=== PATIENT | female | born 1955 | race Caucasian/White ===

== ENCOUNTER 2019-03-06 14:00 | Outpatient (RCR) | payer SELFPAY ==
--- NOTE | 2019-01-20 13:52 | HP.OTEVAL_ITS ---
Patient's Visit Information MARTINE LANDAVERDE is a 63 year old F, referred to Occupational Therapy by Tyron Sams PA-C, with a diagnosis of CMC arthoplasty. Date of Evaluation: 01/20/19 Occupational Therapist: Emma Santa, OTR/L - Subjective Subjective: Martine Alexandra arrived at OT evaluation and s/p CMC arthroplasty. She is 4 weeks post-op. 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 She noted she is off work until March. - ADLs Dressing: Bra, Overhead shirt, Button shirt, Pants, Socks, Shoes, Necklace, Earrings Fasteners: Tie shoes, Buttons, Snaps, [place], Belt Eating: Use silverware, Cut food Bathing: Handle washcloth & soap, Wash hair Toileting: Manage clothing Grooming: Squeeze toothpaste on, [place] teeth Kitchen: Chop with knife, Peel fruits & vegetables, Open jars, Open bottle caps, Ziplock bags, Lift gallon of milk, Pour from pitcher, Take dish out of oven Household: Vacuum, Sweep/mop, Laundry Yard: [place], [place], Use pruners Miscellaneous: Start car, Open medication bottle, Hold change, Open doors/Including car door, Do crafts, Sew, Bandar/knit/needlework, Drive Comments: Limited in work with toddlers. - Pain L CMC 3 Pain Intensity Range: 3, 7 - ROM Shoulder: WFL Elbow: WFL Forearm: WFL Wrist: flexion R 0-55, L 0-85 ; ext R 0-47, L 0-30 CMC: opposition R 0-19, L 0-14- unable to completed thumb opposition to PF with MP: R 0-80, L -20-0-10 IP: R 0-53, L 0-51 Radial Abduction: R 0-47, L 0-39 MP: WFL PIP: WFL DIP: WFL ROM Comments: Increased collapsing of MP joint. Unable to completed thumb opposition to PF on L side only. - Strength Train Planner: R 60, L 31 lbs Lateral Pinch: R 9, L 1 lbs Tripod Pinch: Held Tip-to-Tip Pinch: Held - Edema Proximal Phalanx: R 6.5 cm, 7.3 cm - Quick DASH-Disab of Arm,Shoulder& Hand Quick DASH Score: 70.0000 - Goals Goal:: Олег to increase L red hat linux engineer and fx pinches to 60% of R red hat linux engineer 4/5 trials 80% of the time to promote increased strength and stability of L CMC by d/c. Goal:: Олег to have no more than 1/10 painw ith repetitive movement 4/5 trials 80% of the time to promote returning to ADL?IADLs at PLOF by d/c. Goal:: Олег to completed daily scar massage to promote decrease risk of increased scar tissue 4/5 trials 80% of the time by d/c. Goal:: Олег to be (I) to complete correct positioning of CMC to and thumb mechanics to promote increased joint inetgrity 4/5 trials 80% of the time by d.c. Goal:: Олег to be (I) to return to all ADl/IADls including cutting and peel food, compleiting sewing tasks,a nd completed gardening tasks 4/5 trials 80% of the time with good thumb mechanics and joint protection techniques 4/5 trials 80% of the time by d/c. Goal:: Олег to be mod I to complete daily HEP with PRE 4/5 trials 80% of the time to promote return to PLOF by d/c. - Rehabilitation General Assessment: Олег arrived and is s/p CMC arthroplasty performed by Dr. Shah end of December. She is four weeks post op. Bath exhibit increased hyperextension of MP joint with increased pain with movements. Structures of thumb are still healing and she exhibits decreased strength, ROM, and ability to complete functional and leisure interests. Skilled OT warranted for 2x weekly for 4 weeks to promote increased ROM, Strength, and general ability to complete ADL/IADls. Will likely need to see for longer than 4 weeks but will reassess post 4 weeks of skilled therapy. Rehabilitation Potential: Good - Anticipated Interventions Anticipated Interventions: A/AAROM/PROM, Strengthening, Edema Control, Scar Care, Massage, Desensitization, Wound Care, Modalities, Orthoses, Joint Protection/Energy Conservation, Ergonomic Education, Fine Motor Coord/Bradley, ADL Training, Caregiver Training, Home Program - Visit Plan Frequency: 2x /Week Duration: 4 Weeks General Plan: OT to work on edema management as needed, pain management as needed, scar massage, PRE for strength, ROM, and thumb mechanics and po sitioning to return to ADL/IADls at PLOF. TEXT: Thank you for the opportunity to evaluate your patient. For Medicare and Medicare HMO plans, please review the plan of care and approve it. It will need to be FAXED BACK to us at [phone] for Medicare purposes. Please let me know if there are questions or concerns regarding this plan of care. Physician Signature: Date:
--- NOTE | 2019-03-06 18:03 | HP.OTREVAL ---
Tyron Sams PA-C, It has been my pleasure to treat EPI LANDAVERDE over the last 5 visits for CMC arthoplasty. Please see the progress note below for an update on the occupational therapy plan of care! Subjective: Олег arrived at appointment and noted today might be last day due to lack of insurance coverage. She noted she feels she has made 60% improvement. She noted pain consistently around 2/10. She is 9 weeks post op. Objective/Function: Completed measurements today of 03/06/19: RoM. Thumb. - opposition: R WFL, L 0-47. - radial adduction: R WFL, L 0-45. Strength: automotive design drafter R WFL, L 40. lateral R WFL, L 2. tripod R WFL, L 3. She has progressed since initial evaluation. Significantly hyperextension noted at MP of L thumb. OT attempted to make oval 8 to promote decrease collapse and reduce discomfort. She is to trial. Plan Frequency: 1x/Week Duration: 4 Weeks Visits in this POC: 8 Plan: Follow up as needed with insurance coverage. She completed 5/8 appointments and is currently 9 weeks post op. Will keep chart open for the next month. If she does not return to due to finances will d/c'd. She is to call questions/concerns and has OT card to email/call as needed. HEP has been set up over the course of treatment to promote progressing with strengthening tasks. Goals - Goals Goal:: Олег to increase L automotive design drafter and fx pinches to 60% of R automotive design drafter 4/5 trials 80% of the time to promote increased strength and stability of L CMC by d/c. Goal:: Олег to have no more than 1/10 painw ith repetitive movement 4/5 trials 80% of the time to promote returning to ADL?IADLs at OF by d/c. Goal:: Олег to completed daily scar massage to promote decrease risk of increased scar tissue 4/5 trials 80% of the time by d/c. Goal:: Олег to be (I) to complete correct positioning of CMC to and thumb mechanics to promote increased joint inetgrity 4/5 trials 80% of the time by d.c. Goal:: Олег to be (I) to return to all ADl/IADls including cutting and peel food, compleiting sewing tasks,a nd completed gardening tasks 4/5 trials 80% of the time with good thumb mechanics and joint protection techniques 4/5 trials 80% of the time by d/c. Goal:: Олег to be mod I to complete daily HEP with PRE 4/5 trials 80% of the time to promote return to PLOF by d/c. Anticipated Interventions Anticipated Interventions: A/AAROM/PROM, Strengthening, Edema Control, Scar Care, Massage, Desensitization, Wound Care, Modalities, Orthoses, Joint Protection/Energy Conservation, Ergonomic Education, Fine Motor Coord/Bradley, ADL Training, Caregiver Training, Home Program Please do not hesitate to contact me at [phone] by phone or if you have questions or concerns regarding this new plan of care! Sincerely, Emma Santa, OTR/L
--- NOTE | 2019-05-01 12:31 | HP.OTDCSUM_ITS ---
HP - OT D/C Summary It has been my pleasure to treat EPI LANDAVERDE under orders from Tyron Sams PA-C, for the diagnosis of CMC arthoplasty for a total of 5 visit(s). Please see the following information for a summary of their discharge status. - Overall Improvement % Improvement: 60 - Objective Objective/Function: Completed measurements today of 03/06/19: RoM. Thumb. - opposition: R WFL, L 0-47. - radial adduction: R WFL, L 0-45. Strength: frontload driver R WFL, L 40. lateral R WFL, L 2. tripod R WFL, L 3. She has progressed since initial evaluation. Significantly hyperextension noted at MP of L thumb. OT attempted to make oval 8 to promote decrease collapse and reduce discomfort. She is to trial. - Goals Patient Goals: Regain Mobility, Regain Strength, Decrease Pain, Return to Work, Decrease Swelling/Stiffness, Improve Fine Motor Skills, Use Hand/Wrist/Arm Normally Again, Sleep Better, Be More Independent in ADLS, Decrease Sensitivity, Resume Former Household Responsibilities (Cooking,Cleaning,Yard, etc.), Resume Hobbies Goal:: Олег to increase L frontload driver and fx pinches to 60% of R frontload driver 4/5 trials 80% of the time to promote increased strength and stability of L CMC by d/c. Goal:: Олег to have no more than 1/10 painw ith repetitive movement 4/5 trials 80% of the time to promote returning to ADL?IADLs at PLOF by d/c. Goal:: Олег to completed daily scar massage to promote decrease risk of increased scar tissue 4/5 trials 80% of the time by d/c. Goal:: Олег to be (I) to complete correct positioning of CMC to and thumb mechanics to promote increased joint inetgrity 4/5 trials 80% of the time by d.c. Goal:: Олег to be (I) to return to all ADl/IADls including cutting and peel food, compleiting sewing tasks,a nd completed gardening tasks 4/5 trials 80% of the time with good thumb mechanics and joint protection techniques 4/5 trials 80% of the time by d/c. Goal:: Олег to be mod I to complete daily HEP with PRE 4/5 trials 80% of the time to promote return to PLOF by d/c. - Plan Plan: She was to follow up as needed with insurance coverage; no follow up scheduled and chart will be d/c'd. She completed 5/8 appointments and is currently 9 weeks post op. Will keep chart open for the next month. If she does not return to due to finances will d/c'd. She is to call questions/concerns and has OT card to email/call as needed. HEP has been set up over the course of treatment to promote progressing with strengthening tasks. - D/C Information If there are questions or concerns regarding this patient's occupational therapy, please fell free to call me at [phone]. Thank you for the referr al of this patient. Sincerely, Emma Santa, OTR/L
== END 2019-03-06 19:00 | disposition home or self-care (01) ==
LOC: OT 14:00
PROVIDERS: Family Provider Internal Medicine; PCP Internal Medicine; Referring Provider Physician Assistant Surgical; Visit Provider Physician Assistant Surgical
DX: M18.12 Unilateral primary osteoarthritis of first carpometacarpal joint, left hand (principal)
CPT/HCPCS: 97110; 97166; 97530; 97760

== ENCOUNTER 2020-06-13 09:21 | Outpatient (RCR) | payer MEDICARE, SELFPAY ==
[2016-11-19 15:11] VITALS: BMI 25.9
[2020-06-13] MEDS: COVID-19 VACC, MRNA(PFIZER)/PF 30 MCG/0.3 ML SYRINGE IM (13:16)
[2020-07-04] MEDS: COVID-19 VACC, MRNA(PFIZER)/PF 30 MCG/0.3 ML SYRINGE IM (13:22)
== END 2020-09-10 23:59 ==
LOC: IMMUN 09:21
PROVIDERS: PCP Internal Medicine; Referring Provider Family Medicine; Visit Provider Family Medicine
DX: Z23 Encounter for immunization (principal)
CPT/HCPCS: 0001A; 0002A; 91300

== ENCOUNTER 2023-10-01 06:00 | Day surgery (SDC) | payer MEDICARE, OTHER, SELFPAY ==
[2023-10-01] VITALS (14 sets, daily range): BP systolic 101–127; BP diastolic 53–79; PULSE 69–83; RESP 16; TEMP 36.4–36.9; O2SAT 93–98; BMI 27.6
--- NOTE | 2023-10-01 06:30 | RAD_ITS ---
STUDY: X-RAY - LEFT FOOT CLINICAL: Female, 67 years old. LEFT FOOT OSTEOTOMY TECHNIQUE: 4 fluoroscopic spot films of the left foot. COMPARISON: None. FINDINGS: Normal visualized tarsal bones. Normal visualized tarsometatarsal articulations. There is degenerative arthrosis at the first MTP joint. There is a fracture/deformity through the fifth metatarsal neck, with medial angulation, probably related to osteotomy. There is chronic deformity of the fifth proximal phalanx. RAD/Foot 2 Views IMPRESSION: Fracture/deformity through the fifth metatarsal neck, with medial angulation, probably related to osteotomy. Chronic deformity of the fifth proximal phalanx. Soft tissue swelling around the fifth MTP joint. Electronically Signed: Kurtis Garcia MD at 9:37 EDT ,
[2023-10-01] MEDS: Lactated Ringers 1,000 ML 15 ML IV (06:42)
--- NOTE | 2023-10-01 07:30 | PCM.PRE.AN2 ---
ASA Classification* ASA Classification ASA Classification: 2 Assessment & Plan Anesthesia* Anesthesia Assessment Anesthesia Assessment: Discussed sedation and/or anesthesia options, risks, benefits, and alternatives with patient/parents/legal guardian/POA. Questions invited. The patient/parents/legal guardian/POA seems to understand and agrees to proceed with anesthesia plan. Reviewed the physical assessment, medical history, allergy history and patient home medications list prior to surgery/procedure/anesthetic and documented any changes. Performed airway and anesthesia risk assessments. 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 When Was Last Pacemaker Check QUESTION #4 FULL TEXT: You/Your Family Experience fever (hyperthermia) with Anesthesia Last Oral Intake Last Oral intake: Last Oral Intake NPO since 00:00 10/01/23 06:46 Meds taken in AM with sips of Yes 10/01/23 06:46 water? Meds patient instructed to lisinopril 10/01/23 06:46 take am of surgery tramadol gabapentin PONV PONV - aircraft structure mechanic: PONV - aircraft structure mechanic Female Yes 09/24/23 09:20 HX of Motion Sickness Yes 09/24/23 09:20 HX of N/V After Surgery Yes 09/24/23 09:20 Non-Smoker Yes 09/24/23 09:20 Duration of Surgery greater Yes 09/24/23 09:20 than 60 minutes Number of Risk Factors 5 09/24/23 09:20 PONV Score Severe Risk 09/24/23 09:20 Height & Weight Height & Weight: Anesthesia: Height & Weight Height 5 ft 7 in 10/01/23 06:46 Weight: 80 kg 10/01/23 06:46 Body Mass Index (BMI) 27.6 10/01/23 06:46 Respiratory Assessment Respiratory Assessment - aircraft structure mechanic: Respiratory Tract Infection Hx - aircraft structure mechanic Hx Respiratory Tract Infection No 09/24/23 09:20 STOP Sleep Apnea STOP Sleep Apnea - aircraft structure mechanic: STOP Sleep Apnea - aircraft structure mechanic Hx Hypertension Yes: CONTROLLED WITH MED 09/24/23 09:20 Hx Sleep Apnea Yes 09/24/23 09:20 CPAP Yes 09/24/23 09:20 BIPAP No 09/24/23 09:20 Do you snore loudly (louder than talking or can be heard Do you often feel tired/ fatigued/ sleepy during daytime? Has anyone observed you stop breathing during sleep? STOP Results Positive 09/24/23 09:20 QUESTION #5 FULL TEXT : Do you snore loudly (louder than talking or can be heard through closed doors)? 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 Specify any problems Hx of Preganancy in last 3 No 09/24/23 09:20 Months Nurse Filling Out Transfusion DSCHRIBER 09/24/23 09:20 & Questions: Date: 09/24/23 09/24/23 09:20 Time: 09/24/23 09:20 Patient unable to answer at this time (ie. confused, unrespo /Reproduction History /Reproductive History - aircraft structure mechanic: /Reproductive Hx- aircraft structure mechanic Hx Now No 09/24/23 09:20 Gestational Age (in weeks): EDC: Hx Hx Para Hx Section SAB No 09/24/23 09:20 Active Medications Active Medications: Current Medications Generic Name Dose Route Start Last Admin Trade Name Freq PRN Reason Stop Dose Admin Cefazolin Sodium 2 gm/ Sodium 110 mls @ 150 mls/hr 10/01/23 07:30 Chloride IV 10/01/23 08:13 PREOP ONE Lactated Ringer's 1,000 mls @ 15 mls/hr 10/01/23 06:15 10/01/23 06:42 IV 15 mls/hr .Q48H JANI Administration PFSH Medical History Post-menopausal Depression Anxiety Arthritis Anemia High cholesterol Back pain Injury of back Injury of head and neck Non-smoker CPAP (continuous positive airway pressure) dependence History of pain when walking Cardiology follow-up encounter History of echocardiogram History of stress test Hypertension Home Medications ?Medication ?Instructions ?Recorded ?Last Taken ?Type diclofenac sodium 100 mg 75 mg PO BID 11/19/16 09/30/23 History tablet,extended release 24 hr tizanidine 4 mg tablet 4 mg PO QHS 11/19/16 09/30/23 History venlafaxine 150 mg tablet,extended 150 mg PO BID 11/19/16 09/30/23 History release 24 hr antiarthritic combination no.2 900 900 mg PO BID 12/02/20 09/30/23 History mg tablet (glucosamine-chondroitin) cholecalciferol (vitamin D3) 50 50 mcg PO DAILY 12/02/20 09/30/23 History mcg (2,000 unit) capsule ferrous gluconate 324 mg (37.5 mg 324 mg PO SUMOWEFR 12/02/20 09/29/23 History iron) tablet fluticasone propionate 50 1 spray intranasal DAILY 12/02/20 09/30/23 History mcg/actuation nasal spray,suspension (Flonase Allergy Relief) folic acid 400 mcg tablet 0.4 mg PO DAILY 12/02/20 09/30/23 History gabapentin 400 mg capsule 400 mg PO 4X/DAY 12/02/20 10/01/23 History magnesium citrate 100 mg capsule 100 mg PO DAILY 12/02/20 09/30/23 History melatonin 10 mg capsule 10 mg PO QHS PRN PRN sleep 12/02/20 09/30/23 History tramadol 50 mg tablet 50 mg PO BID PRN PRN pain 12/02/20 10/01/23 History vitamin E mixed 400 unit capsule 400 unit PO DAILY 12/02/20 09/30/23 History lisinopril 10 mg tablet 10 mg PO DAILY 08/13/21 10/01/23 History aspirin 81 mg tablet,delayed 81 mg PO DAILY 09/24/23 09/30/23 History release (Adult Low Dose Aspirin) calcium carbonate 600 mg PO QHS 09/24/23 09/30/23 History clobetasol 0.05 % topical ointment 1 applic topical MOWEFR 09/24/23 09/29/23 History rosuvastatin 5 mg tablet 5 mg PO QHS 09/24/23 Unknown History turmeric 400 mg capsule 500 mg PO DAILY 09/24/23 09/30/23 History Allergy/AdvReac Type Severity Reaction Status Date / Time Sulfa (Sulfonamide Allergy Hives Verified 09/24/23 09:13 Antibiotics) Family History Mother Heart disease Surgical History History of esophagogastroduodenoscopy (EGD) Hx of colonoscopy Hx of left cataract extraction Hx of right cataract extraction Hx of spinal surgery Hx of thumb surgery History of bunionectomy of right great toe Hx of ovarian cystectomy Hx of cervical spine surgery Hx of hand surgery History of bunionectomy of left great toe History of bunionectomy of left great toe Social History household members: spouse Smoking Status: Never smoker Review of Systems (Anesthesia) ROS Narrative System reviewed and no additional complaints, except as documented.
[2023-10-01] MEDS: Cefazolin 2 GM in 0.9% Normal Saline (100mL Bag) 100 ML IV (07:38)
[2023-10-01] MEDS: Bupivacaine Mpf 0.5% 30 ML VIAL (07:50)
--- NOTE | 2023-10-01 08:35 | PCM.POST.ANE ---
Anesthesia: Postop Eval I Current Vital Signs Temperature: 97.6 F Pulse Rate: 82 Blood Pressure: 127/65 Respiratory Rate: 16 Pulse Ox: 93 Oxygen Delivery Method: Room Air Assessment Airway patent: Yes Spontaneous unlabored respirations: Yes Mental status: Awake and Calm nausea: No Vomiting: No Anesthesia Complication: No Fluid Hydration Crystalloid volume administer (ml): 700 Total IV fluid infused: 700 Progress Note Anesthesia document: Postop Eval 1 completed: Yes
--- NOTE | 2023-10-01 08:38 | PCM.OPRPT ---
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: (4) Pain in left foot: Report of Operation Date of Procedure: 10/01/23 Pre-Operative Diagnosis: 1) pain left foot 2) dorsiflexory contracture left fifth digit 3) breaking metatarsalgia left fifth metatarsal with additional sagittal plane plantarflexion producing painful plantar prominence Post-Operative Diagnosis: Same Surgery/Procedure Performed:: 1) soft tissue contracture release and scar remodeling via Z-plasty extensor tenotomy and dorsal medial lateral capsulotomy of the fifth metatarsal phalangeal joint 2) lesser metatarsal osteotomy, left fifth metatarsal Description of Surgical Findings:: Patient has had 2 previous tailor's bunion and hammertoe contracture correction surgeries which have failed and led to a shortened fifth ray and a plantarflexed 3 deformity of the fifth ray causing a painful prominence of the fifth metatarsal head during ambulation. I discussed multiple options with the patient during the preoperative course including performing a bone lengthening procedure using a Monorail external fixator but discussed that this would only provide approximately up to 1 cm of lengthening and would take months of care. Patient refused this option. I discussed acute bone lengthening which I did additionally would limit the amount of lengthening could be performed due to soft tissue contracture and possible vascular compromise. Patient deferred this. So, it was discussed performing a floating metatarsal osteotomy to offload the fifth painful fifth metatarsal head and bring down the cocked up fifth of toe via Z-plasty extensor tenotomy and dorsal medial and lateral capsulotomy of the fifth metatarsal phalangeal joint. Patient was agreeable to this. Surgeon: Ghulam Mcclain cash register mechanic: None (krystina) Type of Anesthesia: General Special Medications: 20cc 0.5% marcaine plain Specimen's removed: none Drains: none Estimated Blood Loss (mL): minimal Description of Procedure: Patient brought back the operating placed complete supine position on the operating room table. Patient induced under general anesthesia. Well-padded left ankle tourniquet was applied. Preoperatively 20 cc of half percent Marcaine plain were injected in a reverse Hugo block technique. Left lower extremity scrubbed prepped draped using typical aseptic fashion. Once cleared by anesthesia left lower extremity was elevated exsanguinated tourniquet was inflated to 250 mmHg Procedure #1: Z-plasty with extensor tendon tenotomy and dorsal medial lateral capsulotomy of the fifth metatarsal phalangeal joint Once cleared by anesthesia a Z-plasty was drawn along the length of the contracture spanning 2 cm. Equal length arms from the distal and proximal aspect were drawn at a less than 60 degree angle and these incisions were made with a 15 blade through epidermis into subcutaneous tissue. Blunt dissection was taken down to level of deep fascia and the flaps were undermined and mobilized without intervening any vascularity. The extensor tendon was identified including the extensor digitorum longus and brevis these were transected using a 15 blade which allowed for partial reduction of the hammertoe contracture at the fifth metatarsal phalangeal joint. Additionally using Kelikian push-up test a dorsal subtle medial and lateral fifth metatarsal phalangeal joint capsulotomy was performed using a #15 blade without incident. Additional reduction was noted at this time. To correct for the fifth metatarsal head plantar flexor deformity secondary to an Atragen iatrogenic deformity from previous tailor's bunionectomy a floating metatarsal osteotomy would be performed. Procedure #2 lesser metatarsal osteotomy, left fifth metatarsal head: A linear incision was made along the fifth metatarsal periosteum was dissected off in a transverse osteotomy was performed with a sagittal saw through and through from dorsal to plantar. The fifth metatarsal head was then mobilized in the sagittal plane and noted to offload the painful plantar area. All incisions were flushed with copious amounts of normal sterile saline and skin closure was performed exclusively using 4-0 Monocryl. Incisional site dressed with Betadine Adaptic 4 x 4's Kerlix and a Raman bandage. Patient was transported to PACU vital signs stable and vascular status intact all digits for further monitoring prior to discharge. Patient tolerated procedure and anesthesia well apparent satisfactory condition. No complications Adequate reduction fifth metatarsal toe deformity. Again this was not for lengthening purposes and patient will continue have a break and metatarsalgia.
--- NOTE | 2023-10-01 08:57 | PCM.POSTANE2 ---
Anesthesia Postop Eval I Sum Postop Eval Completion status Anesthesia document: Postop Eval 1 completed: Yes Anesthesia Postop Eval I Summary Anesthesia Postop Eval I Summary: Anesthesia Postop Eval I: Assessment Summary Airway patent Yes 10/01/23 08:37 Spontaneous unlabored Yes 10/01/23 08:37 respirations Mental status Awake,Calm 10/01/23 08:37 nausea No 10/01/23 08:37 Vomiting No 10/01/23 08:37 Anesthesia Postop Eval I: Fluid Summary Crystalloid volume administer 700 10/01/23 08:37 (ml) Colloids volume administered ( ml) Blood Product volume administered (ml) Total IV fluid infused 700 10/01/23 08:37 Anesthesia Postop Eval I: Summary Notes Anesthesia Complication No 10/01/23 08:37 Anesthesia Complication Comment: Post-operative progress note Anesthesia: Postop Eval II Evaluation Mental status: Awake Pain Level: 0 nausea: No Vomiting: No
--- NOTE | 2023-10-01 09:00 | RAD_ITS ---
STUDY: X-RAY - LEFT FOOT CLINICAL: Female, 67 years old. Left foot surgery. TECHNIQUE: 2 views of the left foot. COMPARISON: None. FINDINGS: Normal talus, calcaneus, and tarsal bones. Normal visualized subtalar, talonavicular, calcaneocuboid, tarsal and tarsometatarsal articulations. Normal metatarsi. Normal metatarsophalangeal joint of the great toe. Normal tibial and fibular sesamoid bones. Normal interphalangeal joint of the great toe. Normal phalanges of the great toe. Normal second through fourth metatarsophalangeal joints. Normal interphalangeal joints and phalanges of the second through fourth toes. There is a smooth transverse fracture/deformity through the fifth metatarsal neck, with medial angulation, which could be posttraumatic/surgical. There is also chronic deformity of the fifth proximal phalanx. There is soft tissue swelling around the fifth MTP joint. RAD/Foot 2 Views IMPRESSION: Smooth transverse fracture/deformity through the fifth metatarsal neck, with medial angulation, which could be posttraumatic/surgical. Chronic deformity of the fifth proximal phalanx. Soft tissue swelling around the fifth MTP joint. Electronically Signed: Kurtis Garcia MD at 9:28 EDT ,
== END 2023-10-01 11:44 | disposition home or self-care (01) ==
LOC: SDC 06:01 → AC 06:03
PROVIDERS: PCP Internal Medicine; Referring Provider Podiatrist; Visit Provider Podiatrist
PROC: (CPT 28234; principal; 2023-10-01 07:15)
DX: M20.42 Other hammer toe(s) (acquired), left foot (principal); M24.575 Contracture, left foot; G47.33 Obstructive sleep apnea (adult) (pediatric); D64.9 Anemia, unspecified; F32.A Depression, unspecified; F41.9 Anxiety disorder, unspecified; E78.00 Pure hypercholesterolemia, unspecified; I10 Essential (primary) hypertension; Z79.899 Other long term (current) drug therapy
CPT/HCPCS: 28234; 28270; 28308; 01470; 73620; 76000; J7120; J2405

== ENCOUNTER 2024-06-21 13:00 | Outpatient (CLI) | payer MEDICARE, OTHER, SELFPAY ==
--- NOTE | 2024-06-27 13:00 | EKG12_ITS ---
Test Reason : PREOP Blood Pressure : */* mmHG Vent. Rate : 82 BPM Atrial Rate : 82 BPM P-R Int : 176 ms QRS Dur : 100 ms QT Int : 390 ms P-R-T Axes : 60 207 4 degrees QTcB Int : 455 ms Normal sinus rhythm Possible Right ventricular hypertrophy Possible Lateral infarct , age undetermined Inferior infarct , age undetermined Abnormal ECG Confirmed by AVIS AGUILAR, KENDALL ([id number]), assistant editor TORIBIO ROBB ([id number]) on 06/28/2024 7:19:40 AM Referred By: Yon Shah Confirmed By: KENDALL ALBARRAN MD
[2024-06-27 13:33] LABS: Absolute Lymphocyte Count 2.31 X10^3/uL (0.83-4.51); Absolute Neutrophil Count 10.2 X10^3/uL (2.0-7.7); Basophil# 0.03 X10^3/uL; Basophil% 0.2 % (0-1); Eosinophil# 0.07 X10^3/uL; Eosinophils% 0.5 % (0-5); Hematocrit 36.7 % (37-47); Hemoglobin 11.2 g/dL (12.0-15.0); Lymphocyte # 2.31 X10^3/ul (0.83-4.51); Lymphocyte % 17.1 % (19-41); Mean Corp Hgb Conc 30.5 g/dL (32-36); Mean Corpuscular Volume 78.8 fL (81-99); Mean Platelet Vol. 8.6 fl (6.2-12.0); Monocyte# 0.85 X10^3/uL; Monocyte% 6.3 % (0-10); NRBC Flagged by Analyzer 0 % (0-5); Neutrophil # 10.16 X10^3/uL (2.7-7.7); Neutrophil % 75.5 % (47-70); Platelet Count 412 K/mm3 (150-450); RBC Distribution Width SD 39.7 fl (35.1-43.9); Red Blood Count 4.66 M/mm3 (4.2-5.4); White Blood Count 13.5 K/mm3 (4.4-11.0)
[2024-06-27 14:39] LABS: Albumin, Serum 4.3 g/dL (3.4-4.8); Anion Gap 12 (5-15); BUN 16 mg/dL (4-19); BUN/Creat Ratio 14.8 RATIO (10-20); Carbon Dioxide 22.8 mmol/L (21.0-32.0); Chloride 100 mmol/L (98-108); Creatinine, Serum 1.06 mg/dL (0.70-1.20); EST Glomerular Filtration Rate 57 (>60); Glucose 99 mg/dL (70-99); Potassium 4.2 mmol/L (3.3-5.1); Sodium Level 135 mmol/L (133-145)
[2024-06-27 15:22] LABS: Magnesium 2.4 mg/dL (1.5-2.2)
--- NOTE | 2024-06-28 10:48 | PAT.ANESEVAL ---
Pre-Assessment Diagnosis/Proposed Procedure Planned Operative Procedure(s): ROBOTIC ASSISTED RIGHT TOTAL KNEE ARTHROPLASTY Anesthesia History Anesthesia History - informatics pharmacist: Anesthesia History - informatics pharmacist Hx Hospitalization No 06/21/24 13:04 Any Problems With Anesthesia Yes: N,V IN PAST 06/21/24 13:04 Cholinesterase deficiency No 06/21/24 13:04 You/Your Family Experience No 06/21/24 13:04 fever (hyperthermia) with Relationship Recent Exposure to Contagious No 10/01/23 06:44 Disease Does patient have nerve Yes: NERVE STIMULATOR 06/21/24 13:04 stimulator Patient instructed to have device shut off --Does patient have Pacemaker or ICD? When Was Last Pacemaker Check QUESTION #4 FULL TEXT: You/Your Family Experience fever (hyperthermia) with Anesthesia Last Oral Intake Last Oral intake: Last Oral Intake NPO since Meds taken in AM with sips of water? Meds patient instructed to take am of surgery PONV PONV - informatics pharmacist: PONV - informatics pharmacist Female Yes 06/21/24 13:04 HX of Motion Sickness Yes 06/21/24 13:04 HX of N/V After Surgery Yes 06/21/24 13:04 Non-Smoker Yes 06/21/24 13:04 Duration of Surgery greater Yes 06/21/24 13:04 than 60 minutes Number of Risk Factors 5 06/21/24 13:04 PONV Score Severe Risk 06/21/24 13:04 Height & Weight Height & Weight: Anesthesia: Height & Weight Height 5 ft 7 in 04/20/24 10:48 Respiratory Assessment Respiratory Assessment - informatics pharmacist: Respiratory Tract Infection Hx - informatics pharmacist Hx Respiratory Tract Infection No 06/21/24 13:04 STOP Sleep Apnea STOP Sleep Apnea - informatics pharmacist: STOP Sleep Apnea - informatics pharmacist Hx Hypertension Yes: CONTROLLED WITH MED 06/21/24 13:04 Hx Sleep Apnea Yes 06/21/24 13:04 CPAP Yes 06/21/24 13:04 BIPAP No 06/21/24 13:04 Do you snore loudly (louder than talking or can be heard Do you often feel tired/ fatigued/ sleepy during daytime? Has anyone observed you stop breathing during sleep? STOP Results Positive 06/21/24 13:04 QUESTION #5 FULL TEXT : Do you snore loudly (louder than talking or can be heard through closed doors)? 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 Specify any problems Hx of Preganancy in last 3 No 06/21/24 13:04 Months Nurse Filling Out Transfusion DSCHRIBER 06/21/24 13:04 & Questions: Date: 06/21/24 06/21/24 13:04 Time: 13:05 06/21/24 13:04 Patient unable to answer at this time (ie. confused, unrespo /Reproduction History /Reproductive History - informatics pharmacist: /Reproductive Hx- informatics pharmacist Hx Now No 06/21/24 13:04 Gestational Age (in weeks): EDC: Hx Hx Para Hx Section SAB No 06/21/24 13:04 PFS Medical History (Updated 06/25/24 @ 08:53 by Justine Romano [facility]) Wears glasses Low iron History of IBS Heartburn Leg cramps Post-menopausal Depression Anxiety Arthritis High cholesterol Back pain Injury of back Injury of head and neck Non-smoker CPAP (continuous positive airway pressure) dependence Cardiology follow-up encounter History of echocardiogram History of stress test Hypertension Home Medications ?Medication ?Instructions ?Recorded ?Last Taken ?Type diclofenac sodium 100 mg 75 mg PO BID 11/19/16 09/30/23 History tablet,extended release 24 hr venlafaxine 150 mg tablet,extended 150 mg PO BID 11/19/16 09/30/23 History release 24 hr antiarthritic combination no.2 900 900 mg PO BID 12/02/20 09/30/23 History mg tablet (glucosamine-chondroitin) cholecalciferol (vitamin D3) 50 50 mcg PO DAILY 12/02/20 09/30/23 History mcg (2,000 unit) capsule ferrous gluconate 324 mg (37.5 mg 324 mg PO DAILY 12/02/20 09/29/23 History iron) tablet fluticasone propionate 50 1 spray intranasal DAILY 12/02/20 09/30/23 History mcg/actuation nasal spray,suspension (Flonase Allergy Relief) folic acid 400 mcg tablet 0.4 mg PO DAILY 12/02/20 09/30/23 History gabapentin 400 mg capsule 400 mg PO 4X/DAY 12/02/20 10/01/23 History magnesium citrate 100 mg capsule 100 mg PO DAILY 12/02/20 09/30/23 History melatonin 10 mg capsule 10 mg PO QHS PRN PRN sleep 12/02/20 09/30/23 History tramadol 50 mg tablet 50 mg PO BID PRN PRN pain 12/02/20 10/01/23 History vitamin E mixed 400 unit capsule 400 unit PO DAILY 12/02/20 09/30/23 History lisinopril 10 mg tablet 10 mg PO DAILY 08/13/21 10/01/23 History calcium carbonate 600 mg PO QHS 09/24/23 09/30/23 History clobetasol 0.05 % topical ointment 1 applic topical MOWEFR 09/24/23 09/29/23 History rosuvastatin 5 mg tablet 5 mg PO QHS 09/24/23 Unknown History turmeric 400 mg capsule 500 mg PO DAILY 09/24/23 09/30/23 History ascorbic acid (vitamin C) 1,000 mg 1,000 mg PO DAILY 06/21/24 Unknown History tablet,extended release (C Complex) aspirin 81 mg capsule 81 mg PO DAILY 06/21/24 Unknown History Allergy/AdvReac Type Severity Reaction Status Date / Time Sulfa (Sulfonamide Allergy Hives Verified 06/21/24 12:54 Antibiotics) Family History Mother Heart disease Surgical History (Updated 06/21/24 @ 13:12 by Karin Olmstead) History of toe surgery History of esophagogastroduodenoscopy (EGD) Hx of colonoscopy Hx of left cataract extraction Hx of right cataract extraction Hx of spinal surgery Hx of thumb surgery History of bunionectomy of right great toe Hx of ovarian cystectomy Hx of cervical spine surgery Hx of hand surgery History of bunionectomy of left great toe History of bunionectomy of left great toe Social History household members: spouse Smoking Status: Never smoker Audit: Pertinent Findings Pertinent Findings EKG Perinent findings: 06/27/2024. Normal sinus rhythm 82 bpm. Possible ventricular hypertrophy. Possible lateral and inferior infarct, age undetermined. Recommendation Anesthesia Recommendation Anesthesia recommendation: OPTIMIZED for anesthesia
== END 2024-06-21 19:00 | disposition home or self-care (01) ==
LOC: SDC 02-15 11:14
PROVIDERS: Anesthesiology; PCP Internal Medicine; Referring Provider Specialist; Visit Provider Specialist
DX: Z01.818 Encounter for other preprocedural examination (principal)
CPT/HCPCS: 36415; 80048; 82040; 83735; 85025; 87081; 93005

== ENCOUNTER → 2024-06-26 | Outpatient (CLI) | payer MEDICARE, OTHER, SELFPAY ==
--- NOTE | 2024-06-26 13:09 | CT_ITS ---
EXAM: [facility] protocol CT right knee CLINICAL HISTORY: Mir renee, preoperative COMPARISON: None provided. TECHNIQUE: [facility] protocol CT right knee series. FINDINGS: Limited imaging of the right hip shows no significant abnormality. Limited imaging of the right ankle shows no significant abnormality. The right knee demonstrates [id number] tricompartmental degenerative changes, with severe patellofemoral joint narrowing and at least moderate joint narrowing (nonweightbearing) in the medial and patellofemoral compartments. Multiple loose intra-articular bodies are seen posteriorly, as well as medially and laterally. No significant joint effusion is evident. CT/Extremity Lower without Contra IMPRESSION: Advanced right knee degenerative changes. Successful [facility] protocol. Reading Location: [id number]
== END | disposition home or self-care (01) ==
LOC: CT 13:06
PROVIDERS: PCP Internal Medicine; Referring Provider Specialist; Visit Provider Specialist
DX: M22.2X1 Patellofemoral disorders, right knee (principal); M23.41 Loose body in knee, right knee; M17.11 Unilateral primary osteoarthritis, right knee
CPT/HCPCS: 73700

== ENCOUNTER → 2024-07-07 | Outpatient (CLI) | payer MEDICARE, OTHER, SELFPAY ==
--- NOTE | 2024-07-07 08:53 | ECHOD_ITS ---
Reason For Study Reason For Study: ABN EKG Procedure This was a 2D Doppler, Color Flow transthoracic echocardiogram. Exam performed in department. Left Ventricle Normal LV size. Left ventricular systolic function is normal. The left ventricular ejection fraction is 60 %. Stage 1 diastolic dysfunction. No regional wall motion abnormalities noted. Right Ventricle Normal RV size. Normal systolic function. Atria Normal left atrium. Normal right atrium. Mitral Valve Normal mitral valve. Tricuspid Valve Normal tricuspid valve. Mild tricuspid valve insufficiency. Pulmonary artery systolic pressure is 24 mmHg. Aortic Valve Trisinus/trileaflet aortic valve. Pulmonic Valve Normal pulmonic valve. Great Vessels Normal aortic root. The pulmonary artery is normal size. Inferior vena cava collapse with respiration. Pericardium/Pleural No pericardial effusion. MMode/2D Measurements & Calculations LVIDd: 5.4 cm IVSd: 0.99 cm Ao root diam: 3.2 cm LVIDs: 3.8 cm LVPWd: 0.77 cm FS: 29.4 % LAV(MOD-bp): 63.5 ml LVAd ap4: 24.5 cm2 LVAd ap2: 24.6 cm2 LAV(MOD-bp) Indexed: 33.4 ml/m2 LVLd ap4: 7.5 cm LVLd ap2: 7.5 cm LAV(MOD-sp2): 55.8 ml EDV(MOD-sp4): 68.1 ml EDV(MOD-sp2): 66.6 ml LAV(MOD-sp4): 67.9 ml EDV(sp4-el): 67.3 ml EDV(sp2-el): 68.9 ml LVAs ap4: 14.5 cm2 LVAs ap2: 14.2 cm2 LVLs ap4: 6.5 cm LVLs ap2: 6.2 cm ESV(MOD-sp4): 28.2 ml ESV(MOD-sp2): 26.6 ml ESV(sp4-el): 27.4 ml ESV(sp2-el): 27.4 ml EF(MOD-sp4): 58.6 % EF(MOD-sp2): 60.1 % EF(sp4-el): 59.2 % SV(MOD-sp4): 39.9 ml SV(MOD-sp2): 40.0 ml SV(sp4-el): 39.9 ml SI(MOD-sp4): 21.0 ml/m2 SI(MOD-sp2): 21.1 ml/m2 LA A4 area: 20.6 cm2 LA dimension(2D): 4.0 cm RA A4 area: 14.6 cm2 TAPSE: 1.8 cm Time Measurements MV dec time: 0.21 sec Doppler Measurements & Calculations MV E max lacho: 59.9 cm/sec Lat Peak E' Lacho: 8.3 cm/sec Med Peak E' Lacho: 8.1 cm/sec MV A max lacho: 61.2 cm/sec E/E' lat: 7.2 E/E' med: 7.4 MV E/A: 0.98 MV V2 max: 78.3 cm/sec Ao V2 max: 112.1 cm/sec MV max P.5 mmHg MV dec slope: 279.6 cm/sec2 Ao max P.0 mmHg MV V2 mean: 45.4 cm/sec Ao V2 mean: 76.3 cm/sec MV mean P.97 mmHg Ao mean P.7 mmHg MV V2 VTI: 21.8 cm Ao V2 VTI: 24.6 cm AV (velocity ratio): 0.76 LV V1 max: 94.2 cm/sec PA V2 max: 140.8 cm/sec TR max lacho: 227.3 cm/sec LV V1 max P.5 mmHg PA V2 mean: 87.4 cm/sec TR max P.7 mmHg LV V1 mean P.9 mmHg LV V1 mean: 64.8 cm/sec LV V1 VTI: 18.8 cm ECHO/Echo Complete Interpretation Summary Normal LV size. Left ventricular systolic function is normal. The left ventricular ejection fraction is 60 %. Stage 1 diastolic dysfunction. Ordering Physician: JAEL TOVAR Referring Physician: Jael Tovar Performed By: Amelia Streeter, ARSENIO, RVT
== END | disposition home or self-care (01) ==
LOC: CVS 08:48
PROVIDERS: PCP Internal Medicine; Referring Provider Internal Medicine; Visit Provider Internal Medicine
DX: R94.31 Abnormal electrocardiogram [ECG] [EKG] (principal)
CPT/HCPCS: 93306

== ENCOUNTER → 2024-08-02 | Outpatient (CLI) | payer MEDICARE, OTHER, SELFPAY ==
--- NOTE | 2024-08-02 12:53 | STRESSREP ---
Stress Test Report Pharmacologic myocardial perfusion stress test. 68-year-old lady with a history of abnormal EKG Resting EKG demonstrates sinus bradycardia with a rate of 57 bpm. Resting blood pressure is 116/72 mmHg. 0.4 mg of regadenoson was infused per usual protocol followed by rapid intravenous saline flush injection. Continuous EKG monitoring was performed. The maximum heart rate was 84 bpm which was 55 to of max impacted heart rate the maximum workload was 1 metabolic equivalent. At rest there were no ST or T wave changes noted to suggest ischemia and at peak infusion nonspecific ST changes were noted which did not meet the criteria for ischemia. No clinical angina is noted. The final blood pressure was 112/62 mmHg. Myocardial perfusion protocol. 11 point mCi of technetium 99m sestamibi was injected at rest. 0.4 mg of regadenoson was infused per usual protocol. At peak infusion 33.1 mCi of technetium 99m sestamibi was injected stress images were obtained stress and rest images were reconstructed and compared in the short axis vertical long and horizontal long axis. Gated images were also obtained. Perfusion SPECT analysis: Review of the stress images demonstrate normal uptake of tracer noted in all areas of the myocardium. The resting images similar demonstrated normal uptake of tracer noted in all areas of the myocardium. No areas of reversibility are noted to suggest ischemia and no previous infarct is noted. Gated SPECT analysis: The gated ejection fraction is 75%. Conclusion: Normal pharmacologic myocardial perfusion stress test. Preserved ejection fraction.
== END | disposition home or self-care (01) ==
LOC: CVS 06:04
PROVIDERS: PCP Internal Medicine; Referring Provider Internal Medicine Cardiovascular Disease; Visit Provider Internal Medicine Cardiovascular Disease
DX: R94.31 Abnormal electrocardiogram [ECG] [EKG] (principal)
CPT/HCPCS: 78452; 93017; A9500; A4216; J2785

== ENCOUNTER 2024-08-23 17:04 | Inpatient (IN) | payer MEDICARE, OTHER, SELFPAY ==
[2024-08-23 17:05] VITALS: BP 124/99; PULSE 78; RESP 16; TEMP 36.9; O2SAT 98; BMI 28.8
[2024-08-23] MEDS: HYDROcodone Bitartrate/Apap 5/325 Tablet PO (18:07)
--- NOTE | 2024-08-23 18:12 | CT_ITS ---
PROCEDURE: EXTREMITY LOWER WITHOUT CONTRA 08/23/2024 REASON FOR EXAM: PAIN, SWELLING TECHNIQUE: Axial CT images of the left knee obtained without intravenous contrast. Coronal and Sagittal reconstruction series were provided. One or more dose reduction techniques were used (e.g., Automated exposure control, adjustment of the mA and/or kV according to patient size, use of iterative reconstruction technique RADIATION DOSE SUMMARY: CTDlvol: 15.4 mGy DLP: 680 mGycm COMPARISON: None FINDINGS: No displaced fracture. Ossifications adjacent to the lateral pole of the patella measuring up to 1.7 cm, with concavity of the lateral patellar facet. [id number] tricompartmental joint space narrowing and osteophyte formation. There is an os ossific body near the tibial spine measuring 0.6 cm (series 3, image 79). Subchondral cystic changes at the tibiofibular joint. There is a moderate joint effusion containing mixed density contents. Vascular calcifications in the soft tissues. CT/Extremity Lower without Contra IMPRESSION: 1. Moderate knee joint effusion with mixed density contents, which could repres ent hemarthrosis, with septic arthritis also possible. Additional considerations include synovial osteochondromatosis, pigm ented villonodular synovitis, or other synovial pathologies. Consider fluid sampling. 2. Intra-articular loose bodies adjacent to the lateral pole of the patella me asuring up to 1.7 cm, and adjacent to the tibial spine measuring 0.6 cm. There is concavity of the lateral patellar facet, whic h may be a donor site for these fragments. 3. Saal-[id number] osteoarthritis of the knee. Reading Location: [facility]
--- NOTE | 2024-08-23 18:53 | EX.ED.DYSGE1 ---
HPI History of Present Illness Chief Complaint: Lower Extremity Injury Narrative Narrative: Chief complaint and HPI: Left knee pain and swelling. 68-year-old female with past medical history of bilateral knee DJD, HTN, fibromyalgia, CFIDS presents for evaluation of left knee pain and swelling. Patient states she was at a grocery store walking when she developed severe left knee pain and swelling. She denies any trauma or fall. Denies any twisting of the knee. She was unable to walk secondary to the pain and therefore EMS was called. She denies any fever, chills, shortness of breath, chest pain, abdominal pain, nausea, vomiting, numbness/tingling, weakness. Denies pain elsewhere in the extremity. Review of systems: See HPI Medications: As listed on the chart Allergies: As listed on the chart PFSH: Per chart Vital signs: As listed on the chart. Reviewed. Physical exam: Gen: A&O x3, NAD Head: Normocephalic, atraumatic Eyes: No sclera icterus, conjunctiva clear ENT: Moist mucous membranes Neck: Trachea midline, full range of motion CV: RRR, no murmurs Resp: Lungs CTA BL, no w/r/c GI: Abd soft, non-distended, non-tender Musc: Full ROM of all extremities except for limited in the left lower extremity secondary to left knee pain, left knee pain is worse with movement-she is able to flex and extend the knee but elicits pain, no knee instability, no clicking or popping of the knee, no obvious deformity, effusion/swelling to the left knee with mild tenderness to palpation, no erythema/warmth/crepitus/rash, femur/calf nontender to palpation, compartments soft, sensation intact, good capillary refill, DP/PT pulses +2 bilaterally Neuro: Alert, oriented, grossly intact Psych: Cooperative [facility] Medical History Encounter for pre-operative cardiovascular clearance Abnormal EKG SOB (shortness of breath) Other hammer toe(s) (acquired), left foot Degenerative spondylolisthesis Left knee DJD Right knee DJD Fibromyalgia CFIDS (chronic fatigue and immune dysfunction syndrome) MRSA (methicillin resistant Staphylococcus aureus) colonization Low iron History of IBS Depression Anxiety Arthritis High cholesterol Back pain Injury of back Injury of head and neck CPAP (continuous positive airway pressure) dependence Hypertension Home Medications ?Medication ?Instructions ?Recorded ?Last Taken ?Type diclofenac sodium 100 mg 75 mg PO BID 11/19/16 09/30/23 History tablet,extended release 24 hr venlafaxine 150 mg tablet,extended 150 mg PO BID 11/19/16 09/30/23 History release 24 hr antiarthritic combination no.2 900 900 mg PO BID 12/02/20 09/30/23 History mg tablet (glucosamine-chondroitin) cholecalciferol (vitamin D3) 50 50 mcg PO DAILY 12/02/20 09/30/23 History mcg (2,000 unit) capsule ferrous gluconate 324 mg (37.5 mg 324 mg PO DAILY 12/02/20 09/29/23 History iron) tablet fluticasone propionate 50 1 spray intranasal DAILY 12/02/20 09/30/23 History mcg/actuation nasal spray,suspension (Flonase Allergy Relief) folic acid 400 mcg tablet 0.4 mg PO DAILY 12/02/20 09/30/23 History gabapentin 400 mg capsule 400 mg PO 4X/DAY 12/02/20 10/01/23 History magnesium citrate 100 mg capsule 100 mg PO DAILY 12/02/20 09/30/23 History melatonin 10 mg capsule 10 mg PO QHS PRN PRN sleep 12/02/20 09/30/23 History tramadol 50 mg tablet 50 mg PO BID PRN PRN pain 12/02/20 10/01/23 History vitamin E mixed 400 unit capsule 400 unit PO DAILY 12/02/20 09/30/23 History lisinopril 10 mg tablet 10 mg PO DAILY 08/13/21 10/01/23 History calcium carbonate 600 mg PO QHS 09/24/23 09/30/23 History clobetasol 0.05 % topical ointment 1 applic topical .weekly 09/24/23 09/29/23 History rosuvastatin 5 mg tablet 5 mg PO QHS 09/24/23 Unknown History turmeric 400 mg capsule 500 mg PO DAILY 09/24/23 09/30/23 History ascorbic acid (vitamin C) 1,000 mg 1,000 mg PO DAILY 06/21/24 Unknown History tablet,extended release (C Complex) aspirin 81 mg capsule 81 mg PO DAILY 06/21/24 Unknown History Allergy/AdvReac Type Severity Reaction Status Date / Time Sulfa (Sulfonamide Allergy Hives Verified 07/12/24 15:46 Antibiotics) Family History Mother Heart disease Surgical History S/P cervical spinal fusion History of toe surgery Hx of left cataract extraction Hx of right cataract extraction Hx of spinal surgery Hx of thumb surgery History of bunionectomy of right great toe Hx of ovarian cystectomy Hx of cervical spine surgery Hx of hand surgery History of bunionectomy of left great toe History of bunionectomy of left great toe Social History household members: spouse Smoking Status: Never smoker EXAM Physical Exam Const Vital Signs: 08/23/24 17:05 08/23/24 19:04 08/23/24 21:00 Temperature 98.4 F Temperature Source Oral Pulse Rate 78 80 80 Respiratory Rate 16 16 17 Blood Pressure 124/99 H 130/62 H 140/86 H Blood Pressure Mean 107 84 104 Pulse Ox 98 97 97 Oxygen Delivery Method Room Air Room Air 08/23/24 21:14 08/23/24 23:00 Temperature 98.6 F Temperature Source Pulse Rate 75 90 Respiratory Rate 20 H 18 Blood Pressure 129/71 H 131/80 H Blood Pressure Mean 90 97 Pulse Ox 95 98 Oxygen Delivery Method Room Air MDM MDM MDM Narrative Medical decision making narrative: 68-year-old female with past medical history of bilateral knee DJD, HTN, fibromyalgia, CFIDS presents for evaluation of left knee pain and swelling. This developed spontaneously while walking. See physical exam findings. Differential diagnosis includes but is not limited to knee effusion, knee sprain, occult fracture, meniscus injury. Physical exam and HPI not consistent with septic arthritis therefore low suspicion. Mel[place] ordered for pain. CT of the knee ordered. While waiting his CT, patient's pain was not controlled therefore Toradol ordered. CT of the knee knee shows no fracture. She has mild to moderate tricompartmental joint space narrowing and osteophyte formation. There is moderate knee joint effusion with mixed density contacts, could represent hemarthrosis with septic arthritis also possible. Consider fluid sampling. Intra-articular loose bodies adjacent to the lateral pole of the patella measuring up to 1.7 cm there is convexity of the lateral patella facet, which may be a donor site for these fragments. Mild to moderate osteoarthritis of the knee. On chart review, patient is seen Dr. Espinoza in the past. I spoke with Dr. Espinoza on the phone, he suspects likely hemarthrosis given the fragments. Treatment is supportive care. Recommended steroids and if pain controled follow-up in the office. On reevaluation, pain is not controlled. Therefore morphine, Zofran, Solu-Medrol ordered for pain. On reassessment, patient's pain is still not controlled. There has not been any worsening swelling to the knee. Her compartments have remained soft. She will likely warrant admission. I spoke with Dr. Kemp, recommended basic labs before admission. While updating the patient's of Dr. Morales's recommendation. She did states that she follows with Dr. Shah and that he is supposed to perform a right knee replacement. Therefore Dr. Shah was consulted. He reviewed the imaging. Recommended aspirating the knee and placing 5 cc of 0.5 Marcaine to improve the pain. If pain does not improve she will likely need to be admitted to the hospitalist service for pain control as this does not require an orthopedic surgeon admission/consult. I performed arthrocentesis of the left knee however it was difficult to enter the joint space given that patient has degenerative disease. I was ultimately able to only aspirate 5 to 6 cc of blood. I did inject the Marcaine. Given that hemarthrosis was performed, will send for fluid assessment although again low suspicion for septic arthritis. CBC shows leukocytosis of 12.8. Patient has baseline anemia. BMP relatively unremarkable. Synovial fluid revealed no crystals and color was bloody as is consistent with hemarthrosis. Her synovial WBCs are elevated as well as her PMN percentage but this is consistent with inflammatory response category when comparing to synovial fluid diagram. On reevaluation, patient's pain has improved some but states that it is still not controlled and that she is unable to discharge home even with crutches. Therefore Dilaudid was ordered and patient will warrant admission for intractable pain. I spoke with Dr. Kemp. Given that patient is in intractable pain with elevated synovial result he would like me to obtain blood cultures and he will start the patient on antibiotics vancomycin and Zosyn. This was ordered along with CRP and ESR. He will follow-up on the results. Patient was updated about the results and any change in plan. She affirmed understanding of plan. Arthrocentesis Indication: Left knee effusion, suspect hemarthrosis Location: Left knee Consent: Risks, benefits, and alternatives discussed with patient and consent obtained Procedure: A timeout was performed verifying correct patient, procedure, site, and positioning. The area was prepared and draped in the usual sterile fashion. Using an superior lateral approach an 18-gauge needle was inserted into the knee joint however this was difficult due to patient's degenerative changes as I encountered calcifications. I was only able to aspirate 5-6 ml of bloody fluid. After aspiration I injected 5 mL of 0.5% Marcaine. Bleeding was minimal at the insertion site. Insertion site was dressed. Raman bandage was applied to help with the swelling from the effusion. The patient tolerated the procedure well without complications. Impression: 1. Intractable left knee pain 2. Left knee spontaneous hemarthrosis 3. Status post arthrocentesis of the left knee Lab Data Labs: Laboratory Results - last 24 hr 08/23/24 08/23/24 21:45 22:39 WBC 12.8 H RBC 4.64 Hgb 11.1 L Hct 35.8 L MCV 77.2 L MCH 23.9 L MCHC 31.0 L RDW Std Deviation 38.9 RDW Coeff of Tiana 13.9 Plt Count 377 MPV 8.8 Immature Gran % (Auto) 0.200 Neut % (Auto) 86.9 H Lymph % (Auto) 10.3 L Jenkins % (Auto) 2.2 Eos % (Auto) 0.2 Baso % (Auto) 0.2 Absolute Neuts (auto) 11.1 H Absolute Lymphs (auto) 1.32 Nucleated RBC % 0 Sodium 139 Potassium 4.4 Chloride 106 Carbon Dioxide 22.4 Anion Gap 11 BUN 17 Creatinine 0.94 Estim Creat Clear Calc 63.59 Est GFR (MDRD) Non-Af 66 BUN/Creatinine Ratio 18.1 Glucose 119 H Calcium 9.4 Fluid Crystals NO CRYSTALS SEEN Fluid Crystal Source SYNOVIAL Fl Crystal Path Review Will follow Synovial Source LEFT KNEE Synovial Color Bloody Synovial Appearance Turbid Synovial WBC 2.9880 H Synovial RBC 2.329 H Synovial Tot Cell Ct 2.9920 H Synov Polynuclear WBCs 1.969 Synov Mononuclear WBCs 1.019 Synovial Neutrophils 62 H Synovial Lymphocytes 33 Synovial Monocytes 5 Synovial Polynuclear % 65.9 Synovial Mononuclear % 34.[address] Comment May follow Radiography Diagnostic Testing: Clinical Impression(s) from Imaging Studies Lower Extremity CT 08/23/24 18:12 IMPRESSION: 1. Moderate knee joint effusion with mixed density contents, which could represent hemarthrosis, with septic arthritis also possible. Additional considerations include synovial osteochondromatosis, pigmented villonodular synovitis, or other synovial pathologies. Consider fluid sampling. 2. Intra-articular loose bodies adjacent to the lateral pole of the patella measuring up to 1.7 cm, and adjacent to the tibial spine measuring 0.6 cm. There is concavity of the lateral patellar facet, which may be a donor site for these fragments. 3. [id number] osteoarthritis of the knee. Reading Location: [id number] Discharge Plan Triage Chief Complaint: Lower Extremity Injury ED Provider: Jacob Rosen Dx/Rx/DC Orders Prescriptions: No Action gabapentin 400 mg capsule 400 mg PO 4X/DAY Patient Comments: TAKE 1 CAPSULE BY MOUTH FOUR TIMES DAILY folic acid 400 mcg tablet 0.4 mg PO DAILY melatonin 10 mg capsule 10 mg PO QHS PRN PRN (Reason: sleep) magnesium citrate 100 mg capsule 100 mg PO DAILY ferrous gluconate 324 mg (37.5 mg iron) tablet 324 mg PO DAILY vitamin E mixed 400 unit capsule 400 unit PO DAILY cholecalciferol (vitamin D3) 50 mcg (2,000 unit) capsule 50 mcg PO DAILY glucosamine-chondroitin 900 mg tablet 900 mg PO BID fluticasone propionate [Flonase Allergy Relief] 50 mcg/actuation spray,suspension 1 spray intranasal DAILY Rx Instructions: administer into each nostril tramadol 50 mg tablet 50 mg PO BID PRN PRN (Reason: pain) lisinopril 10 mg tablet 10 mg PO DAILY diclofenac sodium 100 MG tablet extended release 24 hr 75 mg PO BID Patient Comments: venlafaxine 150 MG tablet extended release 24hr 150 mg PO BID C Complex 1,000 mg tablet extended release 1,000 mg PO DAILY aspirin 81 mg capsule 81 mg PO DAILY rosuvastatin 5 mg tablet 5 mg PO QHS turmeric 400 mg capsule 500 mg PO DAILY calcium carbonate 600 mg calcium (1,500 mg) tablet 600 mg PO QHS clobetasol 0.05 % ointment 1 applic topical .weekly Rx Instructions: Tuesdays Primary Care Provider: Jael Black Referrals: Jael Black MD [Primary Care Provider] - Print Language: Trinidadian
[2024-08-23 19:04] VITALS: BP 130/62; PULSE 80; RESP 16; O2SAT 97
[2024-08-23] MEDS: Ketorolac 30 MG/ML Syringe IM (19:24)
[2024-08-23] MEDS: MethylPREDNISolone 125 MG/2 ML Vial 60 MG IV (20:10)
[2024-08-23] MEDS: Ondansetron 4 MG/2 ML Vial IV (20:10)
[2024-08-23] MEDS: Morphine 4 MG/ML Syringe IV (20:10)
--- NOTE | 2024-08-23 20:59 | PCM.HP.STD ---
[facility] - General General Date of Admission: 08/23/24 Date of Service: 08/23/24 Chief Complaint: Painful Left Knee with Inability to Ambulate. HPI Narrative EPI LANDAVERDE, is a 68 F with a past medical history of essential hypertension; on lisinopril, hyperlipidemia; on rosuvastatin, overweight; with BMI of 28.8 this admission, history of CFIDS, OSMANY; on ferrous gluconate, depression with anxiety; on venlafaxine, fibromyalgia; on gabapentin QID, IBS, history of MRSA and OA; with bilateral knee DJD and previous back injuries after falling down stairs (1993 & 2019) with degenerative spondylolisthesis; s/p cervical spine fusion on diclofenac BID plus prn tramadol BID followed by Dr. Shah of orthopedics with plan for Right TKR last month that was cancelled due to a viral URI who presents to [facility] ER complaining of painful Left knee with inability to ambulate. Mrs. Landaverde reports her symptoms began approximately one hour prior to arrival when she was leaving a local shopping market when she suddenly developed severe Left knee pain with an social worker assistant from the store able to help her get to a bench and sit down safely. She called her and when he arrived she was unable to get into their personal vehicle due to severe pain so EMS was then activated. She denies recent fall or traumatic injury or similar previous episodes. There was no report of fever, chills, nausea, vomiting, diarrhea, constipation, abdominal pain, chest pain, palpitations, heart racing, SOB, cough, headache or rash. In the ER she was noted to have a CT scan of the Left knee that revealed moderate knee joint effusion with mixed density contents, which could represent hemarthrosis and/or septic arthritis with recommendation for arthrocentesis in addition to intraarticular loose bodies adjacent to the lateral pole of the patella measuring up to ~1.7 cm and adjacent to the tibial spine measuring ~0.6 cm in addition to [id number] OA of the Left knee with hospitalist service contacted originally around 21:00 hours but patient unable to be admitted at that time without labs including arthrocentesis to clarify diagnosis. She then underwent arthrocentesis with bloody tap and highly elevated synovial WBC of 2.98K with 62% neutrophils suggestive of possible Septic Arthritis complicated by Severe Pain and Inability to Ambulate with additional labs done with ER physician recontacted at ~23:30 hours and she was then admitted to the general medical floor for ongoing care for a stay that is expected to extend beyond 2 midnights. [facility] Medical History Encounter for pre-operative cardiovascular clearance Abnormal EKG SOB (shortness of breath) Other hammer toe(s) (acquired), left foot Degenerative spondylolisthesis Left knee DJD Right knee DJD Fibromyalgia CFIDS (chronic fatigue and immune dysfunction syndrome) MRSA (methicillin resistant Staphylococcus aureus) colonization Low iron History of IBS Depression Anxiety Arthritis High cholesterol Back pain Injury of back Injury of head and neck CPAP (continuous positive airway pressure) dependence Hypertension Home Medications ?Medication ?Instructions ?Recorded ?Last Taken ?Type diclofenac sodium 100 mg 75 mg PO BID NSAID 11/19/16 08/23/24 History tablet,extended release 24 hr venlafaxine 150 mg tablet,extended 150 mg PO BID Antidepressant 11/19/16 08/23/24 History release 24 hr antiarthritic combination no.2 900 900 mg PO BID Antiarthritis 12/02/20 08/23/24 History mg tablet (glucosamine-chondroitin) cholecalciferol (vitamin D3) 50 50 mcg PO DAILY Supplement 12/02/20 08/23/24 History mcg (2,000 unit) capsule ferrous gluconate 324 mg (37.5 mg 324 mg PO DAILY Iron Supplement 12/02/20 08/23/24 History iron) tablet fluticasone propionate 50 1 spray intranasal DAILY Allergies 12/02/20 08/23/24 History mcg/actuation nasal spray,suspension (Flonase Allergy Relief) folic acid 400 mcg tablet 0.4 mg PO DAILY Supplement 12/02/20 08/23/24 History gabapentin 400 mg capsule 400 mg PO 4X/DAY Neuropathy 12/02/20 08/23/24 History magnesium citrate 100 mg capsule 100 mg PO DAILY Supplement 12/02/20 08/23/24 History melatonin 10 mg capsule 10 mg PO QHS PRN PRN sleep 12/02/20 08/22/24 History tramadol 50 mg tablet 50 mg PO BID PRN PRN pain 12/02/20 08/23/24 History vitamin E mixed 400 unit capsule 400 unit PO DAILY Supplement 12/02/20 08/23/24 History lisinopril 10 mg tablet 10 mg PO DAILY Blood pressure 08/13/21 08/23/24 History calcium carbonate 600 mg PO QHS Supplement 09/24/23 08/23/24 History clobetasol 0.05 % topical ointment 1 applic topical .weekly swelling 09/24/23 08/17/24 History rosuvastatin 5 mg tablet 5 mg PO QHS Cholesterol pill 09/24/23 08/22/24 History turmeric 400 mg capsule 400 mg PO DAILY Supplement 09/24/23 08/23/24 History ascorbic acid (vitamin C) 1,000 mg 1,000 mg PO DAILY Supplement 06/21/24 08/23/24 History tablet,extended release (C Complex) aspirin 81 mg capsule 81 mg PO DAILY Antiplatelet 06/21/24 08/23/24 History Allergy/AdvReac Type Severity Reaction Status Date / Time Sulfa (Sulfonamide Allergy Hives Verified 08/24/24 00:42 Antibiotics) Family History Mother Heart disease Surgical History S/P cervical spinal fusion History of toe surgery Hx of left cataract extraction Hx of right cataract extraction Hx of spinal surgery Hx of thumb surgery History of bunionectomy of right great toe Hx of ovarian cystectomy Hx of cervical spine surgery Hx of hand surgery History of bunionectomy of left great toe History of bunionectomy of left great toe Social History household members: spouse Smoking Status: Never smoker ROS ROS Narrative Review of Systems: Constitutional: Patient denies fever or chills. Eyes: Patient denies changes in vision or discharge from eyes. ENT: Patient denies runny nose, sore throat or ear pain. Resp: Patient denies SOB or cough. CV: Patient denies chest pain, palpitations or heart racing. GI: Patient denies abdominal pain, nausea, vomiting, diarrhea or constipation. : Patient denies dysuria or hematuria. MSK: Patient admits to severe Left knee pain with inability to ambulate. Skin: Patient denies rash, abscess, wounds or jaundice. Psych: Patient denies symptoms of uncontrolled depression or anxiety. Neuro: Patient denies headache, paresthesias or focal neurologic deficits. Allergy: Patient denies lip swelling, tongue swelling or urticaria. Hematology: Patient denies easy bleeding or easy bruisability. Endocrinology: Patient denies polyuria, polydipsia, polyphagia or heat/cold intolerance. 14 point ROS otherwise negative except for positives noted above in HPI. Vital Signs Vital Signs Vital Signs: 08/23/24 17:05 08/23/24 19:04 Temperature 98.4 F Temperature Source Oral Pulse Rate 78 80 Respiratory Rate 16 16 Blood Pressure 124/99 H 130/62 H Blood Pressure Mean 107 84 Pulse Ox 98 97 Oxygen Delivery Method Room Air Room Air Weight Weight: 183 lb 13.848 oz Body Mass Index (BMI) 28.8 Results Medical Records Data Attestation: I reviewed the patient's medical records Lab / Micro Data Attestation: I reviewed the patient's lab results. 08/24/24 04:35 08/24/24 04:35 Imaging Radiology Impression Lower Extremity CT 08/23/24 18:12 IMPRESSION: 1. Moderate knee joint effusion with mixed density contents, which could represent hemarthrosis, with septic arthritis also possible. Additional considerations include synovial osteochondromatosis, pigmented villonodular synovitis, or other synovial pathologies. Consider fluid sampling. 2. Intra-articular loose bodies adjacent to the lateral pole of the patella measuring up to 1.7 cm, and adjacent to the tibial spine measuring 0.6 cm. There is concavity of the lateral patellar facet, which may be a donor site for these fragments. 3. Oqmf-pb-qfutugjd osteoarthritis of the knee. Reading Location: [facility] Assessment & Plan Assessment/Plan (1) Inflammatory arthritis: (2) Hemarthrosis: (3) Left knee pain: QUALIFIERS: Chronicity: acute Qualified Code(s): M25.562 - Pain in left knee (4) Inability to ambulate due to left knee: (5) Left knee DJD: QUALIFIERS: Osteoarthritis type: primary Qualified Code(s): M17.12 - Unilateral primary osteoarthritis, left knee (6) Right knee DJD: QUALIFIERS: Osteoarthritis type: primary Qualified Code(s): M17.11 - Unilateral primary osteoarthritis, right knee (7) Overweight (BMI 25.0-29.9): PLAN: Plan 1. CT scan of the Left knee that revealed moderate knee joint effusion with mixed density contents, which could represent Hemarthrosis and/or Septic Arthritis with recommendation for arthrocentesis in addition to intraarticular loose bodies adjacent to the lateral pole of the patella measuring up to ~1.7 cm and adjacent to the tibial spine measuring ~0.6 cm in addition to pvcn-[id number] OA of the Left knee with Leukocytosis of 12.8K present on admission in addition to highly elevated synovial WBC of 2.98K with 62% synovial neutrophils suggestive of suspected Septic Arthritis in the setting of previously known CFIDS and MRSA - Admit to general medical floor. Start empiric IV piperacillin-tazobactam and IV vancomycin and await culture & sensitivity data. ESR and C-RP are negative. Give acetaminophen prn for hbjz-lu-uowpzehn (level 1-5/10) pain or fever. Give morphine IV prn for severe (level 6-10/10) pain. It is worth noting this patient has received bupivacaine injection in joint, IV hydromorphone, oral hydrocodone-APAP, IV methylprednisolone, IM ketorolac and IV morphine with ongoing complaints of severe residual Left knee pain likely indicating a more serious problem than just arthritis with hemarthrosis - but indications at this time suggest Inflammatory Arthritis. Check MRI of the Left knee with contrast to help further clarify diagnosis. Finally, we will consult Dr. Shah of orthopedic surgery to see this patient who is well-known to him on-rounds in the AM for further recommendations with help appreciated in advance. 2. Severe Left Knee Pain with Inability to Ambulate due to #1 - We will follow pain regimen and scales outlined in #1. PT/OT and Case Management to consult and treat on-rounds in AM for further recommendations with help appreciated in advance. 3. OA; with bilateral knee DJD and previous back injuries after falling down stairs (1993 & 2019) with degenerative spondylolisthesis; s/p cervical spine fusion on diclofenac BID plus prn tramadol BID complicating #1 & #2 - Noted with the patient on chronic unopposed NSAID raising risk of potential GI toxicity potentially worsening #7. 4. Overweight; with BMI of 28.8 this admission adding to the burden of disease outlined from #1 - #3 - Weight loss will be recommended. Check TSH. 5. Essential hypertension; on lisinopril - Maintain current therapy plus give prn IV hydralazine for systolic blood pressure > 160 mmHg. 6. Hyperlipidemia; on rosuvastatin - Resume statin. 7. OSMANY; on ferrous gluconate - Stable with hemoglobin of 11.1g/dL and MCV of 77.2 fL. Check iron studies, ferritin and Hemoccult stools. 8. Depression with anxiety; on venlafaxine - Current therapy to continue as before. 9. Fibromyalgia; on gabapentin QID - Continue gabapentin as previous. 10. IBS - Stable. 11. DVT prophylaxis - SCD on RLE only with hemarthrosis outlined in #1 and possible impending orthopedic surgery. Total time: Approximately (but not less than) 75 minutes. Charges/Coding Visit Charges Inpatient E&M: 09004 Init Hosp L3
[2024-08-23 21:00] VITALS: BP 140/86; PULSE 80; RESP 17; O2SAT 97
[2024-08-23 21:14] VITALS: BP 129/71; PULSE 75; RESP 20; TEMP 37; O2SAT 95
[2024-08-23] MEDS: Bupivacaine Mpf 0.5% 30 ML VIAL 5 ML INFILT (21:15)
[2024-08-23 21:51] LABS: Pathologist Comment May follow
[2024-08-23 22:03] LABS: RBC /Synovial Fluid 2.329 10^6/uL (0); Synovial Fld Mononuclear WBC # 1.019 10^3/ul; Synovial Fld Mononuclear WBC % 34.1 %; Synovial Fld Polynuclear WBC # 1.969 10^3/uL; Synovial Fld Polynuclear WBC % 65.9 %
[2024-08-23] MEDS: HYDROmorphone 0.5 MG/0.5 ML SYRINGE IV (22:33)
[2024-08-23 22:52] LABS: Absolute Lymphocyte Count 1.32 X10^3/uL (0.83-4.51); Absolute Neutrophil Count 11.1 X10^3/uL (2.0-7.7); Basophil# 0.03 X10^3/uL; Basophil% 0.2 % (0-1); Eosinophil# 0.02 X10^3/uL; Eosinophils% 0.2 % (0-5); Hematocrit 35.8 % (37-47); Hemoglobin 11.1 g/dL (12.0-15.0); Lymphocyte # 1.32 X10^3/ul (0.83-4.51); Lymphocyte % 10.3 % (19-41); Mean Corpuscular Hgb 23.9 pg (27.0-32.0); Mean Corpuscular Volume 77.2 fL (81-99); Mean Platelet Vol. 8.8 fl (6.2-12.0); Monocyte# 0.28 X10^3/uL; Monocyte% 2.2 % (0-10); NRBC Flagged by Analyzer 0 % (0-5); Neutrophil % 86.9 % (47-70); Platelet Count 377 K/mm3 (150-450); RBC Distribution Width CV 13.9 % (11.6-14.6); RBC Distribution Width SD 38.9 fl (35.1-43.9); Red Blood Count 4.64 M/mm3 (4.2-5.4); White Blood Count 12.8 K/mm3 (4.4-11.0)
[2024-08-23 23:00] VITALS: BP 131/80; PULSE 90; RESP 18; O2SAT 98
[2024-08-23 23:23] LABS: Anion Gap 11 (5-15); BUN 17 mg/dL (4-19); BUN/Creat Ratio 18.1 RATIO (10-20); Calcium,Total 9.4 mg/dL (7.6-11.0); Carbon Dioxide 22.4 mmol/L (21.0-32.0); Chloride 106 mmol/L (98-108); Creatinine, Serum 0.94 mg/dL (0.70-1.20); EST Glomerular Filtration Rate 66 (>60); Estimated Creatinine Clearance 63.59 ml/min (50-250); Glucose 119 mg/dL (70-99); Potassium 4.4 mmol/L (3.3-5.1); Sodium Level 139 mmol/L (133-145)
[2024-08-23 23:25] LABS: Lymph 33 %; Monocyte /Synovial Fluid 5 %; Neutrophil 62 % (0-25)
[2024-08-23 23:26] LABS: AUTO B FLUID DILUENT BKGD CT WBC <0.1 RBC <0.01 (W<.1,R<.01); CRYSTALS, BODY FLUID NO CRYSTALS SEEN; Source / Synovial Fluid LEFT KNEE; Source- Body Fluid SYNOVIAL
[2024-08-23 23:27] LABS: Appearance /Synovial Fluid Turbid (CLEAR); Body Fluid QC Type(s) BF1Q,BF2Q; Color / Synovial Fluid Bloody (Pale Yellow); Pathologist Review Will follow
[2024-08-24] VITALS (7 sets, daily range): BP systolic 108–135; BP diastolic 35–65; PULSE 71–87; RESP 14–18; TEMP 36.7–36.9; O2SAT 93–97; BMI 27.4
[2024-08-24 00:15] LABS: Ferritin 197 ng/mL (22-378)
[2024-08-24 00:20] LABS: Erythrocyte Sedimentation Rate 12 mm/hr (0-30)
[2024-08-24] MEDS: Vancomycin HCl 2,000 MG in 0.9% Normal Saline (500mL Bag) 500 ML 250 MG IV (01:16)
[2024-08-24] MEDS: Piperacil/Tazobactam 3.375 GM in 0.9% Normal Saline (50mL MB+) 50 ML IV ×3 (01:16→14:18)
[2024-08-24] MEDS: 0.9% Normal Saline (1000mL) 1,000 ML 70 ML IV (01:16)
[2024-08-24] MEDS: Methocarbamol 500 MG Tablet PO ×2 (01:17→14:20)
--- NOTE | 2024-08-24 01:20 | PCM.RX.CS ---
Consult Antibiotic Management Pharmacy has been consulted to manage selected antibiotic: Vancomycin Type of Intervention Type of Consult: New start Labs Labs: Sodium 139 mmol/L (133-145) 08/23/24 22:39 Potassium 4.4 mmol/L (3.3-5.1) 08/23/24 22:39 Chloride 106 mmol/L (98-108) 08/23/24 22:39 Carbon Dioxide 22.4 mmol/L (21.0-32.0) 08/23/24 22:39 Anion Gap 11 (5-15) 08/23/24 22:39 BUN 17 mg/dL (4-19) 08/23/24 22:39 Creatinine 0.94 mg/dL (0.70-1.20) 08/23/24 22:39 Est GFR (MDRD) Non-Af 66 (>60) 08/23/24 22:39 BUN/Creatinine Ratio 18.1 RATIO (10-20) 08/23/24 22:39 Glucose 119 mg/dL (70-99) H 08/23/24 22:39 Dosing Weight Weight used for dosin.4 kg Estimated Creatinine Clearance Estimated Creatinine Clearance: 64 Goal Trough Goal Trough: 15-20 mcg/mL Pharmacy Plan for Drug Dosing Pharmacy Plan for Drug Dosing: Pharmacy Service will continue to monitor and adjust dosing as required. Follow-Up Labs Follow-Up Labs: Trough: Vancomycin Date/Time Labs Ordered Labs to be done on [date and time ordered]: 08/25/24 @1300
[2024-08-24 01:22] LABS: Iron Binding Capacity,Total 296 ug/dL (250-450)
[2024-08-24 01:23] LABS: CRP < 3.00 mg/L (0.0-3.0); Iron 44 ug/dL (50-170); Iron Binding Capacity,Unsat 252 ug/dL (228-428); Magnesium 2.4 mg/dL (1.5-2.2); PERCENT IRON SATURATION 14.9 % (13-59)
--- NOTE | 2024-08-24 01:40 | MRI_ITS ---
PROCEDURE: LOWER EXT JOINT ONLY W/WO CONT 08/24/2024 REASON FOR EXAM: LEFT KNEE PAIN AND SWELLING TECHNIQUE: MRI of the left knee before and after intravenous gadolinium-based contrast. Multiplanar and multisequence images were obtained. CONTRAST: 15 cc Clariscan intravenous. COMPARISON: None. FINDINGS: The anterior and posterior cruciate ligaments are intact. The medial meniscus is intact. The lateral meniscus is normal. Small 5 mm fracture with surrounding edema involving the medial femoral condyle subjacent to the MCL attachment. There is no complete MCL rupture although I suspect partial tear with 8 cm cyst at the attachment. LCL is unremarkable. Medial femorotibial cartilage is unremarkable. Mild lateral patellofemoral cartilage loss. 9 mm osteophyte from the lateral tibial plateau. Severe patellofemoral osteoarthritis. Large joint effusion. Cluster of ganglion cysts adjacent to the medial head gastrocnemius origin, aggregate dimension 2.7 cm. Mild generalized subcutaneous edema although particularly prominent over the patella and lateral patellofemoral ligament. MRI/Lower Ext Joint Only W/WO Cont IMPRESSION: 1. Tiny 5 mm fracture of the medial femoral condyle with adjacent edema, at th e MCL attachment site where there is a low-grade tear and small cyst. No complete MCL rupture. 2. Severe patellofemoral osteoarthritis with large joint effusion. Mild later al compartment OA. 3. No imaging features of septic arthritis although arthrocentesis would be de finitive. 4. No meniscal or cruciate ligament tear. Reading [facility]
[2024-08-24 04:54] LABS: Absolute Lymphocyte Count 0.97 X10^3/uL (0.83-4.51); Absolute Neutrophil Count 12.2 X10^3/uL (2.0-7.7); Basophil# 0.02 X10^3/uL; Basophil% 0.1 % (0-1); Hematocrit 33.6 % (37-47); Hemoglobin 10.3 g/dL (12.0-15.0); Lymphocyte # 0.97 X10^3/ul (0.83-4.51); Lymphocyte % 7.3 % (19-41); Mean Corp Hgb Conc 30.7 g/dL (32-36); Mean Corpuscular Volume 78.3 fL (81-99); Mean Platelet Vol. 8.7 fl (6.2-12.0); Monocyte# 0.09 X10^3/uL; Monocyte% 0.7 % (0-10); NRBC Flagged by Analyzer 0 % (0-5); Neutrophil # 12.21 X10^3/uL (2.7-7.7); Neutrophil % 91.5 % (47-70); Platelet Count 346 K/mm3 (150-450); RBC Distribution Width CV 13.9 % (11.6-14.6); RBC Distribution Width SD 39.8 fl (35.1-43.9); Red Blood Count 4.29 M/mm3 (4.2-5.4); White Blood Count 13.3 K/mm3 (4.4-11.0)
[2024-08-24 05:30] LABS: ALB/GLOB Ratio 1.7 RATIO (0.9-2.4); AST(SGOT) 22 U/L (<=31); Alanine Aminotransfer ALT/SGPT 24 U/L (<=34); Albumin, Serum 3.9 g/dL (3.4-4.8); Alkaline Phosphatase 80 U/L (35-104); Anion Gap 11 (5-15); BUN 16 mg/dL (4-19); BUN/Creat Ratio 16.3 RATIO (10-20); Calcium,Total 8.9 mg/dL (7.6-11.0); Carbon Dioxide 22.1 mmol/L (21.0-32.0); Chloride 107 mmol/L (98-108); Creatinine, Serum 0.96 mg/dL (0.70-1.20); EST Glomerular Filtration Rate 65 (>60); Estimated Creatinine Clearance 60.88 ml/min (50-250); Globulin 2.3 g/dL (2.2-4.2); Glucose 162 mg/dL (70-99); Phosphorus 3.4 mg/dL (2.7-4.5); Potassium 4.8 mmol/L (3.3-5.1); Protein, Total 6.2 g/dL (5.9-8.4); Sodium Level 139 mmol/L (133-145); Total Bilirubin 0.17 mg/dL (0.00-1.30)
--- NOTE | 2024-08-24 05:55 | EKG12_ITS ---
Test Reason : AM EKG Blood Pressure : */* mmHG Vent. Rate : 80 BPM Atrial Rate : 80 BPM P-R Int : 192 ms QRS Dur : 98 ms QT Int : 366 ms P-R-T Axes : 60 255 13 degrees QTcB Int : 422 ms Normal sinus rhythm with sinus arrhythmia Right superior axis deviation Right ventricular hypertrophy Cannot rule out Inferior infarct (cited on or before 27-Jun-2024) T wave abnormality, consider anterior ischemia Abnormal ECG When compared with ECG of 27-Jun-2024 13:09, Borderline criteria for Lateral infarct are no longer Present Questionable change in initial forces of Inferior leads Confirmed by MARICARMEN AGUILAR, XOCHITL ([id number]), research editor SHERIDAN BOB ([id number]) on 08/29/2024 6:57:35 AM Referred By: Confirmed By: XOCHITL HERNADEZ MD
[2024-08-24] MEDS: 0.9% Saline Lock 10 ML Syringe IV ×2 (06:05→11:08)
[2024-08-24 07:51] LABS: Bacteria 0 SEEN /hpf (None Seen); Mucous, Urine 0 SEEN /hpf (<or=2+); White Blood Cells 0 SEEN /hpf (0-5)
[2024-08-24 08:53] LABS: Color, Urine Yellow (Yellow); Glucose, Dipstick Normal (Normal); Ketone-Dipstick Negative (Negative); Leukocyte Esterase-Dipstick 25 /ul (Negative); Nitrite-Dipstick Negative (Negative); Occult Blood-Urine 25 /ul (Negative); Protein-Dipstick 15 mg/dl (Negative); Urine Bilirubin Dipstick Negative (Negative); Urine Clarity Sl. Cloudy (Clear); Urine Urobilinogen Normal (Normal)
[2024-08-24 09:09] LABS: Red Blood Cells-Urine 0-5 SEEN /hpf (0-5); Squamous Epithelial Cells - UA 0-5 SEEN /hpf (5-10)
--- NOTE | 2024-08-24 09:46 | PN.HOSP_ITS ---
Reason for Visit Reason for Visit: Diagnoses Overweight (08/23/24) Unilateral primary osteoarthritis, right knee (08/23/24) Unilateral primary osteoarthritis, left knee (08/23/24) Unspecified osteoarthritis, unspecified site (08/23/24) Hemarthrosis, unspecified joint (08/23/24) Pain in left knee (08/23/24) Difficulty in walking, not elsewhere classified (08/23/24) Subjective Subjective Patient was seen and examined today, she was admitted due to acute left knee swelling, patient denies any trauma to the area. Patient is already have an MRI this admission, orthopedic surgery is seeing her in consultation. Objective Data Objective Data Vital Signs: Vital Signs Temp Pulse Resp BP Pulse Ox O2 Del Method 98.4 F 87 14 123/65 H 93 Room Air 08/24/24 08:52 08/24/24 08:52 08/24/24 08:52 08/24/24 08:52 08/24/24 08:52 08/24/24 09:15 Oxygen Delivery Method Room Air Weight: 79.6 kg Body Mass Index (BMI) 27.4 Intake & Output: Intake and Output for Last 24 Hours 08/22/24 08/23/24 08/24/24 23:59 23:59 23:59 Intake Total 590 / 590 Output Total 350 / 350 Balance 240 / 240 Lab / Micro Data 08/24/24 04:35 08/24/24 04:35 Labs: Laboratory Results - last 24 hr 08/23/24 05:36: Urine Color Yellow, Urine Clarity Sl. Cloudy, Urine pH 6.0, Ur Specific [place] 1.010, Urine Protein 15 H, Urine Glucose (UA) Normal, Urine Ketones Negative, Urine Occult Blood 25 H, Urine Nitrite Negative, Urine Bilirubin Negative, Urine Urobilinogen Normal, Ur Leukocyte Esterase 25 H, Urine RBC 0-5 SEEN, Urine WBC 0 SEEN, Ur Squamous Epith Cells 0-5 SEEN, Urine Bacteria 0 SEEN, Urine Mucus 0 SEEN 08/23/24 21:45: Fluid Crystals NO CRYSTALS SEEN, Fluid Crystal Source SYNOVIAL, Fl Crystal Path Review Will follow, Synovial Source LEFT KNEE, Synovial Color Bloody, Synovial Appearance Turbid, Synovial WBC 2.9880 H, Synovial RBC 2.329 H, Synovial Tot Cell Ct 2.9920 H, Synov Polynuclear WBCs 1.969, Synov Mononuclear WBCs 1.019, Synovial Neutrophils 62 H, Synovial Lymphocytes 33, Synovial Monocytes 5, Synovial Polynuclear % 65.9, Synovial Mononuclear % 34.1, Synovial Path Comment May follow 08/23/24 22:39: WBC 12.8 H, RBC 4.64, Hgb 11.1 L, Hct 35.8 L, MCV 77.2 L, MCH 23.9 L, MCHC 31.0 L, RDW Std Deviation 38.9, RDW Coeff of Tiana 13.9, Plt Count 377, MPV 8.8, Immature Gran % (Auto) 0.200, Neut % (Auto) 86.9 H, Lymph % (Auto) 10.3 L, [place] % (Auto) 2.2, Eos % (Auto) 0.2, Baso % (Auto) 0.2, Absolute Neuts (auto) 11.1 H, Absolute Lymphs (auto) 1.32, Nucleated RBC % 0, ESR 12, Sodium 139, Potassium 4.4, Chloride 106, Carbon Dioxide 22.4, Anion Gap 11, BUN 17, Creatinine 0.94, Estim Creat Clear Calc 63.59, Est GFR (MDRD) Non-Af 66, BUN/Creatinine Ratio 18.1, Glucose 119 H, Calcium 9.4, Magnesium 2.4 H, Iron 44 L, TIBC 296, Iron Saturation 14.9, Unsaturated IBC 252, Ferritin 197, C-React Prot Ext Range < 3.00, TSH 2.070 08/24/24 04:35: WBC 13.3 H, RBC 4.29, Hgb 10.3 L, Hct 33.6 L, MCV 78.3 L, MCH 24.0 L, MCHC 30.7 L, RDW Std Deviation 39.8, RDW Coeff of [place]iana 13.9, Plt Count 346, MPV 8.7, Immature Gran % (Auto) 0.400, Neut % (Auto) 91.5 H, Lymph % (Auto) 7.3 L, [place] % (Auto) 0.7, Eos % (Auto) 0.0, Baso % (Auto) 0.1, Absolute Neuts (auto) 12.2 H, Absolute Lymphs (auto) 0.97, Nucleated RBC % 0, Sodium 139, Potassium 4.8, Chloride 107, Carbon Dioxide 22.1, Anion Gap 11, BUN 16, Creatinine 0.96, Estim Creat Clear Calc 60.88, Est GFR (MDRD) Non-Af 65, BUN/Creatinine Ratio 16.3, Glucose 162 H, Calcium 8.9, Phosphorus 3.4, Total Bilirubin 0.17, AST 22, ALT 24, Alkaline Phosphatase 80, Total Protein 6.2, Albumin 3.9, Globulin 2.3, Albumin/Globulin Ratio 1.7 Micro: Microbiology 08/23/24 21:45 Fluid - Synovial (joint) Gram Stain - Final 08/23/24 21:45 Fluid - Synovial (joint) Body Fluid Culture - Preliminary No growth-Final to follow Radiography Diagnostic Testing: Radiology Impression Lower Extremity CT 08/23/24 18:12 IMPRESSION: 1. Moderate knee joint effusion with mixed density contents, which could represent hemarthrosis, with septic arthritis also possible. Additional considerations include synovial osteochondromatosis, pigmented villonodular synovitis, or other synovial pathologies. Consider fluid sampling. 2. Intra-articular loose bodies adjacent to the lateral pole of the patella measuring up to 1.7 cm, and adjacent to the tibial spine measuring 0.6 cm. There is concavity of the lateral patellar facet, which may be a donor site for these fragments. 3. Pgjb-sn-cirstjql osteoarthritis of the knee. Reading Location: [id number] Physical Exam Const alert, oriented x3, no apparent distress, average body habitus and healthy appearing General Appearance: cooperative, well kempt and well developed Orientation / Consciousness: awake, oriented to person, oriented to place and oriented to time HEENT normocephalic and moist oral mucous membranes Eyes PERRL, EOMs intact bilaterally and conjunctivae normal Neck supple, no JVD, thyroid normal and no carotid bruits General: trachea midline Resp normal respiratory effort and clear to auscultation bilaterally Auscultation: Negative for rales, rhonchi or wheezes Cardio regular rate, regular rhythm, no murmurs, no rub and no gallops GI normal to inspection, nondistended, normoactive bowel sounds, soft to palpation, non-tender and non-distended Extremity Extremity Narrative: There is marked swelling of the left knee noted with decreased range of motion to flexion and extension. Knee is tender to palpation Skin no rashes or lesions noted General Skin Exam: no breakdown Neuro oriented x3, CN's II-XII intact bilaterally, no focal motor deficits and no sensory deficits noted Sensorium / Orientation: awake and alert Speech: speech normal Psych affect normal Assessment & Plan Assessment/Plan (1) Inflammatory arthritis: PLAN: Plan 1. Internal derangement of the left knee with hemarthrosis-I suspect the left knee may have a tear, the other possibility is that she has septic arthritis in the left knee. #2 hyperlipidemia-patient is on a statin #3 chronic depression-patient is on Effexor #4 neuropathy-patient is on gabapentin Total clinical time spent by myself addressing the patient's medical issues, reviewing all of her data, and collaborating with patient's care team: 35 minutes Charges/Coding Visit Charges Inpatient E&M: 76254 Subs Hosp L2
[2024-08-24] MEDS: Morphine 2 MG/ML Syringe IV (11:07)
[2024-08-24] MEDS: Vancomycin IV 1,000 MG/200 ML BAG 200 MG IV (13:04)
[2024-08-24] MEDS: Gabapentin 400 MG Capsule PO (14:18)
--- NOTE | 2024-08-24 14:45 | CASEMGMT ---
Addendum entered by Wiliam Caraballo 08/24/24 16:01: Strata: 1 Original Note: RN?CM?EQUINE BREEDER?CM?to room to meet with patient for initial transition planning/care coordination?assessment.?RN?CM?introduced self and role at [facility].? Pt voices understanding and consents to?assessment?at this time.? Pt resting in bed in no distress at this time.?, Ghulam, @ bedside. Pt is A/O at this time and answers all questions appropriately.?? Care providers, pharmacy, and demographics verified/updated at this time. PCP: Dr Black Specialists:Dr Shah-ortho, Dr Chavez-alisha mgxiang, Dr Peacock-clinic charge nurse Preferred Pharmacy: [facility] Retail @ discharge. Insurance: [facility], MMO Prescription Benefit:?Yes LNOK: , Ghulam. Daughter, Lilly. Living Arrangements: Lives w/ in one-story home w/basement (pt does not have to go down) and 2 steps to enter home w/handrail. Independent w/ADL's and IADL's @ baseline. able to assist. Transportation:?Pt states drives self and states no transportation concerns at this time.? also drives. DME: ?States has the following DME:?toilet side rails, implanted spinal nerve stimulator, CPAP. Pt also has available, but does not use: shower chair, quad cane, several walkers. Pt states no need for further DME at this time.? HHC/SNF: No hx of either. Awaiting Dr Pablo ivey to determine next steps. PT/OT evals are also pending. Pt wishes to discharge home, if able. CM?to follow for any discharge planning/needs.? Pt and voice no further concerns/needs at this time.? Advised them to ask for?CM?if any questions/concerns/needs arise.? They voice understanding. PLAN:??TBD pending course of treatment and progress w/therapy. Chantell TRIPATHIN?RN?CM
--- NOTE | 2024-08-24 15:05 | CON.PCM.OR_ITS ---
HPI Consult Data Date of Consult: 08/24/24 HPI Narrative Reason for Consultation: Left knee pain and effusion HPI Narrative: EPI LANDAVERDE, is a 68 F who presents severe left knee pain and effusion. Patient was walking in the grocery store yesterday when she started to have severe pain and swelling. She was unable to ambulate she was in the emergency department. Aspiration was performed. Patient was noted to have bloody fluid in the joint. No specific trauma was noted. CT scan and MRI have been performed. CT scan consistent with significant degenerative changes. There is a read for an avulsion however it appears to be well-corticated and chronic without acute. Patient presents today with 5 out of 10 pain worse with motion better with immobilization. She notes her range of motion is better. She feels her swelling significantly improved from yesterday. Aspiration results showed roughly 3000 0 white blood cells which is not consistent with infectious etiology. Patient was placed on vancomycin overnight and made n.p.o. There was an MRI performed today. No read is in the chart as of yet. Patient is known to me with bilateral knee osteoarthritis. She was supposed to have right total knee replacement but developed viral infection which has postpone surgery. [facility] Medical History Encounter for pre-operative cardiovascular clearance Abnormal EKG SOB (shortness of breath) Other hammer toe(s) (acquired), left foot Degenerative spondylolisthesis Left knee DJD Right knee DJD Fibromyalgia CFIDS (chronic fatigue and immune dysfunction syndrome) MRSA (methicillin resistant Staphylococcus aureus) colonization Low iron History of IBS Depression Anxiety Arthritis High cholesterol Back pain Injury of back Injury of head and neck CPAP (continuous positive airway pressure) dependence Hypertension Home Medications ?Medication ?Instructions ?Recorded ?Last Taken ?Type diclofenac sodium 100 mg 75 mg PO BID NSAID 11/19/16 08/23/24 History tablet,extended release 24 hr venlafaxine 150 mg tablet,extended 150 mg PO BID Antid epressant 11/19/16 08/23/24 History release 24 hr antiarthritic combination no.2 900 900 mg PO BID Antia rthritis 12/02/20 08/23/24 History mg tablet (glucosamine-chondroitin) cholecalciferol (vitamin D3) 50 50 mcg PO DAILY Supple ment 12/02/20 08/23/24 History mcg (2,000 unit) capsule ferrous gluconate 324 mg (37.5 mg 324 mg PO DAILY Iron Supplement 12/02/20 08/23/24 History iron) tablet fluticasone propionate 50 1 spray intranasal DAILY All ergies 12/02/20 08/23/24 History mcg/actuation nasal spray,suspension (Flonase Allergy Relief) folic acid 400 mcg tablet 0.4 mg PO DAILY Supplement 0 12/02/20 08/23/24 History gabapentin 400 mg capsule 400 mg PO 4X/DAY Neuropathy 12/02/20 08/23/24 History magnesium citrate 100 mg capsule 100 mg PO DAILY Suppl ement 12/02/20 08/23/24 History melatonin 10 mg capsule 10 mg PO QHS PRN PRN sleep 0 12/02/20 08/22/24 History tramadol 50 mg tablet 50 mg PO BID PRN PRN pain 08/23/24 History vitamin E mixed 400 unit capsule 400 unit PO DAILY Sup plement 12/02/20 08/23/24 History lisinopril 10 mg tablet 10 mg PO DAILY Blood pressur e 08/13/21 08/23/24 History calcium carbonate 600 mg PO QHS Supplement 08/23/24 History clobetasol 0.05 % topical ointment 1 applic topical .w eekly swelling 09/24/23 08/17/24 History rosuvastatin 5 mg tablet 5 mg PO QHS Cholesterol pill 09/24/23 08/22/24 History turmeric 400 mg capsule 400 mg PO DAILY Supplement 0 09/24/23 08/23/24 History ascorbic acid (vitamin C) 1,000 mg 1,000 mg PO DAILY S upplement 06/21/24 08/23/24 History tablet,extended release (C Complex) aspirin 81 mg capsule 81 mg PO DAILY Antiplatelet 06/21/24 08/23/24 History Allergy/AdvReac Type Severity Reaction Status Date / Time Sulfa (Sulfonamide Allergy Hives Verified 08/24/24 00:42 Antibiotics) Family History Mother Heart disease Surgical History S/P cervical spinal fusion History of toe surgery Hx of left cataract extraction Hx of right cataract extraction Hx of spinal surgery Hx of thumb surgery History of bunionectomy of right great toe Hx of ovarian cystectomy Hx of cervical spine surgery Hx of hand surgery History of bunionectomy of left great toe History of bunionectomy of left great toe Social History household members: spouse Smoking Status: Never smoker ROS ROS Narrative 14 point review of systems outside of as mentioned in the HPI is negative. Patient does report with a viral infection she has had waxing and waning temperatures. Vital Signs Vital Signs Vital Signs: 08/23/24 17:05 08/23/24 19:04 08/23/24 21:00 Temperature 98.4 F Temperature Source Oral Pulse Rate 78 80 80 Respiratory Rate 16 16 17 Respiratory Effort Respiratory Depth Respiratory Pattern Blood Pressure 124/99 H 130/62 H 140/86 H Blood Pressure Mean 107 84 104 Blood Pressure Source Blood Pressure Position Blood Pressure Location Pulse Ox 98 97 97 Oxygen Delivery Method Room Air Room Air 08/23/24 21:14 08/23/24 23:00 08/24/24 00:10 Temperature 98.6 F 98.5 F Temperature Source Oral Pulse Rate 75 90 71 Respiratory Rate 20 H 18 16 Respiratory Effort Respiratory Depth Respiratory Pattern Blood Pressure 129/71 H 131/80 H 135/65 H Blood Pressure Mean 90 97 88 Blood Pressure Source Monitor Blood Pressure Position Semi-Fowlers Blood Pressure Location Right Arm Pulse Ox 95 98 94 Oxygen Delivery Method Room Air Room Air 08/24/24 00:10 08/24/24 01:00 08/24/24 04:25 Temperature 98.5 F Temperature Source Oral Pulse Rate 71 Respiratory Rate 16 Respiratory Effort Normal Non-Labored Normal Non-Labored Respiratory Depth Normal Normal Respiratory Pattern Normal Normal Blood Pressure 135/35 H Blood Pressure Mean 68 Blood Pressure Source Blood Pressure Position Blood Pressure Location Pulse Ox 94 Oxygen Delivery Method Room Air Room Air Room Air 08/24/24 04:27 08/24/24 05:30 08/24/24 07:11 Temperature 98.0 F Temperature Source Oral Pulse Rate 81 Respiratory Rate 16 Respiratory Effort Respiratory Depth Respiratory Pattern Blood Pressure 108/55 L Blood Pressure Mean 72 Blood Pressure Source Monitor Blood Pressure Position Supine Blood Pressure Location Right Arm Pulse Ox 94 94 93 Oxygen Delivery Method Room Air Room Air Room Air 08/24/24 08:31 08/24/24 08:52 08/24/24 09:15 Temperature 98.4 F 98.4 F Temperature Source Oral Oral Pulse Rate 87 87 Respiratory Rate 14 14 Respiratory Effort Respiratory Depth Respiratory Pattern Blood Pressure 123/65 H 123/65 H Blood Pressure Mean 84 84 Blood Pressure Source Monitor Blood Pressure Position Semi-Fowlers Blood Pressure Location Right Arm Pulse Ox 93 93 Oxygen Delivery Method Room Air Room Air Room Air 08/24/24 14:16 Temperature 98.4 F Temperature Source Oral Pulse Rate 78 Respiratory Rate 18 Respiratory Effort Respiratory Depth Respiratory Pattern Blood Pressure 115/58 L Blood Pressure Mean 77 Blood Pressure Source Monitor Blood Pressure Position Semi-Fowlers Blood Pressure Location Right Arm Pulse Ox 97 Oxygen Delivery Method Room Air Weight Weight: 175 lb 7.807 oz Body Mass Index (BMI) 27.4 Physical Exam Const alert and oriented x3 HEENT normocephalic Eyes PERRL Neck no JVD Resp normal respiratory effort Cardio regular rate GI non-distended Extremity Extremity Narrative: Left lower extremity: Left knee does have ecchymosis. Range of motion actively and passively without significant pain to 90 degrees. Does have increased pain with flexion past 90 degrees. Large effusion. Stable to varus and valgus stress. Mild tenderness palpation over the medial joint line. Crepitus with range of motion of patellofemoral joint. Neurovascular intact distally Skin Skin Narrative: Ecchymosis over left knee Neuro CN's II-XII intact bilaterally and moves all extremities Psych affect normal Medical Records Data Attestation: I reviewed the patient's medical records Lab / Micro Data 08/24/24 04:35 08/24/24 04:35 Labs: Laboratory Results - last 24 hr 08/23/24 05:36: Urine Color Yellow, Urine Clarity Sl. Cloudy, Urine pH 6.0, Ur Specific [place] 1.010, Urine Protein 15 H, Urine Glucose (UA) Normal, Urine Ketones Negative, Urine Occult Blood 25 H, Urine Nitrite Negative, Urine Bilirubin Negative, Urine Urobilinogen Normal, Ur Leukocyte Esterase 25 H, Urine RBC 0-5 SEEN, Urine WBC 0 SEEN, Ur Squamous Epith Cells 0-5 SEEN, Urine Bacteria 0 SEEN, Urine Mucus 0 SEEN 08/23/24 21:45: Fluid Crystals NO CRYSTALS SEEN, Fluid Crystal Source SYNOVIAL, Fl Crystal Path Review Will follow, Synovial Source LEFT KNEE, Synovial Color Bloody, Synovial Appearance Turbid, Synovial WBC 2.9880 H, Synovial RBC 2.329 H, Synovial Tot Cell Ct 2.9920 H, Synov Polynuclear WBCs 1.969, Synov Mononuclear WBCs 1.019, Synovial Neutrophils 62 H, Synovial Lymphocytes 33, Synovial Monocytes 5, Synovial Polynuclear % 65.9, Synovial Mononuclear % 34.1, Synovial Path Comment August08/23/24 22:39: WBC 12.8 H, RBC 4.64, Hgb 11.1 L, Hct 35.8 L, MCV 77.2 L, MCH 23.9 L, MCHC 31.0 L, RDW Std Deviation 38.9, RDW Coeff of Tiana 13.9, Plt Count 377, MPV 8.8, Immature Gran % (Auto) 0.200, Neut % (Auto) 86.9 H, Lymph % (Auto) 10.3 L, [place] % (Auto) 2.2, Eos % (Auto) 0.2, Baso % (Auto) 0.2, Absolute Neuts (auto) 11.1 H, Absolute Lymphs (auto) 1.32, Nucleated RBC % 0, ESR 12, Sodium 139, Potassium 4.4, Chloride 106, Carbon Dioxide 22.4, Anion Gap 11, BUN 17, Creatinine 0.94, Estim Creat Clear Calc 63.59, Est GFR (MDRD) Non-Af 66, BUN/Creatinine Ratio 18.1, Glucose 119 H, Calcium 9.4, Magnesium 2.4 H, Iron 44 L, TIBC 296, Iron Saturation 14.9, Unsaturated IBC 252, Ferritin 197, C-React Prot Ext Range < 3.00, TSH 2.070 08/24/24 04:35: WBC 13.3 H, RBC 4.29, Hgb 10.3 L, Hct 33.6 L, MCV 78.3 L, MCH 24.0 L, MCHC 30.7 L, RDW Std Deviation 39.8, RDW Coeff of Tiana 13.9, Plt Count 346, MPV 8.7, Immature Gran % (Auto) 0.400, Neut % (Auto) 91.5 H, Lymph % (Auto) 7.3 L, [place] % (Auto) 0.7, Eos % (Auto) 0.0, Baso % (Auto) 0.1, Absolute Neuts (auto) 12.2 H, Absolute Lymphs (auto) 0.97, Nucleated RBC % 0, Sodium 139, Potassium 4.8, Chloride 107, Carbon Dioxide 22.1, Anion Gap 11, BUN 16, Creatinine 0.96, Estim Creat Clear Calc 60.88, Est GFR (MDRD) Non-Af 65, BUN/Creatinine Ratio 16.3, Glucose 162 H, Calcium 8.9, Phosphorus 3.4, Total Bilirubin 0.17, AST 22, ALT 24, Alkaline Phosphatase 80, Total Protein 6.2, Albumin 3.9, Globulin 2.3, Albumin/Globulin Ratio 1.7 Micro: Microbiology 08/23/24 21:45 Fluid - Synovial (joint) Gram Stain - Final 08/23/24 21:45 Fluid - Synovial (joint) Body Fluid Culture - Preliminary No growth-Final to follow Imaging Radiology Impression Lower Extremity CT 08/23/24 18:12 IMPRESSION: 1. Moderate knee joint effusion with mixed density contents, which could represent hemarthrosis, with septic arthritis also possible. Additional considerations include synovial osteochondromatosis, pigmented villonodular synovitis, or other synovial pathologies. Consider fluid sampling. 2. Intra-articular loose bodies adjacent to the lateral pole of the patella measuring up to 1.7 cm, and adjacent to the tibial spine measuring 0.6 cm. There is concavity of the lateral patellar facet, which may be a donor site for these fragments. 3. Xwup-ef-umefmwyn osteoarthritis of the knee. Reading Location: [facility] Left knee MRI was reviewed independently. No radiologist read yet. Images are consistent with significant degenerative changes. There is subchondral cyst in the trochlea of the femur. There are degenerative meniscus tears noted. Significant edema over the anterior lateral knee likely from the puncture site from the aspiration. Massive effusion Assessment & Plan Assessment/Plan (1) Unilateral primary osteoarthritis, left knee: PLAN: Patient has severe left knee osteoarthritis with acute hemarthrosis. Effusion is quite painful for the patient. She is demonstrating difficulty with ambulation. Her is at bedside and agrees with this. However, none of her lab work is consistent with infectious etiology. Likely risks of continuing the patient on antibiotics outweigh any benefit she has at this time in regards to treatment for left knee hemarthrosis. Aspiration and lab results were reviewed including normal ESR and CRP and aspiration more consistent with inflammatory arthropathy than septic arthropathy. Finally, patient did have an aspiration with described bloody fluid. She did not wish to undergo any further aspiration at this time. Explained the patient the natural history of this disease process and available treatment options. At this time I would recommend continued pain control and physical therapy. I will place orders for the patient to be weightbearing as tolerated. I will place order to have physical therapy. She should be ambulation as tolerated for activity. Please call orthopedics any further questions or concerns otherwise I will follow the final MRI read peripherally and recommend patient return to the office for continued follow-up upon discharge. (2) Hemarthrosis:
--- NOTE | 2024-08-24 15:44 | CHAPLAIN ---
Type of Pastoral Visit _x__ Initial Visit ___ Follow-up Visit ___ On-call Visit ___ General Patient Visit ___ Spiritual Assessment ___ Family Conference ___ Bereavement ___ Rapid Response ___ Code Blue ___ Other (describe below) Pastoral Care Referral From _x__ Patient ___ Family ___ Nurse ___ Physician ___ Cement Sack Breaker ___ [employer] Teacher ___ Other (describe below) Sacrament/Intervention _x__ Active listening ___ Anointing ___ Sabianist ___ Bereavement ___ Communion _x__ Lawanda exploration ___ _x__ Life review _x__ Prayer ___ Reconciliation ___ Sacrament of Sick _x__ Supportive presence ___ Wedding ___ Other (describe below) Pastoral Comments patient and spouse are in the room together and both are welcoming and talkative; pt explains the situation and her pain levels; pt is waiting on results from tests and what will be done; pt and spouse both are lawanda focused and look to God for their help; spouse had worked in a [employer] and in other technology manager roles; life review and presence along with prayer
--- NOTE | 2024-08-24 17:03 | DCINST_ITS ---
Discharge Instructions DC O2, CPAP, BIPAP needs Home O2 Discharge instructions: No Dressing / Incision Discharge Activity: - (Weightbearing as tolerated on left leg) Follow Up Care Test Results: Test results from this visit will be discussed in further detail at your follow- up appointment, if applicable. Discharge Plan Admission Admit Date/Time: 08/23/24 23:35 Primary Reason for Your Visit: Left knee pain Attending Provider: Sanjay Moe Primary Care Provider: Jael Black Consulting Providers: Yon Shah; Melchor Vilchis Instructions Patient Instructions: ED Fall Prevention Additional Instructions / Restrictions: DISCHARGE INSTRUCTIONS PLEASE READ *Please take this with you to your next doctors appointment* - Please follow-up with Dr. Shah, the orthopedic doctor, in 2 weeks. Contact information provided below, please call to schedule this follow-up appointment on discharge -You will be weightbearing as tolerated on your left leg -Pain medication was sent into your preferred pharmacy on file -Please call your primary care provider's office upon discharge to schedule a hospital follow up within 1 week. -For any concerning signs or symptoms please call 911 or proceed to the nearest emergency department Discharge Orders/Prescriptions Prescriptions: New hydrocodone-acetaminophen 5-325 mg tablet 1 tab PO Q6H PRN (Reason: pain) 5 Days Qty: 20 0RF Continued gabapentin 400 mg capsule 400 mg PO 4X/DAY Patient Comments: TAKE 1 CAPSULE BY MOUTH FOUR TIMES DAILY folic acid 400 mcg tablet 0.4 mg PO DAILY melatonin 10 mg capsule 10 mg PO QHS PRN PRN (Reason: sleep) magnesium citrate 100 mg capsule 100 mg PO DAILY ferrous gluconate 324 mg (37.5 mg iron) tablet 324 mg PO DAILY vitamin E mixed 400 unit capsule 400 unit PO DAILY cholecalciferol (vitamin D3) 50 mcg (2,000 unit) capsule 50 mcg PO DAILY glucosamine-chondroitin 900 mg tablet 900 mg PO BID fluticasone propionate [Flonase Allergy Relief] 50 mcg/actuation spray,suspe nsion 1 spray intranasal DAILY Rx Instructions: administer into each nostril lisinopril 10 mg tablet 10 mg PO DAILY diclofenac sodium 100 MG tablet extended release 24 hr 75 mg PO BID Patient Comments: venlafaxine 150 MG tablet extended release 24hr 150 mg PO BID C Complex 1,000 mg tablet extended release 1,000 mg PO DAILY aspirin 81 mg capsule 81 mg PO DAILY rosuvastatin 5 mg tablet 5 mg PO QHS turmeric 400 mg capsule 400 mg PO DAILY calcium carbonate 600 mg calcium (1,500 mg) tablet 600 mg PO QHS clobetasol 0.05 % ointment 1 applic topical .weekly Rx Instructions: Discontinued tramadol 50 mg tablet 50 mg PO BID PRN PRN (Reason: pain) Referrals / Follow Up: Jael Black MD [Primary Care Provider] - Within 1 Week Yon Shah MD [Med Staff - Active Staff] - Within 2 Weeks Disposition Disposition (needs filled in before D/C Order can be placed): Home, Self Care
--- NOTE | 2024-08-25 07:52 | DS.PCM_ITS ---
Providers Date of Admission: 08/23/24 Date of Discharge: 08/24/24 Primary Care Physician: Dr. Jael Black MD Consultations 08/24/24 00:32 Consult: Orthopedics Routine Consulting Provider: Yon Shah Reason for Consult: Left Knee Pain and possible Septic Arthritis. EMERGENT Consult: No MD Notified: Yes Date Notified: 08/23/24 Time Notified: 23:38 Method of Notification: ED Physician Initiated Reason For Visit: SUSPECTED LEFT KNEE ARTHRITIS; LEFT KNEE PAIN & Diagnosis Discharge Diagnosis (1) Unilateral primary osteoarthritis, left knee: Status: Acute Code(s): M17.12 - Unilateral primary osteoarthritis, left knee (2) Hemarthrosis: Status: Acute Code(s): M25.00 - Hemarthrosis, unspecified joint Plan 1. Osteoarthritis of the left knee with hemarthrosis #2 hyperlipidemia-patient is on a statin #3 chronic depression-patient is on Effexor #4 neuropathy-patient is on gabapentin Septic left knee joint was ruled out Total clinical time spent by myself addressing the patient's medical issues, reviewing all of her data, and collaborating with patient's care team: 35 minutes Medications at Discharge Home Medications diclofenac sodium 100 mg tablet,extended release 24 hr 75 mg PO BID NSAID 11/19/16 venlafaxine 150 mg tablet,extended release 24 hr 150 mg PO BID Antidepressant 11/19/16 antiarthritic combination no.2 900 mg tablet (glucosamine-chondroitin) 900 mg PO BID Antiarthritis 12/02/20 cholecalciferol (vitamin D3) 50 mcg (2,000 unit) capsule 50 mcg PO DAILY Supplement 12/02/20 ferrous gluconate 324 mg (37.5 mg iron) tablet 324 mg PO DAILY Iron Supplement 12/02/20 fluticasone propionate 50 mcg/actuation nasal spray,suspension (Flonase Allergy Relief) 1 spray intranasal DAILY Allergies 12/02/20 folic acid 400 mcg tablet 0.4 mg PO DAILY Supplement 12/02/20 gabapentin 400 mg capsule 400 mg PO 4X/DAY Neuropathy 12/02/20 magnesium citrate 100 mg capsule 100 mg PO DAILY Supplement 12/02/20 melatonin 10 mg capsule 10 mg PO QHS PRN PRN sleep 12/02/20 vitamin E mixed 400 unit capsule 400 unit PO DAILY Supplement 12/02/20 lisinopril 10 mg tablet 10 mg PO DAILY Blood pressure 08/13/21 calcium carbonate 600 mg PO QHS Supplement 09/24/23 clobetasol 0.05 % topical ointment 1 applic topical .weekly swelling 09/24/23 rosuvastatin 5 mg tablet 5 mg PO QHS Cholesterol pill 09/24/23 turmeric 400 mg capsule 400 mg PO DAILY Supplement 09/24/23 ascorbic acid (vitamin C) 1,000 mg tablet,extended release (C Complex) 1,000 mg PO DAILY Supplement 06/21/24 aspirin 81 mg capsule 81 mg PO DAILY Antiplatelet 06/21/24 hydrocodone-acetaminophen 5-325mg 5mg-325mg 1 tab PO Q6H PRN pain 5 days #20 tabs 08/24/24 Hospital Course Operations None Procedures None Summary of Care Provided Minutes Spent on Discharge: 31 Hospital Course: This 68-year-old white female was seen in the emergency room at [facility] with complaints of swelling and pain in her left knee. Patient denied any trauma. CT was performed, there was noted to be a moderate left knee joint effusion with mixed density contents which could represent hemarthrosis, it was read out as possibly indicating also septic arthritis. There is also noted to be intra-articular loose bodies adjacent to the lateral pole of the patella. There was also noted to be mild to moderate osteoarthritis of the knee. The left knee was aspirated in the emergency room-5 to cc of bloody fluid was removed. There was concerns of septic arthritis and so the patient was admitted to PCU and started on IV antibiotics. She was seen by PT and OT and ultimately she was seen by orthopedic surgery. MRI was performed and according to orthopedic surgery, there was no evidence of any fracture or tearing of the meniscus noted. Orthopedic surgery recommended antibiotics be stopped and the patient could be sent home with weightbearing as tolerated. On the evening of 08/24/2024, patient requested to be discharged home: On examination she appeared in good health and spirits, she does not appear to be in any distress. Vital signs as documented. Skin warm and dry and without overt rashes. Neck without JVD, thyroid appears normal, trachea is midline, neck is supple. Lungs clear, normal air movement was noted. Heart exam notable for regular rhythm, normal sounds and absence of murmurs, rubs or gallops. Abdomen unremarkable and without evidence of organomegaly, masses, or abdominal aortic enlargement, bowel sounds are present in all 4 quadrants, no abdominal tenderness was noted. Extremities nonedematous, no cyanosis was noted, no clubbing was noted. There was noted to be a left knee effusion noted on palpation. Neuro: Cranial nerves II through XII are grossly intact, no focal motor deficits were noted, sensation to light touch and pinprick is intact, motor exam 5/5 throughout. Psych: Patient is alert and oriented x3, she does not appear anxious or depressed, she does not appear agitated. Patient was discharged home in stable condition on 08/24/2024. Weight / BMI Weight Weight: 79.6 kg Body Mass Index (BMI) 27.4 ABG / Lab / Microbiology Data 08/24/24 04:35 08/24/24 04:35 Laboratory: Laboratory Results - last 24 hr 08/23/24 05:36: Urine Color Yellow, Urine Clarity Sl. Cloudy, Urine pH 6.0, Ur Specific [place] 1.010, Urine Protein 15 H, Urine Glucose (UA) Normal, Urine Ketones Negative, Urine Occult Blood 25 H, Urine Nitrite Negative, Urine Bilirubin Negative, Urine Urobilinogen Normal, Ur Leukocyte Esterase 25 H, Urine RBC 0-5 SEEN, Urine WBC 0 SEEN, Ur Squamous Epith Cells 0-5 SEEN, Urine Bacteria 0 SEEN, Urine Mucus 0 SEEN Microbiology: Microbiology 08/23/24 21:45 Fluid - Synovial (joint) Gram Stain - Final 08/23/24 21:45 Fluid - Synovial (joint) Body Fluid Culture - Preliminary No growth-Final to follow Radiography Diagnostic Testing: Radiology Impression Lower Extremity MRI 08/24/24 01:40 IMPRESSION: 1. Tiny 5 mm fracture of the medial femoral condyle with adjacent edema, at the MCL attachment site where there is a low-grade tear and small cyst. No complete MCL rupture. 2. Severe patellofemoral osteoarthritis with large joint effusion. Mild lateral compartment OA. 3. No imaging features of septic arthritis although arthrocentesis would be definitive. 4. No meniscal or cruciate ligament tear. Reading Location: [facility] D/C Instructions DC O2, CPAP, BIPAP Needs Home O2 Discharge instructions: No Meaningful Use Info Meaningful Use Meaningful Use Diagnoses (Choose all that apply): None applicable Ischemic Stroke Statin Dosing Therapy Reference: STATIN DOSE THERAPY REFERENCE: * Patients > 75 years receive moderate or high dose statin therapy. * Patients 75 years or YOUNGER should receive HIGH intensity statin dose unless contraindicated. You will be required to document reason for non-treatment if statin daily dose does not meet guidelines. HIGH DOSE STATIN THERAPY DAILY Atorvastatin > than or = to 40 mg Rosuvastatin > than or = to 20 mg Amlodipine + Atorvastatin > than or = to 2.5/40 mg Ezetimibe + Simvastatin 10/80 mg Simvastatin 80mg Discharge Plan Admission Admit Date/Time: 08/23/24 23:35 Primary Reason for Your Visit: Left knee pain Attending Provider: Sanjay Moe Primary Care Provider: Jael Black Consulting Providers: Yon Shah; Melchor Vilchis Instructions Patient Instructions: ED Fall Prevention Additional Instructions / Restrictions: DISCHARGE INSTRUCTIONS PLEASE READ *Please take this with you to your next doctors appointment* - Please follow-up with Dr. Shah, the orthopedic doctor, in 2 weeks. Contact information provided below, please call to schedule this follow-up appointment on discharge -You will be weightbearing as tolerated on your left leg -Pain medication was sent into your preferred pharmacy on file -Please call your primary care provider's office upon discharge to schedule a hospital follow up within 1 week. -For any concerning signs or symptoms please call 911 or proceed to the nearest emergency department Discharge Orders/Prescriptions Prescriptions: New hydrocodone-acetaminophen 5-325 mg tablet 1 tab PO Q6H PRN (Reason: pain) 5 Days Qty: 20 0RF Continued gabapentin 400 mg capsule 400 mg PO 4X/DAY Patient Comments: TAKE 1 CAPSULE BY MOUTH FOUR TIMES DAILY folic acid 400 mcg tablet 0.4 mg PO DAILY melatonin 10 mg capsule 10 mg PO QHS PRN PRN (Reason: sleep) magnesium citrate 100 mg capsule 100 mg PO DAILY ferrous gluconate 324 mg (37.5 mg iron) tablet 324 mg PO DAILY vitamin E mixed 400 unit capsule 400 unit PO DAILY cholecalciferol (vitamin D3) 50 mcg (2,000 unit) capsule 50 mcg PO DAILY glucosamine-chondroitin 900 mg tablet 900 mg PO BID fluticasone propionate [Flonase Allergy Relief] 50 mcg/actuation spray,suspension 1 spray intranasal DAILY Rx Instructions: administer into each nostril lisinopril 10 mg tablet 10 mg PO DAILY diclofenac sodium 100 MG tablet extended release 24 hr 75 mg PO BID Patient Comments: venlafaxine 150 MG tablet extended release 24hr 150 mg PO BID C Complex 1,000 mg tablet extended release 1,000 mg PO DAILY aspirin 81 mg capsule 81 mg PO DAILY rosuvastatin 5 mg tablet 5 mg PO QHS turmeric 400 mg capsule 400 mg PO DAILY calcium carbonate 600 mg calcium (1,500 mg) tablet 600 mg PO QHS clobetasol 0.05 % ointment 1 applic topical .weekly Rx Instructions: Discontinued tramadol 50 mg tablet 50 mg PO BID PRN PRN (Reason: pain) Referrals / Follow Up: Jael Black MD [Primary Care Provider] - Within 1 Week Yon Shah MD [Med Staff - Active Staff] - Within 2 Weeks Disposition Disposition (needs filled in before D/C Order can be placed): Home, Self Care Charges/Coding Visit Charges Inpatient E&M: 48267 Disch Hosp >30min
== END 2024-08-24 18:03 | disposition home or self-care (01) | DRG 554 ==
LOC: ED 21:16 → PCU 08-24 00:02
PROVIDERS: Admitting Provider Internal Medicine; Emergency Provider Surgery; PCP Internal Medicine; Visit Provider Internal Medicine
DX: M17.12 Unilateral primary osteoarthritis, left knee (principal); M25.062 Hemarthrosis, left knee; D50.9 Iron deficiency anemia, unspecified; I10 Essential (primary) hypertension; F32.9 Major depressive disorder, single episode, unspecified; M43.12 Spondylolisthesis, cervical region; F41.8 Other specified anxiety disorders; K58.9 Irritable bowel syndrome, unspecified; R26.2 Difficulty in walking, not elsewhere classified; M79.7 Fibromyalgia; G62.9 Polyneuropathy, unspecified; E78.5 Hyperlipidemia, unspecified; M25.462 Effusion, left knee; B95.62 Methicillin resistant Staphylococcus aureus infection as the cause of diseases classified elsewhere; Z68.28 Body mass index [BMI] 28.0-28.9, adult; Z79.1 Long term (current) use of non-steroidal anti-inflammatories (NSAID); E66.3 Overweight; Z98.1 Arthrodesis status; Z99.89 Dependence on other enabling machines and devices; Z79.82 Long term (current) use of aspirin
CPT/HCPCS: 36415; 73700; 73723; 80048; 80053; 81001; 82728; 83540; 83550; 83735; 84100; 84443; 85025; 85652; 86140; 87040; 87070; 87075; 87205; 89050; 89051; 89060; 93005; 94668; 97161; 97166; 99285; A9575; A4216; J2405

== ENCOUNTER 2024-11-11 17:36 | Emergency (ER) | payer MEDICARE, OTHER, SELFPAY ==
[2024-11-11 17:37] VITALS: BP 106/56; PULSE 89; RESP 16; TEMP 36.9; O2SAT 96; BMI 28.3
--- OUTSIDE RECORDS SUMMARY | 2024-11-11 18:06 | XMS RPT_ITS | CCD ---
Author Organization [facility]Syn[facility] Care Team Providers Care Lacrosse Coach Name Role Phone Eriberto Tovar MD Primary Care Provider ERIBERTO TOVAR Primary Care Unavailable VANIA RODAS Admitting Unavailable VANIA RODAS Referring Unavailable RICHY DOMINGUEZ Referring Unavailable TALAMPASHKAN, ERIBERTO D Primary Care Unavailable VANIA RODAS Attending Unavailable RICHY DOMINGUEZ Admitting Unavailable Eriberto Tovar MD Primary Care Provider Eriberto Tovar MD Primary Care Provider LA ERIBERTO Shweta Referring Unavailable TALAMPAS, ERIBERTO D Primary Care Unavailable Yates COCOA ROOM OPERATOR.OPERATOR HELPER, Sanjay Unavailable Jaime COCOA ROOM OPERATOR.BODY TEAM MEMBER, Richy Unavailable Jaime COCOA ROOM OPERATOR.BODY TEAM MEMBER, Richy Unavailable Jaime COCOA ROOM OPERATOR.BODY TEAM MEMBER, Richy Unavailable Jaime COCOA ROOM OPERATOR.BODY TEAM MEMBER, Richy Unavailable Yates COCOA ROOM OPERATOR.OPERATOR HELPER, Sanjay Unavailable Yates COCOA ROOM OPERATOR.OPERATOR HELPER, Sanjay Unavailable DR ERIBERTO TOVAR MD Primary Care Physician LA ERIBERTO D Referring Unavailable TALAMPAS, ERIBERTO D Primary Care Unavailable TALAMPAS, ERIBERTO D Primary Care Unavailable YATES, SANJAY Referring Unavailable TALAMPAS, ERIBERTO D Primary Care Unavailable MAYELA LUNA Referring Unavailable JONE CHOE Attending Unavailable ASADAMPASHKAN, ERIBERTO D Referring Unavailable TALAMPAS, ERIBERTO D Primary Care Unavailable TALAMPAS, ERIBERTO D Primary Care Unavailable RICHY DOMINGUEZ Referring Unavailable TALAMPAS, ERIBERTO D Referring Unavailable TALAMPAS, ERIBERTO D Attending Unavailable TALAMPAS, ERIBERTO D Primary Care Unavailable YATES, SANJAY Attending Unavailable SELF Referring Unavailable TALAMPAS, ERIBERTO D Primary Care Unavailable YATES, SANJAY Attending Unavailable TALAMPAS, ERIBERTO D Primary Care Unavailable TALAMPAS, ERIBERTO D Primary Care Unavailable YATES, SANJAY Attending Unavailable TALAMPAS, ERIBERTO D Primary Care Unavailable YATES, SANJAY Attending Unavailable TALAMPAS, ERIBERTO D Primary Care Unavailable YATES, SANJAY Attending Unavailable TALAMPAS, ERIBERTO D Primary Care Unavailable TALAMPAS, ERIBERTO D Attending Unavailable TALAMPAS, ERIBERTO D Referring Unavailable TALAMPAS, ERIBERTO D Primary Care Unavailable TALAMPAS, ERIBERTO D Referring Unavailable TALAMPAS, ERIBERTO D Primary Care Unavailable TALAMPAS, ERIBERTO D Primary Care Unavailable TALAMPAS, ERIBERTO D Attending Unavailable GABRIELA BRITT Attending Unavailable TALAMPAS, ERIBERTO D Primary Care Unavailable TALAMPAS, ERIBERTO D Primary Care Unavailable TALAMPAS, ERIBERTO D Attending Unavailable TALAMPAS, ERIBERTO D Primary Care Unavailable TALAMPAS, ERIBERTO D Primary Care Unavailable MAYELA LUNA Attending Unavailable TALAMPAS, ERIBERTO D Primary Care Unavailable YATES, SANJAY Referring Unavailable TALAMPAS, ERIBERTO D Referring Unavailable TALAMPAS, ERIBERTO D Primary Care Unavailable TALAMPAS, ERIBERTO D Primary Care Unavailable TALAMPAS, ERIBERTO D Attending Unavailable TALAMPAS, ERIBERTO D Primary Care Unavailable YATES, SANJAY Attending Unavailable SELF Referring Unavailable TALAMPAS, ERIBERTO D Primary Care Unavailable YATES, SANJAY Referring Unavailable TALAMPAS, ERIBERTO D Primary Care Unavailable YATES, SANJAY Referring Unavailable TALAMPAS, ERIBERTO D Primary Care Unavailable STANLEY BLAIR Attending Unavailable TALAMPAS, ERIBERTO D Primary Care Unavailable RICHY DOMINGUEZ Attending Unavailable Justine Romano Attending Unavailable Talampas, Eriberto D Primary Care Unavailable Nahum Peacock Attending Unavailable Talampas, Eriberto D Referring Unavailable Talampas, Eriberto D Primary Care Unavailable Justine Romano Attending Unavailable Talampas, Eriberto D Primary Care Unavailable Justine Romano Attending Unavailable Talampas, Eriberto D Primary Care Unavailable Justine Romano Attending Unavailable Talampas, Eriberto D Primary Care Unavailable Jose L Barrios Attending Unavailable Jose L Barrios Referring Unavailable Talampas, Eriberto D Primary Care Unavailable Talampas, Eriberto D Primary Care Unavailable Ayush, Nahum Attending Unavailable Ayush, [place] Referring Unavailable Talampas, Eriberto D Primary Care Unavailable Jose L Barrios Attending Unavailable PabloJose L Referring Unavailable Talampas, Eriberto D Attending Unavailable Talampas, Eriberto D Referring Unavailable Talampas, Eriberto D Primary Care Unavailable Sanjay Moe Attending Unavailable Melchor Vilchis Admitting Unavailable Jose L Barrios Consulting Unavailable Talampas, Eriberto D Primary Care Unavailable Melchor Vilchis Consulting Unavailable Jose L Barrios Referring Unavailable Ayush, [place] Attending Unavailable Talampas, Eriberto D Primary Care Unavailable Justine Romano Attending Unavailable Talampas, Eriberto D Primary Care Unavailable Ayush, Nahum Attending Unavailable Talampas, Eriberto D Primary Care Unavailable Bryant Moserapryuridiae Attending Unavailabl e Nagajomariana, Nagapradee Referring Unavailabl e Talampas, Eriberto D Primary Care Unavailable Ayush, [place] Referring Unavailable Ayush, Nahum Consulting Unavailable Ayush, Nahum Attending Unavailable Talampas, Eriberto D Primary Care Unavailable Sanjay Moe Attending Unavailable Melchor Vilchis Admitting Unavailable Jose L Barrios Consulting Unavailable Talampas, Eriberto D Primary Care Unavailable Melchor Vilchis Consulting Unavailable Sanjay Moe Consulting Unavailable Melchor Vilchis Attending Unavailable Justine Romano Attending Unavailable Talampas, Eriberto D Primary Care Unavailable Justine Romano Attending Unavailable Talampas, Eriberto D Primary Care Unavailable Justine Romano Attending Unavailable Talampas, Eriberto D Primary Care Unavailable Justine Romano Attending Unavailable Talampas, Eriberto D Primary Care Unavailable SkJustine cristobal Attending Unavailable Talampas, Eriberto D Primary Care Unavailable SkJustine cristobal Attending Unavailable Talampas, Eriberto D Primary Care Unavailable PABLO AGUILAR, DR JOSE L Bermudez Admitting Unavailab shannon BARRIOS MD, DR JOSE L Bermudez Attending Unavailab shannon TOVAR MD, DR WEI Primary Care Unavailable LA AGUILAR, DR WEI Consulting Unavailable KENNEDY AGUILAR, MYNOR Consulting Unavailable [facility] KELSEY Consulting Nicole BARRIOS MD, DR JOSE L Bermudez Attending Unavailab shannon TOVAR MD, DR WEI Primary Care Unavailable Allergies Allergy Classification Reported Allergen(s) Allergy Type Date of Onset Reaction(s) Facility Sulfonamides (antibiotic) (1 source) Sulfonamides (Antibiotic) Drug Allergy 12-05-2004 [facility] Work Phone: (20 sources) Sulfonamides (Antibiotic); Translations: [SULFA (SULFONAMIDE ANTIBIOTICS)] Drug Allergy 12-05-2004 [facility] Work Phone: (2 sources) Sulfonamide; Translations: [sulfa drugs] Drug allergy itching [facility] (1 source) Sulfonamides (Antibiotic) Drug allergy (disorder) 08-24-2024 [facility] Medications Current Medications Medication Drug Class(es) Dates Sig (Normalized) Sig (Original) acetaminophen 1000 mg oral tablet (1 source) Start: 11-09-2024 take 1 tablet by mouth once daily Tylenol Dose : 1,000 mg = 2 tab(s), Oral, TID, not to exceed 3000 mg/day, 0 Refill(s) Start Date: 11/09/24 Status: Ordered Medication Dispense Status: Completed Total Allowed Fills: 1 Fills Dispensed: 0 amoxicillin 875 mg / clavulanate 125 mg oral tablet (3 sources) Penicillin-class Antibacterial Start: 04-12-2022 End: 04-17-2022 take 1 tablet by mouth twice daily amoxicillin-clav ulanic acid (AUGMENTIN) 875-125 mg per tablet Take 1 tablet by mouth twice daily for 5 days. 10 tablet 0 04/12/2022 04/17/2022 Active Start: 06-26-2021 End: 07-01-2021 take 1 tablet by mouth twice daily amoxicillin-clavulanic acid (AUGMENTIN) 875-125 mg per tablet Indications: Acute non-recurrent sinusitis, unspecified location Take 1 tablet by mouth twice daily for 5 days. 10 tablet 0 06/26/2021 07/01/2021 Active Comment on above: Take 1 tablet by mouth twice daily for 5 days. aspirin 81 mg oral tablet (20 sources) Platelet Aggregation Inhibitor, Nonsteroidal Anti-inflammatory Drug Start: 5 End: 09-06-202 5 take 1 tablet by mouth once daily aspirin Dose : 81 mg = 1 tab(s), Oral, BIDM, Take 81 mg aspirin twice daily with food for 4 weeks postoperatively for DVT prophylaxis. After 4 weeks you can then go back to your normal 81 mg aspirin daily., 0 Refill(s) Start Date: 11/09/24 Stop Date: 12/09/24 Status: Ordered Medication Dispense Status: Completed Total Allowed Fills: 1 Fills Dispensed: 0 Start: 10-11-2024 aspirin 81 mg oral delayed release tablet Dose : 81 mg = 1 tab(s), Oral, Daily, 0 Refill(s) Start Date: 10/11/24 Status: Ordered Repeat number: 1 take 1 capsule by mo [facility] once daily aspirin 81 mg cap Take 81 mg by mouth once daily. Active calcium carbonate 600 mg chewable tablet (2 sources) Start: 10-11-2024 calcium carbon ate 600 mg oral tablet, chewable Dose : 600 mg = 1 tab(s), Chewed, qHS, 0 Refill(s) Start Date: 10/11/24 Status: Ordered Medication Dispense Status: Completed Total Allowed Fills: 1 Fills Dispensed: 0 calcium carbonate 1500 mg / cholecalciferol 200 unt oral tablet (20 sources) Vitamin D Start: 06-16-2006 CALCIUM 600 + D(3) 600 MG-200 UNIT TAB Take one(1) tablet twice daily. 0 06/16/2006 Active Start: 06-16-2006 calcium carbon ate-vitamin D3 600 mg-5 mcg (200 unit) per tablet Take by mouth . 0 06/16/2006 Active Comment on above: Take one(1) tablet t wice daily. cephalexin 500 mg oral capsule (3 sources) Cephalosporin Antibacterial Start: 12-11-19 End: 12-21-19 23 take 1 capsule by mouth twice daily cephALEXin (KEFLEX) 500 mg capsule Indications: Urgency of urination Take 1 capsule by mouth twice daily for 10 days. 20 capsule 0 12/10/2022 12/20/2022 Active Comment on above: Take 1 capsule by [facility] twice daily for 10 days. cholecalciferol 0.025 mg chewable tablet (20 sources) Vitamin D Start: 12-19-19 10 cholecalciferol( TAMIN D-3 1,000 UNIT CHEWABLE TAB) Take 2 tablets daily. 0 12/18/2009 Active Start: 12-18-2009 cholecalcifero l, vitamin D3, 25 mcg (1,000 unit) Chew Chew and Swallow 2 (two) tablets (2,000 Units total) daily . 0 12/18/2009 Active Comment on above: Take 2 tablets daily . Chondroitin Sulfates / Glucosamine (20 sources) Start: 10-11-2024 take 1 capsule by mouth twice daily Chondroitin-Gluco samine 400 mg-500 mg oral tablet 1 cap, Oral, BID, 0 Refill(s) Start Date: 10/11/24 Status: Ordered Repeat number: 1 Start: 12-18-2009 glucosam sul n a/chondr galvan a na(GLUCOSAMINE-CHONDROITIN 3X 750 MG-600 MG TAB) Take 1 tablet twice daily. 0 12/18/2009 Active Comment on above: Take 1 tablet twice daily. ciprofloxacin 500 mg oral tablet (1 source) Quinolone Antimicrobial Start: 08-04-19 End: 08-11-19 take 1 tablet by mouth twice daily ciprofloxacin HCl (CIPRO) 500 mg tablet Indications: Urinary frequency Take 1 tablet by mouth twice daily for 7 days. 14 tablet 0 08/03/2022 08/10/2022 Active Comment on above: Take 1 tablet by [facility] twice daily for 7 days. Clobetasol (20 sources) Corticosteroid Start: 10-12-19 clobetasol 0.05% topical cream See Instructions, mon, wed, wednesday, 0 Refill(s), Cream Start Date: 10/11/24 Status: Ordered Medication Dispense Status: Completed Total Allowed Fills: 1 Fills Dispensed: 0 Start: 10-11-2024 clobetasol 0.0 5% topical cream See Instructions, mon, wed, wednesday, 0 Refill(s), Cream Start Date: 10/11/24 Status: Ordered Repeat number: 1 Start: 06-22-2024 End: 06-22-2025 clobetasol (TEMOVATE) 0.05 % ointment Indications: Lichen sclerosus et atrophicus Apply 1 application to affected area two times a week. 60 g 3 06/22/2024 06/22/2025 Active Start: 12-22-2022 End: 06-22-2024 clobetasol (TEMOVATE) 0.05 % ointment Indications: Lichen sclerosus et atrophicus Apply 1 application to affected area two times a day. 60 g 3 02/28/2024 06/22/2024 Discontinued Start: 05-09-2018 End: 10-30-2021 clobetasol (TEMOVATE) 0.05 % ointment Indications: Lichen sclerosus et atrophicus Apply 1 application to affected area twice daily. TO AFFECTED AREA as directed. 60 g 3 10/30/2021 Active Comment on above: Apply 1 application to affected area twice daily. TO AFFECTED AREA as directed. CPAP (20 sources) Start: 05-22-2021 CPAP Initiate CPAP @ 9 cm of water with humidification. Mask (per patient preference) optional chin strap (if indicated) , filters, tubing, humidifier and lifetime supplies. 1 Each 05/22/2021 Active Start: 05-22-2021 CPAP Initiate CPAP @ 9 cm of water with humidification. Mask (per patient preference) optional chin strap (if indicated) , filters, tubing, humidifier and lifetime supplies. 1 Each 0 05/22/2021 Active Start: 02-10-2018 End: 09-03-2023 CPAP Indications: SHANNON on CPA P CPAP @ 9 cm of water with humidification. Mask (per patient preference) optional chin strap (if indicated) , filters, tubing, humidifier and lifetime supplies. Dx. SHANNON G47.33 1 Device 0 02/10/2018 09/03/2023 Discontinued Start: 02-10-2018 CPAP Indicatio ns: SHANNON on CPAP CPAP @ 9 cm of water with humidification. Mask (per patient preference) optional chin strap (if indicated) , filters, tubing, humidifier and lifetime supplies. Dx. SHANNON G47.33 1 Device 0 02/10/2018 Active Start: 08-23-2013 CPAP CHIN STRA P, USED WITH CPAP DEVICE 1 Each 0 08/23/2013 Active Comment on above: CHIN STRAP, USED WIT H CPAP DEVICE CPAP @ 9 cm of water with humidification. Mask (per patient preference) optional chin strap (if indicated) , filters, tubing, humidifier and lifetime supplies. Dx. SHANNON G47.33 Initiate CPAP @ 9 cm of water with humidification. Mask (per patient preference) optional chin strap (if indicated) , filters, tubing, humidifier and lifetime supplies. diclofenac sodium 75 mg delayed release oral tablet (20 sources) Nonsteroidal Anti-inflammatory Drug Start: 10-11-2024 diclofenac sodium 75 mg oral delayed release tablet Dose : 75 mg = 1 tab(s), Oral, BID, # 60 tab(s), 0 Refill(s) Start Date: 10/11/24 Status: Ordered Medication Dispense Status: Completed Quantity: 60.0 Unit: tab(s) Total Allowed Fills: 1 Fills Dispensed: 0 Start: 08-14-2021 End: 07-18-2024 take 1 tablet by mouth twice daily for pain diclofenac, EC, (VOLTAREN) 75 mg EC tablet Take 1 tablet by mouth two times a day. For pain/inflammation. Take with food. 180 tablet 3 07/18/2024 Active Start: 07-11-2020 End: 08-12-2021 take 1 tablet by mouth twice daily for pain diclofenac, EC, (VOLTAREN) 75 mg EC tablet Take 1 tablet by mouth twice daily. For pain/inflammation. Take with food. 180 tablet 3 07/11/2020 08/12/2021 Discontinued Start: 07-19-2019 End: 07-13-2023 apply 32 g topically every twenty-four hours diclofenac sodium (VOLTAREN) 1 % topical gel Indications: Pain in joint, multiple sites Apply 2-4 g to affected area four times daily as needed. As directed. Max 32 grams per 24 hour period. 100 g 3 07/19/2019 07/13/2023 Discontinued Comment on above: Apply 2-4 g to affec wang area four times daily as needed. As directed. Max 32 grams per 24 hour period. Take 1 tablet by christ twice daily. For pain/inflammation. Take with food. Take 1 tablet by christ two times a day. For pain/inflammation. Take with food. docusate sodium 50 mg / sennosides, retirement 8.6 mg oral tablet (1 source) Start: 5 End: take 1 tablet by mouth twice daily Senokot S 50 mg-8.6 mg oral tablet Dose = 2 tab(s), Oral, BID, Take until first bowel movement, then as needed, X 3 day(s), # 12 tab(s), 0 Refill(s), Pharmacy: [id number], 170.2, cm, 11/07/24 12:33:00 EDT, Height, kg, 11/07/24 12:33:00 EDT, Dosing Weight Start Date: 11/09/24 Stop Date: 11/12/24 Status: Ordered Medication Dispense Status: Completed Quantity: 12.0 Unit: tab(s) Total Allowed Fills: 1 Fills Dispensed: 0 ferrous gluconate 324 mg oral tablet (2 sources) Start: 5 ferrous gluconate 324 mg (38 mg elemental iron) oral tablet Dose : 324 mg = 1 tab(s), Oral, Daily, # 100 tab(s), 0 Refill(s) Start Date: 10/11/24 Status: Ordered Medication Dispense Status: Completed Quantity: 100.0 Unit: tab(s) Total Allowed Fills: 1 Fills Dispensed: 0 fluticasone propionate 0.05 mg/actuat metered dose nasal spray (20 sources) Corticosteroid Start: 5 take 50 ug nasal route once daily in the morning Flonase 50 mcg/inh nasal spray 50 mcg Dose = 1 spray(s), Nostril, each, qAM, 0 Refill(s) Start Date: 10/11/24 Status: Ordered Medication Dispense Status: Completed Total Allowed Fills: 1 Fills Dispensed: 0 Start: 03-18-2016 End: 09-18-2024 take 2 spray(s) nasal route once daily fluticasone (FLONASE) 50 mcg/actuation nasal spray Use 2 Sprays in each nostril once daily. 03/18/2016 09/18/2024 Discontinued Start: 03-18-2016 fluticasone pr opionate (FLONASE) 50 mcg/actuation nasal spray 2 (two) sprays by NOT APPLICABLE route daily . 0 03/18/2016 Active Comment on above: Use 2 Sprays in each nostril once daily. folic acid 0.4 mg oral tablet (2 sources) Start: 10-11-2024 folic acid 0.4 mg oral tablet Dose : 0.4 mg = 1 tab(s), Oral, qDay, # 100 tab(s), 0 Refill(s) Start Date: 10/11/24 Status: Ordered Medication Dispense Status: Completed Quantity: 100.0 Unit: tab(s) Total Allowed Fills: 1 Fills Dispensed: 0 gabapentin 400 mg oral capsule (20 sources) Anti-epileptic Agent Start: 02-12-2022 End: 01-14-2025 gabapentin 400 mg oral capsule Dose : 400 mg = 1 cap(s), Oral, QID, # 120 cap(s), 0 Refill(s) Start Date: 10/11/24 Status: Ordered Medication Dispense Status: Completed Quantity: 120.0 Unit: cap(s) Total Allowed Fills: 1 Fills Dispensed: 0 Start: 03-13-2021 End: 09-09-2021 take 1 capsule by mouth four times daily gabapentin (NEURONTIN) 400 mg capsule Indications: Fibromyalgia Take 1 capsule by mouth four times daily for 180 days. 360 capsule 3 03/13/2021 Active Comment on above: Take 1 capsule by mo ut four times daily for 180 days. Take 1 capsule by mo ut four times daily for 90 days. Take 1 capsule by mo ut four times daily for 180 days. as directed ipratropium bromide 0.021 mg/actuat metered dose nasal spray (7 sources) Anticholinergic Start: 5 End: Ipratropium [place] (ATROVENT) 21 mcg (0.03 %) nasal spray Indications: Acute upper respiratory infection, unspecified Use 2 sprays in the nose every 12 hours. as needed for nasal congestion 30 mL 2 07/20/2024 Active L.acid/L.casei/B.bif /B.jose/FOS (PROBIOTIC BLEND ORAL) (20 sources) take 175 mg by mouth once daily L.acid/L.casei/B.bi f/B.jose/FOS (PROBIOTIC BLEND ORAL) Take 175 mg by mouth once daily. Active lisinopril 10 mg oral tablet (20 sources) Angiotensin Converting Enzyme Inhibitor Start: 5 lisinopril 10 mg oral tablet Dose : 10 mg = 1 tab(s), Oral, Daily, 0 Refill(s) Start Date: 10/11/24 Status: Ordered Medication Dispense Status: Completed Total Allowed Fills: 1 Fills Dispensed: 0 Start: 12-18-2022 End: 07-10-2024 take 1 tablet by mouth once daily lisinopril (PRINIVIL) 10 mg tablet Indications: Primary hypertension Take 1 tablet by mouth once daily. 90 tablet 3 07/10/2024 Active Start: 02-03-2021 End: 02-11-2022 take 1 tablet by mouth once daily lisinopril (PRINIVIL) 10 mg tablet Indications: Elevated blood pressure reading without diagnosis of hypertension Take 1 tablet by mouth once daily. 90 tablet 3 02/12/2022 Active Comment on above: Take 1 tablet by christ once daily. magnesium citrate 100 mg oral tablet (2 sources) Start: 10-11-2024 magnesium citrate 100 mg oral capsule Dose : 100 mg = 1 cap(s), Oral, qDay, # 120 cap(s), 0 Refill(s) Start Date: 10/11/24 Status: Ordered Medication Dispense Status: Completed Quantity: 120.0 Unit: cap(s) Total Allowed Fills: 1 Fills Dispensed: 0 magnesium oxide 500 mg oral tablet (20 sources) Start: 12-18-2009 MAGNESIUM OXIDE 500 MG TAB Take 250 mg by mouth once daily. 0 12/18/2009 Active Start: 12-18-2009 MAGNESIUM OXID E 500 MG TAB Take 1 tablet twice daily. 0 12/18/2009 Active Comment on above: Take 1 tablet twice daily. melatonin 10 mg oral capsule (20 sources) Start: 10-11-2024 melatonin 10 mg oral capsule Dose : 10 mg = 1 cap(s), Oral, qHS, PRN for insomnia, # 90 cap(s), 0 Refill(s) Start Date: 10/11/24 Status: Ordered Medication Dispense Status: Completed Quantity: 90.0 Unit: cap(s) Total Allowed Fills: 1 Fills Dispensed: 0 Start: 12-18-2009 take 10 mg by mouth once daily MELATONIN 3 MG TAB Take 10 mg by mouth. nightly 0 12/18/2009 Active Comment on above: Take 10 mg by mouth. nightly methylsulfonylmethane 1000 mg oral tablet (20 sources) Start: 2009 methylsulfonylmethan e(MSM 1,000 MG TAB) 1 tablet twice daily. 0 12/18/2009 Active Comment on above: 1 tablet twice daily . multivitamin (THERAGRAN) per tablet (1 source) Start: 2006 take 1 tablet by mouth once multivitamin (THERAGRAN) per tablet Take 1 (one) tablet by mouth . 0 06/16/2006 Active MULTIVITAMIN TAB (20 sources) Start: 2006 MULTIVITAMIN TAB Take one(1) tablet daily. 0 06/16/2006 Active Comment on above: Take one(1) tablet d aily. nirmatrelvir tablet 150 mg and ritonavir tablet 100 mg in a dose pack (PAXLOVID) (1 source) Start: 2021 End: 2021 nirmatrelvir tablet 150 mg and ritonavir tablet 100 mg in a dose pack (PAXLOVID) Administer TWO pink nirmatrelvir 150 mg tablets and ONE white ritonavir 100 mg tablet for a total of three tablets twice daily. 30 tablet 0 08/27/2021 09/01/2021 Active Comment on above: Administer TWO pink nirmatrelvir 150 mg tablets and ONE white ritonavir 100 mg tablet for a total of three tablets twice daily. nitrofurantoin, macrocrystals 25 mg / nitrofurantoin, monohydrate 75 mg oral capsule (1 source) Nitrofuran Antibacterial Start: 2022 End: 2022 take 1 capsule by mouth twice daily nitrofurantoin monohydrate and macrocrystal (MACROBID) 100 mg capsule Indications: Urinary frequency Take 1 capsule by mouth twice daily for 5 days. 10 capsule 0 07/23/2022 07/28/2022 Active Comment on above: Take 1 capsule by [facility] twice daily for 5 days. oxyCODONE hydrochloride 5 mg oral tablet (4 sources) Opioid Agonist Start: 2024 End: 2024 take 1-2 tablets by mouth every four hours as needed for pain oxyCODONE 5 mg oral tablet ( IMMEDIATE release ) See Instructions, PRN as needed for pain, 1-2 tab(s) Oral q4h, # 48 tab(s), 0 Refill(s), 11/16/24 12:33:00 PM EDT, Pharmacy: [id number], Status post total right knee replacement, 170.2, cm, 11/07/24 12:33:00 EDT, Height, 79, kg, 11/07/24 12:33:00 EDT, Dosing Weight Start Date: 11/09/24 Stop Date: 11/16/24 Status: Ordered Medication Dispense Status: Completed Quantity: 48.0 Unit: tab(s) Total Allowed Fills: 1 Fills Dispensed: 0 Indications: Presence of right artificial knee joint; Start: 01-20-2024 End: 02-03-2024 take 1 tablet by mouth every six hours as needed for pain oxyCODONE IR (ROXICODONE) 5 mg immediate release tablet Indications: Chronic bilateral low back pain without sciatica , Fibromyalgia , Chronic pain of both knees Take 1 tablet by mouth every 6 hours as needed for pain for up to 14 days. 56 tablet 01/20/2024 02/03/2024 Active Start: 11-24-2023 End: 12-01-2023 take 1 tablet by mouth every eight hours as needed for pain oxyCODONE IR (ROXICODONE) 5 mg immediate release tablet Indications: Chronic bilateral low back pain without sciatica , Fibromyalgia , Chronic pain of both knees Take 1 tablet by mouth every 8 hours as needed for pain for up to 7 days. 21 tablet 11/24/2023 12/01/2023 Active polyethylene glycol 3350 002132 mg / potassium chloride 2970 mg / sodium bicarbonate 6740 mg / sodium chloride 5860 mg / sodium sulfate 78509 mg powder for oral solution (1 source) Osmotic Laxative Start: 12-15-2023 End: 12-15-2023 peg 3350-Electrolytes (GOLYTELY) 236-22.74-6.74 -5.86 gram suspension Indications: Screen for colon cancer Take 4,000 mL by mouth one time only for 1 dose. Refer to printed prep instructions from your provider. 4000 mL 12/15/2023 12/15/2023 Active rosuvastatin calcium 5 mg oral tablet (20 sources) HMG-CoA Reductase Inhibitor Start: 10-11-2024 rosuvastatin 5 mg or al tablet Dose : 5 mg = 1 tab(s), Oral, Daily, 0 Refill(s) Start Date: 10/11/24 Status: Ordered Medication Dispense Status: Completed Total Allowed Fills: 1 Fills Dispensed: 0 Start: 08-11-2023 End: 07-10-2024 take 1 tablet by mouth once daily at bedtime rosuvastatin (CRESTOR) 5 mg tablet Take 1 tablet by mouth daily at bedtime. 90 tablet 3 07/10/2024 Active tiZANidine 4 mg oral capsule (20 sources) Central alpha-2 Adrenergic Agonist Start: 10-11-2024 tiZANidine 4 mg oral capsule Dose : 4 mg = 1 cap(s), Oral, qHS, PRN for muscle spasm, # 30 cap(s), 0 Refill(s) Start Date: 10/11/24 Status: Ordered Medication Dispense Status: Completed Quantity: 30.0 Unit: cap(s) Total Allowed Fills: 1 Fills Dispensed: 0 Start: 07-28-2021 End: 06-19-2024 take 1 tablet by mouth once daily at bedtime as needed tiZANidine (ZANAFLEX) 4 mg tablet Indications: Fibromyalgia TAKE 1 TABLET BY MOUTH AT BEDTIME, MAY TAKE DOSE DURING THE DAY NEEDED 180 tablet 3 01/07/2024 06/19/2024 Discontinued Start: 02-05-2020 End: 07-26-2021 take 1 tablet by mouth once daily at bedtime as needed tiZANidine (ZANAFLEX) 4 mg tablet Indications: Fibromyalgia TAKE 1 TABLET BY MOUTH AT BEDTIME, MAY TAKE DOSE DURING THE DAY NEEDED 180 tablet 3 02/05/2020 07/26/2021 Discontinued Comment on above: TAKE 1 TABLET BY [facility] TH AT BEDTIME, MAY TAKE DOSE DURING THE DAY NEEDED traMADol hydrochloride 50 mg oral tablet (20 sources) Opioid Agonist Start: 10-11-2024 traMADol 50 mg oral tablet Dose : 50 mg = 1 tab(s), Oral, q12h, PRN for pain, 0 Refill(s) Start Date: 10/11/24 Status: Ordered Repeat number: 1 Start: 05-20-2023 take 1 tablet by christ th twice daily as needed for pain traMADol (ULTRAM) 50 mg tablet TAKE 1 TABLET BY MOUTH up to TWICE DAILY NEEDED FOR PAIN 0 05/20/2023 Active Start: 01-01-2021 End: 05-08-2022 traMADol (ULTRAM) 50 mg tabl et twice daily. 0 01/01/2021 05/08/2022 Discontinued Start: 01-01-2021 take 1 tablet by christ th once daily as needed for pain traMADol (ULTRAM) 50 mg tablet TAKE 1 TABLET BY MOUTH DAILY NEEDED FOR PAIN 0 01/01/2021 Active Comment on above: TAKE 1 TABLET BY [facility]RIST TH DAILY NEEDED FOR PAIN twice daily. traZODone hydrochloride 50 mg oral tablet (20 sources) Serotonin Reuptake Inhibitor Start: 11-07-2024 traZODone 50 mg oral tablet Dose : 50 mg = 1 tab(s), qHS, 0 Refill(s) Start Date: 11/07/24 Status: Ordered Medication Dispense Status: Completed Total Allowed Fills: 1 Fills Dispensed: 0 Start: 07-09-2023 End: 07-18-2024 take 0.5-1 tablets by mouth once daily at bedtime traZODone (DESYREL) 50 mg tablet Take 0.5-1 tablets by mouth daily at bedtime. 90 tablet 3 07/18/2024 Active Comment on above: Take 0.5-1 tablets b y mouth daily at bedtime. turmeric extract 500 mg oral capsule (20 sources) Start: 10-11-2024 turmeric 500 mg oral capsule Dose : 500 mg = 1 cap(s), Oral, Daily, 0 Refill(s) Start Date: 10/11/24 Status: Ordered Repeat number: 1 take 5 mg by mouth once daily TU RMERIC ORAL Take 500 mg by mouth once daily. Turmeric 500mg and black pepper 5mg Active ubiquinol (20 sources) take 1 tablet by mouth once daily COQ10, UBIQUINOL, ORAL Take 1 tablet by mouth once daily. Active 24 hr venlafaxine 150 mg extended release oral capsule (20 sources) Serotonin and Norepinephrine Reuptake Inhibitor Start: venlafaxine 150 mg oral capsule, extended release Dose : 150 mg = 1 cap(s), Oral, BIDM, 0 Refill(s) Start Date: 10/11/24 Status: Ordered Medication Dispense Status: Completed Total Allowed Fills: 1 Fills Dispensed: 0 Start: 05-03-2023 End: 07-18-2024 take 1 capsule by mouth twice daily venlafaxine ER (EFFEXOR XR) 150 mg 24 hr capsule Take 1 capsule by mouth two times a day. 180 capsule 3 07/18/2024 Active Start: 02-03-2021 End: 05-08-2022 take 1 capsule by mouth twice daily venlafaxine ER (EFFEXOR XR) 150 mg 24 hr capsule Take 1 capsule by mouth twice daily. 180 capsule 3 05/08/2022 Active Comment on above: Take 1 capsule by mo uth twice daily. Take 1 capsule by [facility] two times a day. Vitamin D3 50 mcg (2000 intl units) oral capsule (2 sources) Start: 10-11-2024 Vitamin D3 50 mcg (2000 intl units) oral capsule Dose : 50 mcg = 1 cap(s), Oral, qDay, # 60 cap(s), 0 Refill(s) Start Date: 10/11/24 Status: Ordered Medication Dispense Status: Completed Quantity: 60.0 Unit: cap(s) Total Allowed Fills: 1 Fills Dispensed: 0 Start: 10-11-2024 Vitamin D3 50 mcg (2000 intl units) oral capsule Dose : 50 mcg = 1 cap(s), Oral, qDay, # 60 cap(s), 0 Refill(s) Start Date: 10/11/24 Status: Ordered Quantity: 60.0 Unit: cap(s) Repeat number: 1 vitamin e 180 mg oral capsule (20 sources) Start: 10-11-2024 vitamin E 400 intl units oral capsule Dose : 400 International_Unit = 1 cap(s), Oral, Daily, 0 Refill(s) Start Date: 10/11/24 Status: Ordered Medication Dispense Status: Completed Total Allowed Fills: 1 Fills Dispensed: 0 Start: 06-01-2008 VITAMIN E 400 UNIT CAP Take one(1) tablet daily. 0 06/01/2008 Active Start: 06-01-2008 VITAMIN E 400 UNIT CAP Take one(1) tablet daily. 0 06/01/2008 Active Comment on above: Take one(1) tablet d aily. zinc gluconate 100 mg oral tablet (20 sources) take 2 tablets by mouth once daily Zinc Gluconate 100 mg tab Take 2 tablets by mouth once daily. Active Completed/Discontinued Medications Medication Drug Class(es) Dates Sig (Normalized) Sig (Original) acetaminophen 325 mg / HYDROcodone bitartrate 5 mg oral tablet (2 sources) Opioid Agonist Start: 08-24-2024 End: 09-18-2024 HYDROcodone-acetam inophen (NORCO) 5-325 mg per tablet 08/24/2024 09/18/2024 Discontinued [id number] 200 actuat albuterol 0.09 mg/actuat metered dose inhaler (4 sources) beta2-Adrenergic Agonist Start: 08-27-2021 End: 10-30-2021 take 2 puff(s) by inhalation every four hours as needed for wheezing albuterol HFA (VENTOLIN HFA) 90 mcg/actuation inhaler Inhale 2 Puffs as instructed every 4 hours as needed for wheezing/shortness of breath. 1 Inhaler 1 08/27/2021 10/30/2021 Discontinued Comment on above: Inhale 2 Puffs as in structed every 4 hours as needed for wheezing/shortness of breath. amoxicillin 500 mg oral capsule (3 sources) Penicillin-class Antibacterial Start: 06-12-2024 End: 06-22-2024 take 1 capsule by mouth three times daily amoxicillin (AMOXIL) 500 mg capsule Take 1 capsule by mouth three times a day for 10 days. 06/12/2024 06/22/2024 Discontinued Start: 06-12-2024 End: 06-19-2024 take 1 capsule by mouth twice daily amoxicillin (AMOXIL) 500 mg capsule Take 500 mg by mouth two times a day. 06/12/2024 06/19/2024 Discontinued calcium chloride 0.0014 meq/ml / potassium chloride 0.004 meq/ml / sodium chloride 0.103 meq/ml / sodium lactate 0.028 meq/ml injectable solution (1 source) Start: 01-27-2024 End: 01-27-2024 take 30 mL intravenously every hour 30 mL/hr, INTRAVENOUS, CONTINUOUS, Starting on Kanwal 01/27/24 at 1130, Until Kanwal 01/27/24 at 1226, Preprocedure diphenhydrAMINE (1 source) Histamine-1 Receptor Antagonist Start: 01-27-2024 End: 01-27-2024 12.5-50 mg, INTRAVENOUS, DIRECTED, Starting on Kanwal 1024 at 1200, Until Kanwal 1024 at 1559, DOSING DIRECTED BY PHYSICIAN FOR PROCEDURAL SEDATION ONLY, Intraprocedure 1 ml fentaNYL 0.05 mg/ml injection (1 source) Opioid Agonist Start: 01-27-2024 End: 01-27-2024 25-100 mcg, INTRAVENOUS, DIRECTED, Starting on Kanwal 1024 at 1200, Until Kanwal 1024 at 1559, DOSING DIRECTED BY PHYSICIAN FOR PROCEDURAL SEDATION ONLY, Intraprocedure ferrous sulfate 325 mg oral tablet (20 sources) Start: 09-03-2023 End: 02-28-2024 ferrous sulfate (IRON) 325 mg (65 mg iron) tablet 4 days weekly 09/03/2023 02/28/2024 Discontinued (Discontinued by Patient) Start: 07-29-2011 End: 09-03-2023 take 1 tablet by mouth twice daily Ferrous Sulfate (IRON) 325 mg (65 mg iron) ORAL tablet Take 1 tablet by mouth twice daily. 0 07/29/2011 09/03/2023 Discontinued take 365 mg by mouth once daily FERROUS SULFATE ORAL Take 365 mg by mouth once daily. Active Comment on above: Take 1 tablet by [facility] twice daily. lidocaine hydrochloride 20 mg/ml mucous membrane topical solution (10 sources) Antiarrhythmic, Amide Local Anesthetic Start: 04-21-2022 End: 05-08-2022 LIDOCAINE VISCOUS 2 % solution Indications: Sore throat Take 15 mL by mouth every 3 hours as needed for pain. 120 mL 1 04/21/2022 05/08/2022 Discontinued Start: 02-03-2021 End: 10-30-2021 apply 1 dose transdermal route once daily as needed, then apply 1 dose transdermal route every twelve hours as needed lidocaine (LIDODERM) 5 % Apply 1 patch as directed once daily as needed, remove patch after 12 hours 90 Patch 3 02/03/2021 10/30/2021 Discontinued Comment on above: Apply 1 patch as dir ected once daily as needed, remove patch after 12 hours Take 15 mL by mouth every 3 hours as needed for pain. 1 ml meperidine hydrochloride 50 mg/ml injection (1 source) Opioid Agonist Start: End: 12.5-100 mg, INTRAVENOUS, DIRECTED, Starting on Kanwal 01/27/24 at 1230, Until Kanwal 01/27/24 at 1629, DOSING DIRECTED BY PHYSICIAN FOR PROCEDURAL SEDATION ONLY, Intraprocedure 5 ml midazolam 1 mg/ml injection (1 source) Benzodiazepine Start: End: 1-5 mg, INTRAVENOUS, DIRECTED, Starting on Kanwal 01/27/24 at 1200, Until Kanwal 01/27/24 at 1559, DOSING DIRECTED BY PHYSICIAN FOR PROCEDURAL SEDATION ONLY, Intraprocedure 2 ml ondansetron 2 mg/ml injection (1 source) Serotonin-3 Receptor Antagonist Start: 024 End: 024 4 mg, INTRAVENOUS, DIRECTED, Starting on Kanwal 01/27/24 at 1230, Until Kanwal 01/27/24 at 1629, Dosing as directed for intraprocedural use only, Intraprocedure phenazopyridine hydrochloride 200 mg oral tablet (8 sources) Start: 020 End: 022 take 1 tablet by mouth every eight hours as needed phenazopyridine (PYRIDIUM) 200 mg tablet Take 1 tablet by mouth three times daily as needed. 20 tablet 0 11/27/2019 10/30/2021 Discontinued Comment on above: Take 1 tablet by [facility] three times daily as needed. predniSONE 10 mg oral tablet (10 sources) Start: 025 End: predniSONE (DELTASONE) 10 mg tablet Indications: Flu-like symptoms , Acute upper respiratory infection, unspecified Take 4 tabs daily for 3 days, then 2 tabs daily for 3 days, then 1 tab daily for 3 days with food. 21 tablet 07/10/2024 08/31/2024 Discontinued Start: 09-03-2021 End: 10-30-2021 predniSONE (DELTASONE) 10 mg tablet Take 4 tabs daily for 3 days, then 2 tabs daily for 3 days, then 1 tab daily for 3 days with food. 21 tablet 0 09/03/2021 10/30/2021 Discontinued Comment on above: Take 4 tabs daily fo r 3 days, then 2 tabs daily for 3 days, then 1 tab daily for 3 days with food. terconazole 4 mg/ml vaginal cream (20 sources) Azole Antifungal Start: 02-10-2018 End: 07-13-2023 terconazole (TERAZOL 7) 0.4 % vaginal cream Indications: Yeast vaginitis USE 1 APPLICATOR VAGINALLY DAILY AT BEDTIME FOR 7 DAYS. REPEAT DIRECTED FOR RECURRENCE 135 g 1 04/24/2022 07/13/2023 Discontinued Comment on above: USE 1 APPLICATOR VAG INALLY DAILY AT BEDTIME FOR 7 DAYS. REPEAT DIRECTED FOR RECURRENCE Vitamin B Complex (20 sources) Start: 12-18-2009 End: 09-18-2024 vitamin b complex(B COMPLEX TAB) Take by mouth. 0 12/18/2009 09/18/2024 Discontinued Start: 12-18-2009 vitamin b comp lynn(B COMPLEX TAB) Take by mouth. 0 12/18/2009 Active Start: 12-18-2009 vitamin b comp lynn(B COMPLEX TAB) Take one(1) tablet daily. 0 12/18/2009 Active Comment on above: Take one(1) tablet d aily. Problems Active Problems Problem Classification Problem Date Documented Da te Episodic/Chronic Anxiety disorders (20 sources) Generalized anxiety disorder; Translations: [Generalized anxiety disorder] Onset: 02-21-2018 02-21-2018 Chronic Deficiency and other anemia (20 sources) Anemia; Translations: [Anemia, unspecified] Onset: 06-01-2008 06-04-2008 Episodic Deficiency and other anemia (2 sources) Microcytic anemia; Translations: [Iron deficiency anemia, unspecified] 01-20-2024 Episodic Deficiency and other anemia (2 sources) Iron deficiency anemia; Translations: [Iron deficiency anemia, unspecified] 07-04-2024 Episodic Deficiency and other anemia (2 sources) Anemia, unspecified; Translations: [Anemia, unspecified type] Onset: 06-04-2008 Episodic Diseases of white blood cells (3 sources) Leukocytosis; Translations: [Elevated white blood cell count, unspecified] Onset: 07-03-2024 07-02-2024 Chronic Disorders of lipid metabolism (20 sources) Mixed hyperlipidemia; Translations: [Mixed hyperlipidemia] Onset: 06-01-2008 Resolved: 12-22-2012 Chronic Disorders of teeth and jaw (1 source) Infection of tooth; Translations: [Periapical abscess without sinus] 06-19-2024 Episodic Essential hypertension (7 sources) Essential hypertension; Translations: [Essential (primary) hypertension] Onset: 10-17-2024 01-07-2024 Chronic Genitourinary symptoms and ill-defined conditions (3 sources) Increased frequency of urination; Translations: [Frequency of micturition] Episodic Immunizations and screening for infectious disease (2 sources) Suspected disease caused by 2019-nCoV; Translations: [Suspected COVID-19 virus infection] Onset: 09-18-2024 Episodic Joint disorders and dislocations; trauma-related (1 source) Patellofemoral disorders, right knee; Translations: [Patellofemoral disorders, right knee] Onset: 07-03-2024 Chronic Malaise and fatigue (20 sources) Fatigue; Translations: [Chronic fatigue, unspecified] Onset: 06-01-2008 07-16-2015 Chronic Menopausal disorders (20 sources) Menopausal symptom; Translations: [Menopausal and female climacteric states] Onset: 01-12-2012 Resolved: 02-25-2016 02-25-2016 Chronic Mood disorders (20 sources) Recurrent major depression in partial remission; Translations: [Major depressive disorder, recurrent, in partial remission] Onset: 06-01-2008 Resolved: 07-13-2023 11-02-2017 Chronic Mycoses (1 source) Candidiasis of vagina; Translations: [Yeast vaginitis] Episodic Nonmalignant breast conditions (1 source) Mammographic breast tissue appearance; Translations: [Dense breast tissue on mammogram] 06-25-2022 Episodic Nutritional deficiencies (4 sources) Vitamin D deficiency; Translations: [Vitamin D deficiency, unspecified] Onset: 02-28-2024 02-28-2024 Chronic Osteoarthritis (11 sources) Primary gonarthrosis, bilateral; Translations: [Bilateral primary osteoarthritis of knee] Onset: 11-24-2023 06-17-2023 Chronic Other circulatory disease (1 source) Elevated blood-pressure reading without diagnosis of hypertension; Translations: [Elevated blood-pressure reading, without diagnosis of hypertension] Episodic Other connective tissue disease (1 source) Presence of right artificial knee joint; Translations: [Presence of right artificial knee joint] Onset: 11-07-2024 Chronic Other connective tissue disease (1 source) Artificial knee joint present; Translations: [Presence of right artificial knee joint] Onset: 11-09-2024 Chronic Other ear and sense organ disorders (1 source) Impacted cerumen in right ear; Translations: [Impacted cerumen, right ear] Episodic Other female genital disorders (20 sources) Dyspareunia; Translations: [Dyspareunia] Onset: 05-23-2012 05-23-2012 Chronic Other gastrointestinal disorders (1 source) Constipation; Translations: [Constipation, unspecified] 06-19-2024 Episodic Other gastrointestinal disorders (1 source) Abdominal wind pain; Translations: [Gas pain] 06-19-2024 Episodic Other inflammatory condition of skin (2 sources) Chafing of skin; Translations: [Erythema intertrigo] 02-28-2024 Episodic Other lower respiratory disease (2 sources) Cough; Translations: [Cough] Episodic Other nervous system disorders (4 sources) Other chronic pain; Translations: [Chronic pain of right knee] Onset: 11-24-2023 Chronic Other nervous system disorders (1 source) Difficulty in walking, not elsewhere classified; Translations: [Difficulty in walking, not elsewhere classified] Onset: 08-25-2024 Chronic Other non-traumatic joint disorders (7 sources) Pain in unspecified knee; Translations: [Pain in joint, lower leg] 11-12-2022 Episodic Other non-traumatic joint disorders (5 sources) Pain in right knee; Translations: [Pain in joint, lower leg] Onset: 06-14-2023 06-14-2023 Episodic Other non-traumatic joint disorders (6 sources) Pain in left knee; Translations: [Pain in left knee] Onset: 06-14-2023 Episodic Other non-traumatic joint disorders (1 source) Hemarthrosis of left knee; Translations: [Hemarthrosis, left knee] 08-31-2024 Episodic Other non-traumatic joint disorders (1 source) Effusion of joint of left knee; Translations: [Effusion, left knee] 08-31-2024 Episodic Other non-traumatic joint disorders (1 source) Hemarthrosis, left knee; Translations: [Hemarthrosis of left knee] Onset: 08-31-2024 Episodic Other non-traumatic joint disorders (1 source) Effusion, left knee; Translations: [Effusion of left knee] Onset: 08-31-2024 Episodic Other non-traumatic joint disorders (1 source) Hemarthrosis, unspecified joint; Translations: [Hemarthrosis, unspecified joint] Onset: 08-25-2024 Episodic Other nutritional; endocrine; and metabolic disorders (1 source) Hypermagnesemia; Translations: [Hypermagnesemia] 03-14-2024 Chronic Other nutritional; endocrine; and metabolic disorders (1 source) Hypermagnesemia; Translations: [Hypermagnesemia] Onset: 03-14-2024 Chronic Other nutritional; endocrine; and metabolic disorders (1 source) Unintentional weight loss; Translations: [Abnormal weight loss] 02-28-2024 Episodic Other nutritional; endocrine; and metabolic disorders (1 source) Overweight; Translations: [Overweight] Onset: 08-25-2024 Episodic Other screening for suspected conditions (not mental disorders or infectious disease) (20 sources) Patient encounter status; Translations: [Encounter for screening for malignant neoplasm of cervix] Onset: 07-29-2023 Episodic Other skin disorders (4 sources) Lichen sclerosus et atrophicus; Translations: [Circumscribed scleroderma] Onset: 06-22-2024 Chronic Residual codes; unclassified (20 sources) Obstructive sleep apnea syndrome; Translations: [Obstructive sleep apnea (adult) (pediatric)] 08-10-2015 Chronic Residual codes; unclassified (1 source) Obstructive sleep apnea (adult) (pediatric); Translations: [Obstructive sleep apnea] Onset: 11-24-2023 Chronic Residual codes; unclassified (2 sources) Postmenopausal state; Translations: [Asymptomatic menopausal state] Episodic Residual codes; unclassified (2 sources) Pain, unspecified; Translations: [Pain, unspecified] Onset: 06-14-2023 Episodic Residual codes; unclassified (2 sources) Family history of coronary arteriosclerosis; Translations: [Family history of ischemic heart disease and other diseases of the circulatory system] 07-09-2023 Episodic Residual codes; unclassified (1 source) Family history of ischemic heart disease and other diseases of the circulatory system; Translations: [Family history of coronary artery disease in mother] Onset: 07-29-2023 Episodic Residual codes; unclassified (2 sources) Intolerant of heat; Translations: [Other general symptoms and signs] 02-28-2024 Episodic Residual codes; unclassified (2 sources) Preoperative state 07-04-2024 Episodic Residual codes; unclassified (4 sources) Viral syndrome; Translations: [Other general symptoms and signs] 07-10-2024 Episodic Residual codes; unclassified (1 source) FH: Rheumatoid arthritis; Translations: [Family history of arthritis] 07-20-2024 Episodic Spondylosis; intervertebral disc disorders; other back problems (20 sources) Degeneration of intervertebral disc; Translations: [Degeneration of intervertebral disc, site unspecified] Onset: 06-04-2008 06-04-2008 Chronic Spondylosis; intervertebral disc disorders; other back problems (3 sources) Chronic low back pain; Translations: [Chronic bilateral low back pain without sciatica] 11-24-2023 Episodic Sprains and strains (1 source) Shoulder strain; Translations: [Strain of unspecified muscle, fascia and tendon at shoulder and upper arm level, left arm, initial encounter] 09-07-2023 Episodic Unclassified (1 source) Recheck Onset: 07-25-2024 Unclassified (1 source) Chronic bilateral low back pain without sciatica; Translations: [Chronic bilateral low back pain without sciatica] Onset: 11-24-2023 Viral infection (4 sources) Disease caused by 2019-nCoV; Translations: [COVID-19] Episodic Past or Other Problems Problem Classification Problem Date Documented Da te Episodic/Chronic Acquired foot deformities (20 sources) Bunion; Translations: [Bunion of unspecified foot] Onset: 0 12-10-2009 Episodic Allergic reactions (20 sources) Contact dermatitis; Translations: [Unspecified contact dermatitis, unspecified cause] Onset: 9 Resolved: 5 01-17-2015 Episodic Deficiency and other anemia (1 source) Iron deficiency anemia, unspecified; Translations: [Microcytic anemia] Onset: 4 Episodic Esophageal disorders (20 sources) Gastroesophageal reflux disease; Translations: [Gastro-esophageal reflux disease without esophagitis] Onset: 4 Resolved: 8 04-30-2017 Chronic Fever of unknown origin (4 sources) Fever; Translations: [Fever, unspecified] Onset: 5 07-18-2024 Episodic Gastritis and duodenitis (20 sources) Acute hemorrhagic gastritis; Translations: [Acute gastritis with bleeding] Onset: 9 Resolved: 8 04-30-2017 Episodic Malaise and fatigue (2 sources) Fatigue; Translations: [Other fatigue] Onset: 5 07-18-2024 Episodic Other aftercare (1 source) Encounter for therapeutic drug level monitoring; Translations: [Encounter for therapeutic drug monitoring] Onset: 4 Episodic Other aftercare (1 source) Other pipeline operator (current) drug therapy; Translations: [Encounter for long-term current use of medication] Onset: 4 Episodic Other and unspecified benign neoplasm (20 sources) Melanocytic nevus of trunk; Translations: [Melanocytic nevi of trunk] Onset: 9 Resolved: 6 02-25-2016 Episodic Other circulatory disease (20 sources) Spider nevus; Translations: [Nevus, non-neoplastic] Onset: 9 Resolved: 5 01-17-2015 Episodic Other connective tissue disease (20 sources) Fibromyalgia; Translations: [Fibromyalgia] Onset: 9 07-16-2015 Episodic Other connective tissue disease (1 source) Fibromyalgia; Translations: [Fibromyalgia] Onset: 6 Episodic Other gastrointestinal disorders (20 sources) Altered bowel function; Translations: [Change in bowel habit] Onset: 4 Resolved: 6 02-25-2016 Episodic Other inflammatory condition of skin (1 source) Erythema intertrigo; Translations: [Chafing] Onset: 5 Episodic Other non-traumatic joint disorders (20 sources) Multiple joint pain; Translations: [Pain in unspecified joint] Onset: 9 Resolved: 5 01-17-2015 Episodic Other nutritional; endocrine; and metabolic disorders (1 source) Abnormal weight loss; Translations: [Weight loss, unintentional] Onset: 4 Episodic Other skin disorders (20 sources) Asteatosis cutis; Translations: [Xerosis cutis] Onset: 9 Resolved: 5 01-17-2015 Episodic Other skin disorders (20 sources) Lentiginosis; Translations: [Other melanin hyperpigmentation] Onset: 9 Resolved: 5 01-17-2015 Episodic Other upper respiratory infections (13 sources) Acute sinusitis; Translations: [Acute sinusitis, unspecified] Onset: 5 Episodic Residual codes; unclassified (20 sources) Sleep apnea; Translations: [Sleep apnea, unspecified] Onset: 9 Resolved: 6 02-25-2016 Chronic Residual codes; unclassified (20 sources) Periodic limb movement disorder; Translations: [Periodic limb movement disorder] Onset: 9 Resolved: 6 02-25-2016 Chronic Residual codes; unclassified (20 sources) Periodic leg movements of sleep ; Translations: [Periodic limb movement disorder] Onset: 9 Resolved: 6 02-25-2016 Chronic Residual codes; unclassified (20 sources) Insomnia; Translations: [Insomnia, unspecified] Onset: 9 06-04-2008 Episodic Residual codes; unclassified (1 source) Family history of arthritis; Translations: [Family history of rheumatoid arthritis] Onset: 5 Episodic Residual codes; unclassified (2 sources) Other general symptoms and signs; Translations: [Flu-like symptoms] Onset: 4 Episodic Residual codes; unclassified (1 source) Asymptomatic menopausal state; Translations: [Postmenopausal] Onset: 4 Episodic Results Test Name Value Interpretation Reference Range Facility .Auto Diffon 11-09-2024 Basophil, Absolute 0.0 10 3/mcL Normal 0.0-0.3 [facility] Comment on above: Performed By: #### A ZORAIDA ABSGEL #### [address] [id number] Basophils/100 WBC (Bld) 0.1 % Normal 0.0-2.[address] [facility] Comment on above: Performed By: #### A ZORAIDA ABSGEL #### [address] [address] Eosinophil, Absolute 0.0 10 3/mcL Normal 0.0-0.[address] [facility] Comment on above: Performed By: #### Lara CONWAY ABSGEL #### [address] [address] Eosinophils/100 WBC (Bld) 0.2 % Normal 0.0-6.[address] [facility] Comment on above: Performed By: #### A ZORAIDA ABSGEL #### [address] [address] Lymphocyte, Absolute 1.3 10 3/mcL Normal 0.9-4.[address]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 tablet by mouth once daily. - FERROUS SULFATE ORAL Take 365 mg by mouth once daily. - L.acid/L.casei/B.bif/B.jose/F OS (PROBIOTIC BLEND ORAL) Take 175 mg by mouth once daily. - aspirin 81 mg cap Take 81 mg by mouth once daily. - traMADol (ULTRAM) 50 mg tablet Take 50 mg by mouth two times a day as needed. - CPAP Initiate CPAP @ 9 cm of water with humidification. Mask (per patient preference) optional chin strap (if indicated) , filters, tubing, humidifier and lifetime supplies. - CPAP CHIN STRAP, USED WITH CPAP DEVICE - glucosam sul na/chondr galvan a na(GLUCOSAMINE-CHONDROITIN 3X 750 MG-600 MG TAB) Take 1 tablet twice daily. - MAGNESIUM OXIDE 500 MG TAB Take 250 mg by mouth once daily. - MELATONIN 3 MG TAB Take 10 mg by mouth. nightly - cholecalciferol(VITAMIN D-3 1,000 UNIT CHEWABLE TAB) Take 2 tablets daily. - methylsulfonylmethane(MSM 1,000 MG TAB) 1 tablet twice daily. - VITAMIN E 400 UNIT CAP Take one(1) tablet daily. - CALCIUM 600 + D(3) 600 MG-200 UNIT TAB Take one(1) tablet twice daily. - MULTIVITAMIN TAB Take one(1) tablet daily. Problem List As Of Date 10/23/2024 Noted Resolved Fibromyalgia [M79.7] 06/01/2008 Pain in joint, multiple sites [M25.50] 06/01/2008 01/17/2015 INSOMNIA NOS [G47.00] 06/01/2008 Chronic fatigue [R53.82] 06/01/2008 Other and unspecified hyperlipidemia [E78.5] 06/01/2008 12/22/2012 Recurrent major depressive disorder, in partial*06/01/2008 07/13/2023 ANEMIA NOS [D64.9] 06/01/2008 DISC DEGENERATION NOS [PLZ9448] 06/04/2008 Unspecified sleep apnea [G47.30] 07/31/2008 02/25/2016 Periodic limb movement disorder [G47.61] 09/12/2008 02/25/2016 Acute gastritis with hemorrhage [K29.01] 10/17/2008 04/30/2017 Contact dermatitis and other eczema, due to uns*02/14/2009 01/17/2015 Xerosis cutis [L85.3] 02/14/2009 01/17/2015 Sun-damaged skin [L57.8] 02/14/2009 01/17/2015 Lentigo [L81.4] 02/14/2009 01/17/2015 Melanocytic nevus of trunk [D22.5] 02/14/2009 02/25/2016 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] 02/14/2009 01/17/2015 Bunion [M21.619] 12/10/2009 Symptomatic menopausal or female climacteric st*01/12/2012 02/25/2016 Dyspareunia [ZPB8978] 05/23/2012 Change in bowel habits [R19.4] 11/23/2013 02/25/2016 GERD (gastroesophageal reflux disease) [K21.9] 11/23/2013 04/30/2017 Obstructive sleep apnea [G47.33] Generalized anxiety disorder [F41.1] 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.*07/13/2023 Screen for colon cancer [Z12.11] 01/27/2024 Encounter Status:Closed by MARLEEN ENRIQUEZ on 11/02/24 Normal [facility] CBC W Auto Differential pane l (Bld)on 10-17-2024 Basophils (Bld) [#/Vol] 0.04 10*3/uL Normal <0.11 [facility] Comment on above: Order Comment: Speci men Type: BLOOD SPECIMENOrdering Facility: [facility] Address: [address] [place] [address] Performed By: #### 5 7021-8 ####[facility] LABCLIA [id number] [place] [address] [place] Basophils/100 WBC (Bld) 0.5 % Normal [facility] Comment on above: Order Comment: Speci men Type: BLOOD SPECIMENOrdering Facility: [facility] Address: [address] [place] [address] Performed By: #### 5 7021-8 ####[facility] LABCLIA [id number] [place] [address] [place] Differential cell count method Nom (Bld) Auto Normal [facility] Comment on above: Order Comment: Speci men Type: BLOOD SPECIMENOrdering Facility: [facility] Address: [address] [place] [address] Performed By: #### 5 7021-8 ####[facility] LABCLIA [id number] [place] [address] [place] Eosinophils (Bld) [#/Vol] 0.07 10*3/uL Normal <0.46 [facility] Comment on above: Order Comment: Speci men Type: BLOOD SPECIMENOrdering Facility: [facility] Address: [address] [place] [address] Performed By: #### 5 7021-8 ####[facility] LABCLIA [id number] [address], [facility] [place] Eosinophils/100 WBC (Bld) 0.8 % Normal [facility] Comment on above: Order Comment: Speci men Type: BLOOD SPECIMENOrdering Facility: [facility] Address: [address] [place] [address] Performed By: #### 5 7021-8 ####[facility] LABCLIA [id number] [address], [place] [address] [place] Erythrocyte distribution width (RBC) [Ratio] 13.9 % Normal 11.5-15.0 [facility] Comment on above: Order Comment: Speci men Type: BLOOD SPECIMENOrdering Facility: [facility] Address: [address] [place] [address] Performed By: #### 5 7021-8 ####[facility] LABCLIA [id number] [address], [place] [address] [place] Hematocrit (Bld) [Volume fraction] 36.5 % Normal 36.0-46.0 [facility] Comment on above: Order Comment: Speci men Type: BLOOD SPECIMENOrdering Facility: [facility] Address: [address] [place] [address] Performed By: #### 5 7021-8 ####[facility] LABCLIA [id number] [facility] [address], [place] [address] [place] Hemoglobin (Bld) [Mass/Vol] 11.2 g/dL Low 11.5-15.5 [facility] Comment on above: Order Comment: Speci men Type: BLOOD SPECIMENOrdering Facility: [facility] Address: [address] [place] [address] Performed By: #### 5 7021-8 ####[facility] LABCLIA [id number] [facility] [address], [facility] [place] Immature granulocytes (Bld) [#/Vol] 10*3/uL Normal <0.10 [facility] Comment on above: Order Comment: Speci men Type: BLOOD SPECIMENOrdering Facility: [facility] Address: [address] [place] [address] Performed By: #### 5 7021-8 ####[facility] LABCLIA [id number] [place] [address] [place] Immature granulocytes/100 WBC (Bld) 0.2 % Normal [facility] Comment on above: Order Comment: Speci men Type: BLOOD SPECIMENOrdering Facility: [facility] Address: [address] [place] [address] Performed By: #### 5 7021-8 ####[facility] LABCLIA [id number] [place] [address] [place] Lymphocytes (Bld) [#/Vol] 2.40 10*3/uL Normal 1.00-4.00 [facility] Comment on above: Order Comment: Speci men Type: BLOOD SPECIMENOrdering Facility: [facility] Address: [address] [place] [address] Performed By: #### 5 7021-8 ####[facility] LABCLIA [id number] [place] [address] [place] Lymphocytes/100 WBC (Bld) 28.5 % Normal [facility] Comment on above: Order Comment: Speci men Type: BLOOD SPECIMENOrdering Facility: [facility] Address: [address] [place] [address] Performed By: #### 5 7021-8 ####[facility] LABCLIA [id number] [place] [id number] [place] MCH (RBC) [Entitic mass] 24.0 pg Low 26.0-34.0 [facility] Comment on above: Order Comment: Speci men Type: BLOOD SPECIMENOrdering Facility: [facility] Address: [address] [place] [address] Performed By: #### 5 7021-8 ####[facility] LABCLIA [id number] [place] [address] [place] MCHC (RBC) [Mass/Vol] 30.7 g/dL Normal 30.5-36.0 [facility] Comment on above: Order Comment: Speci men Type: BLOOD SPECIMENOrdering Facility: [facility] Address: [address] [place] [address] Performed By: #### 5 7021-8 ####[facility] LABIA [id number] [place] [address] [place] MCV (RBC) [Entitic vol] 78.2 fL Low 80.0-100.0 [facility] Comment on above: Order Comment: Speci men Type: BLOOD SPECIMENOrdering Facility: [facility] Address: [address] [place] [address] Performed By: #### 5 7021-8 ####[facility] LABIA [id number] [place] [address] [place] Monocytes (Bld) [#/Vol] 0.70 10*3/uL Normal <0.87 [facility] Comment on above: Order Comment: Speci men Type: BLOOD SPECIMENOrdering Facility: [facility] Address: [address] [place] [address] Performed By: #### 5 7021-8 ####[facility] LABIA [id number] [place] [address] [place] Monocytes/100 WBC (Bld) 8.3 % Normal [facility] Comment on above: Order Comment: Speci men Type: BLOOD SPECIMENOrdering Facility: [facility] Address: [address] [place] [address] Performed By: #### 5 7021-8 ####[facility] LABIA [id number] [place] [address] [place] Neutrophils (Bld) [#/Vol] 5.20 10*3/uL Normal 1.45-7.50 [facility] Comment on above: Order Comment: Speci men Type: BLOOD SPECIMENOrdering Facility: [facility] Address: [address] [place] [address] Performed By: #### 5 7021-8 ####[facility] LABIA [id number] [place] [address] [place] Neutrophils/100 WBC (Bld) 61.7 % Normal [facility] Comment on above: Order Comment: Speci men Type: BLOOD SPECIMENOrdering Facility: [facility] Address: [address] [place] [address] Performed By: #### 5 7021-8 ####[facility] LABIA [id number] [place] [address] [place] Nucleated RBC (Bld) [#/Vol] 10*3/uL Normal <0.01 [facility] Comment on above: Order Comment: Speci men Type: BLOOD SPECIMENOrdering Facility: [facility] Address: [address] [place] [address] Performed By: #### 5 7021-8 ####[facility] LABIA [id number] [place] [address] [place] Nucleated RBC/100 WBC (Bld) [Ratio] 0.0 /100 WBC Normal [facility] Comment on above: Order Comment: Speci men Type: BLOOD SPECIMENOrdering Facility: [facility] Address: [address] [place] [address] Performed By: #### 5 7021-8 ####[facility] LABIA [id number] [place] [address] [place] Platelet mean volume (Bld) [Entitic vol] 9.5 fL Normal 9.0-12.7 [facility] Comment on above: Order Comment: Speci men Type: BLOOD SPECIMENOrdering Facility: [facility] Address: [address] [place] [address] Performed By: #### 5 7021-8 ####[facility] LABIA [id number] [place] [id number] [place] Platelets (Bld) [#/Vol] 377 10*3/uL Normal 150-400 [facility] Comment on above: Order Comment: Speci men Type: BLOOD SPECIMENOrdering Facility: [facility] Address: [address] [place] [address] Performed By: #### 5 7021-8 ####[facility] LABIA [id number] [place] [address] [place] RBC (Bld) [#/Vol] 4.67 10*6/uL Normal 3.90-5.20 [facility] Comment on above: Order Comment: Speci men Type: BLOOD SPECIMENOrdering Facility: [facility] Address: [address] [place] [address] Performed By: #### 5 7021-8 ####[facility] [id number] [place] [id number] [place] WBC (Bld) [#/Vol] 8.43 10*3/uL Normal 3.70-11.00 [facility] Comment on above: Order Comment: Speci men Type: BLOOD SPECIMENOrdering Facility: [facility] Address: [address] [place] [address] Performed By: #### 5 7021-8 ####[facility] [id number] [place] [id number] [place] CNOVon 10-17-2024 CNOV Office Visit (INTMWS ) MARTINE LANDAVERDE ([id number]) 1955 F Date Time Provider Department 10/17/24 2:20 PM SANJAY YATES During your visit today, we recorded the following information about you: Pulse Respiration Blood pressure Weight 77/minute 16/minute 102/58 78.7 kg Sanjay Yates APRN.CNS 10/23/2024 9:00 AM Addendum Subjective Patient ID: Tristian is a 68 year old female who presents for Pre-Op Exam. HPI Presents today for a routine follow up visit. Presents for preoperative visit in internal medicine prior to total knee replacement surgery. Previous testing ordered by surgeon including labs and routine EKG. EKG was abnormal so she was referred to cardiology for further evaluation. She has since undergone repeat EKG which showed abnormal findings and underwent a subsequent stress test. The stress test was negative for ischemia. She was noted to be low risk for surgery. Today reports feeling well. Pre-Operative Evaluation: - Scheduled for right knee replacement surgery in 3 weeks. - Recent cardiology evaluation, including EKG and stress test, cleared her for surgery. - No history of CAD, CVA, or lung disease. - No recent infections since July. - No history of cancer or kidney problems. - Denies chest pain, dyspnea, or oxygen use. - Able to climb two flights of stairs, though not easily. - Independent in ADLs. - No recent steroid use. - No known diabetes. - Non-smoker. - Will bring CPAP machine for overnight hospital stay post-surgery. Chronic Right Knee Pain: - Limits walking to approximately 0.8 miles due to pain. - Requests 4% lidocaine patches for pain management. Hypertension: - Managed with Lisinopril 10 mg daily. - Recent BP readin/58 mmHg. Sleep Apnea: - Uses CPAP machine nightly. Chest pain: no Shortness of breath: no Walking on flat surface: no chest pain or shortness of breath on exertion 2 flight of stairs: can complete, no chest pain or shortness of breath on exertion Heart disease: no Stroke: no SHANNON: Treating consistently She notes the person she had planned to assist with her postoperatively is no longer available and currently does not have any help available at home for the postop period. ACS NSQIP Surgical Risk Calculator 1. Age Group: 65 - 74 years 2. Sex: female 3. Functional Status: Independent 4. Emergency Case: No 5. ASA Class: Mild systemic disease 6. Steroid use for chronic condition: No 7. Ascites within 30 days prior to surgery: No 8. Systemic Sepsis within 48 hours prior to surgery: None 9. Ventilator Dependent: No 10. Disseminated Cancer: No 11. Diabetes: None 12. Hypertension requiring medication: Yes 13. Congestive Heart Failure in 30 days prior to surgery: No 14. Dyspnea: No 15. Current Smoker within 1 Year: No 16. History of COPD: No 17. Dialysis: No 18. Acute Renal Failure: No 19. BMI Class Calculation: Overweight HTN: Without report of headache, chest pain, palpitations, dyspnea, peripheral edema, orthopnea, fatigue, and PND. Last 14 Encounter BP Readings: Date: BP: 10/17/2024 102/58 09/18/2024 114/67 08/31/2024 113/71 07/25/2024 112/67 07/20/2024 104/65 07/10/2024 121/72 07/04/2024 112/64 07/01/2024 122/80 06/22/2024 126/78 06/19/2024 111/65 03/14/2024 118/68 02/28/2024 108/60 02/28/2024 102/62 01/27/2024 117/61 ROS Constitutional: negative Cardiovascular: (-) chest pain Respiratory: (-) shortness of breath Musculoskeletal: (+) right knee pain, (+) back pain Objective BP 102/58 Pulse 77 Resp 16 Wt 78.7 kg (173 lb 8 oz) LMP 10/02/2007 SpO2 95% BMI 27.17 kg/m? Physical Exam Vitals and nursing note reviewed. Constitutional: Appearance: Normal appearance. HENT: Head: Normocephalic and atraumatic. Eyes: Conjunctiva/sclera: Conjunctivae normal. Neck: Thyroid: No thyroid mass or thyromegaly. Vascular: Normal carotid pulses. No carotid bruit or JVD. Cardiovascular: Rate and Rhythm: Normal rate and regular rhythm. Pulses: Carotid pulses are 2+ on the right side and 2+ on the left side. Radial pulses are 2+ on the right side and 2+ on the left side. Heart sounds: Normal heart sounds. Pulmonary: Effort: Pulmonary effort is normal. Abdominal: General: Bowel sounds are normal. Palpations: Abdomen is soft. Musculoskeletal: Right knee: Bony tenderness present. Decreased range of motion. Right lower leg: No edema. Left lower leg: No edema. Skin: General: Skin is warm and dry. Neurological: General: No focal deficit present. Mental Status: She is alert and oriented to person, place, and time. Latest Ref Rng 10/17/2024 WBC 3.70 - 11.00 k/uL 8.43 RBC 3.90 - 5.20 m/uL 4.67 Hemoglobin 11.5 - 15.5 g/dL 11.2 (L) Hematocrit 36.0 - 46.0 % 36.5 MCV 80.0 - 100.0 fL 78.2 (L) MCH 26.0 - 34.0 pg 24.0 (L) MCHC 30.5 - 36.0 g/dL 30. (more content not included)... Normal [facility] Comprehensive metabolic 2000 panelon 10-17-2024 Albumin [Mass/Vol] 4.3 g/dL Normal 3.9-4.9 [facility] Comment on above: Order Comment: Speci men Type: BLOOD SPECIMENOrdering Facility: [facility] Address: [address] [place] [address] Performed By: #### 2 4323-8 ####[facility] LABCLIA [id number] [place] [address] [place] ALP [Catalytic activity/Vol] 84 U/L Normal 34-123 [facility] Comment on above: Order Comment: Speci men Type: BLOOD SPECIMENOrdering Facility: [facility] Address: [address] [place] [address] Performed By: #### 2 4323-8 ####[facility] LABCLIA [id number] [place] [address] [place] ALT [Catalytic activity/Vol] 21 U/L Normal 7-38 [facility] Comment on above: Order Comment: Speci men Type: BLOOD SPECIMENOrdering Facility: [facility] Address: [address] [place] [address] Performed By: #### 2 4323-8 ####[facility] LABCLIA [id number] [address] [place] [address] [place] Anion gap [Moles/Vol] 11 mmol/L Normal 8-15 [facility] Comment on above: Order Comment: Speci men Type: BLOOD SPECIMENOrdering Facility: [facility] Address: [address] [place] [address] Performed By: #### 2 4323-8 ####[facility] LABCLIA [id number] [address], [facility] [place] AST [Catalytic activity/Vol] 22 U/L Normal 13-35 [facility] Comment on above: Order Comment: Speci men Type: BLOOD SPECIMENOrdering Facility: [facility] Address: [address] [place] [address] Performed By: #### 2 4323-8 ####[facility] LABCLIA [id number] [place] [address] [place] Bilirubin [Mass/Vol] 0.2 mg/dL Normal 0.2-1.3 [facility] Comment on above: Order Comment: Speci men Type: BLOOD SPECIMENOrdering Facility: [facility] Address: [address] [place] [address] Performed By: #### 2 4323-8 ####[facility] LABCLIA [id number] [place] [id number] [place] Calcium [Mass/Vol] 9.8 mg/dL Normal 8.5-10.2 [facility] Comment on above: Order Comment: Speci men Type: BLOOD SPECIMENOrdering Facility: [facility] Address: [address] [place], [place] [address] Performed By: #### 2 4323-8 ####[facility] LABCLIA [id number] [address], [facility] [place] Chloride [Moles/Vol] 101 mmol/L Normal 98-107 [facility] Comment on above: Order Comment: Speci men Type: BLOOD SPECIMENOrdering Facility: [facility] Address: [address] [place] [address] Performed By: #### 2 4323-8 ####[facility] LABIA [id number] [place] [id number] [place] CO2 [Moles/Vol] 26 mmol/L Normal 22-30 [facility] Comment on above: Order Comment: Speci men Type: BLOOD SPECIMENOrdering Facility: [facility] Address: [address] [place] [address] Performed By: #### 2 4323-8 ####[facility] LABIA [id number] [place] [address] [place] Creatinine [Mass/Vol] 0.99 mg/dL High 0.58-0.96 [facility] Comment on above: Order Comment: Speci men Type: BLOOD SPECIMENOrdering Facility: [facility] Address: [address] [place] [address] Performed By: #### 2 4323-8 ####[facility] LABIA [id number] [place] [address] [place] eGFRcr SerPlBld CKD-EPI 2020 62 mL/min/1.73m??? Normal >=60 [facility] Comment on above: Order Comment: Speci men Type: BLOOD SPECIMENOrdering Facility: [facility] Address: [address] [place] [address] Result Comment: Lani mated Glomerular Filtration Rate (eGFR) is calculated using the 2020 CKD-EPI creatinine equation. This equation utilizes serum creatinine, sex, and age as parameters. The creatinine assay has traceable calibration to isotope dilution-mass spectrometry. Refer to KDIGO guidelines for clinical interpretation. In patients with unstable renal function, e.g. those with acute kidney injury, the eGFR may not accurately reflect actual GFR. Performed By: #### 2 4323-8 ####[facility] LABIA [id number] [place] [id number] [place] Glucose [Mass/Vol] 86 mg/dL Normal 74-99 [facility] Comment on above: Order Comment: Speci men Type: BLOOD SPECIMENOrdering Facility: [facility] Address: [address] [place] [address] Result Comment: The [place] [employer] (ADA) provides guidance for cutoff values for fasting glucose and random glucose. The ADA defines fasting as no caloric intake for at least 8 hours. Fasting plasma glucose results between 100 to 125 mg/dL indicate increased risk for diabetes (prediabetes). Fasting plasma glucose results greater than or equal to 126 mg/dL meet the criteria for diagnosis of diabetes. In the absence of unequivocal hyperglycemia, results should be confirmed by repeat testing. In a patient with classic symptoms of hyperglycemia or hyperglycemic crisis, random plasma glucose results greater than or equal to 200 mg/dL meet the criteria for diagnosis of diabetes. Reference: Standards of Medical Care in Diabetes 2016, [place] [employer]. Diabetes Care. 2016.39(Suppl 1). Performed By: #### 2 4323-8 ####[facility] LABCLIA [id number] [place] [address] [place] Potassium [Moles/Vol] 4.2 mmol/L Normal 3.7-5.1 [facility] Comment on above: Order Comment: Speci men Type: BLOOD SPECIMENOrdering Facility: [facility] Address: [address] [place] [address] Performed By: #### 2 4323-8 ####[facility] LABCLIA [id number] [place] [id number] [place] Protein [Mass/Vol] 6.8 g/dL Normal 6.3-8.0 [facility] Comment on above: Order Comment: Speci men Type: BLOOD SPECIMENOrdering Facility: [facility] Address: [address] [place], [place] [address] Performed By: #### 2 4323-8 ####[facility] LABCLIA [id number] [facility] [address] [address] [place] Sodium [Moles/Vol] 138 mmol/L Normal 136-144 [facility] Comment on above: Order Comment: Speci men Type: BLOOD SPECIMENOrdering Facility: [facility] Address: [address] [place] [address] Performed By: #### 2 4323-8 ####[facility] LABCLIA [id number] [place] [id number] [place] Urea nitrogen [Mass/Vol] 27 mg/dL High 7-21 [facility] Comment on above: Order Comment: Speci men Type: BLOOD SPECIMENOrdering Facility: [facility] Address: [address] [place] [address] Performed By: #### 2 4323-8 ####[facility] [id number] [place] [address] [place] MR/BMS.BPon 10-13-2024 MR/BMS.BP [address], [address] [place] [address] OFFICE VISIT Date of Service: 10/12/24 MR#: [id number] Acct: [id number] Name: MARTINE LANDAVERDE Rep #: [id number] : 1955 [facility] rub[facility] Age/Sex: 68/F Location: [facility] [place].BP Status: Signed Intake Vital Signs 05/23/24 07:04 09/22/24 17:38 10/13/24 13:02 Height 5 ft 7 in 5 ft 7 in 5 ft 7 in BP Intake Visit Reasons: Follow up Allergies Sulfa (Sulfonamide Antibiotics) Allergy (Verified 08/24/24 00:42) Hives Have you fallen in the past year?: Yes [facility] Medical History Encounter for pre-operative cardiovascular clearance Abnormal EKG SOB (shortness of breath) Other hammer toe(s) (acquired), left foot Degenerative spondylolisthesis Left knee DJD Right knee DJD Fibromyalgia CFIDS (chronic fatigue and immune dysfunction syndrome) MRSA (methicillin resistant Staphylococcus aureus) colonization Low iron History of IBS Depression Anxiety Arthritis High cholesterol Back pain Injury of back Injury of head and neck CPAP (continuous positive airway pressure) dependence Hypertension Surgical History S/P cervical spinal fusion History of toe surgery Hx of left cataract extraction Hx of right cataract extraction Hx of spinal surgery Hx of thumb surgery History of bunionectomy of right great toe Hx of ovarian cystectomy Hx of cervical spine surgery Hx of hand surgery History of bunionectomy of left great toe History of bunionectomy of left great toe Family History Mother Heart disease Social History household members: spouse Smoking Status: Never smoker HPI History of Present Illness HPI: Martine Landaverde (Beth) is a 68 year-old female returning for therapy. She is scheduled for a knee replacement on 11/07/2024. Martine was tearful at times and presented as sad. She identified that has been antagonistic towards her resulting in negative thoughts about herself and ambivalence about the relationship. Martine reported some times of challenging his negative statements towards her, which she reported being unusual for her. She discussed need for positive support following the surgery. Encouraged verbalization of emotions while providing support. Normalized emotions. Worked on self-care and coping reinforcing recent efforts at both. Problem solved options for support following her surgery. Worked on thought patterns using CBT interventions. No SI. Future-oriented. Exam Mental Status Exam - Psych Appearance casually dressed and well kempt Attitude cooperative, calm, engaged, pleasant and friendly Activity/Motor Behavior appropriate eye contact and fidgeting (Appeared due to pain and difficulty sitting comfortably.) Speech regular rate, regular volume and regular prosody Mood sad Affect full range Thought Process linear, logical, coherent and goal directed Thought Content no delusions and no hallucinations Suicidal Ideation none Homicidal Ideation none Attention intact Concentration intact Sensorium/Orientation awake, alert and oriented x3 Memory/Cognition intact Insight good Judgement good Assessment Plan Assessment Plan (1) Anxiety: Plan: therapy using CBT, DBT, and ACT interventions to address thought patterns contributing to anxious symptoms and to teach coping skills. Psychiatric services to monitor anxious symptoms and medication effectiveness. (2) Depression: Plan: therapy using CBT, DBT, and ACT interventions to address thought patterns contributing to depressive symptoms and teach coping skills. Continued psychiatric services to monitor depressive symptoms and medication effectiveness. Pt. to call 911, call suicide prevention hotline, or go to ER if experiencing suicidal ideation with plan and intent and/or feel unable to ensure own safety. Plan TREATMENT PLAN Goal 1 - Will eliminate or reduce level of anxiety and other negative emotions related to traumatic experiences in relationship AEB by pt.'s report of symptom reduction. Objective 1 - Participate in cognitive therapy to help identify, challenge, and replace biased, negative, and self-defeating thoughts resulting from relationship experiences and interactions. Intervention 1 - Using cognitive therapy techniques, explore self-talk and beliefs about self, others and world; teach thinking distortions; and explore alternative thinking. Objective 2 - Verbalize insight into how relationship may be influencing current experiences with anxiety and other negative emotions. Intervention 1 - Help pt. increase insight into the role relatio (more content not included)... Normal [facility] MRSAPCRon 10-12-2024 MRSA (PCR) Not detected Normal Not Detected [facility] Comment on above: Result Comment: [place] [id number] Performed By: #### A SHA CONWAY #### [address] [address] MRSA PCR Int See Below Normal [facility] Comment on above: Result Comment: Clinical Interpretation: MRSA DNA not detected by Real-Time Polymerase Chain Reaction (PCR). A negative result may be due to intermittent colonization. Colonization may vary depending on patient treatment, patient status, or exposure to high-risk environments. As with all PCR based in vitro diagnostic tests, extremely low levels of target below the limit of detection of the assay may be detected, but results may not be reproducible. Performed By: #### A SHA CONWAY #### [address] [address] .Auto Diffon 10-11-2024 Basophil, Absolute 0.0 10 3/mcL Normal 0.0-0.3 [facility] Comment on above: Performed By: #### A SHA CONWAY #### [place] [address] [place], [place] [address] Basophils/100 WBC (Bld) 0.2 % Normal 0.0-2.[address] [facility] Comment on above: Performed By: #### A ZORAIDA ABSGEL #### [address] [address] Eosinophil, Absolute 0.0 10 3/mcL Normal 0.0-0.[address] [facility] Comment on above: Performed By: #### A ZORAIDA ABSGEL #### [address] [address] Eosinophils/100 WBC (Bld) 0.2 % Normal 0.0-6.[address] [facility] Comment on above: Performed By: #### A ZORAIDA ABSGEL #### [address] [address] Lymphocyte, Absolute 1.7 10 3/mcL Normal 0.9-4.[address] [facility] Comment on above: Performed By: #### A ZORAIDA ABSGEL #### [address] [address] Lymphocytes/100 WBC (Bld) 21.3 % Normal 20.0-40.[address] [facility] Comment on above: Performed By: #### A ZORAIDA ABSGEL #### [address] [address] Monocyte, Absolute 0.6 10 3/mcL Normal 0.1-1.4 [facility] Comment on above: Performed By: #### A ZORAIDA ABSGEL #### [address] [address] Monocytes/100 WBC (Bld) 7.5 % Normal 2.0-13.[address] [facility] Comment on above: Performed By: #### A ZORAIDA ABSGEL #### [address] [address] Neutrophils/100 WBC (Bld) 70.8 % Normal 50.0-75.[address] [facility] Comment on above: Performed By: #### A ZORAIDA ABSGEL #### [address] [address] .GFRon 07-09-2025 Estimated Glomerular Filtration Rate 61 ml/min/1.73sqm Normal [facility] Comment on above: Result Comment: Stages of Chronic Kidney Disease (CKD) Stage Description eGFR(ml/min/1.73 sq.m.) CKD 1 Normal kidney function or >=90 normal kindney function with possible kidney damage (ex. Proteinuria) CKD 2 Kidney damage with mild loss 60-89 of kidney function CKD 3a Mild to moderate loss of kidney 45-59 function CKD 3b Moderate to severe loss of 30-44 of kindey function CKD 4 Severe loss of kidney function 15-29 CKD 5 Kidney failure <15 Note: (go live 2024) the eGFR calculation was updated to the 2020 CKD-EPI creatinine equation without a race factor to calculate the eGFR results. Performed By: #### A SHA CONWAY #### [address] [address] .NEUABSon 10-11-2024 Neutrophil, Absolute 5.6 10 3/mcL Normal 2.3-8.[address] [facility] Comment on above: Performed By: #### A SHA CONWAY #### [address] [address] ABO/Rh (Gel)on 10-11-2024 ABO/Rh Interp Positive Invalid Interpretation Code [facility] Comment on above: Performed By: #### A SHA CONWAY #### [address] [address] ABS (Gel)on 10-11-2024 ABSC Interp (Gel) Negative Normal [facility] Comment on above: Performed By: #### A SHA CONWAY #### [address] [address] ALBon 10-11-2024 Albumin Level 3.8 G/dL Normal 3.4-4.[address] [facility] Comment on above: Performed By: #### SHA VILLA #### [address] [address] BMPon 10-11-2024 BUN/Creatinine Ratio 23 ratio Normal 7-[address] [facility] Comment on above: Performed By: #### A TIFFANY CONWAYGEL #### [address] [address] Calcium [Mass/Vol] 9.2 mg/dL Normal 8.4-10.2 [facility] Comment on above: Performed By: #### A TIFFANY CONWAYGEL #### [address] [address] Chloride [Moles/Vol] 101 mmol/L Normal 98-[address] [facility] Comment on above: Performed By: #### A SHA CONWAY #### [address] [address] CO2 [Moles/Vol] 29 mmol/L Normal 23-[address] [facility] Comment on above: Performed By: #### A SHA CONWAY #### [address] [address] Creatinine [Mass/Vol] 1.01 mg/dL High 0.51-0.[address] [facility] Comment on above: Performed By: #### A SHA CONWAY #### [address] [address] Electrolyte Balance 8.0 mEq/L Normal 4.0-15.0 [facility] Comment on above: Performed By: #### A SHA CONWAY #### [address] [address] Glucose [Mass/Vol] 94 mg/dL Normal 80-115 [facility] Comment on above: Performed By: #### SHA VILLA #### [address] [address] Potassium [Moles/Vol] 4.4 mmol/L Normal 3.5-5.[address] [facility] Comment on above: Performed By: #### A SHA CONWAY #### [address] [address] Sodium [Moles/Vol] 138 mmol/L Normal 136-145 [facility] Comment on above: Performed By: #### SHA VILLA #### [address] [address] Urea nitrogen [Mass/Vol] 23 mg/dL High 7-[address] [facility] Comment on above: Performed By: #### A SHA CONWAY #### [address] [address] CBCon 10-11-2024 Erythrocyte distribution width (RBC) [Ratio] 13.5 % Normal 11.5-15.[address] [facility] Comment on above: Order Comment: Pre-A dmission Testing Performed By: #### A SHA CONWAY #### [address] [address] Hematocrit (Bld) [Volume fraction] 37.5 % Normal 34.0-46.[address] [facility] Comment on above: Order Comment: Pre-A dmission Testing Performed By: #### A SHA CONWAY #### [place] [address] Hgb 11.8 G/dL Low 12.0-16.[address] [facility] Comment on above: Order Comment: Pre-A dmission Testing Performed By: #### A SHA CONWAY #### [address] [address] MCH (RBC) [Entitic mass] 23.8 pg Low 27.0-33.[address] [facility] Comment on above: Order Comment: Pre-A dmission Testing Performed By: #### A SHA CONWAY #### [address] [address] MCHC 31.5 G/dL Low 32.0-36.[address] [facility] Comment on above: Order Comment: Pre-A dmission Testing Performed By: #### A SHA CONWAY #### [place] [id number] MCV (RBC) [Entitic vol] 75.6 fL Low 80.0-99.[address] [facility] Comment on above: Order Comment: Pre-A dmission Testing Performed By: #### A SHA CONWAY #### [place] [place], [place] [address] Platelet 392 10 3/mcL Normal 150-[address] [facility] Comment on above: Order Comment: Pre-A dmission Testing Performed By: #### Lara TIFFANY CONWAYGEL #### [place] [place], [place] [address] Platelet mean volume (Bld) [Entitic vol] 7.3 fL Normal 6.6-10.[address] [facility] Comment on above: Order Comment: Pre-A dmission Testing Performed By: #### A SHA CONWAY #### [place] [address] [place], [place] [address] RBC 4.96 10 6/mcL Normal 4.10-5.[address] [facility] Comment on above: Order Comment: Pre-A dmission Testing Performed By: #### Lara TIFFANY CONWAYGEL #### [address] [address] WBC 7.9 10 3/mcL Normal 4.5-10.[address] [facility] Comment on above: Order Comment: Pre-A dmission Testing Performed By: #### Lara TIFFANY CONWAYGEL #### [address] [address] LABORATORYOrdered By: Anjel Kang on 10-11-2024 ABO and Rh group Nom (Bld) Blood group O Rh(D) positive Invalid Interpretation Code AO BB Auto SS Blood group antibody screen Ql Negative ABSC (10/11/24 2:10 PM) Normal AO BB Auto SS LABORATORYOrdered By: SYSTEM SYSTEM on 10-11-2024 Albumin BCP dye [Mass/Vol] 3.8 G/dL Normal 3.4 - 4.8 G/dL AO ADM SS Basophils (Bld) [#/Vol] 0.0 103/mcL Normal 0.0 - 0.3 10^3/mcL AO Workflow SS Basophils/100 WBC (Bld) 0.2 % Normal 0.0 - 2.5 % AO Workflow SS Calcium [Mass/Vol] 9.2 mg/dL Normal 8.4 - 10. 2 mg/dL AO ADM SS Chloride [Moles/Vol] 101 mmol/L Normal 98 - 107 mmol/L AO ADM SS CO2 [Moles/Vol] 29 mmol/L Normal 23 - 31 mmol/L AO ADM SS Creatinine [Mass/Vol] 1.01 mg/dL High 0.51 - 0.95 mg/dL AO ADM SS Electrolyte Balance 8.0 mEq/L Normal 4.0 - 15 .0 mEq/L AO ADM SS Eosinophil, Absolute 0.0 103/mcL Normal 0.0 - 0.7 10^3/mcL AO Workflow SS Eosinophils/100 WBC (Bld) 0.2 % Normal 0.0 - 6.0 % AO Workflow SS Erythrocyte distribution width (RBC) [Ratio] 13.5 % Normal 11.5 - 15.5 % AO Workflow SS Estimated Glomerular Filtration Rate 61 ml/min/1.73sqm Invalid Interpretation Code AO Chemistry S Comment on above: Interpretive Data: Stages of Chronic Kidney Disease (CKD) Stage Description eGFR(ml/min/1.73 sq.m.) CKD 1 Normal kidney function or >=90 normal kindney function with possible kidney damage (ex. Proteinuria) CKD 2 Kidney damage with mild loss 60-89 of kidney function CKD 3a Mild to moderate loss of kidney 45-59 function CKD 3b Moderate to severe loss of 30-44 of kindey function CKD 4 Severe loss of kidney function 15-29 CKD 5 Kidney failure <15 Note: (go live 2024) the eGFR calculation was updated to the 2020 CKD-EPI creatinine equation without a race factor to calculate the eGFR results. Glucose [Mass/Vol] 94 mg/dL Normal 80 - 115 mg/dL AO ADM SS Hematocrit (Bld) [Volume fraction] 37.5 % Normal 34.0 - 46.0 % AO Workflow SS Hemoglobin (Bld) [Mass/Vol] 11.8 G/dL Low 12.0 - 16.0 G/dL AO Workflow SS Lymphocytes (Bld) [#/Vol] 1.7 103/mcL Normal 0.9 - 4.3 10^3/mcL AO Workflow SS Lymphocytes/100 WBC (Bld) 21.3 % Normal 20.0 - 40.0 % AO Workflow SS MCH (RBC) [Entitic mass] 23.8 pg Low 27.0 - 33.0 pg AO Workflow SS MCHC 31.5 G/dL Low 32.0 - 36.0 G/dL AO Workflow SS MCV (RBC) [Entitic vol] 75.6 fL Low 80.0 - 99.0 fL AO Workflow SS Monocytes (Bld) [#/Vol] 0.6 103/mcL Normal 0.1 - 1.4 10^3/mcL AO Workflow SS Monocytes/100 WBC (Bld) 7.5 % Normal 2.0 - 13.0 % AO Workflow SS Neutrophils (Bld) [#/Vol] 5.6 103/mcL Normal 2.3 - 8.1 10^3/mcL AO Workflow SS Neutrophils/100 WBC (Bld) 70.8 % Normal 50.0 - 75.0 % AO Workflow SS Platelet mean volume (Bld) [Entitic vol] 7.3 fL Normal 6.6 - 10.5 fL AO Workflow SS Platelets (Bld) [#/Vol] 392 103/mcL Normal 150 - 450 10^3/mcL AO Workflow SS Potassium [Moles/Vol] 4.4 mmol/L Normal 3.5 - 5.1 mmol/L AO ADM SS RBC (Bld) [#/Vol] 4.96 106/mcL Normal 4.10 - 5.3 0 10^6/mcL AO Workflow SS Sodium [Moles/Vol] 138 mmol/L Normal 136 - 145 mmol/L AO ADM SS Urea nitrogen [Mass/Vol] 23 mg/dL High 7 - 18 mg/dL AO ADM SS Urea nitrogen/Creatinine [Mass ratio] 23 ratio Normal 7 - 27 ratio AO ADM SS WBC (Bld) [#/Vol] 7.9 103/mcL Normal 4.5 - 10.8 10^3/mcL AO Workflow SS MR/BMS.BPon 09-22-2024 MR/BMS.BP [address], [address] [place] [address] OFFICE VISIT Date of Service: 09/22/24 MR#: [id number] Acct: [id number] Name: MARTINE LANDAVERDE Rep #: [id number] : 1955 [facility] rub[facility] Age/Sex: 68/F Location: [facility] [place].BP Status: Signed Intake Vital Signs 05/23/24 07:04 09/09/24 08:37 09/22/24 17:38 Height 5 ft 7 in 5 ft 7 in 5 ft 7 in BP Intake Visit Reasons: Follow up Allergies Sulfa (Sulfonamide Antibiotics) Allergy (Verified 08/24/24 00:42) Hives Have you fallen in the past year?: Yes (Reported falling in her mulch recently.) [facility] Medical History Encounter for pre-operative cardiovascular clearance Abnormal EKG SOB (shortness of breath) Other hammer toe(s) (acquired), left foot Degenerative spondylolisthesis Left knee DJD Right knee DJD Fibromyalgia CFIDS (chronic fatigue and immune dysfunction syndrome) MRSA (methicillin resistant Staphylococcus aureus) colonization Low iron History of IBS Depression Anxiety Arthritis High cholesterol Back pain Injury of back Injury of head and neck CPAP (continuous positive airway pressure) dependence Hypertension Surgical History S/P cervical spinal fusion History of toe surgery Hx of left cataract extraction Hx of right cataract extraction Hx of spinal surgery Hx of thumb surgery History of bunionectomy of right great toe Hx of ovarian cystectomy Hx of cervical spine surgery Hx of hand surgery History of bunionectomy of left great toe History of bunionectomy of left great toe Family History Mother Heart disease Social History household members: spouse Smoking Status: Never smoker HPI History of Present Illness HPI: Martine Landaverde (Beth) is a 68 year-old female returning for therapy. She identified that she continues to run a low-grade fever. Her knee is healing, and she hopes to have knee surgery soon. Tristian reported that her has been more antagonistic towards her noting antagonistic behaviors increase when she is more vulnerable. Encouraged verbalization of emotions while providing support. Normalized emotions. Tristian identified regretting not asking for help or confronting certain statements. Worked on DBT skill coping ahead. Tristian discussed agreeing to do things she does not want to do in hopes of pacifying . Explored impact of this on her. Worked on self-care and coping. Tristian has worked on positive things for herself including watercolor painting and puzzles, which was reinforced. She reported that her spinal cord stimulator is not working properly, which she addressed with her physician. Tristian identified that she and siblings plan to sell parents' home stating this is a relief as nothing has occurred for several years. No SI. Future-oriented. Exam Mental Status Exam - Psych Appearance casually dressed and well kempt Attitude cooperative, calm, engaged, pleasant and friendly Activity/Motor Behavior appropriate eye contact and fidgeting (Appeared due to pain and difficulty sitting comfortably.) Speech regular rate, regular volume and regular prosody Mood sad Affect full range Thought Process linear, logical, coherent and goal directed Thought Content no delusions and no hallucinations Suicidal Ideation none Homicidal Ideation none Attention intact Concentration intact Sensorium/Orientation awake, alert and oriented x3 Memory/Cognition intact Insight good Judgement good Assessment Plan Assessment Plan (1) Anxiety: Plan: therapy using CBT, DBT, and ACT interventions to address thought patterns contributing to anxious symptoms and to teach coping skills. Psychiatric services to monitor anxious symptoms and medication effectiveness. (2) Depression: Plan: therapy using CBT, DBT, and ACT interventions to address thought patterns contributing to depressive symptoms and teach coping skills. Continued psychiatric services to monitor depressive symptoms and medication effectiveness. Pt. to call 911, call suicide prevention hotline, or go to ER if experiencing suicidal ideation with plan and intent and/or feel unable to ensure own safety. Plan TREATMENT PLAN Goal 1 - Will eliminate or reduce level of anxiety and other negative emotions related to traumatic experiences in relationship AEB by pt.'s report of symptom reduction. Objective 1 - Participate in cognitive therapy to help identify, challenge, and replace biased, negative, and self-defeating thoughts resulting from relationship experiences and interactions. Intervention 1 - Using cognitive therapy techniques, (more content not included)... Normal [facility] CNOVon 09-18-2024 CNOV Office Visit (INTMWS ) MARTINE LANDAVERDE ([id number]) 1955 F Date Time Provider Department 09/18/24 1:20 PM SANJAY YATES During your visit today, we recorded the following information about you: Pulse Respiration Blood pressure Weight 82/minute 16/minute 114/67 78.4 kg Sanjay Yates APRN.OPERATOR HELPER 09/18/2024 2:06 PM Signed Subjective Patient ID: Tristian is a 68 year old female who presents for F/U 6 Month. HPI Presents today for a routine follow up visit. Notes increased temperature with home readings intermittently since last here. Low-Grade Fever: - Persistent low-grade fever since July 06, following a viral illness. - Daily temperatures recorded at home, ranging from 97.7?F to 99.9?F. - Fever occurs daily, even before taking medications or drinking water. - Denies any known cause for the fever. - Desires clearance for knee replacement surgery. Knee Pain: - Ongoing knee pain x4 weeks, described as ouchy. - Pain improved but still present; applying lotion after showers. - Awaiting knee replacement surgery; concerned about fever delaying the procedure. - Next appointment with Dr. Barrios scheduled for October 04. Anxiety and Depression: - Anxiety exacerbated by verbal conflicts with . - Family history of anxiety in mother, aunt, and grandmother. - Manages anxiety through prayer and maintaining a positive outlook. - Denies being a worrier. Sleep Apnea: - Diagnosed in 2008. - Uses CPAP nightly, reports improved sleep quality. HTN: Without report of headache, chest pain, palpitations, dyspnea, peripheral edema, orthopnea, fatigue, and PND. Last 3 Encounter BP Readings: Date: BP: 08/31/2024 113/71 07/25/2024 112/67 07/20/2024 104/65 Hyperlipidemia. Ms. Landaverde reports doing well on current therapy. Her most recent lipid panels are: Cholesterol, Total (mg/dL) Date Value 12/27/2023 152 06/11/2023 224 01/23/2020 227 12/16/2017 216 HDL Cholesterol (mg/dL) Date Value 12/27/2023 43 06/11/2023 43 01/23/2020 51 12/16/2017 43 LDL Cholesterol, Calculated (mg/dL) Date Value 12/27/2023 81 06/11/2023 143 01/23/2020 148 12/16/2017 139 Triglyceride (mg/dL) Date Value 12/27/2023 141 06/11/2023 191 01/23/2020 139 12/16/2017 168 ROS Constitutional: (+) subjective fever Musculoskeletal: (+) knee pain, (+) knee tenderness Psychiatric: (+) anxiety, (-) worry Objective BP 114/67 Pulse 82 Resp 16 Wt 78.4 kg (172 lb 13.5 oz) LMP 10/02/2007 BMI 27.07 kg/m? Physical Exam Vitals and nursing note reviewed. Constitutional: Appearance: Normal appearance. HENT: Head: Normocephalic and atraumatic. Eyes: Conjunctiva/sclera: Conjunctivae normal. Cardiovascular: Rate and Rhythm: Normal rate. Pulmonary: Effort: Pulmonary effort is normal. Musculoskeletal: Left knee: Bony tenderness present. Decreased range of motion. Tenderness present. Right lower leg: No edema. Left lower leg: Swelling present. No edema. Comments: ecchymosis left knee Skin: General: Skin is warm and dry. Neurological: General: No focal deficit present. Mental Status: She is alert and oriented to person, place, and time. .1. Obstructive sleep apnea (G47.33) - Well-controlled with CPAP use since 2008. 2. Mixed hyperlipidemia (E78.2) Recommend a plant based diet such as Mediterranean diet with plenty of vegetables, fruits,whole grains, fish, chicken, turkey or plant proteins and routine exercise such as walking - Continue current treatment - Counseled on healthy diet and regular exercise 3. Encounter or imunization Z23 RSV vaccine at pharmacy 4. Generalized anxiety disorder (F41.1) 5. Moderate recurrent major depression (HCC) (F33.1) - Anxiety and depression are ongoing, exacerbated by familial stressors. - Is managing symptoms through prayer and mindfulness. 6. Anemia, unspecified type (D64.9) Stable on current treatment, continue unchanged 7. Vitamin D deficiency (E55.9) Stable on current treatment, continue unchanged Sanjay Yates APRN.OPERATOR HELPER Medical Decision Making: Problems: Moderate: 2+ stable chronic illnesses Risk: Moderate: Drug management Medical Decision Making Level: 4 - Moderate Allergies As of Date: 09/18/2024 Noted Allergy Reaction SULFA (SULFONAMIDE ANTIBIOTICS) 12/05/2004 4 - Hives Date Reviewed: 09/18/2024 Reviewed by: Radha Han LPN - Fully Assessed Reason for Visit: F/U 6 Month [444] Primary Visit Diagnosis:Obstructive sleep apnea [G47.33] Other Visit Diagnoses:Mixed hyperlipidemia [E78.2] Encounter for immunization [Z23] Generalized anxiety disorder [F41.1] 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.1] Anemia, unspecified type [D64.9] Vitamin D deficiency [E55.9] Order(s):ADVANCE CARE PLAN DISCUSSION [[id number]] Order #: [id number]: 1 RSV PRINTED PHARMACY INSTRUCTIONS [[id number]] Order #: (more content not included)... Normal [facility] MR/BMS.BPon 09-09-2024 MR/BMS.BP [address], [place] [address] OFFICE VISIT Date of Service: 09/08/24 MR#: [id number] Acct: [id number] Name: MARTINE LANDAVERDE Rep #: [id number] : 1955 [facility] Age/Sex: 68/F Location: [facility] [place].BP Status: Signed Intake Vital Signs 05/23/24 07:04 08/24/24 00:32 09/09/24 08:37 Height 5 ft 7 in 5 ft 7 in 5 ft 7 in BP Intake Visit Reasons: Follow up Allergies Sulfa (Sulfonamide Antibiotics) Allergy (Verified 08/24/24 00:42) Hives Have you fallen in the past year?: No PFSH Medical History Encounter for pre-operative cardiovascular clearance Abnormal EKG SOB (shortness of breath) Other hammer toe(s) (acquired), left foot Degenerative spondylolisthesis Left knee DJD Right knee DJD Fibromyalgia CFIDS (chronic fatigue and immune dysfunction syndrome) MRSA (methicillin resistant Staphylococcus aureus) colonization Low iron History of IBS Depression Anxiety Arthritis High cholesterol Back pain Injury of back Injury of head and neck CPAP (continuous positive airway pressure) dependence Hypertension Surgical History S/P cervical spinal fusion History of toe surgery Hx of left cataract extraction Hx of right cataract extraction Hx of spinal surgery Hx of thumb surgery History of bunionectomy of right great toe Hx of ovarian cystectomy Hx of cervical spine surgery Hx of hand surgery History of bunionectomy of left great toe History of bunionectomy of left great toe Family History Mother Heart disease Social History household members: spouse Smoking Status: Never smoker HPI History of Present Illness HPI: Martine Landaverde (Beth) is a 68 year-old female returning for therapy. She identified recovering from recent hospitalization for unilateral primary osteoarthritis of left knee and hemarthrosis. Martine reported need for knee surgery but needing to improve health in several areas before this can occur. She identified that has been more antagonistic towards her stating this is the pattern when she is vulnerable. Martine presented with increased sadness and discouragement when compared to other sessions. She expressed ambivalence about her marriage. Encouraged verbalization of emotions while providing support. Normalized her emotions. Reinforced her utilization of supports. Explored coping. Discussed the need to implement soothing and pleasant coping and/or self-care including after has been antagonistic towards her. Explored ways she can do so. No SI. Future-oriented. Exam Mental Status Exam - Psych Appearance casually dressed and well kempt Attitude cooperative, calm, engaged, pleasant and friendly Activity/Motor Behavior fidgeting (Appeared due to pain and difficulty sitting comfortably.) Speech regular rate, regular volume and regular prosody Mood sad Affect full range Thought Process linear, logical, coherent and goal directed Thought Content no delusions and no hallucinations Suicidal Ideation none Homicidal Ideation none Attention intact Concentration intact Sensorium/Orientation awake, alert and oriented x3 Memory/Cognition intact Insight good Judgement good Assessment Plan Assessment Plan (1) Anxiety: Plan: therapy using CBT, DBT, and ACT interventions to address thought patterns contributing to anxious symptoms and to teach coping skills. Psychiatric services to monitor anxious symptoms and medication effectiveness. (2) Depression: Plan: therapy using CBT, DBT, and ACT interventions to address thought patterns contributing to depressive symptoms and teach coping skills. Continued psychiatric services to monitor depressive symptoms and medication effectiveness. Pt. to call 911, call suicide prevention hotline, or go to ER if experiencing suicidal ideation with plan and intent and/or feel unable to ensure own safety. Plan TREATMENT PLAN Goal 1 - Will eliminate or reduce level of anxiety and other negative emotions related to traumatic experiences in relationship AEB by pt.'s report of symptom reduction. Objective 1 - Participate in cognitive therapy to help identify, challenge, and replace biased, negative, and self-defeating thoughts resulting from relationship experiences and interactions. Intervention 1 - Using cognitive therapy techniques, explore self-talk and beliefs about self, others and world; teach thinking distortions; and explore alternative thinking. Objective 2 - Verbalize insight into how relationship may be influencing current experiences with anxiety and other negative e (more content not included)... Normal [facility] Crystals, Body Fluidon 09-01 PATH REV Reviewed Normal [facility] Comment on above: Order Comment: Comme nts: Lt Knee Result Comment: PATH OLOGIST DIFFERNTIAL COUNT; 76% SEGMENTED NEUTROPHILS 14% LYMPHOCYTES 10% MONOCYTES/MACROPHAGES BLOOD FLUID. NEGATIVE FOR URATE CRYSTALS. Heather Rodriguez MD 09/01/2024 AMENDED REPORT 09/01/24 0907 PATH REV previously reported as: Will follow Performed By: #### L 200.4175, L200.0400, M100.4001, M100.2000, M100.2900 ####[facility] [address] [place], [address] CNOVon 08-31-2024 CNOV Office Visit (INTMWS ) MARTINE LANDAVERDE ([id number]) 1955 F Date Time Provider Department 08/31/24 3:00 PM SANJAY YATES INTMWS During your visit today, we recorded the following information about you: Temperature Pulse Respiration Blood pressure 99 degrees 91/minute 16/minute 113/71 Weight 79.2 kg Sanjay Yates APRN.CNS 08/31/2024 4:33 PM Signed Subjective Patient ID: Tristian is a 68 year old female who presents for Hospital F/U. HPI Presents today for hospital follow-up visit. She was seen at [facility] August 23 through August 24, 2024. She presented with left knee pain left knee osteoarthritis. Notes indicate osteoarthritis of the left knee with hemiarthrosis. She presented with swelling and pain in the left knee, no trauma. CT of the knee was performed, there was noted to be a moderate left knee joint effusion with mixed density contents consistent with hemarthrosis versus septic arthritis. There were noted to be intra-articular loose bodies adjacent to the lateral pole of the patella. Mild to moderate osteoarthritis of the knee was noted. The left knee was aspirated in the emergency room, 5 cc of bloody fluid was removed. Due to concern for septic arthritis she was admitted to the PCU and started on IV antibiotics. She was seen by PT OT and orthopedic surgery. MRI was performed and according to the orthopedic surgeon there was no evidence of any fracture or tearing of the meniscus. Orthopedic surgery recommended antibiotics be stopped and she could be sent home with weightbearing as tolerated. Right Knee Pain and Swelling: - Severe pain and swelling in the right knee, described as awful. - Noted a big lump on the knee. - Recent aspiration by a physician yielded 5 cc of blood; no infection suspected. - MRI revealed significant arthritis under the patella with fragments breaking off. - Scheduled to see an orthopedic PA tomorrow. - Taking Tylenol for pain; has oxycodone but uses it sparingly. - Using ice for swelling; has an SANTOS bandage but not consistently using compression. - Has a cane, walkers, and a rollator at home but not currently using them. Viral Infection: - Persistent low-grade fever since a viral infection on July 06. - Multiple tests performed, all negative. - Medical Laboratory Specialist consulted due to abnormal EKGs; noted a tilt in the heart. Weight Management: - Previously walked a mile a day to maintain weight. - Inquired about medication for weight loss, specifically to lose 22 lbs. - Engaging in chair yoga and upper body exercises. ROS Constitutional: (+) fever Musculoskeletal: (+) knee pain, (+) knee swelling Objective BP 113/71 Pulse 91 Temp 37.2 ?C (99 ?F) Resp 16 Wt 79.2 kg (174 lb 9.7 oz) LMP 10/02/2007 BMI 27.35 kg/m? Physical Exam Vitals and nursing note reviewed. Constitutional: Appearance: Normal appearance. HENT: Head: Normocephalic and atraumatic. Eyes: Conjunctiva/sclera: Conjunctivae normal. Cardiovascular: Rate and Rhythm: Normal rate. Pulmonary: Effort: Pulmonary effort is normal. Musculoskeletal: Left knee: Bony tenderness present. Decreased range of motion. Tenderness present. Right lower leg: No edema. Left lower leg: Swelling present. No edema. Comments: ecchymosis and effusion left knee Skin: General: Skin is warm and dry. Neurological: General: No focal deficit present. Mental Status: She is alert and oriented to person, place, and time. .1. Hemarthrosis of left knee (M25.062) 2. Chronic pain of left knee (M25.562) 3. Effusion of left knee (M25.462) - Recent MRI revealed significant arthritis under the patella with fragments causing hemarthrosis. - Hemarthrosis and effusion noted; 5 cc of blood aspirated previously. - No signs of infection; multiple blood tests performed during recent hospitalization. - Pain managed with Tylenol and oxycodone as needed. - Advised use of compression with SANTOS wrap or sleeve if comfortable, along with elevation and icing to reduce swelling and pain. - Follow-up appointment with orthopedic PA scheduled for tomorrow. Sanjay Yates APRN.CNS Medical Decision Making: Problems: Moderate: 1+ chronic illnesses with change Data: Unique source(s) for external note(s) reviewed: 1 Unique test result(s) reviewed: 1 Medical Decision Making Level: 3 - Sanjay Quick APRN.CNS 08/31/2024 3:42 PM Signed - Ice your knee regularly, and wrap it with an SANTOS bandage or a compression sleeve if it feels comfortable; remove it if it causes more pain. - Keep your knee elevated when you?re sitting to help reduce swelling and discomfort. - Continue taking Tylenol and the prescribed oxycodone as needed for pain relief. - Use your cane, walker, or rollator at home to ease weight on your knee and improve stability while walking. - Continue chair yoga, upper-nadine (more content not included)... Normal [facility] Body Fluid Culton 05-27-2025 BFC UNK UNK Lt Knee No growth in 5 days. Normal [facility] Comment on above: Performed By: #### L 200.4175, L200.0400, M100.4001, M100.2000, M100.2900 ####[facility] [address] [place], [address] Culture, Anaerobic Any Sourc darlene 08-29-2024 CUAN UNK UNK Lt Knee No growth in 5 days. Normal [facility] Comment on above: Performed By: #### L 200.4175, L200.0400, M100.4001, M100.2000, M100.2900 ####[facility] [address] [place], [address] Culture, Blood (WB)on 2024 CUB Blood cultures x2, f rom two different sites No growth in 5 days. Normal [facility] Comment on above: Performed By: #### L 500.2500, L100.0100 #### [facility] [address] [place], [address] 12 Lead EKGon 08-24-2024 12 Lead EKG [facility] [address] [place] [address] 12 Lead EKG 08/24/24 0540 MR#: [id number] Acct: [id number] Name: MARTINE LANDAVERDE Rep #: [id number] : 1955 68 From: Tara Moser MD Attending Dr: Dr. Sanjay Moe, DO Status: D IS IN Ordering Dr: Mark Sanchez MD Date: 08/24/24 Location: [facility] Sex: F C Admitted: 08/23/24 Test Reason : AM EKG Blood Pressure : */* mmHG Vent. Rate : 80 BPM Atrial Rate : 80 BPM P-R Int : 192 ms QRS Dur : 98 ms QT Int : 366 ms P-R-T Axes : 60 255 13 degrees QTcB Int : 422 ms Normal sinus rhythm with sinus arrhythmia Right superior axis deviation Right ventricular hypertrophy Cannot rule out Inferior infarct (cited on or before 27-Jun-2024) T wave abnormality, consider anterior ischemia Abnormal ECG When compared with ECG of 27-Jun-2024 13:09, Borderline criteria for Lateral infarct are no longer Present Questionable change in initial forces of Inferior leads Confirmed by MARICARMEN AGUILAR, XOCHITL ([id number]), editor house organ SHERIDAN BOB ([id number]) on 08/29/2024 6:57:35 AM Referred By: Confirmed By: XOCHITL MOSER MD 08/29/24 0657 Date Tara Moser MD CC: Dr. Mark Sanchez MD; Dr. Eriberto Tovar MD; Dr. Sanjay Moe, DO Signed Normal [facility] CBC W/Diff, Automatedon 08-04 Absolute Lymph 0.97 X10 3/uL Normal 0.83-4.51 [facility] Comment on above: Performed By: #### L 100.0100, L500.4050, L501.2300 ####[facility] [address] [place], [address] Absolute Neut 12.2 X10 3/uL High 2.0-7.7 [facility] Comment on above: Performed By: #### L 100.0100, L500.4050, L501.2300 ####[facility] [address] [place], [address] Basophils/100 WBC (Bld) 0.1 % Normal 0-1 [facility] Comment on above: Performed By: #### L 100.0100, L500.4050, L501.2300 ####[facility] [address] [place], [address] Eosinophils/100 WBC (Bld) 0.0 % Normal 0-5 [facility] Comment on above: Performed By: #### L 100.0100, L500.4050, L501.2300 ####[facility] [address] [place], [address] Erythrocyte distribution width (RBC) [Ratio] 13.9 % Normal 11.6-14.6 [facility] Comment on above: Performed By: #### L 100.0100, L500.4050, L501.2300 ####[facility] [address] [place], [address] Hematocrit (Bld) [Volume fraction] 33.6 % Low 37-47 [facility] Comment on above: Performed By: #### L 100.0100, L500.4050, L501.2300 ####[facility] [address] [place], [address] Hemoglobin (Bld) [Mass/Vol] 10.3 g/dL Low 12.0-15.0 [facility] Comment on above: Performed By: #### L 100.0100, L500.4050, L501.2300 ####[facility] [address] [place], [address] IG% 0.400 Normal 0.0-0.9 [facility] Comment on above: Result Comment: IG% - Immature Granulocytes (promyelocytes, myelocytes and metamyelocytes) > 1% indicates that a LEFT SHIFT is Present. Performed By: #### L 100.0100, L500.4050, L501.2300 ####[facility] [address] [place], [address] Lymphocytes/100 WBC (Bld) 7.3 % Low 19-41 [facility] Comment on above: Performed By: #### L 100.0100, L500.4050, L501.2300 ####[facility] [address] [place], [address] MCH (RBC) [Entitic mass] 24.0 pg Low 27.0-32.0 [facility] Comment on above: Performed By: #### L 100.0100, L500.4050, L501.2300 ####[facility] [address] [place], [address] MCHC (RBC) [Mass/Vol] 30.7 g/dL Low 32-36 [facility] Comment on above: Performed By: #### L 100.0100, L500.4050, L501.2300 ####[facility] [address] [place], [address] MCV (RBC) [Entitic vol] 78.3 fL Low 81-99 [facility] Comment on above: Performed By: #### L 100.0100, L500.4050, L501.2300 ####[facility] [address] [place], [address] Monocytes/100 WBC (Bld) 0.7 % Normal 0-10 [facility] Comment on above: Performed By: #### L 100.0100, L500.4050, L501.2300 ####[facility] [address] [place], [address] Neutrophils/100 WBC (Bld) 91.5 % High 47-70 [facility] Comment on above: Performed By: #### L 100.0100, L500.4050, L501.2300 ####[facility] [address] [place], [address] Nucleated RBC (Bld) [#/Vol] 0 10*3/uL Normal 0-5 [facility] Comment on above: Performed By: #### L 100.0100, L500.4050, L501.2300 ####[facility] [address] [place], [address] Platelet mean volume (Bld) [Entitic vol] 8.7 fL Normal 6.2-12.0 [facility] Comment on above: Performed By: #### L 100.0100, L500.4050, L501.2300 ####[facility] [address] [place], [address] Platelets (Bld) [#/Vol] 346 10*3/uL Normal 150-450 [facility] Comment on above: Performed By: #### L 100.0100, L500.4050, L501.2300 ####[facility] [address] [place], [address] RBC (Bld) [#/Vol] 4.29 10*6/uL Normal 4.2-5.4 [facility] Comment on above: Performed By: #### L 100.0100, L500.4050, L501.2300 ####[facility] [address] [place], [address] RDW SD 39.8 fl Normal 35.1-43.9 [facility] Comment on above: Performed By: #### L 100.0100, L500.4050, L501.2300 ####[facility] [address] [place], [address] WBC (Bld) [#/Vol] 13.3 10*3/uL High 4.4-11.0 [facility] Comment on above: Performed By: #### L 100.0100, L500.4050, L501.2300 ####[facility] [address] [place], [address] CRPon 08-24-2024 C-REACTIVE PROT < 3.00 Normal 0.0-3.0 [facility] Comment on above: Performed By: #### L 500.2500, L100.0100 #### [facility] [address] [place], [address] Comprehensive Metabolic Prof ilon 08-24-2024 Albumin [Mass/Vol] 3.9 g/dL Normal 3.4-4.8 [facility] Comment on above: Performed By: #### L 100.0100, L500.4050, L501.2300 ####[facility] [address] [place], [address] Albumin/Globulin [Mass ratio] 1.7 {ratio} Normal 0.9-2.4 [facility] Comment on above: Performed By: #### L 100.0100, L500.4050, L501.2300 ####[facility] [address] [place], [address] ALK PHOS 80 U/L Normal 35-104 [facility] Comment on above: Performed By: #### L 100.0100, L500.4050, L501.2300 ####[facility] [address] [place], [address] ALT [Catalytic activity/Vol] 24 U/L Normal <=34 [facility] Comment on above: Performed By: #### L 100.0100, L500.4050, L501.2300 ####[facility] [address] [place], [address] AST [Catalytic activity/Vol] 22 U/L Normal <=31 [facility] Comment on above: Performed By: #### L 100.0100, L500.4050, L501.2300 ####[facility] [address] [place], [address] Bilirubin [Mass/Vol] 0.17 mg/dL Normal 0.00-1.30 [facility] Comment on above: Performed By: #### L 100.0100, L500.4050, L501.2300 ####[facility] [address] [place], [address] BUN/CRE 16.3 RATIO Normal 10-20 [facility] Comment on above: Performed By: #### L 100.0100, L500.4050, L501.2300 ####[facility] [address] [place], [address] Calcium [Mass/Vol] 8.9 mg/dL Normal 7.6-11.0 [facility] Comment on above: Performed By: #### L 100.0100, L500.4050, L501.2300 ####[facility] [address] [place], [address] Chloride [Moles/Vol] 107 mmol/L Normal 98-108 [facility] Comment on above: Performed By: #### L 100.0100, L500.4050, L501.2300 ####[facility] [address] [place], [address] CO2 [Moles/Vol] 22.1 mmol/L Normal 21.0-32.0 [facility] Comment on above: Performed By: #### L 100.0100, L500.4050, L501.2300 ####[facility] [address] [place], [address] Creatinine [Mass/Vol] 0.96 mg/dL Normal 0.70-1.20 [facility] Comment on above: Performed By: #### L 100.0100, L500.4050, L501.2300 ####[facility] [address] [place], [address] ECRCL 60.88 ml/min Normal 50-250 [facility] Comment on above: Performed By: #### L 100.0100, L500.4050, L501.2300 ####[facility] [address] [place], [address] GAP 11 Normal 5-15 [facility] Comment on above: Performed By: #### L 100.0100, L500.4050, L501.2300 ####[facility] [address] [place], [address] GFR/1.73 sq M.predicted among non-blacks MDRD (S/P/Bld) [Vol rate/Area] 65 mL/min/{1.73_m2} Normal >60 [facility] Comment on above: Result Comment: mL/m in/1.73m2 CKD-EPI Creatinine Equation (2020) Performed By: #### L 100.0100, L500.4050, L501.2300 ####[facility] [address] [place], [address] Globulin (S) [Mass/Vol] 2.3 g/dL Normal 2.2-4.2 [facility] Comment on above: Performed By: #### L 100.0100, L500.4050, L501.2300 ####[facility] [address] [place], [address] Glucose [Mass/Vol] 162 mg/dL High 70-99 [facility] [facility] Comment on above: Performed By: #### L 100.0100, L500.4050, L501.2300 ####[facility] [address] [place], [address] Potassium [Moles/Vol] 4.8 mmol/L Normal 3.3-5.1 [facility] Comment on above: Performed By: #### L 100.0100, L500.4050, L501.2300 ####[facility] [address] [place], [address] Sodium [Moles/Vol] 139 mmol/L Normal 133-145 [facility] Comment on above: Performed By: #### L 100.0100, L500.4050, L501.2300 ####[facility] [address] [place], [address] T PROT 6.2 g/dL Normal 5.9-8.4 [facility] Comment on above: Performed By: #### L 100.0100, L500.4050, L501.2300 ####[facility] [address] [place], [address] Urea nitrogen [Mass/Vol] 16 mg/dL Normal 4-19 [facility] Comment on above: Performed By: #### L 100.0100, L500.4050, L501.2300 ####[facility] [address] [place], [address] Consultation - Orthopedicson 08-24-2024 Consultation - Orthopedics [facility] Medical Records Department [address] [place] [address] Consultation - Orthopedics 08/24/24 1505 MR#: [id number] Acct: [id number] Name: MARTINE LANDAVERDE Rep #: [id number] : 1955 68 From: Jose L Barrios MD PCP: Dr. Eriberto Tovar MD Status:ADM IN Location: [place] [address] HPI Consult Data Date of Consult: 08/24/24 HPI Narrative Reason for Consultation: Left knee pain and effusion HPI Narrative: MARTINE LANDAVERDE, is a 68 F who presents severe left knee pain and effusion. Patient was walking in the grocery store yesterday when she started to have severe pain and swelling. She was unable to ambulate she was in the emergency department. Aspiration was performed. Patient was noted to have bloody fluid in the joint. No specific trauma was noted. CT scan and MRI have been performed. CT scan consistent with significant degenerative changes. There is a read for an avulsion however it appears to be well-corticated and chronic without acute. Patient presents today with 5 out of 10 pain worse with motion better with immobilization. She notes her range of motion is better. She feels her swelling significantly improved from yesterday. Aspiration results showed roughly 3000 0 white blood cells which is not consistent with infectious etiology. Patient was placed on vancomycin overnight and made n.p.o. There was an MRI performed today. No read is in the chart as of yet. Patient is known to me with bilateral knee osteoarthritis. She was supposed to have right total knee replacement but developed viral infection which has postpone surgery. [facility] Medical History Encounter for pre-operative cardiovascular clearance Abnormal EKG SOB (shortness of breath) Other hammer toe(s) (acquired), left foot Degenerative spondylolisthesis Left knee DJD Right knee DJD Fibromyalgia CFIDS (chronic fatigue and immune dysfunction syndrome) MRSA (methicillin resistant Staphylococcus aureus) colonization Low iron History of IBS Depression Anxiety Arthritis High cholesterol Back pain Injury of back Injury of head and neck CPAP (continuous positive airway pressure) dependence Hypertension Home Medications ???Medication ???Instructions ???Recorded ???Last Taken ???Type diclofenac sodium 100 mg 75 mg PO BID NSAID 11/19/16 History tablet,extended release 24 hr venlafaxine 150 mg tablet,extended 150 mg PO BID Antidepressant 08/23/24 History release 24 hr antiarthritic combination no.2 900 900 mg PO BID Antiarthritis 11/0508/23/24 History mg tablet (glucosamine-chondroitin) cholecalciferol (vitamin D3) 50 50 mcg PO DAILY Supplement 08/23/24 History mcg (2,000 unit) capsule ferrous gluconate 324 mg (37.5 mg 324 mg PO DAILY Iron Supplement 0 12/02/20 08/23/24 History iron) tablet fluticasone propionate 50 1 spray intranasal DAILY Allergies 12/02/20 08/23/24 History mcg/actuation nasal spray,suspension (Flonase Allergy Relief) folic acid 400 mcg tablet 0.4 mg PO DAILY Supplement 08/23/24 History gabapentin 400 mg capsule 400 mg PO 4X/DAY Neuropathy 08/23/24 History magnesium citrate 100 mg capsule 100 mg PO DAILY Supplement 08/23/24 History melatonin 10 mg capsule 10 mg PO QHS PRN PRN sleep 08/22/24 History tramadol 50 mg tablet 50 mg PO BID PRN PRN pain 12/02/20 08/23/24 History vitamin E mixed 400 unit capsule 400 unit PO DAILY Supplement 12/0208/23/24 History lisinopril 10 mg tablet 10 mg PO DAILY Blood pressure 08/0308/23/24 History calcium carbonate 600 mg PO QHS Supplement 09/24/23 08/23/24 History clobetasol 0.05 % topical ointment 1 applic topical .weekly swellin g 09/24/23 08/17/24 History rosuvastatin 5 mg tablet 5 mg PO QHS Cholesterol pill 09/2308/22/24 History turmeric 400 mg capsule 400 mg PO DAILY Supplement 4 08/23/24 History ascorbic acid (vitamin C) 1,000 mg 1,000 mg PO DAILY Supplement 08/23/24 History tablet,extended release (C Complex) aspirin 81 mg capsule 81 mg PO DAILY Antiplatelet 08/23/24 History Allergy/AdvReac Type Severity Reaction Status Date / Time Sulfa (Sulfonamide Allergy Hives Verified 08/24/24 00:42 Antibiotics) Family History Mother Heart disease Surgical History S/P cervical spinal fusion History of toe surgery Hx of left cataract extraction Hx of right cataract extraction Hx of spinal surgery Hx of thumb surgery History of bunionectomy of right great toe Hx of ovarian cystectomy Hx of cervical spine surgery Hx of hand surgery History of bunionectomy of left grea (more content not included)... Normal [facility] Discharge Instructionon 08-04 Discharge Instruction [facility] Medical Records Department [address] [place] [address] Instructions for Home/Discharge Instructions 08/24/24 1703 MR#: [id number] Acct: [id number] Name: MARTINE LANDAVERDE Rep #: [id number] : 1955 68 From: Tonja Palomo MD PCP: Dr. Eriberto Tovar MD Status:ADM IN Discharge Instructions DC O2, CPAP, BIPAP needs Home O2 Discharge instructions: No Dressing / Incision Discharge Activity: - (Weightbearing as tolerated on left leg) Follow Up Care Test Results: Test results from this visit will be discussed in further detail at your follow-up appointment, if applicable. Discharge Plan Admission Admit Date/Time: 08/23/24 23:35 Primary Reason for Your Visit: Left knee pain Attending Provider: Sanjay Moe Primary Care Provider: Eriberto Tovar Consulting Providers: Jose L Barrios; Melchor Vilchis Instructions Patient Instructions: ED Fall Prevention Additional Instructions / Restrictions: DISCHARGE INSTRUCTIONS PLEASE READ *Please take this with you to your next doctors appointment* - Please follow-up with Dr. Barrios, the orthopedic doctor, in 2 weeks. Contact information provided below, please call to schedule this follow-up appointment on discharge -You will be weightbearing as tolerated on your left leg -Pain medication was sent into your preferred pharmacy on file -Please call your primary care provider's office upon discharge to schedule a hospital follow up within 1 week. -For any concerning signs or symptoms please call 911 or proceed to the nearest emergency department Discharge Orders/Prescriptions Prescriptions: New hydrocodone-acetaminophen 5-325 mg tablet 1 tab PO Q6H PRN (Reason: pain) 5 Days Qty: 20 0RF Continued gabapentin 400 mg capsule 400 mg PO 4X/DAY Patient Comments: TAKE 1 CAPSULE BY MOUTH FOUR TIMES DAILY folic acid 400 mcg tablet 0.4 mg PO DAILY melatonin 10 mg capsule 10 mg PO QHS PRN PRN (Reason: sleep) magnesium citrate 100 mg capsule 100 mg PO DAILY ferrous gluconate 324 mg (37.5 mg iron) tablet 324 mg PO DAILY vitamin E mixed 400 unit capsule 400 unit PO DAILY cholecalciferol (vitamin D3) 50 mcg (2,000 unit) capsule 50 mcg PO DAILY glucosamine-chondroitin 900 mg tablet 900 mg PO BID fluticasone propionate [Flonase Allergy Relief] 50 mcg/actuation spray,suspension 1 spray intranasal DAILY Rx Instructions: administer into each nostril lisinopril 10 mg tablet 10 mg PO DAILY diclofenac sodium 100 MG tablet extended release 24 hr 75 mg PO BID Patient Comments: venlafaxine 150 MG tablet extended release 24hr 150 mg PO BID C Complex 1,000 mg tablet extended release 1,000 mg PO DAILY aspirin 81 mg capsule 81 mg PO DAILY rosuvastatin 5 mg tablet 5 mg PO QHS turmeric 400 mg capsule 400 mg PO DAILY calcium carbonate 600 mg calcium (1,500 mg) tablet 600 mg PO QHS clobetasol 0.05 % ointment 1 applic topical .weekly Rx Instructions: Thursday Discontinued tramadol 50 mg tablet 50 mg PO BID PRN PRN (Reason: pain) Referrals / Follow Up: Eriberto Tovar MD [Primary Care Provider] - Within 1 Week Jose L Barrios MD [Med Staff - Active Staff] - Within 2 Weeks Disposition Disposition (needs filled in before D/C Order can be placed): Home, Self Care 08/24/24 1709 Tonja Palomo MD CC: Dr. Melcohr Vilchis DO; Dr. Eriberto Tovar MD; Dr. Jose L Barrios MD Signed Normal [facility] Erythrocyte Sed Rateon 08-24 SED RATE 12 mm/hr Normal 0-30 [facility] Comment on above: Performed By: #### L 101.9900 ####[facility] [address] [place], [address] Ferritinon 08-24-2024 Ferritin [Mass/Vol] 197 ng/mL Normal 22-378 [facility] Comment on above: Performed By: #### L 500.2500, L100.0100 #### [facility] [address] [place], [address] Gram Stainon 08-24-2024 GS UNK UNK Lt Knee Gram Stain Rare White Blood Cells 2+ Red Blood Cells No organisms seen Normal [facility] Comment on above: Performed By: #### L 200.4175, L200.0400, M100.4001, M100.2000, M100.2900 ####[facility] [address] [place], [address] Iron+Iron Binding Capacityon 08-24-2024 Iron [Mass/Vol] 44 ug/dL Low 50-170 [facility] Comment on above: Performed By: #### L 500.2500, L100.0100 #### [facility] [address] [place], [address] UIBC 252 ug/dL Normal 228-428 [facility] Comment on above: Performed By: #### L 500.2500, L100.0100 #### [facility] [address] [place], [address] Lower Ext Joint Only W/WO Co nton 08-24-2024 Lower Ext Joint Only W/WO Cont [facility] Imaging Services [address] [place] [address] Lower Ext Joint Only W/WO Cont MR#: [id number] Acct: [id number] Name: MARTINE LANDAVERDE Rep #: [id number] : 1955 F 68 From: Kerwin Ruby DO PCP: Dr. Eriberto Tovar MD Status: ADM IN Study: Lower Ext Joint Only W/WO Cont Date of Exam: 0 08/24/24 Exam# [id number] Ordering Dr: Melchor Vilchis DO PROCEDURE: LOWER EXT JOINT ONLY W/WO CONT 08/24/2024 REASON FOR EXAM: LEFT KNEE PAIN AND SWELLING TECHNIQUE: MRI of the left knee before and after intravenous gadolinium-based contrast. Multiplanar and multisequence images were obtained. CONTRAST: 15 cc Clariscan intravenous. COMPARISON: None. FINDINGS: The anterior and posterior cruciate ligaments are intact. The medial meniscus is intact. The lateral meniscus is normal. Small 5 mm fracture with surrounding edema involving the medial femoral condyle subjacent to the MCL attachment. There is no complete MCL rupture although I suspect partial tear with 8 cm cyst at the attachment. LCL is unremarkable. Medial femorotibial cartilage is unremarkable. Mild lateral patellofemoral cartilage loss. 9 mm osteophyte from the lateral tibial plateau. Severe patellofemoral osteoarthritis. Large joint effusion. Cluster of ganglion cysts adjacent to the medial head gastrocnemius origin, aggregate dimension 2.7 cm. Mild generalized subcutaneous edema although particularly prominent over the patella and lateral patellofemoral ligament. MRI/Lower Ext Joint Only W/WO Cont IMPRESSION: 1. Tiny 5 mm fracture of the medial femoral condyle with adjacent edema, at the MCL attachment site where there is a low-grade tear and small cyst. No complete MCL rupture. 2. Severe patellofemoral osteoarthritis with large joint effusion. Mild lateral compartment OA. 3. No imaging features of septic arthritis although arthrocentesis would be definitive. 4. No meniscal or cruciate ligament tear. Reading [facility] CC: Dr. Melchor Vilchis DO; Dr. Eriberto Tovar MD [employer]: Signed Normal [facility] Magnesiumon 08-24-2024 Magnesium [Mass/Vol] 2.4 mg/dL High 1.5-2.2 [facility] Comment on above: Performed By: #### L 500.2500, L100.0100 #### [facility] [address] [place], [address] Phosphoruson 08-24-2024 Phosphate [Mass/Vol] 3.4 mg/dL Normal 2.7-4.5 [facility] Comment on above: Performed By: #### L 100.0100, L500.4050, L501.2300 ####[facility] [address] [place], [address] Thyroid Stim Hormone (TSH)on 08-24-2024 TSH 2.070 uIU/mL Normal 0.300-4.200 [facility] Comment on above: Performed By: #### L 501.6710, L501.5200, L501.9520, L503.6030 ####[facility] [address] [place], [address] Urinalysis, Completeon 08-24 EPI,SQUAMOUS 0-5 SEEN Normal 5-10 [facility] Comment on above: Order Comment: CLEAN CATCH Performed By: #### L 400.0001 #### [facility] [address] [place], [address] RBC 0-5 SEEN Normal 0-5 [facility] Comment on above: Order Comment: CLEAN CATCH Performed By: #### L 400.0001 #### [facility] [address] [place], [address] BACTERIA 0 SEEN Normal None Seen [facility] Comment on above: Order Comment: CLEAN CATCH Performed By: #### L 400.0001 #### [facility] [address] [place], [address] Mucus Ql (Urine sed) 0 SEEN Normal [facility] Comment on above: Order Comment: CLEAN CATCH Performed By: #### L 400.0001 #### [facility] [address] [place], [address] WBC 0 SEEN Normal 0-5 [facility] Comment on above: Order Comment: CLEAN CATCH Performed By: #### L 400.0001 #### [facility] [address] [place], [address] Basic Metabolic Profile (BMP )on 08-23-2024 BUN/CRE 18.1 RATIO Normal 10-20 [facility] Comment on above: Performed By: #### L 500.2500, L100.0100 #### [facility] [address] [place], [address] Calcium [Mass/Vol] 9.4 mg/dL Normal 7.6-11.0 [facility] Comment on above: Performed By: #### L 500.2500, L100.0100 #### [facility] [address] [place], [address] Chloride [Moles/Vol] 106 mmol/L Normal 98-108 [facility] Comment on above: Performed By: #### L 500.2500, L100.0100 #### [facility] [address] [place], [address] CO2 [Moles/Vol] 22.4 mmol/L Normal 21.0-32.0 [facility] Comment on above: Performed By: #### L 500.2500, L100.0100 #### [facility] [address] [place], [address] Creatinine [Mass/Vol] 0.94 mg/dL Normal 0.70-1.20 [facility] Comment on above: Performed By: #### L 500.2500, L100.0100 #### [facility] [address] [place], [address] ECRCL 63.59 ml/min Normal 50-250 [facility] Comment on above: Performed By: #### L 500.2500, L100.0100 #### [facility] [address] [place], [address] GAP 11 Normal 5-15 [facility] Comment on above: Performed By: #### L 500.2500, L100.0100 #### [facility] [address] [place], [address] GFR/1.73 sq M.predicted among non-blacks MDRD (S/P/Bld) [Vol rate/Area] 66 mL/min/{1.73_m2} Normal >60 [facility] Comment on above: Result Comment: mL/m in/1.73m2 CKD-EPI Creatinine Equation (2020) Performed By: #### L 500.2500, L100.0100 #### [facility] [address] [place], [address] Glucose [Mass/Vol] 119 mg/dL High 70-99 [facility] Comment on above: Performed By: #### L 500.2500, L100.0100 #### [facility] [address] [place], [address] Potassium [Moles/Vol] 4.4 mmol/L Normal 3.3-5.1 [facility] Comment on above: Performed By: #### L 500.2500, L100.0100 #### [facility] [address] [place], [address] Sodium [Moles/Vol] 139 mmol/L Normal 133-145 [facility] Comment on above: Performed By: #### L 500.2500, L100.0100 #### [facility] [address] [place], [address] Urea nitrogen [Mass/Vol] 17 mg/dL Normal 4-19 [facility] Comment on above: Performed By: #### L 500.2500, L100.0100 #### [facility] [address] [place], [address] CBC W/Diff, Automatedon 05-2 -2024 Absolute Lymph 1.32 X10 3/uL Normal 0.83-4.51 [facility] Comment on above: Performed By: #### L 500.2500, L100.0100 #### [facility] [address] [place], [address] Absolute Neut 11.1 X10 3/uL High 2.0-7.7 [facility] Comment on above: Performed By: #### L 500.2500, L100.0100 #### [facility] [address] [place], [address] Basophils/100 WBC (Bld) 0.2 % Normal 0-1 [facility] Comment on above: Performed By: #### L 500.2500, L100.0100 #### [facility] [address] [place], [address] Eosinophils/100 WBC (Bld) 0.2 % Normal 0-5 [facility] Comment on above: Performed By: #### L 500.2500, L100.0100 #### [facility] [address] [place], [address] Erythrocyte distribution width (RBC) [Ratio] 13.9 % Normal 11.6-14.6 [facility] Comment on above: Performed By: #### L 500.2500, L100.0100 #### [facility] [address] [place], [address] Hematocrit (Bld) [Volume fraction] 35.8 % Low 37-47 [facility] Comment on above: Performed By: #### L 500.2500, L100.0100 #### [facility] [address] [place], [address] Hemoglobin (Bld) [Mass/Vol] 11.1 g/dL Low 12.0-15.0 [facility] Comment on above: Performed By: #### L 500.2500, L100.0100 #### [facility] [address] [place], [address] IG% 0.200 Normal 0.0-0.9 [facility] Comment on above: Result Comment: IG% - Immature Granulocytes (promyelocytes, myelocytes and metamyelocytes) > 1% indicates that a LEFT SHIFT is Present. Performed By: #### L 500.2500, L100.0100 #### [facility] [address] [place], [address] Lymphocytes/100 WBC (Bld) 10.3 % Low 19-41 [facility] Comment on above: Performed By: #### L 500.2500, L100.0100 #### [facility] [address] [place], [address] MCH (RBC) [Entitic mass] 23.9 pg Low 27.0-32.0 [facility] Comment on above: Performed By: #### L 500.2500, L100.0100 #### [facility] [address] [place], [address] MCHC (RBC) [Mass/Vol] 31.0 g/dL Low 32-36 [facility] Comment on above: Performed By: #### L 500.2500, L100.0100 #### [facility] [address] [place], [address] MCV (RBC) [Entitic vol] 77.2 fL Low 81-99 [facility] Comment on above: Performed By: #### L 500.2500, L100.0100 #### [facility] [address] [place], [address] Monocytes/100 WBC (Bld) 2.2 % Normal 0-10 [facility] Comment on above: Performed By: #### L 500.2500, L100.0100 #### [facility] [address] [place], [address] Neutrophils/100 WBC (Bld) 86.9 % High 47-70 [facility] Comment on above: Performed By: #### L 500.2500, L100.0100 #### [facility] [address] [place], [address] Nucleated RBC (Bld) [#/Vol] 0 10*3/uL Normal 0-5 [facility] Comment on above: Performed By: #### L 500.2500, L100.0100 #### [facility] [address] [place], [address] Platelet mean volume (Bld) [Entitic vol] 8.8 fL Normal 6.2-12.0 [facility] Comment on above: Performed By: #### L 500.2500, L100.0100 #### [facility] [address] [place], [address] Platelets (Bld) [#/Vol] 377 10*3/uL Normal 150-450 [facility] Comment on above: Performed By: #### L 500.2500, L100.0100 #### [facility] [address] [place], [address] RBC (Bld) [#/Vol] 4.64 10*6/uL Normal 4.2-5.4 [facility] Comment on above: Performed By: #### L 500.2500, L100.0100 #### [facility] [address] [place], [address] RDW SD 38.9 fl Normal 35.1-43.9 [facility] Comment on above: Performed By: #### L 500.2500, L100.0100 #### [facility] [address] [place], [address] WBC (Bld) [#/Vol] 12.8 10*3/uL High 4.4-11.0 [facility] Comment on above: Performed By: #### L 500.2500, L100.0100 #### [facility] [address] [place], [address] Emergency Department Summary on 08-23-2024 Emergency Department Summary [facility] Medical Records Department [address] [place] [address] Emergency Department Summary 08/23/24 MR#: [id number] Acct: [id number] Name: MARTINE LANDAVERDE Rep #: [id number] : 1955 68 From: Jacob Rosen DO PCP: Dr. Eriberto Tovar MD Status:ADM IN Location: [place] [address] HPI History of Present Illness Chief Complaint: Lower Extremity Injury Narrative Narrative: Chief complaint and HPI: Left knee pain and swelling. 68-year-old female with past medical history of bilateral knee DJD, HTN, fibromyalgia, CFIDS presents for evaluation of left knee pain and swe lling. Patient states she was at a grocery store walking when she developed severe left knee pain and swelling. She denies any trauma or fall. Denies any twisting of the knee. She was unable to walk secondary to the pain and therefore EMS was called. She denies any fever, chills, shortness of breath, chest pain, abdominal pain, nausea, vomiting, numbness/tingling, weakness. Denies pain elsewhere in the extremity. Review of systems: See HPI Medications: As listed on the chart Allergies: As listed on the chart PFSH: Per chart Vital signs: As listed on the chart. Reviewed. Physical exam: Gen: A O x3, NAD Head: Normocephalic, atraumatic Eyes: No sclera icterus, conjunctiva clear ENT: Moist mucous membranes Neck: Trachea midline, full range of motion CV: RRR, no murmurs Resp: Lungs CTA BL, no w/r/c GI: Abd soft, non-distended, non-tender Musc: Full ROM of all extremities except for limited in the left lower extremity secondary to left knee pain, left knee pain is worse with movement-she is able to flex and extend the knee but elicits pain, no knee instability, no clicking or popping of the knee, no obvious deformity, effusion/swelling to the left knee with mild tenderness to palpation, no erythema/warmth/crepitus/carol ann h, femur/calf nontender to palpation, compartments soft, sensation intact, good capillary refill, DP/PT pulses +2 bilaterally Neuro: Alert, oriented, grossly intact Psych: [facility] Medical History Encounter for pre-operative cardiovascular clearance Abnormal EKG SOB (shortness of breath) Other hammer toe(s) (acquired), left foot Degenerative spondylolisthesis Left knee DJD Right knee DJD Fibromyalgia CFIDS (chronic fatigue and immune dysfunction syndrome) MRSA (methicillin resistant Staphylococcus aureus) colonization Low iron History of IBS Depression Anxiety Arthritis High cholesterol Back pain Injury of back Injury of head and neck CPAP (continuous positive airway pressure) dependence Hypertension Home Medications ???Medication ???Instructions ???Recorded ???Last Taken ???Type diclofenac sodium 100 mg 75 mg PO BID 11/19/16 09/30/23 His tory tablet,extended release 24 hr venlafaxine 150 mg tablet,extended 150 mg PO BID 11/19/16 09/30/23 History release 24 hr antiarthritic combination no.2 900 900 mg PO BID 12/02/20 09/30/23 History mg tablet (glucosamine-chondroitin) cholecalciferol (vitamin D3) 50 50 mcg PO DAILY 12/02/20 09/30/23 History mcg (2,000 unit) capsule ferrous gluconate 324 mg (37.5 mg 324 mg PO DAILY 12/02/20 09/29/23 History iron) tablet fluticasone propionate 50 1 spray intranasal DAILY 12/02/20 09/30/23 History mcg/actuation nasal spray,suspension (Flonase Allergy Relief) folic acid 400 mcg tablet 0.4 mg PO DAILY 12/02/20 09/30/23 History gabapentin 400 mg capsule 400 mg PO 4X/DAY 12/02/20 10/01/23 History magnesium citrate 100 mg capsule 100 mg PO DAILY 12/02/20 09/30/23 History melatonin 10 mg capsule 10 mg PO QHS PRN PRN sleep 1 09/30/23 History tramadol 50 mg tablet 50 mg PO BID PRN PRN pain 12/02/20 10/01/23 History vitamin E mixed 400 unit capsule 400 unit PO DAILY 12/02/20 4 History lisinopril 10 mg tablet 10 mg PO DAILY 08/13/21 10/01/23 H istory calcium carbonate 600 mg PO QHS 09/24/23 09/30/23 Hi story clobetasol 0.05 % topical ointment 1 applic topical .weekly 4 09/29/23 History rosuvastatin 5 mg tablet 5 mg PO QHS 09/24/23 Unknown Histo ry turmeric 400 mg capsule 500 mg PO DAILY 09/24/23 09/30/23 History ascorbic acid (vitamin C) 1,000 mg 1,000 mg PO DAILY 06/21/24 Unkno wn History tablet,extended release (C Complex) aspirin 81 mg capsule 81 mg PO DAILY 06/21/24 Unknown Hi story Allergy/AdvReac Type Severity Reaction Status Date / Time Sulfa (Sulfonamide Allergy Hives Verified 07/12/24 15:46 Antibiotics) Family History Mother Heart disease Surgical History S/P cervical spinal fusion History of toe surgery H (more content not included)... Normal [facility] Extremity Lower without Cont raon 08-23-2024 Extremity Lower without Contra [facility] Services [address] [place] [address] Extremity Lower without Contra MR#: [id number] Acct: [id number] Name: MARTINE LANDAVERDE Rep #: [id number] : 1955 F 68 From: Golden Collins MD PCP: Dr. Eriberto Tovar MD Status: REG ER Study: Extremity Lower without Contra Date of Exam: 0 08/23/24 Exam# [id number] Ordering Dr: Jacob Rosen DO PROCEDURE: EXTREMITY LOWER WITHOUT CONTRA 08/23/2024 REASON FOR EXAM: PAIN, SWELLING TECHNIQUE: Axial CT images of the left knee obtained without intravenous contrast. Coronal and Sagittal reconstruction series were provided. One or more dose reduction techniques were used (e.g., Automated exposure control, adjustment of the mA and/or kV according to patient size, use of iterative reconstruction technique RADIATION DOSE SUMMARY: CTDlvol: 15.4 mGy DLP: 680 mGycm COMPARISON: None FINDINGS: No displaced fracture. Ossifications adjacent to the lateral pole of the patella measuring up to 1.7 cm, with concavity of the lateral patellar facet. Dtxy-oi-toshyyqu tricompartmental joint space narrowing and osteophyte formation. There is an os ossific body near the tibial spine measuring 0.6 cm (series 3, image 79). Subchondral cystic changes at the tibiofibular joint. There is a moderate joint effusion containing mixed density contents. Vascular calcifications in the soft tissues. CT/Extremity Lower without Contra IMPRESSION: 1. Moderate knee joint effusion with mixed density contents, which could represent hemarthrosis, with septic arthritis also possible. Additional considerations include synovial osteochondromatosis, pigmented villonodular synovitis, or other synovial pathologies. Consider fluid sampling. 2. Intra-articular loose bodies adjacent to the lateral pole of the patella measuring up to 1.7 cm, and adjacent to the tibial spine measuring 0.6 cm. There is concavity of the lateral patellar facet, which may be a donor site for these fragments. 3. Cfwr-el-epqwfflg osteoarthritis of the knee. Reading Location: [facility] CC: Dr. Jacob Rosen DO; Dr. Eriberto Tovar MD [employer]: Signed Normal [facility] H AND P Exam - Hospitaliston 08-23-2024 H&P Exam - Hospitalist [facility] Medical Records Department [address] [place] [id number] H P Exam - Hospitalist 08/23/242058 MR#: [id number] Acct: [id number] Name: MARTINE LANDAVERDE Rep #: [id number] : 1955 68 From: Melchor Vilchis DO PCP: Dr. Eriberto Tovar MD Status:ADM IN Location: [facility] [id number] HPI - General General Date of Admission: 08/23/24 Date of Service: 08/23/24 Chief Complaint: Painful Left Knee with Inability to Ambulate. HPI Narrative MARTINE LANDAVERDE, is a 68 F with a past medical history of essential hypertension; on lisinopril, hyperlipidemia; on rosuvastatin, overweight; with BMI of 28.8 this admission, history of CFIDS, OSMANY; on ferrous gluconate, depression with anxiety; on venlafaxine, fibromyalgia; on gabapentin QID, IBS, history of MRSA and OA; with bilateral knee DJD and previous back injuries after falling down stairs (1993 2019) with degenerative spondylolisthesis; s/p cervical spine fusion on diclofenac BID plus prn tramadol BID followed by Dr. Barrios of orthopedics with plan for Right TKR last month that was cancelled due to a viral URI who presents to [facility] ER complaining of painful Left knee with inability to ambulate. Mrs. Landaverde reports her symptoms began approximately one hour prior to arrival when she was leaving a local shopping market when she suddenly developed severe Left knee pain with an field administrative assistant from the store able to help her get to a bench and sit down safely. She called her and when he arrived she was unable to get into their personal vehicle due to severe pain so EMS was then activated. She denies recent fall or traumatic injury or similar previous episodes. There was no report of fever, chills, nausea, vomiting, diarrhea, constipation, abdominal pain, chest pain, palpitations, heart racing, SOB, cough, headache or rash. In the ER she was noted to have a CT scan of the Left knee that revealed moderate knee joint effusion with mixed density contents, which could represent hemarthrosis and/or septic arthritis with recommendation for arthrocentesis in addition to intraarticular loose bodies adjacent to the lateral pole of the patella measuring up to 1.7 cm and adjacent to the tibial spine measuring 0.6 cm in addition to ndmi-qi-lnqfinpj OA of the Left knee with hospitalist service contacted originally around 21:00 hours but patient unable to be admitted at that time without labs including arthrocentesis to clarify diagnosis. She then underwent arthrocentesis with bloody tap and highly elevated synovial WBC of 2.98K with 62% neutrophils suggestive of possible Septic Arthritis complicated by Severe Pain and Inability to Ambulate with additional labs done with ER physician recontacted at 23:30 hours and she was then admitted to the general medical floor for ongoing care for a stay that is expected to extend beyond 2 midnights. [facility] Medical History Encounter for pre-operative cardiovascular clearance Abnormal EKG SOB (shortness of breath) Other hammer toe(s) (acquired), left foot Degenerative spondylolisthesis Left knee DJD Right knee DJD Fibromyalgia CFIDS (chronic fatigue and immune dysfunction syndrome) MRSA (methicillin resistant Staphylococcus aureus) colonization Low iron History of IBS Depression Anxiety Arthritis High cholesterol Back pain Injury of back Injury of head and neck CPAP (continuous positive airway pressure) dependence Hypertension Home Medications ???Medication ???Instructions ???Recorded ???Last Taken ???Type diclofenac sodium 100 mg 75 mg PO BID NSAID 11/19/16 History tablet,extended release 24 hr venlafaxine 150 mg tablet,extended 150 mg PO BID Antidepressant 08/23/24 History release 24 hr antiarthritic combination no.2 900 900 mg PO BID Antiarthritis 11/0508/23/24 History mg tablet (glucosamine-chondroitin) cholecalciferol (vitamin D3) 50 50 mcg PO DAILY Supplement 08/23/24 History mcg (2,000 unit) capsule ferrous gluconate 324 mg (37.5 mg 324 mg PO DAILY Iron Supplement 0 12/02/20 08/23/24 History iron) tablet fluticasone propionate 50 1 spray intranasal DAILY Allergies 12/02/20 08/23/24 History mcg/actuation nasal spray,suspension (Flonase Allergy Relief) folic acid 400 mcg tablet 0.4 mg PO DAILY Supplement 1 08/23/24 History gabapentin 400 mg capsule 400 mg PO 4X/DAY Neuropathy 08/23/24 History magnesium citrate 100 mg capsule 100 mg PO DAILY Supplement 08/23/24 History melatonin 10 mg capsule 10 mg PO QHS PRN PRN sleep 1 08/22/24 History tramadol 50 mg tablet 50 mg PO BID PRN PRN pain 12/02/20 08/23/24 History vitamin E mixed 400 unit capsule 400 unit PO DAILY Supplement 12/0208/23/24 History lisinop (more content not included)... Normal [facility] Synovial Fluid RBC, WBC AND Diffon 08-23-2024 SYNOVIAL CLAUDE. Turbid Normal CLEAR [facility] Comment on above: Order Comment: Comme nts: Lt Knee Performed By: #### L 200.4175, L200.0400, M100.4001, M100.2000, M100.2900 ####[facility] [address] [place], [address] SYNOVIAL COLOR Bloody Normal Pale Yellow [facility] Comment on above: Order Comment: Comme nts: Lt Knee Performed By: #### L 200.4175, L200.0400, M100.4001, M100.2000, M100.2900 ####[facility] [address] [place], [place], [id number] SYNOVIAL SOURCE LEFT KNEE Normal [facility] Comment on above: Order Comment: Comme nts: Lt Knee Performed By: #### L 200.4175, L200.0400, M100.4001, M100.2000, M100.2900 ####[facility] [address] [place], [address] MR/BMS.BPon 08-11-2024 MR/BMS.BP [address], [address] [place] [address] OFFICE VISIT Date of Service: 08/11/24 MR#: [id number] Acct: [id number] Name: MARTINE LANDAVERDE Rep #: [id number] : 1955 Provider: [facility] Justine rubio Age/Sex: 68/F Location: [facility].BP Status: Signed Intake Vital Signs 05/23/24 07:04 07/12/24 15:41 08/11/24 12:53 Height 5 ft 7 in 5 ft 7 in 5 ft 7 in BP Intake Visit Reasons: Follow up Allergies Sulfa (Sulfonamide Antibiotics) Allergy (Verified 07/12/24 15:46) Hives Have you fallen in the past year?: No PFSH Medical History Encounter for pre-operative cardiovascular clearance Abnormal EKG SOB (shortness of breath) Other hammer toe(s) (acquired), left foot Degenerative spondylolisthesis Left knee DJD Right knee DJD Fibromyalgia CFIDS (chronic fatigue and immune dysfunction syndrome) MRSA (methicillin resistant Staphylococcus aureus) colonization Low iron History of IBS Depression Anxiety Arthritis High cholesterol Back pain Injury of back Injury of head and neck CPAP (continuous positive airway pressure) dependence Hypertension Surgical History S/P cervical spinal fusion History of toe surgery Hx of left cataract extraction Hx of right cataract extraction Hx of spinal surgery Hx of thumb surgery History of bunionectomy of right great toe Hx of ovarian cystectomy Hx of cervical spine surgery Hx of hand surgery History of bunionectomy of left great toe History of bunionectomy of left great toe Family History Mother Heart disease Social History household members: spouse Smoking Status: Never smoker HPI History of Present Illness HPI: Martine Landaverde (Beth) is a 68 year-old female returning for therapy. She reported having been sick with a virus since early 07/2024 preventing her from having her orthopaedic surgery. Tristian reported was antagonistic towards her on the evening she found out she could not have surgery, which was hurtful to her. Encouraged verbalization of emotions while providing support. Reinforced Tristian's response to and coping. Worked on coping and communication. Discussed opposite action providing psychoeducation. She is looking forward to celebrating grandson's birthday and is working on household tasks while awaiting surgery approval. No reports of SI. Future-oriented. Exam Mental Status Exam - Psych Appearance casually dressed and well kempt Attitude cooperative, calm, engaged, pleasant and friendly Activity/Motor Behavior fidgeting (Appeared due to pain and difficulty sitting comfortably.) Speech regular rate, regular volume and regular prosody Mood OK Affect full range Thought Process linear, logical, coherent and goal directed Thought Content no delusions and no hallucinations Suicidal Ideation none Homicidal Ideation none Attention intact Concentration intact Sensorium/Orientation awake, alert and oriented x3 Memory/Cognition intact Insight good Judgement good Assessment Plan Assessment Plan (1) Anxiety: Plan: therapy using CBT, DBT, and ACT interventions to address thought patterns contributing to anxious symptoms and to teach coping skills. Psychiatric services to monitor anxious symptoms and medication effectiveness. (2) Depression: Plan: therapy using CBT, DBT, and ACT interventions to address thought patterns contributing to depressive symptoms and teach coping skills. Continued psychiatric services to monitor depressive symptoms and medication effectiveness. Pt. to call 911, call suicide prevention hotline, or go to ER if experiencing suicidal ideation with plan and intent and/or feel unable to ensure own safety. Plan TREATMENT PLAN Goal 1 - Will eliminate or reduce level of anxiety and other negative emotions related to traumatic experiences in relationship AEB by pt.'s report of symptom reduction. Objective 1 - Participate in cognitive therapy to help identify, challenge, and replace biased, negative, and self-defeating thoughts resulting from relationship experiences and interactions. Intervention 1 - Using cognitive therapy techniques, explore self-talk and beliefs about self, others and world; teach thinking distortions; and explore alternative thinking. Objective 2 - Verbalize insight into how relationship may be influencing current experiences with anxiety and other negative emotions. Intervention 1 - Help pt. increase insight into the role relational pattern may be influencing current vulnerabilities to anxiety and other negative emotions; identify core conflictual themes; and develop effe (more content not included)... Normal [facility] Stress Reporton 08-02-2024 Stress Report [facility] [address] [place] [address] MR#: [id number] Acct: [id number] Name: MARTINE LANDAVERDE Rep #: [id number] : 1955 68 From: Nahum Peacock MD Primary Care: Dr. Eriberto Tovar MD Status: REG CLI Referring Dr: Nahum Peacock MD Sex: F C Stress Test Report Pharmacologic myocardial perfusion stress test. 68-year-old lady with a history of abnormal EKG Resting EKG demonstrates sinus bradycardia with a rate of 57 bpm. Resting blood pressure is 116/72 mmHg. 0.4 mg of regadenoson was infused per usual protocol followed by rapid intravenous saline flush injection. Continuous EKG monitoring was performed. The maximum heart rate was 84 bpm which was 55 to of max impacted heart rate the maximum workload was 1 metabolic equivalent. At rest there were no ST or T wave changes noted to suggest ischemia and at peak infusion nonspecific ST changes were noted which did not meet the criteria for ischemia. No clinical angina is noted. The final blood pressure was 112/62 mmHg. Myocardial perfusion protocol. 11 point mCi of technetium 99m sestamibi was injected at rest. 0.4 mg of regadenoson was infused per usual protocol. At peak infusion 33.1 mCi of technetium 99m sestamibi was injected stress images were obtained stress and rest images were reconstructed and compared in the short axis vertical long and horizontal long axis. Gated images were also obtained. Perfusion SPECT analysis: Review of the stress images demonstrate normal uptake of tracer noted in all areas of the myocardium. The resting images similar demonstrated normal uptake of tracer noted in all areas of the myocardium. No areas of reversibility are noted to suggest ischemia and no previous infarct is noted. Gated SPECT analysis: The gated ejection fraction is 75%. Conclusion: Normal pharmacologic myocardial perfusion stress test. Preserved ejection fraction. 08/02/24 1254 Date Nahum Peacock MD CC: Dr. Nahum Peacock MD; Dr. Eriberto Tovar MD Date Dictated: 08/02/241252 Date Transcribed: 08/02/241252 [employer] Driver: [place] Signed [place] [facility] DESMONDOVon 07-25-2024 OV Office Visit (INTMWS ) MARTINE LANDAVERDE ([id number]) 1955 F Date Time Provider Department 07/25/24 6:40 PM ERIBERTO TOVAR INTMWS During your visit today, we recorded the following information about you: Temperature Pulse Respiration Blood pressure 99.9 degrees 90/minute 16/minute 112/67 Weight Height 77.8 kg 1.702 m Eriberto Tovar MD 08/08/2024 1:35 AM Signed This note was created using [employer]. Subjective Martine Landaverde is a 68 year old female. Patient presents with: Recheck Tristian is a 68-year-old female with a history of chronic fatigue syndrome and fibromyalgia, presenting for follow-up after experiencing flu-like symptoms on July 20. Tristian reports persistent cephalalgia and low-grade fevers since July 06, following an initial presentation of flu-like symptoms on July 20. She notes that her fevers, previously reaching 101.4?F, have decreased to below 100?F, but she continues to feel wiped out and struggles to function normally. Her baseline temperature is 97.4?F, making any fever surprising to her. She denies cough, sinus pain or pressure, and ear pain or pressure, but mentions that her head hurts, particularly in the ear, though not like sinus pain. She also reports feeling too hot all the time, a significant change from her usual state. Tristian has been taking iron and vitamin C daily to address low iron stores, which she notes have been a chronic issue. She denies any other symptoms and is awaiting a stress test on the to clear her for a knee replacement surgery that was postponed due to her illness. She has been using Atrovent nasal spray as prescribed but is unsure if she should continue using Flonase. She also reports dry mouth, particularly at night, despite using a CPAP machine with a full mask and humidifier. PAST MEDICAL HISTORY Diagnosis Date Chronic fatigue syndrome Depression Dyspareunia 05/23/2012 Generalized anxiety disorder Hx of colonoscopy 01/27/2024 PER LIP NEEDS MAC AND ADULT SCOPE Mitral valve disorders(424.0) Myalgia and myositis, unspecified Obstructive sleep apnea Not treating because of cost Other kyphoscoliosis and scoliosis SPURS/VERTEBRAE Other specified iron deficiency anemias Unspecified sleep apnea Current Outpatient Medications Medication Sig Ipratropium [place] (ATROVENT) 21 mcg (0.03 %) nasal spray Use 2 sprays in the nose every 12 hours. as needed for nasal congestion venlafaxine ER (EFFEXOR XR) 150 mg 24 hr capsule Take 1 capsule by mouth two times a day. traZODone (DESYREL) 50 mg tablet Take 0.5-1 tablets by mouth daily at bedtime. gabapentin (NEURONTIN) 400 mg capsule Take 1 capsule by mouth four times daily for 180 days. as directed diclofenac, EC, (VOLTAREN) 75 mg EC tablet Take 1 tablet by mouth two times a day. For pain/inflammation. Take with food. rosuvastatin (CRESTOR) 5 mg tablet Take 1 tablet by mouth daily at bedtime. lisinopril (PRINIVIL) 10 mg tablet Take 1 tablet by mouth once daily. clobetasol (TEMOVATE) 0.05 % ointment Apply 1 application to affected area two times a week. TURMERIC ORAL Take 500 mg by mouth once daily. Turmeric 500mg and black pepper 5mg Zinc Gluconate 100 mg tab Take 2 tablets by mouth once daily. COQ10, UBIQUINOL, ORAL Take 1 tablet by mouth once daily. FERROUS SULFATE ORAL Take 365 mg by mouth once daily. L.acid/L.casei/B.bif/B.jose/F OS (PROBIOTIC BLEND ORAL) Take 175 mg by mouth once daily. aspirin 81 mg cap Take 81 mg by mouth once daily. traMADol (ULTRAM) 50 mg tablet Take 50 mg by mouth two times a day as needed. CPAP Initiate CPAP @ 9 cm of water with humidification. Mask (per patient preference) optional chin strap (if indicated) , filters, tubing, humidifier and lifetime supplies. CPAP CHIN STRAP, USED WITH CPAP DEVICE glucosam sul na/chondr galvan a na(GLUCOSAMINE-CHONDROITIN 3X 750 MG-600 MG TAB) Take 1 tablet twice daily. MAGNESIUM OXIDE 500 MG TAB Take 250 mg by mouth once daily. MELATONIN 3 MG TAB Take 10 mg by mouth. nightly cholecalciferol(VITAMIN D-3 1,000 UNIT CHEWABLE TAB) Take 2 tablets daily. methylsulfonylmethane(MSM 1,000 MG TAB) 1 tablet twice daily. vitamin b complex(B COMPLEX TAB) Take by mouth. VITAMIN E 400 UNIT CAP Take one(1) tablet daily. CALCIUM 600 + D(3) 600 MG-200 UNIT TAB Take one(1) tablet twice daily. MULTIVITAMIN TAB Take one(1) tablet daily. predniSONE (DELTASONE) 10 mg tablet Take 4 tabs daily for 3 days, then 2 tabs daily for 3 days, then 1 tab daily for 3 days with food. (Patient not taking: Reported on 07/20/2024) fluticasone (FLONASE) 50 mcg/actuation nasal spray Use 2 Sprays in each nostril once daily. (Patient not taking: Reported on 07/25/2024) No current facility-administered medications for this visit. Review of Systems Objective BP 112/67 Pulse 90 Temp 37.7 ?C (99.9 ?F) (Oral) Resp 16 Ht 170.2 (more content not included)... Normal [facility] C-REACTIVE PROTEINon 025 CRP [Mass/Vol] mg/dL [facility] - 0.9 mg/dL [facility] No Panel Informationon 07-21 Interpretation and review of laboratory results Normal [facility] RHEUMATOID FACTORon 07-22-19 25 [facility]oid factor [facility]n [facility] EDDIE BY IFA SCREENon 07-21-19 25 Nuclear Ab Ql (S) Negative Normal Negative [facility] Comment on above: Order Comment: Speci men Type: BLOOD SPECIMENOrdering Facility: [facility] Address: [address] [place] [address] Result Comment: Anti -nuclear antibody test is used as an aid in diagnosis of systemic autoimmune diseases. Where positive and clinically warranted, follow-up using disease-specific testing is recommended. Low positive titers are not uncommon with advanced age, certain chronic infections, and malignancies among others. Test methodology: Indirect fluorescence immunoassay (IFA) using HEp-2 cells. Performed By: #### A NAIFS ####[facility] LABCLIA [id number] [place] [address] [place] Bacteria Spec Resp Culton Bacteria identified Respiratory culture Nom (Unsp spec) ORGANISM ID: 1 Rare Escherichia coli Insignificant colony count. No further workup. ORGANISM ID: 3 Many normal respiratory kp GRAM STAIN: Few Mixed oral kp No Polymorphonuclear Leukocytes Abnormal [facility] Comment on above: Performed By: #### 3 2355-0, 77628-6 ####[facility] LABCLIA [id number] [place] [id number] [place] Bacteria Ur Culton 5 Bacteria identified Cx Nom (U) ORGANISM ID: 1 <10,000 CFU/ml Normal urogenital kp Normal [facility] Comment on above: Performed By: #### 6 30-4 ####[facility] LABCLIA [id number] [address] OF [facility] CNOVon 07-20-2024 CNOV Office Visit (INTMWS ) MARTINE LANDAVERDE ([id number]) 1955 F Date Time Provider Department 07/20/24 2:20 PM SANJAY YATES INTMWS During your visit today, we recorded the following information about you: Temperature Pulse Respiration Blood pressure 99.7 degrees 83/minute 16/minute 104/65 Weight 76 kg Sanjay Yates APRN.[facility] 07/21/2024 9:33 AM Signed Subjective Patient ID: Tristian is a 68 year old female who presents for Follow Up. HPI Presents today for recheck. Initially seen for flulike symptoms. Notes persistent headache fatigue and fever since last seen. She notes feeling somewhat improved but not back to baseline.She reports intermittent fevers / feeling over heated or 6 months or more. Fever: - Persistent fever with temperatures ranging from 99?F to 101?F. - Fevers have been lower in the past two days compared to previous days. - Denies cough. - Recent chest X-ray showed no abnormalities. - Recent lab work, including CBC and CMP, showed no significant abnormalities. - Recent urinalysis showed ketones present. - Recent Susana-Jay panel showed past infection but no current infection. - Denies exposure to birds or other pets in the home. Headache: - Describes headache as like a cap all around the head. - More severe and different from usual headaches; unable to ignore the pain. - Taking Tylenol and using an ice cap for relief. - History of multiple types of headaches following a fall down basement steps in 1993. - Currently taking diclofenac BID. Nasal Congestion: - Chronic nasal congestion, worse when lying down. - Using Flonase at night with minimal relief. - Denies rhinorrhea. - Wakes up with dry mouth despite using a CPAP mask. Family History: - Family history of rheumatoid arthritis in two cousins on mother's side. - Mother had osteoarthritis and heart disease. - Grandfather and great-grandfather had arthritis. Constitutional: (+) fever, (+) fatigue, (+) hot flashes Head: (+) headache Ears/Nose/Mouth/Throat: (+) congestion, (+) xerostomia Respiratory: (-) cough Gastrointestinal: (-) decreased appetite Genitourinary: (-) dysuria, (-) urinary frequency, (-) urinary urgency Musculoskeletal: (+) myalgia Objective BP 104/65 Pulse 83 Temp 37.6 ?C (99.7 ?F) Resp 16 Wt 76 kg (167 lb 8.8 oz) LMP 10/02/2007 BMI 26.64 kg/m? Physical Exam Vitals and nursing note reviewed. Constitutional: Appearance: Normal appearance. HENT: Head: Normocephalic and atraumatic. Nose: Mucosal edema present. No rhinorrhea. Mouth/Throat: Lips: Burna. Mouth: Mucous membranes are moist. Pharynx: Oropharynx is clear. Neck: Thyroid: No thyromegaly. Cardiovascular: Rate and Rhythm: Normal rate and regular rhythm. Heart sounds: Normal heart sounds. Pulmonary: Effort: Pulmonary effort is normal. Breath sounds: Normal breath sounds. Lymphadenopathy: Cervical: Right cervical: No superficial cervical adenopathy. Left cervical: No superficial cervical adenopathy. Neurological: Mental Status: She is alert. 1. Flu-like symptoms (R68.89) 2. Acute upper respiratory infection, unspecified (J06.9) 3. Fever, unspecified fever cause (R50.9) - Symptoms include headache, fever, and nasal congestion; no cough or sputum production. - Fever has decreased but persists, with temperatures ranging from 99.7?F to 101.4?F. - Headache is more severe than usual and not alleviated by Tylenol or ice cap. - Nasal congestion is chronic and worsens when supine; currently using Flonase at night. - Physical exam reveals swollen nasal passages. - Recent lab work includes a normal chest X-ray, CBC, and metabolic panel. - Susana-Jay virus panel indicates past infection but no current infection. - Urinalysis showed ketones, likely due to decreased oral intake. - Ordered repeat urinalysis. Would julio to complete labs and sputum culture now rther than wait to see if continues to improve the next few days. - Prescribed nasal spray, 1 puff in each nostril twice daily, sent to [facility]. - Discussed the possibility of rheumatology or infectious disease referral if fever persists. - Follow-up appointment scheduled with Dr. Tovar next week. 4. Family history of rheumatoid arthritis (Z82.61) - Family history includes two cousins with rheumatoid arthritis. - Discussed the potential for rheumatology referral if symptoms persist. Other orders Ipratropium [place] (ATROVENT) 21 mcg (0.03 %) nasal spray; Use 2 sprays in the nose every 12 hours. as needed for nasal congestion Medical Decision Making: Problems: Low: Acute, uncomplicated illness or injury Data: Unique test(s) ordered: 3+ Risk: Moderate: Drug management Medical Decision Making Level: 4 - Moderate Sanjay Yates APRN.[employer] 07/20/2024 3:04 PM Signed Your urine sample will be collected today in the clinic for (more content not included)... Normal [facility] CRP [Mass/Vol] mg/L Normal <0.9 [facility] Comment on above: Order Comment: Speci men Type: BLOOD SPECIMENOrdering Facility: [facility] Address: [address] [place] [address] Performed By: #### 1 988-5, 41405-3 ####[facility] LABCLIA [id number] [place] [address] [place] ESR Westergren method (Bld) [Velocity]on 07-20-2024 ESR (Bld) [Velocity] 5 mm/h [facility] Interpretation and review of laboratory results Normal [facility] ESR (Bld) [Velocity] 5 mm/h Normal 0-20 [facility] Comment on above: Order Comment: Speci men Type: BLOOD SPECIMENOrdering Facility: [facility] Address: [address] [place] [address] Performed By: #### 4 537-7 ####[facility] LABIA [id number] [place] [address] [place] Microorganism Spec Culton Microorganism identified Cx Nom (Unsp spec) CULTURE, FUNGAL: No Fungus isolated after 28 days FUNGAL SMEAR: No fungus seen Normal [facility] Comment on above: Performed By: #### 3 2355-0, 98355-2 ####[facility] LABIA [id number] [place] [address] [place] Rheumatoid fact SerPl-aCncon 07-20-2024 Rheumatoid factor Qn [IU]/mL Normal <16 [facility] Comment on above: Order Comment: Speci men Type: BLOOD SPECIMENOrdering Facility: [facility] Address: [address] [place] [address] Performed By: #### 1 988-5, 10328-3 ####[facility] LABIA [id number] [place] [address] [place] UA DIP, URINE (POC)on 2024 BILIRUBIN UA (POCT) Negative Negative [facility] CLARITY UA (POCT) Clear [facility] COLOR UA (POCT) Yellow [facility] GLUCOSE UA (POCT) Negative Negative mg/dL [facility] Hemoglobin Ql (U) Trace-intact Abnormal Negative [facility] Interpretation and review of laboratory results Abnormal [facility] KETONE UA (POCT) Negative Negative mg/dL [facility] LEUKOCYTES UA (POCT) Negative Negative [facility] NITRITE UA (POCT) Negative Negative [facility] PH UA (POCT) 7 4.5 - 8.0 [facility] Protein Ql (U) Negative Negative mg/dL [facility] SPECIFIC GRAVITY UA (POCT) <=1.005 Abnormal 1.005 - 1.030 [facility] UROBILINOGEN UA (POCT) 0.2 Normal E.U./dL [facility] Location:[address], [place], [place], [address] [place] [address] POINT OF CARE [facility] CBC W Auto Differential pane l (Bld)on 07-19-2024 Basophils (Bld) [#/Vol] 10*3/uL Normal <0.11 [facility] Comment on above: Order Comment: Speci men Type: BLOOD SPECIMENOrdering Facility: [facility] Address: [address] [place] [address] Performed By: #### 5 7021-8 ####[facility] [id number] [place] [address] [place] Basophils/100 WBC (Bld) 0.2 % Normal [facility] Comment on above: Order Comment: Speci men Type: BLOOD SPECIMENOrdering Facility: [facility] Address: [address] [place] [address] Performed By: #### 5 7021-8 ####[facility] [id number] [place] [address] [place] Differential cell count method Nom (Bld) Auto Normal [facility] Comment on above: Order Comment: Speci men Type: BLOOD SPECIMENOrdering Facility: [facility] Address: [address] [place] [address] Performed By: #### 5 7021-8 ####[facility] [id number] [place] [address] [place] Eosinophils (Bld) [#/Vol] 0.06 10*3/uL Normal <0.46 [facility] Comment on above: Order Comment: Speci men Type: BLOOD SPECIMENOrdering Facility: [facility] Address: [address] [place] [address] Performed By: #### 5 7021-8 ####[facility] [id number] [place] [address] [place] Eosinophils/100 WBC (Bld) 0.7 % Normal [facility] Comment on above: Order Comment: Speci men Type: BLOOD SPECIMENOrdering Facility: [facility] Address: [address] [place] [address] Performed By: #### 5 7021-8 ####[facility] NICOSergeyNCGABBY [id number] [place] [address] [place] Erythrocyte distribution width (RBC) [Ratio] 14.3 % Normal 11.5-15.0 [facility] Comment on above: Order Comment: Speci men Type: BLOOD SPECIMENOrdering Facility: [facility] Address: [address] [place] [address] Performed By: #### 5 7021-8 ####[facility] NICODENVERJETA [id number] [place] [address] [place] Hematocrit (Bld) [Volume fraction] 38.9 % Normal 36.0-46.0 [facility] Comment on above: Order Comment: Speci men Type: BLOOD SPECIMENOrdering Facility: [facility] Address: [address] [place] [address] Performed By: #### 5 7021-8 ####[facility] NICODENVERMARTHALIA [id number] [place] [address] [place] Hemoglobin (Bld) [Mass/Vol] 11.8 g/dL Normal 11.5-15.5 [facility] Comment on above: Order Comment: Speci men Type: BLOOD SPECIMENOrdering Facility: [facility] Address: [address] [place] [address] Performed By: #### 5 7021-8 ####[facility] MILLTOWNCLIA [id number] [place] [address] [place] Immature granulocytes (Bld) [#/Vol] 0.04 10*3/uL Normal <0.10 [facility] Comment on above: Order Comment: Speci men Type: BLOOD SPECIMENOrdering Facility: [facility] Address: [address] [place] [address] Performed By: #### 5 7021-8 ####[facility]USLIA [id number] [place] [address] [place] Immature granulocytes/100 WBC (Bld) 0.5 % Normal [facility] Comment on above: Order Comment: Speci men Type: BLOOD SPECIMENOrdering Facility: [facility] Address: [address] [place] [address] Performed By: #### 5 7021-8 ####[facility]USLIA [id number] [place] [address] [place] Lymphocytes (Bld) [#/Vol] 2.56 10*3/uL Normal 1.00-4.00 [facility] Comment on above: Order Comment: Speci men Type: BLOOD SPECIMENOrdering Facility: [facility] Address: [address] [place] [address] Performed By: #### 5 7021-8 ####[facility]IALWNCLIA [id number] [place] [address] [place] Lymphocytes/100 WBC (Bld) 29.9 % Normal [facility] Comment on above: Order Comment: Speci men Type: BLOOD SPECIMENOrdering Facility: [facility] Address: [address] [place] [address] Performed By: #### 5 7021-8 ####[facility] CAMPUSLIA [id number] [place] [address] [place] MCH (RBC) [Entitic mass] 23.4 pg Low 26.0-34.0 [facility] Comment on above: Order Comment: Speci men Type: BLOOD SPECIMENOrdering Facility: [facility] Address: [address] [place] [address] Performed By: #### 5 7021-8 ####[facility] H[facility]PITALNCOGD[facility] [id number] [place] [address] [place] MCHC (RBC) [Mass/Vol] 30.3 g/dL Low 30.5-36.0 [facility] Comment on above: Order Comment: Speci men Type: BLOOD SPECIMENOrdering Facility: [facility] Address: [address] [place] [address] Performed By: #### 5 7021-8 ####[facility] HOSPITALNCOGD[facility] [id number] [place] [address] [place] MCV (RBC) [Entitic vol] 77.0 fL Low 80.0-100.0 [facility] Comment on above: Order Comment: Speci men Type: BLOOD SPECIMENOrdering Facility: [facility] Address: [address] [place] [address] Performed By: #### 5 7021-8 ####[facility] [id number] [place] [address] [place] Monocytes (Bld) [#/Vol] 0.64 10*3/uL Normal <0.87 [facility] Comment on above: Order Comment: Speci men Type: BLOOD SPECIMENOrdering Facility: [facility] Address: [address] [place] [address] Performed By: #### 5 7021-8 ####[facility] [id number] [place] [address] [place] Monocytes/100 WBC (Bld) 7.5 % Normal [facility] Comment on above: Order Comment: Speci men Type: BLOOD SPECIMENOrdering Facility: [facility] Address: [address] [place] [address] Performed By: #### 5 7021-8 ####[facility] [id number] [place] [address] [place] Neutrophils (Bld) [#/Vol] 5.24 10*3/uL Normal 1.45-7.50 [facility] Comment on above: Order Comment: Speci men Type: BLOOD SPECIMENOrdering Facility: [facility] Address: [address] [place] [address] Performed By: #### 5 7021-8 ####[facility] [id number] [place] [address] [place] Neutrophils/100 WBC (Bld) 61.2 % Normal [facility] Comment on above: Order Comment: Speci men Type: BLOOD SPECIMENOrdering Facility: [facility] Address: [address] [place] [address] Performed By: #### 5 7021-8 ####[facility] [id number] [place] [address] [place] Nucleated RBC (Bld) [#/Vol] 10*3/uL Normal <0.01 [facility] Comment on above: Order Comment: Speci men Type: BLOOD SPECIMENOrdering Facility: [facility] Address: [address] [place] [address] Performed By: #### 5 7021-8 ####[facility]AMPUSLIA [id number] [place] [address] [place] Nucleated RBC/100 WBC (Bld) [Ratio] 0.0 /100 WBC Normal [facility] Comment on above: Order Comment: Speci men Type: BLOOD SPECIMENOrdering Facility: [facility] Address: [address] [place] [address] Performed By: #### 5 7021-8 ####[facility] MILLTOWNCLIA [id number] [place] [address] [place] Platelet mean volume (Bld) [Entitic vol] 8.4 fL Low 9.0-12.7 [facility] Comment on above: Order Comment: Speci men Type: BLOOD SPECIMENOrdering Facility: [facility] Address: [address] [place] [address] Performed By: #### 5 7021-8 ####[facility] NICOCANDACEA [id number] [place] [address] [place] Platelets (Bld) [#/Vol] 378 10*3/uL Normal 150-400 [facility] Comment on above: Order Comment: Speci men Type: BLOOD SPECIMENOrdering Facility: [facility] Address: [address] [place] [address] Performed By: #### 5 7021-8 ####[facility] HOSPITALJETA [id number] [place] [address] [place] RBC (Bld) [#/Vol] 5.05 10*6/uL Normal 3.90-5.20 [facility] Comment on above: Order Comment: Speci men Type: BLOOD SPECIMENOrdering Facility: [facility] Address: [address] [place] [address] Performed By: #### 5 7021-8 ####[facility] NICODENVERMARTHALIA [id number] [place] [address] [place] WBC (Bld) [#/Vol] 8.56 10*3/uL Normal 3.70-11.00 [facility] Comment on above: Order Comment: Speci men Type: BLOOD SPECIMENOrdering Facility: [facility] Address: [address] [place] [address] Performed By: #### 5 7021-8 ####[facility] NICODENVERMARTHALIA [id number] [place] [address] [place] Comprehensive metabolic 2000 panelon 07-19-2024 Albumin [Mass/Vol] 4.3 g/dL Normal 3.9-4.9 [facility] Comment on above: Order Comment: Speci men Type: BLOOD SPECIMENOrdering Facility: [facility] Address: [address] [place] [address] Performed By: #### 2 4323-8 ####[facility]IALWNCLIA [id number] [place] [address] [place] ALP [Catalytic activity/Vol] 79 U/L Normal 34-123 [facility] Comment on above: Order Comment: Speci men Type: BLOOD SPECIMENOrdering Facility: [facility] Address: [address] [place] [address] Performed By: #### 2 4323-8 ####[facility] HOSPITALNCLIA [id number] [address] [place] ALT [Catalytic activity/Vol] 34 U/L Normal 7-38 [facility] Comment on above: Order Comment: Speci men Type: BLOOD SPECIMENOrdering Facility: [facility] Address: [address] [place] [address] Performed By: #### 2 4323-8 ####[facility] HOSPITALNCLIA [id number] [place] [address] [place] Anion gap [Moles/Vol] 7 mmol/L Low 8-15 [facility] Comment on above: Order Comment: Speci men Type: BLOOD SPECIMENOrdering Facility: [facility] Address: [address] [place] [address] Performed By: #### 2 4323-8 ####[facility] MILLTOWNCLIA [id number] [place] [address] [place] AST [Catalytic activity/Vol] 15 U/L Normal 13-35 [facility] Comment on above: Order Comment: Speci men Type: BLOOD SPECIMENOrdering Facility: [facility] Address: [address] [place] [address] Performed By: #### 2 4323-8 ####[facility] NICOSergeyNCLINDAA [id number] [place] [address] [place] Bilirubin [Mass/Vol] 0.4 mg/dL Normal 0.2-1.3 [facility] Comment on above: Order Comment: Speci men Type: BLOOD SPECIMENOrdering Facility: [facility] Address: [address] [place] [address] Performed By: #### 2 4323-8 ####[facility] HOSPITALNCLINDAA [id number] [place] [address] [place] Calcium [Mass/Vol] 9.5 mg/dL Normal 8.5-10.2 [facility] Comment on above: Order Comment: Speci men Type: BLOOD SPECIMENOrdering Facility: [facility] Address: [address] [place] [address] Performed By: #### 2 4323-8 ####[facility] CAMPUSLINDAA [id number] [place] [address] [place] Chloride [Moles/Vol] 104 mmol/L Normal 98-107 [facility] Comment on above: Order Comment: Speci men Type: BLOOD SPECIMENOrdering Facility: [facility] Address: [address] [place] [address] Performed By: #### 2 4323-8 ####[facility] HOSPITALNCLIA [id number] [place] [address] [place] CO2 [Moles/Vol] 29 mmol/L Normal 22-30 [facility] Comment on above: Order Comment: Speci men Type: BLOOD SPECIMENOrdering Facility: [facility] Address: [address] [place] [address] Performed By: #### 2 4323-8 ####[facility] HOSPITALNCLIA [id number] [place] [address] [place] Creatinine [Mass/Vol] 0.93 mg/dL Normal 0.58-0.96 [facility] Comment on above: Order Comment: Yonny franks Type: BLOOD SPECIMENOrdering Facility: [facility] Address: [address] [place] [address] Performed By: #### 2 4323-8 ####[facility] [id number] [place] [address] [place] Creatinine and Glomerular filtration rate.predicted panel (S/P/Bld) 67 mL/min/1.73m??? Normal >=60 [facility] Comment on above: Order Comment: Yonny franks Type: BLOOD SPECIMENOrdering Facility: [facility] Address: [address] [place] [address] Result Comment: Lani mated Glomerular Filtration Rate (eGFR) is calculated using the 2020 CKD-EPI creatinine equation. This equation utilizes serum creatinine, sex, and age as parameters. The creatinine assay has traceable calibration to isotope dilution-mass spectrometry. Refer to KDIGO guidelines for clinical interpretation. In patients with unstable renal function, e.g. those with acute kidney injury, the eGFR may not accurately reflect actual GFR. Performed By: #### 2 4323-8 ####[facility] [id number] [place] [address] [place] Glucose [Mass/Vol] 98 mg/dL Normal 74-99 [facility] Comment on above: Order Comment: Yonny franks Type: BLOOD SPECIMENOrdering Facility: [facility] Address: [address] [place] [address] Result Comment: The [place] [employer] (ADA) provides guidance for cutoff values for fasting glucose and random glucose. The ADA defines fasting as no caloric intake for at least 8 hours. Fasting plasma glucose results between 100 to 125 mg/dL indicate increased risk for diabetes (prediabetes). Fasting plasma glucose results greater than or equal to 126 mg/dL meet the criteria for diagnosis of diabetes. In the absence of unequivocal hyperglycemia, results should be confirmed by repeat testing. In a patient with classic symptoms of hyperglycemia or hyperglycemic crisis, random plasma glucose results greater than or equal to 200 mg/dL meet the criteria for diagnosis of diabetes. Reference: Standards of Medical Care in Diabetes 2016, [place] [employer]. Diabetes Care. 2016.39(Suppl 1). Performed By: #### 2 4323-8 ####[facility] [id number] [place] [address] [place] Potassium [Moles/Vol] 3.7 mmol/L Normal 3.7-5.1 [facility] Comment on above: Order Comment: Speci men Type: BLOOD SPECIMENOrdering Facility: [facility] Address: [address] [place] [address] Performed By: #### 2 4323-8 ####[facility] [id number] [place] [address] [place] Protein [Mass/Vol] 6.6 g/dL Normal 6.3-8.0 [facility] Comment on above: Order Comment: Speci men Type: BLOOD SPECIMENOrdering Facility: [facility] Address: [address] [place] [address] Performed By: #### 2 4323-8 ####[facility] [id number] [place] [address] [place] Sodium [Moles/Vol] 140 mmol/L Normal 136-144 [facility] Comment on above: Order Comment: Speci men Type: BLOOD SPECIMENOrdering Facility: [facility] Address: [address] [place] [address] Performed By: #### 2 4323-8 ####[facility] [id number] [place] [address] [place] Urea nitrogen [Mass/Vol] 18 mg/dL Normal 7-21 [facility] Comment on above: Order Comment: Speci men Type: BLOOD SPECIMENOrdering Facility: [facility] Address: [address] [place] [address] Performed By: #### 2 4323-8 ####[facility] [id number] [place] [address] [place] SUSANA JAY PANELon 07-19- 025 EBV NA AB, QUAL Positive Abnormal Negative [facility] Comment on above: Order Comment: Speci men Type: BLOOD SPECIMENOrdering Facility: [facility] Address: [address] [place] [address] Performed By: #### E BVPNL ####[facility] LABCLIA [id number] [place] [address] [place] EBV VCA IGG, QUAL Positive Abnormal Negative [facility] Comment on above: Order Comment: Speci men Type: BLOOD SPECIMENOrdering Facility: [facility] Address: [address] [place] [address] Performed By: #### E BVPNL ####[facility] LABCLIA [id number] [place] [address] [place] EBV VCA IGM, QUAL Negative Normal Negative [facility] Comment on above: Order Comment: Speci men Type: BLOOD SPECIMENOrdering Facility: [facility] Address: [address] [place] [address] Performed By: #### E BVPNL ####[facility] LABCLIA [id number] [place] [address] [place] INTERPRETATION (EBVPNL) Past Infection. EBV panel interpretation is a general guide that is meant to capture most, but not all, of the possible clinical scenarios. Non-specific reactivities are not uncommon especially with equivocal results. Should the overall interpretation not be consistent with the clinical picture, please contact the biomedical equipment tech of the test for assistance. Normal [facility] Comment on above: Order Comment: Speci men Type: BLOOD SPECIMENOrdering Facility: [facility] Address: [address] [place] [address] Performed By: #### E BVPNL ####[facility] LABCLIA [id number] [place] [address] [place] Urinalysis complete panel (U )on 07-19-2024 Bacteria LM.HPF (Urine sed) [#/Area] Negative Normal Negative [facility] Comment on above: Order Comment: Speci men Type: URINE SPECIMENOrdering Facility: [facility] Address: [address] [place] [address] Performed By: #### 2 4356-8 ####[facility] LABCLIA [id number] [place] [address] [place] Bilirubin Ql (U) Negative Normal Negative [facility] Comment on above: Order Comment: Speci men Type: URINE SPECIMENOrdering Facility: [facility] Address: [address] [place] [address] Performed By: #### 2 4356-8 ####[facility] LABCLIA [id number] [place] [address] [place] Clarity (Unsp spec) Clear Normal Clear [facility] Comment on above: Order Comment: Speci men Type: URINE SPECIMENOrdering Facility: [facility] Address: [address] [place] [address] Performed By: #### 2 4356-8 ####[facility] LABCLIA [id number] [address] STATES OF [facility] Color (U) Yellow Normal Yellow [facility] Comment on above: Order Comment: Speci men Type: URINE SPECIMENOrdering Facility: [facility] Address: [address] [place] [address] Performed By: #### 2 4356-8 ####[facility] LABCLIA [id number] [place] [address] [place] Epithelial cells LM.HPF (Urine sed) [#/Area] None Seen Normal [facility] Comment on above: Order Comment: Speci men Type: URINE SPECIMENOrdering Facility: [facility] Address: [address] [place] [address] Performed By: #### 2 4356-8 ####[facility] LABCLIA [id number] [address] [place] [address] [place] Glucose Test strip (U) [Mass/Vol] Negative Normal Negative [facility] Comment on above: Order Comment: Speci men Type: URINE SPECIMENOrdering Facility: [facility] Address: [address] [place] [address] Performed By: #### 2 4356-8 ####[facility] LABCLIA [id number] [address], [facility] [place] Hemoglobin Ql (U) Negative Normal Negative [facility] Comment on above: Order Comment: Speci men Type: URINE SPECIMENOrdering Facility: [facility] Address: [address] [place] [address] Performed By: #### 2 4356-8 ####[facility] LABCLIA [id number] [address], [facility] [place] Hyaline casts (Urine sed) [#/Area] 0 /[LPF] Normal 0 /LPF [facility] Comment on above: Order Comment: Speci men Type: URINE SPECIMENOrdering Facility: [facility] Address: [address] [place] [address] Performed By: #### 2 4356-8 ####[facility] LABCLIA [id number] [address] [place] [address] [place] Ketones Ql (U) Trace Abnormal Negative [facility] Comment on above: Order Comment: Speci men Type: URINE SPECIMENOrdering Facility: [facility] Address: [address] [place], [place] [address] Performed By: #### 2 4356-8 ####[facility] LABCLIA [id number] [place] [id number] [place] Leukocyte esterase Test strip Ql (U) Trace Abnormal Negative [facility] Comment on above: Order Comment: Speci men Type: URINE SPECIMENOrdering Facility: [facility] Address: [address] [place] [address] Performed By: #### 2 4356-8 ####[facility] LABCLIA [id number] [place] [address] [place] Nitrite Ql (U) Negative Normal Negative [facility] Comment on above: Order Comment: Speci men Type: URINE SPECIMENOrdering Facility: [facility] Address: [address] [place] [address] Performed By: #### 2 4356-8 ####[facility] LABCLIA [id number] [place] [address] [place] pH (U) 6.0 [pH] Normal <8.5 [facility] Comment on above: Order Comment: Speci men Type: URINE SPECIMENOrdering Facility: [facility] Address: [address] [place] [address] Performed By: #### 2 4356-8 ####[facility] LABCLIA [id number] [place] [address] [place] Protein (U) [Mass/Vol] Trace Abnormal Negative [facility] Comment on above: Order Comment: Speci men Type: URINE SPECIMENOrdering Facility: [facility] Address: [address] [place] [address] Performed By: #### 2 4356-8 ####[facility] LABCLIA [id number] [place] [address] [place] RBC LM.HPF (Urine sed) [#/Area] 3-5 /HPF Abnormal 0-2 /HPF [facility] Comment on above: Order Comment: Speci men Type: URINE SPECIMENOrdering Facility: [facility] Address: [address] [place] [address] Performed By: #### 2 4356-8 ####[facility] [id number] [place] [address] [place] Specific gravity (U) [Rel density] 1.025 Normal 1.005-1.030 [facility] Comment on above: Order Comment: Speci men Type: URINE SPECIMENOrdering Facility: [facility] Address: [address] [place] [address] Performed By: #### 2 4356-8 ####[facility] [id number] [place] [address] [place] Urobilinogen Ql (U) 0.2 EU/dL Normal 0.2-1.0 EU/dL [facility] Comment on above: Order Comment: Speci men Type: URINE SPECIMENOrdering Facility: [facility] Address: [address] [place] [address] Performed By: #### 2 4356-8 ####[facility] [id number] [place] [address] [place] WBC LM.HPF (Urine sed) [#/Area] 0-5 /HPF Normal 0-5 /HPF [facility] Comment on above: Order Comment: Speci men Type: URINE SPECIMENOrdering Facility: [facility] Address: [address] [place] [address] Performed By: #### 2 4356-8 ####[facility] [id number] [place] [address] [place] XR CHEST 2V FRONTAL/LATon XR CHEST 2V FRONTAL/LAT * * *Final Report* * * DATE OF EXAM: Jul 19 2024 11:39AM [id number] - XR CHEST 2V FRONTAL/LAT / PROCEDURE REASON: multiple diagnoses * * * * Physician Interpretation * * * * EXAMINATION: CHEST RADIOGRAPH (2 VIEW FRONTAL and LATERAL) CLINICAL HISTORY: Flu-like symptoms Acute upper respiratory infection, unspecified MQ: XC2_6 EXAM DATE/TIME: 07/19/2024 11:39 AM COMPARISON: No relevant prior studies available. RESULT: Lines, tubes, and devices: Stimulator device overlies the midline the tip overlying T7. Lungs and pleura: No consolidation. No lung mass. No pleural effusion. No pneumothorax. Cardiomediastinal silhouette: Normal cardiomediastinal silhouette. Bones and soft tissues: Stable degenerative changes of the mid thoracic spine. IMPRESSION: No acute radiographic abnormality. [employer] Driver: ELLA Transcribe Date/Time: Jul 19 2024 11:40A Dictated by : ELIZABETH MELLO MD This examination was interpreted and the report reviewed and electronically signed by: ELIZABETH MELLO MD on Jul 19 2024 11:41AM EST [id number] Normal [facility] XR Chest PA and Lateralon Radiology Study observation (narrative) [facility] IMPRESSION: No acute radiographic abnormality. [employer] Driver: [facility] Transcribe Date/Time: Jul 19 2024 11:40A Dictated by : ELIZABETH MELLO MD This examination was interpreted and the report reviewed and electronically signed by: ELIZABETH MELLO MD on Jul 19 2024 11:41AM EST DIVISION OF RADIOLOGY * * *Final Report* * * DATE OF EXAM: Jul 19 2024 11:39AM [id number] - XR CHEST 2V FRONTAL/LAT / PROCEDURE REASON: multiple diagnoses * * * * Physician Interpretation * * * * EXAMINATION: CHEST RADIOGRAPH (2 VIEW FRONTAL & LATERAL) CLINICAL HISTORY: Flu-like symptoms Acute upper respiratory infection, unspecified MQ: XC2_6 EXAM DATE/TIME: 07/19/2024 11:39 AM COMPARISON: No relevant prior studies available. RESULT: Lines, tubes, and devices: Stimulator device overlies the midline the tip overlying T7. Lungs and pleura: No consolidation. No lung mass. No pleural effusion. No pneumothorax. Cardiomediastinal silhouette: Normal cardiomediastinal silhouette. Bones and soft tissues: Stable degenerative changes of the mid thoracic spine. DIVISION OF RADIOLOGY [facility] * * *Final Report* * * DATE OF EXAM: Jul 19 2024 11:39AM [id number] - XR CHEST 2V FRONTAL/LAT / PROCEDURE REASON: multiple diagnoses * * * * Physician Interpretation * * * * EXAMINATION: CHEST RADIOGRAPH (2 VIEW FRONTAL & LATERAL) CLINICAL HISTORY: Flu-like symptoms Acute upper respiratory infection, unspecified MQ: XC2_6 EXAM DATE/TIME: 07/19/2024 11:39 AM COMPARISON: No relevant prior studies available. RESULT: Lines, tubes, and devices: Stimulator device overlies the midline the tip overlying T7. Lungs and pleura: No consolidation. No lung mass. No pleural effusion. No pneumothorax. Cardiomediastinal silhouette: Normal cardiomediastinal silhouette. Bones and soft tissues: Stable degenerative changes of the mid thoracic spine. IMPRESSION IMPRESSION: No acute radiographic abnormality. 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 Transcribe Date/Time: Jul 19 2024 11:40A Dictated by : ELIZABETH MELLO MD This examination was interpreted and the report reviewed and electronically signed by: ELIZABETH MELLO MD on Jul 19 2024 11:41AM EST [facility] XR Chest PA and LateralOrder ed By: [facility] Provider on 07-19-2024 [facility] 12 Lead EKG performed by [facility] on 07-12-2024 12 Lead EKG performed by [facility] [address] [place] [address] 12 Lead EKG performed by [facility] 07/12/24 1543 MR#: [id number] Acct: [id number] Name: MARTINE LANDAVERDE Rep #: [id number] : 1955 68 From: Nahum Peacock MD Attending Dr: Dr. Nahum Peacock MD Status: DEP A MB Ordering Dr: Nahum Peacock MD Date: 07/12/24 [place] [facility] [place] F C Admitted: [facility]/12 Lead EKG performed by [facility] ECG Report Interpretation Si nus Rhythm -Prominent R(V1) and left axis -nonspecific -Seen with pulmonary disease -possible anterior fascicular block. - Nonspecific T-abnormality. ABNORMAL Electronically signed on 07/18/2024 at 14:53 by Nahum Peacock [employer] Version [id number] 07/18/24 1454 Date Nahum Peacock MD CC: Dr. Eriberto Tovar MD Date Dictated: 07/12/24 1543 Date Transcribed: 07/12/241542 [employer] Driver: [place] Signed Normal [facility] Cardiology Visit Reporton Cardiology Visit Report [facility] [address] [place] [address] OFFICE VISIT Date of Service: 07/12/24 MR#: [id number] Acct: [id number] Name: MARTINE LANDAVERDE Rep #: [id number] : 1955 Provider: Dr. Nahum Peacock MD Age/Sex: 68/F Location: [facility] Status: Signed HPI HPI History of Present Illness Details: 68-year-old lady with a previous history of hypertension who presents for preoperative cardiac evaluation. She is scheduled to undergo robotic assisted right total knee arthroplasty. An EKG was done as part of her preoperative evaluation and it was noted to be abnormal. It demonstrated a leftward axis. A repeat EKG demonstrated evidence of possible right ventricular hypertrophy. She therefore went on to have an echocardiogram which demonstrated preserved ejection fraction normal right ventricular size and function structurally normal valves. She has no smoking history and denies any chest pain or paroxysmal nocturnal dyspnea pedal edema no neck arm or jaw discomfort suggest angina. Her EKG done here in our office today does demonstrate normal sinus rhythm with prominent R waves in lead V1. Her physical exam is otherwise unremarkable. Intake Vital Signs 07/04/24 16:10 07/12/24 15:41 Height 5 ft 7 in 5 ft 7 in Weight: 168 lb BMI 26.3 BP 117/77 Blood Pressure Location Lt brachial Position Sitting Respiration 16 Pulse 84 Pulse Source Monitor Intake Visit Reasons: SOB/ABN EKG (MAGDA) Mesh Man Required: No Accompanied by: Significant Other Is patient in pain?: No Allergies Sulfa (Sulfonamide Antibiotics) Allergy (Verified 07/12/24 15:46) Hives Medications ???Medication ???Instructions ???Recorded ???Confirmed ???Type diclofenac sodium 100 mg 75 mg PO BID 11/19/16 07/12/24 His tory tablet,extended release 24 hr venlafaxine 150 mg tablet,extended 150 mg PO BID 11/19/16 07/12/24 History release 24 hr antiarthritic combination no.2 900 900 mg PO BID 12/02/20 07/12/24 History mg tablet (glucosamine-chondroitin) cholecalciferol (vitamin D3) 50 50 mcg PO DAILY 12/02/20 07/12/24 History mcg (2,000 unit) capsule ferrous gluconate 324 mg (37.5 mg 324 mg PO DAILY 12/02/20 07/12/24 History iron) tablet fluticasone propionate 50 1 spray intranasal DAILY 12/02/20 07/12/24 History mcg/actuation nasal spray,suspension (Flonase Allergy Relief) folic acid 400 mcg tablet 0.4 mg PO DAILY 12/02/20 07/12/24 History gabapentin 400 mg capsule 400 mg PO 4X/DAY 12/02/20 07/12/24 History magnesium citrate 100 mg capsule 100 mg PO DAILY 12/02/20 07/12/24 History melatonin 10 mg capsule 10 mg PO QHS PRN PRN sleep 1 07/12/24 History tramadol 50 mg tablet 50 mg PO BID PRN PRN pain 12/02/20 07/12/24 History vitamin E mixed 400 unit capsule 400 unit PO DAILY 12/02/20 5 History lisinopril 10 mg tablet 10 mg PO DAILY 08/13/21 07/12/24 H istory calcium carbonate 600 mg PO QHS 09/24/23 07/12/24 Hi story clobetasol 0.05 % topical ointment 1 applic topical MOWEFR 09/24/23 07/12/24 History rosuvastatin 5 mg tablet 5 mg PO QHS 09/24/23 07/12/24 Hist ory turmeric 400 mg capsule 500 mg PO DAILY 09/24/23 07/12/24 History ascorbic acid (vitamin C) 1,000 mg 1,000 mg PO DAILY 06/21/2407/12 History tablet,extended release (C Complex) aspirin 81 mg capsule 81 mg PO DAILY 06/21/24 07/12/24 H istory Have you fallen in the past year?: No PFSH Medical History Encounter for pre-operative cardiovascular clearance Abnormal EKG SOB (shortness of breath) Other hammer toe(s) (acquired), left foot Degenerative spondylolisthesis Left knee DJD Right knee DJD Fibromyalgia CFIDS (chronic fatigue and immune dysfunction syndrome) MRSA (methicillin resistant Staphylococcus aureus) colonization Low iron History of IBS Depression Anxiety Arthritis High cholesterol Back pain Injury of back Injury of head and neck CPAP (continuous positive airway pressure) dependence Hypertension Surgical History S/P cervical spinal fusion History of toe surgery Hx of left cataract extraction Hx of right cataract extraction Hx of spinal surgery Hx of thumb surgery History of bunionectomy of right great toe Hx of ovarian cystectomy Hx of cervical spine surgery Hx of hand surgery History of bunionectomy of left great toe History of bunionectomy of left great toe Family History Mother Heart disease Social History household members: spouse Smoking Status: Never smoker ROS Const Const: Positive for fat (more content not included)... [facility] ) MARTINE LANDAVERDE ([id number]) 1955 F Date Time Provider Department 07/10/24 12:00 PM SANJAY YATES INTMWS During your visit today, we recorded the following information about you: Temperature Pulse Blood pressure Weight 97.5 degrees 82/minute 121/72 76.9 kg Sanjay Yates APRN.[facility] 07/10/2024 1:04 PM Signed SUBJECTIVE Martine Landaverde is a 68 year old female who presents with 4 days of symptoms that are stable. Symptoms include: Fever (>=100.4F): Yes 100.3 F or Chills: Yes Cough: No Shortness of breath: No or Difficulty breathing: No Fatigue: Yes Muscle aches: Yes Headache: Yes New loss of smell or taste: No Sore throat: No Nasal congestion: No or Rhinorrhea: No Nausea: No or Vomiting: No Diarrhea: No OTC meds/remedies that patient has tried: acetaminophen. High risk category assessment Age > 60 years old Exposures: Sick contacts? No Family or close contacts with confirmed/probable COVID-19 in last 14 days? No She reports that she has never smoked. She has never used smokeless tobacco. OBJECTIVE PHYSICAL EXAM: BP 121/72 Pulse 82 Temp 36.4 ?C (97.5 ?F) (Temporal) Wt 76.9 kg (169 lb 8.5 oz) LMP 10/02/2007 SpO2 98% BMI 26.95 kg/m? General appearance: tired/ill appearing, alert, cooperative, pleasant, in no acute distress Head: Normocephalic Eyes: conjunctiva/corneas normal Ears: R TM - clear with good landmarks, nl light reflex, L TM - clear with good landmarks, nl light reflex Nose: clear rhinorrhea Oropharynx: moist without lesions, mild erythema to GPA Neck: supple and small, benign anterior cervical nodes bilaterally Heart: regular rate and rhythm, without murmur Lungs: clear to auscultation, without rales or wheeze, good air exchange ASSESSMENT/PLAN (R68.89) Flu-like symptoms (primary encounter diagnosis) (J06.9) Acute upper respiratory infection, unspecified (I10) Primary hypertension ASSESSMENT/PLAN: 1. Flu-like symptoms - ICD9: 780.99, ICD10: R68.89 (primary diagnosis) - COVID AND INFLUENZA A/B AND RSV PCR, ROUTINE - PREDNISONE 10 MG TABLET 2. Acute upper respiratory infection, unspecified - ICD9: 465.9, ICD10: J06.9 - Symptomatic treatment with prn analgesia - Supportive care with fluids and rest - Follow up in 3-5 days if symptoms persist or sooner if worsening of symptoms - COVID AND INFLUENZA A/B AND RSV PCR, ROUTINE - PREDNISONE 10 MG TABLET 3. Primary hypertension - ICD9: 401.9, ICD10: I10 - Controlled - Continue current medications - Encouraged sodium restriction, DASH or Mediterranean diet - Recommend regular aerobic exercise - LISINOPRIL 10 MG TABLET Sanjay Yates APRN.OPERATOR HELPER - Discussed symptom monitoring and supportive care - Red flag symptoms requiring follow up discussed Nirmatrelvir/Ritonavir (Paxlovid) Considerations Paxlovid is FDA-approved for treatment of mild to moderate COVID-19 in adults who are at high risk for progression to severe COVID-19. Consider use of Paxlovid in the following examples of high risk patients (list is not all inclusive): Age over 65 years Cardiovascular and cerebrovascular disease Chronic disease state (kidney, liver, lung) Diabetes (type 1 or type 2) Immunocompromised state (cancer, solid organ or blood stem cell transplant, HIV) Obesity Paxlovid warnings include serious drug interactions (co-administration with drugs highly dependent on CYP3A for clearance), hypersensitivity reactions, hepatotoxicity, and risk of HIV-1 resistance development. Sanjay Yates APRN.OPERATOR HELPER July 10, 2024 12:42 PM Medical Decision Making: Problems: Low: Acute, uncomplicated illness or injury Data: Unique test(s) ordered: 1 Risk: Moderate: Drug management Medical Decision Making Level: 3 - Low Sanjay Yates APRN.OPERATOR HELPER 07/10/2024 12:40 PM Signed Allergies As of Date: 07/10/2024 Noted Allergy Reaction SULFA (SULFONAMIDE ANTIBIOTICS) 12/05/2004 4 - Hives Date Reviewed: 07/10/2024 Reviewed by: Rossy Mendoza LPN - Fully Assessed Reason for Visit: URI [115] Cmt: headache and body aches and fever off and on started 4 days ago Primary Visit Diagnosis:Flu-like symptoms [R68.89] Other Visit Diagnoses:Acute upper respiratory infection, unspecified [J06.9] Primary hypertension [I10] Comment:Well controlled. Continue lisinopril Order(s):rosuvastatin (CRESTOR) 5 mg tabletTake 1 tablet by mouth daily at bedtime.Disp: 90 tabletRfl: 3 lisinopril (PRINIVIL) 10 mg tabletTake 1 tablet by mouth once daily.Disp: 90 tabletRfl: 3 COVID AND INFLUENZA A/B AND RSV PCR, ROUTINE [SQCVFLRS] Order #: [id number]. #:[id number] predniSONE (DELTASONE) 10 mg tabletTake 4 tabs daily for 3 days, then 2 tabs daily for 3 days, then 1 tab daily for 3 days with food.Disp: 21 tabletRfl: 0 Prescriptions as of 07/10/2024 - rosuvastatin (CRESTOR) 5 mg tablet Take 1 tablet by (more content not included)... Normal [facility] Echo Completeon 07-07-2024 Echo Complete [facility] [address] [place] [address] Echo Complete 07/07/24 0914 MR#: [id number] Acct: [id number] Name: MARTINE LANDAVERDE Rep #: [id number] : 1955 68 From: Nahum Peacock MD Attending Dr: Dr. Eriberto Tovar MD Status: R [facility] Ordering Dr: ERIBERTO TOVAR Date: 07/07/24 Location: [facility] Sex: F C Admitted: Reason For Study Reason For Study: ABN EKG Procedure This was a 2D Doppler, Color Flow transthoracic echocardiogram. Exam performed in department. Left Ventricle Normal LV size. Left ventricular systolic function is normal. The left ventricular ejection fraction is 60 %. Stage 1 diastolic dysfunction. No regional wall motion abnormalities noted. Right Ventricle Normal RV size. Normal systolic function. Atria Normal left atrium. Normal right atrium. Mitral Valve Normal mitral valve. Tricuspid Valve Normal tricuspid valve. Mild tricuspid valve insufficiency. Pulmonary artery systolic pressure is 24 mmHg. Aortic Valve Trisinus/trileaflet aortic valve. Pulmonic Valve Normal pulmonic valve. Great Vessels Normal aortic root. The pulmonary artery is normal size. Inferior vena cava collapse with respiration. Pericardium/Pleural No pericardial effusion. MMode/2D Measurements Calculations LVIDd: 5.4 cm IVSd: 0.99 cm Ao root diam: 3.2 cm LVIDs: 3.8 cm LVPWd: 0.77 cm FS: 29.4 % LAV(MOD-bp): 63.5 ml LVAd ap4: 24.5 cm2 LVAd ap2: 24.6 cm2 LAV(MOD-bp) Indexed: 33.4 ml/m2 LVLd ap4: 7.5 cm LVLd ap2: 7.5 cm LAV(MOD-sp2): 55.8 ml EDV(MOD-sp4): 68.1 ml EDV(MOD-sp2): 66.6 ml LAV(MOD-sp4): 67.9 ml EDV(sp4-el): 67.3 ml EDV(sp2-el): 68.9 ml LVAs ap4: 14.5 cm2 LVAs ap2: 14.2 cm2 LVLs ap4: 6.5 cm LVLs ap2: 6.2 cm ESV(MOD-sp4): 28.2 ml ESV(MOD-sp2): 26.6 ml ESV(sp4-el): 27.4 ml ESV(sp2-el): 27.4 ml EF(MOD-sp4): 58.6 % EF(MOD-sp2): 60.1 % EF(sp4-el): 59.2 % SV(MOD-sp4): 39.9 ml SV(MOD-sp2): 40.0 ml SV(sp4-el): 39.9 ml SI(MOD-sp4): 21.0 ml/m2 SI(MOD-sp2): 21.1 ml/m2 LA A4 area: 20.6 cm2 LA dimension(2D): 4.0 cm RA A4 area: 14.6 cm2 TAPSE: 1.8 cm Time Measurements MV dec time: 0.21 sec Doppler Measurements Calculations MV E max jasmyn: 59.9 cm/sec Lat Peak E' Jasmyn: 8.3 cm/sec Med Peak E' Jasmyn: 8.1 cm/sec MV A max jasmyn: 61.2 cm/sec E/E' lat: 7.2 E/E' med: 7.4 MV E/A: 0.98 MV V2 max: 78.3 cm/sec Ao V2 max: 112.1 cm/sec MV max P.5 mmHg MV dec slope: 279.6 cm/sec2 Ao max P.0 mmHg MV V2 mean: 45.4 cm/sec Ao V2 mean: 76.3 cm/sec MV mean P.97 mmHg Ao mean P.7 mmHg MV V2 VTI: 21.8 cm Ao V2 VTI: 24.6 cm AV (velocity ratio): 0.76 LV V1 max: 94.2 cm/sec PA V2 max: 140.8 cm/sec TR max jasmyn: 227.3 cm/sec LV V1 max P.5 mmHg PA V2 mean: 87.4 cm/sec TR max P.7 mmHg LV V1 mean P.9 mmHg LV V1 mean: 64.8 cm/sec LV V1 VTI: 18.8 cm ECHO/Echo Complete Interpretation Summary Normal LV size. Left ventricular systolic function is normal. The left ventricular ejection fraction is 60 %. Stage 1 diastolic dysfunction. Ordering Physician: ERIBERTO TOVAR Referring Physician: Eriberto Tovar Performed By: Amelia Streeter, RDCS, RVT 07/07/24 1210 Date Nahum Peacock MD CC: Dr. Eriberto Tovar MD; ERIBERTO TOVAR Date Dictated: 07/07/24913 Date Transcribed: 07/07/24 121 [employer]: Signed [facility] 07-05-2024 [facility] Telephone (INTMWS) MARTINE LANDAVERDE ([id number]) 1955 F Date Time Provider Department 07/05/24 ERIBERTO TOVAR During your visit today, we recorded the following information about you: Ronny Mills RN 07/05/2024 9:40 AM Signed Faxed cardiology referral and EKG results to [facility], per patient request. [facility]: phone # [phone], Allergies As of Date: 07/05/2024 Noted Allergy Reaction SULFA (SULFONAMIDE ANTIBIOTICS) 12/05/2004 4 - Hives Date Reviewed: 07/04/2024 Reviewed by: Sanjay Yates APRN.OPERATOR HELPER - Fully Assessed Reason for Visit: Faxed to [facility] [Other] Prescriptions as of 07/05/2024 - clobetasol (TEMOVATE) 0.05 % ointment Apply 1 application to affected area two times a week. - venlafaxine ER (EFFEXOR XR) 150 mg 24 hr capsule Take 1 capsule by mouth two times a day. - gabapentin (NEURONTIN) 400 mg capsule Take 1 capsule by mouth four times daily for 180 days. as directed - TURMERIC ORAL Take 500 mg by mouth once daily. Turmeric 500mg and black pepper 5mg - Zinc Gluconate 100 mg tab Take 2 tablets by mouth once daily. - COQ10, UBIQUINOL, ORAL Take 1 tablet by mouth once daily. - FERROUS SULFATE ORAL Take 365 mg by mouth once daily. - L.acid/L.casei/B.bif/B.jose/F OS (PROBIOTIC BLEND ORAL) Take 175 mg by mouth once daily. - aspirin 81 mg cap Take by mouth. - lisinopril (PRINIVIL) 10 mg tablet Take 1 tablet by mouth once daily. - traMADol (ULTRAM) 50 mg tablet Take 50 mg by mouth two times a day as needed. - traZODone (DESYREL) 50 mg tablet Take 0.5-1 tablets by mouth daily at bedtime. - rosuvastatin (CRESTOR) 5 mg tablet Take 1 tablet by mouth daily at bedtime. - diclofenac, EC, (VOLTAREN) 75 mg EC tablet Take 1 tablet by mouth two times a day. For pain/inflammation. Take with food. - CPAP Initiate CPAP @ 9 cm of water with humidification. Mask (per patient preference) optional chin strap (if indicated) , filters, tubing, humidifier and lifetime supplies. - fluticasone (FLONASE) 50 mcg/actuation nasal spray Use 2 Sprays in each nostril once daily. - CPAP CHIN STRAP, USED WITH CPAP DEVICE - glucosam sul na/chondr galvan a na(GLUCOSAMINE-CHONDROITIN 3X 750 MG-600 MG TAB) Take 1 tablet twice daily. - MAGNESIUM OXIDE 500 MG TAB Take 250 mg by mouth once daily. - MELATONIN 3 MG TAB Take 10 mg by mouth. nightly - cholecalciferol(VITAMIN D-3 1,000 UNIT CHEWABLE TAB) Take 2 tablets daily. - methylsulfonylmethane(MSM 1,000 MG TAB) 1 tablet twice daily. - vitamin b complex(B COMPLEX TAB) Take by mouth. - VITAMIN E 400 UNIT CAP Take one(1) tablet daily. - CALCIUM 600 + D(3) 600 MG-200 UNIT TAB Take one(1) tablet twice daily. - MULTIVITAMIN TAB Take one(1) tablet daily. Problem List As Of Date 07/05/2024 Noted Resolved Fibromyalgia [M79.7] 06/01/2008 Pain in joint, multiple sites [M25.50] 06/01/2008 01/17/2015 INSOMNIA NOS [G47.00] 06/01/2008 Chronic fatigue [R53.82] 06/01/2008 Other and unspecified hyperlipidemia [E78.5] 06/01/2008 12/22/2012 Recurrent major depressive disorder, in partial*06/01/2008 07/13/2023 ANEMIA NOS [D64.9] 06/01/2008 DISC DEGENERATION NOS [[id number]] 06/04/2008 Unspecified sleep apnea [G47.30] 07/31/2008 02/25/2016 Periodic limb movement disorder [G47.61] 09/12/2008 02/25/2016 Acute gastritis with hemorrhage [K29.01] 10/17/2008 04/30/2017 Contact dermatitis and other eczema, due to uns*02/14/2009 01/17/2015 Xerosis cutis [L85.3] 02/14/2009 01/17/2015 Sun-damaged skin [L57.8] 02/14/2009 01/17/2015 Lentigo [L81.4] 02/14/2009 01/17/2015 Melanocytic nevus of trunk [D22.5] 02/14/2009 02/25/2016 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] 02/14/2009 01/17/2015 Bunion [M21.619] 12/10/2009 Symptomatic menopausal or female climacteric st*01/12/2012 02/25/2016 Dyspareunia [TGR8077] 05/23/2012 Change in bowel habits [R19.4] 11/23/2013 02/25/2016 GERD (gastroesophageal reflux disease) [K21.9] 11/23/2013 04/30/2017 Obstructive sleep apnea [G47.33] Generalized anxiety disorder [F41.1] 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.*07/13/2023 Screen for colon cancer [Z12.11] 01/27/2024 Encounter Status:Closed by Ronny MILLS on 07/05/24 [facility] CNPN Telephone (INTMWS) MARTINE LANDAVERDE ([id number]) 1955 F Date Time Provider Department 07/05/24 ERIBERTO TOVAR INTMWS During your visit today, we recorded the following information about you: Karen Hendrix, RN 07/05/2024 1:44 PM Colleen Goyal from [facility] calls and states [facility] does have a provider that is willing to see patient prior to surgery date on 07/17/2024. Medical Laboratory Specialist is asking if patient can get ECHO done prior to appointment. [facility] cannot order this testing because patient is not an established with them yet. [facility] will not order testing even though they had called [facility] requesting that patient be seen and cleared prior to cardiac cardiology. Jyotsna is asking if PCP can order the testing and fax the order to [facility] scheduling and notify Jyotsna when order is faxed. Jyotsna spoke with patient who had told her that she requested referral to be faxed over to [facility] to see which office can see her first. Please review and advise, KILEY James Liza D, MD 07/05/2024 2:30 PM Signed Filed order Rossy Mendoza LPN 07/05/2024 2:46 PM Signed Jyotsna made aware that order has been faxed for the ECHO Allergies As of Date: 07/05/2024 Noted Allergy Reaction SULFA (SULFONAMIDE ANTIBIOTICS) 12/05/2004 4 - Hives Date Reviewed: 07/04/2024 Reviewed by: Sanjay Yates APRN.OPERATOR HELPER - Fully Assessed Reason for Visit: Orders [681] Primary Visit Diagnosis:Abnormal ECG [R94.31] Order(s):ECHO [[id number]] Order #: [id number]: 1 FUTURE Prescriptions as of 07/05/2024 - clobetasol (TEMOVATE) 0.05 % ointment Apply 1 application to affected area two times a week. - venlafaxine ER (EFFEXOR XR) 150 mg 24 hr capsule Take 1 capsule by mouth two times a day. - gabapentin (NEURONTIN) 400 mg capsule Take 1 capsule by mouth four times daily for 180 days. as directed - TURMERIC ORAL Take 500 mg by mouth once daily. Turmeric 500mg and black pepper 5mg - Zinc Gluconate 100 mg tab Take 2 tablets by mouth once daily. - COQ10, UBIQUINOL, ORAL Take 1 tablet by mouth once daily. - FERROUS SULFATE ORAL Take 365 mg by mouth once daily. - L.acid/L.casei/B.bif/B.jose/F OS (PROBIOTIC BLEND ORAL) Take 175 mg by mouth once daily. - aspirin 81 mg cap Take by mouth. - lisinopril (PRINIVIL) 10 mg tablet Take 1 tablet by mouth once daily. - traMADol (ULTRAM) 50 mg tablet Take 50 mg by mouth two times a day as needed. - traZODone (DESYREL) 50 mg tablet Take 0.5-1 tablets by mouth daily at bedtime. - rosuvastatin (CRESTOR) 5 mg tablet Take 1 tablet by mouth daily at bedtime. - diclofenac, EC, (VOLTAREN) 75 mg EC tablet Take 1 tablet by mouth two times a day. For pain/inflammation. Take with food. - CPAP Initiate CPAP @ 9 cm of water with humidification. Mask (per patient preference) optional chin strap (if indicated) , filters, tubing, humidifier and lifetime supplies. - fluticasone (FLONASE) 50 mcg/actuation nasal spray Use 2 Sprays in each nostril once daily. - CPAP CHIN STRAP, USED WITH CPAP DEVICE - glucosam sul na/chondr galvan a na(GLUCOSAMINE-CHONDROITIN 3X 750 MG-600 MG TAB) Take 1 tablet twice daily. - MAGNESIUM OXIDE 500 MG TAB Take 250 mg by mouth once daily. - MELATONIN 3 MG TAB Take 10 mg by mouth. nightly - cholecalciferol(VITAMIN D-3 1,000 UNIT CHEWABLE TAB) Take 2 tablets daily. - methylsulfonylmethane(MSM 1,000 MG TAB) 1 tablet twice daily. - vitamin b complex(B COMPLEX TAB) Take by mouth. - VITAMIN E 400 UNIT CAP Take one(1) tablet daily. - CALCIUM 600 + D(3) 600 MG-200 UNIT TAB Take one(1) tablet twice daily. - MULTIVITAMIN TAB Take one(1) tablet daily. Problem List As Of Date 07/05/2024 Noted Resolved Fibromyalgia [M79.7] 06/01/2008 Pain in joint, multiple sites [M25.50] 06/01/2008 01/17/2015 INSOMNIA NOS [G47.00] 06/01/2008 Chronic fatigue [R53.82] 06/01/2008 Other and unspecified hyperlipidemia [E78.5] 06/01/2008 12/22/2012 Recurrent major depressive disorder, in partial*06/01/2008 07/13/2023 ANEMIA NOS [D64.9] 06/01/2008 DISC DEGENERATION NOS [[id number]] 06/04/2008 Unspecified sleep apnea [G47.30] 07/31/2008 02/25/2016 Periodic limb movement disorder [G47.61] 09/12/2008 02/25/2016 Acute gastritis with hemorrhage [K29.01] 10/17/2008 04/30/2017 Contact dermatitis and other eczema, due to uns*02/14/2009 01/17/2015 Xerosis cutis [L85.3] 02/14/2009 01/17/2015 Sun-damaged skin [L57.8] 02/14/2009 01/17/2015 Lentigo [L81.4] 02/14/2009 01/17/2015 Melanocytic nevus of trunk [D22.5] 02/14/2009 02/25/2016 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 Normal [facility] CNOVon 07-04-2024 CNOV Office Visit (INTMWS ) MARTINE LANDAVERDE ([id number]) 1955 F Date Time Provider Department 07/04/24 2:20 PM SANJAY YATES INTMWS During your visit today, we recorded the following information about you: Pulse Respiration Blood pressure Weight 85/minute 16/minute 112/64 78.6 kg Sanjay Yates APRN.OPERATOR HELPER 07/04/2024 3:59 PM Signed Subjective Patient ID: Tristian is a 68 year old female who presents for Follow Up. JENNY Landaverde presents for recheck having seen Eriberto Tovar MD 06/19/2024 for preoperative clearance. She was cleared by Eriberto Tovar MD for surgery on that date, then subsequently developed a sore throat and headache July 01, 2024. Strep test was negative. She completed lab testing and EKG ordered by surgeon Dr. Barrios. EKG noted to be abnormal. Mild anemia noted. WBCs elevated. Presents today for a recheck. She has a preoperative visit scheduled with Dr. Barrios partner Evangelista Jones PAC 07/10/2024. Abnormal EKG: - Recent EKG showed possible cardiac enlargement and prior GA. - Denies current chest pain, dyspnea, palpitations, dizziness, or edema. - Able to walk on flat surfaces without dyspnea or chest pain unlimited; unable to assess stair climbing due to knee pain. - Remote history of irregular heartbeats; previously suspected MVP. - No history of CAD, GA or CVA. Has history of SHANNON and mild anemia. - Family history of CAD and CVA in mother, maternal grandfather, and brother. - No history of pulmonary, renal, or hepatic disease. - Last stress test was over 30 years ago, with normal results. Exertion is limit by knee pain. Prior EKG at Medicare wellness visit 02/03/2021 NSR, left axis deviation. Stress echo treadmill 2011 completed for ftigue and dizziness negative for ischemia at 99%MPHR, 10.5 METS Without report of headache, chest pain, palpitations, dyspnea, peripheral edema, orthopnea, fatigue, and PND. Last 3 Encounter BP Readings: Date: BP: 07/04/2024 112/64 07/01/2024 122/80 06/22/2024 126/78 Iron Deficiency Anemia: - Chronic iron deficiency anemia; taking iron supplements with vitamin C daily. - Recent labs show hemoglobin at 11.1 g/dL. - Family history of iron deficiency anemia in father. Sore Throat: - Recent sore throat after seeing Dr. Tovar; evaluated at [facility], strep test negative. - Symptoms have resolved; no current fever or sore throat. Right TKA: - Scheduled for right TKA in 07/17/[address] Barrios. - Pre-operative labs and EKG completed. ACS NSQIP Surgical Risk Calculator 1. Age Group: 65 - 74 years 2. Sex: female 3. Functional Status: Independent 4. Emergency Case: No 5. ASA Class: Mild systemic disease 6. Steroid use for chronic condition: No 7. Ascites within 30 days prior to surgery: No 8. Systemic Sepsis within 48 hours prior to surgery: None 9. Ventilator Dependent: No 10. Disseminated Cancer: No 11. Diabetes: None 12. Hypertension requiring medication: No 13. Congestive Heart Failure in 30 days prior to surgery: No 14. Dyspnea: No 15. Current Smoker within 1 Year: No 16. History of COPD: No 17. Dialysis: No 18. Acute Renal Failure: No 19. BMI Class Calculation: Normal ROS Constitutional: (+) fatigue, (-) fever Ears/Nose/Mouth/Throat: (-) sore throat Cardiovascular: (-) chest pain, (-) palpitations, (-) leg swelling Respiratory: (-) shortness of breath Musculoskeletal: (+) right knee pain Neurological: (-) dizziness, (-) lightheadedness Labs: (Yesterday) Lab results: White Blood Cell Count: Normal Hemoglobin: 11.1 g/dL Iron: Low (Wednesday) Rapid Strep Test: Negative (Wednesday) Lab results: White Blood Cell Count: Normal Hemoglobin: 11.1 g/dL Iron: Low Tests: (Wednesday) EKG: Abnormal findings suggest possible cardiac enlargement or prior myocardial infarction Stress Test (many years ago): Normal Objective BP 112/64 Pulse 85 Resp 16 Wt 78.6 kg (173 lb 4.5 oz) LMP 10/02/2007 SpO2 96% BMI 27.55 kg/m? Physical Exam Vitals and nursing note reviewed. Constitutional: Appearance: Normal appearance. HENT: Head: Normocephalic and atraumatic. Eyes: Conjunctiva/sclera: Conjunctivae normal. Neck: Thyroid: No thyroid mass or thyromegaly. Vascular: Normal carotid pulses. No carotid bruit or JVD. Cardiovascular: Rate and Rhythm: Normal rate and regular rhythm. Pulses: Carotid pulses are 2+ on the right side and 2+ on the left side. Radial pulses are 2+ on the right side and 2+ on the left side. Heart sounds: Normal heart sounds. Pulmonary: Effort: Pulmonary effort is normal. Breath sounds: Normal breath sounds. Abdominal: General: Bowel sounds are normal. Palpations: Abdomen is soft. Musculoskeletal: Left knee: Bony tenderness present. Decreased range of motion. Skin: General: Skin is warm and dry. Neurological: General: No focal deficit present. (more content not included)... Normal [facility] 07-04-2024 CNPN Telephone (INTMWS) MARTINE LANDAVERDE ([id number]) 1955 F Date Time Provider Department 07/04/24 ERIBERTO TOVAR INTWS During your visit today, we recorded the following information about you: Tristian Garcia LPN 07/04/2024 10:51 AM Signed [facility] latest CBC to be faxed to [phone]. Printed and faxed as requested. Allergies As of Date: 07/04/2024 Noted Allergy Reaction SULFA (SULFONAMIDE ANTIBIOTICS) 12/05/2004 4 - Hives Date Reviewed: 07/01/2024 Reviewed by: Kelly Rodriguez LPN - Fully Assessed Reason for Visit: [facility] requesting records [Other] Prescriptions as of 07/04/2024 - clobetasol (TEMOVATE) 0.05 % ointment Apply 1 application to affected area two times a week. - venlafaxine ER (EFFEXOR XR) 150 mg 24 hr capsule Take 1 capsule by mouth two times a day. - gabapentin (NEURONTIN) 400 mg capsule Take 1 capsule by mouth four times daily for 180 days. as directed - TURMERIC ORAL Take 500 mg by mouth once daily. Turmeric 500mg and black pepper 5mg - Zinc Gluconate 100 mg tab Take 2 tablets by mouth once daily. - COQ10, UBIQUINOL, ORAL Take 1 tablet by mouth once daily. - FERROUS SULFATE ORAL Take 365 mg by mouth once daily. - L.acid/L.casei/B.bif/B.jose/F OS (PROBIOTIC BLEND ORAL) Take 175 mg by mouth once daily. - aspirin 81 mg cap Take by mouth. - lisinopril (PRINIVIL) 10 mg tablet Take 1 tablet by mouth once daily. - traMADol (ULTRAM) 50 mg tablet Take 50 mg by mouth two times a day as needed. - traZODone (DESYREL) 50 mg tablet Take 0.5-1 tablets by mouth daily at bedtime. - rosuvastatin (CRESTOR) 5 mg tablet Take 1 tablet by mouth daily at bedtime. - diclofenac, EC, (VOLTAREN) 75 mg EC tablet Take 1 tablet by mouth two times a day. For pain/inflammation. Take with food. - CPAP Initiate CPAP @ 9 cm of water with humidification. Mask (per patient preference) optional chin strap (if indicated) , filters, tubing, humidifier and lifetime supplies. - fluticasone (FLONASE) 50 mcg/actuation nasal spray Use 2 Sprays in each nostril once daily. - CPAP CHIN STRAP, USED WITH CPAP DEVICE - glucosam sul na/chondr galvan a na(GLUCOSAMINE-CHONDROITIN 3X 750 MG-600 MG TAB) Take 1 tablet twice daily. - MAGNESIUM OXIDE 500 MG TAB Take 250 mg by mouth once daily. - MELATONIN 3 MG TAB Take 10 mg by mouth. nightly - cholecalciferol(VITAMIN D-3 1,000 UNIT CHEWABLE TAB) Take 2 tablets daily. - methylsulfonylmethane(MSM 1,000 MG TAB) 1 tablet twice daily. - vitamin b complex(B COMPLEX TAB) Take by mouth. - VITAMIN E 400 UNIT CAP Take one(1) tablet daily. - CALCIUM 600 + D(3) 600 MG-200 UNIT TAB Take one(1) tablet twice daily. - MULTIVITAMIN TAB Take one(1) tablet daily. Problem List As Of Date 07/04/2024 Noted Resolved Fibromyalgia [M79.7] 06/01/2008 Pain in joint, multiple sites [M25.50] 06/01/2008 01/17/2015 INSOMNIA NOS [G47.00] 06/01/2008 Chronic fatigue [R53.82] 06/01/2008 Other and unspecified hyperlipidemia [E78.5] 06/01/2008 12/22/2012 Recurrent major depressive disorder, in partial*06/01/2008 07/13/2023 ANEMIA NOS [D64.9] 06/01/2008 DISC DEGENERATION NOS [[id number]] 06/04/2008 Unspecified sleep apnea [G47.30] 07/31/2008 02/25/2016 Periodic limb movement disorder [G47.61] 09/12/2008 02/25/2016 Acute gastritis with hemorrhage [K29.01] 10/17/2008 04/30/2017 Contact dermatitis and other eczema, due to uns*02/14/2009 01/17/2015 Xerosis cutis [L85.3] 02/14/2009 01/17/2015 Sun-damaged skin [L57.8] 02/14/2009 01/17/2015 Lentigo [L81.4] 02/14/2009 01/17/2015 Melanocytic nevus of trunk [D22.5] 02/14/2009 02/25/2016 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] 02/14/2009 01/17/2015 Bunion [M21.619] 12/10/2009 Symptomatic menopausal or female climacteric st*01/12/2012 02/25/2016 Dyspareunia [WTG1184] 05/23/2012 Change in bowel habits [R19.4] 11/23/2013 02/25/2016 GERD (gastroesophageal reflux disease) [K21.9] 11/23/2013 04/30/2017 Obstructive sleep apnea [G47.33] Generalized anxiety disorder [F41.1] 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.*07/13/2023 Screen for colon cancer [Z12.11] 01/27/2024 Encounter Status:Closed by TRISTIAN GARCIA on 07/04/24 Normal [facility] ECG COMPLETEon 07-04-2024 ECG COMPLETE Ventricular Rate : 7 5 BPM Atrial Rate : 75 BPM P-R Interval : 178 ms QRS Duration : 104 ms Q-T Interval : 408 ms QTC Calculation(Bazett) : 455 ms Calculated P [place] : 56 degrees Calculated R [place] : -66 degrees Calculated T [place] : 34 degrees NORMAL SINUS RHYTHM LEFT AXIS DEVIATION ABNORMAL ECG Confirmed by MD JURADO QARAB ([id number]) on 07/05/2024 4:10:20 PM NAME : MARTINE LANDAVERDE PID : [id number] : 1955 Gender : Female Race : ORD : [id number] Procedure Date : Jul 04 2024 15:04:39 Edit Date : Jul 05 2024 16:10:24 Diagnosis: NORMAL SINUS RHYTHM LEFT AXIS DEVIATION ABNORMAL ECG Confirmed by MD JURADO QARAB ([id number]) on 07/05/2024 4:10:20 PM Test Reason : R94.31 Abnormal EKG Location : 185 : WO Overread By : MD JURADO QARAB Edited By : MD JURADO QARAB Referred By : , Acquired by : Beltran Vanessa [facility] MR/BMS.BPon 07-04-2024 MR/BMS.BP [address], [address] [place] [address] OFFICE VISIT Date of Service: 07/04/24 MR#: [id number] Acct: [id number] Name: MARTINE LANDAVERDE Rep #: [id number] : 1955 [facility] Age/Sex: 68/F Location: [facility] [place].BP Status: Signed Intake Vital Signs 04/20/24 10:48 06/25/24 08:55 07/04/24 16:10 Height 5 ft 7 in 5 ft 7 in 5 ft 7 in BP Intake Visit Reasons: Follow up Allergies Sulfa (Sulfonamide Antibiotics) Allergy (Verified 06/21/24 12:54) Hives Have you fallen in the past year?: No PFSH Medical History (Updated 06/29/24 @ 07:39 by Asiya Mitchell) MRSA (methicillin resistant Staphylococcus aureus) colonization Wears glasses Low iron History of IBS Heartburn Leg cramps Post-menopausal Depression Anxiety Arthritis High cholesterol Back pain Injury of back Injury of head and neck Non-smoker CPAP (continuous positive airway pressure) dependence Cardiology follow-up encounter History of echocardiogram History of stress test Hypertension Surgical History (Updated 06/21/24 @ 13:12 by Karin Olmstead) History of toe surgery History of esophagogastroduodenoscopy (EGD) Hx of colonoscopy Hx of left cataract extraction Hx of right cataract extraction Hx of spinal surgery Hx of thumb surgery History of bunionectomy of right great toe Hx of ovarian cystectomy Hx of cervical spine surgery Hx of hand surgery History of bunionectomy of left great toe History of bunionectomy of left great toe Family History Mother Heart disease Social History household members: spouse Smoking Status: Never smoker HPI History of Present Illness HPI: Martine ([facility]) is a 68 year-old female returning for therapy. She arrived late to the appointment as another medical appointment took longer than expected. Martine is preparing for knee surgery on 07/17/2024. There are cardiac concerns from her pre-surgery evaluation, and she must see a home health registered nurse. Martine is spending much time getting the household ready for her surgery. She reports that her 's antagonistic behavior has recently increased, and she is concerned that he will not handle her surgery well. Focused on working around antagonistic behavior and implementing self-care. Also worked on identifying ways Martine can utilize additional supports. She has arranged for a caregiver to spend nights with her. No SI. Future-oriented. Exam Mental Status Exam - Psych Appearance casually dressed and well kempt Attitude cooperative, calm, engaged, pleasant and friendly Activity/Motor Behavior appropriate eye contact and fidgeting Speech regular rate, regular volume and excessive Mood OK and anxious Affect anxious Thought Process linear, logical, coherent and goal directed Thought Content no delusions, no hallucinations and ruminations (Related to 's behaviors.) Suicidal Ideation none Homicidal Ideation none Attention intact Concentration intact Sensorium/Orientation alert and oriented x3 Memory/Cognition intact Insight good Judgement good Assessment Plan Assessment Plan (1) Anxiety: Plan: therapy using CBT, DBT, and ACT interventions to address thought patterns contributing to anxious symptoms and to teach coping skills. Psychiatric services to monitor anxious symptoms and medication effectiveness. (2) Depression: Plan: therapy using CBT, DBT, and ACT interventions to address thought patterns contributing to depressive symptoms and teach coping skills. Continued psychiatric services to monitor depressive symptoms and medication effectiveness. Pt. to call 911, call suicide prevention hotline, or go to ER if experiencing suicidal ideation with plan and intent and/or feel unable to ensure own safety. Plan TREATMENT PLAN Goal 1 - Will eliminate or reduce level of anxiety and other negative emotions related to traumatic experiences in relationship AEB by pt.'s report of symptom reduction. Objective 1 - Participate in cognitive therapy to help identify, challenge, and replace biased, negative, and self-defeating thoughts resulting from relationship experiences and interactions. Intervention 1 - Using cognitive therapy techniques, explore self-talk and beliefs about self, others and world; teach thinking distortions; and explore alternative thinking. Objective 2 - Verbalize insight into how relationship may be influencing current experiences with anxiety and other negative emotions. Intervention 1 - Help pt. increase insight into the role relational pattern may be influencing current vulnerabilities to anxiety and other negative emotions; identify core conflictual themes; and develop effective coping and s (more content not included)... Normal [facility] CBC W Auto Differential pane l (Bld)on 07-03-2024 Basophils (Bld) [#/Vol] 0.03 10*3/uL [facility] [place] Basophils/100 WBC (Bld) 0.4 % [facility] Differential cell count method Nom (Bld) Auto [facility] Eosinophils (Bld) [#/Vol] 0.06 10*3/uL [facility] [place] Eosinophils/100 WBC (Bld) 0.8 % [facility] Erythrocyte distribution width (RBC) [Ratio] 14 % 11.5 - 15.0 % [facility] Hematocrit (Bld) [Volume fraction] 36.9 % 36.0 - 46.0 % [facility] Hemoglobin (Bld) [Mass/Vol] 11.1 g/dL Low 11.5 - 15.5 g/dL [facility] Immature granulocytes (Bld) [#/Vol] 0.03 10*3/uL [facility] [place] Immature granulocytes/100 WBC (Bld) 0.4 % [facility] Interpretation and review of laboratory results Abnormal [facility] Lymphocytes (Bld) [#/Vol] 2.14 10*3/uL [facility] Lymphocytes/100 WBC (Bld) 27.1 % [facility] MCH (RBC) [Entitic mass] 23.5 pg Low 26.0 - 34.0 pg [facility] MCHC (RBC) [Mass/Vol] 30.1 g/dL Low 30.5 - 36.0 g/dL [facility] MCV (RBC) [Entitic vol] 78 fL Low 80.0 - 100.0 fL [facility] Monocytes (Bld) [#/Vol] 0.7 10*3/uL [facility] [place] Monocytes/100 WBC (Bld) 8.9 % [facility] Neutrophils (Bld) [#/Vol] 4.94 10*3/uL [facility] Neutrophils/100 WBC (Bld) 62.4 % [facility] Nucleated RBC (Bld) [#/Vol] NINF [facility] Nucleated RBC/100 WBC (Bld) [Ratio] 0 % /100 WBC [facility] Platelet mean volume (Bld) [Entitic vol] 8.5 fL Low 9.0 - 12.7 fL [facility] Platelets (Bld) [#/Vol] 388 10*3/uL [facility] RBC (Bld) [#/Vol] 4.73 10*6/uL 3.90 - 5.2 0 m/uL [facility] WBC (Bld) [#/Vol] 7.9 10*3/uL [facility] Basophils (Bld) [#/Vol] 0.03 10*3/uL Normal <0.11 [facility] Comment on above: Order Comment: Speci men Type: BLOOD SPECIMENOrdering Facility: [facility] Address: [address] [place] [address] Performed By: #### 5 7021-8 ####[facility] [id number] [place] [address] [place] Basophils/100 WBC (Bld) 0.4 % Normal [facility] Comment on above: Order Comment: Speci men Type: BLOOD SPECIMENOrdering Facility: [facility] Address: [address] [place] [address] Performed By: #### 5 7021-8 ####[facility] [id number] [place] [address] [place] Differential cell count method Nom (Bld) Auto Normal [facility] Comment on above: Order Comment: Speci men Type: BLOOD SPECIMENOrdering Facility: [facility] Address: [address] [place] [address] Performed By: #### 5 7021-8 ####[facility] [id number] [place] [address] [place] Eosinophils (Bld) [#/Vol] 0.06 10*3/uL Normal <0.46 [facility] Comment on above: Order Comment: Speci men Type: BLOOD SPECIMENOrdering Facility: [facility] Address: [address] [place] [address] Performed By: #### 5 7021-8 ####[facility] MARTHA AVERY [id number] [place] [address] [place] Eosinophils/100 WBC (Bld) 0.8 % Normal [facility] Comment on above: Order Comment: Speci men Type: BLOOD SPECIMENOrdering Facility: [facility] Address: [address] [place] [address] Performed By: #### 5 7021-8 ####[facility] NICOSergeyMARTHAGABBY [id number] [place] [address] [place] Erythrocyte distribution width (RBC) [Ratio] 14.0 % Normal 11.5-15.0 [facility] Comment on above: Order Comment: Speci men Type: BLOOD SPECIMENOrdering Facility: [facility] Address: [address] [place] [address] Performed By: #### 5 7021-8 ####[facility] NICODENVERMARTHALINDAA [id number] [place] [address] [place] Hematocrit (Bld) [Volume fraction] 36.9 % Normal 36.0-46.0 [facility] Comment on above: Order Comment: Speci men Type: BLOOD SPECIMENOrdering Facility: [facility] Address: [address] [place] [address] Performed By: #### 5 7021-8 ####[facility] NICODENVERMARTHALIA [id number] [place] [address] [place] Hemoglobin (Bld) [Mass/Vol] 11.1 g/dL Low 11.5-15.5 [facility] Comment on above: Order Comment: Speci men Type: BLOOD SPECIMENOrdering Facility: [facility] Address: [address] [place] [address] Performed By: #### 5 7021-8 ####[facility] MILLWNCLIA [id number] [place] [address] [place] Immature granulocytes (Bld) [#/Vol] 0.03 10*3/uL Normal <0.10 [facility] Comment on above: Order Comment: Speci men Type: BLOOD SPECIMENOrdering Facility: [facility] Address: [address] [place] [address] Performed By: #### 5 7021-8 ####[facility] [id number] [place] [address] [place] Immature granulocytes/100 WBC (Bld) 0.4 % Normal [facility] Comment on above: Order Comment: Speci men Type: BLOOD SPECIMENOrdering Facility: [facility] Address: [address] [place] [address] Performed By: #### 5 7021-8 ####[facility] [id number] [place] [address] [place] Lymphocytes (Bld) [#/Vol] 2.14 10*3/uL Normal 1.00-4.00 [facility] Comment on above: Order Comment: Speci men Type: BLOOD SPECIMENOrdering Facility: [facility] Address: [address] [place] [address] Performed By: #### 5 7021-8 ####[facility]IALWNCLIA [id number] [place] [address] [place] Lymphocytes/100 WBC (Bld) 27.1 % Normal [facility] Comment on above: Order Comment: Speci men Type: BLOOD SPECIMENOrdering Facility: [facility] Address: [address] [place] [address] Performed By: #### 5 7021-8 ####[facility] HOSPITALNCLIA [id number] [place] [address] [place] MCH (RBC) [Entitic mass] 23.5 pg Low 26.0-34.0 [facility] Comment on above: Order Comment: Speci men Type: BLOOD SPECIMENOrdering Facility: [facility] Address: [address] [place] [address] Performed By: #### 5 7021-8 ####[facility] HOSPITALNCOGD[facility] [id number] [place] [address] [place] MCHC (RBC) [Mass/Vol] 30.1 g/dL Low 30.5-36.0 [facility] Comment on above: Order Comment: Speci men Type: BLOOD SPECIMENOrdering Facility: [facility] Address: [address] [place] [address] Performed By: #### 5 7021-8 ####[facility] HOSPITALNCOGD[facility] [id number] [place] [address] [place] MCV (RBC) [Entitic vol] 78.0 fL Low 80.0-100.0 [facility] Comment on above: Order Comment: Speci men Type: BLOOD SPECIMENOrdering Facility: [facility] Address: [address] [place] [address] Performed By: #### 5 7021-8 ####[facility] HOSPITALNCLI [id number] [place] [address] [place] Monocytes (Bld) [#/Vol] 0.70 10*3/uL Normal <0.87 [facility] Comment on above: Order Comment: Speci men Type: BLOOD SPECIMENOrdering Facility: [facility] Address: [address] [place] [address] Performed By: #### 5 7021-8 ####[facility] HOSPITALNCLI [id number] [place] [address] [place] Monocytes/100 WBC (Bld) 8.9 % Normal [facility] Comment on above: Order Comment: Speci men Type: BLOOD SPECIMENOrdering Facility: [facility] Address: [address] [place] [address] Performed By: #### 5 7021-8 ####[facility] NICOTROYLIA [id number] [place] [address] [place] Neutrophils (Bld) [#/Vol] 4.94 10*3/uL Normal 1.45-7.50 [facility] Comment on above: Order Comment: Speci men Type: BLOOD SPECIMENOrdering Facility: [facility] Address: [address] [place] [address] Performed By: #### 5 7021-8 ####[facility]USL[facility] [id number] [place] [address] [place] Neutrophils/100 WBC (Bld) 62.4 % Normal [facility] Comment on above: Order Comment: Speci men Type: BLOOD SPECIMENOrdering Facility: [facility] Address: [address] [place] [address] Performed By: #### 5 7021-8 ####[facility]USL[facility] [id number] [place] [address] [place] Nucleated RBC (Bld) [#/Vol] 10*3/uL Normal <0.01 [facility] Comment on above: Order Comment: Speci men Type: BLOOD SPECIMENOrdering Facility: [facility] Address: [address] [place] [address] Performed By: #### 5 7021-8 ####[facility]USL[facility] [id number] [place] [address] [place] Nucleated RBC/100 WBC (Bld) [Ratio] 0.0 /100 WBC Normal [facility] Comment on above: Order Comment: Speci men Type: BLOOD SPECIMENOrdering Facility: [facility] Address: [address] [place] [address] Performed By: #### 5 7021-8 ####[facility]IALWNCLIA [id number] [place] [address] [place] Platelet mean volume (Bld) [Entitic vol] 8.5 fL Low 9.0-12.7 [facility] Comment on above: Order Comment: Speci men Type: BLOOD SPECIMENOrdering Facility: [facility] Address: [address] [place] [address] Performed By: #### 5 7021-8 ####[facility]USL[facility] [id number] [place] [address] [place] Platelets (Bld) [#/Vol] 388 10*3/uL Normal 150-400 [facility] Comment on above: Order Comment: Speci men Type: BLOOD SPECIMENOrdering Facility: [facility] Address: [address] [place] [address] Performed By: #### 5 7021-8 ####[facility] [id number] [place] [address] [place] RBC (Bld) [#/Vol] 4.73 10*6/uL Normal 3.90-5.20 [facility] Comment on above: Order Comment: Speci men Type: BLOOD SPECIMENOrdering Facility: [facility] Address: [address] [place] [address] Performed By: #### 5 7021-8 ####[facility] [id number] [place] [address] [place] WBC (Bld) [#/Vol] 7.90 10*3/uL Normal 3.70-11.00 [facility] Comment on above: Order Comment: Speci men Type: BLOOD SPECIMENOrdering Facility: [facility] Address: [address] [place] [address] Performed By: #### 5 7021-8 ####[facility]USL[facility] [id number] [place] [id number] [place] [facility] CNOVon 07-01-2024 CNOV Office Visit (UCWSTR ) MARTINE LANDAVERDE ([id number]) 1955 F Date Time Provider Department 07/01/24 1:45 PM ISIDORO WILSON [facility] During your visit today, we recorded the following information about you: Temperature Pulse Respiration Blood pressure 98.2 degrees 82/minute 16/minute 122/80 Weight 78.1 kg Isidoro Wilson APRN.BODY TEAM MEMBER 07/01/2024 1:56 PM Signed Subjective HPI Nontoxic-appearing female presents urgent care chief complaint sore throat headache. Duration of symptoms 2 days. Associated symptoms listed above. Most prominent symptom symptom today is sore throat. Presents today for strep testing. Does have upcoming surgery. Wants to rule out strep throat. OTC medications none recently. No difficulty swallowing his secretions decreased range of motion of neck or trismus. No high fevers. Past medical history prescription medications allergies reviewed. .Patient presents with: Sore Throat: ST and REICH x 2 days PAST MEDICAL HISTORY Diagnosis Date Chronic fatigue syndrome Depression Dyspareunia 05/23/2012 Generalized anxiety disorder Hx of colonoscopy 01/27/2024 PER LIP NEEDS MAC AND ADULT SCOPE Mitral valve disorders(424.0) Myalgia and myositis, unspecified Obstructive sleep apnea Not treating because of cost Other kyphoscoliosis and scoliosis SPURS/VERTEBRAE Other specified iron deficiency anemias Unspecified sleep apnea PAST SURGICAL HISTORY Procedure Laterality Date ARTHRD ANT NTRBD MIN DSC EA ADDL INTERSPACE COLONOSCOPY FLX DX W/COLLJ SPEC WHEN PFRMD 10/17/2008 COLONOSCOPY SCREENING 12/05/2013 10 yr interval CORRECT BUNION,SIMPLE LEFT FOOT X 2 CRYO CAUTERY CERVIX DILATION AND CURETTAGE DXAND/THER NONOBSTETRIC Dilation AND curettage EGD TRANSORAL BIOPSY SINGLE/MULTIPLE 10/17/2008 gastritis PAST SURGICAL HISTORY OF 03/03/2001 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 ALLERGIES Sulfa (Sulfonamide Antibiotics) MEDICATIONS clobetasol (TEMOVATE) 0.05 % ointment Apply 1 application to affected area two times a week. venlafaxine ER (EFFEXOR XR) 150 mg 24 hr capsule Take 1 capsule by mouth two times a day. gabapentin (NEURONTIN) 400 mg capsule Take 1 capsule by mouth four times daily for 180 days. as directed TURMERIC ORAL Take 500 mg by mouth once daily. Turmeric 500mg and black pepper 5mg Zinc Gluconate 100 mg tab Take 2 tablets by mouth once daily. COQ10, UBIQUINOL, ORAL Take 1 tablet by mouth once daily. FERROUS SULFATE ORAL Take 365 mg by mouth once daily. L.acid/L.casei/B.bif/B.jose/F OS (PROBIOTIC BLEND ORAL) Take 175 mg by mouth once daily. aspirin 81 mg cap Take by mouth. lisinopril (PRINIVIL) 10 mg tablet Take 1 tablet by mouth once daily. traMADol (ULTRAM) 50 mg tablet Take 50 mg by mouth two times a day as needed. traZODone (DESYREL) 50 mg tablet Take 0.5-1 tablets by mouth daily at bedtime. rosuvastatin (CRESTOR) 5 mg tablet Take 1 tablet by mouth daily at bedtime. diclofenac, EC, (VOLTAREN) 75 mg EC tablet Take 1 tablet by mouth two times a day. For pain/inflammation. Take with food. CPAP Initiate CPAP @ 9 cm of water with humidification. Mask (per patient preference) optional chin strap (if indicated) , filters, tubing, humidifier and lifetime supplies. fluticasone (FLONASE) 50 mcg/actuation nasal spray Use 2 Sprays in each nostril once daily. CPAP CHIN STRAP, USED WITH CPAP DEVICE glucosam sul na/chondr galvan a na(GLUCOSAMINE-CHONDROITIN 3X 750 MG-600 MG TAB) Take 1 tablet twice daily. MAGNESIUM OXIDE 500 MG TAB Take 250 mg by mouth once daily. MELATONIN 3 MG TAB Take 10 mg by mouth. nightly cholecalciferol(VITAMIN D-3 1,000 UNIT CHEWABLE TAB) Take 2 tablets daily. methylsulfonylmethane(MSM 1,000 MG TAB) 1 tablet twice daily. vitamin b complex(B COMPLEX TAB) Take by mouth. VITAMIN E 400 UNIT CAP Take one(1) tablet daily. CALCIUM 600 + D(3) 600 MG-200 UNIT TAB Take one(1) tablet twice daily. MULTIVITAMIN TAB Take one(1) tablet daily. FAMILY HISTORY Problem Relation Age of Onset Alzheimer's Disease Mother Coronary Artery Disease Mother 35 35 at first [place] Ischemic Heart Disease Mother Stroke Mother Coronary Artery Disease Brother 57 2 MIs Breast Cancer Maternal Grandmother Coronary Artery Disease Maternal Grandfather Ischemic Heart Disease Maternal Grandfather Stroke Maternal Grandfather Breast Cancer Paternal Grandmother Social History Tobacco Use Smoking status: Never Smokeless tobacco: Never Vaping Use Vaping status: Never Used Substance Use Topics Alcohol use: No Drug use: No BP 122/80 Pulse 82 Temp 36.8 ?C (98.2 ?F) (Tympanic) Resp 16 Wt 78.1 kg (172 lb 2.9 oz) LMP 10/02/2007 SpO2 96% BMI 27.37 kg/m? Review of Systems Constitutional: Negative for chills, fever and malaise/fatigue. HENT: Positive for sore throat. Negative for congestion, ear discharge, ear pain and sinus pain. Eyes: Ne (more content not included)... Normal [facility] STREP A MOLECULAR (POC)on Procedural Control Valid [facility] Strep A (POCT) Negative Negative [facility]Non [facility] LANDAVERDE ([id number]) 1955 F Date Time Provider Department 06/28/24 ERIBERTO TOVAR INTRonnyWS During your visit today, we recorded the following information about you: Rhea Rees, KILEY 06/28/2024 9:56 AM Signed [place] calling from [facility]. Patient had Surgical Clearance appt with Dr. Tovar on 06/19/24. They are in need of an updated clearance form including PCP review of pt's recent lab and EKG results, faxed back to them. Zoey states she faxed information over to PCP office yesterday, 06/27/24. Please fax completed information back to them at FAX #: [phone] KILEY Irwin Helen E, LPN 06/28/2024 10:23 AM Signed [facility] faxing Preop Clearance form for Dr. Tovar to complete. [facility]ov[facility] to review, fax back. Marleen Fuentes LPN, LPN 06/28/2024 12:14 PM Signed Rec'd labs via fax from [facility](although already rec'd them and in scanned documents) No new clearance form or EGK. Marleen Enriquez LPN 06/29/2024 10:58 AM Signed EKG REC'D AND TO PCP TO REVIEW Marleen Enriquez LPN 06/30/2024 9:[address] Tovar reviewed labs and EKG. She notes to call pt to see if any change in health,acute illnesses,chest pain,shortness of breath, or dyspnea on exertion. since pre op appt with her 06/19/24. Labs were completed 06/27/24. She thought any she felt like she was getting ill with URI but only noted as sore throat on 06/29/24 started. Ronny Mills RN 06/30/2024 4:32 PM Addendum Zoey- Martha Carter- reports she faxed the clearance form again today. Reports she needs the clearance form and ov notes by next week or pre op clearance appt will have to be re-scheduled. [facility] to ask how she is feeling pt reports she started having REICH and bad sore throat yesterday, on left side of throat. Reports she started using warm salt water gargles and Usnea gtts under her tongue yesterday and feeling better today. Still using the salt water gargles and Usnea gtts. States she still has REICH and sore throat but not bad today. States she knows her WBC's were high and states she is willing to see home health registered nurse if pcp thinks she should. Please advise patient. Eriberto Tovar MD 07/02/2024 5:41 PM Signed Below noted Would have patient follow up this week (have openings this week) to re-evaluate given acute illness last week and elevated WBC and abnormal ECG so can repeat labs and ECG to decide if needs to pursue cardiology consultation. Verify when preop eval is scheduled and will get message to them prior to that. Will fax update to Dr. Barrios after determine when patient will see me this week Lab already ordered so could get lab anytime at her convenience before the appointment. . Rhea Rees RN 07/03/2024 9:41 AM Signed In response to Dr. Tovar' note below: 1) Pre-Op Follow Up scheduled for patient, for this week with Sanjay Yates CNP 2) Pt's Pre-Op at [facility] is scheduled for 07/10/24 Sanjay Yates APRN.OPERATOR HELPER 07/03/2024 3:34 PM Signed Has OV tomorrow. EKG scanned, ordered by Dr. Barrios, abnormal EKG 06/27/2024. Allergies As of Date: 06/28/2024 Noted Allergy Reaction SULFA (SULFONAMIDE ANTIBIOTICS) 12/05/2004 4 - Hives Date Reviewed: 06/27/2024 Reviewed by: Gabriela Britt APRN.CHERIE - Fully Assessed Reason for Visit: Pre-Surgical Clearance Form [Other] Primary Visit Diagnosis:Leukocytosis, unspecified type [D72.829] Order(s):COMPLETE BLOOD COUNT AND DIFFERENTIAL [SQCBCDIF] Order #: [id number] FUTURE Prescriptions as of 07/03/2024 - clobetasol (TEMOVATE) 0.05 % ointment Apply 1 application to affected area two times a week. - venlafaxine ER (EFFEXOR XR) 150 mg 24 hr capsule Take 1 capsule by mouth two times a day. - gabapentin (NEURONTIN) 400 mg capsule Take 1 capsule by mouth four times daily for 180 days. as directed - TURMERIC ORAL Take 500 mg by mouth once daily. Turmeric 500mg and black pepper 5mg - Zinc Gluconate 100 mg tab Take 2 tablets by mouth once daily. - COQ10, UBIQUINOL, ORAL Take 1 tablet by mouth once daily. - FERROUS SULFATE ORAL Take 365 mg by mouth once daily. - L.acid/L.casei/B.bif/B.jose/F OS (PROBIOTIC BLEND ORAL) Take 175 mg by mouth once daily. - aspirin 81 mg cap Take by mouth. - lisinopril (PRINIVIL) 10 mg tablet Take 1 tablet by mouth once daily. - traMADol (ULTRAM) 50 mg tablet Take 50 mg by mouth two times a day as needed. - traZODone (DESYREL) 50 mg tablet Take 0.5-1 tablets by mouth daily at bedtime. - rosuvastatin (CRESTOR) 5 mg tablet Take 1 tablet by mouth daily at bedtime. - diclofenac, EC, (VOLTAREN) 75 mg EC tablet Take 1 tablet by mouth two times a day. For pain/inflammation. Take with food. - CPAP Initiate CPAP @ 9 cm of water with humidification. Mask (per patient pre (more content not included)... Normal [facility] MR/PAT.Alexandre 06-28-2024 MR/PAT.[facility] Medical Records Department [address] [place] [address] PAT - Anesthesia 06/28/24 1048 MR#: [id number] Acct: [id number] Name: MARTINE LANDAVERDE Rep #: [id number] : 1955 68 From: Mark Sanchez MD PCP: Dr. Eriberto Tovar MD Status:PRE [facility] Y Race: C [place] [facility] Pre-Assessment Diagnosis/Proposed Procedure Planned Operative Procedure(s): ROBOTIC ASSISTED RIGHT TOTAL KNEE ARTHROPLASTY Anesthesia History Anesthesia History - user interface engineer: Anesthesia History - user interface engineer Hx Hospitalization No 06/21/24 13:04 Any Problems With Anesthesia Yes: N,V IN PAST 06/21/24 13:04 Cholinesterase deficiency No 06/21/24 13:04 You/Your Family Experience No 06/21/24 13:04 fever (hyperthermia) with Relationship Recent Exposure to Contagious No 10/01/23 06:44 Disease Does patient have nerve Yes: NERVE STIMULATOR 06/21/24 13:04 stimulator Patient instructed to have device shut off --Does patient have Pacemaker or ICD? When Was Last Pacemaker Check QUESTION #4 FULL TEXT: You/Your Family Experience fever (hyperthermia) with Anesthesia Last Oral Intake Last Oral intake: Last Oral Intake NPO since Meds taken in AM with sips of water? Meds patient instructed to take am of surgery PONV PONV - user interface engineer: PONV - user interface engineer Female Yes 06/21/24 13:04 HX of Motion Sickness Yes 06/21/24 13:04 HX of N/V After Surgery Yes 06/21/24 13:04 Non-Smoker Yes 06/21/24 13:04 Duration of Surgery greater Yes 06/21/24 13:04 than 60 minutes Number of Risk Factors 5 06/21/24 13:04 PONV Score Severe Risk 06/21/24 13:04 Height Weight Height Weight: Anesthesia: Height Weight Height 5 ft 7 in 04/20/24 10:48 Respiratory Assessment Respiratory Assessment - user interface engineer: Respiratory Tract Infection Hx - user interface engineer Hx Respiratory Tract Infection No 06/21/24 13:04 STOP Sleep Apnea STOP Sleep Apnea - user interface engineer: STOP Sleep Apnea - user interface engineer Hx Hypertension Yes: CONTROLLED WITH MED 06/21/24 13:04 Hx Sleep Apnea Yes 06/21/24 13:04 CPAP Yes 06/21/24 13:04 BIPAP No 06/21/24 13:04 Do you snore loudly (louder than talking or can be heard Do you often feel tired/ fatigued/ sleepy during daytime? Has anyone observed you stop breathing during sleep? STOP Results Positive 06/21/24 13:04 QUESTION #5 FULL TEXT : Do you snore loudly (louder than talking or can be heard through closed doors)? Tobacco Use History Tobacco Use History - user interface engineer: Tobacco Use History - user interface engineer Tobacco Use Smoking Status Never smoker 06/21/24 13:04 Hx Tobacco Use No 06/21/24 13:04 Years Smoking Packs Smoked per Day Smoking Cessation Date was within the last 15 years Hx Smoking Cessation Date Hx Smoking Cessation Counseling Hematologic Medial History Hematologic Hx - user interface engineer: Hematologic Medical Hx - barrel polisher inside Hx of Blood Transfusion No 06/21/24 13:04 Hx of Transfusion in last 3 No 06/21/24 13:04 Months Date of Last Transfusion (if within last 3 months) Ever experience any problems No 06/21/24 13:04 with transfusion(s)? Specify any problems Hx of Preganancy in last 3 No 06/21/24 13:04 Months Nurse Filling Out Transfusion DSCHRIBER 06/21/24 13:04 Questions: Date: 06/21/24 06/21/24 13:04 Time: 13:05 06/21/24 13:04 Patient unable to answer at this time (ie. 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 Hx Now No 06/21/24 13:04 Gestational Age (in weeks): EDC: Hx Hx Para Hx Section SAB No 06/21/24 13:04 [facility] Medical History (Updated 06/25/24 @ 08:53 by Justine Romano, [facility]) Wears glasses Low iron History of IBS Heartburn Leg cramps Post-menopausal Depression Anxiety Arthritis High cholesterol Back pain Injury of back Injury of head and neck Non-smoker CPAP (continuous positive airway pressure) dependence Cardiology follow-up encounter History of echocardiogram History of stress test Hypertension Home Medications ???Medication ???Instructions ???Recorded ???Last Taken ???Type diclofenac sodium 100 mg 75 mg PO BID 11/19/16 09/30/23 His tory tablet,extended release 24 hr venlafaxine 150 mg tablet,extended 150 mg PO BID 11/19/16 09/30/23 History release 24 hr antiarthritic combination no.2 900 900 mg PO BID 12/02/20 09/30/23 History mg tablet (glucosamine-chondroitin) cholecalciferol (vitamin D3) 50 50 mcg PO DAILY 12/02/20 09/30/23 History mc (more content not included)... Normal [facility] MRSA/SAID NASAL SCREENon MRSA+SAID SCRN Reason for Exam: PRE OP MRSA MRSA Positive A S. AUREUS S. aureus Negative Normal [facility] Comment on above: Performed By: #### L 501.1800, L500.2500, L100.0100, M100.651 #### [facility] Laboratory [address] [place], [place], [id number] 12 Lead EKGon 06-27-2024 12 Lead EKG [facility] Cardiovascular Services [address] [place] [address] 12 Lead EKG 06/27/24 1309 MR#: [id number] Acct: [id number] Name: MARTINE LANDAVERDE Rep #: [id number] : 1955 68 From: Nahum Peacock MD Attending Dr: Dr. Jose L Barrios MD Status: PRE [facility] Ordering Dr: Jose L Barrios MD Date: 06/27/24 Location: [facility] Sex: F C Admitted: Test Reason : PREOP Blood Pressure : */* mmHG Vent. Rate : 82 BPM Atrial Rate : 82 BPM P-R Int : 176 ms QRS Dur : 100 ms QT Int : 390 ms P-R-T Axes : 60 207 4 degrees QTcB Int : 455 ms Normal sinus rhythm Possible Right ventricular hypertrophy Possible Lateral infarct , age undetermined Inferior infarct , age undetermined Abnormal ECG Confirmed by AYUSH AGUILAR, NAHUM ([id number]), editor house organ TORIBIO ROBB ([id number]) on 06/28/2024 7:19:40 AM Referred By: Jose L Barrios Confirmed By: NAHUM PEACOCK MD 06/28/24 07 Date Nahum Peacock MD CC: Dr. Eriberto Tovar MD; Dr. Jose L Barrios MD Signed Normal [facility] Albumin, Serumon 06-27-2024 Albumin [Mass/Vol] 4.3 g/dL Normal 3.4-4.8 [facility] Comment on above: Performed By: #### L 501.1800, L500.2500, L100.0100, M100.651 #### [facility] [address] [place], [address] Basic Metabolic Profile (BMP )on 06-27-2024 BUN/CRE 14.8 RATIO Normal 10-20 [facility] Comment on above: Performed By: #### L 501.1800, L500.2500, L100.0100, M100.651 #### [facility] [address] [place], [address] Calcium [Mass/Vol] 7.0 mg/dL Low 7.6-11.0 [facility] Comment on above: Performed By: #### L 501.1800, L500.2500, L100.0100, M100.651 #### [facility] [address] [place], [address] Chloride [Moles/Vol] 100 mmol/L Normal 98-108 [facility] Comment on above: Performed By: #### L 501.1800, L500.2500, L100.0100, M100.651 #### [facility] [address] [place], [address] CO2 [Moles/Vol] 22.8 mmol/L Normal 21.0-32.0 [facility] Comment on above: Performed By: #### L 501.1800, L500.2500, L100.0100, M100.651 #### [facility] [address] [place], [address] Creatinine [Mass/Vol] 1.06 mg/dL Normal 0.70-1.20 [facility] Comment on above: Performed By: #### L 501.1800, L500.2500, L100.0100, M100.651 #### [facility] [address] [place], [address] GAP 12 Normal 5-15 [facility] Comment on above: Performed By: #### L 501.1800, L500.2500, L100.0100, M100.651 #### [facility] [address] [place], [address] GFR/1.73 sq M.predicted among non-blacks MDRD (S/P/Bld) [Vol rate/Area] 57 mL/min/{1.73_m2} Low >60 [facility] Comment on above: Result Comment: mL/m in/1.73m2 CKD-EPI Creatinine Equation (2020) Performed By: #### L 501.1800, L500.2500, L100.0100, M100.651 #### [facility] [address] [place], [address] Glucose [Mass/Vol] 99 mg/dL Normal 70-99 [facility] Comment on above: Performed By: #### L 501.1800, L500.2500, L100.0100, M100.651 #### [facility] [address] [place], [address] Potassium [Moles/Vol] 4.2 mmol/L Normal 3.3-5.1 [facility] Comment on above: Performed By: #### L 501.1800, L500.2500, L100.0100, M100.651 #### [facility] [address] [place], [address] Sodium [Moles/Vol] 135 mmol/L Normal 133-145 [facility] Comment on above: Performed By: #### L 501.1800, L500.2500, L100.0100, M100.651 #### [facility] [address] [place], [address] Urea nitrogen [Mass/Vol] 16 mg/dL Normal 4-19 [facility] Comment on above: Performed By: #### L 501.1800, L500.2500, L100.0100, M100.651 #### [facility] [address] [place], [address] CBC W/Diff, Automatedon 06-04 Absolute Lymph 2.31 X10 3/uL Normal 0.83-4.51 [facility] Comment on above: Performed By: #### L 501.1800, L500.2500, L100.0100, M100.651 #### [facility] [address] [place], [address] Absolute Neut 10.2 X10 3/uL High 2.0-7.7 [facility] Comment on above: Performed By: #### L 501.1800, L500.2500, L100.0100, M100.651 #### [facility] [address] [place], [address] Basophils/100 WBC (Bld) 0.2 % Normal 0-1 [facility] Comment on above: Performed By: #### L 501.1800, L500.2500, L100.0100, M100.651 #### [facility] [address] [place], [address] Eosinophils/100 WBC (Bld) 0.5 % Normal 0-5 [facility] Comment on above: Performed By: #### L 501.1800, L500.2500, L100.0100, M100.651 #### [facility] [address] [place], [address] Erythrocyte distribution width (RBC) [Ratio] 14.0 % Normal 11.6-14.6 [facility] Comment on above: Performed By: #### L 501.1800, L500.2500, L100.0100, M100.651 #### [facility] [address] [place], [address] Hematocrit (Bld) [Volume fraction] 36.7 % Low 37-47 [facility] Comment on above: Performed By: #### L 501.1800, L500.2500, L100.0100, M100.651 #### [facility] [address] [place], [address] Hemoglobin (Bld) [Mass/Vol] 11.2 g/dL Low 12.0-15.0 [facility] Comment on above: Performed By: #### L 501.1800, L500.2500, L100.0100, M100.651 #### [facility] [address] [place], [address] IG% 0.400 Normal 0.0-0.9 [facility] Comment on above: Result Comment: IG% - Immature Granulocytes (promyelocytes, myelocytes and metamyelocytes) > 1% indicates that a LEFT SHIFT is Present. Performed By: #### L 501.1800, L500.2500, L100.0100, M100.651 #### [facility] [address] [place], [address] Lymphocytes/100 WBC (Bld) 17.1 % Low 19-41 [facility] Comment on above: Performed By: #### L 501.1800, L500.2500, L100.0100, M100.651 #### [facility] [address] [place], [address] MCH (RBC) [Entitic mass] 24.0 pg Low 27.0-32.0 [facility] Comment on above: Performed By: #### L 501.1800, L500.2500, L100.0100, M100.651 #### [facility] [address] [place], [address] MCHC (RBC) [Mass/Vol] 30.5 g/dL Low 32-36 [facility] Comment on above: Performed By: #### L 501.1800, L500.2500, L100.0100, M100.651 #### [facility] [address] [place], [address] MCV (RBC) [Entitic vol] 78.8 fL Low 81-99 [facility] Comment on above: Performed By: #### L 501.1800, L500.2500, L100.0100, M100.651 #### [facility] [address] [place], [address] Monocytes/100 WBC (Bld) 6.3 % Normal 0-10 [facility] Comment on above: Performed By: #### L 501.1800, L500.2500, L100.0100, M100.651 #### [facility] [address] [place], [address] Neutrophils/100 WBC (Bld) 75.5 % High 47-70 [facility] Comment on above: Performed By: #### L 501.1800, L500.2500, L100.0100, M100.651 #### [facility] [address] [place], [address] Nucleated RBC (Bld) [#/Vol] 0 10*3/uL Normal 0-5 [facility] Comment on above: Performed By: #### L 501.1800, L500.2500, L100.0100, M100.651 #### [facility] [address] [place], [address] Platelet mean volume (Bld) [Entitic vol] 8.6 fL Normal 6.2-12.0 [facility] Comment on above: Performed By: #### L 501.1800, L500.2500, L100.0100, M100.651 #### [facility] [address] [place], [address] Platelets (Bld) [#/Vol] 412 10*3/uL Normal 150-450 [facility] Comment on above: Performed By: #### L 501.1800, L500.2500, L100.0100, M100.651 #### [facility] [address] [place], [address] RBC (Bld) [#/Vol] 4.66 10*6/uL Normal 4.2-5.4 [facility] Comment on above: Performed By: #### L 501.1800, L500.2500, L100.0100, M100.651 #### [facility] [address] [place], [address] RDW SD 39.7 fl Normal 35.1-43.9 [facility] Comment on above: Performed By: #### L 501.1800, L500.2500, L100.0100, M100.651 #### [facility] [address] [place], [address] WBC (Bld) [#/Vol] 13.5 10*3/uL High 4.4-11.0 [facility] Comment on above: Performed By: #### L 501.1800, L500.2500, L100.0100, M100.651 #### [facility] [address] [place], [address] Magnesiumon 06-27-2024 Magnesium [Mass/Vol] 2.4 mg/dL High 1.5-2.2 [facility] Comment on above: Performed By: #### L 501.5200 #### [facility] [address] [place], [address] Extremity Lower without Cont raon 06-26-2024 Extremity Lower without Contra [facility] Imaging Services [address] [place] [address] Extremity Lower without Contra MR#: [id number] Acct: [id number] Name: MARTINE LANDAVERDE Rep #: [id number] : 1955 F 68 From: [place] PCP: Dr. Eriberto Tovar MD Status: REG CLI Study: Extremity Lower without Contra Date of Exam: 0 06/26/24 Exam# [id number] Ordering Dr: Jose L Barrios MD EXAM: [facility] protocol CT right knee CLINICAL HISTORY: Kelsey renee, preoperative COMPARISON: None provided. TECHNIQUE: [facility] protocol CT right knee series. FINDINGS: Limited imaging of the right hip shows no significant abnormality. Limited imaging of the right ankle shows no significant abnormality. The right knee demonstrates [id number] tricompartmental degenerative changes, with severe patellofemoral joint narrowing and at least moderate joint narrowing (nonweightbearing) in the medial and patellofemoral compartments. Multiple loose intra-articular bodies are seen posteriorly, as well as medially and laterally. No significant joint effusion is evident. CT/Extremity Lower without Contra IMPRESSION: Advanced right knee degenerative changes. Successful Thiago protocol. Reading Location: [address] CC: Dr. Eriberto Tovar MD; Dr. 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 Normal [facility] MR/BMS.BPon 06-25-2024 MR/BMS.BP [facility] [address] [place] [address], [address] [place] [address] OFFICE VISIT Date of Service: 06/20/24 MR#: [id number] Acct: [id number] Name: MARTINE LANDAVERDE Rep #: [id number] : 1955 Provider: [facility] Justine rubio Age/Sex: 68/F Location: [facility].BP Status: Signed Intake Vital Signs 04/20/24 10:48 05/23/24 07:04 06/25/24 08:55 Height 5 ft 7 in 5 ft 7 in 5 ft 7 in BP Intake Visit Reasons: follow up Allergies Sulfa (Sulfonamide Antibiotics) Allergy (Verified 06/21/24 12:54) Hives Have you fallen in the past year?: No PFSH Medical History (Updated 06/25/24 @ 08:53 by Justine Romano [facility]) Wears glasses Low iron History of IBS Heartburn Leg cramps Post-menopausal Depression Anxiety Arthritis High cholesterol Back pain Injury of back Injury of head and neck Non-smoker CPAP (continuous positive airway pressure) dependence Cardiology follow-up encounter History of echocardiogram History of stress test Hypertension Surgical History (Updated 06/21/24 @ 13:12 by Karin Olmstead) History of toe surgery History of esophagogastroduodenoscopy (EGD) Hx of colonoscopy Hx of left cataract extraction Hx of right cataract extraction Hx of spinal surgery Hx of thumb surgery History of bunionectomy of right great toe Hx of ovarian cystectomy Hx of cervical spine surgery Hx of hand surgery History of bunionectomy of left great toe History of bunionectomy of left great toe Family History Mother Heart disease Social History household members: spouse Smoking Status: Never smoker HPI History of Present Illness HPI: Martine Landaverde (Beth) is a 68 year-old female returning for therapy. She reported frustration with sister's behaviors that are affecting her and her brother's ability to resolve late parents' estate and anxiety regarding upcoming orthopaedic surgery as 's assistance following her surgeries has been limited. Encouraged verbalization of emotions while providing support. Problem solved actions needed to be ready for surgery and to ensure her care after surgery. Reinforced Martine's efforts as she has prepared food and is hiring someone to help following the surgery. 's mood and behaviors have been relatively stable. However, she worries that he will become agitated by her reduced ability to meet his needs following her surgery. Martine continues to find ways to work around his antagonistic behavior. She discussed ambivalence related to the marriage and having remained in it. Martine discussed early years of marriage and impact of it on her. Encouraged verbalization of emotions while providing support. Worked on coping and self-care. Martine identified her yue as having been helpful in coping. No reports of SI. Future-oriented. Exam Mental Status Exam - Psych Appearance casually dressed and well kempt Attitude cooperative, calm, engaged, pleasant and friendly Activity/Motor Behavior appropriate eye contact and fidgeting (May be due to pain and inability to sit comfortably.) Speech regular volume, rapid and excessive Mood anxious Affect anxious Thought Process linear, logical, coherent and goal directed Thought Content no delusions, no hallucinations and ruminations (Related to 's behavior, late parents' estate, and upcoming surgery.) Suicidal Ideation none Homicidal Ideation none Attention intact Concentration intact Sensorium/Orientation alert and oriented x3 Memory/Cognition intact Insight good Judgement good Assessment Plan Assessment Plan (1) Anxiety: Plan: therapy using CBT, DBT, and ACT interventions to address thought patterns contributing to anxious symptoms and to teach coping skills. Psychiatric services to monitor anxious symptoms and medication effectiveness. (2) Depression: Plan: therapy using CBT, DBT, and ACT interventions to address thought patterns contributing to depressive symptoms and teach coping skills. Continued psychiatric services to monitor depressive symptoms and medication effectiveness. Pt. to call 911, call suicide prevention hotline, or go to ER if experiencing suicidal ideation with plan and intent and/or feel unable to ensure own safety. Plan TREATMENT PLAN (04/07/2024) Goal 1 - Will eliminate or reduce level of anxiety and other negative emotions related to traumatic experiences in relationship AEB by pt.'s report of symptom reduction. Objective 1 - Participate in cognitive therapy to help identify, challenge, and replace biased, negative, and self-defeating thoughts resulting from relationship experiences and interactions. Intervention 1 - Using cognitive therapy techniques, explore self-talk and beliefs about self, o (more content not included)... Normal [facility] CNOVon 06-22-2024 CNOV Office Visit (OBANGIEWRonny ) MARTINE LANDAVERDE ([id number]) 1955 F Date Time Provider Department 06/22/24 2:00 PM GABRIELA BRITT During your visit today, we recorded the following information about you: Blood pressure Weight 126/78 78 kg Gabriela Britt APRN.BODY TEAM MEMBER 06/27/2024 8:56 PM Signed Martine Juares is a 68 year old female who presents for problem visit follow up for LS HPI: Lichen sclerosis - using clobetasol MWF routinely for maintenance. In February was evaluated for soreness and skin tearing around anus. She began using clobetasol but with no improvement of symptoms. Evaluated at her scheduled dermatology appointment and now using Vaseline and sometimes triple antibiotic ointment with improvement of pain and skin breakdown. OB History Gravida3 Para2 Term0 Preterm0 AB0 Living2 SAB0 IAB0 Ectopic0 Multiple0 Live Births0 Media Developer History LMP: 10/02/2007, Postmenopausal Age at Menarche: Age at First : Age at Menopause: Media Developer History Comments: Sexual Activity: Yes; Male; Postmenopausal Contraception: Vasectomy PAST MEDICAL HISTORY Diagnosis Date Chronic fatigue syndrome Depression Dyspareunia 05/23/2012 Generalized anxiety disorder Hx of colonoscopy 01/27/2024 PER LIP NEEDS MAC AND ADULT SCOPE Mitral valve disorders(424.0) Myalgia and myositis, unspecified Obstructive sleep apnea Not treating because of cost Other kyphoscoliosis and scoliosis SPURS/VERTEBRAE Other specified iron deficiency anemias Unspecified sleep apnea PAST SURGICAL HISTORY Procedure Laterality Date ARTHRD ANT NTRBD MIN DSC EA ADDL INTERSPACE COLONOSCOPY FLX DX W/COLLJ SPEC WHEN PFRMD 10/17/2008 COLONOSCOPY SCREENING 12/05/2013 10 yr interval CORRECT BUNION,SIMPLE LEFT FOOT X 2 CRYO CAUTERY CERVIX DILATION AND CURETTAGE DXAND/THER NONOBSTETRIC Dilation AND curettage EGD TRANSORAL BIOPSY SINGLE/MULTIPLE 10/17/2008 gastritis PAST SURGICAL HISTORY OF 03/03/2001 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 FAMILY HISTORY Problem Relation Age of Onset Alzheimer's Disease Mother Coronary Artery Disease Mother 35 35 at first [place] Ischemic Heart Disease Mother Stroke Mother Coronary Artery Disease Brother 57 2 MIs Breast Cancer Maternal Grandmother Coronary Artery Disease Maternal Grandfather Ischemic Heart Disease Maternal Grandfather Stroke Maternal Grandfather Breast Cancer Paternal Grandmother Social History Tobacco Use Smoking status: Never Smokeless tobacco: Never Vaping Use Vaping status: Never Used Substance Use Topics Alcohol use: No Drug use: No Current Outpatient Medications Medication Sig amoxicillin (AMOXIL) 500 mg capsule Take 1 capsule by mouth three times a day for 10 days. venlafaxine ER (EFFEXOR XR) 150 mg 24 hr capsule Take 1 capsule by mouth two times a day. gabapentin (NEURONTIN) 400 mg capsule Take 1 capsule by mouth four times daily for 180 days. as directed TURMERIC ORAL Take 500 mg by mouth once daily. Turmeric 500mg and black pepper 5mg Zinc Gluconate 100 mg tab Take 2 tablets by mouth once daily. COQ10, UBIQUINOL, ORAL Take 1 tablet by mouth once daily. FERROUS SULFATE ORAL Take 365 mg by mouth once daily. L.acid/L.casei/B.bif/B.jose/F OS (PROBIOTIC BLEND ORAL) Take 175 mg by mouth once daily. clobetasol (TEMOVATE) 0.05 % ointment Apply 1 application to affected area two times a day. (Patient taking differently: Apply 1 application to affected area three times a week.) aspirin 81 mg cap Take by mouth. lisinopril (PRINIVIL) 10 mg tablet Take 1 tablet by mouth once daily. traMADol (ULTRAM) 50 mg tablet Take 50 mg by mouth two times a day as needed. traZODone (DESYREL) 50 mg tablet Take 0.5-1 tablets by mouth daily at bedtime. rosuvastatin (CRESTOR) 5 mg tablet Take 1 tablet by mouth daily at bedtime. diclofenac, EC, (VOLTAREN) 75 mg EC tablet Take 1 tablet by mouth two times a day. For pain/inflammation. Take with food. CPAP Initiate CPAP @ 9 cm of water with humidification. Mask (per patient preference) optional chin strap (if indicated) , filters, tubing, humidifier and lifetime supplies. fluticasone (FLONASE) 50 mcg/actuation nasal spray Use 2 Sprays in each nostril once daily. CPAP CHIN STRAP, USED WITH CPAP DEVICE glucosam sul na/chondr galvan a na(GLUCOSAMINE-CHONDROITIN 3X 750 MG-600 MG TAB) Take 1 tablet twice daily. MAGNESIUM OXIDE 500 MG TAB Take 250 mg by mouth once daily. MELATONIN 3 MG TAB Take 10 mg by mouth. nightly cholecalciferol(VITAMIN D-3 1,000 UNIT CHEWABLE TAB) Take 2 tablets daily. methylsulfonylmethane(MSM 1,000 MG TAB) 1 tablet twice daily. vitamin b complex(B COMPLEX TAB) Take by mouth. (Patient not taking: Reported on 06/19/2024) VITAMIN E 400 UNIT CAP Take one(1) tablet daily. CALCIUM 600 + D(3) 600 MG-200 UNIT TAB Take one(1) tablet twice daily. MULTIVITAMIN TAB Take one(1) tablet daily. No current fac (more content not included)... Normal [facility] CNOVon 06-19-2024 CNOV Office Visit (INTMWS ) MARTINE LANDAVERDE ([id number]) 1955 F Date Time Provider Department 06/19/24 2:00 PM ERIBERTO TOVAR INTRonnyWS During your visit today, we recorded the following information about you: Pulse Blood pressure Weight Height 74/minute 111/65 78.1 kg 1.689 m Eriberto Tovar MD 06/19/2024 3:21 PM Signed This note was created using [employer]. Subjective Martine Landaverde is a 68 year old female. HISTORY Martine Landaverde is a 68 year old lady here for pre-op evaluation as requested by Dr. Barrios. Martine Landaverde has surgery scheduled on 07/17/24 for Right TKA at [facility]. Tristian is a 68-year-old female presenting for a preoperative evaluation for a right TKA scheduled with Dr. Barrios on 07/17/2024 at [facility]. Tristian reports a history of postoperative emesis following anesthesia, but notes that with subsequent surgeries, she has not experienced this issue. She denies current chest pain, dyspnea, fevers, chills, or sinus pain/pressure. She recently had an infected tooth, which was treated last Wednesday. She denies symptoms of a bladder infection. She is currently taking amoxicillin TID for the dental infection, which she started last Wednesday and will complete on Wednesday. Her medication regimen includes calcium, baby aspirin, vitamin D, clobetasol (applied 3 times weekly), CoQ10, CPAP, diclofenac BID, iron, Flonase, gabapentin 400 mg (usually TID, occasionally QID for increased pain), glucosamine chondroitin, probiotic blend, Prinivil 10 mg daily, magnesium oxide 500 mg daily, melatonin at night, MSM, multivitamin, rosuvastatin 5 mg at bedtime, tramadol, trazodone, Effexor, and B-complex. She has temporarily discontinued the B-complex and multivitamin due to concerns about biotin affecting thyroid test results. She reports chronic constipation, managed with tramadol once daily, 3 spoons of stool softener, 6 prunes, 2 apricots, and Metamucil daily. She denies diarrhea. She also reports chronic flatulence, managed with 4 Gas-X pills before judaism, but denies eructation. She drinks one carbonated beverage daily and denies using a straw. She denies any issues with her vision. PAST MEDICAL HISTORY Diagnosis Date Chronic fatigue syndrome Depression Dyspareunia 05/23/2012 Generalized anxiety disorder Hx of colonoscopy 01/27/2024 PER LIP NEEDS MAC AND ADULT SCOPE Mitral valve disorders(424.0) Myalgia and myositis, unspecified Obstructive sleep apnea Not treating because of cost Other kyphoscoliosis and scoliosis SPURS/VERTEBRAE Other specified iron deficiency anemias Unspecified sleep apnea PAST SURGICAL HISTORY Procedure Laterality Date ARTHRD ANT NTRBD MIN DSC EA ADDL INTERSPACE COLONOSCOPY FLX DX W/COLLJ SPEC WHEN PFRMD 10/17/2008 COLONOSCOPY SCREENING 12/05/2013 10 yr interval CORRECT BUNION,SIMPLE LEFT FOOT X 2 CRYO CAUTERY CERVIX DILATION AND CURETTAGE DXAND/THER NONOBSTETRIC Dilation AND curettage EGD TRANSORAL BIOPSY SINGLE/MULTIPLE 10/17/2008 gastritis PAST SURGICAL HISTORY OF 03/03/2001 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 ALLERGIES Allergen Reactions Sulfa (Sulfonamide * Hives Current Outpatient Medications Medication Sig venlafaxine ER (EFFEXOR XR) 150 mg 24 hr capsule Take 1 capsule by mouth two times a day. gabapentin (NEURONTIN) 400 mg capsule Take 1 capsule by mouth four times daily for 180 days. as directed TURMERIC ORAL Take 500 mg by mouth once daily. Turmeric 500mg and black pepper 5mg Zinc Gluconate 100 mg tab Take 2 tablets by mouth once daily. COQ10, UBIQUINOL, ORAL Take 1 tablet by mouth once daily. FERROUS SULFATE ORAL Take 365 mg by mouth once daily. L.acid/L.casei/B.bif/B.jose/F OS (PROBIOTIC BLEND ORAL) Take 175 mg by mouth once daily. clobetasol (TEMOVATE) 0.05 % ointment Apply 1 application to affected area two times a day. (Patient taking differently: Apply 1 application to affected area three times a week.) aspirin 81 mg cap Take by mouth. lisinopril (PRINIVIL) 10 mg tablet Take 1 tablet by mouth once daily. traMADol (ULTRAM) 50 mg tablet Take 50 mg by mouth two times a day as needed. traZODone (DESYREL) 50 mg tablet Take 0.5-1 tablets by mouth daily at bedtime. rosuvastatin (CRESTOR) 5 mg tablet Take 1 tablet by mouth daily at bedtime. diclofenac, EC, (VOLTAREN) 75 mg EC tablet Take 1 tablet by mouth two times a day. For pain/inflammation. Take with food. CPAP Initiate CPAP @ 9 cm of water with humidification. Mask (per patient preference) optional chin strap (if indicated) , filters, tubing, humidifier and lifetime supplies. fluticasone (FLONASE) 50 mcg/actuation nasal spray Use 2 Sprays in each nostril once daily. CPAP CHIN STRAP, USED WITH CPAP DEVICE glucosam sul na/chondr galvan a na(GLUCOSAMINE-CHONDROITIN 3X 750 MG-600 MG TAB) Take 1 tablet twice daily. MAGNESIUM OXIDE 500 MG TAB Take 2 (more content not included)... Normal [facility] MR/BMS.BPon 05-23-2024 MR/BMS.BP [address], [address] [place] [address] OFFICE VISIT Date of Service: 05/22/24 MR#: [id number] Acct: [id number] Name: MARTINE LANDAVERDE Rep #: [id number] : 1955 Provider: [facility] Justine rubio Age/Sex: 68/F Location: [facility] [place].BP Status: Signed Intake Vital Signs 10/01/23 06:46 05/05/24 17:33 05/23/24 07:04 Height 5 ft 7 in 5 ft 7 in 5 ft 7 in BP Intake Visit Reasons: follow up Allergies Sulfa (Sulfonamide Antibiotics) Allergy (Verified 09/24/23 09:13) Hives Have you fallen in the past year?: No PFSH Medical History (Updated 05/05/24 @ 17:30 by Justine Romano [facility]) Post-menopausal Depression Anxiety Arthritis Anemia High cholesterol Back pain Injury of back Injury of head and neck Non-smoker CPAP (continuous positive airway pressure) dependence History of pain when walking Cardiology follow-up encounter History of echocardiogram History of stress test Hypertension Surgical History History of esophagogastroduodenoscopy (EGD) Hx of colonoscopy Hx of left cataract extraction Hx of right cataract extraction Hx of spinal surgery Hx of thumb surgery History of bunionectomy of right great toe Hx of ovarian cystectomy Hx of cervical spine surgery Hx of hand surgery History of bunionectomy of left great toe History of bunionectomy of left great toe Family History Mother Heart disease Social History household members: spouse Smoking Status: Never smoker HPI History of Present Illness HPI: Martine Landaverde is a 68 year-old female returning for therapy. She discussed ambivalence related to her marriage and how she has been impacted by her 's behaviors throughout their marriage. Martine discussed reasons she has remained in the marriage despite his treatment. She reported that recent interactions between them have been positive. Encouraged verbalization of emotions while providing support. Normalized emotions. Discussed strategy of working around someone's antagonistic behaviors if choosing to remain in a relationship reinforcing her efforts to do so. Provided additional psychoeducation. Discussed upcoming knee surgery and historically limited assistance from when she has had surgeries. Explored how she has managed previously identifying what has and has not been effective. Problem solved options for managing. No reports of SI. Future-oriented. Exam Mental Status Exam - Psych Appearance casually dressed and well kempt Attitude cooperative, calm, engaged, pleasant and friendly Activity/Motor Behavior appropriate eye contact (appeared due to pain issues) and fidgeting Speech regular rate, regular volume and regular prosody Mood euythmic Affect full range Thought Process linear, logical and coherent Thought Content no delusions and no hallucinations Suicidal Ideation none Homicidal Ideation none Attention intact Concentration intact Sensorium/Orientation awake, alert and oriented x3 Memory/Cognition intact Insight good Judgement good Assessment Plan Assessment Plan (1) Anxiety: Plan: therapy using CBT, DBT, and ACT interventions to address thought patterns contributing to anxious symptoms and to teach coping skills. Psychiatric services to monitor anxious symptoms and medication effectiveness. (2) Depression: Plan: therapy using CBT, DBT, and ACT interventions to address thought patterns contributing to depressive symptoms and teach coping skills. Continued psychiatric services to monitor depressive symptoms and medication effectiveness. Pt. to call 911, call suicide prevention hotline, or go to ER if experiencing suicidal ideation with plan and intent and/or feel unable to ensure own safety. Plan TREATMENT PLAN (04/07/2024) Goal 1 - Will eliminate or reduce level of anxiety and other negative emotions related to traumatic experiences in relationship AEB by pt.'s report of symptom reduction. Objective 1 - Participate in cognitive therapy to help identify, challenge, and replace biased, negative, and self-defeating thoughts resulting from relationship experiences and interactions. Intervention 1 - Using cognitive therapy techniques, explore self-talk and beliefs about self, others and world; teach thinking distortions; and explore alternative thinking . Objective 2 - Verbalize insight into how relationship may be influencing current experiences with anxiety and other negative emotions. Intervention 1 - Help pt. increase insight into the role relational pattern may be influencing current vulnerabilities to anxiety and other negative emotions; identify core conflictual themes; and d (more content not included)... Normal [facility] VALENTE SCREENING W TOMOon 05-05 VALENTE SCREENING W MUNA * * *Final Report* * * DATE OF EXAM: May 05 2024 11:32AM VANESSAW 0582 - VALNETE SCREENING W MUNA / PROCEDURE REASON: * * * * Physician Interpretation * * * * RESULT: [address] [address] [place] [address] #[id number] - VALENTE SCREENING W MUNA HISTORY: 68 year-old patient seen for screening and is asymptomatic in both breasts. Patient states no personal history of breast cancer. Patient states no personal history of other cancers. COMPARISON STUDIES: The present examination has been compared to prior imaging studies dated 02/09/2018 (mammogram), 04/15/2020 (mammogram), 04/02/2021 (mammogram) and 06/25/2022 (mammogram). MAMMOGRAM TECHNIQUE: The study was acquired using full field digital technology and interpreted from soft copy. Digital Breast Tomosynthesis (DBT) images were obtained and used to assist in the interpretation of this examination. MAMMOGRAM FINDINGS: The breasts are heterogeneously dense, which may obscure small masses. No suspicious masses, calcifications or other abnormalities are seen in either breast. There are no significant interval changes. IMPRESSION: There is no mammographic evidence of malignancy in either breast. Routine screening mammogram is recommended. Annual mammogram will be due in 1 year. BI-RADS Category 1: Negative RISK: Based on the Tyrer-Cuzick (TC) risk assessment model, this patient has a 4.8% lifetime risk of developing breast cancer, meaning they are at average risk for developing breast cancer. However, this is only an estimate based on available history provided on the patient's questionnaire. We encourage all patients to talk with their providers about these results, further recommendations for managing breast health, and appropriate supplemental screening options if the patient has dense breast tissue. Interpreting Radiologist: Kala Garcia M.D. Electronically signed on: 05/06/2024 [employer] Driver: DEJAH Transcribe Date/Time: May 05 2024 11:22A Dictated by: KALA GARCIA MD This examination was interpreted and the report reviewed and electronically signed by: KALA GARCIA MD on May 06 2024 7:09AM EST [id number] Normal [facility] MR/BMS.BPon 05-05-2024 MR/BMS.BP [address], [address] [place] [address] OFFICE VISIT Date of Service: 05/05/24 MR#: [id number] Acct: [id number] Name: MARTINE LANDAVERDE Rep #: [id number] : 1955 Provider: [facility] Justine rubio Age/Sex: 68/F Location: [facility] [place].BP Status: Signed Intake Vital Signs 10/01/23 06:46 04/20/24 10:48 05/05/24 17:33 Height 5 ft 7 in 5 ft 7 in 5 ft 7 in BP Intake Visit Reasons: follow up Allergies Sulfa (Sulfonamide Antibiotics) Allergy (Verified 09/24/23 09:13) Hives Have you fallen in the past year?: No PFSH Medical History (Updated 05/05/24 @ 17:30 by Justine Romano [facility]) Post-menopausal Depression Anxiety Arthritis Anemia High cholesterol Back pain Injury of back Injury of head and neck Non-smoker CPAP (continuous positive airway pressure) dependence History of pain when walking Cardiology follow-up encounter History of echocardiogram History of stress test Hypertension Surgical History History of esophagogastroduodenoscopy (EGD) Hx of colonoscopy Hx of left cataract extraction Hx of right cataract extraction Hx of spinal surgery Hx of thumb surgery History of bunionectomy of right great toe Hx of ovarian cystectomy Hx of cervical spine surgery Hx of hand surgery History of bunionectomy of left great toe History of bunionectomy of left great toe Family History Mother Heart disease Social History household members: spouse Smoking Status: Never smoker HPI History of Present Illness HPI: Martine Landaverde is a 68 year-old female returning for therapy. She reported recent increased positive interactions with but anxiety as these do not last. Martine discussed anxiety and trying hard to not set him off. She discussed long-term impact of his behaviors on her, impact of his behaviors on her daughters, and ambivalence about remaining in the marriage. Encouraged verbalization of emotions while providing support. Worked on utilization of support and coping. Martine is planning on having a knee replacement in 07/2024. No reports of SI. Future-oriented. Exam Mental Status Exam - Psych Appearance casually dressed and well kempt Attitude cooperative, engaged and pleasant Activity/Motor Behavior appropriate eye contact (Due to body pain.) and fidgeting Speech regular volume, regular prosody and rapid Mood anxious Affect anxious Thought Process linear, logical, coherent and goal directed Thought Content no delusions, no hallucinations and ruminations (Related to 's behaviors.) Suicidal Ideation none Homicidal Ideation none Attention intact Concentration intact Sensorium/Orientation alert and oriented x3 Memory/Cognition intact Insight good Judgement good Assessment Plan Assessment Plan (1) Anxiety: Plan: therapy using CBT, DBT, and ACT interventions to address thought patterns contributing to anxious symptoms and to teach coping skills. . (2) Depression: Plan: therapy using CBT, DBT, and ACT interventions to address thought patterns contributing to depressive symptoms and teach coping skills. Pt. to call 911, call suicide prevention hotline, or go to ER if experiencing suicidal ideation with plan and intent and/or feel unable to ensure own safety. Plan TREATMENT PLAN (04/07/2024) Goal 1 - Will eliminate or reduce level of anxiety and other negative emotions related to traumatic experiences in relationship AEB by pt.'s report of symptom reduction. Objective 1 - Participate in cognitive therapy to help identify, challenge, and replace biased, negative, and self-defeating thoughts resulting from relationship experiences and interactions. Intervention 1 - Using cognitive therapy techniques, explore self-talk and beliefs about self, others and world; teach thinking distortions; and explore alternative thinking . Objective 2 - Verbalize insight into how relationship may be influencing current experiences with anxiety and other negative emotions. Intervention 1 - Help pt. increase insight into the role relational pattern may be influencing current vulnerabilities to anxiety and other negative emotions; identify core conflictual themes; and develop effective coping and self-care. Visit Details Duration of visit (minutes): 60 Duration of counseling (minutes): 60 Total time (minutes): 60 Type of visit: psychotherapy and [id number]-kcia Clinical Quality Measures Falls Risk Screening/Assistive Devices Have you fallen in the past year?: No [place] [address] PSYTX W PT 60 MINUTES Patient Type Established Diagnoses Anxiety F41.9 Depression F32.A (more content not included)... Normal [facility] Magnesium SerPl-mCncon 05-02 Magnesium [Mass/Vol] 2.4 mg/dL High 1.7-2.3 [facility] Comment on above: Order Comment: Speci men Type: BLOOD SPECIMENOrdering Facility: [facility] Address: [address] [place] [address] Performed By: #### 1 9123-9 ####[facility] [id number] [place] [address] [place] T3Free SerPl-mCncon 05-02-19 25 Free T3 [Mass/Vol] 3.3 pg/mL Normal 2.3-4.1 [facility] Comment on above: Order Comment: Speci men Type: BLOOD SPECIMENOrdering Facility: [facility] Address: [address] [place] [address] Performed By: #### 2 132-9, 3016-3, 3051-0, 3024-7 ####[facility] LABCLIA [id number] [facility] [id number] [address] [place] T4 Free SerPl-mCncon 025 Free T4 [Mass/Vol] 1.2 ng/dL Normal 0.9-1.7 [facility] Comment on above: Order Comment: Speci men Type: BLOOD SPECIMENOrdering Facility: [facility] Address: [address] [place] [address] Performed By: #### 2 132-9, 3016-3, 3051-0, 3024-7 ####[facility] LABCLIA [id number] [place] [address] [place] TSH SerPl-aCncon 05-02-2024 TSH Qn 1.150 m[IU]/L Normal 0.270-4.200 [facility] Comment on above: Order Comment: Speci men Type: BLOOD SPECIMENOrdering Facility: [facility] Address: [address] [place] [address] Performed By: #### 2 132-9, 3016-3, 3051-0, 3027 ####[facility] LABCLIA [id number] [place] [address] [place] Vit B12 SerPl-mCncon 025 Cobalamin (Vitamin B12) [Mass/Vol] 738 pg/mL Normal 232-1245 [facility] Comment on above: Order Comment: Speci men Type: BLOOD SPECIMENOrdering Facility: [facility] Address: [address] [place] [address] Performed By: #### 2 132-9, 3016-3, 305-0, 3027 ####[facility] LABIA [id number] [place] [id number] [place] MR/BMS.Terry 04-20-2024 MR/BMS. [address], [address] [place] [address] OFFICE VISIT Date of Service: 04/14/24 MR#: [id number] Acct: [id number] Name: MARTINE LANDAVERDE Rep #: [id number] : 1955 Provider: [facility] Justine rubio Age/Sex: 68/F Location: [facility] [place].BP Status: Signed Intake Vital Signs 10/01/23 06:46 03/28/24 11:49 04/20/24 10:48 Height 5 ft 7 in 5 ft 7 in 5 ft 7 in BP Intake Visit Reasons: follow up Allergies Sulfa (Sulfonamide Antibiotics) Allergy (Verified 09/24/23 09:13) Hives Have you fallen in the past year?: No PFSH Medical History Post-menopausal Depression Anxiety Arthritis Anemia High cholesterol Back pain Injury of back Injury of head and neck Non-smoker CPAP (continuous positive airway pressure) dependence History of pain when walking Cardiology follow-up encounter History of echocardiogram History of stress test Hypertension Surgical History History of esophagogastroduodenoscopy (EGD) Hx of colonoscopy Hx of left cataract extraction Hx of right cataract extraction Hx of spinal surgery Hx of thumb surgery History of bunionectomy of right great toe Hx of ovarian cystectomy Hx of cervical spine surgery Hx of hand surgery History of bunionectomy of left great toe History of bunionectomy of left great toe Family History Mother Heart disease Social History household members: spouse Smoking Status: Never smoker HPI History of Present Illness HPI: Pt. is a 68 year-old female returning for therapy. She reported that has been addressing his childhood trauma and has been loving and supportive of her. This has resulted in increased positive emotions for him and in general. Pt. identified some struggles with reduced strength and difficulty completing household tasks. Encouraged verbalization of emotions while providing support. Normalized emotions. Pt. discussed childhood experiences that made her vulnerable to relationship with her , which has historically been a very difficult relationship. She identified similarities between her sister and and ongoing stressors in her and her brother's interactions with their sister. Worked on coping and self-care. Also explored 's patterns as he can revert to emotionally abusive behaviors after being kind. No SI. Future-oriented. Exam Mental Status Exam - Psych Appearance casually dressed and adequately groomed Attitude cooperative, engaged and pleasant Activity/Motor Behavior MSE activity/motor behavior finding no adventitious movements and appropriate eye contact Speech regular rate, regular volume and regular prosody Mood euythmic Affect full range Thought Process linear, logical, coherent and goal directed Thought Content no delusions and no hallucinations Suicidal Ideation none Homicidal Ideation none Attention intact Concentration intact Sensorium/Orientation alert and oriented x3 Memory/Cognition intact Insight good Judgement good Assessment Plan Assessment Plan (1) Anxiety disorder, unspecified: Plan: therapy using CBT, DBT, and ACT interventions to address thought patterns contributing to anxious symptoms and to teach coping skills. Psychiatric services to monitor anxious symptoms and medication effectiveness. (2) Major depressive disorder: Plan: therapy using CBT, DBT, and ACT interventions to address thought patterns contributing to depressive symptoms and teach coping skills. Continued psychiatric services to monitor depressive symptoms and medication effectiveness. Pt. to call 911, call suicide prevention hotline, or go to ER if experiencing suicidal ideation with plan and intent and/or feel unable to ensure own safety. Plan TREATMENT PLAN (04/14/2024) Goal 1 - Will increase confidence in ability to manage difficult emotions AEB pt. self-report of progress in this area. Objective 1 -Reduce frequency of maladaptive thoughts and feelings interfering with quality of life and contributing to painful emotions. Intervention 1- Teach at least 3 skills in each of the following areas: emotional regulation; distress tolerance; interpersonal effectiveness; and mindfulness. Goal 2 - Will eliminate or reduce the negative impact of marital relationship has on emotional functioning AEB pt. self-report of progress in this area. Objective 1 - Participate in cognitive therapy to reduce impact of marital relationship and marital stressors. Intervention 1 - Teach pt. relationship between thoughts, feelings, and behaviors associated with traumatic event and assist pt. in recognizing and jamie (more content not included)... Normal [facility] MR/BMSon 03-28-2024 MR/BMS. [address], [address] [place] [id number] OFFICE VISIT Date of Service: 03/23/24 MR#: [id number] Acct: [id number] Name: MARTINE LANDAVERDE Rep #: [id number] : 1955 Provider: [facility] Justineleland rubio Age/Sex: 68/F Location: [facility] [place].BP Status: Signed Intake Vital Signs 10/01/23 06:46 03/28/24 11:49 Height 5 ft 7 in 5 ft 7 in BP Intake Visit Reasons: Continuing Care Allergies Sulfa (Sulfonamide Antibiotics) Allergy (Verified 09/24/23 09:13) Hives Have you fallen in the past year?: No PFSH Medical History Post-menopausal Depression Anxiety Arthritis Anemia High cholesterol Back pain Injury of back Injury of head and neck Non-smoker CPAP (continuous positive airway pressure) dependence History of pain when walking Cardiology follow-up encounter History of echocardiogram History of stress test Hypertension Surgical History History of esophagogastroduodenoscopy (EGD) Hx of colonoscopy Hx of left cataract extraction Hx of right cataract extraction Hx of spinal surgery Hx of thumb surgery History of bunionectomy of right great toe Hx of ovarian cystectomy Hx of cervical spine surgery Hx of hand surgery History of bunionectomy of left great toe History of bunionectomy of left great toe Family History Mother Heart disease Social History household members: spouse Smoking Status: Never smoker HPI History of Present Illness HPI: Pt. is a 68 year-old female who participated in a diagnostic assessment to begin BH therapy. She was referred to [facility] for counseling by her previous therapist Hannah Abdul who retired. She reports depressive and anxious symptoms for which she is prescribed Venlafaxine. Pt. reports having been since 16 with her having a long history of antagonistic behaviors. Several times, she has contemplated leaving the marriage, which continues to cause a high level of emotional pain for her. Other previous counseling has been with Sh[facility] Richmond where she was diagnosed with Dissociative Disorder, which her most recent counselor ruled out. Pt. has struggled to verbalize her thoughts and feelings. She states she had made progress stating I got a voice. She identifies feeling unimportant, unloved, and invisible in the marriage. She states her experienced significant childhood trauma, which has impacted his ability to be supportive and nurturing. In 2013, she informed her that she previously had several affairs. He presents well outside the home. Others are often unaware or surprised of his behaviors in the home. Pt. reports feeling exhausted and is uncertain if this is due to being anemic. She struggles to make myself do things. Pt. has often coped with difficulty by sleeping. Previous similar episode: Yes Developmental History Developmental History: Pt. is the oldest of 3 children born to her parents with a younger brother and sister. 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 Her father was a feliz who also worked 12 hours daily in a factory. Her mother was frequently ill and of a heart attack at age 35. Her paternal grandparents often put her mother down. Pt.'s yue is important to her she currently is actively involved in a [employer] judaism. Prior to this, she attended a Religion judaism. Much of her social time involves judaism activities. Pt. and her when she was 16 and he was 18. The marriage has been very difficult for her. They have 2 daughters who are currently 51 and 47 years old and a grandson who is 11. Pt. took care of her grandson for the first five years of his life. 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 Her is a former cop examiner. Pt. and recently moved to a condo requiring less upkeep. She states that she does the majority of the household tasks. Pt. reports having fibromyalgia, a back implant, bone spurs, scoliosis, back pain, and problems with her knee, feet, and toes. She denies any legal problems or substance use. Psychiatric History Previous psychiatric treatment history: No Previous psychiatric diagnoses: depression, anxiety, dissociative disorder Previous psychiatric treatment programs: none Suicidal Ideation Current: No Past: Yes History of suicide attempt: No Suicide Risk Assessment Suicide risk factors: depression, trauma history and physical illness/pain Suicide protective factors: connected to treatment, future looking, responsibility for family, family support, social support and spirituality Self Injurious Behavior Current: none Past: none Violent Behavior (more content not included)... [facility] CNOVon 03-14-2024 CNOV Office Visit (INTMWS ) MARTINE LANDAVERDE ([id number]) 1955 F Date Time Provider Department 03/14/24 3:20 PM ERIBERTO TOVAR INTMWS During your visit today, we recorded the following information about you: Temperature Pulse Respiration Blood pressure 98 degrees 81/minute 16/minute 118/68 Weight 75.7 kg Eriberto Tovar MD 03/14/2024 4:44 PM Signed This note was created using [employer]. Subjective Martine Landaverde is a 68 year old female. Patient presents with: F/U 6 months SUBJECTIVE: Martine Landaverde is a 68 year old year old lady here today for 6 month follow up appointment for review of medical conditions. Martine Landaverde is a 68-year-old female with a history of hypercholesterolemia, presenting for a 6-month follow-up. Martine reports recent lab results showing elevated magnesium and vitamin B levels. She has since discontinued her B-complex supplement and reduced her magnesium intake to 250 mg at bedtime. She is also taking calcium supplements. Martine reports a recent anal fissure, which she attributes to insufficient magnesium intake and is now taking a stool softener. She reports experiencing heat intolerance and excessive sweating, particularly on her forehead, over the past few months. 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 She is unable to wear socks or heavy clothing due to the heat. She denies sweating on her feet or hands. Martine also reports unintentional weight loss and persistent fatigue, despite getting good sleep with the help of trazodone. She denies taking any thyroid supplements. Martine reports a recent colonoscopy that was incomplete due to inadequate bowel preparation, despite following the instructions. She is scheduled for a repeat colonoscopy next year and is concerned about having to discontinue diclofenac for 5 days, which she finds painful. Martine also reports a right knee replacement surgery scheduled for July 17 at [facility]. She has declined further COVID-19 vaccinations but has received her flu shot. Martine is due for a mammogram and plans to schedule it soon. She is also seeing a new counselor on March 23. PAST MEDICAL HISTORY Diagnosis Date Chronic fatigue syndrome Depression Dyspareunia 05/23/2012 Generalized anxiety disorder Hx of colonoscopy 01/27/2024 PER LIP NEEDS MAC AND ADULT SCOPE Mitral valve disorders(424.0) Myalgia and myositis, unspecified Obstructive sleep apnea Not treating because of cost Other kyphoscoliosis and scoliosis SPURS/VERTEBRAE Other specified iron deficiency anemias Unspecified sleep apnea Current Outpatient Medications Medication Sig TURMERIC ORAL Take 500 mg by mouth once daily. Turmeric 500mg and black pepper 5mg Zinc Gluconate 100 mg tab Take 2 tablets by mouth once daily. COQ10, UBIQUINOL, ORAL Take 1 tablet by mouth once daily. FERROUS SULFATE ORAL Take 365 mg by mouth once daily. L.acid/L.casei/B.bif/B.jose/F OS (PROBIOTIC BLEND ORAL) Take 175 mg by mouth once daily. clobetasol (TEMOVATE) 0.05 % ointment Apply 1 application to affected area two times a day. aspirin 81 mg cap Take by mouth. lisinopril (PRINIVIL) 10 mg tablet Take 1 tablet by mouth once daily. tiZANidine (ZANAFLEX) 4 mg tablet TAKE 1 TABLET BY MOUTH AT BEDTIME, MAY TAKE DOSE DURING THE DAY NEEDED traMADol (ULTRAM) 50 mg tablet Take 50 mg by mouth two times a day as needed. traZODone (DESYREL) 50 mg tablet Take 0.5-1 tablets by mouth daily at bedtime. rosuvastatin (CRESTOR) 5 mg tablet Take 1 tablet by mouth daily at bedtime. diclofenac, EC, (VOLTAREN) 75 mg EC tablet Take 1 tablet by mouth two times a day. For pain/inflammation. Take with food. gabapentin (NEURONTIN) 400 mg capsule Take 1 capsule by mouth four times daily for 180 days. as directed venlafaxine ER (EFFEXOR XR) 150 mg 24 hr capsule Take 1 capsule by mouth two times a day. CPAP Initiate CPAP @ 9 cm of water with humidification. Mask (per patient preference) optional chin strap (if indicated) , filters, tubing, humidifier and lifetime supplies. fluticasone (FLONASE) 50 mcg/actuation nasal spray Use 2 Sprays in each nostril once daily. (Patient taking differently: Use 2 Sprays in each nostril as needed.) CPAP CHIN STRAP, USED WITH CPAP DEVICE glucosam sul na/chondr galvan a na(GLUCOSAMINE-CHONDROITIN 3X 750 MG-600 MG TAB) Take 1 tablet twice daily. MAGNESIUM OXIDE 500 MG TAB Take 250 mg by mouth once daily. MELATONIN 3 MG TAB Take 10 mg by mouth. nightly cholecalciferol(VITAMIN D-3 1,000 UNIT CHEWABLE TAB) Take 2 tablets daily. methylsulfonylmethane(MSM 1,000 MG TAB) 1 tablet twice daily. VITAMIN E 400 UNIT CAP Take one(1) tablet daily. CALCIUM 600 + D(3) 600 MG-200 UNIT TAB Take one(1) tablet twice daily. MULTIVITAMIN TAB Take one(1) tablet daily. vitamin b complex(B COMPLE (more content not included)... Normal [facility] 03-10-2024 [facility] Telephone (INTMWS) MARTINE LANDAVERDE ([id number]) 1955 F Date Time Provider Department 03/10/24 ERIBERTO TOVAR INTWS During your visit today, we recorded the following information about you: Manda Welch, KILEY 03/10/2024 12:03 PM Signed Patient calls to report that since magnesium was elevated at 2.5 on 02/28/2024. Thought it was contributing to heat intolerance and instructed to reduce dosage she is now having trouble with constipation that is causing her Lichen sclerosus to act up with some soreness and tearing around the rectum when she bears down . Patient is asking since reducing magnesium, Could she increase metamucil to two scoops or twice daily? Patient is treated with clobetasol and SHARI through [facility] [facility] for the Lichen sclerosus. Reviewed care advice. Patient has glycerin suppositories at home as well. Recommended she try one of those if she continues to have trouble that is causing pressure and skin issues. Patient also drinking increased water and walking as much as she can but area is rather painful. Patient requests call back at [phone] KILEY Payan Terri, APRN.OPERATOR HELPER 03/10/2024 12:24 PM Signed What did she reduce magnesium to? Med list shows Mag oxide 500 mg BID. If just taking one per day she can increase to 1.5 per day. For constipation recommend sufficient fluids, increased fiber intake, can add Miralax once or twice daily as needed for constipation. Use clobetasol cream BID. Route back if needed Radha Han LPN 03/10/2024 3:56 PM Signed Patient notified of providers message and verbalized understanding Allergies As of Date: 03/10/2024 Noted Allergy Reaction SULFA (SULFONAMIDE ANTIBIOTICS) 12/05/2004 4 - Hives Date Reviewed: 02/28/2024 Reviewed by: Richy Dominguez APRN.BODY TEAM MEMBER - Fully Assessed Reason for Visit: Patient Question [3212] Prescriptions as of 03/10/2024 - clobetasol (TEMOVATE) 0.05 % ointment Apply 1 application to affected area two times a day. - aspirin 81 mg cap Take by mouth. - lisinopril (PRINIVIL) 10 mg tablet Take 1 tablet by mouth once daily. - tiZANidine (ZANAFLEX) 4 mg tablet TAKE 1 TABLET BY MOUTH AT BEDTIME, MAY TAKE DOSE DURING THE DAY NEEDED - traMADol (ULTRAM) 50 mg tablet Take 50 mg by mouth two times a day as needed. - traZODone (DESYREL) 50 mg tablet Take 0.5-1 tablets by mouth daily at bedtime. - rosuvastatin (CRESTOR) 5 mg tablet Take 1 tablet by mouth daily at bedtime. - diclofenac, EC, (VOLTAREN) 75 mg EC tablet Take 1 tablet by mouth two times a day. For pain/inflammation. Take with food. - gabapentin (NEURONTIN) 400 mg capsule Take 1 capsule by mouth four times daily for 180 days. as directed - venlafaxine ER (EFFEXOR XR) 150 mg 24 hr capsule Take 1 capsule by mouth two times a day. - CPAP Initiate CPAP @ 9 cm of water with humidification. Mask (per patient preference) optional chin strap (if indicated) , filters, tubing, humidifier and lifetime supplies. - fluticasone (FLONASE) 50 mcg/actuation nasal spray Use 2 Sprays in each nostril once daily. - CPAP CHIN STRAP, USED WITH CPAP DEVICE - glucosam sul na/chondr galvan a na(GLUCOSAMINE-CHONDROITIN 3X 750 MG-600 MG TAB) Take 1 tablet twice daily. - MAGNESIUM OXIDE 500 MG TAB Take 1 tablet twice daily. - MELATONIN 3 MG TAB Take 10 mg by mouth. nightly - cholecalciferol(VITAMIN D-3 1,000 UNIT CHEWABLE TAB) Take 2 tablets daily. - methylsulfonylmethane(MSM 1,000 MG TAB) 1 tablet twice daily. - vitamin b complex(B COMPLEX TAB) Take one(1) tablet daily. - VITAMIN E 400 UNIT CAP Take one(1) tablet daily. - CALCIUM 600 + D(3) 600 MG-200 UNIT TAB Take one(1) tablet twice daily. - MULTIVITAMIN TAB Take one(1) tablet daily. Problem List As Of Date 03/10/2024 Noted Resolved Fibromyalgia [M79.7] 06/01/2008 Pain in joint, multiple sites [M25.50] 06/01/2008 01/17/2015 INSOMNIA NOS [G47.00] 06/01/2008 Chronic fatigue [R53.82] 06/01/2008 Other and unspecified hyperlipidemia [E78.5] 06/01/2008 12/22/2012 Recurrent major depressive disorder, in partial*06/01/2008 07/13/2023 ANEMIA NOS [D64.9] 06/01/2008 DISC DEGENERATION NOS [[id number]] 06/04/2008 Unspecified sleep apnea [G47.30] 07/31/2008 02/25/2016 Periodic limb movement disorder [G47.61] 09/12/2008 02/25/2016 Acute gastritis with hemorrhage [K29.01] 10/17/2008 04/30/2017 Contact dermatitis and other eczema, due to uns*02/14/2009 01/17/2015 Xerosis cutis [L85.3] 02/14/2009 01/17/2015 Sun-damaged skin [L57.8] 02/14/2009 01/17/2015 Lentigo [L81.4] 02/14/2009 01/17/2015 Melanocytic nevus of trunk [D22.5] 02/14/2009 02/25/2016 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 Normal [facility] 03-01-2024 CNPN Telephone (INTMWS) MARTINE LANDAVERDE ([id number]) 1955 F Date Time Provider Department 03/01/24 ERIBERTO TOVAR INTWS During your visit today, we recorded the following information about you: Rossy Mendoza LPN 03/01/2024 4:09 PM Signed Doe Obando (unsure of spelling) called form [facility] Chemistry lab with a correction on the Free T3. It was resulted as 6.1 but the corrected result is 5.4. Merly Izquierdo APRN.CHERIE 03/08/2024 2:20 PM Signed Noted Merly Izquierdo APRN.CNP Allergies As of Date: 03/01/2024 Noted Allergy Reaction SULFA (SULFONAMIDE ANTIBIOTICS) 12/05/2004 4 - Hives Date Reviewed: 02/28/2024 Reviewed by: Richy Dominguez APRN.CNP - Fully Assessed Reason for Visit: Results [95] Prescriptions as of 03/08/2024 - clobetasol (TEMOVATE) 0.05 % ointment Apply 1 application to affected area two times a day. - aspirin 81 mg cap Take by mouth. - lisinopril (PRINIVIL) 10 mg tablet Take 1 tablet by mouth once daily. - tiZANidine (ZANAFLEX) 4 mg tablet TAKE 1 TABLET BY MOUTH AT BEDTIME, MAY TAKE DOSE DURING THE DAY NEEDED - traMADol (ULTRAM) 50 mg tablet Take 50 mg by mouth two times a day as needed. - traZODone (DESYREL) 50 mg tablet Take 0.5-1 tablets by mouth daily at bedtime. - rosuvastatin (CRESTOR) 5 mg tablet Take 1 tablet by mouth daily at bedtime. - diclofenac, EC, (VOLTAREN) 75 mg EC tablet Take 1 tablet by mouth two times a day. For pain/inflammation. Take with food. - gabapentin (NEURONTIN) 400 mg capsule Take 1 capsule by mouth four times daily for 180 days. as directed - venlafaxine ER (EFFEXOR XR) 150 mg 24 hr capsule Take 1 capsule by mouth two times a day. - CPAP Initiate CPAP @ 9 cm of water with humidification. Mask (per patient preference) optional chin strap (if indicated) , filters, tubing, humidifier and lifetime supplies. - fluticasone (FLONASE) 50 mcg/actuation nasal spray Use 2 Sprays in each nostril once daily. - CPAP CHIN STRAP, USED WITH CPAP DEVICE - glucosam sul na/chondr galvan a na(GLUCOSAMINE-CHONDROITIN 3X 750 MG-600 MG TAB) Take 1 tablet twice daily. - MAGNESIUM OXIDE 500 MG TAB Take 1 tablet twice daily. - MELATONIN 3 MG TAB Take 10 mg by mouth. nightly - cholecalciferol(VITAMIN D-3 1,000 UNIT CHEWABLE TAB) Take 2 tablets daily. - methylsulfonylmethane(MSM 1,000 MG TAB) 1 tablet twice daily. - vitamin b complex(B COMPLEX TAB) Take one(1) tablet daily. - VITAMIN E 400 UNIT CAP Take one(1) tablet daily. - CALCIUM 600 + D(3) 600 MG-200 UNIT TAB Take one(1) tablet twice daily. - MULTIVITAMIN TAB Take one(1) tablet daily. Problem List As Of Date 03/01/2024 Noted Resolved Fibromyalgia [M79.7] 06/01/2008 Pain in joint, multiple sites [M25.50] 06/01/2008 01/17/2015 INSOMNIA NOS [G47.00] 06/01/2008 Chronic fatigue [R53.82] 06/01/2008 Other and unspecified hyperlipidemia [E78.5] 06/01/2008 12/22/2012 Recurrent major depressive disorder, in partial*06/01/2008 07/13/2023 ANEMIA NOS [D64.9] 06/01/2008 DISC DEGENERATION NOS [[id number]] 06/04/2008 Unspecified sleep apnea [G47.30] 07/31/2008 02/25/2016 Periodic limb movement disorder [G47.61] 09/12/2008 02/25/2016 Acute gastritis with hemorrhage [K29.01] 10/17/2008 04/30/2017 Contact dermatitis and other eczema, due to uns*02/14/2009 01/17/2015 Xerosis cutis [L85.3] 02/14/2009 01/17/2015 Sun-damaged skin [L57.8] 02/14/2009 01/17/2015 Lentigo [L81.4] 02/14/2009 01/17/2015 Melanocytic nevus of trunk [D22.5] 02/14/2009 02/25/2016 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] 02/14/2009 01/17/2015 Bunion [M21.619] 12/10/2009 Symptomatic menopausal or female climacteric st*01/12/2012 02/25/2016 Dyspareunia [[id number]] 05/23/2012 Change in bowel habits [R19.4] 11/23/2013 02/25/2016 GERD (gastroesophageal reflux disease) [K21.9] 11/23/2013 04/30/2017 Obstructive sleep apnea [G47.33] Generalized anxiety disorder [F41.1] 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.*07/13/2023 Screen for colon cancer [Z12.11] 01/27/2024 Encounter Status:Closed by MERLY IZQUIERDO on 03/08/24 Normal [facility] 25-hydroxyvitamin D3 [Mass/Vol] 50.4 ng/mL Normal 31.0-80.0 [facility] Comment on above: Order Comment: Speci men Type: BLOOD SPECIMENOrdering Facility: [facility] Address: [address] [place] [address] Performed By: #### 1 [id number] ####[facility] LABADRIANE [id number] [place] [id number] [facility] CNOVon 02-28-2024 CNOV Office Visit (INTMWS ) LANDAVERDEMARTINE RAE ([id number]) 1955 F Date Time Provider Department 02/28/24 3:40 PM RICHY DOMINGUEZ INTMWS During your visit today, we recorded the following information about you: Pulse Blood pressure Weight 94/minute 108/60 74.8 kg Richy Dominguze APRN.BODY TEAM MEMBER 02/28/2024 4:02 PM Signed SUBJECTIVE Martine Landaverde is a 68 year old female here today for acute concern. Chief Complaint Patient presents with: Weight Loss: and states feeling hot all the time HPI Martine Landaverde is a 68 year old female. She is an established patient of Eriberto Tovar MD. Here today for concerns of being hot all the time, feels overheated. Not really a hot flash, lasts for a long period of time. Has lost some weight but not trying, about 10 pounds. No polyuria, polyphagia or polydipsia. Sleep is good. No medication changes recently. No vaginal bleeding or spotting issues. Her medications were reviewed today and her list is now up to date. Medications Current Outpatient Medications Medication Sig clobetasol (TEMOVATE) 0.05 % ointment Apply 1 application to affected area two times a day. aspirin 81 mg cap Take by mouth. lisinopril (PRINIVIL) 10 mg tablet Take 1 tablet by mouth once daily. tiZANidine (ZANAFLEX) 4 mg tablet TAKE 1 TABLET BY MOUTH AT BEDTIME, MAY TAKE DOSE DURING THE DAY NEEDED traMADol (ULTRAM) 50 mg tablet Take 50 mg by mouth two times a day as needed. traZODone (DESYREL) 50 mg tablet Take 0.5-1 tablets by mouth daily at bedtime. rosuvastatin (CRESTOR) 5 mg tablet Take 1 tablet by mouth daily at bedtime. diclofenac, EC, (VOLTAREN) 75 mg EC tablet Take 1 tablet by mouth two times a day. For pain/inflammation. Take with food. gabapentin (NEURONTIN) 400 mg capsule Take 1 capsule by mouth four times daily for 180 days. as directed venlafaxine ER (EFFEXOR XR) 150 mg 24 hr capsule Take 1 capsule by mouth two times a day. fluticasone (FLONASE) 50 mcg/actuation nasal spray Use 2 Sprays in each nostril once daily. glucosam sul na/chondr galvan a na(GLUCOSAMINE-CHONDROITIN 3X 750 MG-600 MG TAB) Take 1 tablet twice daily. MAGNESIUM OXIDE 500 MG TAB Take 1 tablet twice daily. MELATONIN 3 MG TAB Take 10 mg by mouth. nightly cholecalciferol(VITAMIN D-3 1,000 UNIT CHEWABLE TAB) Take 2 tablets daily. methylsulfonylmethane(MSM 1,000 MG TAB) 1 tablet twice daily. vitamin b complex(B COMPLEX TAB) Take one(1) tablet daily. VITAMIN E 400 UNIT CAP Take one(1) tablet daily. CALCIUM 600 + D(3) 600 MG-200 UNIT TAB Take one(1) tablet twice daily. MULTIVITAMIN TAB Take one(1) tablet daily. CPAP Initiate CPAP @ 9 cm of water with humidification. Mask (per patient preference) optional chin strap (if indicated) , filters, tubing, humidifier and lifetime supplies. CPAP CHIN STRAP, USED WITH CPAP DEVICE No current facility-administered medications for this visit. ALLERGIES Allergen Reactions Sulfa (Sulfonamide * Hives ACTIVE PROBLEM LIST Screen for Colon Cancer - 01/27/2024 Moderate Recurrent Major Depression (Hcc) - 07/13/2023 Generalized Anxiety Disorder Obstructive Sleep Apnea Comment: DISHA Moss (F) [phone] (P) [phone] [facility] for compliance report Dyspareunia - 05/23/2012 Bunion - 12/10/2009 Degeneration of Intervertebral Disc, Site Unspecified - 06/04/2008 Fibromyalgia - 06/01/2008 Insomnia, Unspecified - 06/01/2008 Chronic Fatigue - 06/01/2008 Anemia, Unspecified - 06/01/2008 Social History Tobacco Use Smoking status: Never Smokeless tobacco: Never Vaping Use Vaping status: Never Used Substance Use Topics Alcohol use: No Drug use: No Review of Systems Respiratory: Negative. Cardiovascular: Negative. Gastrointestinal: Negative. Endocrine: Positive for heat intolerance. Negative for cold intolerance, polydipsia, polyphagia and polyuria. OBJECTIVE BP 108/60 Pulse 94 Wt 164 lb 14.5 oz (74.8kg) SpO2 98% LMP 10/02/2007 Physical Exam Vitals and nursing note reviewed. Constitutional: General: She is awake. She is not in acute distress. Appearance: Normal appearance. She is well-developed and well-groomed. She is not ill-appearing, toxic-appearing or diaphoretic. HENT: Head: Normocephalic. Right Ear: External ear normal. Left Ear: External ear normal. Nose: Nose normal. Eyes: General: Vision grossly intact. Conjunctiva/sclera: Conjunctivae normal. Pupils: Pupils are equal, round, and reactive to light. Neck: Vascular: No JVD. Trachea: Trachea normal. Cardiovascular: Rate and Rhythm: Normal rate and regular rhythm. Pulses: Normal pulses. Heart sounds: Normal heart sounds. No murmur heard. Pulmonary: Effort: Pulmonary effort is normal. No accessory muscle usage, prolonged expiration or respiratory distress. Breath sounds: Normal breath sounds. Musculoskeletal: Cervical back: Neck supple. Skin: General: (more content not included)... Normal [facility] CNOV Office Visit (OBGYWM ) MARTINE LANDAVERDE ([id number]) 1955 F Date Time Provider Department 02/28/24 1:45 PM STANLEY BLAIR OBMONICA During your visit today, we recorded the following information about you: Blood pressure Weight 102/62 75.2 kg Stanley Blair APRN.CNM 02/28/2024 2:59 PM Signed Superintendent Drivers offered: Patient declines. Martine Landaverde is a 68 year old female who presents for follow up visit. Diagnosed with LS and continues to treat with clobetasol twice weekly. Recently she noticing soreness and skin tearing around anus. Cannot see in that area an was concerned that LS has gone there. Denies any itching or discharge. Sometimes noticing burning sensation. Treating herself with triple antibiotic ointment. Denies any urinary or stool incontinence. Denies any rash or bumps. Currently sexually active with and no history of HSV. REVIEW OF SYSTEMS Abdomen: No bloating, early satiety, indigestion, or increased flatulence. No abdominal pain, nausea, vomiting, diarrhea, or constipation. Bladder: No dysuria, gross hematuria, urinary frequency, urinary urgency, or incontinence. Breast: No breast lumps, nipple d/c, overlying skin changes, redness or skin retraction. Expanded ROS: N/A Allergies and current medication updated:Yes SENSITIVE EXAM: The sensitive examination was discussed with the Patient or Patient's Authorized Bilingual Secretary. As applicable, any other physician, advance practice provider, medical student, or other health professional student that will be observing or involved in the sensitive examination for educational or training purposes was discussed with the Patient or Authorized Bilingual Secretary. The Patient or Authorized Bilingual Secretary has agreed to proceed with the sensitive examination. (Sensitive examination includes inspection and/or palpation of the breasts, pelvis, prostate and anorectal regions). EXAM: BP 102/62 Wt 165 lb 12.8 oz (75.2kg) LMP 10/02/2007 GENERAL: pleasant, female in no apparent distress HEENT: Normocephalic PELVIC: no vulvar lesions, no cervical lesions, normal appearing perineal body and perianal region Skin to perineum and rectal area appear normal, no erythema. No open areas or sloughing of skin NEURO: alert and oriented x3,exam grossly non-focal EXTREMITIES: normal ASSESSMENT AND PLAN: Assessment AND Plan Lichen sclerosus et atrophicus Orders: clobetasol (TEMOVATE) 0.05 % ointment; Apply 1 application to affected area two times a day. Chafing Continue to use barrier to skin for protection Can place clobetasol to area if needed Keep area clean and dry Notify office of any irregular vaginal discharge or increased pruritus RTO - as needed / yearly exams Stanley Blair APRN.CNM Allergies As of Date: 02/28/2024 Noted Allergy Reaction SULFA (SULFONAMIDE ANTIBIOTICS) 12/05/2004 4 - Hives Date Reviewed: 02/28/2024 Reviewed by: Sheridan Taylor MA - Fully Assessed Reason for Visit: Follow Up [171] Cmt: Problems with LS Primary Visit Diagnosis:Chafing [L30.4] Other Visit Diagnosis:Lichen sclerosus et atrophicus [L90.0] Order(s):clobetasol (TEMOVATE) 0.05 % ointmentApply 1 application to affected area two times a day.Disp: 60 gRfl: 3 Prescriptions as of 02/28/2024 - clobetasol (TEMOVATE) 0.05 % ointment Apply 1 application to affected area two times a day. - aspirin 81 mg cap Take by mouth. - lisinopril (PRINIVIL) 10 mg tablet Take 1 tablet by mouth once daily. - tiZANidine (ZANAFLEX) 4 mg tablet TAKE 1 TABLET BY MOUTH AT BEDTIME, MAY TAKE DOSE DURING THE DAY NEEDED - traMADol (ULTRAM) 50 mg tablet Take 50 mg by mouth two times a day as needed. - traZODone (DESYREL) 50 mg tablet Take 0.5-1 tablets by mouth daily at bedtime. - rosuvastatin (CRESTOR) 5 mg tablet Take 1 tablet by mouth daily at bedtime. - diclofenac, EC, (VOLTAREN) 75 mg EC tablet Take 1 tablet by mouth two times a day. For pain/inflammation. Take with food. - gabapentin (NEURONTIN) 400 mg capsule Take 1 capsule by mouth four times daily for 180 days. as directed - venlafaxine ER (EFFEXOR XR) 150 mg 24 hr capsule Take 1 capsule by mouth two times a day. - CPAP Initiate CPAP @ 9 cm of water with humidification. Mask (per patient preference) optional chin strap (if indicated) , filters, tubing, humidifier and lifetime supplies. - fluticasone (FLONASE) 50 mcg/actuation nasal spray Use 2 Sprays in each nostril once daily. - CPAP CHIN STRAP, USED WITH CPAP DEVICE - glucosam sul na/chondr galvan a na(GLUCOSAMINE-CHONDROITIN 3X 750 MG-600 MG TAB) Take 1 tablet twice daily. - MAGNESIUM OXIDE 500 MG TAB Take 1 tablet twice daily. - MELATONIN 3 MG TAB Take 10 mg by mouth. nightly - cholecalciferol(VITAMIN D-3 1,000 UNIT CHEWABLE TAB) Take 2 tablets daily. - methylsulfonylmethane(MSM 1,000 MG TAB) 1 tablet twice dominique (more content not included)... Normal [facility] Comprehensive metabolic 2000 panelon 02-28-2024 Albumin [Mass/Vol] 4.5 g/dL Normal 3.9-4.9 [facility] Comment on above: Order Comment: Speci men Type: BLOOD SPECIMENOrdering Facility: [facility] Address: [address] [place] [address] Performed By: #### 3 051-0, 84684-8, 69607-1, 3024-7 ####[facility] [id number] [place] [address] [place] ALP [Catalytic activity/Vol] 88 U/L Normal 34-123 [facility] Comment on above: Order Comment: Speci men Type: BLOOD SPECIMENOrdering Facility: [facility] Address: [address] [place] [address] Performed By: #### 3 051-0, 87520-9, 00262-0, 3024-7 ####[facility] [id number] [place] [address] [place] ALT [Catalytic activity/Vol] 25 U/L Normal 7-38 [facility] Comment on above: Order Comment: Speci men Type: BLOOD SPECIMENOrdering Facility: [facility] Address: [address] [place] [address] Performed By: #### 3 051-0, 50501-5, 95030-6, 3024-7 ####[facility] LABIA [id number] [place] [address] [place] Anion gap [Moles/Vol] 11 mmol/L Normal 8-15 [facility] Comment on above: Order Comment: Speci men Type: BLOOD SPECIMENOrdering Facility: [facility] Address: [address] [place] [address] [place] [address] Performed By: #### 3 051-0, 55643-5, 72914-0, 3024-7 ####[facility] LABCLIA [id number] [place] [address] [place] AST [Catalytic activity/Vol] 19 U/L Normal 13-35 [facility] Comment on above: Order Comment: Speci men Type: BLOOD SPECIMENOrdering Facility: [facility] Address: [address] [place] [address] Performed By: #### 3 051-0, 99431-5, 24047-4, 3024-7 ####[facility] LABCLIA [id number] [place] [address] [place] Bilirubin [Mass/Vol] mg/dL Low 0.2-1.3 [facility] Comment on above: Order Comment: Speci men Type: BLOOD SPECIMENOrdering Facility: [facility] Address: [address] [place] [address] [place] [address] Performed By: #### 3 051-0, 99642-8, 64572-7, 3024-7 ####[facility] LABCLIA [id number] [place] [address] [place] Calcium [Mass/Vol] 9.6 mg/dL Normal 8.5-10.2 [facility] Comment on above: Order Comment: Speci men Type: BLOOD SPECIMENOrdering Facility: [facility] Address: [address] [place] [address] [place] [address] Performed By: #### 3 051-0, 47394-2, 69453-3, 3024-7 ####[facility] LABCLIA [id number] [place] [address] [place] Chloride [Moles/Vol] 102 mmol/L Normal 98-107 [facility] Comment on above: Order Comment: Speci men Type: BLOOD SPECIMENOrdering Facility: [facility] Address: [address] [place] [address] Performed By: #### 3 051-0, 27130-2, 02050-8, 3024-7 ####[facility] LABCLIA [id number] [place] [address] [place] CO2 [Moles/Vol] 25 mmol/L Normal 22-30 [facility] Comment on above: Order Comment: Speci men Type: BLOOD SPECIMENOrdering Facility: [facility] Address: [address] [place] [address] Performed By: #### 3 051-0, 39492-6, 27002-2, 3024-7 ####[facility] LABIA [id number] [place] [address] [place] Creatinine [Mass/Vol] 0.98 mg/dL High 0.58-0.96 [facility] Comment on above: Order Comment: Speci men Type: BLOOD SPECIMENOrdering Facility: [facility] Address: [address] [place] [address] Performed By: #### 3 051-0, 17148-7, 23516-4, 3024-7 ####[facility] LABIA [id number] [place] [address] [place] Creatinine and Glomerular filtration rate.predicted panel (S/P/Bld) 63 mL/min/1.73m??? Normal >=60 [facility] Comment on above: Order Comment: Speci men Type: BLOOD SPECIMENOrdering Facility: [facility] Address: [address] [place] [address] Result Comment: Lani mated Glomerular Filtration Rate (eGFR) is calculated using the 2020 CKD-EPI creatinine equation. This equation utilizes serum creatinine, sex, and age as parameters. The creatinine assay has traceable calibration to isotope dilution-mass spectrometry. Refer to KDIGO guidelines for clinical interpretation. In patients with unstable renal function, e.g. those with acute kidney injury, the eGFR may not accurately reflect actual GFR. Performed By: #### 3 051-0, 81448-8, 03961-5, 7 ####[facility] LABCLIA [id number] [address] [address] [place] Glucose [Mass/Vol] 102 mg/dL High 74-99 [facility] Comment on above: Order Comment: Yonny franks Type: BLOOD SPECIMENOrdering Facility: [facility] Address: [address] [place] [address] Result Comment: The [place] Diabetes Association (ADA) provides guidance for cutoff values for fasting glucose and random glucose. The ADA defines fasting as no caloric intake for at least 8 hours. Fasting plasma glucose results between 100 to 125 mg/dL indicate increased risk for diabetes (prediabetes). Fasting plasma glucose results greater than or equal to 126 mg/dL meet the criteria for diagnosis of diabetes. In the absence of unequivocal hyperglycemia, results should be confirmed by repeat testing. In a patient with classic symptoms of hyperglycemia or hyperglycemic crisis, random plasma glucose results greater than or equal to 200 mg/dL meet the criteria for diagnosis of diabetes. Reference: Standards of Medical Care in Diabetes 2016, [place] [employer] Association. Diabetes Care. 2016.39(Suppl 1). Performed By: #### 3 051-0, 25422-8, 80124-9, 7 ####[facility] LABCLIA [id number] [address] [address] [place] Potassium [Moles/Vol] 4.6 mmol/L Normal 3.7-5.1 [facility] Comment on above: Order Comment: Yonny franks Type: BLOOD SPECIMENOrdering Facility: [facility] Address: [address] [place] [address] Performed By: #### 3 051-0, 85692-4, 52231-9, 7 ####[facility] LABCLIA [id number] [address] [address] [place] Protein [Mass/Vol] 7.0 g/dL Normal 6.3-8.0 [facility] Comment on above: Order Comment: Speci men Type: BLOOD SPECIMENOrdering Facility: [facility] Address: [address] [place] [address] Performed By: #### 3 051-0, 63343-8, 29305-3, 3024-7 ####[facility] LABCLIA [id number] [place] [address] [place] Sodium [Moles/Vol] 138 mmol/L Normal 136-144 [facility] Comment on above: Order Comment: Speci men Type: BLOOD SPECIMENOrdering Facility: [facility] Address: [address] [place] [address] Performed By: #### 3 051-0, 32022-6, 35625-6, 3024-7 ####[facility] LABCLIA [id number] [place] [address] [place] Urea nitrogen [Mass/Vol] 13 mg/dL Normal 7-21 [facility] Comment on above: Order Comment: Speci men Type: BLOOD SPECIMENOrdering Facility: [facility] Address: [address] [place] [address] Performed By: #### 3 051-0, 46978-2, 72367-8, 3024-7 ####[facility] LABCLIA [id number] [place] [address] [place] Ferritin SerPl-mCncon 2023 Ferritin [Mass/Vol] 223.0 ng/mL High 14.7-205.1 [place] Comment on above: Order Comment: Speci men Type: BLOOD SPECIMENOrdering Facility: [facility] Address: [address] [place] [address] Performed By: #### 3 016-3, 2276-4, 98131-7, 2132-9 ####[facility] LABCLIA [id number] [id number] [address] [place] HbA1c (Bld)on 02-28-2024 Average glucose Estimated from glycated hemoglobin (Bld) [Mass/Vol] 111 mg/dL Normal [facility] Comment on above: Order Comment: Yonny men Type: BLOOD SPECIMENOrdering Facility: [facility] Address: [address] [place] [address] Result Comment: eAG: (Estimated average glucose) is a calculated value from HgbA1c and is food products sales representative of the average blood glucose level in the last 2-3 month period. Performed By: #### 5 5454-3 ####[facility] LABCLIA [id number] [place] [address] [place] HbA1c (Bld) [Mass fraction] 5.5 % Normal 4.3-5.6 [facility] Comment on above: Order Comment: Yonny franks Type: BLOOD SPECIMENOrdering Facility: [facility] Address: [address] [place] [address] Result Comment: [place] Diabetes Association guidelines indicate that patients with HgbA1c in the range 5.7-6.4% are at increased risk for development of diabetes, and intervention by lifestyle modification may be beneficial. HgbA1c greater or equal to 6.5% is considered diagnostic of diabetes. Performed By: #### 5 5454-3 ####[facility] LABCLIA [id number] [place] [address] [place] Iron and Iron binding capaci ty panelon 02-28-2024 Iron [Mass/Vol] 105 ug/dL Normal 41-186 [facility] Comment on above: Order Comment: Yonny men Type: BLOOD SPECIMENOrdering Facility: [facility] Address: [address] [place] [address] Performed By: #### 3 051-0, 83236-8, 03018-6, 3024-7 ####[facility] LABCLIA [id number] [place] [address] [place] Iron binding capacity [Mass/Vol] 304 ug/dL Normal 232-386 [facility] Comment on above: Order Comment: Speci men Type: BLOOD SPECIMENOrdering Facility: [facility] Address: [address] [place] [address] Performed By: #### 3 051-0, 56628-7, 87374-3, 3024-7 ####[facility] LABCLIA [id number] [place] [address] [place] Iron/TIBC [Molar ratio] 34.5 % Normal 15.0-57.0 [facility] Comment on above: Order Comment: Speci men Type: BLOOD SPECIMENOrdering Facility: [facility] Address: [address] [place] [address] Performed By: #### 3 051-0, 48530-8, 37453-7, 3024-7 ####[facility] LABIA [id number] [place] [address] [place] Magnesium SerPl-mCncon 02-27 Magnesium [Mass/Vol] 2.5 mg/dL High 1.7-2.3 [facility] Comment on above: Order Comment: Speci men Type: BLOOD SPECIMENOrdering Facility: [facility] Address: [address] [place] [address] Performed By: #### 3 016-3, 2276-4, 71785-7, 2132-9 ####[facility] LABIA [id number] [place] [address] [place] T3Free SerPl-mCncon 02-28-20 24 Free T3 [Mass/Vol] 5.4 pg/mL High 2.3-4.1 [facility] Comment on above: Order Comment: Speci men Type: BLOOD SPECIMENOrdering Facility: [facility] Address: [address] [place] [address] Result Comment: Kaelyn ected result: Previously reported as 6.1 pg/mL on 02/29/2024 at 12:00 PM EST. Performed By: #### 3 051-0, 32801-3, 38709-9, 3024-7 ####[facility] LABCLIA [id number] [place] [id number] [place] T4 Free SerPl-mCncon 024 Free T4 [Mass/Vol] 1.8 ng/dL High 0.9-1.7 [facility] Comment on above: Order Comment: Speci men Type: BLOOD SPECIMENOrdering Facility: [facility] Address: [address] [place] [address] Performed By: #### 3 051-0, 75059-6, 84641-9, 3024-7 ####[facility] LABIA [id number] [place] [address] [place] TSH SerPl-aCncon 02-28-2024 TSH Qn 1.560 m[IU]/L Normal 0.270-4.200 [facility] Comment on above: Order Comment: Speci men Type: BLOOD SPECIMENOrdering Facility: [facility] Address: [address] [place] [address] Performed By: #### 3 016-3, 6-4, , 2131-12 ####[facility] LABIA [id number] [place] [address] [place] Vit B12 SerPl-mCncon 024 Cobalamin (Vitamin B12) [Mass/Vol] 1671 pg/mL High 232-1245 [facility] Comment on above: Order Comment: Speci men Type: BLOOD SPECIMENOrdering Facility: [facility] Address: [address] [place] [address] Performed By: #### 3 016-3, 6-4, , 2131-12 ####[facility] LABIA [id number] [place] [address] [place] CBC panel Auto (Bld)on 02-23 Erythrocyte distribution width (RBC) [Ratio] 13.8 % Normal 11.5-15.0 [facility] Comment on above: Order Comment: Speci men Type: BLOOD SPECIMENOrdering Facility: [facility] Address: [address] [place] [address] Performed By: #### 5 8410-2 ####[facility] NICOSergeyNCLIA [id number] [place] [address] [place] Hematocrit (Bld) [Volume fraction] 38.7 % Normal 36.0-46.0 [facility] Comment on above: Order Comment: Speci men Type: BLOOD SPECIMENOrdering Facility: [facility] Address: [address] [place] [address] Performed By: #### 5 8410-2 ####[facility]ITAL[facility]CL[facility] [id number] [place] [address] [place] Hemoglobin (Bld) [Mass/Vol] 12.1 g/dL Normal 11.5-15.5 [facility] Comment on above: Order Comment: Speci men Type: BLOOD SPECIMENOrdering Facility: [facility] Address: [address] [place] [address] Performed By: #### 5 8410-2 ####[facility]ITAL[facility]CL[facility] [id number] [place] [address] [place] MCH (RBC) [Entitic mass] 23.7 pg Low 26.0-34.0 [facility] Comment on above: Order Comment: Speci men Type: BLOOD SPECIMENOrdering Facility: [facility] Address: [address] [place] [address] Performed By: #### 5 8410-2 ####[facility]ITALNCL[facility] [id number] [place] [address] [place] MCHC (RBC) [Mass/Vol] 31.3 g/dL Normal 30.5-36.0 [facility] Comment on above: Order Comment: Speci men Type: BLOOD SPECIMENOrdering Facility: [facility] Address: [address] [place] [address] Performed By: #### 5 8410-2 ####[facility] CARINNCLIA [id number] [place] [address] [place] MCV (RBC) [Entitic vol] 75.9 fL Low 80.0-100.0 [facility] Comment on above: Order Comment: Speci men Type: BLOOD SPECIMENOrdering Facility: [facility] Address: [address] [place] [address] Performed By: #### 5 8410-2 ####[facility]ITAL[facility]CL[facility] [id number] [place] [address] [place] Nucleated RBC (Bld) [#/Vol] 10*3/uL Normal <0.01 [facility] Comment on above: Order Comment: Speci men Type: BLOOD SPECIMENOrdering Facility: [facility] Address: [address] [place] [address] Performed By: #### 5 8410-2 ####[facility]ITAL[facility] [id number] [place] [address] [place] Platelet mean volume (Bld) [Entitic vol] 8.4 fL Low 9.0-12.7 [facility] Comment on above: Order Comment: Speci men Type: BLOOD SPECIMENOrdering Facility: [facility] Address: [address] [place] [address] Performed By: #### 5 8410-2 ####[facility]IALWNCL[facility] [id number] [place] [address] [place] Platelets (Bld) [#/Vol] 381 10*3/uL Normal 150-400 [facility] Comment on above: Order Comment: Speci men Type: BLOOD SPECIMENOrdering Facility: [facility] Address: [address] [place] [address] Performed By: #### 5 8410-2 ####[facility]ITAL[facility] [id number] [place] [address] [place] RBC (Bld) [#/Vol] 5.10 10*6/uL Normal 3.90-5.20 [facility] Comment on above: Order Comment: Speci men Type: BLOOD SPECIMENOrdering Facility: [facility] Address: [address] [place] [address] Performed By: #### 5 8410-2 ####[facility] [id number] [place] [address] [place] WBC (Bld) [#/Vol] 10.85 10*3/uL Normal 3.70-11.00 [place] Comment on above: Order Comment: Speci men Type: BLOOD SPECIMENOrdering Facility: [facility] Address: [address] [place] [address] Performed By: #### 5 8410-2 ####[facility] [id number] [place] [address] [place] [id number] 01-27-2024 [id number] HNO ID: [id number] Author: SAKINA LOPES RN Service: ? Author Type: Registered Nurse Type: [id number] Filed: 01/27/2024 12:57 Note Text: The patient received a copy of Colonoscopy discharge instructions that contain information for how to contact the physician who performed the procedure and when to seek medical care. Normal [facility] Colonoscopyon 01-27-2024 Colonoscopy [facility] Gastrointestinal Endoscopy Patient Name: Martine Landaverde Procedure Date: 01/27/2024 11:42 AM Date of : 1955 Admit Type: Outpatient Age: 68 Gender: Female Note Status: Finalized Procedure: Colonoscopy Indications: Screening for colorectal malignant neoplasm Providers: Jone Choe MD Patient Profile: This is a 68 year old female. Refer to note in patient chart for documentation of history and physical. Last Colonoscopy: December 2013. Referring Physician: Mayela Luna (Referring ) Medicines: Fentanyl 100 micrograms IV, Midazolam 5 mg IV, Meperidine 50 mg IV, Diphenhydramine 50 mg IV, Ondansetron 4 mg IV Complications: No immediate complications. Estimated blood loss: None. Requesting Provider: Procedure: Pre-Anesthesia Assessment: - Prior to the procedure, a History and Physical was performed, and patient medications and allergies were reviewed. The patient's tolerance of previous anesthesia was also reviewed. The risks and benefits of the procedure and the sedation options and risks were discussed with the patient. All questions were answered, and informed consent was obtained. Prior Anticoagulants: The patient has taken no anticoagulant or antiplatelet agents. ASA Grade Assessment: II - A patient with mild systemic disease. After reviewing the risks and benefits, the patient was deemed in satisfactory condition to undergo the procedure. After I obtained informed consent, the scope was passed under direct vision. Throughout the procedure, the patient's blood pressure, pulse, and oxygen saturations were monitored continuously. The Colonoscope was introduced through the anus and advanced to the cecum, identified by appendiceal orifice and ileocecal valve. The colonoscopy was performed without difficulty. The patient tolerated the procedure poorly due to the patient's discomfort during the procedure. The quality of the bowel preparation was unsatisfactory. The ileocecal valve was photographed. Moderate Sedation: Moderate (conscious) sedation was personally administered by the endoscopist. The following parameters were monitored: oxygen saturation, heart rate, blood pressure, respiratory rate, EKG, adequacy of pulmonary ventilation, and response to care. Total physician intraservice time was 20 minutes. The administration of moderate sedation was initiated at 11:57 AM. Findings: The perianal and digital rectal examinations were normal. Copious quantities of semi-liquid semi-solid stool was found in the entire colon, precluding visualization. Lavage of the area was performed using a large amount of normal saline, resulting in incomplete clearance with continued poor visualization. The exam was otherwise without abnormality. Impression: - Preparation of the colon was unsatisfactory. - Stool in the entire examined colon. - The examination was otherwise normal. - No specimens collected. Recommendation: - Patient has a contact number available for emergencies. The signs and symptoms of potential delayed complications were discussed with the patient. Return to normal activities tomorrow. Written discharge instructions were provided to the patient. - Resume previous diet. - Continue present medications. - Repeat colonoscopy in 1 year because the bowel preparation was poor. Patient should never be done under conscious sedation again. She needs propofol. Her bowel prep was entirely unsatisfactory. Although I do not think I missed anything big I certainly could have missed anything that was medium size or smaller. I do not think she drank her bowel prep fast enough or she did not do a 2-day bowel prep either way it was thick pea soup it just could not be irrigated and aspirated out with any success without clogging up the scope. Recommending a repeat colonoscopy in 1 year. - Return to referring physician at appointment to be scheduled. Procedure Code(s): --- Professional --- 48450, Colonoscopy, flexible; diagnostic, including collection of specimen(s) by brushing or washing, when performed (separate procedure) G0500, Moderate sedation services provided by the same physician or other qualified health aged or disabled care worker performing a gastrointestinal endoscopic service that sedation supports, requiring the presence of an independent trained observer to assist in the monitoring of the patient's level of consciousness and physiological status; initial 15 minutes of intra-service time; patient age 5 years or older (additional time may be reported with 00368, as appropriate) Diagnosis Code(s): --- Professional --- Z12.11, Encounter for screening for malignant neoplasm of colon CPT copyright 2020 [employer]. All rights reserved. The codes documented in this report are preliminary and upon certified medical coder review may be revised to meet current compliance requirements. (more content not included)... Normal [facility] Colonoscopy Study observatio non 01-27-2024 [facility] Gastrointestinal Endoscopy Patient Name: Martine Landaverde Procedure Date: 01/27/2024 11:42 AM Date of : 1955 Admit Type: Outpatient Age: 68 Gender: Female Note Status: Finalized Procedure: Colonoscopy Indications: Screening for colorectal malignant neoplasm Providers: Jone Choe MD Patient Profile: This is a 68 year old female. Refer to note in patient chart for documentation of history and physical. Last Colonoscopy: December 2013. Referring Physician: Mayela Luna (Referring ) Medicines: Fentanyl 100 micrograms IV, Midazolam 5 mg IV, Meperidine 50 mg IV, Diphenhydramine 50 mg IV, Ondansetron 4 mg IV Complications: No immediate complications. Estimated blood loss: None. Requesting Provider: Procedure: Pre-Anesthesia Assessment: - Prior to the procedure, a History and Physical was performed, and patient medications and allergies were reviewed. The patient's tolerance of previous anesthesia was also reviewed. The risks and benefits of the procedure and the sedation options and risks were discussed with the patient. All questions were answered, and informed consent was obtained. Prior Anticoagulants: The patient has taken no anticoagulant or antiplatelet agents. ASA Grade Assessment: II - A patient with mild systemic disease. After reviewing the risks and benefits, the patient was deemed in satisfactory condition to undergo the procedure. After I obtained informed consent, the scope was passed under direct vision. Throughout the procedure, the patient's blood pressure, pulse, and oxygen saturations were monitored continuously. The Colonoscope was introduced through the anus and advanced to the cecum, identified by appendiceal orifice and ileocecal valve. The colonoscopy was performed without difficulty. The patient tolerated the procedure poorly due to the patient's discomfort during the procedure. The quality of the bowel preparation was unsatisfactory. The ileocecal valve was photographed. Moderate Sedation: Moderate (conscious) sedation was personally administered by the endoscopist. The following parameters were monitored: oxygen saturation, heart rate, blood pressure, respiratory rate, EKG, adequacy of pulmonary ventilation, and response to care. Total physician intraservice time was 20 minutes. The administration of moderate sedation was initiated at 11:57 AM. Findings: The perianal and digital rectal examinations were normal. Copious quantities of semi-liquid semi-solid stool was found in the entire colon, precluding visualization. Lavage of the area was performed using a large amount of normal saline, resulting in incomplete clearance with continued poor visualization. The exam was otherwise without abnormality. Impression: - Preparation of the colon was unsatisfactory. - Stool in the entire examined colon. - The examination was otherwise normal. - No specimens collected. Recommendation: - Patient has a contact number available for emergencies. The signs and symptoms of potential delayed complications were discussed with the patient. Return to normal activities tomorrow. Written discharge instructions were provided to the patient. - Resume previous diet. - Continue present medications. - Repeat colonoscopy in 1 year because the bowel preparation was poor. Patient should never be done under conscious sedation again. She needs propofol. Her bowel prep was entirely unsatisfactory. Although I do not think I missed anything big I certainly could have missed anything that was medium size or smaller. I do not think she drank her bowel prep fast enough or she did not do a 2-day bowel prep either way it was t (more content not included)... PROVATION [facility] Radiology Study observation (narrative) [facility] HISTORY PHYSICALon HISTORY PHYSICAL HNO ID: [id number] Author: JONE CHOE MD Service: General Surgery Author Type: Physician Type: H&P Filed: 01/27/2024 11:50 Note Text: HISTORY AND PHYSICAL Martine Landaverde : 1955 REFERRING PHYSICIAN: No referring provider defined for this encounter. CHIEF COMPLAINT: Patient presents with: Consult HPI: Martine is a 68 year old female referred for endoscopy. Martine notes due for screening colonoscopy. Martine denies abdominal pain.. Martine denies diarrhea. Martine denies constipation. Martine denies a change in bowel habits. Martine denies melena. Martine denies bright red blood per rectum. Martine denies hemorrhoids. Martine denies heartburn. Martine denies dysphagia. Martine denies a history of ulcers/ peptic ulcer disease. Denies family history of colon issues. Martine has undergone prior endoscopy. Last colonoscopy 12/[address] Shields at [facility]. Sedation received: Midazolam 7 mg IV, Fentanyl 100 micrograms IV Impression: - The entire examined colon is normal. Biopsied. - The distal rectum and anal verge are normal on retroflexion view. CURRENT MEDICATIONS Current Outpatient Medications Medication Sig traMADol (ULTRAM) 50 mg tablet Take 50 mg by mouth two times a day as needed. ferrous sulfate (IRON) 325 mg (65 mg iron) tablet 4 days weekly traZODone (DESYREL) 50 mg tablet Take 0.5-1 tablets by mouth daily at bedtime. rosuvastatin (CRESTOR) 5 mg tablet Take 1 tablet by mouth daily at bedtime. diclofenac, EC, (VOLTAREN) 75 mg EC tablet Take 1 tablet by mouth two times a day. For pain/inflammation. Take with food. gabapentin (NEURONTIN) 400 mg capsule Take 1 capsule by mouth four times daily for 180 days. as directed venlafaxine ER (EFFEXOR XR) 150 mg 24 hr capsule Take 1 capsule by mouth two times a day. clobetasol (TEMOVATE) 0.05 % ointment Apply 1 application to affected area twice daily. TO AFFECTED AREA as directed. lisinopril (PRINIVIL) 10 mg tablet Take 1 tablet by mouth once daily. tiZANidine (ZANAFLEX) 4 mg tablet TAKE 1 TABLET BY MOUTH AT BEDTIME, MAY TAKE DOSE DURING THE DAY NEEDED CPAP Initiate CPAP @ 9 cm of water with humidification. Mask (per patient preference) optional chin strap (if indicated) , filters, tubing, humidifier and lifetime supplies. fluticasone (FLONASE) 50 mcg/actuation nasal spray Use 2 Sprays in each nostril once daily. CPAP CHIN STRAP, USED WITH CPAP DEVICE glucosam sul na/chondr galvan a na(GLUCOSAMINE-CHONDROITIN 3X 750 MG-600 MG TAB) Take 1 tablet twice daily. MAGNESIUM OXIDE 500 MG TAB Take 1 tablet twice daily. MELATONIN 3 MG TAB Take 10 mg by mouth. nightly cholecalciferol(VITAMIN D-3 1,000 UNIT CHEWABLE TAB) Take 2 tablets daily. methylsulfonylmethane(MSM 1,000 MG TAB) 1 tablet twice daily. vitamin b complex(B COMPLEX TAB) Take one(1) tablet daily. VITAMIN E 400 UNIT CAP Take one(1) tablet daily. CALCIUM 600 + D(3) 600 MG-200 UNIT TAB Take one(1) tablet twice daily. MULTIVITAMIN TAB Take one(1) tablet daily. No current facility-administered medications for this visit. ALLERGIES: Sulfa (Sulfonamide Antibiotics) PAST MEDICAL HISTORY PAST MEDICAL HISTORY No date: Chronic fatigue syndrome No date: Depression 05/23/2012: Dyspareunia No date: Generalized anxiety disorder No date: Mitral valve disorders(424.0) No date: Myalgia and myositis, unspecified No date: Obstructive sleep apnea Comment: Not treating because of cost No date: Other kyphoscoliosis and scoliosis Comment: SPURS/VERTEBRAE No date: Other specified iron deficiency anemias No date: Unspecified sleep apnea PAST SURGICAL HISTORY PAST SURGICAL HISTORY No date: ARTHRD ANT NTRBD MIN DSC EA ADDL INTERSPACE 10/17/2008: COLONOSCOPY FLX DX W/COLLJ SPEC WHEN PFRMD 12/05/2013: COLONOSCOPY SCREENING Comment: 10 yr interval No date: CORRECT BUNION,SIMPLE Comment: LEFT FOOT X 2 No date: CRYO CAUTERY CERVIX No date: DILATION AND CURETTAGE DXAND/THER NONOBSTETRIC Comment: Dilation AND curettage 10/17/2008: EGD TRANSORAL BIOPSY SINGLE/MULTIPLE Comment: gastritis 03/03/2001: PAST SURGICAL HISTORY OF Comment: 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 FAMILY HISTORY FAMILY HISTORY Problem Relation Age of Onset Alzheimer's Disease Mother Coronary Artery Disease Mother 35 35 at first [place] Ischemic Heart Disease Mother Stroke Mother Coronary Artery Disease Brother 57 2 MIs Breast Cancer Maternal Grandmother Coronary Artery Disease Maternal Grandfather Ischemic Heart Disease Maternal Grandfather Stroke Maternal Grandfather Breast Cancer Paternal Grandmother SOCIAL HISTORY Social History Tobacco Use Smoking status: Never Smokeless tobacco: Never Vaping Use Vaping status: Never Used Substance Use Topics Alcohol use: No Drug use: No REVIEW OF SYMPTOMS: negative except as noted above PHYSICAL EXAMINATION: General: The patient is 68 year old, female well nourished, well hydrated in no acute distress. T (more content not included)... Normal [facility] NURSING PROGon 01-27-2024 NURSING PROG HNO ID: [id number] Author: SAKINA LOPES RN Service: ? Author Type: Registered Nurse Type: Nursing Progress Note Filed: 01/27/2024 12:53 Note Text: Patient arrived laying on left side. Patient does not appear to be in any pain at this time. Abdomen appears to be nondistended and soft to palpation. Patient encouraged to belch and pass gas as needed. Normal [facility] CNOVon 01-20-2024 CNOV Office Visit (INTMWS ) MARTINE LANDAVERDE ([id number]) 1955 F Date Time Provider Department 01/20/24 2:40 PM ERIBERTO TOVAR INTMWS During your visit today, we recorded the following information about you: Pulse Respiration Blood pressure Weight 76/minute 16/minute 129/73 76.7 kg Eriberto Tovar MD 01/20/2024 4:33 PM Signed This note was created using NoteWriter. Subjective Martnie Landaverde is a 68 year old female. Patient presents with: Follow Up SUBJECTIVE: Martine Landaverde is a 68 year old year old lady here today for follow up appointment for review of medical conditions. The patient is a 68-year-old female with a history of arthritis and microcytic anemia, presenting for a medication refill. The patient is scheduled for a colonoscopy next week, followed by surgery on the . She has been advised to discontinue diclofenac starting tomorrow, the , and remain off it until the due to potential blood-thinning effects and concerns about postoperative bruising. She requests a refill of oxycodone, which she previously used for arthritis pain management. While she notes that oxycodone did not significantly alleviate her arthritis pain, it was adequate for managing pain during a similar period when she was off diclofenac. She also reports persistent microcytic anemia despite taking iron supplements four times a week. Recent labs from December show a hemoglobin level of 11.1 g/dL and microcytosis. She has increased her iron intake to daily and inquires about the need for rechecking her levels. She denies taking vitamin C or acidic foods with her iron supplements. 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) Myalgia and myositis, unspecified Obstructive sleep apnea Not treating because of cost Other kyphoscoliosis and scoliosis SPURS/VERTEBRAE Other specified iron deficiency anemias Unspecified sleep apnea Current Outpatient Medications Medication Sig aspirin 81 mg cap Take by mouth. lisinopril (PRINIVIL) 10 mg tablet Take 1 tablet by mouth once daily. tiZANidine (ZANAFLEX) 4 mg tablet TAKE 1 TABLET BY MOUTH AT BEDTIME, MAY TAKE DOSE DURING THE DAY NEEDED traMADol (ULTRAM) 50 mg tablet Take 50 mg by mouth two times a day as needed. ferrous sulfate (IRON) 325 mg (65 mg iron) tablet 4 days weekly (Patient taking differently: Take 325 mg by mouth once daily. 4 days weekly) traZODone (DESYREL) 50 mg tablet Take 0.5-1 tablets by mouth daily at bedtime. rosuvastatin (CRESTOR) 5 mg tablet Take 1 tablet by mouth daily at bedtime. diclofenac, EC, (VOLTAREN) 75 mg EC tablet Take 1 tablet by mouth two times a day. For pain/inflammation. Take with food. venlafaxine ER (EFFEXOR XR) 150 mg 24 hr capsule Take 1 capsule by mouth two times a day. clobetasol (TEMOVATE) 0.05 % ointment Apply 1 application to affected area twice daily. TO AFFECTED AREA as directed. CPAP Initiate CPAP @ 9 cm of water with humidification. Mask (per patient preference) optional chin strap (if indicated) , filters, tubing, humidifier and lifetime supplies. fluticasone (FLONASE) 50 mcg/actuation nasal spray Use 2 Sprays in each nostril once daily. CPAP CHIN STRAP, USED WITH CPAP DEVICE glucosam sul na/chondr galvan a na(GLUCOSAMINE-CHONDROITIN 3X 750 MG-600 MG TAB) Take 1 tablet twice daily. MAGNESIUM OXIDE 500 MG TAB Take 1 tablet twice daily. MELATONIN 3 MG TAB Take 10 mg by mouth. nightly cholecalciferol(VITAMIN D-3 1,000 UNIT CHEWABLE TAB) Take 2 tablets daily. methylsulfonylmethane(MSM 1,000 MG TAB) 1 tablet twice daily. vitamin b complex(B COMPLEX TAB) Take one(1) tablet daily. VITAMIN E 400 UNIT CAP Take one(1) tablet daily. CALCIUM 600 + D(3) 600 MG-200 UNIT TAB Take one(1) tablet twice daily. MULTIVITAMIN TAB Take one(1) tablet daily. gabapentin (NEURONTIN) 400 mg capsule Take 1 capsule by mouth four times daily for 180 days. as directed No current facility-administered medications for this visit. Review of Systems Objective BP 129/73 Pulse 76 Resp 16 Wt 76.7 kg (169 lb 1.5 oz) LMP 10/02/2007 BMI 26.88 kg/m? Last 5 Encounter Wt Readings: Date: Wt: 01/20/2024 76.7 kg (169 lb 1.5 oz) 12/15/2023 78.6 kg (173 lb 3.2 oz) 11/24/2023 79 kg (174 lb 2.6 oz) 09/03/2023 78.9 kg (174 lb) 12/18/2022 83 kg (183 lb) No waist measurement recorded Estimated body mass index is 26.88 kg/m? as calculated from the following: Height as of 12/15/23: 168.9 cm (5' 6.5). Weight as of this encounter: 76.7 kg (169 lb 1.5 oz). Last 5 Encounter BP Readings: Date: BP: 01/20/2024 129/73 12/15/2023 120/82 11/24/2023 114/62 09/03/2023 120/70 12/18/2022 122/68 Physical Exam Constitutional: Appearance: Normal appearance. Eyes: Conjunctiva/sclera: Conjunctivae normal. (more content not included)... Normal [facility] 01-13-2024 CNPN Telephone (INTMWS) MARTINE LANDAVERDE ([id number]) 1955 F Date Time Provider Department 01/13/24 ERIBERTO TOVAR INTMWS During your visit today, we recorded the following information about you: Yvonne Garrido 01/13/2024 1:00 PM Signed Tristian is calling Eriberto Tovar MD today with concern regarding medication question Patient was to have surgery on 11-29, but was diagnosed with COVID a few days before so surgery had to be cancelled. Patient was taken off her regular arthritis medication prior to surgery and prescribed oxyCODONE IR (ROXICODONE) 5 mg immediate release tablet. Patient is no scheduled for surgery 01/31 for surgery and needs to be off her regular arthritis medication for 10 days prior. Patient is asking if she can be prescribed oxyCODONE IR (ROXICODONE) 5 mg immediate release tablet Patient is asking if she needs to be seen again. Patient has been identified by name and birthdate. Duration of symptoms: N/A Person calling: self Call patient at: on cell [phone] (home) [phone] (cell) Was an appointment scheduled: No Closing statement: Results or non-symptom based questions: Thank you for calling [facility], your call will be returned within the next business day. Ronny Caldwell, RN 01/19/2024 11:52 AM Signed Pt checking on reply to below message. Reports she has to stop diclofenac this Sat, for blepharoplasty eye surgery, scheduled 02-01-24. Will also be having colonscopy done next week, and has to be off diclofenac for that procedure as well. Last appt w/pcp was 11-24-23. Asking if she needs to be seen to get oxycodone in place of dicofenac? Please advise and phone patient with reply. Regina Khalil LPN 01/19/2024 1:11 PM Signed Printed TE to bring to attention of PCP to address. FRANCIE Forte Liza D, MD 01/19/2024 7:10 PM Signed Needs seen before can prescribed controlled medications like opiates like oxycodone Lis Layton RN 01/19/2024 7:28 PM Signed Spoke with patient. Given message from provider's office. Patient verbalizes understanding. Scheduled appointment. Lis Layton RN Allergies As of Date: 01/13/2024 Noted Allergy Reaction SULFA (SULFONAMIDE ANTIBIOTICS) 12/05/2004 4 - Hives Date Reviewed: 12/15/2023 Reviewed by: Mayela Luna APRN.BODY TEAM MEMBER - Fully Assessed Reason for Visit: medication question [Other] Prescriptions as of 01/19/2024 - lisinopril (PRINIVIL) 10 mg tablet Take 1 tablet by mouth once daily. - tiZANidine (ZANAFLEX) 4 mg tablet TAKE 1 TABLET BY MOUTH AT BEDTIME, MAY TAKE DOSE DURING THE DAY NEEDED - traMADol (ULTRAM) 50 mg tablet Take 50 mg by mouth two times a day as needed. - ferrous sulfate (IRON) 325 mg (65 mg iron) tablet 4 days weekly - traZODone (DESYREL) 50 mg tablet Take 0.5-1 tablets by mouth daily at bedtime. - rosuvastatin (CRESTOR) 5 mg tablet Take 1 tablet by mouth daily at bedtime. - diclofenac, EC, (VOLTAREN) 75 mg EC tablet Take 1 tablet by mouth two times a day. For pain/inflammation. Take with food. - gabapentin (NEURONTIN) 400 mg capsule Take 1 capsule by mouth four times daily for 180 days. as directed - venlafaxine ER (EFFEXOR XR) 150 mg 24 hr capsule Take 1 capsule by mouth two times a day. - clobetasol (TEMOVATE) 0.05 % ointment Apply 1 application to affected area twice daily. TO AFFECTED AREA as directed. - CPAP Initiate CPAP @ 9 cm of water with humidification. Mask (per patient preference) optional chin strap (if indicated) , filters, tubing, humidifier and lifetime supplies. - fluticasone (FLONASE) 50 mcg/actuation nasal spray Use 2 Sprays in each nostril once daily. - CPAP CHIN STRAP, USED WITH CPAP DEVICE - glucosam sul na/chondr galvan a na(GLUCOSAMINE-CHONDROITIN 3X 750 MG-600 MG TAB) Take 1 tablet twice daily. - MAGNESIUM OXIDE 500 MG TAB Take 1 tablet twice daily. - MELATONIN 3 MG TAB Take 10 mg by mouth. nightly - cholecalciferol(VITAMIN D-3 1,000 UNIT CHEWABLE TAB) Take 2 tablets daily. - methylsulfonylmethane(MSM 1,000 MG TAB) 1 tablet twice daily. - vitamin b complex(B COMPLEX TAB) Take one(1) tablet daily. - VITAMIN E 400 UNIT CAP Take one(1) tablet daily. - CALCIUM 600 + D(3) 600 MG-200 UNIT TAB Take one(1) tablet twice daily. - MULTIVITAMIN TAB Take one(1) tablet daily. Problem List As Of Date 01/13/2024 Noted Resolved Fibromyalgia [M79.7] 06/01/2008 Pain in joint, multiple sites [M25.50] 06/01/2008 01/17/2015 INSOMNIA NOS [G47.00] 06/01/2008 Chronic fatigue [R53.82] 06/01/2008 Other and unspecified hyperlipidemia [E78.5] 06/01/2008 12/22/2012 Recurrent major depressive disorder, in partial*06/01/2008 07/13/2023 ANEMIA NOS [D64.9] 06/01/2008 DISC DEGENERATION NOS [TXO1342] 06/04/2008 Unspecified sleep apnea [G47.30] 07/31/2008 02/25/2016 Periodic limb movement disorder [G47.61] 09/12 (more content not included)... Normal [facility] CBC panel Auto (Bld)on 12-26 Erythrocyte distribution width (RBC) [Ratio] 13.9 % Normal 11.5-15.0 [facility] Comment on above: Order Comment: Speci men Type: BLOOD SPECIMENOrdering Facility: [facility] Address: [address] [place] [address] Performed By: #### 5 8410-2 ####[facility] [id number] [place] [address] [place] Hematocrit (Bld) [Volume fraction] 35.9 % Low 36.0-46.0 [facility] Comment on above: Order Comment: Speci men Type: BLOOD SPECIMENOrdering Facility: [facility] Address: [address] [place] [address] Performed By: #### 5 8410-2 ####[facility] [id number] [place] [address] [place] Hemoglobin (Bld) [Mass/Vol] 11.1 g/dL Low 11.5-15.5 [facility] Comment on above: Order Comment: Speci men Type: BLOOD SPECIMENOrdering Facility: [facility] Address: [address] [place] [address] Performed By: #### 5 8410-2 ####[facility]ITAL[facility] [id number] [place] [address] [place] MCH (RBC) [Entitic mass] 23.7 pg Low 26.0-34.0 [facility] Comment on above: Order Comment: Speci men Type: BLOOD SPECIMENOrdering Facility: [facility] Address: [address] [place] [address] Performed By: #### 5 8410-2 ####[facility]ITAL[facility] [id number] [place] [address] [place] MCHC (RBC) [Mass/Vol] 30.9 g/dL Normal 30.5-36.0 [facility] Comment on above: Order Comment: Speci men Type: BLOOD SPECIMENOrdering Facility: [facility] Address: [address] [place] [address] Performed By: #### 5 8410-2 ####[facility] [id number] [place] [address] [place] MCV (RBC) [Entitic vol] 76.5 fL Low 80.0-100.0 [facility] Comment on above: Order Comment: Speci men Type: BLOOD SPECIMENOrdering Facility: [facility] Address: [address] [place] [address] Performed By: #### 5 8410-2 ####[facility] [id number] [place] [address] [place] Nucleated RBC (Bld) [#/Vol] 10*3/uL Normal <0.01 [facility] Comment on above: Order Comment: Speci men Type: BLOOD SPECIMENOrdering Facility: [facility] Address: [address] [place] [address] Performed By: #### 5 8410-2 ####[facility]ITALNCL[facility] [id number] [place] [address] [place] Platelet mean volume (Bld) [Entitic vol] 8.4 fL Low 9.0-12.7 [facility] Comment on above: Order Comment: Speci men Type: BLOOD SPECIMENOrdering Facility: [facility] Address: [address] [place] [address] Performed By: #### 5 8410-2 ####[facility]ITALNCL[facility] [id number] [place] [address] [place] Platelets (Bld) [#/Vol] 318 10*3/uL Normal 150-400 [facility] Comment on above: Order Comment: Speci men Type: BLOOD SPECIMENOrdering Facility: [facility] Address: [address] [place] [address] Performed By: #### 5 8410-2 ####[facility] NICOWNCLIA [id number] [place] [address] [place] RBC (Bld) [#/Vol] 4.69 10*6/uL Normal 3.90-5.20 [facility] Comment on above: Order Comment: Speci men Type: BLOOD SPECIMENOrdering Facility: [facility] Address: [address] [place] [address] Performed By: #### 5 8410-2 ####[facility]ITALNCL[facility] [id number] [place] [address] [place] WBC (Bld) [#/Vol] 7.41 10*3/uL Normal 3.70-11.00 [facility] Comment on above: Order Comment: Speci men Type: BLOOD SPECIMENOrdering Facility: [facility] Address: [address] [place] [address] Performed By: #### 5 8410-2 ####[facility]ITALNCLIA [id number] [place] [address] [place] Comprehensive metabolic 2000 panelon 12-27-2023 Albumin [Mass/Vol] 4.3 g/dL Normal 3.9-4.9 [facility] Comment on above: Order Comment: Speci men Type: BLOOD SPECIMENOrdering Facility: [facility] Address: [address] [place] [address] Performed By: #### 2 4323-8 ####[facility]ITALNCLIA [id number] [place] [address] [place] ALP [Catalytic activity/Vol] 85 U/L Normal 34-123 [facility] Comment on above: Order Comment: Speci men Type: BLOOD SPECIMENOrdering Facility: [facility] Address: [address] [place] [address] Performed By: #### 2 4323-8 ####[facility]OWNCLIA [id number] [place] [address] [place] ALT [Catalytic activity/Vol] 17 U/L Normal 7-38 [facility] Comment on above: Order Comment: Speci men Type: BLOOD SPECIMENOrdering Facility: [facility] Address: [address] [place] [address] Performed By: #### 2 4323-8 ####[facility] MILLTOWNCLIA [id number] [place] [address] [place] Anion gap [Moles/Vol] 10 mmol/L Normal 8-15 [facility] Comment on above: Order Comment: Speci men Type: BLOOD SPECIMENOrdering Facility: [facility] Address: [address] [place] [address] Performed By: #### 2 4323-8 ####[facility]WNCLIA [id number] [place] [address] [place] AST [Catalytic activity/Vol] 16 U/L Normal 13-35 [facility] Comment on above: Order Comment: Speci men Type: BLOOD SPECIMENOrdering Facility: [facility] Address: [address] [place] [address] Performed By: #### 2 4323-8 ####[facility] MILL[facility]OWNCLIA [id number] [place] [address] [place] Bilirubin [Mass/Vol] 0.3 mg/dL Normal 0.2-1.3 [facility] Comment on above: Order Comment: Speci men Type: BLOOD SPECIMENOrdering Facility: [facility] Address: [address] [place] [address] Performed By: #### 2 4323-8 ####[facility]WNCLIA [id number] [place] [address] [place] Calcium [Mass/Vol] 9.5 mg/dL Normal 8.5-10.2 [facility] Comment on above: Order Comment: Speci men Type: BLOOD SPECIMENOrdering Facility: [facility] Address: [address] [place] [address] Performed By: #### 2 4323-8 ####[facility]ITALNCLIA [id number] [place] [address] [place] Chloride [Moles/Vol] 104 mmol/L Normal 98-107 [facility] Comment on above: Order Comment: Speci men Type: BLOOD SPECIMENOrdering Facility: [facility] Address: [address] [place] [address] Performed By: #### 2 4323-8 ####[facility]USLIA [id number] [place] [address] [place] CO2 [Moles/Vol] 24 mmol/L Normal 22-30 [facility] Comment on above: Order Comment: Speci men Type: BLOOD SPECIMENOrdering Facility: [facility] Address: [address] [place] [address] Performed By: #### 2 4323-8 ####[facility]ITALNCLIA [id number] [place] [address] [place] Creatinine [Mass/Vol] 0.87 mg/dL Normal 0.58-0.96 [facility] Comment on above: Order Comment: Speci men Type: BLOOD SPECIMENOrdering Facility: [facility] Address: [address] [place] [address] Performed By: #### 2 4323-8 ####[facility]ITALNCLIA [id number] [place] [address] [place] Creatinine and Glomerular filtration rate.predicted panel (S/P/Bld) 73 mL/min/1.73m??? Normal >=60 [facility] Comment on above: Order Comment: Speci men Type: BLOOD SPECIMENOrdering Facility: [facility] Address: [address] [place] [address] Result Comment: Lani mated Glomerular Filtration Rate (eGFR) is calculated using the 2020 CKD-EPI creatinine equation. This equation utilizes serum creatinine, sex, and age as parameters. The creatinine assay has traceable calibration to isotope dilution-mass spectrometry. Refer to KDIGO guidelines for clinical interpretation. In patients with unstable renal function, e.g. those with acute kidney injury, the eGFR may not accurately reflect actual GFR. Performed By: #### 2 4323-8 ####[facility] [id number] [place] [address] [place] Glucose [Mass/Vol] 94 mg/dL Normal 74-99 [facility] Comment on above: Order Comment: Yonny franks Type: BLOOD SPECIMENOrdering Facility: [facility] Address: [address] [place] [address] Result Comment: The [place] Diabetes Association (ADA) provides guidance for cutoff values for fasting glucose and random glucose. The ADA defines fasting as no caloric intake for at least 8 hours. Fasting plasma glucose results between 100 to 125 mg/dL indicate increased risk for diabetes (prediabetes). Fasting plasma glucose results greater than or equal to 126 mg/dL meet the criteria for diagnosis of diabetes. In the absence of unequivocal hyperglycemia, results should be confirmed by repeat testing. In a patient with classic symptoms of hyperglycemia or hyperglycemic crisis, random plasma glucose results greater than or equal to 200 mg/dL meet the criteria for diagnosis of diabetes. Reference: Standards of Medical Care in Diabetes 2016, [place] [employer] Association. Diabetes Care. 2016.39(Suppl 1). Performed By: #### 2 4323-8 ####[facility]USLIA [id number] [place] [address] [place] Potassium [Moles/Vol] 3.9 mmol/L Normal 3.7-5.1 [facility] Comment on above: Order Comment: Yonny franks Type: BLOOD SPECIMENOrdering Facility: [facility] Address: [address] [place] [address] Performed By: #### 2 4323-8 ####[facility] [id number] [place] [address] [place] Protein [Mass/Vol] 6.7 g/dL Normal 6.3-8.0 [facility] Comment on above: Order Comment: Speci men Type: BLOOD SPECIMENOrdering Facility: [facility] Address: [address] [place] [address] Performed By: #### 2 4323-8 ####[facility] [id number] [place] [address] [place] Sodium [Moles/Vol] 138 mmol/L Normal 136-144 [facility] Comment on above: Order Comment: Speci men Type: BLOOD SPECIMENOrdering Facility: [facility] Address: [address] [place] [address] Performed By: #### 2 4323-8 ####[facility] [id number] [address] [place] Urea nitrogen [Mass/Vol] 15 mg/dL Normal 7-21 [facility] Comment on above: Order Comment: Speci men Type: BLOOD SPECIMENOrdering Facility: [facility] Address: [address] [place] [address] Performed By: #### 2 4323-8 ####[facility] [id number] [place] [address] [place] Lipid 1996 panelon 4 Cholesterol [Mass/Vol] 152 mg/dL Normal <200 [facility] Comment on above: Order Comment: Speci men Type: BLOOD SPECIMENOrdering Facility: [facility] Address: [address] [place] [address] Result Comment: <200 mg/dL, Desirable 200-239 mg/dL, Borderline high >239 mg/dL, High Performed By: #### 2 4331-1 ####[facility] LABCLIA [id number] [address] [id number] [id number] [place] [address] [place] Cholesterol in HDL [Mass/Vol] 43 mg/dL Normal >39 [facility] Comment on above: Order Comment: Yonny men Type: BLOOD SPECIMENOrdering Facility: [facility] Address: [address] [place] [address] Result Comment: 40-5 9 mg/dL, Acceptable >59 mg/dL, High: Negative risk factor for coronary heart disease <40 mg/dL, Low: Positive risk factor for coronary heart disease Performed By: #### 2 4331-1 ####[facility] LABCLIA [id number] [address] [id number] [place] [address] [place] Cholesterol in LDL [Mass/Vol] 81 mg/dL Normal <100 [facility] Comment on above: Order Comment: Christi men Type: BLOOD SPECIMENOrdering Facility: [facility] Address: [address] [place] [address] Result Comment: <100 mg/dL, Optimal 100-129 mg/dL, Near optimal/above optimal 130-159 mg/dL, Borderline high 160-189 mg/dL, High >189 mg/dL, Very high Secondary prevention optimal LDL Cholesterol levels are recommended to be < 70 mg/dL Performed By: #### 2 4331-1 ####[facility] LABCLIA [id number] [address] [id number] [place] [address] [place] Cholesterol in LDL/Cholesterol in HDL [Mass ratio] 1.88 {ratio} Normal <2.54 [facility] Comment on above: Order Comment: Christi men Type: BLOOD SPECIMENOrdering Facility: [facility] Address: [address] [place] [address] Result Comment: Gus brito: 1. National Cholesterol Education Program ATP III Guideline At-A-Glance Quick Desk Reference: National Heart, Lung, and Blood [place]. National Institutes of Health. 2001: NIH Publication No. 01-3305. 2. An International Atherosclerosis Society position paper: global recommendations for the management of dyslipidemia: executive summary, Atherosclerosis. 2014: 232(2):410-413. Performed By: #### 2 4331-1 ####[facility] LABCLIA [id number] [address] [id number] [place] [address] [place] Cholesterol in VLDL [Mass/Vol] 28 mg/dL Normal <30 [facility] Comment on above: Order Comment: Speci men Type: BLOOD SPECIMENOrdering Facility: [facility] Address: [address] [place] [address] Performed By: #### 2 4331-1 ####[facility] LABCLIA [id number] [address] [id number] [place] [address] [place] Cholesterol non HDL [Mass/Vol] 109 mg/dL Normal <130 [facility] Comment on above: Order Comment: Christi men Type: BLOOD SPECIMENOrdering Facility: [facility] Address: [address] [place] [address] Result Comment: <130 mg/dL, Optimal 130-159 mg/dL, Near optimal/above optimal 160-189 mg/dL, Borderline high 190-219 mg/dL, High >219 mg/dL, Very high Secondary prevention optimal non HDL Cholesterol levels are recommended to be <100 mg/dL Performed By: #### 2 4331-1 ####[facility] LABCLIA [id number] [id number] [place] [address] [place] Cholesterol.total/C holesterol in HDL [Mass ratio] 3.53 {ratio} Normal <5.10 [facility] Comment on above: Order Comment: Speci men Type: BLOOD SPECIMENOrdering Facility: [facility] Address: [address] [place] [address] Performed By: #### 2 4331-1 ####[facility] LABCLIA [id number] [address] [id number] [place] [address] [place] FASTING TIME 13 hrs Normal [facility] Comment on above: Order Comment: Speci men Type: BLOOD SPECIMENOrdering Facility: [facility] Address: [address] [place] [address] Performed By: #### 2 4331-1 ####[facility] LABCLIA [id number] [address] [id number] [place] [address] [place] Triglyceride [Mass/Vol] 141 mg/dL Normal <150 [facility] Comment on above: Order Comment: Speci men Type: BLOOD SPECIMENOrdering Facility: [facility] Address: [address] [place] [address] Result Comment: <150 mg/dL, Normal 150-199 mg/dL, Borderline high 200-499 mg/dL, High >499 mg/dL, Very high Performed By: #### 2 4331-1 ####[facility] LABCLIA [id number] [address] [id number] [place] [address] [place] CNOVon 12-15-2023 CNOV Office Visit (GENSWS ) MARTINE LANDAVERDE ([id number]) 1955 F Date Time Provider Department 12/15/23 3:00 PM MAYELA LUNA During your visit today, we recorded the following information about you: Temperature Pulse Blood pressure Weight 98 degrees 100/minute 120/82 78.6 kg Height 1.689 m Mayela Luna APRN.BODY TEAM MEMBER 12/15/2023 4:05 PM Signed HISTORY AND PHYSICAL Martine Landaverde : 1955 REFERRING PHYSICIAN: No referring provider defined for this encounter. CHIEF COMPLAINT: Patient presents with: Consult HPI: Martine is a 68 year old female referred for endoscopy. Martine notes due for screening colonoscopy. Martine denies abdominal pain.. Martine denies diarrhea. Martine denies constipation. Martine denies a change in bowel habits. Martine denies melena. Martine denies bright red blood per rectum. Martine denies hemorrhoids. Martine denies heartburn. Martine denies dysphagia. Martine denies a history of ulcers/ peptic ulcer disease. Denies family history of colon issues. Martine has undergone prior endoscopy. Last colonoscopy 12/[address] Shields at [facility]. Sedation received: Midazolam 7 mg IV, Fentanyl 100 micrograms IV Impression: - The entire examined colon is normal. Biopsied. - The distal rectum and anal verge are normal on retroflexion view. Current Outpatient Medications Medication Sig traMADol (ULTRAM) 50 mg tablet Take 50 mg by mouth two times a day as needed. ferrous sulfate (IRON) 325 mg (65 mg iron) tablet 4 days weekly traZODone (DESYREL) 50 mg tablet Take 0.5-1 tablets by mouth daily at bedtime. rosuvastatin (CRESTOR) 5 mg tablet Take 1 tablet by mouth daily at bedtime. diclofenac, EC, (VOLTAREN) 75 mg EC tablet Take 1 tablet by mouth two times a day. For pain/inflammation. Take with food. gabapentin (NEURONTIN) 400 mg capsule Take 1 capsule by mouth four times daily for 180 days. as directed venlafaxine ER (EFFEXOR XR) 150 mg 24 hr capsule Take 1 capsule by mouth two times a day. clobetasol (TEMOVATE) 0.05 % ointment Apply 1 application to affected area twice daily. TO AFFECTED AREA as directed. lisinopril (PRINIVIL) 10 mg tablet Take 1 tablet by mouth once daily. tiZANidine (ZANAFLEX) 4 mg tablet TAKE 1 TABLET BY MOUTH AT BEDTIME, MAY TAKE DOSE DURING THE DAY NEEDED CPAP Initiate CPAP @ 9 cm of water with humidification. Mask (per patient preference) optional chin strap (if indicated) , filters, tubing, humidifier and lifetime supplies. fluticasone (FLONASE) 50 mcg/actuation nasal spray Use 2 Sprays in each nostril once daily. CPAP CHIN STRAP, USED WITH CPAP DEVICE glucosam sul na/chondr galvan a na(GLUCOSAMINE-CHONDROITIN 3X 750 MG-600 MG TAB) Take 1 tablet twice daily. MAGNESIUM OXIDE 500 MG TAB Take 1 tablet twice daily. MELATONIN 3 MG TAB Take 10 mg by mouth. nightly cholecalciferol(VITAMIN D-3 1,000 UNIT CHEWABLE TAB) Take 2 tablets daily. methylsulfonylmethane(MSM 1,000 MG TAB) 1 tablet twice daily. vitamin b complex(B COMPLEX TAB) Take one(1) tablet daily. VITAMIN E 400 UNIT CAP Take one(1) tablet daily. CALCIUM 600 + D(3) 600 MG-200 UNIT TAB Take one(1) tablet twice daily. MULTIVITAMIN TAB Take one(1) tablet daily. No current facility-administered medications for this visit. ALLERGIES: Sulfa (Sulfonamide Antibiotics) PAST MEDICAL HISTORY No date: Chronic fatigue syndrome No date: Depression 05/23/2012: Dyspareunia No date: Generalized anxiety disorder No date: Mitral valve disorders(424.0) No date: Myalgia and myositis, unspecified No date: Obstructive sleep apnea Comment: Not treating because of cost No date: Other kyphoscoliosis and scoliosis Comment: SPURS/VERTEBRAE No date: Other specified iron deficiency anemias No date: Unspecified sleep apnea PAST SURGICAL HISTORY No date: ARTHRD ANT NTRBD MIN DSC EA ADDL INTERSPACE 10/17/2008: COLONOSCOPY FLX DX W/COLLJ SPEC WHEN PFRMD 12/05/2013: COLONOSCOPY SCREENING Comment: 10 yr interval No date: CORRECT BUNION,SIMPLE Comment: LEFT FOOT X 2 No date: CRYO CAUTERY CERVIX No date: DILATION AND CURETTAGE DXAND/THER NONOBSTETRIC Comment: Dilation AND curettage 10/17/2008: EGD TRANSORAL BIOPSY SINGLE/MULTIPLE Comment: gastritis 03/03/2001: PAST SURGICAL HISTORY OF Comment: 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 Normal [facility] CNOVon 11-24-2023 CNOV Office Visit (INTMWS ) LANDAVERDEMARTINE RAE ([id number]) 1955 F Date Time Provider Department 11/24/23 4:20 PM ERIBERTO TOVAR INTMWS During your visit today, we recorded the following information about you: Temperature Pulse Respiration Blood pressure 98.3 degrees 86/minute 18/minute 114/62 Weight 79 kg Eriberto Tovar MD 11/24/2023 5:55 PM Signed This note was created using [employer]. Subjective Martine Landaverde is a 67 year old female. Patient presents with: Same Day Appointment: Discuss pain medication while off diclofenac for surgery SUBJECTIVE: Martine Landaverde is a 67 year old year old lady here today for same day appointment for review of medical conditions. Patient is a 67-year-old female with a history of fibromyalgia and arthritis presenting with worsening pain after discontinuing diclofenac in preparation for an upcoming eye surgery. Patient reports that she was instructed to stop taking diclofenac 10 days prior to the surgery to avoid blood thinning effects. She discontinued the medication on Wednesday, and the surgery is scheduled for next Wednesday. Since discontinuing diclofenac, she has experienced increased pain in her lower back, hands, knees, hips, and shoulders. She describes the pain as severe, stating, everything really hurts right now, and notes that even with her spinal cord stimulator implant, the pain is not well-controlled. She denies any swelling of the joints or sciatica. Patient has been taking tramadol once daily, which provides some relief, but she is concerned that it may not be sufficient to manage her pain until the surgery. She has tried Tylenol, but finds it ineffective, describing it as like candy. She is unable to take ibuprofen, Aleve, or aspirin due to their blood-thinning effects. 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 Patient is under the care of Dr. Garcia for pain management and has a prescription for tramadol to be taken once or twice daily. She has previously taken oxycodone without issues and is considering using it to manage her pain until the surgery. She plans to consult with her eye surgeon about when she can resume diclofenac after the surgery. PAST MEDICAL HISTORY No date: Chronic fatigue syndrome No date: Depression 05/23/2012: Dyspareunia No date: Generalized anxiety disorder No date: Mitral valve disorders(424.0) No date: Myalgia and myositis, unspecified No date: Obstructive sleep apnea Comment: Not treating because of cost No date: Other kyphoscoliosis and scoliosis Comment: SPURS/VERTEBRAE No date: Other specified iron deficiency anemias No date: Unspecified sleep apnea Current Outpatient Medications Medication Sig traMADol (ULTRAM) 50 mg tablet Take 50 mg by mouth two times a day as needed. ferrous sulfate (IRON) 325 mg (65 mg iron) tablet 4 days weekly traZODone (DESYREL) 50 mg tablet Take 0.5-1 tablets by mouth daily at bedtime. rosuvastatin (CRESTOR) 5 mg tablet Take 1 tablet by mouth daily at bedtime. gabapentin (NEURONTIN) 400 mg capsule Take 1 capsule by mouth four times daily for 180 days. as directed venlafaxine ER (EFFEXOR XR) 150 mg 24 hr capsule Take 1 capsule by mouth two times a day. clobetasol (TEMOVATE) 0.05 % ointment Apply 1 application to affected area twice daily. TO AFFECTED AREA as directed. lisinopril (PRINIVIL) 10 mg tablet Take 1 tablet by mouth once daily. tiZANidine (ZANAFLEX) 4 mg tablet TAKE 1 TABLET BY MOUTH AT BEDTIME, MAY TAKE DOSE DURING THE DAY NEEDED CPAP Initiate CPAP @ 9 cm of water with humidification. Mask (per patient preference) optional chin strap (if indicated) , filters, tubing, humidifier and lifetime supplies. fluticasone (FLONASE) 50 mcg/actuation nasal spray Use 2 Sprays in each nostril once daily. CPAP CHIN STRAP, USED WITH CPAP DEVICE glucosam sul na/chondr galvan a na(GLUCOSAMINE-CHONDROITIN 3X 750 MG-600 MG TAB) Take 1 tablet twice daily. MAGNESIUM OXIDE 500 MG TAB Take 1 tablet twice daily. MELATONIN 3 MG TAB Take 10 mg by mouth. nightly cholecalciferol(VITAMIN D-3 1,000 UNIT CHEWABLE TAB) Take 2 tablets daily. methylsulfonylmethane(MSM 1,000 MG TAB) 1 tablet twice daily. vitamin b complex(B COMPLEX TAB) Take one(1) tablet daily. VITAMIN E 400 UNIT CAP Take one(1) tablet daily. CALCIUM 600 + D(3) 600 MG-200 UNIT TAB Take one(1) tablet twice daily. MULTIVITAMIN TAB Take one(1) tablet daily. diclofenac, EC, (VOLTAREN) 75 mg EC tablet Take 1 tablet by mouth two times a day. For pain/inflammation. Take with food. (Patient not taking: Reported on 11/24/2023) No current facility-administered medications for this visit. Review of Systems Objective BP 114/62 Pulse 86 Temp 36.8 ?C (98.3 ?F) Resp 18 Wt 79 kg (174 lb 2.6 oz) LMP 10/02/2007 SpO2 97% BMI 27.50 kg/m? Physical Exam M (more content not included)... Normal [facility] [place] 11-22-2023 [facility] Telephone (INTMWS) MARTINE LANDAVERDE ([id number]) 1955 F Date Time Provider Department 11/22/23 ERIBERTO TOVAR INTMWS During your visit today, we recorded the following information about you: Sheridan Wren RN 11/22/2023 1:41 PM Signed Pt is scheduled to have eyelid surgery, (blepharoplasty), at [facility] [place], WednesdayNovember 29. Pt is to discontinue any blood thinning medication ten days prior to the day of surgery. Pt stopped the Diclofenac on Wednesday11/21/23. She wanted to know if there was anything you could prescribe that would compensate for not taking the Voltaren. 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 She said she may have to postpone the Blepharoplasty until sometime in the future if she cannot get her pain under control. She states the Diclofenac takes her pain down to a 2/10, right now she is at a 7/10 throughout her body constant ache. Pt states she uses [facility] in [place]. Please call and advise. Pt. Eriberto Tovar MD 11/22/2023 7:24 PM Signed Since all NSAIDs are off the list, if Tylenol does not help, then that is left with controlled medications like tramadol and hydrocodone. These are controlled meds so would need an appointment in order for me to prescribe any of those meds. See if wants an appointment to see whether controlled med is appropriate. Noted tramadol last given in 2020 from someone outside of [facility]. Hydrocodone given 2009. Percocet 2010 from within [facility] system. Sheridan Wren RN 11/23/2023 8:26 AM Signed Pt called and is notified of providers message and instructions. Pt voices understanding and scheduled with Dr Tovar tomorrow. Sheridan Wren RN Allergies As of Date: 11/22/2023 Noted Allergy Reaction SULFA (SULFONAMIDE ANTIBIOTICS) 12/05/2004 4 - Hives Date Reviewed: 09/03/2023 Reviewed by: Regina Khalil LPN - Fully Assessed Reason for Visit: Patient Update [1234] Medication Question [7408] Prescriptions as of 11/23/2023 - traMADol (ULTRAM) 50 mg tablet Take 50 mg by mouth two times a day as needed. - ferrous sulfate (IRON) 325 mg (65 mg iron) tablet 4 days weekly - traZODone (DESYREL) 50 mg tablet Take 0.5-1 tablets by mouth daily at bedtime. - rosuvastatin (CRESTOR) 5 mg tablet Take 1 tablet by mouth daily at bedtime. - diclofenac, EC, (VOLTAREN) 75 mg EC tablet Take 1 tablet by mouth two times a day. For pain/inflammation. Take with food. - gabapentin (NEURONTIN) 400 mg capsule Take 1 capsule by mouth four times daily for 180 days. as directed - venlafaxine ER (EFFEXOR XR) 150 mg 24 hr capsule Take 1 capsule by mouth two times a day. - clobetasol (TEMOVATE) 0.05 % ointment Apply 1 application to affected area twice daily. TO AFFECTED AREA as directed. - lisinopril (PRINIVIL) 10 mg tablet Take 1 tablet by mouth once daily. - tiZANidine (ZANAFLEX) 4 mg tablet TAKE 1 TABLET BY MOUTH AT BEDTIME, MAY TAKE DOSE DURING THE DAY NEEDED - CPAP Initiate CPAP @ 9 cm of water with humidification. Mask (per patient preference) optional chin strap (if indicated) , filters, tubing, humidifier and lifetime supplies. - fluticasone (FLONASE) 50 mcg/actuation nasal spray Use 2 Sprays in each nostril once daily. - CPAP CHIN STRAP, USED WITH CPAP DEVICE - glucosam sul na/chondr galvan a na(GLUCOSAMINE-CHONDROITIN 3X 750 MG-600 MG TAB) Take 1 tablet twice daily. - MAGNESIUM OXIDE 500 MG TAB Take 1 tablet twice daily. - MELATONIN 3 MG TAB Take 10 mg by mouth. nightly - cholecalciferol(VITAMIN D-3 1,000 UNIT CHEWABLE TAB) Take 2 tablets daily. - methylsulfonylmethane(MSM 1,000 MG TAB) 1 tablet twice daily. - vitamin b complex(B COMPLEX TAB) Take one(1) tablet daily. - VITAMIN E 400 UNIT CAP Take one(1) tablet daily. - CALCIUM 600 + D(3) 600 MG-200 UNIT TAB Take one(1) tablet twice daily. - MULTIVITAMIN TAB Take one(1) tablet daily. Problem List As Of Date 11/22/2023 Noted Resolved Fibromyalgia [M79.7] 06/01/2008 Pain in joint, multiple sites [M25.50] 06/01/2008 01/17/2015 INSOMNIA NOS [G47.00] 06/01/2008 Chronic fatigue [R53.82] 06/01/2008 Other and unspecified hyperlipidemia [E78.5] 06/01/2008 12/22/2012 Recurrent major depressive disorder, in partial*06/01/2008 07/13/2023 ANEMIA NOS [D64.9] 06/01/2008 DISC DEGENERATION NOS [OXR2091] 06/04/2008 Unspecified sleep apnea [G47.30] 07/31/2008 02/25/2016 Periodic limb movement disorder [G47.61] 09/12/2008 02/25/2016 Acute gastritis with hemorrhage [K29.01] 10/17/2008 04/30/2017 Contact dermatitis and other eczema, due to uns*02/14/2009 01/17/2015 Xerosis cutis [L85.3] 02/14/2009 01/17/2015 Sun-damaged skin [L57.8] 02/14/2009 01/17/2015 Lentigo [L81.4] 02/14/2009 01/17/2015 Melanocytic nevus of trunk [D22.5] 02/14/2009 02/25/2016 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 Normal [facility] CT CALCIUM SCORING SELF Yeison n 07-29-2023 CT CALCIUM SCORING SELF PAY * * *Final Report* * * DATE OF EXAM: Jul 29 2023 3:49PM [facility] 2105 - CT CALCIUM SCORING SELF PAY / PROCEDURE REASON: multiple diagnoses * * * * Physician Interpretation * * * * Examination: CT Coronary Calcium Score Direct Image Comparison: None HISTORY: 67 years old Female with concern for coronary artery disease. There is request to assess coronary calcification TECHNIQUE: SCANNER: Multi-detector scanner PROTOCOL: Sequential imaging with prospective triggering and 3-mm slice reconstruction was performed without contrast administration. Scan Range: mihir to the base of the heart Scan acquisition was uncomplicated Tube Voltage: [address] Dose-Length Product (DLP): 62.[address] Dose Reduction Employed: Automated exposure control(AEC) and iterative recon CONTRAST: None Macro Version: [id number]:CCTWO_5 For optimization of anatomic evaluation, off-line postprocessing was performed on a dedicated workstation by the interpreting physician. STUDY LIMITATIONS: None. RESULT: LINES, TUBES and DEVICES: None limited CHEST: visualized Chest wall anatomy: unremarkable. visualized LUNGS: unremarkable. visualized MEDIASTINUM: unremarkable. PERICARDIUM: unremarkable CENTRAL PULMONARY ARTERY: normal dimensions. Assessment is limited due to lack of contrast enhancement. CARDIAC CHAMBERS: assessment is limited in the non-contrast study. -overall normal dimensions Trivial posterior mitral annular calcification noted. AORTIC VALVE: assessment is limited in the current study. No leaflet calcification. visualized AORTA: Aortic Size: Normal size visualized thoracic aorta. Wall Changes: scattered mild calcified wall changes. AORTIC DIMENSIONS: AORTIC ROOT: 3.1 cm measured [id number]-fx-[id number] mid ASCENDING THORACIC AORTA: 3 cm mid DESCENDING THORACIC AORTA: 2.3 cm CORONARY ANATOMY: normal origin of the coronary arteries. Calcium Score (Agatston Units): LM: 0 AU LAD: 287 AU, including the plaque that straddles between distal left main and proximal LAD LCx: 98 AU RCA: 236 AU Other: 0 AU Total: 621 AU Percentile Rank (age and gender matched relative to reference population): 96th percentile* [* [email or web address]] limited upper ABDOMEN: unremarkable BONES and SOFT TISSUES: degenerative changes of the thoracic spine. Cylinder Sander Operator (topogram) images: No additional findings. IMPRESSION: - Total Coronary Calcium Score (CAC) = 621 [employer] Truck Driver: ELLA Transcribe Date/Time: Jul 29 2023 3:58P Dictated by : FERCHO FREED MD This examination was interpreted and the report reviewed and electronically signed by: FERCHO FREED MD on Jul 29 2023 4:03PM EST [id number] [facility] CT Heart and Coronary arteri es for calcium scoring WO contraston 07-29-2023 IMPRESSION: - Total Coronary Calcium Score (CAC) = 621 [employer] Truck Driver: ELLA Transcribe Date/Time: Jul 29 2023 3:58P Dictated by : FERCHO FREED MD This examination was interpreted and the report reviewed and electronically signed by: FERCHO FREED MD on Jul 29 2023 4:03PM [facility] RADIOLOGY * * *Final Report* * * DATE OF EXAM: Jul 29 2023 3:49PM [facility] 2104 - CT CALCIUM SCORING SELF PAY / PROCEDURE REASON: multiple diagnoses * * * * Physician Interpretation * * * * Examination: CT Coronary Calcium Score Direct Image Comparison: None HISTORY: 67 years old Female with concern for coronary artery disease. There is request to assess coronary calcification TECHNIQUE: SCANNER: Multi-detector scanner PROTOCOL: Sequential imaging with prospective triggering and 3-mm slice reconstruction was performed without contrast administration. Scan Range: mihir to the base of the heart Scan acquisition was uncomplicated Tube Voltage: [address] Dose-Length Product (DLP): 62.[address] Dose Reduction Employed: Automated exposure control(AEC) and iterative recon CONTRAST: None Macro Version: [id number]:CCTWO_5 For optimization of anatomic evaluation, off-line postprocessing was performed on a dedicated workstation by the interpreting physician. STUDY LIMITATIONS: None. RESULT: LINES, TUBES and DEVICES: None limited CHEST: visualized Chest wall anatomy: unremarkable. visualized LUNGS: unremarkable. visualized MEDIASTINUM: unremarkable. PERICARDIUM: unremarkable CENTRAL PULMONARY ARTERY: normal dimensions. Assessment is limited due to lack of contrast enhancement. CARDIAC CHAMBERS: assessment is limited in the non-contrast study. -overall normal dimensions Trivial posterior mitral annular calcification noted. AORTIC VALVE: assessment is limited in the current study. No leaflet calcification. visualized AORTA: Aortic Size: Normal size visualized thoracic aorta. Wall Changes: scattered mild calcified wall changes. AORTIC DIMENSIONS: AORTIC ROOT: 3.1 cm measured thsfq-ph-ykfrz mid ASCENDING THORACIC AORTA: 3 cm mid DESCENDING THORACIC AORTA: 2.3 cm CORONARY ANATOMY: normal origin of the coronary arteries. Calcium Score (Agatston Units): LM: 0 AU LAD: 287 AU, including the plaque that straddles between distal left main and proximal LAD LCx: 98 AU RCA: 236 AU Other: 0 AU Total: 621 AU Percentile Rank (age and gender matched relative to reference population): 96th percentile* [* [email or web address]] limited upper ABDOMEN: unremarkable BONES and SOFT TISSUES: degenerative changes of the thoracic spine. Cylinder Sander Operator (topogram) images: No additional findings. [facility] RADIOLOGY Provider, Precious Ramirez - 07/29/2023 * * *Final Report* * * DATE OF EXAM: Jul 29 2023 3:49PM [facility] 2105 - CT CALCIUM SCORING SELF PAY / PROCEDURE REASON: multiple diagnoses * * * * Physician Interpretation * * * * Examination: CT Coronary Calcium Score Direct Image Comparison: None HISTORY: 67 years old Female with concern for coronary artery disease. There is request to assess coronary calcification TECHNIQUE: SCANNER: Multi-detector scanner PROTOCOL: Sequential imaging with prospective triggering and 3-mm slice reconstruction was performed without contrast administration. Scan Range: mihir to the base of the heart Scan acquisition was uncomplicated Tube Voltage: [address] Dose-Length Product (DLP): 62.[address] Dose Reduction Employed: Automated exposure control(AEC) and iterative recon CONTRAST: None Macro Version: [id number]:CCTWO_5 For optimization of anatomic evaluation, off-line postprocessing was performed on a dedicated workstation by the interpreting physician. STUDY LIMITATIONS: None. RESULT: LINES, TUBES and DEVICES: None limited CHEST: visualized Chest wall anatomy: unremarkable. visualized LUNGS: unremarkable. visualized MEDIASTINUM: unremarkable. PERICARDIUM: unremarkable CENTRAL PULMONARY ARTERY: normal dimensions. Assessment is limited due to lack of contrast enhancement. CARDIAC CHAMBERS: assessment is limited in the non-contrast study. -overall normal dimensions Trivial posterior mitral annular calcification noted. AORTIC VALVE: assessment is limited in the current study. No leaflet calcification. visualized AORTA: Aortic Size: Normal size visualized thoracic aorta. Wall Changes: scattered mild calcified wall changes. AORTIC DIMENSIONS: AORTIC ROOT: 3.1 cm measured ugbam-xf-grrjf mid ASCENDING THORACIC AORTA: 3 cm mid DESCENDING THORACIC AORTA: 2.3 cm CORONARY ANATOMY: normal origin of the coronary arteries. Calcium Score (Agatston Units): LM: 0 AU LAD: 287 AU, including the plaque that straddles between distal left main and proximal LAD LCx: 98 AU RCA: 236 AU Other: 0 AU Total: 621 AU Percentile Rank (age and gender matched relative to reference population): 96th percentile* [* [email or web address]] limited upper ABDOMEN: unremarkable BONES and SOFT TISSUES: degenerative changes of the thoracic spine. Cylinder Sander Operator (topogram) images: No additional findings. IMPRESSION IMPRESSION: - Total Coronary Calcium Score (CAC) = 621 [employer] Driver: ELLA Transcribe Date/Time: Jul 29 2023 3:58P Dictated by : FERCHO FREED MD This examination was interpreted and the report reviewed and electronically signed by: FERCHO FREED MD on Jul 29 2023 4:03PM EST [facility] Radiology Study observation (narrative) [facility] CT Heart and Coronary arteri es for calcium scoring WO contrastOrdered By: Ccf Provider on 07-29-2023 [facility] XR KNEES BILATERAL 4+ VIEWS (SPECIFY VIEWS IN COMMENTS)on 06-14-2023 XR KNEES BILATERAL 4+ VIEWS (SPECIFY VIEWS IN COMMENTS) EXAMINATION: XR KNEES BILATERAL 4+ VIEWS (SPECIFY VIEWS IN COMMENTS) HISTORY: ORDERING SYSTEM PROVIDED HISTORY: Pain, TECHNOLOGIST PROVIDED HISTORY: Illness/Other Reason for exam: chronic bilateral knee pain, no injury Cancer History: . Surgery, RadiationHistory: . Encounter Type: Initial Additional signs and symptoms: none ORDERING SYSTEM PROVIDED DIAGNOSIS CODES: R52 Pain COMPARISON: None. FINDINGS: AP standing, tunnel and sunrise views of both knees. Lateral view of each knee. Right knee: No acute osseous abnormality. Mild medial and lateral knee compartment joint space narrowing with mild osteophytic spurring. Severe patellofemoral compartment joint space narrowing with lateral patellar subluxation, xjqs-nd-gczk appearance, subchondral sclerosis and large marginal osteophytes. Multiple scattered intraarticular bodies throughout the knee joint. At least small joint effusion. Left knee: No acute osseous abnormality. Mild medial knee compartment joint space narrowing with mild osteophytic spurring. Mild lateral knee compartment joint space narrowing with moderate osteophytic spurring. Severe patellofemoral compartment joint space narrowing with lateral subluxation, yefs-li-rves appearance, subchondral sclerosis and large marginal osteophytes. Small suprapatellar joint effusion. IMPRESSION: No acute osseous abnormality. Bilateral tricompartmental osteoarthritis. Both patellofemoral compartments demonstrate lateral patellar subluxation with severe osteoarthritic changes. /[facility] Workstation ID: [id number] Dictated by: BOBBY GAY on WedJun 15, 2023 9:52:52 AM EDT Transcribed by: KELSIE DEJESUS on WedJun 15, 2023 10:03:43 AM EDT Finalized by: BOBBY GAY on WedJun 15, 2023 5:22:59 PM EDT Normal [facility] Ambulatory Comment on above: Order Comment: Injur y/Trauma or Illness?:Illness/Other How long have you had these symptoms (acute/chronic)?:Chronic Reason for exam?:chronic bilateral knee pain, no injury History of cancer?:. Surgeries, chemotherapy, or radiation?:. Type of Exam?:Initial Additional signs and symptoms?:none UA DIP, URINE (POC)on 2022 BILIRUBIN UA (POCT) Negative Negative [facility] CLARITY UA (POCT) Clear [facility] COLOR UA (POCT) Yellow [facility] GLUCOSE UA (POCT) Negative Negative mg/dL [facility] Hemoglobin Ql (U) Trace-intact Abnormal Negative [facility] KETONE UA (POCT) Negative Negative mg/dL [facility] LEUKOCYTES UA (POCT) Small Abnormal Negative [facility] NITRITE UA (POCT) Negative Negative [facility] PH UA (POCT) 7.0 4.5 - 8.0 [facility] Protein Ql (U) Negative Negative mg/dL [facility] SPECIFIC GRAVITY UA (POCT) 1.010 1.005 - 1.030 [facility] UROBILINOGEN UA (POCT) 0.2 E.U./dL Normal E.U./dL [facility] UA DIP, URINE (POC)on 2022 BILIRUBIN UA (POCT) Negative Negative [facility] CLARITY UA (POCT) Clear [facility] COLOR UA (POCT) Yellow [facility] GLUCOSE UA (POCT) Negative Negative mg/dL [facility] HEMOGLOBIN/BLOOD UA (POCT) Small Abnormal Negative [facility] KETONE UA (POCT) Negative Negative mg/dL [facility] LEUKOCYTES UA (POCT) Small Abnormal Negative [facility] NITRITE UA (POCT) Negative Negative [facility] PH UA (POCT) 7.0 4.5 - 8.0 [facility] Protein Ql (U) Negative Negative mg/dL [facility] SPECIFIC GRAVITY UA (POCT) 1.010 1.005 - 1.030 [facility] UROBILINOGEN UA (POCT) 0.2 E.U./dL Normal E.U./dL [facility] UA DIP, URINE (POC)on 2022 BILIRUBIN UA (POCT) Negative Negative [facility] CLARITY UA (POCT) Clear [facility] COLOR UA (POCT) Yellow [facility] GLUCOSE UA (POCT) Negative Negative mg/dL [facility] HEMOGLOBIN/BLOOD UA (POCT) Trace-lysed Abnormal Negative [facility] KETONE UA (POCT) Negative Negative mg/dL [facility] LEUKOCYTES UA (POCT) Trace Abnormal Negative [facility] NITRITE UA (POCT) Negative Negative [facility] PH UA (POCT) 8.5 Abnormal 4.5 - 8.0 [facility] Protein Ql (U) Negative Negative mg/dL [facility] SPECIFIC GRAVITY UA (POCT) 1.015 1.005 - 1.030 [facility] UROBILINOGEN UA (POCT) 0.2 E.U./dL Normal E.U./dL [facility] VALENTE SCREENING W Marlene 06-25 [facility] STREP A MOLECULAR (POC)on Procedural Control Valid [facility] Strep A (POCT) Negative Negative [facility] STREP A MOLECULAR (POC)on Procedural Control Valid [facility] Strep A (POCT) Negative Negative [facility] X[facility] CHEST [facility] FRONTAL[facility] and Lateralon IMPRESSION: No acute radiographic abnormality. 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 Lungs and pleura: No consolidation. No lung mass. No pleural effusion. No pneumothorax. Cardiomediastinal silhouette: Normal cardiomediastinal silhouette. Bones and soft tissues: Orthopedic hardware overlies the lower cervical region Degenerative change and osteophytosis within the mid thoracic spine [id number]_ USE_DIVISIO N OF RADIOLOGY Provider, Precious Ramirez - 09/03/2021 * * *Final Report* * * DATE OF EXAM: Sep 03 2021 3:36PM [facility] [id number] - XR CHEST 2V FRONTAL/LAT / PROCEDURE REASON: COVID * * * * Physician Interpretation * * * * EXAMINATION: CHEST RADIOGRAPH (2 VIEW FRONTAL & LATERAL) CLINICAL HISTORY: COVID MQ: XC2_6 EXAM DATE/TIME: 09/03/2021 3:36 PM COMPARISON: 04/04/2016 RESULT: Lines, tubes, and devices: None. Lungs and pleura: No consolidation. No lung mass. No pleural effusion. No pneumothorax. Cardiomediastinal silhouette: Normal cardiomediastinal silhouette. Bones and soft tissues: Orthopedic hardware overlies the lower cervical region Degenerative change and osteophytosis within the mid thoracic spine IMPRESSION IMPRESSION: No acute radiographic abnormality. 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 Transcribe Date/Time: Sep 03 2021 3:39P Dictated by : JAYLON ROBLES MD This examination was interpreted and the report reviewed and electronically signed by: JAYLON ROBLES MD on Sep 03 2021 3:40PM EST [facility] Radiology Study observation (narrative) [facility] XR Chest PA and LateralOrder ed By: Cc Provider on 09-03-2021 [facility] Vital Signs Date Time Vital Sign Value Performing Clinician Major baires 10-17-2024 14:09-0400 Body mass index (BMI) [Ratio] 27.17 kg/m2 Sanjay Yates COCOA ROOM OPERATOR.OPERATOR HELPER Work Phone: [facility] 10-17-2024 14:09-0400 Body weight 78.7 kg Sanjay Yates COCOA ROOM OPERATOR.OPERATOR HELPER Work Phone: [facility] 10-17-2024 14:09-0400 Diastolic blood pressure 58 mm[Hg] Sanjay Yates COCOA ROOM OPERATOR.OPERATOR HELPER Work Phone: [facility] 10-17-2024 14:09-0400 Heart rate 77 /min Sanjay Yates COCOA ROOM OPERATOR.OPERATOR HELPER Work Phone: [facility] 10-17-2024 14:09-0400 Respiratory rate 16 /min Sanjay Yates COCOA ROOM OPERATOR.OPERATOR HELPER Work Phone: [facility] 10-17-2024 14:09-0400 SaO2% (BldA) [Mass fraction] 95 % Sanjay Yates COCOA ROOM OPERATOR.OPERATOR HELPER Work Phone: [facility] 10-17-2024 14:09-0400 Systolic blood pressure 102 mm[Hg] Sanjay Yates COCOA ROOM OPERATOR.OPERATOR HELPER Work Phone: [facility] 09-18-2024 13:23-0400 Body mass index (BMI) [Ratio] 27.07 kg/m2 Sajnay Yates COCOA ROOM OPERATOR.OPERATOR HELPER Work Phone: [facility] 09-18-2024 13:23-0400 Body weight 78.4 kg Sanjay Yates COCOA ROOM OPERATOR.OPERATOR HELPER Work Phone: [facility] 09-18-2024 13:23-0400 Diastolic blood pressure 67 mm[Hg] Sanjay Yates COCOA ROOM OPERATOR.OPERATOR HELPER Work Phone: [facility] 09-18-2024 13:23-0400 Heart rate 82 /min Sanjay Yates COCOA ROOM OPERATOR.OPERATOR HELPER Work Phone: [facility] 09-18-2024 13:23-0400 Respiratory rate 16 /min Sanjay Yates COCOA ROOM OPERATOR.OPERATOR HELPER Work Phone: [facility] 09-18-2024 13:23-0400 Systolic blood pressure 114 mm[Hg] Sanjay Yates COCOA ROOM OPERATOR.OPERATOR HELPER Work Phone: [facility] 08-31-2024 15:17-0400 Body mass index (BMI) [Ratio] 27.35 kg/m2 Sanjay Yates COCOA ROOM OPERATOR.OPERATOR HELPER Work Phone: [facility] 08-31-2024 15:17-0400 Body temperature 99 [degF] Sanjay Yates COCOA ROOM OPERATOR.OPERATOR HELPER Work Phone: [facility] 08-31-2024 15:17-0400 Body weight 79.2 kg Sanjay Yates COCOA ROOM OPERATOR.OPERATOR HELPER Work Phone: [facility] 08-31-2024 15:17-0400 Diastolic blood pressure 71 mm[Hg] Sanjay Yates COCOA ROOM OPERATOR.OPERATOR HELPER Work Phone: [facility] 08-31-2024 15:17-0400 Heart rate 91 /min Sanjay Yates COCOA ROOM OPERATOR.OPERATOR HELPER Work Phone: [facility] 08-31-2024 15:17-0400 Respiratory rate 16 /min Sanjay Yates COCOA ROOM OPERATOR.OPERATOR HELPER Work Phone: [facility] 08-31-2024 15:17-0400 Systolic blood pressure 113 mm[Hg] Sanjay Yates COCOA ROOM OPERATOR.OPERATOR HELPER Work Phone: [facility] 07-25-2024 18:45-0400 Body height 170.2 cm Eriberto Tovar MD Work Phone: [facility] 07-25-2024 18:45-0400 Body mass index (BMI) [Ratio] 26.86 kg/m2 Eriberto Tovar MD Work Phone: [facility] 07-25-2024 18:45-0400 Body temperature 99.9 [degF] Eriberto Tovar MD Work Phone: [facility] 07-25-2024 18:45-0400 Body weight 77.8 kg Eriberto Tovar MD Work Phone: [facility] 07-25-2024 18:45-0400 Diastolic blood pressure 67 mm[Hg] Eriberto Tovar MD Work Phone: [facility] 07-25-2024 18:45-0400 Heart rate 90 /min Eriberto Tovar MD Work Phone: [facility] 07-25-2024 18:45-0400 Respiratory rate 16 /min Eriberto Tovar MD Work Phone: [facility] 07-25-2024 18:45-0400 SaO2% (BldA) [Mass fraction] 96 % Eriberto Tovar MD Work Phone: [facility] 07-25-2024 18:45-0400 Systolic blood pressure 112 mm[Hg] Eriberto Tovar MD Work Phone: [facility] 07-20-2024 14:22-0400 Body mass index (BMI) [Ratio] 26.64 kg/m2 Sanjay Yates COCOA ROOM OPERATOR.OPERATOR HELPER Work Phone: [facility] 07-20-2024 14:22-0400 Body temperature 99.7 [degF] Sanjay Yates COCOA ROOM OPERATOR.OPERATOR HELPER Work Phone: [facility] 07-20-2024 14:22-0400 Body weight 76 kg Sanjay Yates COCOA ROOM OPERATOR.OPERATOR HELPER Work Phone: [facility] 07-20-2024 14:22-0400 Diastolic blood pressure 65 mm[Hg] Sanjay Yates COCOA ROOM OPERATOR.OPERATOR HELPER Work Phone: [facility] 07-20-2024 14:22-0400 Heart rate 83 /min Sanjay Yates COCOA ROOM OPERATOR.OPERATOR HELPER Work Phone: [facility] 07-20-2024 14:22-0400 Respiratory rate 16 /min Sanjay Yates COCOA ROOM OPERATOR.OPERATOR HELPER Work Phone: [facility] 07-20-2024 14:22-0400 Systolic blood pressure 104 mm[Hg] Sanjay Yates COCOA ROOM OPERATOR.OPERATOR HELPER Work Phone: [facility] 07-10-2024 11:59-0400 Body mass index (BMI) [Ratio] 26.95 kg/m2 Sanjay Yates COCOA ROOM OPERATOR.OPERATOR HELPER Work Phone: [facility] 07-10-2024 11:59-0400 Body temperature 97.5 [degF] Sanjay Yates COCOA ROOM OPERATOR.OPERATOR HELPER Work Phone: [facility] 07-10-2024 11:59-0400 Body weight 76.9 kg Sanjay Yates COCOA ROOM OPERATOR.OPERATOR HELPER Work Phone: [facility] 07-10-2024 11:59-0400 Diastolic blood pressure 72 mm[Hg] Sanjay Yates COCOA ROOM OPERATOR.OPERATOR HELPER Work Phone: [facility] 07-10-2024 11:59-0400 Heart rate 82 /min Sanjay Yates COCOA ROOM OPERATOR.OPERATOR HELPER Work Phone: [facility] 07-10-2024 11:59-0400 SaO2% (BldA) [Mass fraction] 98 % Sanjay Yates COCOA ROOM OPERATOR.OPERATOR HELPER Work Phone: [facility] 07-10-2024 11:59-0400 Systolic blood pressure 121 mm[Hg] Sanjay Yates COCOA ROOM OPERATOR.OPERATOR HELPER Work Phone: [facility] 07-04-2024 14:23-0400 Body mass index (BMI) [Ratio] 27.55 kg/m2 Sanjay Yates COCOA ROOM OPERATOR.OPERATOR HELPER Work Phone: [facility] 07-04-2024 14:23-0400 Body weight 78.6 kg Sanjay Yates COCOA ROOM OPERATOR.OPERATOR HELPER Work Phone: [facility] 07-04-2024 14:23-0400 Diastolic blood pressure 64 mm[Hg] Sanjay Yates COCOA ROOM OPERATOR.OPERATOR HELPER Work Phone: [facility] 07-04-2024 14:23-0400 Heart rate 85 /min Sanjay Yates COCOA ROOM OPERATOR.OPERATOR HELPER Work Phone: [facility] 07-04-2024 14:23-0400 Respiratory rate 16 /min Sanjay Yates COCOA ROOM OPERATOR.OPERATOR HELPER Work Phone: [facility] 07-04-2024 14:23-0400 SaO2% (BldA) [Mass fraction] 96 % Sanjay Yates COCOA ROOM OPERATOR.OPERATOR HELPER Work Phone: [facility] 07-04-2024 14:23-0400 Systolic blood pressure 112 mm[Hg] Sanjay Yates COCOA ROOM OPERATOR.OPERATOR HELPER Work Phone: [facility] 07-01-2024 13:31-0400 Body mass index (BMI) [Ratio] 27.37 kg/m2 Isidoro Wilson COCOA ROOM OPERATOR.BODY TEAM MEMBER Work Phone: [facility] 07-01-2024 13:31-0400 Body temperature 98.2 [degF] Isidoro Wilson COCOA ROOM OPERATOR.BODY TEAM MEMBER Work Phone: [facility] 07-01-2024 13:31-0400 Body weight 78.1 kg Isidoro Wilson COCOA ROOM OPERATOR.BODY TEAM MEMBER Work Phone: [facility] 07-01-2024 13:31-0400 Diastolic blood pressure 80 mm[Hg] Isidoro Wilson COCOA ROOM OPERATOR.BODY TEAM MEMBER Work Phone: [facility] 07-01-2024 13:31-0400 Heart rate 82 /min Isidoro Wilson COCOA ROOM OPERATOR.BODY TEAM MEMBER Work Phone: [facility] 07-01-2024 13:31-0400 Respiratory rate 16 /min Isidoro Wilson COCOA ROOM OPERATOR.BODY TEAM MEMBER Work Phone: [facility] 07-01-2024 13:31-0400 SaO2% (BldA) [Mass fraction] 96 % Isidoro Wilson COCOA ROOM OPERATOR.BODY TEAM MEMBER Work Phone: [facility] 07-01-2024 13:31-0400 Systolic blood pressure 122 mm[Hg] Isidoro Wilson COCOA ROOM OPERATOR.BODY TEAM MEMBER Work Phone: [facility] 06-22-2024 14:08-0400 Body mass index (BMI) [Ratio] 27.35 kg/m2 Gabriela Britt COCOA ROOM OPERATOR.BODY TEAM MEMBER Work Phone: [facility] 06-22-2024 14:08-0400 Body weight 78.02 kg Gabriela Britt APRN.BODY TEAM MEMBER Work Phone: [facility] 06-22-2024 14:08-0400 Diastolic blood pressure 78 mm[Hg] Gabriela Britt APRN.BODY TEAM MEMBER Work Phone: [facility] 06-22-2024 14:08-0400 Systolic blood pressure 126 mm[Hg] Gabriela Britt APRN.BODY TEAM MEMBER Work Phone: [facility] 06-19-2024 14:30-0400 Body height 168.9 cm Eriberto Tovar MD Work Phone: [facility] 06-19-2024 14:30-0400 Body mass index (BMI) [Ratio] 27.37 kg/m2 Eriberto Tovar MD Work Phone: [facility] 06-19-2024 14:30-0400 Body weight 78.1 kg Eriberto Tovar MD Work Phone: [facility] 06-19-2024 14:30-0400 Diastolic blood pressure 65 mm[Hg] Eriberto Tovar MD Work Phone: [facility] 06-19-2024 14:30-0400 Heart rate 74 /min Eriberto Tovar MD Work Phone: [facility] 06-19-2024 14:30-0400 Systolic blood pressure 111 mm[Hg] Eriberto Tovar MD Work Phone: [facility] 03-14-2024 15:39-0500 Body mass index (BMI) [Ratio] 26.53 kg/m2 Eriberto Tovar MD Work Phone: [facility] 03-14-2024 15:39-0500 Body temperature 98.01 [degF] Eriberto Tovar MD Work Phone: [facility] 03-14-2024 15:39-0500 Body weight 75.7 kg Eriberto Tovar MD Work Phone: [facility] 03-14-2024 15:39-0500 Diastolic blood pressure 68 mm[Hg] Eriberto Tovar MD Work Phone: [facility] 03-14-2024 15:39-0500 Heart rate 81 /min Eriberto Tovar MD Work Phone: [facility] 03-14-2024 15:39-0500 Respiratory rate 16 /min Eriberto Tovar MD Work Phone: [facility] 03-14-2024 15:39-0500 SaO2% (BldA) [Mass fraction] 97 % Eriberto Tovar MD Work Phone: [facility] 03-14-2024 15:39-0500 Systolic blood pressure 118 mm[Hg] Eriberto Tovar MD Work Phone: [facility] 02-28-2024 15:45-0500 Body mass index (BMI) [Ratio] 26.22 kg/m2 Richy Jaime COCOA ROOM OPERATOR.BODY TEAM MEMBER Work Phone: [facility] 02-28-2024 15:45-0500 Body weight 74.8 kg Richy Jaime COCOA ROOM OPERATOR.BODY TEAM MEMBER Work Phone: [facility] 02-28-2024 15:45-0500 Diastolic blood pressure 60 mm[Hg] Richy Jaime COCOA ROOM OPERATOR.BODY TEAM MEMBER Work Phone: [facility] 02-28-2024 15:45-0500 Heart rate 94 /min Richy Jaime COCOA ROOM OPERATOR.BODY TEAM MEMBER Work Phone: [facility] 02-28-2024 15:45-0500 SaO2% (BldA) [Mass fraction] 98 % Richy Jaime COCOA ROOM OPERATOR.BODY TEAM MEMBER Work Phone: [facility] 02-28-2024 15:45-0500 Systolic blood pressure 108 mm[Hg] Richy Jaime COCOA ROOM OPERATOR.BODY TEAM MEMBER Work Phone: [facility] 02-28-2024 13:49-0500 Body mass index (BMI) [Ratio] 26.36 kg/m2 Stanley Blair COCOA ROOM OPERATOR.CNM Work Phone: [facility] 02-28-2024 13:49-0500 Body weight 75.21 kg Stanley Blair COCOA ROOM OPERATOR.CNM Work Phone: [facility] 02-28-2024 13:49-0500 Diastolic blood pressure 62 mm[Hg] Stanley Blair COCOA ROOM OPERATOR.CNM Work Phone: [facility] 02-28-2024 13:49-0500 Systolic blood pressure 102 mm[Hg] Stanley Blair COCOA ROOM OPERATOR.CNM Work Phone: [facility] 01-27-2024 12:54-0400 Diastolic blood pressure 61 mm[Hg] Jone Choe MD Work Phone: [facility] 01-27-2024 12:54-0400 Heart rate 70 /min Jone Choe MD Work Phone: [facility] 01-27-2024 12:54-0400 Respiratory rate 16 /min Jone Choe MD Work Phone: [facility] 01-27-2024 12:54-0400 SaO2% (BldA) [Mass fraction] 96 % Jone Choe MD Work Phone: [facility] 01-27-2024 12:54-0400 Systolic blood pressure 117 mm[Hg] Jone Choe MD Work Phone: [facility] 01-27-2024 11:47-0400 Body mass index (BMI) [Ratio] 27.55 kg/m2 Jone Choe MD Work Phone: [facility] 01-27-2024 11:47-0400 Body temperature 97.5 [degF] Jone Choe MD Work Phone: [facility] 01-27-2024 11:47-0400 Body weight 78.6 kg Jone Choe MD Work Phone: [facility] 01-20-2024 15:14-0400 Body mass index (BMI) [Ratio] 26.88 kg/m2 Eriberto Tovar MD Work Phone: [facility] 01-20-2024 15:14-0400 Body weight 76.7 kg Eriberto Tovar MD Work Phone: [facility] 01-20-2024 15:14-0400 Diastolic blood pressure 73 mm[Hg] Eriberto Tovar MD Work Phone: [facility] 01-20-2024 15:14-0400 Heart rate 76 /min Eriberto Tovar MD Work Phone: [facility] 01-20-2024 15:14-0400 Respiratory rate 16 /min Eriberto Tovar MD Work Phone: [facility] 01-20-2024 15:14-0400 Systolic blood pressure 129 mm[Hg] Eriberto Tovar MD Work Phone: [facility] 12-15-2023 14:57-0400 Body height 168.9 cm Mayela Juan Manuel COCOA ROOM OPERATOR.BODY TEAM MEMBER Work Phone: [facility] 12-15-2023 14:57-0400 Body mass index (BMI) [Ratio] 27.54 kg/m2 Mayela Juan Manuel COCOA ROOM OPERATOR.BODY TEAM MEMBER Work Phone: [facility] 12-15-2023 14:57-0400 Body temperature 98.01 [degF] Mayela Juan Manuel COCOA ROOM OPERATOR.BODY TEAM MEMBER Work Phone: [facility] 12-15-2023 14:57-0400 Body weight 78.56 kg Mayela Juan Manuel COCOA ROOM OPERATOR.BODY TEAM MEMBER Work Phone: [facility] 12-15-2023 14:57-0400 Diastolic blood pressure 82 mm[Hg] Mayela Juan Manuel COCOA ROOM OPERATOR.BODY TEAM MEMBER Work Phone: [facility] 12-15-2023 14:57-0400 Heart rate 100 /min Mayela Juan Manuel COCOA ROOM OPERATOR.BODY TEAM MEMBER Work Phone: [facility] 12-15-2023 14:57-0400 SaO2% (BldA) [Mass fraction] 97 % Mayela Juan Manuel COCOA ROOM OPERATOR.BODY TEAM MEMBER Work Phone: [facility] 12-15-2023 14:57-0400 Systolic blood pressure 120 mm[Hg] Mayela Juan Manuel COCOA ROOM OPERATOR.BODY TEAM MEMBER Work Phone: [facility] 11-24-2023 17:35-0400 Body mass index (BMI) [Ratio] 27.5 kg/m2 Eriberto Tovar MD Work Phone: [facility] 11-24-2023 17:35-0400 Body temperature 98.29 [degF] Eriberto Tovar MD Work Phone: [facility] 11-24-2023 17:35-0400 Body weight 79 kg Eriberto Tovar MD Work Phone: [facility] 11-24-2023 17:35-0400 Diastolic blood pressure 62 mm[Hg] Eriberto Tovar MD Work Phone: [facility] 11-24-2023 17:35-0400 Heart rate 86 /min Eriebrto Tovar MD Work Phone: [facility] 11-24-2023 17:35-0400 Respiratory rate 18 /min Eriberto Tovar MD Work Phone: [facility] 11-24-2023 17:35-0400 SaO2% (BldA) [Mass fraction] 97 % Eriberto Tovar MD Work Phone: [facility] 11-24-2023 17:35-0400 Systolic blood pressure 114 mm[Hg] Eriberto Tovar MD Work Phone: [facility] 09-03-2023 15:43-0400 Diastolic blood pressure 70 mm[Hg] Eriberto Tovar MD Work Phone: [facility] 09-03-2023 15:43-0400 Systolic blood pressure 120 mm[Hg] Eriberto Tovar MD Work Phone: [facility] 09-03-2023 15:04-0400 Body height 169.5 cm Eriberto Tovar MD Work Phone: [facility] 09-03-2023 15:04-0400 Body mass index (BMI) [Ratio] 27.47 kg/m2 Eriberto Tovar MD Work Phone: [facility] 09-03-2023 15:04-0400 Body temperature 98.1 [degF] Eriberto Tovar MD Work Phone: [facility] 09-03-2023 15:04-0400 Body weight 78.93 kg Eriberto Tovar MD Work Phone: [facility] 09-03-2023 15:04-0400 Heart rate 88 /min Eriberto Tovar MD Work Phone: [facility] 09-03-2023 15:04-0400 Respiratory rate 18 /min Eriberto Tovar MD Work Phone: [facility] 09-03-2023 15:04-0400 SaO2% (BldA) [Mass fraction] 97 % Eriberto Tovar MD Work Phone: [facility] 06-14-2023 15:08-0400 Body height 170.2 cm Vania Rodas CNP Work Phone: [facility] 06-14-2023 15:08-0400 Body mass index (BMI) [Ratio] 26.94 kg/m2 Vania Rodas CNP Work Phone: [facility] 06-14-2023 15:08-0400 Body weight 78.02 kg Vania Rodas CNP Work Phone: [facility] 12-10-2022 15:12-0400 Body temperature 98.2 [degF] Sonido Frankie COCOA ROOM OPERATOR.BODY TEAM MEMBER Work Phone: [facility] 12-10-2022 15:12-0400 Body weight 83.1 kg Sonido Frankie COCOA ROOM OPERATOR.BODY TEAM MEMBER Work Phone: [facility] 12-10-2022 15:12-0400 Diastolic blood pressure 79 mm[Hg] Sonido Frankie COCOA ROOM OPERATOR.BODY TEAM MEMBER Work Phone: [facility] 12-10-2022 15:12-0400 Heart rate 84 /min Sonido Frankie COCOA ROOM OPERATOR.BODY TEAM MEMBER Work Phone: [facility] 12-10-2022 15:12-0400 Respiratory rate 18 /min Sonido Frankie COCOA ROOM OPERATOR.BODY TEAM MEMBER Work Phone: [facility] 12-10-2022 15:12-0400 SaO2% (BldA) [Mass fraction] 97 % Sonido David COCOA ROOM OPERATOR.BODY TEAM MEMBER Work Phone: [facility] 12-10-2022 15:12-0400 Systolic blood pressure 137 mm[Hg] Sonido David COCOA ROOM OPERATOR.BODY TEAM MEMBER Work Phone: [facility] 08-03-2022 13:37-0400 Body temperature 98.49 [degF] Martha Praisler-Wood COCOA ROOM OPERATOR.BODY TEAM MEMBER Work Phone: [facility] 08-03-2022 13:37-0400 Body weight 83.92 kg Martha Praisler-Wood COCOA ROOM OPERATOR.BODY TEAM MEMBER Work Phone: [facility] 08-03-2022 13:37-0400 Diastolic blood pressure 70 mm[Hg] Martha Praisler-Wood COCOA ROOM OPERATOR.BODY TEAM MEMBER Work Phone: [facility] 08-03-2022 13:37-0400 Heart rate 80 /min Martha Praisler-Wood COCOA ROOM OPERATOR.BODY TEAM MEMBER Work Phone: [facility] 08-03-2022 13:37-0400 Respiratory rate 17 /min Martha Praisler-Wood COCOA ROOM OPERATOR.BODY TEAM MEMBER Work Phone: [facility] 08-03-2022 13:37-0400 SaO2% (BldA) [Mass fraction] 97 % Martha Praisler-Wood COCOA ROOM OPERATOR.BODY TEAM MEMBER Work Phone: [facility] 08-03-2022 13:37-0400 Systolic blood pressure 122 mm[Hg] Martha Praisler-Wood COCOA ROOM OPERATOR.BODY TEAM MEMBER Work Phone: [facility] 07-23-2022 15:32-0400 Body temperature 98.01 [degF] Kailey Perez COCOA ROOM OPERATOR.BODY TEAM MEMBER Work Phone: [facility] 07-23-2022 15:32-0400 Body weight 81.28 kg Kailey Perez COCOA ROOM OPERATOR.BODY TEAM MEMBER Work Phone: [facility] 07-23-2022 15:32-0400 Diastolic blood pressure 82 mm[Hg] Kailey Perez COCOA ROOM OPERATOR.BODY TEAM MEMBER Work Phone: [facility] 07-23-2022 15:32-0400 Heart rate 81 /min Kailey Perez APRN.BODY TEAM MEMBER Work Phone: [facility] 07-23-2022 15:32-0400 Respiratory rate 16 /min Kailey Perez APRN.BODY TEAM MEMBER Work Phone: [facility] 07-23-2022 15:32-0400 SaO2% (BldA) [Mass fraction] 99 % Kailey Perez APRN.BODY TEAM MEMBER Work Phone: [facility] 07-23-2022 15:32-0400 Systolic blood pressure 138 mm[Hg] Kailey Perez COCOA ROOM OPERATOR.BODY TEAM MEMBER Work Phone: [facility] 05-08-2022 19:10-0500 Body temperature 99.19 [degF] Eriberto Tovar MD Work Phone: [facility] 05-08-2022 19:10-0500 Body weight 80.74 kg Eriberto Tovar MD Work Phone: [facility] 05-08-2022 19:10-0500 Diastolic blood pressure 85 mm[Hg] Eriberto Tovar MD Work Phone: [facility] 05-08-2022 19:10-0500 Heart rate 93 /min Eriberto Tovar MD Work Phone: [facility] 05-08-2022 19:10-0500 Respiratory rate 18 /min Eriberto Tovar MD Work Phone: [facility] 05-08-2022 19:10-0500 Systolic blood pressure 149 mm[Hg] Eriberto Tovar MD Work Phone: [facility] 04-21-2022 17:03-0500 Body temperature 97.81 [degF] Asiya Boyle PA-C Work Phone: [facility] 04-21-2022 17:03-0500 Body weight 80.47 kg Asiya Denbow PA-C Work Phone: [facility] 04-21-2022 17:03-0500 Diastolic blood pressure 84 mm[Hg] Asiya Denbow PA-C Work Phone: [facility] 04-21-2022 17:03-0500 Heart rate 81 /min Asiya Denbow PA-C Work Phone: [facility] 04-21-2022 17:03-0500 Respiratory rate 16 /min Asiya Denbow PA-C Work Phone: [facility] 04-21-2022 17:03-0500 SaO2% (BldA) [Mass fraction] 98 % Asiya Denbow PA-C Work Phone: [facility] 04-21-2022 17:03-0500 Systolic blood pressure 144 mm[Hg] Asiya Denbow PA-C Work Phone: [facility] 04-12-2022 15:22-0500 Body temperature 98.29 [degF] Julieth Bergman [facility] 04-12-2022 15:22-0500 Body weight 78.93 kg Julieth Bergman [facility] 04-12-2022 15:22-0500 Diastolic blood pressure 80 mm[Hg] Julieth Bergman [facility] 04-12-2022 15:22-0500 Heart rate 76 /min Moeislywilberto Franklingg [facility] 04-12-2022 15:22-0500 Respiratory rate 16 /min Denislywilberto Franklingg [facility] 04-12-2022 15:22-0500 SaO2% (BldA) [Mass fraction] 97 % Julieth Bergman [facility] 04-12-2022 15:22-0500 Systolic blood pressure 134 mm[Hg] Julieth Bergman [facility] 01-25-2022 13:56-0400 Body temperature 98.2 [degF] Raina Tse APRN.CNP Work Phone: [facility] 01-25-2022 13:56-0400 Body weight 79.74 kg Raina Dedrick COCOA ROOM OPERATOR.BODY TEAM MEMBER Work Phone: [facility] 01-25-2022 13:56-0400 Diastolic blood pressure 80 mm[Hg] Raina Dedrick COCOA ROOM OPERATOR.BODY TEAM MEMBER Work Phone: [facility] 01-25-2022 13:56-0400 Heart rate 82 /min Raina Dedrick COCOA ROOM OPERATOR.BODY TEAM MEMBER Work Phone: [facility] 01-25-2022 13:56-0400 Respiratory rate 18 /min Raina Dedrick COCOA ROOM OPERATOR.BODY TEAM MEMBER Work Phone: [facility] 01-25-2022 13:56-0400 SaO2% (BldA) [Mass fraction] 97 % Raina Dedrick COCOA ROOM OPERATOR.BODY TEAM MEMBER Work Phone: [facility] 01-25-2022 13:56-0400 Systolic blood pressure 136 mm[Hg] Raina Dedrick COCOA ROOM OPERATOR.BODY TEAM MEMBER Work Phone: [facility] 01-01-2022 16:48-0400 Body temperature 97.59 [degF] Martha Praisler-Wood COCOA ROOM OPERATOR.BODY TEAM MEMBER Work Phone: [facility] 01-01-2022 16:48-0400 Body weight 78.74 kg Martha Praisler-Wood COCOA ROOM OPERATOR.BODY TEAM MEMBER Work Phone: [facility] 01-01-2022 16:48-0400 Diastolic blood pressure 82 mm[Hg] Martha Praisler-Wood COCOA ROOM OPERATOR.BODY TEAM MEMBER Work Phone: [facility] 01-01-2022 16:48-0400 Heart rate 78 /min Martha Praisler-Wood COCOA ROOM OPERATOR.BODY TEAM MEMBER Work Phone: [facility] 01-01-2022 16:48-0400 Respiratory rate 18 /min Martha Praisler-Wood COCOA ROOM OPERATOR.BODY TEAM MEMBER Work Phone: [facility] 01-01-2022 16:48-0400 SaO2% (BldA) [Mass fraction] 96 % Martha Praisler-Wood COCOA ROOM OPERATOR.BODY TEAM MEMBER Work Phone: [facility] 01-01-2022 16:48-0400 Systolic blood pressure 128 mm[Hg] Martha Meier APRN.BODY TEAM MEMBER Work Phone: [facility] 11-05-2021 12:32-0400 Body temperature 98.1 [degF] Abraham Garcia MD Work Phone: [facility] 11-05-2021 12:32-0400 Body weight 77.38 kg Abraham Garcia MD Work Phone: [facility] 11-05-2021 12:32-0400 Diastolic blood pressure 88 mm[Hg] Abraham Garcia MD Work Phone: [facility] 11-05-2021 12:32-0400 Heart rate 80 /min Abraham Garcia MD Work Phone: [facility] 11-05-2021 12:32-0400 Respiratory rate 21 /min Abraham Garcia MD Work Phone: [facility] 11-05-2021 12:32-0400 SaO2% (BldA) [Mass fraction] 96 % Abraham Garcia MD Work Phone: [facility] 11-05-2021 12:32-0400 Systolic blood pressure 154 mm[Hg] Abraham Garcia MD Work Phone: [facility] 10-30-2021 13:52-0400 Body height 170.2 cm Gabriela Britt APRN.BODY TEAM MEMBER Work Phone: [facility] 10-30-2021 13:52-0400 Body weight 76.66 kg Gabriela Britt APRN.BODY TEAM MEMBER Work Phone: [facility] 10-30-2021 13:52-0400 Diastolic blood pressure 76 mm[Hg] Gabriela Britt APRN.BODY TEAM MEMBER Work Phone: [facility] 10-30-2021 13:52-0400 Systolic blood pressure 128 mm[Hg] Gabriela Britt APRN.BODY TEAM MEMBER Work Phone: [facility] 09-03-2021 15:18-0400 Body temperature 98.29 [degF] Hayde Jay COCOA ROOM OPERATOR.BODY TEAM MEMBER Work Phone: [facility] 09-03-2021 15:18-0400 Body weight 79.38 kg Hayde Jay COCOA ROOM OPERATOR.BODY TEAM MEMBER Work Phone: [facility] 09-03-2021 15:18-0400 Diastolic blood pressure 82 mm[Hg] Hayde Jay COCOA ROOM OPERATOR.BODY TEAM MEMBER Work Phone: [facility] 09-03-2021 15:18-0400 Heart rate 90 /min Hayde Jay COCOA ROOM OPERATOR.BODY TEAM MEMBER Work Phone: [facility] 09-03-2021 15:18-0400 Respiratory rate 18 /min Hayde Jay COCOA ROOM OPERATOR.BODY TEAM MEMBER Work Phone: [facility] 09-03-2021 15:18-0400 SaO2% (BldA) [Mass fraction] 95 % Hayde Jay COCOA ROOM OPERATOR.BODY TEAM MEMBER Work Phone: [facility] 09-03-2021 15:18-0400 Systolic blood pressure 134 mm[Hg] Hayde Jay COCOA ROOM OPERATOR.BODY TEAM MEMBER Work Phone: [facility] 06-26-2021 16:04-0400 Body temperature 98.4 [degF] Martha Praisler-Wood COCOA ROOM OPERATOR.BODY TEAM MEMBER Work Phone: [facility] 06-26-2021 16:04-0400 Body weight 80.47 kg Martha Praisler-Wood COCOA ROOM OPERATOR.BODY TEAM MEMBER Work Phone: [facility] 06-26-2021 16:04-0400 Diastolic blood pressure 86 mm[Hg] Martha Praisler-Wood COCOA ROOM OPERATOR.BODY TEAM MEMBER Work Phone: [facility] 06-26-2021 16:04-0400 Heart rate 80 /min Martha Praisler-Wood COCOA ROOM OPERATOR.BODY TEAM MEMBER Work Phone: [facility] 06-26-2021 16:04-0400 Respiratory rate 18 /min Martha Praisler-Wood COCOA ROOM OPERATOR.BODY TEAM MEMBER Work Phone: [facility] 06-26-2021 16:04-0400 SaO2% (BldA) [Mass fraction] 97 % Martha Meier COCOA ROOM OPERATOR.BODY TEAM MEMBER Work Phone: [facility] 06-26-2021 16:04-0400 Systolic blood pressure 156 mm[Hg] Martha Meier COCOA ROOM OPERATOR.BODY TEAM MEMBER Work Phone: [facility] Encounters Encounter Date Encounter Type Care Provider Facility Start: 11-07-[address] JOSE L NAYLOR MD Facility:[facility] Start: 11-07-2024 End: 11-09-[address] JOSE L BARRIOS MD [facility] Start: 11-02-2024 End: 11-02-2024 ambulatory Justine Vineet Facility:[facility] Start: 10-23-2024 End: 11-02-2024 Telephone encounter Sanjay Yates APRN.OPERATOR HELPER Work Phone: [facility] Comment on above: Forms Start: 10-20-2024 End: 10-24-2024 ambulatory Sanjay Yates APRN.OPERATOR HELPER Work Phone: [facility] [place] Comment on above: Question of results Start: 10-17-2024 End: 10-17-2024 [facility] Start: 10-17-2024 Encounter for other [facility]procedural [facility] Start: 10-17-2024 End: 10-17-2024 Office outpatient visit 25 minutes Sanjay Yates APRN.OPERATOR HELPER Work Phone: [facility] Comment on above: Preop exam for inter nal medicine (Primary Dx); Chronic pain of right knee; Obstructive sleep apnea; Primary hypertension; Primary osteoarthritis of right knee Start: 10-17-2024 End: 10-17-2024 Patient encounter status Sanjay Yates APRN.OPERATOR HELPER Work Phone: [facility] Work Phone: Start: 10-17-2024 End: 10-17-2024 ambulatory ERIBERTO TOVAR Facility:[facility] Start: 10-12-2024 End: 10-12-[address] [facility] Facility:[facility] Start: 10-11-2024 End: 10-11-[address] JOSE L BARRIOS MD [facility] Start: 10-11-2024 End: 10-11-[address] JOSE L BARRIOS MD Facility:[facility] Start: 09-22-2024 End: 09-22-2024 ambulatory Justine delano Facility:[facility] Start: 09-18-2024 End: 09-18-2024 Office outpatient visit 25 minutes Sanjay Yates COCOA ROOM OPERATOR.OPERATOR HELPER Work Phone: [facility] [place] Comment on above: Obstructive sleep ap fina (Primary Dx); Mixed hyperlipidemia; Encounter for immunization; Generalized anxiety disorder; Moderate recurrent major depression (HCC); Anemia, unspecified type; Vitamin D deficiency Start: 09-18-2024 End: 09-18-2024 ambulatory [facility] Facility:[facility] Start: 09-08-2024 End: 09-08-2024 [facility] Start: 09-05-2024 Encounter for other preprocedural examination Jose L Barrios [facility] Start: 08-31-2024 End: 08-31-2024 Office outpatient visit 15 minutes Sanjay Yates COCOA ROOM OPERATOR.OPERATOR HELPER Work Phone: [facility] [place] Comment on above: Hemarthrosis of left knee (Primary Dx); Chronic pain of left knee; Effusion of left knee Start: 08-31-2024 End: 08-31-2024 ambulatory SANJAY DODSON Facility:[facility] Start: 08-24-2024 End: 08-24-2024 ambulatory Tara Moser Facility:[facility] Start: 08-23-2024 ambulatory Sanjay Moe Facilit y:[facility] Start: 08-23-2024 End: 08-24-2024 Evaluation and management of inpatient Sanjay Moe Facility:[facility] Start: 08-11-2024 End: 08-11-2024 ambulatory Justine Romano [facility] Start: 08-02-2024 ambulatory Nahumjl Parraori [facility] Start: 08-02-2024 End: 08-02-2024 [facility] Start: 07-25-2024 End: 07-25-2024 Office outpatient visit 10 minutes Eriberto Tovar MD Work Phone: Internal Medicine [place] Comment on above: Postviral fatigue sy ndrome (Primary Dx); Iron deficiency anemia, unspecified iron deficiency anemia type; Viral cephalgia; Fibromyalgia Start: 07-25-2024 End: 07-25-2024 ambulatory [facility] Facility:[facility] Start: 07-21-2024 End: 09-20-2024 Follow-up encounter Sanjay Yates APRN.OPERATOR HELPER Work Phone: Internal Medicine [place] Start: 07-20-2024 End: 07-20-2024 ambulatory [facility] Facility:[facility] Start: 07-20-2024 End: 07-20-2024 Office outpatient visit 25 minutes Sanjay Yates APRN.OPERATOR HELPER Work Phone: Internal Medicine [place] Comment on above: Flu-like symptoms (P rimary Dx); Acute upper respiratory infection, unspecified; Fever, unspecified fever cause; Family history of rheumatoid arthritis Start: 07-20-2024 End: 07-20-2024 ambulatory [facility] Facility:[facility] Start: 07-19-2024 End: 07-20-2024 ambulatory Sanjay Yates APRN.OPERATOR HELPER Work Phone: Internal Medicine [place] Comment on above: Retest-urinalysis Start: 07-19-2024 End: 07-19-2024 Subsequent hospital visit by physician Bridget [facility] [place] [facility] Work Phone: Radiology Comment on above: Flu-like symptoms [R 68.89] Start: 07-17-2024 End: 07-18-2024 ambulatory Sanjay Yates APRN.OPERATOR HELPER Work Phone: Internal Medicine [place] Comment on above: Need to know next st eps Start: 07-12-2024 Encounter for preprocedural cardiovascular examination [facility] Start: 07-12-2024 End: 07-12-2024 ambulatory [facility] Facility:[facility] Start: 07-11-2024 End: 07-11-2024 Follow-up encounter Sanjay Yates APRN.OPERATOR HELPER Work Phone: Internal Medicine [place] Start: 07-10-2024 End: 07-10-2024 ambulatory ERIBERTO TOVAR Facility:[facility] Start: 07-10-2024 End: 07-10-2024 Office outpatient visit 15 minutes Sanjay Yates APRN.OPERATOR HELPER Work Phone: Internal Medicine [place] Comment on above: Flu-like symptoms (P rimary Dx); Acute upper respiratory infection, unspecified; Primary hypertension Start: 07-07-2024 ambulatory [facility] Start: 07-07-2024 End: 07-07-2024 [facility] Start: 07-06-2024 End: 09-05-2024 Follow-up encounter Sanjay Yates APRN.OPERATOR HELPER Work Phone: Internal Medicine [place] Start: 07-05-2024 End: 07-05-2024 Telephone encounter Eriberto Tovar MD Work Phone: Internal Medicine [place] Comment on above: [facility]ed [facility] Start: 07-04-2024 End: 07-04-2024 [facility] Start: 07-04-2024 End: 07-04-2024 ambulatory ERIBERTO Shweta [facility] Facility:[facility] Start: 07-04-2024 End: 07-04-2024 Office outpatient visit 25 minutes Sanjay Yates APRN.OPERATOR HELPER Work Phone: Internal Medicine [place] Comment on above: Preoperative clearan ce (Primary Dx); Primary osteoarthritis of right knee; Leukocytosis, unspecified type; Abnormal EKG; Iron deficiency anemia, unspecified iron deficiency anemia type Start: 07-04-2024 End: 07-04-2024 Preoperative state Sanjay Yates COCOA ROOM OPERATOR.OPERATOR HELPER Work Phone: [facility] Start: 07-04-2024 End: 07-04-2024 Telephone encounter Eriberto Tovar MD Work Phone: Internal Medicine [place] Comment on above: [facility] Start: 07-03-2024 End: 07-03-2024 [facility] Start: 07-01-2024 End: 07-01-2024 ambulatory [facility] Facility:[facility] Start: 07-01-2024 End: 07-01-2024 Office outpatient visit 15 minutes Isidoro Wilson COCOA ROOM OPERATOR.BODY TEAM MEMBER Work Phone: [facility] Comment on above: Sore throat (Primary Dx); Viral illness Start: 06-28-2024 End: 07-03-2024 Telephone encounter Eriberto Tovar MD Work Phone: Internal Medicine [place] Comment on above: Pre-Surgical Clearan ce Form Start: 06-27-2024 End: 06-27-2024 ambulatory Jose L Pablo Facility:[facility] Start: 06-26-2024 End: 06[facility] Start: 06-22-2024 End: 06-22-2024 ambulatory GABRIELA BRITT Facility:[facility] Start: 06-22-2024 End: 06-22-2024 Patient encounter procedure Gabriela Britt COCOA ROOM OPERATOR.BODY TEAM MEMBER Work Phone: OB/Gynecology Comment on above: Lichen sclerosus et atrophicus (Primary Dx); Chafing; Postmenopausal atrophic vaginitis Start: 06-21-2024 ambulatory [facility] L [facility] Facility: [facility] Start: 06-20-2024 End: 06-20-2024 ambulatory Justine Romano Facility:[facility] Start: 06-19-2024 End: 06-19-2024 ambulatory ERIBERTO Shweta [facility] Facility:[facility] Start: 06-19-2024 End: 06-19-2024 Patient encounter procedure Eriberto Tovar MD Work Phone: Internal Medicine [place] Comment on above: Preoperative evaluat ion to rule out surgical contraindication (Primary Dx); Constipation, unspecified constipation type; Gas pain; Dental infection Start: 06-19-2024 End: 06-19-2024 Patient encounter status Eriberto Tovar MD Work Phone: [facility] Work Phone: Start: 06-05-2024 End: 06-06-2024 Refill Eriberto Tovar MD Work Phone: Internal Medicine [place] Comment on above: Refill Request Start: 05-27-2024 End: 06-14-2024 ambulatory Eriberto Tovar MD Work Phone: Internal Medicine [place] Comment on above: Test results Start: 05-22-2024 End: 05-22-2024 [facility] Start: 05-09-2024 End: 05-10-2024 Refill Eriberto Tovar MD Work Phone: Internal Medicine [place] Comment on above: Refill Request Start: 05-05-2024 End: 05-05-2024 ambulatory Justine Romano Facility:[facility] Start: 05-05-2024 End: 05-05-2024 ambulatory ERIBERTO TOVAR Facility:[facility] Start: 05-05-2024 End: 05-05-2024 Subsequent hospital visit by physician Screen Mammo [facility] Mammogram Start: 05-02-2024 End: 05-02-2024 ambulatory ERIBERTO TOVAR Facility:[facility] Start: 04-14-2024 End: 04-14-[address] [facility] Start: 04-06-2024 End: 04-07-2024 Refill Eriberto Tovar MD Work Phone: Internal Medicine [place] Comment on above: Refill Request Start: 03-23-2024 End: 03-23-2024 [facility] Start: 03-14-2024 End: 03-14-2024 Office outpatient visit 25 minutes Eriberto Tovar MD Work Phone: Internal Medicine [place] Comment on above: Heat intolerance (Pr imary Dx); Chronic fatigue; Elevated serum free T4 level; Hypermagnesemia; Postmenopausal; High serum triiodothyronine (T3); High serum vitamin B12; Vitamin D deficiency; Primary hypertension; Mixed hyperlipidemia Start: 03-14-2024 End: 03-14-2024 ambulatory ERIBERTO GAINESASHKAN Facility:[facility] Start: 03-10-2024 End: 03-10-2024 Telephone encounter Eriberto Tovar MD Work Phone: Internal Medicine [place] Comment on above: Patient Question Start: 03-01-2024 End: 03-08-2024 Telephone encounter Eriberto Tovar MD Work Phone: Internal Medicine [place] Comment on above: Results Start: 02-29-2024 End: 03-01-2024 ambulatory Richy Dominguez APRN.CNP Work Phone: Internal Medicine [place] Comment on above: Results Start: 02-29-2024 End: 03-01-2024 E-mail encounter from caregiver Richy Dominguez APRN.CNP Work Phone: Internal Medicine [place] Start: 02-28-2024 End: 02-28-2024 ambulatory ERIBERTO TOVAR Facility:[facility] Start: 02-28-2024 End: 02-28-2024 Patient encounter procedure Richy Dominguez APRN.CNP Work Phone: Internal Medicine [place] Comment on above: Heat intolerance (Pr imary Dx); Weight loss, unintentional; Encounter for therapeutic drug monitoring; Chronic fatigue; Microcytic anemia; Vitamin D deficiency; Encounter for screening for diabetes mellitus Start: 02-28-2024 End: 02-28-2024 ambulatory ERIBERTO TOVAR Facility:[facility] Start: 02-28-2024 End: 02-28-2024 Patient encounter procedure Stanley Blair APRN.CNM Work Phone: OB/Gynecology Comment on above: Chafing (Primary Dx) ; Lichen sclerosus et atrophicus Start: 02-24-2024 End: 02-24-2024 ambulatory ERIBERTO TOVAR Facility:[facility] Start: 02-23-2024 End: 02-23-2024 ambulatory Eriberto Tovar MD Work Phone: Internal Medicine [place] Comment on above: Unable to cool off Start: 01-27-2024 End: 01-27-2024 [facility] Start: 01-27-2024 End: 01-27-2024 Subsequent hospital visit by physician Jone Choe MD Work Phone: Ambulatory Surgery Comment on above: Screen for colon can cer [Z12.11] Start: 01-20-2024 End: 01-20-2024 [facility] Start: 01-20-2024 End: 01-20-2024 Office outpatient visit 15 minutes Eriberto Tovar MD Work Phone: Internal Medicine [place] Comment on above: Chronic bilateral lo w back pain without sciatica (Primary Dx); Microcytic anemia; Fibromyalgia; Chronic pain of both knees; Mixed hyperlipidemia Start: 01-13-2024 End: 01-19-2024 Telephone encounter Eriberto Tovar MD Work Phone: Internal Medicine [place] Comment on above: medication question Start: 01-07-2024 End: 01-07-2024 Refill Richy Dominguez APRN.BODY TEAM MEMBER Work Phone: Internal Medicine [place] Comment on above: Refill Request Start: 12-27-2023 End: 12-27-2023 [facility] Start: 12-15-2023 End: 12-15-2023 Patient encounter procedure Mayela Luna APRN.BODY TEAM MEMBER Work Phone: General Surgery Comment on above: Screen for colon can cer (Primary Dx) Start: 12-15-2023 End: 12-18-2023 ambulatory Eriberto Tovar MD Work Phone: Internal Medicine [place] Comment on above: Colonoscopy Start: 11-24-2023 End: 11-24-2023 Office outpatient visit 15 minutes Eriberto Tovar MD Work Phone: [facility] Medicine [place] Comment on above: Generalized osteoart hritis (Primary Dx); Chronic bilateral low back pain without sciatica; Fibromyalgia; Chronic pain of both knees Start: 11-24-2023 End: 11-24-2023 ambulatory ERIBERTO TOVAR Facility:[facility] Start: 11-22-2023 End: 11-23-2023 Telephone encounter Eriberto Tovar MD Work Phone: Internal Medicine [place] Comment on above: Patient Update; Medi cation Question Start: 11-20-2023 End: 11-22-2023 Admission to same day surgery center Eriberto Tovar MD Work Phone: Internal Medicine [place] Comment on above: Pre-surgery med vidya tion Start: 11-20-2023 End: 11-22-2023 ambulatory Eriberto Tovar MD Work Phone: [facility] [place] Start: 10-12-2023 Telephone encounter Maile chase APRN.CNP Work Phone: Neurology Comment on above: PAP Therapy Follow U p Start: 09-03-2023 End: 09-03-2023 Patient encounter procedure Eriberto Tovar MD Work Phone: Internal Medicine [place] Comment on above: Preop examination (P rimary Dx); Shoulder strain, left, initial encounter; Encounter for immunization Start: 09-03-2023 End: 09-03-2023 Preprocedural examination done Eriberto Tovar MD Work Phone: [facility] Work Phone: Start: 09-01-2023 ambulatory Eriberto suggs MD Work Phone: Internal Medicine [place] Comment on above: 3 articles of paperw ork which need signatures Refill Request Start: 08-11-2023 Telephone encounter Eriberto gamez MD Work Phone: Internal Medicine [place] Comment on above: Results Start: 07-29-2023 ambulatory ERIBERTO TOVAR Facilit y:[id number] Start: 07-29-2023 End: 07-29-2023 [facility] [address] [facility] Comment on above: Elevated LDL cholest irais level [E78.00] Start: 07-28-2023 ambulatory Eriberto suggs MD Work Phone: Internal Medicine [place] Start: 07-09-2023 End: 07-09-2023 Office outpatient visit 25 minutes Eriberto Tovar MD Work Phone: Internal Medicine [place] Comment on above: Elevated LDL cholest irais level (Primary Dx); Fibromyalgia; Family history of coronary artery disease in mother; Insomnia, unspecified type; SHANNON on CPAP; Mild episode of recurrent major depressive disorder (HCC); Encounter for screening for cardiovascular disorders Start: 06-14-2023 End: 06-18-2023 ambulatory ERIBERTO TOVAR [facility] Start: 06-14-2023 End: 06-14-2023 Office outpatient new 30 minutes Richy Dominguez BODY TEAM MEMBER Work Phone: [facility] Comment on above: Primary osteoarthrit is of both knees (Primary Dx); Pain in both knees, unspecified chronicity Start: 06-03-2023 ambulatory Pcp (Historical) [facility] Start: 06-03-2023 Telephone encounter Eriberto gamez MD Work Phone: Internal Medicine [place] Comment on above: faxed referral to caitlyn hernandez Start: 05-31-2023 Telephone encounter Eriberto gamez MD Work Phone: Internal Medicine [place] Comment on above: Consult Start: 12-11-2022 Telephone encounter Abraham Cuadra MD Work Phone: [facility] Comment on above: Results (Urine Cx mi xed.) Start: 12-10-2022 End: 12-10-2022 Patient encounter procedure Sonido David APRN.BODY TEAM MEMBER Work Phone: [facility] Comment on above: Urgency of urination (Primary Dx) Start: 12-10-2022 Telephone encounter Eriberto gamez MD Work Phone: Internal Medicine [place] Comment on above: Patient Question Start: 11-11-2022 Telephone encounter Eriberto gamez MD Work Phone: Internal Medicine [place] Comment on above: Handicap placard Start: 11-04-2022 Refill Eriberto suggs MD Work Phone: Internal Medicine [place] Comment on above: Refill Request Start: 08-03-2022 End: 08-03-2022 Patient encounter procedure [place] Meier APRN.BODY TEAM MEMBER Work Phone: [facility] Comment on above: Urinary frequency (P rimary Dx) Start: 07-23-2022 End: 07-23-2022 Patient encounter procedure Kailey Perez APRN.BODY TEAM MEMBER Work Phone: [facility] Comment on above: Urinary frequency (P rimary Dx) Start: 06-25-2022 Documentation procedure Mammog mo Coordinator [facility] Start: 06-25-2022 Letter encounter Mammography Coordinator [facility] Department Start: 06-25-2022 End: 06-25-2022 Subsequent hospital visit by physician Screen Mammo [facility] Mammogram Comment on above: Encounter for screen ing mammogram for breast cancer [Z12.31] Start: 05-08-2022 End: 05-08-2022 Office outpatient visit 25 minutes Eriberto Tovar MD Work Phone: Internal Medicine [place] Comment on above: Fibromyalgia (Primar y Dx); SHANNON on CPAP; Recurrent major depressive disorder, in partial remission (HCC); Mixed hyperlipidemia; Chronic fatigue; Generalized anxiety disorder; Asymptomatic postmenopausal status; Encounter for long-term current use of medication Start: 04-24-2022 Refill Eriberto suggs MD Work Phone: Family [facility] Comment on above: Refill Request (Plea se send today, patient is in need of this ) Start: 04-21-2022 End: 04-21-2022 Patient encounter procedure Asiya Boyle PA-C Work Phone: [facility] Comment on above: Sore throat (Primary Dx) Start: 04-13-2022 Telephone encounter Kailey Perez APRN.BODY TEAM MEMBER Work Phone: [facility] Comment on above: Results Start: 04-12-2022 End: 04-12-2022 Patient encounter procedure Julieth SWARTZ [facility] Comment on above: Acute cough (Primary Dx); Acute frontal sinusitis, recurrence not specified Start: 02-11-2022 Refill Eriberto suggs MD Work Phone: Internal Medicine [place] Comment on above: Refill Request Start: 01-25-2022 End: 01-25-2022 Patient encounter procedure Raina Dedrick COCOA ROOM OPERATOR.BODY TEAM MEMBER Work Phone: [facility] Comment on above: URI, acute (Primary Dx) Start: 01-01-2022 End: 01-01-2022 Patient encounter procedure Martha Meier COCOA ROOM OPERATOR.BODY TEAM MEMBER Work Phone: [facility] Comment on above: Sore throat (Primary Dx); Suspected COVID-19 virus infection; Impacted cerumen of right ear Start: 11-05-2021 Telephone encounter Eriberto gamez MD Work Phone: Internal Medicine [place] Comment on above: Patient Update Start: 11-05-2021 End: 11-05-2021 Patient encounter procedure Abraham Garcia MD Work Phone: [facility] Comment on above: Sore throat (Primary Dx) Start: 10-30-2021 End: 10-30-2021 Patient encounter procedure Gabriela Britt APRN.BODY TEAM MEMBER Work Phone: OB/Gynecology Comment on above: Encounter for gyneco logic examination for high-risk patient covered by Medicare (Primary Dx); Lichen sclerosus et atrophicus; Pap smear for cervical cancer screening; Encounter for screening mammogram for breast cancer; Dense breast tissue on mammogram Start: 09-03-2021 End: 09-03-2021 Subsequent hospital visit by physician Bridget [facility] [place] Work Phone: Radiology Comment on above: COVID [U07.1] Start: 09-03-2021 End: 09-03-2021 Patient encounter procedure Hayde Jay COCOA ROOM OPERATOR.BODY TEAM MEMBER Work Phone: [facility] Comment on above: COVID (Primary Dx); Cough Start: 06-01-2022 Telephone encounter Eriberto gamez MD Work Phone: Internal Medicine [place] Comment on above: Patient Update Start: 08-27-2021 Telephone encounter Eriberto gamez MD Work Phone: Internal Medicine [place] Comment on above: COVID concerns Start: 08-12-2021 Refill Eriberto suggs MD Work Phone: Internal Medicine [place] Comment on above: Refill Request Start: 07-26-2021 Refill Eriberto suggs MD Work Phone: Internal Medicine [place] Comment on above: Refill Request Start: 06-26-2021 End: 06-26-2021 Patient encounter procedure Martha Meier COCOA ROOM OPERATOR.BODY TEAM MEMBER Work Phone: [facility] Comment on above: Acute non-recurrent sinusitis, unspecified location (Primary Dx); Acute upper respiratory infection, unspecified Start: 12-11-2020 Telephone encounter Eriberto gamez MD Work Phone: Family Medicine [place] Comment on above: Covid19 Concern Procedures Date Procedure Procedure Detail Performing Clinician Start: 11-07-[address] JOSE L BARRIOS MD Comment on above: right Start: 07-20-2024 Smr prim src gram/gi emsa stain bct fungi/cell Sanjay Yates COCOA ROOM OPERATOR.OPERATOR HELPER Work Phone: Start: 07-20-2024 Urnls dip stick/tabl et rgnt auto w/o microscopy Sanjay Yates COCOA ROOM OPERATOR.OPERATOR HELPER Work Phone: Start: 07-19-2024 Radiologic exam ches t 2 views Sanjay Yates COCOA ROOM OPERATOR.OPERATOR HELPER Work Phone: Start: 07-04-2024 Ecg routine ecg w/le ast 12 lds i&r only Sanjay Yates COCOA ROOM OPERATOR.OPERATOR HELPER Work Phone: Start: 07-01-2024 STREP A MOLECULAR (POC) Abraham Garcia MD Work Phone: Start: 01-27-2024 Colonoscopy flx dx w /collj spec when pfrmd Mayela Luna COCOA ROOM OPERATOR.BODY TEAM MEMBER Work Phone: Start: 01-27-2024 Colonoscopy Jone diaz MD Work Phone: Start: 12-27-2023 Lipid 1996 panel - S kasia or Plasma Xr [place] Work Phone: Start: 07-29-2023 Unlisted computed tomography procedure Eriberto Tovar MD Work Phone: Start: 06-11-2023 Lipid 1996 panel - S kasia or Plasma Eriberto Tovar MD Work Phone: Start: 12-15-2022 Lipid 1996 panel - S kasia or Plasma Screen Wstr Start: 12-10-2022 Urnls dip stick/tabl et rgnt auto w/o microscopy Martha Meier COCOA ROOM OPERATOR.[facility] Work Phone: Start: 08-03-2022 Urnls dip stick/tabl et rgnt auto w/o microscopy Martha Meier COCOA ROOM OPERATOR.BODY TEAM MEMBER Work Phone: Start: 07-23-2022 Urnls dip stick/tabl et rgnt auto w/o microscopy [facility] Meier APRN.[facility] Work Phone: Start: 06-25-2022 VALENTE SCREENING W MUNA [place] Britt COCOA ROOM OPERATOR.[facility] Work Phone: Start: 06-25-2022 Mammography Mammograph y Coordinator Start: 04-21-2022 STREP A MOLECULAR (POC) Raina Tse COCOA ROOM OPERATOR.BODY TEAM MEMBER Work Phone: Start: 01-01-2022 STREP A MOLECULAR (POC) Martha Meier COCOA ROOM OPERATOR.BODY TEAM MEMBER Work Phone: Start: 09-03-2021 Radiologic exam ches t 2 views Hayde Jay COCOA ROOM OPERATOR.BODY TEAM MEMBER Work Phone: Start: 04-02-2021 Mammography Martha Kennedy APRN.BODY TEAM MEMBER Work Phone: Start: 12-05-2013 Colonoscopy Martha Kennedy APRN.BODY TEAM MEMBER Work Phone: Arthrd crp/mtacrpl j t thmb w/wo int fixj w/agrft DR JOSE L BARRIOS MD Comment on above: left Cervical arthrodesis DR JOSE G BARRIOS MD Comment on above: C5-[address] JOSE L BARRIOS MD Comment on above: bilateral Excision of cyst of ovary DR JOSE L BARRIOS MD Extraction of cataract DR SVEN AGUILAR Comment on above: bilateral Implantation of perm anent spinal cord stimulator DR JOSE L BARRIOS MD Structure of interphalangeal joint of ring finger DR JOSE L BARRIOS MD Comment on above: right Plan of Treatment Date Care Activity Detail Author Start: 01-26-2034 Screening for malignant neoplasm of colon [facility] Start: 11-25-2030 RSV Vaccine (1 - 1-dose 75+ series) RSV Vaccine (1 - 1-dose 75+ series) [facility] Start: 12-26-2028 Lipid panel Lipid Screening [facility] Start: 06-10-2028 Lipid panel Lipid Screening [facility] Start: 12-16-2027 Lipid 1996 panel - Serum or Plasma Lipid Screening [facility] Start: 12-16-2027 Lipid panel Lipid Screening [facility] Start: 10-18-2027 Diabetes Screening Diabetes Screening [facility] Start: 07-20-2027 Diabetes Screening Diabetes Screening [facility] Start: 02-27-2027 Diabetes Screening Diabetes Screening [facility] Start: 12-26-2026 Diabetes Screening Diabetes Screening [facility] Start: 10-16-2026 Tetanus vaccination Tetanus: Every 10yrs [facility] Start: 10-16-2026 Urine microalbumin profile [facility] Start: 12-15-2025 Diabetes Screening Diabetes Screening [facility] Start: 10-17-2025 Annual PCP Team Chronic Disease Visit Annual PCP Team Chronic Disease Visit [facility] Start: 08-31-2025 BP Controlled (<130/80) BP Controlled (<130/80) [facility] Start: 07-25-2025 Annual PCP Team Chronic Disease Visit Annual PCP Team Chronic Disease Visit [facility] Start: 07-25-2025 BP Controlled (<130/80) BP Controlled (<130/80) Eng Cl in Start: 07-20-2025 BP Controlled (<130/80) BP Controlled (<130/80) Eng [facility] in Start: 07-10-2025 BP Controlled (<130/80) BP Controlled (<130/80) Eng Cl in Start: 07-04-2025 BP Controlled (<130/80) BP Controlled (<130/80) Eng Cl in Start: 06-22-2025 BP Controlled (<130/80) BP Controlled (<130/80) Eng Cl [facility] Start: 06-19-2025 Annual PCP Team Chronic Disease Visit Annual PCP Team Chronic Disease Visit [facility] Start: 06-19-2025 BP Controlled (<130/80) BP Controlled (<130/80) [facility] Start: 05-05-2025 Screening for malignant neoplasm of breast Mammogram Screening [facility] Start: 03-20-2025 End: 03-20-2025 Patient encounter procedure 03/20/2025 2:00 PM EST Office Visit Internal Medicine Martha [address] [place] [address] Eriberto Tovar MD [address] [facility] [place] [facility] [place] [address] 6 month follow up Internal Medicine [place] Comment on above: 6 month follow up Start: 03-14-2025 Annual PCP Team Chronic Disease Visit Annual PCP Team Chronic Disease Visit [facility] Start: 03-14-2025 BP Controlled (<130/80) BP Controlled (<130/80) [facility] Start: 01-26-2025 Screening for malignant neoplasm of colon [facility] Start: 01-22-2025 LIPID SCREEN LIPID SCREEN [facility] Start: 01-09-2025 End: 01-09-2025 Patient encounter procedure 01/09/2025 3:40 PM EDT Office Visit Internal Medicine Martha [address] [place] [address] Eriberto Tovar MD [address] [facility] [place] [address] 6 Month follow up Internal Medicine [place] Comment on above: 6 Month follow up Start: 12-04-2024 Influenza vaccination Influenza Vaccine (#1) [facility] Start: 10-17-2024 End: 01-16-2025 CBC W Auto Differential panel - Blood [facility] Comment on above: Expected: 10/17/2024, Expires: Start: 10-17-2024 End: 01-16-2025 Comprehensive metabolic 2000 panel - Serum or Plasma [facility] Work Phone: Comment on above: Expected: 10/17/2024, Expires: Start: 09-13-2024 End: 09-13-2024 Patient encounter procedure 09/13/2024 3:20 PM EDT Office Visit Internal Medicine Martha [address] [place] [address] Eriberto Tovar MD [address] [place] [address] 6 month follow up Internal Medicine [place] Comment on above: 6 month follow up Start: 07-25-2024 End: 07-25-2024 Patient encounter procedure 07/25/2024 6:40 PM EDT Office Visit Internal Medicine Martha [address] [place] [address] Eriberto Tovar MD [address] [place] [address] follow up Internal Medicine [place] Comment on above: follow up Start: 07-20-2024 End: 07-20-2024 Patient encounter procedure 07/20/2024 2:20 PM EDT Office Visit Internal Medicine [place] [address] [place] [address] Sanjay Yates APRN.OPERATOR HELPER [address] [place], [place] [id number] Ongoing fever, fatigue, review labs Internal Medicine [place] Comment on above: Ongoing fever, fatigue, review labs Start: 07-20-2024 End: 10-19-2024 EDDIE BY IFA SCREEN [facility] Work Phone: Comment on above: Expected: 07/20/2024, Expires: Start: 07-19-2024 End: 07-19-2024 Patient encounter procedure 07/19/2024 11:50 AM EDT Appointment Radiology [address] [place] [address] Radiology Start: 07-19-2024 End: 07-19-2024 ambulatory 07/19/2024 11:30 AM EDT Results Only [place] [facility] [address] [place] [address] Martha [facility] Start: 07-18-2024 End: 10-17-2024 CBC W Auto Differential panel - Blood COMPLETE BLOOD COUNT AND DIFFERENTIAL Lab Routine Flu-like symptoms Acute upper respiratory infection, unspecified Fever, unspecified fever cause Expected: 07/18/2024, Expires: 10/17/2024 [facility] Comment on above: Expected: 07/18/2024, Expires: Start: 07-18-2024 End: 10-17-2024 Comprehensive metabolic 2000 panel - Serum or Plasma COMPREHENSIVE METABOLIC PANEL Lab Routine Flu-like symptoms Acute upper respiratory infection, unspecified Fever, unspecified fever cause Expected: 07/18/2024, Expires: 10/17/2024 [facility] Comment on above: Expected: 07/18/2024, Expires: Start: 07-18-2024 End: 10-17-2024 SUSANA JAY PANEL SUSANA JAY PANEL Lab Routine Flu-like symptoms Acute upper respiratory infection, unspecified Fever, unspecified fever cause Other fatigue Expected: 07/18/2024, Expires: 10/17/2024 [facility] Comment on above: Expected: 07/18/2024, Expires: Start: 07-18-2024 End: 10-17-2024 Urinalysis complete panel - Urine URINALYSIS (WITH MICROSCOPIC) WITH CULTURE IF INDICATED Lab Routine Flu-like symptoms Acute upper respiratory infection, unspecified Fever, unspecified fever cause Expected: 07/18/2024, Expires: 10/17/2024 [facility] Comment on above: Expected: 07/18/2024, Expires: Start: 07-04-2024 End: 07-04-2024 Patient encounter procedure 07/04/2024 2:20 PM EDT Office Visit Internal Medicine [place] [address] [place] [address] Sanjay Yates, COCOA ROOM OPERATOR.OPERATOR HELPER [address] [facility] [place] [place] [address] Follow up to previous Pre-Op Clearance on 06/19/24: review of additional lab results, possible 2nd EKG, see 06/28/24 Phone Note. Internal Medicine [place] Comment on above: Follow up to previous Pre-Op Clearance o n 06/19/24: review of additional lab results, possible 2nd EKG, see 06/28/24 Phone Note. Start: 06-22-2024 End: 06-22-2024 Patient encounter procedure 06/22/2024 2:00 PM EDT Office Visit OB/Gynecology [address] [place] [address] Gabriela Britt, COCOA ROOM OPERATOR.BODY TEAM MEMBER [address] [place] [address] Lichen Sclerosus F/U OB/Gynecology Comment on above: Lichen Sclerosus F/U Start: 06-19-2024 End: 06-19-2024 Patient encounter procedure 06/19/2024 2:00 PM EDT Office Visit Internal Medicine [place] [address] [place] [address] Eriberto Tovar MD [address] [facility] [place] [place] [address] Pre-op right TKA with Dr Barrios 07/16/24 Internal Medicine [place] Comment on above: Pre-op right TKA with Dr Barrios 07/16/24 Start: 04-12-2024 End: 04-12-2024 Patient encounter procedure 04/12/2024 3:00 PM EST Office Visit Internal Medicine [place] [address] [place] [address] Eriberto Tovar MD [address] [place] [address] 6 Month follow up Internal Medicine [place] Comment on above: 6 Month follow up Start: 04-05-2024 Advance Directive Discussion Advance Directive Discussion [facility] Start: 04-05-2024 End: 07-05-2024 Cobalamin (Vitamin B12) [Mass/volume] in Serum or Plasma VITAMIN B12 Lab Routine Heat intolerance Chronic fatigue High serum vitamin B12 Expected: 04/05/2024 (Approximate), Expires: 07/05/2024 [facility] Comment on above: Expected: 04/05/2024 (Approximate), Expi res: 07/05/2024 Start: 04-05-2024 End: 07-05-2024 Magnesium [Mass/volume] in Serum or Plasma MAGNESIUM Lab Routine Heat intolerance Chronic fatigue Hypermagnesemia Expected: 04/05/2024 (Approximate), Expires: 07/05/2024 [facility] Comment on above: Expected: 04/05/2024 (Approximate), Expi res: 07/05/2024 Start: 04-05-2024 End: 07-05-2024 Thyrotropin [Units/volume] in Serum or Plasma THYROID STIMULATING HORMONE Lab Routine Heat intolerance Chronic fatigue Elevated serum free T4 level High serum triiodothyronine (T3) Expected: 04/05/2024 (Approximate), Expires: 07/05/2024 [facility] Work Phone: Comment on above: Expected: 04/05/2024 (Approximate), Expi res: 07/05/2024 Start: 04-05-2024 End: 07-05-2024 Thyroxine (T4) free [Mass/volume] in Serum or Plasma T4 FREE/FREE THYROXINE Lab Routine Heat intolerance Chronic fatigue Elevated serum free T4 level High serum triiodothyronine (T3) Expected: 04/05/2024 (Approximate), Expires: 07/05/2024 [facility] Comment on above: Expected: 04/05/2024 (Approximate), Expi res: 07/05/2024 Start: 04-05-2024 End: 07-05-2024 Triiodothyronine (T3) Free [Mass/volume] in Serum or Plasma T3, FREE Lab Routine Heat intolerance Chronic fatigue Elevated serum free T4 level High serum triiodothyronine (T3) Expected: 04/05/2024 (Approximate), Expires: 07/05/2024 [facility] Comment on above: Expected: 04/05/2024 (Approximate), Expi res: 07/05/2024 Start: 03-14-2024 End: 03-14-2024 Patient encounter procedure 03/14/2024 3:20 PM EST Office Visit Internal Medicine [place] [address] [place], [place] [id number] Eriberto Tovar MD [address] [place], [place] [address] 6 month follow up Internal Medicine [place] Comment on above: 6 month follow up Start: 02-28-2024 End: 05-29-2024 25-hydroxyvitamin D3 [Mass/volume] in Serum or Plasma [facility] Comment on above: Expected: 02/28/2024, Expires: Start: 02-28-2024 End: 05-29-2024 Cobalamin (Vitamin B12) [Mass/volume] in Serum or Plasma [facility] Comment on above: Expected: 02/28/2024, Expires: Start: 02-28-2024 End: 05-29-2024 Comprehensive metabolic 2000 panel - Serum or Plasma [facility] Comment on above: Expected: 02/28/2024, Expires: Start: 02-28-2024 End: 05-29-2024 Ferritin [Mass/volume] in Serum or Plasma [facility] Comment on above: Expected: 02/28/2024, Expires: Start: 02-28-2024 End: 05-29-2024 Hemoglobin A1c in Blood [facility] Comment on above: Expected: 02/28/2024, Expires: Start: 02-28-2024 End: 05-29-2024 Iron and Iron binding capacity panel - Serum or Plasma [facility] Work Phone: Comment on above: Expected: 02/28/2024, Expires: Start: 02-28-2024 End: 05-29-2024 Magnesium [Mass/volume] in Serum or Plasma [facility] Comment on above: Expected: 02/28/2024, Expires: Start: 02-28-2024 End: 05-29-2024 Thyrotropin [Units/volume] in Serum or Plasma [facility] Comment on above: Expected: 02/28/2024, Expires: Start: 02-28-2024 End: 05-29-2024 Thyroxine (T4) free [Mass/volume] in Serum or Plasma [facility] Comment on above: Expected: 02/28/2024, Expires: Start: 02-28-2024 End: 05-29-2024 Triiodothyronine (T3) Free [Mass/volume] in Serum or Plasma [facility] Comment on above: Expected: 02/28/2024, Expires: Start: 02-28-2024 End: 02-28-2024 Patient encounter procedure 02/28/2024 1:45 PM EST Office Visit OB/Gynecology [address] [place] [address] Stanley Blair APRN.[facility] [address] [place] [address] Lichen sclerosus f/u OB/Gynecology Comment on above: Lichen sclerosus f/u Start: 02-24-2024 End: 02-24-2024 ambulatory 02/24/2024 11:15 AM EST Results Only Martha [place] [facility] [address] [place] [address] Martha [place] [facility] Start: 01-27-2024 End: 01-27-2024 Patient encounter procedure 01/27/2024 2:15 PM EDT Appointment Ambulatory Surgery [address] [place] [address] Jone Choe MD [address] [place] [address] colon Ambulatory Surgery Comment on above: colon Start: 01-27-2024 End: 01-27-2024 Patient encounter procedure 01/27/2024 8:45 AM EDT Appointment Ambulatory Surgery [address] [place] [address] Jone Choe MD [address] [place] [address] colon Ambulatory Surgery Comment on above: colon Start: 01-20-2024 End: 01-20-2024 Patient encounter procedure 01/20/2024 2:40 PM EDT Office Visit Internal Medicine Martha [address] [facility] [place], [place] [address] Eriberto Tovar MD [address] [facility] [address] follow up Internal Medicine [place] Comment on above: follow up Start: 01-20-2024 End: 04-20-2024 CBC panel - Blood by Automated count COMPLETE BLOOD COUNT Lab Routine Microcytic anemia Expected: 01/20/2024 (Approximate), Expires: 04/20/2024 [facility] Work Phone: Comment on above: Expected: 01/20/2024 (Approximate), Expi res: 04/20/2024 Start: 12-23-2023 End: 12-23-2023 Patient encounter procedure 12/23/2023 11:00 AM EDT Appointment Ambulatory Surgery [address] [place] [address] Jone Choe MD [address] [place] [address] Ambulatory Surgery Start: 12-19-2023 Covid-19 Vaccine () Covid-19 Vaccine () [facility] Comment on above: Postponed from 12/04/2022 (Declined at t his time) Start: 12-06-2023 Colonoscopy COLONOSCOPY [facility] Start: 12-06-2023 COLORECTAL CANCER SCREENING COLORECTAL CANCER SCREENING [facility] Start: 12-06-2023 Screening for malignant neoplasm of colon [facility] Start: 12-05-2023 Covid-19 Vaccine () Covid-19 Vaccine () [facility] Start: 12-05-2023 Covid-19 Vaccine () Covid-19 Vaccine () [facility] Start: 12-05-2023 Influenza vaccination Influenza Vaccine (#1) [facility] Start: 11-24-2023 End: 11-24-2023 Patient encounter procedure 11/24/2023 4:20 PM EDT Office Visit Internal Medicine [place] [address] [place], [place] [id number] Eriberto Tovar MD [address] [place], [place] [address] Pain Medications while off of Diclofenac for surgery Internal Medicine [place] Comment on above: Pain Medications while off of Diclofenac for surgery Start: 10-15-2023 End: 10-15-2023 Patient encounter procedure 10/15/2023 3:00 PM EDT Office Visit Neurology [address] [place], [place] [address] Maile Laguerre APRN.BODY TEAM MEMBER [address] [place] [address] SHANNON on CPAP [G47.33] Neurology Comment on above: SHANNON on CPAP [G47.33] Start: 10-11-2023 End: 01-10-2024 Comprehensive metabolic 2000 panel - Serum or Plasma COMPREHENSIVE METABOLIC PANEL Lab Routine Encounter for long-term current use of medication Elevated LDL cholesterol level Expected: 10/11/2023 (Approximate), Expires: 01/10/2024 [facility] Work Phone: Comment on above: Expected: 10/11/2023 (Approximate), Expi res: 01/10/2024 Start: 10-11-2023 End: 01-10-2024 Lipid 1996 panel - Serum or Plasma LIPID PANEL BASIC Lab Routine Encounter for long-term current use of medication Elevated LDL cholesterol level Expected: 10/11/2023 (Approximate), Expires: 01/10/2024 [facility] Comment on above: Expected: 10/11/2023 (Approximate), Expi res: 01/10/2024 Start: 09-03-2023 End: 09-03-2023 Patient encounter procedure 09/03/2023 2:20 PM EDT Office Visit Internal Medicine [place] [address] [place], [place] [id number] Eriberto Tovar MD [address] [place], [place] [id number] pre op Dr. Mcclain Internal Medicine [place] Comment on above: pre op Dr. Mcclain Start: 06-26-2023 Mammography [facility] Start: 06-26-2023 Screening for malignant neoplasm of breast Mammogram Screening [facility] Start: 05-08-2023 SHINGRIX VACCINE (2 of 3) SHINGRIX VACCINE (2 of 3) [facility] Comment on above: Postponed from 04/28/2016 (Declined at t his time) Start: 04-05-2023 Advance Directive Discussion Advance Directive Discussion [facility] Start: 01-22-2023 DIABETES SCREEN DIABETES SCREEN [facility] Start: 12-10-2022 End: 02-09-2023 CBC W Auto Differential panel - Blood CBC + DIFF Lab Routine Recurrent major depressive disorder, in partial remission (HCC) Generalized anxiety disorder Obstructive sleep apnea Chronic fatigue Expected: 12/10/2022, Expires: 02/09/2023 [facility] Work Phone: Comment on above: Expected: 12/10/2022, Expires: Start: 12-10-2022 End: 02-09-2023 Comprehensive metabolic 2000 panel - Serum or Plasma COMP METABOLIC PANEL Lab Routine Recurrent major depressive disorder, in partial remission (HCC) Generalized anxiety disorder Obstructive sleep apnea Chronic fatigue Expected: 12/10/2022, Expires: 02/09/2023 [facility] Work Phone: Comment on above: Expected: 12/10/2022, Expires: 3 Start: 12-10-2022 End: 02-09-2023 Lipid 1996 panel - Serum or Plasma LIPID PANEL BASIC Lab Routine Recurrent major depressive disorder, in partial remission (HCC) Generalized anxiety disorder Obstructive sleep apnea Chronic fatigue Encounter for lipid screening for cardiovascular disease Expected: 12/10/2022, Expires: 02/09/2023 [facility] Work Phone: Comment on above: Expected: 12/10/2022, Expires: 3 Start: 12-10-2022 End: 02-09-2023 Thyrotropin [Units/volume] in Serum or Plasma TSH BLD Lab Routine Recurrent major depressive disorder, in partial remission (HCC) Generalized anxiety disorder Obstructive sleep apnea Chronic fatigue Expected: 12/10/2022, Expires: 02/09/2023 [facility] Work Phone: Comment on above: Expected: 12/10/2022, Expires: 3 Start: 12-04-2022 COVID-19 Vaccine ( season) COVID-19 Vaccine ( season) [facility] Start: 12-04-2022 Influenza vaccination INFLUENZA (#1) [facility] Start: 09-16-2022 COVID-19 VACCINE (6 - Pfizer series) COVID-19 VACCINE (6 - Pfizer series) [facility] Start: 06-05-2022 End: 08-05-2022 CBC panel - Blood by Automated count CBC Lab Routine Chronic fatigue Encounter for long-term current use of medication Expected: 06/05/2022 (Approximate), Expires: 08/05/2022 [facility] Work Phone: Comment on above: Expected: 06/05/2022 (Approximate), Expi res: 08/05/2022 Start: 06-05-2022 End: 08-05-2022 Comprehensive metabolic 2000 panel - Serum or Plasma COMP METABOLIC PANEL Lab Routine Chronic fatigue Encounter for long-term current use of medication Expected: 06/05/2022 (Approximate), Expires: 08/05/2022 [facility] Work Phone: Comment on above: Expected: 06/05/2022 (Approximate), Expi res: 08/05/2022 Start: 06-05-2022 End: 08-05-2022 Lipid 1996 panel - Serum or Plasma LIPID PANEL BASIC Lab Routine Encounter for long-term current use of medication Mixed hyperlipidemia Expected: 06/05/2022 (Approximate), Expires: 08/05/2022 [facility] Work Phone: Comment on above: Expected: 06/05/2022 (Approximate), Expi res: 08/05/2022 Start: 04-12-2022 End: 04-26-2022 Influenza virus A and B RNA and SARS-CoV-2 (COVID-19) N gene panel - Respiratory specimen by AG with probe detection [facility] Comment on above: Expected: 04/12/2022, Expires: 3 Start: 04-05-2022 ADVANCE DIRECTIVE DISCUSSION ADVANCE DIRECTIVE DISCUSSION [facility] Start: 04-02-2022 Mammography MAMMOGRAM [facility] Start: 04-02-2022 Screening for malignant neoplasm of breast Mammogram [facility] Start: 02-03-2022 PNEUMOCOCCAL: 65+ (2 - PCV) PNEUMOCOCCAL: 65+ (2 - PCV) [facility] Start: 02-03-2022 SHINGRIX VACCINE (2 of 3) SHINGRIX VACCINE (2 of 3) [facility] Comment on above: Postponed from 04/28/2016 (Declined at t his time) Start: 01-09-2022 COVID-19 VACCINE (5 - Booster for Pfizer series) COVID-19 VACCINE (5 - Booster for Pfizer series) [facility] Start: 12-04-2021 Influenza vaccination INFLUENZA (#1) [facility] Start: 11-05-2021 End: 11-19-2021 SARS-CoV-2 (COVID-19) RNA [Presence] in Respiratory specimen by AG with probe detection 2019 CORONAVIRUS Microbiology Routine Sore throat Expected: 11/05/2021, Expires: 11/19/2021 [facility] Work Phone: Comment on above: Expected: 11/05/2021, Expires: 2 Start: 06-26-2021 End: 07-10-2021 Influenza virus A and B RNA and SARS-CoV-2 (COVID-19) N gene panel - Respiratory specimen by AG with probe detection COVID WITH FLUA+B, ROUTINE Microbiology Routine Acute non-recurrent sinusitis, unspecified location Acute upper respiratory infection, unspecified Expected: 06/26/2021, Expires: 07/10/2021 [facility] Work Phone: Comment on above: Expected: 06/26/2021, Expires: 2 Start: 06-13-2021 COVID-19 VACCINE (4 - Booster for Pfizer series) COVID-19 VACCINE (4 - Booster for Pfizer series) [facility] Start: 04-10-2021 COVID-19 VACCINE (4 - Booster for Pfizer series) COVID-19 VACCINE (4 - Booster for Pfizer series) [facility] Start: 04-05-2021 ADVANCE DIRECTIVE DISCUSSION ADVANCE DIRECTIVE DISCUSSION [facility] Start: 11-25-2020 BONE DENSITY BONE DENSITY [facility] Start: 11-25-2020 Bone Density Screening Bone Density Screening [facility] Start: 11-25-2020 Fall risk assessment Falls Risk Assessment [facility] Start: 11-03-2020 Medicare Annual Wellness Visit Medicare Annual Wellness Visit [facility] Start: 04-28-2016 SHINGRIX VACCINE (2 of 3) SHINGRIX VACCINE (2 of 3) [facility] Start: 2015 RSV Vaccine (1 - 1-dose 60+ series) RSV Vaccine (1 - 1-dose 60+ series) [facility] Start: 2015 RSV Vaccine (1 - Risk 60-74 years 1-dose series) RSV Vaccine (1 - Risk 60-74 years 1-dose series) [facility] Start: 11-25-2005 Screening for malignant neoplasm of colon Flexible sigmoidoscopy [facility] Start: 11-25-2000 COLOGUARD (FIT-DNA) COLOGUARD (FIT-DNA) [facility] Start: 11-25-[address] COLONOGRAPHY [facility] Start: 11-25-2000 FECAL OCCULT BLOOD FECAL OCCULT BLOOD [facility] Start: 11-25-2000 Screening for malignant neoplasm of colon [facility] Start: 11-25-2000 SIGMOIDOSCOPY SIGMOIDOSCOPY [facility] Start: 11-25-1973 BP Controlled (<130/80) BP Controlled (<130/80) [facility] in Start: 11-25-1973 Hepatitis C screening Hepatitis C Screening [facility] Start: 1967 Depression screening using PHQ-9 (Patient Health Questionnaire 9) score Depression Screening (PHQ-2/9) [facility] Start: 11-25-1958 History and physical examination, annual for health maintenance Wellness Visit [facility] Start: 1955 Screening for malignant neoplasm of colon [facility] Bacteria identified in Unspecified specimen by Respiratory culture BACTERIAL CULTURE AND GRAM STAIN, RESPIRATORY, SPUTUM AND TRACHEAL ASPIRATE Microbiology Routine Flu-like symptoms Acute upper respiratory infection, unspecified Fever, unspecified fever cause 07/20/2024 3:37 PM EDT [facility] Bacteria identified in Urine by Culture URINE CULTURE Microbiology Routine Urinary frequency 07/23/2022 4:03 PM [facility] Work Phone: Bacteria identified in Urine by Culture URINE CULTURE Microbiology Routine Urinary frequency 08/03/2022 1:58 PM T [facility] Work Phone: Bacteria identified in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 knowledge and judgment of healthcare practitioners. The absence of a warning for a given drug or drug combination in no way should be construed to indicate that the drug or drug combination is safe, effective or appropriate for any given patient. [facility] does not assume any responsibility for any aspect of healthcare administered with the aid of information [facility] provides. The information contained herein is not intended to cover all possible uses, directions, precautions, warnings, drug interactions, allergic reactions, or adverse effects. If you have questions about the drugs you are taking, check with your doctor, nurse or pharmacist. Copyright 7170-[address] [facility] Dripp[employer]. Version: 5.01. Revision Date: 11/09/2022. oxycodone (ox i KOE done) Oxaydo, OxyCONTIN, Roxicodone, RoxyBond, Xtampza ER What is the most important information I should know about oxycodone? MISUSE OF OPIOID MEDICINE CAN CAUSE ADDICTION, OVERDOSE, OR . Fatal side effects may occur if you also drink alcohol or use other drugs that cause drowsiness or slow breathing. Using opioid medicine during may cause life-threatening withdrawal symptoms in the . What is oxycodone? Oxycodone is an opioid pain medication used to treat moderate to severe pain. Oxycodone is usually given after other treatments did not work or were not tolerated. Extended-release oxycodone is for ifyzmd-gej-rrrjk treatment of severe and chronic pain that requires longer treatment. This medicine is not for use on an as-needed basis. Oxycodone may also be used for purposes not listed in this medication guide. What should I discuss with my healthcare provider before taking oxycodone? You should not use oxycodone if you are allergic to it, or if you have severe asthma, breathing problems or a stomach or bowel obstruction (including paralytic ileus). Tell your doctor if you have ever had: other breathing problems, sleep apnea (breathing that stops during sleep); a head injury, brain tumor, high pressure inside the skull, or seizures, drug or alcohol addiction, or mental illness; if you have used an MAO inhibitor in the past 14 days, such as isocarboxazid, linezolid, methylene blue injection, phenelzine, or tranylcypromine; urination problems, problems with your gallbladder, pancreas, thyroid, or adrenal gland; or liver or kidney disease. Most forms of oxycodone are not approved for use in people under 18 years old. The extended-release tablets should not be given to a child younger than 11 years old. Tell your doctor if you also use stimulant medicine, opioid medicine, herbal products, or medicine for depression, mental illness, Parkinson's disease, migraine headaches, serious infections, or prevention of nausea and vomiting. An interaction with oxycodone could cause a serious condition called serotonin syndrome. May harm an unborn baby. Tell your doctor if you are or plan to become . If you use oxycodone during , your baby could be born with life-threatening withdrawal symptoms, and may need medical treatment for several weeks. Do not breastfeed. Oxycodone in breast milk can cause life-threatening side effects in a nursing baby. Long-term oxycodone may affect fertility in men or women. could be harder to achieve while either parent is using this medicine. How should I take oxycodone? Follow the directions on your prescription label and read all medication guides or instruction sheets. Never use oxycodone in larger amounts, or for longer than prescribed. Tell your doctor if you feel an increased urge to use more of this medicine. Never share opioid medicine with another person, especially someone with a history of drug addiction. MISUSE CAN CAUSE ADDICTION, OVERDOSE, OR . Keep the medicine where others cannot get to it. Selling or giving away this medicine is against the law. Never crush a pill or use the liquid to inhale the mixture or inject it into your vein. This could result in . Your dose needs may change if you switch to a different brand, strength, or form of this medicine. Avoid medication errors by using exactly as directed on the label, or as prescribed by your doctor. Stop taking all other awfhhd-faf-lxjzd opioid pain medicines when you start taking extended-release oxycodone. Swallow the extended-release forms whole to avoid exposure to a potentially fatal overdose. Do not crush, chew, break, open, or dissolve. Take the extended-release capsules with food. Read and carefully follow the instructions for use on how to prepare and take this medicine if you cannot swallow extended release capsules whole or you use a feeding tube. Ask your doctor or pharmacist if you don't understand these instructions. Measure liquid medicine with the supplied measuring device (not a kitchen spoon). You may be given other medications to help prevent or treat certain side effects. You may have withdrawal symptoms if you stop using oxycodone suddenly. Ask your doctor before stopping the medicine. Store at room temperature away from moisture and heat. Keep your medicine in a place where no one can use it improperly. Do not keep leftover medicine. Just one dose can cause in someone using it accidentally or improperly. Ask your pharmacist about a drug take-back program, or flush the unused medicine down the toilet. What happens if I miss a dose? Since oxycodone is used for pain, you are not likely to miss a dose. Skip any missed dose if it is almost time for your next dose. Do not use two doses at one time. What happens if I overdose? Seek emergency medical attention or call the Poison Help line at . An overdose can be fatal, especially in a child or person using opioid medicine without a prescription. Your doctor may recommend you get naloxone (a medicine to reverse an opioid overdose) and keep it with you at all times. A person caring for you can give the naloxone if you stop breathing or don't wake up. Your caregiver must still get emergency medical help and may need to perform CPR (cardiopulmonary resuscitation) on you while waiting for help to arrive. Anyone can buy naloxone from a pharmacy or local health department. Make sure any person caring for you knows where you keep naloxone and how to use it. What should I avoid while taking oxycodone? Do not drink alcohol or any products that contain alcohol. Dangerous side effects or could occur. Avoid driving or hazardous activity until you know how this medicine will affect you. Dizziness or drowsiness can causing falls, accidents, or severe injuries. Also avoid getting up too fast from a sitting or lying position, or you may feel dizzy. What are the possible side effects of oxycodone? Get emergency medical help if you have signs of an allergic reaction: hives, difficult breathing, swelling of your face, lips, tongue, or throat. Opioid medicine can slow or stop your breathing, and may occur, especially if you drink alcohol or use other drugs that cause drowsiness or slow breathing. A person caring for you should give naloxone and/or seek emergency medical attention if you have slow breathing with long pauses, blue colored lips, or if you are hard to wake up. Call your doctor at once if you have: slow heart rate, weak pulse, fainting, slow breathing (breathing may stop); chest pain, fast or pounding heartbeats; a seizure, extreme drowsiness; or decreased adrenal gland hormones--nausea, vomiting, stomach pain, loss of appetite, feeling tired or light-headed, muscle or joint pain, skin discoloration, craving salty foods. Serious breathing problems may be more likely in older adults and in those who are debilitated or have wasting syndrome or chronic breathing disorders. Seek medical attention right away if you have symptoms of serotonin syndrome, such as: agitation, hallucinations, fever, sweating, shivering, fast heart rate, muscle stiffness, twitching, loss of coordination, nausea, vomiting, or diarrhea. Common side effects may include: sleep problems (insomnia), itching; drowsiness, headache, dizziness, tiredness; or constipation, stomach pain, nausea, vomiting. This is not a complete list of side effects and others may occur. Call your doctor for medical advice about side effects. You may report side effects to FDA at 8-067-EDI-7777. What other drugs will affect oxycodone? You may have a fatal oxycodone overdose if you start or stop using certain medicines. Tell your doctor about all your medications. Tell your doctor about all your medications especially if you use medicine to treat HIV, antibiotic, antifungal medication, or seizure medication. Many other drugs can be dangerous when used with opioid medicine. Tell your doctor if you also use: medicine for allergies, asthma, blood pressure, motion sickness, irritable bowel, or overactive bladder; other opioid medicines, a benzodiazepine sedative like Valium, Klonopin, or Xanax; sleep medicine, muscle relaxers, or other drugs that make you drowsy; or drugs that affect serotonin, such as antidepressants, stimulants, or medicine for migraines or Parkinson's disease. This list is not complete and many other drugs may affect oxycodone. This includes prescription and kpaj-mtf-ncxkevz medicines, vitamins, and herbal products. Not all possible drug interactions are listed here. Where can I get more information? Your doctor or pharmacist can provide more information about oxycodone. Remember, keep this and all other medicines out of the reach of children, never share your medicines with others, and use this medication only for the indication prescribed. Every effort has been made to ensure that the information provided by [employer] ('[employer]') is accurate, up-to-date, and complete, but no guarantee is made to that effect. Drug information contained herein may be time sensitive. [employer] information has been compiled for use by healthcare practitioners and consumers in the [place] and therefore [employer] does not warrant that uses outside of the [place] are appropriate, unless specifically indicated otherwise. [employer]s drug information does not endorse drugs, diagnose patients or recommend therapy. [employer] drug information is an informational resource designed to assist licensed healthcare practitioners in caring for their patients and/or to serve consumers viewing this service as a supplement to, and not a substitute for, the expertise, skill, knowledge and judgment of healthcare practitioners. The absence of a warning for a given drug or drug combination in no way should be construed to indicate that the drug or drug combination is safe, effective or appropriate for any given patient. [employer] does not assume any responsibility for any aspect of healthcare administered with the aid of information [employer] provides. The information contained herein is not intended to cover all possible uses, directions, precautions, warnings, drug interactions, allergic reactions, or adverse effects. If you have questions about the drugs you are taking, check with your doctor, nurse or pharmacist. Copyright 0771-5720 [employer]. Version: 17.01. Revision Date: 04/27/2023. Education Materials [facility] Post-operative Instructions PLEASE FOLLOW [facility] POST-OP INSTRUCTIONS GIVEN WATCH FOR SIGNS OF INFECTION: call the office ([phone]) if experencing any of the following: (Usually appears 36-48 hours after surgery) Increased temperature (101 degrees Fahrenheit or higher) Redness or swelling Increased uncontrolled pain Foul odor or drainage Calf discomfort Significant swelling Or if having any chest pain, shortness of breath, or difficulty breathing or swallowing call the office or go the nearest Emergency Room. If you have any questions, please call your doctor at the number listed on your follow up instructions. Form: 338A ([id number]) R: 08/09 Additional Information VACCINATE! IT SAVES LIVES! Members of the community who have not yet received the COVID-19 vaccine and would like to receive it can visit one of [facility] vaccine clinics. There are many vaccine clinic locations within the [facility]. For locations and available times, please visit [email or web address].[place].gov/. It is important to note that some COVID mobile vaccine clinics are held outdoors and may be canceled in rainy or stormy conditions. To learn more about pediatric vaccinations (ages 5-11), we invite you to visit the [employer] [facility] webpage. [email or web address] To learn more about the COVID-19 vaccine, we invite you to visit the CDC website for a list of frequently asked questions.https://www.cdc.gov/cor onavirus/2019-ncov/vaccines/faq.h tml [employer] Patient Portal Access Instructions: Stay connected with your healthcare team and access your personal medical information anytime with the [employer] Patient Portal. Please follow the directions below to create your [employer] account: 1.Access the email account you provided upon registration to the hospital/physician office.2.Look for an invitation email from [facility].3.Open the email and access the invitation link: Accept Invitation to [employer].4.Fill in the required perez to create your account. To access your account, visit [employer])/[employer]. Click the blue button labeled Access Patient Portal and then log in with the username and password that you created in the steps above. You will be able to view your test results, lab results, a summary of your visits, upcoming appointments and more. There is also a convenient messaging option where you can send secure messages to your provider. In addition, you will have the ability to download any documents or summaries to your computer and/or send the information securely to a physician. Remember that your healthcare information is confidential, so carefully consider who you will allow to register on the [employer] Patient Portal for access to your information. You can also access the [employer] Patient Portal on the [employer] jeanne. Simply click on Patient Portal and then log into your account. If you would like to receive a full copy of your medical records, please contact the [facility] Medical Records Department by calling [phone], Wednesday through Wednesday between 8 a.m. and 4:30 p.m. HOW TO SAFELY DISPOSE OF PRESCRIPTION MEDICATIONS Please use one of the following methods to safely dispose of your unused medications. 1.Use a drug disposal kit: the drug disposal pouch allows you to safely discard your old and unused drugs. Ask your nurse to give you one when you are discharged.2.Visit a local take-back location: Many local pharmacies and police departments have programs that collect old and unwanted prescription drugs. Call your local pharmacy or go to http://TapZilla.YASSSU/8S7Or7b to find one close to you.3.Make use of household items: Use cat litter or old coffee grounds to dispose medications if other options are not available. Mix your drugs with these household products, seal them in an airtight container and throw it into the garbage. Call [facility]: [phone] to be sure your drugs can be disposed of in this way. Some medicines may require a different approach.4.Never flush your medications down the toilet. IF YOU HAVE BEEN PRESCRIBED AN OPIOID FOR PAIN If you have been prescribed an opioid (such as hydrocodone, oxycodone or morphine), it is critical to understand the possible side effects and risks of opioid pain medications. Even when taken as directed, opioids can have several side effects including: Tolerance, meaning you might need to take more of a medication for the same pain relief. Nausea, vomiting and/or constipation. Sleepiness, dizziness, dry mouth, confusion, depression or itching. Physical dependence, meaning you have withdrawal symptoms when a medication is stopped, can develop within a few days. KNOW YOUR RESPONSIBILITIES It is important to know exactly how much and how often to take the opioid pain medications you are prescribed. Never take opioids in higher amounts or more often than prescribed. Do not combine opioids with alcohol or other drugs that cause drowsiness, such as benzodiazepines, also known as benzos, including diazepam and alprazolam, muscle relaxants or sleep aids. Never sell or share prescription opioids. This is illegal. Store opioids in a secure place and out of reach of others (including children, family, friends and visitors). The last page of this document has been signed and retained as a CHART COPY. Signatures Patient Education Materials Brianna Carter Post-op Instruction 11/2016 ([id number]) Medication Leaflets docusate and senna, oxycodone My discharge plan and instructions have been reviewed and explained to me and I,MARTINE LANDAVERDE understand my current condition and have read and understand these discharge instructions. I have received a written copy of the plan/instructions. If I have questions, I am aware that I should contact my doctor. Patient/Bilingual Secretary Signature: Date/Time: Relationship to Patient: ____ Witness Name/Signature: Date/Time: [facility] 11-09-2024 Discharge summary Date of Service November 09, 2024 Hospital Course Patient is a 68-year-old female who has had ongoing bilateral knee pain. After failing conservative measures, the patient opted to proceed with a robotic assisted right total knee arthroplasty. The patient underwent the above stated procedure on November 07, 2024. Patient did receive perioperative antibiotics. Intraoperatively was uneventful. For details, please see dictated operative note. The patient was placed in thigh-high teds, bilateral SCDs, remained stable in recovery. Patient was admitted to the second floor at [facility]. The patient's pain was managed with the use of IV and p.o. pain medications. Patient participated in physical therapy. Plan will be for patient to do 2 weeks of home health physical therapy followed by transition into outpatient therapy. Her has had 2 previous strokes and she is concerned about transportation and getting out initially upon discharge. Patient did require an additional night stay as she was having some hypotension postoperatively. Blood pressure has improved. Medicine signed off on patient and okay for discharge. She has chronic anemia in which she will remain on her iron and folic acid. Patient was discharged on postoperative day # 2 to home. Patient was given prescriptions for: Senna and oxycodone. Pain management will be with extra strength Tylenol, her diclofenac twice daily, and oxycodone for breakthrough pain. She is followed by pain management for chronic pain. She uses tramadol at home. She will discontinue the use of tramadol for the first 6 weeks postoperatively while orthopedics manages the pain. Patient voiced understanding and agreement of not using the tramadol in addition to the oxycodone. She has yet to have a bowel movement and will continue with our bowel regimen. If she has not had a bowel movement by tomorrow she will contact our office for further recommendations. Patient will require follow-up with her PCP in 2-3 weeks with repeat labs. Lab order was placed on chart. Would appreciate any continue monitoring of her chronic anemia and treatment by the primary care provider. Patient will follow-up with [facility] per postop instructions. While at home patient was encouraged to continue the incentive spirometer every 30-60 minutes for the next 1 week. She has the ability to monitor her O2 saturation at home. Continue with the CPAP at nighttime. Allergies sulfa drug itching Procedures Robotic assisted right total knee arthroplasty Consults Consult to Anesthesia - Ordered -- 11/07/24 6:27:00 EDT, Other Consult to Physician - Ordered -- 11/07/24 12:23:00 EDT, KELSEY PANTOJA APRN-CHERIE, Routine, ok to see tomorrow, Constant order, Medical physician. Objective Vitals and Measurements T: 37.1 C (Oral) TMIN: 37.1 C (Oral) TMAX: 38 C (Oral) HR: 85 RR: 20 BP: 126/57 SpO2: 92% Weight Dosing Weight: 79 kg (11/07/24) Dosing Weight: 79 kg (11/07/24) Vital signs stable, afebrile. Blood pressures improved. O2 saturation ranging from 91% to 94%. She is continuing to work on incentive spirometer SCD's and WANG Hose in place bilaterally Patient is able to plantarflex and dorsiflex actively Sensation is intact to saphenous, sural, superficial and deep peroneal, and tibial distribution Main Mepilex dressing clean dry and intact. Mild drainage over the distal pin site dressing Negative signs and symptoms of DVT, negative Homans bilaterally Code Status Code Status - Ordered -- 11/07/24 9:54:00 EDT, Full Code, Constant Order Admission Date November 07, 2024 Discharge Date November 09, 2024 Medications New Prescription acetaminophen (Tylenol)1,000 Milligram by mouth three (3) times a day. not to exceed 3000 mg/day. docusate-senna (Senokot S 50 mg-8.6 mg oral tablet)2 tab(s) by mouth two (2) times a day for 3 Days. Take until first bowel movement, then as needed. Refills: 0. oxyCODONE (oxyCODONE 5 mg oral tablet ( IMMEDIATE release ))1-2 tab(s) Oral q4h; as needed as needed for pain. Refills: 0. Changed [id number] Milligram by mouth twice daily with meals for 30 Days. Take 81 mg aspirin twice daily with food for 4 weeks postoperatively for DVT prophylaxis. After 4 weeks you can then go back to your normal 81 mg aspirin daily.. Unchanged calcium carbonate (calcium carbonate 600 mg oral tablet, chewable)1 tab(s) Chewed daily at bedtime. cholecalciferol (Vitamin D3 50 mcg (2000 intl units) oral capsule)1 cap by mouth once a day. clobetasol topical (clobetasol 0.05% topical cream)wed, wed, wednesday. diclofenac (diclofenac sodium 75 mg oral delayed release tablet)1 tab(s) by mouth two (2) times a day. ferrous gluconate (ferrous gluconate 324 mg (38 mg elemental iron) oral tablet)1 tab(s) by mouth every day. fluticasone nasal (Flonase 50 mcg/inh nasal spray)1 spray(s) each nostril once a day (in the morning). folic acid (folic acid 0.4 mg oral tablet)1 tab(s) by mouth once a day. gabapentin (gabapentin 400 mg oral capsule)1 cap by mouth four (4) times a day. lisinopril (lisinopril 10 mg oral tablet)1 tab(s) by mouth every day. magnesium citrate (magnesium citrate 100 mg oral capsule)1 cap by mouth once a day. melatonin (melatonin 10 mg oral capsule)1 cap by mouth daily at bedtime as needed for insomnia. rosuvastatin (rosuvastatin 5 mg oral tablet)1 tab(s) by mouth every day. tiZANidine (tiZANidine 4 mg oral capsule)1 cap by mouth daily at bedtime as needed for muscle spasm. traZODone (traZODone 50 mg oral tablet)1 tab(s) daily at bedtime. venlafaxine (venlafaxine 150 mg oral capsule, extended release)1 cap by mouth twice daily with meals. vitamin E (vitamin E 400 intl units oral capsule)1 cap by mouth every day. Discontinued chondroitin-glucosamine (Chondroitin-Glucosamine 400 mg-500 mg oral tablet)1 cap by mouth two (2) times a day. herbal/nutritional product (turmeric 500 mg oral capsule)1 cap by mouth every day. traMADol (traMADol 50 mg oral tablet)1 tab(s) by mouth every 12 hours as needed for pain. Follow Up Follow Up with EVANGELISTA JONES PA-C, Orthopedic When:11/20/2024 01:15 PM EDT Where:[facility] [address] [place] [address]- Additional Information: Follow-up as scheduled Follow Up with ERIBERTO TOVAR MD When:11/21/2024 10:00 AM EDT Where:[address] [place] [address]- Additional Information: Follow-up as scheduled Will be with nurse practitioner Ba Yates Follow Up Appointments Consult Home Health - OT (Home Health OT Consult) - Ordered -- 11/08/24 10:05:00 EDT, Home Therapy Order: OT Eval & Treat, Home Therapy Instruction: Full weight bearing, Reason: ADL assistance Consult Home Health - PT (Home Health PT Consult) - Ordered -- 11/08/24 10:05:00 EDT, Home Therapy Order: PT Eval & Treat, Reason: Post total knee, Home Therapy Instruction: Full weight bearing Consult Home Health - RN (Home Health RN Consult) - Ordered -- 11/08/24 10:05:00 EDT, Reason: Disease management Follow Up Labs/Studies Discharge Labs Discharge Outpatient Labwork - Ordered -- CBC, Anemia, follow-up within: 2-3 weeks, Results Notify to: ERIBERTO TOVAR MD, 11/08/24 8:21:00 EDT Discharge Studies No Follow-up Studies Discharge Diet No qualifying data available. Discharge Activity No qualifying data available. Condition on Discharge Stable Readmission Risk/Palliative Score LACE Score: 3 (11/07/24 13:03:00) Palliative Total Score: 0 (11/07/24 12:33:00) Discharge Disposition Stable Digitally Signed by EVANGELISTA JONES PA-C on 11/09/2024 12:41 PM [facility] 11-09-2024 Note Date of Service November 09, 2024 Subjective The patient was sitting in bed upon examination. Patient denies any chest pain, shortness of breath, dizziness, lightheadedness, nausea or vomiting, or calf pain. No adverse overnight events. Pain has been controlled on medications. Patient states the pain is much worse today. However when she takes the medications it is helpful. She is on Tylenol, nonsteroidal anti-inflammatory, and oxycodone. She did require an additional night stay as she was having some hypotension. She has chronic anemia in which her hemoglobin has been stable. Currently 8.7. Patient is resuming her iron and folic acid at home. She will require home health physical therapy. Care management team is on board. Objective Vitals and Measurements T: 37.1 C (Oral) TMIN: 37.1 C (Oral) TMAX: 38 C (Oral) HR: 85 RR: 20 BP: 126/57 SpO2: 92% Intake and Output 7AM Yesterday to 7AM Today Intake and Output (Last 24 hours) Intake Oral Intake 400.00 Supplement Intake 0.00 Output Urine Count 2.00 Total Summary Total Intake 400.00 Total Output 0.00 Fluid Balance 400.00 Physical Exam Vital signs stable, afebrile. Patient has had some fluctuations in her O2 saturation. She has obstructive sleep apnea. She does require CPAP. Encouraging incentive spirometer every 30-60 minutes. SCD's and WANG Hose in place bilaterally Patient is able to plantarflex and dorsiflex actively Sensation is intact to saphenous, sural, superficial and deep peroneal, and tibial distribution Mepilex dressing clean dry and intact. Distal pin site dressing mild drainage Negative signs and symptoms of DVT, negative Homans bilaterally Weight Dosing Weight: 79 kg (11/07/24) Dosing Weight: 79 kg (11/07/24) Medications Medications (26) Active Scheduled: (14) acetaminophen 500 mg Tablet 1,000 mg 2 tab(s), Oral, q8hr aspirin 81 mg EC 81 mg 1 tab(s), Oral, BIDM atorvastatin 10 mg tablet 10 mg 1 tab(s), Oral, qHS docusate sodium 100 mg Capsule 100 mg 1 cap(s), Oral, BID docusate-senna (Senokot S) 50 mg-8.6 mg Tablet 2 tab(s), Oral, BID famotidine 20 mg tablet 20 mg 1 tab(s), Oral, qDay ferrous sulfate 325 mg Tablet 325 mg 1 tab(s), Oral, qDay folic acid 0.4 mg tablet 0.4 mg 1 tab(s), Oral, qDay gabapentin 400 mg capsule 400 mg 1 cap(s), Oral, QID magnesium hydroxide 8% Suspension 30 mL UD 30 mL, Oral, Daily meloxicam 7.5 mg tablet 7.5 mg 1 tab(s), Oral, BIDM multivitamin (Myadec) with minerals Therapeutic Multiple Vitamins with Minerals Tablet 1 tab(s), Oral, qDayM traZODONE 50 mg Tablet 50 mg 1 tab(s), Oral, qHS venlafaxine 75 mg ER capsule 150 mg 2 cap(s), Oral, BIDM Continuous: (1) Lactated Ringers 1,000 mL 1,000 mL, Intravenous, 100 mL/hr PRN: (11) acetaminophen 325 mg Tablet 650 mg 2 tab(s), Oral, q4h diphenhydramine 25 mg tablet 25 mg 1 tab(s), Oral, q6h diphenhyDRAMINE 50 mg/mL (1 mL) INJ 25 mg 0.5 mL, IV Push, q6h melatonin 3 mg tablet 9 mg 3 tab(s), Oral, qHS morphine 2 mg/mL 1 mL syringe 2 mg 1 mL, IV Push, q1h ondansetron 2 mg/ 1 mL 2 mL INJ 4 mg 2 mL, IV Push, q8h oxycodone 5 mg tablet (immediate release) 5 mg 1 tab(s), Oral, q4h oxycodone 5 mg tablet (immediate release) 10 mg 2 tab(s), Oral, q4h prochlorperazine 10 mg/2 mL vial 5 mg 1 mL, IV Push, q6h sodium biphosphate-sodium phosphate 19 gm-7 gm Enema 133 mL, Rectal, qDay tiZANidine 2 mg tablet 4 mg 2 tab(s), Oral, qHS Lab Results 11/09 05:28 WBC: 12.5 H Hgb: 8.7 L Hct: 27.3 L Platelet: 286 Neutrophil %: 75.3 H Glucose Level: 116 H Sodium Level: 137 Potassium Level: 4.1 BUN: 16 Creatinine Lvl (s): 0.94 08/06 05:18 WBC: 14.2 H Hgb: 8.5 L Hct: 26.9 L Platelet: 284 Neutrophil %: 75.9 H Glucose Level: 91 Sodium Level: 137 Potassium Level: 4.8 BUN: 21 H Creatinine Lvl (s): 0.90 EKG No qualifying data available. Assessment/Plan Anemia Anxiety HTN (hypertension) OA (osteoarthritis) 1. Status post robotic assisted right total knee arthroplasty postop day #2 2. Continue pain medications: Tylenol and oxycodone. Patient does use diclofenac at home. She is also currently managed with pain management Dr. Chavez. She has been advised that we will manage the narcotics for the first 6 weeks. She is not to use the tramadol upon discharge. After 6 weeks we will refer her back to the pain management for continued management. She voiced understanding and agreement. 3. DVT prophylaxis: Take 81 mg aspirin twice daily with food for 4 weeks postoperatively for DVT prophylaxis. Patient denies past history of DVT or pulmonary embolism. Patient will continue with WANG hose for 2 weeks postoperatively 4. Physical therapy: Weightbearing as tolerated with walker 5. H & H: 8.7/27.3, asymptomatic. Patient has chronic anemia in which she takes ferrous sulfate and folic acid. Preoperatively her hemoglobin was 11.8. I would also recommend patient follow-up with the primary care provider in approximately 2 weeks with repeat lab and further management. Lab order will be placed on chart. 6. Reactive Leukocytosis: Trending down currently 12.5, afebrile. Patient did receive decadron intra-operatively. No clinical signs of infection. 7. Encouraged incentive spirometry 8. Continue postoperative medical management per medicine: Case was discussed with medicine. Medicine states patient is ready for discharge home. She can resume her blood pressure medications at home. She has the ability to monitor her blood pressure. If she has any complications with her blood pressure she is to contact her PCP. She voiced understanding. 9. Postoperative constipation: Discussed with the patient to continue stool softener until first bowel movement. After first bowel movement patient can then take as needed. They were also instructed that if they are not able to have a bowel movement within 3 days they are to contact our office for change of medication. Patient voiced understanding. 10. Disposition: Plan will be for discharge home today. Care management team is on board for making sure patient has home health physical therapy for the first 2 weeks. She will also require follow-up with her primary care provider in 2-3 weeks for repeat labs and continued monitoring and treatment of the chronic anemia. Patient would like her medications E scribed to drug [facility] in [facility]. We had a lengthy discussion again about the chronic pain medications. She has not to use the tramadol at home. We will manage her pain with the oxycodone for the first 6 weeks. After 6 weeks she will then go back to her pain management provider. She did voiced understanding and agreement. Patient will follow-up per our postoperative instructions. Upon discharge she will contact our office with any worsening symptoms. I have reviewed the [place] Automated Rx Reporting System (OARRS) report for this patient for refill pattern and other prescriber involvement as part of the appropriate surveillance for the provision of acute and chronic controlled medications. The report was requested and reviewed on the date of this entry, and was considered in the prescribing process This dictation was created using voice recognition software. Phonetic and/or grammatical errors may exist. Digitally Signed by EVANGELISTA JONES PA-C on 11/09/2024 12:31 PM [facility] 11-09-2024 Pastoral care Progress note Pastoral Care Note Entered On: 11/09/2024 9:56 EDT Performed On: 11/09/2024 9:53 EDT by Evangelista Redman Pastoral Care Spiritual Care Visit Initiated by : Consult/Referral Type of Pastoral Visit : Initial visit Spiritual Care Reason for Visit : General Pastoral Care Referral From : Patient Spiritual Assessment : Positive Image of God, Spiritually Strong, Good [employer] Group Support Spiritual Care Emotional Assessment : Frustrated, Feeling Helpless, Tearful Spiritual Care Intervention : Compassion/Empathy, Supportive presence, Prayer with Patient/Family Spiritual Outcomes : Expresses Gratitude Spiritual Plan of Care : Visit as Requested Pastoral Care Comments : patient grimaces in pain and explains her inability to go home yet due to issues after surgery; pt says that RN was just in the room and is aware of her discomfort; pt acknowledges her yue resources and says Just say a prayer for me; prayer and presence with compassionate words given Pastoral Care Visit Length : 10 minute(s) Evangelista Redman - 11/09/2024 9:53 EDT Digitally Signed by Evangelista Redman on 11/09/2024 09:53 AM [facility] 11-09-2024 Note Date of Service 11/09/2024 Chief Complaint right knee pain Subjective Patient seen and evaluated this morning while resting in bed. Patient states that she is having back pain right now but otherwise is doing well. Nursing with concerns about erythema surrounding patient's right knee dressing site. Primary team will be in around noon and can assess the site then. Patient reports increased pain in her right knee. Patient advised that her hemoglobin trended up to 8.7 from 8.5 yesterday. We did check iron studies and this shows that her iron level is low. Attempted to give a one-time dose of Venofer IV today but patient's IV went bad and she does not want it restarted. Patient states she already takes ferrous gluconate at home. We will restart that this morning. Patient moaning loudly in bed, states her back pain is really bad right now. 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 When asked if she takes anything for the back pain at home, she states she does take Tramadol but she is off that right now. Patient advised that she is on a stronger pain pill for her knee so that should help her back pain. Blood pressures are much better today. Patient can resume her home medications on discharge. Patient denies any fever, chills, cough, shortness of breath, chest pain, abdominal pain, nausea or dysuria. Labs and vitals reviewed and stable. Physical exam unremarkable. From hospitalist perspective, patient is medically optimized for discharge home today. Will defer to primary team to make final decision on discharge. All questions answered. Objective Vitals and Measurements T: 37.1 C (Oral) TMIN: 36.4 C (Oral) TMAX: 38 C (Oral) HR: 85 RR: 20 BP: 126/57 SpO2: 92% Intake and Output 7AM Yesterday to 7AM Today Intake and Output (Last 24 hours) Intake Oral Intake 400.00 Supplement Intake 240.00 Output Urine Count 2.00 Total Summary Total Intake 640.00 Total Output 0.00 Fluid Balance 640.00 Physical Exam General: No acute distress. Patient is alert, chronically ill-appearing. Skin: No rash. Skin is warm, dry and intact. HEENT: Head is normocephalic, atraumatic. Pupils are equal, round and reactive. Neck: Supple. No lymphadenopathy, thyromegaly. Lungs: Bilaterally clear but diminished without crepitation or wheeze. Unlabored. Heart: Heart is regular rhythm, S1, S2. No murmurs, gallops or rubs. Abdomen: Abdomen is soft, nontender. Bowels sounds present in all quadrants. Extremities: No clubbing, cyanosis, or edema. Peripheral pulses palpable. No calf tenderness. Right knee surgical dressing dry and intact with some erythema noted on medial side. Neurological: Patient is awake and alert to person, place and time. Following simple commands, moving all extremities. Weight Dosing Weight: 79 kg (11/07/24) Dosing Weight: 79 kg (11/07/24) Medications Medications (26) Active Scheduled: (14) acetaminophen 500 mg Tablet 1,000 mg 2 tab(s), Oral, q8hr aspirin 81 mg EC 81 mg 1 tab(s), Oral, BIDM atorvastatin 10 mg tablet 10 mg 1 tab(s), Oral, qHS docusate sodium 100 mg Capsule 100 mg 1 cap(s), Oral, BID docusate-senna (Senokot S) 50 mg-8.6 mg Tablet 2 tab(s), Oral, BID famotidine 20 mg tablet 20 mg 1 tab(s), Oral, qDay folic acid 0.4 mg tablet 0.4 mg 1 tab(s), Oral, qDay gabapentin 400 mg capsule 400 mg 1 cap(s), Oral, QID iron sucrose 200 mg 10 mL, IV Piggyback, Once magnesium hydroxide 8% Suspension 30 mL UD 30 mL, Oral, Daily meloxicam 7.5 mg tablet 7.5 mg 1 tab(s), Oral, BIDM multivitamin (Myadec) with minerals Therapeutic Multiple Vitamins with Minerals Tablet 1 tab(s), Oral, qDayM traZODONE 50 mg Tablet 50 mg 1 tab(s), Oral, qHS venlafaxine 75 mg ER capsule 150 mg 2 cap(s), Oral, BIDM Continuous: (1) Lactated Ringers 1,000 mL 1,000 mL, Intravenous, 100 mL/hr PRN: (11) acetaminophen 325 mg Tablet 650 mg 2 tab(s), Oral, q4h diphenhydramine 25 mg tablet 25 mg 1 tab(s), Oral, q6h diphenhyDRAMINE 50 mg/mL (1 mL) INJ 25 mg 0.5 mL, IV Push, q6h melatonin 3 mg tablet 9 mg 3 tab(s), Oral, qHS morphine 2 mg/mL 1 mL syringe 2 mg 1 mL, IV Push, q1h ondansetron 2 mg/ 1 mL 2 mL INJ 4 mg 2 mL, IV Push, q8h oxycodone 5 mg tablet (immediate release) 5 mg 1 tab(s), Oral, q4h oxycodone 5 mg tablet (immediate release) 10 mg 2 tab(s), Oral, q4h prochlorperazine 10 mg/2 mL vial 5 mg 1 mL, IV Push, q6h sodium biphosphate-sodium phosphate 19 gm-7 gm Enema 133 mL, Rectal, qDay tiZANidine 2 mg tablet 4 mg 2 tab(s), Oral, qHS Lab Results 11/09 05:28 WBC: 12.5 H Hgb: 8.7 L Hct: 27.3 L Platelet: 286 Neutrophil %: 75.3 H Glucose Level: 116 H Sodium Level: 137 Potassium Level: 4.1 BUN: 16 Creatinine Lvl (s): 0.94 11/08 05:18 WBC: 14.2 H Hgb: 8.5 L Hct: 26.9 L Platelet: 284 Neutrophil %: 75.9 H Glucose Level: 91 Sodium Level: 137 Potassium Level: 4.8 BUN: 21 H Creatinine Lvl (s): 0.90 Imaging Results and Diagnostics XR Knee 1 or 2 Views Right Result Date: November 07, 2024 Verified By: CROW CARD MD CLINICAL STATEMENT: IMPRESSION: Arthroplasty with immediate postoperative changes. EKG No qualifying data available. Assessment/Plan 1. OA (osteoarthritis) Chronic, s/p right total knee arthroplasty. POD #2. Consult placed to PT and OT to evaluate and treat - following. Continue PO pain medication and antiemetic. 2. Anemia Chronic. Baseline hemoglobin 10.3-11.8. On preop labs, hemoglobin was 11.5 but down to 8.5 yesterday - trended up to 8.7 today. Iron level low. Will restart home ferrous gluconate. Per primary team, order placed for patient to have repeat labs and follow-up with her PCP. 3. Anxiety Chronic. Continue current home medications. 4. HTN (hypertension) Chronic. Blood pressure stable today. Patient may restart her home antihypertensives on d/c. SBP goal of 140 or less. Patient seen and evaluated this morning while resting in bed. Physical exam was unremarkable. Lab results and vital signs trends reviewed and were stable. From hospitalist perspective, patient is medically optimized for discharge home today. Hospitalist service will sign-off at this time. Please feel free to re-consult service if there are any changes in condition. Thank you for including hospitalist service in the care of your patient! DVT prophylaxis with aspirin 81 mg PO BID. Code status: Full Code. Labs, diagnostic test and progress notes reviewed as noted in HPI. Plan of care discussed with patient. All questions answered. Patient verbalizes understanding and is agreeable with plan of care. This case was discussed with collaborating physician, Dr. Mynor Castro. Anticipated Date of Discharge likely today Time Spent 36 minutes spent reviewing past diagnostic tests, reviewing lab results, vital sign trends, medical history, reviewing medications and ordering home medications, examining patient, discussed plan of care with care team, collaborating with physician, and documenting in chart. Digitally Signed by ALY SPARKS on 11/09/2024 11:42 AM [facility] 11-08-2024 Note Date of Service 11/08/2024 Chief Complaint right knee pain Subjective Patient seen and evaluated this morning while resting in bed. She states that she feels fine this morning and denies any pain or other issues. Her blood pressures have been on the low side, upper 90's to low 100's. She was seen by a colleague yesterday who held her home blood pressure medications. Patient denies being symptomatic with this and states that her normal systolic is 112. Patient advised that the pain medications could be making it lower but, as long as she is asymptomatic, it is fine. Her hemoglobin has also dropped quite a bit from 11.5 on 10/17 to 8.5 this morning. Her baseline hemoglobin has ranged from 10.3 to 11.8 on her most recent labs. Spoke with primary team this morning and they are planning to keep patient another night to monitor. Will order iron studies, ferritin and repeat CBC in the am. Patient denies any fever, chills, cough, shortness of breath, chest pain, abdominal pain, nausea or dysuria. Will continue to follow. All questions answered. Objective Vitals and Measurements T: 37.2 C (Oral) TMIN: 36.4 C (Temporal Artery) TMAX: 37.2 C (Oral) HR: 82 RR: 16 BP: 102/50 SpO2: 96% HT: 170.2 cm WT: 79 kg BMI: 27.27 Intake and Output 7AM Yesterday to 7AM Today Intake and Output (Last 24 hours) Intake Administration Information 596.06 Supplement Intake 480.00 Output Intra-Op EBL 150.00 Urine Count 5.00 Total Summary Total Intake 1076.06 Total Output 150.00 Fluid Balance 926.06 Physical Exam General: No acute distress. Patient is alert, chronically ill-appearing. Skin: No rash. Skin is warm, dry and intact. HEENT: Head is normocephalic, atraumatic. Pupils are equal, round and reactive. Neck: Supple. No lymphadenopathy, thyromegaly. Lungs: Bilaterally clear but diminished without crepitation or wheeze. Unlabored. Heart: Heart is regular rhythm, S1, S2. No murmurs, gallops or rubs. Abdomen: Abdomen is soft, nontender. Bowels sounds present in all quadrants. Extremities: No clubbing, cyanosis, or edema. Peripheral pulses palpable. No calf tenderness. Right knee surgical dressing dry and intact. Neurological: Patient is awake and alert to person, place and time. Following simple commands, moving all extremities. Weight Dosing Weight: 79 kg (11/07/24) Dosing Weight: 79 kg (11/07/24) Medications Medications (26) Active Scheduled: (13) acetaminophen 500 mg Tablet 1,000 mg 2 tab(s), Oral, q8hr aspirin 81 mg EC 81 mg 1 tab(s), Oral, BIDM atorvastatin 10 mg tablet 10 mg 1 tab(s), Oral, qHS docusate sodium 100 mg Capsule 100 mg 1 cap(s), Oral, BID docusate-senna (Senokot S) 50 mg-8.6 mg Tablet 2 tab(s), Oral, BID famotidine 20 mg tablet 20 mg 1 tab(s), Oral, qDay folic acid 0.4 mg tablet 0.4 mg 1 tab(s), Oral, qDay gabapentin 400 mg capsule 400 mg 1 cap(s), Oral, QID magnesium hydroxide 8% Suspension 30 mL UD 30 mL, Oral, Daily meloxicam 7.5 mg tablet 7.5 mg 1 tab(s), Oral, BIDM multivitamin (Myadec) with minerals Therapeutic Multiple Vitamins with Minerals Tablet 1 tab(s), Oral, qDayM traZODONE 50 mg Tablet 50 mg 1 tab(s), Oral, qHS venlafaxine 75 mg ER capsule 150 mg 2 cap(s), Oral, BIDM Continuous: (1) Lactated Ringers 1,000 mL 1,000 mL, Intravenous, 100 mL/hr PRN: (12) acetaminophen 325 mg Tablet 650 mg 2 tab(s), Oral, q4h diphenhydramine 25 mg tablet 25 mg 1 tab(s), Oral, q6h diphenhyDRAMINE 50 mg/mL (1 mL) INJ 25 mg 0.5 mL, IV Push, q6h ketorolac 30 mg/mL (1 mL) vial 15 mg 0.5 mL, IV Push, q6h melatonin 3 mg tablet 9 mg 3 tab(s), Oral, qHS morphine 2 mg/mL 1 mL syringe 2 mg 1 mL, IV Push, q1h ondansetron 2 mg/ 1 mL 2 mL INJ 4 mg 2 mL, IV Push, q8h oxycodone 5 mg tablet (immediate release) 5 mg 1 tab(s), Oral, q4h oxycodone 5 mg tablet (immediate release) 10 mg 2 tab(s), Oral, q4h prochlorperazine 10 mg/2 mL vial 5 mg 1 mL, IV Push, q6h sodium biphosphate-sodium phosphate 19 gm-7 gm Enema 133 mL, Rectal, qDay tiZANidine 2 mg tablet 4 mg 2 tab(s), Oral, qHS Lab Results 11/08 05:18 WBC: 14.2 H Hgb: 8.5 L Hct: 26.9 L Platelet: 284 Neutrophil %: 75.9 H Glucose Level: 91 Sodium Level: 137 Potassium Level: 4.8 BUN: 21 H Creatinine Lvl (s): 0.90 Imaging Results and Diagnostics XR Knee 1 or 2 Views Right Result Date: November 07, 2024 Verified By: CROW CARD MD CLINICAL STATEMENT: IMPRESSION: Arthroplasty with immediate postoperative changes. EKG No qualifying data available. Assessment/Plan 1. OA (osteoarthritis) Chronic, s/p right total knee arthroplasty. POD #1. Consult placed to PT and OT to evaluate and treat. Continue PO pain medication and antiemetic. 2. Anemia Chronic. Baseline hemoglobin 10.3-11.8. On preop labs, hemoglobin was 11.5 but down to 8.5 this am. Check iron studies, ferritin and CBC in am. 3. Anxiety Chronic. Continue current home medications. 4. HTN (hypertension) Chronic. Hold antihypertensives today. SBP goal of 140 or less. DVT prophylaxis with aspirin 81 mg PO BID. Code status: Full Code. Labs, diagnostic test and progress notes reviewed as noted in HPI. Plan of care discussed with patient. All questions answered. Patient verbalizes understanding and is agreeable with plan of care. This case was discussed with collaborating physician, Dr. Mynor Castro. Anticipated Date of Discharge next 24 hours Time Spent 37 minutes spent reviewing past diagnostic tests, reviewing lab results, vital sign trends, medical history, reviewing medications and ordering home medications, examining patient, discussed plan of care with care team, collaborating with physician, and documenting in chart. Digitally Signed by ALY SPARKS on 11/08/2024 01:43 PM [facility] 11-08-2024 Note Date of Service November 08, 2024 Subjective The patient was sitting in bed upon examination. Patient denies any chest pain, shortness of breath, dizziness, lightheadedness, nausea or vomiting, or calf pain. No adverse overnight events. Pain has been controlled on medications. Nursing did require to change the distal pin site dressing. I do feel patient's block is still effective at this point as her pain has been very tolerable. Preoperatively she is followed by pain management. She does see Dr. Chavez in which she uses chronic tramadol. She also reports that she has chronic anemia which she has seen a specialist before. She has maintained on ferrous sulfate and folic acid. Objective Vitals and Measurements T: 37.2 C (Oral) TMIN: 36.4 C (Temporal Artery) TMAX: 37.2 C (Oral) HR: 82 RR: 16 BP: 102/50 SpO2: 91% HT: 170.2 cm WT: 79 kg BMI: 27.27 Intake and Output 7AM Yesterday to 7AM Today Intake and Output (Last 24 hours) Intake Administration Information 1696.54 Supplement Intake 240.00 Output Intra-Op EBL 150.00 Urine Count 5.00 Total Summary Total Intake 1936.54 Total Output 150.00 Fluid Balance 1786.54 Physical Exam Patient currently with lower blood pressure readings. She had hypotension intraoperatively. Blood pressure medications are currently on hold, afebrile. She does require CPAP at nighttime for sleep apnea. SCD's and WANG Hose in place bilaterally Patient is able to plantarflex and dorsiflex actively Sensation is intact to saphenous, sural, superficial and deep peroneal, and tibial distribution Main Mepilex dressing clean dry and intact. Trace drainage over the distal pin site. Negative signs and symptoms of DVT, negative Homans bilaterally Weight Dosing Weight: 79 kg (11/07/24) Dosing Weight: 79 kg (11/07/24) Medications Medications (27) Active Scheduled: (14) acetaminophen 500 mg Tablet 1,000 mg 2 tab(s), Oral, q8hr aspirin 81 mg EC 81 mg 1 tab(s), Oral, BIDM atorvastatin 10 mg tablet 10 mg 1 tab(s), Oral, qHS bisacodyl 5 mg EC tablet 10 mg 2 tab(s), Oral, Once docusate sodium 100 mg Capsule 100 mg 1 cap(s), Oral, BID docusate-senna (Senokot S) 50 mg-8.6 mg Tablet 2 tab(s), Oral, BID famotidine 20 mg tablet 20 mg 1 tab(s), Oral, qDay folic acid 0.4 mg tablet 0.4 mg 1 tab(s), Oral, qDay gabapentin 400 mg capsule 400 mg 1 cap(s), Oral, QID magnesium hydroxide 8% Suspension 30 mL UD 30 mL, Oral, Daily meloxicam 7.5 mg tablet 7.5 mg 1 tab(s), Oral, BIDM multivitamin (Myadec) with minerals Therapeutic Multiple Vitamins with Minerals Tablet 1 tab(s), Oral, qDayM traZODONE 50 mg Tablet 50 mg 1 tab(s), Oral, qHS venlafaxine 75 mg ER capsule 150 mg 2 cap(s), Oral, BIDM Continuous: (1) Lactated Ringers 1,000 mL 1,000 mL, Intravenous, 100 mL/hr PRN: (12) acetaminophen 325 mg Tablet 650 mg 2 tab(s), Oral, q4h diphenhydramine 25 mg tablet 25 mg 1 tab(s), Oral, q6h diphenhyDRAMINE 50 mg/mL (1 mL) INJ 25 mg 0.5 mL, IV Push, q6h ketorolac 30 mg/mL (1 mL) vial 15 mg 0.5 mL, IV Push, q6h melatonin 3 mg tablet 9 mg 3 tab(s), Oral, qHS morphine 2 mg/mL 1 mL syringe 2 mg 1 mL, IV Push, q1h ondansetron 2 mg/ 1 mL 2 mL INJ 4 mg 2 mL, IV Push, q8h oxycodone 5 mg tablet (immediate release) 5 mg 1 tab(s), Oral, q4h oxycodone 5 mg tablet (immediate release) 10 mg 2 tab(s), Oral, q4h prochlorperazine 10 mg/2 mL vial 5 mg 1 mL, IV Push, q6h sodium biphosphate-sodium phosphate 19 gm-7 gm Enema 133 mL, Rectal, qDay tiZANidine 2 mg tablet 4 mg 2 tab(s), Oral, qHS Lab Results 11/08 05:18 WBC: 14.2 H Hgb: 8.5 L Hct: 26.9 L Platelet: 284 Neutrophil %: 75.9 H Glucose Level: 91 Sodium Level: 137 Potassium Level: 4.8 BUN: 21 H Creatinine Lvl (s): 0.90 EKG No qualifying data available. Assessment/Plan Anxiety HTN (hypertension) Neuropathy Osteoarthritis 1. Status post robotic assisted right total knee arthroplasty postop day #1 2. Continue pain medications: Tylenol and oxycodone. Patient does use diclofenac at home. She is also currently managed with pain management Dr. Chavez. She has been advised that we will manage the narcotics for the first 6 weeks. She is not to use the tramadol upon discharge. After 6 weeks we will refer her back to the pain management for continued management. She voiced understanding and agreement. 3. DVT prophylaxis: Take 81 mg aspirin twice daily with food for 4 weeks postoperatively for DVT prophylaxis. Patient denies past history of DVT or pulmonary embolism. Patient will continue with WANG hose for 2 weeks postoperatively 4. Physical therapy: Weightbearing as tolerated with walker 5. H & H: 8.5/26.9, asymptomatic. Patient has chronic anemia in which she takes ferrous sulfate and folic acid. Preoperatively her hemoglobin was 11.8. We will plan to recheck hemoglobin tomorrow. I would also recommend patient follow-up with the primary care provider in approximately 2 weeks with repeat lab and further management. Lab order will be placed on chart. 6. Reactive Leukocytosis: currently 14.2, afebrile. Patient did receive decadron intra-operatively. No clinical signs of infection. 7. Encouraged incentive spirometry 8. Continue postoperative medical management per medicine 9. Postoperative constipation: Discussed with the patient to continue stool softener until first bowel movement. After first bowel movement patient can then take as needed. They were also instructed that if they are not able to have a bowel movement within 3 days they are to contact our office for change of medication. Patient voiced understanding. 10. Disposition: Due to the anemia and hypotension we are going to see how patient does today. Blood pressure medications are on hold. Appreciate recommendations from medicine. Patient will continue with therapy while in the hospital. Her has gone through 2 strokes and she would like to get home health physical therapy for the first 2 weeks. After 2 weeks she would then like to proceed with outpatient therapy. I will have the care management team assist with scheduling home health therapy. As long as patient is medically stable plan will be for probable discharge tomorrow. We will repeat labs tomorrow. I have reviewed the [place] Automated Rx Reporting System (OARRS) report for this patient for refill pattern and other prescriber involvement as part of the appropriate surveillance for the provision of acute and chronic controlled medications. The report was requested and reviewed on the date of this entry, and was considered in the prescribing process This dictation was created using voice recognition software. Phonetic and/or grammatical errors may exist. Digitally Signed by EVANGELISTA JONES PA-C on 11/08/2024 08:21 AM [facility] 11-07-2024 Note Exam Date Time Procedure Performing Provider Status 11/07/24 10:12 AM XR Knee 1 or 2 Views Right KIMBERLY CARD MD; Auth (Verified) [id number] ORIGINAL HISTORY: Arthroplasty COMPARISON: No FINDINGS: There is an arthroplasty in near anatomic alignment. There is no radiographic evidence of loosening or failure of hardware. There is gas in the joint space and in the superficial tissues. There is skin eugene. IMPRESSION: Arthroplasty with immediate postoperative changes. Interpreted by: Crow Card MD Preliminary Report By: Crow Card MD Electronically signed By Crow Card MD Dictated Date: 11/07/2024 10:21:57 AM Prelim Date: 11/07/2024 10:22:36 AM Sign Date: 11/07/2024 10:22:36 AM Ordering Provider: JOSE L BARRIOS [facility]08-05-2025 Note* Exam Date Time Procedure Performing Provider Status 11/07/24 8:33 AM US Anesthesia Block Modifi ed [id number] ORIGINAL Images acquired, not reported on this accession number. [facility]08-05-2025 Anesthesiology Consult note Patient: MARTINE LANDAVERDE Age: 68 years Sex: Female : 1955 Associated Diagnoses: None Author: KARISSA EVANS COCOA ROOM OPERATOR-SCIENTIFIC TECHNICAL WRITER Preoperative Information Time of last food or liquid consumption: 11/06/2024 22:00:00 Anesthesia history Patient's history: negative. Family's history: negative. Review of Systems Ear/Nose/Mouth/Throat: Negative except as documented in history of present illness. Respiratory: Negative except as documented in history of present illness. Cardiovascular: Negative except as documented in history of present illness. Gastrointestinal: Negative except as documented in history of present illness. Genitourinary: Negative except as documented in history of present illness. Endocrine: Negative except as documented in history of present illness. Musculoskeletal: Negative except as documented in history of present illness. Integumentary: Negative except as documented in history of present illness. Neurologic: Negative except as documented in history of present illness. Health Status Allergies: Allergic Reactions (Selected) Severity Not Documented Sulfa drug- Itching., Allergies (1) ActiveSeverityReaction sulfa drugitching Current medications: (Selected) Inpatient Medications Ordered Decadron: 10 mg, 1 mL, IV Push, AsDirected LR 1,000 mL: 125 mL/hr, Intravenous, Stop: 11/07/24 23:59:00 EDT Naropin 25 mg + Toradol 15 mg + morphine 2.5 mg + EPINEPHrine 0.3 m mg, 5 mL, mL/hr, Other, PREOP pharm Naropin 25 mg + Toradol 15 mg + morphine 2.5 mg + EPINEPHrine 0.3 m mg, 5 mL, mL/hr, Other, PREOP pharm ceFAZolin: 2 gram(s), 200 mL/hr, IV Piggyback, PREOP pharm tranexamic acid 1 g / 100 mL 0.7% NaCl PMX: 1 gram(s), 100 mL, 300 mL/hr, IV Piggyback, AsDirected tranexamic acid 1 g / 100 mL 0.7% NaCl PMX: 1 gram(s), 100 mL, 300 mL/hr, IV Piggyback, AsDirected Documented Medications Documented Chondroitin-Glucosamine 400 mg-500 mg oral tablet: 1 cap, Oral, BID, 0 Refill(s) Flonase 50 mcg/inh nasal spray: 50 mcg, 1 spray(s), Nostril, each, qAM, 0 Refill(s) Vitamin D3 50 mcg (2000 intl units) oral capsule: 50 mcg, 1 cap(s), Oral, qDay, 60 cap(s), 0 Refill(s) aspirin 81 mg oral delayed release tablet: 81 mg, 1 tab(s), Oral, Daily, 0 Refill(s) calcium carbonate 600 mg oral tablet, chewable: 600 mg, 1 tab(s), Chewed, qHS, 0 Refill(s) clobetasol 0.05% topical cream: See Instructions, wed, wed, wednesday, 0 Refill(s) diclofenac sodium 75 mg oral delayed release tablet: 75 mg, 1 tab(s), Oral, BID, 60 tab(s), 0 Refill(s) ferrous gluconate 324 mg (38 mg elemental iron) oral tablet: 324 mg, 1 tab(s), Oral, Daily, 100 tab(s), 0 Refill(s) folic acid 0.4 mg oral tablet: 0.4 mg, 1 tab(s), Oral, qDay, 100 tab(s), 0 Refill(s) gabapentin 400 mg oral capsule: 400 mg, 1 cap(s), Oral, QID, 120 cap(s), 0 Refill(s) lisinopril 10 mg oral tablet: 10 mg, 1 tab(s), Oral, Daily, 0 Refill(s) magnesium citrate 100 mg oral capsule: 100 mg, 1 cap(s), Oral, qDay, 120 cap(s), 0 Refill(s) melatonin 10 mg oral capsule: 10 mg, 1 cap(s), Oral, qHS, PRN: for insomnia, 90 cap(s), 0 Refill(s) rosuvastatin 5 mg oral tablet: 5 mg, 1 tab(s), Oral, Daily, 0 Refill(s) tiZANidine 4 mg oral capsule: 4 mg, 1 cap(s), Oral, qHS, PRN: for muscle spasm, 30 cap(s), 0 Refill(s) traMADol 50 mg oral tablet: 50 mg, 1 tab(s), Oral, q12h, PRN: for pain, 0 Refill(s) turmeric 500 mg oral capsule: 500 mg, 1 cap(s), Oral, Daily, 0 Refill(s) venlafaxine 150 mg oral capsule, extended release: 150 mg, 1 cap(s), Oral, BIDM, 0 Refill(s) vitamin E 400 intl units oral capsule: 400 International_Unit, 1 cap(s), Oral, Daily, 0 Refill(s), Medications (7) Active Scheduled: (6) ceFAZolin 2 gram(s), IV Piggyback, PREOP pharm dexamethasone 10 mg/mL (1mL) SDV 10 mg 1 mL, IV Push, AsDirected ropivacaine 25 mg + ketorolac 15 mg + morphine 2.5 mg + epinephrine 0.3 mg 25 mg 5 mL, Other, PREOPpharm ropivacaine 25 mg + ketorolac 15 mg + morphine 2.5 mg + epinephrine 0.3 mg 25 mg 5 mL, Other, PREOPpharm tranexamic acid PMX 1 gram(s) 100 mL, IV Piggyback, AsDirected tranexamic acid PMX 1 gram(s) 100 mL, IV Piggyback, AsDirected Continuous: (1) Lactated Ringers 1,000 mL 1,000 mL, Intravenous, 125 mL/hr PRN: (0) Problem list: No problem items selected or recorded., Active Problems (9) Anemia Back pain Chronic fatigue Fibromyalgia GERD (gastroesophageal reflux disease) HTN (hypertension) Neck pain OA (osteoarthritis) Sleep apnea Histories Past Medical History: No active or resolved past medical history items have been selected or recorded. Family History: No family history items have been selected or recorded. Procedure history: Bunionectomy ([id number]). Comments: 10/11/2024 14:14 Felisha Larsen RN bilateral Arthrodesis, carpometacarpal joint, thumb, with or without internal fixation; with autograft (includes obtaining graft) ([id number]). Comments: 10/11/2024 14:15 Felisha Larsen RN left Cervical spinal fusion ([id number]). Comments: 10/11/2024 14:14 Felisha Larsen RN C5-6 Excision of cataract ([id number]). Comments: 10/11/2024 14:14 Felisha Larsen RN bilateral Implantation of spinal cord stimulator generator and electrode ([id number]). Ovarian cystectomy ([id number]). Interphalangeal joint of ring finger ([id number]). Comments: 10/11/2024 14:16 Felisha Larsen RN right Social History: Social & Psychosocial Habits Alcohol 11/07/2024 Use: Never Substance Abuse 11/07/2024 Use: Never Tobacco 11/07/2024 Tobacco Use: Never (less than 100 in l Home/Environment 11/07/2024 Living situation: Home/Independent Domestic Concerns None Primary Dermatology Nurse Practitioner: Self Lives In Single level home Current Home Treatments CPAP Special Services and Community Resources None Spouse Name Jone Marital Status of Patient if Patient Independent Adult: Nutrition/Health 11/07/2024 Type of diet: Regular Appetite Good Eating Difficulties None Skin Breakdown/Decubitus Ulcers No Physical Examination Vital Signs 11/07/2024 6:32 EDT Temperature Temporal Artery 36.7 DegC Peripheral Pulse Rate 80 bpm Respiratory Rate 16 br/min Systolic Blood Pressure Non-Invasive 118 mmHg Diastolic Blood Pressure Non-Invasive 63 mmHg Vital Signs (last 24 hrs) Last Charted Temp Vnajlayl17.7 DegC (NOV 07 06:32) MHM878 mmHg (NOV 07 06:32) DBP63 mmHg (NOV 07 06:32) BMI27.27 (NOV 07 06:44) Measurements from flowsheet : Measurements 11/07/2024 6:44 EDT Height 170.2 cm Admission Weight 79 kg [place] Body Weight 61.62 kg Body Mass Index 27.27 kg/m2 11/07/2024 6:32 EDT Height 170.2 cm Height in inches 67 inch(es) Admission Weight 79 kg Weight Lbs 173.8 lb [place] Body Weight 61.62 kg Admission Body Mass Index 27.27 m2 Pain assessment: Pain Assessment 11/07/2024 7:06 EDT Primary Pain Intensity 7 11/07/2024 6:32 EDT Primary Pain Location Generalized Primary Pain Intensity 7 Pain Scale Type 0-10 Pain scale . General: Alert and oriented. Airway: Normal neck range of motion. Mallampati classification: II (soft palate, fauces, uvula visible). Head: Normocephalic. Dentition Evaluation: Intact, Own teeth. Neck: Full range of motion. Respiratory: Lungs are clear to auscultation. Cardiovascular: Normal rate. Heart Sounds: Normal. Gastrointestinal: Soft. Musculoskeletal Normal range of motion. Integumentary: Intact, Warm, Dry. Neurologic: Alert, Oriented. Review / Management Results review: No qualifying data available , Lab results 11/07/2024 7:10 EDT SN - Preop - CTm Pt in SDS Room 11/07/2024 6:28 SN - Preop - CTm Pt Ready for OR/Proced 11/07/2024 7:10 11/07/2024 7:10 EDT IV Present Present History & Physical Update On Chart Yes 11/07/2024 7:09 EDT SN - CAt - Case Attendee SN - CAt - Case Attendee SN - CAt - Case Attendee SN - CAt - Case Attendee SN - CAt - Case Attendee SN - CAt - Case Attendee SN - CAt - Case Attendee SN - CAt - Case Attendee SN - CAt - Case Attendee SN - CAt - Case Attendee SN - CAt - Case Attendee SN - CAt - Case Attendee SN - CAt - Case Attendee SN - CAt - Case Attendee SN - CAt - Role Performed Primary Surgeon SN - CAt - Role Performed Letter Sorting Machine Operator 1 SN - CAt - Role Performed Letter Sorting Machine Operator 2 SN - CAt - Role Performed SCIENTIFIC TECHNICAL WRITER SN - CAt - Role Performed Lacquer Sprayer 1 SN - CAt - Role Performed Scrub 1 SN - CAt - Role Performed Physician Program Facilitator 11/07/2024 7:08 EDT citric acid-sodium citrate Not Done: Not Appropriate at this Time (Not Done) 11/07/2024 7:06 EDT Primary Pain Intensity 7 celecoxib 400 mg mg oxyCODONE 10 mg mg Lactated Ringers Injection 1,000 mL mL 11/07/2024 7:05 EDT famotidine 20 mg mg 11/07/2024 6:57 EDT Preop Nasal Swab Povidone-Iodine 11/07/2024 6:53 EDT Continuous IV Infusions LR Hand Left 11/07/2024 20 gauge Peripheral IV Activity: Insert new site Peripheral IV Dressing Condition: Clean, Dry, Intact Peripheral IV Dressing Activity: Applied, Transparent dressing Peripheral IV Line Status/Patency: Continuous infusion Peripheral IV Line Care: Secured with tape Peripheral IV Site Condition: No complications Peripheral IV Equipment: Extension set, PRN Adaptor Peripheral IV Number of Attempts: 1 11/07/2024 6:44 EDT Designated Person #1 We May Share PHI Jone [phone] Designated Person #1 Relationship Spouse Designated Person #2 We May Share AMANDA Desai [phone] Designated Person #2 Relationship Daughter Privacy Restrictions Requested None Height 170.2 cm Admission Weight 79 kg [place] Body Weight 61.62 kg Body Mass Index 27.27 kg/m2 Status No, per patient Sensory Deficits None Diagnosed With Sleep Apnea Yes Advanced Directives Yes Advance Directive Type [facility] Power of Drum Printer for [place], [place] Declaration (Living Will) Advance Directive Location Patient instructed to bring in copy Infectious Disease Symptoms Patient states no symptoms Infectious Disease Recent Exposure No Alcohol and Drug Use No Employee of Institutional Living No Health Care Employee No History of Exposure to TB No History of Positive Chest X-Ray for TB No History of Positive TB Skin Test No Homeless No Known Immunosuppression No Recent Immigrant No Resident of Institutional Living No Bloody Sputum No Fatigue No Fever No Loss of Appetite No Night Sweats No Persistent Cough > 3 Weeks No Weight Loss No Pre-Op Patient Education NPO after midnight, No makeup, No jewelry, Responsible Democrat, Aware of surgery location, Pre-op education done, 2 bottles CHG wash with instructions given, No ordered medications, Total Joint Replacement/Colorectal Book Given SN - Preprocedure Comments Spoke with patient, Verbalizes/Nonverbally indicates understanding Anesthesia Evaluation Date/Time 10/11/2024 14:05 Anesthesia Evaluation Performed By JOSEPH GALVAN APRN-SCIENTIFIC TECHNICAL WRITER Anesthesia Evaluation Result Approved Individuals Taught Patient, Spouse Learning Readiness Willing to learn Barriers to Learning None evident Teaching Method Explanation Preferred Spoken Language Senegalese Preferred Written Language Senegalese Pre Procedure/Surgery Education Appropriate expectations Procedure/Surgical Teaching Evaluation Verbalizes/Nonverbally indicates understanding Patient's Current Physicians Patient's Current Physicians History of Malignant Hyperthermia No Discharge To, Anticipated Home independently Prev Test Positive/Diagnosis w/COVID-19 No Current Quarantine/Isolated any Illness No Any Contact with Sick Animals/Birds No Traveled Anywhere in Last 30 Days No Lost Weight Unintentionally Recently No Eat Poorly Due to Decreased Appetite No Total MST Score 0 No Personal Devices, Patient Valuables Glasses Anesthesia/Transfusions Prior anesthesia Admission Note-Nursing Patient History PreTest 11/07/2024 6:36 EDT Urinary Elimination Voiding, no difficulties Allergies Yes Consent Form Signed Yes Patient Dressed In Hospital gown Pre-op Preparation Glasses removed CHG Preoperative Wash/Wipe Night before procedure, Day of procedure CHG Skin Prep Completed for Eligible Surgery History & Physical On Chart Yes Belongings At Bedside Cell phone, CPAP, Shirt, Shoes, Shorts, Socks, Other: METAL ROOM DENTAL TECHNICIAN FOR SPINAL CORDSTIMULATOR NPO Status Maintained, More than 8 hours Allergy Band on and Verified Yes Patient ID Band on and Verified Yes Implants Verified Yes Pacemaker/AICD Verified Yes Site Verified by Patient/Family Yes Blood Consent Signed Yes Last Fluid Intake 11/06/2024 23:55 Last Food Intake 11/06/2024 23:55 Last Void 11/07/2024 6:25 Patient Cleared for Surgery By SANJAY YATES APRN-OPERATOR HELPER Cardiac Clearance For Surgery By NAHUM PEACOCK MD 11/07/2024 6:32 EDT Height 170.2 cm Height in inches 67 inch(es) Admission Weight 79 kg Weight Lbs 173.8 lb [place] Body Weight 61.62 kg Admission Body Mass Index 27.27 m2 Temperature Temporal Artery 36.7 DegC Peripheral Pulse Rate 80 bpm Respiratory Rate 16 br/min Systolic Blood Pressure Non-Invasive 118 mmHg Diastolic Blood Pressure Non-Invasive 63 mmHg Primary Pain Location Generalized Primary Pain Intensity 7 Pain Scale Type 0-10 Pain scale Heart Rhythm Regular Dorsalis Pedis Pulse, Left 2+ Normal Dorsalis Pedis Pulse, Right 2+ Normal Radial Pulse, Left 2+ Normal Radial Pulse, Right 2+ Normal Respirations Unlabored All Lobes Breath Sounds Clear Oxygen Therapy Room air Oxygen Saturation 90 % LOW Abdomen Description Non-distended, Soft Bowel Sounds All Quadrants Present Urinary Elimination Voiding, no difficulties Skin Description Burna, Dry Skin Temperature Warm Skin Integrity Intact Skin Symptoms Bruising Neurological Symptoms Patient denies Extremity Movement Equal Characteristics of Speech Clear Level of Consciousness Alert Strength All Extremities Strong Tone All Extremities Normal Sensation All Extremities Intact Affect/Behavior Appropriate, Calm, Cooperative Orientation Oriented x 4 Activity Status ADL Awake Standard Safety ID band on, Allergy Band on, Call device within reach, Bed in low position, Wheels locked, Upper/Half-Length side-rails up . Assessment and Plan [place] [employer] Anesthesiologists (ASA) physical status classification: Class II. Anesthetic Preoperative Plan Premedication: intravenous. Anesthetic technique: General. Induction: intravenously. Maintenance airway: Laryngeal mask airway. Regional: Adductor Canal Block. Postoperative pain management: Per surgeon. Risks discussed: nausea, vomiting, headache, sore throat, dental injury, hypotension, allergic reaction, serious complications. Informed consent: signed by patient. Digitally Signed by KARISSA EVANS on 11/07/2024 07:20 AM Digitally Signed by KARISSA EVANS on 11/07/2024 08:37 AM [facility]07-21-2025 Telephone encounter Note* Telephone Encounter - Fabi Garner LPN - 10/23/2024 3:53 PM EDT Zoey with [facility] calls to check on pre-op form for knee surgery. Pt had pre- op appt 10/17/24. Zoey is re-faxing the form. Zoey would like form and lab results faxed to: [phone]. Fabi Garner LPN [facility]07-21-2025 Miscellaneous Notes* Telephone Encounter - Fabi Garner LPN - 10/23/2024 3:53 PM EDT Zoey with [facility] calls to check on pre-op form for knee surgery. Pt had pre- op appt 10/17/24. Zoey is re-faxing the form. Zoey would like form and lab results faxed to: [phone]. Fabi Garner LPN [facility] Instructions* Patient Instructions* Sanjay Yates APRN.BALWINDER - 10/17/2024 2:39 PM EDT Low risk of complications. Let your surgeon know about lack of assistance at home p she notes the [facility] assistance she was planning for postoperatively has fallen through and currently does not have anyone to help. ost op Complete lab work today or tomorrow here or at [place], I will send to the surgeon's office. documented in [facility]25 NoteHNO ID: [id number] Author: SANJAY YATES APRN.CNS Service: ? Author Type: Nurse Specialist Type: Progress Notes Filed: 10/23/2024 09:00 Note Text: Subjective Patient ID: Tristian is a 68 year old female who presents for Pre-Op Exam. HPI Presents today for a routine follow up visit. Presents for preoperative visit in internal medicine prior to total knee replacement surgery. Previous testing ordered by surgeon including labs and routine EKG. EKG was abnormal so she was referred to cardiology for further evaluation. She has since undergone repeat EKG which showed abnormal findings and underwent a subsequent stress test. The stress test was negative for ischemia. She was noted to be low risk for surgery. Today reports feeling well. Pre-Operative Evaluation: - Scheduled for right knee replacement surgery in 3 weeks. - Recent cardiology evaluation, including EKG and stress test, cleared her for surgery. - No history of CAD, CVA, or lung disease. - No recent infections since July. - No history of cancer or kidney problems. - Denies chest pain, dyspnea, or oxygen use. - Able to climb two flights of stairs, though not easily. - Independent in ADLs. - No recent steroid use. - No known diabetes. - Non-smoker. - Will bring CPAP machine for overnight hospital stay post-surgery. Chronic Right Knee Pain: - Limits walking to approximately 0.8 miles due to pain. - Requests 4% lidocaine patches for pain management. Hypertension: - Managed with Lisinopril 10 mg daily. - Recent BP readin/58 mmHg. Sleep Apnea: - Uses CPAP machine nightly. Chest pain: no Shortness of breath: no Walking on flat surface: no chest pain or shortness of breath on exertion 2 flight of stairs: can complete, no chest pain or shortness of breath on exertion Heart disease: no Stroke: no SHANNON: Treating consistently She notes the person she had planned to assist with her postoperatively is no longer available and currently does not have any help available at home for the postop period. ACS NSQIP Surgical Risk Calculator 1. Age Group: 65 - 74 years 2. Sex: female 3. Functional Status: Independent 4. Emergency Case: No 5. ASA Class: Mild systemic disease 6. Steroid use for chronic condition: No 7. Ascites within 30 days prior to surgery: No 8. Systemic Sepsis within 48 hours prior to surgery: None 9. Ventilator Dependent: No 10. Disseminated Cancer: No 11. Diabetes: None 12. Hypertension requiring medication: Yes 13. Congestive Heart Failure in 30 days prior to surgery: No 14. Dyspnea: No 15. Current Smoker within 1 Year: No 16. History of COPD: No 17. Dialysis: No 18. Acute Renal Failure: No 19. BMI Class Calculation: Overweight HTN: Without report of headache, chest pain, palpitations, dyspnea, peripheral edema, orthopnea, fatigue, and PND. Last 14 Encounter BP Readings: Date: BP: 10/17/2024 102/58 09/18/2024 114/67 08/31/2024 113/71 07/25/2024 112/67 07/20/2024 104/65 07/10/2024 121/72 07/04/2024 112/64 07/01/2024 122/80 06/22/2024 126/78 06/19/2024 111/65 03/14/2024 118/68 02/28/2024 108/60 02/28/2024 102/62 01/27/2024 117/61 ROS Constitutional: negative Cardiovascular: (-) chest pain Respiratory: (-) shortness of breath Musculoskeletal: (+) right knee pain, (+) back pain Objective BP 102/58 Pulse 77 Resp 16 Wt 78.7 kg (173 lb 8 oz) LMP 10/02/2007 SpO2 95% BMI 27.17 kg/m? Physical Exam Vitals and nursing note reviewed. Constitutional: Appearance: Normal appearance. HENT: Head: Normocephalic and atraumatic. Eyes: Conjunctiva/sclera: Conjunctivae normal. Neck: Thyroid: No thyroid mass or thyromegaly. Vascular: Normal carotid pulses. No carotid bruit or JVD. Cardiovascular: Rate and Rhythm: Normal rate and regular rhythm. Pulses: Carotid pulses are 2+ on the right side and 2+ on the left side. Radial pulses are 2+ on the right side and 2+ on the left side. Heart sounds: Normal heart sounds. Pulmonary: Effort: Pulmonary effort is normal. Abdominal: General: Bowel sounds are normal. Palpations: Abdomen is soft. Musculoskeletal: Right knee: Bony tenderness present. Decreased range of motion. Right lower leg: No edema. Left lower leg: No edema. Skin: General: Skin is warm and dry. Neurological: General: No focal deficit present. Mental Status: She is alert and oriented to person, place, and time. Latest Ref Rng 10/17/2024 WBC 3.70 - 11.00 k/uL 8.43 RBC 3.90 - 5.20 m/uL 4.67 Hemoglobin 11.5 - 15.5 g/dL 11.2 (L) Hematocrit 36.0 - 46.0 % 36.5 MCV 80.0 - 100.0 fL 78.2 (L) MCH 26.0 - 34.0 pg 24.0 (L) MCHC 30.5 - 36.0 g/dL 30.7 RDW-CV 11.5 - 15.0 % 13.9 Platelet Count 150 - 400 k/uL 377 MPV 9.0 - 12.7 fL 9.5 Neut% % 61.7 Abs Neut (ANC) 1.45 - 7.50 k/uL 5.20 Lymph% % 28.5 Abs Lymph 1.00 - 4.00 k/uL 2.40 Nolan% % 8.3 Abs Nolan <0.87 k/uL 0.70 Eosin% % 0.8 Abs Eosin <0 (more content not included)...[facility]07-15-2025 History of Present illness Narrative* YatesSanjay, CARLOS.OPERATOR HELPER - 10/17/2024 2:00 PM EDT Subjective Patient ID: Tristian is a 68 year old female who presents for Pre-Op Exam. HPI Presents today for a routine follow up visit. Presents for preoperative visit in internal medicine prior to total knee replacement surgery. Previous testing ordered by surgeon including labs and routine EKG. EKG was abnormal so she was referred to cardiology for further evaluation. She has since undergone repeat EKG which showed abnormalfindings and underwent a subsequent stress test. The stress test was negative for ischemia. She wasnoted to be low risk for surgery. Today reports feeling well. Pre-Operative Evaluation: - Scheduled for right knee replacement surgery in 3 weeks. - Recent cardiology evaluation, including EKG and stress test, cleared her for surgery. - No history of CAD, CVA, or lung disease. - No recent infections since July. - No history of cancer or kidney problems. - Denies chest pain, dyspnea, or oxygen use. - Able to climb two flights of stairs, though not easily. - Independent in ADLs. - No recent steroid use. - No known diabetes. - Non-smoker. - Will bring CPAP machine for overnight hospital stay post-surgery. Chronic Right Knee Pain: - Limits walking to approximately 0.8 miles due to pain. - Requests 4% lidocaine patches for pain management. Hypertension: - Managed with Lisinopril 10 mg daily. - Recent BP readin/58 mmHg. Sleep Apnea: - Uses CPAP machine nightly. Chest pain: no Shortness of breath: no Walking on flat surface: no chest pain or shortness of breath on exertion 2 flight of stairs: can complete, no chest pain or shortness of breath on exertion Heart disease: no Stroke: no SHANNON: Treating consistently She notes the person she had planned to assist with her postoperatively is no longer available and currently does not have any help available at home for the postop period. ACS NSQIP Surgical Risk Calculator 1. Age Group: 65 - 74 years 2. Sex: female 3. Functional Status: Independent 4. Emergency Case: No 5. ASA Class: Mild systemic disease 6. Steroid use for chronic condition: No 7. Ascites within 30 days prior to surgery: No 8. Systemic Sepsis within 48 hours prior to surgery: None 9. Ventilator Dependent: No 10. Disseminated Cancer: No 11. Diabetes: None 12. Hypertension requiring medication: Yes 13. Congestive Heart Failure in 30 days prior to surgery: No 14. Dyspnea: No 15. Current Smoker within 1 Year: No 16. History of COPD: No 17. Dialysis: No 18. Acute Renal Failure: No 19. BMI Class Calculation: Overweight HTN: Without report of headache, chest pain, palpitations, dyspnea, peripheral edema, orthopnea, fatigue, and PND. Last 14 Encounter BP Readings: Date: BP: 10/17/2024 102/58 09/18/2024 114/67 08/31/2024 113/71 07/25/2024 112/67 07/20/2024 104/65 07/10/2024 121/72 07/04/2024 112/64 07/01/2024 122/80 06/22/2024 126/78 06/19/2024 111/65 03/14/2024 118/68 02/28/2024 108/60 02/28/2024 102/62 01/27/2024 117/61 ROS Constitutional: negative Cardiovascular: (-) chest pain Respiratory: (-) shortness of breath Musculoskeletal: (+) right knee pain, (+) back pain Objective BP 102/58 Pulse 77 Resp 16 Wt 78.7 kg (173 lb 8 oz) LMP 10/02/2007 SpO2 95% BMI 27.17 kg/m Physical Exam Vitals and nursing note reviewed. Constitutional: Appearance: Normal appearance. HENT: Head: Normocephalic and atraumatic. Eyes: Conjunctiva/sclera: Conjunctivae normal. Neck: Thyroid: No thyroid mass or thyromegaly. Vascular: Normal carotid pulses. No carotid bruit or JVD. Cardiovascular: Rate and Rhythm: Normal rate and regular rhythm. Pulses: Carotid pulses are 2+ on the right side and 2+ on the left side. Radial pulses are 2+ on the right side and 2+ on the left side. Heart sounds: Normal heart sounds. Pulmonary: Effort: Pulmonary effort is normal. Abdominal: General: Bowel sounds are normal. Palpations: Abdomen is soft. Musculoskeletal: Right knee: Bony tenderness present. Decreased range of motion. Right lower leg: No edema. Left lower leg: No edema. Skin: General: Skin is warm and dry. Neurological: General: No focal deficit present. Mental Status: She is alert and oriented to person, place, and time. 1. Preop exam for internal medicine (Z01.818) - Patient evaluated for preoperative clearance; cardiology has cleared patient for surgery following EKG and stress test. - Physical examination reveals no abnormalities in heart or lung sounds. - Ordered preoperative lab work to be completed at [facility] tomorrow. - Discussed postoperative care and the importance of arranging for assistance at home; advised to inform the surgeon about the need for overnight stay or rehab if help is unavailable. She is low risk of complications with surgery, no need for any additional testing other than lab work from an internal medicine perspective. 2. Chronic pain of right knee (M25.561) 3. Primary osteoarthritis of right knee (M17.11) - Experiences chronic pain in the right knee, limiting ambulation to approximately 0.8 miles. - Requested lidocaine 4% patches for pain management; informed patient that prescription patches are not covered by insurance and recommended [id number] alternatives. 4. Obstructive sleep apnea (G47.33) - Is compliant with CPAP therapy nightly. - Advised to bring CPAP machine to the hospital for use during the postoperative period. 5. Primary hypertension (I10) - Blood pressure well-controlled on lisinopril 10 mg daily; recent reading 102/58 mmHg. - Continue current antihypertensive regimen. Medical Decision Making: Problems: Moderate: 2+ stable chronic illnesses Data: Unique test result(s) reviewed: 2 Unique test(s) ordered: 2 Risk: Moderate: Drug management and Decision on elective major surgery w/o risk factors Medical Decision Making Level: 4 - Moderate [facility] Evaluation + Plan note Future Appointments Diagnostic Tests Pending * MRSA (PCR) 10/11/24 [facility] 06-16-2025 History of Present illness Narrative* Yates SanjayCARLOS lea.OPERATOR HELPER - 09/18/2024 1:20 PM EDT Subjective Patient ID: Tristian is a 68 year old female who presents for F/U 6 Month. HPI Presents today for a routine follow up visit. Notes increased temperature with home readings intermittently since last here. Low-Grade Fever: - Persistent low-grade fever since July 06, following a viral illness. - Daily temperatures recorded at home, ranging from 97.7 F to 99.9 F. - Fever occurs daily, even before taking medications or drinking water. - Denies any known cause for the fever. - Desires clearance for knee replacement surgery. Knee Pain: - Ongoing knee pain x4 weeks, described as ouchy. - Pain improved but still present; applying lotion after showers. - Awaiting knee replacement surgery; concerned about fever delaying the procedure. - Next appointment with Dr. Barrios scheduled for October 04. Anxiety and Depression: - Anxiety exacerbated by verbal conflicts with . - Family history of anxiety in mother, aunt, and grandmother. - Manages anxiety through prayer and maintaining a positive outlook. - Denies being a worrier. Sleep Apnea: - Diagnosed in 2008. - Uses CPAP nightly, reports improved sleep quality. HTN: Without report of headache, chest pain, palpitations, dyspnea, peripheral edema, orthopnea, fatigue, and PND. Last 3 Encounter BP Readings: Date: BP: 08/31/2024 113/71 07/25/2024 112/67 07/20/2024 104/65 Hyperlipidemia. Ms. Landaverde reports doing well on current therapy. Her most recent lipid panels are: Cholesterol, Total (mg/dL) Date Value 12/27/2023 152 06/11/2023 224 01/23/2020 227 12/16/2017 216 HDL Cholesterol (mg/dL) Date Value 12/27/2023 43 06/11/2023 43 01/23/2020 51 12/16/2017 43 LDL Cholesterol, Calculated (mg/dL) Date Value 12/27/2023 81 06/11/2023 143 01/23/2020 148 12/16/2017 139 Triglyceride (mg/dL) Date Value 12/27/2023 141 06/11/2023 191 01/23/2020 139 12/16/2017 168 ROS Constitutional: (+) subjective fever Musculoskeletal: (+) knee pain, (+) knee tenderness Psychiatric: (+) anxiety, (-) worry Objective BP 114/67 Pulse 82 Resp 16 Wt 78.4 kg (172 lb 13.5 oz) LMP 10/02/2007 BMI 27.07 kg/m Physical Exam Vitals and nursing note reviewed. Constitutional: Appearance: Normal appearance. HENT: Head: Normocephalic and atraumatic. Eyes: Conjunctiva/sclera: Conjunctivae normal. Cardiovascular: Rate and Rhythm: Normal rate. Pulmonary: Effort: Pulmonary effort is normal. Musculoskeletal: Left knee: Bony tenderness present. Decreased range of motion. Tenderness present. Right lower leg: No edema. Left lower leg: Swelling present. No edema. Comments: ecchymosis left knee Skin: General: Skin is warm and dry. Neurological: General: No focal deficit present. Mental Status: She is alert and oriented to person, place, and time. .1. Obstructive sleep apnea (G47.33) - Well-controlled with CPAP use since 2008. 2. Mixed hyperlipidemia (E78.2) Recommend a plant based diet such as Mediterranean diet with plenty of vegetables, fruits,whole grains, fish, chicken, turkey or plant proteins and routine exercise such as walking - Continue current treatment - Counseled on healthy diet and regular exercise 3. Encounter or imunization Z23 RSV vaccine at pharmacy 4. Generalized anxiety disorder (F41.1) 5. Moderate recurrent major depression (HCC) (F33.1) - Anxiety and depression are ongoing, exacerbated by familial stressors. - Is managing symptoms through prayer and mindfulness. 6. Anemia, unspecified type (D64.9) Stable on current treatment, continue unchanged 7. Vitamin D deficiency (E55.9) Stable on current treatment, continue unchanged Sanjay Yates APRN.OPERATOR HELPER Medical Decision Making: Problems: Moderate: 2+ stable chronic illnesses Risk: Moderate: Drug management Medical Decision Making Level: 4 - Moderate documented in this encounterSal[facility] NoteHNO ID: [id number] Author: SANJAY YATES APRN.OPERATOR HELPER Service: ? Author Type: Nurse Specialist Type: Progress Notes Filed: 09/18/2024 14:06 Note Text: Subjective Patient ID: Tristian is a 68 year old female who presents for F/U 6 Month. HPI Presents today for a routine follow up visit. Notes increased temperature with home readings intermittently since last here. Low-Grade Fever: - Persistent low-grade fever since July 06, following a viral illness. - Daily temperatures recorded at home, ranging from 97.7?F to 99.9?F. - Fever occurs daily, even before taking medications or drinking water. - Denies any known cause for the fever. - Desires clearance for knee replacement surgery. Knee Pain: - Ongoing knee pain x4 weeks, described as ouchy. - Pain improved but still present; applying lotion after showers. - Awaiting knee replacement surgery; concerned about fever delaying the procedure. - Next appointment with Dr. Barrios scheduled for October 04. Anxiety and Depression: - Anxiety exacerbated by verbal conflicts with . - Family history of anxiety in mother, aunt, and grandmother. - Manages anxiety through prayer and maintaining a positive outlook. - Denies being a worrier. Sleep Apnea: - Diagnosed in 2008. - Uses CPAP nightly, reports improved sleep quality. HTN: Without report of headache, chest pain, palpitations, dyspnea, peripheral edema, orthopnea, fatigue, and PND. Last 3 Encounter BP Readings: Date: BP: 08/31/2024 113/71 07/25/2024 112/67 07/20/2024 104/65 Hyperlipidemia. Ms. Landaverde reports doing well on current therapy. Her most recent lipid panels are: Cholesterol, Total (mg/dL) Date Value 12/27/2023 152 06/11/2023 224 01/23/2020 227 12/16/2017 216 HDL Cholesterol (mg/dL) Date Value 12/27/2023 43 06/11/2023 43 01/23/2020 51 12/16/2017 43 LDL Cholesterol, Calculated (mg/dL) Date Value 12/27/2023 81 06/11/2023 143 01/23/2020 148 12/16/2017 139 Triglyceride (mg/dL) Date Value 12/27/2023 141 06/11/2023 191 01/23/2020 139 12/16/2017 168 ROS Constitutional: (+) subjective fever Musculoskeletal: (+) knee pain, (+) knee tenderness Psychiatric: (+) anxiety, (-) worry Objective BP 114/67 Pulse 82 Resp 16 Wt 78.4 kg (172 lb 13.5 oz) LMP 10/02/2007 BMI 27.07 kg/m? Physical Exam Vitals and nursing note reviewed. Constitutional: Appearance: Normal appearance. HENT: Head: Normocephalic and atraumatic. Eyes: Conjunctiva/sclera: Conjunctivae normal. Cardiovascular: Rate and Rhythm: Normal rate. Pulmonary: Effort: Pulmonary effort is normal. Musculoskeletal: Left knee: Bony tenderness present. Decreased range of motion. Tenderness present. Right lower leg: No edema. Left lower leg: Swelling present. No edema. Comments: ecchymosis left knee Skin: General: Skin is warm and dry. Neurological: General: No focal deficit present. Mental Status: She is alert and oriented to person, place, and time. .1. Obstructive sleep apnea (G47.33) - Well-controlled with CPAP use since 2008. 2. Mixed hyperlipidemia (E78.2) Recommend a plant based diet such as Mediterranean diet with plenty of vegetables, fruits,whole grains, fish, chicken, turkey or plant proteins and routine exercise such as walking - Continue current treatment - Counseled on healthy diet and regular exercise 3. Encounter or imunization Z23 RSV vaccine at pharmacy 4. Generalized anxiety disorder (F41.1) 5. Moderate recurrent major depression (HCC) (F33.1) - Anxiety and depression are ongoing, exacerbated by familial stressors. - Is managing symptoms through prayer and mindfulness. 6. Anemia, unspecified type (D64.9) Stable on current treatment, continue unchanged 7. Vitamin D deficiency (E55.9) Stable on current treatment, continue unchanged Sanjay Yates APRN.OPERATOR HELPER Medical Decision Making: Problems: Moderate: 2+ stable chronic illnesses Risk: Moderate: Drug management Medical Decision Making Level: 4 - [facility]erateWestern [facility] Instructions* Patient Instructions* Sanjay Yates APRN.OPERATOR HELPER - 08/31/2024 3:42 PM EDT - Ice your knee regularly, and wrap it with an SANTOS bandage or a compression sleeve if it feels comfortable; remove it if it causes more pain. - Keep your knee elevated when you re sitting to help reduce swelling and discomfort. - Continue taking Tylenol and the prescribed oxycodone as needed for pain relief. - Use your cane, walker, or rollator at home to ease weight on your knee and improve stability while walking. - Continue chair yoga, upper-body exercises, and gentle leg-strengthening movements while lying down to maintain muscle strength without overloading the knee. - Attend your orthopedic appointment with Dr. Thompson tomorrow as planned. - Focus on healthy eating and the exercises above, as you do not qualify for weight-loss medicationat this time. documented in this encounterSal[facility]05-29-2025 NoteHNO ID: [id number] Author: SANJAY YATES APRN.CNS Service: ? Author Type: Nurse Specialist Type: Progress Notes Filed: 08/31/2024 16:33 Note Text: Subjective Patient ID: Tristian is a 68 year old female who presents for Hospital F/U. HPI Presents today for hospital follow-up visit. She was seen at [facility] August 23 through August 24, 2024. She presented with left knee pain left knee osteoarthritis. Notes indicate osteoarthritis of the left knee with hemiarthrosis. She presented with swelling and pain in the left knee, no trauma. CT of the knee was performed, there was noted to be a moderate left knee joint effusion with mixed density contents consistent with hemarthrosis versus septic arthritis. There were noted to be intra-articular loose bodies adjacent to the lateral pole of the patella. Mild to moderate osteoarthritis of the knee was noted. The left knee was aspirated in the emergency room, 5 cc of bloody fluid was removed. Due to concern for septic arthritis she was admitted to the PCU and started on IV antibiotics. She was seen by PT OT and orthopedic surgery. MRI was performed and according to the orthopedic surgeon there was no evidence of any fracture or tearing of the meniscus. Orthopedic surgery recommended antibiotics be stopped and she could be sent home with weightbearing as tolerated. Right Knee Pain and Swelling: - Severe pain and swelling in the right knee, described as awful. - Noted a big lump on the knee. - Recent aspiration by a physician yielded 5 cc of blood; no infection suspected. - MRI revealed significant arthritis under the patella with fragments breaking off. - Scheduled to see an orthopedic PA tomorrow. - Taking Tylenol for pain; has oxycodone but uses it sparingly. - Using ice for swelling; has an SANTOS bandage but not consistently using compression. - Has a cane, walkers, and a rollator at home but not currently using them. Viral Infection: - Persistent low-grade fever since a viral infection on July 06. - Multiple tests performed, all negative. - Medical Laboratory Specialist consulted due to abnormal EKGs; noted a tilt in the heart. Weight Management: - Previously walked a mile a day to maintain weight. - Inquired about medication for weight loss, specifically to lose 22 lbs. - Engaging in chair yoga and upper body exercises. ROS Constitutional: (+) fever Musculoskeletal: (+) knee pain, (+) knee swelling Objective BP 113/71 Pulse 91 Temp 37.2 ?C (99 ?F) Resp 16 Wt 79.2 kg (174 lb 9.7 oz) LMP 10/02/2007 BMI 27.35 kg/m? Physical Exam Vitals and nursing note reviewed. Constitutional: Appearance: Normal appearance. HENT: Head: Normocephalic and atraumatic. Eyes: Conjunctiva/sclera: Conjunctivae normal. Cardiovascular: Rate and Rhythm: Normal rate. Pulmonary: Effort: Pulmonary effort is normal. Musculoskeletal: Left knee: Bony tenderness present. Decreased range of motion. Tenderness present. Right lower leg: No edema. Left lower leg: Swelling present. No edema. Comments: ecchymosis and effusion left knee Skin: General: Skin is warm and dry. Neurological: General: No focal deficit present. Mental Status: She is alert and oriented to person, place, and time. .1. Hemarthrosis of left knee (M25.062) 2. Chronic pain of left knee (M25.562) 3. Effusion of left knee (M25.462) - Recent MRI revealed significant arthritis under the patella with fragments causing hemarthrosis. - Hemarthrosis and effusion noted; 5 cc of blood aspirated previously. - No signs of infection; multiple blood tests performed during recent hospitalization. - Pain managed with Tylenol and oxycodone as needed. - Advised use of compression with SANTOS wrap or sleeve if comfortable, along with elevation and icing to reduce swelling and pain. - Follow-up appointment with orthopedic PA scheduled for tomorrow. Sanjay Yates APRN.CNS Medical Decision Making: Problems: Moderate: 1+ chronic illnesses with change Data: Unique source(s) for external note(s) reviewed: 1 Unique test result(s) reviewed: 1 Medical Decision Making Level: 3 - LowWestern [facility]05-29-[facility]25 History of Present illness Narrative* Sanjay Yates APRN.OPERATOR HELPER - 08/31/2024 3:32 PM EDT Subjective Patient ID: Tristian is a 68 year old female who presents for Hospital F/U. HPI Presents today for hospital follow-up visit. She was seen at [facility] August 23 through August 24, 2024. She presented with left knee pain left knee osteoarthritis. Notes indicate osteoarthritis of the left knee with hemiarthrosis. She presented with swelling and pain in the left knee, no trauma. CT of the knee was performed, there was noted to be a moderate left knee joint effusion with mixed density contents consistent with hemarthrosis versus septic arthritis. There were noted molly intra-articular loose bodies adjacent to the lateral pole of the patella. Mild to moderate osteoarthritis of the knee was noted. The left knee was aspirated in the emergency room, 5 cc of bloody fluid was removed. Due to concern for septic arthritis she was admitted to the PCU and started on IV antibiotics. She was seen by PT OT and orthopedic surgery. MRI was performed and according to the orthopedic surgeon there was no evidence of any fracture or tearing of the meniscus. Orthopedic surgery recommended antibiotics be stopped and she could be sent home with weightbearing as tolerated. Right Knee Pain and Swelling: - Severe pain and swelling in the right knee, described as awful. - Noted a big lump on the knee. - Recent aspiration by a physician yielded 5 cc of blood; no infection suspected. - MRI revealed significant arthritis under the patella with fragments breaking off. - Scheduled to see an orthopedic PA tomorrow. - Taking Tylenol for pain; has oxycodone but uses it sparingly. - Using ice for swelling; has an SANTOS bandage but not consistently using compression. - Has a cane, walkers, and a rollator at home but not currently using them. Viral Infection: - Persistent low-grade fever since a viral infection on July 06. - Multiple tests performed, all negative. - Medical Laboratory Specialist consulted due to abnormal EKGs; noted a tilt in the heart. Weight Management: - Previously walked a mile a day to maintain weight. - Inquired about medication for weight loss, specifically to lose 22 lbs. - Engaging in chair yoga and upper body exercises. ROS Constitutional: (+) fever Musculoskeletal: (+) knee pain, (+) knee swelling Objective BP 113/71 Pulse 91 Temp 37.2 C (99 F) Resp 16 Wt 79.2 kg (174 lb 9.7 oz) LMP 10/02/2007 BMI 27.35 kg/m Physical Exam Vitals and nursing note reviewed. Constitutional: Appearance: Normal appearance. HENT: Head: Normocephalic and atraumatic. Eyes: Conjunctiva/sclera: Conjunctivae normal. Cardiovascular: Rate and Rhythm: Normal rate. Pulmonary: Effort: Pulmonary effort is normal. Musculoskeletal: Left knee: Bony tenderness present. Decreased range of motion. Tenderness present. Right lower leg: No edema. Left lower leg: Swelling present. No edema. Comments: ecchymosis and effusion left knee Skin: General: Skin is warm and dry. Neurological: General: No focal deficit present. Mental Status: She is alert and oriented to person, place, and time. .1. Hemarthrosis of left knee (M25.062) 2. Chronic pain of left knee (M25.562) 3. Effusion of left knee (M25.462) - Recent MRI revealed significant arthritis under the patella with fragments causing hemarthrosis. - Hemarthrosis and effusion noted; 5 cc of blood aspirated previously. - No signs of infection; multiple blood tests performed during recent hospitalization. - Pain managed with Tylenol and oxycodone as needed. - Advised use of compression with SANTOS wrap or sleeve if comfortable, along with elevation and icingto reduce swelling and pain. - Follow-up appointment with orthopedic PA scheduled for tomorrow. Sanjay Yates APRN.OPERATOR HELPER Medical Decision Making: Problems: Moderate: 1+ chronic illnesses with change Data: Unique source(s) for external note(s) reviewed: 1 Unique test result(s) reviewed: 1 Medical Decision Making Level: 3 - Low documented in this encounter[facility]05[facility]25 [facility] Medical Records Department [address] [place] [address] [place] [address] Discharge Summary 08/25/24 0752 MR#: [id number] Acct: [id number] Name: MARTINE LANDAVERDE Rep #: [id number] : 1955 68 From: Sanjay Moe DO PCP: Dr. Eriberto Tovar MD Status:DIS IN [id number] Prov[facility] Date of Admission: 08/23/24 Date of Discharge: 08/24/24 Primary Care Physician: Dr. Eriberto Tovar MD Consultations 08/24/24 00:32 Consult: Orthopedics Routine Consulting Provider: Jose L Barrios Reason for Consult: Left Knee Pain and possible Septic Arthritis. EMERGENT Consult: No MD Notified: Yes Date Notified: 08/23/24 Time Notified: 23:38 Method of Notification: ED Physician Initiated Reason For Visit: SUSPECTED LEFT KNEE ARTHRITIS; LEFT KNEE PAIN Diagnosis Discharge Diagnosis (1) Unilateral primary osteoarthritis, left knee: Status: Acute Code(s): M17.12 - Unilateral primary osteoarthritis, left knee (2) Hemarthrosis: Status: Acute Code(s): M25.00 - Hemarthrosis, unspecified joint Plan 1. Osteoarthritis of the left knee with hemarthrosis #2 hyperlipidemia-patient is on a statin #3 chronic depression-patient is on Effexor #4 neuropathy-patient is on gabapentin Septic left knee joint was ruled out Total clinical time spent by myself addressing the patient's medical issues, reviewing all of her data, and collaborating with patient's care team: 35 minutes Medications at Discharge Home Medications diclofenac sodium 100 mg tablet,extended release 24 hr 75 mg PO BID NSAID 11/19/16 venlafaxine 150 mg tablet,extended release 24 hr 150 mg PO BID Antidepressant 11/19/16 antiarthritic combination no.2 900 mg tablet (glucosamine-chondroitin) 900 mg PO BID Antiarthritis 12/02/20 cholecalciferol (vitamin D3) 50 mcg (2,000 unit) capsule 50 mcg PO DAILY Supplement 12/02/20 ferrous gluconate 324 mg (37.5 mg iron) tablet 324 mg PO DAILY Iron Supplement 12/02/20 fluticasone propionate 50 mcg/actuation nasal spray,suspension (Flonase Allergy Relief) 1 spray intranasal DAILY Allergies 12/02/20 folic acid 400 mcg tablet 0.4 mg PO DAILY Supplement 12/02/20 gabapentin 400 mg capsule 400 mg PO 4X/DAY Neuropathy 12/02/20 magnesium citrate 100 mg capsule 100 mg PO DAILY Supplement 12/02/20 melatonin 10 mg capsule 10 mg PO QHS PRN PRN sleep 12/02/20 vitamin E mixed 400 unit capsule 400 unit PO DAILY Supplement 12/02/20 lisinopril 10 mg tablet 10 mg PO DAILY Blood pressure 08/13/21 calcium carbonate 600 mg PO QHS Supplement 09/24/23 clobetasol 0.05 % topical ointment 1 applic topical .weekly swelling 09/24/23 rosuvastatin 5 mg tablet 5 mg PO QHS Cholesterol pill 09/24/23 turmeric 400 mg capsule 400 mg PO DAILY Supplement 09/24/23 ascorbic acid (vitamin C) 1,000 mg tablet,extended release (C Complex) 1,000 mg PO DAILY Supplement 06/21/24 aspirin 81 mg capsule 81 mg PO DAILY Antiplatelet 06/21/24 hydrocodone-acetaminophen 5-325mg 5mg-325mg 1 tab PO Q6H PRN pain 5 days #20 tabs 08/24/24 Hospital Course Operations None Procedures None Summary of Care Provided Minutes Spent on Discharge: 31 Hospital Course: This 68-year-old white female was seen in the emergency room at [facility] with complaints of swelling and pain in her left knee. Patient denied any trauma. CT was performed, there was noted to be a moderate left knee joint effusion with mixed density contents which could represent hemarthrosis, it was read out as possibly indicating also septic arthritis. There is also noted to be intra-articular loose bodies adjacent to the lateral pole of the patella. There was also noted to be mild to moderate osteoarthritis of the knee. The left knee was aspirated in the emergency room-5 to cc of bloody fluid was removed. There was concerns of septic arthritis and so the patient was admitted to PCU and started on IV antibiotics. She was seen by PT and OT and ultimately she was seen by orthopedic surgery. MRI was performed and according to orthopedic surgery, there was no evidence of any fracture or tearing of the meniscus noted. Orthopedic surgery recommended antibiotics be stopped and the patient could be sent home with weightbearing as tolerated. On the evening of 08/24/2024, patient requested to be discharged home: On examination she appeared in good health and spirits, she does not appear to be in any distress. Vital signs as documented. Skin warm and dry and without overt rashes. Neck without JVD, thyroid appears normal, trachea is midline, neck is supple. Lungs clear, normal air movement was noted. Heart exam notable for regular rhythm, normal sounds and absence of murmurs, rubs or gallops. Abdomen unremarkable and without evidence of organomegaly, masses, or abdominal aortic enlargement, bowel sounds are present in all 4 quadrants, no abdominal tenderness was noted. E (more content not included)...[facility]05-09-2025 Progress note* Result Encounter Note - Sanjay Yates APRN.CNS - 08/11/2024 10:02 AM EDT no fungus at 21 dys [facility]05-09-2025 Miscellaneous Notes* Result Encounter Note - Sanjay Yates APRN.CNS - 08/11/2024 10:02 AM EDT no fungus at 21 dys * Result Encounter Note - Sanjay Yates APRN.CNS - 07/28/2024 7:36 AM EDT negative * Result Encounter Note - aSnjay Yates APRN.CNS - 07/25/2024 4:20 PM EDT Insignificant colony count. OV July 25, 2024 * Result Encounter Note - Sanjay Yates APRN.CNS - 07/21/2024 3:37 PM EDT EDDIE, ESR, CRP rheumatoid factor within normal limits. No concerning findings on urine culture. Negative fungal sputum culture * Result Encounter Note - Sanjay Yates APRN.CNS - 07/21/2024 9:35 AM EDT normal ESR * Result Encounter Note - Sanjay Yates APRN.CNS - 07/21/2024 9:34 AM EDT mixed kp, no PMN documented in this encounterSalem [facility]04-25-2025 Progress note* Result Encounter Note - Sanjay Yates APRN.CNS - 07/28/2024 7:36 AM EDT negative [facility]04-22-2025 Instructions* Patient Instructions* Eriberto Tovar MD - 07/25/2024 7:47 PM EDT Use the Atrovent nasal spray as instructed--start with 2 sprays in each nostril twice a day; if needed, you may increase the use up to 3-4 times daily to help with nasal congestion. Continue using your Flonase nasal spray; you may use both sprays concurrently (Flonase helps with inflammation while Atrovent works as a decongestant). Keep taking your daily iron supplement with vitamin C to help improve your iron stores, and try to incorporate more iron-rich foods into your diet. Take Tylenol as needed to reduce your headache and low-grade fever. Pace your activities--on days when you feel more energetic, cut back on your usual routine to avoidoverexertion and prolonged fatigue. Stay well hydrated, maintain your calorie intake, and use saline nasal spray if your nasal passagesfeel too dry. Attend your scheduled stress test with Dr. Peacock on the as planned. Monitor your symptoms; if you experience new or worsening shortness of breath with activity or signs of a sinus infection (such as increased facial pain or dental discomfort), please contact our office. documented in this encounterSalem [facility] Center04-22-2025 NoteHNO ID: [id number] Author: ERIBERTO TOVAR MD Service: ? Author Type: Physician Type: Progress Notes Filed: 08/08/2024 01:35 Note Text: This note was created using [employer]riter. Subjective Martine Landaverde is a 68 year old female. Patient presents with: Recheck Tristian is a 68-year-old female with a history of chronic fatigue syndrome and fibromyalgia, presenting for follow-up after experiencing flu-like symptoms on July 20. Tristian reports persistent cephalalgia and low-grade fevers since July 06, following an initial presentation of flu-like symptoms on July 20. She notes that her fevers, previously reaching 101.4?F, have decreased to below 100?F, but she continues to feel wiped out and struggles to function normally. Her baseline temperature is 97.4?F, making any fever surprising to her. She denies cough, sinus pain or pressure, and ear pain or pressure, but mentions that her head hurts, particularly in the ear, though not like sinus pain. She also reports feeling too hot all the time, a significant change from her usual state. Tristian has been taking iron and vitamin C daily to address low iron stores, which she notes have been a chronic issue. She denies any other symptoms and is awaiting a stress test on the to clear her for a knee replacement surgery that was postponed due to her illness. She has been using Atrovent nasal spray as prescribed but is unsure if she should continue using Flonase. She also reports dry mouth, particularly at night, despite using a CPAP machine with a full mask and humidifier. PAST MEDICAL HISTORY Diagnosis Date Chronic fatigue syndrome Depression Dyspareunia 05/23/2012 Generalized anxiety disorder Hx of colonoscopy 01/27/2024 PER LIP NEEDS MAC AND ADULT SCOPE Mitral valve disorders(424.0) Myalgia and myositis, unspecified Obstructive sleep apnea Not treating because of cost Other kyphoscoliosis and scoliosis SPURS/VERTEBRAE Other specified iron deficiency anemias Unspecified sleep apnea Current Outpatient Medications Medication Sig Ipratropium [place] (ATROVENT) 21 mcg (0.03 %) nasal spray Use 2 sprays in the nose every 12 hours. as needed for nasal congestion venlafaxine ER (EFFEXOR XR) 150 mg 24 hr capsule Take 1 capsule by mouth two times a day. traZODone (DESYREL) 50 mg tablet Take 0.5-1 tablets by mouth daily at bedtime. gabapentin (NEURONTIN) 400 mg capsule Take 1 capsule by mouth four times daily for 180 days. as directed diclofenac, EC, (VOLTAREN) 75 mg EC tablet Take 1 tablet by mouth two times a day. For pain/inflammation. Take with food. rosuvastatin (CRESTOR) 5 mg tablet Take 1 tablet by mouth daily at bedtime. lisinopril (PRINIVIL) 10 mg tablet Take 1 tablet by mouth once daily. clobetasol (TEMOVATE) 0.05 % ointment Apply 1 application to affected area two times a week. TURMERIC ORAL Take 500 mg by mouth once daily. Turmeric 500mg and black pepper 5mg Zinc Gluconate 100 mg tab Take 2 tablets by mouth once daily. COQ10, UBIQUINOL, ORAL Take 1 tablet by mouth once daily. FERROUS SULFATE ORAL Take 365 mg by mouth once daily. L.acid/L.casei/B.bif/B.jose/FOS (PROBIOTIC BLEND ORAL) Take 175 mg by mouth once daily. aspirin 81 mg cap Take 81 mg by mouth once daily. traMADol (ULTRAM) 50 mg tablet Take 50 mg by mouth two times a day as needed. CPAP Initiate CPAP @ 9 cm of water with humidification. Mask (per patient preference) optional chin strap (if indicated) , filters, tubing, humidifier and lifetime supplies. CPAP CHIN STRAP, USED WITH CPAP DEVICE glucosam sul na/chondr galvan a na(GLUCOSAMINE-CHONDROITIN 3X 750 MG-600 MG TAB) Take 1 tablet twice daily. MAGNESIUM OXIDE 500 MG TAB Take 250 mg by mouth once daily. MELATONIN 3 MG TAB Take 10 mg by mouth. nightly cholecalciferol(VITAMIN D-3 1,000 UNIT CHEWABLE TAB) Take 2 tablets daily. methylsulfonylmethane(MSM 1,000 MG TAB) 1 tablet twice daily. vitamin b complex(B COMPLEX TAB) Take by mouth. VITAMIN E 400 UNIT CAP Take one(1) tablet daily. CALCIUM 600 + D(3) 600 MG-200 UNIT TAB Take one(1) tablet twice daily. MULTIVITAMIN TAB Take one(1) tablet daily. predniSONE (DELTASONE) 10 mg tablet Take 4 tabs daily for 3 days, then 2 tabs daily for 3 days, then 1 tab daily for 3 days with food. (Patient not taking: Reported on 07/20/2024) fluticasone (FLONASE) 50 mcg/actuation nasal spray Use 2 Sprays in each nostril once daily. (Patient not taking: Reported on 07/25/2024) No current facility-administered medications for this visit. Review of Systems Objective BP 112/67 Pulse 90 Temp 37.7 ?C (99.9 ?F) (Oral) Resp 16 Ht 170.2 cm (5' 7) Wt 77.8 kg (171 lb 8.3 oz) LMP 10/02/2007 SpO2 96% BMI 26.86 kg/m? Physical Exam Constitutional: Appearance: Normal appearance. HENT: Head: Normocephalic. Eyes: Conjunctiva/sclera: Conjunctivae normal. Cardiovascular: Rate and Rhythm: Normal rate and regular rhythm. Heart evin (more content not included)...[facility]04-22-2025 History of Present illness Narrative* Eriberto Tovar MD - 07/25/2024 7:25 PM EDT This note was created using NoteWriter. Subjective Martine Landaverde is a 68 year old female. Patient presents with: Recheck Tristian is a 68-year-old female with a history of chronic fatigue syndrome and fibromyalgia, presenting for follow-up after experiencing flu-like symptoms on July 20. Tristian reports persistent cephalalgia and low-grade fevers since July 06, following an initial presentation of flu-like symptoms on July 20. She notes that her fevers, previously reaching 101.4 F,have decreased to below 100 F, but she continues to feel wiped out and struggles to function normally. Her baseline temperature is 97.4 F, making any fever surprising to her. She denies cough, sinus pain or pressure, and ear pain or pressure, but mentions that her head hurts, particularly in the ear, though not like sinus pain. She also reports feeling too hot all the time, a significant change from her usual state. Tristian has been taking iron and vitamin C daily to address low iron stores, which she notes have kendrick chronic issue. She denies any other symptoms and is awaiting a stress test on the to clear her for a knee replacement surgery that was postponed due to her illness. She has been using Atroventnasal spray as prescribed but is unsure if she should continue using Flonase. She also reports dry mouth, particularly at night, despite using a CPAP machine with a full mask and humidifier. PAST MEDICAL HISTORY Diagnosis Date Chronic fatigue syndrome Depression Dyspareunia 05/23/2012 Generalized anxiety disorder Hx of colonoscopy 01/27/2024 PER LIP NEEDS MAC AND ADULT SCOPE Mitral valve disorders(424.0) Myalgia and myositis, unspecified Obstructive sleep apnea Not treating because of cost Other kyphoscoliosis and scoliosis SPURS/VERTEBRAE Other specified iron deficiency anemias Unspecified sleep apnea Current Outpatient Medications Medication Sig Ipratropium [place] (ATROVENT) 21 mcg (0.03 %) nasal spray Use 2 sprays in the nose every 12 hours.as needed for nasal congestion venlafaxine ER (EFFEXOR XR) 150 mg 24 hr capsule Take 1 capsule by mouth two times a day. traZODone (DESYREL) 50 mg tablet Take 0.5-1 tablets by mouth daily at bedtime. gabapentin (NEURONTIN) 400 mg capsule Take 1 capsule by mouth four times daily for 180 days. as directed diclofenac, EC, (VOLTAREN) 75 mg EC tablet Take 1 tablet by mouth two times a day. For pain/inflammation. Take with food. rosuvastatin (CRESTOR) 5 mg tablet Take 1 tablet by mouth daily at bedtime. lisinopril (PRINIVIL) 10 mg tablet Take 1 tablet by mouth once daily. clobetasol (TEMOVATE) 0.05 % ointment Apply 1 application to affected area two times a week. TURMERIC ORAL Take 500 mg by mouth once daily. Turmeric 500mg and black pepper 5mg Zinc Gluconate 100 mg tab Take 2 tablets by mouth once daily. COQ10, UBIQUINOL, ORAL Take 1 tablet by mouth once daily. FERROUS SULFATE ORAL Take 365 mg by mouth once daily. L.acid/L.casei/B.bif/B.jose/FOS (PROBIOTIC BLEND ORAL) Take 175 mg by mouth once daily. aspirin 81 mg cap Take 81 mg by mouth once daily. traMADol (ULTRAM) 50 mg tablet Take 50 mg by mouth two times a day as needed. CPAP Initiate CPAP @ 9 cm of water with humidification. Mask (per patient preference) optional chinstrap (if indicated) , filters, tubing, humidifier and lifetime supplies. CPAP CHIN STRAP, USED WITH CPAP DEVICE glucosam sul na/chondr galvan a na(GLUCOSAMINE-CHONDROITIN 3X 750 MG-600 MG TAB) Take 1 tablet twice daily. MAGNESIUM OXIDE 500 MG TAB Take 250 mg by mouth once daily. MELATONIN 3 MG TAB Take 10 mg by mouth. nightly cholecalciferol(VITAMIN D-3 1,000 UNIT CHEWABLE TAB) Take 2 tablets daily. methylsulfonylmethane(MSM 1,000 MG TAB) 1 tablet twice daily. vitamin b complex(B COMPLEX TAB) Take by mouth. VITAMIN E 400 UNIT CAP Take one(1) tablet daily. CALCIUM 600 + D(3) 600 MG-200 UNIT TAB Take one(1) tablet twice daily. MULTIVITAMIN TAB Take one(1) tablet daily. predniSONE (DELTASONE) 10 mg tablet Take 4 tabs daily for 3 days, then 2 tabs daily for 3 days, then 1 tab daily for 3 days with food. (Patient not taking: Reported on 07/20/2024) fluticasone (FLONASE) 50 mcg/actuation nasal spray Use 2 Sprays in each nostril once daily. (Patient not taking: Reported on 07/25/2024) No current facility-administered medications for this visit. Review of Systems Objective BP 112/67 Pulse 90 Temp 37.7 C (99.9 F) (Oral) Resp 16 Ht 170.2 cm (5' 7) Wt 77.8 kg (171 lb 8.3 oz) LMP 10/02/2007 SpO2 96% BMI 26.86 kg/m Physical Exam Constitutional: Appearance: Normal appearance. HENT: Head: Normocephalic. Eyes: Conjunctiva/sclera: Conjunctivae normal. Cardiovascular: Rate and Rhythm: Normal rate and regular rhythm. Heart sounds: Normal heart sounds. Pulmonary: Effort: Pulmonary effort is normal. Breath sounds: Normal breath sounds. Musculoskeletal: Right lower leg: No edema. Left lower leg: No edema. Skin: General: Skin is warm and dry. Neurological: General: No focal deficit present. Mental Status: She is alert and oriented to person, place, and time. Psychiatric: Mood and Affect: Mood normal. Behavior: Behavior normal. Thought Content: Thought content normal. Judgment: Judgment normal. 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 - Recent labs: Negative for COVID-19, influenza A/B, and RSV. Urinalysis showed low specific gravity and trace hematuria, but no leukocytes or nitrites. Rheumatoid factor, EDDIE, CRP, and ESR were negative. Fungal culture was insignificant. Metabolic panel was normal. CBC showed normal WBC count. - Advised supportive care: adequate rest, hydration, and nutrition. - Educated on the potential duration of viral symptoms, which can last 2-3 months. - Monitor for any new symptoms such as shortness of breath or chest pain. # Iron deficiency anemia, unspecified iron deficiency anemia type (D50.9) - Hemoglobin at 11.8 g/dL; iron stores still low. - Patient is taking oral iron supplements and vitamin C daily. - Discussed the possibility of an iron infusion if ferritin levels remain low. - Encouraged dietary intake of iron-rich foods. # Fibromyalgia (M79.7) - Chronic condition; no acute changes reported. - Continue current management. Eriberto Tovar MD Recording using [email or web address] software for draft documentation of the visit was discussed with the patient/authorized food products sales representative; all questions welcomed and answered. Patient/authorized food products sales representative agreed to proceed documented in this encounterSal[facility]04-22-2025 Progress note* Result Encounter Note - Sanjay Yates APRN.CNS - 07/25/2024 4:20 PM EDT Insignificant colony count. OV July 25, 2024 [facility]04-18-20[facility] Progress note* Result Encounter Note - Sanjay Yates APRN.CNS - 07/21/2024 3:37 PM EDT EDDIE, ESR, CRP rheumatoid factor within normal limits. No concerning findings on urine culture. Negative fungal sputum culture [facility]04-18-20[facility] Progress note* Result Encounter Note - Sanjay Yates APRN.CNS - 07/21/2024 9:35 AM EDT normal ESR [facility]04-18-20[facility] Progress note* Result Encounter Note - Sanjay Yates APRN.CNS - 07/21/2024 9:34 AM EDT mixed kp, no PMN [facility]04-17-2025 Instructions* Patient Instructions* Sanjay Yates APRN.CNS - 07/20/2024 3:04 PM EDT Your urine sample will be collected today in the clinic for a repeat urinalysis. If you can produce mucus with a cough today, a sputum sample will be collected to check for infection. Begin using the new nasal spray - use 1 puff in each nostril twice a day to help relieve nasal congestion. Please return next week for a follow-up visit with Dr. Tovar as scheduled. documented in this encounterSalem [facility] Center04-17-2025 NoteHNO ID: [id number] Author: SANJAY YATES APRN.BALWINDER Service: ? Author Type: Nurse Specialist Type: Progress Notes Filed: 07/21/2024 09:33 Note Text: Subjective Patient ID: Tristian is a 68 year old female who presents for Follow Up. HPI Presents today for recheck. Initially seen for flulike symptoms. Notes persistent headache fatigue and fever since last seen. She notes feeling somewhat improved but not back to baseline.She reports intermittent fevers / feeling over heated or 6 months or more. Fever: - Persistent fever with temperatures ranging from 99?F to 101?F. - Fevers have been lower in the past two days compared to previous days. - Denies cough. - Recent chest X-ray showed no abnormalities. - Recent lab work, including CBC and CMP, showed no significant abnormalities. - Recent urinalysis showed ketones present. - Recent Susana-Jay panel showed past infection but no current infection. - Denies exposure to birds or other pets in the home. Headache: - Describes headache as like a cap all around the head. - More severe and different from usual headaches; unable to ignore the pain. - Taking Tylenol and using an ice cap for relief. - History of multiple types of headaches following a fall down basement steps in 1993. - Currently taking diclofenac BID. Nasal Congestion: - Chronic nasal congestion, worse when lying down. - Using Flonase at night with minimal relief. - Denies rhinorrhea. - Wakes up with dry mouth despite using a CPAP mask. Family History: - Family history of rheumatoid arthritis in two cousins on mother's side. - Mother had osteoarthritis and heart disease. - Grandfather and great-grandfather had arthritis. Constitutional: (+) fever, (+) fatigue, (+) hot flashes Head: (+) headache Ears/Nose/Mouth/Throat: (+) congestion, (+) xerostomia Respiratory: (-) cough Gastrointestinal: (-) decreased appetite Genitourinary: (-) dysuria, (-) urinary frequency, (-) urinary urgency Musculoskeletal: (+) myalgia Objective BP 104/65 Pulse 83 Temp 37.6 ?C (99.7 ?F) Resp 16 Wt 76 kg (167 lb 8.8 oz) LMP 10/02/2007 BMI 26.64 kg/m? Physical Exam Vitals and nursing note reviewed. Constitutional: Appearance: Normal appearance. HENT: Head: Normocephalic and atraumatic. Nose: Mucosal edema present. No rhinorrhea. Mouth/Throat: Lips: Burna. Mouth: Mucous membranes are moist. Pharynx: Oropharynx is clear. Neck: Thyroid: No thyromegaly. Cardiovascular: Rate and Rhythm: Normal rate and regular rhythm. Heart sounds: Normal heart sounds. Pulmonary: Effort: Pulmonary effort is normal. Breath sounds: Normal breath sounds. Lymphadenopathy: Cervical: Right cervical: No superficial cervical adenopathy. Left cervical: No superficial cervical adenopathy. Neurological: Mental Status: She is alert. 1. Flu-like symptoms (R68.89) 2. Acute upper respiratory infection, unspecified (J06.9) 3. Fever, unspecified fever cause (R50.9) - Symptoms include headache, fever, and nasal congestion; no cough or sputum production. - Fever has decreased but persists, with temperatures ranging from 99.7?F to 101.4?F. - Headache is more severe than usual and not alleviated by Tylenol or ice cap. - Nasal congestion is chronic and worsens when supine; currently using Flonase at night. - Physical exam reveals swollen nasal passages. - Recent lab work includes a normal chest X-ray, CBC, and metabolic panel. - Susana-Jay virus panel indicates past infection but no current infection. - Urinalysis showed ketones, likely due to decreased oral intake. - Ordered repeat urinalysis. Would julio to complete labs and sputum culture now rther than wait to see if continues to improve the next few days. - Prescribed nasal spray, 1 puff in each nostril twice daily, sent to [facility]. - Discussed the possibility of rheumatology or infectious disease referral if fever persists. - Follow-up appointment scheduled with Dr. Tovar next week. 4. Family history of rheumatoid arthritis (Z82.61) - Family history includes two cousins with rheumatoid arthritis. - Discussed the potential for rheumatology referral if symptoms persist. Other orders Ipratropium [place] (ATROVENT) 21 mcg (0.03 %) nasal spray; Use 2 sprays in the nose every 12 hours. as needed for nasal congestion Medical Decision Making: Problems: Low: Acute, uncomplicated illness or injury Data: Unique test(s) ordered: 3+ Risk: Moderate: Drug management Medical Decision Making Level: 4 - [facility] History of Present illness Narrative* Sanjay Yates, CARLOS.OPERATOR HELPER - 07/20/2024 3:03 PM EDT Subjective Patient ID: Tristian is a 68 year old female who presents for Follow Up. HPI Presents today for recheck. Initially seen for flulike symptoms. Notes persistent headache fatigue and fever since last seen. She notes feeling somewhat improved but not back to baseline.She reports intermittent fevers / feeling over heated or 6 months or more. Fever: - Persistent fever with temperatures ranging from 99 F to 101 F. - Fevers have been lower in the past two days compared to previous days. - Denies cough. - Recent chest X-ray showed no abnormalities. - Recent lab work, including CBC and CMP, showed no significant abnormalities. - Recent urinalysis showed ketones present. - Recent Susana-Jay panel showed past infection but no current infection. - Denies exposure to birds or other pets in the home. Headache: - Describes headache as like a cap all around the head. - More severe and different from usual headaches; unable to ignore the pain. - Taking Tylenol and using an ice cap for relief. - History of multiple types of headaches following a fall down basement steps in 1993. - Currently taking diclofenac BID. Nasal Congestion: - Chronic nasal congestion, worse when lying down. - Using Flonase at night with minimal relief. - Denies rhinorrhea. - Wakes up with dry mouth despite using a CPAP mask. Family History: - Family history of rheumatoid arthritis in two cousins on mother's side. - Mother had osteoarthritis and heart disease. - Grandfather and great-grandfather had arthritis. Constitutional: (+) fever, (+) fatigue, (+) hot flashes Head: (+) headache Ears/Nose/Mouth/Throat: (+) congestion, (+) xerostomia Respiratory: (-) cough Gastrointestinal: (-) decreased appetite Genitourinary: (-) dysuria, (-) urinary frequency, (-) urinary urgency Musculoskeletal: (+) myalgia Objective BP 104/65 Pulse 83 Temp 37.6 C (99.7 F) Resp 16 Wt 76 kg (167 lb 8.8 oz) LMP 10/02/2007 BMI 26.64 kg/m Physical Exam Vitals and nursing note reviewed. Constitutional: Appearance: Normal appearance. HENT: Head: Normocephalic and atraumatic. Nose: Mucosal edema present. No rhinorrhea. Mouth/Throat: Lips: Burna. Mouth: Mucous membranes are moist. Pharynx: Oropharynx is clear. Neck: Thyroid: No thyromegaly. Cardiovascular: Rate and Rhythm: Normal rate and regular rhythm. Heart sounds: Normal heart sounds. Pulmonary: Effort: Pulmonary effort is normal. Breath sounds: Normal breath sounds. Lymphadenopathy: Cervical: Right cervical: No superficial cervical adenopathy. Left cervical: No superficial cervical adenopathy. Neurological: Mental Status: She is alert. 1. Flu-like symptoms (R68.89) 2. Acute upper respiratory infection, unspecified (J06.9) 3. Fever, unspecified fever cause (R50.9) - Symptoms include headache, fever, and nasal congestion; no cough or sputum production. - Fever has decreased but persists, with temperatures ranging from 99.7 F to 101.4 F. - Headache is more severe than usual and not alleviated by Tylenol or ice cap. - Nasal congestion is chronic and worsens when supine; currently using Flonase at night. - Physical exam reveals swollen nasal passages. - Recent lab work includes a normal chest X-ray, CBC, and metabolic panel. - Susana-Jay virus panel indicates past infection but no current infection. - Urinalysis showed ketones, likely due to decreased oral intake. - Ordered repeat urinalysis. Would julio to complete labs and sputum culture now rther than wait to see if continues to improve the next few days. - Prescribed nasal spray, 1 puff in each nostril twice daily, sent to [facility]. - Discussed the possibility of rheumatology or infectious disease referral if fever persists. - Follow-up appointment scheduled with Dr. Tovar next week. 4. Family history of rheumatoid arthritis (Z82.61) - Family history includes two cousins with rheumatoid arthritis. - Discussed the potential for rheumatology referral if symptoms persist. Other orders Ipratropium [place] (ATROVENT) 21 mcg (0.03 %) nasal spray; Use 2 sprays in the nose every 12 hours. as needed for nasal congestion Medical Decision Making: Problems: Low: Acute, uncomplicated illness or injury Data: Unique test(s) ordered: 3+ Risk: Moderate: Drug management Medical Decision Making Level: 4 - Moderate documented [facility] History of Present illness Narrative* Ashley Pack RT(R) - 07/19/2024 11:50 AM EDT Radiology Service Progress Note PATIENT NAME: Martine Landaverde DATE OF SERVICE: July 19, 2024 TIME: 2:27 PM PATIENT IDENTITY VERIFICATION COMPLETED USING TWO (2) IDENTIFIERS: Name and Date of confirmedby patient verbally. FALL SCREENING: Has the patient had 2 falls in the last year or 1 fall with injury or currently using an Ambulatory Assistive Device (Walker, Cane, Wheelchair, Crutches, etc.)? No PATIENT GENDER DATA: Assigned female at . status: : No status:NO. PATIENT RELEVANT IMPLANT DATA REVIEWED: Not Applicable PATIENT PRESENTS WITH AN IMPLANTABLE OR ATTACHED EXECUTIVE SEARCH CONSULTANT: No RADIOLOGY DEPARTMENT: General X-ray: Exam(s) Completed: Chest X-Ray PERIPHERAL IV DATA: Not applicable SIGNED BY: RT Charleen(Dionne) July 19, 2024 2:27 PM documented in this encounterSalem [facility]04-16-2025 NoteHNO ID: [id number] Author: ASHLEY PACK RT(Dionne) Service: ? Author Type: Technologist Type: Progress Notes Filed: 07/19/2024 14:28 Note Text: Radiology Service Progress Note PATIENT NAME: Martine Landaverde DATE OF SERVICE: July 19, 2024 TIME: 2:27 PM PATIENT IDENTITY VERIFICATION COMPLETED USING TWO (2) IDENTIFIERS: Name and Date of confirmed by patient verbally. FALL SCREENING: Has the patient had 2 falls in the last year or 1 fall with injury or currently using an Ambulatory Assistive Device (Walker, Cane, Wheelchair, Crutches, etc.)? No PATIENT GENDER DATA: Assigned female at . status: : No status: NO. PATIENT RELEVANT IMPLANT DATA REVIEWED: Not Applicable PATIENT PRESENTS WITH AN IMPLANTABLE OR ATTACHED EXECUTIVE SEARCH CONSULTANT: No RADIOLOGY DEPARTMENT: General X-ray: Exam(s) Completed: Chest X-Ray PERIPHERAL IV DATA: Not applicable SIGNED BY: RT Charleen(R) July 19, 2024 2:27 [facility]04-15-2025 Telephone encounter Note* Telephone Encounter - Sanjay Yates APRN.CNS - 07/18/2024 1:16 PM EDT Reports ongoing fever and fatigue, ordered lab work including EBV panel, CBC CMP chest x-ray,urinalysis. Endorse recheck in office. If unrevealing for cause consider rheumatology o infectious disease for FUO. [facility]04-15-2025 Miscellaneous Notes* Telephone Encounter - Sanjay Yates APRN.CNS - 07/18/2024 1:16 PM EDT Reports ongoing fever and fatigue, ordered lab work including EBV panel, CBC CMP chest x-ray,urinalysis. Endorse recheck in office. If unrevealing for cause consider rheumatology o infectious disease for FUO. * Telephone Encounter - Rossy Mendoza LPN - 07/18/2024 8:21 AM EDT Prescription Refill Information The patient has been identified by name and date of : Yes Caregiver verified no other encounters exist for this prescription request: Yes Caregiver confirmed with patient/requestor that no other refills are due, in the near future, with this provider at this time: Yes The last office visit in the department: 07/10/24 Does the patient have a future office visit with this provider/department: Yes 09/13/24 Requested Prescriptions Pending Prescriptions Disp Refills venlafaxine ER (EFFEXOR XR) 150 mg 24 hr capsule 180 capsule 3 Sig: Take 1 capsule by mouth two times a day. traZODone (DESYREL) 50 mg tablet 90 tablet 3 Sig: Take 0.5-1 tablets by mouth daily at bedtime. gabapentin (NEURONTIN) 400 mg capsule 360 capsule 3 Sig: Take 1 capsule by mouth four times daily for 180 days. as directed diclofenac, EC, (VOLTAREN) 75 mg EC tablet 180 tablet 3 Sig: Take 1 tablet by mouth two times a day. For pain/inflammation. Take with food. Rossy Mendoza LPN July 18, 2024 8:23 AM documented in this encounterSalem [facility]04-15-2025 Telephone encounter Note * Telephone Encounter - Rossy Mendoza LPN - 07/18/2024 8:21 AM EDT Prescription Refill Information The patient has been identified by name and date of : Yes Caregiver verified no other encounters exist for this prescription request: Yes Caregiver confirmed with patient/requestor that no other refills are due, in the near future, with this provider at this time: Yes The last office visit in the department: 07/10/24 Does the patient have a future office visit with this provider/department: Yes 09/13/24 Requested Prescriptions Pending Prescriptions Disp Refills venlafaxine ER (EFFEXOR XR) 150 mg 24 hr capsule 180 capsule 3 Sig: Take 1 capsule by mouth two times a day. traZODone (DESYREL) 50 mg tablet 90 tablet 3 Sig: Take 0.5-1 tablets by mouth daily at bedtime. gabapentin (NEURONTIN) 400 mg capsule 360 capsule 3 Sig: Take 1 capsule by mouth four times daily for 180 days. as directed diclofenac, EC, (VOLTAREN) 75 mg EC tablet 180 tablet 3 Sig: Take 1 tablet by mouth two times a day. For pain/inflammation. Take with food. Rossy Mendoza LPN July 18, 2024 8:23 AM [facility]04-08-[facility] Progress note* Result Encounter Note - Sanjay Yates APRN.CNS - 07/11/2024 7:04 AM EDT Negative [facility]04-08-2025 Miscellaneous Notes* Result Encounter Note - Sanjay Yates APRN.CNS - 07/11/2024 7:04 AM EDT Negative documented in this encounterSalem [facility] Center04-07-2025 [id number] (AGENT OF COVID-19) RNA: Not detected INFLUENZA A RNA: Not detected INFLUENZA B RNA: Not detected RESPIRATORY SYNCYTIAL VIRUS (RSV) RNA: Not detectedWestern Reserve HospitalComment on above:Performed By: #### [id number] ####[facility] LABCLIA [id number] [address]04-07-2025 Instructions* Patient Instructions* Sanjay Yates APRN.CNS - 07/10/2024 12:40 PM EDT documented in this encounterSalem [facility] Medical Center04-07-2025 History of Present illness Narrative* Sanjay Yates APRN.CNS - 07/10/2024 12:28 PM EDT SUBJECTIVE Martine B Landaverde is a 68 year old female who presents with 4 days of symptoms that are stable. Symptoms include: Fever (>=100.4F): Yes 100.3 F or Chills: Yes Cough: No Shortness of breath: No or Difficulty breathing: No Fatigue: Yes Muscle aches: Yes Headache: Yes New loss of smell or taste: No Sore throat: No Nasal congestion: No or Rhinorrhea: No Nausea: No or Vomiting: No Diarrhea: No OTC meds/remedies that patient has tried: acetaminophen. High risk category assessment Age > 60 years old Exposures: Sick contacts? No Family or close contacts with confirmed/probable COVID-19 in last 14 days? No She reports that she has never smoked. She has never used smokeless tobacco. OBJECTIVE PHYSICAL EXAM: BP 121/72 Pulse 82 Temp 36.4 C (97.5 F) (Temporal) Wt 76.9 kg (169 lb 8.5 oz) LMP 10/02/2007 SpO2 98% BMI 26.95 kg/m General appearance: tired/ill appearing, alert, cooperative, pleasant, in no acute distress Head: Normocephalic Eyes: conjunctiva/corneas normal Ears: R TM - clear with good landmarks, nl light reflex, L TM - clear with good landmarks, nl lightreflex Nose: clear rhinorrhea Oropharynx: moist without lesions, mild erythema to GPA Neck: supple and small, benign anterior cervical nodes bilaterally Heart: regular rate and rhythm, without murmur Lungs: clear to auscultation, without rales or wheeze, good air exchange ASSESSMENT/PLAN (R68.89) Flu-like symptoms (primary encounter diagnosis) (J06.9) Acute upper respiratory infection, unspecified (I10) Primary hypertension ASSESSMENT/PLAN: 1. Flu-like symptoms - ICD9: 780.99, ICD10: R68.89 (primary diagnosis) - COVID & INFLUENZA A/B & RSV PCR, ROUTINE - PREDNISONE 10 MG TABLET 2. Acute upper respiratory infection, unspecified - ICD9: 465.9, ICD10: J06.9 - Symptomatic treatment with prn analgesia - Supportive care with fluids and rest - Follow up in 3-5 days if symptoms persist or sooner if worsening of symptoms - COVID & INFLUENZA A/B & RSV PCR, ROUTINE - PREDNISONE 10 MG TABLET 3. Primary hypertension - ICD9: 401.9, ICD10: I10 - Controlled - Continue current medications - Encouraged sodium restriction, DASH or Mediterranean diet - Recommend regular aerobic exercise - LISINOPRIL 10 MG TABLET Sanjay Yates APRN.OPERATOR HELPER - Discussed symptom monitoring and supportive care - Red flag symptoms requiring follow up discussed Nirmatrelvir/Ritonavir (Paxlovid) Considerations Paxlovid is FDA-approved for treatment of mild to moderate COVID-19 in adults who are at high risk for progression to severe COVID-19. Consider use of Paxlovid in the following examples of high risk patients (list is not all inclusive): Age over 65 years Cardiovascular and cerebrovascular disease Chronic disease state (kidney, liver, lung) Diabetes (type 1 or type 2) Immunocompromised state (cancer, solid organ or blood stem cell transplant, HIV) Obesity Paxlovid warnings include serious drug interactions (co-administration with drugs highly dependent on CYP3A for clearance), hypersensitivity reactions, hepatotoxicity, and risk of HIV-1 resistance development. Sanjay Yates APRN.CNS July 10, 2024 12:42 PM Medical Decision Making: Problems: Low: Acute, uncomplicated illness or injury Data: Unique test(s) ordered: 1 Risk: Moderate: Drug management Medical Decision Making Level: 3 - Low documented in this encounterSalem [facility]04-07-2025 NoteHNO ID: [id number] Author: SANJAY YATES APRN.CNS Service: ? Author Type: Nurse Specialist Type: Progress Notes Filed: 07/10/2024 13:04 Note Text: SUBJECTIVE Martine Landaverde is a 68 year old female who presents with 4 days of symptoms that are stable. Symptoms include: Fever (>=100.4F): Yes 100.3 F or Chills: Yes Cough: No Shortness of breath: No or Difficulty breathing: No Fatigue: Yes Muscle aches: Yes Headache: Yes New loss of smell or taste: No Sore throat: No Nasal congestion: No or Rhinorrhea: No Nausea: No or Vomiting: No Diarrhea: No OTC meds/remedies that patient has tried: acetaminophen. High risk category assessment Age > 60 years old Exposures: Sick contacts? No Family or close contacts with confirmed/probable COVID-19 in last 14 days? No She reports that she has never smoked. She has never used smokeless tobacco. OBJECTIVE PHYSICAL EXAM: BP 121/72 Pulse 82 Temp 36.4 ?C (97.5 ?F) (Temporal) Wt 76.9 kg (169 lb 8.5 oz) LMP 10/02/2007 SpO2 98% BMI 26.95 kg/m? General appearance: tired/ill appearing, alert, cooperative, pleasant, in no acute distress Head: Normocephalic Eyes: conjunctiva/corneas normal Ears: R TM - clear with good landmarks, nl light reflex, L TM - clear with good landmarks, nl light reflex Nose: clear rhinorrhea Oropharynx: moist without lesions, mild erythema to GPA Neck: supple and small, benign anterior cervical nodes bilaterally Heart: regular rate and rhythm, without murmur Lungs: clear to auscultation, without rales or wheeze, good air exchange ASSESSMENT/PLAN (R68.89) Flu-like symptoms (primary encounter diagnosis) (J06.9) Acute upper respiratory infection, unspecified (I10) Primary hypertension ASSESSMENT/PLAN: 1. Flu-like symptoms - ICD9: 780.99, ICD10: R68.89 (primary diagnosis) - COVID AND INFLUENZA A/B AND RSV PCR, ROUTINE - PREDNISONE 10 MG TABLET 2. Acute upper respiratory infection, unspecified - ICD9: 465.9, ICD10: J06.9 - Symptomatic treatment with prn analgesia - Supportive care with fluids and rest - Follow up in 3-5 days if symptoms persist or sooner if worsening of symptoms - COVID AND INFLUENZA A/B AND RSV PCR, ROUTINE - PREDNISONE 10 MG TABLET 3. Primary hypertension - ICD9: 401.9, ICD10: I10 - Controlled - Continue current medications - Encouraged sodium restriction, DASH or Mediterranean diet - Recommend regular aerobic exercise - LISINOPRIL 10 MG TABLET Sanjay Yates APRN.OPERATOR HELPER - Discussed symptom monitoring and supportive care - Red flag symptoms requiring follow up discussed Nirmatrelvir/Ritonavir (Paxlovid) Considerations Paxlovid is FDA-approved for treatment of mild to moderate COVID-19 in adults who are at high risk for progression to severe COVID-19. Consider use of Paxlovid in the following examples of high risk patients (list is not all inclusive): Age over 65 years Cardiovascular and cerebrovascular disease Chronic disease state (kidney, liver, lung) Diabetes (type 1 or type 2) Immunocompromised state (cancer, solid organ or blood stem cell transplant, HIV) Obesity Paxlovid warnings include serious drug interactions (co-administration with drugs highly dependent on CYP3A for clearance), hypersensitivity reactions, hepatotoxicity, and risk of HIV-1 resistance development. Sanjay Yates APRN.CNS July 10, 2024 12:42 PM Medical Decision Making: Problems: Low: Acute, uncomplicated illness or injury Data: Unique test(s) ordered: 1 Risk: Moderate: Drug management Medical Decision Making Level: 3 - LowWestern [facility] Hospital04-03-2025 Progress note* Result Encounter Note - Sanjay Yates APRN.CNS - 07/06/2024 7:18 AM EDT Note cardiology visit scheduled, requesting TTE [facility] Work Phone: 1(261) 863-315604-03-2025 Miscellaneous Notes* Result Encounter Note - Sanjay Yates APRN.CNS - 07/06/2024 7:18 AM EDT Note cardiology visit scheduled, requesting TTE documented in this encounterSalem [facility] Center04-02-2025 Telephone encounter Note * Telephone Encounter - Rossy Mendoza LPN - 07/05/2024 2:45 PM EDT Jyotsna made aware that order has been faxed for the ECHO [facility]04-02-2025 Miscellaneous Notes* Telephone Encounter - Rossy Mendoza LPN - 07/05/2024 2:45 PM EDT Jyotsna made aware that order has been faxed for the ECHO * Telephone Encounter - Eriberto Tovar MD - 07/05/2024 2:30 PM EDT Filed order * Telephone Encounter - Karen Hendrix RN - 07/05/2024 1:33 PM EDT Jyotsna from [facility] calls and states [facility] does have a provider that is willingto see patient prior to surgery date on 07/17/2024. Medical Laboratory Specialist is asking if patient can get ECHO done prior to appointment. [facility] cannot order this testing because patient is not an es tablished with them yet. [facility] will not order testing even though they had called [facility] requesting that patient be seen and cleared prior to cardiac cardiology. Jyotsna is asking if PCP can order the testing and fax the order to [facility] scheduling and notify Jyotsna when orderis faxed. Jyotsna spoke with patient who had told her that she requested referral to be faxed over to [facility] to see which office can see her first. Please review and advise, Karen Hendrix RN documented in this encounterSalem Regional Medical Center04-02-2025 Telephone encounter Note * Telephone Encounter - Eriberto Tovar MD - 07/05/2024 2:30 PM EDT Filed order [facility]04-02-20[facility] Telephone encounter Note* Telephone Encounter - Karen Hendrix RN - 07/05/2024 1:33 PM EDT Jyotsna from [facility] calls and states [facility] does have a provider that is willingto see patient prior to surgery date on 07/17/2024. Medical Laboratory Specialist is asking if patient can get ECHO done prior to appointment. [facility] cannot order this testing because patient is not an es tablished with them yet. [facility] will not order testing [facility] that patient be seen and cleared prior to cardiac cardiology. Jyotsna is asking if PCP can order the testing and fax the order to [facility] scheduling and notify Jyotsna when orderis faxed. Jyotsna spoke with patient who had told her that she requested referral to be faxed over to [facility] to see which office can see her first. Please review and advise, Karen Hendrix RN [facility]04-02-2025 Telephone encounter Note* Telephone Encounter - Ronny Mills RN - 07/05/2024 9:38 AM EDT Faxed cardiology referral and EKG results to [facility], per patient request. [facility]: phone # [phone], [facility]04-02-2025 Miscellaneous Notes* Telephone Encounter - Ronny Mills RN - 07/05/2024 9:38 AM EDT Faxed cardiology referral and EKG results to [facility], per patient request. [facility]: phone # [phone], documented in this encounterSalem [facility] Center04-01-2025 Instructions* Patient Instructions* Sanjay Yates APRN.CNS - 07/04/2024 3:12 PM EDT Schedule an appointment with cardiology documented in this encounterSalem [facility] Center04-01-2025 NoteHNO ID: [id number] Author: YATES, SANJAY, COCOA ROOM OPERATOR.OPERATOR HELPER Service: ? Author Type: Nurse Specialist Type: Progress Notes Filed: 07/04/2024 15:59 Note Text: Subjective Patient ID: Tristian is a 68 year old female who presents for Follow Up. [facility] Martine Landaverde presents for recheck having seen Eriberto Tovar MD 06/19/2024 for preoperative clearance. She was cleared by Eriberto Tovar MD for surgery on that date, then subsequently developed a sore throat and headache July 01, 2024. Strep test was negative. She completed lab testing and EKG ordered by surgeon Dr. Barrios. EKG noted to be abnormal. Mild anemia noted. WBCs elevated. Presents today for a recheck. She has a preoperative visit scheduled with Dr. Barrios partner Evangelista Jones [facility] 07/10/2024. Abnormal EKG: - Recent EKG showed possible cardiac enlargement and prior GA. - Denies current chest pain, dyspnea, palpitations, dizziness, or edema. - Able to walk on flat surfaces without dyspnea or chest pain unlimited; unable to assess stair climbing due to knee pain. - Remote history of irregular heartbeats; previously suspected MVP. - No history of CAD, GA or CVA. Has history of SHANNON and mild anemia. - Family history of CAD and CVA in mother, maternal grandfather, and brother. - No history of pulmonary, renal, or hepatic disease. - Last stress test was over 30 years ago, with normal results. Exertion is limit by knee pain. Prior EKG at Medicare wellness visit 02/03/2021 NSR, left axis deviation. Stress echo treadmill 2011 completed for ftigue and dizziness negative for ischemia at 99%MPHR, 10.5 METS Without report of headache, chest pain, palpitations, dyspnea, peripheral edema, orthopnea, fatigue, and PND. Last 3 Encounter BP Readings: Date: BP: 07/04/2024 112/64 07/01/2024 122/80 06/22/2024 126/78 Iron Deficiency Anemia: - Chronic iron deficiency anemia; taking iron supplements with vitamin C daily. - Recent labs show hemoglobin at 11.1 g/dL. - Family history of iron deficiency anemia in father. Sore Throat: - Recent sore throat after seeing Dr. Tovar; evaluated at [facility], strep test negative. - Symptoms have resolved; no current fever or sore throat. Right TKA: - Scheduled for right TKA in 07/17/[address] Barrios. - Pre-operative labs and EKG completed. ACS NSQIP Surgical Risk Calculator 1. Age Group: 65 - 74 years 2. Sex: female 3. Functional Status: Independent 4. Emergency Case: No 5. ASA Class: Mild systemic disease 6. Steroid use for chronic condition: No 7. Ascites within 30 days prior to surgery: No 8. Systemic Sepsis within 48 hours prior to surgery: None 9. Ventilator Dependent: No 10. Disseminated Cancer: No 11. Diabetes: None 12. Hypertension requiring medication: No 13. Congestive Heart Failure in 30 days prior to surgery: No 14. Dyspnea: No 15. Current Smoker within 1 Year: No 16. History of COPD: No 17. Dialysis: No 18. Acute Renal Failure: No 19. BMI Class Calculation: Normal ROS Constitutional: (+) fatigue, (-) fever Ears/Nose/Mouth/Throat: (-) sore throat Cardiovascular: (-) chest pain, (-) palpitations, (-) leg swelling Respiratory: (-) shortness of breath Musculoskeletal: (+) right knee pain Neurological: (-) dizziness, (-) lightheadedness Labs: (Yesterday) Lab results: White Blood Cell Count: Normal Hemoglobin: 11.1 g/dL Iron: Low (Wednesday) Rapid Strep Test: Negative (Wednesday) Lab results: White Blood Cell Count: Normal Hemoglobin: 11.1 g/dL Iron: Low Tests: (Wednesday) EKG: Abnormal findings suggest possible cardiac enlargement or prior myocardial infarction Stress Test (many years ago): Normal Objective BP 112/64 Pulse 85 Resp 16 Wt 78.6 kg (173 lb 4.5 oz) LMP 10/02/2007 SpO2 96% BMI 27.55 kg/m? Physical Exam Vitals and nursing note reviewed. Constitutional: Appearance: Normal appearance. HENT: Head: Normocephalic and atraumatic. Eyes: Conjunctiva/sclera: Conjunctivae normal. Neck: Thyroid: No thyroid mass or thyromegaly. Vascular: Normal carotid pulses. No carotid bruit or JVD. Cardiovascular: Rate and Rhythm: Normal rate and regular rhythm. Pulses: Carotid pulses are 2+ on the right side and 2+ on the left side. Radial pulses are 2+ on the right side and 2+ on the left side. Heart sounds: Normal heart sounds. Pulmonary: Effort: Pulmonary effort is normal. Breath sounds: Normal breath sounds. Abdominal: General: Bowel sounds are normal. Palpations: Abdomen is soft. Musculoskeletal: Left knee: Bony tenderness present. Decreased range of motion. Skin: General: Skin is warm and dry. Neurological: General: No focal deficit present. Mental Status: She is alert and oriented to person, place, and time. 1. Preoperative clearance (Z01.818) - Scheduled for right total knee arthroplasty on the by Dr. Barrios. - Recent sore throat resolved; no fever or current symptoms. - Labs rev (more content not included)...[facility]04-01-2025 History of Present illness Narrative* Sanjay Yates APRN.OPERATOR HELPER - 07/04/2024 2:21 PM EDT Subjective Patient ID: Tristian is a 68 year old female who presents for Follow Up. [facility] Martine Landaverde presents for recheck having seen Eriberto Tovar MD 06/19/2024 for preoperative clearance. She was cleared by Eriberto Tovar MD for surgery on that date, then subsequently developed a sore throat and headache July 01, 2024. Strep test was negative. She completed lab testing and EKG ordered by surgeon Dr. Barrios. EKG noted to be abnormal. Mild anemia noted. WBCs elevated. Presents today for a recheck. She has a preoperative visit scheduled with Dr. Barrios partner Evangelista Jones [facility] 07/10/2024. Abnormal EKG: - Recent EKG showed possible cardiac enlargement and prior GA. - Denies current chest pain, dyspnea, palpitations, dizziness, or edema. - Able to walk on flat surfaces without dyspnea or chest pain unlimited; unable to assess stair climbing due to knee pain. - Remote history of irregular heartbeats; previously suspected MVP. - No history of CAD, GA or CVA. Has history of SHANNON and mild anemia. - Family history of CAD and CVA in mother, maternal grandfather, and brother. - No history of pulmonary, renal, or hepatic disease. - Last stress test was over 30 years ago, with normal results. Exertion is limit by knee pain. Prior EKG at Medicare wellness visit 02/03/2021 NSR, left axis deviation. Stress echo treadmill 2011 completed for ftigue and dizziness negative for ischemia at 99%MPHR, 10.5 METS Without report of headache, chest pain, palpitations, dyspnea, peripheral edema, orthopnea, fatigue, and PND. Last 3 Encounter BP Readings: Date: BP: 07/04/2024 112/64 07/01/2024 122/80 06/22/2024 126/78 Iron Deficiency Anemia: - Chronic iron deficiency anemia; taking iron supplements with vitamin C daily. - Recent labs show hemoglobin at 11.1 g/dL. - Family history of iron deficiency anemia in father. Sore Throat: - Recent sore throat after seeing Dr. Tovar; evaluated at [facility], strep test negative. - Symptoms have resolved; no current fever or sore throat. Right TKA: - Scheduled for right TKA in 07/17/[address] Barrios. - Pre-operative labs and EKG completed. ACS NSQIP Surgical Risk Calculator 1. Age Group: 65 - 74 years 2. Sex: female 3. Functional Status: Independent 4. Emergency Case: No 5. ASA Class: Mild systemic disease 6. Steroid use for chronic condition: No 7. Ascites within 30 days prior to surgery: No 8. Systemic Sepsis within 48 hours prior to surgery: None 9. Ventilator Dependent: No 10. Disseminated Cancer: No 11. Diabetes: None 12. Hypertension requiring medication: No 13. Congestive Heart Failure in 30 days prior to surgery: No 14. Dyspnea: No 15. Current Smoker within 1 Year: No 16. History of COPD: No 17. Dialysis: No 18. Acute Renal Failure: No 19. BMI Class Calculation: Normal ROS Constitutional: (+) fatigue, (-) fever Ears/Nose/Mouth/Throat: (-) sore throat Cardiovascular: (-) chest pain, (-) palpitations, (-) leg swelling Respiratory: (-) shortness of breath Musculoskeletal: (+) right knee pain Neurological: (-) dizziness, (-) lightheadedness Labs: (Yesterday) Lab results: White Blood Cell Count: Normal Hemoglobin: 11.1 g/dL Iron: Low (Wednesday) Rapid Strep Test: Negative (Wednesday) Lab results: White Blood Cell Count: Normal Hemoglobin: 11.1 g/dL Iron: Low Tests: (Wednesday) EKG: Abnormal findings suggest possible cardiac enlargement or prior myocardial infarction Stress Test (many years ago): Normal Objective BP 112/64 Pulse 85 Resp 16 Wt 78.6 kg (173 lb 4.5 oz) LMP 10/02/2007 SpO2 96% BMI 27.55kg/m Physical Exam Vitals and nursing note reviewed. Constitutional: Appearance: Normal appearance. HENT: Head: Normocephalic and atraumatic. Eyes: Conjunctiva/sclera: Conjunctivae normal. Neck: Thyroid: No thyroid mass or thyromegaly. Vascular: Normal carotid pulses. No carotid bruit or JVD. Cardiovascular: Rate and Rhythm: Normal rate and regular rhythm. Pulses: Carotid pulses are 2+ on the right side and 2+ on the left side. Radial pulses are 2+ on the right side and 2+ on the left side. Heart sounds: Normal heart sounds. Pulmonary: Effort: Pulmonary effort is normal. Breath sounds: Normal breath sounds. Abdominal: General: Bowel sounds are normal. Palpations: Abdomen is soft. Musculoskeletal: Left knee: Bony tenderness present. Decreased range of motion. Skin: General: Skin is warm and dry. Neurological: General: No focal deficit present. Mental Status: She is alert and oriented to person, place, and time. 1. Preoperative clearance (Z01.818) - Scheduled for right total knee arthroplasty on the by Dr. Barrios. - Recent sore throat resolved; no fever or current symptoms. - Labs reviewed: WBC count within normal range, hemoglobin stable at 11.1 g/dL. - EKG performed at the hospital showed normal rhythm but indicated possible cardiac enlargement andprior myocardial infarction. - No history of cardiovascular, pulmonary, renal, or hepatic disease. - Repeated EKG in the office today. NSR with left axis deviation relatively unchanged from previous. No current symptoms of shortness of breath or chest pain. - Referral to [facility] for cardiology evaluation and potential stress test prior to surgery. - Will complete and send preoperative paperwork to the surgeon and cardiology. Recommend a cardiology visit prior to surgery for further evaluation and recommendations. 2. Primary osteoarthritis of right knee (M17.11) - Scheduled for right total knee arthroplasty on the . - No current limitations in ambulation due to chest pain or dyspnea. 3. Leukocytosis, unspecified type (D72.829) - Recent lab work shows WBC count within normal range. 4. Abnormal EKG (R94.31) - EKG showed normal rhythm but indicated possible cardiac enlargement and prior myocardial infarction. - No current symptoms of chest pain, dyspnea, palpitations, dizziness, or edema. - Referral to [facility] for further evaluation and potential stress test. 5. Iron deficiency anemia, unspecified iron deficiency anemia type (D50.9) - Chronic condition; patient taking iron supplements with vitamin C daily. - Hemoglobin stable at 11.1 g/dL. - Continue current supplementation. Medical Decision Making: Problems: Moderate: 2+ stable chronic illnesses Data: Unique test result(s) reviewed: 2 Risk: Moderate: Moderate risk from testing/treatment Medical Decision Making Level: 4 - Moderate [facility] Telephone encounter Note * Telephone Encounter - Tristian Garcia LPN - 07/04/2024 10:50 AM EDT Mirna from [email or web address] calling requesting copy of patient latest CBC to be faxed to [phone].Printed and faxed as requested. [facility]04-01-2025 Miscellaneous Notes* Telephone Encounter - Tristian Garcia LPN - 07/04/2024 10:50 AM EDT Mirna from [email or web address] calling requesting copy of patient latest CBC to be faxed to [phone].Printed and faxed as requested. documented in this encounter[facility]03-31-[facility]25 Telephone encounter Note * Telephone Encounter - Sanjay Yates APRN.CNS - 07/03/2024 3:33 PM EDT Has OV tomorrow. EKG scanned, ordered by Dr. Barrios, abnormal EKG 06/27/2024. [facility] Work Phone: [phone] Miscellaneous Notes* Telephone Encounter - Sanjay Yates APRN.CNS - 07/03/2024 3:33 PM EDT Has OV tomorrow. EKG scanned, ordered by Dr. Barrios, abnormal EKG 06/27/2024. * Telephone Encounter - Rhea Rees RN - 07/03/2024 9:35 AM EDT In response to Dr. Tovar' note below: 1) Pre-Op Follow Up scheduled for patient, for this week with Sanjay Yates CNP 2) Pt's Pre-Op at [facility] is scheduled for 07/10/24 * Telephone Encounter - Eriberto Tovar MD - 07/02/2024 5:27 PM EDT Below noted Would have patient follow up this week (have openings this week) to re-evaluate given acute illnesslast week and elevated WBC and abnormal ECG so can repeat labs and ECG to decide if needs to pursuecardiology consultation. Verify when preop eval is scheduled and will get message to them prior to that. Will fax update to Dr. Barrios after determine when patient will see me this week Lab already ordered so could get lab anytime at her convenience before the appointment. . * Telephone Encounter - Ronny Mills RN - 06/30/2024 4:26 PM EDT [employer]- reports she faxed the clearance form again today. Reports she needs the clearance form and ov notes by next week or pre op clearance appt will have to be re-scheduled. Martha Carter Phoned pt to ask how she is feeling pt reports she started having REICH and bad sore throat yesterday,on left side of throat. Reports she started using warm salt water gargles and Usnea gtts under her tongue yesterday and feeling better today. Still using the salt water gargles and Usnea gtts. Statesshe still has REICH and sore throat but not bad today. States she knows her WBC's were high and states she is willing to see home health registered nurse if pcp thinks she should. Please advise patient. * Telephone Encounter - Marleen Enriquez LPN - 06/30/2024 9:[address] Tovar reviewed labs and EKG. She notes to call pt to see if any change in health,acute illnesses,chest pain,shortness of breath, or dyspnea on exertion. since pre op appt with her 06/19/24. Labs were completed 06/27/24. She thought any she felt like she was getting ill with URI but only noted as sore throat on 06/29/24 started. * Telephone Encounter - Marleen Enriquez LPN - 06/29/2024 10:57 AM EDT EKG REC'D AND TO PCP TO REVIEW * Telephone Encounter - Marleen Enriquez LPN - 06/28/2024 12:13 PM EDT Rec'd labs via fax from Martha carter(although already rec'd them and in scanned documents) No new clearance form or EGK. * Telephone Encounter - Shilpa Pathak LPN - 06/28/2024 10:22 AM EDT [facility] faxing Preop Clearance form for Dr. Tovar to complete. EKG was done at [facility], [facility] will fax to Dr. Tovar to review, fax back. Shilpa Pathak LPN * Telephone Encounter - Rhea Rees RN - 06/28/2024 9:53 AM EDT Zoey calling from [facility]. Patient had Surgical Clearance appt with Dr. Tovar on 06/19/24. They are in need of an updated clearance form including PCP review of pt's recent lab and EKG results, faxed back to them. Zoey states she faxed information over to PCP office yesterday, 06/27/24. Please fax completed information back to them at FAX #: [phone] Rhea Rees RN documented in this encounterSal[facility]03-31-2025 Telephone encounter Note * Telephone Encounter - Rhea Rees RN - 07/03/2024 9:35 AM EDT In response to Dr. Tovar' note below: 1) Pre-Op Follow Up scheduled for patient, for this week with Sanjay Yates CNP 2) Pt's Pre-Op at [facility] is scheduled for 07/10/24 [facility]03-30-[facility] Telephone encounter Note* Telephone Encounter - Eriberto Tovar MD - 07/02/2024 5:27 PM EDT Below noted Would have patient follow up this week (have openings this week) to re-evaluate given acute illnesslast week and elevated WBC and abnormal ECG so can repeat labs and ECG to decide if needs to pursuecardiology consultation. Verify when preop eval is scheduled and will get message to them prior to that. Will fax update to Dr. Barrios after determine when patient will see me this week Lab already ordered so could get lab anytime at her convenience before the appointment. . [facility]03-29-2025 NoteHNO ID: [id number] Author: ISIDORO WILSON APRN.BODY TEAM MEMBER Service: ? Author Type: Nurse Practitioner Type: Progress Notes Filed: 07/01/2024 13:56 Note Text: Subjective HPI Nontoxic-appearing female presents urgent care chief complaint sore throat headache. Duration of symptoms 2 days. Associated symptoms listed above. Most prominent symptom symptom today is sore throat. Presents today for strep testing. Does have upcoming surgery. Wants to rule out strep throat. OTC medications none recently. No difficulty swallowing his secretions decreased range of motion of neck or trismus. No high fevers. Past medical history prescription medications allergies reviewed. .Patient presents with: Sore Throat: ST and REICH x 2 days PAST MEDICAL HISTORY Diagnosis Date Chronic fatigue syndrome Depression Dyspareunia 05/23/2012 Generalized anxiety disorder Hx of colonoscopy 01/27/2024 PER LIP NEEDS MAC AND ADULT SCOPE Mitral valve disorders(424.0) Myalgia and myositis, unspecified Obstructive sleep apnea Not treating because of cost Other kyphoscoliosis and scoliosis SPURS/VERTEBRAE Other specified iron deficiency anemias Unspecified sleep apnea PAST SURGICAL HISTORY Procedure Laterality Date ARTHRD ANT NTRBD MIN DSC EA ADDL INTERSPACE COLONOSCOPY FLX DX W/COLLJ SPEC WHEN PFRMD 10/17/2008 COLONOSCOPY SCREENING 12/05/2013 10 yr interval CORRECT BUNION,SIMPLE LEFT FOOT X 2 CRYO CAUTERY CERVIX DILATION AND CURETTAGE DXAND/THER NONOBSTETRIC Dilation AND curettage EGD TRANSORAL BIOPSY SINGLE/MULTIPLE 10/17/2008 gastritis PAST SURGICAL HISTORY OF 03/03/2001 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 ALLERGIES Sulfa (Sulfonamide Antibiotics) MEDICATIONS clobetasol (TEMOVATE) 0.05 % ointment Apply 1 application to affected area two times a week. venlafaxine ER (EFFEXOR XR) 150 mg 24 hr capsule Take 1 capsule by mouth two times a day. gabapentin (NEURONTIN) 400 mg capsule Take 1 capsule by mouth four times daily for 180 days. as directed TURMERIC ORAL Take 500 mg by mouth once daily. Turmeric 500mg and black pepper 5mg Zinc Gluconate 100 mg tab Take 2 tablets by mouth once daily. COQ10, UBIQUINOL, ORAL Take 1 tablet by mouth once daily. FERROUS SULFATE ORAL Take 365 mg by mouth once daily. L.acid/L.casei/B.bif/B.jose/FOS (PROBIOTIC BLEND ORAL) Take 175 mg by mouth once daily. aspirin 81 mg cap Take by mouth. lisinopril (PRINIVIL) 10 mg tablet Take 1 tablet by mouth once daily. traMADol (ULTRAM) 50 mg tablet Take 50 mg by mouth two times a day as needed. traZODone (DESYREL) 50 mg tablet Take 0.5-1 tablets by mouth daily at bedtime. rosuvastatin (CRESTOR) 5 mg tablet Take 1 tablet by mouth daily at bedtime. diclofenac, EC, (VOLTAREN) 75 mg EC tablet Take 1 tablet by mouth two times a day. For pain/inflammation. Take with food. CPAP Initiate CPAP @ 9 cm of water with humidification. Mask (per patient preference) optional chin strap (if indicated) , filters, tubing, humidifier and lifetime supplies. fluticasone (FLONASE) 50 mcg/actuation nasal spray Use 2 Sprays in each nostril once daily. CPAP CHIN STRAP, USED WITH CPAP DEVICE glucosam sul na/chondr galvan a na(GLUCOSAMINE-CHONDROITIN 3X 750 MG-600 MG TAB) Take 1 tablet twice daily. MAGNESIUM OXIDE 500 MG TAB Take 250 mg by mouth once daily. MELATONIN 3 MG TAB Take 10 mg by mouth. nightly cholecalciferol(VITAMIN D-3 1,000 UNIT CHEWABLE TAB) Take 2 tablets daily. methylsulfonylmethane(MSM 1,000 MG TAB) 1 tablet twice daily. vitamin b complex(B COMPLEX TAB) Take by mouth. VITAMIN E 400 UNIT CAP Take one(1) tablet daily. CALCIUM 600 + D(3) 600 MG-200 UNIT TAB Take one(1) tablet twice daily. MULTIVITAMIN TAB Take one(1) tablet daily. FAMILY HISTORY Problem Relation Age of Onset Alzheimer's Disease Mother Coronary Artery Disease Mother 35 35 at first [place] Ischemic Heart Disease Mother Stroke Mother Coronary Artery Disease Brother 57 2 MIs Breast Cancer Maternal Grandmother Coronary Artery Disease Maternal Grandfather Ischemic Heart Disease Maternal Grandfather Stroke Maternal Grandfather Breast Cancer Paternal Grandmother Social History Tobacco Use Smoking status: Never Smokeless tobacco: Never Vaping Use Vaping status: Never Used Substance Use Topics Alcohol use: No Drug use: No BP 122/80 Pulse 82 Temp 36.8 ?C (98.2 ?F) (Tympanic) Resp 16 Wt 78.1 kg (172 lb 2.9 oz) LMP 10/02/2007 SpO2 96% BMI 27.37 kg/m? Review of Systems Constitutional: Negative for chills, fever and malaise/fatigue. HENT: Positive for sore throat. Negative for congestion, ear discharge, ear pain and sinus pain. Eyes: Negative for blurred vision, pain, discharge and redness. Respiratory: Negative for cough, hemoptysis, sputum production, shortness of breath, wheezing and stridor. Cardiovascular: Negative for chest pain. Gastrointestinal: Negative for abdominal pain, diarrhea, nausea and vomiting. Mus (more content not included)...[facility]03-29-2025 History of Present illness Narrative* Isidoro Wilson, [facility] - 07/01/2024 1:54 PM EDT Subjective HPI Nontoxic-appearing female presents urgent care chief complaint sore throat headache. Duration of symptoms 2 days. Associated symptoms listed above. Most prominent symptom symptom today is sore throat. Presents today for strep testing. Does have upcoming surgery. Wants to rule out strep throat. OTC m edications none recently. No difficulty swallowing his secretions decreased range of motion of neckor trismus. No high fevers. Past medical history prescription medications allergies reviewed. .Patient presents with: Sore Throat: ST and REICH x 2 days PAST MEDICAL HISTORY Diagnosis Date Chronic fatigue syndrome Depression Dyspareunia 05/23/2012 Generalized anxiety disorder Hx of colonoscopy 01/27/2024 PER LIP NEEDS MAC AND ADULT SCOPE Mitral valve disorders(424.0) Myalgia and myositis, unspecified Obstructive sleep apnea Not treating because of cost Other kyphoscoliosis and scoliosis SPURS/VERTEBRAE Other specified iron deficiency anemias Unspecified sleep apnea PAST SURGICAL HISTORY Procedure Laterality Date ARTHRD ANT NTRBD MIN DSC EA ADDL INTERSPACE COLONOSCOPY FLX DX W/COLLJ SPEC WHEN PFRMD 10/17/2008 COLONOSCOPY SCREENING 12/05/2013 10 yr interval CORRECT BUNION,SIMPLE LEFT FOOT X 2 CRYO CAUTERY CERVIX DILATION & CURETTAGE DX&/THER NONOBSTETRIC Dilation & curettage EGD TRANSORAL BIOPSY SINGLE/MULTIPLE 10/17/2008 gastritis PAST SURGICAL HISTORY OF 03/03/2001 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 ALLERGIES Sulfa (Sulfonamide Antibiotics) MEDICATIONS clobetasol (TEMOVATE) 0.05 % ointment Apply 1 application to affected area two times a week. venlafaxine ER (EFFEXOR XR) 150 mg 24 hr capsule Take 1 capsule by mouth two times a day. gabapentin (NEURONTIN) 400 mg capsule Take 1 capsule by mouth four times daily for 180 days. as directed TURMERIC ORAL Take 500 mg by mouth once daily. Turmeric 500mg and black pepper 5mg Zinc Gluconate 100 mg tab Take 2 tablets by mouth once daily. COQ10, UBIQUINOL, ORAL Take 1 tablet by mouth once daily. FERROUS SULFATE ORAL Take 365 mg by mouth once daily. L.acid/L.casei/B.bif/B.jose/FOS (PROBIOTIC BLEND ORAL) Take 175 mg by mouth once daily. aspirin 81 mg cap Take by mouth. lisinopril (PRINIVIL) 10 mg tablet Take 1 tablet by mouth once daily. traMADol (ULTRAM) 50 mg tablet Take 50 mg by mouth two times a day as needed. traZODone (DESYREL) 50 mg tablet Take 0.5-1 tablets by mouth daily at bedtime. rosuvastatin (CRESTOR) 5 mg tablet Take 1 tablet by mouth daily at bedtime. diclofenac, EC, (VOLTAREN) 75 mg EC tablet Take 1 tablet by mouth two times a day. For pain/inflammation. Take with food. CPAP Initiate CPAP @ 9 cm of water with humidification. Mask (per patient preference) optional chinstrap (if indicated) , filters, tubing, humidifier and lifetime supplies. fluticasone (FLONASE) 50 mcg/actuation nasal spray Use 2 Sprays in each nostril once daily. CPAP CHIN STRAP, USED WITH CPAP DEVICE glucosam sul na/chondr galvan a na(GLUCOSAMINE-CHONDROITIN 3X 750 MG-600 MG TAB) Take 1 tablet twice daily. MAGNESIUM OXIDE 500 MG TAB Take 250 mg by mouth once daily. MELATONIN 3 MG TAB Take 10 mg by mouth. nightly cholecalciferol(VITAMIN D-3 1,000 UNIT CHEWABLE TAB) Take 2 tablets daily. methylsulfonylmethane(MSM 1,000 MG TAB) 1 tablet twice daily. vitamin b complex(B COMPLEX TAB) Take by mouth. VITAMIN E 400 UNIT CAP Take one(1) tablet daily. CALCIUM 600 + D(3) 600 MG-200 UNIT TAB Take one(1) tablet twice daily. MULTIVITAMIN TAB Take one(1) tablet daily. FAMILY HISTORY Problem Relation Age of Onset Alzheimer's Disease Mother Coronary Artery Disease Mother 35 35 at first [place] Ischemic Heart Disease Mother Stroke Mother Coronary Artery Disease Brother 57 2 MIs Breast Cancer Maternal Grandmother Coronary Artery Disease Maternal Grandfather Ischemic Heart Disease Maternal Grandfather Stroke Maternal Grandfather Breast Cancer Paternal Grandmother Social History Tobacco Use Smoking status: Never Smokeless tobacco: Never Vaping Use Vaping status: Never Used Substance Use Topics Alcohol use: No Drug use: No BP 122/80 Pulse 82 Temp 36.8 C (98.2 F) (Tympanic) Resp 16 Wt 78.1 kg (172 lb 2.9 oz) LMP10/02/2007 SpO2 96% BMI 27.37 kg/m Review of Systems Constitutional: Negative for chills, fever and malaise/fatigue. HENT: Positive for sore throat. Negative for congestion, ear discharge, ear pain and sinus pain. Eyes: Negative for blurred vision, pain, discharge and redness. Respiratory: Negative for cough, hemoptysis, sputum production, shortness of breath, wheezing and stridor. Cardiovascular: Negative for chest pain. Gastrointestinal: Negative for abdominal pain, diarrhea, nausea and vomiting. Musculoskeletal: Negative for myalgias. Skin: Negative for itching and rash. Neurological: Positive for headaches. Negative for dizziness. Objective Physical Exam Constitutional: General: She is not in acute distress. Appearance: She is not diaphoretic. HENT: Head: Normocephalic. Jaw: No trismus, tenderness, swelling or pain on movement. Mouth/Throat: Mouth: Mucous membranes are moist. Pharynx: Oropharynx is clear. Uvula midline. Posterior oropharyngeal erythema present. No pharyngeal swelling, oropharyngeal exudate or uvula swelling. Eyes: Conjunctiva/sclera: Conjunctivae normal. Pupils: Pupils are equal, round, and reactive to light. Cardiovascular: Rate and Rhythm: Normal rate and regular rhythm. Heart sounds: Normal heart sounds. Pulmonary: Effort: Pulmonary effort is normal. No tachypnea, accessory muscle usage or respiratory distress. Breath sounds: Normal breath sounds. No stridor. No wheezing, rhonchi or rales. Abdominal: General: There is no distension. Palpations: Abdomen is soft. Tenderness: There is no abdominal tenderness. There is no guarding or rebound. Musculoskeletal: Cervical back: Normal range of motion and neck supple. No edema, erythema, rigidity or tenderness. No pain with movement. Normal range of motion. Lymphadenopathy: Cervical: No cervical adenopathy. Skin: General: Skin is warm and dry. Neurological: Mental Status: She is alert and oriented to person, place, and time. ASSESSMENT/PLAN: 1. Sore throat - ICD9: 462, ICD10: J02.9 (primary diagnosis) - STREP A MOLECULAR (POC) 2. Viral illness - ICD9: 079.99, ICD10: B34.9 - Discussed viral etiology and rationale for treatment. - Symptomatic treatment with prn analgesia - Supportive care with fluids and rest Strep test negative. No evidence of bacterial faction. Diagnosed with viral pharyngitis. Patient was educated on supportive therapies. Patient will follow up with primary care provider as needed. Patient was instructed to immediately proceed to emergency room for any new, worsening, or symptoms lasting longer than anticipated. The patient's clinical presentation is otherwise unremarkable at this time. Based on exam and clinical finding, the patient is stable for discharge. Plan of care was discussed with patient. Patient verbalizes understanding and agrees to plan of care. This note was generated using Apiary software. It may contain errors in wording, punctuation, or spelling. Isidoro Wilson APRN.BODY TEAM MEMBER documented in this [facility] Telephone encounter Note * Telephone Encounter - Ronny Mills RN - 06/30/2024 4:26 PM EDT Ximena Carter- reports she faxed the clearance form again today. Reports she needs the clearance form and ov notes by next week or pre op clearance appt will have to be re-scheduled. Martha Carter Phoned pt to ask how she is feeling pt reports she started having REICH and bad sore throat yesterday,on left side of throat. Reports she started using warm salt water gargles and Usnea gtts under her tongue yesterday and feeling better today. Still using the salt water gargles and Usnea gtts. Statestrino still has REICH and sore throat but not bad today. States she knows her WBC's were high and states she is willing to see home health registered nurse if pcp thinks she should. Please advise patient. [facility]03-28-[facility] Telephone encounter Note* Telephone Encounter - Marleen Enriquez LPN - 06/30/2024 9:[address] Tovar reviewed labs and EKG. She notes to call pt to see if any change in health,acute illnesses,chest pain,shortness of breath, or dyspnea on exertion. since pre op appt with her 06/19/24. Labs were completed 06/27/24. She thought any she felt like she was getting ill with URI but only noted as sore throat on 06/29/24 started. [facility]03-27-20[facility] Telephone encounter Note* Telephone Encounter - Marleen Enriquez LPN - 06/29/2024 10:57 AM EDT EKG REC'D AND TO PCP TO REVIEW [facility]03-26-[facility] Telephone encounter Note* Telephone Encounter - Marleen Enriquez LPN - 06/28/2024 12:13 PM EDT Rec'd labs via fax from [facility](although already rec'd them and in scanned documents) No new clearance form or EGK. [facility]03-26-[facility] Telephone encounter Note* Telephone Encounter - Shilpa Pathak LPN - 06/28/2024 10:22 AM EDT [facility] faxing Preop Clearance form for Dr. Tovar to complete. EKG was done at [facility], [facility] will fax to Dr. Tovar to review, fax back. Shilpa Pathak LPN [facility]03-26-2025 Telephone encounter Note* Telephone Encounter - Rhea Rees RN - 06/28/2024 9:53 AM EDT Zoey calling from [facility]. Patient had Surgical Clearance appt with Dr. Tovar on 06/19/24. They are in need of an updated clearance form including PCP review of pt's recent lab and EKG results, faxed back to them. Zoey states she faxed information over to PCP office yesterday, 06/27/24. Please fax completed information back to them at FAX #: [phone] Rhea Rees RN [facility]03-20-20[facility] Instructions* Patient Instructions* Gabriela Britt APRN.CHERIE - 06/22/2024 2:28 PM EDT Aquaphor documented in this encounterSalem [facility]03-20-2025 NoteHNO ID: [id number] Author: GABRIELA BRITT APRN.BODY TEAM MEMBER Service: ? Author Type: Nurse Practitioner Type: Progress Notes Filed: 06/27/2024 20:56 Note Text: Martine Landaverde is a 68 year old female who presents for problem visit follow up for LS HPI: Lichen sclerosis - using clobetasol MWF routinely for maintenance. In February was evaluated for soreness and skin tearing around anus. She began using clobetasol but with no improvement of symptoms. Evaluated at her scheduled dermatology appointment and now using Vaseline and sometimes triple antibiotic ointment with improvement of pain and skin breakdown. OB History Gravida3 Para2 Term0 Preterm0 AB0 Living2 SAB0 IAB0 Ectopic0 Multiple0 Live Births0 Media Developer History LMP: 10/02/2007, Postmenopausal Age at Menarche: Age at First : Age at Menopause: Media Developer History Comments: Sexual Activity: Yes; Male; Postmenopausal Contraception: Vasectomy PAST MEDICAL HISTORY Diagnosis Date Chronic fatigue syndrome Depression Dyspareunia 05/23/2012 Generalized anxiety disorder Hx of colonoscopy 01/27/2024 PER LIP NEEDS MAC AND ADULT SCOPE Mitral valve disorders(424.0) Myalgia and myositis, unspecified Obstructive sleep apnea Not treating because of cost Other kyphoscoliosis and scoliosis SPURS/VERTEBRAE Other specified iron deficiency anemias Unspecified sleep apnea PAST SURGICAL HISTORY Procedure Laterality Date ARTHRD ANT NTRBD MIN DSC EA ADDL INTERSPACE COLONOSCOPY FLX DX W/COLLJ SPEC WHEN PFRMD 10/17/2008 COLONOSCOPY SCREENING 12/05/2013 10 yr interval CORRECT BUNION,SIMPLE LEFT FOOT X 2 CRYO CAUTERY CERVIX DILATION AND CURETTAGE DXAND/THER NONOBSTETRIC Dilation AND curettage EGD TRANSORAL BIOPSY SINGLE/MULTIPLE 10/17/2008 gastritis PAST SURGICAL HISTORY OF 03/03/2001 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 FAMILY HISTORY Problem Relation Age of Onset Alzheimer's Disease Mother Coronary Artery Disease Mother 35 35 at first [place] Ischemic Heart Disease Mother Stroke Mother Coronary Artery Disease Brother 57 2 MIs Breast Cancer Maternal Grandmother Coronary Artery Disease Maternal Grandfather Ischemic Heart Disease Maternal Grandfather Stroke Maternal Grandfather Breast Cancer Paternal Grandmother Social History Tobacco Use Smoking status: Never Smokeless tobacco: Never Vaping Use Vaping status: Never Used Substance Use Topics Alcohol use: No Drug use: No Current Outpatient Medications Medication Sig amoxicillin (AMOXIL) 500 mg capsule Take 1 capsule by mouth three times a day for 10 days. venlafaxine ER (EFFEXOR XR) 150 mg 24 hr capsule Take 1 capsule by mouth two times a day. gabapentin (NEURONTIN) 400 mg capsule Take 1 capsule by mouth four times daily for 180 days. as directed TURMERIC ORAL Take 500 mg by mouth once daily. Turmeric 500mg and black pepper 5mg Zinc Gluconate 100 mg tab Take 2 tablets by mouth once daily. COQ10, UBIQUINOL, ORAL Take 1 tablet by mouth once daily. FERROUS SULFATE ORAL Take 365 mg by mouth once daily. L.acid/L.casei/B.bif/B.jose/FOS (PROBIOTIC BLEND ORAL) Take 175 mg by mouth once daily. clobetasol (TEMOVATE) 0.05 % ointment Apply 1 application to affected area two times a day. (Patient taking differently: Apply 1 application to affected area three times a week.) aspirin 81 mg cap Take by mouth. lisinopril (PRINIVIL) 10 mg tablet Take 1 tablet by mouth once daily. traMADol (ULTRAM) 50 mg tablet Take 50 mg by mouth two times a day as needed. traZODone (DESYREL) 50 mg tablet Take 0.5-1 tablets by mouth daily at bedtime. rosuvastatin (CRESTOR) 5 mg tablet Take 1 tablet by mouth daily at bedtime. diclofenac, EC, (VOLTAREN) 75 mg EC tablet Take 1 tablet by mouth two times a day. For pain/inflammation. Take with food. CPAP Initiate CPAP @ 9 cm of water with humidification. Mask (per patient preference) optional chin strap (if indicated) , filters, tubing, humidifier and lifetime supplies. fluticasone (FLONASE) 50 mcg/actuation nasal spray Use 2 Sprays in each nostril once daily. CPAP CHIN STRAP, USED WITH CPAP DEVICE glucosam sul na/chondr galvan a na(GLUCOSAMINE-CHONDROITIN 3X 750 MG-600 MG TAB) Take 1 tablet twice daily. MAGNESIUM OXIDE 500 MG TAB Take 250 mg by mouth once daily. MELATONIN 3 MG TAB Take 10 mg by mouth. nightly cholecalciferol(VITAMIN D-3 1,000 UNIT CHEWABLE TAB) Take 2 tablets daily. methylsulfonylmethane(MSM 1,000 MG TAB) 1 tablet twice daily. vitamin b complex(B COMPLEX TAB) Take by mouth. (Patient not taking: Reported on 06/19/2024) VITAMIN E 400 UNIT CAP Take one(1) tablet daily. CALCIUM 600 + D(3) 600 MG-200 UNIT TAB Take one(1) tablet twice daily. MULTIVITAMIN TAB Take one(1) tablet daily. No current facility-administered medications for this visit. Allergies As of Date: 06/22/2024 Allergen Noted Reaction SULFA (SULFONAMIDE ANTIBIOTICS) 12/05/2004 Hives Fully Assessed 06/19/2024 REVIEW OF SYSTEMS Allergies (more content not included)...[facility]03-20-2025 History of Present illness Narrative* Gabriela Britt, CARLOS.BODY TEAM MEMBER - 06/22/2024 2:06 PM EDT Martine Landaverde is a 68 year old female who presents for problem visit follow up for LS HPI: Lichen sclerosis - using clobetasol MWF routinely for maintenance. In February was evaluated for soreness and skin tearing around anus. She began using clobetasol butwith no improvement of symptoms. Evaluated at her scheduled dermatology appointment and now using Vaseline and sometimes triple antibiotic ointment with improvement of pain and skin breakdown. OB History Gravida3 Para2 Term0 Preterm0 AB0 Living2 SAB0 IAB0 Ectopic0 Multiple0 Live Births0 Media Developer History LMP: 10/02/2007, Postmenopausal Age at Menarche: Age at First : Age at Menopause: Media Developer History Comments: Sexual Activity: Yes; Male; Postmenopausal Contraception: Vasectomy PAST MEDICAL HISTORY Diagnosis Date Chronic fatigue syndrome Depression Dyspareunia 05/23/2012 Generalized anxiety disorder Hx of colonoscopy 01/27/2024 PER LIP NEEDS MAC AND ADULT SCOPE Mitral valve disorders(424.0) Myalgia and myositis, unspecified Obstructive sleep apnea Not treating because of cost Other kyphoscoliosis and scoliosis SPURS/VERTEBRAE Other specified iron deficiency anemias Unspecified sleep apnea PAST SURGICAL HISTORY Procedure Laterality Date ARTHRD ANT NTRBD MIN DSC EA ADDL INTERSPACE COLONOSCOPY FLX DX W/COLLJ SPEC WHEN PFRMD 10/17/2008 COLONOSCOPY SCREENING 12/05/2013 10 yr interval CORRECT BUNION,SIMPLE LEFT FOOT X 2 CRYO CAUTERY CERVIX DILATION & CURETTAGE DX&/THER NONOBSTETRIC Dilation & curettage EGD TRANSORAL BIOPSY SINGLE/MULTIPLE 10/17/2008 gastritis PAST SURGICAL HISTORY OF 03/03/2001 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 FAMILY HISTORY Problem Relation Age of Onset Alzheimer's Disease Mother Coronary Artery Disease Mother 35 35 at first [place] Ischemic Heart Disease Mother Stroke Mother Coronary Artery Disease Brother 57 2 MIs Breast Cancer Maternal Grandmother Coronary Artery Disease Maternal Grandfather Ischemic Heart Disease Maternal Grandfather Stroke Maternal Grandfather Breast Cancer Paternal Grandmother Social History Tobacco Use Smoking status: Never Smokeless tobacco: Never Vaping Use Vaping status: Never Used Substance Use Topics Alcohol use: No Drug use: No Current Outpatient Medications Medication Sig amoxicillin (AMOXIL) 500 mg capsule Take 1 capsule by mouth three times a day for 10 days. venlafaxine ER (EFFEXOR XR) 150 mg 24 hr capsule Take 1 capsule by mouth two times a day. gabapentin (NEURONTIN) 400 mg capsule Take 1 capsule by mouth four times daily for 180 days. as directed TURMERIC ORAL Take 500 mg by mouth once daily. Turmeric 500mg and black pepper 5mg Zinc Gluconate 100 mg tab Take 2 tablets by mouth once daily. COQ10, UBIQUINOL, ORAL Take 1 tablet by mouth once daily. FERROUS SULFATE ORAL Take 365 mg by mouth once daily. L.acid/L.casei/B.bif/B.jose/FOS (PROBIOTIC BLEND ORAL) Take 175 mg by mouth once daily. clobetasol (TEMOVATE) 0.05 % ointment Apply 1 application to affected area two times a day. (Patient taking differently: Apply 1 application to affected area three times a week.) aspirin 81 mg cap Take by mouth. lisinopril (PRINIVIL) 10 mg tablet Take 1 tablet by mouth once daily. traMADol (ULTRAM) 50 mg tablet Take 50 mg by mouth two times a day as needed. traZODone (DESYREL) 50 mg tablet Take 0.5-1 tablets by mouth daily at bedtime. rosuvastatin (CRESTOR) 5 mg tablet Take 1 tablet by mouth daily at bedtime. diclofenac, EC, (VOLTAREN) 75 mg EC tablet Take 1 tablet by mouth two times a day. For pain/inflammation. Take with food. CPAP Initiate CPAP @ 9 cm of water with humidification. Mask (per patient preference) optional chinstrap (if indicated) , filters, tubing, humidifier and lifetime supplies. fluticasone (FLONASE) 50 mcg/actuation nasal spray Use 2 Sprays in each nostril once daily. CPAP CHIN STRAP, USED WITH CPAP DEVICE glucosam sul na/chondr galvan a na(GLUCOSAMINE-CHONDROITIN 3X 750 MG-600 MG TAB) Take 1 tablet twice daily. MAGNESIUM OXIDE 500 MG TAB Take 250 mg by mouth once daily. MELATONIN 3 MG TAB Take 10 mg by mouth. nightly cholecalciferol(VITAMIN D-3 1,000 UNIT CHEWABLE TAB) Take 2 tablets daily. methylsulfonylmethane(MSM 1,000 MG TAB) 1 tablet twice daily. vitamin b complex(B COMPLEX TAB) Take by mouth. (Patient not taking: Reported on 06/19/2024) VITAMIN E 400 UNIT CAP Take one(1) tablet daily. CALCIUM 600 + D(3) 600 MG-200 UNIT TAB Take one(1) tablet twice daily. MULTIVITAMIN TAB Take one(1) tablet daily. No current facility-administered medications for this visit. Allergies As of Date: 06/22/2024 Allergen Noted Reaction SULFA (SULFONAMIDE ANTIBIOTICS) 12/05/2004 Hives Fully Assessed 06/19/2024 REVIEW OF SYSTEMS Allergies and current medication updated:Yes SENSITIVE EXAM: The sensitive examination was discussed with the Patient or Patient's Authorized Bilingual Secretary. As applicable, any other physician, advance practice provider, medical student, or other health professional student that will be observing or involved in the sensitive examination for educational or training purposes was discussed with the Patient or Authorized Bilingual Secretary. The Patient or Authorized Bilingual Secretary has agreed to proceed with the sensitive examination. (Sensitive examination includes inspection and/or palpation of the breasts, pelvis, prostate and anorectal regions). EXAM: BP 126/78 Wt 172 lb (78.0kg) LMP 10/02/2007 GENERAL: pleasant, female in no apparent distress CHEST: Normal inspiratory effort ABDOMEN: soft, non-tender, and no masses PELVIC: external genitalia normal, normal Bartholin's glands, urethra, Alleene's glands, no cervical lesions, physiologic discharge present, normal appearing perineal body and perianal region. Hypopigmented skin tag at introitus. Symmetrical cuba of chafing to gluteal cleft/folds. BIMANUAL: uterus normal size, shape and consistency, no adnexal masses, and non-tender NEURO: alert and oriented x3,exam grossly non-focal ASSESSMENT/PLAN: 1. Chafing - ICD9: 709.8, ICD10: L30.4 (primary diagnosis) - Aquaphor to protect skin - GoldBond Friction Defense for prevention 2. Lichen sclerosus et atrophicus - ICD9: 701.0, ICD10: L90.0 - CLOBETASOL 0.05 % TOPICAL OINTMENT 3. Postmenopausal atrophic vaginitis - ICD9: 627.3, ICD10: N95.2 - continue vaginal hyaluronic acid suppositories Follow-up as needed. Gabriela Britt APRN.CHERIE Medical Decision Making: Problems: Moderate: 1+ chronic illnesses with change and 2+ stable chronic illnesses Risk: Moderate: Drug management Medical Decision Making Level: 4 - Moderate documented in this encounterSal[facility]03-[facility]25 Instructions* Patient Instructions* Eriberto Tovar MD - 06/19/2024 3:21 PM EDT - Continue taking Amoxicillin 3 times daily until the course is completed on Wednesday, the . - Continue taking your current medications as prescribed, including calcium, baby aspirin, vitamin D, clobetasol (3 times weekly), CoQ10, CPAP, iron, Flonase, Gabapentin (400 mg 3-4 times daily as needed), glucosamine chondroitin, probiotic blend, Prindivil (10 mg once daily), magnesium oxide (500 mg once daily), melatonin at night, MSM, rosuvastatin (5 mg daily at bedtime), tramadol, and trazodone. - Hold B-complex vitamins until further notice due to previous high levels in blood work. - Hold diclofenac (Voltaren) before surgery as instructed by your surgeon. - Discuss pain management with Dr. Garcia during your follow-up appointment before surgery to ensure adequate pain control after holding diclofenac. - Add Miralax to your daily regimen to help with constipation. Start with one capful mixed with water or any beverage once daily, and adjust as needed. - Take Gas-X with meals to help manage gas. Consider taking it with both breakfast and dinner. - Monitor your diet for foods that may increase gas, such as onions, broccoli, and carbonated beverages. Consider reducing intake or using Beano to help digest these foods. - Avoid using straws when drinking beverages to reduce swallowing air. - Your knee replacement surgery with Dr. Barrios is scheduled for July 17 at [facility]. Follow all pre-operative instructions provided by your surgical team. - Ensure that your dental infection is fully resolved before surgery. - Follow up with Dr. Garcia for pain management after surgery as directed by your surgical team. documented in this encounterSalem [facility]03-17-2025 NoteHNO ID: [id number] Author: ERIBERTO TOVAR MD Service: ? Author Type: Physician Type: Progress Notes Filed: 06/19/2024 15:21 Note Text: This note was created using InPhase Technologiesriter. Subjective Martine Landaverde is a 68 year old female. HISTORY Martine Landaverde is a 68 year old lady here for pre-op evaluation as requested by Dr. Barrios. Martine Landaverde has surgery scheduled on 07/17/24 for Right TKA at [facility]. Tristian is a 68-year-old female presenting for a preoperative evaluation for a right TKA scheduled with Dr. Barrios on 07/17/2024 at [facility]. Tristian reports a history of postoperative emesis following anesthesia, but notes that with subsequent surgeries, she has not experienced this issue. She denies current chest pain, dyspnea, fevers, chills, or sinus pain/pressure. She recently had an infected tooth, which was treated last Wednesday. She denies symptoms of a bladder infection. She is currently taking amoxicillin TID for the dental infection, which she started last Wednesday and will complete on Wednesday. Her medication regimen includes calcium, baby aspirin, vitamin D, clobetasol (applied 3 times weekly), CoQ10, CPAP, diclofenac BID, iron, Flonase, gabapentin 400 mg (usually TID, occasionally QID for increased pain), glucosamine chondroitin, probiotic blend, Prinivil 10 mg daily, magnesium oxide 500 mg daily, melatonin at night, MSM, multivitamin, rosuvastatin 5 mg at bedtime, tramadol, trazodone, Effexor, and B-complex. She has temporarily discontinued the B-complex and multivitamin due to concerns about biotin affecting thyroid test results. She reports chronic constipation, managed with tramadol once daily, 3 spoons of stool softener, 6 prunes, 2 apricots, and Metamucil daily. She denies diarrhea. She also reports chronic flatulence, managed with 4 Gas-X pills before judaism, but denies eructation. She drinks one carbonated beverage daily and denies using a straw. She denies any issues with her vision. PAST MEDICAL HISTORY Diagnosis Date Chronic fatigue syndrome Depression Dyspareunia 05/23/2012 Generalized anxiety disorder Hx of colonoscopy 01/27/2024 PER LIP NEEDS MAC AND ADULT SCOPE Mitral valve disorders(424.0) Myalgia and myositis, unspecified Obstructive sleep apnea Not treating because of cost Other kyphoscoliosis and scoliosis SPURS/VERTEBRAE Other specified iron deficiency anemias Unspecified sleep apnea PAST SURGICAL HISTORY Procedure Laterality Date ARTHRD ANT NTRBD MIN DSC EA ADDL INTERSPACE COLONOSCOPY FLX DX W/COLLJ SPEC WHEN PFRMD 10/17/2008 COLONOSCOPY SCREENING 12/05/2013 10 yr interval CORRECT BUNION,SIMPLE LEFT FOOT X 2 CRYO CAUTERY CERVIX DILATION AND CURETTAGE DXAND/THER NONOBSTETRIC Dilation AND curettage EGD TRANSORAL BIOPSY SINGLE/MULTIPLE 10/17/2008 gastritis PAST SURGICAL HISTORY OF 03/03/2001 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 ALLERGIES Allergen Reactions Sulfa (Sulfonamide * Hives Current Outpatient Medications Medication Sig venlafaxine ER (EFFEXOR XR) 150 mg 24 hr capsule Take 1 capsule by mouth two times a day. gabapentin (NEURONTIN) 400 mg capsule Take 1 capsule by mouth four times daily for 180 days. as directed TURMERIC ORAL Take 500 mg by mouth once daily. Turmeric 500mg and black pepper 5mg Zinc Gluconate 100 mg tab Take 2 tablets by mouth once daily. COQ10, UBIQUINOL, ORAL Take 1 tablet by mouth once daily. FERROUS SULFATE ORAL Take 365 mg by mouth once daily. L.acid/L.casei/B.bif/B.jose/FOS (PROBIOTIC BLEND ORAL) Take 175 mg by mouth once daily. clobetasol (TEMOVATE) 0.05 % ointment Apply 1 application to affected area two times a day. (Patient taking differently: Apply 1 application to affected area three times a week.) aspirin 81 mg cap Take by mouth. lisinopril (PRINIVIL) 10 mg tablet Take 1 tablet by mouth once daily. traMADol (ULTRAM) 50 mg tablet Take 50 mg by mouth two times a day as needed. traZODone (DESYREL) 50 mg tablet Take 0.5-1 tablets by mouth daily at bedtime. rosuvastatin (CRESTOR) 5 mg tablet Take 1 tablet by mouth daily at bedtime. diclofenac, EC, (VOLTAREN) 75 mg EC tablet Take 1 tablet by mouth two times a day. For pain/inflammation. Take with food. CPAP Initiate CPAP @ 9 cm of water with humidification. Mask (per patient preference) optional chin strap (if indicated) , filters, tubing, humidifier and lifetime supplies. fluticasone (FLONASE) 50 mcg/actuation nasal spray Use 2 Sprays in each nostril once daily. CPAP CHIN STRAP, USED WITH CPAP DEVICE glucosam sul na/chondr galvan a na(GLUCOSAMINE-CHONDROITIN 3X 750 MG-600 MG TAB) Take 1 tablet twice daily. MAGNESIUM OXIDE 500 MG TAB Take 250 mg by mouth once daily. MELATONIN 3 MG TAB Take 10 mg by mouth. nightly cholecalciferol(VITAMIN D-3 1,000 UNIT CHEWABLE TAB) Take 2 tablets daily. methylsulfonylmethane(MSM 1,000 MG TAB) 1 tablet twice daily. VITAMIN E 400 UNIT CAP Take one(1) tablet daily (more content not included)... [facility]03-17-2025 History of Present illness Narrative* Eriberto Tovar MD - 06/19/2024 2:53 PM EDT This note was created using NoteWriter. Subjective Martine Landaverde is a 68 year old female. HISTORY Martine Landaverde is a 68 year old lady here for pre-op evaluation as requested by Dr. Barrios. Martine Barfield has surgery scheduled on 07/17/24 for Right TKA at [facility]. Tristian is a 68-year-old female presenting for a preoperative evaluation for a right TKA scheduled with Dr. Barrios on 07/17/2024 at [facility]. Tristian reports a history of postoperative emesis following anesthesia, but notes that with subsequentsurgeries, she has not experienced this issue. She denies current chest pain, dyspnea, fevers, chills, or sinus pain/pressure. She recently had an infected tooth, which was treated last Wednesday. She denies symptoms of a bladder infection. She is currently taking amoxicillin TID for the dental infection, which she started last Wednesday andwill complete on Wednesday. Her medication regimen includes calcium, baby aspirin, vitamin D, clobetasol (applied 3 times weekly), CoQ10, CPAP, diclofenac BID, iron, Flonase, gabapentin 400 mg (usually TID, occasionally QID for increased pain), glucosamine chondroitin, probiotic blend, Prinivil 10 mg daily, magnesium oxide 500 mg daily, melatonin at night, MSM, multivitamin, rosuvastatin 5 mg at bedtime, tramadol, trazodone, Effexor, and B- complex. She has temporarily discontinued the B-complexand multivitamin due to concerns about biotin affecting thyroid test results. She reports chronic constipation, managed with tramadol once daily, 3 spoons of stool softener, 6 prunes, 2 apricots, and Metamucil daily. She denies diarrhea. She also reports chronic flatulence, managed with 4 Gas-X pills before judaism, but denies eructation. She drinks one carbonated beverage daily and denies using a straw. She denies any issues with her vision. PAST MEDICAL HISTORY Diagnosis Date Chronic fatigue syndrome Depression Dyspareunia 05/23/2012 Generalized anxiety disorder Hx of colonoscopy 01/27/2024 PER LIP NEEDS MAC AND ADULT SCOPE Mitral valve disorders(424.0) Myalgia and myositis, unspecified Obstructive sleep apnea Not treating because of cost Other kyphoscoliosis and scoliosis SPURS/VERTEBRAE Other specified iron deficiency anemias Unspecified sleep apnea PAST SURGICAL HISTORY Procedure Laterality Date ARTHRD ANT NTRBD MIN DSC EA ADDL INTERSPACE COLONOSCOPY FLX DX W/COLLJ SPEC WHEN PFRMD 10/17/2008 COLONOSCOPY SCREENING 12/05/2013 10 yr interval CORRECT BUNION,SIMPLE LEFT FOOT X 2 CRYO CAUTERY CERVIX DILATION & CURETTAGE DX&/THER NONOBSTETRIC Dilation & curettage EGD TRANSORAL BIOPSY SINGLE/MULTIPLE 10/17/2008 gastritis PAST SURGICAL HISTORY OF 03/03/2001 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 ALLERGIES Allergen Reactions Sulfa (Sulfonamide * Hives Current Outpatient Medications Medication Sig venlafaxine ER (EFFEXOR XR) 150 mg 24 hr capsule Take 1 capsule by mouth two times a day. gabapentin (NEURONTIN) 400 mg capsule Take 1 capsule by mouth four times daily for 180 days. as directed TURMERIC ORAL Take 500 mg by mouth once daily. Turmeric 500mg and black pepper 5mg Zinc Gluconate 100 mg tab Take 2 tablets by mouth once daily. COQ10, UBIQUINOL, ORAL Take 1 tablet by mouth once daily. FERROUS SULFATE ORAL Take 365 mg by mouth once daily. L.acid/L.casei/B.bif/B.jose/FOS (PROBIOTIC BLEND ORAL) Take 175 mg by mouth once daily. clobetasol (TEMOVATE) 0.05 % ointment Apply 1 application to affected area two times a day. (Patient taking differently: Apply 1 application to affected area three times a week.) aspirin 81 mg cap Take by mouth. lisinopril (PRINIVIL) 10 mg tablet Take 1 tablet by mouth once daily. traMADol (ULTRAM) 50 mg tablet Take 50 mg by mouth two times a day as needed. traZODone (DESYREL) 50 mg tablet Take 0.5-1 tablets by mouth daily at bedtime. rosuvastatin (CRESTOR) 5 mg tablet Take 1 tablet by mouth daily at bedtime. diclofenac, EC, (VOLTAREN) 75 mg EC tablet Take 1 tablet by mouth two times a day. For pain/inflammation. Take with food. CPAP Initiate CPAP @ 9 cm of water with humidification. Mask (per patient preference) optional chinstrap (if indicated) , filters, tubing, humidifier and lifetime supplies. fluticasone (FLONASE) 50 mcg/actuation nasal spray Use 2 Sprays in each nostril once daily. CPAP CHIN STRAP, USED WITH CPAP DEVICE glucosam sul na/chondr galvan a na(GLUCOSAMINE-CHONDROITIN 3X 750 MG-600 MG TAB) Take 1 tablet twice daily. MAGNESIUM OXIDE 500 MG TAB Take 250 mg by mouth once daily. MELATONIN 3 MG TAB Take 10 mg by mouth. nightly cholecalciferol(VITAMIN D-3 1,000 UNIT CHEWABLE TAB) Take 2 tablets daily. methylsulfonylmethane(MSM 1,000 MG TAB) 1 tablet twice daily. VITAMIN E 400 UNIT CAP Take one(1) tablet daily. CALCIUM 600 + D(3) 600 MG-200 UNIT TAB Take one(1) tablet twice daily. MULTIVITAMIN TAB Take one(1) tablet daily. amoxicillin (AMOXIL) 500 mg capsule Take 1 capsule by mouth three times a day for 10 days. vitamin b complex(B COMPLEX TAB) Take by mouth. (Patient not taking: Reported on 06/19/2024) No current facility-administered medications for this visit. FAMILY HISTORY Problem Relation Age of Onset Alzheimer's Disease Mother Coronary Artery Disease Mother 35 35 at first [place] Ischemic Heart Disease Mother Stroke Mother Coronary Artery Disease Brother 57 2 MIs Breast Cancer Maternal Grandmother Coronary Artery Disease Maternal Grandfather Ischemic Heart Disease Maternal Grandfather Stroke Maternal Grandfather Breast Cancer Paternal Grandmother Social History Tobacco Use Smoking status: Never Smokeless tobacco: Never Vaping Use Vaping status: Never Used Substance Use Topics Alcohol use: No Drug use: No Review of Systems Objective BP 111/65 Pulse 74 Ht 168.9 cm (5' 6.5) Wt 78.1 kg (172 lb 2.9 oz) LMP 10/02/2007 BMI 27.37 kg/m Last 5 Encounter Wt Readings: Date: Wt: 06/19/2024 78.1 kg (172 lb 2.9 oz) 03/14/2024 75.7 kg (166 lb 14.2 oz) 02/28/2024 74.8 kg (164 lb 14.5 oz) 02/28/2024 75.2 kg (165 lb 12.8 oz) 01/27/2024 78.6 kg (173 lb 4.5 oz) No waist measurement recorded Estimated body mass index is 27.37 kg/m as calculated from the following: Height as of this encounter: 168.9 cm (5' 6.5). Weight as of this encounter: 78.1 kg (172 lb 2.9 oz). Last 5 Encounter BP Readings: Date: BP: 06/19/2024 111/65 03/14/2024 118/68 02/28/2024 108/60 02/28/2024 102/62 01/27/2024 117/61 Physical Exam Vitals reviewed. Constitutional: Appearance: Normal appearance. She is well-developed. HENT: Head: Normocephalic and atraumatic. Right Ear: Tympanic membrane, ear canal and external ear normal. Left Ear: Tympanic membrane, ear canal and external ear normal. Nose: Nose normal. Mouth/Throat: Mouth: Mucous membranes are moist. Eyes: Conjunctiva/sclera: Conjunctivae normal. Pupils: Pupils are equal, round, and reactive to light. Neck: Thyroid: No thyromegaly. Vascular: No carotid bruit. Cardiovascular: Rate and Rhythm: Normal rate and regular rhythm. Pulses: Normal pulses. Heart sounds: Normal heart sounds. No murmur heard. No friction rub. No gallop. Pulmonary: Effort: Pulmonary effort is normal. Breath sounds: Normal breath sounds. Abdominal: General: Bowel sounds are normal. There is no distension. Palpations: Abdomen is soft. There is no mass. Tenderness: There is no abdominal tenderness. Musculoskeletal: General: No deformity. Normal range of motion. Right lower leg: No edema. Left lower leg: No edema. Lymphadenopathy: Cervical: No cervical adenopathy. Skin: General: Skin is warm and dry. Coloration: Skin is not jaundiced or pale. Findings: No rash. Neurological: General: No focal deficit present. Mental Status: She is alert and oriented to person, place, and time. Cranial Nerves: No cranial nerve deficit. Sensory: No sensory deficit. Motor: No abnormal muscle tone. Coordination: Coordination normal. Deep Tendon Reflexes: Reflexes normal. Psychiatric: Attention and Perception: Attention normal. Mood and Affect: Mood and affect normal. Speech: Speech normal. Behavior: Behavior normal. Thought Content: Thought content normal. Cognition and Memory: Memory normal. Judgment: Judgment normal. Assessment and Plan # Preoperative evaluation to rule out surgical contraindication (Z01.818) - Preoperative evaluation for right total knee arthroplasty scheduled with Dr. Barrios on [facility]24[facility]. - No medical contraindications identified during examination. - Reviewed and updated medication list; will send to Dr. Barrios. - Discussed holding NSAIDs, specifically diclofenac, prior to surgery. - Pain management to be coordinated with Dr. Garcia preoperatively and Dr. Barrios postoperatively. - Recent labs from April show TSH at 1.15, magnesium slightly elevated, vitamin B12 within normalrange, T3 and T4 levels normal. - Will coordinate with Dr. Barrios regarding any additional preoperative labs if needed. - Cleared for surgery; will send surgical evaluation documentation to Dr. Barrios. # Constipation, unspecified constipation type (K59.00) - Chronic issue, currently managed with tramadol, stool softeners, prunes, apricots, and Metamucil. - Recommended adding Miralax to regimen for additional stool hydration. - Emphasized importance of maintaining bowel regularity, especially with upcoming surgery and potential opioid use. # Gas pain (R14.1) - Chronic issue, likely related to dietary habits and constipation. - Advised taking Gas-X with meals to prevent gas buildup. - Discussed dietary modifications to reduce gas production, including avoiding certain foods and using Beano. - Educated on avoiding straws and carbonated beverages to minimize air swallowing. # Dental infection (K04.7) - Recent dental infection treated with amoxicillin 3 times daily; course to be completed on 01/22. - Infection resolved; no anticipated issues for upcoming surgery. Eriberto Tovar MD [facility] Telephone encounter Note * Telephone Encounter - Abdulkadir Duque LPN - 06/06/2024 11:40 AM EST Prescription Refill Information The patient has been identified by name and date of : Yes Caregiver verified no other encounters exist for this prescription request: Yes Caregiver confirmed with patient/requestor that no other refills are due, in the near future, with this provider at this time: Yes The last office visit in the department: 03/14/24 Does the patient have a future office visit with this provider/department: Yes, 06/19/24 Requested Prescriptions Pending Prescriptions Disp Refills venlafaxine ER (EFFEXOR XR) 150 mg 24 hr capsule 180 capsule 3 Sig: Take 1 capsule by mouth two times a day. *Last rx written 05/10/24 #180 with 3 refills. Pt not due for refills. message to pt advising of the same. Abdulkadir Duque LPN June 06, 2024 11:40 AM [facility]03-04-[facility]25 Miscellaneous Notes* Telephone Encounter - Abdulkadir Duque LPN - 06/06/2024 11:40 AM EST Prescription Refill Information The patient has been identified by name and date of : Yes Caregiver verified no other encounters exist for this prescription request: Yes Caregiver confirmed with patient/requestor that no other refills are due, in the near future, with this provider at this time: Yes The last office visit in the department: 03/14/24 Does the patient have a future office visit with this provider/department: Yes, 06/19/24 Requested Prescriptions Pending Prescriptions Disp Refills venlafaxine ER (EFFEXOR XR) 150 mg 24 hr capsule 180 capsule 3 Sig: Take 1 capsule by mouth two times a day. *Last rx written 05/10/24 #180 with 3 refills. Pt not due for refills. MC message to pt advising of the same. Abdulkadir Duque LPN June 06, 2024 11:40 AM [facility] Telephone encounter Note * Telephone Encounter - Eriberto Tovar MD - 05/10/2024 12:29 PM EST The following approved medication requests have been transmitted electronically. Requested Prescriptions Pending Prescriptions Disp Refills venlafaxine ER (EFFEXOR XR) 150 mg 24 hr capsule 180 capsule 3 Sig: Take 1 capsule by mouth two times a day. Eriberto Tovar MD [facility]02-05-2025 Miscellaneous Notes* Telephone Encounter - Eriberto Tovar MD - 05/10/2024 12:29 PM EST The following approved medication requests have been transmitted electronically. Requested Prescriptions Pending Prescriptions Disp Refills venlafaxine ER (EFFEXOR XR) 150 mg 24 hr capsule 180 capsule 3 Sig: Take 1 capsule by mouth two times a day. Eriberto Tovar MD * Telephone Encounter - Shilpa Pathak LPN - 05/09/2024 1:52 PM EST Per pharmacy, exceeds maximum dose, please review. Shilpa Pathak LPN documented [facility] Telephone encounter Note * Telephone Encounter - Shilpa Pathak LPN - 05/09/2024 1:53 PM EST Patient notified that she does have 1 refill remaining for Crestor (Rosuvastatin), Patient will contact pharmacy. Shilpa Pathak LPN [facility]02-04-[facility] Miscellaneous Notes* Telephone Encounter - Shilpa Pathak LPN - 05/09/2024 1:53 PM EST Patient notified that she does have 1 refill remaining for Crestor (Rosuvastatin), Patient will contact pharmacy. Shilpa Pathak LPN documented in [facility]Sal[facility] Telephone encounter Note * Telephone Encounter - Shilpa Pathak LPN - 05/09/2024 1:52 PM EST Per pharmacy, exceeds maximum dose, please review. Shilpa Pathak LPN [facility]01-31[facility] History of Present illness Narrative* Betsy Molina, RT(R) - 05/05/2024 11:30 AM EST Radiology Service Progress Note PATIENT NAME: Martine Landaverde DATE OF SERVICE: May 05, 2024 TIME: 11:36 AM PATIENT IDENTITY VERIFICATION COMPLETED USING TWO (2) IDENTIFIERS: Name and Date of confirmedby patient verbally. FALL SCREENING: Has the patient had 2 falls in the last year or 1 fall with injury or currently using an Ambulatory Assistive Device (Walker, Cane, Wheelchair, Crutches, etc.)? No PATIENT GENDER DATA: Assigned female at . status: : No status:NO. PATIENT RELEVANT IMPLANT DATA REVIEWED: Not Applicable PATIENT PRESENTS WITH AN IMPLANTABLE OR ATTACHED EXECUTIVE SEARCH CONSULTANT: No RADIOLOGY DEPARTMENT: Mammography PERIPHERAL IV DATA: Not applicable SIGNED BY: RT Rolando(R) May 05, 2024 11:36 AM * Ayaka Dunlap Mammo Tech - 05/05/2024 11:30 AM EST Radiology Service Progress Note PATIENT NAME: Martine Landaverde DATE OF SERVICE: May 05, 2024 TIME: 11:36 AM PATIENT IDENTITY VERIFICATION COMPLETED USING TWO (2) IDENTIFIERS: Name and Date of confirmedby patient verbally. FALL SCREENING: Has the patient had 2 falls in the last year or 1 fall with injury or currently using an Ambulatory Assistive Device (Walker, Cane, Wheelchair, Crutches, etc.)? No PATIENT GENDER DATA: Assigned female at . status: : No status:NO. PATIENT RELEVANT IMPLANT DATA REVIEWED: Not Applicable PATIENT PRESENTS WITH AN IMPLANTABLE OR ATTACHED EXECUTIVE SEARCH CONSULTANT: No RADIOLOGY DEPARTMENT: Mammography PERIPHERAL IV DATA: Not applicable SIGNED BY: Arnaud Hamilton May 05, 2024 11:36 AM documented in this encounterSal[facility]01-31-2025 NoteHNO ID: [id number] Author: AYAKA DUNLAP Mammo Tech Service: ? Author Type: Net Development Manager Type: Progress Notes Filed: 05/05/2024 11:36 Note Text: Radiology Service Progress Note PATIENT NAME: Martine Landaverde DATE OF SERVICE: May 05, 2024 TIME: 11:36 AM PATIENT IDENTITY VERIFICATION COMPLETED USING TWO (2) IDENTIFIERS: Name and Date of confirmed by patient verbally. FALL SCREENING: Has the patient had 2 falls in the last year or 1 fall with injury or currently using an Ambulatory Assistive Device (Walker, Cane, Wheelchair, Crutches, etc.)? No PATIENT GENDER DATA: Assigned female at . status: : No status: NO. PATIENT RELEVANT IMPLANT DATA REVIEWED: Not Applicable PATIENT PRESENTS WITH AN IMPLANTABLE OR ATTACHED EXECUTIVE SEARCH CONSULTANT: No RADIOLOGY DEPARTMENT: Mammography PERIPHERAL IV DATA: Not applicable SIGNED BY: Ayaka Dunlap [employer] May 05, 2024 11:36 [facility]01-31-2025 NoteHNO ID: [id number] Author: BETSY MOLINA RT(R) Service: ? Author Type: Technologist Type: Progress Notes Filed: 05/05/2024 11:36 Note Text: Radiology Service Progress Note PATIENT NAME: Martine Landaverde DATE OF SERVICE: May 05, 2024 TIME: 11:36 AM PATIENT IDENTITY VERIFICATION COMPLETED USING TWO (2) IDENTIFIERS: Name and Date of confirmed by patient verbally. FALL SCREENING: Has the patient had 2 falls in the last year or 1 fall with injury or currently using an Ambulatory Assistive Device (Walker, Cane, Wheelchair, Crutches, etc.)? No PATIENT GENDER DATA: Assigned female at . status: : No status: NO. PATIENT RELEVANT IMPLANT DATA REVIEWED: Not Applicable PATIENT PRESENTS WITH AN IMPLANTABLE OR ATTACHED EXECUTIVE SEARCH CONSULTANT: No RADIOLOGY DEPARTMENT: Mammography PERIPHERAL IV DATA: Not applicable SIGNED BY: RT Rolando(R) May 05, 2024 11:36 [facility]01-03-2025 Telephone encounter Note* Telephone Encounter - Eriberto Tovar MD - 04/07/2024 1:40 AM EST The following approved medication requests have been transmitted electronically. Requested Prescriptions Signed Prescriptions Disp Refills gabapentin (NEURONTIN) 400 mg capsule 360 capsule 1 Sig: Take 1 capsule by mouth four times daily for 180 days. as directed Authorizing Provider: ERIBERTO TOVAR MD [facility]01-03-[facility]25 Miscellaneous Notes* Telephone Encounter - Eriberto Tovar MD - 04/07/2024 1:40 AM EST The following approved medication requests have been transmitted electronically. Requested Prescriptions Signed Prescriptions Disp Refills gabapentin (NEURONTIN) 400 mg capsule 360 capsule 1 Sig: Take 1 capsule by mouth four times daily for 180 days. as directed Authorizing Provider: ERIBERTO TOVAR MD * Telephone Encounter - Yasmeen Silverman LPN - 04/06/2024 11:41 AM EST Prescription Refill Information The patient has been identified by name and date of : Yes Caregiver verified no other encounters exist for this prescription request: Yes Caregiver confirmed with patient/requestor that no other refills are due, in the near future, with this provider at this time: Yes The last office visit in the department: 03/14/24 Does the patient have a future office visit with this provider/department: Yes Requested Prescriptions Pending Prescriptions Disp Refills gabapentin (NEURONTIN) 400 mg capsule 360 capsule 1 Sig: Take 1 capsule by mouth four times daily for 180 days. as directed Yasmeen Silverman LPN April 06, 2024 11:41 AM documented in this encounterSal[facility]01-[facility]-2025 Telephone encounter Note * Telephone Encounter - Yasmeen Silverman LPN - 04/06/2024 11:41 AM EST Prescription Refill Information The patient has been identified by name and date of : Yes Caregiver verified no other encounters exist for this prescription request: Yes Caregiver confirmed with patient/requestor that no other refills are due, in the near future, with this provider at this time: Yes The last office visit in the department: 03/14/24 Does the patient have a future office visit with this provider/department: Yes Requested Prescriptions Pending Prescriptions Disp Refills gabapentin (NEURONTIN) 400 mg capsule 360 capsule 1 Sig: Take 1 capsule by mouth four times daily for 180 days. as directed Yasmeen Silverman LPN April 06, 2024 11:41 AM [facility]12-10-[facility] Instructions* Patient Instructions* Eriberto Tovar MD - 03/14/2024 4:40 PM EST - Reduce magnesium intake to one pill at bedtime. - Discontinue B-complex vitamins. - Avoid taking any supplements containing biotin for two weeks before your lab tests. - Schedule and complete lab tests for TSH, T4, T3, B12, and magnesium levels in April or May. - Schedule and complete your annual mammogram. - Schedule a pre-operative evaluation 30 days before your knee replacement surgery on July 17. - Next follow-up appointment is in September. documented in this encounterSal[facility]12-10-2024 NoteHNO ID: [id number] Author: ERIBERTO TOVAR MD Service: ? Author Type: Physician Type: Progress Notes Filed: 03/14/2024 16:44 Note Text: This note was created using [employer]. Subjective Martine Landaverde is a 68 year old female. Patient presents with: F/U 6 months SUBJECTIVE: Martine Landaverde is a 68 year old year old lady here today for 6 month follow up appointment for review of medical conditions. Martine Landaverde is a 68-year-old female with a history of hypercholesterolemia, presenting for a 6-month follow-up. Martine reports recent lab results showing elevated magnesium and vitamin B levels. She has since discontinued her B-complex supplement and reduced her magnesium intake to 250 mg at bedtime. She is also taking calcium supplements. Martine reports a recent anal fissure, which she attributes to insufficient magnesium intake and is now taking a stool softener. She reports experiencing heat intolerance and excessive sweating, particularly on her forehead, over the past few months. 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 She is unable to wear socks or heavy clothing due to the heat. She denies sweating on her feet or hands. Martine also reports unintentional weight loss and persistent fatigue, despite getting good sleep with the help of trazodone. She denies taking any thyroid supplements. Martine reports a recent colonoscopy that was incomplete due to inadequate bowel preparation, despite following the instructions. She is scheduled for a repeat colonoscopy next year and is concerned about having to discontinue diclofenac for 5 days, which she finds painful. Martine also reports a right knee replacement surgery scheduled for July 17 at [facility]. She has declined further COVID-19 vaccinations but has received her flu shot. Martine is due for a mammogram and plans to schedule it soon. She is also seeing a new counselor on March 23. PAST MEDICAL HISTORY Diagnosis Date Chronic fatigue syndrome Depression Dyspareunia 05/23/2012 Generalized anxiety disorder Hx of colonoscopy 01/27/2024 PER LIP NEEDS MAC AND ADULT SCOPE Mitral valve disorders(424.0) Myalgia and myositis, unspecified Obstructive sleep apnea Not treating because of cost Other kyphoscoliosis and scoliosis SPURS/VERTEBRAE Other specified iron deficiency anemias Unspecified sleep apnea Current Outpatient Medications Medication Sig TURMERIC ORAL Take 500 mg by mouth once daily. Turmeric 500mg and black pepper 5mg Zinc Gluconate 100 mg tab Take 2 tablets by mouth once daily. COQ10, UBIQUINOL, ORAL Take 1 tablet by mouth once daily. FERROUS SULFATE ORAL Take 365 mg by mouth once daily. L.acid/L.casei/B.bif/B.jose/FOS (PROBIOTIC BLEND ORAL) Take 175 mg by mouth once daily. clobetasol (TEMOVATE) 0.05 % ointment Apply 1 application to affected area two times a day. aspirin 81 mg cap Take by mouth. lisinopril (PRINIVIL) 10 mg tablet Take 1 tablet by mouth once daily. tiZANidine (ZANAFLEX) 4 mg tablet TAKE 1 TABLET BY MOUTH AT BEDTIME, MAY TAKE DOSE DURING THE DAY NEEDED traMADol (ULTRAM) 50 mg tablet Take 50 mg by mouth two times a day as needed. traZODone (DESYREL) 50 mg tablet Take 0.5-1 tablets by mouth daily at bedtime. rosuvastatin (CRESTOR) 5 mg tablet Take 1 tablet by mouth daily at bedtime. diclofenac, EC, (VOLTAREN) 75 mg EC tablet Take 1 tablet by mouth two times a day. For pain/inflammation. Take with food. gabapentin (NEURONTIN) 400 mg capsule Take 1 capsule by mouth four times daily for 180 days. as directed venlafaxine ER (EFFEXOR XR) 150 mg 24 hr capsule Take 1 capsule by mouth two times a day. CPAP Initiate CPAP @ 9 cm of water with humidification. Mask (per patient preference) optional chin strap (if indicated) , filters, tubing, humidifier and lifetime supplies. fluticasone (FLONASE) 50 mcg/actuation nasal spray Use 2 Sprays in each nostril once daily. (Patient taking differently: Use 2 Sprays in each nostril as needed.) CPAP CHIN STRAP, USED WITH CPAP DEVICE glucosam sul na/chondr galvan a na(GLUCOSAMINE-CHONDROITIN 3X 750 MG-600 MG TAB) Take 1 tablet twice daily. MAGNESIUM OXIDE 500 MG TAB Take 250 mg by mouth once daily. MELATONIN 3 MG TAB Take 10 mg by mouth. nightly cholecalciferol(VITAMIN D-3 1,000 UNIT CHEWABLE TAB) Take 2 tablets daily. methylsulfonylmethane(MSM 1,000 MG TAB) 1 tablet twice daily. VITAMIN E 400 UNIT CAP Take one(1) tablet daily. CALCIUM 600 + D(3) 600 MG-200 UNIT TAB Take one(1) tablet twice daily. MULTIVITAMIN TAB Take one(1) tablet daily. vitamin b complex(B COMPLEX TAB) Take one(1) tablet daily. (Patient not taking: Reported on 03/14/2024) No current facility-administered medications for this visit. Review of Systems Objective BP 118/68 Pulse 81 Temp 36.7 ?C (98 ?F) Resp 16 Wt 75.7 kg (166 lb 14.2 oz) LMP 10/02/2007 SpO2 97% BMI 26.53 (more content not included)... [facility]12-10-2024 History of Present illness Narrative* Eriberto Tovar MD - 03/14/2024 4:10 PM EST This note was created using NoteWriter. Subjective Martine Landaverde is a 68 year old female. Patient presents with: F/U 6 months SUBJECTIVE: Martine Landaverde is a 68 year old year old lady here today for 6 month follow up appointment for review of medical conditions. Martine Landaverde is a 68-year-old female with a history of hypercholesterolemia, presenting for a 6-month follow-up. Martine reports recent lab results showing elevated magnesium and vitamin B levels. She has since discontinued her B-complex supplement and reduced her magnesium intake to 250 mg at bedtime. She is also taking calcium supplements. Martine reports a recent anal fissure, which she attributes to insufficient magnesium intake and is now taking a stool softener. She reports experiencing heat intolerance and excessive sweating, particularly on her forehead, over the past few months. 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 She is unable to wear socks or heavy clothing due to the heat. She denies sweating on her feet or hands. Martine also reports unintentional weight loss and persistent fatigue, despite getting good sleep with the help of trazodone. She denies taking any thyroid supplements. Martine reports a recent colonoscopy that was incomplete due to inadequate bowel preparation, despitefollowing the instructions. She is scheduled for a repeat colonoscopy next year and is concerned about having to discontinue diclofenac for 5 days, which she finds painful. Martine also reports a rightknee replacement surgery scheduled for July 17 at [facility]. She has declined further COVID-19 vaccinations but has received her flu shot. Martine is due for a mammogram and plans to schedule it soon. She is also seeing a new counselor on March 23. PAST MEDICAL HISTORY Diagnosis Date Chronic fatigue syndrome Depression Dyspareunia 05/23/2012 Generalized anxiety disorder Hx of colonoscopy 01/27/2024 PER LIP NEEDS MAC AND ADULT SCOPE Mitral valve disorders(424.0) Myalgia and myositis, unspecified Obstructive sleep apnea Not treating because of cost Other kyphoscoliosis and scoliosis SPURS/VERTEBRAE Other specified iron deficiency anemias Unspecified sleep apnea Current Outpatient Medications Medication Sig TURMERIC ORAL Take 500 mg by mouth once daily. Turmeric 500mg and black pepper 5mg Zinc Gluconate 100 mg tab Take 2 tablets by mouth once daily. COQ10, UBIQUINOL, ORAL Take 1 tablet by mouth once daily. FERROUS SULFATE ORAL Take 365 mg by mouth once daily. L.acid/L.casei/B.bif/B.jose/FOS (PROBIOTIC BLEND ORAL) Take 175 mg by mouth once daily. clobetasol (TEMOVATE) 0.05 % ointment Apply 1 application to affected area two times a day. aspirin 81 mg cap Take by mouth. lisinopril (PRINIVIL) 10 mg tablet Take 1 tablet by mouth once daily. tiZANidine (ZANAFLEX) 4 mg tablet TAKE 1 TABLET BY MOUTH AT BEDTIME, MAY TAKE DOSE DURING THE DAY NEEDED traMADol (ULTRAM) 50 mg tablet Take 50 mg by mouth two times a day as needed. traZODone (DESYREL) 50 mg tablet Take 0.5-1 tablets by mouth daily at bedtime. rosuvastatin (CRESTOR) 5 mg tablet Take 1 tablet by mouth daily at bedtime. diclofenac, EC, (VOLTAREN) 75 mg EC tablet Take 1 tablet by mouth two times a day. For pain/inflammation. Take with food. gabapentin (NEURONTIN) 400 mg capsule Take 1 capsule by mouth four times daily for 180 days. as directed venlafaxine ER (EFFEXOR XR) 150 mg 24 hr capsule Take 1 capsule by mouth two times a day. CPAP Initiate CPAP @ 9 cm of water with humidification. Mask (per patient preference) optional chinstrap (if indicated) , filters, tubing, humidifier and lifetime supplies. fluticasone (FLONASE) 50 mcg/actuation nasal spray Use 2 Sprays in each nostril once daily. (Patient taking differently: Use 2 Sprays in each nostril as needed.) CPAP CHIN STRAP, USED WITH CPAP DEVICE glucosam sul na/chondr galvan a na(GLUCOSAMINE-CHONDROITIN 3X 750 MG-600 MG TAB) Take 1 tablet twice daily. MAGNESIUM OXIDE 500 MG TAB Take 250 mg by mouth once daily. MELATONIN 3 MG TAB Take 10 mg by mouth. nightly cholecalciferol(VITAMIN D-3 1,000 UNIT CHEWABLE TAB) Take 2 tablets daily. methylsulfonylmethane(MSM 1,000 MG TAB) 1 tablet twice daily. VITAMIN E 400 UNIT CAP Take one(1) tablet daily. CALCIUM 600 + D(3) 600 MG-200 UNIT TAB Take one(1) tablet twice daily. MULTIVITAMIN TAB Take one(1) tablet daily. vitamin b complex(B COMPLEX TAB) Take one(1) tablet daily. (Patient not taking: Reported on 03/14/2024) No current facility-administered medications for this visit. Review of Systems Objective BP 118/68 Pulse 81 Temp 36.7 C (98 F) Resp 16 Wt 75.7 kg (166 lb 14.2 oz) LMP 10/02/2007 SpO2 97% BMI 26.53 kg/m Last 5 Encounter Wt Readings: Date: Wt: 03/14/2024 75.7 kg (166 lb 14.2 oz) 02/28/2024 74.8 kg (164 lb 14.5 oz) 02/28/2024 75.2 kg (165 lb 12.8 oz) 01/27/2024 78.6 kg (173 lb 4.5 oz) 01/20/2024 76.7 kg (169 lb 1.5 oz) No waist measurement recorded Estimated body mass index is 26.53 kg/m as calculated from the following: Height as of 12/15/23: 168.9 cm (5' 6.5). Weight as of this encounter: 75.7 kg (166 lb 14.2 oz). Last 5 Encounter BP Readings: Date: BP: 03/14/2024 118/68 02/28/2024 108/60 02/28/2024 102/62 01/27/2024 117/61 01/20/2024 129/73 Physical Exam Constitutional: Appearance: Normal appearance. HENT: Head: Normocephalic. Eyes: Conjunctiva/sclera: Conjunctivae normal. Cardiovascular: Rate and Rhythm: Normal rate and regular rhythm. Heart sounds: Normal heart sounds. Pulmonary: Effort: Pulmonary effort is normal. Breath sounds: Normal breath sounds. Skin: General: Skin is warm and dry. Neurological: General: No focal deficit present. Mental Status: She is alert and oriented to person, place, and time. Psychiatric: Mood and Affect: Mood normal. Behavior: Behavior normal. Thought Content: Thought content normal. Judgment: Judgment normal. Latest Ref Rng 12/15/2022 06/11/2023 12/27/2023 02/24/2024 02/28/2024 WBC 3.70 - 11.00 k/uL 6.87 7.41 10.85 RBC 3.90 - 5.20 m/uL 5.03 4.69 5.10 Hemoglobin 11.5 - 15.5 g/dL 11.7 11.1 (L) 12.1 Hematocrit 36.0 - 46.0 % 39.5 35.9 (L) 38.7 MCV 80.0 - 100.0 fL 78.5 (L) 76.5 (L) 75.9 (L) MCH 26.0 - 34.0 pg 23.3 (L) 23.7 (L) 23.7 (L) MCHC 30.5 - 36.0 g/dL 29.6 (L) 30.9 31.3 RDW-CV 11.5 - 15.0 % 14.2 13.9 13.8 Platelet Count 150 - 400 k/uL 430 (H) 318 381 MPV 9.0 - 12.7 fL 9.1 8.4 (L) 8.4 (L) Neut% % 54.1 Abs Neut (ANC) 1.45 - 7.50 k/uL 3.72 Lymph% % 34.4 Abs Lymph 1.00 - 4.00 k/uL 2.36 Nolan% % 9.5 Abs Nolan <0.87 k/uL 0.65 Eosin% % 1.5 Abs Eosin <0.46 k/uL 0.10 Baso% % 0.4 Abs Baso <0.11 k/uL 0.03 Immature Gran % % 0.1 IMMATURE GRANS (ABS) <0.10 k/uL <0.03 NRBC /100 WBC 0.0 Absolute nRBC <0.01 k/uL <0.01 <0.01 <0.01 DTYPE Auto Protein, Total 6.3 - 8.0 g/dL 6.7 6.7 7.0 Albumin 3.9 - 4.9 g/dL 4.4 4.3 4.5 Calcium 8.5 - 10.2 mg/dL 9.7 9.5 9.6 Bilirubin, Total 0.2 - 1.3 mg/dL 0.2 0.3 <0.2 (L) Alkaline Phosphatase 34 - 123 U/L 84 85 88 AST 13 - 35 U/L 18 16 19 ALT 7 - 38 U/L 20 17 25 Glucose 74 - 99 mg/dL 80 94 102 (H) BUN 7 - 21 mg/dL 16 15 13 Creatinine 0.58 - 0.96 mg/dL 0.91 0.87 0.98 (H) Sodium 136 - 144 mmol/L 143 138 138 Potassium 3.7 - 5.1 mmol/L 4.3 3.9 4.6 Chloride 98 - 107 mmol/L 105 104 102 CO2 22 - 30 mmol/L 25 24 25 Anion Gap 8 - 15 mmol/L 13 10 11 eGFR >=60 mL/min/1.73m 69 73 63 Cholesterol, Total <200 mg/dL 250 (H) 224 (H) 152 Triglyceride <150 mg/dL 178 (H) 191 (H) 141 HDL Cholesterol >39 mg/dL 43 43 43 Non HDL Cholesterol <130 mg/dL 207 (H) 181 (H) 109 Fasting Time hrs 12 12 13 VLDL Cholesterol <30 mg/dL 36 (H) 38 (H) 28 TC:HDL Ratio <5.10 5.81 (H) 5.21 (H) 3.53 LDL Cholesterol <100 mg/dL 171 (H) 143 (H) 81 LDL:HDL Ratio <2.54 3.98 (H) 3.33 (H) 1.88 Iron 41 - 186 ug/dL 105 TIBC 232 - 386 ug/dL 304 Transferrin Saturation 15.0 - 57.0 % 34.5 Hemoglobin A1C 4.3 - 5.6 % 5.5 Estimated Average Glucose mg/dL 111 TSH 0.270 - 4.200 mIU/L 1.740 1.560 Vitamin D 25 Hydroxy 31.0 - 80.0 ng/mL 50.4 Magnesium 1.7 - 2.3 mg/dL 2.5 (H) Vitamin B12 232 - 1,245 pg/mL 1,671 (H) Ferritin 14.7 - 205.1 ng/mL 223.0 (H) Free T3 2.3 - 4.1 pg/mL 5.4 (H) (C) Free T4 0.9 - 1.7 ng/dL 1.8 (H) Legend: (L) Low (H) High (C) Corrected Assessment and Plan # Heat intolerance (R68.89) # Elevated serum free T4 level (R79.89) # High serum triiodothyronine (T3) (R79.89) - Experiencing significant heat intolerance, wearing light clothing and avoiding socks due to feeling excessively hot. - Recent labs show slightly elevated T4 and T3 levels with a normal TSH of 1.56. - Discussed potential for hyperthyroidism; TSH should be suppressed if T4 and T3 are high. - Ordered repeat TSH, free T4, and free T3 levels to be checked in 4 weeks. - Advised to discontinue any supplements containing biotin 2 weeks prior to lab tests as it can interfere with thyroid function tests. - Will reassess lab results to determine if referral to endocrinology is necessary. # Chronic fatigue (R53.82) - Persistent fatigue despite adequate sleep with trazodone. - Will monitor thyroid function tests as potential contributor to fatigue. # Hypermagnesemia (E83.41) - Recent labs showed elevated magnesium levels. - Reduced magnesium supplementation to 250 mg at bedtime. - Ordered repeat magnesium level to be checked in 4 weeks. # Postmenopausal (Z78.0) - Discussed that postmenopausal status can contribute to changes in thermoregulation. - Advised on lifestyle modifications to manage heat intolerance, such as wearing layers and using fans. # High serum vitamin B12 (R79.89) - Recent labs showed elevated B12 levels. - Discontinued B-complex supplement. - Ordered repeat B12 level to be checked in 4 weeks. # Vitamin D deficiency (E55.9) - Recent labs show adequate vitamin D levels. - Continue current vitamin D supplementation. # Primary hypertension (I10) - Blood pressure well-controlled on current medication regimen. - Continue current antihypertensive therapy. # Mixed hyperlipidemia (E78.2) - Managed with Crestor; patient reports occasional difficulty swallowing due to small pill size. - Advised to ensure medication is taken as prescribed. I spent a total of 33 minutes on the date of the service which included [id number] patient care, completing clinical documentation, obtaining and/or reviewing separately obtained history, performing a medically appropriate examination, counseling and educating the patient/family/caregiver, ordering medications, tests, or procedures, independently interpreting results (not separately reported), and communicating results to the patient/family/caregiver. Eriberto Tovar MD [facility] Telephone encounter Note * Telephone Encounter - Radha Han LPN - 03/10/2024 3:55 PM EST Patient notified of providers message and verbalized understanding [facility]12-[facility] Miscellaneous Notes* Telephone Encounter - Radha Han LPN - 03/10/2024 3:55 PM EST Patient notified of providers message and verbalized understanding * Telephone Encounter - Sanjay Yates APRN.BALWINDER - 03/10/2024 12:20 PM EST What did she reduce magnesium to? Med list shows Mag oxide 500 mg BID. If just taking one per day she can increase to 1.5 per day. For constipation recommend sufficient fluids, increased fiber intake, can add Miralax once or twicedaily as needed for constipation. Use clobetasol cream BID. Route back if needed * Telephone Encounter - Manda Welch RN - 03/10/2024 11:44 AM EST Patient calls to report that since magnesium was elevated at 2.5 on 02/28/2024. Thought it was contributing to heat intolerance and instructed to reduce dosage she is now having trouble with constipation that is causing her Lichen sclerosus to act up with some soreness and tearing around the rectumwhen she bears down . Patient is asking since reducing magnesium, Could she increase metamucil to two scoops or twice daily? Patient is treated with clobetasol and SHARI through [employer] MANAGER for the Lichen sclerosus. Reviewed care advice. Patient has glycerin suppositories at home as well. Recommended she try one of those if she continues to have trouble that is causing pressure and skin issues. Patient also drinking increased water and walking as much as she can but area is rather painful. Patient requests call back at [phone] Manda Welch RN documented [facility] Telephone encounter Note * Telephone Encounter - Sanjay Yates APRN.CNS - 03/10/2024 12:20 PM EST What did she reduce magnesium to? Med list shows Mag oxide 500 mg BID. If just taking one per day she can increase to 1.5 per day. For constipation recommend sufficient fluids, increased fiber intake, can add Miralax once or twicedaily as needed for constipation. Use clobetasol cream BID. Route back if needed [facility]12-06-2024 Telephone encounter Note* Telephone Encounter - Manda Welch RN - 03/10/2024 11:44 AM EST Patient calls to report that since magnesium was elevated at 2.5 on 02/28/2024. Thought it was contributing to heat intolerance and instructed to reduce dosage she is now having trouble with constipation that is causing her Lichen sclerosus to act up with some soreness and tearing around the rectumwhen she bears down . Patient is asking since reducing magnesium, Could she increase metamucil to two scoops or twice daily? Patient is treated with clobetasol and SHARI through [employer] MANAGER for the Lichen sclerosus. Reviewed care advice. Patient has glycerin suppositories at home as well. Recommended she try one of those if she continues to have trouble that is causing pressure and skin issues. Patient also drinking increased water and walking as much as she can but area is rather painful. Patient requests call back at [phone] Manda Welch RN [facility]12-04-2024 Telephone encounter Note* Telephone Encounter - Merly Izquierdo APRN.CNP - 03/08/2024 2:20 PM EST Noted Merly Izquierdo APRN.CNP [facility] Work Phone: [phone]) 101-534212-04-2024 Miscellaneous Notes* Telephone Encounter - Merly Izquierdo APRN.CNP - 03/08/2024 2:20 PM EST Noted Merly M Christofer, [employer] ROOM OPERATOR.BODY TEAM MEMBER * Telephone Encounter - Rossy Mendoza LPN - 03/01/2024 4:03 PM EST Doe Obando (unsure of spelling) called form [facility] with a correction on the Free T3. It was resulted as 6.1 but the corrected result is 5.4. documented in [facility]11[facility] Telephone encounter Note * Telephone Encounter - Rossy Mendoza LPN - 03/01/2024 4:03 PM EST Doe Obando (unsure of spelling) called form [facility] with a correction on the Free T3. It was resulted as 6.1 but the corrected result is 5.4. [facility]11-25-2024 NoteHNO ID: [id number] Author: RICHY DOMINGUEZ APRN.CHERIE Service: ? Author Type: Nurse Practitioner Type: Progress Notes Filed: 02/28/2024 16:02 Note Text: SUBJECTIVE Martine Landaverde is a 68 year old female here today for acute concern. Chief Complaint Patient presents with: Weight Loss: and states feeling hot all the time HPI Martine Landaverde is a 68 year old female. She is an established patient of Eriberto Tovar MD. Here today for concerns of being hot all the time, feels overheated. Not really a hot flash, lasts for a long period of time. Has lost some weight but not trying, about 10 pounds. No polyuria, polyphagia or polydipsia. Sleep is good. No medication changes recently. No vaginal bleeding or spotting issues. Her medications were reviewed today and her list is now up to date. Medications Current Outpatient Medications Medication Sig clobetasol (TEMOVATE) 0.05 % ointment Apply 1 application to affected area two times a day. aspirin 81 mg cap Take by mouth. lisinopril (PRINIVIL) 10 mg tablet Take 1 tablet by mouth once daily. tiZANidine (ZANAFLEX) 4 mg tablet TAKE 1 TABLET BY MOUTH AT BEDTIME, MAY TAKE DOSE DURING THE DAY NEEDED traMADol (ULTRAM) 50 mg tablet Take 50 mg by mouth two times a day as needed. traZODone (DESYREL) 50 mg tablet Take 0.5-1 tablets by mouth daily at bedtime. rosuvastatin (CRESTOR) 5 mg tablet Take 1 tablet by mouth daily at bedtime. diclofenac, EC, (VOLTAREN) 75 mg EC tablet Take 1 tablet by mouth two times a day. For pain/inflammation. Take with food. gabapentin (NEURONTIN) 400 mg capsule Take 1 capsule by mouth four times daily for 180 days. as directed venlafaxine ER (EFFEXOR XR) 150 mg 24 hr capsule Take 1 capsule by mouth two times a day. fluticasone (FLONASE) 50 mcg/actuation nasal spray Use 2 Sprays in each nostril once daily. glucosam sul na/chondr galvan a na(GLUCOSAMINE-CHONDROITIN 3X 750 MG-600 MG TAB) Take 1 tablet twice daily. MAGNESIUM OXIDE 500 MG TAB Take 1 tablet twice daily. MELATONIN 3 MG TAB Take 10 mg by mouth. nightly cholecalciferol(VITAMIN D-3 1,000 UNIT CHEWABLE TAB) Take 2 tablets daily. methylsulfonylmethane(MSM 1,000 MG TAB) 1 tablet twice daily. vitamin b complex(B COMPLEX TAB) Take one(1) tablet daily. VITAMIN E 400 UNIT CAP Take one(1) tablet daily. CALCIUM 600 + D(3) 600 MG-200 UNIT TAB Take one(1) tablet twice daily. MULTIVITAMIN TAB Take one(1) tablet daily. CPAP Initiate CPAP @ 9 cm of water with humidification. Mask (per patient preference) optional chin strap (if indicated) , filters, tubing, humidifier and lifetime supplies. CPAP CHIN STRAP, USED WITH CPAP DEVICE No current facility-administered medications for this visit. ALLERGIES Allergen Reactions Sulfa (Sulfonamide * Hives ACTIVE PROBLEM LIST Screen for Colon Cancer - 01/27/2024 Moderate Recurrent Major Depression (Hcc) - 07/13/2023 Generalized Anxiety Disorder Obstructive Sleep Apnea Comment: DISHA Moss (F) [phone] (p) [phone] [facility] for compliance report Dyspareunia - 05/23/2012 Bunion - 12/10/2009 Degeneration of Intervertebral Disc, Site Unspecified - 06/04/2008 Fibromyalgia - 06/01/2008 Insomnia, Unspecified - 06/01/2008 Chronic Fatigue - 06/01/2008 Anemia, Unspecified - 06/01/2008 Social History Tobacco Use Smoking status: Never Smokeless tobacco: Never Vaping Use Vaping status: Never Used Substance Use Topics Alcohol use: No Drug use: No Review of Systems Respiratory: Negative. Cardiovascular: Negative. Gastrointestinal: Negative. Endocrine: Positive for heat intolerance. Negative for cold intolerance, polydipsia, polyphagia and polyuria. OBJECTIVE BP 108/60 Pulse 94 Wt 164 lb 14.5 oz (74.8kg) SpO2 98% LMP 10/02/2007 Physical Exam Vitals and nursing note reviewed. Constitutional: General: She is awake. She is not in acute distress. Appearance: Normal appearance. She is well-developed and well-groomed. She is not ill-appearing, toxic-appearing or diaphoretic. HENT: Head: Normocephalic. Right Ear: External ear normal. Left Ear: External ear normal. Nose: Nose normal. Eyes: General: Vision grossly intact. Conjunctiva/sclera: Conjunctivae normal. Pupils: Pupils are equal, round, and reactive to light. Neck: Vascular: No JVD. Trachea: Trachea normal. Cardiovascular: Rate and Rhythm: Normal rate and regular rhythm. Pulses: Normal pulses. Heart sounds: Normal heart sounds. No murmur heard. Pulmonary: Effort: Pulmonary effort is normal. No accessory muscle usage, prolonged expiration or respiratory distress. Breath sounds: Normal breath sounds. Musculoskeletal: Cervical back: Neck supple. Skin: General: Skin is warm and dry. Capillary Refill: Capillary refill takes less than 2 seconds. Neurological: General: No focal deficit present. Mental Status: She is alert and oriented to person, place, and time. Mental status is at baselin (more content not included)...[facility] 02-28-2024 History of Present illness Narrative* Richy Dominguez APRN.CHERIE - 02/28/2024 3:46 PM EST SUBJECTIVE Martine Landaverde is a 68 year old female here today for acute concern. Chief Complaint Patient presents with: Weight Loss: and states feeling hot all the time HPI Martine Landaverde is a 68 year old female. She is an established patient of Eriberto Tovar MD. Here today for concerns of being hot all the time, feels overheated. Not really a hot flash, lasts for a long period of time. Has lost some weight but not trying, about 10 pounds. No polyuria, polyphagia or polydipsia. Sleep is good. No medication changes recently. No vaginal bleeding or spotting issues. Her medications were reviewed today and her list is now up to date. Medications Current Outpatient Medications Medication Sig clobetasol (TEMOVATE) 0.05 % ointment Apply 1 application to affected area two times a day. aspirin 81 mg cap Take by mouth. lisinopril (PRINIVIL) 10 mg tablet Take 1 tablet by mouth once daily. tiZANidine (ZANAFLEX) 4 mg tablet TAKE 1 TABLET BY MOUTH AT BEDTIME, MAY TAKE DOSE DURING THE DAY NEEDED traMADol (ULTRAM) 50 mg tablet Take 50 mg by mouth two times a day as needed. traZODone (DESYREL) 50 mg tablet Take 0.5-1 tablets by mouth daily at bedtime. rosuvastatin (CRESTOR) 5 mg tablet Take 1 tablet by mouth daily at bedtime. diclofenac, EC, (VOLTAREN) 75 mg EC tablet Take 1 tablet by mouth two times a day. For pain/inflammation. Take with food. gabapentin (NEURONTIN) 400 mg capsule Take 1 capsule by mouth four times daily for 180 days. as directed venlafaxine ER (EFFEXOR XR) 150 mg 24 hr capsule Take 1 capsule by mouth two times a day. fluticasone (FLONASE) 50 mcg/actuation nasal spray Use 2 Sprays in each nostril once daily. glucosam sul na/chondr galvan a na(GLUCOSAMINE-CHONDROITIN 3X 750 MG-600 MG TAB) Take 1 tablet twice daily. MAGNESIUM OXIDE 500 MG TAB Take 1 tablet twice daily. MELATONIN 3 MG TAB Take 10 mg by mouth. nightly cholecalciferol(VITAMIN D-3 1,000 UNIT CHEWABLE TAB) Take 2 tablets daily. methylsulfonylmethane(MSM 1,000 MG TAB) 1 tablet twice daily. vitamin b complex(B COMPLEX TAB) Take one(1) tablet daily. VITAMIN E 400 UNIT CAP Take one(1) tablet daily. CALCIUM 600 + D(3) 600 MG-200 UNIT TAB Take one(1) tablet twice daily. MULTIVITAMIN TAB Take one(1) tablet daily. CPAP Initiate CPAP @ 9 cm of water with humidification. Mask (per patient preference) optional chinstrap (if indicated) , filters, tubing, humidifier and lifetime supplies. CPAP CHIN STRAP, USED WITH CPAP DEVICE No current facility-administered medications for this visit. ALLERGIES Allergen Reactions Sulfa (Sulfonamide * Hives ACTIVE PROBLEM LIST Screen for Colon Cancer - 01/27/2024 Moderate Recurrent Major Depression (Hcc) - 07/13/2023 Generalized Anxiety Disorder Obstructive Sleep Apnea Comment: DISHA Marinellijason (F) [phone] (P) [phone] [facility] for compliance report Dyspareunia - 05/23/2012 Bunion - 12/10/2009 Degeneration of Intervertebral Disc, Site Unspecified - 06/04/2008 Fibromyalgia - 06/01/2008 Insomnia, Unspecified - 06/01/2008 Chronic Fatigue - 06/01/2008 Anemia, Unspecified - 06/01/2008 Social History Tobacco Use Smoking status: Never Smokeless tobacco: Never Vaping Use Vaping status: Never Used Substance Use Topics Alcohol use: No Drug use: No Review of Systems Respiratory: Negative. Cardiovascular: Negative. Gastrointestinal: Negative. Endocrine: Positive for heat intolerance. Negative for cold intolerance, polydipsia, polyphagia andpolyuria. OBJECTIVE BP 108/60 Pulse 94 Wt 164 lb 14.5 oz (74.8kg) SpO2 98% LMP 10/02/2007 Physical Exam Vitals and nursing note reviewed. Constitutional: General: She is awake. She is not in acute distress. Appearance: Normal appearance. She is well-developed and well-groomed. She is not ill-appearing, toxic-appearing or diaphoretic. HENT: Head: Normocephalic. Right Ear: External ear normal. Left Ear: External ear normal. Nose: Nose normal. Eyes: General: Vision grossly intact. Conjunctiva/sclera: Conjunctivae normal. Pupils: Pupils are equal, round, and reactive to light. Neck: Vascular: No JVD. Trachea: Trachea normal. Cardiovascular: Rate and Rhythm: Normal rate and regular rhythm. Pulses: Normal pulses. Heart sounds: Normal heart sounds. No murmur heard. Pulmonary: Effort: Pulmonary effort is normal. No accessory muscle usage, prolonged expiration or respiratory distress. Breath sounds: Normal breath sounds. Musculoskeletal: Cervical back: Neck supple. Skin: General: Skin is warm and dry. Capillary Refill: Capillary refill takes less than 2 seconds. Neurological: General: No focal deficit present. Mental Status: She is alert and oriented to person, place, and time. Mental status is at baseline. Psychiatric: Attention and Perception: Attention and perception normal. Mood and Affect: Mood and affect normal. Speech: Speech normal. Behavior: Behavior normal. Behavior is cooperative. Thought Content: Thought content normal. Cognition and Memory: Cognition and memory normal. Judgment: Judgment normal. ASSESSMENT/PLAN: 1. Heat intolerance - ICD9: 780.99, ICD10: R68.89 (primary diagnosis) Check labs for metabolic issues. Decide next steps based on results. - COMPLETE BLOOD COUNT AND DIFFERENTIAL - IRON AND TIBC - COMPREHENSIVE METABOLIC PANEL - THYROID STIMULATING HORMONE - MAGNESIUM - HEMOGLOBIN A1C - VITAMIN B12 - FERRITIN - T3, FREE - T4 FREE/FREE THYROXINE 2. Weight loss, unintentional - ICD9: 783.21, ICD10: R63.4 - THYROID STIMULATING HORMONE - HEMOGLOBIN A1C - T3, FREE - T4 FREE/FREE THYROXINE 3. Encounter for therapeutic drug monitoring - ICD9: V58.83, ICD10: Z51.81 - COMPLETE BLOOD COUNT AND DIFFERENTIAL - COMPREHENSIVE METABOLIC PANEL - MAGNESIUM 4. Chronic fatigue - ICD9: 780.79, ICD10: R53.82 5. Microcytic anemia - ICD9: 280.9, ICD10: D50.9 - COMPLETE BLOOD COUNT AND DIFFERENTIAL - IRON AND TIBC - VITAMIN B12 - FERRITIN 6. Vitamin D deficiency - ICD9: 268.9, ICD10: E55.9 - VITAMIN D 25 HYDROXY 7. Encounter for screening for diabetes mellitus - ICD9: V77.1, ICD10: Z13.1 - HEMOGLOBIN A1C Portions of this note have been entered by ancillary staff. I have reviewed and when necessary edited, so that they are an adequate record of my encounter with this patient Please note that parts of this document were created using voice recognition software and therefore may contain grammatical errors. Patient verbalizes understanding of instructions from today's visit and in agreement with treatmentplan. Questions answered. Agrees to call the office if questions, concerns of issues with acute symptoms not improving or if they worsen. See diagnoses and orders for additional plan(s). Allergies and medications were reviewed, list was updated, and refills given if needed. Past medical, surgical, social, and family history reviewed and updated as appropriate. Encouraged proper diet & exercise as well as compliance with taking medications. Age- appropriate health preventative measures were discussed. Return if symptoms worsen or fail to improve, for Keep next scheduled appointment.. GET Rangel [facility] NoteHNO ID: [id number] Author: STANLEY BLAIR APRN.CNM Service: ? Author Type: Field Map Editor Type: Progress Notes Filed: 02/28/2024 14:59 Note Text: Superintendent Drivers offered: Patient declines. Martine Landaverde is a 68 year old female who presents for follow up visit. Diagnosed with LS and continues to treat with clobetasol twice weekly. Recently she noticing soreness and skin tearing around anus. Cannot see in that area an was concerned that LS has gone there. Denies any itching or discharge. Sometimes noticing burning sensation. Treating herself with triple antibiotic ointment. Denies any urinary or stool incontinence. Denies any rash or bumps. Currently sexually active with and no history of HSV. REVIEW OF SYSTEMS Abdomen: No bloating, early satiety, indigestion, or increased flatulence. No abdominal pain, nausea, vomiting, diarrhea, or constipation. Bladder: No dysuria, gross hematuria, urinary frequency, urinary urgency, or incontinence. Breast: No breast lumps, nipple d/c, overlying skin changes, redness or skin retraction. Expanded ROS: N/A Allergies and current medication updated:Yes SENSITIVE EXAM: The sensitive examination was discussed with the Patient or Patient's Authorized Bilingual Secretary. As applicable, any other physician, advance practice provider, medical student, or other health professional student that will be observing or involved in the sensitive examination for educational or training purposes was discussed with the Patient or Authorized Bilingual Secretary. The Patient or Authorized Bilingual Secretary has agreed to proceed with the sensitive examination. (Sensitive examination includes inspection and/or palpation of the breasts, pelvis, prostate and anorectal regions). EXAM: BP 102/62 Wt 165 lb 12.8 oz (75.2kg) LMP 10/02/2007 GENERAL: pleasant, female in no apparent distress HEENT: Normocephalic PELVIC: no vulvar lesions, no cervical lesions, normal appearing perineal body and perianal region Skin to perineum and rectal area appear normal, no erythema. No open areas or sloughing of skin NEURO: alert and oriented x3,exam grossly non-focal EXTREMITIES: normal ASSESSMENT AND PLAN: Assessment AND Plan Lichen sclerosus et atrophicus Orders: clobetasol (TEMOVATE) 0.05 % ointment; Apply 1 application to affected area two times a day. Chafing Continue to use barrier to skin for protection Can place clobetasol to area if needed Keep area clean and dry Notify office of any irregular vaginal discharge or increased pruritus RTO - as needed / yearly exams Stanley Blair APRN.[facility]11-25-2024 History of Present illness Narrative* Stanley Blair APRN.[facility] - 02/28/2024 1:43 PM EST Superintendent Drivers offered: Patient declines. Martine Landaverde is a 68 year old female who presents for follow up visit. Diagnosed with LS and continues to treat with clobetasol twice weekly. Recently she noticing soreness and skin tearing aroundanus. Cannot see in that area an was concerned that LS has gone there. Denies any itching or discharge. Sometimes noticing burning sensation. Treating herself with triple antibiotic ointment. Deniesany urinary or stool incontinence. Denies any rash or bumps. Currently sexually active with husbandand no history of HSV. REVIEW OF SYSTEMS Abdomen: No bloating, early satiety, indigestion, or increased flatulence. No abdominal pain, nausea, vomiting, diarrhea, or constipation. Bladder: No dysuria, gross hematuria, urinary frequency, urinary urgency, or incontinence. Breast: No breast lumps, nipple d/c, overlying skin changes, redness or skin retraction. Expanded ROS: N/A Allergies and current medication updated:Yes SENSITIVE EXAM: The sensitive examination was discussed with the Patient or Patient's Authorized Bilingual Secretary. As applicable, any other physician, advance practice provider, medical student, or other health professional student that will be observing or involved in the sensitive examination for educational or training purposes was discussed with the Patient or Authorized Bilingual Secretary. The Patient or Authorized Bilingual Secretary has agreed to proceed with the sensitive examination. (Sensitive examination includes inspection and/or palpation of the breasts, pelvis, prostate and anorectal regions). EXAM: BP 102/62 Wt 165 lb 12.8 oz (75.2kg) LMP 10/02/2007 GENERAL: pleasant, female in no apparent distress HEENT: Normocephalic PELVIC: no vulvar lesions, no cervical lesions, normal appearing perineal body and perianal region Skin to perineum and rectal area appear normal, no erythema. No open areas or sloughing of skin NEURO: alert and oriented x3,exam grossly non-focal EXTREMITIES: normal ASSESSMENT AND PLAN: Assessment & Plan Lichen sclerosus et atrophicus Orders: clobetasol (TEMOVATE) 0.05 % ointment; Apply 1 application to affected area two times a day. Chafing Continue to use barrier to skin for protection Can place clobetasol to area if needed Keep area clean and dry Notify office of any irregular vaginal discharge or increased pruritus RTO - as needed / yearly exams Stanley Blair APRN.CNM documented [facility]10-24-[facility] Note* Discharge Instr - Nursing - Sakina Lopes RN - 01/27/2024 12:57 PM EDT The patient received a copy of Colonoscopy discharge instructions that contain information for how to contact the physician who performed the procedure and when to seek medical care. [facility]10-[facility] Miscellaneous Notes* Discharge Instr - Nursing - Sakina Lopes RN - 01/27/2024 12:57 PM EDT The patient received a copy of Colonoscopy discharge instructions that contain information for how to contact the physician who performed the procedure and when to seek medical care. documented in this encounterSal[facility]10-24-2024 Nurse Note* Sakina Lopes RN - 01/27/2024 12:52 PM EDT Patient arrived laying on left side. Patient does not appear to be in any pain at this time. Abdomen appears to be nondistended and soft to palpation. Patient encouraged to belch and pass gas as needed. [facility] Nurse Note* Sakina Lopes RN - 01/27/2024 12:52 PM EDT Patient arrived laying on left side. Patient does not appear to be in any pain at this time. Abdomen appears to be nondistended and soft to palpation. Patient encouraged to belch and pass gas as needed. documented in this encounterSal[facility]10-[facility]-2024 History and physical note * Jone Choe MD - 01/27/2024 12:15 PM EDT HISTORY AND PHYSICAL Martine Landaverde : 1955 REFERRING PHYSICIAN: No referring provider defined for this encounter. CHIEF COMPLAINT: Patient presents with: Consult HPI: Martine is a 68 year old female referred for endoscopy. Martine notes due for screening colonoscopy. Martine denies abdominal pain.. Martine denies diarrhea. Martine denies constipation. Martine denies a change in bowel habits. Martine denies melena. Martine denies bright red blood per rectum. Martine denies hemorrhoids. Martine denies heartburn. Martine denies dysphagia. Martine denies a history of ulcers/ peptic ulcer disease. Denies family history of colon issues. Martine has undergone prior endoscopy. Last colonoscopy 12/[address] Shields at [facility]. Sedation received: Midazolam 7 mg IV, Fentanyl 100 micrograms IV Impression: - The entire examined colon is normal. Biopsied. - The distal rectum and anal verge are normal on retroflexion view. CURRENT MEDICATIONS Current Outpatient Medications Medication Sig traMADol (ULTRAM) 50 mg tablet Take 50 mg by mouth two times a day as needed. ferrous sulfate (IRON) 325 mg (65 mg iron) tablet 4 days weekly traZODone (DESYREL) 50 mg tablet Take 0.5-1 tablets by mouth daily at bedtime. rosuvastatin (CRESTOR) 5 mg tablet Take 1 tablet by mouth daily at bedtime. diclofenac, EC, (VOLTAREN) 75 mg EC tablet Take 1 tablet by mouth two times a day. For pain/inflammation. Take with food. gabapentin (NEURONTIN) 400 mg capsule Take 1 capsule by mouth four times daily for 180 days. as directed venlafaxine ER (EFFEXOR XR) 150 mg 24 hr capsule Take 1 capsule by mouth two times a day. clobetasol (TEMOVATE) 0.05 % ointment Apply 1 application to affected area twice daily. TO AFFECTEDAREA as directed. lisinopril (PRINIVIL) 10 mg tablet Take 1 tablet by mouth once daily. tiZANidine (ZANAFLEX) 4 mg tablet TAKE 1 TABLET BY MOUTH AT BEDTIME, MAY TAKE DOSE DURING THE DAY NEEDED CPAP Initiate CPAP @ 9 cm of water with humidification. Mask (per patient preference) optional chinstrap (if indicated) , filters, tubing, humidifier and lifetime supplies. fluticasone (FLONASE) 50 mcg/actuation nasal spray Use 2 Sprays in each nostril once daily. CPAP CHIN STRAP, USED WITH CPAP DEVICE glucosam sul na/chondr galvan a na(GLUCOSAMINE-CHONDROITIN 3X 750 MG-600 MG TAB) Take 1 tablet twice daily. MAGNESIUM OXIDE 500 MG TAB Take 1 tablet twice daily. MELATONIN 3 MG TAB Take 10 mg by mouth. nightly cholecalciferol(VITAMIN D-3 1,000 UNIT CHEWABLE TAB) Take 2 tablets daily. methylsulfonylmethane(MSM 1,000 MG TAB) 1 tablet twice daily. vitamin b complex(B COMPLEX TAB) Take one(1) tablet daily. VITAMIN E 400 UNIT CAP Take one(1) tablet daily. CALCIUM 600 + D(3) 600 MG-200 UNIT TAB Take one(1) tablet twice daily. MULTIVITAMIN TAB Take one(1) tablet daily. No current facility-administered medications for this visit. ALLERGIES: Sulfa (Sulfonamide Antibiotics) PAST MEDICAL HISTORY PAST MEDICAL HISTORY No date: Chronic fatigue syndrome No date: Depression 05/23/2012: Dyspareunia No date: Generalized anxiety disorder No date: Mitral valve disorders(424.0) No date: Myalgia and myositis, unspecified No date: Obstructive sleep apnea Comment: Not treating because of cost No date: Other kyphoscoliosis and scoliosis Comment: SPURS/VERTEBRAE No date: Other specified iron deficiency anemias No date: Unspecified sleep apnea PAST SURGICAL HISTORY PAST SURGICAL HISTORY No date: ARTHRD ANT NTRBD MIN DSC EA ADDL INTERSPACE 10/17/2008: COLONOSCOPY FLX DX W/COLLJ SPEC WHEN PFRMD 12/05/2013: COLONOSCOPY SCREENING Comment: 10 yr interval No date: CORRECT BUNION,SIMPLE Comment: LEFT FOOT X 2 No date: CRYO CAUTERY CERVIX No date: DILATION & CURETTAGE DX&/THER NONOBSTETRIC Comment: Dilation & curettage 10/17/2008: EGD TRANSORAL BIOPSY SINGLE/MULTIPLE Comment: gastritis 03/03/2001: PAST SURGICAL HISTORY OF Comment: 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 FAMILY HISTORY FAMILY HISTORY Problem Relation Age of Onset Alzheimer's Disease Mother Coronary Artery Disease Mother 35 35 at first [place] Ischemic Heart Disease Mother Stroke Mother Coronary Artery Disease Brother 57 2 MIs Breast Cancer Maternal Grandmother Coronary Artery Disease Maternal Grandfather Ischemic Heart Disease Maternal Grandfather Stroke Maternal Grandfather Breast Cancer Paternal Grandmother SOCIAL HISTORY Social History Tobacco Use Smoking status: Never Smokeless tobacco: Never Vaping Use Vaping status: Never Used Substance Use Topics Alcohol use: No Drug use: No REVIEW OF SYMPTOMS: negative except as noted above PHYSICAL EXAMINATION: General: The patient is 68 year old, female well nourished, well hydrated in no acute distress. Thepatient is oriented to time, place, and person. VITALS: Blood pressure 120/82, pulse 100, temperature 36.7 C (98 F), height 168.9 cm (5' 6.5), weight 78.6 kg (173 lb 3.2 oz), last menstrual period 10/02/2007, SpO2 97%. Body mass index is 27.54 kg/m . HEENT: Normal cephalic, ataumatic, pupils are equally round, sclera are anicteric, mucous membranesare moist, oropharynx is clear. Neck has no masses, asymmetry or lymphadenopathy. Respiratory: Clear to auscultation and percussion. Normal respiratory excursion and pattern. Cardiac: Examination is regular rate and rhythm. Normal S1/S2 Abdominal exam: Soft, nontender, with no palpable masses. No hepatosplenomegaly. No palpable hernias. Extremities: no clubbing, cyanosis or edema. No adenopathy. LABORATORY VALUES: As Noted RADIOLOGIC STUDIES: As Noted Assessment IMPRESSION: screen for colon cancer PLAN: I have reviewed my findings with the surgeon. Will plan for lower endoscopy. We discussed therisks and benefits of the planned endoscopy. I have informed the patient that complications can occur including failure to complete the endoscopy and perforation. Martine had the opportunity to ask questions concerning the planned endoscopy. My staff has also explained the procedure to the patient inunderstandable terms and has given the patient printed material concerning the procedure. Martine freely consents to surgery. I plan to use Golytely bowel preparation I have explained to the patient the difference between IV conscious sedation and MAC anesthesia - and I have offered either, according to the patient's wishes. I have explained that with IV conscioussedation there is no anesthesia provider available and therefore there is a limitation of the amount of IV medications that can be given and that the patient may wake up in the middle of the procedure and/or experience pain/discomfort during the procedure. Further discussion was done and the patient was given the opportunity to ask questions and all questions were answered. Martine chooses IV conscious sedation Martine was counseled that if there are changes in his/her medical condition, to let the office know if surgery should proceed. If there are changes in patient's medical condition from time of this encounter to the day of the procedure that preclude anesthesia, patient may have procedure cancelled for patient's safety. Diagnoses: (Z12.11) Screen for colon cancer (primary encounter diagnosis) Portions of this documentation were copied and pasted from previous office visit notes in order to provide a cohesive continuity of the history. The note has been reviewed and edited and updated as necessary. Mayela Luna APRN.CNP UPDATED HISTORY AND PHYSICAL EXAMINATION SERVICE DATE: 01/27/2024 SERVICE TIME: 11:50 AM SENSITIVE EXAMINATION CONSENT: The sensitive examination was discussed with the Patient or Patient's Authorized Bilingual Secretary. Asapplicable, any other physician, advance practice provider, medical student, or other health professional student that will be observing or involved in the sensitive examination for educational or training purposes was discussed with the Patient or Authorized Bilingual Secretary. The Patient or Authorized Bilingual Secretary has agreed to proceed with the sensitive examination. (Sensitive examination includes inspection and/or palpation of the breasts, pelvis, prostate and anorectal regions) PHYSICAL EXAM MUST BE COMPLETED ON ADMISSION The History and Physical (completed in the past 30 days) has been reviewed and the patient has beenexamined. The contents accurately reflect the patient's condition with the following additions or revisions since the H&P was completed. Examination indicates no changes. This H&P can be found in the attached. SIGNATURE: Jone Choe III, MD PATIENT NAME: Martine Landaverde DATE: January 27, 2024 TIME: 11:50 AM [facility] History and physical note* Jone Choe MD - 01/27/2024 12:15 PM EDT HISTORY AND PHYSICAL Martine Landaverde : 1955 REFERRING PHYSICIAN: No referring provider defined for this encounter. CHIEF COMPLAINT: Patient presents with: Consult HPI: Martine is a 68 year old female referred for endoscopy. Martine notes due for screening colonoscopy. Martine denies abdominal pain.. Martine denies diarrhea. Martine denies constipation. Martine denies a change in bowel habits. Martine denies melena. Martine denies bright red blood per rectum. Martine denies hemorrhoids. Martine denies heartburn. Martine denies dysphagia. Martine denies a history of ulcers/ peptic ulcer disease. Denies family history of colon issues. Martine has undergone prior endoscopy. Last colonoscopy 12/[address] Shields at [facility]. Sedation received: Midazolam 7 mg IV, Fentanyl 100 micrograms IV Impression: - The entire examined colon is normal. Biopsied. - The distal rectum and anal verge are normal on retroflexion view. CURRENT MEDICATIONS Current Outpatient Medications Medication Sig traMADol (ULTRAM) 50 mg tablet Take 50 mg by mouth two times a day as needed. ferrous sulfate (IRON) 325 mg (65 mg iron) tablet 4 days weekly traZODone (DESYREL) 50 mg tablet Take 0.5-1 tablets by mouth daily at bedtime. rosuvastatin (CRESTOR) 5 mg tablet Take 1 tablet by mouth daily at bedtime. diclofenac, EC, (VOLTAREN) 75 mg EC tablet Take 1 tablet by mouth two times a day. For pain/inflammation. Take with food. gabapentin (NEURONTIN) 400 mg capsule Take 1 capsule by mouth four times daily for 180 days. as directed venlafaxine ER (EFFEXOR XR) 150 mg 24 hr capsule Take 1 capsule by mouth two times a day. clobetasol (TEMOVATE) 0.05 % ointment Apply 1 application to affected area twice daily. TO AFFECTEDAREA as directed. lisinopril (PRINIVIL) 10 mg tablet Take 1 tablet by mouth once daily. tiZANidine (ZANAFLEX) 4 mg tablet TAKE 1 TABLET BY MOUTH AT BEDTIME, MAY TAKE DOSE DURING THE DAY NEEDED CPAP Initiate CPAP @ 9 cm of water with humidification. Mask (per patient preference) optional chinstrap (if indicated) , filters, tubing, humidifier and lifetime supplies. fluticasone (FLONASE) 50 mcg/actuation nasal spray Use 2 Sprays in each nostril once daily. CPAP CHIN STRAP, USED WITH CPAP DEVICE glucosam sul na/chondr galvan a na(GLUCOSAMINE-CHONDROITIN 3X 750 MG-600 MG TAB) Take 1 tablet twice daily. MAGNESIUM OXIDE 500 MG TAB Take 1 tablet twice daily. MELATONIN 3 MG TAB Take 10 mg by mouth. nightly cholecalciferol(VITAMIN D-3 1,000 UNIT CHEWABLE TAB) Take 2 tablets daily. methylsulfonylmethane(MSM 1,000 MG TAB) 1 tablet twice daily. vitamin b complex(B COMPLEX TAB) Take one(1) tablet daily. VITAMIN E 400 UNIT CAP Take one(1) tablet daily. CALCIUM 600 + D(3) 600 MG-200 UNIT TAB Take one(1) tablet twice daily. MULTIVITAMIN TAB Take one(1) tablet daily. No current facility-administered medications for this visit. ALLERGIES: Sulfa (Sulfonamide Antibiotics) PAST MEDICAL HISTORY PAST MEDICAL HISTORY No date: Chronic fatigue syndrome No date: Depression 05/23/2012: Dyspareunia No date: Generalized anxiety disorder No date: Mitral valve disorders(424.0) No date: Myalgia and myositis, unspecified No date: Obstructive sleep apnea Comment: Not treating because of cost No date: Other kyphoscoliosis and scoliosis Comment: SPURS/VERTEBRAE No date: Other specified iron deficiency anemias No date: Unspecified sleep apnea PAST SURGICAL HISTORY PAST SURGICAL HISTORY No date: ARTHRD ANT NTRBD MIN DSC EA ADDL INTERSPACE 10/17/2008: COLONOSCOPY FLX DX W/COLLJ SPEC WHEN PFRMD 12/05/2013: COLONOSCOPY SCREENING Comment: 10 yr interval No date: CORRECT BUNION,SIMPLE Comment: LEFT FOOT X 2 No date: CRYO CAUTERY CERVIX No date: DILATION & CURETTAGE DX&/THER NONOBSTETRIC Comment: Dilation & curettage 10/17/2008: EGD TRANSORAL BIOPSY SINGLE/MULTIPLE Comment: gastritis 03/03/2001: PAST SURGICAL HISTORY OF Comment: 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 FAMILY HISTORY FAMILY HISTORY Problem Relation Age of Onset Alzheimer's Disease Mother Coronary Artery Disease Mother 35 35 at first [place] Ischemic Heart Disease Mother Stroke Mother Coronary Artery Disease Brother 57 2 MIs Breast Cancer Maternal Grandmother Coronary Artery Disease Maternal Grandfather Ischemic Heart Disease Maternal Grandfather Stroke Maternal Grandfather Breast Cancer Paternal Grandmother SOCIAL HISTORY Social History Tobacco Use Smoking status: Never Smokeless tobacco: Never Vaping Use Vaping status: Never Used Substance Use Topics Alcohol use: No Drug use: No REVIEW OF SYMPTOMS: negative except as noted above PHYSICAL EXAMINATION: General: The patient is 68 year old, female well nourished, well hydrated in no acute distress. Thepatient is oriented to time, place, and person. VITALS: Blood pressure 120/82, pulse 100, temperature 36.7 C (98 F), height 168.9 cm (5' 6.5), weight 78.6 kg (173 lb 3.2 oz), last menstrual period 10/02/2007, SpO2 97%. Body mass index is 27.54 kg/m . HEENT: Normal cephalic, ataumatic, pupils are equally round, sclera are anicteric, mucous membranesare moist, oropharynx is clear. Neck has no masses, asymmetry or lymphadenopathy. Respiratory: Clear to auscultation and percussion. Normal respiratory excursion and pattern. Cardiac: Examination is regular rate and rhythm. Normal S1/S2 Abdominal exam: Soft, nontender, with no palpable masses. No hepatosplenomegaly. No palpable hernias. Extremities: no clubbing, cyanosis or edema. No adenopathy. LABORATORY VALUES: As Noted RADIOLOGIC STUDIES: As Noted Assessment IMPRESSION: screen for colon cancer PLAN: I have reviewed my findings with the surgeon. Will plan for lower endoscopy. We discussed therisks and benefits of the planned endoscopy. I have informed the patient that complications can occur including failure to complete the endoscopy and perforation. Martine had the opportunity to ask questions concerning the planned endoscopy. My staff has also explained the procedure to the patient inunderstandable terms and has given the patient printed material concerning the procedure. Martine freely consents to surgery. I plan to use Golytely bowel preparation I have explained to the patient the difference between IV conscious sedation and MAC anesthesia - and I have offered either, according to the patient's wishes. I have explained that with IV conscioussedation there is no anesthesia provider available and therefore there is a limitation of the amount of IV medications that can be given and that the patient may wake up in the middle of the procedure and/or experience pain/discomfort during the procedure. Further discussion was done and the patient was given the opportunity to ask questions and all questions were answered. Martine chooses IV conscious sedation Martine was counseled that if there are changes in his/her medical condition, to let the office know if surgery should proceed. If there are changes in patient's medical condition from time of this encounter to the day of the procedure that preclude anesthesia, patient may have procedure cancelled for patient's safety. Diagnoses: (Z12.11) Screen for colon cancer (primary encounter diagnosis) Portions of this documentation were copied and pasted from previous office visit notes in order to provide a cohesive continuity of the history. The note has been reviewed and edited and updated as necessary. Mayela Luna APRN.CNP UPDATED HISTORY AND PHYSICAL EXAMINATION SERVICE DATE: 01/27/2024 SERVICE TIME: 11:50 AM SENSITIVE EXAMINATION CONSENT: The sensitive examination was discussed with the Patient or Patient's Authorized Bilingual Secretary. Asapplicable, any other physician, advance practice provider, medical student, or other health professional student that will be observing or involved in the sensitive examination for educational or training purposes was discussed with the Patient or Authorized Bilingual Secretary. The Patient or Authorized Bilingual Secretary has agreed to proceed with the sensitive examination. (Sensitive examination includes inspection and/or palpation of the breasts, pelvis, prostate and anorectal regions) PHYSICAL EXAM MUST BE COMPLETED ON ADMISSION The History and Physical (completed in the past 30 days) has been reviewed and the patient has beenexamined. The contents accurately reflect the patient's condition with the following additions or revisions since the H&P was completed. Examination indicates no changes. This H&P can be found in the attached. SIGNATURE: Jone Choe III, MD PATIENT NAME: Martine Landaverde DATE: January 27, 2024 TIME: 11:50 AM [facility] Instructions* Patient Instructions* Eriberto Tovar MD - 01/20/2024 4:33 PM EDT - Take Diclofenac on the , then discontinue use from the through the . - Take Oxycodone as prescribed, up to every six hours as needed for pain management. - Increase iron supplement intake to daily, and take it with a source of vitamin C (such as orange juice or a vitamin C tablet) to enhance absorption. - Follow up with a CBC (Complete Blood Count) test in one month to monitor anemia. documented in this [facility]10[facility]24 NoteHNO ID: [id number] Author: ERIBERTO TOVAR MD Service: ? Author Type: Physician Type: Progress Notes Filed: 01/20/2024 16:33 Note Text: This note was created using [employer]. Subjective Martine Landaverde is a 68 year old female. Patient presents with: Follow Up SUBJECTIVE: Martine Landaverde is a 68 year old year old lady here today for follow up appointment for review of medical conditions. The patient is a 68-year-old female with a history of arthritis and microcytic anemia, presenting for a medication refill. The patient is scheduled for a colonoscopy next week, followed by surgery on the . She has been advised to discontinue diclofenac starting tomorrow, the , and remain off it until the due to potential blood-thinning effects and concerns about postoperative bruising. She requests a refill of oxycodone, which she previously used for arthritis pain management. While she notes that oxycodone did not significantly alleviate her arthritis pain, it was adequate for managing pain during a similar period when she was off diclofenac. She also reports persistent microcytic anemia despite taking iron supplements four times a week. Recent labs from December show a hemoglobin level of 11.1 g/dL and microcytosis. She has increased her iron intake to daily and inquires about the need for rechecking her levels. She denies taking vitamin C or acidic foods with her iron supplements. 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) Myalgia and myositis, unspecified Obstructive sleep apnea Not treating because of cost Other kyphoscoliosis and scoliosis SPURS/VERTEBRAE Other specified iron deficiency anemias Unspecified sleep apnea Current Outpatient Medications Medication Sig aspirin 81 mg cap Take by mouth. lisinopril (PRINIVIL) 10 mg tablet Take 1 tablet by mouth once daily. tiZANidine (ZANAFLEX) 4 mg tablet TAKE 1 TABLET BY MOUTH AT BEDTIME, MAY TAKE DOSE DURING THE DAY NEEDED traMADol (ULTRAM) 50 mg tablet Take 50 mg by mouth two times a day as needed. ferrous sulfate (IRON) 325 mg (65 mg iron) tablet 4 days weekly (Patient taking differently: Take 325 mg by mouth once daily. 4 days weekly) traZODone (DESYREL) 50 mg tablet Take 0.5-1 tablets by mouth daily at bedtime. rosuvastatin (CRESTOR) 5 mg tablet Take 1 tablet by mouth daily at bedtime. diclofenac, EC, (VOLTAREN) 75 mg EC tablet Take 1 tablet by mouth two times a day. For pain/inflammation. Take with food. venlafaxine ER (EFFEXOR XR) 150 mg 24 hr capsule Take 1 capsule by mouth two times a day. clobetasol (TEMOVATE) 0.05 % ointment Apply 1 application to affected area twice daily. TO AFFECTED AREA as directed. CPAP Initiate CPAP @ 9 cm of water with humidification. Mask (per patient preference) optional chin strap (if indicated) , filters, tubing, humidifier and lifetime supplies. fluticasone (FLONASE) 50 mcg/actuation nasal spray Use 2 Sprays in each nostril once daily. CPAP CHIN STRAP, USED WITH CPAP DEVICE glucosam sul na/chondr galvan a na(GLUCOSAMINE-CHONDROITIN 3X 750 MG-600 MG TAB) Take 1 tablet twice daily. MAGNESIUM OXIDE 500 MG TAB Take 1 tablet twice daily. MELATONIN 3 MG TAB Take 10 mg by mouth. nightly cholecalciferol(VITAMIN D-3 1,000 UNIT CHEWABLE TAB) Take 2 tablets daily. methylsulfonylmethane(MSM 1,000 MG TAB) 1 tablet twice daily. vitamin b complex(B COMPLEX TAB) Take one(1) tablet daily. VITAMIN E 400 UNIT CAP Take one(1) tablet daily. CALCIUM 600 + D(3) 600 MG-200 UNIT TAB Take one(1) tablet twice daily. MULTIVITAMIN TAB Take one(1) tablet daily. gabapentin (NEURONTIN) 400 mg capsule Take 1 capsule by mouth four times daily for 180 days. as directed No current facility-administered medications for this visit. Review of Systems Objective BP 129/73 Pulse 76 Resp 16 Wt 76.7 kg (169 lb 1.5 oz) LMP 10/02/2007 BMI 26.88 kg/m? Last 5 Encounter Wt Readings: Date: Wt: 01/20/2024 76.7 kg (169 lb 1.5 oz) 12/15/2023 78.6 kg (173 lb 3.2 oz) 11/24/2023 79 kg (174 lb 2.6 oz) 09/03/2023 78.9 kg (174 lb) 12/18/2022 83 kg (183 lb) No waist measurement recorded Estimated body mass index is 26.88 kg/m? as calculated from the following: Height as of 12/15/23: 168.9 cm (5' 6.5). Weight as of this encounter: 76.7 kg (169 lb 1.5 oz). Last 5 Encounter BP Readings: Date: BP: 01/20/2024 129/73 12/15/2023 120/82 11/24/2023 114/62 09/03/2023 120/70 12/18/2022 122/68 Physical Exam Constitutional: Appearance: Normal appearance. Eyes: Conjunctiva/sclera: Conjunctivae normal. Pulmonary: Effort: Pulmonary effort is normal. Neurological: General: No focal deficit present. Mental Status: She is alert and oriented to person, place, and time. Psychiatric: Mood and Affect: Mood normal. Behavior: Behavior normal. Thought Content: Though (more content not included)...[facility] 01-20-2024 History of Present illness Narrative* Eriberto Tovar MD - 01/20/2024 4:14 PM EDT This note was created using [email or web address]. Subjective Martine Landaverde is a 68 year old female. Patient presents with: Follow Up SUBJECTIVE: Martine Landaverde is a 68 year old year old lady here today for follow up appointment for review of medical conditions. The patient is a 68-year-old female with a history of arthritis and microcytic anemia, presenting for a medication refill. The patient is scheduled for a colonoscopy next week, followed by surgery onthe . She has been advised to discontinue diclofenac starting tomorrow, the , and remain off it until the due to potential blood-thinning effects and concerns about postoperative bruising. She requests a refill of oxycodone, which she previously used for arthritis pain management. While she notes that oxycodone did not significantly alleviate her arthritis pain, it was adequate for managing pain during a similar period when she was off diclofenac. She also reports persistent microcytic anemia despite taking iron supplements four times a week. Recent labs from December show a hemoglobin level of 11.1 g/dL and microcytosis. She has increased her iron intake to daily and inquires about the need for rechecking her levels. She denies taking vitamin C or acidic foods with her iron supplements. 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) Myalgia and myositis, unspecified Obstructive sleep apnea Not treating because of cost Other kyphoscoliosis and scoliosis SPURS/VERTEBRAE Other specified iron deficiency anemias Unspecified sleep apnea Current Outpatient Medications Medication Sig aspirin 81 mg cap Take by mouth. lisinopril (PRINIVIL) 10 mg tablet Take 1 tablet by mouth once daily. tiZANidine (ZANAFLEX) 4 mg tablet TAKE 1 TABLET BY MOUTH AT BEDTIME, MAY TAKE DOSE DURING THE DAY NEEDED traMADol (ULTRAM) 50 mg tablet Take 50 mg by mouth two times a day as needed. ferrous sulfate (IRON) 325 mg (65 mg iron) tablet 4 days weekly (Patient taking differently: Take 325 mg by mouth once daily. 4 days weekly) traZODone (DESYREL) 50 mg tablet Take 0.5-1 tablets by mouth daily at bedtime. rosuvastatin (CRESTOR) 5 mg tablet Take 1 tablet by mouth daily at bedtime. diclofenac, EC, (VOLTAREN) 75 mg EC tablet Take 1 tablet by mouth two times a day. For pain/inflammation. Take with food. venlafaxine ER (EFFEXOR XR) 150 mg 24 hr capsule Take 1 capsule by mouth two times a day. clobetasol (TEMOVATE) 0.05 % ointment Apply 1 application to affected area twice daily. TO AFFECTEDAREA as directed. CPAP Initiate CPAP @ 9 cm of water with humidification. Mask (per patient preference) optional chinstrap (if indicated) , filters, tubing, humidifier and lifetime supplies. fluticasone (FLONASE) 50 mcg/actuation nasal spray Use 2 Sprays in each nostril once daily. CPAP CHIN STRAP, USED WITH CPAP DEVICE glucosam sul na/chondr galvan a na(GLUCOSAMINE-CHONDROITIN 3X 750 MG-600 MG TAB) Take 1 tablet twice daily. MAGNESIUM OXIDE 500 MG TAB Take 1 tablet twice daily. MELATONIN 3 MG TAB Take 10 mg by mouth. nightly cholecalciferol(VITAMIN D-3 1,000 UNIT CHEWABLE TAB) Take 2 tablets daily. methylsulfonylmethane(MSM 1,000 MG TAB) 1 tablet twice daily. vitamin b complex(B COMPLEX TAB) Take one(1) tablet daily. VITAMIN E 400 UNIT CAP Take one(1) tablet daily. CALCIUM 600 + D(3) 600 MG-200 UNIT TAB Take one(1) tablet twice daily. MULTIVITAMIN TAB Take one(1) tablet daily. gabapentin (NEURONTIN) 400 mg capsule Take 1 capsule by mouth four times daily for 180 days. as directed No current facility-administered medications for this visit. Review of Systems Objective BP 129/73 Pulse 76 Resp 16 Wt 76.7 kg (169 lb 1.5 oz) LMP 10/02/2007 BMI 26.88 kg/m Last 5 Encounter Wt Readings: Date: Wt: 01/20/2024 76.7 kg (169 lb 1.5 oz) 12/15/2023 78.6 kg (173 lb 3.2 oz) 11/24/2023 79 kg (174 lb 2.6 oz) 09/03/2023 78.9 kg (174 lb) 12/18/2022 83 kg (183 lb) No waist measurement recorded Estimated body mass index is 26.88 kg/m as calculated from the following: Height as of 12/15/23: 168.9 cm (5' 6.5). Weight as of this encounter: 76.7 kg (169 lb 1.5 oz). Last 5 Encounter BP Readings: Date: BP: 01/20/2024 129/73 12/15/2023 120/82 11/24/2023 114/62 09/03/2023 120/70 12/18/2022 122/68 Physical Exam Constitutional: Appearance: Normal appearance. Eyes: Conjunctiva/sclera: Conjunctivae normal. Pulmonary: Effort: Pulmonary effort is normal. Neurological: General: No focal deficit present. Mental Status: She is alert and oriented to person, place, and time. Psychiatric: Mood and Affect: Mood normal. Behavior: Behavior normal. Thought Content: Thought content normal. Judgment: Judgment normal. Latest Ref Rng 12/15/2022 06/11/2023 12/27/2023 WBC 3.70 - 11.00 k/uL 6.87 7.41 RBC 3.90 - 5.20 m/uL 5.03 4.69 Hemoglobin 11.5 - 15.5 g/dL 11.7 11.1 (L) Hematocrit 36.0 - 46.0 % 39.5 35.9 (L) MCV 80.0 - 100.0 fL 78.5 (L) 76.5 (L) MCH 26.0 - 34.0 pg 23.3 (L) 23.7 (L) MCHC 30.5 - 36.0 g/dL 29.6 (L) 30.9 RDW-CV 11.5 - 15.0 % 14.2 13.9 Platelet Count 150 - 400 k/uL 430 (H) 318 MPV 9.0 - 12.7 fL 9.1 8.4 (L) Neut% % 54.1 Abs Neut (ANC) 1.45 - 7.50 k/uL 3.72 Lymph% % 34.4 Abs Lymph 1.00 - 4.00 k/uL 2.36 Nolan% % 9.5 Abs Nolan <0.87 k/uL 0.65 Eosin% % 1.5 Abs Eosin <0.46 k/uL 0.10 Baso% % 0.4 Abs Baso <0.11 k/uL 0.03 Immature Gran % % 0.1 IMMATURE GRANS (ABS) <0.10 k/uL <0.03 NRBC /100 WBC 0.0 Absolute nRBC <0.01 k/uL <0.01 <0.01 DTYPE Auto Protein, Total 6.3 - 8.0 g/dL 6.7 6.7 Albumin 3.9 - 4.9 g/dL 4.4 4.3 Calcium 8.5 - 10.2 mg/dL 9.7 9.5 Bilirubin, Total 0.2 - 1.3 mg/dL 0.2 0.3 Alkaline Phosphatase 34 - 123 U/L 84 85 AST 13 - 35 U/L 18 16 ALT 7 - 38 U/L 20 17 Glucose 74 - 99 mg/dL 80 94 BUN 7 - 21 mg/dL 16 15 Creatinine 0.58 - 0.96 mg/dL 0.91 0.87 Sodium 136 - 144 mmol/L 143 138 Potassium 3.7 - 5.1 mmol/L 4.3 3.9 Chloride 98 - 107 mmol/L 105 104 CO2 22 - 30 mmol/L 25 24 Anion Gap 8 - 15 mmol/L 13 10 eGFR >=60 mL/min/1.73m 69 73 Cholesterol, Total <200 mg/dL 250 (H) 224 (H) 152 Triglyceride <150 mg/dL 178 (H) 191 (H) 141 HDL Cholesterol >39 mg/dL 43 43 43 Non HDL Cholesterol <130 mg/dL 207 (H) 181 (H) 109 Fasting Time hrs 12 12 13 VLDL Cholesterol <30 mg/dL 36 (H) 38 (H) 28 TC:HDL Ratio <5.10 5.81 (H) 5.21 (H) 3.53 LDL Cholesterol <100 mg/dL 171 (H) 143 (H) 81 LDL:HDL Ratio <2.54 3.98 (H) 3.33 (H) 1.88 TSH 0.270 - 4.200 mIU/L 1.740 Legend: (L) Low (H) High Assessment and Plan # Chronic bilateral low back pain without sciatica (M54.50) # Chronic pain of both knees (M25.561) - Scheduled for surgery on the ; will be off diclofenac from the to the due to its anticoagulant properties. - Previous oxycodone prescription provided minimal relief; reordered oxycodone 5 mg, increased frequency to q6h prn for severe arthritis pain during the two- week period off diclofenac. - Prescription sent to [facility] (T/A). # Microcytic anemia (D50.9) - Recent labs show hemoglobin at 11.1 g/dL with microcytic indices. - Increased iron supplementation to daily dosing. - Educated on enhancing iron absorption by taking with vitamin C or acidic foods; advised to avoid dairy products during iron intake. - Ordered repeat CBC in one month to monitor response to increased iron supplementation. # Fibromyalgia (M79.7) - No acute issues discussed during this visit. # Mixed hyperlipidemia (E78.2) - Recent lipid panel shows significant improvement: LDL reduced to 81 mg/dL, triglycerides reduced to 141 mg/dL. - Continue current lipid-lowering therapy. Eriberto Tovar MD documented in [facility]10-[facility] Telephone encounter Note * Telephone Encounter - Lis Layton RN - 01/19/2024 7:27 PM EDT Spoke with patient. Given message from provider's office. Patient verbalizes understanding. Scheduled appointment. Lis Layton RN [facility] Miscellaneous Notes* Telephone Encounter - Lis Layton RN - 01/19/2024 7:27 PM EDT Spoke with patient. Given message from provider's office. Patient verbalizes understanding. Scheduled appointment. Lis Layton RN * Telephone Encounter - Eriberto Tovar MD - 01/19/2024 7:09 PM EDT Needs seen before can prescribed controlled medications like opiates like oxycodone * Telephone Encounter - Regina Khalil LPN - 01/19/2024 1:10 PM EDT Printed TE to bring to attention of PCP to address. Regina Khalil LPN * Telephone Encounter - Ronny Mills RN - 01/19/2024 11:45 AM EDT Pt checking on reply to below message. Reports she has to stop diclofenac this Sat, for blepharoplasty eye surgery, scheduled 02-01-24. Will also be having colonscopy done next week, and has to be off diclofenac for that procedure as well. Last appt w/pcp was 11-24-23. Asking if she needs to be seen to get oxycodone in place of dicofenac? Please advise and phone patient with reply. * Telephone Encounter - Yvonne Garrido - 01/13/2024 12:55 PM EDT Tristian is calling Eriberto Tovar MD today with concern regarding medication question Patient was to have surgery on 11-29, but was diagnosed with COVID a few days before so surgery had to be cancelled. Patient was taken off her regular arthritis medication prior to surgery and prescribed oxyCODONE IR (ROXICODONE) 5 mg immediate release tablet. Patient is no scheduled for surgery 01/31 for surgery and needs to be off her regular arthritis medication for 10 days prior. Patient is asking if she can be prescribed oxyCODONE IR (ROXICODONE) 5 mgimmediate release tablet Patient is asking if she needs to be seen again. Patient has been identified by name and birthdate. Duration of symptoms: N/A Person calling: self Call patient at: on cell [phone] (home) [phone] (cell) Was an appointment scheduled: No Closing statement: Results or non-symptom based questions: Thank you for calling [facility], your call will be returned within the next business day. Yvonne Garrido documented in this encounterSal[facility]10-16-2024 Telephone encounter Note * Telephone Encounter - Eriberto Tovar MD - 01/19/2024 7:09 PM EDT Needs seen before can prescribed controlled medications like opiates like oxycodone [facility] Telephone encounter Note* Telephone Encounter - Regina Khalil LPN - 01/19/2024 1:10 PM EDT Printed TE to bring to attention of PCP to address. Regina Khalil LPN [facility] Telephone encounter Note* Telephone Encounter - Ronny Mills RN - 01/19/2024 11:45 AM EDT Pt checking on reply to below message. Reports she has to stop diclofenac this Sat, for blepharoplasty eye surgery, scheduled 02-01-24. Will also be having colonscopy done next week, and has to be off diclofenac for that procedure as well. Last appt w/pcp was 11-24-23. Asking if she needs to be seen to get oxycodone in place of dicofenac? Please advise and phone patient with reply. [facility] Tele[facility] encounter Note* Telephone Encounter - Yvonne Garrido - 01/13/2024 12:55 PM EDT Tristian is calling Eriberto Tovar MD today with concern regarding medication question Patient was to have surgery on 11-29, but was diagnosed with COVID a few days before so surgery had to be cancelled. Patient was taken off her regular arthritis medication prior to surgery and prescribed oxyCODONE IR (ROXICODONE) 5 mg immediate release tablet. Patient is no scheduled for surgery 01/31 for surgery and needs to be off her regular arthritis medication for 10 days prior. Patient is asking if she can be prescribed oxyCODONE IR (ROXICODONE) 5 mgimmediate release tablet Patient is asking if she needs to be seen again. Patient has been identified by name and birthdate. Duration of symptoms: N/A Person calling: self Call patient at: on cell [phone] (home) [phone] (cell) Was an appointment scheduled: No Closing statement: Results or non-symptom based questions: Thank you for calling [facility], your call will be returned within the next business day. Yvonne Garrido [facility]-04[facility] Telephone encounter Note* Telephone Encounter - Rossy Mendoza LPN - 01/07/2024 12:18 PM EDT Prescription Refill Information The patient has been identified by name and date of : Yes Caregiver verified no other encounters exist for this prescription request: Yes Caregiver confirmed with patient/requestor that no other refills are due, in the near future, with this provider at this time: Yes The last office visit in the department: 11/24/23 Does the patient have a future office visit with this provider/department: Yes 03/14/24 Requested Prescriptions Pending Prescriptions Disp Refills tiZANidine (ZANAFLEX) 4 mg tablet 180 tablet 3 Sig: TAKE 1 TABLET BY MOUTH AT BEDTIME, MAY TAKE DOSE DURING THE DAY NEEDED Rossy Mendoza LPN January 07, 2024 12:18 PM [facility] Miscellaneous Notes* Telephone Encounter - Rossy Mendoza LPN - 01/07/2024 12:18 PM EDT Prescription Refill Information The patient has been identified by name and date of : Yes Caregiver verified no other encounters exist for this prescription request: Yes Caregiver confirmed with patient/requestor that no other refills are due, in the near future, with this provider at this time: Yes The last office visit in the department: 11/24/23 Does the patient have a future office visit with this provider/department: Yes 03/14/24 Requested Prescriptions Pending Prescriptions Disp Refills tiZANidine (ZANAFLEX) 4 mg tablet 180 tablet 3 Sig: TAKE 1 TABLET BY MOUTH AT BEDTIME, MAY TAKE DOSE DURING THE DAY NEEDED Rossy Mendoza LPN January 07, 2024 12:18 PM documented in this encounterSal[facility]10-[facility]24 Telephone encounter Note * Telephone Encounter - Rossy Mendoza LPN - 01/07/2024 12:16 PM EDT Prescription Refill Information The patient has been identified by name and date of : Yes Caregiver verified no other encounters exist for this prescription request: Yes Caregiver confirmed with patient/requestor that no other refills are due, in the near future, with this provider at this time: Yes The last office visit in the department: 11/24/23 Does the patient have a future office visit with this provider/department: Yes 03/14/24 Requested Prescriptions Pending Prescriptions Disp Refills lisinopril (PRINIVIL) 10 mg tablet 90 tablet 3 Sig: Take 1 tablet by mouth once daily. Rossy Mendoza LPN January 07, 2024 12:17 PM [facility] Miscellaneous Notes* Telephone Encounter - Rossy Mendoza LPN - 01/07/2024 12:16 PM EDT Prescription Refill Information The patient has been identified by name and date of : Yes Caregiver verified no other encounters exist for this prescription request: Yes Caregiver confirmed with patient/requestor that no other refills are due, in the near future, with this provider at this time: Yes The last office visit in the department: 11/24/23 Does the patient have a future office visit with this provider/department: Yes 03/14/24 Requested Prescriptions Pending Prescriptions Disp Refills lisinopril (PRINIVIL) 10 mg tablet 90 tablet 3 Sig: Take 1 tablet by mouth once daily. Rossy Mendoza LPN January 07, 2024 12:17 PM documented in this encounterSal[facility]09-14-2024 Telephone encounter Note * Telephone Encounter - Eriberto Tovar MD - 12/18/2023 3:43 PM EDT Patient canceled request [facility] Miscellaneous Notes* Telephone Encounter - Eriberto Tovar MD - 12/18/2023 3:43 PM EDT Patient canceled request documented in this encounterSalem [facility]09-11-2024 Nurse Note* Evelin Bah MA - 12/15/2023 3:07 PM EDT REVIEW OF SYSTEMS: General: The patient NOTES fatigue, denies weight loss, denies weight gain, NOTES feeling hot, and NOTES feelings of cold. Eyes: The patient denies glaucoma, NOTES eye injury/surgery, does not wear glasses or contacts. Ear/Nose/Throat: The patient NOTES allergies, denies hayfever, NOTES ear infections, and denies bloody noses. Cardiovascular: The patient denies chest pain, denies heart disease, NOTES high blood pressure,denies cardiac stent, denies prior heart attack, denies irregular heart beat, denies high cholesterol, denies poor circulation, denies heart failure, other cardiac issues, denies claudication, denies coldfeet, denies peripheral arterial stent. Respiratory: The patient denies tuberculosis, NOTES pneumonia, denies frequent cough, denies pulmonary embolism, denies shortness of breath, and denies coughing up blood. Gastrointestinal: The patient denies difficulty swallowing, denies acid reflux, denies ulcers, denies vomiting, denies jaundice/hepatitis, denies gallbladder problems, denies black or tarry stools, denies hemorrhoids, denies bleeding from rectum, denies diverticulitis, denies constipation, denies diarrhea, denies loss of stool control, and denies hernias. Kidney/Bladder: The patient denies kidney stones, NOTES urine infections, and denies bloody urine. Skin: The patient denies a history of skin cancer, denies bleeding/changing moles, and denies a history of skin rash. Neurologic: The patient denies a history of epilepsy/convulsions, NOTES headaches, denies head/spinal injuries, and denies stroke/TIA. Psychiatric: The patient NOTES psychiatric medications, NOTES depression, and denies voices, deniessubstance abuse. Endocrine: The patient denies thyroid disorders, denies diabetes, and denies hormonal problems. Hematologic: The patient denies a history of bruising, denies bleeding, and NOTES anemia, denies blood clots. Infections: The patient NOTES a history of measles and mumps, denies rheumatic fever, and denies sexually transmitted diseases. Musculoskeletal: The patient NOTES back pain/injury, NOTES back problems, NOTES sciatica, NOTES knee/foot trouble, NOTES arthritis, or denies gout. When was patient's last Mammogram screening? 04/2023 Last Colonoscopy: 12/05/2013 Evelin Bah MA [facility]09-11-2024 Nurse Note* Evelin Bah MA - 12/15/2023 3:07 PM EDT REVIEW OF SYSTEMS: General: The patient NOTES fatigue, denies weight loss, denies weight gain, NOTES feeling hot, and NOTES feelings of cold. Eyes: The patient denies glaucoma, NOTES eye injury/surgery, does not wear glasses or contacts. Ear/Nose/Throat: The patient NOTES allergies, denies hayfever, NOTES ear infections, and denies bloody noses. Cardiovascular: The patient denies chest pain, denies heart disease, NOTES high blood pressure,denies cardiac stent, denies prior heart attack, denies irregular heart beat, denies high cholesterol, denies poor circulation, denies heart failure, other cardiac issues, denies claudication, denies coldfeet, denies peripheral arterial stent. Respiratory: The patient denies tuberculosis, NOTES pneumonia, denies frequent cough, denies pulmonary embolism, denies shortness of breath, and denies coughing up blood. Gastrointestinal: The patient denies difficulty swallowing, denies acid reflux, denies ulcers, denies vomiting, denies jaundice/hepatitis, denies gallbladder problems, denies black or tarry stools, denies hemorrhoids, denies bleeding from rectum, denies diverticulitis, denies constipation, denies diarrhea, denies loss of stool control, and denies hernias. Kidney/Bladder: The patient denies kidney stones, NOTES urine infections, and denies bloody urine. Skin: The patient denies a history of skin cancer, denies bleeding/changing moles, and denies a history of skin rash. Neurologic: The patient denies a history of epilepsy/convulsions, NOTES headaches, denies head/spinal injuries, and denies stroke/TIA. Psychiatric: The patient NOTES psychiatric medications, NOTES depression, and denies voices, deniessubstance abuse. Endocrine: The patient denies thyroid disorders, denies diabetes, and denies hormonal problems. Hematologic: The patient denies a history of bruising, denies bleeding, and NOTES anemia, denies blood clots. Infections: The patient NOTES a history of measles and mumps, denies rheumatic fever, and denies sexually transmitted diseases. Musculoskeletal: The patient NOTES back pain/injury, NOTES back problems, NOTES sciatica, NOTES knee/foot trouble, NOTES arthritis, or denies gout. When was patient's last Mammogram screening? 04/2023 Last Colonoscopy: 12/05/2013 Evelin Bah MA [facility] History of Present illness Narrative* Mayela Luna APRN.BODY TEAM MEMBER - 12/15/2023 3:00 PM EDT HISTORY AND PHYSICAL Martine Landaverde : 1955 REFERRING PHYSICIAN: No referring provider defined for this encounter. CHIEF COMPLAINT: Patient presents with: Consult HPI: Martine is a 68 year old female referred for endoscopy. Martine notes due for screening colonoscopy. Martine denies abdominal pain.. Martine denies diarrhea. Martine denies constipation. Martine denies a change in bowel habits. Martnie denies melena. Martine denies bright red blood per rectum. Martine denies hemorrhoids. Martine denies heartburn. Martine denies dysphagia. Martine denies a history of ulcers/ peptic ulcer disease. Denies family history of colon issues. Martine has undergone prior endoscopy. Last colonoscopy 12/[address] Shields at [facility]. Sedation received: Midazolam 7 mg IV, Fentanyl 100 micrograms IV Impression: - The entire examined colon is normal. Biopsied. - The distal rectum and anal verge are normal on retroflexion view. Current Outpatient Medications Medication Sig traMADol (ULTRAM) 50 mg tablet Take 50 mg by mouth two times a day as needed. ferrous sulfate (IRON) 325 mg (65 mg iron) tablet 4 days weekly traZODone (DESYREL) 50 mg tablet Take 0.5-1 tablets by mouth daily at bedtime. rosuvastatin (CRESTOR) 5 mg tablet Take 1 tablet by mouth daily at bedtime. diclofenac, EC, (VOLTAREN) 75 mg EC tablet Take 1 tablet by mouth two times a day. For pain/inflammation. Take with food. gabapentin (NEURONTIN) 400 mg capsule Take 1 capsule by mouth four times daily for 180 days. as directed venlafaxine ER (EFFEXOR XR) 150 mg 24 hr capsule Take 1 capsule by mouth two times a day. clobetasol (TEMOVATE) 0.05 % ointment Apply 1 application to affected area twice daily. TO AFFECTEDAREA as directed. lisinopril (PRINIVIL) 10 mg tablet Take 1 tablet by mouth once daily. tiZANidine (ZANAFLEX) 4 mg tablet TAKE 1 TABLET BY MOUTH AT BEDTIME, MAY TAKE DOSE DURING THE DAY NEEDED CPAP Initiate CPAP @ 9 cm of water with humidification. Mask (per patient preference) optional chinstrap (if indicated) , filters, tubing, humidifier and lifetime supplies. fluticasone (FLONASE) 50 mcg/actuation nasal spray Use 2 Sprays in each nostril once daily. CPAP CHIN STRAP, USED WITH CPAP DEVICE glucosam sul na/chondr galvan a na(GLUCOSAMINE-CHONDROITIN 3X 750 MG-600 MG TAB) Take 1 tablet twice daily. MAGNESIUM OXIDE 500 MG TAB Take 1 tablet twice daily. MELATONIN 3 MG TAB Take 10 mg by mouth. nightly cholecalciferol(VITAMIN D-3 1,000 UNIT CHEWABLE TAB) Take 2 tablets daily. methylsulfonylmethane(MSM 1,000 MG TAB) 1 tablet twice daily. vitamin b complex(B COMPLEX TAB) Take one(1) tablet daily. VITAMIN E 400 UNIT CAP Take one(1) tablet daily. CALCIUM 600 + D(3) 600 MG-200 UNIT TAB Take one(1) tablet twice daily. MULTIVITAMIN TAB Take one(1) tablet daily. No current facility-administered medications for this visit. ALLERGIES: Sulfa (Sulfonamide Antibiotics) PAST MEDICAL HISTORY No date: Chronic fatigue syndrome No date: Depression 05/23/2012: Dyspareunia No date: Generalized anxiety disorder No date: Mitral valve disorders(424.0) No date: Myalgia and myositis, unspecified No date: Obstructive sleep apnea Comment: Not treating because of cost No date: Other kyphoscoliosis and scoliosis Comment: SPURS/VERTEBRAE No date: Other specified iron deficiency anemias No date: Unspecified sleep apnea PAST SURGICAL HISTORY No date: ARTHRD ANT NTRBD MIN DSC EA ADDL INTERSPACE 10/17/2008: COLONOSCOPY FLX DX W/COLLJ SPEC WHEN PFRMD 12/05/2013: COLONOSCOPY SCREENING Comment: 10 yr interval No date: CORRECT BUNION,SIMPLE Comment: LEFT FOOT X 2 No date: CRYO CAUTERY CERVIX No date: DILATION & CURETTAGE DX&/THER NONOBSTETRIC Comment: Dilation & curettage 10/17/2008: EGD TRANSORAL BIOPSY SINGLE/MULTIPLE Comment: gastritis 03/03/2001: PAST SURGICAL HISTORY OF Comment: 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 FAMILY HISTORY Problem Relation Age of Onset Alzheimer's Disease Mother Coronary Artery Disease Mother 35 35 at first [place] Ischemic Heart Disease Mother Stroke Mother Coronary Artery Disease Brother 57 2 MIs Breast Cancer Maternal Grandmother Coronary Artery Disease Maternal Grandfather Ischemic Heart Disease Maternal Grandfather Stroke Maternal Grandfather Breast Cancer Paternal Grandmother Social History Tobacco Use Smoking status: Never Smokeless tobacco: Never Vaping Use Vaping status: Never Used Substance Use Topics Alcohol use: No Drug use: No REVIEW OF SYMPTOMS: negative except as noted above PHYSICAL EXAMINATION: General: The patient is 68 year old, female well nourished, well hydrated in no acute distress. Thepatient is oriented to time, place, and person. VITALS: Blood pressure 120/82, pulse 100, temperature 36.7 C (98 F), height 168.9 cm (5' 6.5), weight 78.6 kg (173 lb 3.2 oz), last menstrual period 10/02/2007, SpO2 97%. Body mass index is 27.54 kg/m . HEENT: Normal cephalic, ataumatic, pupils are equally round, sclera are anicteric, mucous membranesare moist, oropharynx is clear. Neck has no masses, asymmetry or lymphadenopathy. Respiratory: Clear to auscultation and percussion. Normal respiratory excursion and pattern. Cardiac: Examination is regular rate and rhythm. Normal S1/S2 Abdominal exam: Soft, nontender, with no palpable masses. No hepatosplenomegaly. No palpable hernias. Extremities: no clubbing, cyanosis or edema. No adenopathy. LABORATORY VALUES: As Noted RADIOLOGIC STUDIES: As Noted Assessment IMPRESSION: screen for colon cancer PLAN: I have reviewed my findings with the surgeon. Will plan for lower endoscopy. We discussed therisks and benefits of the planned endoscopy. I have informed the patient that complications can occur including failure to complete the endoscopy and perforation. Martine had the opportunity to ask questions concerning the planned endoscopy. My staff has also explained the procedure to the patient inunderstandable terms and has given the patient printed material concerning the procedure. Martine freely consents to surgery. I plan to use Golytely bowel preparation I have explained to the patient the difference between IV conscious sedation and MAC anesthesia - and I have offered either, according to the patient's wishes. I have explained that with IV conscioussedation there is no anesthesia provider available and therefore there is a limitation of the amount of IV medications that can be given and that the patient may wake up in the middle of the procedure and/or experience pain/discomfort during the procedure. Further discussion was done and the patient was given the opportunity to ask questions and all questions were answered. Martine chooses IV conscious sedation Martine was counseled that if there are changes in his/her medical condition, to let the office know if surgery should proceed. If there are changes in patient's medical condition from time of this encounter to the day of the procedure that preclude anesthesia, patient may have procedure cancelled for patient's safety. Diagnoses: (Z12.11) Screen for colon cancer (primary encounter diagnosis) Portions of this documentation were copied and pasted from previous office visit notes in order to provide a cohesive continuity of the history. The note has been reviewed and edited and updated as necessary. Mayela Luna APRN.CNP documented in this [facility]Sal[facility] NoteHNO ID: [id number] Author: MAYELA LUNA APRN.CNP Service: ? Author Type: Nurse Practitioner Type: Progress Notes Filed: 12/15/2023 16:05 Note Text: HISTORY AND PHYSICAL Martine Landaverde : 1955 REFERRING PHYSICIAN: No referring provider defined for this encounter. CHIEF COMPLAINT: Patient presents with: Consult HPI: Martine is a 68 year old female referred for endoscopy. Martine notes due for screening colonoscopy. Martine denies abdominal pain.. Martine denies diarrhea. Martine denies constipation. Martine denies a change in bowel habits. Martine denies melena. Martine denies bright red blood per rectum. Martine denies hemorrhoids. Martine denies heartburn. Martine denies dysphagia. Martine denies a history of ulcers/ peptic ulcer disease. Denies family history of colon issues. Martine has undergone prior endoscopy. Last colonoscopy 12/[address] Shields at [facility]. Sedation received: Midazolam 7 mg IV, Fentanyl 100 micrograms IV Impression: - The entire examined colon is normal. Biopsied. - The distal rectum and anal verge are normal on retroflexion view. Current Outpatient Medications Medication Sig traMADol (ULTRAM) 50 mg tablet Take 50 mg by mouth two times a day as needed. ferrous sulfate (IRON) 325 mg (65 mg iron) tablet 4 days weekly traZODone (DESYREL) 50 mg tablet Take 0.5-1 tablets by mouth daily at bedtime. rosuvastatin (CRESTOR) 5 mg tablet Take 1 tablet by mouth daily at bedtime. diclofenac, EC, (VOLTAREN) 75 mg EC tablet Take 1 tablet by mouth two times a day. For pain/inflammation. Take with food. gabapentin (NEURONTIN) 400 mg capsule Take 1 capsule by mouth four times daily for 180 days. as directed venlafaxine ER (EFFEXOR XR) 150 mg 24 hr capsule Take 1 capsule by mouth two times a day. clobetasol (TEMOVATE) 0.05 % ointment Apply 1 application to affected area twice daily. TO AFFECTED AREA as directed. lisinopril (PRINIVIL) 10 mg tablet Take 1 tablet by mouth once daily. tiZANidine (ZANAFLEX) 4 mg tablet TAKE 1 TABLET BY MOUTH AT BEDTIME, MAY TAKE DOSE DURING THE DAY NEEDED CPAP Initiate CPAP @ 9 cm of water with humidification. Mask (per patient preference) optional chin strap (if indicated) , filters, tubing, humidifier and lifetime supplies. fluticasone (FLONASE) 50 mcg/actuation nasal spray Use 2 Sprays in each nostril once daily. CPAP CHIN STRAP, USED WITH CPAP DEVICE glucosam sul na/chondr galvan a na(GLUCOSAMINE-CHONDROITIN 3X 750 MG-600 MG TAB) Take 1 tablet twice daily. MAGNESIUM OXIDE 500 MG TAB Take 1 tablet twice daily. MELATONIN 3 MG TAB Take 10 mg by mouth. nightly cholecalciferol(VITAMIN D-3 1,000 UNIT CHEWABLE TAB) Take 2 tablets daily. methylsulfonylmethane(MSM 1,000 MG TAB) 1 tablet twice daily. vitamin b complex(B COMPLEX TAB) Take one(1) tablet daily. VITAMIN E 400 UNIT CAP Take one(1) tablet daily. CALCIUM 600 + D(3) 600 MG-200 UNIT TAB Take one(1) tablet twice daily. MULTIVITAMIN TAB Take one(1) tablet daily. No current facility-administered medications for this visit. ALLERGIES: Sulfa (Sulfonamide Antibiotics) PAST MEDICAL HISTORY No date: Chronic fatigue syndrome No date: Depression 05/23/2012: Dyspareunia No date: Generalized anxiety disorder No date: Mitral valve disorders(424.0) No date: Myalgia and myositis, unspecified No date: Obstructive sleep apnea Comment: Not treating because of cost No date: Other kyphoscoliosis and scoliosis Comment: SPURS/VERTEBRAE No date: Other specified iron deficiency anemias No date: Unspecified sleep apnea PAST SURGICAL HISTORY No date: ARTHRD ANT NTRBD MIN DSC EA ADDL INTERSPACE 10/17/2008: COLONOSCOPY FLX DX W/COLLJ SPEC WHEN PFRMD 12/05/2013: COLONOSCOPY SCREENING Comment: 10 yr interval No date: CORRECT BUNION,SIMPLE Comment: LEFT FOOT X 2 No date: CRYO CAUTERY CERVIX No date: DILATION AND CURETTAGE DXAND/THER NONOBSTETRIC Comment: Dilation AND curettage 10/17/2008: EGD TRANSORAL BIOPSY SINGLE/MULTIPLE Comment: gastritis 03/03/2001: PAST SURGICAL HISTORY OF Comment: 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 FAMILY HISTORY Problem Relation Age of Onset Alzheimer's Disease Mother Coronary Artery Disease Mother 35 35 at first [place] Ischemic Heart Disease Mother Stroke Mother Coronary Artery Disease Brother 57 2 MIs Breast Cancer Maternal Grandmother Coronary Artery Disease Maternal Grandfather Ischemic Heart Disease Maternal Grandfather Stroke Maternal Grandfather Breast Cancer Paternal Grandmother Social History Tobacco Use Smoking status: Never Smokeless tobacco: Never Vaping Use Vaping status: Never Used Substance Use Topics Alcohol use: No Drug use: No REVIEW OF SYMPTOMS: negative except as noted above PHYSICAL EXAMINATION: General: The patient is 68 year old, female well nourished, well hydrated in no acute distress. The patient is oriented to time, place, and person. VITALS: Blood pressure 120/82, pulse (more content not included)...[facility]08-21-2024 Instructions* Patient Instructions* Eriberto Tovar MD - 11/24/2023 5:53 PM EDT -Hold all blood thinners, including ibuprofen, Aleve, aspirin, and baby aspirin, for 10 days beforeyour eye surgery. - Consult with your surgical team to determine when you can resume taking blood thinners and other medications post-surgery. - Oxycodone 5 mg immediate-release tablets prescribed, to be taken up to three times a day as needed for pain control. This is in addition to your current Tramadol prescription, which you can take upto twice a day. - Inform Dr. Garcia about the new Oxycodone prescription. - Monitor for any signs of constipation and manage accordingly, especially given the increased use of pain medications. - Contact your surgical team with any questions or concerns about medication management before and after your eye surgery. documented in this [facility]Sal[facility] NoteHNO ID: [id number] Author: ERIBERTO TOVAR MD Service: ? Author Type: Physician Type: Progress Notes Filed: 11/24/2023 17:55 Note Text: This note was created using [employer]. Subjective Martine Landaverde is a 67 year old female. Patient presents with: Same Day Appointment: Discuss pain medication while off diclofenac for surgery SUBJECTIVE: Martine Landaverde is a 67 year old year old lady here today for same day appointment for review of medical conditions. Patient is a 67-year-old female with a history of fibromyalgia and arthritis presenting with worsening pain after discontinuing diclofenac in preparation for an upcoming eye surgery. Patient reports that she was instructed to stop taking diclofenac 10 days prior to the surgery to avoid blood thinning effects. She discontinued the medication on Wednesday, and the surgery is scheduled for next Wednesday. Since discontinuing diclofenac, she has experienced increased pain in her lower back, hands, knees, hips, and shoulders. She describes the pain as severe, stating, everything really hurts right now, and notes that even with her spinal cord stimulator implant, the pain is not well-controlled. She denies any swelling of the joints or sciatica. Patient has been taking tramadol once daily, which provides some relief, but she is concerned that it may not be sufficient to manage her pain until the surgery. She has tried Tylenol, but finds it ineffective, describing it as like candy. She is unable to take ibuprofen, Aleve, or aspirin due to their blood-thinning effects. 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 Patient is under the care of Dr. Garcia for pain management and has a prescription for tramadol to be taken once or twice daily. She has previously taken oxycodone without issues and is considering using it to manage her pain until the surgery. She plans to consult with her eye surgeon about when she can resume diclofenac after the surgery. PAST MEDICAL HISTORY No date: Chronic fatigue syndrome No date: Depression 05/23/2012: Dyspareunia No date: Generalized anxiety disorder No date: Mitral valve disorders(424.0) No date: Myalgia and myositis, unspecified No date: Obstructive sleep apnea Comment: Not treating because of cost No date: Other kyphoscoliosis and scoliosis Comment: SPURS/VERTEBRAE No date: Other specified iron deficiency anemias No date: Unspecified sleep apnea Current Outpatient Medications Medication Sig traMADol (ULTRAM) 50 mg tablet Take 50 mg by mouth two times a day as needed. ferrous sulfate (IRON) 325 mg (65 mg iron) tablet 4 days weekly traZODone (DESYREL) 50 mg tablet Take 0.5-1 tablets by mouth daily at bedtime. rosuvastatin (CRESTOR) 5 mg tablet Take 1 tablet by mouth daily at bedtime. gabapentin (NEURONTIN) 400 mg capsule Take 1 capsule by mouth four times daily for 180 days. as directed venlafaxine ER (EFFEXOR XR) 150 mg 24 hr capsule Take 1 capsule by mouth two times a day. clobetasol (TEMOVATE) 0.05 % ointment Apply 1 application to affected area twice daily. TO AFFECTED AREA as directed. lisinopril (PRINIVIL) 10 mg tablet Take 1 tablet by mouth once daily. tiZANidine (ZANAFLEX) 4 mg tablet TAKE 1 TABLET BY MOUTH AT BEDTIME, MAY TAKE DOSE DURING THE DAY NEEDED CPAP Initiate CPAP @ 9 cm of water with humidification. Mask (per patient preference) optional chin strap (if indicated) , filters, tubing, humidifier and lifetime supplies. fluticasone (FLONASE) 50 mcg/actuation nasal spray Use 2 Sprays in each nostril once daily. CPAP CHIN STRAP, USED WITH CPAP DEVICE glucosam sul na/chondr galvan a na(GLUCOSAMINE-CHONDROITIN 3X 750 MG-600 MG TAB) Take 1 tablet twice daily. MAGNESIUM OXIDE 500 MG TAB Take 1 tablet twice daily. MELATONIN 3 MG TAB Take 10 mg by mouth. nightly cholecalciferol(VITAMIN D-3 1,000 UNIT CHEWABLE TAB) Take 2 tablets daily. methylsulfonylmethane(MSM 1,000 MG TAB) 1 tablet twice daily. vitamin b complex(B COMPLEX TAB) Take one(1) tablet daily. VITAMIN E 400 UNIT CAP Take one(1) tablet daily. CALCIUM 600 + D(3) 600 MG-200 UNIT TAB Take one(1) tablet twice daily. MULTIVITAMIN TAB Take one(1) tablet daily. diclofenac, EC, (VOLTAREN) 75 mg EC tablet Take 1 tablet by mouth two times a day. For pain/inflammation. Take with food. (Patient not taking: Reported on 11/24/2023) No current facility-administered medications for this visit. Review of Systems Objective BP 114/62 Pulse 86 Temp 36.8 ?C (98.3 ?F) Resp 18 Wt 79 kg (174 lb 2.6 oz) LMP 10/02/2007 SpO2 97% BMI 27.50 kg/m? Physical Exam Musculoskeletal: Comments: No active synovitis but has generalized DJD of hands and knees, etc. Assessment and Plan Generalized osteoarthritis: - Patient experiencing exacerbation of pain due to discontinuation of diclofenac. - Pain noted in shoulders, hands, knees, hips, and lower back. (more content not included)...[facility]08-21-2024 History of Present illness Narrative* Eriberto Tovar MD - 11/24/2023 5:41 PM EDT This note was created using [employer]. Subjective Martine Landaverde is a 67 year old female. Patient presents with: Same Day Appointment: Discuss pain medication while off diclofenac for surgery SUBJECTIVE: Martine Landaverde is a 67 year old year old lady here today for same day appointment for review of medical conditions. Patient is a 67-year-old female with a history of fibromyalgia and arthritis presenting with worsening pain after discontinuing diclofenac in preparation for an upcoming eye surgery. Patient reports that she was instructed to stop taking diclofenac 10 days prior to the surgery to avoid blood thinning effects. She discontinued the medication on Wednesday, and the surgery is scheduled for next Wednesday. Since discontinuing diclofenac, she has experienced increased pain in her lower back, hands, knees, hips, and shoulders. She describes the pain as severe, stating, everything really hurts right now, and notes that even with her spinal cord stimulator implant, the pain is not well-controlled. Shedenies any swelling of the joints or sciatica. Patient has been taking tramadol once daily, which provides some relief, but she is concerned that it may not be sufficient to manage her pain until the surgery. She has tried Tylenol, but finds it ineffective, describing it as like candy. She is unable to take ibuprofen, Aleve, or aspirin due totheir blood- thinning effects. 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 Patient is under the care of Dr. Garcia for pain management and has a prescription for tramadol molly taken once or twice daily. She has previously taken oxycodone without issues and is considering using it to manage her pain until the surgery. She plans to consult with her eye surgeon about when she can resume diclofenac after the surgery. PAST MEDICAL HISTORY No date: Chronic fatigue syndrome No date: Depression 05/23/2012: Dyspareunia No date: Generalized anxiety disorder No date: Mitral valve disorders(424.0) No date: Myalgia and myositis, unspecified No date: Obstructive sleep apnea Comment: Not treating because of cost No date: Other kyphoscoliosis and scoliosis Comment: SPURS/VERTEBRAE No date: Other specified iron deficiency anemias No date: Unspecified sleep apnea Current Outpatient Medications Medication Sig traMADol (ULTRAM) 50 mg tablet Take 50 mg by mouth two times a day as needed. ferrous sulfate (IRON) 325 mg (65 mg iron) tablet 4 days weekly traZODone (DESYREL) 50 mg tablet Take 0.5-1 tablets by mouth daily at bedtime. rosuvastatin (CRESTOR) 5 mg tablet Take 1 tablet by mouth daily at bedtime. gabapentin (NEURONTIN) 400 mg capsule Take 1 capsule by mouth four times daily for 180 days. as directed venlafaxine ER (EFFEXOR XR) 150 mg 24 hr capsule Take 1 capsule by mouth two times a day. clobetasol (TEMOVATE) 0.05 % ointment Apply 1 application to affected area twice daily. TO AFFECTEDAREA as directed. lisinopril (PRINIVIL) 10 mg tablet Take 1 tablet by mouth once daily. tiZANidine (ZANAFLEX) 4 mg tablet TAKE 1 TABLET BY MOUTH AT BEDTIME, MAY TAKE DOSE DURING THE DAY NEEDED CPAP Initiate CPAP @ 9 cm of water with humidification. Mask (per patient preference) optional chinstrap (if indicated) , filters, tubing, humidifier and lifetime supplies. fluticasone (FLONASE) 50 mcg/actuation nasal spray Use 2 Sprays in each nostril once daily. CPAP CHIN STRAP, USED WITH CPAP DEVICE glucosam sul na/chondr galvan a na(GLUCOSAMINE-CHONDROITIN 3X 750 MG-600 MG TAB) Take 1 tablet twice daily. MAGNESIUM OXIDE 500 MG TAB Take 1 tablet twice daily. MELATONIN 3 MG TAB Take 10 mg by mouth. nightly cholecalciferol(VITAMIN D-3 1,000 UNIT CHEWABLE TAB) Take 2 tablets daily. methylsulfonylmethane(MSM 1,000 MG TAB) 1 tablet twice daily. vitamin b complex(B COMPLEX TAB) Take one(1) tablet daily. VITAMIN E 400 UNIT CAP Take one(1) tablet daily. CALCIUM 600 + D(3) 600 MG-200 UNIT TAB Take one(1) tablet twice daily. MULTIVITAMIN TAB Take one(1) tablet daily. diclofenac, EC, (VOLTAREN) 75 mg EC tablet Take 1 tablet by mouth two times a day. For pain/inflammation. Take with food. (Patient not taking: Reported on 11/24/2023) No current facility-administered medications for this visit. Review of Systems Objective BP 114/62 Pulse 86 Temp 36.8 C (98.3 F) Resp 18 Wt 79 kg (174 lb 2.6 oz) LMP 10/02/2007 SpO2 97% BMI 27.50 kg/m Physical Exam Musculoskeletal: Comments: No active synovitis but has generalized DJD of hands and knees, etc. Assessment and Plan Generalized osteoarthritis: - Patient experiencing exacerbation of pain due to discontinuation of diclofenac. - Pain noted in shoulders, hands, knees, hips, and lower back. - No active synovitis observed, but generalized degenerative disease changes present. - Educated patient on the importance of avoiding NSAIDs prior to surgery. - Prescribed oxycodone 5 mg immediate-release tablets, 1 tablet TID for 7 days to manage pain untilsurgery. - Patient advised to monitor pain levels and adjust medication intake accordingly. - Patient understands and agrees with the treatment plan. Chronic bilateral low back pain without sciatica: - Pain management includes tramadol, which patient takes once daily, with allowance for twice dailyif needed. - Pain persists despite spinal implant, with noted bone spurs and scoliosis. - No radicular symptoms or sciatica reported. - Continued use of tramadol 50 mg, 1-2 times daily as needed for pain. - Patient to inform Dr. Chavez of any additional pain medications prescribed. - Patient educated on the importance of notifying pain management provider about any new prescriptions. Fibromyalgia: - Generalized pain exacerbated by discontinuation of diclofenac. - Pain management includes tramadol and newly prescribed oxycodone. - Patient advised to monitor pain levels and adjust medication intake accordingly. - Patient understands and agrees with the treatment plan. Chronic pain of both knees: - Pain exacerbated by discontinuation of diclofenac. - No signs of acute synovitis or gout. - Continued use of tramadol 50 mg, 1-2 times daily as needed for pain. - Prescribed oxycodone 5 mg immediate-release tablets, 1 tablet TID for 7 days to manage pain untilsurgery. - Patient advised to monitor pain levels and adjust medication intake accordingly. - Patient understands and agrees with the treatment plan. Eriberto Tovar MD documented [facility] Telephone encounter Note * Telephone Encounter - Sheridan Wren RN - 11/23/2023 8:25 AM EDT Pt called and is notified of providers message and instructions. Pt voices understanding and scheduled with Dr Tovar tomorrow. Sheridan Wren RN [facility]08-20-2024 Miscellaneous Notes* Telephone Encounter - Sheridan Wren RN - 11/23/2023 8:25 AM EDT Pt called and is notified of providers message and instructions. Pt voices understanding and scheduled with Dr Tovar tomorrow. Sheridan Wren RN * Telephone Encounter - Eriberto Tovar MD - 11/22/2023 7:19 PM EDT Since all NSAIDs are off the list, if Tylenol does not help, then that is left with controlled medications like tramadol and hydrocodone. These are controlled meds so would need an appointment in order for me to prescribe any of those meds. See if wants an appointment to see whether controlled med is appropriate. Noted tramadol last given in 2020 from someone outside of [facility]. Hydrocodone given 2009. Percocet 2010 from within [facility] system. * Telephone Encounter - Sheridan Wren RN - 11/22/2023 1:31 PM EDT Pt is scheduled to have eyelid surgery, (blepharoplasty), at [facility], [place], WednesdayNovember 29.Pt is to discontinue any blood thinning medication ten days prior to the day of surgery. Pt stoppedthe Diclofenac on Wednesday11/21/23. She wanted to know if there was anything you could prescribe thatwould compensate for not taking the Voltaren. 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 She said she may have to postpone the Blepharoplasty until sometime in the future if she cannot get her pain under control. She states the Diclofenac takes her pain down to a 2/10, right now she is at a 7/10 throughout her body constant ache. Pt states she uses [facility] in [place]. Please call and advise. Pt. documented in this encounterSal[facility]08-[facility]-2024 Telephone encounter Note * Telephone Encounter - Eriberto Tovar MD - 11/22/2023 7:19 PM EDT Since all NSAIDs are off the list, if Tylenol does not help, then that is left with controlled medications like tramadol and hydrocodone. These are controlled meds so would need an appointment in order for me to prescribe any of those meds. See if wants an appointment to see whether controlled med is appropriate. Noted tramadol last given in 2020 from someone outside of [facility]. Hydrocodone given 2009. Percocet 2010 from within [facility] system. [facility]08-[facility] Telephone encounter Note* Telephone Encounter - Sheridan Wren RN - 11/22/2023 1:41 PM EDT Turned into an TE on 11/22/23. [facility]08-[facility] Miscellaneous Notes* Telephone Encounter - Sheridan Wren RN - 11/22/2023 1:41 PM EDT Turned into an TE on 11/22/23. documented in this encounterSalem [facility]08-19-2024 Telephone encounter Note * Telephone Encounter - Sheridan Wren RN - 11/22/2023 1:31 PM EDT Pt is scheduled to have eyelid surgery, (blepharoplasty), at [facility], [place], WednesdayNovember 29.Pt is to discontinue any blood thinning medication ten days prior to the day of surgery. Pt stoppedthe Diclofenac on Wednesday11/21/23. She wanted to know if there was anything you could prescribe thatwould compensate for not taking the Voltaren. 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 She said she may have to postpone the Blepharoplasty until sometime in the future if she cannot get her pain under control. She states the Diclofenac takes her pain down to a 2/10, right now she is at a 7/10 throughout her body constant ache. Pt states she uses [facility] in [place]. Please call and advise. Pt. [facility]07-[facility] Telephone encounter Note* Telephone Encounter - Luca Woodruff MA - 10/12/2023 9:57 AM EDT Images from the original note were not included. [facility]07-09-20[facility] Miscellaneous Notes* Telephone Encounter - Luca Woodruff MA - 10/12/2023 9:57 AM EDT Images from the original note were not included. documented in this encounterSalem [facility]05-31-2024 History of Present illness Narrative* Eriberto Tovar MD - 09/03/2023 3:12 PM EDT This note was created using NoteWriter. Subjective Martine Landaverde is a 67 year old female. HISTORY Martine Landaverde is a 67 year old lady here for pre-op evaluation as requested by Dr. Mcclain. Martine Landaverde has surgery scheduled on October 01, 2023 for left foot floating metatarsal osteotomy with hammer toe correction fifth digit under MAC anesthesia at [facility]. No problems with MAC anesthesia before. No signs of infections No CP or SOB. Able to go up and down stairs without problems with exertion. Stable on CPAP for SHANNON. Form needed signed for Isa. 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) Myalgia and myositis, unspecified Obstructive sleep apnea Not treating because of cost Other kyphoscoliosis and scoliosis SPURS/VERTEBRAE Other specified iron deficiency anemias Unspecified sleep apnea PAST SURGICAL HISTORY Procedure Laterality Date ARTHRD ANT NTRBD MIN DSC EA ADDL INTERSPACE COLONOSCOPY FLX DX W/COLLJ SPEC WHEN PFRMD 10/17/2008 COLONOSCOPY SCREENING 12/05/2013 10 yr interval CORRECT BUNION,SIMPLE LEFT FOOT X 2 CRYO CAUTERY CERVIX DILATION & CURETTAGE DX&/THER NONOBSTETRIC Dilation & curettage EGD TRANSORAL BIOPSY SINGLE/MULTIPLE 10/17/2008 gastritis PAST SURGICAL HISTORY OF 03/03/2001 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 ALLERGIES Allergen Reactions Sulfa (Sulfonamide * Hives Current Outpatient Medications Medication Sig traMADol (ULTRAM) 50 mg tablet Take 50 mg by mouth two times a day as needed. rosuvastatin (CRESTOR) 5 mg tablet Take 1 tablet by mouth daily at bedtime. diclofenac, EC, (VOLTAREN) 75 mg EC tablet Take 1 tablet by mouth two times a day. For pain/inflammation. Take with food. gabapentin (NEURONTIN) 400 mg capsule Take 1 capsule by mouth four times daily for 180 days. as directed venlafaxine ER (EFFEXOR XR) 150 mg 24 hr capsule Take 1 capsule by mouth two times a day. clobetasol (TEMOVATE) 0.05 % ointment Apply 1 application to affected area twice daily. TO AFFECTEDAREA as directed. lisinopril (PRINIVIL) 10 mg tablet Take 1 tablet by mouth once daily. tiZANidine (ZANAFLEX) 4 mg tablet TAKE 1 TABLET BY MOUTH AT BEDTIME, MAY TAKE DOSE DURING THE DAY NEEDED CPAP Initiate CPAP @ 9 cm of water with humidification. Mask (per patient preference) optional chinstrap (if indicated) , filters, tubing, humidifier and lifetime supplies. fluticasone (FLONASE) 50 mcg/actuation nasal spray Use 2 Sprays in each nostril once daily. CPAP CHIN STRAP, USED WITH CPAP DEVICE glucosam sul na/chondr galvan a na(GLUCOSAMINE-CHONDROITIN 3X 750 MG-600 MG TAB) Take 1 tablet twice daily. MAGNESIUM OXIDE 500 MG TAB Take 1 tablet twice daily. MELATONIN 3 MG TAB Take 10 mg by mouth. nightly cholecalciferol(VITAMIN D-3 1,000 UNIT CHEWABLE TAB) Take 2 tablets daily. methylsulfonylmethane(MSM 1,000 MG TAB) 1 tablet twice daily. vitamin b complex(B COMPLEX TAB) Take one(1) tablet daily. VITAMIN E 400 UNIT CAP Take one(1) tablet daily. CALCIUM 600 + D(3) 600 MG-200 UNIT TAB Take one(1) tablet twice daily. MULTIVITAMIN TAB Take one(1) tablet daily. ferrous sulfate (IRON) 325 mg (65 mg iron) tablet 4 days weekly traZODone (DESYREL) 50 mg tablet Take 0.5-1 tablets by mouth daily at bedtime. No current facility-administered medications for this visit. FAMILY HISTORY Problem Relation Age of Onset Alzheimer's Disease Mother Coronary Artery Disease Mother 35 35 at first [place] Ischemic Heart Disease Mother Stroke Mother Coronary Artery Disease Brother 57 2 MIs Breast Cancer Maternal Grandmother Coronary Artery Disease Maternal Grandfather Ischemic Heart Disease Maternal Grandfather Stroke Maternal Grandfather Breast Cancer Paternal Grandmother Social History Tobacco Use Smoking status: Never Smokeless tobacco: Never Vaping Use Vaping Use: Never used Substance Use Topics Alcohol use: No Drug use: No Review of Systems Objective BP 142/62 Pulse 88 Temp 36.7 C (98.1 F) Resp 18 Ht 169.5 cm (5' 6.73) Wt 78.9 kg (174 lb) LMP 10/02/2007 SpO2 97% BMI 27.47 kg/m Last 5 Encounter Wt Readings: Date: Wt: 09/03/2023 78.9 kg (174 lb) 12/18/2022 83 kg (183 lb) 12/10/2022 83.1 kg (183 lb 3.2 oz) 08/26/2022 82.6 kg (182 lb) 08/03/2022 83.9 kg (185 lb) No waist measurement recorded Estimated body mass index is 27.47 kg/m as calculated from the following: Height as of this encounter: 169.5 cm (5' 6.73). Weight as of this encounter: 78.9 kg (174 lb). Last 5 Encounter BP Readings: Date: BP: 09/03/2023 142/62 12/18/2022 122/68 12/10/2022 137/79 08/26/2022 118/70 08/03/2022 122/70 09/03/23 1504 09/03/23 1543 BP: 142/62 120/70 Pulse: 88 Resp: 18 Temp: 36.7 C (98.1 F) SpO2: 97% Weight: 78.9 kg (174 lb) Height: 169.5 cm (5' 6.73) Physical Exam Vitals reviewed. Constitutional: Appearance: She is well-developed. HENT: Head: Normocephalic and atraumatic. Right Ear: Ear canal and external ear normal. There is impacted cerumen. Left Ear: Tympanic membrane, ear canal and external ear normal. Nose: Nose normal. Eyes: Conjunctiva/sclera: Conjunctivae normal. Neck: Thyroid: No thyromegaly. Cardiovascular: Rate and Rhythm: Normal rate and regular rhythm. Pulses: Normal pulses. Heart sounds: Normal heart sounds. No murmur heard. No friction rub. No gallop. Pulmonary: Effort: Pulmonary effort is normal. Breath sounds: Normal breath sounds. Abdominal: General: Bowel sounds are normal. There is no distension. Palpations: Abdomen is soft. There is no mass. Tenderness: There is no abdominal tenderness. Musculoskeletal: General: Tenderness present. No deformity. Left shoulder: Tenderness present. Decreased range of motion. Right lower leg: No edema. Left lower leg: No edema. Comments: Tender over rotator cuff as well as anterior left chest and upper left arm muscles (bicep) Lymphadenopathy: Cervical: No cervical adenopathy. Skin: General: Skin is warm and dry. Coloration: Skin is not jaundiced or pale. Findings: No rash. Neurological: General: No focal deficit present. Mental Status: She is alert and oriented to person, place, and time. Cranial Nerves: No cranial nerve deficit. Sensory: No sensory deficit. Motor: No abnormal muscle tone. Coordination: Coordination normal. Deep Tendon Reflexes: Reflexes normal. Psychiatric: Attention and Perception: Attention and perception normal. Mood and Affect: Mood and affect normal. Speech: Speech normal. Behavior: Behavior normal. Thought Content: Thought content normal. Judgment: Judgment normal. Assessment and Plan Encounter Diagnosis ICD-10-CM 1. Preop examination Z01.818 2. Shoulder strain, left, initial encounter S46.912A Get t hrough foot surgery then decide about PT or ortho evlauation. Okay massotherapy. Also hot andcold treatment.Voltaren gel helps 3. Encounter for immunization Z23 RSV PRINTED PHARMACY INSTRUCTIONS Patient without medical contraindications to planned surgical procedure. She is at low risk for cardiac complications and is having a procedure that is low risk for cardiaccomplications. She is medically optimized for planned surgical procedure. She may proceed with planned surgical procedure. Results of this preop evaluation will be communicated with Dr. Jone Mcclain via fax of their signed Surgical Clearance Request and copy of this preop evaluation. Eriberto Tovar MD documented in this encounterSal[facility]05-30-2024 Telephone encounter Note * Telephone Encounter - Eriberto Tovar MD - 09/02/2023 1:30 AM EDT The following approved medication requests have been transmitted electronically. Requested Prescriptions Pending Prescriptions Disp Refills traZODone (DESYREL) 50 mg tablet 30 tablet 0 Sig: Take 0.5-1 tablets by mouth daily at bedtime. Eriberto Tovar MD [facility]05-30-2024 Miscellaneous Notes* Telephone Encounter - Eriberto Tovar MD - 09/02/2023 1:30 AM EDT The following approved medication requests have been transmitted electronically. Requested Prescriptions Pending Prescriptions Disp Refills traZODone (DESYREL) 50 mg tablet 30 tablet 0 Sig: Take 0.5-1 tablets by mouth daily at bedtime. Eriberto Tovar MD * Telephone Encounter - Deepika Pierre OCCA - 09/01/2023 3:30 PM EDT Patient has been identified by name and date of : Yes Patient phones for refill(s): Requested Prescriptions Pending Prescriptions Disp Refills traZODone (DESYREL) 50 mg tablet 30 tablet 0 Sig: Take 0.5-1 tablets by mouth daily at bedtime. Date of last office visit in primary care: 07/09/2023 Date of next office visit in primary care: 09/03/2023 Please advise. Thank you. IQRA [place]. documented in this encounterSal[facility]05-29-2024 Telephone encounter Note * Telephone Encounter - Deepika Pierre OCCA - 09/01/2023 3:30 PM EDT Patient has been identified by name and date of : Yes Patient phones for refill(s): Requested Prescriptions Pending Prescriptions Disp Refills traZODone (DESYREL) 50 mg tablet 30 tablet 0 Sig: Take 0.5-1 tablets by mouth daily at bedtime. Date of last office visit in primary care: 07/09/2023 Date of next office visit in primary care: 09/03/2023 Please advise. Thank you. IQRA [place]. [facility]05-08-[facility] Telephone encounter Note* Telephone Encounter - Rossy Mendoza LPN - 08/11/2023 12:49 PM EDT PATIENT NOTIFIED OF SAME. [facility]05-08-2024 Miscellaneous Notes* Telephone Encounter - Rossy Mendoza LPN - 08/11/2023 12:49 PM EDT PATIENT NOTIFIED OF SAME. * Telephone Encounter - Eriberto Tovar MD - 08/11/2023 12:25 PM EDT May start with low dose Crestor and see if adequate to lower LDL. Check in 2 months or so. Will also check CMP. The following approved medication requests have been transmitted electronically. Requested Prescriptions Signed Prescriptions Disp Refills rosuvastatin (CRESTOR) 5 mg tablet 90 tablet 3 Sig: Take 1 tablet by mouth daily at bedtime. Authorizing Provider: ERIBERTO TOVAR MD * Telephone Encounter - Evelin Sage LPN - 08/11/2023 8:23 AM EDT Spoke with pt and information listed below given. Pt verbalizes understanding. Pt willing to start on a statin and she will get the baby aspirin [id number]. Pharmacy for the statin is [facility]. Evelin Sage LPN * Telephone Encounter - Evelin Sage LPN - 08/11/2023 8:23 AM EDT ----- Message from Erbierto Tovar MD sent at 08/11/2023 12:38 AM EDT ----- Coronary artery calcifications seen and CAC (calcium risk score) is high at 621. Percentile rank high at 96th. Given these findings, recommendation is to start a statin and consider taking low dose aspirin. See if patient willing to start statin and/or 80 mg Aspirin documented in this encounterSalem [facility] Center05-08-2024 Telephone encounter Note * Telephone Encounter - Eriberto Tovar MD - 08/11/2023 12:25 PM EDT May start with low dose Crestor and see if adequate to lower LDL. Check in 2 months or so. Will also check CMP. The following approved medication requests have been transmitted electronically. Requested Prescriptions Signed Prescriptions Disp Refills rosuvastatin (CRESTOR) 5 mg tablet 90 tablet 3 Sig: Take 1 tablet by mouth daily at bedtime. Authorizing Provider: ERIBERTO TOVAR MD [facility]05-08-20[facility] Telephone encounter Note* Telephone Encounter - Evelin Sage LPN - 08/11/2023 8:23 AM EDT Spoke with pt and information listed below given. Pt verbalizes understanding. Pt willing to start on a statin and she will get the baby aspirin [id number]. Pharmacy for the statin is [facility]. Evelin Sage LPN [facility]05-08-20[facility] Telephone encounter Note* Telephone Encounter - Evelin Sage LPN - 08/11/2023 8:23 AM EDT ----- Message from Eriberto Tovar MD sent at 08/11/2023 12:38 AM EDT ----- Coronary artery calcifications seen and CAC (calcium risk score) is high at 621. Percentile rank high at 96th. Given these findings, recommendation is to start a statin and consider taking low dose aspirin. See if patient willing to start statin and/or 80 mg Aspirin [facility]04-25-2024 NoteHNO ID: [id number] Author: LUCY CHAU Tech Service: ? Author Type: Net Development Manager Type: Progress Notes Filed: 07/29/2023 15:49 Note Text: Radiology Service Progress Note PATIENT NAME: Martine Landaverde DATE OF SERVICE: July 29, 2023 TIME: 3:48 PM PATIENT IDENTITY VERIFICATION COMPLETED USING TWO (2) IDENTIFIERS: Name and Date of confirmed by patient verbally. FALL SCREENING: Has the patient had 2 falls in the last year or 1 fall with injury or currently using an Ambulatory Assistive Device (Walker, Cane, Wheelchair, Crutches, etc.)? No PATIENT GENDER DATA: Female. status: : No status: NO. PATIENT RELEVANT IMPLANT DATA REVIEWED: Not Applicable PATIENT PRESENTS WITH AN IMPLANTABLE OR ATTACHED EXECUTIVE SEARCH CONSULTANT: No RADIOLOGY DEPARTMENT: CT; Exam(s) Completed: Cardiac PERIPHERAL IV DATA: Not applicable SIGNED BY: Alexy blanco July 29, 2023 3:48 PMLegacy [facility]04[facility] History of Present illness Narrative* Lucy Chau Tech - 07/29/2023 3:30 PM EDT Radiology Service Progress Note PATIENT NAME: Martine Landaverde DATE OF SERVICE: July 29, 2023 TIME: 3:48 PM PATIENT IDENTITY VERIFICATION COMPLETED USING TWO (2) IDENTIFIERS: Name and Date of confirmedby patient verbally. FALL SCREENING: Has the patient had 2 falls in the last year or 1 fall with injury or currently using an Ambulatory Assistive Device (Walker, Cane, Wheelchair, Crutches, etc.)? No PATIENT GENDER DATA: Female. status: : No status: NO. PATIENT RELEVANT IMPLANT DATA REVIEWED: Not Applicable PATIENT PRESENTS WITH AN IMPLANTABLE OR ATTACHED EXECUTIVE SEARCH CONSULTANT: No RADIOLOGY DEPARTMENT: CT; Exam(s) Completed: Cardiac PERIPHERAL IV DATA: Not applicable SIGNED BY: Alexy blanco July 29, 2023 3:48 PM documented in this encounterSalem [facility] Center04-05-2024 History of Present illness Narrative* Eriberto Tovar MD - 07/09/2023 2:39 PM EDT This note was created using InPhase Technologiesriter. Subjective Martine Landaverde is a 67 year old female. Patient presents with: F/U 6 months SUBJECTIVE: Martine Landaverde is a 67 year old year old lady here today for 6 month follow up appointment for review of medical conditions. Reviewed that mother was 35 yo when had heart attack. Had CABG twice. Sleep issiues CPAP--mouth dry Subjective (Nabla) The patient came in for a six-month follow-up. She reported having blood work done recently, but not all tests were done as she thought they would be. She mentioned that she was trying to be proactive and get all the tests done before seeing me. She reported that her LDL cholesterol levels have improved, going from 171 down to 143. She also mentioned that her HDL cholesterol levels have remained stable in the 40s. She reported that her triglycerides have slightly increased from 178 to 191, but are still under 200. She mentioned that she has been watching her carbohydrate intake to help manageher triglyceride levels. She reported that her mother had premature heart disease at the age of 35 and was morbidly obese. She also mentioned that her mother's father had heart disease and was a smoker, which exposed her mother to a lot of second-hand smoke. She reported that she is considering getting a calcium scoring test done to assess her risk of heart disease. She mentioned that she is having trouble sleeping, often staying awake until the early hours of themorning despite being tired and ready to sleep. She reported that she has tried various methods to help her sleep, including listening to music, doing exercises, and taking melatonin, but none have been effective. 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 She reported that she is considering taking a sleeping pill to help her sleep, but is hesitant about the idea. She reported having trouble with her CPAP machine, waking up with a dry mouth and tongue. She mentioned using a nasal spray to help with this, but it has not been effective. She reported that she has been using a CPAP machine since 2008 and is considering the need for a BiPAP machine. 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) Myalgia and myositis, unspecified Obstructive sleep apnea Not treating because of cost Other kyphoscoliosis and scoliosis SPURS/VERTEBRAE Other specified iron deficiency anemias Unspecified sleep apnea Current Outpatient Medications Medication Sig venlafaxine ER (EFFEXOR XR) 150 mg 24 hr capsule Take 1 capsule by mouth two times a day. clobetasol (TEMOVATE) 0.05 % ointment Apply 1 application to affected area twice daily. TO AFFECTEDAREA as directed. lisinopril (PRINIVIL) 10 mg tablet Take 1 tablet by mouth once daily. gabapentin (NEURONTIN) 400 mg capsule Take 1 capsule by mouth four times daily for 180 days. tiZANidine (ZANAFLEX) 4 mg tablet TAKE 1 TABLET BY MOUTH AT BEDTIME, MAY TAKE DOSE DURING THE DAY NEEDED diclofenac, EC, (VOLTAREN) 75 mg EC tablet Take 1 tablet by mouth twice daily. For pain/inflammation. Take with food. terconazole (TERAZOL 7) 0.4 % vaginal cream USE 1 APPLICATOR VAGINALLY DAILY AT BEDTIME FOR 7 DAYS.REPEAT DIRECTED FOR RECURRENCE CPAP Initiate CPAP @ 9 cm of water with humidification. Mask (per patient preference) optional chinstrap (if indicated) , filters, tubing, humidifier and lifetime supplies. diclofenac sodium (VOLTAREN) 1 % topical gel Apply 2-4 g to affected area four times daily as needed. As directed. Max 32 grams per 24 hour period. CPAP CPAP @ 9 cm of water with humidification. Mask (per patient preference) optional chin strap (if indicated) , filters, tubing, humidifier and lifetime supplies. Dx. SHANNON G47.33 fluticasone (FLONASE) 50 mcg/actuation nasal spray Use 2 Sprays in each nostril once daily. CPAP CHIN STRAP, USED WITH CPAP DEVICE Ferrous Sulfate (IRON) 325 mg (65 mg iron) ORAL tablet Take 1 tablet by mouth twice daily. glucosam sul na/chondr galvan a na(GLUCOSAMINE-CHONDROITIN 3X 750 MG-600 MG TAB) Take 1 tablet twice daily. MAGNESIUM OXIDE 500 MG TAB Take 1 tablet twice daily. MELATONIN 3 MG TAB Take 10 mg by mouth. nightly cholecalciferol(VITAMIN D-3 1,000 UNIT CHEWABLE TAB) Take 2 tablets daily. methylsulfonylmethane(MSM 1,000 MG TAB) 1 tablet twice daily. vitamin b complex(B COMPLEX TAB) Take one(1) tablet daily. VITAMIN E 400 UNIT CAP Take one(1) tablet daily. CALCIUM 600 + D(3) 600 MG-200 UNIT TAB Take one(1) tablet twice daily. MULTIVITAMIN TAB Take one(1) tablet daily. No current facility-administered medications for this visit. Review of Systems Objective BP (P) 118/66 (BP Site: Left Arm, BP Position: Sitting, BP Cuff Size: Regular Adult) Pulse (P) 78 Wt (P) 81.2 kg (179 lb) LMP 10/02/2007 BMI (P) 28.04 kg/m Physical Exam Constitutional: Appearance: Normal appearance. HENT: Head: Normocephalic. Eyes: Conjunctiva/sclera: Conjunctivae normal. Cardiovascular: Rate and Rhythm: Normal rate and regular rhythm. Heart sounds: Normal heart sounds. Pulmonary: Effort: Pulmonary effort is normal. Breath sounds: Normal breath sounds. Musculoskeletal: Right lower leg: No edema. Left lower leg: No edema. Skin: General: Skin is warm and dry. Neurological: General: No focal deficit present. Mental Status: She is alert and oriented to person, place, and time. Psychiatric: Mood and Affect: Mood normal. Behavior: Behavior normal. Thought Content: Thought content normal. Judgment: Judgment normal. Latest Ref Rng 12/15/2022 06/11/2023 WBC 3.70 - 11.00 k/uL 6.87 RBC 3.90 - 5.20 m/uL 5.03 Hemoglobin 11.5 - 15.5 g/dL 11.7 Hematocrit 36.0 - 46.0 % 39.5 MCV 80.0 - 100.0 fL 78.5 (L) MCH 26.0 - 34.0 pg 23.3 (L) MCHC 30.5 - 36.0 g/dL 29.6 (L) RDW-CV 11.5 - 15.0 % 14.2 Platelet Count 150 - 400 k/uL 430 (H) MPV 9.0 - 12.7 fL 9.1 Neut% % 54.1 Abs Neut (ANC) 1.45 - 7.50 k/uL 3.72 Lymph% % 34.4 Abs Lymph 1.00 - 4.00 k/uL 2.36 Nolan% % 9.5 Abs Nolan <0.87 k/uL 0.65 Eosin% % 1.5 Abs Eosin <0.46 k/uL 0.10 Baso% % 0.4 Abs Baso <0.11 k/uL 0.03 Immature Gran % % 0.1 IMMATURE GRANS (ABS) <0.10 k/uL <0.03 NRBC /100 WBC 0.0 Absolute nRBC <0.01 k/uL <0.01 DTYPE Auto Protein, Total 6.3 - 8.0 g/dL 6.7 Albumin 3.9 - 4.9 g/dL 4.4 Calcium 8.5 - 10.2 mg/dL 9.7 Bilirubin, Total 0.2 - 1.3 mg/dL 0.2 Alkaline Phosphatase 34 - 123 U/L 84 AST 13 - 35 U/L 18 ALT 7 - 38 U/L 20 Glucose 74 - 99 mg/dL 80 BUN 7 - 21 mg/dL 16 Creatinine 0.58 - 0.96 mg/dL 0.91 Sodium 136 - 144 mmol/L 143 Potassium 3.7 - 5.1 mmol/L 4.3 Chloride 97 - 105 mmol/L 105 CO2 22 - 30 mmol/L 25 Anion Gap 9 - 18 mmol/L 13 eGFR >=60 mL/min/1.73m 69 Cholesterol, Total <200 mg/dL 250 (H) 224 (H) Triglyceride <150 mg/dL 178 (H) 191 (H) HDL Cholesterol >39 mg/dL 43 43 Non HDL Cholesterol <130 mg/dL 207 (H) 181 (H) Fasting Time hrs 12 12 VLDL Cholesterol <30 mg/dL 36 (H) 38 (H) TC:HDL Ratio <5.10 5.81 (H) 5.21 (H) LDL Cholesterol <100 mg/dL 171 (H) 143 (H) LDL:HDL Ratio <2.54 3.98 (H) 3.33 (H) TSH 0.270 - 4.200 mIU/L 1.740 Legend: (L) Low (H) High The 10-year ASCVD risk score (Kwaku CRAMER, et al., 2019) is: 6.7% Values used to calculate the score: Age: 67 years Sex: Female Is Non- : No Diabetic: No Tobacco smoker: No Systolic Blood Pressure: 118 mmHg Is BP treated: No HDL Cholesterol: 43 mg/dL Total Cholesterol: 224 mg/dL Assessment and Plan Encounter Diagnosis ICD-10-CM 1. Elevated LDL cholesterol level E78.00 CT CALCIUM SCORING SELF PAY Improved. Discussed ASCVD risk and role for CT Calcium score (cardiac) to determine whether should be more aggressive with CAD prevention. 2. Fibromyalgia M79.7 gabapentin (NEURONTIN) 400 mg capsule 3. Family history of coronary artery disease in mother Z82.49 CT CALCIUM SCORING SELF PAY 4. Insomnia, unspecified type G47.00 5. SHANNON on CPAP G47.33 CONSULT TO SLEEP MEDICINE - ADULT Problem with dry mouth; use nasal mask. ?needs settings or mask changed 6. 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 Encounter for screening for cardiovascular disorders Z13.6 CT CALCIUM SCORING SELF PAY Assessment - Improved LDL cholesterol levels but noted mother had MARYLOU at young age and patient's ASCVD risk score is between 5 and 10%. - Stable HDL cholesterol levels - Slight increase in triglyceride levels - Insomnia - Stress - CPAP machine issues Plan - Continue watching carbohydrate intake to manage triglyceride levels - Plan on getting a calcium scoring test done to assess risk of heart disease and whether should bemore aggressive with prevention with statin, etc. - Try taking Trazodone to help with sleep - If Trazodone is not effective, consider trying Belsomra - Continue current medications - Follow-up in six months for another check-up and to have blood work done - Consult with sleep medicine specialist to address CPAP machine issues - Consider using nasal gel and coconut oil to manage dry mouth and tongue - Consider need for BiPAP machine Note drafted by [employer]. Note reviewed, edited, and signed by the visit provider. * Eriberto Tovar MD - 07/09/2023 2:39 PM EDT PHQ-9 Score: 8 (Mild Depression) DALLIN-7 Score: 1 (Minimal Anxiety) Continuing current treatment plan documented in [facility] History of Present illness Narrative* Vania Rodas CNP - 06/17/2023 4:43 PM EDT Martine Landaverde 1955 CC: 67 y.o. is a she with Chief Complaint Patient presents with Left Knee - Pain Right Knee - Pain . HPI: Knee Pain: Patient presents to the office today with complaints of bilateral knee pain. She isaccompanied today by her . She has had pain in both knees for quite some time now. She can continue to do certain activities throughout the day but she is finding that she is having increased pain and some limitations. It is very difficult for her to go up and down stairs. She can hear her knees cracking and popping. She denies any instability of either knee. She reports that both are equally painful. Some days 1 is worse than the other. She had discussed knee replacement surgery with a another provider but she is interested in doing both knees at the same time which is why she is herefor further evaluation. She does take OTC pain medications but unfortunately she continues to have pain. She takes prescription strength anti-inflammatories which also do not provide her with adequate pain relief. She has not had any recent physical therapy. PMH: Allergies Allergen Reactions Sulfa (Sulfonamide Antibiotics) Hives Current Outpatient Medications: calcium carbonate-vitamin D3 600 mg-5 mcg (200 unit) per tablet, Take by mouth ., Disp: , Rfl: cholecalciferol, vitamin D3, 25 mcg (1,000 unit) Chew, Chew and Swallow 2 (two) tablets (2,000 Units total) daily ., Disp: , Rfl: clobetasoL (TEMOVATE) 0.05 % ointment, Apply 1 Application topically 2 (two) times a day ., Disp: ,Rfl: diclofenac sodium (VOLTAREN) 75 MG EC tablet, TAKE 1 TABLET BY MOUTH TWICE DAILY FOR PAIN. TAKE WITH FOOD, Disp: , Rfl: fluticasone propionate (FLONASE) 50 mcg/actuation nasal spray, 2 (two) sprays by NOT APPLICABLE route daily ., Disp: , Rfl: gabapentin (NEURONTIN) 400 MG capsule, Take 1 (one) capsule (400 mg total) by mouth 4 (four) times a day ., Disp: , Rfl: glucosamine galvan 2KCl-chondroit 750-600 mg Tab, Take 1 tablet by mouth 2 (two) times a day ., Disp: ,Rfl: lisinopriL (PRINIVIL,ZESTRIL) 10 MG tablet, Take 1 (one) tablet (10 mg total) by mouth daily ., Disp: , Rfl: magnesium oxide 500 mg magnesium Tab, Take 1 (one) tablet (500 mg total) by mouth 2 (two) times a day ., Disp: , Rfl: melatonin 3 mg Tab, Take 10 mg by mouth at bedtime ., Disp: , Rfl: methylsulfonylmethane 1,000 mg Tab, Take 1 (one) tablet (1,000 mg total) by mouth 2 (two) times a day ., Disp: , Rfl: multivitamin (THERAGRAN) per tablet, Take 1 (one) tablet by mouth ., Disp: , Rfl: tiZANidine (ZANAFLEX) 4 MG tablet, TAKE 1 TABLET BY MOUTH AT BEDTIME, MAY TAKE DOSE DURING THE DAY NEEDED, Disp: , Rfl: traMADol (ULTRAM) 50 mg tablet, TAKE 1 TABLET BY MOUTH up to TWICE DAILY NEEDED FOR PAIN, Disp: , Rfl: venlafaxine (EFFEXOR-XR) 150 MG 24 hr capsule, Take 1 (one) capsule (150 mg total) by mouth 2 (two)times a day ., Disp: , Rfl: Past Medical History: Diagnosis Date Anxiety Arthritis CFIDS (chronic fatigue and immune dysfunction syndrome) (HCC) Depression Fibromyalgia Past Surgical History: Procedure Laterality Date BACK SURGERY CYST REMOVAL Right ring finger SPINAL CORD STIMULATOR IMPLANT DAVID BUNIONECTOMY Social History Socioeconomic History Marital status: Tobacco Use Smoking status: Never Smokeless tobacco: Never Substance and Sexual Activity Alcohol use: Never Drug use: Never The patient's past medical history, surgical history, social history, family history, medications and allergies were reviewed with the patient today and are available in the chart for further review. ROS: Review of Systems Constitutional: Negative for activity change and fatigue. HENT: Negative for congestion, hearing loss and trouble swallowing. Eyes: Negative for visual disturbance. Respiratory: Negative for chest tightness and shortness of breath. Cardiovascular: Negative for chest pain and palpitations. Gastrointestinal: Negative for abdominal pain, diarrhea, nausea and vomiting. Endocrine: Negative for polydipsia, polyphagia and polyuria. Genitourinary: Negative for decreased urine volume, difficulty urinating and hematuria. Musculoskeletal: Positive for arthralgias, joint swelling and myalgias. Skin: Negative for color change, rash and wound. Allergic/Immunologic: Negative for immunocompromised state. Neurological: Negative for dizziness, weakness, light-headedness and numbness. Hematological: Does not bruise/bleed easily. Psychiatric/Behavioral: Negative for confusion and sleep disturbance. The patient is not nervous/anxious. PE: Physical Exam Constitutional: Appearance: She is well-developed. HENT: Head: Normocephalic. Eyes: Pupils: Pupils are equal, round, and reactive to light. Cardiovascular: Rate and Rhythm: Normal rate and regular rhythm. Pulmonary: Effort: Pulmonary effort is normal. Breath sounds: Normal breath sounds. Abdominal: General: Bowel sounds are normal. Palpations: Abdomen is soft. Musculoskeletal: General: Normal range of motion. Cervical back: Normal range of motion and neck supple. Right knee: Effusion present. Left knee: Effusion present. Skin: General: Skin is warm and dry. Neurological: Mental Status: She is alert and oriented to person, place, and time. ORTHO: Right Knee Exam Tenderness The patient is experiencing tenderness in the lateral joint line, medial joint line and patella. Range of Motion The patient has normal right knee ROM. Right knee extension: with severe crepitus. Right knee flexion: with severe crepitus. Tests Varus: negative Valgus: negative Drawer: Anterior - negative Posterior - negative Other Erythema: absent Scars: absent Sensation: normal Pulse: present Swelling: mild Effusion: effusion present Left Knee Exam Tenderness The patient is experiencing tenderness in the lateral joint line, medial joint line and patella. Range of Motion The patient has normal left knee ROM. Left knee extension: with severe crepitus. Left knee flexion: with severe crepitus. Tests Varus: negative Valgus: negative Drawer: Anterior - negative Posterior - negative Other Erythema: absent Scars: absent Sensation: normal Pulse: present Swelling: mild Effusion: effusion present Imaging: B/L Knee: No acute fracture or dislocation. Bilateral tricompartmental osteoarthritis. Both patellofemoral compartments demonstrate lateral patellar subluxation with severe osteoarthritic changes. Assessment/Plan: After examination and reviewing the patient x-ray images we discussed treatment options for both knees. The patient at this time does not want any cortisone injections I explained toher that I did not feel as though they would be of any benefit benefit to her. Her verbalized some concern in regards to doing both at the same time. He does not believe as though his would be able to withstand the pain that involved without surgery. She would like to do both but questions herself and at this point time is going to discuss this further with her . If she wishesto move forward with replacement surgery, she is to contact the office. I will start her in a course of outpatient physical therapy. Otherwise, I am more than happy to see this rosalinda lady back if needed. Diagnosis: Problem List Items Addressed This Visit None Visit Diagnoses Pain in both knees, unspecified chronicity Follow Up: No follow-ups on file. Vania Rodas CNP documented in this [id number] Miscellaneous Notes* Telephone Encounter - Evelin Sage LPN - 06/03/2023 4:01 PM EST Pt called in to report that the referral to ortho Dr. Arora FAX: [phone] did not go thru andneeded to be re-faxed. Record shows fax went thru. Let a message at Ulysses Lopez's office [phone] to call if they did not receive this. Pt notified we re-faxed and showed it went thru. Evelin Sage LPN documented in this encounterSal[facility]02-29-2024 Miscellaneous Notes* Telephone Encounter - Lis Layton RN - 06/03/2023 3:10 PM EST Patient calling to say [facility] tell her they did not receive faxed consult. Verified fax # [phone]. Faxed again. Lis Layton RN * Telephone Encounter - Ronny Mills RN - 06/03/2023 10:06 AM EST Faxed Consult to Orthopaedics, to fax number [phone]. Pt aware. * Telephone Encounter - Richy Dominguez APRN.CHERIE - 06/02/2023 4:41 PM EST Consult signed, please fax and let her know, thanks * Telephone Encounter - Manda Welch RN - 05/31/2023 8:47 AM EST Patient calls to request a referral to orthopaedics for bilateral knee pain. Reports she is going to need bilateral knee replacements and has been previously discussed with provider. Referral pended. Needs diagnosis. Requesting referral be faxed to [facility] at [phone]. Please call patient once referral placed. Manda Welch RN documented in this encounterSalem [facility]02-29-2024 History of Present illness Narrative* Jenny Mansfield - 06/03/2023 1:22 PM EST POPULATION HEALTH NAVIGATION OUTREACH Action/FYI 1st call, pt scheduling outside of [facility] Patient Identified by Name and : YES, via phone Outreach Outcome/Action Spoke to patient / parent / legal guardian: Would like to manage scheduling their own appointments Did you use a PCP flex slot to schedule this appointment? No Reason for Outreach Care Gap or Scheduling/Wellness visits Payer: Payor: MEDICARE / Plan: MEDICARE A AND B / Product Type: Medicare / Care Gap Reviewed:: Specialty Scheduling Reminder: Reminder note to check Health Maintenance for items below Health Maintenance items due: RSV Vaccine(1 - 1-dose 60+ series) Never done Advance Directive Discussion due on 04/05/2023 Mammogram Screening due on 06/26/2023 Navigation Signature: Jenny Mansfield June 03, 2023 1:22 PM documented in this encounterSal[facility]09-08-2023 Miscellaneous Notes* Telephone Encounter - Katie Ayon MA - 12/11/2022 3:12 PM EDT Patient notified of results, verbalized understanding of instructions given. Katie Ayon MA * Telephone Encounter - Abraham Garcia MD - 12/11/2022 2:57 PM EDT Urine culture did not show a clear infection. Finish antibiotic if helping and follow up with PCP, urology, or COMP FIELD CASE MANAGER to have urine rechecked for blood. documented in this encounterSalem [facility]09-07-2023 Miscellaneous Notes* Telephone Encounter - Sanjay Yates APRN.CNS - 12/10/2022 4:55 PM EDT OK labs and, schedule appt please * Telephone Encounter - Ronny Mills RN - 12/10/2022 4:17 PM EDT Patient reports she was seen in today and was told to ask pcp to order routine labs for her. Last had labs done in 2019. Pended. Last ov: 05-08-22 Next ov: none documented in this encounterSal[facility]09-07-2023 Instructions* Patient Instructions* Sonido David APRN.CNP - 12/10/2022 3:36 PM EDT Patient Education for Female Urinary Tract Infections Possible complications: Pyelonehritis Renal abscess Expected course/prognosis: * symptoms resolve within 2-3 days after starting treatment in almost all patients * one-fourth of women with simple UTI experience a second UTI within 6 months, and half at some time during lifetime. * patients with multiple recurrent UTI and no underlying urinary tract abnormality may receive long-term prophylactic antibioitic treatment. Trimethoprim-sulfamethoxazole and nitrofurantoin common used. * women with frequent or intercourse-related UTI should empty bladder immediately before and following intercourse and consider postcoital antibiotic treament Instructions: * Maintain good hydration * Avoid sexual intercourse when symptoms present *Take antibiotic as directed * Return if symptoms not resolved or markedly improved within 48 hours * Return if fever, chills, or flank pain develop * If taking prophylactic antiobiotics, take at bedtime * Take showers instead of tub baths * Avoid feminine hygiene sprays and scented douches * Wipe urethra from front to back documented in this encounterSalem [facility]09-07-2023 History of Present illness Narrative* Sonido David APRN.CNP - 12/10/2022 3:21 PM EDT Subjective HPI HPI Martine Landaverde is a 67 year old female who presents today for CC of urinary urgency, frequency,burning. This started today. Has tried nothing for relief. Symptoms are worsened by nothing. Risk factors hx of recurrent uti. .Patient presents with: UTI: Burning and urgency x today 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) Myalgia and myositis, unspecified Obstructive sleep apnea Not treating because of cost Other kyphoscoliosis and scoliosis SPURS/VERTEBRAE Other specified iron deficiency anemias Unspecified sleep apnea PAST SURGICAL HISTORY Procedure Laterality Date ARTHRD ANT NTRBD MIN DSC EA ADDL INTERSPACE COLONOSCOPY FLX DX W/COLLJ SPEC WHEN PFRMD 10/17/2008 COLONOSCOPY SCREENING 12/05/2013 10 yr interval CORRECT BUNION,SIMPLE LEFT FOOT X 2 CRYO CAUTERY CERVIX DILATION & CURETTAGE DX&/THER NONOBSTETRIC Dilation & curettage EGD TRANSORAL BIOPSY SINGLE/MULTIPLE 10/17/2008 gastritis PAST SURGICAL HISTORY OF 03/03/2001 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 ALLERGIES Sulfa (Sulfonamide Antibiotics) MEDICATIONS gabapentin (NEURONTIN) 400 mg capsule Take 1 capsule by mouth four times daily for 180 days. tiZANidine (ZANAFLEX) 4 mg tablet TAKE 1 TABLET BY MOUTH AT BEDTIME, MAY TAKE DOSE DURING THE DAY NEEDED venlafaxine ER (EFFEXOR XR) 150 mg 24 hr capsule Take 1 capsule by mouth twice daily. diclofenac, EC, (VOLTAREN) 75 mg EC tablet Take 1 tablet by mouth twice daily. For pain/inflammation. Take with food. terconazole (TERAZOL 7) 0.4 % vaginal cream USE 1 APPLICATOR VAGINALLY DAILY AT BEDTIME FOR 7 DAYS.REPEAT DIRECTED FOR RECURRENCE lisinopril (PRINIVIL) 10 mg tablet Take 1 tablet by mouth once daily. clobetasol (TEMOVATE) 0.05 % ointment Apply 1 application to affected area twice daily. TO AFFECTEDAREA as directed. CPAP Initiate CPAP @ 9 cm of water with humidification. Mask (per patient preference) optional chinstrap (if indicated) , filters, tubing, humidifier and lifetime supplies. diclofenac sodium (VOLTAREN) 1 % topical gel Apply 2-4 g to affected area four times daily as needed. As directed. Max 32 grams per 24 hour period. CPAP CPAP @ 9 cm of water with humidification. Mask (per patient preference) optional chin strap (if indicated) , filters, tubing, humidifier and lifetime supplies. Dx. SHANNON G47.33 fluticasone (FLONASE) 50 mcg/actuation nasal spray Use 2 Sprays in each nostril once daily. CPAP CHIN STRAP, USED WITH CPAP DEVICE Ferrous Sulfate (IRON) 325 mg (65 mg iron) ORAL tablet Take 1 tablet by mouth twice daily. glucosam sul na/chondr galvan a na(GLUCOSAMINE-CHONDROITIN 3X 750 MG-600 MG TAB) Take 1 tablet twice daily. MAGNESIUM OXIDE 500 MG TAB Take 1 tablet twice daily. MELATONIN 3 MG TAB Take 10 mg by mouth. nightly cholecalciferol(VITAMIN D-3 1,000 UNIT CHEWABLE TAB) Take 2 tablets daily. methylsulfonylmethane(MSM 1,000 MG TAB) 1 tablet twice daily. vitamin b complex(B COMPLEX TAB) Take one(1) tablet daily. VITAMIN E 400 UNIT CAP Take one(1) tablet daily. CALCIUM 600 + D(3) 600 MG-200 UNIT TAB Take one(1) tablet twice daily. MULTIVITAMIN TAB Take one(1) tablet daily. FAMILY HISTORY Problem Relation Age of Onset Alzheimer's Disease Mother Coronary Artery Disease Mother 35 35 at first [place] Ischemic Heart Disease Mother Stroke Mother Coronary Artery Disease Brother 57 2 MIs Breast Cancer Maternal Grandmother Coronary Artery Disease Maternal Grandfather Ischemic Heart Disease Maternal Grandfather Stroke Maternal Grandfather Breast Cancer Paternal Grandmother Social History Tobacco Use Smoking status: Never Smokeless tobacco: Never Vaping Use Vaping Use: Never used Substance Use Topics Alcohol use: No Drug use: No Review of Systems Constitutional: Negative for chills, fever and weight loss. Respiratory: Negative for cough, shortness of breath and wheezing. Cardiovascular: Negative for chest pain and palpitations. Gastrointestinal: Negative for abdominal pain, blood in stool, constipation, diarrhea, heartburn, melena, nausea and vomiting. Genitourinary: Positive for dysuria, frequency and urgency. Negative for flank pain and hematuria. Musculoskeletal: Negative for myalgias. Objective Blood pressure 137/79, pulse 84, temperature 36.8 C (98.2 F), resp. rate 18, weight 83.1 kg (183 lb3.2 oz), last menstrual period 10/02/2007, SpO2 97 %. Physical Exam Constitutional: General: She is not in acute distress. Appearance: Normal appearance. She is not toxic-appearing. Cardiovascular: Rate and Rhythm: Normal rate and regular rhythm. Heart sounds: Normal heart sounds. Pulmonary: Effort: Pulmonary effort is normal. Breath sounds: Normal breath sounds. Abdominal: General: Bowel sounds are normal. Palpations: Abdomen is soft. Tenderness: There is no abdominal tenderness. Skin: General: Skin is warm and dry. ASSESSMENT/PLAN: 1. Urgency of urination - ICD9: 788.63, ICD10: R39.15 Ua pos for blood, leuk Tx with cephalexin, take as directed F/u for continued s/s Education provided No recent labs, advised to check with pcp and get updated labs. - UA DIP, URINE (POC) - URINE CULTURE - CEPHALEXIN 500 MG CAPSULE No problem-specific Assessment & Plan notes found for this encounter. [facility] Miscellaneous Notes* Telephone Encounter - Radha Aguilar LPN - 11/13/2022 3:15 PM EDT Prescription has been mailed. * Telephone Encounter - Radha Aguilar LPN - 11/12/2022 1:14 PM EDT Prescription is at Dr. Tovar's nurse pod for signature. * Telephone Encounter - Sanjay Yates APRN.CNS - 11/12/2022 12:48 PM EDT OK * Telephone Encounter - Lis Layton RN - 11/11/2022 3:02 PM EDT Patient calling to say she was seen by Martha Carter on 11/09/22 for knee problem. She states she is having Physical Therapy and she was given a walker to use today. She is requesting a script for a handicap placard. Please mail to address on file. Lis Layton, RN documented in this encounter[facility]08-02-2023 Miscellaneous Notes* Telephone Encounter - Evelin Sage LPN - 11/04/2022 2:29 PM EDT Patient has been identified by name and date of : Yes, Provider Dr. Tovar Date 11/04/22 Time 2:29 pm Patient phones for refill(s): Requested Prescriptions Pending Prescriptions Disp Refills tiZANidine (ZANAFLEX) 4 mg tablet 180 tablet 3 Sig: TAKE 1 TABLET BY MOUTH AT BEDTIME, MAY TAKE DOSE DURING THE DAY NEEDED Date of last office visit in primary care: 05/08/22 Last 2 Encounter Wt Readings: Date: Wt: 08/26/2022 82.6 kg (182 lb) 08/03/2022 83.9 kg (185 lb) Previous labs/tests for medication: Not applicable . Thank you. Evelin Sage LPN documented in this encounter[facility]08-02-2023 Miscellaneous Notes* Telephone Encounter - Evelin Sage LPN - 11/04/2022 2:26 PM EDT Patient has been identified by name and date of : Yes, Provider Dr. Tovar Date 11/04/22 Time 2:27 pm Patient phones for refill(s): Requested Prescriptions Pending Prescriptions Disp Refills gabapentin (NEURONTIN) 400 mg capsule 360 capsule 1 Sig: Take 1 capsule by mouth four times daily for 180 days. Date of last office visit in primary care: 05/08/22 Last 2 Encounter Wt Readings: Date: Wt: 08/26/2022 82.6 kg (182 lb) 08/03/2022 83.9 kg (185 lb) Previous labs/tests for medication: Not applicable Thank you. Evelin ROSALES documented in this encounterSal[facility]05-01-2023 History of Present illness Narrative* Martha Meier APRN.BODY TEAM MEMBER - 08/03/2022 1:53 PM EDT Subjective UTI Associated symptoms include nausea and frequency. Pertinent negatives include no chills, no vomiting, no hematuria and no flank pain. Martine Landaverde is a 66 year old female who presents with UTI symptoms of frequency and dysuria for past 2 days. She was treated for a UTI on 07/23; started on Macrobid and later changed to cephalexin based on sensitivity testing; and after finishing antibiotics symptoms returned. She denies fever, chills, back pain, abdominal pain. She has had a small amount of nausea. She has not taken any medications at home for the UTI symptoms. Review of Systems Constitutional: Negative for chills and fever. Respiratory: Negative. Cardiovascular: Negative. Gastrointestinal: Positive for nausea. Negative for abdominal pain and vomiting. Genitourinary: Positive for dysuria and frequency. Negative for flank pain and hematuria. Musculoskeletal: Negative for back pain. BP 122/70 Pulse 80 Temp 36.9 C (98.5 F) Resp 17 Wt 83.9 kg (185 lb) LMP 10/02/2007 [id number]% BMI 28.98 kg/m 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) Myalgia and myositis, unspecified Obstructive sleep apnea Not treating because of cost Other kyphoscoliosis and scoliosis SPURS/VERTEBRAE Other specified iron deficiency anemias Unspecified sleep apnea PAST SURGICAL HISTORY Procedure Laterality Date ARTHRD ANT NTRBD MIN DSC EA ADDL INTERSPACE COLONOSCOPY FLX DX W/COLLJ SPEC WHEN PFRMD 10/17/2008 COLONOSCOPY SCREENING 12/05/2013 10 yr interval CORRECT BUNION,SIMPLE LEFT FOOT X 2 CRYO CAUTERY CERVIX DILATION & CURETTAGE DX&/THER NONOBSTETRIC Dilation & curettage EGD TRANSORAL BIOPSY SINGLE/MULTIPLE 10/17/2008 gastritis PAST SURGICAL HISTORY OF 03/03/2001 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 ALLERGIES Sulfa (Sulfonamide Antibiotics) MEDICATIONS gabapentin (NEURONTIN) 400 mg capsule Take 1 capsule by mouth four times daily for 180 days. venlafaxine ER (EFFEXOR XR) 150 mg 24 hr capsule Take 1 capsule by mouth twice daily. diclofenac, EC, (VOLTAREN) 75 mg EC tablet Take 1 tablet by mouth twice daily. For pain/inflammation. Take with food. lisinopril (PRINIVIL) 10 mg tablet Take 1 tablet by mouth once daily. clobetasol (TEMOVATE) 0.05 % ointment Apply 1 application to affected area twice daily. TO AFFECTEDAREA as directed. tiZANidine (ZANAFLEX) 4 mg tablet TAKE 1 TABLET BY MOUTH AT BEDTIME, MAY TAKE DOSE DURING THE DAY NEEDED CPAP Initiate CPAP @ 9 cm of water with humidification. Mask (per patient preference) optional chinstrap (if indicated) , filters, tubing, humidifier and lifetime supplies. diclofenac sodium (VOLTAREN) 1 % topical gel Apply 2-4 g to affected area four times daily as needed. As directed. Max 32 grams per 24 hour period. CPAP CPAP @ 9 cm of water with humidification. Mask (per patient preference) optional chin strap (if indicated) , filters, tubing, humidifier and lifetime supplies. Dx. SHANNON G47.33 fluticasone (FLONASE) 50 mcg/actuation nasal spray Use 2 Sprays in each nostril once daily. CPAP CHIN STRAP, USED WITH CPAP DEVICE glucosam sul na/chondr galvan a na(GLUCOSAMINE-CHONDROITIN 3X 750 MG-600 MG TAB) Take 1 tablet twice daily. MAGNESIUM OXIDE 500 MG TAB Take 1 tablet twice daily. MELATONIN 3 MG TAB Take 10 mg by mouth. nightly cholecalciferol(VITAMIN D-3 1,000 UNIT CHEWABLE TAB) Take 2 tablets daily. methylsulfonylmethane(MSM 1,000 MG TAB) 1 tablet twice daily. vitamin b complex(B COMPLEX TAB) Take one(1) tablet daily. VITAMIN E 400 UNIT CAP Take one(1) tablet daily. CALCIUM 600 + D(3) 600 MG-200 UNIT TAB Take one(1) tablet twice daily. MULTIVITAMIN TAB Take one(1) tablet daily. ciprofloxacin HCl (CIPRO) 500 mg tablet Take 1 tablet by mouth twice daily for 7 days. terconazole (TERAZOL 7) 0.4 % vaginal cream USE 1 APPLICATOR VAGINALLY DAILY AT BEDTIME FOR 7 DAYS.REPEAT DIRECTED FOR RECURRENCE Ferrous Sulfate (IRON) 325 mg (65 mg iron) ORAL tablet Take 1 tablet by mouth twice daily. FAMILY HISTORY Problem Relation Age of Onset Alzheimer's Disease Mother Coronary Artery Disease Mother 35 35 at first [place] Ischemic Heart Disease Mother Stroke Mother Coronary Artery Disease Brother 57 2 MIs Breast Cancer Maternal Grandmother Coronary Artery Disease Maternal Grandfather Ischemic Heart Disease Maternal Grandfather Stroke Maternal Grandfather Breast Cancer Paternal Grandmother Social History Tobacco Use Smoking status: Never Smokeless tobacco: Never Vaping Use Vaping Use: Never used Substance Use Topics Alcohol use: No Drug use: No Objective Physical Exam Vitals and nursing note reviewed. Constitutional: General: She is not in acute distress. Appearance: Normal appearance. She is not ill-appearing. Cardiovascular: Rate and Rhythm: Normal rate and regular rhythm. Heart sounds: Normal heart sounds. Pulmonary: Effort: Pulmonary effort is normal. No respiratory distress. Breath sounds: Normal breath sounds. No wheezing or rales. Abdominal: General: There is no distension. Palpations: Abdomen is soft. There is no mass. Tenderness: There is abdominal tenderness in the suprapubic area. There is no right CVA tenderness,left CVA tenderness or guarding. Skin: General: Skin is warm and dry. Neurological: Mental Status: She is alert. Component Latest Ref Rng & Units 01/23/2020 Protein, Total 6.3 - 8.0 g/dL 6.9 Albumin 3.9 - 4.9 g/dL 4.4 Calcium 8.5 - 10.2 mg/dL 9.3 Bilirubin, Total 0.2 - 1.3 mg/dL 0.4 Alkaline Phosphatase 34 - 123 U/L 79 AST 13 - 35 U/L 20 Glucose 74 - 99 mg/dL 93 BUN 7 - 21 mg/dL 17 Creatinine 0.58 - 0.96 mg/dL 0.92 Sodium 136 - 144 mmol/L 142 Potassium 3.7 - 5.1 mmol/L 3.6 (L) Chloride 97 - 105 mmol/L 104 CO2 22 - 30 mmol/L 29 Anion Gap 9 - 18 mmol/L 9 ALT 7 - 38 U/L 24 eGFR- >60 eGFR-All Other Races . >60 ASSESSMENT/PLAN: 1. Urinary frequency - ICD9: 788.41, ICD10: R35.0 acute - UA positive for lexi esterase and hematuria - Send urine for culture - Begin treatment with Ciprofloxacin 500 mg BID for 7 days - Patient education for prevention given - UA DIP, URINE (POC) - URINE CULTURE - Follow-up with your PCP in 3-5 days if symptoms have not improved or sooner if symptoms worsen - Discussed red flags and need for immediate medical evaluation if any occur. - Discussed supportive care treatment with fluids, rest and analgesia. - Discussed expected course of illness Martha Meier APRN.CNP documented in this encounter[facility]05-01-2023 Instructions* Patient Instructions* Martha Meier APRN.CNP - 08/03/2022 1:50 PM EDT ASSESSMENT/PLAN: 1. Urinary frequency - ICD9: 788.41, ICD10: R35.0 acute - UA positive for lexi esterase and hematuria - Send urine for culture - Begin treatment with Ciprofloxacin 500 mg BID for 7 days - Patient education for prevention given - UA DIP, URINE (POC) - URINE CULTURE - Follow-up with your PCP in 3-5 days if symptoms have not improved or sooner if symptoms worsen - Discussed red flags and need for immediate medical evaluation if any occur. - Discussed supportive care treatment with fluids, rest and analgesia. - Discussed expected course of illness Martha Meier APRN.CNP [facility] PATIENT INFO BLADDER INFECTION OVERVIEW Bladder infections are one of the most common infections, causing symptoms of burning with urination and needing to urinate frequently. A bladder infection is a type of urinary tract infection (UTI).Bladder infections are more common is women than men. Most women have an uncomplicated bladder infection that is easily treated with a short course of antibiotics. In men, bladder infections may alsoaffect the prostate gland, and a longer course of treatment may be needed. BLADDER INFECTION CAUSES The urinary tract includes the kidneys (which filter urine), ureters (the tube that carries urine from the kidneys to the bladder), the bladder (which stores urine), and urethra (the tube that carries urine out of the bladder). Bacteria do not normally live in these areas. However, bacteria normally live close to the urethra in women and men who are not circumcised. Bladder infections occur when bacteria travel up the urethra into the bladder. Factors that increase the risk of developing a bladder infection include: Vaginal sex Use of spermicides History of past bladder infections Diabetes In men, not being circumcised or having anal sex increase the risk of bladder infections. BLADDER INFECTION SYMPTOMS The typical symptoms of a bladder infection include: Pain or burning when urinating Frequent need to urinate Urgent need to urinate Blood in the urine Fever, back pain, nausea, or vomiting are not common symptoms of a bladder infection, but can occurin people with a kidney infection (pyelonephritis). If you have these symptoms, you should call your doctor or nurse immediately. Is it a bladder infection or something else? -- Burning with urination can also occur in people with vaginitis (eg, yeast infection) or urethritis (inflammation of the urethra). For this reason, it is important to call your healthcare provider before assuming you have a bladder infection. BLADDER INFECTION DIAGNOSIS Simple bladder infections are usually diagnosed based upon your symptoms alone. However, most patients, especially those who have bladder infection symptoms for the first time, should see a healthcare provider for urine testing. Urine culture -- A urine culture is a test that uses a sample of urine to try and grow bacteria in a laboratory. It usually requires about 48 hours to get results. However, a urine culture is not always required to diagnose a bladder infection. Urine culture is often recommended if: You have never had a bladder infection before You have symptoms that are not typical for bladder infection You have had resistant bladder infections before You have frequent bladder infections You do not begin to feel better within 24 to 48 hours after starting antibiotics You are BLADDER INFECTION TREATMENT Bladder infection -- In young, healthy adolescents and adults with a bladder infection, the usual treatment includes a three to seven day course of antibiotics. The typical drugs chosen are: trimethoprim-sulfamethoxazole (Bactrim ), nitrofurantoin (Macrobid ), ciprofloxacin (Cipro ) or levofloxacin (Levaquin ). In men, the infection may involve your prostate gland and treatment is usually given for at least 7days. Your symptoms should begin to resolve within one day after starting treatment. It is important to take the full course of antibiotics to completely eliminate the infection. If your symptoms persist for more than two or three days after starting treatment, call your healthcare provider. If needed, you can take a prescription medication that numbs the bladder and urethra (phenazopyridine [Pyridium ]) to reduce the burning pain of some UTIs. A similar medication is available without aprescription (eg, Uristat). Both medications change the color of the urine (usually blue or orange)and can interfere with laboratory testing. You should not take these medications for more than 48 hours due to the risk of side effects. These medications do not treat the infection and must be takenalong with an antibiotic. Some providers recommend drinking more fluids while treating bladder infections to help flush bacteria from the bladder. Others believe that drinking more fluids may dilute the antibiotic in the bladder and make the medication less effective. No studies have been performed to address this issue. There are also no good studies on the effectiveness of cranberry juice for treating a bladder infection; we do not recommend using cranberry juice to treat bladder infections. Follow-up care -- Follow-up testing is not needed in healthy, young men or women with a bladder infection if symptoms resolve. women are usually asked to have a repeat urine culture one to two weeks after treatment has ended to make sure the bacteria are no longer in the urine. RECURRENT BLADDER INFECTIONS Bladder infections versus other causes -- Some adults, especially women, develop bladder infectionsfrequently. In this case, it is important to confirm that your symptoms (eg, pain or burning, frequency, and urgency) are caused by a bladder infection. Symptoms are usually similar from one infection to another. The best way to confirm an infection is to have a urine culture. If your urine culture is negative for infection, other causes of pain, burning, and frequency should be investigated. There is no reason to take antibiotics if your urine culture is negative. Need for further testing -- If you continue to develop bladder infections, you may require further testing. If you continue to notice blood in your urine after your bladder infection has cleared, you should have further testing. Preventing recurrent UTIs -- Women with recurrent urinary tract infections may be advised to take steps to prevent bladder infections, including one or more of the following: Changes in control -- Women who develop frequent bladder infections and use spermicides, particularly those who also use a diaphragm, may be encouraged to use an alternate method of control. Cranberry products -- Taking cranberry juice or cranberry tablets has been promoted as one way to help prevent frequent bladder infections. However, this has not been proven. Drinking more fluid and urinating after intercourse -- Although studies have not proven that drinking more fluids or urinating soon after intercourse can prevent infection, some healthcare providers recommend these measures since they are not harmful. Drinking more fluid may help to wash out bacteria that enter the bladder. Postmenopausal women -- Postmenopausal women who develop recurrent bladder infections may benefit from using vaginal estrogen. Vaginal estrogen is available in a flexible ring that is worn in the vagina for three months (eg, Estring ), a small tablet (Vagifem ), or a cream (eg, Premarin or Estrace ). Vaginal estrogen is discussed in more detail in a separate topic review. Antibiotics -- A preventive antibiotic treatment may be recommended if you repeatedly develop bladder infections and have not responded to other preventive measures. Antibiotics are highly effective in preventing recurrent bladder infections and can be taken in several different ways. Preventive antibiotic -- You can take a low dose of an antibiotic once per day or three times per week for six months to several years. Antibiotics following intercourse -- In women who develop urinary tract infections after sex, taking a single low dose antibiotic after intercourse can help to prevent bladder infections. Self-treatment -- A plan to begin antibiotics at the first sign of a bladder infection may be recommended in some situations. Before starting this regimen, it is important that you have had testing (urine cultures) to confirm that your symptoms are caused by a bladder infection; some people have symptoms of a bladder infection but do not actually have an infection. documented in this encounterSal[facility]04-20-2023 History of Present illness Narrative* Kailey Perez APRN.CHERIE - 07/23/2022 3:56 PM EDT CC: Patient presents with: Urinary Frequency: Frequency, burning and urgency x 6 days HPI Martine Landaverde is a 66 year old female who presents with complaint of possible UTI. These symptoms have been present for 6 days. Associated symptoms: burning, urgency, and frequency Denies: pressure, fever, chills, sweats, abdominal pain, and flank pain Treatments: nothing The ROS was otherwise negative. PMH, Medications, labs, allergies, and recent past visits with PCP were reviewed and updated as able. 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) Myalgia and myositis, unspecified Obstructive sleep apnea Not treating because of cost Other kyphoscoliosis and scoliosis SPURS/VERTEBRAE Other specified iron deficiency anemias Unspecified sleep apnea PAST SURGICAL HISTORY Procedure Laterality Date ARTHRD ANT NTRBD MIN DSC EA ADDL INTERSPACE COLONOSCOPY FLX DX W/COLLJ SPEC WHEN PFRMD 10/17/2008 COLONOSCOPY SCREENING 12/05/2013 10 yr interval CORRECT BUNION,SIMPLE LEFT FOOT X 2 CRYO CAUTERY CERVIX DILATION & CURETTAGE DX&/THER NONOBSTETRIC Dilation & curettage EGD TRANSORAL BIOPSY SINGLE/MULTIPLE 10/17/2008 gastritis PAST SURGICAL HISTORY OF 03/03/2001 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 ALLERGIES Sulfa (Sulfonamide Antibiotics) MEDICATIONS gabapentin (NEURONTIN) 400 mg capsule Take 1 capsule by mouth four times daily for 180 days. venlafaxine ER (EFFEXOR XR) 150 mg 24 hr capsule Take 1 capsule by mouth twice daily. diclofenac, EC, (VOLTAREN) 75 mg EC tablet Take 1 tablet by mouth twice daily. For pain/inflammation. Take with food. lisinopril (PRINIVIL) 10 mg tablet Take 1 tablet by mouth once daily. clobetasol (TEMOVATE) 0.05 % ointment Apply 1 application to affected area twice daily. TO AFFECTEDAREA as directed. tiZANidine (ZANAFLEX) 4 mg tablet TAKE 1 TABLET BY MOUTH AT BEDTIME, MAY TAKE DOSE DURING THE DAY NEEDED CPAP Initiate CPAP @ 9 cm of water with humidification. Mask (per patient preference) optional chinstrap (if indicated) , filters, tubing, humidifier and lifetime supplies. diclofenac sodium (VOLTAREN) 1 % topical gel Apply 2-4 g to affected area four times daily as needed. As directed. Max 32 grams per 24 hour period. CPAP CPAP @ 9 cm of water with humidification. Mask (per patient preference) optional chin strap (if indicated) , filters, tubing, humidifier and lifetime supplies. Dx. SHANNON G47.33 fluticasone (FLONASE) 50 mcg/actuation nasal spray Use 2 Sprays in each nostril once daily. CPAP CHIN STRAP, USED WITH CPAP DEVICE glucosam sul na/chondr galvan a na(GLUCOSAMINE-CHONDROITIN 3X 750 MG-600 MG TAB) Take 1 tablet twice daily. MAGNESIUM OXIDE 500 MG TAB Take 1 tablet twice daily. MELATONIN 3 MG TAB Take 10 mg by mouth. nightly cholecalciferol(VITAMIN D-3 1,000 UNIT CHEWABLE TAB) Take 2 tablets daily. methylsulfonylmethane(MSM 1,000 MG TAB) 1 tablet twice daily. vitamin b complex(B COMPLEX TAB) Take one(1) tablet daily. VITAMIN E 400 UNIT CAP Take one(1) tablet daily. CALCIUM 600 + D(3) 600 MG-200 UNIT TAB Take one(1) tablet twice daily. MULTIVITAMIN TAB Take one(1) tablet daily. nitrofurantoin monohydrate and macrocrystal (MACROBID) 100 mg capsule Take 1 capsule by mouth twicedaily for 5 days. terconazole (TERAZOL 7) 0.4 % vaginal cream USE 1 APPLICATOR VAGINALLY DAILY AT BEDTIME FOR 7 DAYS.REPEAT DIRECTED FOR RECURRENCE Ferrous Sulfate (IRON) 325 mg (65 mg iron) ORAL tablet Take 1 tablet by mouth twice daily. FAMILY HISTORY Problem Relation Age of Onset Alzheimer's Disease Mother Coronary Artery Disease Mother 35 35 at first [place] Ischemic Heart Disease Mother Stroke Mother Coronary Artery Disease Brother 57 2 MIs Breast Cancer Maternal Grandmother Coronary Artery Disease Maternal Grandfather Ischemic Heart Disease Maternal Grandfather Stroke Maternal Grandfather Breast Cancer Paternal Grandmother Social History Tobacco Use Smoking status: Never Smokeless tobacco: Never Vaping Use Vaping Use: Never used Substance Use Topics Alcohol use: No Drug use: No ASSESSMENT/PLAN: 1. Urinary frequency - ICD9: 788.41, ICD10: R35.0 - UA DIP, URINE (POC) - URINE CULTURE - NITROFURANTOIN MONOHYDRATE & MACROCRYSTAL 100 MG ORAL CAP Prescription instructions reviewed with patient as applicable. Potential red flag symptoms discussed with the patient. Reviewed appropriate action plan to take if red flag symptoms occur. Patient agreeable to treatment plan. Kailey Perez APRN.BODY TEAM MEMBER documented in this encounterSal[facility]03-23-2023 Miscellaneous Notes* Letter - Mammography Coordinator - 06/25/2022 2:28 PM EDT June 26, 2022 PID: [id number] Martine Landaverde [address] [place] [address] Dear , We are pleased to inform you that the results of your recent breast imaging exam on 06/25/2022 are normal. Your mammogram demonstrates that you have dense breast tissue, which could hide abnormalities. Dense breast tissue, in and of itself, is a relatively common condition. Therefore, this information is not provided to cause undue concern; rather, it is to raise your awareness and promote discussion with your health care provider regarding the presence of dense breast tissue in addition to other riskfactors. Early detection of cancer is very important. We also understand recommendations regarding breast cancer screening are controversial. Please discuss with your primary care provider which strategy is best for you and whether a mammogram is right for you. Your imaging studies and [facility] [facility] as part of your permanent medical record and are available for your continuing care. Thank you for allowing us to help in meeting your health care needs. Sincerely, Dr. Nagy Interpreting Radiologist [facility] (Normal over 40) documented in this encounterSalem [facility] Center02-03-2023 Instructions* Patient Instructions* Eriberto Tovar MD - 05/08/2022 6:57 PM EST BONE MINERAL DENSITY PATIENT INSTRUCTIONS Bone mineral density testing measures the amount of calcium in certain parts of your bones. This information determines how strong your bones are. The test is used to detect osteoporosis, a disease in which the bone's mineral content and density are low, increasing a person's risk of fractures. Thelumbar spine (lower back) and the hip are the skeletal sites usually examined. For the test, remember that: 1. You cannot take this test if you are . 2. Eat a normal diet on the day of the test. 3. Take your medications as you normally would. 4. DO NOT take calcium supplements (such as Tums) for 24 hours before the test. 5. On the day of the test, leave valuables (jewelry or credit cards) at home. 6. The test should be performed prior to oral, rectal or IV contrast studies, or at least 7 days after any of these studies. For the test, you may be asked to wear a hospital gown. You will lie on your back, on a padded table, in a comfortable position. Generally, you can resume your usual activities immediately. documented in this encounterSalem [facility] Center02-03-2023 History of Present illness Narrative* Eriberto Tovar MD - 05/08/2022 6:49 PM EST This note was created using [employer]. Subjective Martine Landaverde is a 66 year old female. No chief complaint on file. SUBJECTIVE: Martine Landaverde is a 66 year old year old lady here today for 6 month follow up appointment for review of medical conditions. Stable on meds. No acute concerns to address. CPAP and using routinely and benefits from use. Will get labs later. Noted had back surgery (spinal stimulator). Limited with bending. 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) Myalgia and myositis, unspecified Obstructive sleep apnea Not treating because of cost Other kyphoscoliosis and scoliosis SPURS/VERTEBRAE Other specified iron deficiency anemias Unspecified sleep apnea Current Outpatient Medications Medication Sig terconazole (TERAZOL 7) 0.4 % vaginal cream USE 1 APPLICATOR VAGINALLY DAILY AT BEDTIME FOR 7 DAYS.REPEAT DIRECTED FOR RECURRENCE LIDOCAINE VISCOUS 2 % solution Take 15 mL by mouth every 3 hours as needed for pain. gabapentin (NEURONTIN) 400 mg capsule Take 1 capsule by mouth four times daily for 90 days. venlafaxine ER (EFFEXOR XR) 150 mg 24 hr capsule Take 1 capsule by mouth twice daily. lisinopril (PRINIVIL) 10 mg tablet Take 1 tablet by mouth once daily. clobetasol (TEMOVATE) 0.05 % ointment Apply 1 application to affected area twice daily. TO AFFECTEDAREA as directed. diclofenac, EC, (VOLTAREN) 75 mg EC tablet Take 1 tablet by mouth twice daily. For pain/inflammation. Take with food. tiZANidine (ZANAFLEX) 4 mg tablet TAKE 1 TABLET BY MOUTH AT BEDTIME, MAY TAKE DOSE DURING THE DAY NEEDED CPAP Initiate CPAP @ 9 cm of water with humidification. Mask (per patient preference) optional chinstrap (if indicated) , filters, tubing, humidifier and lifetime supplies. traMADol (ULTRAM) 50 mg tablet twice daily. diclofenac sodium (VOLTAREN) 1 % topical gel Apply 2-4 g to affected area four times daily as needed. As directed. Max 32 grams per 24 hour period. CPAP CPAP @ 9 cm of water with humidification. Mask (per patient preference) optional chin strap (if indicated) , filters, tubing, humidifier and lifetime supplies. Dx. SHANNON G47.33 fluticasone (FLONASE) 50 mcg/actuation nasal spray Use 2 Sprays in each nostril once daily. CPAP CHIN STRAP, USED WITH CPAP DEVICE Ferrous Sulfate (IRON) 325 mg (65 mg iron) ORAL tablet Take 1 tablet by mouth twice daily. glucosam sul na/chondr galvan a na(GLUCOSAMINE-CHONDROITIN 3X 750 MG-600 MG TAB) Take 1 tablet twice daily. MAGNESIUM OXIDE 500 MG TAB Take 1 tablet twice daily. MELATONIN 3 MG TAB Take 10 mg by mouth. nightly cholecalciferol(VITAMIN D-3 1,000 UNIT CHEWABLE TAB) Take 2 tablets daily. methylsulfonylmethane(MSM 1,000 MG TAB) 1 tablet twice daily. vitamin b complex(B COMPLEX TAB) Take one(1) tablet daily. VITAMIN E 400 UNIT CAP Take one(1) tablet daily. CALCIUM 600 + D(3) 600 MG-200 UNIT TAB Take one(1) tablet twice daily. MULTIVITAMIN TAB Take one(1) tablet daily. No current facility-administered medications for this visit. Review of Systems Objective BP 149/85 Pulse 93 Temp 37.3 C (99.2 F) Resp 18 Wt 80.7 kg (178 lb) LMP 10/02/2007 BMI 27.88 kg/m Physical Exam Constitutional: Appearance: Normal appearance. HENT: Head: Normocephalic. Eyes: Conjunctiva/sclera: Conjunctivae normal. Cardiovascular: Rate and Rhythm: Normal rate and regular rhythm. Heart sounds: Normal heart sounds. Pulmonary: Effort: Pulmonary effort is normal. Breath sounds: Normal breath sounds. Skin: General: Skin is warm and dry. Neurological: General: No focal deficit present. Mental Status: She is alert and oriented to person, place, and time. Psychiatric: Mood and Affect: Mood normal. Behavior: Behavior normal. Thought Content: Thought content normal. Judgment: Judgment normal. Assessment and Plan Encounter Diagnosis ICD-10-CM 1. Fibromyalgia M79.7 gabapentin (NEURONTIN) 400 mg capsule 2. SHANNON on CPAP G47.33 Z99.89 3. Recurrent major depressive disorder, in partial remission (HCC) F33.41 Stable on meds. 4. Mixed hyperlipidemia E78.2 LIPID PANEL BASIC Follw up labs ordered 5. Chronic fatigue R53.82 COMP METABOLIC PANEL CBC 6. Generalized anxiety disorder F41.1 7. Asymptomatic postmenopausal status Z78.0 DXA-AXIAL SKELETON 8. Encounter for long-term current use of medication Z79.899 COMP METABOLIC PANEL CBC LIPID PANEL BASIC Above issues addressed with patient. Patient involved in shared decision making for management of medical issues. History and medications reviewed. Epic updated as needed Refills and/or prescriptions taken care of and meds adjusted as indicated after reviewed history, exam and labs. Health Maintenance reviewed. Updated record and/or ordered tests as recorded. Encouraged on efforts at healthy diet and regular exercise and adequate sleep. Stable on current meds. No acute concerns to address today. Elevated BP and HR attributed to provider running behind and patient late for daughter's birthday dinner at her house. Continue present meds.Continue present management. Eriberto Tovar MD documented in this encounterSalem [facility] Center01-20-2023 Miscellaneous Notes* Telephone Encounter - Kiersten Swenson [facility] [place] - 04/24/2022 3:36 PM EST Patient has been identified by name and date of : Yes Requested Prescriptions Pending Prescriptions Disp Refills terconazole (TERAZOL 7) 0.4 % vaginal cream 135 g 1 Sig: USE 1 APPLICATOR VAGINALLY DAILY AT BEDTIME FOR 7 DAYS. REPEAT DIRECTED FOR RECURRENCE RX INSTRUCTIONS: Please send this RX today if possible Patient aware RX will be sent to pharmacy. No need to notify patient. [place]iersten Swenson [facility] [place] documented in this encounterSalem [facility] Center01-17-2023 Instructions* Patient Instructions* Asiya Boyle PA-C - 04/21/2022 5:40 PM EST [facility] PATIENT INFO PHARYNGITIS OVERVIEW A sore throat (pharyngitis) is a common problem, and usually is caused by a viral or bacterial infection. Sore throat usually resolves on its own without complications in adults, although it is important to know when to seek medical attention. Viruses can cause a sore throat and other upper respiratory infections, such as the common cold. Sore throat caused by a virus is not treated with antibiotics, but instead may be treated with rest, pain medication, and other therapies aimed at relieving symptoms. Strep throat is a particular kind of pharyngitis that is caused by a bacterium known as group A streptococcus (GAS). Strep throat is treated with a course of antibiotics. SORE THROAT SYMPTOMS Viral pharyngitis -- Most people with a sore throat have a virus. The most common viruses are thosethat cause upper respiratory infections, such as the common cold. Symptoms of a viral infection can include: A runny or congested nose Irritation or redness of the eyes Cough, hoarseness, or soreness in the roof of the mouth Some viruses cause a fever and can make you feel quite ill. Strep throat -- Approximately 10 percent of adults with a sore throat have strep throat. Signs and symptoms of strep throat include the following: Pain in the throat Fever (temperature greater than 100.4 F or 38 C) Enlarged lymph glands in the neck White patches of pus on the side or back of the throat No cough, runny nose, or irritation/redness of the eyes Other infections -- Many other less common but more serious infections can cause a sore throat, including mononucleosis (mono), influenza (the flu), N. gonococcus (gonorrhea), human immunodeficiency virus (HIV), and others. When to seek urgent help -- See your doctor or nurse immediately if you have a sore throat along with any of the following: Difficulty breathing Skin rash Drooling because you cannot swallow Swelling of the neck or tongue Stiff neck or difficulty opening the mouth SORE THROAT DIAGNOSIS Most people with a sore throat get better without treatment. There is no specific treatment for a sore throat caused by usual cold viruses. Is it strep or not? -- A combination of symptoms (fever, enlarged glands in the neck, white patcheson your tonsils, and no cough) can help in determining if you have strep. If you have two or more symptoms, a rapid test or throat culture may be done. People with fewer than two symptoms usually do not need testing or treatment for strep throat. Rapid test -- The rapid test determines if there are streptococcus bacteria on a throat swab. The test can be done in a clinician's office and the results are available within a few minutes. The testis accurate in most cases, although a small percentage of tests are falsely negative (the bacteria are present but the test is negative). Throat culture -- A throat culture involves swabbing the throat, sending the swab to a laboratory, and waiting 24 to 48 hours for the results. Throat cultures are slightly more accurate than the rapid test. TREATMENT OF SORE THROAT Sore throat treatment -- Antibiotics do not help throat pain caused by a virus and are not recommended. Sore throat caused by viral infections usually lasts four to five days. During this time, treatments to reduce pain may be helpful. Several therapies can help to relieve throat pain. Pain medication -- You can treat your throat pain with a mild pain reliever such as acetaminophen (Tylenol ) or a non-steroidal anti-inflammatory agent such as ibuprofen or naproxen (Motrin or Aleve ). Oral rinses -- Salt-water gargles are an old stand-by for throat pain. It is not clear that salt water works to relieve pain, but it is unlikely to be harmful. Most recipes suggest 1/4 to 1/2 teaspoon of salt per one cup (8 ounces) of warm water. Sprays -- Sprays containing topical anesthetics (eg, benzocaine, phenol) are available to treat sore throat. However, such sprays are no more effective than sucking on hard candy. Lozenges -- A variety of lozenges (cough drops) are available to treat throat pain or relieve dryness. However, it is not clear that lozenges work any better than other forms of hard candy, which aregenerally less expensive. Other treatments -- Other treatments that may help with throat pain include sipping warm beverages (eg, honey or lemon tea, chicken soup), cold beverages, or eating cold or frozen desserts (eg, ice cream, popsicles). Alternative therapies -- Health food stores, vitamin outlets, and Internet Web sites offer alternative treatments for relief of sore throat pain. We do not recommend these type of treatments due to the risks of contamination with pesticides/herbicides, inaccurate labeling and dosing information, and a lack of studies showing that these treatments are safe and effective. Strep throat -- Although strep throat typically resolves on its own within two to five days, treatment with antibiotics is recommended for adults whose rapid test or throat culture is positive for strep throat. Penicillin, or an antibiotic related to penicillin, is the treatment of choice for strep throat. Itis usually given in pill or liquid form two to four times per day for 10 days. A one time injectionof penicillin is also available. People who are allergic to penicillin are given an alternate antibiotic. It is important to finish the entire course of treatment to completely eliminate the infection. If symptoms do not begin to improve or worsen by three days of antibiotic treatment, you should seeyour doctor or nurse again. Return to work/school -- If you have been diagnosed with strep throat, stay home from work or school until you have completed 24 hours of antibiotics. Within 24 hours of beginning antibiotic treatment, you will feel better and will be less contagious [1]. If you have a sore throat (not diagnosed as strep), you may participate in your usual activities assoon as you feel well. SORE THROAT PREVENTION Hand washing is an essential and highly effective way to prevent the spread of infection. Wet your hands with water and plain soap, and rub them together for 15 to 30 seconds. Pay special attention to the fingernails, between the fingers, and the wrists. Rinse your hands thoroughly, and dry them with a clean towel. Alcohol-based hand rubs are a good alternative for disinfecting hands if a sink is not available. Hand rubs should be spread over the entire surface of hands, fingers, and wrists until dry, and may be used several times. These rubs can be used repeatedly without skin irritation or loss of effectiveness. Hand rubs are available as a liquid or wipe in small, portable sizes that are easy to carry in a pocket or handbag. When a sink is available, visibly soiled hands should be washed with soap and water. Wash your hands after coughing, blowing the nose, or sneezing. While it is not always possible to avoid being near a person who is sick, avoiding touching your eyes, nose, or mouth to prevent the spread of infection. In addition, tissues should be used to cover the mouth when sneezing or coughing. These used tissues should be disposed of promptly. Sneezing/coughing into your sleeve (at the inner elbow) is anotherway to contain sprays of saliva and secretions and will not contaminate your hand documented in this encounterSalem Regional Medical Center01-17-2023 History of Present illness Narrative* Asiya Boyle PA-C - 04/21/2022 5:15 PM EST Subjective HPI HPI Martine Landaverde is a 66 year old female who presents today for CC of sore throat, fever, and headache x 1 day. Fever clarified as low grade elevation- Tmax at home was 99.9. Was txed w/ Augmentin on 04/12 for suspected sinusitis. Improved for about 2-3 days, then started in with symptoms Pt has tried Volatren, which she states she is on for arthritis. Has also taken Tylenol. BP 144/84 Pulse 81 Temp 36.6 C (97.8 F) (Tympanic) Resp 16 Wt 80.5 kg (177 lb 6.4 oz) LMP10/02/2007 SpO2 98% BMI 27.78 kg/m ALLERGIES Allergen Reactions Sulfa (Sulfonamide * Hives ACTIVE PROBLEM LIST Fibromyalgia Insomnia, Unspecified Chronic Fatigue Recurrent Major Depressive Disorder, in Partial Remission (Hcc) Anemia, Unspecified Degeneration of Intervertebral Disc, Site Unspecified Bunion Dyspareunia Obstructive Sleep Apnea Generalized Anxiety Disorder Family History Problem Relation Age of Onset Alzheimer's Disease Mother Coronary Artery Disease Mother 35 35 at first [place] Ischemic Heart Disease Mother Stroke Mother Coronary Artery Disease Brother 57 2 MIs Breast Cancer Maternal Grandmother Coronary Artery Disease Maternal Grandfather Ischemic Heart Disease Maternal Grandfather Stroke Maternal Grandfather Breast Cancer Paternal Grandmother Social History Tobacco Use Smoking status: Never Smokeless tobacco: Never Vaping Use Vaping Use: Never used Substance Use Topics Alcohol use: No Drug use: No Review of Systems Constitutional: Negative for chills, fever and malaise/fatigue. HENT: Positive for sore throat. Negative for congestion, ear pain and sinus pain. Respiratory: Negative for cough, sputum production, shortness of breath and wheezing. Cardiovascular: Negative for chest pain. Neurological: Positive for headaches. Objective BP 144/84 Pulse 81 Temp 36.6 C (97.8 F) (Tympanic) Resp 16 Wt 80.5 kg (177 lb 6.4 oz) LMP10/02/2007 SpO2 98% BMI 27.78 kg/m Physical Exam Constitutional: General: She is not in acute distress. Appearance: She is not toxic-appearing. HENT: Head: Normocephalic. Right Ear: Tympanic membrane, ear canal and external ear normal. No drainage. No middle ear effusion. Tympanic membrane is not perforated, erythematous, retracted or bulging. Left Ear: Ear canal normal. No drainage. No middle ear effusion. Tympanic membrane is not perforated, erythematous, retracted or bulging. Nose: No rhinorrhea. Right Sinus: No maxillary sinus tenderness or frontal sinus tenderness. Left Sinus: No maxillary sinus tenderness or frontal sinus tenderness. Mouth/Throat: Pharynx: Uvula midline. Posterior oropharyngeal erythema present. No pharyngeal swelling or oropharyngeal exudate. Tonsils: No tonsillar abscesses. Comments: Scant amount of white exudate noted posterior oropharyngeal wall Eyes: General: Lids are normal. Conjunctiva/sclera: Conjunctivae normal. Cardiovascular: Rate and Rhythm: Normal rate and regular rhythm. Heart sounds: S1 normal and S2 normal. No friction rub. Pulmonary: Effort: Pulmonary effort is normal. Breath sounds: Normal breath sounds. No wheezing, rhonchi or rales. Lymphadenopathy: Head: Right side of head: No submental, submandibular, tonsillar, preauricular, posterior auricular or occipital adenopathy. Left side of head: No submental, submandibular, tonsillar, preauricular, posterior auricular or occipital adenopathy. Cervical: Right cervical: No superficial or posterior cervical adenopathy. Left cervical: No superficial or posterior cervical adenopathy. Neurological: Mental Status: She is alert and oriented to person, place, and time. Psychiatric: Behavior: Behavior is cooperative. ASSESSMENT/PLAN: 1. Sore throat - ICD9: 462, ICD10: J02.9 - suspect viral - Alere Strep Test negative, no culture pending - Advise salt water gargles; Rx for viscous lidocaine gargles to assist with discomfort in the interim as well. Can CCM w/ voltaren and Tylenol. - Call back if drooling, increased temperature, symptoms of dehydration and/or still sick in one week - STREP A MOLECULAR (POC) - LIDOCAINE HCL 2 % MUCOSAL SOLUTION Pt advised to see PCP if symptoms persist or progress. Reviewed red flags with patient and when to seek care sooner. The patient indicates understanding of these issues and agrees with the plan. Asiya Boyle PA-C documented in this encounterSalem [facility] Medical Center01-09-2023 Miscellaneous Notes* Telephone Encounter - Rhea Rees RN - 04/13/2022 4:07 PM EST Patient returned call and given provider's message below and patient verbalized understanding. Jaye Rees RN * Telephone Encounter - Ashley Caro - 04/13/2022 9:16 AM EST Left message for patient to return call. Ashley Caro * Telephone Encounter - Kailey Perez APRN.CHERIE - 04/13/2022 7:16 AM EST Negative for flu and COVID please notify documented in this encounterSalem Regional Medical Center01-08-2023 History of Present illness Narrative* SHERIDAN Soto - 04/12/2022 3:31 PM EST This note was created using [employer]. Subjective Martine Landaverde is a 66 year old female. HPI 66-year-old female presents for headache, sinus congestion, sore throat. Patient states headache and congestion started about 10 days ago. Sore throat started 4 days ago. She is still eating and drinking. No fevers. She does report mild cough as well. No vomiting or diarrhea. No sick contacts that she is aware of Review of Systems Constitutional: Negative for chills and fever. HENT: Positive for congestion, sinus pressure and sore throat. Negative for ear pain. Respiratory: Positive for cough. Negative for shortness of breath. Cardiovascular: Negative for chest pain. Gastrointestinal: Negative for diarrhea and vomiting. Objective BP 134/80 Pulse 76 Temp 36.8 C (98.3 F) Resp 16 Wt 78.9 kg (174 lb) LMP 10/02/2007 [id number]% BMI 27.25 kg/m Physical Exam Vitals and nursing note reviewed. Constitutional: General: She is not in acute distress. Appearance: Normal appearance. She is not toxic-appearing. HENT: Right Ear: Tympanic membrane and ear canal normal. Left Ear: Tympanic membrane and ear canal normal. Nose: Congestion present. Right Sinus: Frontal sinus tenderness present. Left Sinus: Frontal sinus tenderness present. Mouth/Throat: Mouth: Mucous membranes are moist. Pharynx: Posterior oropharyngeal erythema present. No oropharyngeal exudate. Tonsils: No tonsillar exudate. 0 on the right. 0 on the left. Eyes: Conjunctiva/sclera: Conjunctivae normal. Cardiovascular: Rate and Rhythm: Normal rate and regular rhythm. Pulmonary: Effort: Pulmonary effort is normal. Breath sounds: Normal breath sounds. Neurological: Mental Status: She is alert. Assessment and Plan ASSESSMENT/PLAN: 1. Acute cough - ICD9: 786.2, ICD10: R05.1 (primary diagnosis) - COVID WITH FLUA+B, ROUTINE -Out of window for Tamiflu 2. Acute frontal sinusitis, recurrence not specified - ICD9: 461.1, ICD10: J01.10 - Will begin treatment with as per antibiotic as written, see orders -Symptoms have been for 10 days. Will start Augmentin. SHERIDAN Soto documented in this encounterSalem Regional Medical Center11-10-2022 Miscellaneous Notes* Telephone Encounter - Marily Quiñones Ma - 02/12/2022 1:10 PM EST Notified via [employer]. Marily Quiñones Ma * Telephone Encounter - Eriberto Tovar MD - 02/12/2022 11:56 AM EST Need to reschedule follow up--she cancelled May appointment The following approved medication requests have been transmitted electronically. Requested Prescriptions Signed Prescriptions Disp Refills gabapentin (NEURONTIN) 400 mg capsule 360 capsule 0 Sig: Take 1 capsule by mouth four times daily for 90 days. Authorizing Provider: ERIBERTO TOVAR MD * Telephone Encounter - Rossy Mendoza LPN - 02/12/2022 8:14 AM EST Last office visit: 02/03/21 Next appointment scheduled: No future appointments scheduled at this time. Last labs: 01/23/20 Patient phones requesting refills as follows: Requested Prescriptions Pending Prescriptions Disp Refills gabapentin (NEURONTIN) 400 mg capsule 360 capsule 3 Sig: Take 1 capsule by mouth four times daily for 180 days. Please review and advise. Rossy Mendoza LPN documented in this encounterSalem Regional Medical Center11-10-2022 Miscellaneous Notes* Telephone Encounter - Eriberto Tovar MD - 02/12/2022 12:03 PM EST The following approved medication requests have been transmitted electronically. Requested Prescriptions Prescriptions Disp Refills lisinopril (PRINIVIL) 10 mg tablet 90 tablet 3 Sig: Take 1 tablet by mouth once daily. Eriberto Tovar MD * Telephone Encounter - Rossy Mendoza LPN - 02/12/2022 8:18 AM EST Last office visit: 02/03/21 Next appointment scheduled: No future appointments scheduled at this time. Last labs: 01/23/20 Patient phones requesting refills as follows: Requested Prescriptions Pending Prescriptions Disp Refills lisinopril (PRINIVIL) 10 mg tablet 90 tablet 3 Sig: Take 1 tablet by mouth once daily. Please review and advise. Rossy Mendoza LPN documented in this encounterSalem [facility] Medical Center11-10-2022 Miscellaneous Notes* Telephone Encounter - Eriberto Tovar MD - 02/12/2022 12:01 PM EST The following approved medication requests have been transmitted electronically. Requested Prescriptions Signed Prescriptions Disp Refills venlafaxine ER (EFFEXOR XR) 150 mg 24 hr capsule 180 capsule 0 Sig: Take 1 capsule by mouth twice daily. Authorizing Provider: ERIBERTO TOVAR MD * Telephone Encounter - Rossy Mendoza LPN - 02/12/2022 8:17 AM EST Last office visit: 02/03/21 Next appointment scheduled: No future appointments scheduled at this time. Last labs: 01/23/20 Patient phones requesting refills as follows: Requested Prescriptions Pending Prescriptions Disp Refills venlafaxine ER (EFFEXOR XR) 150 mg 24 hr capsule 180 capsule 3 Sig: Take 1 capsule by mouth twice daily. Please review and advise. Rossy Mendoza LPN documented in this [facility]10-23-2022 Instructions* Patient Instructions* Raina Tse APRN.CHERIE - 01/25/2022 2:12 PM EDT Rest, increase water intake Motrin or Tylenol as needed for fever or pain. Salt water gargles, chloraseptic spray or lozenges as needed for sore throat. Warm beverages, honey. Nasal saline spray as needed Cool mist humidifier at night Tylenol (generic acetaminophen) 500 mg-2 tabs every 8 hrs. as needed for fever and aches Ibuprofen 600 mg (3-200mg tablets) every 6 hours -Mucinex (generic is fine) Guaifenesin 1200 mg twice daily to help with cough and to thin out mucus Continue flonase Afrin for 3 days only Zyrtec 10 mg By mouth daily at bedtime [facility] History of Present illness Narrative* Raina Tse APRN.CHERIE - 01/25/2022 2:08 PM EDT Subjective The history is provided by the patient. No speech language therapist was used. HPI Martine Landaverde is a 66 year old female who presents today for CC of nasal congestion, sinus pressure, ear pressure, that started on Wednesday. She is also having post nasal drainage and headache. She has used tylenol with little relief. She also used flonase at bedtime daily. H/o HTN, covid on 01.01.2022. States symtpoms completely resolved from covid. BP 136/80 Pulse 82 Temp 36.8 C (98.2 F) Resp 18 Wt 79.7 kg (175 lb 12.8 oz) LMP 10/02/2007 SpO2 97% BMI 27.53 kg/m Social History Tobacco Use Smoking status: Never Smokeless tobacco: Never Vaping Use Vaping Use: Never used Substance Use Topics Alcohol use: No Drug use: No 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) Myalgia and myositis, unspecified Obstructive sleep apnea Not treating because of cost Other kyphoscoliosis and scoliosis SPURS/VERTEBRAE Other specified iron deficiency anemias Unspecified sleep apnea I have confirmed and edited as necessary, the [facility] Review of Systems Constitutional: Negative for chills and fever. HENT: Positive for congestion, ear pain (pressure bilatera) and sinus pain. Negative for sore throat. Respiratory: Negative for cough, sputum production, shortness of breath and wheezing. Cardiovascular: Negative for chest pain. Musculoskeletal: Negative for myalgias. Neurological: Positive for headaches (sinus). Objective Physical Exam Vitals and nursing note reviewed. HENT: Head: Normocephalic and atraumatic. Right Ear: Ear canal and external ear normal. A middle ear effusion is present. Tympanic membrane is bulging. Left Ear: Ear canal and external ear normal. A middle ear effusion is present. Tympanic membrane isbulging. Nose: Mucosal edema, congestion and rhinorrhea present. Right Sinus: No maxillary sinus tenderness or frontal sinus tenderness. Left Sinus: No maxillary sinus tenderness or frontal sinus tenderness. Mouth/Throat: Pharynx: Uvula midline. No oropharyngeal exudate or posterior oropharyngeal erythema. Cardiovascular: Rate and Rhythm: Normal rate and regular rhythm. Heart sounds: Normal heart sounds. Pulmonary: Effort: Pulmonary effort is normal. Breath sounds: Normal breath sounds. Lymphadenopathy: Head: Right side of head: No submental, submandibular or tonsillar adenopathy. Left side of head: No submental, submandibular or tonsillar adenopathy. Cervical: No cervical adenopathy. Skin: General: Skin is warm and dry. Neurological: Mental Status: She is alert. Psychiatric: Mood and Affect: Affect normal. ASSESSMENT/PLAN: 1. URI, acute - ICD9: 465.9, ICD10: J06.9 Appears to be new viral infection - Discussed viral etiology and rationale for treatment. - Symptomatic treatment with prn analgesia - Supportive care with fluids and rest Diagnosis and treatment plan were discussed and questions were answered to the patient's satisfaction. Pt acknowledged understanding of concepts and follow up plan. Specific signs and symptoms that would indicate the need for higher level of care were discussed indetail warranting prompt ER evaluation. Raina Tse APRN.CHERIE documented in this [facility]29-[facility]22 Instructions* Patient Instructions* Felicita Durán - 01/01/2022 5:21 PM EDT ASSESSMENT/PLAN: 1. Sore throat - ICD9: 462, ICD10: J02.9 (primary diagnosis) - Rapid Strep negative in the office today - STREP A MOLECULAR (POC) 2. Suspected COVID-19 virus infection - ICD9: V01.79, ICD10: Z20.822 - COVID WITH FLUA+B, ROUTINE - Supportive care at home as provided in education instructions 3. Impacted cerumen of right ear - ICD9: 380.4, ICD10: H61.21 - Right ear lavaged in office - Unable to fully visualize R tympanic membrane after lavage Felicita Durán APRN Student How to Manage Common Symptoms Associated with COVID for Adults Fever- Fever is a temperature over 100.4 F and can occur when the body is fighting an infection. Tohelp treat a fever: Drink plenty of fluids and stay well hydrated. Eat small amounts of easy to digest food. Rest. Your body needs rest to recover, but getting up and moving around the house frequently is a good idea. You should try to continue doing your normal daily activities (bathing, toileting, grooming, cooking), though you will probably feel tired, and need to rest often. Avoid any heavy activity or exercise, as this will increase your body temperature. Dress in light clothing and stay covered in a light sheet. Keep the room temperature cool. Take a slightly warm (not cold or cool) bath, or apply damp washcloths to the forehead and wrists. Cough- Cough is a common symptom associated with COVID and can be bothersome. To help treat a cough: Stay well hydrated. Try warm water or tea with lemon and/or honey to help soothe the cough. Use a humidifier to add moisture to the air. Try a product with menthol, like a cough drop or a rub for your chest such as Vicks, which can helpreduce cough. Try cough drops. Avoid smoking and other strong odors or perfumes. Try breathing exercises to keep your lungs open and clear. Take a big deep breath through your noseand hold for 5 seconds before slowly releasing. Repeat frequently, while you are awake. Congestion- Runny nose or nasal congestion can occur with COVID. Treatment can help relieve symptoms: Try OTC nasal saline spray, or nasal saline rinse to relieve mucus congestion. Nasal strips can help keep nasal passages open, to increase airflow. Elevating your head with an extra pillow in bed can help reduce congestion. Using a humidifier can increase moisture in the air, and make breathing easier. Sore Throat- Another common symptom with COVID, can be managed at home by: Stay well hydrated. Gargle with salt water - mix teaspoon salt with 1 cup of warm water and gargle. This helps to loosen mucus in the back of the throat and may reduce discomfort. Try ice chips, popsicles or lozenges to soothe the throat. Nausea/Vomiting/Diarrhea- These are common symptoms, and staying hydrated is most important. If you are nauseous or vomiting, start with small sips of water every 10-15 minutes and increase astolerated. You can try sucking an ice cube too. If tolerating, you can try pedialyte or Gatorade, or flat sprite or [id number]. Start slowly and increase as you are able to. Instead of meals, try smaller, more frequent snacks. Try eating bland foods like crackers, toast, rice, and applesauce. Avoid spicy, greasy or fried foods and dairy containing foods. Even if you aren't feeling hungry due to lack of smell or taste, it is important to try to take in some food when you are able. After drinking and eating, rest in an upright position for up to two hours as needed to help decrease nauseous feelings. Try closing your eyes, avoid moving and watching TV. Avoid strong odors that can make you feel more nauseated. When to seek emergency medical attention Look for emergency warning signs for COVID-19. If having any of these symptoms, seek emergency medical care immediately: Trouble breathing Persistent pain or pressure in the chest New confusion Inability to wake or stay awake Bluish lips or face *This list is not all possible symptoms. Please call your medical provider for any other symptoms that are severe or concerning to you. Beginning Home Isolation Isolation is used to separate people infected with SARS-CoV-2, the virus that causes COVID-19, frompeople who are not infected. People who are in isolation should stay home until it s safe for them to be around others. In the home, anyone sick or infected should separate themselves from others by staying in a specific sick room or area and using a separate bathroom (if available). Isolation or Quarantine: What's the difference? Quarantine keeps someone who might have been exposed to the virus away from others. Isolation keeps someone who is infected with the virus away from others, even in their home. Who needs to isolate People who have COVID-19 People who have symptoms of COVID-19 and are able to recover at home People who have no symptoms (are asymptomatic) but have tested positive for infection with SARS-CoV-2 Steps to take Stay home except to get medical care Monitor your symptoms. Stay in a separate room from other household members, if possible Use a separate bathroom, if possible Avoid contact with other members of the household and pets Don t share personal household items, like cups, towels, and utensils Wear a mask when around other people, if you are able to When to seek emergency medical attention Look for emergency warning signs* for COVID-19. If someone is showing any of these signs, seek emergency medical care immediately: Trouble breathing Persistent pain or pressure in the chest New confusion Inability to wake or stay awake Bluish lips or face *This list is not all possible symptoms. Please call your medical provider for any other symptoms that are severe or concerning to you. Call 911 or call ahead to your local emergency facility: Notify the loading unit operator seating that you are seeking care for someone who has or may have COVID-19. Ending Home Isolation - When you can be around others after you had or likely had COVID-19 When you can be around others after you had or likely had COVID-19 If You Test Positive for COVID-19 (Isolation) Everyone, regardless of vaccination status: Stay home for 5 days. Note: Day 0 is your first day of symptoms or the date of collection of a positive viral test if no symptoms. Day 1 is the first full day after symptoms developed or test specimen was collected. If you have no symptoms or your symptoms are resolving after 5 days, you can leave your house. Continue to wear a mask around others for 5 additional days. If you have a fever, continue to stay home until your fever resolves, even if it is longer than 5 days. If You Were Exposed to Someone with COVID-19 (Quarantine) If you: 1. Have been boosted OR 2. Completed the primary series of Pfizer or Moderna vaccine within the last 6 months OR 3. Completed the primary series of J&J vaccine within the last 2 months THEN: 1. Wear a mask around others for 10 days. 2. Test on day 5, if possible. If you develop symptoms get a test and stay home. If You Were Exposed to Someone with COVID-19 (Quarantine) If you: 1. Completed the primary series of Pfizer or Moderna vaccine over 6 months ago and are not boosted OR 2. Completed the primary series of J&J over 2 months ago and are not boosted OR 3. Are unvaccinated THEN: 1. Stay home for 5 days. After that continue to wear a mask around others for 5 additional days. 2. If you can't quarantine you must wear a mask for 10 days. 3. Test on day 5 if possible. If you develop symptoms get a test and stay home. I had COVID-19 or I tested positive for COVID-19 and I have a weakened immune system If you have a weakened immune system (immunocompromised) due to a health condition or medication, you might need to stay home and isolate longer than 10 days. Talk to your healthcare provider for more information. Your doctor may work with an infectious disease expert at your local health department to determinewhen you can be around others. documented in this [facility]09-29-2022 History of Present illness Narrative* Martha Meier, COCOA ROOM OPERATOR.BODY TEAM MEMBER - 01/01/2022 5:06 PM EDT Subjective Cough Associated symptoms include chills, ear pain (right), headaches and sore throat. Pertinent negatives include no shortness of breath, no wheezing and no eye redness. Martine Landaverde is a 66 year old female who presents with cough, congestion, sore throat, headache, chills and right ear pain x 2 days.Denies any abdominal symptoms. Pt states that Tmax at home was 99.4 F. Only salt water gargling tried at home. Pt denies contact with other sick persons. Review of Systems Constitutional: Positive for chills and malaise/fatigue. HENT: Positive for congestion, ear pain (right) and sore throat. Negative for sinus pain. Eyes: Negative for discharge and redness. Respiratory: Positive for cough. Negative for sputum production, shortness of breath and wheezing. Gastrointestinal: Negative for abdominal pain, constipation, diarrhea, nausea and vomiting. Skin: Negative for rash. Neurological: Positive for headaches. BP 128/82 Pulse 78 Temp 36.4 C (97.6 F) (Tympanic) Resp 18 Wt 78.7 kg (173 lb 9.6 oz) LMP10/02/2007 SpO2 96% BMI 27.19 kg/m 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) Myalgia and myositis, unspecified Obstructive sleep apnea Not treating because of cost Other kyphoscoliosis and scoliosis SPURS/VERTEBRAE Other specified iron deficiency anemias Unspecified sleep apnea PAST SURGICAL HISTORY Procedure Laterality Date ARTHRD ANT NTRBD MIN DSC EA ADDL INTERSPACE COLONOSCOPY FLX DX W/COLLJ SPEC WHEN PFRMD 10/17/2008 COLONOSCOPY SCREENING 12/05/2013 10 yr interval CORRECT BUNION,SIMPLE LEFT FOOT X 2 CRYO CAUTERY CERVIX DILATION & CURETTAGE DX&/THER NONOBSTETRIC Dilation & curettage EGD TRANSORAL BIOPSY SINGLE/MULTIPLE 10/17/2008 gastritis PAST SURGICAL HISTORY OF 03/03/2001 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 ALLERGIES Sulfa (Sulfonamide Antibiotics) MEDICATIONS clobetasol (TEMOVATE) 0.05 % ointment Apply 1 application to affected area twice daily. TO AFFECTEDAREA as directed. diclofenac, EC, (VOLTAREN) 75 mg EC tablet Take 1 tablet by mouth twice daily. For pain/inflammation. Take with food. tiZANidine (ZANAFLEX) 4 mg tablet TAKE 1 TABLET BY MOUTH AT BEDTIME, MAY TAKE DOSE DURING THE DAY NEEDED CPAP Initiate CPAP @ 9 cm of water with humidification. Mask (per patient preference) optional chinstrap (if indicated) , filters, tubing, humidifier and lifetime supplies. traMADol (ULTRAM) 50 mg tablet twice daily. venlafaxine ER (EFFEXOR XR) 150 mg 24 hr capsule Take 1 capsule by mouth twice daily. lisinopril (PRINIVIL) 10 mg tablet Take 1 tablet by mouth once daily. diclofenac sodium (VOLTAREN) 1 % topical gel Apply 2-4 g to affected area four times daily as needed. As directed. Max 32 grams per 24 hour period. terconazole (TERAZOL 7) 0.4 % vaginal cream USE 1 APPLICATOR VAGINALLY DAILY AT BEDTIME FOR 7 DAYS.REPEAT DIRECTED FOR RECURRENCE CPAP CPAP @ 9 cm of water with humidification. Mask (per patient preference) optional chin strap (if indicated) , filters, tubing, humidifier and lifetime supplies. Dx. SHANNON G47.33 fluticasone (FLONASE) 50 mcg/actuation nasal spray Use 2 Sprays in each nostril once daily. CPAP CHIN STRAP, USED WITH CPAP DEVICE Ferrous Sulfate (IRON) 325 mg (65 mg iron) ORAL tablet Take 1 tablet by mouth twice daily. glucosam sul na/chondr galvan a na(GLUCOSAMINE-CHONDROITIN 3X 750 MG-600 MG TAB) Take 1 tablet twice daily. MAGNESIUM OXIDE 500 MG TAB Take 1 tablet twice daily. MELATONIN 3 MG TAB Take 10 mg by mouth. nightly cholecalciferol(VITAMIN D-3 1,000 UNIT CHEWABLE TAB) Take 2 tablets daily. methylsulfonylmethane(MSM 1,000 MG TAB) 1 tablet twice daily. vitamin b complex(B COMPLEX TAB) Take one(1) tablet daily. VITAMIN E 400 UNIT CAP Take one(1) tablet daily. CALCIUM 600 + D(3) 600 MG-200 UNIT TAB Take one(1) tablet twice daily. MULTIVITAMIN TAB Take one(1) tablet daily. gabapentin (NEURONTIN) 400 mg capsule Take 1 capsule by mouth four times daily for 180 days. FAMILY HISTORY Problem Relation Age of Onset Alzheimer's Disease Mother Coronary Artery Disease Mother 35 35 at first [place] Ischemic Heart Disease Mother Stroke Mother Coronary Artery Disease Brother 57 2 MIs Breast Cancer Maternal Grandmother Coronary Artery Disease Maternal Grandfather Ischemic Heart Disease Maternal Grandfather Stroke Maternal Grandfather Breast Cancer Paternal Grandmother Social History Tobacco Use Smoking status: Never Smokeless tobacco: Never Vaping Use Vaping Use: Never used Substance Use Topics Alcohol use: No Drug use: No Objective Physical Exam Vitals and nursing note reviewed. Constitutional: Appearance: Normal appearance. HENT: Head: Normocephalic. Right Ear: There is impacted cerumen. Left Ear: Tympanic membrane and ear canal normal. Nose: Congestion present. No rhinorrhea. Mouth/Throat: Pharynx: Posterior oropharyngeal erythema (slight) present. Tonsils: 0 on the right. 0 on the left. Eyes: Conjunctiva/sclera: Conjunctivae normal. Pupils: Pupils are equal, round, and reactive to light. Cardiovascular: Rate and Rhythm: Normal rate and regular rhythm. Pulmonary: Effort: Pulmonary effort is normal. Breath sounds: Normal breath sounds. Abdominal: Palpations: Abdomen is soft. Lymphadenopathy: Cervical: No cervical adenopathy. Skin: General: Skin is warm and dry. Neurological: Mental Status: She is alert. ASSESSMENT/PLAN: 1. Sore throat - ICD9: 462, ICD10: J02.9 (primary diagnosis) - Rapid Strep negative in the office today - STREP A MOLECULAR (POC) 2. Suspected COVID-19 virus infection - ICD9: V01.79, ICD10: Z20.822 - COVID WITH FLUA+B, ROUTINE - Supportive care at home as provided in education instructions 3. Impacted cerumen of right ear - ICD9: 380.4, ICD10: H61.21 - Right ear lavaged in office - Unable to fully visualize R tympanic membrane after lavage due to remaining cerumen. Patient advised to use ear wax softening drops at home for the next week, then have ear re-checked. Felicita Durán APRN Student TEACHING PROVIDER (Physician/PA/COCOA ROOM OPERATOR) NOTE OF PERSONAL INVOLVEMENT IN CARE: I have personally seen and examined the patient and performed the medical decision-making components. I have reviewed the Advanced Practice Registered Nurse (COCOA ROOM OPERATOR) Student's documentation and verified the findings in the note as written. Any additions or changes are noted in bold/italics. Signature: Martha Meier Date: 01/01/2022 Time: 6:30 PM documented in this encounterSal[facility]08-03-2022 Miscellaneous Notes* Telephone Encounter - Merly Powell APRN.CNP - 11/05/2021 2:22 PM EDT Noted Merly Powell APRN.CNP * Telephone Encounter - Manda Welch RN - 11/05/2021 11:58 AM EDT Patient calls to let provider know that she has been feeling ill since WednesdayNovember 01. Symptoms include: a fever (current temperature is 99.0), sore throat, and headache. No chest pain, SOB, cough, congestion, fatigue, nausea, vomiting, or diarrhea. Patient treating headache with OTC tylenol with some relief. Sore throat has subsided. Patient received Covid vaccinations and one booster shot. Last Pfizer booster on 02/13/2021. Offered to schedule a VV or UC. Patient going to take a Home Covid Test and possibly proceed to UC.Patient to phone back with further questions/concerns. Care advice and red flag symptoms reviewed with patient. Manda Welch RN documented in this [facility]Sal[facility]08-[facility]-2022 History of Present illness Narrative* Abraham Garcia MD - 11/05/2021 12:42 PM EDT Patient presents with: Sore Throat: cough, fever, REICH x 5 days HPI: Feeling sick for 5 days. Positive symptoms: tiny lingering Cough from COVID, improving Sore throat, Fever (99), Headache, Negative symptoms: Nasal Congestion, Rhinorrhea, Vomiting, Diarrhea, OTC: none. Had COVID illness in August. MEDICATIONS: Current Outpatient Medications Medication Sig clobetasol (TEMOVATE) 0.05 % ointment Apply 1 application to affected area twice daily. TO AFFECTEDAREA as directed. diclofenac, EC, (VOLTAREN) 75 mg EC tablet Take 1 tablet by mouth twice daily. For pain/inflammation. Take with food. tiZANidine (ZANAFLEX) 4 mg tablet TAKE 1 TABLET BY MOUTH AT BEDTIME, MAY TAKE DOSE DURING THE DAY NEEDED CPAP Initiate CPAP @ 9 cm of water with humidification. Mask (per patient preference) optional chinstrap (if indicated) , filters, tubing, humidifier and lifetime supplies. gabapentin (NEURONTIN) 400 mg capsule Take 1 capsule by mouth four times daily for 180 days. traMADol (ULTRAM) 50 mg tablet twice daily. venlafaxine ER (EFFEXOR XR) 150 mg 24 hr capsule Take 1 capsule by mouth twice daily. lisinopril (PRINIVIL) 10 mg tablet Take 1 tablet by mouth once daily. diclofenac sodium (VOLTAREN) 1 % topical gel Apply 2-4 g to affected area four times daily as needed. As directed. Max 32 grams per 24 hour period. terconazole (TERAZOL 7) 0.4 % vaginal cream USE 1 APPLICATOR VAGINALLY DAILY AT BEDTIME FOR 7 DAYS.REPEAT DIRECTED FOR RECURRENCE CPAP CPAP @ 9 cm of water with humidification. Mask (per patient preference) optional chin strap (if indicated) , filters, tubing, humidifier and lifetime supplies. Dx. SHANNON G47.33 fluticasone (FLONASE) 50 mcg/actuation nasal spray Use 2 Sprays in each nostril once daily. CPAP CHIN STRAP, USED WITH CPAP DEVICE Ferrous Sulfate (IRON) 325 mg (65 mg iron) ORAL tablet Take 1 tablet by mouth twice daily. glucosam sul na/chondr galvan a na(GLUCOSAMINE-CHONDROITIN 3X 750 MG-600 MG TAB) Take 1 tablet twice daily. MAGNESIUM OXIDE 500 MG TAB Take 1 tablet twice daily. MELATONIN 3 MG TAB Take 10 mg by mouth. nightly cholecalciferol(VITAMIN D-3 1,000 UNIT CHEWABLE TAB) Take 2 tablets daily. methylsulfonylmethane(MSM 1,000 MG TAB) 1 tablet twice daily. vitamin b complex(B COMPLEX TAB) Take one(1) tablet daily. VITAMIN E 400 UNIT CAP Take one(1) tablet daily. CALCIUM 600 + D(3) 600 MG-200 UNIT TAB Take one(1) tablet twice daily. MULTIVITAMIN TAB Take one(1) tablet daily. No current facility-administered medications for this visit. ALLERGIES: ALLERGIES Allergen Reactions Sulfa (Sulfonamide * Hives VITALS: BP 154/88 Pulse 80 Temp 36.7 C (98.1 F) Resp 21 Wt 77.4 kg (170 lb 9.6 oz) LMP 10/02/2007 SpO2 96% BMI 26.72 kg/m PHYSICAL EXAM: GEN: mildly ill appearing HEENT: PERRL, EOMI, conjunctiva clear Ears: canals clear. TMs without erythema, bulge, or effusion Sinuses: non-tender frontal sinus, non-tender maxillary sinuses Throat: moist mucous membranes, mild erythema, no exudate Neck: supple, no thyromegaly, no lymphadenopathy HEART: regular rate and rhythm, no murmurs LUNGS: clear to auscultation, no wheezes or crackles, no increased WOB ASSESSMENT/PLAN: 1. Sore throat - ICD9: 462, ICD10: J02.9 - suspect viral URI, differential includes COVID-19. - Discussed supportive care treatment with home isolation, rest, lozenges, gargles, and OTC analgesia. - Red flags to seek further treatment include chest pain, shortness of breath, and lethargy; in theER if severe. - 2019 CORONAVIRUS Abraham Garcia MD documented in this encounterSal[facility]07-28-2022 Instructions* Patient Instructions* Gabriela Britt APRN.BODY TEAM MEMBER - 10/30/2021 2:16 PM EDT How To Perform Pelvic Floor (Kegel) Exercises These exercises help to strengthen the pelvic floor muscles and can help improve bladder control for women. 1. You should have been instructed in the office how to contract these muscles. At home, you can insert two fingers in the vagina and feel the contraction of these muscles as you squeeze. We call these muscles the pelvic floor because they help support the pelvic organs, especially during coughing and sneezing. Squeezing the pelvic floor while standing feels like you are lifting the area around the vagina, and will interrupt the stream of urine while voiding. Once you are certain which muscles to use, do not exercise while urinating. Make sure you are not bearing down, squeezing your buttocks, or straining abdominally: these are not the muscles to be exercised. You may wish to place hands on your buttock muscles to keep these muscles relaxed while performing the exercises. 2. Squeeze these muscles as hard as you can for a slow count of five, eventually working up to a slow count of ten. Rest for 15 seconds, and then start another contraction. At first. these muscles may feel sore, just as other muscles may feel sore after exercise. 3. You should perform 50 squeezes every day: make sure every squeeze count by bailey as hard as you can! Many women try to do these exercises in sets of five or ten at a time. Remind yourself todo these exercises by starting them every time you are waiting at a red light, watching a television commercial, or on hold on the telephone. If you are having trouble concentrating, you may want to set aside a special time to perform sets of pelvic floor exercises. 4. In addition to the long, hard contractions you are doing try doing some quick flicks of these muscles throughout the day. 5. You should be seen in the office after starting these exercises to make sure you are performing the contraction correctly: you may have never known how to contract these muscles before starting pelvic floor exercises, and many patients mistakenly exercise the wrong muscles. If you still feel frustrated about which muscles to use ask us for help. There are physical therapy specialists who work with pelvic floor muscles. 6. Work hard! As with any exercise program, improvement often is related to how faithfully you adhere to your exercise program. Pelvic floor exercises do not have the side effects and expense associated with other treatments for urinary incontinence, and have been known to help with severe stress incontinence. It may take several months to see the full effect of your exercise program: if you are easily discouraged, see your doctor or doctor at regular visits to assess what progress you are making. Techniques to avoid urinary accidents: Empty your bladder regularly and prior to physical activity. Avoid activity that causes leakage, if possible. Avoid or moderate the intake of alcohol and caffeine products. Try to restrict fluids prior to planned activities. Wear appropriate protection. Prevent chronic coughing which can cause a loss of urinary control. Ways to prevent chronic coughing include treating asthma, restricting smoking, and removing allergy-causing agents from your environment. [facility] History of Present illness Narrative* Gabriela Britt APRN.CNP - 10/30/2021 1:49 PM EDT Superintendent Drivers offered: Patient declines. Tristian is a 65 year old who presents for an annual gynecologic exam without complaints. LS - has been out of clobetasol. Using twice a day keeps it well-controlled. Postmenopausal: Yes since age 50ish HRT use: Yes, 3 times weekly How long: many years. Last Pap: 2016 normal HPV: 2017 negative History of abnormal pap: Yes in 20s Last mammogram: 2020 normal History of abnormal mammogram: Yes biopsies on right breast - negative Sexually active: Yes Time with current partner: long-term Pain with intercourse: Yes - has had pain with insertion for years with no found cause. Pain less with use of extra lubricant. Postcoital bleeding: No Hot flashes: Yes, occasional Night sweats: No Vaginal dryness: Yes, [place] Documentation from previous visit of 03/16/2018 was copied and pasted, documentation has been reviewed and edited as necessary for today's visit. OB History T0 L2 SAB0 IAB0 Ectopic0 Multiple0 Live Births0 Media Developer History LMP: 10/02/2007, Postmenopausal Age at Menarche: Age at First : Age at Menopause: Media Developer History Comments: Sexual Activity: Yes; Male; Postmenopausal Contraception: Vasectomy 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) Myalgia and myositis, unspecified Obstructive sleep apnea Not treating because of cost Other kyphoscoliosis and scoliosis SPURS/VERTEBRAE Other specified iron deficiency anemias Unspecified sleep apnea PAST SURGICAL HISTORY Procedure Laterality Date ARTHRD ANT NTRBD MIN DSC EA ADDL INTERSPACE COLONOSCOPY FLX DX W/COLLJ SPEC WHEN PFRMD CORRECT BUNION,SIMPLE LEFT FOOT X 2 CRYO CAUTERY CERVIX DILATION & CURETTAGE DX&/THER NONOBSTETRIC Dilation & curettage EGD TRANSORAL BIOPSY SINGLE/MULTIPLE gastritis PAST SURGICAL HISTORY OF 03/03/2001 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 FAMILY HISTORY Problem Relation Age of Onset Alzheimer's Disease Mother Coronary Artery Disease Mother 35 35 at first [place] Ischemic Heart Disease Mother Stroke Mother Coronary Artery Disease Brother 57 2 MIs Breast Cancer Maternal Grandmother Coronary Artery Disease Maternal Grandfather Ischemic Heart Disease Maternal Grandfather Stroke Maternal Grandfather Breast Cancer Paternal Grandmother SOCIAL HISTORY Social History Tobacco Use Smoking status: Never Smoker Smokeless tobacco: Never Used Vaping Use Vaping Use: Never used Substance Use Topics Alcohol use: No Drug use: No REVIEW OF SYSTEMS Abdomen: No abdominal pain, nausea, vomiting, diarrhea, or constipation. No bloating, early satiety, indigestion, or increased flatulence. Bladder: No dysuria, gross hematuria, urinary frequency, urinary urgency, or incontinence Breast: No breast lumps, nipple d/c, overlying skin changes, redness or skin retraction Allergies and current medication updated:Yes EXAM: BP 128/76 Ht 5' 7 (1.70m) Wt 169 lb (76.7kg) LMP 10/02/2007 BMI 26.46 kg/(m^2). GENERAL: pleasant, female in no apparent distress HEENT: Normocephalic, atraumatic, mucus membranes moist and no lesions NECK: Supple, full range of motion, no adenopathy and thyroid normal DERMATOLOGY: Normal, without lesions, non-icteric and non-hirsute BREAST: soft, non-tender, symmetric, no dominant mass, normal nipple-areolar complex, no lymphadenopathy and no nipple discharge CHEST: Normal inspiratory effort ABDOMEN: soft, non-tender and no masses PELVIC: external genitalia normal, normal Bartholin's glands, urethra, Alleene's glands, no vulvar lesions, no cervical lesions, physiologic discharge present, normal appearing perineal body and perianal region, atrophiy BIMANUAL: uterus normal size, shape and consistency, no adnexal masses and non-tender RECTOVAGINAL: deferred. NEURO: alert and oriented x3,exam grossly non-focal EXTREMITIES: normal ASSESSMENT/PLAN: 1) Health maintenance: Pap done with HPV. Mammogram ordered Mammogram up to date Nutrition, exercise and routine health maintenance exams reviewed. Calcium/Vitamin D supplementation information provided. Colon cancer screening: up to date with screening BMD: will schedule, still has current order LS - Clobetasol sent to [facility], to use [facility] for affordable goodrich Revaree vaginal moisturizer recommended - given information. 2) Follow up one year or sooner as needed Gabriela Britt APRN.CNP documented [facility] this [facility]22 Instructions* Patient Instructions* Hayde Jay APRN.CNP - 09/03/2021 3:49 PM EDT RESPIRATORY INFECTION GENERAL INFORMATION: An upper respiratory tract infection, or cold, is a viral infection of the airway passages. It can be caused by any one of almost 200 different viruses. Common symptoms include a runny or stuffy nose, sneezing, watery eyes, sore throat, cough, and slight fever. Colds are contagious, especially during the first 3 or 4 days and cannot be cured by antibiotics. They are spread by coughs, sneezes, anddirect contact, especially [id number]. A respiratory tract infection usually clears up in a few days, but some people may be sick for a week or two. INSTRUCTIONS: 1. Be careful not to blow your nose too hard because this may cause a nosebleed. 2. Use a cool-mist humidifier (vaporizer) to increase air moisture. This will make it easier for you to breathe. Do not use hot steam. 3. Rest as much as possible and get plenty of sleep. 4. Wash your hands often, especially after you blow your nose. Cover your mouth and nose with a tissue when you sneeze or cough. 5. Drink plenty of clear fluids (8 glasses a day) such as water, fruit juice, tea, clear soups, andcarbonated beverages. CONTACT YOUR DOCTOR IF : 1. Your fever lasts more than 3 days. 2. You have a sore throat that gets worse or you see white or yellow spots in your throat. 3. Your cough gets worse or lasts more than 10 days. 4. You develop a rash anywhere on your skin. 5. You have an earache or a headache. 6. You have thick greenish or yellowish discharge from your nose. RETURN IMMEDIATELY IF: 1. You cough up thick yellow, green, segal, or bloody sputum. 2. You have difficulty breathing, pain in your chest, or your skin or nails look segal or blue. 3. You have shaking chills or a temperature over 102 F (39 C).COUGH: Your doctor wants you to have this information about coughing. The body has a cough reflex which helps expel mucous secretions and irritants from the lung and airway passages. Cough spasms are periods of continuous coughing lasting several minutes. Most coughs is caused by virus infections which may last for up to 2-3 weeks. Coughing helps to protect the lung from pneumonia. A persistent cough lasting longer than 4-6 weeks requires medical evaluation by your primary care doctor. Treatment of cough includes measures to loosen the cough and thin the mucous. Warm liquids, cough drops, and nonprescription cough medicine may help reduce dry hacking cough. Use a humidifier if necessary as dry air can make coughs worse. Ultrasonic humidifiers are especially useful as they kill molds and many bacteria. Some cough medicines have antihistamines, decongestants, or alcohol in them; there is no proof that any of these help control cough. Prescription cough medicine or those with dextromethorphan (DM) should be reserved for dry coughs that prevent sleep or cause spasms or chest pain. Avoid any exposure to cigarette smoke as this will worsen the cough or make it last much longer. Call your doctor right away if you or your child have increased breathing difficulty, a high fever, a cough that lasts longer than 3 weeks, or other serious complaints. documented in this [facility]06[facility] History of Present illness Narrative* Hayde Jay APRN.CNP - 09/03/2021 3:22 PM EDT This note was created using [employer]. Subjective Martine Landaverde is a 65 year old female. 65 year old female with PMH fibromyalgia, anemia, SHANNON presents with complaints and concerns for pneumonia. Symptoms started on 08/24/21 Endorses that she was diagnosed with COVID 08/24/21 with home COVID She took antiviral under the direction of Dr. Tovar. Yesterday evening she states her symptoms seemed to worsen. Fever of 99, which she states she normally is only 97 +nausea +headache +cough (denies that the cough has worsened) Denies CP. Denies SOB or dyspnea. States she is here for a chest xray to rule out pneumonia. The history is provided by the patient. No speech language therapist was used. Cough This is a new problem. The current episode started more than 1 week ago. The problem has been gradually worsening. The cough is non-productive. Maximum temperature: 99. The fever has been present for1 to 2 days. Associated symptoms include chills, ear congestion, headaches and rhinorrhea. Pertinent negatives include no chest pain, no sweats, no weight loss, no ear pain, no sore throat, no myalgias, no shortness of breath, no wheezing and no eye redness. She has tried nothing for the symptoms. The treatment provided no relief. She is not a smoker. Her past medical history does not include bronchitis, pneumonia, bronchiectasis, COPD, emphysema or asthma. 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) Myalgia and myositis, unspecified Obstructive sleep apnea Not treating because of cost Other kyphoscoliosis and scoliosis SPURS/VERTEBRAE Other specified iron deficiency anemias Unspecified sleep apnea PAST SURGICAL HISTORY Procedure Laterality Date ARTHRD ANT NTRBD MIN DSC EA ADDL INTERSPACE COLONOSCOPY FLX DX W/COLLJ SPEC WHEN PFRMD CORRECT BUNION,SIMPLE LEFT FOOT X 2 CRYO CAUTERY CERVIX DILATION & CURETTAGE DX&/THER NONOBSTETRIC Dilation & curettage EGD TRANSORAL BIOPSY SINGLE/MULTIPLE gastritis PAST SURGICAL HISTORY OF 03/03/2001 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 ALLERGIES Sulfa (Sulfonamide Antibiotics) MEDICATIONS albuterol HFA (VENTOLIN HFA) 90 mcg/actuation inhaler Inhale 2 Puffs as instructed every 4 hours asneeded for wheezing/shortness of breath. diclofenac, EC, (VOLTAREN) 75 mg EC tablet Take 1 tablet by mouth twice daily. For pain/inflammation. Take with food. tiZANidine (ZANAFLEX) 4 mg tablet TAKE 1 TABLET BY MOUTH AT BEDTIME, MAY TAKE DOSE DURING THE DAY NEEDED CPAP Initiate CPAP @ 9 cm of water with humidification. Mask (per patient preference) optional chinstrap (if indicated) , filters, tubing, humidifier and lifetime supplies. gabapentin (NEURONTIN) 400 mg capsule Take 1 capsule by mouth four times daily for 180 days. traMADol (ULTRAM) 50 mg tablet TAKE 1 TABLET BY MOUTH DAILY NEEDED FOR PAIN venlafaxine ER (EFFEXOR XR) 150 mg 24 hr capsule Take 1 capsule by mouth twice daily. lisinopril (PRINIVIL) 10 mg tablet Take 1 tablet by mouth once daily. diclofenac sodium (VOLTAREN) 1 % topical gel Apply 2-4 g to affected area four times daily as needed. As directed. Max 32 grams per 24 hour period. clobetasol (TEMOVATE) 0.05 % ointment Apply 1 application to affected area twice daily. TO AFFECTEDAREA as directed. terconazole (TERAZOL 7) 0.4 % vaginal cream USE 1 APPLICATOR VAGINALLY DAILY AT BEDTIME FOR 7 DAYS.REPEAT DIRECTED FOR RECURRENCE CPAP CPAP @ 9 cm of water with humidification. Mask (per patient preference) optional chin strap (if indicated) , filters, tubing, humidifier and lifetime supplies. Dx. SHANNON G47.33 fluticasone (FLONASE) 50 mcg/actuation nasal spray Use 2 Sprays in each nostril once daily. CPAP CHIN STRAP, USED WITH CPAP DEVICE Ferrous Sulfate (IRON) 325 mg (65 mg iron) ORAL tablet Take 1 tablet by mouth twice daily. glucosam sul na/chondr galvan a na(GLUCOSAMINE-CHONDROITIN 3X 750 MG-600 MG TAB) Take 1 tablet twice daily. MAGNESIUM OXIDE 500 MG TAB Take 1 tablet twice daily. MELATONIN 3 MG TAB Take 10 mg by mouth. nightly cholecalciferol(VITAMIN D-3 1,000 UNIT CHEWABLE TAB) Take 2 tablets daily. methylsulfonylmethane(MSM 1,000 MG TAB) 1 tablet twice daily. vitamin b complex(B COMPLEX TAB) Take one(1) tablet daily. VITAMIN E 400 UNIT CAP Take one(1) tablet daily. CALCIUM 600 + D(3) 600 MG-200 UNIT TAB Take one(1) tablet twice daily. MULTIVITAMIN TAB Take one(1) tablet daily. predniSONE (DELTASONE) 10 mg tablet Take 4 tabs daily for 3 days, then 2 tabs daily for 3 days, then 1 tab daily for 3 days with food. lidocaine (LIDODERM) 5 % Apply 1 patch as directed once daily as needed, remove patch after 12 hours phenazopyridine (PYRIDIUM) 200 mg tablet Take 1 tablet by mouth three times daily as needed. FAMILY HISTORY Problem Relation Age of Onset Alzheimer's Disease Mother Coronary Artery Disease Mother 35 35 at first [place] Ischemic Heart Disease Mother Stroke Mother Coronary Artery Disease Brother 57 2 MIs Breast Cancer Maternal Grandmother Coronary Artery Disease Maternal Grandfather Ischemic Heart Disease Maternal Grandfather Stroke Maternal Grandfather Breast Cancer Paternal Grandmother Social History Tobacco Use Smoking status: Never Smoker Smokeless tobacco: Never Used Substance Use Topics Alcohol use: No Drug use: No Review of Systems Constitutional: Positive for chills, fatigue and fever. Negative for diaphoresis and weight loss. HENT: Positive for congestion and rhinorrhea. Negative for ear pain, sinus pressure, sinus pain andsore throat. Eyes: Negative for pain, discharge, redness and itching. Respiratory: Positive for cough. Negative for apnea, choking, chest tightness, shortness of breath and wheezing. Cardiovascular: Negative for chest pain, palpitations and leg swelling. Gastrointestinal: Negative for abdominal pain, diarrhea, nausea and vomiting. Musculoskeletal: Negative for arthralgias, back pain and myalgias. Skin: Negative for color change, pallor, rash and wound. Allergic/Immunologic: Negative for environmental allergies, food allergies and immunocompromised state. Neurological: Positive for headaches. Negative for dizziness, facial asymmetry, light-headedness and numbness. Hematological: Negative for adenopathy. Does not bruise/bleed easily. Psychiatric/Behavioral: Negative for agitation and behavioral problems. Objective BP 134/82 Pulse 90 Temp 36.8 C (98.3 F) (Tympanic) Resp 18 Wt 79.4 kg (175 lb) LMP 10/02/2007 SpO2 95% BMI (P) 28.25 kg/m Physical Exam Vitals and nursing note reviewed. Constitutional: General: She is not in acute distress. Appearance: Normal appearance. She is normal weight. She is not ill-appearing, toxic-appearing or diaphoretic. HENT: Head: Normocephalic and atraumatic. Right Ear: Ear canal and external ear normal. Left Ear: Ear canal and external ear normal. Nose: Nose normal. No congestion or rhinorrhea. Mouth/Throat: Mouth: Mucous membranes are moist. Pharynx: No oropharyngeal exudate or posterior oropharyngeal erythema. Eyes: General: Right eye: No discharge. Left eye: No discharge. Extraocular Movements: Extraocular movements intact. Conjunctiva/sclera: Conjunctivae normal. Pupils: Pupils are equal, round, and reactive to light. Cardiovascular: Rate and Rhythm: Normal rate and regular rhythm. Pulses: Normal pulses. Heart sounds: Normal heart sounds. No murmur heard. No friction rub. Pulmonary: Effort: Pulmonary effort is normal. No respiratory distress. Breath sounds: Normal breath sounds. No stridor. No wheezing, rhonchi or rales. Chest: Chest wall: No tenderness. Abdominal: General: Abdomen is flat. There is no distension. Palpations: Abdomen is soft. There is no mass. Tenderness: There is no abdominal tenderness. There is no right CVA tenderness, left CVA tenderness, guarding or rebound. Hernia: No hernia is present. Musculoskeletal: General: No swelling, tenderness, deformity or signs of injury. Normal range of motion. Cervical back: Normal range of motion and neck supple. No rigidity. Right lower leg: No edema. Left lower leg: No edema. Lymphadenopathy: Cervical: No cervical adenopathy. Skin: General: Skin is warm and dry. Coloration: Skin is not jaundiced or pale. Findings: No bruising, erythema, lesion or rash. Neurological: General: No focal deficit present. Mental Status: She is alert and oriented to person, place, and time. Cranial Nerves: No cranial nerve deficit. Sensory: No sensory deficit. Motor: No weakness. Coordination: Coordination normal. Gait: Gait normal. Psychiatric: Mood and Affect: Mood normal. Behavior: Behavior normal. Thought Content: Thought content normal. Judgment: Judgment normal. Assessment and Plan ASSESSMENT/PLAN: 1. COVID - ICD9: 079.89, ICD10: U07.1 (primary diagnosis) Diagnosed 08/24/21 Received antivirals Presents today with concerns for secondary pneumonia. - XR CHEST 2V FRONTAL/LAT-negative 2. Cough - ICD9: 786.2, ICD10: R05.9 Has been an ongoing thing States that it seems to have worsened over the past 1 to 2 days Lungs CTA Fair air exchange CXR negative ? Post tussive No red flags Will provide with Prednisone taper Follow up with Dr. Tovar. Hayde Jay APRN.CHERIE documented in this [facility]22 Miscellaneous Notes* Telephone Encounter - Sheridan Wren RN - 09/03/2021 2:47 PM EDT Pt called and is notified of providers message and instructions. Pt voices understanding, she [facility]. Sheridan Wren RN * Telephone Encounter - Eribetro Tovar MD - 09/03/2021 1:22 PM EDT Agree with need for evaluation given worsening of symptoms. Needs to have pneumonia ruled out. Further evaluation and treatment as indicated. * Telephone Encounter - Karen Hendrix RN - 09/03/2021 1:13 PM EDT Patient calls and states that she tested positive for Covid Last week. Patient was prescribed Paxlovid and has finished medication. Patient reports that she is feeling worse than she did before. Patient states that her fever had gone away for a little bit but now it is back. Patient continues to cough. Patient denies being short of breath but afraid that she has pneumonia. Patient calling to see what she should do next since she is not getting any better? Advised patient that she should come into urgent care to be evaluated since she is feeling worse. Patient voiced understanding. Please review and advise, Karen Hendrix RN documented in this [facility]05[facility]22 Instructions* Patient Instructions* Eriberto Tovar MD - 08/27/2021 7:27 PM EDT FACT SHEET FOR PATIENTS, PARENTS, AND CAREGIVERS EMERGENCY USE AUTHORIZATION (EUA) OF PAXLOVID FOR CORONAVIRUS DISEASE 2019 (COVID-19) You are being given this Fact Sheet because your healthcare provider believes it is necessary to provide you with PAXLOVID for the treatment of xdja-ww-wcpmwtdj coronavirus disease (COVID-19) caused by the SARS-CoV-2 virus. This Fact Sheet contains information to help you understand the risks and benefits of taking the PAXLOVID you have received or may receive. The [place].S. Food and Drug Administration (FDA) has issued an Emergency Use Authorization (EUA) to make PAXLOVID available during the COVID-19 pandemic (for more details about an EUA please see What is an Emergency Use Authorization? at the end of this document). PAXLOVID is not an FDA-approved medicine in the [place]. Read this Fact Sheet for information about PAXLOVID. Talk to your healthcare provider about your options or if you have any questions. It is your choice to take PAXLOVID. What is COVID-19? COVID-19 is caused by a virus called a coronavirus. You can get COVID-19 through close contact with another person who has the virus. COVID-19 illnesses have ranged from very wvlz-mz-zvmpuy, including illness resulting in . While information so far suggests that most COVID-19 illness is mild, serious illness can happen and may cause some of your other medical conditions to become worse. Older people and people of all ages with severe, long lasting (chronic) medical conditions like heart disease, lung disease, and diabetes, for example seem to be at higher risk of being hospitalized for COVID-19. What is PAXLOVID? PAXLOVID is an investigational medicine used to treat emds-de-aokyrrwj COVID-19 in adults and children [12 years of age and older weighing at least 88 pounds (40 kg)] with positive results of direct SARS-CoV-2 viral testing, and who are at high risk for progression to severe COVID-19, including hospitalization or . PAXLOVID is investigational because it is still being studied. There is limited information about the safety and effectiveness of using PAXLOVID to treat people with sbiw-if-viqgolif COVID-19. The FDA has authorized the emergency use of PAXLOVID for the treatment of mild- tomoderate COVID-19 in adults and children [12 years of age and older weighing at least 88 pounds (40 kg)] with a positive test for the virus that causes COVID-19, and who are at high risk for progression to severe COVID-19, including hospitalization or , under an EUA. What should I tell my healthcare provider before I take PAXLOVID? Tell your healthcare provider if you: Have any allergies Have liver or kidney disease Are or plan to become Are a child Have any serious illnesses Tell your healthcare provider about all the medicines you take, including prescription and jeqb-gkh-eoleplv medicines, vitamins, and herbal supplements. Some medicines may interact with PAXLOVID and may cause serious side effects. Keep a list of your medicines to show your healthcare provider and pharmacist when you get a new medicine. You can ask your healthcare provider or pharmacist for a list of medicines that interact with PAXLOVID. Do not start taking a new medicine without telling your healthcare provider. Your healthcare provider can tell you if it is safe to take PAXLOVID with other medicines. Tell your healthcare provider if you are taking combined hormonal contraceptive. PAXLOVID may affect how your control pills work. Females who are able to become should use another effective alternative form of contraception or an additional barrier method of contraception. Talk to your healthcare provider if you have any questions about contraceptive methods that might be right for you. How do I take PAXLOVID? PAXLOVID consists of 2 medicines: nirmatrelvir and ritonavir Take 2 pink tablets of nirmatrelvir with 1 white tablet of ritonavir by mouth 2 times each day (in the morning and in the evening) for 5 days. For each dose, take all 3 tablets at the same time. If you have kidney disease, talk to your healthcare provider. You may need a different dose. Swallow the tablets whole. Do not chew, break, or crush the tablets. Take PAXLOVID with or without food. Do not stop taking PAXLOVID without talking to your healthcare provider, even if you feel better. If you miss a dose of PAXLOVID within 8 hours of the time it is usually taken, take it as soon as you remember. If you miss a dose by more than 8 hours, skip the missed dose and take the next dose atyour regular time. Do not take 2 doses of PAXLOVID at the same time. If you take too much PAXLOVID, call your healthcare provider or go to the nearest hospital emergency room right away. If you are taking a ritonavir- or cobicistat-containing medicine to treat hepatitis C or Human Immunodeficiency Virus (HIV), you should continue to take your medicine as prescribed by your healthcareprovider. Talk to your healthcare provider if you do not feel better or if you feel worse after 5 days. Who should generally not take PAXLOVID? Do not take PAXLOVID if: You are allergic to nirmatrelvir, ritonavir, or any of the ingredients in PAXLOVID. You are taking any of the following medicines: Alfuzosin Pethidine, piroxicam, propoxyphene Ranolazine Amiodarone, dronedarone, flecainide, propafenone, quinidine Colchicine Lurasidone, pimozide, clozapine Dihydroergotamine, ergotamine, methylergonovine Lovastatin, simvastatin Sildenafil (Revatio ) for pulmonary arterial hypertension (PAH) Triazolam, oral midazolam Apalutamide Carbamazepine, phenobarbital, phenytoin Rifampin [place] s Wort (hypericum perforatum) Taking PAXLOVID with these medicines may cause serious or life-threatening side effects or affect how PAXLOVID works. These are not the only medicines that may cause serious side effects if taken with PAXLOVID. PAXLOVID may increase or decrease the levels of multiple other medicines. It is very important to tell your healthcare provider about all of the medicines you are taking because additional laboratory tests or changes in the dose of your other medicines may be necessary while you are taking PAXLOVID. Your healthcare provider may also tell you about specific symptoms to watch out for that may indicate that you need to stop or decrease the dose of some of your other medicines. What are the important possible side effects of PAXLOVID? Possible side effects of PAXLOVID are: Liver Problems. Tell your healthcare provider right away if you have any of these signs and symptoms of liver problems: loss of appetite, yellowing of your skin and the whites of eyes (jaundice), dark-colored urine, pale colored stools and itchy skin, stomach area (abdominal) pain. Resistance to HIV Medicines. If you have untreated HIV infection, PAXLOVID may lead to some HIV medicines not working as well in the future. Other possible side effects include: altered sense of taste diarrhea high blood pressure muscle aches These are not all the possible side effects of PAXLOVID. Not many people have taken PAXLOVID. Serious and unexpected side effects may happen. PAXLOVID is still being studied, so it is possible that all of the risks are not known at this time. What other treatment choices are there? Like PAXLOVID, FDA may allow for the emergency use of other medicines to treat people with COVID-19. Go to https://www.fda.gov/mgsxgvmfk-ytrtgsjoazry-vehbixpmaoe/ocx-khqpr-mrwuoaj ali-ymt-ehpwia-framework/ewcdyzkzx-nps-detjxkgdqirmx for information on the emergency use of other medicines that are authorized by FDA to treat people with COVID-19. Your healthcare provider may talk with you about clinical trials for which you may be eligible. It is your choice to be treated or not to be treated with PAXLOVID. Should you decide not to receive it or for your child not to receive it, it will not change your standard medical care. What if I am or ? There is technology education teacher treating women or mothers with PAXLOVID. For a mother and unborn baby, the benefit of taking PAXLOVID may be greater than the risk from the treatment. If you are , discuss your options and specific situation with your healthcare provider. It is recommended that you use effective barrier contraception or do not have sexual activity while taking PAXLOVID. If you are , discuss your options and specific situation with your healthcare provider. How do I report side effects with PAXLOVID? Contact your healthcare provider if you have any side effects that bother you or do not go away. Report side effects to [place] at www.[employer].gov/[employer] or call 0-191-KDB542-HPW-6426 or you can report side effects to [facility] at the contact information provided below. Website Fax number Telephone number [employer] How should I store PAXLOVID? Store PAXLOVID tablets at room temperature, between 68F to 77F (20C to 25C). How can I learn more about COVID-19? Ask your healthcare provider. Visit https://www.cdc.gov/COVID19. Contact your local or state public health department. What is an Emergency Use Authorization (EUA)? The [place] FDA has made PAXLOVID available under an emergency access mechanism called an Emergency Use Authorization (EUA). The EUA is supported by a Splicing Technician of Health and Human Service (HHS) declaration that circumstances exist to justify the emergency use of drugs and biological products during the COVID-19 pandemic. PAXLOVID for the treatment of sdnu-kn-fwconugt COVID-19 in adults and children [12 years of age and older weighing at least 88 pounds (40 kg)] with positive results of direct SARS-CoV-2 viral testing, and who are at high risk for progression to severe COVID-19, including hospitalization or , has not undergone the same type of review as an FDA-approved product. In issuing an EUA under the COVID-19 public health emergency, the FDA has determined, among other things, that based on the total amount of scientific evidence available including data from adequate and well-controlled clinical trials, if available, it is reasonable to believe that the product may be effective for diagnosing, treating, or preventing COVID-19, or a serious or life-threatening disease or condition caused by COVID-19; that the known and potential benefits of the product, when used to diagnose, treat, or prevent such disease or condition, outweigh the known and potential risks of such product; and that there are no adequate, approved, and available alternatives. All of these criteria must be met to allow for the product to be used in the treatment of patients during the COVID-19 pandemic. The EUA for PAXLOVID is in effect for the duration of the COVID-19 declaration justifying emergency use of this product, unless terminated or revoked (after which the products may no longer be used under the EUA). Additional Information For general questions, visit the website or call the telephone number provided below. Website Telephone number [facility] (2-273-[phone]) You can also go to [facility] or call for more information. [id number] Revised: 03/26/2021 [facility] Miscellaneous Notes* Telephone Encounter - Eriberto Tovar MD - 08/27/2021 7:24 PM EDT Nirmatrelvir/Ritonavir (Paxlovid) Eligibility and Patient Discussion [facility] Formulary Restriction Criteria: Adult outpatients 18 years and older with ALL of the following: [x] Patient has positive SARS-COV-2 viral test (PCR or antigen test) during current illness [x] Patient has symptoms for 5 days or less [x] Not requiring hospitalization at any time for management of COVID-19 [x] Not requiring supplemental oxygen or a change in baseline supplemental oxygen[x] Not utilized for pre-exposure or post-exposure prophylaxis for prevention of COVID-19 [x] Patient does not have severe renal impairment (eGFR < 30 mL/min) or severe hepatic impairment (Child-Bassett Class C) [x] Meeting patient criteria as below: [x] Older age (age >/= 65 years) OR [] 18 years and older with at least one of the following: [] Obesity or being overweight (BMI > 30) [] [] Chronic kidney diseases with eGFR > 30 mL/min and not requiring dialysis [] Diabetes [] Cardiovascular disease including hypertension [] COPD/other chronic respiratory disease [] Sickle cell disease [] Neurodevelopmental disorder (e.g. cerebral palsy) or other conditions that confer medical complexity (e.g. genetic or metabolic syndromes and severe congenital abnormalities) [] Medical related technological dependence (e.g. tracheostomy, gastrostomy, or positive pressure ventilation (not related to COVID-19)) OR [] 18 years and older with immunosuppressive disease or immunosuppressive therapy defined as: [] Immune-mediated inflammatory disease (rheumatoid arthritis, psoriatic arthritis, ankylosing spondylitis, psoriasis, systemic lupus erythematous, idiopathic inflammatory myositis, systemic sclerosis, primary systemic vasculitis, Sjogren s syndrome, inflammatory bowel disease) AND receiving at least one of the following: [] Prednisone (equivalent of > 10 mg daily at time of infusion) [] Rituximab [] 5-ASA derivatives (e.g., sulfasalazine, mesalamine) [] Solid Organ Transplant recipients [] Post-transplant AND on immunosuppression [] Cancer center patients AND at least one of the following: [] On treatment with anti-B cell monoclonal antibodies (e.g., Rituximab, Obinutuzumab, Ofatumumab) [] On treatment with high-intensity chemotherapy regimen [] Myeloablative hematopoietic stem cell transplant recipients within 6 months of transplant or on systemic therapy for qtiwp-xxksnp-lylw disease [] CAR T-cell/other cellular therapy recipients within 6 months of infusion [] Hypogammaglobulinemia due to cancer/hematologic disease or its treatment [] Primary immunodeficiency disorder (including common variable immuno immunodeficiency disorder and selective antibody deficiency disorder) Criteria above are met: Yes Date of Positive Test:08/25/21 Date of Symptom Onset: 08/24/21 Patient received COVID vaccine: Yes -Date(s) of vaccine: 06/13/20,07/04/20,02/13/21 Drug-Drug interactions reviewed: Yes. Drug interactions were identified and the following actions were taken will hold Flonase. I have discussed the use of the investigational therapeutic, nirmatrelvir/ritonavir, for the treatment of mild to moderate COVID-19 and its use under Emergency Use Authorization with the patient. The patient was informed that nirmatrelvir/ritonavir is not an FDA approved drug and that it is authorized for use under this Emergency Use Authorization. The patient was also informed of the significant known benefits and potential risks of nirmatrelvir/ritonavir, and the extent to which such potential risks and benefits are unknown. The patient was informed that there is mandatory reporting of all medication errors and serious adverse events potentially related to nirmatrelvir/ritonavir treatment within 7 calendar days from the onset of the event and that events up to 28 days after completion of therapy need to be reported. The discussion included alternatives to receiving nirmatrelvir/rit onavir, including clinical trials, and potential the risks and benefits of those alternatives. The patient was provided electronically with the Fact Sheet for Patients, Parents and Caregivers. The patient was also instructed that in addition to the treatment with nirmatrelvir/ritonavir, he/she should continue to self-isolate and use infection control measures (e.g., wear mask, isolate, social distance, avoid sharing personal items, clean and disinfect high touch surfaces, and frequent h andwashing) according to CDC guidelines. The patient stated understanding and gave verbal consent to proceeding with nirmatrelvir/ritonavir treatment. Eriberto Tovar MD August 27, 2021 7:30 PM Note that I called patient to review above questions. Discussed Paxlovid. Reviewed red flag symptoms that would indicate need to go to ER. She will borrow pulse ox from daughter and go to ER if pulse ox drops below 88% or if develops severe SOB. Requested albuterol for wheezing. Has used before. The following approved medication requests have been transmitted electronically. Signed Prescriptions Disp Refills nirmatrelvir tablet 150 mg and ritonavir tablet 100 mg in a dose pack (PAXLOVID) 30 tablet 0 Sig: Administer TWO pink nirmatrelvir 150 mg tablets and ONE white ritonavir 100 mg tablet for a total of three tablets twice daily. Authorizing Provider: ERIBERTO TOVAR albuterol HFA (VENTOLIN HFA) 90 mcg/actuation inhaler 1 Inhaler 1 Sig: Inhale 2 Puffs as instructed every 4 hours as needed for wheezing/shortness of breath. Authorizing Provider: ERIBERTO TOVAR MD * Telephone Encounter - Evelin Sage LPN - 08/27/2021 1:38 PM EDT Pt calls and states the following: COVID 19 positive. 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 ONSET: Symptoms started around Wednesday night at midnight 08-24-21 WORST SYMPTOM: Fever and aching worse COUGH: yes, at times gets violent, off and on. This was her first symptom that started Wednesday night FEVER: yes and temp now 100.4 RESPIRATORY STATUS: states feels like she is having a little wheezing [id number]: pt states she feels she is getting worse HIGH RISK DISEASE: chronic fatigue and fibromyalgia and asthma in the past VACCINE: yes OTHER SYMPTOMS: headache, chills then gets hot, muscle pain and nausea : n/a Medications: has not taken anything, hoping symptoms would get better. Question: What can pt do at this time. She would be willing to take medications. Pharmacy updated. Please advise. [facility] Miscellaneous Notes* Telephone Encounter - Radha Aguilar LPN - 08/14/2021 9:34 AM EDT Pharmacy is [facility]. Pharmacy has been updated * Telephone Encounter - Eriberto Tovar MD - 08/13/2021 5:28 PM EDT Which pharmacy? Offer to schedule yearly in February * Telephone Encounter - Shilpa Pathak LPN - 08/13/2021 9:02 AM EDT Patient has been identified by name and date of : Yes Patient phones for refill(s): Pending Prescriptions Disp Refills DICLOFENAC SODIUM 75 MG TABLET,DELAYED RELEASE 180 tablet 3 Sig: Take 1 tablet by mouth twice daily. For pain/inflammation. Take with food. CHUY: No Date of last office visit in primary care: 02/03/2021 No future appt scheduled. Last 2 Encounter Wt Readings: Date: Wt: 06/26/2021 80.5 kg (177 lb 6.4 oz) 02/14/2021 79.4 kg (175 lb) Previous labs/tests for medication: Not applicable Please advise. Thank you. Shilpa Pathak LPN documented [facility] Miscellaneous Notes* Telephone Encounter - Shilpa Pathak LPN - 07/28/2021 12:20 PM EDT Patient has been identified by name and date of : Yes Patient phones for refill(s): Pending Prescriptions Disp Refills TIZANIDINE 4 MG TABLET 180 tablet 3 Sig: TAKE 1 TABLET BY MOUTH AT BEDTIME, MAY TAKE DOSE DURING THE DAY NEEDED CHUY: No Date of last office visit in primary care: 02/03/2021 6 month follow-up: 08/12/2021 Last 2 Encounter Wt Readings: Date: Wt: 06/26/2021 80.5 kg (177 lb 6.4 oz) 02/14/2021 79.4 kg (175 lb) Previous labs/tests for medication: Not applicable Please advise. Thank you. Shilpa Pathak LPN documented [facility] Instructions* Patient Instructions* Alejandro Ferrara - 06/26/2021 4:19 PM EDT [facility] PATIENT INFO ACUTE SINUSITIS OVERVIEW Rhinosinusitis, or more commonly sinusitis, is the medical term for inflammation (swelling) of the lining of the sinuses and nose. The sinuses are the hollow areas within the facial bones that are connected to the nasal openings. The sinuses are lined with mucous membranes, similar to the inside ofthe nose. There are two main types of sinusitis: acute and chronic. Acute sinusitis is inflammation that lasts for less than four weeks while chronic sinusitis lasts for more than 12 weeks. Acute sinusitis is common, affecting approximately one million people per year in the [place]. ACUTE SINUSITIS CAUSES The most common cause of acute sinusitis is a viral infection associated with the common cold. Bacterial sinusitis occurs much less commonly, in only 0.5 to 2 percent of cases, usually as a complication of viral sinusitis. Because antibiotics are effective only against bacterial, and not viral, infections, most people donot need antibiotics for acute sinusitis. ACUTE SINUSITIS SYMPTOMS Symptoms of acute sinusitis include: Nasal congestion or blockage Thick, yellow to green discharge from the nose Pain in the teeth Pain or pressure in the face that is worse when bending forwards Other acute sinusitis symptoms can include fever (temperature greater than 100.4 F or 38 C), fatigue, cough, difficulty or inability to smell, ear pressure or fullness, headache, and bad breath. In most cases, these symptoms develop over the course of one day and begin to improve within seven to 10 days. DO I NEED TO BE EXAMINED? It is difficult to know if you have a viral or bacterial sinus infection initially. However, most people with a viral infection improve without treatment within seven to 10 days after symptoms begin.Bacterial sinusitis also sometimes improves without treatment, although it can also worsen and require treatment. If one or more of the following bothersome symptoms last more than seven days, an examination by a healthcare provider is recommended: Thick, yellow to green discharge from the nose Face or tooth pain, especially if it is only on one side Tenderness over the maxillary sinuses (located on the left and right side of the nose, inside the cheekbones) Symptoms that initially improve and then worsen When to seek immediate help If you have one or more of the following symptoms, you should seek medical attention immediately (even if symptoms have been present for less than seven days): High fever (>102.5 F or 39.2 C) Sudden, severe pain in the face or head Double vision or difficulty seeing Confusion or difficulty thinking clearly Swelling or redness around one or both eyes Stiff neck, shortness of breath ACUTE SINUSITIS TREATMENT Initial treatment of a sinus infection aims to relieve symptoms since almost everyone will improve within the first seven to 10 days. Experts recommend avoiding antibiotics during this time unless there is clear evidence of a severe bacterial infection. Initial treatment Pain relief Non-prescription pain medications, such as acetaminophen (eg, Tylenol ) or ibuprofen (eg, Motrin , Advil ) are recommended for pain. Nasal irrigation and saline sprays Rinsing the nose with a salt-water (saline) solution is called nasal irrigation or nasal lavage. Saline is also available in a standard nasal spray, although this is not as effective as using larger amounts of water in an irrigation. Nasal irrigation is particularly useful for treating drainage down the back of the throat, sneezing, nasal dryness, and congestion. The treatment helps by rinsing out allergens and irritants from thenose. Saline rinses also clean the nasal lining and can be used before applying sprays containing medications, to get a better effect from the medication. Nasal lavage with warmed saline can be performed as needed, once per day, or twice daily for increased symptoms. Nasal lavage carries few risks when performed correctly. Saline nasal sprays and irrigation kits can be purchased nqlz-sqb-abstaen. Saline mixes can also be purchased or patients can make their own solution. A variety of devices, including bulb syringes, Neti pots, and bottle sprayers, may be used to perform nasal lavage; instructions for nasal lavage are provided in the table. At least 200 mL (about 3/4cup) of fluid is recommended for each nostril. Nasal decongestants Nasal decongestant sprays, including oxymetazoline (Afrin ) and phenylephrine (Jon-synephrine ) can be used to temporarily treat congestion. However, these sprays should not be used for more than two to three days due to the risk of rebound congestion (when the nose is congestedconstantly unless the medication is used repeatedly). Other treatments Other treatments for congestion, such as oral antihistamines (such as diphenhydramine/Benadryl ) or zinc supplements are not proven to improve symptoms of sinusitis and can have unwanted side effects. Medications to thin secretions (such as guaifenesin) may help to clear mucus. Secondline treatment If symptoms have not improved in seven to ten days, you should arrange for medical evaluation. You may need further treatment. Nasal glucocorticoids Nasal glucocorticoids (steroids delivered by a nasal spray) can help to reduce swelling inside the nose, usually within two to three days. These drugs have few side effects and dramatically relieve symptoms in most people. There are a number of nasal glucocorticoids available by prescription. These drugs are all effective, but differ in how frequently they must be used and how much they cost. You may need to use a nasal decongestant for a few days before starting a nasal glucocorticoid to reduce nasal swelling; this will allow the nasal glucocorticoid to reach more areas of the nasal passages Do I need an antibiotic? If bothersome symptoms of sinusitis persist for 10 or more days, it is possible that you have bacterial sinusitis. The need for antibiotics depends upon the severity of your symptoms. Mild symptoms There are two possible treatment options if you have mild sinusitis symptoms: treat with antibiotics or continue to watch and wait for one week. Watching and waiting is a reasonable option because up to 75 percent of people with bacterial sinusitis improve within one month without antibiotics. During the watch and wait period, treatments to improve symptoms are recommended. If symptoms worsen or do not improve after watching and waiting, treatment with an antibiotic is usually recommended. Treatments to relieve symptoms are recommended while using antibiotics. Moderate or severe symptoms Most healthcare providers will prescribe an antibiotic for moderate to severe symptoms (temperature >38.3 C or 101 F and/or severe pain that interferes with usual activities). Treatments to relieve symptoms are also recommended during antibiotic treatment. One of the least expensive and most effective antibiotics for sinusitis is amoxicillin. An alternate antibiotic will be prescribed if you are allergic to penicillin. Regardless of which antibiotic isprescribed, it is important to follow the dosing instructions carefully and to finish the entire course of treatment. Taking the medication less often than prescribed or stopping the medication earlycan lead to complications, such as a recurrent infection. What if I do not improve with treatment? If you do not improve or worsen after a course of antibiotics, you should be re-examined. In some cases, symptoms of sinusitis improve but then recur. This is usually because the infection was not completely eliminated by the antibiotic. An alternate antibiotic, extended antibiotic treatment, and/or further testing may be recommended, depending upon your individual situation. [facility] History of Present illness Narrative* Martha Meier APRN.BODY TEAM MEMBER - 06/26/2021 4:16 PM EDT This note was created using [employer]. Subjective Martine Landaverde is a 65 year old female who presents with congestion, headache, sinus pain, and pressure x 1 week. She endorses having a sore throat that has since resolved, but the sinus pressure hascontinued to worsen over time. She has tried over the counter remedies with no relief. Review of Systems Constitutional: Negative for chills and fever. HENT: Positive for congestion, sinus pressure and sinus pain. Negative for ear discharge, ear pain,hearing loss, rhinorrhea and sore throat. Respiratory: Positive for cough. Negative for shortness of breath. Gastrointestinal: Negative for constipation, diarrhea, nausea and vomiting. Genitourinary: Negative. Musculoskeletal: Negative for arthralgias and myalgias. Skin: Negative for color change. Neurological: Positive for headaches. Negative for syncope. Psychiatric/Behavioral: Negative for confusion. Objective BP 156/86 Pulse 80 Temp 36.9 C (98.4 F) (Tympanic) Resp 18 Wt 80.5 kg (177 lb 6.4 oz) LMP10/02/2007 SpO2 97% BMI (P) 28.63 kg/m 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) Myalgia and myositis, unspecified Obstructive sleep apnea Not treating because of cost Other kyphoscoliosis and scoliosis SPURS/VERTEBRAE Other specified iron deficiency anemias Unspecified sleep apnea PAST SURGICAL HISTORY Procedure Laterality Date ARTHRD ANT NTRBD MIN DSC EA ADDL INTERSPACE COLONOSCOPY FLX DX W/COLLJ SPEC WHEN PFRMD CORRECT BUNION,SIMPLE LEFT FOOT X 2 CRYO CAUTERY CERVIX DILATION & CURETTAGE DX&/THER NONOBSTETRIC Dilation & curettage EGD TRANSORAL BIOPSY SINGLE/MULTIPLE gastritis PAST SURGICAL HISTORY OF 03/03/2001 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 ALLERGIES Sulfa (Sulfonamide Antibiotics) MEDICATIONS CPAP Initiate CPAP @ 9 cm of water with humidification. Mask (per patient preference) optional chinstrap (if indicated) , filters, tubing, humidifier and lifetime supplies. gabapentin (NEURONTIN) 400 mg capsule Take 1 capsule by mouth four times daily for 180 days. traMADol (ULTRAM) 50 mg tablet TAKE 1 TABLET BY MOUTH DAILY NEEDED FOR PAIN venlafaxine ER (EFFEXOR XR) 150 mg 24 hr capsule Take 1 capsule by mouth twice daily. lisinopril (PRINIVIL) 10 mg tablet Take 1 tablet by mouth once daily. diclofenac, EC, (VOLTAREN) 75 mg EC tablet Take 1 tablet by mouth twice daily. For pain/inflammation. Take with food. tiZANidine (ZANAFLEX) 4 mg tablet TAKE 1 TABLET BY MOUTH AT BEDTIME, MAY TAKE DOSE DURING THE DAY NEEDED diclofenac sodium (VOLTAREN) 1 % topical gel Apply 2-4 g to affected area four times daily as needed. As directed. Max 32 grams per 24 hour period. clobetasol (TEMOVATE) 0.05 % ointment Apply 1 application to affected area twice daily. TO AFFECTEDAREA as directed. terconazole (TERAZOL 7) 0.4 % vaginal cream USE 1 APPLICATOR VAGINALLY DAILY AT BEDTIME FOR 7 DAYS.REPEAT DIRECTED FOR RECURRENCE CPAP CPAP @ 9 cm of water with humidification. Mask (per patient preference) optional chin strap (if indicated) , filters, tubing, humidifier and lifetime supplies. Dx. SHANNON G47.33 fluticasone (FLONASE) 50 mcg/actuation nasal spray Use 2 Sprays in each nostril once daily. CPAP CHIN STRAP, USED WITH CPAP DEVICE glucosam sul na/chondr galvan a na(GLUCOSAMINE-CHONDROITIN 3X 750 MG-600 MG TAB) Take 1 tablet twice daily. MAGNESIUM OXIDE 500 MG TAB Take 1 tablet twice daily. methylsulfonylmethane(MSM 1,000 MG TAB) 1 tablet twice daily. vitamin b complex(B COMPLEX TAB) Take one(1) tablet daily. VITAMIN E 400 UNIT CAP Take one(1) tablet daily. MULTIVITAMIN TAB Take one(1) tablet daily. amoxicillin-clavulanic acid (AUGMENTIN) 875-125 mg per tablet Take 1 tablet by mouth twice daily for 5 days. lidocaine (LIDODERM) 5 % Apply 1 patch as directed once daily as needed, remove patch after 12 hours phenazopyridine (PYRIDIUM) 200 mg tablet Take 1 tablet by mouth three times daily as needed. Ferrous Sulfate (IRON) 325 mg (65 mg iron) ORAL tablet Take 1 tablet by mouth twice daily. MELATONIN 3 MG TAB Take 10 mg by mouth. nightly cholecalciferol(VITAMIN D-3 1,000 UNIT CHEWABLE TAB) Take 2 tablets daily. CALCIUM 600 + D(3) 600 MG-200 UNIT TAB Take one(1) tablet twice daily. FAMILY HISTORY Problem Relation Age of Onset Alzheimer's Disease Mother Coronary Artery Disease Mother 35 35 at first [place] Ischemic Heart Disease Mother Stroke Mother Coronary Artery Disease Brother 57 2 MIs Breast Cancer Maternal Grandmother Coronary Artery Disease Maternal Grandfather Ischemic Heart Disease Maternal Grandfather Stroke Maternal Grandfather Breast Cancer Paternal Grandmother Social History Tobacco Use Smoking status: Never Smoker Smokeless tobacco: Never Used Substance Use Topics Alcohol use: No Drug use: No Physical Exam Vitals reviewed. Constitutional: General: She is not in acute distress. Appearance: Normal appearance. HENT: Head: Normocephalic and atraumatic. Right Ear: External ear normal. Left Ear: External ear normal. Nose: Congestion present. Mouth/Throat: Mouth: Mucous membranes are moist. Pharynx: Posterior oropharyngeal erythema present. No oropharyngeal exudate. Eyes: Extraocular Movements: Extraocular movements intact. Conjunctiva/sclera: Conjunctivae normal. Pupils: Pupils are equal, round, and reactive to light. Cardiovascular: Rate and Rhythm: Normal rate and regular rhythm. Heart sounds: Normal heart sounds. Pulmonary: Effort: Pulmonary effort is normal. No respiratory distress. Breath sounds: Normal breath sounds. No wheezing. Musculoskeletal: General: Normal range of motion. Cervical back: Normal range of motion and neck supple. Lymphadenopathy: Cervical: Cervical adenopathy present. Skin: General: Skin is warm and dry. Capillary Refill: Capillary refill takes less than 2 seconds. Coloration: Skin is not jaundiced. Neurological: General: No focal deficit present. Mental Status: She is alert and oriented to person, place, and time. Mental status is at baseline. Psychiatric: Mood and Affect: Mood normal. Behavior: Behavior normal. Assessment and Plan ASSESSMENT/PLAN: 1. Acute non-recurrent sinusitis, unspecified location - ICD9: 461.9, ICD10: J01.90 (primary diagnosis) - Will begin treatment with Augmentin 875 mg PO BID for 5 days - Supportive care with plenty of fluids, rest, and analgesia prn. - Follow up in 3-5 days if symptoms persist or worsen. - AMOXICILLIN 875 MG-POTASSIUM CLAVULANATE 125 MG TABLET - COVID WITH FLUA+B, ROUTINE 2. Acute upper respiratory infection, unspecified - ICD9: 465.9, ICD10: J06.9 - Supportive care with fluids and rest - COVID WITH FLUA+B, ROUTINE Alejandro Ferrara RN - Follow-up with your PCP in 3-5 days if symptoms have not improved or sooner if symptoms worsen - Discussed red flags and need for immediate medical evaluation if any occur. - Discussed supportive care treatment with fluids, rest and analgesia. - Discussed expected course of illness TEACHING PROVIDER (Physician/PA/COCOA ROOM OPERATOR) NOTE OF PERSONAL INVOLVEMENT IN CARE: I have personally seen and examined the patient and performed the medical decision-making components. I have reviewed the Advanced Practice Registered Nurse (COCOA ROOM OPERATOR) Student's documentation and verified the findings in the note as written. Any additions or changes are noted in bold/italics. Signature: Martha Meier Date: 06/26/2021 Time: 4:23 PM [facility] this [facility] Miscellaneous Notes* Telephone Encounter - Kaleigh Schulte LPN - 12/11/2020 2:55 PM EDT Pt states she has a fever Tmax 99.4, bodyaches, chills & headache. Denies cough, SOB, sore throat or loss of taste or smell. Pt is wondering if she should be tested for covid. Pt is going to see how she feels in the next day or so. Pt does not return to work until Wednesday12/13/20. Kaleigh Schulte LPN documented in this [facility]08[facility]2014 History of Past illness Narrative* Problem Noted Date Resolved Date Change in bowel habits 11/23/2013 6 GERD (gastroesophageal reflux disease) 4 04/30/2017 Symptomatic menopausal or female climacteric sta noelle 01/12/2012 02/25/2016 Contact dermatitis and other eczema, due to unspecified cause 02/14/2009 01/17/2015 Xerosis cutis 02/14/2009 01/17/2015 Sun-damaged skin 02/14/2009 01/17/2015 Lentigo 02/14/2009 01/17/2015 Melanocytic nevus of trunk 02/14/200902/24 VIDAL ANGIOMA///Capillary Angioma 02/14/2009 01/17/2015 Acute gastritis with hemorrhage 10/17/2008 04/30/2017 Periodic limb movement disorder 09/12/2008 02/25/2016 Unspecified sleep apnea 07/31/2008 02/25/20 16 Overview: CPAP Pain in joint, multiple sites 06/01/2008 Other and unspecified hyperlipidemia 06/01/2008 12/22/2012 documented as of this encounter (statuses as of 06/26/2021) [facility] of [facility] illness Narrative* Problem Noted Date Resolved Date Change in bowel habits 11/23/2013 6 GERD (gastroesophageal reflux disease) 4 04/30/2017 Symptomatic menopausal or female climacteric sta noelle 01/12/2012 02/25/2016 Contact dermatitis and other eczema, due to unspecified cause 02/14/2009 01/17/2015 Xerosis cutis 02/14/2009 01/17/2015 Sun-damaged skin 02/14/2009 01/17/2015 Lentigo 02/14/2009 01/17/2015 Melanocytic nevus of trunk 02/14/200902/24 VIDAL ANGIOMA///Capillary Angioma 02/14/2009 01/17/2015 Acute gastritis with hemorrhage 10/17/2008 04/30/2017 Periodic limb movement disorder 09/12/2008 02/25/2016 Unspecified sleep apnea 07/31/2008 02/25/20 16 Overview: CPAP Pain in joint, multiple sites 06/01/2008 Other and unspecified hyperlipidemia 06/01/2008 12/22/2012 documented as of this encounter (statuses as of 07/28/2021) [facility] of [facility] illness Narrative* Problem Noted Date Resolved Date Change in bowel habits 11/23/2013 6 GERD (gastroesophageal reflux disease) 4 04/30/2017 Symptomatic menopausal or female climacteric sta noelle 01/12/2012 02/25/2016 Contact dermatitis and other eczema, due to unspecified cause 02/14/2009 01/17/2015 Xerosis cutis 02/14/2009 01/17/2015 Sun-damaged skin 02/14/2009 01/17/2015 Lentigo 02/14/2009 01/17/2015 Melanocytic nevus of trunk 02/14/200902/24 VIDAL ANGIOMA///Capillary Angioma 02/14/2009 01/17/2015 Acute gastritis with hemorrhage 10/17/2008 04/30/2017 Periodic limb movement disorder 09/12/2008 02/25/2016 Unspecified sleep apnea 07/31/2008 02/25/20 16 Overview: CPAP Pain in joint, multiple sites 06/01/2008 Other and unspecified hyperlipidemia 06/01/2008 12/22/2012 documented as of this encounter (statuses as of 07/30/2021) [facility] of [facility] illness Narrative* Problem Noted Date Resolved Date Change in bowel habits 11/23/2013 6 GERD (gastroesophageal reflux disease) 4 04/30/2017 Symptomatic menopausal or female climacteric sta noelle 01/12/2012 02/25/2016 Contact dermatitis and other eczema, due to unspecified cause 02/14/2009 01/17/2015 Xerosis cutis 02/14/2009 01/17/2015 Sun-damaged skin 02/14/2009 01/17/2015 Lentigo 02/14/2009 01/17/2015 Melanocytic nevus of trunk 02/14/200902/24 VIDAL ANGIOMA///Capillary Angioma 02/14/2009 01/17/2015 Acute gastritis with hemorrhage 10/17/2008 04/30/2017 Periodic limb movement disorder 09/12/2008 02/25/2016 Unspecified sleep apnea 07/31/2008 02/25/20 16 Overview: CPAP Pain in joint, multiple sites 06/01/2008 Other and unspecified hyperlipidemia 06/01/2008 12/22/2012 documented as of this encounter (statuses as of 08/14/2021) [facility] Narrative* Problem Noted Date Resolved Date Change in bowel habits 11/23/2013 6 GERD (gastroesophageal reflux disease) 4 04/30/2017 Symptomatic menopausal or female climacteric sta noelle 01/12/2012 02/25/2016 Contact dermatitis and other eczema, due to unspecified cause 02/14/2009 01/17/2015 Xerosis cutis 02/14/2009 01/17/2015 Sun-damaged skin 02/14/2009 01/17/2015 Lentigo 02/14/2009 01/17/2015 Melanocytic nevus of trunk 02/14/200902/24 VIDAL ANGIOMA///Capillary Angioma 02/14/2009 01/17/2015 Acute gastritis with hemorrhage 10/17/2008 04/30/2017 Periodic limb movement disorder 09/12/2008 02/25/2016 Unspecified sleep apnea 07/31/2008 02/25/20 16 Overview: CPAP Pain in joint, multiple sites 06/01/2008 Other and unspecified hyperlipidemia 06/01/2008 12/22/2012 documented as of this encounter (statuses as of 08/27/2021) [facility] Narrative* Problem Noted Date Resolved Date Change in bowel habits 11/23/2013 6 GERD (gastroesophageal reflux disease) 4 04/30/2017 Symptomatic menopausal or female climacteric sta noelle 01/12/2012 02/25/2016 Contact dermatitis and other eczema, due to unspecified cause 02/14/2009 01/17/2015 Xerosis cutis 02/14/2009 01/17/2015 Sun-damaged skin 02/14/2009 01/17/2015 Lentigo 02/14/2009 01/17/2015 Melanocytic nevus of trunk 02/14/200902/24 VIDAL ANGIOMA///Capillary Angioma 02/14/2009 01/17/2015 Acute gastritis with hemorrhage 10/17/2008 04/30/2017 Periodic limb movement disorder 09/12/2008 02/25/2016 Unspecified sleep apnea 07/31/2008 02/25/20 16 Overview: CPAP Pain in joint, multiple sites 06/01/2008 Other and unspecified hyperlipidemia 06/01/2008 12/22/2012 documented as of this encounter (statuses as of 09/03/2021) [facility] Narrative* Problem Noted Date Resolved Date Change in bowel habits 11/23/2013 6 GERD (gastroesophageal reflux disease) 4 04/30/2017 Symptomatic menopausal or female climacteric sta noelle 01/12/2012 02/25/2016 Contact dermatitis and other eczema, due to unspecified cause 02/14/2009 01/17/2015 Xerosis cutis 02/14/2009 01/17/2015 Sun-damaged skin 02/14/2009 01/17/2015 Lentigo 02/14/2009 01/17/2015 Melanocytic nevus of trunk 02/14/200902/24 VIDAL ANGIOMA///Capillary Angioma 02/14/2009 01/17/2015 Acute gastritis with hemorrhage 10/17/2008 04/30/2017 Periodic limb movement disorder 09/12/2008 02/25/2016 Unspecified sleep apnea 07/31/2008 02/25/20 16 Overview: CPAP Pain in joint, multiple sites 06/01/2008 Other and unspecified hyperlipidemia 06/01/2008 12/22/2012 documented as of this encounter (statuses as of 09/03/2021) [facility] Narrative* Problem Noted Date Resolved Date Change in bowel habits 11/23/2013 6 GERD (gastroesophageal reflux disease) 4 04/30/2017 Symptomatic menopausal or female climacteric sta noelle 01/12/2012 02/25/2016 Contact dermatitis and other eczema, due to unspecified cause 02/14/2009 01/17/2015 Xerosis cutis 02/14/2009 01/17/2015 Sun-damaged skin 02/14/2009 01/17/2015 Lentigo 02/14/2009 01/17/2015 Melanocytic nevus of trunk 02/14/200902/24 VIDAL ANGIOMA///Capillary Angioma 02/14/2009 01/17/2015 Acute gastritis with hemorrhage 10/17/2008 04/30/2017 Periodic limb movement disorder 09/12/2008 02/25/2016 Unspecified sleep apnea 07/31/2008 02/25/20 16 Overview: CPAP Pain in joint, multiple sites 06/01/2008 Other and unspecified hyperlipidemia 06/01/2008 12/22/2012 documented as of this encounter (statuses as of 10/30/2021) [facility] Narrative* Problem Noted Date Resolved Date Change in bowel habits 11/23/2013 6 GERD (gastroesophageal reflux disease) 4 04/30/2017 Symptomatic menopausal or female climacteric sta noelle 01/12/2012 02/25/2016 Contact dermatitis and other eczema, due to unspecified cause 02/14/2009 01/17/2015 Xerosis cutis 02/14/2009 01/17/2015 Sun-damaged skin 02/14/2009 01/17/2015 Lentigo 02/14/2009 01/17/2015 Melanocytic nevus of trunk 02/14/200902/24 VIDAL ANGIOMA///Capillary Angioma 02/14/2009 01/17/2015 Acute gastritis with hemorrhage 10/17/2008 04/30/2017 Periodic limb movement disorder 09/12/2008 02/25/2016 Unspecified sleep apnea 07/31/2008 02/25/20 16 Overview: CPAP Pain in joint, multiple sites 06/01/2008 Other and unspecified hyperlipidemia 06/01/2008 12/22/2012 documented as of this encounter (statuses as of 11/05/2021) [facility] Narrative* Problem Noted Date Resolved Date Change in bowel habits 11/23/2013 6 GERD (gastroesophageal reflux disease) 4 04/30/2017 Symptomatic menopausal or female climacteric sta noelle 01/12/2012 02/25/2016 Contact dermatitis and other eczema, due to unspecified cause 02/14/2009 01/17/2015 Xerosis cutis 02/14/2009 01/17/2015 Sun-damaged skin 02/14/2009 01/17/2015 Lentigo 02/14/2009 01/17/2015 Melanocytic nevus of trunk 02/14/200902/24 VIDAL ANGIOMA///Capillary Angioma 02/14/2009 01/17/2015 Acute gastritis with hemorrhage 10/17/2008 04/30/2017 Periodic limb movement disorder 09/12/2008 02/25/2016 Unspecified sleep apnea 07/31/2008 02/25/20 16 Overview: CPAP Pain in joint, multiple sites 06/01/2008 Other and unspecified hyperlipidemia 06/01/2008 12/22/2012 documented as of this encounter (statuses as of 11/05/2021) [facility] Narrative* Problem Noted Date Resolved Date Change in bowel habits 11/23/2013 6 GERD (gastroesophageal reflux disease) 4 04/30/2017 Symptomatic menopausal or female climacteric sta noelle 01/12/2012 02/25/2016 Contact dermatitis and other eczema, due to unspecified cause 02/14/2009 01/17/2015 Xerosis cutis 02/14/2009 01/17/2015 Sun-damaged skin 02/14/2009 01/17/2015 Lentigo 02/14/2009 01/17/2015 Melanocytic nevus of trunk 02/14/200902/24 VIDAL ANGIOMA///Capillary Angioma 02/14/2009 01/17/2015 Acute gastritis with hemorrhage 10/17/2008 04/30/2017 Periodic limb movement disorder 09/12/2008 02/25/2016 Unspecified sleep apnea 07/31/2008 02/25/20 16 Overview: CPAP Pain in joint, multiple sites 06/01/2008 Other and unspecified hyperlipidemia 06/01/2008 12/22/2012 documented as of this encounter (statuses as of 01/01/2022) [facility] Narrative* Problem Noted Date Resolved Date Change in bowel habits 11/23/2013 6 GERD (gastroesophageal reflux disease) 4 04/30/2017 Symptomatic menopausal or female climacteric sta noelle 01/12/2012 02/25/2016 Contact dermatitis and other eczema, due to unspecified cause 02/14/2009 01/17/2015 Xerosis cutis 02/14/2009 01/17/2015 Sun-damaged skin 02/14/2009 01/17/2015 Lentigo 02/14/2009 01/17/2015 Melanocytic nevus of trunk 02/14/200902/24 VIDAL ANGIOMA///Capillary Angioma 02/14/2009 01/17/2015 Acute gastritis with hemorrhage 10/17/2008 04/30/2017 Periodic limb movement disorder 09/12/2008 02/25/2016 Unspecified sleep apnea 07/31/2008 02/25/20 16 Overview: CPAP Pain in joint, multiple sites 06/01/2008 Other and unspecified hyperlipidemia 06/01/2008 12/22/2012 documented as of this encounter (statuses as of 01/25/2022) [facility] Narrative* Problem Noted Date Resolved Date Change in bowel habits 11/23/2013 6 GERD (gastroesophageal reflux disease) 4 04/30/2017 Symptomatic menopausal or female climacteric sta noelle 01/12/2012 02/25/2016 Contact dermatitis and other eczema, due to unspecified cause 02/14/2009 01/17/2015 Xerosis cutis 02/14/2009 01/17/2015 Sun-damaged skin 02/14/2009 01/17/2015 Lentigo 02/14/2009 01/17/2015 Melanocytic nevus of trunk 02/14/200902/24 VIDAL ANGIOMA///Capillary Angioma 02/14/2009 01/17/2015 Acute gastritis with hemorrhage 10/17/2008 04/30/2017 Periodic limb movement disorder 09/12/2008 02/25/2016 Unspecified sleep apnea 07/31/2008 02/25/20 16 Overview: CPAP Pain in joint, multiple sites 06/01/2008 Other and unspecified hyperlipidemia 06/01/2008 12/22/2012 documented as of this encounter (statuses as of 02/12/2022) [facility] Narrative* Problem Noted Date Resolved Date Change in bowel habits 11/23/2013 6 GERD (gastroesophageal reflux disease) 4 04/30/2017 Symptomatic menopausal or female climacteric sta noelle 01/12/2012 02/25/2016 Contact dermatitis and other eczema, due to unspecified cause 02/14/2009 01/17/2015 Xerosis cutis 02/14/2009 01/17/2015 Sun-damaged skin 02/14/2009 01/17/2015 Lentigo 02/14/2009 01/17/2015 Melanocytic nevus of trunk 02/14/200902/24 VIDAL ANGIOMA///Capillary Angioma 02/14/2009 01/17/2015 Acute gastritis with hemorrhage 10/17/2008 04/30/2017 Periodic limb movement disorder 09/12/2008 02/25/2016 Unspecified sleep apnea 07/31/2008 02/25/20 16 Overview: CPAP Pain in joint, multiple sites 06/01/2008 Other and unspecified hyperlipidemia 06/01/2008 12/22/2012 documented as of this encounter (statuses as of 02/12/2022) [facility] Narrative* Problem Noted Date Resolved Date Change in bowel habits 11/23/2013 6 GERD (gastroesophageal reflux disease) 4 04/30/2017 Symptomatic menopausal or female climacteric sta noelle 01/12/2012 02/25/2016 Contact dermatitis and other eczema, due to unspecified cause 02/14/2009 01/17/2015 Xerosis cutis 02/14/2009 01/17/2015 Sun-damaged skin 02/14/2009 01/17/2015 Lentigo 02/14/2009 01/17/2015 Melanocytic nevus of trunk 02/14/200902/24 VIDAL ANGIOMA///Capillary Angioma 02/14/2009 01/17/2015 Acute gastritis with hemorrhage 10/17/2008 04/30/2017 Periodic limb movement disorder 09/12/2008 02/25/2016 Unspecified sleep apnea 07/31/2008 02/25/20 16 Overview: CPAP Pain in joint, multiple sites 06/01/2008 Other and unspecified hyperlipidemia 06/01/2008 12/22/2012 documented as of this encounter (statuses as of 04/12/2022) [facility] Narrative* Problem Noted Date Resolved Date Change in bowel habits 11/23/2013 6 GERD (gastroesophageal reflux disease) 4 04/30/2017 Symptomatic menopausal or female climacteric sta noelle 01/12/2012 02/25/2016 Contact dermatitis and other eczema, due to unspecified cause 02/14/2009 01/17/2015 Xerosis cutis 02/14/2009 01/17/2015 Sun-damaged skin 02/14/2009 01/17/2015 Lentigo 02/14/2009 01/17/2015 Melanocytic nevus of trunk 02/14/200902/24 VIDAL ANGIOMA///Capillary Angioma 02/14/2009 01/17/2015 Acute gastritis with hemorrhage 10/17/2008 04/30/2017 Periodic limb movement disorder 09/12/2008 02/25/2016 Unspecified sleep apnea 07/31/2008 02/25/20 16 Overview: CPAP Pain in joint, multiple sites 06/01/2008 Other and unspecified hyperlipidemia 06/01/2008 12/22/2012 documented as of this encounter (statuses as of 04/14/2022) [facility] Narrative* Problem Noted Date Resolved Date Change in bowel habits 11/23/2013 6 GERD (gastroesophageal reflux disease) 4 04/30/2017 Symptomatic menopausal or female climacteric sta noelle 01/12/2012 02/25/2016 Contact dermatitis and other eczema, due to unspecified cause 02/14/2009 01/17/2015 Xerosis cutis 02/14/2009 01/17/2015 Sun-damaged skin 02/14/2009 01/17/2015 Lentigo 02/14/2009 01/17/2015 Melanocytic nevus of trunk 02/14/200902/24 VIDAL ANGIOMA///Capillary Angioma 02/14/2009 01/17/2015 Acute gastritis with hemorrhage 10/17/2008 04/30/2017 Periodic limb movement disorder 09/12/2008 02/25/2016 Unspecified sleep apnea 07/31/2008 02/25/20 16 Overview: CPAP Pain in joint, multiple sites 06/01/2008 Other and unspecified hyperlipidemia 06/01/2008 12/22/2012 documented as of this encounter (statuses as of 04/22/2022) [facility] Narrative* Problem Noted Date Resolved Date Change in bowel habits 11/23/2013 6 GERD (gastroesophageal reflux disease) 4 04/30/2017 Symptomatic menopausal or female climacteric sta noelle 01/12/2012 02/25/2016 Contact dermatitis and other eczema, due to unspecified cause 02/14/2009 01/17/2015 Xerosis cutis 02/14/2009 01/17/2015 Sun-damaged skin 02/14/2009 01/17/2015 Lentigo 02/14/2009 01/17/2015 Melanocytic nevus of trunk 02/14/200902/24 VIDAL ANGIOMA///Capillary Angioma 02/14/2009 01/17/2015 Acute gastritis with hemorrhage 10/17/2008 04/30/2017 Periodic limb movement disorder 09/12/2008 02/25/2016 Unspecified sleep apnea 07/31/2008 02/25/20 16 Overview: CPAP Pain in joint, multiple sites 06/01/2008 Other and unspecified hyperlipidemia 06/01/2008 12/22/2012 documented as of this encounter (statuses as of 04/24/2022) [facility] History of Past illness Narrative* Problem Noted Date Resolved Date Change in bowel habits 11/23/2013 6 GERD (gastroesophageal reflux disease) 4 04/30/2017 Symptomatic menopausal or female climacteric sta noelle 01/12/2012 02/25/2016 Contact dermatitis and other eczema, due to unspecified cause 02/14/2009 01/17/2015 Xerosis cutis 02/14/2009 01/17/2015 Sun-damaged skin 02/14/2009 01/17/2015 Lentigo 02/14/2009 01/17/2015 Melanocytic nevus of trunk 02/14/200902/24 VIDAL ANGIOMA///Capillary Angioma 02/14/2009 01/17/2015 Acute gastritis with hemorrhage 10/17/2008 04/30/2017 Periodic limb movement disorder 09/12/2008 02/25/2016 Unspecified sleep apnea 07/31/2008 02/25/20 16 Overview: CPAP Pain in joint, multiple sites 06/01/2008 Other and unspecified hyperlipidemia 06/01/2008 12/22/2012 documented as of this encounter (statuses as of 05/09/2022) [facility] History of Past illness Narrative* Problem Noted Date Resolved Date Change in bowel habits 11/23/2013 6 GERD (gastroesophageal reflux disease) 4 04/30/2017 Symptomatic menopausal or female climacteric sta noelle 01/12/2012 02/25/2016 Contact dermatitis and other eczema, due to unspecified cause 02/14/2009 01/17/2015 Xerosis cutis 02/14/2009 01/17/2015 Sun-damaged skin 02/14/2009 01/17/2015 Lentigo 02/14/2009 01/17/2015 Melanocytic nevus of trunk 02/14/200902/24 VIDAL ANGIOMA///Capillary Angioma 02/14/2009 01/17/2015 Acute gastritis with hemorrhage 10/17/2008 04/30/2017 Periodic limb movement disorder 09/12/2008 02/25/2016 Unspecified sleep apnea 07/31/2008 02/25/20 16 Overview: CPAP Pain in joint, multiple sites 06/01/2008 Other and unspecified hyperlipidemia 06/01/2008 12/22/2012 documented as of this encounter (statuses as of 06/27/2022) [facility] History of Past illness Narrative* Problem Noted Date Resolved Date Change in bowel habits 11/23/2013 6 GERD (gastroesophageal reflux disease) 4 04/30/2017 Symptomatic menopausal or female climacteric sta noelle 01/12/2012 02/25/2016 Contact dermatitis and other eczema, due to unspecified cause 02/14/2009 01/17/2015 Xerosis cutis 02/14/2009 01/17/2015 Sun-damaged skin 02/14/2009 01/17/2015 Lentigo 02/14/2009 01/17/2015 Melanocytic nevus of trunk 02/14/200902/24 VIDAL ANGIOMA///Capillary Angioma 02/14/2009 01/17/2015 Acute gastritis with hemorrhage 10/17/2008 04/30/2017 Periodic limb movement disorder 09/12/2008 02/25/2016 Unspecified sleep apnea 07/31/2008 02/25/20 16 Overview: CPAP Pain in joint, multiple sites 06/01/2008 Other and unspecified hyperlipidemia 06/01/2008 12/22/2012 documented as of this encounter (statuses as of 07/24/2022) [facility] History of Past illness Narrative* Problem Noted Date Resolved Date Change in bowel habits 11/23/2013 6 GERD (gastroesophageal reflux disease) 4 04/30/2017 Symptomatic menopausal or female climacteric sta noelle 01/12/2012 02/25/2016 Contact dermatitis and other eczema, due to unspecified cause 02/14/2009 01/17/2015 Xerosis cutis 02/14/2009 01/17/2015 Sun-damaged skin 02/14/2009 01/17/2015 Lentigo 02/14/2009 01/17/2015 Melanocytic nevus of trunk 02/14/200902/24 VIDAL ANGIOMA///Capillary Angioma 02/14/2009 01/17/2015 Acute gastritis with hemorrhage 10/17/2008 04/30/2017 Periodic limb movement disorder 09/12/2008 02/25/2016 Unspecified sleep apnea 07/31/2008 02/25/20 16 Overview: CPAP Pain in joint, multiple sites 06/01/2008 Other and unspecified hyperlipidemia 06/01/2008 12/22/2012 documented as of this encounter (statuses as of 08/04/2022) [facility] History of Past illness Narrative* Problem Noted Date Diagnosed Date Resolved Date Change in bowel habits 11/23/201302/24 GERD (gastroesophageal reflux disease) 11/23/2013 04/30/2017 Symptomatic menopausal or fe male climacteric states 01/12/2012 02/25/2016 Contact dermatitis and other eczema, due to unspecified cause 02/14/2009 01/17/2015 Xerosis cutis 02/14/2009 01/17/2015 Sun-damaged skin 02/14/2009 01/17/2015 Lentigo 02/14/2009 01/17/2015 Melanocytic nevus of trunk 02/14/200904/26/2015 VIADL ANGIOMA///Capillary Angioma 02/14/2009 01/17/2015 Acute gastritis with hemorrhage 10/17/2008 04/30/2017 Periodic limb movement disorder 09/12/2008 02/25/2016 Unspecified sleep apnea 07/31/200802/04 Overview: CPAP Pain in joint, multiple sites 06/01/2008 01/17/2015 Other and unspecified hyperlipidemia 06/01/2008 12/22/2012 documented as of this encounter (statuses as of 11/05/2022) [facility] History of Past illness Narrative* Problem Noted Date Diagnosed Date Resolved Date Change in bowel habits 11/23/201302/24 GERD (gastroesophageal reflux disease) 11/23/2013 04/30/2017 Symptomatic menopausal or fe male climacteric states 01/12/2012 02/25/2016 Contact dermatitis and other eczema, due to unspecified cause 02/14/2009 01/17/2015 Xerosis cutis 02/14/2009 01/17/2015 Sun-damaged skin 02/14/2009 01/17/2015 Lentigo 02/14/2009 01/17/2015 Melanocytic nevus of trunk 02/14/200904/26/2015 VIDAL ANGIOMA///Capillary Angioma 02/14/2009 01/17/2015 Acute gastritis with hemorrhage 10/17/2008 04/30/2017 Periodic limb movement disorder 09/12/2008 02/25/2016 Unspecified sleep apnea 07/31/200802/04 Overview: CPAP Pain in joint, multiple sites 06/01/2008 01/17/2015 Other and unspecified hyperlipidemia 06/01/2008 12/22/2012 documented as of this encounter (statuses as of 11/05/2022) [facility] History of Past illness Narrative* Problem Noted Date Diagnosed Date Resolved Date Change in bowel habits 11/23/201302/24 GERD (gastroesophageal reflux disease) 11/23/2013 04/30/2017 Symptomatic menopausal or fe male climacteric states 01/12/2012 02/25/2016 Contact dermatitis and other eczema, due to unspecified cause 02/14/2009 01/17/2015 Xerosis cutis 02/14/2009 01/17/2015 Sun-damaged skin 02/14/2009 01/17/2015 Lentigo 02/14/2009 01/17/2015 Melanocytic nevus of trunk 02/14/2009 1 04/26/2015 VIDAL ANGIOMA///Capillary Angioma 02/14/2009 01/17/2015 Acute gastritis with hemorrhage 10/17/2008 04/30/2017 Periodic limb movement disorder 09/12/2008 02/25/2016 Unspecified sleep apnea 07/31/200802/04 Overview: CPAP Pain in joint, multiple sites 06/01/2008 01/17/2015 Other and unspecified hyperlipidemia 06/01/2008 12/22/2012 documented as of this encounter (statuses as of 11/14/2022) [facility] History of Past illness Narrative* Problem Noted Date Diagnosed Date Resolved Date Change in bowel habits 11/23/201302/24 GERD (gastroesophageal reflux disease) 11/23/2013 04/30/2017 Symptomatic menopausal or fe male climacteric states 01/12/2012 02/25/2016 Contact dermatitis and other eczema, due to unspecified cause 02/14/2009 01/17/2015 Xerosis cutis 02/14/2009 01/17/2015 Sun-damaged skin 02/14/2009 01/17/2015 Lentigo 02/14/2009 01/17/2015 Melanocytic nevus of trunk 02/14/200904/26/2015 VIDAL ANGIOMA///Capillary Angioma 02/14/2009 01/17/2015 Acute gastritis with hemorrhage 10/17/2008 04/30/2017 Periodic limb movement disorder 09/12/2008 02/25/2016 Unspecified sleep apnea 07/31/200802/04 Overview: CPAP Pain in joint, multiple sites 06/01/2008 01/17/2015 Other and unspecified hyperlipidemia 06/01/2008 12/22/2012 documented as of this encounter (statuses as of 12/11/2022) [facility] History of Past illness Narrative* Problem Noted Date Diagnosed Date Resolved Date Change in bowel habits 11/23/201302/24 GERD (gastroesophageal reflux disease) 11/23/2013 04/30/2017 Symptomatic menopausal or fe male climacteric states 01/12/2012 02/25/2016 Contact dermatitis and other eczema, due to unspecified cause 02/14/2009 01/17/2015 Xerosis cutis 02/14/2009 01/17/2015 Sun-damaged skin 02/14/2009 01/17/2015 Lentigo 02/14/2009 01/17/2015 Melanocytic nevus of trunk 02/14/200904/26/2015 VIDAL ANGIOMA///Capillary Angioma 02/14/2009 01/17/2015 Acute gastritis with hemorrhage 10/17/2008 04/30/2017 Periodic limb movement disorder 09/12/2008 02/25/2016 Unspecified sleep apnea 07/31/200802/04 Overview: CPAP Pain in joint, multiple sites 06/01/2008 01/17/2015 Other and unspecified hyperlipidemia 06/01/2008 12/22/2012 documented as of this encounter (statuses as of 12/11/2022) [facility] History of Past illness Narrative* Problem Noted Date Diagnosed Date Resolved Date Change in bowel habits 11/23/201302/24 GERD (gastroesophageal reflux disease) 11/23/2013 04/30/2017 Symptomatic menopausal or fe male climacteric states 01/12/2012 02/25/2016 Contact dermatitis and other eczema, due to unspecified cause 02/14/2009 01/17/2015 Xerosis cutis 02/14/2009 01/17/2015 Sun-damaged skin 02/14/2009 01/17/2015 Lentigo 02/14/2009 01/17/2015 Melanocytic nevus of trunk 02/14/200904/26/2015 VIDAL ANGIOMA///Capillary Angioma 02/14/2009 01/17/2015 Acute gastritis with hemorrhage 10/17/2008 04/30/2017 Periodic limb movement disorder 09/12/2008 02/25/2016 Unspecified sleep apnea 07/31/200802/04 Overview: CPAP Pain in joint, multiple sites 06/01/2008 01/17/2015 Other and unspecified hyperlipidemia 06/01/2008 12/22/2012 documented as of this encounter (statuses as of 12/11/2022) [facility] History of Past illness Narrative* Problem Noted Date Diagnosed Date Resolved Date Change in bowel habits 11/23/201302/24 GERD (gastroesophageal reflux disease) 11/23/2013 04/30/2017 Symptomatic menopausal or fe male climacteric states 01/12/2012 02/25/2016 Contact dermatitis and other eczema, due to unspecified cause 02/14/2009 01/17/2015 Xerosis cutis 02/14/2009 01/17/2015 Sun-damaged skin 02/14/2009 01/17/2015 Lentigo 02/14/2009 01/17/2015 Melanocytic nevus of trunk 02/14/2009 1 04/26/2015 VIDAL ANGIOMA///Capillary Angioma 02/14/2009 01/17/2015 Acute gastritis with hemorrhage 10/17/2008 04/30/2017 Periodic limb movement disorder 09/12/2008 02/25/2016 Unspecified sleep apnea 07/31/200802/04 Overview: CPAP Pain in joint, multiple sites 06/01/2008 01/17/2015 Other and unspecified hyperlipidemia 06/01/2008 12/22/2012 documented as of this encounter (statuses as of 02/07/2023) [facility] History of Past illness Narrative* Problem Noted Date Diagnosed Date Resolved Date Change in bowel habits 11/23/201302/24 GERD (gastroesophageal reflux disease) 11/23/2013 04/30/2017 Symptomatic menopausal or fe male climacteric states 01/12/2012 02/25/2016 Contact dermatitis and other eczema, due to unspecified cause 02/14/2009 01/17/2015 Xerosis cutis 02/14/2009 01/17/2015 Sun-damaged skin 02/14/2009 01/17/2015 Lentigo 02/14/2009 01/17/2015 Melanocytic nevus of trunk 02/14/2009 1 04/26/2015 VIDAL ANGIOMA///Capillary Angioma 02/14/2009 01/17/2015 Acute gastritis with hemorrhage 10/17/2008 04/30/2017 Periodic limb movement disorder 09/12/2008 02/25/2016 Unspecified sleep apnea 07/31/200802/04 Overview: CPAP Pain in joint, multiple sites 06/01/2008 01/17/2015 Other and unspecified hyperlipidemia 06/01/2008 12/22/2012 documented as of this encounter (statuses as of 06/03/2023) [facility] History of Past illness Narrative* Problem Noted Date Diagnosed Date Resolved Date Change in bowel habits 11/23/201302/24 GERD (gastroesophageal reflux disease) 11/23/2013 04/30/2017 Symptomatic menopausal or fe male climacteric states 01/12/2012 02/25/2016 Contact dermatitis and other eczema, due to unspecified cause 02/14/2009 01/17/2015 Xerosis cutis 02/14/2009 01/17/2015 Sun-damaged skin 02/14/2009 01/17/2015 Lentigo 02/14/2009 01/17/2015 Melanocytic nevus of trunk 02/14/2009 1 04/26/2015 VIDAL ANGIOMA///Capillary Angioma 02/14/2009 01/17/2015 Acute gastritis with hemorrhage 10/17/2008 04/30/2017 Periodic limb movement disorder 09/12/2008 02/25/2016 Unspecified sleep apnea 07/31/200802/04 Overview: CPAP Pain in joint, multiple sites 06/01/2008 01/17/2015 Other and unspecified hyperlipidemia 06/01/2008 12/22/2012 documented as of this encounter (statuses as of 06/03/2023) [facility] History of Past illness Narrative* Problem Noted Date Diagnosed Date Resolved Date Change in bowel habits 11/23/201302/24 GERD (gastroesophageal reflux disease) 11/23/2013 04/30/2017 Symptomatic menopausal or fe male climacteric states 01/12/2012 02/25/2016 Contact dermatitis and other eczema, due to unspecified cause 02/14/2009 01/17/2015 Xerosis cutis 02/14/2009 01/17/2015 Sun-damaged skin 02/14/2009 01/17/2015 Lentigo 02/14/2009 01/17/2015 Melanocytic nevus of trunk 02/14/2009 1 04/26/2015 VIDAL ANGIOMA///Capillary Angioma 02/14/2009 01/17/2015 Acute gastritis with hemorrhage 10/17/2008 04/30/2017 Periodic limb movement disorder 09/12/2008 02/25/2016 Unspecified sleep apnea 07/31/200802/04 Overview: CPAP Pain in joint, multiple sites 06/01/2008 01/17/2015 Other and unspecified hyperlipidemia 06/01/2008 12/22/2012 documented as of this encounter (statuses as of 06/04/2023) [facility] History of Past illness Narrative* Problem Noted Date Diagnosed Date Resolved Date Change in bowel habits 11/23/201302/24 GERD (gastroesophageal reflux disease) 11/23/2013 04/30/2017 Symptomatic menopausal or fe male climacteric states 01/12/2012 02/25/2016 Contact dermatitis and other eczema, due to unspecified cause 02/14/2009 01/17/2015 Xerosis cutis 02/14/2009 01/17/2015 Sun-damaged skin 02/14/2009 01/17/2015 Lentigo 02/14/2009 01/17/2015 Melanocytic nevus of trunk 02/14/2009 1 04/26/2015 VIDAL ANGIOMA///Capillary Angioma 02/14/2009 01/17/2015 Acute gastritis with hemorrhage 10/17/2008 04/30/2017 Periodic limb movement disorder 09/12/2008 02/25/2016 Unspecified sleep apnea 07/31/200802/04 Overview: CPAP Pain in joint, multiple sites 06/01/2008 01/17/2015 Other and unspecified hyperlipidemia 06/01/2008 12/22/2012 Recurrent major depressive d isorder, in partial remission 06/01/2008 07/13/2023 documented as of this encounter (statuses as of 07/14/2023) [facility] Acute non-recurrent sinusitis, unspecified location- Primary Acute upper respiratory infection, unspecified [facility] Diagnosis Fibromyalgia Mylagia and myositis, unspecified [facility]* Diagnosis COVID- Primary Cough [facility] Diagnosis Encounter for gynecologic examination for high-risk patient covered by Medicare- Primary Routine gynecological examination Lichen sclerosus et atrophicus Circumscribed scleroderma Pap smear for cervical cancer screening Screening for malignant neoplasm of the cervix Encounter for screening mammogram for breast cancer Dense breast tissue on mammogram [facility]* Diagnosis Sore throat- Primary Acute pharyngitis [facility]* Diagnosis Sore throat- Primary Acute pharyngitis Suspected COVID-19 virus infection Impacted cerumen of right ear Impacted cerumen [facility] Diagnosis URI, acute- Primary Acute upper respiratory infections of unspecified site [facility]* Diagnosis Fibromyalgia Mylagia and myositis, unspecified [facility]* Diagnosis Elevated blood pressure reading without diagnosis of hypertension [facility]* Diagnosis Acute cough- Primary Acute frontal sinusitis, recurrence not specified [facility]* Diagnosis Yeast vaginitis Candidiasis of vulva and vagina [facility]* Diagnosis Fibromyalgia- Primary Mylagia and myositis, unspecified SHANNON on CPAP Obstructive sleep apnea (adult) (pediatric) Recurrent major depressive disorder, in partial remission (HCC) Mixed hyperlipidemia Chronic fatigue Other malaise and fatigue Generalized anxiety disorder Asymptomatic postmenopausal status Encounter for long-term current use of medication [facility] Diagnosis Urinary frequency- Primary [facility]* Diagnosis Urinary frequency- Primary [facility]* Diagnosis Fibromyalgia Mylagia and myositis, unspecified [facility]* Diagnosis Fibromyalgia Mylagia and myositis, unspecified [facility]* Diagnosis Knee pain, unspecified chronicity, unspecified laterality- Primary [facility]* Diagnosis Urgency of urination- Primary [facility] [place] [facility] Diagnosis Recurrent major depressive disorder, in partial remission (HCC)- Primary Generalized anxiety disorder Obstructive sleep apnea Obstructive sleep apnea (adult) (pediatric) Chronic fatigue Other malaise and fatigue Encounter for lipid screening for cardiovascular disease Screening for lipoid disorders documented in this encounter [facility] note* Diagnosis Encounter for screening mammogram for breast cancer Dense breast tissue on mammogram [facility] [place] [facility]* Diagnosis Chronic pain of both knees- Primary documented in this encounter [facility] note* Diagnosis Primary osteoarthritis of both knees- Primary Pain in both knees, unspecified chronicity documented in this encounter [facility] note* Diagnosis Elevated LDL cholesterol level- Primary Pure hypercholesterolemia Fibromyalgia Mylagia and myositis, unspecified Family history of coronary artery disease in mother Insomnia, unspecified type SHANNON on CPAP Obstructive sleep apnea (adult) (pediatric) Mild episode of recurrent major depressive disorder (HCC) Encounter for screening for cardiovascular disorders Screening for other and unspecified cardiovascular conditions documented in this encounter [facility] note* Diagnosis Elevated LDL cholesterol level Pure hypercholesterolemia Encounter for screening for cardiovascular disorders Screening for other and unspecified cardiovascular conditions Family history of coronary artery disease in mother [facility] [place] [facility]* Diagnosis Encounter for long-term current use of medication- Primary Elevated LDL cholesterol level Pure hypercholesterolemia [facility] [place] [facility]* Diagnosis Preop examination- Primary Preoperative examination, unspecified Shoulder strain, left, initial encounter Encounter for immunization Need for other specified prophylactic vaccination against single bacterial disease [facility] [place] [facility]* Diagnosis Generalized osteoarthritis- Primary Generalized osteoarthrosis, unspecified site Chronic bilateral low back pain without sciatica Fibromyalgia Mylagia and myositis, unspecified Chronic pain of both knees [facility] [place] [facility]* Diagnosis Screen for colon cancer- Primary Special screening for malignant neoplasms, colon documented in this encounter [facility] note* Diagnosis Chronic bilateral low back pain without sciatica Fibromyalgia Mylagia and myositis, unspecified Chronic pain of both knees [facility] [place] [facility]* Diagnosis COVID [facility] [place] [facility] Diagnosis Fibromyalgia Mylagia and myositis, unspecified documented in this encounter [facility] note* Diagnosis Primary hypertension Unspecified essential hypertension [facility] [place] [facility]* Diagnosis Chronic bilateral low back pain without sciatica- Primary Microcytic anemia Iron deficiency anemia, unspecified Fibromyalgia Mylagia and myositis, unspecified Chronic pain of both knees Mixed hyperlipidemia [facility] [place] [facility]* Diagnosis Encounter for screening for malignant neoplasm of colon- Primary Special screening for malignant neoplasms, colon Screen for colon cancer Special screening for malignant neoplasms, colon documented in this encounter [facility] note* Diagnosis Chafing- Primary Other specified disorder of skin Lichen sclerosus et atrophicus Circumscribed scleroderma documented in this encounter [facility] note* Diagnosis Heat intolerance- Primary Unspecified effects of heat and light Weight loss, unintentional Loss of weight Encounter for therapeutic drug monitoring Chronic fatigue Other malaise and fatigue Microcytic anemia Iron deficiency anemia, unspecified Vitamin D deficiency Unspecified vitamin D deficiency Encounter for screening for diabetes mellitus Screening for diabetes mellitus [facility] [place] [facility]* Diagnosis Heat intolerance- Primary Unspecified effects of heat and light Chronic fatigue Other malaise and fatigue Elevated serum free T4 level Nonspecific abnormal results of thyroid function study Hypermagnesemia Disorders of magnesium metabolism Postmenopausal Asymptomatic postmenopausal status (age-related) (natural) High serum triiodothyronine (T3) High serum vitamin B12 Vitamin D deficiency Unspecified vitamin D deficiency Primary hypertension Unspecified essential hypertension Mixed hyperlipidemia [facility] [place] [facility]* Diagnosis Fibromyalgia Mylagia and myositis, unspecified [facility] [place] [facility]* Diagnosis Preoperative evaluation to rule out surgical contraindication- Primary Other specified pre-operative examination Constipation, unspecified constipation type Gas pain Flatulence, eructation, and gas pain Dental infection Acute apical periodontitis of pulpal origin [facility] [place] [facility]* Diagnosis 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 Chafing Other specified disorder of skin Postmenopausal atrophic vaginitis [facility] [place] [facility]* Diagnosis Sore throat- Primary Acute pharyngitis Viral illness Unspecified viral infection, in conditions classified elsewhere and of unspecified site [facility] [place] [facility]* Diagnosis Leukocytosis, unspecified type- Primary documented in this encounter [facility] note* Diagnosis Preoperative clearance- Primary Preoperative examination, unspecified Primary osteoarthritis of right knee Primary localized osteoarthrosis, lower leg Leukocytosis, unspecified type Abnormal EKG Nonspecific abnormal electrocardiogram (ECG) (EKG) Iron deficiency anemia, unspecified iron deficiency anemia type [facility] [place] [facility] Diagnosis Abnormal ECG- Primary Nonspecific abnormal electrocardiogram (ECG) (EKG) [facility] [place] [facility] Diagnosis Flu-like symptoms- Primary Other general symptoms Acute upper respiratory infection, unspecified Primary hypertension Unspecified essential hypertension [facility] [place] [facility] Diagnosis Flu-like symptoms- Primary Other general symptoms Fibromyalgia Mylagia and myositis, unspecified Acute upper respiratory infection, unspecified Fever, unspecified fever cause Other fatigue [facility] [place] [facility] Diagnosis Flu-like symptoms Other general symptoms Acute upper respiratory infection, unspecified Fever, unspecified fever cause [facility] [place] [facility] Diagnosis Flu-like symptoms- Primary Other general symptoms Acute upper respiratory infection, unspecified Fever, unspecified fever cause Family history of rheumatoid arthritis Family history of arthritis [facility] [place] [facility] Diagnosis Postviral fatigue syndrome- Primary Chronic fatigue syndrome Iron deficiency anemia, unspecified iron deficiency anemia type Viral cephalgia Unspecified viral infection, in conditions classified elsewhere and of unspecified site Fibromyalgia Mylagia and myositis, unspecified [facility] [place] [facility]* Diagnosis Hemarthrosis of left knee- Primary Hemarthrosis, lower leg Chronic pain of left knee Pain in joint, lower leg Effusion of left knee Effusion of lower leg joint [facility] [place] [facility]* Diagnosis Obstructive sleep apnea- Primary Obstructive sleep apnea (adult) (pediatric) Mixed hyperlipidemia Encounter for immunization Need for other specified prophylactic vaccination against single bacterial disease Generalized anxiety disorder Moderate recurrent major depression (HCC) Major depressive disorder, recurrent episode, moderate Anemia, unspecified type Vitamin D deficiency Unspecified vitamin D deficiency [facility] [place] [facility] Diagnosis Preop exam for internal medicine- Primary Other specified pre-operative examination Chronic pain of right knee Obstructive sleep apnea Obstructive sleep apnea (adult) (pediatric) Primary hypertension Unspecified essential hypertension Primary osteoarthritis of right knee Primary localized osteoarthrosis, lower leg documented in this encounter [facility] course Narrative No data available for this section [facility] Hospital Discharge instructions No data available for this section [facility] Progress note No data available for this section [facility] Reason for referral (narrative)* Diagnostic Procedure Only (Routine) - Pending Review Specialty Diagnoses / Procedures Referred By Ricky t Referred To Contact [facility] Diagnoses Encounter for screening mammogram for breast cancer Dense breast tissue on mammogram Procedures VALENTE SCREENING W MUNA SCREENING DIGITAL BREAST TOMOSYNTHESIS BI SCREENING MAMMOGRAPHY BI 2-VIEW BREAST INC Gabriela Luna APRN.CNP [address] [place] [address] [facility] [address] [place] [address] Referral ID Status Reason Start Date Expiration Date Visits Requested Visits Authorized [id number] Pending Review Auto-Generat ed Referral 10/30/2021 11/29/2022 1 1 [facility] for referral (narrative)* Diagnostic Procedure Only (Routine) - Closed Specialty Diagnoses / Procedures Referred By Ricky wilson Referred To Contact [facility] Diagnoses Encounter for screening mammogram for breast cancer Dense breast tissue on mammogram Procedures VALENTE SCREENING W MUNA SCREENING DIGITAL BREAST TOMOSYNTHESIS BI SCREENING MAMMOGRAPHY BI 2-VIEW BREAST INC Gabriela Luna APRN.CNP [address] [place] [address] [facility] [address] [place] [address] Referral ID Status Reason Start Date Expiration Date V isits Requested Visits Authorized [id number] Closed Auto-Generate d Referral 10/30/2021 11/29/2022 1 1 [facility] for referral (narrative)* Diagnostic Procedure Only (Routine) - Pending Review Specialty Diagnoses / Procedures Referred By Ricky t Referred To Contact [facility] Procedures VALENTE SCREENING W MUNA SCREENING DIGITAL BREAST TOMOSYNTHESIS BI SCREENING MAMMOGRAPHY BI 2-VIEW BREAST INC CAD Eriberto Tovar MD [address] [place] [address] [facility] [address] [place] [address] Referral ID Status Reason Start Date Expiration Date Visits Requested Visits Authorized [id number] Pending Review Auto-Generat ed Referral 07/28/2023 08/26/2024 1 1 [facility] for referral (narrative)* Outpatient Procedure (Routine) - Authorized Specialty Diagnoses / Procedures Referred By Ricky wilson Referred To Contact [facility] Diagnoses Screen for colon cancer Procedures COLONOSCOPY SCREENING COLONOSCOPY FLX DX W/COLLJ SPEC WHEN Mayela Reaves APRN.BODY TEAM MEMBER [address] [place] [address] [facility] [place] [address] [place] [address] Referral ID Status Reason Start Date Expiration Date Visits Requested Visits Authorized [id number] Authorized Auto-Generat ed Referral 12/15/2023 12/14/2024 1 1 [facility] for referral (narrative)* Outpatient Procedure (Routine) - Closed Specialty Diagnoses / Procedures Referred By Ricky wilson Referred To Contact [facility] Diagnoses Screen for colon cancer Procedures COLONOSCOPY SCREENING COLONOSCOPY FLX DX W/COLLJ SPEC WHEN Mayela Reaves APRN.CNP [address] [facility] [place] [address] [address] Referral ID Status Reason Start Date Expiration Date V isits Requested Visits Authorized [id number] Closed Auto-Generate d Referral 12/15/2023 12/14/2024 1 1 [facility] for visit Narrative* Diagnostic Procedure Only (Routine) - Closed Specialty Diagnoses / Procedures Referred By Ricky wilson Referred To Contact [facility] Diagnoses Encounter for screening mammogram for breast cancer Dense breast tissue on mammogram Procedures VALENTE SCREENING W MUNA SCREENING DIGITAL BREAST TOMOSYNTHESIS BI SCREENING MAMMOGRAPHY BI 2-VIEW BREAST INC CAD Gabriela Britt, COCOA ROOM OPERATOR.BODY TEAM MEMBER [address] [place] [address] [facility] [address] [place] [address] Referral ID Status Reason Start Date Expiration Date V isits Requested Visits Authorized [id number] Closed Auto-Generate d Referral 10/30/2021 11/29/2022 1 1 [facility] for visit Narrative* Outpatient Procedure (Routine) - Closed Specialty Diagnoses / Procedures Referred By Ricky wilson Referred To Contact [facility] Diagnoses Screen for colon cancer Procedures COLONOSCOPY SCREENING COLONOSCOPY FLX DX W/COLLJ SPEC WHEN Mayela Reaves, COCOA ROOM OPERATOR.BODY TEAM MEMBER [address] [place] [address] [facility] [place] [address] [place] [address] Referral ID Status Reason Start Date Expiration Date V isits Requested Visits Authorized [id number] Closed Auto-Generate d Referral 12/15/2023 12/14/2024 1 1 [facility] for visit Narrative* Diagnostic Procedure Only (Routine) - Closed Specialty Diagnoses / Procedures Referred By Ricky wilson Referred To Contact [facility] Procedures VALENTE SCREENING W MUNA SCREENING DIGITAL BREAST TOMOSYNTHESIS BI SCREENING MAMMOGRAPHY BI 2-VIEW BREAST INC Eriberto Pittman MD [address] [place] [address] [facility] [address] [place] [address] Referral ID Status Reason Start Date Expiration Date V isits Requested Visits Authorized [id number] Closed Auto-Generate d Referral 07/28/2023 08/26/2024 1 1 [facility] Concerns Infection Onset Date Last Indicated Resolved Time COVID-19 Rule-Out 06/26/2021 06/26/2021 Infection Onset Date Last Indicated Resolved Time COVID-19 Rule-Out 06/26/2021 06/26/2021 06/27/2021 3:42 AM EDT Infection Onset Date Last Indicated Resolved Time COVID-19 Rule-Out 11/05/2021 11/05/2021 Infection Onset Date Last Indicated Resolved Time COVID-19 Rule-Out 04/12/2022 04/12/2022 Infection Onset Date Last Indicated Resolved Time COVID-19 Rule-Out 04/12/2022 04/12/2022 04/13/2022 2:39 AM EST Reason for Referral Specialty Diagnoses / Procedures Referred By Contac t Referred To Contact Orthopedics Diagnoses Chronic pain of both knees Procedures CONSULT TO ORTHOPAEDICS OFFICE/OUTPATIENT [facility] 60 MINUTES Richy Dominguez APRN.BODY TEAM MEMBER [address] [place] [address] Referral ID Status Reason Start Date Expiration Date Visits Requested Visits Authorized [id number] Authorized PCP Requested Referral 06/02/2023 05/30/2024 1 1 Specialty Diagnoses / Procedures Referred By Contac t Referred To Contact Diagnoses [place]ANNON on CPAP Procedures CONSULT TO SLEEP MEDICINE - ADULT OFFICE/OUTPATIENT [facility] 60 MINUTES Eriberto Tovar MD [address] [place] [address] Maile Laguerre APRN.BODY TEAM MEMBER [address] [place] [address] Referral ID Status Reason Start Date Expiration Date Visits Requested Visits Authorized [id number] Authorized PCP Requested Referral 07/09/2023 07/08/2024 1 1 Specialty Diagnoses / Procedures Referred By Contac t Referred To Contact CT IMAGING Diagnoses Elevated LDL cholesterol level Encounter for screening for cardiovascular disorders Family history of coronary artery disease in mother Procedures CT CALCIUM SCORING SELF PAY UNLISTED COMPUTED TOMOGRAPHY PROCEDURE Eriberto Tovar MD [address] [place] [address] [address] [place] [address] Referral ID Status Reason Start Date Expiration Date Visits Requested Visits Authorized [id number] Authorized Auto-Generat ed Referral 07/09/2023 08/07/2024 1 1 Referral ID Status Reason Start Date Expiration Date V isits Requested Visits Authorized [id number] Closed Auto-Generate d Referral 07/09/2023 08/07/2024 1 1 Summary Purpose Family History No Family History Records FoundNo Family History Records Found No data available for this section No Family History Records FoundNo Family History Records FoundNo Family History Records Found No data available for this section Advance Directives No Advanced Directives Records FoundNo Advanced Directives Records FoundNo Advanced Directives Records FoundNo Advanced Directives Records FoundNo Advanced Directives Records Found Additional Source Comments Source Comments (unrecognize d section and content) In the event this informatio n is protected by the Federal Confidentiality of Alcohol and Drug Abuse Patient Records regulations: The Federal rules restrict any use of the information to criminally investigate or prosecute any alcohol or drug abuse patient.[facility] event this information is protected by the Federal Confidentiality of Alcohol and Drug Abuse Patient Records regulations: The Federal rules restrict any use of the information to criminally investigate or prosecute any alcohol or drug abuse patient.[facility] the event this information is protected by the Federal Confidentiality of Alcohol and Drug Abuse Patient Records regulations: The Federal rules restrict any use of the information to criminally investigate or prosecute any alcohol or drug abuse patient.[facility] the event this information is protected by the Federal Confidentiality of Alcohol and Drug Abuse Patient Records regulations: The Federal rules restrict any use of the information to criminally investigate or prosecute any alcohol or drug abuse patient.[facility] the event this information is protected by the Federal Confidentiality of Alcohol and Drug Abuse Patient Records regulations: The Federal rules restrict any use of the information to criminally investigate or prosecute any alcohol or drug abuse patient.[facility] the event this information is protected by the Federal Confidentiality of Alcohol and Drug Abuse Patient Records regulations: The Federal rules restrict any use of the information to criminally investigate or prosecute any alcohol or drug abuse patient.[facility] the event this information is protected by the Federal Confidentiality of Alcohol and Drug Abuse Patient Records regulations: The Federal rules restrict any use of the information to criminally investigate or prosecute any alcohol or drug abuse patient.[facility] the event this information is protected by the Federal Confidentiality of Alcohol and Drug Abuse Patient Records regulations: The Federal rules restrict any use of the information to criminally investigate or prosecute any alcohol or drug abuse patient.[facility] the event this information is protected by the Federal Confidentiality of Alcohol and Drug Abuse Patient Records regulations: The Federal rules restrict any use of the information to criminally investigate or prosecute any alcohol or drug abuse patient.[facility] the event this information is protected by the Federal Confidentiality of Alcohol and Drug Abuse Patient Records regulations: The Federal rules restrict any use of the information to criminally investigate or prosecute any alcohol or drug abuse patient.[facility] the event this information is protected by the Federal Confidentiality of Alcohol and Drug Abuse Patient Records regulations: The Federal rules restrict any use of the information to criminally investigate or prosecute any alcohol or drug abuse patient.[facility] the event this information is protected by the Federal Confidentiality of Alcohol and Drug Abuse Patient Records regulations: The Federal rules restrict any use of the information to criminally investigate or prosecute any alcohol or drug abuse patient.[facility] the event this information is protected by the Federal Confidentiality of Alcohol and Drug Abuse Patient Records regulations: The Federal rules restrict any use of the information to criminally investigate or prosecute any alcohol or drug abuse patient.[facility] the event this information is protected by the Federal Confidentiality of Alcohol and Drug Abuse Patient Records regulations: The Federal rules restrict any use of the information to criminally investigate or prosecute any alcohol or drug abuse patient.[facility] the event this information is protected by the Federal Confidentiality of Alcohol and Drug Abuse Patient Records regulations: The Federal rules restrict any use of the information to criminally investigate or prosecute any alcohol or drug abuse patient.[facility] the event this information is protected by the Federal Confidentiality of Alcohol and Drug Abuse Patient Records regulations: The Federal rules restrict any use of the information to criminally investigate or prosecute any alcohol or drug abuse patient.[facility] the event this information is protected by the Federal Confidentiality of Alcohol and Drug Abuse Patient Records regulations: The Federal rules restrict any use of the information to criminally investigate or prosecute any alcohol or drug abuse patient.[facility] the event this information is protected by the Federal Confidentiality of Alcohol and Drug Abuse Patient Records regulations: The Federal rules restrict any use of the information to criminally investigate or prosecute any alcohol or drug abuse patient.[facility] the event this information is protected by the Federal Confidentiality of Alcohol and Drug Abuse Patient Records regulations: The Federal rules restrict any use of the information to criminally investigate or prosecute any alcohol or drug abuse patient.[facility] the event this information is protected by the Federal Confidentiality of Alcohol and Drug Abuse Patient Records regulations: The Federal rules restrict any use of the information to criminally investigate or prosecute any alcohol or drug abuse patient.[facility] the event this information is protected by the Federal Confidentiality of Alcohol and Drug Abuse Patient Records regulations: The Federal rules restrict any use of the information to criminally investigate or prosecute any alcohol or drug abuse patient.[facility] the event this information is protected by the Federal Confidentiality of Alcohol and Drug Abuse Patient Records regulations: The Federal rules restrict any use of the information to criminally investigate or prosecute any alcohol or drug abuse patient.[facility] the event this information is protected by the Federal Confidentiality of Alcohol and Drug Abuse Patient Records regulations: The Federal rules restrict any use of the information to criminally investigate or prosecute any alcohol or drug abuse patient.[facility] the event this information is protected by the Federal Confidentiality of Alcohol and Drug Abuse Patient Records regulations: The Federal rules restrict any use of the information to criminally investigate or prosecute any alcohol or drug abuse patient.[facility] the event this information is protected by the Federal Confidentiality of Alcohol and Drug Abuse Patient Records regulations: The Federal rules restrict any use of the information to criminally investigate or prosecute any alcohol or drug abuse patient.[facility] the event this information is protected by the Federal Confidentiality of Alcohol and Drug Abuse Patient Records regulations: The Federal rules restrict any use of the information to criminally investigate or prosecute any alcohol or drug abuse patient.[facility] the event this information is protected by the Federal Confidentiality of Alcohol and Drug Abuse Patient Records regulations: The Federal rules restrict any use of the information to criminally investigate or prosecute any alcohol or drug abuse patient.[facility] the event this information is protected by the Federal Confidentiality of Alcohol and Drug Abuse Patient Records regulations: The Federal rules restrict any use of the information to criminally investigate or prosecute any alcohol or drug abuse patient.[facility] the event this information is protected by the Federal Confidentiality of Alcohol and Drug Abuse Patient Records regulations: The Federal rules restrict any use of the information to criminally investigate or prosecute any alcohol or drug abuse patient.[facility] the event this information is protected by the Federal Confidentiality of Alcohol and Drug Abuse Patient Records regulations: The Federal rules restrict any use of the information to criminally investigate or prosecute any alcohol or drug abuse patient.[facility] the event this information is protected by the Federal Confidentiality of Alcohol and Drug Abuse Patient Records regulations: The Federal rules restrict any use of the information to criminally investigate or prosecute any alcohol or drug abuse patient.[facility] the event this information is protected by the Federal Confidentiality of Alcohol and Drug Abuse Patient Records regulations: The Federal rules restrict any use of the information to criminally investigate or prosecute any alcohol or drug abuse patient.[facility] the event this information is protected by the Federal Confidentiality of Alcohol and Drug Abuse Patient Records regulations: The Federal rules restrict any use of the information to criminally investigate or prosecute any alcohol or drug abuse patient.[facility] the event this information is protected by the Federal Confidentiality of Alcohol and Drug Abuse Patient Records regulations: The Federal rules restrict any use of the information to criminally investigate or prosecute any alcohol or drug abuse patient.[facility]In the event this information is protected by the Federal Confidentiality of Alcohol and Drug Abuse Patient Records regulations: The Federal rules restrict any use of the information to criminally investigate or prosecute any alcohol or drug abuse patient.[facility] the event this information is protected by the Federal Confidentiality of Alcohol and Drug Abuse Patient Records regulations: The Federal rules restrict any use of the information to criminally investigate or prosecute any alcohol or drug abuse patient.[facility]In the event this information is protected by the Federal Confidentiality of Alcohol and Drug Abuse Patient Records regulations: The Federal rules restrict any use of the information to criminally investigate or prosecute any alcohol or drug abuse patient.[facility]In the event this information is protected by the Federal Confidentiality of Alcohol and Drug Abuse Patient Records regulations: The Federal rules restrict any use of the information to criminally investigate or prosecute any alcohol or drug abuse patient.[facility]In the event this information is protected by the Federal Confidentiality of Alcohol and Drug Abuse Patient Records regulations: The Federal rules restrict any use of the information to criminally investigate or prosecute any alcohol or drug abuse patient.[facility]In the event this information is protected by the Federal Confidentiality of Alcohol and Drug Abuse Patient Records regulations: The Federal rules restrict any use of the information to criminally investigate or prosecute any alcohol or drug abuse patient.[facility]In the event this information is protected by the Federal Confidentiality of Alcohol and Drug Abuse Patient Records regulations: The Federal rules restrict any use of the information to criminally investigate or prosecute any alcohol or drug abuse patient.[facility]In the event this information is protected by the Federal Confidentiality of Alcohol and Drug Abuse Patient Records regulations: The Federal rules restrict any use of the information to criminally investigate or prosecute any alcohol or drug abuse patient.[facility]In the event this information is protected by the Federal Confidentiality of Alcohol and Drug Abuse Patient Records regulations: The Federal rules restrict any use of the information to criminally investigate or prosecute any alcohol or drug abuse patient.[facility]In the event this information is protected by the Federal Confidentiality of Alcohol and Drug Abuse Patient Records regulations: The Federal rules restrict any use of the information to criminally investigate or prosecute any alcohol or drug abuse patient.[facility]In the event this information is protected by the Federal Confidentiality of Alcohol and Drug Abuse Patient Records regulations: The Federal rules restrict any use of the information to criminally investigate or prosecute any alcohol or drug abuse patient.[facility]In the event this information is protected by the Federal Confidentiality of Alcohol and Drug Abuse Patient Records regulations: The Federal rules restrict any use of the information to criminally investigate or prosecute any alcohol or drug abuse patient.[facility] CenterIn the event this information is protected by the Federal Confidentiality of Alcohol and Drug Abuse Patient Records regulations: The Federal rules restrict any use of the information to criminally investigate or prosecute any alcohol or drug abuse patient.[facility] CenterIn the event this information is protected by the Federal Confidentiality of Alcohol and Drug Abuse Patient Records regulations: The Federal rules restrict any use of the information to criminally investigate or prosecute any alcohol or drug abuse patient.[facility] CenterIn the event this information is protected by the Federal Confidentiality of Alcohol and Drug Abuse Patient Records regulations: The Federal rules restrict any use of the information to criminally investigate or prosecute any alcohol or drug abuse patient.[facility] CenterIn the event this information is protected by the Federal Confidentiality of Alcohol and Drug Abuse Patient Records regulations: The Federal rules restrict any use of the information to criminally investigate or prosecute any alcohol or drug abuse patient.[facility] CenterIn the event this information is protected by the Federal Confidentiality of Alcohol and Drug Abuse Patient Records regulations: The Federal rules restrict any use of the information to criminally investigate or prosecute any alcohol or drug abuse patient.[facility] CenterIn the event this information is protected by the Federal Confidentiality of Alcohol and Drug Abuse Patient Records regulations: The Federal rules restrict any use of the information to criminally investigate or prosecute any alcohol or drug abuse patient.[facility] CenterIn the event this information is protected by the Federal Confidentiality of Alcohol and Drug Abuse Patient Records regulations: The Federal rules restrict any use of the information to criminally investigate or prosecute any alcohol or drug abuse patient.[facility] CenterIn the event this information is protected by the Federal Confidentiality of Alcohol and Drug Abuse Patient Records regulations: The Federal rules restrict any use of the information to criminally investigate or prosecute any alcohol or drug abuse patient.[facility] CenterIn the event this information is protected by the Federal Confidentiality of Alcohol and Drug Abuse Patient Records regulations: The Federal rules restrict any use of the information to criminally investigate or prosecute any alcohol or drug abuse patient.[facility] CenterIn the event this information is protected by the Federal Confidentiality of Alcohol and Drug Abuse Patient Records regulations: The Federal rules restrict any use of the information to criminally investigate or prosecute any alcohol or drug abuse patient.[facility] CenterIn the event this information is protected by the Federal Confidentiality of Alcohol and Drug Abuse Patient Records regulations: The Federal rules restrict any use of the information to criminally investigate or prosecute any alcohol or drug abuse patient.[facility] CenterIn the event this information is protected by the Federal Confidentiality of Alcohol and Drug Abuse Patient Records regulations: The Federal rules restrict any use of the information to criminally investigate or prosecute any alcohol or drug abuse patient.[facility] CenterIn the event this information is protected by the Federal Confidentiality of Alcohol and Drug Abuse Patient Records regulations: The Federal rules restrict any use of the information to criminally investigate or prosecute any alcohol or drug abuse patient.[facility] CenterIn the event this information is protected by the Federal Confidentiality of Alcohol and Drug Abuse Patient Records regulations: The Federal rules restrict any use of the information to criminally investigate or prosecute any alcohol or drug abuse patient.[facility] CenterIn the event this information is protected by the Federal Confidentiality of Alcohol and Drug Abuse Patient Records regulations: The Federal rules restrict any use of the information to criminally investigate or prosecute any alcohol or drug abuse patient.[facility] CenterIn the event this information is protected by the Federal Confidentiality of Alcohol and Drug Abuse Patient Records regulations: The Federal rules restrict any use of the information to criminally investigate or prosecute any alcohol or drug abuse patient.[facility] CenterIn the event this information is protected by the Federal Confidentiality of Alcohol and Drug Abuse Patient Records regulations: The Federal rules restrict any use of the information to criminally investigate or prosecute any alcohol or drug abuse patient.[facility] CenterIn the event this information is protected by the Federal Confidentiality of Alcohol and Drug Abuse Patient Records regulations: The Federal rules restrict any use of the information to criminally investigate or prosecute any alcohol or drug abuse patient.[facility] CenterIn the event this information is protected by the Federal Confidentiality of Alcohol and Drug Abuse Patient Records regulations: The Federal rules restrict any use of the information to criminally investigate or prosecute any alcohol or drug abuse patient.[facility] CenterIn the event this information is protected by the Federal Confidentiality of Alcohol and Drug Abuse Patient Records regulations: The Federal rules restrict any use of the information to criminally investigate or prosecute any alcohol or drug abuse patient.[facility] CenterIn the event this information is protected by the Federal Confidentiality of Alcohol and Drug Abuse Patient Records regulations: The Federal rules restrict any use of the information to criminally investigate or prosecute any alcohol or drug abuse patient.[facility] CenterIn the event this information is protected by the Federal Confidentiality of Alcohol and Drug Abuse Patient Records regulations: The Federal rules restrict any use of the information to criminally investigate or prosecute any alcohol or drug abuse patient.[facility] CenterIn the event this information is protected by the Federal Confidentiality of Alcohol and Drug Abuse Patient Records regulations: The Federal rules restrict any use of the information to criminally investigate or prosecute any alcohol or drug abuse patient.[facility] CenterIn the event this information is protected by the Federal Confidentiality of Alcohol and Drug Abuse Patient Records regulations: The Federal rules restrict any use of the information to criminally investigate or prosecute any alcohol or drug abuse patient.[facility] CenterIn the event this information is protected by the Federal Confidentiality of Alcohol and Drug Abuse Patient Records regulations: The Federal rules restrict any use of the information to criminally investigate or prosecute any alcohol or drug abuse patient.[facility] CenterIn the event this information is protected by the Federal Confidentiality of Alcohol and Drug Abuse Patient Records regulations: The Federal rules restrict any use of the information to criminally investigate or prosecute any alcohol or drug abuse patient.[facility] CenterIn the event this information is protected by the Federal Confidentiality of Alcohol and Drug Abuse Patient Records regulations: The Federal rules restrict any use of the information to criminally investigate or prosecute any alcohol or drug abuse patient.[facility] CenterIn the event this information is protected by the Federal Confidentiality of Alcohol and Drug Abuse Patient Records regulations: The Federal rules restrict any use of the information to criminally investigate or prosecute any alcohol or drug abuse patient.[facility] CenterIn the event this information is protected by the Federal Confidentiality of Alcohol and Drug Abuse Patient Records regulations: The Federal rules restrict any use of the information to criminally investigate or prosecute any alcohol or drug abuse patient.[facility] CenterIn the event this information is protected by the Federal Confidentiality of Alcohol and Drug Abuse Patient Records regulations: The Federal rules restrict any use of the information to criminally investigate or prosecute any alcohol or drug abuse patient.[facility] CenterIn the event this information is protected by the Federal Confidentiality of Alcohol and Drug Abuse Patient Records regulations: The Federal rules restrict any use of the information to criminally investigate or prosecute any alcohol or drug abuse patient.[facility] CenterIn the event this information is protected by the Federal Confidentiality of Alcohol and Drug Abuse Patient Records regulations: The Federal rules restrict any use of the information to criminally investigate or prosecute any alcohol or drug abuse patient.[facility] CenterIn the event this information is protected by the Federal Confidentiality of Alcohol and Drug Abuse Patient Records regulations: The Federal rules restrict any use of the information to criminally investigate or prosecute any alcohol or drug abuse patient.[facility] CenterIn the event this information is protected by the Federal Confidentiality of Alcohol and Drug Abuse Patient Records regulations: The Federal rules restrict any use of the information to criminally investigate or prosecute any alcohol or drug abuse patient.[facility] CenterIn the event this information is protected by the Federal Confidentiality of Alcohol and Drug Abuse Patient Records regulations: The Federal rules restrict any use of the information to criminally investigate or prosecute any alcohol or drug abuse patient.[facility] CenterIn the event this information is protected by the Federal Confidentiality of Alcohol and Drug Abuse Patient Records regulations: The Federal rules restrict any use of the information to criminally investigate or prosecute any alcohol or drug abuse patient.[facility] CenterIn the event this information is protected by the Federal Confidentiality of Alcohol and Drug Abuse Patient Records regulations: The Federal rules restrict any use of the information to criminally investigate or prosecute any alcohol or drug abuse patient.[facility] CenterIn the event this information is protected by the Federal Confidentiality of Alcohol and Drug Abuse Patient Records regulations: The Federal rules restrict any use of the information to criminally investigate or prosecute any alcohol or drug abuse patient.[facility] CenterIn the event this information is protected by the Federal Confidentiality of Alcohol and Drug Abuse Patient Records regulations: The Federal rules restrict any use of the information to criminally investigate or prosecute any alcohol or drug abuse patient.[facility] CenterIn the event this information is protected by the Federal Confidentiality of Alcohol and Drug Abuse Patient Records regulations: The Federal rules restrict any use of the information to criminally investigate or prosecute any alcohol or drug abuse patient.[facility] CenterIn the event this information is protected by the Federal Confidentiality of Alcohol and Drug Abuse Patient Records regulations: The Federal rules restrict any use of the information to criminally investigate or prosecute any alcohol or drug abuse patient.[facility] Reason for Visit (unrecogniz ed section and content) Reason Comments Pain, Sinus sinus pain and press ure x 1 week Reason Onset Date Comments Refill Request 07/26/2021 Reason Comments Covid19 Concern Reason Onset Date Comments Refill Request 08/12/2021 Reason Comments COVID concerns Reason Comments Patient Update Reason Comments Cough cough, SOB, stomacha brittney and fever -post COVID 08/24 Reason Comments Yearly Exam Reason Comments Sore Throat cough, fever, REICH x 5 days Reason Comments Cough Cough, chest congest ion, ST, ear pain, fever and chills x 2 days Reason Comments Headache Pain rated 8, throat pain x6 days + Covid 01/01/22. Reason Onset Date Comments Refill Request 02/11/2022 Reason Comments Sinus Problem With headache x 10 d ays, sore throat x 4 days Reason Comments Results Reason Comments Sore Throat ST, fever and REICH x 1 day Reason Comments Refill Request Please send today, p atient is in need of this Reason Comments Urinary Frequency Frequency, burning a nd urgency x 6 days Reason Comments UTI Frequency, burning, and pain x 2 days Reason Onset Date Comments Refill Request 11/04/2022 Reason Comments Handicap placard Reason Comments UTI Burning and urgency x today Reason Comments Patient Question Reason Comments Results Urine Cx mixed. Reason Comments Consult Reason Comments faxed referral to outside Reason Comments Pain Specialty Diagnoses / Procedures Referred By Contac t Referred To Contact Sports Medicine Diagnoses Pain in both knees, unspecified chronicity Richy Dominguez, BODY TEAM MEMBER [address] [place] [address] Vania Rodas, BODY TEAM MEMBER [address] [place] [address] Referral ID Status Reason Start Date Expiration Date Visits Re quested Visits Authorized [id number] Closed 06/04/2023 06/03/2024 1 1 Reason Comments F/U 6 months Specialty Diagnoses / Procedures Referred By Contac t Referred To Contact CT IMAGING Diagnoses Elevated LDL cholesterol level Encounter for screening for cardiovascular disorders Family history of coronary artery disease in mother Procedures CT CALCIUM SCORING SELF PAY UNLISTED COMPUTED TOMOGRAPHY PROCEDURE Eriberto Tovar MD [address] [place] [address] [place] [address] Referral ID Status Reason Start Date Expiration Date V isits Requested Visits Authorized [id number] Closed Auto-Generate d Referral 07/09/2023 08/07/2024 1 1 Reason Onset Date Comments Refill Request 09/01/2023 Reason Comments Pre-Op Exam Reason Comments PAP Therapy Follow Up Reason Comments Patient Update Medication Question Reason Comments Same Day Appointment Discuss pain medica tion while off diclofenac for surgery Reason Onset Date Comments Refill Request 01/07/2024 Reason Comments medication question Reason Comments Follow Up Reason Comments Follow Up Problems with LS Reason Comments Weight Loss and states feeling h ot all the time Reason Comments F/U 6 months Reason Onset Date Comments Refill Request 04/06/2024 Reason Onset Date Comments Refill Request 05/09/2024 Reason Onset Date Comments Refill Request 06/05/2024 Reason Comments Medical Clearance Reason Comments Sore Throat ST and REICH x 2 days Reason Comments Pre-Surgical Clearance Form Reason Comments [facility] requesting records Reason Comments Follow Up Reason Comments Faxed to [facility] Reason Comments Orders Reason Comments URI headache and body ac hes and fever off and on started 4 days ago Reason Comments Recheck Reason Comments Hospital F/U Reason Comments F/U 6 Month Reason Comments Forms Care Teams (unrecognized sec tion and content) Care Team Personnel Name: ERIBERTO TOVAR MD Member Role: Primary Care Physician Address: [address] [place] [id number] [place] [employer]: Care Team Related Persons Name: JONE LANDAVERDE Lacrosse Coach Relationship Specialty Start Date End Date Eriberto Tovar MD [address] [place], [place] [address] PCP - General Internal Medicine 08/21/10 Lacrosse Coach Relationship Specialty Start Date End Date Eriberto Tovar MD [address] [place] [address] PCP - General Internal Medicine 08/21/10 Lacrosse Coach Relationship Specialty Start Date End Date Eriberto Tovar MD [address] [place], [place] [address] PCP - General Internal Medicine 08/21/10 Lacrosse Coach Relationship Specialty Start Date End Date Eriberto Tovar MD [address] [place], [place] [address] PCP - General Internal Medicine 08/21/10 Lacrosse Coach Relationship Specialty Start Date End Date Eriberto Tovar MD [facility] [place] [address] PCP - General Internal Medicine 08/21/10 Lacrosse Coach Relationship Specialty Start Date End Date Eriberto Tovar MD [facility] [place] [address] PCP - General Internal Medicine 08/21/10 Lacrosse Coach Relationship Specialty Start Date End Date Eriberto Tovar MD [address] [place] [address], [place] [address] PCP - General Internal Medicine 08/21/10 Lacrosse Coach Relationship Specialty Start Date End Date Eriberto Tovar MD [address] [place] [address], [place] [address] PCP - General Internal Medicine 08/21/10 Lacrosse Coach Relationship Specialty Start Date End Date Eriberto Tovar MD [address] [place] [address], [place] [address] PCP - General Internal Medicine 08/21/10 Lacrosse Coach Relationship Specialty Start Date End Date Eriberto Tovar MD [address] [place] [address], [place] [address] PCP - General Internal Medicine 08/21/10 Lacrosse Coach Relationship Specialty Start Date End Date Eriberto Tovar MD [address] [place] [address], [place] [address] PCP - General Internal Medicine 08/21/10 Lacrosse Coach Relationship Specialty Start Date End Date Eriberto Tovar MD [address] [place] [address], [place] [address] PCP - General Internal Medicine 08/21/10 Lacrosse Coach Relationship Specialty Start Date End Date Eriberto Tovar MD [address] [place] [address], [place] [address] PCP - General Internal Medicine 08/21/10 Lacrosse Coach Relationship Specialty Start Date End Date Eriberto Tovar MD [address] [facility] [place] [address] PCP - General Internal Medicine 08/21/10 Lacrosse Coach Relationship Specialty Start Date End Date Eriberto Tovar MD [address] [facility] [place] [address] PCP - General Internal Medicine 08/21/10 Lacrosse Coach Relationship Specialty Start Date End Date Eriberto Tovar MD [address] [facility] [place] [address] PCP - General Internal Medicine 08/21/10 Lacrosse Coach Relationship Specialty Start Date End Date Eriberto Tovar MD [address] [facility] [place] [address] PCP - General Internal Medicine 08/21/10 Lacrosse Coach Relationship Specialty Start Date End Date Eriberto Tovar MD [address] [facility] [place] [address] PCP - General Internal Medicine 08/21/10 Lacrosse Coach Relationship Specialty Start Date End Date Eriberto Tovar MD [address] [facility] [place] [address] PCP - General Internal Medicine 08/21/10 Lacrosse Coach Relationship Specialty Start Date End Date Eriberto Tovar MD [address] [facility] [place] [address] PCP - General Internal Medicine 08/21/10 Lacrosse Coach Relationship Specialty Start Date End Date Eriberto Tovar MD [address] [facility] [place] [address] PCP - General Internal Medicine 08/21/10 Lacrosse Coach Relationship Specialty Start Date End Date Eriberto Tovar MD [address] [place] [address] PCP - General Internal Medicine 06/14/23 Lacrosse Coach Relationship Specialty Start Date End Date Eriberto Tovar MD [address] [place] [address] PCP - General Internal Medicine 08/21/10 Lacrosse Coach Relationship Specialty Start Date End Date Eriberto Tovar MD [address] [place] [address] PCP - General Internal Medicine 08/21/10 Lacrosse Coach Relationship Specialty Start Date End Date Eriberto Tovar MD [address] [place] [address] PCP - General Internal Medicine 08/21/10 Lacrosse Coach Relationship Specialty Start Date End Date Eriberto Tovar MD [address] [place] [address] PCP - General Internal Medicine 08/21/10 Lacrosse Coach Relationship Specialty Start Date End Date Eriberto Tovar MD [address] [place] [address] PCP - General Internal Medicine 08/21/10 Lacrosse Coach Relationship Specialty Start Date End Date Eriberto Tovar MD [address] [place] [address] PCP - General Internal Medicine 08/21/10 Lacrosse Coach Relationship Specialty Start Date End Date Eriberto Tovar MD [address] [place] [address] PCP - General Internal Medicine 08/21/10 Lacrosse Coach Relationship Specialty Start Date End Date Eriberto Tovar MD [address] [place] [address] PCP - General Internal Medicine 08/21/10 Lacrosse Coach Relationship Specialty Start Date End Date Eriberto Tovar MD [address] [place] [address] PCP - General Internal Medicine 08/21/10 Lacrosse Coach Relationship Specialty Start Date End Date Eriberto Tovar MD [address] [place] [address] PCP - General Internal Medicine 08/21/10 Lacrosse Coach Relationship Specialty Start Date End Date Eriberto Tovar MD [address] [place] [address] PCP - General Internal Medicine 08/21/10 Lacrosse Coach Relationship Specialty Start Date End Date Eriberto Tovar MD [address] [place] [address] PCP - General Internal Medicine 08/21/10 Lacrosse Coach Relationship Specialty Start Date End Date Eriberto Tovar MD [address] [place] [address] PCP - General Internal Medicine 08/21/10 Lacrosse Coach Relationship Specialty Start Date End Date Eriberto Tovar MD [address] [place] [address] PCP - General Internal Medicine 08/21/10 Lacrosse Coach Relationship Specialty Start Date End Date Eriberto Tovar MD [address] [place] [address] PCP - General Internal Medicine 08/21/10 Sanjay Yates, COCOA ROOM OPERATOR.OPERATOR HELPER [address] [place] [address] [employer] [facility] Internal Medicine 03/13/24 Richy Dominguez, COCOA ROOM OPERATOR.BODY TEAM MEMBER [address] [place] [address] [employer] Internal Medicine 03/13/24 Lacrosse Coach Relationship Specialty Start Date End Date Eriberto Tovar MD [address] [place] [address] PCP - General Internal Medicine 08/21/10 Sanjay Yates, COCOA ROOM OPERATOR.OPERATOR HELPER [address] [place] [address] [employer] Internal Medicine 03/13/24 Richy Dominguez COCOA ROOM OPERATOR.BODY TEAM MEMBER [address] [place] [address] [employer] Internal Medicine 03/13/24 Lacrosse Coach Relationship Specialty Start Date End Date Eriberto Tovar MD [address] [place] [address] PCP - General Internal Medicine 08/21/10 Sanjay Yates, COCOA ROOM OPERATOR.OPERATOR HELPER [address] [place] [address] [employer] Internal Medicine 03/13/24 Richy Dominguez APRN.BODY TEAM MEMBER [address] [place] [address] [facility] Internal Medicine 03/13/24 Lacrosse Coach Relationship Specialty Start Date End Date Eriberto Tovar MD [address] [place] [address] PCP - General Internal Medicine 08/21/10 Sanjay Yates, COCOA ROOM OPERATOR.OPERATOR HELPER [address] [place] [address] [facility] Internal Medicine 03/13/24 Richy Dominguez COCOA ROOM OPERATOR.BODY TEAM MEMBER [facility] [place] [address] [facility] Internal Medicine 03/13/24 Lacrosse Coach Relationship Specialty Start Date End Date Eriberto Tovar MD [address] [place] [address] PCP - General Internal Medicine 08/21/10 Sanjay Yates, COCOA ROOM OPERATOR.OPERATOR HELPER [address] [place] [address] [facility] Internal Medicine 03/13/24 Richy Dominguez COCOA ROOM OPERATOR.BODY TEAM MEMBER [address] [place] [address] [facility] Internal Medicine 03/13/24 Lacrosse Coach Relationship Specialty Start Date End Date Eriberto Tovar MD [address] [place] [address] PCP - General Internal Medicine 08/21/10 Sanjay Yates, COCOA ROOM OPERATOR.OPERATOR HELPER [address] [facility] [place] [address] [employer] Internal Medicine 03/13/24 Richy Dominguez COCOA ROOM OPERATOR.BODY TEAM MEMBER [address] [place] [address] [employer] Internal Medicine 03/13/24 Lacrosse Coach Relationship Specialty Start Date End Date Eriberto Tovar MD [address] [facility] [place] [address] PCP - General Internal Medicine 08/21/10 Sanjay Yates, COCOA ROOM OPERATOR.OPERATOR HELPER [address] [facility] [place] [address] [employer] Internal Medicine 03/13/24 Richy Dominguez COCOA ROOM OPERATOR.BODY TEAM MEMBER [address] [facility] [place] [address] [employer] Internal Medicine 03/13/24 Lacrosse Coach Relationship Specialty Start Date End Date Eriberto Tovar MD [address] [place] [address] PCP - General Internal Medicine 08/21/10 Sanjay Yates, COCOA ROOM OPERATOR.OPERATOR HELPER [address] [facility] [facility] [place] [place] [address] [facility] Ste[facility]ess Internal Medicine 03/13/24 Richy Dominguez COCOA ROOM OPERATOR.BODY TEAM MEMBER [address] [facility] [place] [address] [facility] Internal Medicine 03/13/24 Lacrosse Coach Relationship Specialty Start Date End Date Eriberto Tovar MD [address] [place] [address] PCP - General Internal Medicine 08/21/10 Sanjay Yates, CARLOS.OPERATOR HELPER [address] [place] [address] [facility] Internal Medicine 03/13/24 Richy Dominguez APRN.BODY TEAM MEMBER [address] [place] [address] [facility] Internal Medicine 03/13/24 06/23/24 Lacrosse Coach Relationship Specialty Start Date End Date Eriberto Tovar MD [address] [place] [address] PCP - General Internal Medicine 08/21/10 Sanjay Yates, COCOA ROOM OPERATOR.OPERATOR HELPER [address] [place] [address] [facility] Internal Medicine 03/13/24 Richy Dominguez APRN.BODY TEAM MEMBER [address] [place] [address] [facility] Internal Medicine 06/27/24 Lacrosse Coach Relationship Specialty Start Date End Date Eriberto Tovar MD [address] [place] [address] PCP - General Internal Medicine 08/21/10 Sanjay Yates APRN.OPERATOR HELPER [address] [place] [address] [facility] Internal Medicine 03/13/24 Richy Dominguez APRN.BODY TEAM MEMBER [address] [facility] [place] [address] [facility] Internal Medicine 06/27/24 Lacrosse Coach Relationship Specialty Start Date End Date Eriberto Tovar MD [address] [place] [address] PCP - General Internal Medicine 08/21/10 Sanjay Yates, COCOA ROOM OPERATOR.OPERATOR HELPER [address] [facility] [place] [address] Banquet Stewardess Internal Medicine 03/13/24 Richy Dominguez COCOA ROOM OPERATOR.BODY TEAM MEMBER [address] [facility] [place] [address] [facility] Internal Medicine 06/27/24 Lacrosse Coach Relationship Specialty Start Date End Date Eriberto Tovar MD [address] [place] [address] PCP - General Internal Medicine 08/21/10 Sanjay Yates, COCOA ROOM OPERATOR.OPERATOR HELPER [address] [place] [address] [employer] Ste[facility]ess Internal Medicine 03/13/24 Richy Dominguez, COCOA ROOM OPERATOR.BODY TEAM MEMBER [address] [facility] [place] [address] [facility] Internal Medicine 06/27/24 Lacrosse Coach Relationship Specialty Start Date End Date Eriberto Tovar MD [address] [facility] [place] [address] PCP - General Internal Medicine 08/21/10 Sanjay Yates, COCOA ROOM OPERATOR.OPERATOR HELPER [address] [place] [address] [employer] [facility] Internal Medicine 03/13/24 Richy Dominguez, COCOA ROOM OPERATOR.BODY TEAM MEMBER [address] [facility] [place] [address] [facility] Internal Medicine 06/27/24 Lacrosse Coach Relationship Specialty Start Date End Date Eriberto Tovar MD [address] [facility] [place] [address] PCP - General Internal Medicine 08/21/10 Sanjay Yates, COCOA ROOM OPERATOR.OPERATOR HELPER [address] [place] [address] [facility] Internal Medicine 03/13/24 Richy Dominguez COCOA ROOM OPERATOR.BODY TEAM MEMBER [address] [place] [address] [facility] Internal Medicine 06/27/24 Lacrosse Coach Relationship Specialty Start Date End Date Eriberto Tovar MD [address] [place] [address] PCP - General Internal Medicine 08/21/10 Sanjay Yates, COCOA ROOM OPERATOR.OPERATOR HELPER [address] [place] [address] [facility] Internal Medicine 03/13/24 Richy Dominguez COCOA ROOM OPERATOR.BODY TEAM MEMBER [address] [place] [address] [facility] Internal Medicine 06/27/24 Lacrosse Coach Relationship Specialty Start Date End Date Eriberto Tovar MD [address] [place] [address] PCP - General Internal Medicine 08/21/10 Sanjay Yates, COCOA ROOM OPERATOR.OPERATOR HELPER [address] [facility] [place] [address] [facility] Internal Medicine 03/13/24 Richy Dominguez COCOA ROOM OPERATOR.BODY TEAM MEMBER [address] [facility] [place] [address] [facility] Internal Medicine 06/27/24 Lacrosse Coach Relationship Specialty Start Date End Date Eriberto Tovar MD [address] [facility] [place] [address] PCP - General Internal Medicine 08/21/10 Sanjay Yates, COCOA ROOM OPERATOR.OPERATOR HELPER [address] [facility] [place] [address] [facility] Internal Medicine 03/13/24 Richy Dominguez COCOA ROOM OPERATOR.BODY TEAM MEMBER [address] [facility] [place] [address] [facility] Internal Medicine 06/27/24 Lacrosse Coach Relationship Specialty Start Date End Date Eriberto Tovar MD [address] [facility] [place] [address] PCP - General Internal Medicine 08/21/10 Sanjay Yates, COCOA ROOM OPERATOR.OPERATOR HELPER [address] [facility] [place] [address] [facility] Internal Medicine 03/13/24 Richy Dominguez APRN.BODY TEAM MEMBER [address] [facility] [place] [address] [facility] Internal Medicine 06/27/24 Lacrosse Coach Relationship Specialty Start Date End Date Eriberto Tovar MD [address] [place] [address] PCP - General Internal Medicine 08/21/10 Sanjay Yates APRN.OPERATOR HELPER [address] [place] [address] [facility] Internal Medicine 03/13/24 Richy Dominguez APRN.BODY TEAM MEMBER [address] [facility] [place] [address] [facility] Internal Medicine 06/27/24 Lacrosse Coach Relationship Specialty Start Date End Date Eriberto Tovar MD [address] [place] [address] PCP - General Internal Medicine 08/21/10 Richy Dominguez APRN.BODY TEAM MEMBER [address] [facility] [place] [address] [facility] Internal Medicine 06/27/24 Sanjay Yates APRN.OPERATOR HELPER [address] [place] [address] [facility] Internal Medicine 08/23/24 Lacrosse Coach Relationship Specialty Start Date End Date Eriberto Tovar MD [address] [place] [address] PCP - General Internal Medicine 08/21/10 Sanjay Yates APRN.OPERATOR HELPER [address] [facility] [place] [address] [facility] Internal Medicine 03/13/24 08/22/24 Richy Dominguez APRN.BODY TEAM MEMBER [address] [facility] [place] [address] [facility] Internal Medicine 06/27/24 Sanjay Yates, COCOA ROOM OPERATOR.OPERATOR HELPER [address] [place] [address] [facility] Internal Medicine 08/23/24 Lacrosse Coach Relationship Specialty Start Date End Date Eriberto Tovar MD [address] [place] [address] PCP - General Internal Medicine 08/21/10 Richy Dominguez COCOA ROOM OPERATOR.BODY TEAM MEMBER [address] [place] [address] [facility] Internal Medicine 06/27/24 Sanjay Yates, COCOA ROOM OPERATOR.OPERATOR HELPER [address] [place] [address] [facility] Internal Medicine 08/23/24 Lacrosse Coach Relationship Specialty Start Date End Date Eriberto Tovar MD [address] [place] [address] PCP - General Internal Medicine 08/21/10 Sanjay Yates, COCOA ROOM OPERATOR.OPERATOR HELPER [address] [place] [address] [facility] Internal Medicine 03/13/24 08/22/24 Richy Dominguez COCOA ROOM OPERATOR.BODY TEAM MEMBER [address] [place] [address] [facility] Internal Medicine 06/27/24 Sanjay Yates, COCOA ROOM OPERATOR.OPERATOR HELPER [address] [place] [address] [facility] Internal Medicine 08/23/24 Lacrosse Coach Relationship Specialty Start Date End Date Eriberto Tovar MD [address] [place], [place] [address] PCP - General Internal Medicine 08/21/10 Richy Dominguez COCOA ROOM OPERATOR.BODY TEAM MEMBER [address] [place] [address] [facility] Internal Medicine 06/27/24 Sanjay Yates, COCOA ROOM OPERATOR.OPERATOR HELPER [address] [place] [address] [facility] Internal Medicine 08/23/24 Lacrosse Coach Relationship Specialty Start Date End Date Eriberto Tovar MD [address] [place] [address] PCP - General Internal Medicine 08/21/10 Richy Dominguez COCOA ROOM OPERATOR.BODY TEAM MEMBER [address] [place] [address] [facility] Internal Medicine 06/27/24 Sanjay Yates, COCOA ROOM OPERATOR.OPERATOR HELPER [address] [place] [address] [facility] Internal Medicine 08/23/24 INFORMATION SOURCE (unrecogn ized section and content) DATE CREATED AUTHOR 06/19/2023 [facility] DATE CREATED AUTHOR AUTHOR'S ORGANIZ ATION 07/31/2023 [facility] DATE CREATED AUTHOR AUTHOR'S ORGANIZ ATION 11/04/2024 [facility] DATE CREATED AUTHOR AUTHOR'S ORGANIZ ATION 11/05/2024 [facility] DATE CREATED AUTHOR AUTHOR'S ORGANIZ ATION 11/09/[address] [facility] FOR RECORDS PERTAINING TO PATIENTS WHO ARE OR HAVE BEEN ENROLLED IN A CHEMICAL DEPENDENCY/SUBSTANCEABUSE PROGRAM, SOME INFORMATION MAY BE OMITTED. This clinical summary was aggregated from multiple sources. Caution should be exercised in using it in the provision of clinical care. This summary normalizes information from multiple sources, and as a consequence, information in this document may materially change the coding, format and clinical context of patient data. In addition, data may be omitted in some cases. CLINICAL DECISIONS SHOULD BE BASED ON THE PRIMARY CLINICAL RECORDS. [facility] provides no warranty or guarantee of the accuracy or completeness of information in this document.
--- NOTE | 2024-11-11 18:32 | EDS_ITS ---
HPI History of Present Illness Chief Complaint: Lower Extremity Injury Narrative Narrative: Patient is a 68-year-old female presenting emergency department for concern of cellulitis of her right leg. Patient recently had a right total knee replacement by Dr. Shah on Wednesday, 4 days ago. States that she has been recovering well. Denies any fever or chills. States that her daughter noticed some redness behind her right thigh today and recommended that she come to the ED. patient states that is warm to the touch. She denies any history of DVT or PE. States that the knee itself is not more painful than it has been. [facility] Medical History Encounter for pre-operative cardiovascular clearance Abnormal EKG SOB (shortness of breath) Other hammer toe(s) (acquired), left foot Degenerative spondylolisthesis Left knee DJD Right knee DJD Fibromyalgia CFIDS (chronic fatigue and immune dysfunction syndrome) MRSA (methicillin resistant Staphylococcus aureus) colonization Low iron History of IBS Depression Anxiety Arthritis High cholesterol Back pain Injury of back Injury of head and neck CPAP (continuous positive airway pressure) dependence Hypertension Home Medications ?Medication ?Instructions ?Recorded ?Last Taken ?Type diclofenac sodium 100 mg 75 mg PO BID NSAID 11/19/16 08/23/24 History tablet,extended release 24 hr venlafaxine 150 mg tablet,extended 150 mg PO BID Antid epressant 11/19/16 08/23/24 History release 24 hr antiarthritic combination no.2 900 900 mg PO BID Antia rthritis 12/02/20 08/23/24 History mg tablet (glucosamine-chondroitin) cholecalciferol (vitamin D3) 50 50 mcg PO DAILY Supple ment 12/02/20 08/23/24 History mcg (2,000 unit) capsule ferrous gluconate 324 mg (37.5 mg 324 mg PO DAILY Iron Supplement 12/02/20 08/23/24 History iron) tablet fluticasone propionate 50 1 spray intranasal DAILY All ergies 12/02/20 08/23/24 History mcg/actuation nasal spray,suspension (Flonase Allergy Relief) folic acid 400 mcg tablet 0.4 mg PO DAILY Supplement 0 12/02/20 08/23/24 History gabapentin 400 mg capsule 400 mg PO 4X/DAY Neuropathy 12/02/20 08/23/24 History magnesium citrate 100 mg capsule 100 mg PO DAILY Suppl ement 12/02/20 08/23/24 History melatonin 10 mg capsule 10 mg PO QHS PRN PRN sleep 0 12/02/20 08/22/24 History vitamin E mixed 400 unit capsule 400 unit PO DAILY Sup plement 12/02/20 08/23/24 History lisinopril 10 mg tablet 10 mg PO DAILY Blood pressur e 08/13/21 08/23/24 History calcium carbonate 600 mg PO QHS Supplement 08/23/24 History clobetasol 0.05 % topical ointment 1 applic topical .w eekly swelling 09/24/23 08/17/24 History rosuvastatin 5 mg tablet 5 mg PO QHS Cholesterol pill 09/24/23 08/22/24 History turmeric 400 mg capsule 400 mg PO DAILY Supplement 0 09/24/23 08/23/24 History ascorbic acid (vitamin C) 1,000 mg 1,000 mg PO DAILY S upplement 06/21/24 08/23/24 History tablet,extended release (C Complex) aspirin 81 mg capsule 81 mg PO DAILY Antiplatelet 06/21/24 08/23/24 History hydrocodone-acetaminophen 5-325mg 1 tab PO Q6H PRN debo n 5 days #20 08/24/24 Unknown Rx 5mg-325mg tabs Allergy/AdvReac Type Severity Reaction Status Date / Time Sulfa (Sulfonamide Allergy Hives Verified 11/11/24 17:41 Antibiotics) Family History Mother Heart disease Surgical History S/P cervical spinal fusion History of toe surgery Hx of left cataract extraction Hx of right cataract extraction Hx of spinal surgery Hx of thumb surgery History of bunionectomy of right great toe Hx of ovarian cystectomy Hx of cervical spine surgery Hx of hand surgery History of bunionectomy of left great toe History of bunionectomy of left great toe Social History household members: spouse Smoking Status: Never smoker ROS ROS ED ROS Narrative see HPI EXAM Physical Exam Narrative Exam Narrative: Vital signs: Reviewed General: Alert and oriented. No acute distress HEENT: Head is normocephalic and atraumatic, sinuses nontender, pupils equal round and reactive. Nares are patent. Oropharynx and throat exams normal. Neck: Supple without lymphadenopathy nontender Cardiovascular: Regular rate and rhythm, no murmurs. No rubs or gallops. Normal S1 and S2 Respiratory: Clear to auscultation bilaterally. No wheezes, rales, rhonchi Abdominal: Soft and tender. Normal bowel sounds. No guarding or rebound. Nonsurgical abdomen Extremities: Anterior incision site is healing appropriately. There is no purulent drainage from the area. No significant erythema or warmth surrounding the site. Patient is able to flex and extend the knee without significant pain, there is pain that is to be expected postop. There is ecchymosis tracking up from the medial knee and thigh. This is mildly warm to the touch. There is no fluctuance. Skin: No rash or redness. Neurological: Cranial nerves II through XII are grossly intact. Normal strength and sensation. Normal cerebellar function The rest of the physical exam is unremarkable Const Vital Signs: 11/11/24 17:37 11/11/24 20:00 11/11/24 20:00 Temperature 98.4 F 98.4 F Temperature Source Oral Pulse Rate 89 80 89 Respiratory Rate 16 16 Blood Pressure 106/56 L 119/55 L 106/56 L Blood Pressure Mean 72 76 72 Pulse Ox 96 100 96 Oxygen Delivery Method Room Air MDM MDM MDM Narrative Medical decision making narrative: Patient is a 60-year-old female presenting to the emergency department for concern of possible cellulitis. She was seen and examined. Vitals are stable. Patient resting bed comfortably no acute distress. She has no calf swelling or pain to be concerned about a DVT. Given this is a postop patient I did speak to on-call orthopedics, Dr. Irene who routed me to speak with the surgeon of her surgery Dr. Shah. He recommended CBC, BMP, ESR and CRP. He is came back with significant elevation of the CRP at 298 and ESR of 80. Leukocytosis of 12.3. He did ask that I complete an arthrocentesis to rule out septic joint. This was performed under sterile technique. Knee was placed in slight flexion. Chlorohexidine used. Lidocaine 1% without epi was used to make a skin wheal and then inserted deeper to numb the tract. A 18-gauge 1-2 inch needle was then used to enter at a medial approach which drained about 20 cc of blood fluid. Bandaid was placed on the insertion site. Specimen was sent for analysis. I spoke with Dr. Shah again who will follow-up with her on Wednesday. He stated th at the skin changes were normal ecchymosis changes and this is likely a hemarthrosis postsurgical. Patient and family at bedside were updated on the lab findings and the plan. They do feel comfortable. She was given very strict return precautions if she develops any fever, chills, worsening pain, worsening redness of the leg. Lab Data Labs: Laboratory Results - last 24 hr 11/11/24 11/11/24 18:50 20:32 WBC 12.3 H RBC 3.48 L Hgb 8.4 L Hct 26.2 L MCV 75.3 L MCH 24.1 L MCHC 32.1 RDW Std Deviation 35.4 RDW Coeff of Tiana 13.0 Plt Count 390 MPV 8.7 Immature Gran % (Auto) 0.400 Neut % (Auto) 76.3 H Lymph % (Auto) 13.6 L [place] % (Auto) 8.8 Eos % (Auto) 0.7 Baso % (Auto) 0.2 Absolute Neuts (auto) 9.4 H Absolute Lymphs (auto) 1.68 Nucleated RBC % 0 ESR 80 H Sodium 135 Potassium 3.4 Chloride 98 Carbon Dioxide 23.9 Anion Gap 13 BUN 23 H Creatinine 1.08 Estim Creat Clear Calc 54.94 Est GFR (MDRD) Non-Af 56 L BUN/Creatinine Ratio 20.9 H Glucose 109 H Calcium 9.4 C-React Prot Ext Range 298.00 H Fluid Crystals NO CRYSTALS SEEN Fluid Crystal Source SYNOVIAL Fl Crystal Path Review Will follow Synovial Source KNEE Synovial Color Red Synovial Appearance Turbid Synovial Viscosity Sl. Viscous Synovial WBC 12.7100 H Synovial RBC 0.[address] Synovial Tot Cell Ct 12.7840 H Synov Polynuclear WBCs 12.176 Synov Mononuclear WBCs 0.534 Synovial Neutrophils 98 H Synovial Monocytes 2 Synovial Polynuclear % 95.8 Synovial Mononuclear % 4.[address] Comment May follow Discharge Plan Triage Chief Complaint: Lower Extremity Injury ED Provider: Carolee Proctor Dx/Rx/DC Orders Clinical Impression: Hemarthrosis following procedure Instructions: ED Knee Effusion Prescriptions: No Action gabapentin 400 mg capsule 400 mg PO 4X/DAY Patient Comments: TAKE 1 CAPSULE BY MOUTH FOUR TIMES DAILY folic acid 400 mcg tablet 0.4 mg PO DAILY melatonin 10 mg capsule 10 mg PO QHS PRN PRN (Reason: sleep) magnesium citrate 100 mg capsule 100 mg PO DAILY ferrous gluconate 324 mg (37.5 mg iron) tablet 324 mg PO DAILY vitamin E mixed 400 unit capsule 400 unit PO DAILY cholecalciferol (vitamin D3) 50 mcg (2,000 unit) capsule 50 mcg PO DAILY glucosamine-chondroitin 900 mg tablet 900 mg PO BID fluticasone propionate [Flonase Allergy Relief] 50 mcg/actuation spray,suspension 1 spray intranasal DAILY Rx Instructions: administer into each nostril lisinopril 10 mg tablet 10 mg PO DAILY diclofenac sodium 100 MG tablet extended release 24 hr 75 mg PO BID Patient Comments: venlafaxine 150 MG tablet extended release 24hr 150 mg PO BID C Complex 1,000 mg tablet extended release 1,000 mg PO DAILY aspirin 81 mg capsule 81 mg PO DAILY hydrocodone-acetaminophen 5-325 mg tablet 1 tab PO Q6H PRN (Reason: pain) 5 Days Qty: 20 0RF rosuvastatin 5 mg tablet 5 mg PO QHS turmeric 400 mg capsule 400 mg PO DAILY calcium carbonate 600 mg calcium (1,500 mg) tablet 600 mg PO QHS clobetasol 0.05 % ointment 1 applic topical .weekly Rx Instructions: Primary Care Provider: Jael Black Referrals: Jael Black MD [Primary Care Provider] - Yon Shah MD [Med Staff - Active Staff] - 2 Days Activity Restrictions/Additional Instructions: Your evaluation in the Emergency Department did not reveal any acute reason for admission. However, I want to emphasize that you may be early in the course of a disease process or illness even if it is not present. For this reason you should follow-up within 24 hours for reevaluation with either your primary care physician or if necessary back here in the Emergency Department. You should return to the Emergency Department immediately if your symptoms worsen or new symptoms develop. Follow-up with Dr. Shah on Wednesday. It takes about 2 days for the joint studies to come back. Return to the ED with any new or worsening symptoms. Print Language: Monegasque Disposition Disposition: Home, Self Care Discharge Date/Time: 11/11/24 20:51
[2024-11-11 18:54] LABS: Hematocrit 26.2 % (37-47); Hemoglobin 8.4 g/dL (12.0-15.0); Immature Granulocytes Count 0.050 X10^3/uL (0.0-0.0); Mean Corp Hgb Conc 32.1 g/dL (32-36); Mean Corpuscular Volume 75.3 fL (81-99); Mean Platelet Vol. 8.7 fl (6.2-12.0); NRBC Flagged by Analyzer 0 % (0-5); Platelet Count 390 K/mm3 (150-450); RBC Distribution Width CV 13.0 % (11.6-14.6); RBC Distribution Width SD 35.4 fl (35.1-43.9); Red Blood Count 3.48 M/mm3 (4.2-5.4); White Blood Count 12.3 K/mm3 (4.4-11.0)
[2024-11-11 19:26] LABS: Anion Gap 13 (5-15); BUN 23 mg/dL (4-19); BUN/Creat Ratio 20.9 RATIO (10-20); CRP 298.00 mg/L (0.0-3.0); Calcium,Total 9.4 mg/dL (7.6-11.0); Carbon Dioxide 23.9 mmol/L (21.0-32.0); Chloride 98 mmol/L (98-108); Estimated Creatinine Clearance 54.94 ml/min (50-250); Glucose 109 mg/dL (70-99); Potassium 3.4 mmol/L (3.3-5.1)
[2024-11-11 20:00] VITALS: BP 106/56; BP 119/55; PULSE 80; PULSE 89; RESP 16; TEMP 36.9; O2SAT 100; O2SAT 96
[2024-11-11] MEDS: Lidocaine 1% (20 ml mdv) 20 ML Vial INFILT (20:33)
[2024-11-11 22:28] LABS: AUTO B FLUID DILUENT BKGD CT WBC <0.1 RBC <0.01 (W<.1,R<.01); Source- Body Fluid SYNOVIAL
[2024-11-11 22:29] LABS: Color / Synovial Fluid Red (Pale Yellow); Source / Synovial Fluid KNEE; Viscosity / Synovial Fluid Sl. Viscous (HIGH)
[2024-11-11 22:31] LABS: Appearance /Synovial Fluid Turbid (CLEAR); RBC /Synovial Fluid 0.830 10^6/uL (0)
[2024-11-11 22:32] LABS: WBC / Synovial Fluid 12.7100 10^3/uL (0.000-0.002)
[2024-11-11 22:33] LABS: Synovial Fld Mononuclear WBC % 4.2 %; Synovial Fld Polynuclear WBC # 12.176 10^3/uL; Synovial Fld Polynuclear WBC % 95.8 %
[2024-11-11 22:34] LABS: Synovial Fld Mononuclear WBC # 0.534 10^3/ul; Total Cell Count Synovial Fld 12.7840 10^3/uL (0.000-0.000)
[2024-11-11 22:35] LABS: Body Fluid QC Type(s) BF1Q,BF2Q
[2024-11-11 22:58] LABS: CRYSTALS, BODY FLUID NO CRYSTALS SEEN
[2024-11-11 23:29] LABS: Monocyte /Synovial Fluid 2 %
== END 2024-11-11 20:51 | disposition home or self-care (01) ==
PROVIDERS: Emergency Provider Student in an Organized Health Care Education/Training Program; PCP Internal Medicine; Visit Provider Student in an Organized Health Care Education/Training Program
DX: M25.061 Hemarthrosis, right knee (principal); E78.00 Pure hypercholesterolemia, unspecified; I10 Essential (primary) hypertension; Z96.651 Presence of right artificial knee joint; Z98.890 Other specified postprocedural states; D72.829 Elevated white blood cell count, unspecified
CPT/HCPCS: 80048; 85025; 85652; 86140; 87070; 87075; 87205; 89050; 89051; 89060; 99285; A4216

== ENCOUNTER 2025-03-03 18:04 | Emergency (ER) | payer MEDICARE, OTHER, SELFPAY ==
[2025-03-03 18:05] VITALS: BP 126/67; PULSE 111; RESP 24; TEMP 37.2; O2SAT 97
[2025-03-03 18:08] VITALS: BP 126/67; PULSE 71; RESP 18; TEMP 37.2; O2SAT 97; BMI 27.5
--- NOTE | 2025-03-03 18:22 | ED.VIS.LOWEX ---
HPI History of Present Illness Chief Complaint: Lower Extremity Injury Informant: patient and EMS Onset/Context/Timing Onset: Hours (1-1.5) Narrative Narrative: Patient is a 69-year-old female with a history of left knee issues presenting with acute left knee pain and swelling. - Onset of symptoms began around 1-1.5 hrs ago. - Reports non-sudden onset of intense pain and swelling in the left knee while ambulating on the main level of her house; denies any falls or trauma. - Similar episode occurred in August in same left knee, prior to right knee replacement, attributed to bone fragments by her orthopedic surgeon, Dr. Shah. States she is due to have a knee replacement on this left knee at some point this coming year. - Applied ice and elevated the knee immediately, which did not alleviate the pain but did not worsen it either. Pain intensified with movement, prompting ED visit. - Able to bend the knee slightly but reports significant pain with movement and difficulty keeping it straight or lifting the foot off the bed. - Denies significant pain with palpation. - Currently taking Voltaren and a daily baby aspirin for; denies use of anticoagulants. [facility] Medical History Encounter for pre-operative cardiovascular clearance Abnormal EKG SOB (shortness of breath) Other hammer toe(s) (acquired), left foot Degenerative spondylolisthesis Left knee DJD Right knee DJD Fibromyalgia CFIDS (chronic fatigue and immune dysfunction syndrome) MRSA (methicillin resistant Staphylococcus aureus) colonization Low iron History of IBS Depression Anxiety Arthritis High cholesterol Back pain Injury of back Injury of head and neck CPAP (continuous positive airway pressure) dependence Hypertension Home Medications ?Medication ?Instructions ?Recorded ?Last Taken ?Type diclofenac sodium 100 mg 75 mg PO BID NSAID 11/19/16 08/23/24 History tablet,extended release 24 hr venlafaxine 150 mg tablet,extended 150 mg PO BID Antidepressant 11/19/16 08/23/24 History release 24 hr antiarthritic combination no.2 900 900 mg PO BID Antiarthritis 12/02/20 08/23/24 History mg tablet (glucosamine-chondroitin) cholecalciferol (vitamin D3) 50 50 mcg PO DAILY Supplement 12/02/20 08/23/24 History mcg (2,000 unit) capsule ferrous gluconate 324 mg (37.5 mg 324 mg PO DAILY Iron Supplement 12/02/20 08/23/24 History iron) tablet fluticasone propionate 50 1 spray intranasal DAILY Allergies 12/02/20 08/23/24 History mcg/actuation nasal spray,suspension (Flonase Allergy Relief) folic acid 400 mcg tablet 0.4 mg PO DAILY Supplement 12/02/20 08/23/24 History gabapentin 400 mg capsule 400 mg PO 4X/DAY Neuropathy 12/02/20 08/23/24 History magnesium citrate 100 mg capsule 100 mg PO DAILY Supplement 12/02/20 08/23/24 History melatonin 10 mg capsule 10 mg PO QHS PRN PRN sleep 12/02/20 08/22/24 History vitamin E mixed 400 unit capsule 400 unit PO DAILY Supplement 12/02/20 08/23/24 History lisinopril 10 mg tablet 10 mg PO DAILY Blood pressure 08/13/21 08/23/24 History calcium carbonate 600 mg PO QHS Supplement 09/24/23 08/23/24 History clobetasol 0.05 % topical ointment 1 applic topical .weekly swelling 09/24/23 08/17/24 History rosuvastatin 5 mg tablet 5 mg PO QHS Cholesterol pill 09/24/23 08/22/24 History turmeric 400 mg capsule 400 mg PO DAILY Supplement 09/24/23 08/23/24 History ascorbic acid (vitamin C) 1,000 mg 1,000 mg PO DAILY Supplement 06/21/24 08/23/24 History tablet,extended release (C Complex) aspirin 81 mg capsule 81 mg PO DAILY Antiplatelet 06/21/24 08/23/24 History hydrocodone-acetaminophen 5-325mg 1 tab PO Q6H PRN pain 5 days #20 08/24/24 Unknown Rx 5mg-325mg tabs oxycodone-acetaminophen 5 mg-325 1 tab PO Q6H PRN PRN Pain 2 days 03/03/25 Unknown Rx mg tablet #8 TABLETS Allergy/AdvReac Type Severity Reaction Status Date / Time Sulfa (Sulfonamide Allergy Hives Verified 03/03/25 18:06 Antibiotics) Family History Mother Heart disease Surgical History S/P cervical spinal fusion History of toe surgery Hx of left cataract extraction Hx of right cataract extraction Hx of spinal surgery Hx of thumb surgery History of bunionectomy of right great toe Hx of ovarian cystectomy Hx of cervical spine surgery Hx of hand surgery History of bunionectomy of left great toe History of bunionectomy of left great toe Social History household members: spouse Smoking Status: Never smoker ROS ROS ED Constitutional Constitutional ED: Denies chills or fever(s) Musculoskeletal Musculoskeletal: Reports extremity pain; Denies neck pain Integumentary Denies Abrasions, rash or wounds Neurologic Neurologic: Denies paresthesias or weakness EXAM Physical Exam Const Vital Signs: 03/03/25 18:05 03/03/25 18:08 03/03/25 20:04 Temperature 99 F 99 F Temperature Source Oral Oral Pulse Rate 111 H 71 70 Respiratory Rate 24 H 18 18 Blood Pressure 126/67 H 126/67 H 128/56 H Blood Pressure Mean 86 86 80 Pulse Ox 97 97 96 Oxygen Delivery Method Room Air Room Air Room Air Positive well nourished and well developed General Appearance ED: well developed and NAD Neck full ROM and supple Back/Spine normal ROM and normal to inspection Extremity Extremity Narrative: Large left knee effusion. No erythema or excessive warmth. Limited range of motion, she is able to bend just a little, extensor mechanism is intact but she cannot fully lift her foot off the bed due to pain. No bony tenderness. No other tenderness when the patient is not moving it is at rest. Neurovasc intact distally. All compartments of the lower leg and thigh soft nondistended. No palpable cords. No regional lymphadenopathy. Neuro oriented x3, no focal motor deficits and no sensory deficits noted Sensorium / Orientation: alert Psych mental status grossly normal and thought process normal Skin no wounds Rashes: no rashes MDM MDM MDM Narrative Medical decision making narrative: A two-view X-ray series of the left knee was obtained, showing no acute bony abnormality such as fracture or dislocation; however, a large joint effusion was noted on my interpretation. We discussed the pros and cons of performing an arthrocentesis, which I recommended for pain control, as the patient requested it. She understands the low risk of infection?given that we will perform the procedure under sterile conditions?as well as the possibility that the effusion may recur depending on its underlying cause. Despite these risks, she prefers to have the arthrocentesis performed. I believe this is a reasonable approach. The procedure was performed in a sterile fashion with local anesthesia at the level of the skin and synovial capsule. Subsequently, 100 cc of blood was withdrawn from the joint. The effusion collapsed clinically, and the patient felt much better afterward. There were no complications. We placed an ice pack on the knee for 20 to 30 minutes, and the nurses then applied an H-wrap and provided the patient with crutches. She was advised to continue icing as much as possible and to avoid bending until her orthopedic follow-up, which is scheduled for later this week. I do not think she needs a knee immobilizer at this time, and she is comfortable with that plan. I am sending a culture of the fluid for testing. I am not waiting on a cell count, as the aspirated fluid was pure blood, and I do not believe a cell count would provide much utility. My suspicion for infection is extremely low; this testing is primarily to rule out infection as the cause of the effusion. Radiography Diagnostic Testing: Clinical Impression(s) from Imaging Studies Knee X-Ray 03/03/25 18:45 IMPRESSION: Advanced osteoarthritis of the left knee. Large knee effusion. No acute bony abnormalities. Reading Location: [facility] Procedures Other Procedures Procedure(s): Arthrocentesis left knee: After informed consent from the patient after discussing all risks and benefits, from a medial approach with the patient's knee in extension I anesthetized locally after prepping with isopropyl and all, using 2 cc of plain 1% lidocaine, aspirating a small amount of blood presumably from the synovium as I was close to the synovial capsule, and then reprepped with iodine, then entering at the same location with an 18-gauge needle subpatellar, aspirating a total of 100 cc of blood with no clots, sterilely placing new syringes on the same needle each time without reentering the synovial a second time. Patient tolerated this very well, there were no complications, the effusion deflated clinically by the end of the procedure and the patient felt much better. One of the syringes was sent to the lab for culture which is pending. Discharge Plan Triage Chief Complaint: Lower Extremity Injury ED Provider: Harvey Crump Dx/Rx/DC Orders Clinical Impression: Hemarthrosis of knee, left, Left knee DJD Instructions: ED Fluid on the Knee Prescriptions: New oxycodone-acetaminophen 5-325 mg tablet 1 tab PO Q6H PRN PRN (Reason: Pain) 2 Days Qty: 8 0RF No Action gabapentin 400 mg capsule 400 mg PO 4X/DAY Patient Comments: TAKE 1 CAPSULE BY MOUTH FOUR TIMES DAILY folic acid 400 mcg tablet 0.4 mg PO DAILY melatonin 10 mg capsule 10 mg PO QHS PRN PRN (Reason: sleep) magnesium citrate 100 mg capsule 100 mg PO DAILY ferrous gluconate 324 mg (37.5 mg iron) tablet 324 mg PO DAILY vitamin E mixed 400 unit capsule 400 unit PO DAILY cholecalciferol (vitamin D3) 50 mcg (2,000 unit) capsule 50 mcg PO DAILY glucosamine-chondroitin 900 mg tablet 900 mg PO BID fluticasone propionate [Flonase Allergy Relief] 50 mcg/actuation spray,suspension 1 spray intranasal DAILY Rx Instructions: administer into each nostril lisinopril 10 mg tablet 10 mg PO DAILY diclofenac sodium 100 MG tablet extended release 24 hr 75 mg PO BID Patient Comments: venlafaxine 150 MG tablet extended release 24hr 150 mg PO BID C Complex 1,000 mg tablet extended release 1,000 mg PO DAILY aspirin 81 mg capsule 81 mg PO DAILY hydrocodone-acetaminophen 5-325 mg tablet 1 tab PO Q6H PRN (Reason: pain) 5 Days Qty: 20 0RF rosuvastatin 5 mg tablet 5 mg PO QHS turmeric 400 mg capsule 400 mg PO DAILY calcium carbonate 600 mg calcium (1,500 mg) tablet 600 mg PO QHS clobetasol 0.05 % ointment 1 applic topical .weekly Rx Instructions: Primary Care Provider: Jael Black Referrals: Yon Shah MD [Med Staff - Active Staff, Orthopedics] - As soon as possible Activity Restrictions/Additional Instructions: - A sample of the fluid was sent for culture to rule out infection; we will contact you if the results require any further care. - Apply ice to your knee as much as possible?use 20?30 minute icing sessions?to reduce swelling and pain. - Keep your knee elevated and avoid bending it as much as possible until your orthopedic follow-up. - Wear the provided compression wrap (SANTOS wrap) and use the crutches for support as needed. - Follow up with your orthopedic surgeon NANCY. Print Language: Kinyarwanda Disposition Disposition: Home, Self Care
--- OUTSIDE RECORDS SUMMARY | 2025-03-03 18:37 | XMS RPT_ITS | CCD ---
Author Organization [facility] CliniSyne Care Team Providers Care Community [facility] Nurse Name Role Phone Eriberto Tovar MD Primary Care Provider ERBIERTO TOVAR Primary Care Unavailable LILLY RODAS Admitting Unavailable LILLY RODAS Referring Unavailable RICHY DOMINGUEZ Referring Unavailable ABILIOAMPASHKAN, ERIBERTO D Primary Care Unavailable LILLY RODAS Attending Unavailable RICHY DOMINGUEZ Admitting Unavailable Eriberto Tovar MD Primary Care Provider Eriberto Tovar MD Primary Care Provider LA ERIBERTO Shweta Referring Unavailable TALAMPAS, ERIBERTO D Primary Care Unavailable Yates CHEERLEADING COACH.MEMORY CARE DIRECTOR, Sanjay Unavailable Jaime CHEERLEADING COACH.GERIATRIC CASE MANAGER, Richy Unavailable Jaime CHEERLEADING COACH.GERIATRIC CASE MANAGER, Richy Unavailable Jaime CHEERLEADING COACH.GERIATRIC CASE MANAGER, Richy Unavailable Jaime CHEERLEADING COACH.GERIATRIC CASE MANAGER, Richy Unavailable Yates CHEERLEADING COACH.MEMORY CARE DIRECTOR, Sanjay Unavailable Yates CHEERLEADING COACH.MEMORY CARE DIRECTOR, Sanjay Unavailable DR ERIBERTO TOVAR MD Primary Care Physician LA ERIBERTO D Referring Unavailable TALAMPAS, ERIBERTO D Primary Care Unavailable TALAMPASHKAN, ERIBERTO D Primary Care Unavailable YATES, SANJAY Referring Unavailable TALAMPAS, ERIBERTO D Primary Care Unavailable MAYELA LUNA Referring Unavailable GHULAM CHOE Attending Unavailable ABILIOAMPASHKAN, ERIBERTO D Referring Unavailable TALAMPAS, ERIBERTO D [...] Unavailable TALAMPAS, ERIBERTO D Primary Care Unavailable CASANDRA BLAIR Attending Unavailable TALAMPAS, ERIBERTO D Primary Care Unavailable RICHY DOMINGUEZ Attending Unavailable SOPHIE AGUILAR, DR JOSE L Bermudez Attending Unavailab Palma AGUILAR, DR JOSE L Bermudez Referring Unavailab shannon TOVAR MD, DR WEI Primary Care Unavailable LA AGUILAR, DR WEI Consulting Unavailable SOPHIE AGUILAR, DR JOSE L Bermudez Admitting Unavailab Carissa AGUILAR, MYNOR Consulting Unavailable KIT GONZALEZ-GERIATRIC CASE MANAGER, KELSEY Consulting Unava dhruv BARRIOS MD, DR JOSE L Bermudez Attending Unavailab shannon TOVAR MD, DR WEI Primary Care Unavailable Talampas, Eriberto D Primary Care Unavailable Justine Romano Attending Unavailable SkJustine cristobal Attending Unavailable Talampas, Eriberto D Primary Care Unavailable SkruJustine quiroga Attending Unavailable Talampas, Eriberto D Primary Care Unavailable SkruJustine quiroga Attending Unavailable Talampas, Eriberto D Primary Care Unavailable Jose L Barrios Attending Unavailable Jose L Barrios Referring Unavailable Talampas, Eriberto D Primary Care Unavailable Talampas, Eriberto D Primary Care Unavailable SkJustine cristobal Attending Unavailable Talampas, Eriberto D Primary Care Unavailable SkruJustine quiroga Attending Unavailable Talampas, Eriberto D Primary Care Unavailable SkruckJustine Attending Unavailable Talampas, Eriberto D Primary Care Unavailable SkJustine cristobal Attending Unavailable Ayush, Nahum Attending Unavailable Talampas, Eriberto D Primary Care Unavailable SkJustine cristobal Attending Unavailable Talampas, Eriberto D Primary Care Unavailable SkJustine cristobal Attending Unavailable Talampas, Eriberto D Primary Care Unavailable Talampas, Eriberto D Primary Care Unavailable Nagajothi, Nagapradee Referring Unavailabl e Nagajomariana Nagapradee Attending Unavailabl e Ayush, Nahum Attending Unavailable Jose L Barrios Referring Unavailable Talampas, Eriberto D Primary Care Unavailable Ayush, Nahum Attending Unavailable Ayush, Nahum Referring Unavailable Talampas, Eriberto D Primary Care Unavailable Ayush, [place] Attending Unavailable Talampas, Eriberto D Referring Unavailable Talampas, Eriberto D Primary Care Unavailable Justine Romano Attending Unavailable Talampas, Eriberto D Primary Care Unavailable Jose L Barrios Consulting Unavailable Talampas, Eriberto D Primary Care Unavailable Sanjay Moe Attending Unavailable Melchor Vilchis Admitting Unavailable Melchor Vilchis Consulting Unavailable Sanjay Moe Consulting Unavailable Talampas, Eriberto D Attending Unavailable Talampas, Eriberto D Referring Unavailable Talampas, Eriberto D Primary Care Unavailable Carolee Proctor Attending Unavailable Talampas, Eriberto D Primary Care Unavailable Jose L Barrios Attending Unavailable Talampas, Eriberto D Primary Care Unavailable Jose L Barrios Referring Unavailable Sanjay Moe Attending Unavailable Jose L Barrios Consulting Unavailable Melchor Vilchis Admitting Unavailable Talampas, Eriberto D Primary Care Unavailable Melchor Vilchis Consulting Unavailable Nahum Peacock Attending Unavailable Nahum Peacock Referring Unavailable Talampas, Eriberto D Primary Care Unavailable Nahum Peacock Consulting Unavailable Talampas, Eriberto D Primary Care Unavailable Justine Romano Attending Unavailable Melchor Vilchis Attending Unavailable Justine Romano Attending Unavailable Talampas, Eriberto D Primary Care Unavailable Talampas, Eriberto D Primary Care Unavailable Justine Romano Attending Unavailable Talampas, Eriberto D Primary Care Unavailable Justine Romano Attending Unavailable Allergies Allergy Classification Reported Allergen(s) Allergy Type Date of Onset Reaction(s) Facility Sulfonamides (antibiotic) (1 source) Sulfonamides (Antibiotic) Drug Allergy 12-05-2004 [facility] Work Phone: (20 sources) Sulfonamides (Antibiotic); Translations: [SULFA (SULFONAMIDE ANTIBIOTICS)] Drug Allergy 12-05-2004 [facility] Work Phone: (2 sources) Sulfonamide; Translations: [sulfa drugs] Drug allergy itching [facility] (1 source) Sulfonamides (Antibiotic) Drug allergy (disorder) 11-11-2024 [facility] Repository Medications Current Medications Medication Drug Class(es) [...] Inhibitor, Nonsteroidal Anti-inflammatory Drug Start: 5 End: 5 take 1 tablet by mouth once [...] Date: 10/11/24 Status: Ordered Repeat number: 1 calcium carbonate 600 mg chewable tablet (2 [...] Comment on above: Take 1 capsule by [facility] twice daily for 10 days. cholecalciferol 0.025 mg chewable tablet (20 sources) Vitamin D Start: 12-19-19 cholecalciferol( TAMIN D-3 1,000 UNIT CHEWABLE TAB) [...] Comment on above: Take 1 tablet by [facility] twice daily for 7 days. Clobetasol (20 sources) Corticosteroid Start: 10-12-19 clobetasol 0.05% topical cream See Instructions, mon, wed, bandar, 0 Refill(s), Cream Start Date: 10/11/24 Status: [...] tablet (20 sources) Nonsteroidal Anti-inflammatory Drug Start: 08-14-2021 End: 07-18-2024 diclofenac sodium 75 mg oral delayed release tablet Dose : 75 mg = 1 tab(s), Oral, BID, # 60 tab(s), 0 Refill(s) Start Date: 10/11/24 Status: Ordered Medication Dispense Status: Completed Quantity: 60.0 Unit: tab(s) Total Allowed Fills: 1 Fills Dispensed: 0 Start: 07-11-2020 End: 08-12-2021 take 1 tablet [...] 24 hour period. Take 1 tablet by hector th twice daily. For pain/inflammation. Take with food. Take 1 tablet by hector th two times a day. For pain/inflammation. Take with food. docusate sodium 50 mg / sennosides, fdc 8.6 mg oral tablet (1 source) Start: 5 End: take 1 tablet by mouth twice daily Senokot S 50 mg-8.6 mg oral tablet Dose = 2 tab(s), Oral, BID, Take until first bowel movement, then as needed, X 3 day(s), # 12 tab(s), 0 Refill(s), Pharmacy: [id number], 170.2, cm, 11/07/24 12:33:00 EDT, Height, [...] sources) Anti-epileptic Agent Start: 02-12-2022 End: 01-14-2025 take 1 capsule by mouth four times daily gabapentin (NEURONTIN) 400 mg capsule Indications: Fibromyalgia Take 1 capsule by mouth four times daily for 180 days. as directed 360 capsule 3 07/18/2024 01/14/2025 Active Start: 03-13-2021 End: 09-09-2021 take 1 capsule by mouth four times daily gabapentin (NEURONTIN) 400 mg capsule Indications: Fibromyalgia Take 1 capsule by mouth four times daily for 180 days. 360 capsule 3 03/13/2021 Active Comment on above: Take 1 capsule by mo ut four times daily for 180 days. Take 1 capsule by mo uth four times daily for 90 days. Take 1 capsule by mo uth four times daily for 180 days. as directed ipratropium bromide 0.021 mg/actuat metered dose nasal spray (7 sources) Anticholinergic Start: 5 End: 5 Ipratropium Meg[place]el (ATROVENT) 21 mcg (0.03 %) nasal spray [...] (20 sources) Angiotensin Converting Enzyme Inhibitor Start: 3 End: 5 lisinopril 10 mg oral tablet Dose : 10 mg = 1 tab(s), Oral, Daily, 0 Refill(s) Start Date: 10/11/24 Status: Ordered Medication Dispense Status: Completed Total Allowed Fills: 1 Fills Dispensed: 0 Start: 02-03-2021 End: 02-11-2022 take 1 tablet by mouth once daily lisinopril (PRINIVIL) 10 mg tablet Indications: Elevated blood pressure reading without diagnosis of hypertension Take 1 tablet by mouth once daily. 90 tablet 3 02/12/2022 Active Comment on above: Take 1 tablet by hector once daily. magnesium citrate 100 mg oral [...] Comment on above: Take 1 capsule by [facility] twice daily for 5 days. oxyCODONE hydrochloride 5 mg oral tablet (4 sources) Opioid Agonist Start: 2024 End: 2024 take 1-2 tablets by mouth every four hours as needed for pain oxyCODONE 5 mg oral tablet ( IMMEDIATE release ) See Instructions, PRN as needed for pain, 1-2 tab(s) Oral q4h, # 48 tab(s), 0 Refill(s), 11/16/24 12:33:00 PM EDT, Pharmacy: [id number], Status post total right knee replacement, [...] tablet 11/24/2023 12/01/2023 Active polyethylene glycol 3350 034199 mg / potassium chloride 2970 mg / sodium bicarbonate 6740 mg / sodium chloride 5860 mg / sodium sulfate 37864 mg powder for oral solution (1 source) Osmotic Laxative Start: 12-15-2023 End: 12-15-2023 peg 3350-Electrolytes (GOLYTELY) 236-22.74-6.74 -5.86 gram suspension Indications: Screen for colon cancer Take 4,000 mL by mouth one time only for 1 dose. Refer to printed prep instructions from your provider. 4000 mL 12/15/2023 12/15/2023 Active rosuvastatin calcium 5 mg oral tablet (20 sources) HMG-CoA Reductase Inhibitor Start: 08-11-2023 End: 07-10-2024 rosuvastatin 5 mg oral tablet Dose : 5 mg = 1 tab(s), Oral, Daily, 0 Refill(s) Start Date: 10/11/24 Status: Ordered Medication Dispense Status: Completed Total Allowed Fills: 1 Fills Dispensed: 0 tiZANidine 4 mg oral capsule (20 sources) [...] Comment on above: TAKE 1 TABLET BY HECTOR TH AT BEDTIME, MAY TAKE DOSE DURING THE DAY NEEDED traMADol hydrochloride 50 mg oral tablet (20 sources) Opioid Agonist Start: 10-11-2024 traMADol 50 mg oral tablet Dose : 50 mg = 1 tab(s), Oral, q12h, PRN for pain, 0 Refill(s) Start Date: 10/11/24 Status: Ordered Repeat number: 1 Start: 05-20-2023 take 1 tablet by hector th twice daily as needed for pain traMADol (ULTRAM) 50 mg tablet TAKE 1 TABLET BY MOUTH up to TWICE DAILY NEEDED FOR PAIN 0 05/20/2023 Active Start: 01-01-2021 End: 05-08-2022 traMADol (ULTRAM) 50 mg tabl et twice daily. 0 01/01/2021 05/08/2022 Discontinued Start: 01-01-2021 take 1 tablet by hector th once daily as needed for pain traMADol (ULTRAM) 50 mg tablet TAKE 1 TABLET BY MOUTH DAILY NEEDED FOR PAIN 0 01/01/2021 Active Comment on above: TAKE 1 TABLET BY HECTOR TH DAILY NEEDED FOR PAIN twice daily. traZODone hydrochloride 50 mg oral tablet (20 sources) Serotonin Reuptake Inhibitor Start: 07-09-2023 End: 07-18-2024 traZODone 50 mg oral tablet Dose : 50 mg = 1 tab(s), qHS, 0 Refill(s) Start Date: 11/07/24 Status: Ordered Medication Dispense Status: Completed Total Allowed Fills: 1 Fills Dispensed: 0 Comment on above: Take 0.5-1 tablets b [...] sources) Serotonin and Norepinephrine Reuptake Inhibitor Start: 4 End: 5 venlafaxine 150 mg oral capsule, extended release Dose : 150 mg = 1 cap(s), Oral, BIDM, 0 Refill(s) Start Date: 10/11/24 Status: Ordered Medication Dispense Status: Completed Total Allowed Fills: 1 Fills Dispensed: 0 Start: 02-03-2021 End: 05-08-2022 take 1 capsule by mouth twice daily venlafaxine ER (EFFEXOR XR) 150 mg 24 hr capsule Take 1 capsule by mouth twice daily. 180 capsule 3 05/08/2022 Active Comment on above: Take 1 capsule by mo [facility] twice daily. Take 1 capsule by [facility] two times a day. Vitamin D3 50 [...] 5-325 mg per tablet 08/24/2024 09/18/2024 Discontinued [id number] 200 actuat albuterol 0.09 mg/actuat metered dose [...] 12.5-50 mg, INTRAVENOUS, DIRECTED, Starting on Kanwal 01/27/24 at 1200, Until Kanwal 01/27/24 at 1559, DOSING DIRECTED BY PHYSICIAN FOR PROCEDURAL SEDATION ONLY, Intraprocedure 1 ml fentaNYL 0.05 mg/ml injection (1 source) Opioid Agonist Start: 01-27-2024 End: 01-27-2024 25-100 mcg, INTRAVENOUS, DIRECTED, Starting on Kanwal 01/27/24 at [...] Comment on above: Take 1 tablet by [facility] twice daily. lidocaine hydrochloride 20 mg/ml mucous [...] 12.5-100 mg, INTRAVENOUS, DIRECTED, Starting on Kanwal 1024 at 1230, Until Kanwal 24 at 1629, DOSING DIRECTED BY PHYSICIAN FOR PROCEDURAL SEDATION ONLY, Intraprocedure 5 ml midazolam 1 mg/ml injection (1 source) Benzodiazepine Start: End: 1-5 mg, INTRAVENOUS, DIRECTED, Starting on Kanwal 24 at 1200, Until Kanwal 1024 at 1559, DOSING DIRECTED BY PHYSICIAN FOR PROCEDURAL SEDATION ONLY, Intraprocedure 2 ml ondansetron 2 mg/ml injection (1 source) Serotonin-3 Receptor Antagonist Start: End: 4 mg, INTRAVENOUS, DIRECTED, Starting on Kanwal 24 at 1230, Until Kanwal 24 at 1629, Dosing as directed for intraprocedural use only, Intraprocedure phenazopyridine hydrochloride 200 mg oral tablet (8 sources) Start: End: take 1 tablet by mouth every eight hours as needed phenazopyridine (PYRIDIUM) 200 mg tablet Take 1 tablet by mouth three times daily as needed. 20 tablet 0 11/27/2019 10/30/2021 Discontinued Comment on above: Take 1 tablet by [facility] three times daily as needed. predniSONE 10 [...] Classification Problem Date Documented Da te Episodic/Chronic Allergic reactions (20 sources) Contact dermatitis; Translations: [Unspecified contact dermatitis, unspecified cause] Onset: 9 Resolved: 5 01-17-2015 Episodic Anxiety disorders (20 sources) Generalized anxiety disorder; Translations: [Generalized anxiety disorder] Onset: 8 02-21-2018 Chronic Deficiency and other anemia (2 sources) Microcytic anemia; Translations: [Iron deficiency anemia, unspecified] 01-20-2024 Episodic Deficiency and other anemia (2 sources) Iron deficiency anemia; Translations: [Iron deficiency anemia, unspecified] 07-04-2024 Episodic Deficiency and other anemia (3 sources) Anemia, unspecified; Translations: [Anemia, unspecified type] Onset: 9 Episodic Diseases of white blood cells (3 sources) Leukocytosis; Translations: [Elevated white blood cell count, unspecified] Onset: 5 07-02-2024 Chronic Disorders of lipid metabolism (20 sources) Mixed hyperlipidemia; Translations: [Mixed hyperlipidemia] Onset: 9 Resolved: 3 Chronic Disorders of teeth and jaw (1 source) Infection of tooth; Translations: [Periapical abscess without sinus] 06-19-2024 Episodic Esophageal disorders (20 sources) Gastroesophageal reflux disease; Translations: [Gastro-esophageal reflux disease without esophagitis] Onset: 4 Resolved: 8 04-30-2017 Chronic Essential hypertension (8 sources) Essential hypertension; Translations: [Essential (primary) hypertension] Onset: 5 01-07-2024 Chronic Genitourinary symptoms and ill-defined conditions (3 sources) Increased frequency of urination; Translations: [Frequency of micturition] Episodic Immunizations and screening for infectious disease (2 sources) Suspected disease caused by 2019-nCoV; Translations: [Suspected COVID-19 virus infection] Onset: 5 Episodic Joint disorders and dislocations; trauma-related (2 sources) Loose body in knee, right knee; Translations: [Patellofemoral disorders, right knee] Onset: 5 Chronic Malaise and fatigue (20 sources) Fatigue; Translations: [Chronic fatigue, unspecified] Onset: 9 07-16-2015 Chronic Mood disorders (20 sources) Recurrent major depression in partial remission; Translations: [Major depressive disorder, recurrent, in partial remission] Onset: 9 Resolved: 4 11-02-2017 Chronic Mood disorders (1 source) Mood disorders; Translations: [Depression, unspecified] Onset: 5 Mycoses (1 source) Candidiasis of vagina; Translations: [Yeast vaginitis] Episodic Nonmalignant breast conditions (1 source) Mammographic breast tissue appearance; Translations: [Dense breast tissue on mammogram] 06-25-2022 Episodic Nutritional deficiencies (4 sources) Vitamin D deficiency; Translations: [Vitamin D deficiency, unspecified] Onset: 4 02-28-2024 Chronic Osteoarthritis (12 sources) Primary gonarthrosis, bilateral; Translations: [Bilateral primary osteoarthritis of knee] Onset: 4 06-17-2023 Chronic Other aftercare (2 sources) Encounter for therapeutic drug level monitoring; Translations: [Encounter for therapeutic drug monitoring] Onset: 4 Episodic Other aftercare (2 sources) Other termite technician (current) drug therapy; Translations: [Encounter for long-term current use of medication] Onset: 4 Episodic Other aftercare (1 source) termite exterminator (current) use of aspirin; Translations: [residential (current) use of aspirin] Onset: 5 Episodic Other aftercare (1 source) residential (current) use of opiate analgesic; Translations: [residential (current) use of opiate analgesic] Onset: 5 Episodic Other circulatory disease (1 source) Elevated blood-pressure reading without diagnosis of hypertension; Translations: [Elevated blood-pressure reading, without diagnosis of hypertension] Episodic Other circulatory disease (1 source) Hypotension, unspecified; Translations: [Hypotension, unspecified] Onset: 5 Episodic Other connective tissue disease (1 source) Artificial knee joint present; Translations: [Presence of right artificial knee joint] Onset: 5 Chronic Other connective tissue disease (1 source) Presence of right artificial knee joint; Translations: [Presence of right artificial knee joint] Onset: 5 Chronic Other connective tissue disease (2 sources) Fibromyalgia; Translations: [Fibromyalgia] Onset: 6 Episodic Other connective tissue disease (1 source) Arthrodesis status; Translations: [Arthrodesis status] Onset: 5 Episodic Other ear and sense organ disorders (1 source) Impacted cerumen in right ear; Translations: [Impacted cerumen, right ear] Episodic Other female genital disorders (20 sources) Dyspareunia; Translations: [Dyspareunia] Onset: 3 05-23-2012 Chronic Other gastrointestinal disorders (1 source) Irritable bowel syndrome without diarrhea; Translations: [Irritable bowel syndrome, unspecified] Onset: 5 Chronic Other gastrointestinal disorders (1 source) Constipation; Translations: [Constipation, unspecified] 06-19-2024 Episodic Other gastrointestinal disorders (1 source) Abdominal wind pain; Translations: [Gas pain] 06-19-2024 Episodic Other gastrointestinal disorders (1 source) Other constipation; Translations: [Other constipation] Onset: 5 Episodic Other inflammatory condition of skin (2 sources) Chafing of skin; Translations: [Erythema intertrigo] 02-28-2024 Episodic Other lower respiratory disease (2 sources) Cough; Translations: [Cough] Episodic Other nervous system disorders (5 sources) Other chronic pain; Translations: [Chronic pain of right knee] Onset: 4 Chronic Other nervous system disorders (1 source) Polyneuropathy, unspecified; Translations: [Polyneuropathy, unspecified] Onset: 5 Chronic Other nervous system disorders (1 source) Difficulty in walking, not elsewhere classified; Translations: [Difficulty in walking, not elsewhere classified] Onset: 5 Chronic Other non-traumatic joint disorders (7 sources) Pain in unspecified knee; Translations: [Pain in joint, lower leg] 11-12-2022 Episodic Other non-traumatic joint disorders (5 sources) Pain in right knee; Translations: [Pain in joint, lower leg] Onset: 4 06-14-2023 Episodic Other non-traumatic joint disorders (1 source) Hemarthrosis of left knee; Translations: [Hemarthrosis, left knee] 08-31-2024 Episodic Other non-traumatic joint disorders (1 source) Effusion of joint of left knee; Translations: [Effusion, left knee] 08-31-2024 Episodic Other non-traumatic joint disorders (1 source) Hemarthrosis, left knee; Translations: [Hemarthrosis of left knee] Onset: 5 Episodic Other non-traumatic joint disorders (1 source) Effusion, left knee; Translations: [Effusion of left knee] Onset: 5 Episodic Other nutritional; endocrine; and metabolic disorders (1 source) Hypermagnesemia; Translations: [Hypermagnesemia] 03-14-2024 Chronic Other nutritional; endocrine; and metabolic disorders (1 source) Hypermagnesemia; Translations: [Hypermagnesemia] Onset: 4 Chronic Other nutritional; endocrine; and metabolic disorders (1 source) Unintentional weight loss; Translations: [Abnormal weight loss] 02-28-2024 Episodic Other skin disorders (4 sources) Lichen sclerosus et atrophicus; Translations: [Circumscribed scleroderma] Onset: 5 Chronic Residual codes; unclassified (20 sources) Obstructive sleep apnea syndrome; Translations: [Obstructive sleep apnea (adult) (pediatric)] 08-10-2015 Chronic Residual codes; unclassified (1 source) Obstructive sleep apnea (adult) (pediatric); Translations: [Obstructive sleep apnea] Onset: 4 Chronic Residual codes; unclassified (1 source) Sleep apnea, unspecified; Translations: [Sleep apnea, unspecified] Onset: 5 Chronic Residual codes; unclassified (2 sources) Postmenopausal state; Translations: [Asymptomatic menopausal state] Episodic Residual codes; unclassified (2 sources) Pain, unspecified; Translations: [Pain, unspecified] Onset: 4 Episodic Residual codes; unclassified (2 sources) Family history of coronary arteriosclerosis; Translations: [Family history of ischemic heart disease and other diseases of the circulatory system] 07-09-2023 Episodic Residual codes; unclassified (1 source) Family history of ischemic heart disease and other diseases of the circulatory system; Translations: [Family history of coronary artery disease in mother] Onset: Episodic Residual codes; unclassified (2 sources) Intolerant of heat; Translations: [Other general symptoms and signs] 02-28-2024 Episodic Residual codes; unclassified (2 sources) Preoperative state 07-04-2024 Episodic Residual codes; unclassified (4 sources) Viral syndrome; Translations: [Other general symptoms and signs] 07-10-2024 Episodic Residual codes; unclassified (1 source) FH: Rheumatoid arthritis; Translations: [Family history of arthritis] 07-20-2024 Episodic Residual codes; unclassified (1 source) Insomnia, unspecified; Translations: [Insomnia, unspecified] Onset: 5 Episodic Spondylosis; intervertebral disc disorders; other back problems (20 sources) Degeneration of intervertebral disc; Translations: [Degeneration of intervertebral disc, site unspecified] Onset: 9 06-04-2008 Chronic Spondylosis; intervertebral disc disorders; other back problems (3 sources) Chronic low back pain; Translations: [Chronic bilateral low back pain without sciatica] 11-24-2023 Episodic Sprains and strains (1 source) Shoulder strain; Translations: [Strain of unspecified muscle, fascia and tendon at shoulder and upper arm level, left arm, initial encounter] 09-07-2023 Episodic Unclassified (1 source) Recheck Onset: 5 Unclassified (1 source) Chronic bilateral low back pain without sciatica; Translations: [Chronic bilateral low back pain without sciatica] Onset: 4 Unclassified (1 source) Low back pain, unspecified; Translations: [Low back pain, unspecified] Onset: 5 Unclassified (1 source) 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; Translations: [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] Onset: 5 Unclassified (1 source) Presence of neurostimulator; Translations: [Presence of neurostimulator] Onset: 5 Viral infection (4 sources) Disease caused by 2019-nCoV; Translations: [COVID-19] Episodic Past or Other Problems Problem Classification Problem Date Documented Da te Episodic/Chronic Acquired foot deformities (20 sources) Bunion; Translations: [Bunion of unspecified foot] Onset: 12-10-2009 12-10-2009 Episodic Deficiency and other anemia (20 sources) Anemia; Translations: [Anemia, unspecified] Onset: 06-01-2008 06-04-2008 Episodic Deficiency and other anemia (1 source) Iron deficiency anemia, unspecified; Translations: [Microcytic anemia] Onset: 02-24-2024 Episodic Fever of unknown origin (4 sources) Fever; Translations: [Fever, unspecified] Onset: 07-19-2024 07-18-2024 Episodic Gastritis and duodenitis (20 sources) Acute hemorrhagic gastritis; Translations: [Acute gastritis with bleeding] Onset: 10-17-2008 Resolved: 04-30-2017 04-30-2017 Episodic Malaise and fatigue (2 sources) Fatigue; Translations: [Other fatigue] Onset: 07-19-2024 07-18-2024 Episodic Menopausal disorders (20 sources) Menopausal symptom; Translations: [Menopausal and female climacteric states] Onset: 01-12-2012 Resolved: 02-25-2016 02-25-2016 Chronic Other and unspecified benign neoplasm (20 sources) Melanocytic nevus of trunk; Translations: [Melanocytic nevi of trunk] Onset: 02-14-2009 Resolved: 02-25-2016 02-25-2016 Episodic Other circulatory disease (20 sources) Spider nevus; Translations: [Nevus, non-neoplastic] Onset: 02-14-2009 Resolved: 01-17-2015 01-17-2015 Episodic Other connective tissue disease (20 sources) Fibromyalgia; Translations: [Fibromyalgia] Onset: 06-01-2008 07-16-2015 Episodic Other gastrointestinal disorders (20 sources) Altered bowel function; Translations: [Change in bowel habit] Onset: 11-23-2013 Resolved: 02-25-2016 02-25-2016 Episodic Other inflammatory condition of skin (1 source) Erythema intertrigo; Translations: [Chafing] Onset: 06-22-2024 Episodic Other non-traumatic joint disorders (6 sources) Pain in left knee; Translations: [Pain in left knee] Onset: 06-14-2023 Episodic Other non-traumatic joint disorders (20 sources) Multiple joint pain; Translations: [Pain in unspecified joint] Onset: 06-01-2008 Resolved: 01-17-2015 01-17-2015 Episodic Other non-traumatic joint disorders (1 source) Hemarthrosis, unspecified joint; Translations: [Hemarthrosis, unspecified joint] Onset: 08-25-2024 Episodic Other nutritional; endocrine; and metabolic disorders (1 source) Abnormal weight loss; Translations: [Weight loss, unintentional] Onset: 02-28-2024 Episodic Other nutritional; endocrine; and metabolic disorders (1 source) Overweight; Translations: [Overweight] Onset: 08-25-2024 Episodic Other screening for suspected conditions (not mental disorders or infectious disease) (20 sources) Patient encounter status; Translations: [Encounter for screening for malignant neoplasm of cervix] Onset: 07-29-2023 Episodic Other skin disorders (20 sources) Asteatosis cutis; Translations: [Xerosis cutis] Onset: 02-14-2009 Resolved: 01-17-2015 01-17-2015 Episodic Other skin disorders (20 sources) Lentiginosis; Translations: [Other melanin hyperpigmentation] Onset: 02-14-2009 Resolved: 01-17-2015 01-17-2015 Episodic Other upper respiratory infections (13 sources) Acute sinusitis; Translations: [Acute sinusitis, unspecified] Onset: 07-19-2024 Episodic Residual codes; unclassified (20 sources) Sleep apnea; Translations: [Sleep apnea, unspecified] Onset: 07-31-2008 Resolved: 02-25-2016 02-25-2016 Chronic Residual codes; unclassified (20 sources) Periodic limb movement disorder; Translations: [Periodic limb movement disorder] Onset: 09-12-2008 Resolved: 02-25-2016 02-25-2016 Chronic Residual codes; unclassified (20 sources) Periodic leg movements of sleep ; Translations: [Periodic limb movement disorder] Onset: 09-12-2008 Resolved: 02-25-2016 02-25-2016 Chronic Residual codes; unclassified (20 sources) Insomnia; Translations: [Insomnia, unspecified] Onset: 06-01-2008 06-04-2008 Episodic Residual codes; unclassified (1 source) Family history of arthritis; Translations: [Family history of rheumatoid arthritis] Onset: 07-20-2024 Episodic Residual codes; unclassified (2 sources) Other general symptoms and signs; Translations: [Flu-like symptoms] Onset: 02-28-2024 Episodic Residual codes; unclassified (1 source) Asymptomatic menopausal state; Translations: [Postmenopausal] Onset: 03-14-2024 Episodic Results Test Name Value Interpretation Reference Range Facility MR/BMS.BPon 02-06-2025 MR/BMS.BP [address], [address] [place] [address] OFFICE VISIT Date of Service: 02/05/25 MR#: [id number] Acct: [id number] Name: EPI LANDAVERDE Rep #: [id number] : 1955 [facility] Age/Sex: 69/F Location: [facility] Status: Signed Intake Vital Signs 07/12/24 15:41 01/23/25 16:13 02/06/25 06:54 Height 5 ft 7 in 5 ft 7 in 5 ft 7 in BP Intake Visit Reasons: Follow up Allergies Sulfa (Sulfonamide Antibiotics) Allergy (Verified 11/11/24 17:41) Hives Have you fallen in the past year?: Yes PFSH Medical History Encounter for pre-operative cardiovascular [...] smoker HPI History of Present Illness HPI: Epi Landaverde (Beth) is a 69 year-old female returning for therapy. She reported that she was doing great and much better. Nasrin identified leaving the home for at least 1 week when became antagonistic. She reported that this resulted in him wanting to work on their marriage and them beginning couples counseling. Nasrin identified times of continued difficulties in the relationship but also times of improved interactions and feeling increased hope. She reported significant support from her friend as well as her confucianism. Nasrin stated that parents' home had sold and experiencing feelings of loss and sadness. She was tearful when discussing this. The main themes of the session were difficulties in the marriage, addressing ongoing conflicts in the marriage, exploration of life experiences and self-understanding, and exploration and expression of recent loss. Encouraged verbalization of emotions while providing support. Normalized emotions. Reinforced participation in couples counseling and utilization of supports. Explored current concerns about interactions with since returning home encouraging Nasrin to address concerns in couples counseling when appropriate. Explored life events she believed created vulnerability and impacted her interactions with her . Reinforced times of increased self-care. Worked on ongoing coping and self-care. Reinforced actions Nasrin is taking to assist with grieving loss of childhood home including ways to honor the home and her parents. No SI. Future-oriented. Exam Mental Status Exam - Psych Appearance casually dressed and adequately groomed Attitude cooperative, calm and engaged Activity/Motor Behavior appropriate eye contact and fidgeting (Appeared due to pain and difficulty sitting comfortably.) Speech regular rate, regular volume and regular prosody Mood sad (Related to loss of childhood home.), OK (Increased positive emotions and hope.) and anxious (Related to marital stressors.) Affect full range and tearful Thought Process linear, logical and coherent Thought [...] effectiveness. Pt. to call 911, call suicide preventi (more content not included)... Normal [facility] MR/BMS.BPon 01-23-2025 MR/BMS.BP [facility] [address], [address] [place] [address] OFFICE VISIT Date of Service: 01/22/25 MR#: [id number] Acct: [id number] Name: EPI LANDAVERDE Rep #: [id number] : 1955 [facility] Age/Sex: 69/F [facility] Status: Signed Intake Vital Signs 07/12/24 15:41 11/11/24 17:37 01/23/25 16:13 Height 5 ft 7 in 5 ft 7 in 5 ft 7 in BP Intake Visit Reasons: Follow up Allergies Sulfa (Sulfonamide Antibiotics) Allergy (Verified 11/11/24 17:41) Hives Have you fallen in the past year?: Yes [facility] History Encounter for pre-operative cardiovascular clearance [...] smoker HPI History of Present Illness HPI: Epi Landaverde (Beth) is a 69 year-old female returning for therapy. She reported that she was feeling better physically and had an increased positive mood. Nasrin stated that she had effectively implemented strategies discussed at the previous session for starting and breaking down tasks. She expressed sadness about daughter's living conditions, grandson's recent injuries, and 's treatment of her historically. Nasrin reported that 's behaviors had been less antagonistic over the last week stating this was a common cycle. She expressed anxiety about walking on eggshells. Nasrin identified trying to create some distance between herself and others' problems vs. taking on others' problems. Encouraged verbalization of emotions while providing support. Normalized emotions. Reinforced not assuming responsibility for others' emotions and focusing on what she can control. Worked on radical acceptance. Addressed thought patterns connecting her personal worth to her 's treatment of her using CBT interventions. Reinforced her use of skills. Nasrin is utilizing skills to increase action and reduce painful emotions in many areas. She continues to struggle with desire for to validate her worth and with hoping he will change his patterns. Nasrin became very tearful when discussing 's treatment of her. No SI. Future-oriented. Exam Mental Status Exam - Psych Appearance casually dressed and well kempt Attitude cooperative, calm and engaged Activity/Motor Behavior appropriate eye contact and fidgeting (Appeared due to pain and difficulty sitting comfortably.) Speech regular rate, regular volume and regular prosody Mood sad, OK and anxious Affect congruent and tearful Thought Process linear, logical and coherent Thought Content no delusions, no hallucinations and [...] anxiety and other negative emotions related to traumat (more content not included)... Normal [facility] MR/BMS.BPon 01-09-2025 MR/BMS.BP [facility] [address], [address] [place] [address] OFFICE VISIT Date of Service: 01/08/25 MR#: [id number] Acct: [id number] Name: EPI LANDAVERDE Rep #: [id number] : 1955 Provider: [facility] Justine S kruck Age/Sex: 69/F Location[facility] Status: Signed Intake Vital Signs 07/12/24 15:41 11/11/24 17:37 01/09/25 11:32 Height 5 ft 7 in 5 ft 7 in 5 ft 7 in BP Intake Visit Reasons: Follow up Allergies Sulfa (Sulfonamide Antibiotics) Allergy (Verified 11/11/24 17:41) Hives Have you fallen in the past year?: Yes PFSH Medical History Encounter for pre-operative cardiovascular [...] smoker HPI History of Present Illness HPI: Epi Landaverde (Beth) is a 69 year-old female returning for therapy. She reported a recent increase in depressive symptoms including sadness, reduced motivation, anhedonia, and loneliness. Nasrin reported a number of stressors including the following: recovery from recent knee surgery; interactions with siblings regarding parents' estate; grandson experiencing significant injuries in a serious accident; assisting daughter with moving; and 's continued use of antagonistic behaviors. She was tearful at times during the session. Encouraged verbalization of emotions while providing support. Normalized emotions. Worked on motivation providing psychoeducation on action creating motivation. Explored small actions Nasrin could take to increase her motivation. Worked on avoidance and procrastination using CBT interventions. Worked on self-care and coping. No SI. Future-oriented. Exam Mental Status Exam - Psych Appearance casually dressed and well kempt Attitude cooperative, calm and engaged Activity/Motor Behavior appropriate eye contact and fidgeting (Appeared due to pain and difficulty sitting comfortably.) Speech regular rate, regular volume and regular prosody Mood sad and depressed Affect congruent and tearful Thought Process linear, logical and coherent Thought [...] insight into how relationship may be influencing cu (more content not included)... Normal [facility] Synovial Fluid RBC, WBC AND Diffon 11-20-2024 PATH COM/SYFL N/A Normal [facility] Comment on above: Order Comment: Comme nts: Rt Knee Result Comment: AMENDED REPORT 11/20/24 0927 PATH COM/SYFL previously reported as: May follow Performed By: #### L 200.0400, L200.4175, M100.4001, M100.2900, M100.2000 ####[facility] [address] [place], [address] Culture, Anaerobic Any Sourc darlene 11-17-2024 CUAN no Rt Knee No anaerobic bacteria isolated. Normal [facility] Comment on above: Performed By: #### L 200.0400, L200.4175, M100.4001, M100.2900, M100.2000 ####[facility] [address] [place], [address] Crystals, Body Fluidon 11-16 PATH REV Reviewed Normal [facility] Comment on above: Order Comment: Comme nts: Rt Knee Result Comment: ACUT E INFLAMMATION. NEGATIVE FOR CRYSTALS. Heather Rodriguez MD 11/16/2024 AMENDED REPORT 11/16/24 1004 PATH REV previously reported as: Will follow Performed By: #### L 200.0400, L200.4175, M100.4001, M100.2900, M100.1999 ####[facility] [address] [place], [address] Body Fluid Culton 11-12-2024 BFC no Rt Knee Culture exhibits no growth. Normal [facility] Comment on above: Performed By: #### L 200.0400, L200.4175, M100.4001, M100.2900, M100.1999 ####[facility] [address] [place], [address] Gram Stainon 11-12-2024 GS no Rt Knee Gram Stain No organisms seen 4+ White Blood Cells 4+ Red Blood Cells Normal [facility] Comment on above: Performed By: #### L 200.0400, L200.4175, M100.4001, M100.2900, M100.1999 ####[facility] [address] [place], [address] Basic Metabolic Profile (BMP )on 11-11-2024 BUN/CRE 20.9 RATIO High 10-20 [facility] Comment on above: Performed By: #### L 501.6710, L101.9900, L100.0100, L500.2500 ####[facility] [address] [place], [address] Calcium [Mass/Vol] 9.4 mg/dL Normal 7.6-11.0 [facility] Comment on above: Performed By: #### L 501.6710, L101.9900, L100.0100, L500.2500 ####[facility] [address] [place], [address] Chloride [Moles/Vol] 98 mmol/L Normal 98-108 [facility] Comment on above: Performed By: #### L 501.6710, L101.9900, L100.0100, L500.2500 ####[facility] [address] [place], [address] CO2 [Moles/Vol] 23.9 mmol/L Normal 21.0-32.0 [facility] Comment on above: Performed By: #### L 501.6710, L101.9900, L100.0100, L500.2500 ####[facility] [address] [place], [address] Creatinine [Mass/Vol] 1.08 mg/dL Normal 0.70-1.20 [facility] Comment on above: Performed By: #### L 501.6710, L101.9900, L100.0100, L500.2500 ####[facility] [address] [place], [address] ECRCL 54.94 ml/min Normal 50-250 [facility] Comment on above: Performed By: #### L 501.6710, L101.9900, L100.0100, L500.2500 ####[facility] [address] [place], [address] GAP 13 Normal 5-15 [facility] Comment on above: Performed By: #### L 501.6710, L101.9900, L100.0100, L500.2500 ####[facility] [address] [place], [address] GFR/1.73 sq M.predicted among non-blacks MDRD (S/P/Bld) [Vol rate/Area] 56 mL/min/{1.73_m2} Low >60 [facility] Comment on above: Result Comment: mL/m in/1.73m2 CKD-EPI Creatinine Equation (2020) Performed By: #### L 501.6710, L101.9900, L100.0100, L500.2500 ####[facility] [address] [place], [address] Glucose [Mass/Vol] 109 mg/dL High 70-99 [facility] Comment on above: Performed By: #### L 501.6710, L101.9900, L100.0100, L500.2500 ####[facility] [address] [place], [address] Potassium [Moles/Vol] 3.4 mmol/L Normal 3.3-5.1 [facility] Comment on above: Performed By: #### L 501.6710, L101.9900, L100.0100, L500.2500 ####[facility] [address] [place], [address] Sodium [Moles/Vol] 135 mmol/L Normal 133-145 [facility] Comment on above: Performed By: #### L 501.6710, L101.9900, L100.0100, L500.2500 ####[facility] [address] [place], [address] Urea nitrogen [Mass/Vol] 23 mg/dL High 4-19 [facility] Comment on above: Performed By: #### L 501.6710, L101.9900, L100.0100, L500.2500 ####[facility] [address] [place], [address] CBC W/Diff, Automatedon 08-0 9-2024 Absolute Lymph 1.68 X10 3/uL Normal 0.83-4.51 [facility] Comment on above: Performed By: #### L 501.6710, L101.9900, L100.0100, L500.2500 #### [facility] Laboratory [address] [place], [address] Absolute Neut 9.4 X10 3/uL High 2.0-7.7 [facility] Comment on above: Performed By: #### L 501.6710, L101.9900, L100.0100, L500.2500 #### [facility] Laboratory [address] [place], [address] Basophils/100 WBC (Bld) 0.2 % Normal 0-1 [facility] Comment on above: Performed By: #### L 501.6710, L101.9900, L100.0100, L500.2500 #### [facility] Laboratory [address] [place], [address] Eosinophils/100 WBC (Bld) 0.7 % Normal 0-5 [facility] Comment on above: Performed By: #### L 501.6710, L101.9900, L100.0100, L500.2500 #### [facility] Laboratory [address] [place], [address] Erythrocyte distribution width (RBC) [Ratio] 13.0 % Normal 11.6-14.6 [facility] Comment on above: Performed By: #### L 501.6710, L101.9900, L100.0100, L500.2500 #### [facility] Laboratory [address] [place], [address] Hematocrit (Bld) [Volume fraction] 26.2 % Low 37-47 [facility] Comment on above: Performed By: #### L 501.6710, L101.9900, L100.0100, L500.2500 #### [facility] Laboratory [address] [place], [address] Hemoglobin (Bld) [Mass/Vol] 8.4 g/dL Low 12.0-15.0 [facility] Comment on above: Performed By: #### L 501.6710, L101.9900, L100.0100, L500.2500 #### [facility] Laboratory [address] [place], [address] IG% 0.400 Normal 0.0-0.9 [facility] Comment on above: Result Comment: IG% - Immature Granulocytes (promyelocytes, myelocytes and metamyelocytes) > 1% indicates that a LEFT SHIFT is Present. Performed By: #### L 501.6710, L101.9900, L100.0100, L500.2500 #### [facility] Laboratory [address] [place], [address] Lymphocytes/100 WBC (Bld) 13.6 % Low 19-41 [facility] Comment on above: Performed By: #### L 501.6710, L101.9900, L100.0100, L500.2500 #### [facility] Laboratory [address] [place], [address] MCH (RBC) [Entitic mass] 24.1 pg Low 27.0-32.0 [facility] Comment on above: Performed By: #### L 501.6710, L101.9900, L100.0100, L500.2500 #### [facility] Laboratory [address] [place], [address] MCHC (RBC) [Mass/Vol] 32.1 g/dL Normal 32-36 [facility] Comment on above: Performed By: #### L 501.6710, L101.9900, L100.0100, L500.2500 #### [facility] Laboratory [address] [place], [address] MCV (RBC) [Entitic vol] 75.3 fL Low 81-99 [facility] Comment on above: Performed By: #### L 501.6710, L101.9900, L100.0100, L500.2500 #### [facility] Laboratory [address] [place], [address] Monocytes/100 WBC (Bld) 8.8 % Normal 0-10 [facility] Comment on above: Performed By: #### L 501.6710, L101.9900, L100.0100, L500.2500 #### [facility] Laboratory [address] [place], [address] Neutrophils/100 WBC (Bld) 76.3 % High 47-70 [facility] Comment on above: Performed By: #### L 501.6710, L101.9900, L100.0100, L500.2500 #### [facility] Laboratory [address] [place], [address] Nucleated RBC (Bld) [#/Vol] 0 10*3/uL Normal 0-5 [facility] Comment on above: Performed By: #### L 501.6710, L101.9900, L100.0100, L500.2500 #### [facility] Laboratory [address] [place], [address] Platelet mean volume (Bld) [Entitic vol] 8.7 fL Normal 6.2-12.0 [facility] Comment on above: Performed By: #### L 501.6710, L101.9900, L100.0100, L500.2500 #### [facility] Laboratory [address] [place], [address] Platelets (Bld) [#/Vol] 390 10*3/uL Normal 150-450 [facility] Comment on above: Performed By: #### L 501.6710, L101.9900, L100.0100, L500.2500 #### [facility] Laboratory [address] [place], [address] RBC (Bld) [#/Vol] 3.48 10*6/uL Low 4.2-5.4 [facility] Comment on above: Performed By: #### L 501.6710, L101.9900, L100.0100, L500.2500 #### [facility] Laboratory [address] [place], [address] RDW SD 35.4 fl Normal 35.1-43.9 [facility] Comment on above: Performed By: #### L 501.6710, L101.9900, L100.0100, L500.2500 #### [facility] Laboratory [address] [place], [address] WBC (Bld) [#/Vol] 12.3 10*3/uL High 4.4-11.0 [facility] Comment on above: Performed By: #### L 501.6710, L101.9900, L100.0100, L500.2500 #### [facility] Laboratory [address] [place], [address] CRPon 11-11-2024 C-REACTIVE PROT 298.00 mg/L High 0.0-3.0 [facility] Comment on above: Performed By: #### L 501.6710, L101.9900, L100.0100, L500.2500 ####[facility] [address] [place], [address] Emergency Department Summary on 11-11-2024 Emergency Department Summary [facility] Medical Records Department [address] [place] [address] Emergency Department Summary 11/11/24 MR#: [id number] Acct: [id number] Name: BISHOPEPICIARAN ALEXANDRA Rep #: [id number] : 1955 68 From: Carolee Proctor MD PCP: Dr. Eriberto Tovar MD Status:DEP ER Location: ED HPI History of Present Illness Chief Complaint: Lower Extremity Injury Narrative Narrative: Patient is a 68-year-old female presenting emergency department for concern of cellulitis of her right leg. Patient recently had a right total knee replacement by Dr. Barrios on Wednesday, 4 days ag o. States that she has been recovering well. Denies any fever or chills. States that her daughter noticed some redness behind her right thigh today and recommended that she come to the ED. patient states that is warm to the touch. She denies any history of DVT or PE. States that the knee itself is not more painful than it has been. [facility] Medical History Encounter for pre-operative cardiovascular clearance [...] D3) 50 50 mcg PO DAILY Supplement 1 08/23/24 History mcg (2,000 unit) capsule ferrous [...] mg capsule 100 mg PO DAILY Supplement 1 08/23/24 History melatonin 10 mg capsule 10 mg PO QHS PRN PRN sleep 1 08/22/24 History vitamin E mixed 400 unit capsule [...] 81 mg PO DAILY Antiplatelet 08/23/24 History hydrocodone-acetaminophen 5-325mg 1 tab PO Q6H PRN pain 5 days #20 08/24/24 Unknown Rx 5mg-325mg tabs Allergy/AdvReac Type Severity Reaction Status Date / Time Sulfa (Sulfonamide Allergy Hives Verified 11/11/24 17:41 Antibiotics) Family History Mother Heart disease Surgical [...] History of bunionectomy of left great toe Social History household members: spouse Smoking Status: Never smoker ROS ROS ED ROS Narrative see HPI EXAM Physical Exam Narrative Exam Narrative: Vital signs: Reviewed General: Alert and oriented. No acute distress HEENT: Head is normocephalic and atraumatic, sinuses nontender, pupils equal round and reactive. Nares are patent. Oropharynx and throat exams normal. Neck: Supple without lymphadenopathy nontender Cardiovascular: Regular rate and rhythm, no murmurs. No rubs or gallops. Normal S1 a (more content not included)... Normal [facility] Erythrocyte Sed Rateon 11-11 SED RATE 80 mm/hr High 0-30 [facility] Comment on above: Performed By: #### L 501.6710, L101.9900, L100.0100, L500.2500 #### [facility] Laboratory [address] [place], [address] .Auto Diffon 11-09-2024 Basophil, Absolute 0.0 10 3/mcL Normal 0.0-0.[address] [facility] Comment on above: Performed By: #### A SHA CONWAY #### [address] [address] Basophils/100 WBC (Bld) 0.1 % Normal 0.0-2.5 [facility] Comment on above: Performed By: #### A SHA CONWAY #### [address] [address] Eosinophil, Absolute 0.0 10 3/mcL Normal 0.0-0.7 [facility] Comment on above: Performed By: #### A SHA CONWAY #### [address] [address] Eosinophils/100 WBC (Bld) 0.2 % Normal 0.0-6.0 [facility] Comment on above: Performed By: #### A SHA CONWAY #### [address] [address] Lymphocyte, Absolute 1.3 10 3/mcL Normal 0.9-4.3 [facility] Comment on above: Performed By: #### A SHA CONWAY #### [address] [address] Lymphocytes/100 WBC (Bld) 10.4 % Low 20.0-40.0 [facility] Comment on above: Performed By: #### A ZORAIDA ABSGEL #### [address] [address] Monocyte, Absolute 1.8 10 3/mcL High 0.1-1.[address] [facility] Comment on above: Performed By: #### A ZOARIDA ABSGEL #### [address] [address] Monocytes/100 WBC (Bld) 14.0 % High 2.0-13.0 [facility] Comment on above: Performed By: #### A ZORAIDA ABSGEL #### [address] [address] Neutrophils/100 WBC (Bld) 75.3 % High 50.0-75.0 [facility] Comment on above: Performed By: #### A ZORAIDA ABSGEL #### [address] [address] .GFRon 11-09-2024 Estimated Glomerular Filtration Rate 66 ml/min/1.73sqm Normal [facility] Comment on above: Result Comment: Stages of [...] the eGFR results. Performed By: #### A ZORAIDA ABSGEL #### [address] [address] .NEUABSon 11-09-2024 Neutrophil, Absolute 9.5 10 3/mcL High 2.3-8.1 [facility] Comment on above: Performed By: #### A SHA CONWAY #### [address] [address] BMPon 11-09-2024 BUN/Creatinine Ratio 17 ratio Normal 7-27 [facility] Comment on above: Performed By: #### A SHA CONWAY #### [address] [address] Calcium [Mass/Vol] 8.7 mg/dL Normal 8.4-10.2 [facility] Comment on above: Performed By: #### A SHA CONWAY #### [place] [id number] Chloride [Moles/Vol] 101 mmol/L Normal 98-107 [facility] Comment on above: Performed By: #### A SHA CONWAY #### [address] [address] CO2 [Moles/Vol] 31 mmol/L Normal 23-31 [facility] Comment on above: Performed By: #### A SHA CONWAY #### [address] [address] Creatinine [Mass/Vol] 0.94 mg/dL Normal 0.51-0.95 [facility] Comment on above: Performed By: #### A SHA CONWAY #### [address] [address] Electrolyte Balance 5.0 mEq/L Normal 4.0-15.0 [facility] Comment on above: Performed By: #### A SHA CONWAY #### [place] [id number] Glucose [Mass/Vol] 116 mg/dL High 80-115 [facility] Comment on above: Performed By: #### A SHA CONWAY #### [address] [address] Potassium [Moles/Vol] 4.1 mmol/L Normal 3.5-5.1 [facility] Comment on above: Performed By: #### A SHA CONWAY #### [address] [address] Sodium [Moles/Vol] 137 mmol/L Normal 136-145 [facility] Comment on above: Performed By: #### A SHA CONWAY #### [place] [address] Urea nitrogen [Mass/Vol] 16 mg/dL Normal 7-18 [facility] Comment on above: Performed By: #### A SHA CONWAY #### [place] [address] CBCon 11-09-2024 Erythrocyte distribution width (RBC) [Ratio] 13.1 % Normal 11.5-15.5 [facility] Comment on above: Performed By: #### F ERR, GFR, FES, CBC, ANEU, BMP, ADIFF #### [place] [id number] Hematocrit (Bld) [Volume fraction] 27.3 % Low 34.0-46.0 [facility] Comment on above: Performed By: #### F ERR, GFR, FES, CBC, ANEU, BMP, ADIFF #### [address] [address] Hgb 8.7 G/dL Low 12.0-16.0 [facility] Comment on above: Performed By: #### F ERR, GFR, FES, CBC, ANEU, BMP, ADIFF #### [address] [address] MCH (RBC) [Entitic mass] 24.1 pg Low 27.0-33.0 [facility] Comment on above: Performed By: #### F ERR, GFR, FES, CBC, ANEU, BMP, ADIFF #### [place] [address] MCHC 31.8 G/dL Low 32.0-36.0 [facility] Comment on above: Performed By: #### F ERR, GFR, FES, CBC, ANEU, BMP, ADIFF #### [address] [address] MCV (RBC) [Entitic vol] 75.7 fL Low 80.0-99.0 [facility] Comment on above: Performed By: #### F ERR, GFR, FES, CBC, ANEU, BMP, ADIFF #### [address] [address] Platelet 286 10 3/mcL Normal 150-450 [facility] Comment on above: Performed By: #### F ERR, GFR, FES, CBC, ANEU, BMP, ADIFF #### [address] [address] Platelet mean volume (Bld) [Entitic vol] 7.0 fL Normal 6.6-10.5 [facility] Comment on above: Performed By: #### F ERR, GFR, FES, CBC, ANEU, BMP, ADIFF #### [address] [address] RBC 3.61 10 6/mcL Low 4.10-5.30 [facility] Comment on above: Performed By: #### F ERR, GFR, FES, CBC, ANEU, BMP, ADIFF #### [address] [address] WBC 12.5 10 3/mcL High 4.5-10.8 [facility] Comment on above: Performed By: #### F ERR, GFR, FES, CBC, ANEU, BMP, ADIFF #### [address] [address] Trina 11-09-2024 Ferritin [Mass/Vol] 196.0 ng/mL Normal 8.0-252.[address] [facility] Comment on above: Performed By: #### A SHA CONWAY #### [address] [address] FESon 11-09-2024 Iron [Mass/Vol] 7 ug/dL Low 50-170 [facility] Comment on above: Performed By: #### A SHA CONWAY #### [facility] [address] [place], [place] [address] Iron Sat 3 % Normal [facility] Comment on above: Performed By: #### A SHA CONWAY #### [facility] [address] [place], [place] [address] TIBC 223 mcg/dL Low 250-450 [facility] Comment on above: Performed By: #### A SHA CONWAY #### [facility] [address] [place], [place] [address] LABORATORYOrdered By: SYSTEM SYSTEM on 11-09-2024 Basophils [...] Basophil, Absolute 0.0 10 3/mcL Normal 0.0-0.[address] [facility] Comment on above: Performed By: #### B MP, GFR, ADIFF, ANEU, CBC #### [address] [address] Basophils/100 WBC (Bld) 0.1 % Normal 0.0-2.5 [facility] Comment on above: Performed By: #### B MP, GFR, ADIFF, ANEU, CBC #### [address] [address] Eosinophil, Absolute 0.0 10 3/mcL Normal 0.0-0.7 [facility] Comment on above: Performed By: #### B MP, GFR, ADIFF, ANEU, CBC #### [address] [address] Eosinophils/100 WBC (Bld) 0.3 % Normal 0.0-6.0 [facility] Comment on above: Performed By: #### B MP, GFR, ADIFF, ANEU, CBC #### [address] [address] Lymphocyte, Absolute 2.0 10 3/mcL Normal 0.9-4.3 [facility] Comment on above: Performed By: #### B MP, GFR, ADIFF, ANEU, CBC #### [address] [address] Lymphocytes/100 WBC (Bld) 14.3 % Low 20.0-40.0 [facility] Comment on above: Performed By: #### B MP, GFR, ADIFF, ANEU, CBC #### [address] [address] Monocyte, Absolute 1.3 10 3/mcL Normal 0.1-1.[address] [facility] Comment on above: Performed By: #### B MP, GFR, ADIFF, ANEU, CBC #### [address] [address] Monocytes/100 WBC (Bld) 9.4 % Normal 2.0-13.0 [facility] Comment on above: Performed By: #### B MP, GFR, ADIFF, ANEU, CBC #### [address] [address] Neutrophils/100 WBC (Bld) 75.9 % High 50.0-75.0 [facility] Comment on above: Performed By: #### B MP, GFR, ADIFF, ANEU, CBC #### [address] [address] .GFRon 11-08-2024 Estimated Glomerular Filtration Rate 70 ml/min/1.73sqm Normal [facility] Comment on above: Result Comment: Stages of [...] B MP, GFR, ADIFF, ANEU, CBC #### [address] [address] .NEUABSon 11-08-2024 Neutrophil, Absolute 10.8 10 3/mcL High 2.3-8.1 [facility] Comment on above: Performed By: #### B MP, GFR, ADIFF, ANEU, CBC #### [address] [address] BMPon 11-08-2024 BUN/Creatinine Ratio 23 ratio Normal 7-27 [facility] Comment on above: Performed By: #### B MP, GFR, ADIFF, ANEU, CBC #### [address] [address] Calcium [Mass/Vol] 9.1 mg/dL Normal 8.4-10.2 [facility] Comment on above: Performed By: #### B MP, GFR, ADIFF, ANEU, CBC #### [address] [address] Chloride [Moles/Vol] 103 mmol/L Normal 98-107 [facility] Comment on above: Performed By: #### B MP, GFR, ADIFF, ANEU, CBC #### [address] [address] CO2 [Moles/Vol] 28 mmol/L Normal 23-31 [facility] Comment on above: Performed By: #### B MP, GFR, ADIFF, ANEU, CBC #### [address] [address] Creatinine [Mass/Vol] 0.90 mg/dL Normal 0.51-0.95 [facility] Comment on above: Performed By: #### B MP, GFR, ADIFF, ANEU, CBC #### [address] [address] Electrolyte Balance 6.0 mEq/L Normal 4.0-15.0 [facility] Comment on above: Performed By: #### B MP, GFR, ADIFF, ANEU, CBC #### [address] [address] Glucose [Mass/Vol] 91 mg/dL Normal 80-115 [facility] Comment on above: Performed By: #### B MP, GFR, ADIFF, ANEU, CBC #### [place] [address] Potassium [Moles/Vol] 4.8 mmol/L Normal 3.5-5.1 [facility] Comment on above: Performed By: #### B MP, GFR, ADIFF, ANEU, CBC #### [place] [address] Sodium [Moles/Vol] 137 mmol/L Normal 136-145 [facility] Comment on above: Performed By: #### B MP, GFR, ADIFF, ANEU, CBC #### [place] [address] Urea nitrogen [Mass/Vol] 21 mg/dL High 7-18 [facility] Comment on above: Performed By: #### B MP, GFR, ADIFF, ANEU, CBC #### [place] [address] CBCon 11-08-2024 Erythrocyte distribution width (RBC) [Ratio] 13.0 % Normal 11.5-15.5 [facility] Comment on above: Performed By: #### B MP, GFR, ADIFF, ANEU, CBC #### [place] [address] Hematocrit (Bld) [Volume fraction] 26.9 % Low 34.0-46.0 [facility] Comment on above: Performed By: #### B MP, GFR, ADIFF, ANEU, CBC #### [place] [address] Hgb 8.5 G/dL Low 12.0-16.0 [facility] Comment on above: Performed By: #### B MP, GFR, ADIFF, ANEU, CBC #### [place] [address] MCH (RBC) [Entitic mass] 24.2 pg Low 27.0-33.0 [facility] Comment on above: Performed By: #### B MP, GFR, ADIFF, ANEU, CBC #### [address] [address] MCHC 31.7 G/dL Low 32.0-36.0 [facility] Comment on above: Performed By: #### B MP, GFR, ADIFF, ANEU, CBC #### [address] [address] MCV (RBC) [Entitic vol] 76.2 fL Low 80.0-99.0 [facility] Comment on above: Performed By: #### B MP, GFR, ADIFF, ANEU, CBC #### [place] [address] Platelet 284 10 3/mcL Normal 150-450 [facility] Comment on above: Performed By: #### B MP, GFR, ADIFF, ANEU, CBC #### [place] [address] Platelet mean volume (Bld) [Entitic vol] 6.9 fL Normal 6.6-10.5 [facility] Comment on above: Performed By: #### B MP, GFR, ADIFF, ANEU, CBC #### [address] [address] RBC 3.54 10 6/mcL Low 4.10-5.30 [facility] Comment on above: Performed By: #### B MP, GFR, ADIFF, ANEU, CBC #### [place] [address] WBC 14.2 10 3/mcL High 4.5-10.8 [facility] Comment on above: Performed By: #### B MP, GFR, ADIFF, ANEU, CBC #### [place] [address] LABORATORYOrdered By: SYSTEM SYSTEM on 11-08-2024 Basophils [...] 11-07-2024 ABO/Rh Interp Positive Invalid Interpretation Code [facility] Comment on above: Performed By: #### A SHA CONWAY #### [address] [address] ABS (Gel)on 11-07-2024 ABSC Interp (Gel) Negative Normal [facility] Comment on above: Performed By: #### A SHA CONWAY #### [address] [address] LABORATORYOrdered By: Kelly Mckeon on 11-07-2024 ABO and Rh group Nom (Bld) Blood group O Rh(D) positive Invalid Interpretation Code AO BB Auto SS Blood group antibody screen Ql Negative ABSC (11/07/24 6:53 AM) Normal AO BB Auto SS US ANESTHESIA BLOCKon 2024 US ANESTHESIA BLOCK ORIGINAL Images acquired, not reported on this accession number. Normal [facility] XR KNEE 1 OR 2 VIEWS RIGHTon [...] 10:22:36 AM Ordering Provider: JOSE L BARRIOS [facility] MR/BMS.BPon 11-03-2024 MR/BMS.BP [address], [address] [place] [address] OFFICE VISIT Date of Service: 11/02/24 MR#: [id number] Acct: [id number] Name: EPI LANDAVERDE Rep #: [id number] : 1955 Provider: [facility] Justine rubio Age/Sex: 68/F Location: [facility] Status: Signed Intake Vital Signs 05/23/24 07:04 10/13/24 13:02 11/03/24 10:47 Height 5 ft 7 in 5 ft 7 in 5 ft 7 in BP Intake Visit Reasons: Follow up Allergies Sulfa (Sulfonamide Antibiotics) Allergy (Verified 08/24/24 00:42) Hives Have you fallen in the past year?: Yes [facility] Medical History Encounter for pre-operative cardiovascular clearance [...] smoker HPI History of Present Illness HPI: Epi Landaverde (Beth) is a 68 year-old female returning for therapy. She is scheduled for a hip replacement on 11/07/2024. Epi reported anxiety about potential pain as well as 's ability and willingness to assist her following the surgery. Epi also had a medical appointment regarding her spinal stimulator, which has not been working. This will be addressed medically in the future. She reported that her has been increasingly antagonistic and that she has started to respond to his negative/hurtful comments by confronting him. She has contemplated ending the marriage. Epi expressed blame of self for his behaviors attributing them to not confronting his behaviors earlier in the marriage. Encouraged verbalization of emotions while providing support. Normalized emotions. Explored safety with Epi expressing not being fearful of her physical [...] to help identi (more content not included)... [facility] 10-23-[address] [facility] Telephone (FAMPWS) EPI LANDAVERDE ([id number]) 1955 F Date Time Provider Department 10/23/24 SANJAY YATES [facility] During your visit today, we recorded the following information about you: Fabi Garner LPN 10/23/2024 3:55 PM Signed Zoey with [facility] calls to check on pre-op form for knee surgery. Pt had pre-op appt 10/17/24. Zoey is re-faxing the form. Zoey would like form and lab results faxed to: [phone]. Fabi Garner LPN Allergies As of Date: 10/23/2024 Noted Allergy Reaction SULFA (SULFONAMIDE ANTIBIOTICS) 12/05/2004 4 - Hives Date Reviewed: 10/17/2024 Reviewed by: Sanjay Yates APRN.MEMORY CARE DIRECTOR - Fully Assessed Reason for Visit: Forms [913] Prescriptions as of 11/02/2024 - Ipratropium Megargel (ATROVENT) 21 mcg (0.03 %) nasal spray [...] ANEMIA NOS [D64.9] 06/01/2008 DISC DEGENERATION NOS [OZX6185] 06/04/2008 Unspecified sleep apnea [G47.30] 07/31/2008 02/25/2016 [...] menopausal or female climacteric st*01/12/2012 02/25/2016 Dyspareunia [BAW8149] 05/23/2012 Change in bowel habits [R19.4] 11/23/2013 02/25/2016 GERD (gastroesophageal reflux disease) [K21.9] 11/23/201304/30/2017 Obstructive sleep apnea [G47.33] Generalized anxiety disorder [F41.1] 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.*07/13/2023 Screen for colon cancer [Z12.11] 01/27/2024 Encounter Status:Closed by MARLEEN ENRIQUEZ on 11/02/24 Normal [facility] CBC W Auto Differential pane l (Bld)on 10-17-2024 Basophils (Bld) [#/Vol] 0.04 10*3/uL Normal <0.11 [facility] Comment on above: Order Comment: Speci men Type: BLOOD SPECIMENOrdering Facility: [facility] Address: [address] [place] [address] Performed By: #### 5 7021-8 ####[facility] LABCLIA [id number] [place] [address] [place] Basophils/100 WBC (Bld) 0.5 % Normal [facility] Comment on above: Order Comment: Speci men Type: BLOOD SPECIMENOrdering Facility: [facility] Address: [address] [place] [address] Performed By: #### 5 7021-8 ####[facility] LABCLIA [id number] [place] [address] [place] Differential cell count method Nom (Bld) Auto Normal [facility] Comment on above: Order Comment: Speci men Type: BLOOD SPECIMENOrdering Facility: [facility] Address: [address] [place] [address] Performed By: #### 5 7021-8 ####[facility] LABCLIA [id number] [place] [address] [place] Eosinophils (Bld) [#/Vol] 0.07 10*3/uL Normal <0.46 [facility] Comment on above: Order Comment: Speci men Type: BLOOD SPECIMENOrdering Facility: [facility] Address: [address] [place] [address] Performed By: #### 5 7021-8 ####[facility] LABCLIA [id number] [place] [address] [place] Eosinophils/100 WBC (Bld) 0.8 % Normal [facility] Comment on above: Order Comment: Speci men Type: BLOOD SPECIMENOrdering Facility: [facility] Address: [address] [place] [address] Performed By: #### 5 7021-8 ####[facility] LABIA [id number] [place] [address] [place] Erythrocyte distribution width (RBC) [Ratio] 13.9 % Normal 11.5-15.0 [facility] Comment on above: Order Comment: Speci men Type: BLOOD SPECIMENOrdering Facility: [facility] Address: [address] [place] [address] Performed By: #### 5 7021-8 ####[facility] LABIA [id number] [place] [address] [place] Hematocrit (Bld) [Volume fraction] 36.5 % Normal 36.0-46.0 [facility] Comment on above: Order Comment: Speci men Type: BLOOD SPECIMENOrdering Facility: [facility] Address: [address] [place] [address] Performed By: #### 5 7021-8 ####[facility] LABCLIA [id number] [place] [address] [place] Hemoglobin (Bld) [Mass/Vol] 11.2 g/dL Low 11.5-15.5 [facility] Comment on above: Order Comment: Speci men Type: BLOOD SPECIMENOrdering Facility: [facility] Address: [address] [place] [address] Performed By: #### 5 7021-8 ####[facility] LABCLIA [id number] [address] [place] [address] [place] Immature granulocytes (Bld) [#/Vol] 10*3/uL Normal <0.10 [facility] Comment on above: Order Comment: Speci men Type: BLOOD SPECIMENOrdering Facility: [facility] Address: [address] [place] [address] Performed By: #### 5 7021-8 ####[facility] LABCLIA [id number] [address], [place] [address] [place] Immature granulocytes/100 WBC (Bld) 0.2 % Normal [facility] Comment on above: Order Comment: Speci men Type: BLOOD SPECIMENOrdering Facility: [facility] Address: [address] [place] [address] Performed By: #### 5 7021-8 ####[facility] LABCLIA [id number] [place] [address] [place] Lymphocytes (Bld) [#/Vol] 2.40 10*3/uL Normal 1.00-4.00 [facility] Comment on above: Order Comment: Speci men Type: BLOOD SPECIMENOrdering Facility: [facility] Address: [address] [place] [address] Performed By: #### 5 7021-8 ####[facility] LABCLIA [id number] [address], [place] [address] [place] Lymphocytes/100 WBC (Bld) 28.5 % Normal [facility] Comment on above: Order Comment: Speci men Type: BLOOD SPECIMENOrdering Facility: [facility] Address: [address] [place] [address] Performed By: #### 5 7021-8 ####[facility] LABCLIA [id number] [place] [address] [place] MCH (RBC) [Entitic mass] 24.0 pg Low 26.0-34.0 [facility] Comment on above: Order Comment: Speci men Type: BLOOD SPECIMENOrdering Facility: [facility] Address: [address] [place] [address] Performed By: #### 5 7021-8 ####[facility] LABCLIA [id number] [place] [address] [place] MCHC (RBC) [Mass/Vol] 30.7 g/dL Normal 30.5-36.0 [facility] Comment on above: Order Comment: Speci men Type: BLOOD SPECIMENOrdering Facility: [facility] Address: [address] [place] [address] Performed By: #### 5 7021-8 ####[facility] LABIA [id number] [place] [address] [place] MCV (RBC) [Entitic vol] 78.2 fL Low 80.0-100.0 [facility] Comment on above: Order Comment: Speci men Type: BLOOD SPECIMENOrdering Facility: [facility] Address: [address] [place] [address] Performed By: #### 5 7021-8 ####[facility] LABCLIA [id number] [place] [address] [place] Monocytes (Bld) [#/Vol] 0.70 10*3/uL Normal <0.87 [facility] Comment on above: Order Comment: Speci men Type: BLOOD SPECIMENOrdering Facility: [facility] Address: [address] [place] [address] Performed By: #### 5 7021-8 ####[facility] LABCLIA [id number] [place] [address] [place] Monocytes/100 WBC (Bld) 8.3 % Normal [facility] Comment on above: Order Comment: Speci men Type: BLOOD SPECIMENOrdering Facility: [facility] Address: [address] [place] [address] Performed By: #### 5 7021-8 ####[facility] LABCLIA [id number] [address] [place] [address] [place] Neutrophils (Bld) [#/Vol] 5.20 10*3/uL Normal 1.45-7.50 [facility] Comment on above: Order Comment: Speci men Type: BLOOD SPECIMENOrdering Facility: [facility] Address: [address] [place] [address] Performed By: #### 5 7021-8 ####[facility] LABCLIA [id number] [address], [place] [address] [place] Neutrophils/100 WBC (Bld) 61.7 % Normal [facility] Comment on above: Order Comment: Speci men Type: BLOOD SPECIMENOrdering Facility: [facility] Address: [address] [place] [address] Performed By: #### 5 7021-8 ####[facility] LABCLIA [id number] [facility] [address], [place] [address] [place] Nucleated RBC (Bld) [#/Vol] 10*3/uL Normal <0.01 [facility] Comment on above: Order Comment: Speci men Type: BLOOD SPECIMENOrdering Facility: [facility] Address: [address] [place] [address] Performed By: #### 5 7021-8 ####[facility] LABCLIA [id number] [address], [place] [address] [place] Nucleated RBC/100 WBC (Bld) [Ratio] 0.0 /100 WBC Normal [facility] Comment on above: Order Comment: Speci men Type: BLOOD SPECIMENOrdering Facility: [facility] Address: [address] [place] [address] Performed By: #### 5 7021-8 ####[facility] LABCLIA [id number] [address], [facility] [place] Platelet mean volume (Bld) [Entitic vol] 9.5 fL Normal 9.0-12.7 [facility] Comment on above: Order Comment: Speci men Type: BLOOD SPECIMENOrdering Facility: [facility] Address: [address] [place] [address] Performed By: #### 5 7021-8 ####[facility] LABCLIA [id number] [place] [address] [place] Platelets (Bld) [#/Vol] 377 10*3/uL Normal 150-400 [facility] Comment on above: Order Comment: Speci men Type: BLOOD SPECIMENOrdering Facility: [facility] Address: [address] [place] [address] Performed By: #### 5 7021-8 ####[facility] LABIA [id number] [place] [address] [place] RBC (Bld) [#/Vol] 4.67 10*6/uL Normal 3.90-5.20 [facility] Comment on above: Order Comment: Speci men Type: BLOOD SPECIMENOrdering Facility: [facility] Address: [address] [place] [address] Performed By: #### 5 7021-8 ####[facility] LABIA [id number] [place] [address] [place] WBC (Bld) [#/Vol] 8.43 10*3/uL Normal 3.70-11.00 [facility] Comment on above: Order Comment: Speci men Type: BLOOD SPECIMENOrdering Facility: [facility] Address: [address] [place] [address] Performed By: #### 5 7021-8 ####[facility] LABIA [id number] [place] [id number] [facility] [place] CNOVon 10-17-2024 CNOV Office Visit (INTMWS ) EPI LANDAVERDE ([id number]) 1955 F Date Time Provider Department 10/17/24 2:20 PM SANJAY YATES During your visit today, we recorded the following information about you: Pulse Respiration Blood pressure Weight 77/minute 16/minute 102/58 78.7 kg Sanjay Yates APRN.CNS 10/23/2024 9:00 AM Addendum Subjective Patient ID: Nasrin is a 68 year old female who [...] g/dL 30. (more content not included)... Normal [facility] Comprehensive metabolic 2000 panelon 10-17-2024 Albumin [Mass/Vol] 4.3 g/dL Normal 3.9-4.9 [facility] Comment on above: Order Comment: Speci men Type: BLOOD SPECIMENOrdering Facility: [facility] Address: [address] [place] [address] Performed By: #### 2 4323-8 ####[facility] LABCLIA [id number] [place] [address] [place] ALP [Catalytic activity/Vol] 84 U/L Normal 34-123 [facility] Comment on above: Order Comment: Speci men Type: BLOOD SPECIMENOrdering Facility: [facility] Address: [address] [place] [address] Performed By: #### 2 4323-8 ####[facility] LABCLIA [id number] [place] [address] [place] ALT [Catalytic activity/Vol] 21 U/L Normal 7-38 [facility] Comment on above: Order Comment: Speci men Type: BLOOD SPECIMENOrdering Facility: [facility] Address: [address] [place] [id number] Performed By: #### 2 4323-8 ####[facility] LABCLIA [id number] [address] [place] [address] [place] Anion gap [Moles/Vol] 11 mmol/L Normal 8-15 [facility] Comment on above: Order Comment: Speci men Type: BLOOD SPECIMENOrdering Facility: [facility] Address: [address] [place] [address] Performed By: #### 2 4323-8 ####[facility] LABCLIA [id number] [address], [facility] [place] AST [Catalytic activity/Vol] 22 U/L Normal 13-35 [facility] Comment on above: Order Comment: Speci men Type: BLOOD SPECIMENOrdering Facility: [facility] Address: [address] [place], [place] [address] Performed By: #### 2 4323-8 ####[facility] LABCLIA [id number] [facility] [address], [facility] [place] Bilirubin [Mass/Vol] 0.2 mg/dL Normal 0.2-1.3 [facility] Comment on above: Order Comment: Speci men Type: BLOOD SPECIMENOrdering Facility: [facility] Address: [address] [place], [place] [address] Performed By: #### 2 4323-8 ####[facility] LABCLIA [id number] [facility] [address] [place] [address] [place] Calcium [Mass/Vol] 9.8 mg/dL Normal 8.5-10.2 [facility] Comment on above: Order Comment: Speci men Type: BLOOD SPECIMENOrdering Facility: [facility] Address: [address] [place], [place] [address] Performed By: #### 2 4323-8 ####[facility] LABCLIA [id number] [place] [id number] [place] Chloride [Moles/Vol] 101 mmol/L Normal 98-107 [facility] Comment on above: Order Comment: Speci men Type: BLOOD SPECIMENOrdering Facility: [facility] Address: [address] [place] [address] Performed By: #### 2 4323-8 ####[facility] LABCLIA [id number] [place] [id number] [place] CO2 [Moles/Vol] 26 mmol/L Normal 22-30 [facility] Comment on above: Order Comment: Speci men Type: BLOOD SPECIMENOrdering Facility: [facility] Address: [address] [place] [address] Performed By: #### 2 4323-8 ####[facility] LABCLIA [id number] [place] [id number] [place] Creatinine [Mass/Vol] 0.99 mg/dL High 0.58-0.96 [facility] Comment on above: Order Comment: Speci men Type: BLOOD SPECIMENOrdering Facility: [facility] Address: [address] [place] [address] Performed By: #### 2 4323-8 ####[facility] LABIA [id number] [place] [id number] [place] eGFRcr SerPlBld CKD-EPI 2020 62 mL/min/1.73m??? Normal >=60 [facility] Comment on above: Order Comment: Speci men Type: BLOOD SPECIMENOrdering Facility: [facility] Address: [address] [place] [address] Result Comment: Lani mated Glomerular Filtration Rate [...] actual GFR. Performed By: #### 2 4323-8 ####[facility] LABCLIA [id number] [address] [address] [place] Glucose [Mass/Vol] 86 mg/dL Normal 74-99 [facility] Comment on above: Order Comment: Speci men Type: BLOOD SPECIMENOrdering Facility: [facility] Address: [address] [place] [address] Result Comment: The [place] [employer] (ADA) provides guidance for cutoff [...] Standards of Medical Care in Diabetes 2016, [place] [employer]. Diabetes Care. 2016.39(Suppl 1). Performed By: #### 2 4323-8 ####[facility] LABCLIA [id number] [place] [address] [place] Potassium [Moles/Vol] 4.2 mmol/L Normal 3.7-5.1 [facility] Comment on above: Order Comment: Speci men Type: BLOOD SPECIMENOrdering Facility: [facility] Address: [address] [place] [address] Performed By: #### 2 4323-8 ####[facility] LABCLIA [id number] [address] [address] [place] Protein [Mass/Vol] 6.8 g/dL Normal 6.3-8.0 [facility] Comment on above: Order Comment: Speci men Type: BLOOD SPECIMENOrdering Facility: [facility] Address: [address] [place] [address] Performed By: #### 2 4323-8 ####[facility] LABCLIA [id number] [place] [id number] [place] Sodium [Moles/Vol] 138 mmol/L Normal 136-144 [facility] Comment on above: Order Comment: Speci men Type: BLOOD SPECIMENOrdering Facility: [facility] Address: [address] [place] [address] Performed By: #### 2 4323-8 ####[facility] LABCLIA [id number] [place] [id number] [place] Urea nitrogen [Mass/Vol] 27 mg/dL High 7-21 [facility] Comment on above: Order Comment: Speci men Type: BLOOD SPECIMENOrdering Facility: [facility] Address: [address] [place] [address] Performed By: #### 2 4323-8 ####[facility] LABCLIA [id number] [place] [id number] [place] MR/BMS.BPon 10-13-2024 MR/BMS.BP [address], [address] [place] [address] OFFICE VISIT Date of Service: 10/12/24 MR#: [id number] Acct: [id number] Name: EPI LANDAVERDE Rep #: [id number] : 1955 Provider: [facility] Justine rubio Age/Sex: 68/F [place] [facility]BP Status: Signed Intake Vital Signs 05/23/24 07:04 09/22/24 17:38 10/13/24 13:02 Height 5 ft 7 in 5 ft 7 in 5 ft 7 in BP Intake Visit Reasons: Follow up Allergies Sulfa (Sulfonamide Antibiotics) Allergy (Verified 08/24/24 00:42) Hives Have you fallen in the past year?: Yes [facility] Medical History Encounter for pre-operative cardiovascular clearance [...] smoker HPI History of Present Illness HPI: Epi Landaverde (Beth) is a 68 year-old female returning for therapy. She is scheduled for a knee replacement on 11/07/2024. Epi was tearful at times and presented as sad. She identified that has been antagonistic towards her resulting in negative thoughts about herself and ambivalence about the relationship. Epi reported some times of challenging his negative [...] role relatio (more content not included)... Normal [facility] MRSAPCRon 10-12-2024 MRSA (PCR) Not detected Normal Not Detected [facility] Comment on above: Result Comment: [place] [address] Performed By: #### A SHA CONWAY #### [address] [address] MRSA PCR Int See Below Normal [facility] Comment on above: Result Comment: Clinical Interpretation: [...] Performed By: #### A SHA CONWAY #### [address] [address] .Auto Diffon 10-11-2024 Basophil, Absolute 0.0 10 3/mcL Normal 0.0-0.[address] [facility] Comment on above: Performed By: #### A ZORAIDA ABSGEL #### [address] [address] Basophils/100 WBC (Bld) 0.2 % Normal 0.0-2.5 [facility] Comment on above: Performed By: #### A ZORAIDA ABSGEL #### [address] [address] Eosinophil, Absolute 0.0 10 3/mcL Normal 0.0-0.7 [facility] Comment on above: Performed By: #### A ZORAIDA ABSGEL #### [address] [address] Eosinophils/100 WBC (Bld) 0.2 % Normal 0.0-6.0 [facility] Comment on above: Performed By: #### A ZORAIDA ABSGEL #### [address] [address] Lymphocyte, Absolute 1.7 10 3/mcL Normal 0.9-4.3 [facility] Comment on above: Performed By: #### A ZORAIDA ABSGEL #### [address] [address] Lymphocytes/100 WBC (Bld) 21.3 % Normal 20.0-40.0 [facility] Comment on above: Performed By: #### A ZORAIDA ABSGEL #### [address] [address] Monocyte, Absolute 0.6 10 3/mcL Normal 0.1-1.[address] [facility] Comment on above: Performed By: #### A ZORAIDA ABSGEL #### [address] [address] Monocytes/100 WBC (Bld) 7.5 % Normal 2.0-13.0 [facility] Comment on above: Performed By: #### A ZORAIDA ABSGEL #### [address] [address] Neutrophils/100 WBC (Bld) 70.8 % Normal 50.0-75.0 [facility] Comment on above: Performed By: #### A SHA CONWAY #### [address] [address] .GFRon 10-11-2024 Estimated Glomerular Filtration Rate 61 ml/min/1.73sqm Normal [facility] Comment on above: Result Comment: Stages of [...] Performed By: #### A SHA CONWAY #### [address] [address] .NEUABSon 10-11-2024 Neutrophil, Absolute 5.6 10 3/mcL Normal 2.3-8.1 [facility] Comment on above: Performed By: #### A SHA CONWAY #### [address] [address] ABO/Rh (Gel)on 10-11-2024 ABO/Rh Interp Positive Invalid Interpretation Code [facility] Comment on above: Performed By: #### A SHA CONWAY #### [address] [address] ABS (Gel)on 10-11-2024 ABSC Interp (Gel) Negative Normal [facility] Comment on above: Performed By: #### A SHA CONWAY #### [address] [address] ALBon 10-11-2024 Albumin Level 3.8 G/dL Normal 3.4-4.8 [facility] Comment on above: Performed By: #### SHA VILLA #### [address] [address] BMPon 10-11-2024 BUN/Creatinine Ratio 23 ratio Normal 7-27 [facility] Comment on above: Performed By: #### A SHA CONWAY #### [address] [address] Calcium [Mass/Vol] 9.2 mg/dL Normal 8.4-10.2 [facility] Comment on above: Performed By: #### A SHA CONWAY #### [address] [address] Chloride [Moles/Vol] 101 mmol/L Normal 98-107 [facility] Comment on above: Performed By: #### A SHA CONWAY #### [address] [address] CO2 [Moles/Vol] 29 mmol/L Normal 23-31 [facility] Comment on above: Performed By: #### A SHA CONWAY #### [address] [address] Creatinine [Mass/Vol] 1.01 mg/dL High 0.51-0.95 [facility] Comment on above: Performed By: #### A SHA CONWAY #### [address] [address] Electrolyte Balance 8.0 mEq/L Normal 4.0-15.0 [facility] Comment on above: Performed By: #### A SHA CONWAY #### [address] [address] Glucose [Mass/Vol] 94 mg/dL Normal 80-115 [facility] Comment on above: Performed By: #### A SHA CONWAY #### [address] [address] Potassium [Moles/Vol] 4.4 mmol/L Normal 3.5-5.1 [facility] Comment on above: Performed By: #### SHA VILLA #### [place] [id number] Sodium [Moles/Vol] 138 mmol/L Normal 136-145 [facility] Comment on above: Performed By: #### A SHA CONWAY #### [address] [address] Urea nitrogen [Mass/Vol] 23 mg/dL High 7-18 [facility] Comment on above: Performed By: #### A SHA CONWAY #### [address] [address] CBCon 10-11-2024 Erythrocyte distribution width (RBC) [Ratio] 13.5 % Normal 11.5-15.5 [facility] Comment on above: Order Comment: Pre-A dmission Testing Performed By: #### A SHA CONWAY #### [address] [address] Hematocrit (Bld) [Volume fraction] 37.5 % Normal 34.0-46.0 [facility] Comment on above: Order Comment: Pre-A dmission Testing Performed By: #### A SHA CONWAY #### [address] [address] Hgb 11.8 G/dL Low 12.0-16.0 [facility] Comment on above: Order Comment: Pre-A dmission Testing Performed By: #### A SHA CONWAY #### [address] [address] MCH (RBC) [Entitic mass] 23.8 pg Low 27.0-33.0 [facility] Comment on above: Order Comment: Pre-A dmission Testing Performed By: #### A SHA CONWAY #### [address] [address] MCHC 31.5 G/dL Low 32.0-36.0 [facility] Comment on above: Order Comment: Pre-A dmission Testing Performed By: #### A SHA CONWAY #### [address] [address] MCV (RBC) [Entitic vol] 75.6 fL Low 80.0-99.0 [facility] Comment on above: Order Comment: Pre-A dmission Testing Performed By: #### A SHA CONWAY #### [address] [address] Platelet 392 10 3/mcL Normal 150-450 [facility] Comment on above: Order Comment: Pre-A dmission Testing Performed By: #### A SHA CONWAY #### [address] [address] Platelet mean volume (Bld) [Entitic vol] 7.3 fL Normal 6.6-10.5 [facility] Comment on above: Order Comment: Pre-A dmission Testing Performed By: #### A SHA CONWAY #### [address] [address] RBC 4.96 10 6/mcL Normal 4.10-5.30 [facility] Comment on above: Order Comment: Pre-A dmission Testing Performed By: #### Lara SHA CONWAY #### [address] [address] WBC 7.9 10 3/mcL Normal 4.5-10.8 [facility] Comment on above: Order Comment: Pre-A dmission Testing Performed By: #### Lara TIFFANY CONWAYGEL #### [address] [address] LABORATORYOrdered By: Anjel Kang on 10-11-2024 ABO [...] 10^3/mcL AO Workflow SS MR/BMS.BPon 09-22-2024 MR/BMS.BP [address], [address] [place] [address] OFFICE VISIT Date of Service: 09/22/24 MR#: [id number] Acct: [id number] Name: EPI LANDAVERDE Rep #: [id number] : 1955 Provider: [facility] Justine rubio Age/Sex: 68/F Location[place] [facility] Status: Signed Intake Vital Signs 05/23/24 07:04 09/09/24 08:37 09/22/24 17:38 Height 5 ft 7 in 5 ft 7 in 5 ft 7 in BP Intake Visit Reasons: Follow up Allergies Sulfa (Sulfonamide Antibiotics) Allergy (Verified 08/24/24 00:42) Hives Have you fallen in the past year?: Yes (Reported falling in her mulch recently.) PFSH Medical History Encounter for pre-operative cardiovascular [...] smoker HPI History of Present Illness HPI: Epi Landaverde (Beth) is a 68 year-old female returning for therapy. She identified that she continues to run a low-grade fever. Her knee is healing, and she hopes to have knee surgery soon. Nasrin reported that her has been more antagonistic towards her noting antagonistic behaviors increase when she is more vulnerable. Encouraged verbalization of emotions while providing support. Normalized emotions. Nasrin identified regretting not asking for help or confronting certain statements. Worked on DBT skill coping ahead. Nasrin discussed agreeing to do things she does not want to do in hopes of pacifying . Explored impact of this on her. Worked on self-care and coping. Nasrin has worked on positive things for herself including watercolor painting and puzzles, which was reinforced. She reported that her spinal cord stimulator is not working properly, which she addressed with her physician. Nasrin identified that she and siblings plan to [...] cognitive therapy techniques, (more content not included)... [facility] (INTMWS ) EPI LANDAVERDE ([id number]) 1955 F Date Time Provider Department 09/18/24 1:20 PM SANJAY YATES During your visit today, we recorded the following information about you: Pulse Respiration Blood pressure Weight 82/minute 16/minute 114/67 78.4 kg Sanjay Yates APRN.MEMORY CARE DIRECTOR 09/18/2024 2:06 PM Signed Subjective Patient ID: Nasrin is a 68 year old female who [...] on current treatment, continue unchanged Sanjay Yates APRN.MEMORY CARE DIRECTOR Medical Decision Making: Problems: Moderate: 2+ stable [...] D deficiency [E55.9] Order(s):ADVANCE CARE PLAN DISCUSSION [[id number]] Order #: [id number]: 1 RSV PRINTED PHARMACY INSTRUCTIONS [[id number]] Order #: (more content not included)... Normal [facility] MR/BMS.BPon 09-09-2024 MR/BMS.BP [address], [address] [place] [address] OFFICE VISIT Date of Service: 09/08/24 MR#: [id number] Acct: [id number] Name: EPI LANDAVERDE Rep #: [id number] : 1955 Provider: JONATHON rubio Age/Sex: 68/F Location[place] [facility] Status: Signed Intake Vital Signs 05/23/24 07:04 08/24/24 00:32 09/09/24 08:37 Height 5 ft 7 in 5 ft 7 in 5 ft 7 in BP Intake Visit Reasons: Follow up Allergies Sulfa (Sulfonamide Antibiotics) Allergy (Verified 08/24/24 00:42) Hives Have you fallen in the past year?: No [facility] Medical History Encounter for pre-operative cardiovascular clearance [...] smoker HPI History of Present Illness HPI: Epi Landaverde (Beth) is a 68 year-old female returning for therapy. She identified recovering from recent hospitalization for unilateral primary osteoarthritis of left knee and hemarthrosis. Epi reported need for knee surgery but needing to improve health in several areas before this can occur. She identified that has been more antagonistic towards her stating this is the pattern when she is vulnerable. Epi presented with increased sadness and discouragement when [...] symptoms and medication effectiveness. (2) Depression: Plan: BH therapy using CBT, DBT, and ACT interventions [...] negative e (more content not included)... Normal [facility] Crystals, Body Fluidon 09-01 PATH REV Reviewed Normal [facility] Comment on above: Order Comment: Comme nts: Lt Knee Result Comment: PATH OLOGIST DIFFERNTIAL COUNT; 76% SEGMENTED NEUTROPHILS 14% LYMPHOCYTES 10% MONOCYTES/MACROPHAGES BLOOD FLUID. NEGATIVE FOR URATE CRYSTALS. Heather Rodriguez MD 09/01/2024 AMENDED REPORT 09/01/24 0907 PATH REV previously reported as: Will follow Performed By: #### L 200.0400, M100.4001, M100.2000, L200.4175, M100.2900 #### [facility] [address] [place], [address] CNOVon 08-31-2024 CNOV Office Visit (INTMWS ) EPI LANDAVERDE ([id number]) 1955 F Date Time Provider Department 08/31/24 3:00 PM YATES, SANJAY INTMWS During your visit today, we recorded the following information about you: Temperature Pulse Respiration Blood pressure 99 degrees 91/minute 16/minute 113/71 Weight 79.2 kg Sanjay Yates APRN.CNS 08/31/2024 4:33 PM Signed Subjective Patient ID: Nasrin is a 68 year old female who presents for Hospital F/U. HPI Presents today for hospital follow-up visit. She was seen at [facility] August 23 through August 24, 2024. She [...] - Multiple tests performed, all negative. - Shipping/Receiving Manager consulted due to abnormal EKGs; noted a [...] yoga, upper-nadine (more content not included)... Normal [facility] Body Fluid Culton 08-29-2024 BFC UNK UNK Lt Knee No growth in 5 days. Normal [facility] Comment on above: Performed By: #### L 200.0400, M100.4001, M100.2000, L200.4175, M100.2900 #### [facility] Laboratory [address] [place], [address] Culture, Anaerobic Any Sourc darlene 08-29-2024 CUAN UNK UNK Lt Knee No growth in 5 days. Normal [facility] Comment on above: Performed By: #### L 200.0400, M100.4001, M100.2000, L200.4175, M100.2900 #### [facility] Laboratory [address] [place], [address] Culture, Blood (WB)on 2024 CUB Blood cultures x2, f rom two different sites No growth in 5 days. Normal [facility] Comment on above: Performed By: #### M 200.1000 ####[facility] [address] [place], [address] 12 Lead EKGon 08-24-2024 12 Lead EKG [facility] Cardiovascular Services [address] [place] [address] 12 Lead EKG 08/24/24 0540 MR#: [id number] Acct: [id number] Name: EPI LANDAVERDE Rep #: [id number] : 1955 68 From: Tara Moser MD Attending Dr: Dr. Sanjay Moe DO Status: D IS IN Ordering Dr: Mark Sanchez MD Date: 08/24/24 Location: U Sex: F C Admitted: 08/23/24 Test Reason [...] Inferior leads Confirmed by MARICARMEN AGUILAR, XOCHITL ([id number]), associate entertainment editor DOREEN BOB ([id number]) on 08/29/2024 6:57:35 AM Referred By: Confirmed By: XOCHITL MOSER MD 08/29/24656 Date Tara Moser MD CC: Dr. Mark Sanchez MD; Dr. Eriberto Tovar MD; Dr. Sanjay Moe, DO Signed Normal [facility] CBC W/Diff, Automatedon 08-04 Absolute Lymph 0.97 X10 3/uL Normal 0.83-4.51 [facility] Comment on above: Performed By: #### L 100.0100, L500.4050, L501.2300 ####[facility] [address] [place], [address] Absolute Neut 12.2 X10 3/uL High 2.0-7.7 [facility] Comment on above: Performed By: #### L 100.0100, L500.4050, L501.2300 ####[facility] [address] [place], [address] Basophils/100 WBC (Bld) 0.1 % Normal 0-1 [facility] Comment on above: Performed By: #### L 100.0100, L500.4050, L501.2300 ####[facility] [address] [place], [address] Eosinophils/100 WBC (Bld) 0.0 % Normal 0-5 [facility] Comment on above: Performed By: #### L 100.0100, L500.4050, L501.2300 ####[facility] [address] [place], [address] Erythrocyte distribution width (RBC) [Ratio] 13.9 % Normal 11.6-14.6 [facility] Comment on above: Performed By: #### L 100.0100, L500.4050, L501.2300 ####[facility] [address] [place], [address] Hematocrit (Bld) [Volume fraction] 33.6 % Low 37-47 [facility] Comment on above: Performed By: #### L 100.0100, L500.4050, L501.2300 ####[facility] [address] [place], [address] Hemoglobin (Bld) [Mass/Vol] 10.3 g/dL Low 12.0-15.0 [facility] Comment on above: Performed By: #### L 100.0100, L500.4050, L501.2300 ####[facility] [address] [place], [address] IG% 0.400 Normal 0.0-0.9 [facility] Comment on above: Result Comment: IG% - Immature Granulocytes (promyelocytes, myelocytes and metamyelocytes) > 1% indicates that a LEFT SHIFT is Present. Performed By: #### L 100.0100, L500.4050, L501.2300 ####[facility] [address] [place], [address] Lymphocytes/100 WBC (Bld) 7.3 % Low 19-41 [facility] Comment on above: Performed By: #### L 100.0100, L500.4050, L501.2300 ####[facility] [address] [place], [address] MCH (RBC) [Entitic mass] 24.0 pg Low 27.0-32.0 [facility] Comment on above: Performed By: #### L 100.0100, L500.4050, L501.2300 ####[facility] [address] [place], [address] MCHC (RBC) [Mass/Vol] 30.7 g/dL Low 32-36 [facility] Comment on above: Performed By: #### L 100.0100, L500.4050, L501.2300 ####[facility] [address] [place], [address] MCV (RBC) [Entitic vol] 78.3 fL Low 81-99 [facility] Comment on above: Performed By: #### L 100.0100, L500.4050, L501.2300 ####[facility] [address] [place], [address] Monocytes/100 WBC (Bld) 0.7 % Normal 0-10 [facility] Comment on above: Performed By: #### L 100.0100, L500.4050, L501.2300 ####[facility] [address] [place], [address] Neutrophils/100 WBC (Bld) 91.5 % High 47-70 [facility] Comment on above: Performed By: #### L 100.0100, L500.4050, L501.2300 ####[facility] [address] [place], [address] Nucleated RBC (Bld) [#/Vol] 0 10*3/uL Normal 0-5 [facility] Comment on above: Performed By: #### L 100.0100, L500.4050, L501.2300 ####[facility] [address] [place], [address] Platelet mean volume (Bld) [Entitic vol] 8.7 fL Normal 6.2-12.0 [facility] Comment on above: Performed By: #### L 100.0100, L500.4050, L501.2300 ####[facility] [address] [place], [address] Platelets (Bld) [#/Vol] 346 10*3/uL Normal 150-450 [facility] Comment on above: Performed By: #### L 100.0100, L500.4050, L501.2300 ####[facility] [address] [place], [address] RBC (Bld) [#/Vol] 4.29 10*6/uL Normal 4.2-5.4 [facility] Comment on above: Performed By: #### L 100.0100, L500.4050, L501.2300 ####[facility] [address] [place], [address] RDW SD 39.8 fl Normal 35.1-43.9 [facility] Comment on above: Performed By: #### L 100.0100, L500.4050, L501.2300 ####[facility] [address] [place], [address] WBC (Bld) [#/Vol] 13.3 10*3/uL High 4.4-11.0 [facility] Comment on above: Performed By: #### L 100.0100, L500.4050, L501.2300 ####[facility] [address] [place], [address] CRPon 08-24-2024 C-REACTIVE PROT < 3.00 Normal 0.0-3.0 [facility] Comment on above: Performed By: #### L 501.6710, L501.5200, L501.9520, L503.6030 ####[facility] [address] [place], [address] Comprehensive Metabolic Prof [facility] 08-24-2024 Albumin [Mass/Vol] 3.9 g/dL Normal 3.4-4.8 [facility] Comment on above: Performed By: #### L 100.0100, L500.4050, L501.2300 ####[facility] [address] [place], [address] Albumin/Globulin [Mass ratio] 1.7 {ratio} Normal 0.9-2.4 [facility] Comment on above: Performed By: #### L 100.0100, L500.4050, L501.2300 ####[facility] [address] [place], [address] ALK PHOS 80 U/L Normal 35-104 [facility] Comment on above: Performed By: #### L 100.0100, L500.4050, L501.2300 ####[facility] [address] [place], [address] ALT [Catalytic activity/Vol] 24 U/L Normal <=34 [facility] Comment on above: Performed By: #### L 100.0100, L500.4050, L501.2300 ####[facility] [address] [place], [address] AST [Catalytic activity/Vol] 22 U/L Normal <=31 [facility] Comment on above: Performed By: #### L 100.0100, L500.4050, L501.2300 ####[facility] [address] [place], [address] Bilirubin [Mass/Vol] 0.17 mg/dL Normal 0.00-1.30 [facility] Comment on above: Performed By: #### L 100.0100, L500.4050, L501.2300 ####[facility] [address] [place], [address] BUN/CRE 16.3 RATIO Normal 10-20 [facility] Comment on above: Performed By: #### L 100.0100, L500.4050, L501.2300 ####[facility] [address] [place], [address] Calcium [Mass/Vol] 8.9 mg/dL Normal 7.6-11.0 [facility] Comment on above: Performed By: #### L 100.0100, L500.4050, L501.2300 ####[facility] [address] [place], [address] Chloride [Moles/Vol] 107 mmol/L Normal 98-108 [facility] Comment on above: Performed By: #### L 100.0100, L500.4050, L501.2300 ####[facility] [address] [place], [address] CO2 [Moles/Vol] 22.1 mmol/L Normal 21.0-32.0 [facility] Comment on above: Performed By: #### L 100.0100, L500.4050, L501.2300 ####[facility] [address] [place], [address] Creatinine [Mass/Vol] 0.96 mg/dL Normal 0.70-1.20 [facility] Comment on above: Performed By: #### L 100.0100, L500.4050, L501.2300 ####[facility] [address] [place], [address] ECRCL 60.88 ml/min Normal 50-250 [facility] Comment on above: Performed By: #### L 100.0100, L500.4050, L501.2300 ####[facility] [address] [place], [address] GAP 11 Normal 5-15 [facility] Comment on above: Performed By: #### L 100.0100, L500.4050, L501.2300 ####[facility] [address] [place], [address] GFR/1.73 sq M.predicted among non-blacks MDRD (S/P/Bld) [Vol rate/Area] 65 mL/min/{1.73_m2} Normal >60 [facility] Comment on above: Result Comment: mL/m in/1.73m2 CKD-EPI Creatinine Equation (2020) Performed By: #### L 100.0100, L500.4050, L501.2300 ####[facility] [address] [place], [address] Globulin (S) [Mass/Vol] 2.3 g/dL Normal 2.2-4.2 [facility] Comment on above: Performed By: #### L 100.0100, L500.4050, L501.2300 ####[facility] [address] [place], [address] Glucose [Mass/Vol] 162 mg/dL High 70-99 [facility] Comment on above: Performed By: #### L 100.0100, L500.4050, L501.2300 ####[facility] [address] [place], [address] Potassium [Moles/Vol] 4.8 mmol/L Normal 3.3-5.1 [facility] Comment on above: Performed By: #### L 100.0100, L500.4050, L501.2300 ####[facility] [address] [place], [address] Sodium [Moles/Vol] 139 mmol/L Normal 133-145 [facility] Comment on above: Performed By: #### L 100.0100, L500.4050, L501.2300 ####[facility] [address] [place], [address] T PROT 6.2 g/dL Normal 5.9-8.4 [facility] Comment on above: Performed By: #### L 100.0100, L500.4050, L501.2300 ####[facility] [address] [place], [address] Urea nitrogen [Mass/Vol] 16 mg/dL Normal 4-19 [facility] Comment on above: Performed By: #### L 100.0100, L500.4050, L501.2300 ####[facility] [address] [place], [address] Consultation - Orthopedicson 08-24-2024 Consultation - Orthopedics [facility] Medical Records Department [address] [place] [address] Consultation - Orthopedics 08/24/24 1505 MR#: [id number] Acct: [id number] Name: EPI LANDAVERDE Rep #: [id number] : 1955 68 From: Jose L Barrios MD PCP: Dr. Eriberto Tovar MD Status:ADM IN Location: [place] [id number] HPI Consult Data Date of Consult: 08/24/24 HPI Narrative Reason for Consultation: Left knee pain and effusion HPI Narrative: EPI LANDAVERDE, is a 68 F who presents [...] developed viral infection which has postpone surgery. [facility] Medical History Encounter for pre-operative cardiovascular clearance [...] mg capsule 100 mg PO DAILY Supplement 1 08/23/24 History melatonin 10 mg capsule 10 [...] left grea (more content not included)... Normal [facility] Discharge Instructionon 08-04 Discharge Instruction [facility] Medical Records Department [address] [place] [address] Instructions for Home/Discharge Instructions 08/24/24 1703 MR#: [id number] Acct: [id number] Name: EPI LANDAVERDE Rep #: [id number] : 1955 68 From: Tonja Palomo MD [...] ointment 1 applic topical .weekly Rx Instructions: Discontinued tramadol 50 mg tablet 50 mg PO BID PRN PRN (Reason: pain) Referrals / Follow Up: Eriberto Tovar MD [Primary Care Provider] - Within 1 Week Jose L Barrios MD [Med Staff - Active Staff] - Within 2 Weeks Disposition Disposition (needs filled in before D/C Order can be placed): Home, Self Care 08/24/24 8075 Tonja Palomo MD CC: Dr. Melchor Vilchis DO; Dr. Eriberto Tovar MD; Dr. Jose L Barrios MD Signed Normal [facility] Erythrocyte Sed Rateon 08-24 SED RATE 12 mm/hr Normal 0-30 [facility] Comment on above: Performed By: #### L 101.9900 ####[facility] [address] [place], [address] Ferritinon 08-24-2024 Ferritin [Mass/Vol] 197 ng/mL Normal 22-378 [facility] Comment on above: Performed By: #### L 503.6550 ####[facility] [address] [place], [address] Gram Stainon 08-24-2024 GS UNK UNK Lt Knee Gram Stain Rare White Blood Cells 2+ Red Blood Cells No organisms seen Normal [facility] Comment on above: Performed By: #### L 200.0400, M100.4001, M100.2000, L200.4175, M100.2900 #### [facility] Laboratory [address] [place], [address] Iron+Iron Binding Capacityon 08-24-2024 Iron [Mass/Vol] 44 ug/dL Low 50-170 [facility] Comment on above: Performed By: #### L 501.6710, L501.5200, L501.9520, L503.6030 ####[facility] [address] [place], [address] UIBC 252 ug/dL Normal 228-428 [facility] Comment on above: Performed By: #### L 501.6710, L501.5200, L501.9520, L503.6030 ####[facility] [address] [place], [address] Lower Ext Joint Only W/WO Co nton 08-24-2024 Lower Ext Joint Only W/WO Cont [facility] Imaging Services [address] [place] [address] Lower Ext Joint Only W/WO Cont MR#: [id number] Acct: [id number] Name: EPI LANDAVERDE Rep #: [id number] : 1955 F 68 From: Kerwin Ruby DO PCP: Dr. Eriberto Tovar MD Status: ADM IN Study: Lower Ext Joint Only W/WO Cont Date of Exam: 0 08/24/24 Exam# [id number] Ordering Dr: Melchor Vilchis DO PROCEDURE: LOWER [...] meniscal or cruciate ligament tear. Reading Location: [facility] CC: Dr. Melchor Vilchis DO; Dr. Eriberto Tovar MD Whiting Machine Operator: Signed Normal [facility] Magnesiumon 08-24-2024 Magnesium [Mass/Vol] 2.4 mg/dL High 1.5-2.2 [facility] Comment on above: Performed By: #### L 501.6710, L501.5200, L501.9520, L503.6030 ####[facility] [address] [place], [address] Phosphoruson 08-24-2024 Phosphate [Mass/Vol] 3.4 mg/dL Normal 2.7-4.5 [facility] Comment on above: Performed By: #### L 100.0100, L500.4050, L501.2300 ####[facility] [address] [place], [address] Thyroid Stim Hormone (TSH)on 08-24-2024 TSH 2.070 uIU/mL Normal 0.300-4.200 [facility] Comment on above: Performed By: #### L 501.6710, L501.5200, L501.9520, L503.6030 ####[facility] [address] [place], [address] Urinalysis, Completeon 08-24 EPI,SQUAMOUS 0-5 SEEN Normal 5-10 [facility] Comment on above: Order Comment: CLEAN CATCH Performed By: #### L 400.0001 ####[facility] [address] [place], [address] RBC 0-5 SEEN Normal 0-5 [facility] Comment on above: Order Comment: CLEAN CATCH Performed By: #### L 400.0001 ####[facility] [address] [place], [address] BACTERIA 0 SEEN Normal None Seen [facility] Comment on above: Order Comment: CLEAN CATCH Performed By: #### L 400.0001 ####[facility] [address] [place], [address] Mucus Ql (Urine sed) 0 SEEN Normal [facility] Comment on above: Order Comment: CLEAN CATCH Performed By: #### L 400.0001 ####[facility] [address] [place], [address] WBC 0 SEEN Normal 0-5 [facility] Comment on above: Order Comment: CLEAN CATCH Performed By: #### L 400.0001 ####[facility] [address] [place], [address] Basic Metabolic Profile (BMP )on 08-23-2024 BUN/CRE 18.1 RATIO Normal 10-20 [facility] Comment on above: Performed By: #### L 200.0400, M100.4001, M100.2000, L200.4175, M100.2900 #### [facility] Laboratory [address] [place], [address] Calcium [Mass/Vol] 9.4 mg/dL Normal 7.6-11.0 [facility] Comment on above: Performed By: #### L 200.0400, M100.4001, M100.2000, L200.4175, M100.2900 #### [facility] Laboratory [address] [place], [address] Chloride [Moles/Vol] 106 mmol/L Normal 98-108 [facility] Comment on above: Performed By: #### L 200.0400, M100.4001, M100.2000, L200.4175, M100.2900 #### [facility] Laboratory [address] [place], [address] CO2 [Moles/Vol] 22.4 mmol/L Normal 21.0-32.0 [facility] Comment on above: Performed By: #### L 200.0400, M100.4001, M100.2000, L200.4175, M100.2900 #### [facility] Laboratory [address] [place], [address] Creatinine [Mass/Vol] 0.94 mg/dL Normal 0.70-1.20 [facility] Comment on above: Performed By: #### L 200.0400, M100.4001, M100.2000, L200.4175, M100.2900 #### [facility] Laboratory [address] [place], [address] ECRCL 63.59 ml/min Normal 50-250 [facility] Comment on above: Performed By: #### L 200.0400, M100.4001, M100.2000, L200.4175, M100.2900 #### [facility] Laboratory [address] [place], [address] GAP 11 Normal 5-15 [facility] Comment on above: Performed By: #### L 200.0400, M100.4001, M100.2000, L200.4175, M100.2900 #### [facility] Laboratory [address] [place], [address] GFR/1.73 sq M.predicted among non-blacks MDRD (S/P/Bld) [Vol rate/Area] 66 mL/min/{1.73_m2} Normal >60 [facility] Comment on above: Result Comment: mL/m in/1.73m2 CKD-EPI Creatinine Equation (2020) Performed By: #### L 200.0400, M100.4001, M100.2000, L200.4175, M100.2900 #### [facility] Laboratory [address] [place], [address] Glucose [Mass/Vol] 119 mg/dL High 70-99 [facility] Comment on above: Performed By: #### L 200.0400, M100.4001, M100.2000, L200.4175, M100.2900 #### [facility] Laboratory [address] [place], [address] Potassium [Moles/Vol] 4.4 mmol/L Normal 3.3-5.1 [facility] Comment on above: Performed By: #### L 200.0400, M100.4001, M100.1999, L200.4175, M100.2900 #### [facility] Laboratory [address] [place], [address] Sodium [Moles/Vol] 139 mmol/L Normal 133-145 [facility] Comment on above: Performed By: #### L 200.0400, M100.4001, M100.2000, L200.4175, M100.2900 #### [facility] [facility] [address] [place], [address] Urea nitrogen [Mass/Vol] 17 mg/dL Normal 4-19 [facility] Comment on above: Performed By: #### L 200.0400, M100.4001, M100.1999, L200.4175, M100.2900 #### [facility] [address] [place], [address] CBC W/Diff, Automatedon 05-2 Absolute Lymph 1.32 X10 3/uL Normal 0.83-4.51 [facility] Comment on above: Performed By: #### L 200.0400, M100.4001, M100.2000, L200.4175, M100.2900 #### [facility] [address] [place], [address] Absolute Neut 11.1 X10 3/uL High 2.0-7.7 [facility] Comment on above: Performed By: #### L 200.0400, M100.4001, M100.2000, L200.4175, M100.2900 #### [facility] [address] [place], [address] Basophils/100 WBC (Bld) 0.2 % Normal 0-1 [facility] Comment on above: Performed By: #### L 200.0400, M100.4001, M100.2000, L200.4175, M100.2900 #### [facility] [address] [place], [address] Eosinophils/100 WBC (Bld) 0.2 % Normal 0-5 [facility] Comment on above: Performed By: #### L 200.0400, M100.4001, M100.2000, L200.4175, M100.2900 #### [facility] [address] [place], [address] Erythrocyte distribution width (RBC) [Ratio] 13.9 % Normal 11.6-14.6 [facility] Comment on above: Performed By: #### L 200.0400, M100.4001, M100.2000, L200.4175, M100.2900 #### [facility] [address] [place], [address] Hematocrit (Bld) [Volume fraction] 35.8 % Low 37-47 [facility] Comment on above: Performed By: #### L 200.0400, M100.4001, M100.2000, L200.4175, M100.2900 #### [facility] [address] [place], [address] Hemoglobin (Bld) [Mass/Vol] 11.1 g/dL Low 12.0-15.0 [facility] Comment on above: Performed By: #### L 200.0400, M100.4001, M100.2000, L200.4175, M100.2900 #### [facility] [address] [place], [address] IG% 0.200 Normal 0.0-0.9 [facility] Comment on above: Result Comment: IG% - Immature Granulocytes (promyelocytes, myelocytes and metamyelocytes) > 1% indicates that a LEFT SHIFT is Present. Performed By: #### L 200.0400, M100.4001, M100.2000, L200.4175, M100.2900 #### [facility] [address] [place], [address] Lymphocytes/100 WBC (Bld) 10.3 % Low 19-41 [facility] Comment on above: Performed By: #### L 200.0400, M100.4001, M100.1999, L200.4175, M100.2900 #### [facility] [address] [place], [address] MCH (RBC) [Entitic mass] 23.9 pg Low 27.0-32.0 [facility] Comment on above: Performed By: #### L 200.0400, M100.4001, M100.2000, L200.4175, M100.2900 #### [facility] [address] [place], [address] MCHC (RBC) [Mass/Vol] 31.0 g/dL Low 32-36 [facility] Comment on above: Performed By: #### L 200.0400, M100.4001, M100.2000, L200.4175, M100.2900 #### [facility] [address] [place], [address] MCV (RBC) [Entitic vol] 77.2 fL Low 81-99 [facility] Comment on above: Performed By: #### L 200.0400, M100.4001, M100.2000, L200.4175, M100.2900 #### [facility] [address] [place], [address] Monocytes/100 WBC (Bld) 2.2 % Normal 0-10 [facility] Comment on above: Performed By: #### L 200.0400, M100.4001, M100.2000, L200.4175, M100.2900 #### [facility] [address] [place], [address] Neutrophils/100 WBC (Bld) 86.9 % High 47-70 [facility] Comment on above: Performed By: #### L 200.0400, M100.4001, M100.2000, L200.4175, M100.2900 #### [facility] [address] [place], [address] Nucleated RBC (Bld) [#/Vol] 0 10*3/uL Normal 0-5 [facility] Comment on above: Performed By: #### L 200.0400, M100.4001, M100.2000, L200.4175, M100.2900 #### [facility] [address] [place], [address] Platelet mean volume (Bld) [Entitic vol] 8.8 fL Normal 6.2-12.0 [facility] Comment on above: Performed By: #### L 200.0400, M100.4001, M100.2000, L200.4175, M100.2900 #### [facility] [address] [place], [address] Platelets (Bld) [#/Vol] 377 10*3/uL Normal 150-450 [facility] Comment on above: Performed By: #### L 200.0400, M100.4001, M100.2000, L200.4175, M100.2900 #### [facility] [address] [place], [address] RBC (Bld) [#/Vol] 4.64 10*6/uL Normal 4.2-5.4 [facility] Comment on above: Performed By: #### L 200.0400, M100.4001, M100.2000, L200.4175, M100.2900 #### [facility] [address] [place], [address] RDW SD 38.9 fl Normal 35.1-43.9 [facility] Comment on above: Performed By: #### L 200.0400, M100.4001, M100.2000, L200.4175, M100.2900 #### [facility] [address] [place], [address] WBC (Bld) [#/Vol] 12.8 10*3/uL High 4.4-11.0 [facility] Comment on above: Performed By: #### L 200.0400, M100.4001, M100.2000, L200.4175, M100.2900 #### [facility] [address] [place], [address] Emergency Department Summary on 08-23-2024 Emergency Department Summary [facility] Medical Records Department [address] [place] [address] Emergency Department Summary 08/23/24 MR#: [id number] Acct: [id number] Name: EPI LANDAVERDE Rep #: [id number] : 1955 68 From: Jacob Rosen DO PCP: Dr. Eriberto Tovar MD Status:ADM IN Location: [place] [address] HPI History of Present Illness Chief Complaint: [...] Neuro: Alert, oriented, grossly intact Psych: Cooperative [facility] Medical History Encounter for pre-operative cardiovascular clearance [...] surgery H (more content not included)... Normal [facility] Extremity Lower without Cont raon 08-23-2024 Extremity Lower without Contra [facility] Imaging Services [address] [place] [address] Extremity Lower without Contra MR#: [id number] Acct: [id number] Name: EPI LANDAVERDE Rep #: [id number] : 1955 F 68 From: Golden Collins MD PCP: Dr. Eriberto Tovar MD Status: REG ER Study: Extremity Lower without Contra Date of Exam: 0 08/23/24 Exam# [id number] Ordering Dr: Jacob Rosen DO PROCEDURE: EXTREMITY [...] with concavity of the lateral patellar facet. Rlzp-qp-trrxxmhj tricompartmental joint space narrowing and osteophyte formation. [...] a donor site for these fragments. 3. Udvx-iz-ewlzhusu osteoarthritis of the knee. Reading Location: [id number] CC: Dr. Jacob Rosen DO; Dr. Eriberto Tovar MD Whiting Machine Operator: Signed Normal [facility] H AND P Exam - Hospitaliston 08-23-2024 H&P Exam - Hospitalist [facility] Medical Records Department [address] [place] [address] H P Exam - Hospitalist 08/23/242058 MR#: [id number] Acct: [id number] Name: EPI LANDAVERDE Rep #: [id number] : 1955 68 From: Melchor Vilchis DO PCP: Dr. Eriberto Tovar MD Status:ADM IN [facility] - General General Date of Admission: 08/23/24 Date of Service: 08/23/24 Chief Complaint: Painful Left Knee with Inability to Ambulate. HPI Narrative EPI LANDAVERDE, is a 68 F with a [...] to a viral URI who presents to [facility] ER complaining of painful Left knee with inability to ambulate. Mrs. Landaverde reports her symptoms began approximately one hour prior to arrival when she was leaving a local shopping market when she suddenly developed severe Left knee pain with an medical assistant per diem from the store able to help her [...] spine measuring 0.6 cm in addition to pqbb-yf-nwlqygzf OA of the Left knee with hospitalist [...] is expected to extend beyond 2 midnights. [facility] Medical History Encounter for pre-operative cardiovascular clearance [...] D3) 50 50 mcg PO DAILY Supplement 1 08/23/24 History mcg (2,000 unit) capsule ferrous [...] History lisinop (more content not included)... Normal [facility] Synovial Fluid RBC, WBC AND Diffon 08-23-2024 SYNOVIAL CLAUDE. Turbid Normal CLEAR [facility] Comment on above: Order Comment: Comme nts: Lt Knee Performed By: #### L 200.0400, M100.4001, M100.2000, L200.4175, M100.2900 #### [facility] [address] [place], [place], [address] SYNOVIAL COLOR Bloody Normal Pale Yellow [facility] Comment on above: Order Comment: Comme nts: Lt Knee Performed By: #### L 200.0400, M100.4001, M100.2000, L200.4175, M100.2900 #### [facility] [address] [place], [address] SYNOVIAL SOURCE LEFT KNEE Normal [facility] Comment on above: Order Comment: Comme nts: Lt Knee Performed By: #### L 200.0400, M100.4001, M100.2000, L200.4175, M100.2900 #### [facility] [address] Wu [place], [place], [id number] MR/BMS.BPon 08-11-2024 MR/BMS.BP [facility] [place] [address], [address] [place] [address] OFFICE VISIT Date of Service: 08/11/24 MR#: [id number] Acct: [id number] Name: EPI LANDAVERDE Rep #: [id number] : 1955 Provider: [facility] Justine rubio Age/Sex: 68/F Location: [facility] Status: Signed Intake Vital Signs 05/23/24 07:04 [...] smoker HPI History of Present Illness HPI: Epi Landaverde (Beth) is a 68 year-old female returning for therapy. She reported having been sick with a virus since early 07/2024 preventing her from having her orthopaedic surgery. Nasrin reported was antagonistic towards her on the evening she found out she could not have surgery, which was hurtful to her. Encouraged verbalization of emotions while providing support. Reinforced Nasrin's response to and coping. Worked on coping [...] develop effe (more content not included)... Normal [facility] Stress Reporton 08-02-2024 Stress Report [facility] [address] [place] [address] MR#: [id number] Acct: [id number] Name: EPI LANDAVERDE Rep #: [id number] : 1955 68 From: Nahum Peacock MD [...] MD Date Dictated: 08/02/241252 Date Transcribed: 08/02/241252 Whiting Machine Operator: [place] [facility]igned [facility] Office Visit (INTMWS ) EPI LANDAVERDE ([id number]) 1955 F Date Time Provider Department 07/25/24 6:40 PM ERIBERTO TOVAR INTMWS During your visit today, we recorded the following information about you: Temperature Pulse Respiration Blood pressure 99.9 degrees 90/minute 16/minute 112/67 Weight Height 77.8 kg 1.702 m Eriberto Tovar MD 08/08/2024 1:35 AM Signed This note was created using Jymobriter. Subjective Epi Landaverde is a 68 year old female. Patient presents with: Gypsy Alexandra is a 68-year-old female with a history of chronic fatigue syndrome and fibromyalgia, presenting for follow-up after experiencing flu-like symptoms on July 20. Nasrin reports persistent cephalalgia and low-grade fevers since [...] a significant change from her usual state. Nasrin has been taking iron and vitamin C [...] apnea Current Outpatient Medications Medication Sig Ipratropium Megargel (ATROVENT) 21 mcg (0.03 %) nasal spray [...] Ht 170.2 (more content not included)... Normal [facility] C-REACTIVE PROTEINon 025 CRP [Mass/Vol] mg/dL [facility] - 0.9 mg/dL [facility] No Panel Informationon 07-21 Interpretation and review of laboratory results Normal [facility] RHEUMATOID FACTORon 07-22-19 25 [facility]oid factor [facility] EDDIE BY IFA SCREENon 07-21-19 25 Nuclear Ab Ql (S) Negative Normal Negative [facility] Comment on above: Order Comment: Speci men Type: BLOOD SPECIMENOrdering Facility: [facility] Address: [address] [place] [address] Result Comment: Anti -nuclear antibody test is used as an aid in diagnosis of systemic autoimmune diseases. Where positive and clinically warranted, follow-up using disease-specific testing is recommended. Low positive titers are not uncommon with advanced age, certain chronic infections, and malignancies among others. Test methodology: Indirect fluorescence immunoassay (IFA) using HEp-2 cells. Performed By: #### A NAIFS ####[facility] LABCLIA [id number] [place] [address] [place] Bacteria Spec Resp Culton Bacteria identified Respiratory culture Nom (Unsp spec) ORGANISM ID: 1 Rare Escherichia coli Insignificant colony count. No further workup. ORGANISM ID: 3 Many normal respiratory kp GRAM STAIN: Few Mixed oral kp No Polymorphonuclear Leukocytes Abnormal [facility] Comment on above: Performed By: #### 3 2355-0, 97174-3 ####[facility] LABIA [id number] [place] [address] [place] Bacteria Ur Culton 5 Bacteria identified Cx Nom (U) ORGANISM ID: 1 <10,000 CFU/ml Normal urogenital kp Normal [facility] Comment on above: Performed By: #### 6 30-4 ####[facility] LABIA [id number] [place] [address] [place] CNOVon 07-20-2024 CNOV Office Visit (INTMWS ) EPI LANDAVERDE ([id number]) 1955 F Date Time Provider Department 07/20/24 2:20 PM SANJAY YATES INTMWS During your visit today, we recorded the following information about you: Temperature Pulse Respiration Blood pressure 99.7 degrees 83/minute 16/minute 104/65 Weight 76 kg Sanjay Yates APRN.[facility] 07/21/2024 9:33 AM Signed Subjective Patient ID: Nasrin is a 68 year old female who [...] Mucosal edema present. No rhinorrhea. Mouth/Throat: Lips: [place]. Mouth: Mucous membranes are moist. Pharynx: Oropharynx [...] in each nostril twice daily, sent to [facility]. - Discussed the possibility of rheumatology or infectious disease referral if fever persists. - Follow-up appointment scheduled with Dr. Tovar next week. 4. Family history of rheumatoid arthritis (Z82.61) - Family history includes two cousins with rheumatoid arthritis. - Discussed the potential for rheumatology referral if symptoms persist. Other orders Ipratropium Megargel (ATROVENT) 21 mcg (0.03 %) nasal spray; Use 2 sprays in the nose every 12 hours. as needed for nasal congestion Medical Decision Making: Problems: Low: Acute, uncomplicated illness or injury Data: Unique test(s) ordered: 3+ Risk: Moderate: Drug management Medical Decision Making Level: 4 - Moderate Sanjay Yates, CARLOS.MEMORY CARE DIRECTOR 07/20/2024 3:04 PM Signed Your urine sample will be collected today in the clinic for (more content not included)... Normal [facility] CRP SerPl-mCncon 07-20-2024 CRP [Mass/Vol] mg/L Normal <0.9 [facility] Comment on above: Order Comment: Speci men Type: BLOOD SPECIMENOrdering Facility: [facility] Address: [address] [place] [address] Performed By: #### 1 988-5, 20373-0 ####[facility] LABCLIA [id number] [place] [address] [place] ESR Westergren method (Bld) [Velocity]on 07-20-2024 ESR (Bld) [Velocity] 5 mm/h [facility] Interpretation and review of laboratory results Normal [facility] ESR (Bld) [Velocity] 5 mm/h Normal 0-20 [facility] Comment on above: Order Comment: Speci men Type: BLOOD SPECIMENOrdering Facility: [facility] Address: [address] [place] [address] Performed By: #### 4 537-7 ####[facility] LABIA [id number] [address] [place] Microorganism Spec Culton Microorganism identified Cx Nom (Unsp spec) CULTURE, FUNGAL: No Fungus isolated after 28 days FUNGAL SMEAR: No fungus seen Normal [facility] Comment on above: Performed By: #### 3 2355-0, 08011-3 ####[facility] LABIA [id number] [place] [address] [place] Rheumatoid fact SerPl-aCncon 07-20-2024 Rheumatoid factor Qn [IU]/mL Normal <16 [facility] Comment on above: Order Comment: Speci men Type: BLOOD SPECIMENOrdering Facility: [facility] Address: [address] [place] [address] Performed By: #### 1 988-5, 36321-8 ####[facility] LABCLIA [id number] [place] [address] [place] UA DIP, URINE (POC)on 2024 BILIRUBIN UA (POCT) Negative Negative [facility] CLARITY UA (POCT) Clear [facility] COLOR UA (POCT) Yellow [facility] GLUCOSE UA (POCT) Negative Negative mg/dL [facility] Hemoglobin Ql (U) Trace-intact Abnormal Negative [facility] Interpretation and review of laboratory results Abnormal [facility] KETONE UA (POCT) Negative Negative mg/dL [facility] LEUKOCYTES UA (POCT) Negative Negative [facility] NITRITE UA (POCT) Negative Negative [facility] PH UA (POCT) 7 4.5 - 8.0 [facility] Protein Ql (U) Negative Negative mg/dL [facility] SPECIFIC GRAVITY UA (POCT) <=1.005 Abnormal 1.005 - 1.030 [facility] UROBILINOGEN UA (POCT) 0.2 Normal E.U./dL [facility] Location:[address], [address] [place] [address] POINT OF CARE [facility] CBC W Auto Differential pane l (Bld)on 07-19-2024 Basophils (Bld) [#/Vol] 10*3/uL Normal <0.11 [facility] Comment on above: Order Comment: Speci men Type: BLOOD SPECIMENOrdering Facility: [facility] Address: [address] [place] [address] Performed By: #### 5 7021-8 ####[facility] [id number] [place] [address] [place] Basophils/100 WBC (Bld) 0.2 % Normal [facility] Comment on above: Order Comment: Speci men Type: BLOOD SPECIMENOrdering Facility: [facility] Address: [address] [place] [address] Performed By: #### 5 7021-8 ####[facility] [id number] [place] [address] [place] Differential cell count method Nom (Bld) Auto Normal [facility] Comment on above: Order Comment: Speci men Type: BLOOD SPECIMENOrdering Facility: [facility] Address: [address] [place] [address] Performed By: #### 5 7021-8 ####[facility] [id number] [place] [address] [place] Eosinophils (Bld) [#/Vol] 0.06 10*3/uL Normal <0.46 [facility] Comment on above: Order Comment: Speci men Type: BLOOD SPECIMENOrdering Facility: [facility] Address: [address] [place] [address] Performed By: #### 5 7021-8 ####[facility] [id number] [place] [address] [place] Eosinophils/100 WBC (Bld) 0.7 % Normal [facility] Comment on above: Order Comment: Speci men Type: BLOOD SPECIMENOrdering Facility: [facility] Address: [address] [place] [address] Performed By: #### 5 7021-8 ####[facility] [id number] [place] [address] [place] Erythrocyte distribution width (RBC) [Ratio] 14.3 % Normal 11.5-15.0 [facility] Comment on above: Order Comment: Speci men Type: BLOOD SPECIMENOrdering Facility: [facility] Address: [address] [place] [address] Performed By: #### 5 7021-8 ####[facility] [id number] [place] [address] [place] Hematocrit (Bld) [Volume fraction] 38.9 % Normal 36.0-46.0 [facility] Comment on above: Order Comment: Speci men Type: BLOOD SPECIMENOrdering Facility: [facility] Address: [address] [place] [address] Performed By: #### 5 7021-8 ####[facility] NICOANNVILLENCLINDAA [id number] [place] [address] [place] Hemoglobin (Bld) [Mass/Vol] 11.8 g/dL Normal 11.5-15.5 [facility] Comment on above: Order Comment: Speci men Type: BLOOD SPECIMENOrdering Facility: [facility] Address: [address] [place] [address] Performed By: #### 5 7021-8 ####[facility] [id number] [place] [address] [place] Immature granulocytes (Bld) [#/Vol] 0.04 10*3/uL Normal <0.10 [facility] Comment on above: Order Comment: Speci men Type: BLOOD SPECIMENOrdering Facility: [facility] Address: [address] [place] [address] Performed By: #### 5 7021-8 ####[facility] [id number] [place] [address] [place] Immature granulocytes/100 WBC (Bld) 0.5 % Normal [facility] Comment on above: Order Comment: Speci men Type: BLOOD SPECIMENOrdering Facility: [facility] Address: [address] [place] [address] Performed By: #### 5 7021-8 ####[facility] [id number] [place] [address] [place] Lymphocytes (Bld) [#/Vol] 2.56 10*3/uL Normal 1.00-4.00 [facility] Comment on above: Order Comment: Speci men Type: BLOOD SPECIMENOrdering Facility: [facility] Address: [address] [place] [address] Performed By: #### 5 7021-8 ####[facility] [id number] [place] [address] [place] Lymphocytes/100 WBC (Bld) 29.9 % Normal [facility] Comment on above: Order Comment: Speci men Type: BLOOD SPECIMENOrdering Facility: [facility] [facility] Address: [address] [place] [address] Performed By: #### 5 7021-8 ####[facility] [id number] [place] [address] [place] MCH (RBC) [Entitic mass] 23.4 pg Low 26.0-34.0 [facility] Comment on above: Order Comment: Speci men Type: BLOOD SPECIMENOrdering Facility: [facility] Address: [address] [place] [address] Performed By: #### 5 7021-8 ####[facility] [id number] [place] [address] [place] MCHC (RBC) [Mass/Vol] 30.3 g/dL Low 30.5-36.0 [facility] Comment on above: Order Comment: Speci men Type: BLOOD SPECIMENOrdering Facility: [facility] Address: [address] [place] [address] Performed By: #### 5 7021-8 ####[facility] [id number] [place] [address] [place] MCV (RBC) [Entitic vol] 77.0 fL Low 80.0-100.0 [facility] Comment on above: Order Comment: Speci men Type: BLOOD SPECIMENOrdering Facility: [facility] Address: [address] [place] [address] Performed By: #### 5 7021-8 ####[facility] [id number] [place] [address] [place] Monocytes (Bld) [#/Vol] 0.64 10*3/uL Normal <0.87 [facility] Comment on above: Order Comment: Speci men Type: BLOOD SPECIMENOrdering Facility: [facility] Address: [address] [place] [address] Performed By: #### 5 7021-8 ####[facility] [id number] [place] [address] [place] Monocytes/100 WBC (Bld) 7.5 % Normal [facility] Comment on above: Order Comment: Speci men Type: BLOOD SPECIMENOrdering Facility: [facility] Address: [address] [place] [address] Performed By: #### 5 7021-8 ####[facility] [id number] [place] [address] [place] Neutrophils (Bld) [#/Vol] 5.24 10*3/uL Normal 1.45-7.50 [facility] Comment on above: Order Comment: Speci men Type: BLOOD SPECIMENOrdering Facility: [facility] Address: [address] [place] [address] Performed By: #### 5 7021-8 ####[facility] [id number] [place] [address] [place] Neutrophils/100 WBC (Bld) 61.2 % Normal [facility] Comment on above: Order Comment: Speci men Type: BLOOD SPECIMENOrdering Facility: [facility] Address: [address] [place] [address] Performed By: #### 5 7021-8 ####[facility] [id number] [place] [address] [place] Nucleated RBC (Bld) [#/Vol] 10*3/uL Normal <0.01 [facility] Comment on above: Order Comment: Speci men Type: BLOOD SPECIMENOrdering Facility: [facility] Address: [address] [place] [address] Performed By: #### 5 7021-8 ####[facility] AVERY [id number] [place] [address] [place] Nucleated RBC/100 WBC (Bld) [Ratio] 0.0 /100 WBC Normal [facility] Comment on above: Order Comment: Speci men Type: BLOOD SPECIMENOrdering Facility: [facility] Address: [address] [place] [address] Performed By: #### 5 7021-8 ####[facility] NICOANNVILLENCGABBY [id number] [place] [address] [place] Platelet mean volume (Bld) [Entitic vol] 8.4 fL Low 9.0-12.7 [facility] Comment on above: Order Comment: Speci men Type: BLOOD SPECIMENOrdering Facility: [facility] Address: [address] [place] [address] Performed By: #### 5 7021-8 ####[facility] NICOANNVILLENCLINDAA [id number] [place] [address] [place] Platelets (Bld) [#/Vol] 378 10*3/uL Normal 150-400 [facility] Comment on above: Order Comment: Speci men Type: BLOOD SPECIMENOrdering Facility: [facility] Address: [address] [place] [address] Performed By: #### 5 7021-8 ####[facility] [id number] [place] [address] [place] RBC (Bld) [#/Vol] 5.05 10*6/uL Normal 3.90-5.20 [facility] Comment on above: Order Comment: Speci men Type: BLOOD SPECIMENOrdering Facility: [facility] Address: [address] [place] [address] Performed By: #### 5 7021-8 ####[facility] MARTHA MILLTOWNCLIA [id number] [place] [address] [place] WBC (Bld) [#/Vol] 8.56 10*3/uL Normal 3.70-11.00 [facility] Comment on above: Order Comment: Speci men Type: BLOOD SPECIMENOrdering Facility: [facility] Address: [address] [place] [address] Performed By: #### 5 7021-8 ####[facility] MILLTOWNCLIA [id number] [place] [address] [place] Comprehensive metabolic 2000 panelon 07-19-2024 Albumin [Mass/Vol] 4.3 g/dL Normal 3.9-4.9 [facility] Comment on above: Order Comment: Speci men Type: BLOOD SPECIMENOrdering Facility: [facility] Address: [address] [place] [address] Performed By: #### 2 4323-8 ####[facility] MILLTOWNCLIA [id number] [place] [address] [place] ALP [Catalytic activity/Vol] 79 U/L Normal 34-123 [facility] Comment on above: Order Comment: Speci men Type: BLOOD SPECIMENOrdering Facility: [facility] Address: [address] [place] [address] Performed By: #### 2 4323-8 ####[facility] MILLTOWNCLIA [id number] [place] [address] [place] ALT [Catalytic activity/Vol] 34 U/L Normal 7-38 [facility] Comment on above: Order Comment: Speci men Type: BLOOD SPECIMENOrdering Facility: [facility] Address: [address] [place] [address] Performed By: #### 2 4323-8 ####[facility] MILLTOWNCLIA [id number] [place] [address] [place] Anion gap [Moles/Vol] 7 mmol/L Low 8-15 [facility] Comment on above: Order Comment: Speci men Type: BLOOD SPECIMENOrdering Facility: [facility] Address: [address] [place] [address] Performed By: #### 2 4323-8 ####[facility] MILLTOWNCLIA [id number] [place] [address] [place] AST [Catalytic activity/Vol] 15 U/L Normal 13-35 [facility] Comment on above: Order Comment: Speci men Type: BLOOD SPECIMENOrdering Facility: [facility] Address: [address] [place] [address] Performed By: #### 2 4323-8 ####[facility] [id number] [place] [address] [place] Bilirubin [Mass/Vol] 0.4 mg/dL Normal 0.2-1.3 [facility] Comment on above: Order Comment: Speci men Type: BLOOD SPECIMENOrdering Facility: [facility] Address: [address] [place] [address] Performed By: #### 2 4323-8 ####[facility] DORALWNCLIA [id number] [place] [address] [place] Calcium [Mass/Vol] 9.5 mg/dL Normal 8.5-10.2 [facility] Comment on above: Order Comment: Speci men Type: BLOOD SPECIMENOrdering Facility: [facility] Address: [address] [place] [address] Performed By: #### 2 4323-8 ####[facility] MILLTOWNCLIA [id number] [place] [address] [place] Chloride [Moles/Vol] 104 mmol/L Normal 98-107 [facility] Comment on above: Order Comment: Speci men Type: BLOOD SPECIMENOrdering Facility: [facility] Address: [address] [place] [address] Performed By: #### 2 4323-8 ####[facility] VIRGILIOWNCLIA [id number] [place] [address] [place] CO2 [Moles/Vol] 29 mmol/L Normal 22-30 [facility] Comment on above: Order Comment: Speci men Type: BLOOD SPECIMENOrdering Facility: [facility] Address: [address] [place] [address] Performed By: #### 2 4323-8 ####[facility] [id number] [address] [place] Creatinine [Mass/Vol] 0.93 mg/dL Normal 0.58-0.96 [facility] Comment on above: Order Comment: Speci men Type: BLOOD SPECIMENOrdering Facility: [facility] Address: [address] [place] [address] Performed By: #### 2 4323-8 ####[facility] [id number] [address] Creatinine and Glomerular filtration rate.predicted panel (S/P/Bld) 67 mL/min/1.73m??? Normal >=60 [facility] Comment on above: Order Comment: Speci men Type: BLOOD SPECIMENOrdering Facility: [facility] Address: [address] [place] [address] Result Comment: Lani mated Glomerular Filtration Rate [...] actual GFR. Performed By: #### 2 4323-8 ####[facility] DORALWNCLIA [id number] [place] [address] [place] Glucose [Mass/Vol] 98 mg/dL Normal 74-99 [facility] Comment on above: Order Comment: Speci men Type: BLOOD SPECIMENOrdering Facility: [facility] Address: [address] [place] [address] Result Comment: The [place] [employer] (ADA) provides guidance for cutoff [...] Standards of Medical Care in Diabetes 2016, [place] [employer]. Diabetes Care. 2016.39(Suppl 1). Performed By: #### 2 4323-8 ####[facility] DORALWNCLIA [id number] [place] [address] [place] Potassium [Moles/Vol] 3.7 mmol/L Normal 3.7-5.1 [facility] Comment on above: Order Comment: Speci men Type: BLOOD SPECIMENOrdering Facility: [facility] Address: [address] [place] [address] Performed By: #### 2 4323-8 ####[facility] DORALWNCLIA [id number] [place] [address] [place] Protein [Mass/Vol] 6.6 g/dL Normal 6.3-8.0 [facility] Comment on above: Order Comment: Speci men Type: BLOOD SPECIMENOrdering Facility: [facility] Address: [address] [place] [address] Performed By: #### 2 4323-8 ####[facility] [id number] [place] [address] [place] Sodium [Moles/Vol] 140 mmol/L Normal 136-144 [facility] Comment on above: Order Comment: Speci men Type: BLOOD SPECIMENOrdering Facility: [facility] Address: [address] [place] [address] Performed By: #### 2 4323-8 ####[facility] [id number] [place] [address] [place] Urea nitrogen [Mass/Vol] 18 mg/dL Normal 7-21 [facility] Comment on above: Order Comment: Speci men Type: BLOOD SPECIMENOrdering Facility: [facility] Address: [address] [place] [address] Performed By: #### 2 4323-8 ####[facility] [id number] [place] [address] [place] SUSANA JAY PANELon 025 EBV NA AB, QUAL Positive Abnormal Negative [facility] Comment on above: Order Comment: Speci men Type: BLOOD SPECIMENOrdering Facility: [facility] Address: [address] [place] [address] Performed By: #### E BVPNL ####[facility] LABCLIA [id number] [place] [address] [place] EBV VCA IGG, QUAL Positive Abnormal Negative [facility] Comment on above: Order Comment: Speci men Type: BLOOD SPECIMENOrdering Facility: [facility] Address: [address] [place] [address] Performed By: #### E BVPNL ####[facility] LABCLIA [id number] [place] [address] [place] EBV VCA IGM, QUAL Negative Normal Negative [facility] Comment on above: Order Comment: Speci men Type: BLOOD SPECIMENOrdering Facility: [facility] Address: [address] [place] [address] Performed By: #### E BVPNL ####[facility] LABCLIA [id number] [place] [address] [place] INTERPRETATION (EBVPNL) Past Infection. EBV panel interpretation is a general guide that is meant to capture most, but not all, of the possible clinical scenarios. Non-specific reactivities are not uncommon especially with equivocal results. Should the overall interpretation not be consistent with the clinical picture, please contact the medical laboratory specialist of the test for assistance. Normal [facility] Comment on above: Order Comment: Speci men Type: BLOOD SPECIMENOrdering Facility: [facility] Address: [address] [place] [address] Performed By: #### E BVPNL ####[facility] LABIA [id number] [place] [address] [place] Urinalysis complete panel (U )on 07-19-2024 Bacteria LM.HPF (Urine sed) [#/Area] Negative Normal Negative [facility] Comment on above: Order Comment: Speci men Type: URINE SPECIMENOrdering Facility: [facility] Address: [address] [place] [address] Performed By: #### 2 4356-8 ####[facility] LABIA [id number] [place] [address] [place] Bilirubin Ql (U) Negative Normal Negative [facility] Comment on above: Order Comment: Speci men Type: URINE SPECIMENOrdering Facility: [facility] Address: [address] [place] [address] Performed By: #### 2 4356-8 ####[facility] LABIA [id number] [address] [place] Clarity (Unsp spec) Clear Normal Clear [facility] Comment on above: Order Comment: Speci men Type: URINE SPECIMENOrdering Facility: [facility] Address: [address] [place] [address] Performed By: #### 2 4356-8 ####[facility] LABCLIA [id number] [address], [place] [address] [place] Color (U) Yellow Normal Yellow [facility] Comment on above: Order Comment: Speci men Type: URINE SPECIMENOrdering Facility: [facility] Address: [address] [place] [address] Performed By: #### 2 4356-8 ####[facility] LABCLIA [id number] [place] [address] [place] Epithelial cells LM.HPF (Urine sed) [#/Area] None Seen Normal [facility] Comment on above: Order Comment: Speci men Type: URINE SPECIMENOrdering Facility: [facility] Address: [address] [place] [address] Performed By: #### 2 4356-8 ####[facility] LABIA [id number] [address] OF [facility] Glucose Test strip (U) [Mass/Vol] Negative Normal Negative [facility] Comment on above: Order Comment: Speci men Type: URINE SPECIMENOrdering Facility: [facility] Address: [address] [place] [address] Performed By: #### 2 4356-8 ####[facility] LABIA [id number] [place] [address] [place] Hemoglobin Ql (U) Negative Normal Negative [facility] Comment on above: Order Comment: Speci men Type: URINE SPECIMENOrdering Facility: [facility] Address: [address] [place] [address] Performed By: #### 2 4356-8 ####[facility] LABCLIA [id number] [address] [place] Hyaline casts (Urine sed) [#/Area] 0 /[LPF] Normal 0 /LPF [facility] Comment on above: Order Comment: Speci men Type: URINE SPECIMENOrdering Facility: [facility] Address: [address] [place] [address] Performed By: #### 2 4356-8 ####[facility] LABCLIA [id number] [address], [facility] [place] Ketones Ql (U) Trace Abnormal Negative [facility] Comment on above: Order Comment: Speci men Type: URINE SPECIMENOrdering Facility: [facility] Address: [address] [place] [address] Performed By: #### 2 4356-8 ####[facility] LABCLIA [id number] [place] [address] [place] Leukocyte esterase Test strip Ql (U) Trace Abnormal Negative [facility] Comment on above: Order Comment: Speci men Type: URINE SPECIMENOrdering Facility: [facility] Address: [address] [place] [address] Performed By: #### 2 4356-8 ####[facility] LABCLIA [id number] [place] [address] [place] Nitrite Ql (U) Negative Normal Negative [facility] Comment on above: Order Comment: Speci men Type: URINE SPECIMENOrdering Facility: [facility] Address: [address] [place] [address] Performed By: #### 2 4356-8 ####[facility] LABCLIA [id number] [place] [id number] [place] pH (U) 6.0 [pH] Normal <8.5 [facility] Comment on above: Order Comment: Speci men Type: URINE SPECIMENOrdering Facility: [facility] Address: [address] [place] [address] Performed By: #### 2 4356-8 ####[facility] LABCLIA [id number] [address], [facility] [place] Protein (U) [Mass/Vol] Trace Abnormal Negative [facility] Comment on above: Order Comment: Speci men Type: URINE SPECIMENOrdering Facility: [facility] Address: [address] [place] [address] Performed By: #### 2 4356-8 ####[facility] LABIA [id number] [place] [address] [place] RBC LM.HPF (Urine sed) [#/Area] 3-5 /HPF Abnormal 0-2 /HPF [facility] Comment on above: Order Comment: Speci men Type: URINE SPECIMENOrdering Facility: [facility] Address: [address] [place] [address] Performed By: #### 2 4356-8 ####[facility] [id number] [place] [address] [place] Specific gravity (U) [Rel density] 1.025 Normal 1.005-1.030 [facility] Comment on above: Order Comment: Speci men Type: URINE SPECIMENOrdering Facility: [facility] Address: [address] [place] [address] Performed By: #### 2 4356-8 ####[facility] [id number] [address] [place] Urobilinogen Ql (U) 0.2 EU/dL Normal 0.2-1.0 EU/dL [facility] Comment on above: Order Comment: Speci men Type: URINE SPECIMENOrdering Facility: [facility] Address: [address] [place] [address] Performed By: #### 2 4356-8 ####[facility] [id number] [place] [address] [place] WBC LM.HPF (Urine sed) [#/Area] 0-5 /HPF Normal 0-5 /HPF [facility] Comment on above: Order Comment: Speci men Type: URINE SPECIMENOrdering Facility: [facility] Address: [address] [place] [address] Performed By: #### 2 4356-8 ####[facility] LABCLDAVION [id number] [facility] CENTERYovany [address] STATES OF [facility] XR CHEST 2V FRONTAL/LATon XR CHEST 2V [...] thoracic spine. IMPRESSION: No acute radiographic abnormality. Whiting Machine Operator: ELLA Transcribe Date/Time: Jul 19 2024 11:40A Dictated by : ELIZABETH MELLO MD This examination was interpreted and the report reviewed and electronically signed by: ELIZABETH MELLO MD on Jul 19 2024 11:41AM EST [id number] Normal [facility] XR Chest PA and Lateralon Radiology Study observation (narrative) [facility] IMPRESSION: No acute radiographic abnormality. Whiting Machine Operator: [facility] Transcribe Date/Time: Jul 19 2024 11:40A [...] mid thoracic spine. DIVISION OF RADIOLOGY Provider, [facility] - 07/19/2024 * * *Final Report* * [...] spine. IMPRESSION IMPRESSION: No acute radiographic abnormality. Whiting Machine Operator: ELLA Transcribe Date/Time: Jul 19 2024 11:40A Dictated by : ELIZABETH MELLO MD This examination was interpreted and the report reviewed and electronically signed by: ELIZABETH MELLO MD on Jul 19 2024 11:41AM EST [facility] XR Chest PA and LateralOrder ed By: [facility]cf Provider on 07-19-2024 [facility] 12 Lead EKG performed by [facility] on 07-12-2024 12 Lead EKG performed by [facility] [address] [place] [address] 12 Lead EKG performed by [facility] 07/12/24 1543 MR#: [id number] Acct: [id number] Name: BISHOPEPICIARAN ALEXANDRA Rep #: [id number] : 1955 68 From: Nahum Peacock MD Attending Dr: Dr. Nahum Peacock MD Status: DEP A MB Ordering Dr: Nahum Peacock MD Date: 07/12/24 Location: [facility] Sex: F C Admitted: BMS/12 Lead EKG performed by [facility] ECG Report Interpretation Si nus Rhythm -Prominent R(V1) and left axis -nonspecific -Seen with pulmonary disease -possible anterior fascicular block. - Nonspecific T-abnormality. ABNORMAL Electronically signed on 07/18/2024 at 14:53 by Nahum Peacockwood [employer] Version [id number] 07/18/24 1454 Date Nahum Peacock MD CC: Dr. Eriberto Tovar MD Date Dictated: 07/12/24 1543 Date Transcribed: 07/12/24 154 Whiting Machine Operator: [place] Signed Normal [facility] Cardiology Visit Reporton Cardiology Visit Report [facility] [address] [place] [address]. [address] [place], [place] [address] OFFICE VISIT Date of Service: 07/12/24 MR#: [id number] Acct: [id number] Name: EPI LANDAVERDE Rep #: [id number] : 1955 Provider: Dr. Nahum Peacock MD Age/Sex: 68/F Location: [facility] Status: Signed HPI HPI History of Present [...] Monitor Intake Visit Reasons: SOB/ABN EKG (MAGDA) Crossing Guard Required: No Accompanied by: Significant Other Is [...] for fat (more content not included)... Normal [facility] CNOVon 07-10-2024 CNOV Office Visit (INTMWS ) EPI LANDAVERDE ([id number]) 1955 F Date Time Provider Department 07/10/24 12:00 PM SANJAY YATES During your visit today, we recorded the following information about you: Temperature Pulse Blood pressure Weight 97.5 degrees 82/minute 121/72 76.9 kg Sanjay Yates APRN.MEMORY CARE DIRECTOR 07/10/2024 1:04 PM Signed SUBJECTIVE Epi Landaverde is a 68 year old female [...] - LISINOPRIL 10 MG TABLET Sanjay Yates APRN.CNS - Discussed symptom monitoring and supportive care [...] Making Level: 3 - Low Sanjay Yates APRN.CNS 07/10/2024 12:40 PM Signed Allergies As of [...] AND RSV PCR, ROUTINE [SQCVFLRS] Order #: [id number]. #:[id number] predniSONE (DELTASONE) 10 mg tabletTake 4 tabs daily for 3 days, then 2 tabs daily for 3 days, then 1 tab daily for 3 days with food.Disp: 21 tabletRfl: 0 Prescriptions as of 07/10/2024 - rosuvastatin (CRESTOR) 5 mg tablet Take 1 tablet by (more content not included)... Normal [facility] Echo Completeon 07-07-2024 Echo Complete [facility] [address] [place] [address] Echo Complete 07/07/24 0914 MR#: [id number] Acct: [id number] Name: EPI LANDAVERDE Rep #: [id number] : 1955 68 From: Nahum Peacock MD Attending Dr: Dr. Eriberto Tovar MD Status: R IRIS I Ordering Dr: ERIBERTO TOVAR Date: 07/07/24 Location: [facility] Sex: F C Admitted: Reason For Study [...] Physician: Eriberto Tovar Performed By: Amelia Streeter, ARSENIO, RVT 07/07/24 1210 Date Nahum Peacock MD CC: Dr. Eriberto Tovar MD; ERIBERTO TOVAR Date Dictated: 07/07/24913 Date Transcribed: 07/07/241209 Whiting Machine Operator: Signed [facility] 07-05-[address] [facility] Telephone (INTMWS) EPI LANDAVERDE ([id number]) 1955 F Date Time Provider Department 07/05/24 ERIBERTO TOVAR INTRonnyWS During your visit today, we recorded the following information about you: Ronny Mills RN 07/05/2024 9:40 AM Signed Faxed cardiology referral and EKG results to [facility], per patient request. [facility]: phone # [phone], Allergies As of Date: 07/05/2024 Noted Allergy Reaction SULFA (SULFONAMIDE ANTIBIOTICS) 12/05/2004 4 - Hives Date Reviewed: 07/04/2024 Reviewed by: Sanjay Yates APRN.MEMORY CARE DIRECTOR - Fully Assessed Reason for Visit: Faxed [...] ANEMIA NOS [D64.9] 06/01/2008 DISC DEGENERATION NOS [[id number]] 06/04/2008 Unspecified sleep apnea [G47.30] 07/31/2008 02/25/2016 [...] menopausal or female climacteric st*01/12/2012 02/25/2016 Dyspareunia [INN3786] 05/23/2012 Change in bowel habits [R19.4] 11/23/2013 02/25/2016 GERD (gastroesophageal reflux disease) [K21.9] 11/23/2013 04/30/2017 Obstructive sleep apnea [G47.33] Generalized anxiety disorder [F41.1] 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.*07/13/2023 Screen for colon cancer [Z12.11] 01/27/2024 Encounter Status:Closed by Ronny MILLS [facility] LAN[facility] ([id number]) 1955 F Date Time Provider Department 07/05/24 ERIBERTO TOVAR INTMWS During your visit today, we recorded the following information about you: Karen Hendrix RN 07/05/2024 1:44 PM Signed Jyotsna from [facility] calls and states [facility] does have a provider that is willing to see patient prior to surgery date on 07/17/2024. Shipping/Receiving Manager is asking if patient can get ECHO done prior to appointment. [facility] cannot order this testing because patient is not an established with them yet. [facility] will not order testing even though they had called [facility] requesting that patient be seen and cleared prior to cardiac cardiology. Jyotsna is asking if PCP can order the testing and fax the order to [facility] scheduling and notify Jyotsna when order is faxed. Jyotsna spoke with patient who had told her that she requested referral to be faxed over to [facility] to see which office can see her first. Please review and advise, KILEY James Liza D, MD 07/05/2024 2:30 PM Signed Filed order oRssy Mendoza LPN 07/05/2024 2:46 PM Signed Jyotsna made aware that order has been faxed for the ECHO Allergies As of Date: 07/05/2024 Noted Allergy Reaction SULFA (SULFONAMIDE ANTIBIOTICS) 12/05/2004 4 - Hives Date Reviewed: 07/04/2024 Reviewed by: Sanjay Yates APRN.MEMORY CARE DIRECTOR - Fully Assessed Reason for Visit: Orders [681] Primary Visit Diagnosis:Abnormal ECG [R94.31] Order(s):ECHO [[id number]] Order #: [id number]: 1 FUTURE Prescriptions as of 07/05/2024 - [...] ANEMIA NOS [D64.9] 06/01/2008 DISC DEGENERATION NOS [NTS0488] 06/04/2008 Unspecified sleep apnea [G47.30] 07/31/2008 02/25/2016 Periodic limb movement disorder [G47.61] 09/12/2008 02/25/2016 Acute gastritis with hemorrhage [K29.01] 10/17/2008 04/30/2017 Contact dermatitis and other eczema, due to uns*02/14/2009 01/17/2015 Xerosis cutis [L85.3] 02/14/2009 01/17/2015 Sun-damaged skin [L57.8] 02/14/2009 01/17/2015 Lentigo [L81.4] 02/14/2009 01/17/2015 Melanocytic nevus of trunk [D22.5] 02/14/2009 02/25/2016 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 Normal [facility] CNOVon 07-04-2024 CNOV Office Visit (INTMWS ) EPI LANDAVERDE ([id number]) 1955 F Date Time Provider Department 07/04/24 2:20 PM SANJAY YATES During your visit today, we recorded the following information about you: Pulse Respiration Blood pressure Weight 85/minute 16/minute 112/64 78.6 kg Sanjay Yates APRN.MEMORY CARE DIRECTOR 07/04/2024 3:59 PM Signed Subjective Patient ID: Nasrin is a 68 year old female who presents for Follow Up. [facility] Epi Landaverde presents for recheck having seen Eriberto [...] visit scheduled with Dr. Barrios partner Evangelista DIXON 07/10/2024. Abnormal EKG: - Recent EKG showed possible cardiac enlargement and prior IA. - Denies current chest pain, dyspnea, palpitations, dizziness, or edema. - Able to walk on flat surfaces without dyspnea or chest pain unlimited; unable to assess stair climbing due to knee pain. - Remote history of irregular heartbeats; previously suspected MVP. - No history of CAD, IA or CVA. Has history of SHANNON and [...] throat after seeing Dr. Tovar; evaluated at [facility], strep test negative. - Symptoms have resolved; [...] deficit present. (more content not included)... Normal [facility] 07-04-[address] [facility] Telephone (INTMWS) EPI LANDAVERDE ([id number]) 1955 F Date Time Provider Department 07/04/24 [facility] During your visit today, we recorded the following information about you: Nasrin Garcia LPN 07/04/2024 10:51 AM Signed Mirna from [facility] calling requesting copy of patient latest CBC to be faxed to [phone]. Printed and faxed as requested. Allergies As of Date: 07/04/2024 Noted Allergy Reaction SULFA (SULFONAMIDE ANTIBIOTICS) 12/05/2004 4 - Hives Date Reviewed: 07/01/2024 Reviewed by: Kelly Rodriguez LPN - Fully Assessed Reason for Visit: [facility] requesting records [Other] Prescriptions as of [...] ANEMIA NOS [D64.9] 06/01/2008 DISC DEGENERATION NOS [XRV0720] 06/04/2008 Unspecified sleep apnea [G47.30] 07/31/2008 02/25/2016 [...] menopausal or female climacteric st*01/12/2012 02/25/2016 Dyspareunia [PKP6387] 05/23/2012 Change in bowel habits [R19.4] 11/23/2013 02/25/2016 GERD (gastroesophageal reflux disease) [K21.9] 11/23/2013 04/30/2017 Obstructive sleep apnea [G47.33] Generalized anxiety disorder [F41.1] 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.*07/13/2023 Screen for colon cancer [Z12.11] 01/27/2024 Encounter Status:Closed by NASRIN GARCIA on 07/04/24 [facility] 07-04-2024 ECG COMPLETE Ventricular Rate : 7 5 BPM Atrial Rate : 75 BPM P-R Interval : 178 ms QRS Duration : 104 ms Q-T Interval : 408 ms QTC Calculation(Bazett) : 455 ms Calculated P Slaton : 56 degrees Calculated R Slaton : -66 degrees Calculated T Slaton : 34 degrees NORMAL SINUS RHYTHM LEFT AXIS DEVIATION ABNORMAL ECG Confirmed by MD JURADO QARAB ([id number]) on 07/05/2024 4:10:20 PM NAME : EPI LANDAVERDE PID : [id number] : 1955 Gender : Female Race : ORD : [id number] Procedure Date : Jul 04 2024 15:04:39 Edit Date : Jul 05 2024 16:10:24 Diagnosis: NORMAL SINUS RHYTHM LEFT AXIS DEVIATION ABNORMAL ECG Confirmed by MD JURADO QARAB ([id number]) on 07/05/2024 4:10:20 PM Test Reason : R94.31 Abnormal EKG Location : 185 : [facility] Overread By : MD JURADO QARAB Edited By : MD JURADO QARAB Referred By : , Acquired by : Beltran Vanessa [facility] MR/BMS.BPon 07-04-2024 MR/BMS.BP [address], [address] [place] [address] OFFICE VISIT Date of Service: 07/04/24 MR#: [id number] Acct: [id number] Name: EPI LANDAVERDE Rep #: [id number] : 1955 Provider: [facility] Justine rubio Age/Sex: 68/F Location: [facility] Status: Signed Intake Vital Signs 04/20/24 10:48 06/25/24 08:55 07/04/24 16:10 Height 5 ft 7 in 5 ft 7 in 5 ft 7 in BP Intake Visit Reasons: Follow up Allergies Sulfa (Sulfonamide Antibiotics) Allergy (Verified 06/21/24 12:54) Hives Have you fallen in the past year?: No [facility] Medical History (Updated 06/29/24 @ 07:39 by [...] smoker HPI History of Present Illness HPI: Epi ([facility]) is a 68 year-old female returning for therapy. She arrived late to the appointment as another medical appointment took longer than expected. Epi is preparing for knee surgery on 07/17/2024. There are cardiac concerns from her pre-surgery evaluation, and she must see a steel molder. Epi is spending much time getting the household ready for her surgery. She reports that her 's antagonistic behavior has recently increased, and she is concerned that he will not handle her surgery well. Focused on working around antagonistic behavior and implementing self-care. Also worked on identifying ways Epi can utilize additional supports. She has arranged [...] symptoms and medication effectiveness. (2) Depression: Plan: BH therapy using CBT, DBT, and ACT interventions [...] and s (more content not included)... Normal [facility] CBC W Auto Differential pane l (Bld)on 07-03-2024 Basophils (Bld) [#/Vol] 0.03 10*3/uL [facility] Basophils/100 WBC (Bld) 0.4 % [facility] Differential cell count method Nom (Bld) Auto [facility] Eosinophils (Bld) [#/Vol] 0.06 10*3/uL [facility] Eosinophils/100 WBC (Bld) 0.8 % [facility] Erythrocyte distribution width (RBC) [Ratio] 14 % 11.5 - 15.0 % [facility] Hematocrit (Bld) [Volume fraction] 36.9 % 36.0 - 46.0 % [facility] Hemoglobin (Bld) [Mass/Vol] 11.1 g/dL Low 11.5 - 15.5 g/dL [facility] Immature granulocytes (Bld) [#/Vol] 0.03 10*3/uL [facility] Immature granulocytes/100 WBC (Bld) 0.4 % [facility] Interpretation and review of laboratory results Abnormal [facility] Lymphocytes (Bld) [#/Vol] 2.14 10*3/uL [facility] Lymphocytes/100 WBC (Bld) 27.1 % [facility] MCH (RBC) [Entitic mass] 23.5 pg Low 26.0 - 34.0 pg [facility] MCHC (RBC) [Mass/Vol] 30.1 g/dL Low 30.5 - 36.0 g/dL [facility] MCV (RBC) [Entitic vol] 78 fL Low 80.0 - 100.0 fL [facility] Monocytes (Bld) [#/Vol] 0.7 10*3/uL [facility] Monocytes/100 WBC (Bld) 8.9 % [facility] Neutrophils (Bld) [#/Vol] 4.94 10*3/uL [facility] Neutrophils/100 WBC (Bld) 62.4 % [facility] Nucleated RBC (Bld) [#/Vol] NINF [facility] Nucleated RBC/100 WBC (Bld) [Ratio] 0 % /100 WBC [facility] Platelet mean volume (Bld) [Entitic vol] 8.5 fL Low 9.0 - 12.7 fL [facility] Platelets (Bld) [#/Vol] 388 10*3/uL [facility] RBC (Bld) [#/Vol] 4.73 10*6/uL 3.90 - 5.2 0 m/uL [facility] WBC (Bld) [#/Vol] 7.9 10*3/uL [facility] Basophils (Bld) [#/Vol] 0.03 10*3/uL Normal <0.11 [facility] Comment on above: Order Comment: Speci men Type: BLOOD SPECIMENOrdering Facility: [facility] Address: [address] [place] [address] Performed By: #### 5 7021-8 ####[facility] [id number] [address] OF [facility] Basophils/100 WBC (Bld) 0.4 % Normal [facility] Comment on above: Order Comment: Speci men Type: BLOOD SPECIMENOrdering Facility: [facility] Address: [address] [place] [address] Performed By: #### 5 7021-8 ####[facility] [id number] [place] [address] [place] Differential cell count method Nom (Bld) Auto Normal [facility] Comment on above: Order Comment: Speci men Type: BLOOD SPECIMENOrdering Facility: [facility] Address: [address] [place] [address] Performed By: #### 5 7021-8 ####[facility] [id number] [place] [address] [place] Eosinophils (Bld) [#/Vol] 0.06 10*3/uL Normal <0.46 [facility] Comment on above: Order Comment: Speci men Type: BLOOD SPECIMENOrdering Facility: [facility] Address: [address] [place] [address] Performed By: #### 5 7021-8 ####[facility] [id number] [place] [address] [place] Eosinophils/100 WBC (Bld) 0.8 % Normal [facility] Comment on above: Order Comment: Speci men Type: BLOOD SPECIMENOrdering Facility: [facility] Address: [address] [place] [address] Performed By: #### 5 7021-8 ####[facility] [id number] [place] [address] [place] Erythrocyte distribution width (RBC) [Ratio] 14.0 % Normal 11.5-15.0 [facility] Comment on above: Order Comment: Speci men Type: BLOOD SPECIMENOrdering Facility: [facility] Address: [address] [place] [address] Performed By: #### 5 7021-8 ####[facility] [id number] [place] [address] [place] Hematocrit (Bld) [Volume fraction] 36.9 % Normal 36.0-46.0 [facility] Comment on above: Order Comment: Speci men Type: BLOOD SPECIMENOrdering Facility: [facility] Address: [address] [place] [address] Performed By: #### 5 7021-8 ####[facility] [id number] [place] [address] [place] Hemoglobin (Bld) [Mass/Vol] 11.1 g/dL Low 11.5-15.5 [facility] Comment on above: Order Comment: Speci men Type: BLOOD SPECIMENOrdering Facility: [facility] Address: [address] [place] [address] Performed By: #### 5 7021-8 ####[facility] [id number] [place] [address] [place] Immature granulocytes (Bld) [#/Vol] 0.03 10*3/uL Normal <0.10 [facility] Comment on above: Order Comment: Speci men Type: BLOOD SPECIMENOrdering Facility: [facility] Address: [address] [place] [address] Performed By: #### 5 7021-8 ####[facility] [id number] [place] [address] [place] Immature granulocytes/100 WBC (Bld) 0.4 % Normal [facility] Comment on above: Order Comment: Speci men Type: BLOOD SPECIMENOrdering Facility: [facility] Address: [address] [place] [address] Performed By: #### 5 7021-8 ####[facility] [id number] [place] [address] [place] Lymphocytes (Bld) [#/Vol] 2.14 10*3/uL Normal 1.00-4.00 [facility] Comment on above: Order Comment: Speci men Type: BLOOD SPECIMENOrdering Facility: [facility] Address: [address] [place] [address] Performed By: #### 5 7021-8 ####[facility]UTENCLINDAA [id number] [place] [address] [place] [facility] Lymphocytes/100 WBC (Bld) 27.1 % Normal [facility] Comment on above: Order Comment: Speci men Type: BLOOD SPECIMENOrdering Facility: [facility] Address: [address] [place] [address] Performed By: #### 5 7021-8 ####[facility]ENCGABBY [id number] [place] [address] [place] MCH (RBC) [Entitic mass] 23.5 pg Low 26.0-34.0 [facility] Comment on above: Order Comment: Speci men Type: BLOOD SPECIMENOrdering Facility: [facility] Address: [address] [place] [address] Performed By: #### 5 7021-8 ####[facility]CL[facility] [id number] [place] [address] [place] MCHC (RBC) [Mass/Vol] 30.1 g/dL Low 30.5-36.0 [facility] Comment on above: Order Comment: Speci men Type: BLOOD SPECIMENOrdering Facility: [facility] Address: [address] [place] [address] Performed By: #### 5 7021-8 ####[facility]CL[facility] [id number] [place] [address] [place] MCV (RBC) [Entitic vol] 78.0 fL Low 80.0-100.0 [facility] Comment on above: Order Comment: Speci men Type: BLOOD SPECIMENOrdering Facility: [facility] Address: [address] [place] [address] Performed By: #### 5 7021-8 ####[facility] [id number] [place] [address] [place] Monocytes (Bld) [#/Vol] 0.70 10*3/uL Normal <0.87 [facility] Comment on above: Order Comment: Speci men Type: BLOOD SPECIMENOrdering Facility: [facility] Address: [address] [place] [address] Performed By: #### 5 7021-8 ####[facility] [id number] [place] [address] [place] Monocytes/100 WBC (Bld) 8.9 % Normal [facility] Comment on above: Order Comment: Speci men Type: BLOOD SPECIMENOrdering Facility: [facility] Address: [address] [place] [address] Performed By: #### 5 7021-8 ####[facility]UTENCA [id number] [place] [address] [place] Neutrophils (Bld) [#/Vol] 4.94 10*3/uL Normal 1.45-7.50 [facility] Comment on above: Order Comment: Speci men Type: BLOOD SPECIMENOrdering Facility: [facility] Address: [address] [place] [address] Performed By: #### 5 7021-8 ####[facility]ALTH[facility] [id number] [place] [address] [place] Neutrophils/100 WBC (Bld) 62.4 % Normal [facility] Comment on above: Order Comment: Speci men Type: BLOOD SPECIMENOrdering Facility: [facility] Address: [address] [place] [address] Performed By: #### 5 7021-8 ####[facility] [id number] [place] [address] [place] Nucleated RBC (Bld) [#/Vol] 10*3/uL Normal <0.01 [facility] Comment on above: Order Comment: Speci men Type: BLOOD SPECIMENOrdering Facility: [facility] Address: [address] [place] [address] Performed By: #### 5 7021-8 ####[facility] CARINNCGABBY [id number] [place] [address] [place] Nucleated RBC/100 WBC (Bld) [Ratio] 0.0 /100 WBC Normal [facility] Comment on above: Order Comment: Speci men Type: BLOOD SPECIMENOrdering Facility: [facility] Address: [address] [place] [address] Performed By: #### 5 7021-8 ####[facility] [id number] [place] [address] [place] Platelet mean volume (Bld) [Entitic vol] 8.5 fL Low 9.0-12.7 [facility] Comment on above: Order Comment: Speci men Type: BLOOD SPECIMENOrdering Facility: [facility] Address: [address] [place] [address] Performed By: #### 5 7021-8 ####[facility] [id number] [place] [address] [place] Platelets (Bld) [#/Vol] 388 10*3/uL Normal 150-400 [facility] Comment on above: Order Comment: Speci men Type: BLOOD SPECIMENOrdering Facility: [facility] Address: [address] [place] [address] Performed By: #### 5 7021-8 ####[facility] [id number] [place] [address] [place] RBC (Bld) [#/Vol] 4.73 10*6/uL Normal 3.90-5.20 [facility] Comment on above: Order Comment: Speci men Type: BLOOD SPECIMENOrdering Facility: [facility] Address: [address] [place] [address] [place] [address] Performed By: #### 5 7021-8 ####[facility] MARTHA POOLEWNCLIA [id number] [place] [address] [place] WBC (Bld) [#/Vol] 7.90 10*3/uL Normal 3.70-11.00 [facility] Comment on above: Order Comment: Speci men Type: BLOOD SPECIMENOrdering Facility: [facility] Address: [address] [place] [id number] Performed By: #### 5 7021-8 ####[facility] MARTHA DEL ROSARIONCLIA [id number] [address] [place] CNOVon 07-01-2024 CNOV Office Visit (UCWSTR ) EPI LANDAVERDE ([id number]) 1955 F Date Time Provider Department 07/01/24 1:45 PM ISIDORO WILSON [facility] During your visit today, we recorded the following information about you: Temperature Pulse Respiration Blood pressure 98.2 degrees 82/minute 16/minute 122/80 Weight 78.1 kg Isidoro Wilson APRN.GERIATRIC CASE MANAGER 07/01/2024 1:56 PM Signed Subjective HPI Nontoxic-appearing [...] Artery Disease Mother 35 35 at first [place] Ischemic Heart Disease Mother Stroke Mother Coronary [...] Eyes: Ne (more content not included)... Normal [facility] STREP A MOLECULAR (POC)on Procedural Control Valid [facility] Strep A (POCT) Negative Negative [facility] CNPNon 06-28-2024 CNPN Telephone (INTMWS) EPI ([id number]) 1955 F Date Time Provider Department 06/28/24 ERIBERTO TOVAR During your visit today, we recorded the following information about you: Rhea Rees RN 06/28/2024 9:56 AM Signed Zoey calling from [facility]. Patient had Surgical Clearance appt with Dr. Tovar on 06/19/24. They are in need of an updated clearance form including PCP review of pt's recent lab and EKG results, faxed back to them. Zoey states she faxed information over to PCP office yesterday, 06/27/24. Please fax completed information back to them at FAX #: [phone] KILEY Irwin Helen E, LPN 06/28/2024 10:23 AM Signed [facility] faxing Preop Clearance form for Dr. Tovar to complete. EKG was done at [facility], [facility] will fax to Dr. Tovar to review, fax back. Marleen Fuentes LPN, LPN 06/28/2024 12:14 PM Signed [facility](although already rec'd them and in scanned documents) [...] as sore throat on 06/29/24 started. Ronny Mills, RN 06/30/2024 4:32 PM Addendum Zoey- [facility]- reports she faxed the clearance form again today. Reports she needs the clearance form and ov notes by next week or pre op clearance appt will have to be re-scheduled. [facility] to ask how she is [...] and states she is willing to see steel molder if pcp thinks she should. Please advise [...] Sanjay Yates CNP 2) Pt's Pre-Op at [facility] is scheduled for 07/10/24 Sanjay Yates, CARLOS.MEMORY CARE DIRECTOR 07/03/2024 3:34 PM Signed Has OV tomorrow. EKG scanned, ordered by Dr. Barrios, abnormal EKG 06/27/2024. Allergies As of Date: 06/28/2024 Noted Allergy Reaction SULFA (SULFONAMIDE ANTIBIOTICS) 12/05/2004 4 - Hives Date Reviewed: 06/27/2024 Reviewed by: Gabriela Britt APRN.GERIATRIC CASE MANAGER - Fully Assessed Reason for Visit: Pre-Surgical Clearance Form [Other] Primary Visit Diagnosis:Leukocytosis, unspecified type [D72.829] Order(s):COMPLETE BLOOD COUNT AND DIFFERENTIAL [SQCBCDIF] Order #: [id number] FUTURE Prescriptions as of 07/03/2024 - clobetasol [...] patient pre (more content not included)... Normal [facility] MR/PAT.Alexandre 06-28-2024 MR/PAT.HERO [facility] Medical Records Department [address] [place] [address] PAT - Anesthesia 06/28/24 1048 MR#: [id number] Acct: [id number] Name: EPI LANDAVERDE Rep #: [id number] : 1955 68 From: Mark Sanchez MD PCP: Dr. Eriberto Tovar MD Status:PRE SDC Y Race: C Location: [facility] Pre-Assessment Diagnosis/Proposed Procedure Planned Operative Procedure(s): ROBOTIC ASSISTED RIGHT TOTAL KNEE ARTHROPLASTY Anesthesia History Anesthesia History - research asst: Anesthesia History - research asst Hx Hospitalization No 06/21/24 13:04 Any Problems [...] take am of surgery PONV PONV - research asst: PONV - research asst Female Yes 06/21/24 13:04 HX of Motion [...] 04/20/24 10:48 Respiratory Assessment Respiratory Assessment - research asst: Respiratory Tract Infection Hx - research asst Hx Respiratory Tract Infection No 06/21/24 13:04 STOP Sleep Apnea STOP Sleep Apnea - research asst: STOP Sleep Apnea - research asst Hx Hypertension Yes: CONTROLLED WITH MED 06/21/24 [...] Tobacco Use History Tobacco Use History - research asst: Tobacco Use History - research asst Tobacco Use Smoking Status Never smoker 06/21/24 13:04 Hx Tobacco Use No 06/21/24 13:04 Years Smoking Packs Smoked per Day Smoking Cessation Date was within the last 15 years Hx Smoking Cessation Date Hx Smoking Cessation Counseling Hematologic Medial History Hematologic Hx - research asst: 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 Normal [facility] MRSA/SAID NASAL SCREENon MRSA+SAID SCRN Reason for Exam: PRE OP MRSA MRSA Positive A S. AUREUS S. aureus Negative [facility] Comment on above: Performed By: #### L 200.0400, M100.4001, M100.2000, L200.4175, M100.2900 #### [facility] Laboratory [address] [place], [address] 12 Lead EKGon 06-27-2024 12 Lead EKG [facility] Cardiovascular Services [address] [place] [address] 12 Lead EKG 06/27/24 1309 MR#: [id number] Acct: [id number] Name: EPI LANDAVERDE Rep #: [id number] : 1955 68 From: Nahum Peacock MD Attending Dr: Dr. Jose L Barrios MD Status: PRE [facility] Ordering Dr: Jose L Barrios MD Date: 06/27/24 Location: [facility] Sex: F C Admitted: Test Reason : [...] , age undetermined Abnormal ECG Confirmed by NAHUM PEACOCK MD ([id number]), associate entertainment editor TORIBIO ROBB ([id number]) on 06/28/2024 7:19:40 AM Referred By: Jose L Barrios Confirmed By: NAHUM PEACOCK MD 06/28/24 0719 Date Nahum Peacock MD CC: Dr. Eriberto Tovar MD; Dr. Jose L Barrios MD Signed Normal [facility] Albumin, Serumon 06-27-2024 Albumin [Mass/Vol] 4.3 g/dL Normal 3.4-4.8 [facility] Comment on above: Performed By: #### L 200.0400, M100.4001, M100.1999, L200.4175, M100.2900 #### [facility] Laboratory [address] [place], [address] Basic Metabolic Profile (BMP )on 06-27-2024 BUN/CRE 14.8 RATIO Normal 10-20 [facility] Comment on above: Performed By: #### L 200.0400, M100.4001, M100.1999, L200.4175, M100.2900 #### [facility] Laboratory [address] [place], [address] Calcium [Mass/Vol] 7.0 mg/dL Low 7.6-11.0 [facility] Comment on above: Performed By: #### L 200.0400, M100.4001, M100.1999, L200.4175, M100.2900 #### [facility] Laboratory [address] [place], [address] Chloride [Moles/Vol] 100 mmol/L Normal 98-108 [facility] Comment on above: Performed By: #### L 200.0400, M100.4001, M100.1999, L200.4175, M100.2900 #### [facility] Laboratory [address] [place], [address] CO2 [Moles/Vol] 22.8 mmol/L Normal 21.0-32.0 [facility] Comment on above: Performed By: #### L 200.0400, M100.4001, M100.1999, L200.4175, M100.2900 #### [facility] Laboratory [address] [place], [address] Creatinine [Mass/Vol] 1.06 mg/dL Normal 0.70-1.20 [facility] Comment on above: Performed By: #### L 200.0400, M100.4001, M100.1999, L200.4175, M100.2900 #### [facility] Laboratory [address] [place], [address] GAP 12 Normal 5-15 [facility] Comment on above: Performed By: #### L 200.0400, M100.4001, M100.1999, L200.4175, M100.2900 #### [facility] Laboratory [address] [place], [address] GFR/1.73 sq M.predicted among non-blacks MDRD (S/P/Bld) [Vol rate/Area] 57 mL/min/{1.73_m2} Low >60 [facility] Comment on above: Result Comment: mL/m in/1.73m2 CKD-EPI Creatinine Equation (2020) Performed By: #### L 200.0400, M100.4001, M100.1999, L200.4175, M100.2900 #### [facility] Laboratory [address] [place], [address] Glucose [Mass/Vol] 99 mg/dL Normal 70-99 [facility] Comment on above: Performed By: #### L 200.0400, M100.4001, M100.1999, L200.4175, M100.2900 #### [facility] Laboratory [address] [place], [address] Potassium [Moles/Vol] 4.2 mmol/L Normal 3.3-5.1 [facility] Comment on above: Performed By: #### L 200.0400, M100.4001, M100.2000, L200.4175, M100.2900 #### [facility] Laboratory [address] [place], [address] Sodium [Moles/Vol] 135 mmol/L Normal 133-145 [facility] Comment on above: Performed By: #### L 200.0400, M100.4001, M100.2000, L200.4175, M100.2900 #### [facility] Laboratory [address] [place], [address] Urea nitrogen [Mass/Vol] 16 mg/dL Normal 4-19 [facility] Comment on above: Performed By: #### L 200.0400, M100.4001, M100.2000, L200.4175, M100.2900 #### [facility] Laboratory [address] [place], [address] CBC W/Diff, Automatedon 2 -2024 Absolute Lymph 2.31 X10 3/uL Normal 0.83-4.51 [facility] Comment on above: Performed By: #### L 200.0400, M100.4001, M100.2000, L200.4175, M100.2900 #### [facility] Laboratory [address] [place], [address] Absolute Neut 10.2 X10 3/uL High 2.0-7.7 [facility] Comment on above: Performed By: #### L 200.0400, M100.4001, M100.2000, L200.4175, M100.2900 #### [facility] Laboratory [address] [place], [address] Basophils/100 WBC (Bld) 0.2 % Normal 0-1 [facility] Comment on above: Performed By: #### L 200.0400, M100.4001, M100.2000, L200.4175, M100.2900 #### [facility] Laboratory [address] [place], [address] Eosinophils/100 WBC (Bld) 0.5 % Normal 0-5 [facility] Comment on above: Performed By: #### L 200.0400, M100.4001, M100.2000, L200.4175, M100.2900 #### [facility] Laboratory [address] [place], [address] Erythrocyte distribution width (RBC) [Ratio] 14.0 % Normal 11.6-14.6 [facility] Comment on above: Performed By: #### L 200.0400, M100.4001, M100.2000, L200.4175, M100.2900 #### [facility] Laboratory [address] [place], [address] Hematocrit (Bld) [Volume fraction] 36.7 % Low 37-47 [facility] Comment on above: Performed By: #### L 200.0400, M100.4001, M100.2000, L200.4175, M100.2900 #### [facility] Laboratory [address] [place], [address] Hemoglobin (Bld) [Mass/Vol] 11.2 g/dL Low 12.0-15.0 [facility] Comment on above: Performed By: #### L 200.0400, M100.4001, M100.2000, L200.4175, M100.2900 #### [facility] Laboratory [address] [place], [address] IG% 0.400 Normal 0.0-0.9 [facility] Comment on above: Result Comment: IG% - Immature Granulocytes (promyelocytes, myelocytes and metamyelocytes) > 1% indicates that a LEFT SHIFT is Present. Performed By: #### L 200.0400, M100.4001, M100.2000, L200.4175, M100.2900 #### [facility] Laboratory [address] [place], [address] Lymphocytes/100 WBC (Bld) 17.1 % Low 19-41 [facility] Comment on above: Performed By: #### L 200.0400, M100.4001, M100.2000, L200.4175, M100.2900 #### [facility] Laboratory [address] [place], [address] MCH (RBC) [Entitic mass] 24.0 pg Low 27.0-32.0 [facility] Comment on above: Performed By: #### L 200.0400, M100.4001, M100.2000, L200.4175, M100.2900 #### [facility] Laboratory [address] [place], [address] MCHC (RBC) [Mass/Vol] 30.5 g/dL Low 32-36 [facility] Comment on above: Performed By: #### L 200.0400, M100.4001, M100.2000, L200.4175, M100.2900 #### [facility] Laboratory [address] [place], [address] MCV (RBC) [Entitic vol] 78.8 fL Low 81-99 [facility] Comment on above: Performed By: #### L 200.0400, M100.4001, M100.2000, L200.4175, M100.2900 #### [facility] Laboratory [address] [place], [address] Monocytes/100 WBC (Bld) 6.3 % Normal 0-10 [facility] Comment on above: Performed By: #### L 200.0400, M100.4001, M100.2000, L200.4175, M100.2900 #### [facility] Laboratory [address] [place], [address] Neutrophils/100 WBC (Bld) 75.5 % High 47-70 [facility] Comment on above: Performed By: #### L 200.0400, M100.4001, M100.2000, L200.4175, M100.2900 #### [facility] Laboratory [address] [place], [address] Nucleated RBC (Bld) [#/Vol] 0 10*3/uL Normal 0-5 [facility] Comment on above: Performed By: #### L 200.0400, M100.4001, M100.2000, L200.4175, M100.2900 #### [facility] Laboratory [address] [place], [address] Platelet mean volume (Bld) [Entitic vol] 8.6 fL Normal 6.2-12.0 [facility] Comment on above: Performed By: #### L 200.0400, M100.4001, M100.2000, L200.4175, M100.2900 #### [facility] Laboratory [address] [place], [address] Platelets (Bld) [#/Vol] 412 10*3/uL Normal 150-450 [facility] Comment on above: Performed By: #### L 200.0400, M100.4001, M100.1999, L200.4175, M100.2900 #### [facility] Laboratory [address] [place], [address] RBC (Bld) [#/Vol] 4.66 10*6/uL Normal 4.2-5.4 [facility] Comment on above: Performed By: #### L 200.0400, M100.4001, M100.2000, L200.4175, M100.2900 #### [facility] Laboratory [address] [place], [address] RDW SD 39.7 fl Normal 35.1-43.9 [facility] Comment on above: Performed By: #### L 200.0400, M100.4001, M100.2000, L200.4175, M100.2900 #### [facility] Laboratory [address] [place], [address] WBC (Bld) [#/Vol] 13.5 10*3/uL High 4.4-11.0 [facility] Comment on above: Performed By: #### L 200.0400, M100.4001, M100.2000, L200.4175, M100.2900 #### [facility] Laboratory [address] [place], [address] Magnesiumon 06-27-2024 Magnesium [Mass/Vol] 2.4 mg/dL High 1.5-2.2 [facility] Comment on above: Performed By: #### L 200.0400, M100.4001, M100.2000, L200.4175, M100.2900 #### [facility] Laboratory [address] [place], [address] Extremity Lower without Cont raon 06-26-2024 Extremity Lower without Contra [facility] Imaging Services [address] [place] [address] Extremity Lower without Contra MR#: [id number] Acct: [id number] Name: EPI LANDAVERDE Rep #: [id number] : 1955 F 68 From: [place] PCP: Dr. Eriberto Tovar MD Status: REG CLI Study: Extremity Lower without Contra Date of Exam: 0 06/26/24 Exam# [id number] Ordering Dr: Jose L Barrios MD EXAM: [facility] protocol CT right knee CLINICAL HISTORY: Kelsey protocol, preoperative COMPARISON: None provided. TECHNIQUE: [facility] protocol CT right knee series. FINDINGS: Limited imaging of the right hip shows no significant abnormality. Limited imaging of the right ankle shows no significant abnormality. The right knee demonstrates ekch-up-rsfqhwgy tricompartmental degenerative changes, with severe patellofemoral joint narrowing and at least moderate joint narrowing (nonweightbearing) in the medial and patellofemoral compartments. Multiple loose intra-articular bodies are seen posteriorly, as well as medially and laterally. No significant joint effusion is evident. CT/Extremity Lower without Contra IMPRESSION: Advanced right knee degenerative changes. Successful Thiago protocol. Reading Location: [id number] CC: Dr. Eriberto Tovar MD; Dr. Jose L Barrios MD Whiting Machine Operator: Signed Normal [facility] MR/BMSKhadijahBPon 06-25-2024 MR/BMSKhadijahBP [facility] [place] [place] [address] [place] [address], [address] [place] [address] OFFICE VISIT Date of Service: 06/20/24 MR#: [id number] Acct: [id number] Name: EPI LANDAVERDE Rep #: [id number] : 1955 Provider: [facility] Justine rubio Age/Sex: 68/F Location: [facility] Status: Signed Intake Vital Signs 04/20/24 10:48 05/23/24 07:04 06/25/24 08:55 Height 5 ft 7 in 5 ft 7 in 5 ft 7 in BP Intake Visit Reasons: follow up Allergies Sulfa (Sulfonamide Antibiotics) Allergy (Verified 06/21/24 12:54) Hives Have you fallen in the past year?: No PFSH Medical History (Updated 06/25/24 @ 08:53 by Justine Romano [facility]) Wears glasses Low iron History of [...] smoker HPI History of Present Illness HPI: Epi Landaverde (Beth) is a 68 year-old female [...] to ensure her care after surgery. Reinforced Epi's efforts as she has prepared food and is hiring someone to help following the surgery. 's mood and behaviors have been relatively stable. However, she worries that he will become agitated by her reduced ability to meet his needs following her surgery. Epi continues to find ways to work around his antagonistic behavior. She discussed ambivalence related to the marriage and having remained in it. Epi discussed early years of marriage and impact of it on her. Encouraged verbalization of emotions while providing support. Worked on coping and self-care. Epi identified her lawanda as having been helpful in coping. No [...] self, o (more content not included)... 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 Normal [facility] CNOVon 06-19-2024 CNOV Office Visit (INTMWS ) EPI LANDAVERDE ([id number]) 1955 F Date Time Provider Department 06/19/24 2:00 PM ERIBERTO TOVAR INTMWS During your visit today, we recorded the following information about you: Pulse Blood pressure Weight Height 74/minute 111/65 78.1 kg 1.689 m Eriberto Tovar MD 06/19/2024 3:21 PM Signed This note was created using NoteWriter. Subjective Epi Landaverde is a 68 year old female. HISTORY Epi Landaverde is a 68 year old lady here for pre-op evaluation as requested by Dr. Barrios. Epi Landaverde has surgery scheduled on 07/17/24 for Right TKA at [facility]. Nasrin is a 68-year-old female presenting for a preoperative evaluation for a right TKA scheduled with Dr. Barrios on 07/17/2024 at [facility]. Nasrin reports a history of postoperative emesis following [...] flatulence, managed with 4 Gas-X pills before confucianism, but denies eructation. She drinks one carbonated [...] Take 2 (more content not included)... Normal [facility] MR/BMS.BPon 05-23-2024 MR/BMS.BP [facility] [place] [place] [address] [place] [address], [address] [place] [address] OFFICE VISIT Date of Service: 05/22/24 MR#: [id number] Acct: [id number] Name: EPI LANDAVERDE Rep #: [id number] : 1955 [facility] Age/Sex: 68/F Location: [facility] Status: Signed Intake Vital Signs 10/01/23 06:46 05/05/24 17:33 05/23/24 07:04 Height 5 ft 7 in 5 ft 7 in 5 ft 7 in BP Intake Visit Reasons: follow up Allergies Sulfa (Sulfonamide Antibiotics) Allergy (Verified 09/24/23 09:13) Hives Have you fallen in the past year?: No PFSH Medical History (Updated 05/05/24 @ 17:30 by Justine Romano [facility]) Post-menopausal Depression Anxiety Arthritis Anemia High [...] smoker HPI History of Present Illness HPI: Epi Landaverde is a 68 year-old female returning for therapy. She discussed ambivalence related to her marriage and how she has been impacted by her 's behaviors throughout their marriage. Epi discussed reasons she has remained in the [...] and d (more content not included)... Normal [facility] VALENTE SCREENING W TOMOon 05-05 VALENTE SCREENING W MUNA * * *Final Report* * * DATE OF EXAM: May 05 2024 11:32AM WRW [id number] - VALENTE SCREENING W MUNA / PROCEDURE REASON: * * * * Physician Interpretation * * * * RESULT: [facility] [address] [id number] #[id number] - VALENTE SCREENING W MUNA HISTORY: 68 [...] patient has dense breast tissue. Interpreting Radiologist: Lilo Garcia M.D. Electronically signed on: 05/06/2024 Whiting Machine Operator: DEJAH Transcribe Date/Time: May 05 2024 11:22A Dictated by: LILO GARCIA MD This examination was interpreted and the report reviewed and electronically signed by: LILO GARCIA MD on May 06 2024 7:09AM EST [id number] Normal [facility] MR/BMS.BPon 05-05-2024 MR/BMS.BP [address], [address] [place] [address] OFFICE VISIT Date of Service: 05/05/24 MR#: [id number] Acct: [id number] Name: EPI LANDAVERDE Rep #: [id number] : 1955 [facility] Age/Sex: 68/F Location: [facility] Status: Signed Intake Vital Signs 10/01/23 06:46 04/20/24 10:48 05/05/24 17:33 Height 5 ft 7 in 5 ft 7 in 5 ft 7 in BP Intake Visit Reasons: follow up Allergies Sulfa (Sulfonamide Antibiotics) Allergy (Verified 09/24/23 09:13) Hives Have you fallen in the past year?: No PFSH Medical History (Updated 05/05/24 @ 17:30 by Justine Romano [facility]) Post-menopausal Depression Anxiety Arthritis Anemia High [...] smoker HPI History of Present Illness HPI: Epi Landaverde is a 68 year-old female returning for therapy. She reported recent increased positive interactions with but anxiety as these do not last. Epi discussed anxiety and trying hard to not set him off. She discussed long-term impact of his behaviors on her, impact of his behaviors on her daughters, and ambivalence about remaining in the marriage. Encouraged verbalization of emotions while providing support. Worked on utilization of support and coping. Epi is planning on having a knee replacement [...] (minutes): 60 Type of visit: psychotherapy and dzee-qn-zcvy Clinical Quality Measures Falls Risk Screening/Assistive Devices Have you fallen in the past year?: No C[place] [address] PSYTX W PT 60 MINUTES Patient Type Established Diagnoses Anxiety F41.9 Depression F32.A (more content not included)... Normal [facility] Magnesium SerPl-mCncon 05-02 Magnesium [Mass/Vol] 2.4 mg/dL High 1.7-2.3 [facility] Comment on above: Order Comment: Speci men Type: BLOOD SPECIMENOrdering Facility: [facility] Address: [address] [place] [address] Performed By: #### 1 9123-9 ####[facility] [id number] [place] [address] [place] T3Free SerPl-mCncon 05-02-19 25 Free T3 [Mass/Vol] 3.3 pg/mL Normal 2.3-4.1 [facility] Comment on above: Order Comment: Speci men Type: BLOOD SPECIMENOrdering Facility: [facility] Address: [address] [place] [address] Performed By: #### 2 132-9, 3016-3, 3051-0, 3024-7 ####[facility] LABCLIA [id number] [facility] [id number] [address] [place] T4 Free SerPl-mCncon 025 Free T4 [Mass/Vol] 1.2 ng/dL Normal 0.9-1.7 [facility] Comment on above: Order Comment: Speci men Type: BLOOD SPECIMENOrdering Facility: [facility] Address: [address] [place] [address] Performed By: #### 2 132-9, 3016-3, 3051-0, 3027 ####[facility] LABCLIA [id number] [place] [id number] [place] TSH SerPl-aCncon 05-02-2024 TSH Qn 1.150 m[IU]/L Normal 0.270-4.200 [facility] Comment on above: Order Comment: Speci men Type: BLOOD SPECIMENOrdering Facility: [facility] Address: [address] [place] [address] Performed By: #### 2 132-9, 3016-3, 3051-0, 3027 ####[facility] LABIA [id number] [place] [address] [place] Vit B12 SerPl-mCncon 025 Cobalamin (Vitamin B12) [Mass/Vol] 738 pg/mL Normal 232-1245 [facility] Comment on above: Order Comment: Speci men Type: BLOOD SPECIMENOrdering Facility: [facility] Address: [address] [place] [address] Performed By: #### 2 132-9, 3016-3, 305-0, 3023-10 ####[facility] LABIA [id number] [place] [id number] [place] MR/BMS.BPon 04-20-2024 MR/BMS.BP [address], [address] [place] [address] OFFICE VISIT Date of Service: 04/14/24 MR#: [id number] Acct: [id number] Name: EPI LANDAVERDE Rep #: [id number] : 1955 Provider: [facility] Justine rubio Age/Sex: 68/F Location: [facility] Status: Signed Intake Vital Signs 10/01/23 06:46 [...] and jamie (more content not included)... Normal [facility] MR/BMS.BPon 03-28-2024 MR/[place] [address] OFFICE VISIT Date of Service: 03/23/24 MR#: [id number] Acct: [id number] Name: EPI LANDAVERDE Rep #: [id number] : 1955 [facility] Age/Sex: 68/F Location[facility] Status: Signed Intake Vital Signs 10/01/23 06:46 [...] begin BH therapy. 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 Her father was a feliz who also worked 12 hours daily in a factory. Her mother was frequently ill and of a heart attack at age 35. Her paternal grandparents often put her mother down. Pt.'s lawanda is important to her she currently is actively involved in a [employer] confucianism. Prior to this, she attended a [employer] confucianism. Much of her social time involves confucianism activities. Pt. and her when she was 16 and he was 18. The marriage has been very difficult for her. They have 2 daughters who are currently 51 and 47 years old and a grandson who is 11. Pt. took care of her grandson for the first five years of his life. 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 Her is a former helicopter mechanic. Pt. and recently moved to a condo [...] none Violent Behavior (more content not included)... [facility] 03-14-2024 [facility] Office Visit (INTMWS ) EPI LANDAVERDE ([id number]) 1955 F Date Time Provider Department 03/14/24 3:20 PM ERIBERTO TOVAR INTMWS During your visit today, we recorded the following information about you: Temperature Pulse Respiration Blood pressure 98 degrees 81/minute 16/minute 118/68 Weight 75.7 kg Eriberto Tovar MD 03/14/2024 4:44 PM Signed This note was created using [email or web address]. Subjective Epi Landaverde is a 68 year old female. Patient presents with: F/U 6 months SUBJECTIVE: Epi Landaverde is a 68 year old year old lady here today for 6 month follow up appointment for review of medical conditions. Epi Landaverde is a 68-year-old female with a history of hypercholesterolemia, presenting for a 6-month follow-up. Epi reports recent lab results showing elevated magnesium and vitamin B levels. She has since discontinued her B-complex supplement and reduced her magnesium intake to 250 mg at bedtime. She is also taking calcium supplements. Epi reports a recent anal fissure, which she attributes to insufficient magnesium intake and is now taking a stool softener. She reports experiencing heat intolerance and excessive sweating, particularly on her forehead, over the past few months. 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 She is unable to wear socks or heavy clothing due to the heat. She denies sweating on her feet or hands. Epi also reports unintentional weight loss and persistent fatigue, despite getting good sleep with the help of trazodone. She denies taking any thyroid supplements. Epi reports a recent colonoscopy that was incomplete due to inadequate bowel preparation, despite following the instructions. She is scheduled for a repeat colonoscopy next year and is concerned about having to discontinue diclofenac for 5 days, which she finds painful. Epi also reports a right knee replacement surgery scheduled for July 17 at [facility]. She has declined further COVID-19 vaccinations but has received her flu shot. Epi is due for a mammogram and plans [...] complex(B COMPLE (more content not included)... Normal [facility] 03-10-2024 CNPN Telephone (INTMWS) EPI LANDAVERDE ([id number]) 1955 F Date Time Provider Department 03/10/24 ERIBERTO TOVAR INTWS During your visit today, we recorded the following information about you: Manda Welch RN 03/10/2024 12:03 PM Signed Patient calls to [...] is treated with clobetasol and SHARI through [employer] for the Lichen sclerosus. Reviewed care advice. Patient has glycerin suppositories at home as well. Recommended she try one of those if she continues to have trouble that is causing pressure and skin issues. Patient also drinking increased water and walking as much as she can but area is rather painful. Patient requests call back at [phone] KILEY Payan Terri, APRN.MEMORY CARE DIRECTOR 03/10/2024 12:24 PM Signed What did she [...] Date Reviewed: 02/28/2024 Reviewed by: Richy Dominguez APRN.GERIATRIC CASE MANAGER - Fully Assessed Reason for Visit: Patient Question [6191] Prescriptions as of 03/10/2024 - clobetasol (TEMOVATE) [...] ANEMIA NOS [D64.9] 06/01/2008 DISC DEGENERATION NOS [[id number]] 06/04/2008 Unspecified sleep apnea [G47.30] 07/31/2008 02/25/2016 [...] menopausal or female climacteric st*01/12/2012 02/25/2016 Dyspareunia [XUN6819] 05/23/2012 Change in bowel habits [R19.4] 11/23/2013 (more content not included)... Normal [facility] ([id number]) 1955 F Date Time Provider Department 03/01/24 ERIBERTO TOVAR INTMWS During your visit today, we recorded the following information about you: Rossy Mendoza LPN 03/01/2024 4:09 PM Signed Doe Obando (unsure of spelling) called form [facility] Chemistry lab with a correction on [...] ANEMIA NOS [D64.9] 06/01/2008 DISC DEGENERATION NOS [[id number]] 06/04/2008 Unspecified sleep apnea [G47.30] 07/31/2008 02/25/2016 [...] menopausal or female climacteric st*01/12/2012 02/25/2016 Dyspareunia [HMX8764] 05/23/2012 Change in bowel habits [R19.4] 11/23/2013 02/25/2016 GERD (gastroesophageal reflux disease) [K21.9] 11/23/2013 04/30/2017 Obstructive sleep apnea [G47.33] Generalized anxiety disorder [F41.1] 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.*07/13/2023 Screen for colon cancer [Z12.11] 01/27/2024 Encounter Status:Closed by MERLY IZQUIERDO on 03/08/24 Normal [facility] 25(OH)D3 [facility] 25-hydroxyvitamin D3 [Mass/Vol] 50.4 ng/mL Normal 31.0-80.0 [facility] Comment on above: Order Comment: Speci men Type: BLOOD SPECIMENOrdering Facility: [facility] Address: [address] [place] [address] Performed By: #### 1 989-3 ####[facility] LABCLIA [id number] [place] [address], [place] [address] [facility] CNOVon 02-28-2024 CNOV Office Visit (INTMWS ) EPI LANDAVERDE ([id number]) 1955 F Date Time Provider Department 02/28/24 3:40 PM RICHY DOMINGUEZ INTMWS During your visit today, we recorded the following information about you: Pulse Blood pressure Weight 94/minute 108/60 74.8 kg Richy Dominguez APRN.GERIATRIC CASE MANAGER 02/28/2024 4:02 PM Signed SUBJECTIVE Epi Landaverde is a 68 year old female here today for acute concern. Chief Complaint Patient presents with: Weight Loss: and states feeling hot all the time HPI Eip Landaverde is a 68 year old female. [...] Disorder Obstructive Sleep Apnea Comment: DISHA Moss F) [phone] P) [phone] [facility] for compliance report Dyspareunia - 05/23/2012 [...] Skin: General: (more content not included)... Normal [facility] CNOV Office Visit (OBGYWM ) EPI LANDAVERDE ([id number]) 1955 F Date Time Provider Department 02/28/24 1:45 PM CASANDRA BLAIR OBGYWM During your visit today, we recorded the following information about you: Blood pressure Weight 102/62 75.2 kg Casandra Blair APRN.CN 02/28/2024 2:59 PM Signed Library Acquisitions Technician offered: Patient declines. Epi Blanquita is a 68 year old female who [...] discussed with the Patient or Patient's Authorized Integrated Specialist. As applicable, any other physician, advance practice provider, medical student, or other health professional student that will be observing or involved in the sensitive examination for educational or training purposes was discussed with the Patient or Authorized Integrated Specialist. The Patient or Authorized Integrated Specialist has agreed to proceed with the sensitive [...] RTO - as needed / yearly exams Casandra Blair APRN.CNM Allergies As of Date: 02/28/2024 Noted Allergy Reaction SULFA (SULFONAMIDE ANTIBIOTICS) 12/05/2004 4 - Hives Date Reviewed: 02/28/2024 Reviewed by: Doreen Taylor MA - Fully Assessed Reason for [...] twice dominique (more content not included)... Normal [facility] Comprehensive metabolic 2000 panelon 02-28-2024 Albumin [Mass/Vol] 4.5 g/dL Normal 3.9-4.9 [facility] Comment on above: Order Comment: Speci men Type: BLOOD SPECIMENOrdering Facility: [facility] Address: [address] [place] [address] Performed By: #### 3 051-0, 42976-4, 38424-3, 3023-7 ####[facility] LABCLIA [id number] [place] [address] [place] ALP [Catalytic activity/Vol] 88 U/L Normal 34-123 [facility] Comment on above: Order Comment: Speci men Type: BLOOD SPECIMENOrdering Facility: [facility] Address: [address] [place] [address] Performed By: #### 3 051-0, 92445-3, 27649-7, 302-7 ####[facility] LABCLIA [id number] [place] [address] [place] ALT [Catalytic activity/Vol] 25 U/L Normal 7-38 [facility] Comment on above: Order Comment: Speci men Type: BLOOD SPECIMENOrdering Facility: [facility] Address: [address] [place] [address] Performed By: #### 3 051-0, 24532-8, 71094-2, 3023-7 ####[facility] LABCLIA [id number] [place] [id number] [place] Anion gap [Moles/Vol] 11 mmol/L Normal 8-15 [facility] Comment on above: Order Comment: Speci men Type: BLOOD SPECIMENOrdering Facility: [facility] Address: [address] [place] [address] Performed By: #### 3 051-0, 16227-3, 87592-0, 302-7 ####[facility] LABCLIA [id number] [address] [address] [place] AST [Catalytic activity/Vol] 19 U/L Normal 13-35 [facility] Comment on above: Order Comment: Speci men Type: BLOOD SPECIMENOrdering Facility: [facility] Address: [address] [place] [address] Performed By: #### 3 051-0, 80453-0, 82507-2, 3024-7 ####[facility] LABCLIA [id number] [address] [address] [place] Bilirubin [Mass/Vol] mg/dL Low 0.2-1.3 [facility] Comment on above: Order Comment: Speci men Type: BLOOD SPECIMENOrdering Facility: [facility] Address: [address] [place] [address] Performed By: #### 3 051-0, 55032-0, 31143-9, 3024-7 ####[facility] LABCLIA [id number] [place] [id number] [place] Calcium [Mass/Vol] 9.6 mg/dL Normal 8.5-10.2 [facility] Comment on above: Order Comment: Speci men Type: BLOOD SPECIMENOrdering Facility: [facility] Address: [address] [place] [address] Performed By: #### 3 051-0, 89200-9, 83258-4, 3024-7 ####[facility] LABCLIA [id number] [address] [address] [place] Chloride [Moles/Vol] 102 mmol/L Normal 98-107 [facility] Comment on above: Order Comment: Speci men Type: BLOOD SPECIMENOrdering Facility: [facility] Address: [address] [place] [address] Performed By: #### 3 051-0, 73671-2, 58208-7, 3024-7 ####[facility] LABCLIA [id number] [place] [address] [place] CO2 [Moles/Vol] 25 mmol/L Normal 22-30 [facility] Comment on above: Order Comment: Speci men Type: BLOOD SPECIMENOrdering Facility: [facility] Address: [address] [place] [address] Performed By: #### 3 051-0, 34142-2, 45914-3, 3024-7 ####[facility] LABIA [id number] [place] [address] [place] Creatinine [Mass/Vol] 0.98 mg/dL High 0.58-0.96 [facility] Comment on above: Order Comment: Speci men Type: BLOOD SPECIMENOrdering Facility: [facility] Address: [address] [place] [address] Performed By: #### 3 051-0, 94254-5, 47319-8, 3024-7 ####[facility] [id number] [place] [id number] [place] Creatinine and Glomerular filtration rate.predicted panel (S/P/Bld) 63 mL/min/1.73m??? Normal >=60 [facility] Comment on above: Order Comment: Speci men Type: BLOOD SPECIMENOrdering Facility: [facility] Address: [address] [place] [address] Result Comment: Lani mated Glomerular Filtration Rate [...] actual GFR. Performed By: #### 3 051-0, 63463-8, 22779-4, 3024-7 ####[facility] LABIA [id number] [address] [address] [place] Glucose [Mass/Vol] 102 mg/dL High 74-99 [facility] Comment on above: Order Comment: Speci men Type: BLOOD SPECIMENOrdering Facility: [facility] Address: [address] [place] [address] Result Comment: The [place] Diabetes Association (ADA) provides guidance for cutoff [...] Standards of Medical Care in Diabetes 2016, [place] [employer] Association. Diabetes Care. 2016.39(Suppl 1). Performed By: #### 3 051-0, 78987-2, 90987-2, 3024-7 ####[facility] LABCLIA [id number] [place] [address] [place] Potassium [Moles/Vol] 4.6 mmol/L Normal 3.7-5.1 [facility] Comment on above: Order Comment: Speci men Type: BLOOD SPECIMENOrdering Facility: [facility] Address: [address] [place] [address] Performed By: #### 3 051-0, 43012-8, 91364-1, 3024-7 ####[facility] LABCLIA [id number] [place] [address] [place] Protein [Mass/Vol] 7.0 g/dL Normal 6.3-8.0 [facility] Comment on above: Order Comment: Speci men Type: BLOOD SPECIMENOrdering Facility: [facility] Address: [address] [place] [address] Performed By: #### 3 051-0, 50534-4, 43448-0, 3024-7 ####[facility] LABIA [id number] [address] [address] [place] Sodium [Moles/Vol] 138 mmol/L Normal 136-144 [facility] Comment on above: Order Comment: Speci men Type: BLOOD SPECIMENOrdering Facility: [facility] Address: [address] [place] [address] Performed By: #### 3 051-0, 07092-8, 78227-3, 3024-7 ####[facility] LABIA [id number] [place] [address] [place] Urea nitrogen [Mass/Vol] 13 mg/dL Normal 7-21 [facility] Comment on above: Order Comment: Speci men Type: BLOOD SPECIMENOrdering Facility: [facility] Address: [address] [place] [address] Performed By: #### 3 051-0, 93748-2, 63900-8, 3024-7 ####[facility] [id number] [place] [id number] [place] Ferritin SerPl-mCncon 2023 Ferritin [Mass/Vol] 223.0 ng/mL High 14.7-205.1 [facility] Comment on above: Order Comment: Speci men Type: BLOOD SPECIMENOrdering Facility: [facility] Address: [address] [place] [address] Performed By: #### 3 016-3, 2276-4, 95429-0, 2132-9 ####[facility] [id number] [place] [address] [place] HbA1c (Bld)on 02-28-2024 Average glucose Estimated from glycated hemoglobin (Bld) [Mass/Vol] 111 mg/dL Normal [facility] Comment on above: Order Comment: Speci men Type: BLOOD SPECIMENOrdering Facility: [facility] Address: [address] [place] [address] Result Comment: eAG: (Estimated average glucose) is a calculated value from HgbA1c and is contracts representative of the average blood glucose level in the last 2-3 month period. Performed By: #### 5 5454-3 ####[facility] LABCLIA [id number] [place] [address] [place] HbA1c (Bld) [Mass fraction] 5.5 % Normal 4.3-5.6 [facility] Comment on above: Order Comment: Speci men Type: BLOOD SPECIMENOrdering Facility: [facility] Address: [address] [place] [address] Result Comment: [place] Diabetes Association guidelines indicate that patients with HgbA1c in the range 5.7-6.4% are at increased risk for development of diabetes, and intervention by lifestyle modification may be beneficial. HgbA1c greater or equal to 6.5% is considered diagnostic of diabetes. Performed By: #### 5 5454-3 ####[facility] LABCLIA [id number] [place] [address] [place] Iron and Iron binding capaci ty panelon 02-28-2024 Iron [Mass/Vol] 105 ug/dL Normal 41-186 [facility] Comment on above: Order Comment: Yonny franks Type: BLOOD SPECIMENOrdering Facility: [facility] Address: [address] [place] [address] Performed By: #### 3 051-0, 72286-0, 36542-6, 3024-7 ####[facility] LABCLIA [id number] [address] [place] Iron binding capacity [Mass/Vol] 304 ug/dL Normal 232-386 [facility] Comment on above: Order Comment: Yonny franks Type: BLOOD SPECIMENOrdering Facility: [facility] Address: [address] [place] [address] Performed By: #### 3 051-0, 00749-9, 94939-5, 3024-7 ####[facility] LABCLIA [id number] [place] [address] [place] Iron/TIBC [Molar ratio] 34.5 % Normal 15.0-57.0 [facility] Comment on above: Order Comment: Speci men Type: BLOOD SPECIMENOrdering Facility: [facility] Address: [address] [place] [address] Performed By: #### 3 051-0, 96767-7, 03250-1, 3024-7 ####[facility] LABCLIA [id number] [place] [address] [place] Magnesium SerPl-mCncon 02-27 Magnesium [Mass/Vol] 2.5 mg/dL High 1.7-2.3 [facility] Comment on above: Order Comment: Speci men Type: BLOOD SPECIMENOrdering Facility: [facility] Address: [address] [place] [address] Performed By: #### 3 016-3, 2276-4, 94517-7, 2132-9 ####[facility] LABCLIA [id number] [place] [address] [place] T3Free SerPl-mCncon 02-27-20 24 Free T3 [Mass/Vol] 5.4 pg/mL High 2.3-4.1 [facility] Comment on above: Order Comment: Speci men Type: BLOOD SPECIMENOrdering Facility: [facility] Address: [address] [place] [address] Result Comment: Kaelyn ected result: Previously reported as 6.1 pg/mL on 02/29/2024 at 12:00 PM EST. Performed By: #### 3 051-0, 85715-0, 46594-0, 3024-7 ####[facility] LABCLIA [id number] [place] [address] [place] T4 Free SerPl-mCncon 02-27-2 024 Free T4 [Mass/Vol] 1.8 ng/dL High 0.9-1.7 [facility] Comment on above: Order Comment: Speci men Type: BLOOD SPECIMENOrdering Facility: [facility] Address: [address] [place] [address] Performed By: #### 3 051-0, 99236-2, 21161-9, 3024-7 ####[facility] LABCLIA [id number] [place] [address] [place] TSH SerPl-aCncon 02-28-2024 TSH Qn 1.560 m[IU]/L Normal 0.270-4.200 [facility] Comment on above: Order Comment: Speci men Type: BLOOD SPECIMENOrdering Facility: [facility] Address: [address] [place] [address] Performed By: #### 3 016-3, 6-4, , 2131-12 ####[facility] LABCLIA [id number] [place] [address] [place] Vit B12 SerPl-mCncon 024 Cobalamin (Vitamin B12) [Mass/Vol] 1671 pg/mL High 232-1245 [facility] Comment on above: Order Comment: Speci men Type: BLOOD SPECIMENOrdering Facility: [facility] Address: [address] [place] [address] Performed By: #### 3 016-3, 2275-4, , 2131-12 ####[facility] LABIA [id number] [address] [place] CBC panel Auto (Bld)on 02-23 Erythrocyte distribution width (RBC) [Ratio] 13.8 % Normal 11.5-15.0 [facility] Comment on above: Order Comment: Speci men Type: BLOOD SPECIMENOrdering Facility: [facility] Address: [address] [place] [address] Performed By: #### 5 8410-2 ####[facility] [id number] [address] [place] Hematocrit (Bld) [Volume fraction] 38.7 % Normal 36.0-46.0 [facility] Comment on above: Order Comment: Speci men Type: BLOOD SPECIMENOrdering Facility: [facility] Address: [address] [place] [address] Performed By: #### 5 8410-2 ####[facility] [id number] [place] [address] [place] Hemoglobin (Bld) [Mass/Vol] 12.1 g/dL Normal 11.5-15.5 [facility] Comment on above: Order Comment: Speci men Type: BLOOD SPECIMENOrdering Facility: [facility] Address: [address] [place] [address] Performed By: #### 5 8410-2 ####[facility] [id number] [place] [address] [place] MCH (RBC) [Entitic mass] 23.7 pg Low 26.0-34.0 [facility] Comment on above: Order Comment: Speci men Type: BLOOD SPECIMENOrdering Facility: [facility] Address: [address] [place] [address] Performed By: #### 5 8410-2 ####[facility] [id number] [place] [address] [place] MCHC (RBC) [Mass/Vol] 31.3 g/dL Normal 30.5-36.0 [facility] Comment on above: Order Comment: Speci men Type: BLOOD SPECIMENOrdering Facility: [facility] Address: [address] [place] [address] Performed By: #### 5 8410-2 ####[facility] [id number] [place] [address] [place] MCV (RBC) [Entitic vol] 75.9 fL Low 80.0-100.0 [facility] Comment on above: Order Comment: Speci men Type: BLOOD SPECIMENOrdering Facility: [facility] Address: [address] [place] [address] Performed By: #### 5 8410-2 ####[facility] MARTHA DEL ROSARIONCGABBY [id number] [place] [address] [place] Nucleated RBC (Bld) [#/Vol] 10*3/uL Normal <0.01 [facility] Comment on above: Order Comment: Speci men Type: BLOOD SPECIMENOrdering Facility: [facility] Address: [address] [place] [address] Performed By: #### 5 8410-2 ####[facility] INSTITUTENCGABBY [id number] [place] [address] [place] Platelet mean volume (Bld) [Entitic vol] 8.4 fL Low 9.0-12.7 [facility] Comment on above: Order Comment: Speci men Type: BLOOD SPECIMENOrdering Facility: [facility] Address: [address] [place] [address] Performed By: #### 5 8410-2 ####[facility] INSTITUTENCA [id number] [place] [address] [place] Platelets (Bld) [#/Vol] 381 10*3/uL Normal 150-400 [facility] Comment on above: Order Comment: Speci men Type: BLOOD SPECIMENOrdering Facility: [facility] Address: [address] [place] [address] Performed By: #### 5 8410-2 ####[facility] INSTITUTENCLIA [id number] [place] [address] [place] RBC (Bld) [#/Vol] 5.10 10*6/uL Normal 3.90-5.20 [facility] Comment on above: Order Comment: Speci men Type: BLOOD SPECIMENOrdering Facility: [facility] Address: [address] [place] [address] Performed By: #### 5 8410-2 ####[facility] IN[facility]UTENCLIA [id number] [place] [address] [place] WBC (Bld) [#/Vol] 10.85 10*3/uL Normal 3.70-11.00 [facility] Comment on above: Order Comment: Speci men Type: BLOOD SPECIMENOrdering Facility: [facility] Address: [address] [place] [id number] Performed By: #### 5 8410-2 ####[facility] INSTITUTENCLIA [id number] [place] [address] [place] [id number] 01-27-2024 [id number] HNO ID: [id number] Author: SAKINA LOPES RN Service: ? Author Type: Registered Nurse Type: [id number] Filed: 01/27/2024 12:57 Note Text: The patient received a copy of Colonoscopy discharge instructions that contain information for how to contact the physician who performed the procedure and when to seek medical care. Normal [facility] Colonoscopyon 01-27-2024 Colonoscopy [facility] Gastrointestinal Endoscopy Patient Name: Epi Landaverde Procedure Date: 01/27/2024 11:42 AM Date of : 1955 Admit Type: Outpatient Age: 68 Gender: Female Note Status: Finalized Procedure: Colonoscopy Indications: Screening for colorectal malignant neoplasm Providers: Ghulam Choe MD Patient Profile: This is a [...] be scheduled. Procedure Code(s): --- Professional --- 03945, Colonoscopy, flexible; diagnostic, including collection of specimen(s) by brushing or washing, when performed (separate procedure) G0500, Moderate sedation services provided by the same physician or other qualified health managed care coordinator performing a gastrointestinal endoscopic service that sedation supports, requiring the presence of an independent trained observer to assist in the monitoring of the patient's level of consciousness and physiological status; initial 15 minutes of intra-service time; patient age 5 years or older (additional time may be reported with 10822, as appropriate) Diagnosis Code(s): --- Professional --- Z12.11, Encounter for screening for malignant neoplasm of colon CPT copyright 2020 [employer]. All rights reserved. The codes documented in this report are preliminary and upon surgical coder review may be revised to meet current compliance requirements. (more content not included)... Normal [facility] Colonoscopy Study observatio non 01-27-2024 [facility] Gastrointestinal Endoscopy Patient Name: Epi Landaverde Procedure Date: 01/27/2024 11:42 AM Date of : 1955 Admit Type: Outpatient Age: 68 Gender: Female Note Status: Finalized Procedure: Colonoscopy Indications: Screening for colorectal malignant neoplasm Providers: Ghulam Choe MD Patient Profile: This is a 68 year old female. Refer to note in patient chart for documentation of history and physical. Last Colonoscopy: December 2013. Referring Physician: Myaela Luna (Referring ) Medicines: Fentanyl 100 micrograms [...] was t (more content not included)... PROVATION [facility] Radiology Study observation (narrative) [facility] HISTORY PHYSICALon HISTORY PHYSICAL HNO ID: [id number] Author: GHULAM CHOE MD Service: General Surgery Author Type: Physician Type: H&P Filed: 01/27/2024 11:50 Note Text: HISTORY AND PHYSICAL Epi Landaverde : 1955 REFERRING PHYSICIAN: No referring provider defined for this encounter. CHIEF COMPLAINT: Patient presents with: Consult HPI: Epi is a 68 year old female referred for endoscopy. Epi notes due for screening colonoscopy. Epi denies abdominal pain.. Epi denies diarrhea. Epi denies constipation. Epi denies a change in bowel habits. Epi denies melena. Epi denies bright red blood per rectum. Epi denies hemorrhoids. Epi denies heartburn. Epi denies dysphagia. Epi denies a history of ulcers/ peptic ulcer disease. Denies family history of colon issues. Epi has undergone prior endoscopy. Last colonoscopy 12/[address] Shields at [facility]. Sedation received: Midazolam 7 mg IV, [...] Artery Disease Mother 35 35 at first [place] Ischemic Heart Disease Mother Stroke Mother Coronary [...] distress. T (more content not included)... Normal [facility] NURSING PROGon 01-27-2024 NURSING PROG HNO ID: [id number] Author: SAKINA LOPES RN Service: ? Author Type: Registered Nurse Type: Nursing Progress Note Filed: 01/27/2024 12:53 Note Text: Patient arrived laying on left side. Patient does not appear to be in any pain at this time. Abdomen appears to be nondistended and soft to palpation. Patient encouraged to belch and pass gas as needed. Normal [facility] CNOVon 01-20-2024 CNOV Office Visit (INTMWS ) EPI LANDAVERDE ([id number]) 1955 F Date Time Provider Department 01/20/24 2:40 PM ERIBERTO TOVAR INTMWS During your visit today, we recorded the following information about you: Pulse Respiration Blood pressure Weight 76/minute 16/minute 129/73 76.7 kg Eriberto Tovar MD 01/20/2024 4:33 PM Signed This note was created using [email or web address]. Subjective Epi Landaverde is a 68 year old female. Patient presents with: Follow Up SUBJECTIVE: Epi Landaverde is a 68 year old year [...] Conjunctivae normal. (more content not included)... Normal [facility] Wilbur 01-13-2024 CNPN Telephone (INTMWS) EPI LANDAVERDE ([id number]) 1955 F Date Time Provider Department 01/13/24 ERIBERTO TOVAR INTMWS During your visit today, we recorded the following information about you: Yvonne Garrido 01/13/2024 1:00 PM Signed Nasrin is calling Eriberto Tovar MD today with [...] calling: self Call patient at: on cell [phone] (home) [phone] (cell) Was an appointment scheduled: No Closing statement: Results or non-symptom based questions: Thank you for calling [facility], your call will be returned within the next business day. Ronny Caldwell RN 01/19/2024 11:52 AM Signed Pt checking on reply to below message. Reports she has to stop diclofenac this Sat, for blepharoplasty eye surgery, scheduled 02-01-24. Will also be having colonscopy done next week, and has to be off diclofenac for that procedure as well. Last appt w/pcp was 8-21-24. Asking if she needs to be seen [...] Date Reviewed: 12/15/2023 Reviewed by: Mayela Luna APRN.GERIATRIC CASE MANAGER - Fully Assessed Reason for Visit: medication [...] ANEMIA NOS [D64.9] 06/01/2008 DISC DEGENERATION NOS [[id number]] 06/04/2008 Unspecified sleep apnea [G47.30] 07/31/2008 02/25/2016 Periodic limb movement disorder [G47.61] 09/12 (more content not included)... Normal [facility] CBC panel Auto (Bld)on 12-26 Erythrocyte distribution width (RBC) [Ratio] 13.9 % Normal 11.5-15.0 [facility] Comment on above: Order Comment: Speci men Type: BLOOD SPECIMENOrdering Facility: [facility] Address: [facility] [place] [address] Performed By: #### 5 8410-2 ####[facility] NICOTROYLIA [id number] [place] [address] [place] Hematocrit (Bld) [Volume fraction] 35.9 % Low 36.0-46.0 [facility] Comment on above: Order Comment: Speci men Type: BLOOD SPECIMENOrdering Facility: [facility] Address: [address] [place] [address] Performed By: #### 5 8410-2 ####[facility]UTEMARTHALIA [id number] [place] [address] [place] Hemoglobin (Bld) [Mass/Vol] 11.1 g/dL Low 11.5-15.5 [facility] Comment on above: Order Comment: Speci men Type: BLOOD SPECIMENOrdering Facility: [facility] Address: [address] [place] [address] Performed By: #### 5 8410-2 ####[facility] INSTITUTEJETA [id number] [place] [address] [place] MCH (RBC) [Entitic mass] 23.7 pg Low 26.0-34.0 [facility] Comment on above: Order Comment: Speci men Type: BLOOD SPECIMENOrdering Facility: [facility] Address: [address] [place] [address] Performed By: #### 5 8410-2 ####[facility] INSTITUTEJETA [id number] [place] [address] [place] MCHC (RBC) [Mass/Vol] 30.9 g/dL Normal 30.5-36.0 [facility] Comment on above: Order Comment: Speci men Type: BLOOD SPECIMENOrdering Facility: [facility] Address: [address] [place] [address] Performed By: #### 5 8410-2 ####[facility] INSTITUTENCLIA [id number] [place] [address] [place] MCV (RBC) [Entitic vol] 76.5 fL Low 80.0-100.0 [facility] Comment on above: Order Comment: Speci men Type: BLOOD SPECIMENOrdering Facility: [facility] Address: [address] [place] [address] Performed By: #### 5 8410-2 ####[facility] NICOANNVILLENCGABBY [id number] [place] [address] [place] Nucleated RBC (Bld) [#/Vol] 10*3/uL Normal <0.01 [facility] Comment on above: Order Comment: Speci men Type: BLOOD SPECIMENOrdering Facility: [facility] Address: [address] [place] [address] Performed By: #### 5 8410-2 ####[facility] INSTITUTENCLINDAA [id number] [place] [address] [place] Platelet mean volume (Bld) [Entitic vol] 8.4 fL Low 9.0-12.7 [facility] Comment on above: Order Comment: Speci men Type: BLOOD SPECIMENOrdering Facility: [facility] Address: [address] [place] [address] Performed By: #### 5 8410-2 ####[facility] INSTITUTENCLIA [id number] [place] [address] [place] Platelets (Bld) [#/Vol] 318 10*3/uL Normal 150-400 [facility] Comment on above: Order Comment: Speci men Type: BLOOD SPECIMENOrdering Facility: [facility] Address: [address] [place] [address] Performed By: #### 5 8410-2 ####[facility] INSTITUTENCLIA [id number] [place] [address] [place] RBC (Bld) [#/Vol] 4.69 10*6/uL Normal 3.90-5.20 [facility] Comment on above: Order Comment: Speci men Type: BLOOD SPECIMENOrdering Facility: [facility] Address: [address] [place] [address] Performed By: #### 5 8410-2 ####[facility] DORALWNCLIA [id number] [place] [address] [place] WBC (Bld) [#/Vol] 7.41 10*3/uL Normal 3.70-11.00 [facility] Comment on above: Order Comment: Speci men Type: BLOOD SPECIMENOrdering Facility: [facility] Address: [address] [place] [address] Performed By: #### 5 8410-2 ####[facility] DORALWNCLIA [id number] [place] [address] [place] Comprehensive metabolic 2000 panelon 12-27-2023 Albumin [Mass/Vol] 4.3 g/dL Normal 3.9-4.9 [facility] Comment on above: Order Comment: Speci men Type: BLOOD SPECIMENOrdering Facility: [facility] Address: [address] [place] [address] Performed By: #### 2 4323-8 ####[facility] INSTITUTENCLIA [id number] [place] [address] [place] ALP [Catalytic activity/Vol] 85 U/L Normal 34-123 [facility] Comment on above: Order Comment: Speci men Type: BLOOD SPECIMENOrdering Facility: [facility] Address: [address] [place] [address] Performed By: #### 2 4323-8 ####[facility] INSTITUTENCLIA [id number] [place] [address] [place] ALT [Catalytic activity/Vol] 17 U/L Normal 7-38 [facility] Comment on above: Order Comment: Speci men Type: BLOOD SPECIMENOrdering Facility: [facility] Address: [address] [place] [address] Performed By: #### 2 4323-8 ####[facility] MILLTOWNCLIA [id number] [place] [address] [place] Anion gap [Moles/Vol] 10 mmol/L Normal 8-15 [facility] Comment on above: Order Comment: Speci men Type: BLOOD SPECIMENOrdering Facility: [facility] Address: [address] [place] [address] Performed By: #### 2 4323-8 ####[facility] MILLWNCLIA [id number] [place] [address] [place] AST [Catalytic activity/Vol] 16 U/L Normal 13-35 [facility] Comment on above: Order Comment: Speci men Type: BLOOD SPECIMENOrdering Facility: [facility] Address: [address] [place] [address] Performed By: #### 2 4323-8 ####MERCY HEALTHLIA [id number] [place] [address] [place] Bilirubin [Mass/Vol] 0.3 mg/dL Normal 0.2-1.3 [facility] Comment on above: Order Comment: Speci men Type: BLOOD SPECIMENOrdering Facility: [facility] Address: [address] [place] [address] Performed By: #### 2 4323-8 ####[facility] MILLTOWNCLIA [id number] [place] [address] [place] Calcium [Mass/Vol] 9.5 mg/dL Normal 8.5-10.2 [facility] Comment on above: Order Comment: Speci men Type: BLOOD SPECIMENOrdering Facility: [facility] Address: [address] [place] [address] Performed By: #### 2 4323-8 ####[facility] MILLWNCLIA [id number] [place] [address] [place] Chloride [Moles/Vol] 104 mmol/L Normal 98-107 [facility] Comment on above: Order Comment: Speci men Type: BLOOD SPECIMENOrdering Facility: [facility] Address: [address] [place] [address] Performed By: #### 2 4323-8 ####[facility] [id number] [place] [address] [place] CO2 [Moles/Vol] 24 mmol/L Normal 22-30 [facility] Comment on above: Order Comment: Speci men Type: BLOOD SPECIMENOrdering Facility: [facility] Address: [address] [place] [address] Performed By: #### 2 4323-8 ####[facility] [id number] [place] [address] [place] Creatinine [Mass/Vol] 0.87 mg/dL Normal 0.58-0.96 [facility] Comment on above: Order Comment: Speci men Type: BLOOD SPECIMENOrdering Facility: [facility] Address: [address] [place] [address] Performed By: #### 2 4323-8 ####[facility] [id number] [address] OF [facility] Creatinine and Glomerular filtration rate.predicted panel (S/P/Bld) 73 mL/min/1.73m??? Normal >=60 [facility] Comment on above: Order Comment: Speci men Type: BLOOD SPECIMENOrdering Facility: [facility] Address: [address] [place] [address] Result Comment: Lani mated Glomerular Filtration Rate [...] actual GFR. Performed By: #### 2 4323-8 ####[facility] DORALWNCLIA [id number] [place] [address] [place] Glucose [Mass/Vol] 94 mg/dL Normal 74-99 [facility] Comment on above: Order Comment: Speci men Type: BLOOD SPECIMENOrdering Facility: [facility] Address: [address] [place] [address] Result Comment: The [place] [employer] (ADA) provides guidance for cutoff [...] Standards of Medical Care in Diabetes 2016, [place] [employer]. Diabetes Care. 2016.39(Suppl 1). Performed By: #### 2 4323-8 ####[facility] INSTITUTENCLIA [id number] [place] [address] [place] Potassium [Moles/Vol] 3.9 mmol/L Normal 3.7-5.1 [facility] Comment on above: Order Comment: Speci men Type: BLOOD SPECIMENOrdering Facility: [facility] Address: [address] [place] [address] Performed By: #### 2 4323-8 ####[facility] INSTITUTENCLIA [id number] [place] [address] [place] Protein [Mass/Vol] 6.7 g/dL Normal 6.3-8.0 [facility] Comment on above: Order Comment: Speci men Type: BLOOD SPECIMENOrdering Facility: [facility] Address: [address] [place] [address] Performed By: #### 2 4323-8 ####[facility] [id number] [place] [address] [place] Sodium [Moles/Vol] 138 mmol/L Normal 136-144 [facility] Comment on above: Order Comment: Speci men Type: BLOOD SPECIMENOrdering Facility: [facility] Address: [address] [place] [address] Performed By: #### 2 4323-8 ####[facility] [id number] [place] [address] [place] Urea nitrogen [Mass/Vol] 15 mg/dL Normal 7-21 [facility] Comment on above: Order Comment: Speci men Type: BLOOD SPECIMENOrdering Facility: [facility] Address: [address] [place] [address] Performed By: #### 2 4323-8 ####[facility] [id number] [place] [address] [place] Lipid 1996 panelon 4 Cholesterol [Mass/Vol] 152 mg/dL Normal <200 [facility] Comment on above: Order Comment: Speci men Type: BLOOD SPECIMENOrdering Facility: [facility] Address: [address] [place] [address] Result Comment: <200 mg/dL, Desirable 200-239 mg/dL, Borderline high >239 mg/dL, High Performed By: #### 2 4331-1 ####[facility] LABCLIA [id number] [place] [address] [place] [facility] [id number] [place] [address] [place] Cholesterol in HDL [Mass/Vol] 43 mg/dL Normal >39 [facility] Comment on above: Order Comment: Speci men Type: BLOOD SPECIMENOrdering Facility: [facility] Address: [address] [place] [address] Result Comment: 40-5 9 mg/dL, Acceptable >59 mg/dL, High: Negative risk factor for coronary heart disease <40 mg/dL, Low: Positive risk factor for coronary heart disease Performed By: #### 2 4331-1 ####[facility] LABCLIA [id number] [address] [id number] [place] [address] [place] Cholesterol in LDL [Mass/Vol] 81 mg/dL Normal <100 [facility] Comment on above: Order Comment: Speci men Type: BLOOD SPECIMENOrdering Facility: [facility] Address: [address] [place] [address] Result Comment: <100 mg/dL, Optimal 100-129 mg/dL, Near optimal/above optimal 130-159 mg/dL, Borderline high 160-189 mg/dL, High >189 mg/dL, Very high Secondary prevention optimal LDL Cholesterol levels are recommended to be < 70 mg/dL Performed By: #### 2 4331-1 ####[facility] LABCLIA [id number] [address] [id number] [place] [address] [place] Cholesterol in LDL/Cholesterol in HDL [Mass ratio] 1.88 {ratio} Normal <2.54 [facility] Comment on above: Order Comment: Speci men Type: BLOOD SPECIMENOrdering Facility: [facility] Address: [address] [place] [address] Result Comment: Gus brito: 1. National Cholesterol Education Program ATP III Guideline At-A-Glance Quick Desk Reference: National Heart, Lung, and Blood Roxie. National Institutes of Health. 2001: NIH Publication No. 01-3305. 2. An International Atherosclerosis Society position paper: global recommendations for the management of dyslipidemia: executive summary, Atherosclerosis. 2014: 232(2):410-413. Performed By: #### 2 4331-1 ####[facility] LABCLIA [id number] [address] [id number] [place] [address] [place] Cholesterol in VLDL [Mass/Vol] 28 mg/dL Normal <30 [facility] Comment on above: Order Comment: Speci men Type: BLOOD SPECIMENOrdering Facility: [facility] Address: [address] [place] [address] Performed By: #### 2 4331-1 ####[facility] LABCLIA [id number] [address] [id number] [place] [address] [place] Cholesterol non HDL [Mass/Vol] 109 mg/dL Normal <130 [facility] Comment on above: Order Comment: Speci men Type: BLOOD SPECIMENOrdering Facility: [facility] Address: [address] [place] [address] Result Comment: <130 mg/dL, Optimal 130-159 mg/dL, Near optimal/above optimal 160-189 mg/dL, Borderline high 190-219 mg/dL, High >219 mg/dL, Very high Secondary prevention optimal non HDL Cholesterol levels are recommended to be <100 mg/dL Performed By: #### 2 4331-1 ####[facility] LABCLIA [id number] [address] [id number] [place] [address] [place] Cholesterol.total/C holesterol in HDL [Mass ratio] 3.53 {ratio} Normal <5.10 [facility] Comment on above: Order Comment: Speci men Type: BLOOD SPECIMENOrdering Facility: [facility] Address: [address] [place] [address] Performed By: #### 2 4331-1 ####[facility] LABCLIA [id number] [address] [id number] [place] [address] [place] FASTING TIME 13 hrs Normal [facility] Comment on above: Order Comment: Speci men Type: BLOOD SPECIMENOrdering Facility: [facility] Address: [address] [place] [address] Performed By: #### 2 4331-1 ####[facility] LABCLIA [id number] [id number] [place] [address] [place] Triglyceride [Mass/Vol] 141 mg/dL Normal <150 [facility] Comment on above: Order Comment: Speci men Type: BLOOD SPECIMENOrdering Facility: [facility] Address: [address] [place] [address] Result Comment: <150 mg/dL, Normal 150-199 mg/dL, Borderline high 200-499 mg/dL, High >499 mg/dL, Very high Performed By: #### 2 4331-1 ####[facility] LABCLIA [id number] [address] [id number] [address] [place] CNOVon 12-15-2023 CNOV Office Visit (GENSWS ) EPI [id number]) 1955 F Date Time Provider Department 12/15/23 3:00 PM MAYELA LUNA During your visit today, we recorded the following information about you: Temperature Pulse Blood pressure Weight 98 degrees 100/minute 120/82 78.6 kg Height 1.689 m Mayela Luna APRN.CNP 12/15/2023 4:05 PM Signed HISTORY AND PHYSICAL Epi Landaverde : 1955 REFERRING PHYSICIAN: No referring provider defined for this encounter. CHIEF COMPLAINT: Patient presents with: Consult HPI: Epi is a 68 year old female referred for endoscopy. Epi notes due for screening colonoscopy. Epi denies abdominal pain.. Epi denies diarrhea. Epi denies constipation. Epi denies a change in bowel habits. Epi denies melena. Epi denies bright red blood per rectum. Epi denies hemorrhoids. Epi denies heartburn. Epi denies dysphagia. Epi denies a history of ulcers/ peptic ulcer disease. Denies family history of colon issues. Epi has undergone prior endoscopy. Last colonoscopy 12/[address] Shields at [facility]. Sedation received: Midazolam 7 mg IV, [...] Artery Disease Mother 35 35 at first [place] Ischemic Heart Disease Mother Stroke Mother Coronary Artery Disease Brother 57 2 MIs Breast Cancer Maternal Grandmother Coronary Artery Disease Maternal Grandfather Ischemic Heart Disease Maternal Grandfather Stroke Maternal Grandfather Breast Cancer Paternal Grandmother Social History Tobacco Use Smoking status: Never Smokeless tobacco: Never Vaping Use Vaping status: Never Used Substance Use Topics Alcohol use: No (more content not included)... Normal [facility] CNOVon 11-24-2023 CNOV Office Visit (INTMWS ) EPI LANDAVERDE ([id number]) 1955 F Date Time Provider Department 11/24/23 4:20 PM ERIBERTO TOVAR INTMWS During your visit today, we recorded the following information about you: Temperature Pulse Respiration Blood pressure 98.3 degrees 86/minute 18/minute 114/62 Weight 79 kg Eriberto Tovar MD 11/24/2023 5:55 PM Signed This note was created using Jymobriter. Subjective Epi Landaverde is a 67 year old female. Patient presents with: Same Day Appointment: Discuss pain medication while off diclofenac for surgery SUBJECTIVE: Epi Landaverde is a 67 year old year [...] Exam M (more content not included)... [facility] [facility] Telephone (INTMWS) EPI LANDAVERDE ([id number]) 1955 F Date Time Provider Department 11/22/23 ERIBERTO TOVAR INTMWS During your visit today, we recorded the following information about you: Doreen Wren RN 11/22/2023 1:41 PM Signed Pt is scheduled to have eyelid surgery, (blepharoplasty), at [facility], WednesdayNovember 29. Pt is to discontinue any [...] constant ache. Pt states she uses [facility] in [place]. Please call and advise. Pt. Eriberto Tovar [...] 2009. Percocet 2010 from within [facility]. Doreen Wren RN 11/23/2023 8:26 AM Signed Pt called and is notified of providers message and instructions. Pt voices understanding and scheduled with Dr Tovar tomorrow. Doreen Wren RN Allergies As of Date: 11/22/2023 Noted Allergy Reaction SULFA (SULFONAMIDE ANTIBIOTICS) 12/05/2004 4 - Hives Date Reviewed: 09/03/2023 Reviewed by: Regina Khalil LPN - Fully Assessed Reason for Visit: Patient Update [5524] Medication Question [2518] Prescriptions as of 11/23/2023 - traMADol (ULTRAM) [...] ANEMIA NOS [D64.9] 06/01/2008 DISC DEGENERATION NOS [[id number]] 06/04/2008 Unspecified sleep apnea [G47.30] 07/31/2008 02/25/2016 [...] Bunion [M21.619] (more content not included)... Normal [facility] CT CALCIUM SCORING SELF Yeison n 07-29-2023 CT CALCIUM SCORING SELF PAY * * *Final Report* * * DATE OF EXAM: Jul 29 2023 3:49PM [facility] 5 - CT CALCIUM SCORING SELF PAY / [...] AORTIC DIMENSIONS: AORTIC ROOT: 3.1 cm measured [id number] mid ASCENDING THORACIC AORTA: 3 cm mid [...] TISSUES: degenerative changes of the thoracic spine. Head Silverman (topogram) images: No additional findings. IMPRESSION: - Total Coronary Calcium Score (CAC) = 621 Whiting Machine Operator: ELLA Transcribe Date/Time: Jul 29 2023 3:58P Dictated by : FERCHO FREED MD This examination was interpreted and the report reviewed and electronically signed by: FERCHO FREED MD on Jul 29 2023 4:03PM EST [id number] [facility] CT Heart and Coronary arteri es for calcium scoring WO contraston 07-29-2023 IMPRESSION: - Total Coronary Calcium Score (CAC) = 621 Whiting Machine Operator: ELLA Transcribe Date/Time: Jul 29 2023 3:58P Dictated by : FERCHO FREED MD This examination was interpreted and the report reviewed and electronically signed by: FERCHO FREED MD on Jul 29 2023 4:03PM [facility] * * *Final Report* * * DATE OF EXAM: Jul 29 2023 3:49PM [facility] 2105 - CT CALCIUM SCORING SELF PAY [...] AORTIC DIMENSIONS: AORTIC ROOT: 3.1 cm measured [id number] mid ASCENDING THORACIC AORTA: 3 cm mid [...] TISSUES: degenerative changes of the thoracic spine. Head Silverman (topogram) images: No additional findings. [facility] Provider, Precious Ramirez - 07/29/2023 * * *Final Report* * * DATE OF EXAM: Jul 29 2023 3:49PM [facility] 2105 - CT CALCIUM SCORING SELF PAY [...] AORTIC DIMENSIONS: AORTIC ROOT: 3.1 cm measured zzhsw-lk-[id number] mid ASCENDING THORACIC AORTA: 3 cm mid [...] TISSUES: degenerative changes of the thoracic spine. Head Silverman (topogram) images: No additional findings. IMPRESSION IMPRESSION: - Total Coronary Calcium Score (CAC) = 621 Whiting Machine Operator: ELLA Transcribe Date/Time: Jul 29 2023 3:58P Dictated by : FERCHO FREED MD This examination was interpreted and the report reviewed and electronically signed by: FERCHO FREED MD on Jul 29 2023 4:03PM EST [facility] Radiology Study observation (narrative) [facility] CT Heart and Coronary arteri es for calcium scoring WO contrastOrdered By: [facility] Provider on 07-29-2023 [facility] XR KNEES BILATERAL 4+ VIEWS (SPECIFY VIEWS [...] joint space narrowing with lateral patellar subluxation, jcjv-ck-nftl appearance, subchondral sclerosis and large marginal osteophytes. Multiple scattered intraarticular bodies throughout the knee joint. At least small joint effusion. Left knee: No acute osseous abnormality. Mild medial knee compartment joint space narrowing with mild osteophytic spurring. Mild lateral knee compartment joint space narrowing with moderate osteophytic spurring. Severe patellofemoral compartment joint space narrowing with lateral subluxation, clpe-kz-flzi appearance, subchondral sclerosis and large marginal osteophytes. Small suprapatellar joint effusion. IMPRESSION: No acute osseous abnormality. Bilateral tricompartmental osteoarthritis. Both patellofemoral compartments demonstrate lateral patellar subluxation with severe osteoarthritic changes. ST/trw Workstation ID: [id number] Dictated by: BOBBY GAY on WedJun 15, 2023 9:52:52 AM EDT Transcribed by: KELSIE DEJESUS on WedJun 15, 2023 10:03:43 AM EDT Finalized by: BOBBY GAY on WedJun 15, 2023 5:22:59 PM EDT Normal [facility] Ambulatory Comment on above: Order Comment: Injur y/Trauma or Illness?:Illness/Other How long have you had these symptoms (acute/chronic)?:Chronic Reason for exam?:chronic bilateral knee pain, no injury History of cancer?:. Surgeries, chemotherapy, or radiation?:. Type of Exam?:Initial Additional signs and symptoms?:none UA DIP, URINE (POC)on 2022 BILIRUBIN UA (POCT) Negative Negative [facility] CLARITY UA (POCT) [facility] COLOR UA (POCT) Yellow [facility] GLUCOSE UA (POCT) Negative Negative mg/dL [facility] Hemoglobin Ql (U) Trace-intact Abnormal Negative [facility] KETONE UA (POCT) Negative Negative mg/dL [facility] LEUKOCYTES UA (POCT) Small Abnormal Negative [facility] NITRITE UA (POCT) Negative Negative [facility] PH UA (POCT) 7.0 4.5 - 8.0 [facility] Protein Ql (U) Negative Negative mg/dL [facility] SPECIFIC GRAVITY UA (POCT) 1.010 1.005 - 1.030 [facility] UROBILINOGEN UA (POCT) 0.2 E.U./dL Normal E.U./dL [facility] UA DIP, URINE (POC)on 2022 BILIRUBIN UA (POCT) Negative Negative [facility] CLARITY UA (POCT) Clear [facility] COLOR UA (POCT) Yellow [facility] GLUCOSE UA (POCT) Negative Negative mg/dL [facility] HEMOGLOBIN/BLOOD UA (POCT) Small Abnormal Negative [facility] KETONE UA (POCT) Negative Negative mg/dL [facility] LEUK[facility] (POCT) Small Abnormal Negative [facility] NITRITE UA (POCT) Negative Negative [facility] PH UA (POCT) 7.0 4.5 - 8.0 [facility] Protein Ql (U) Negative Negative mg/dL [facility] SPECIFIC GRAVITY UA (POCT) 1.010 1.005 - 1.030 [facility] UROBILINOGEN UA (POCT) 0.2 E.U./dL Normal E.U./dL [facility] UA DIP, URINE (POC)on 2022 BILIRUBIN UA (POCT) Negative Negative [facility] CLARITY UA (POCT) Clear [facility] COLOR UA (POCT) Yellow [facility] GLUCOSE UA (POCT) Negative Negative mg/dL [facility] HEMOGLOBIN/BLOOD UA (POCT) Trace-lysed Abnormal Negative [facility] KETONE UA (POCT) Negative Negative mg/dL [facility] LEUKOCYTES UA (POCT) Trace Abnormal Negative [facility] NITRITE UA (POCT) Negative Negative [facility] PH UA (POCT) 8.5 Abnormal 4.5 - 8.0 [facility] Protein Ql (U) Negative Negative mg/dL [facility] SPECIFIC GRAVITY UA (POCT) 1.015 1.005 - 1.030 [facility] UROBILINOGEN UA (POCT) 0.2 E.U./dL Normal E.U./dL [facility] VALENTE SCREENING W TOMOon 06-25 [facility] STREP A MOLECULAR (POC)on Procedural Control Valid [facility] Strep A (POCT) Negative Negative [facility] STREP A MOLECULAR (POC)on Procedural Control Valid [facility] Strep A (POCT) Negative Negative [facility] XR CHEST 2V FRONTAL/LATon [facility] XR Chest PA and Lateralon IMPRESSION: No acute radiographic abnormality. Whiting Machine Operator: PSCB Transcribe Date/Time: Sep 03 2021 3:39P [...] spine IMPRESSION IMPRESSION: No acute radiographic abnormality. Whiting Machine Operator: ELLA Transcribe Date/Time: Sep 03 2021 3:39P Dictated by : JAYLON ROBLES MD This examination was interpreted and the report reviewed and electronically signed by: JAYLON ROBLES MD on Sep 03 2021 3:40PM EST [facility] Radiology Study observation (narrative) [facility] XR Chest PA and LateralOrder ed By: [facility] Provider on 09-03-2021 [facility] Vital Signs Date Time Vital Sign Value Performing Clinician Major baires 10-17-2024 14:040 Body mass index (BMI) [Ratio] 27.17 kg/m2 Sanjay Yates CHEERLEADING COACH.MEMORY CARE DIRECTOR Work Phone: [facility] 10-17-2024 14:040 Body weight 78.7 kg Sanjay Yates CHEERLEADING COACH.MEMORY CARE DIRECTOR Work Phone: [facility] 10-17-2024 14:09-0400 Diastolic blood pressure 58 mm[Hg] Sanjay Yates CHEERLEADING COACH.MEMORY CARE DIRECTOR Work Phone: [facility] 10-17-2024 14:09-0400 Heart rate 77 /min Sanjay Yates CHEERLEADING COACH.MEMORY CARE DIRECTOR Work Phone: [facility] 10-17-2024 14:09-0400 Respiratory rate 16 /min Sanjay Yates CHEERLEADING COACH.MEMORY CARE DIRECTOR Work Phone: [facility] 10-17-2024 14:09-0400 SaO2% (BldA) [Mass fraction] 95 % Sanjay Yates CHEERLEADING COACH.MEMORY CARE DIRECTOR Work Phone: [facility] 10-17-2024 14:09-0400 Systolic blood pressure 102 mm[Hg] Sanjay Yates CHEERLEADING COACH.MEMORY CARE DIRECTOR Work Phone: [facility] 09-18-2024 13:23-0400 Body mass index (BMI) [Ratio] 27.07 kg/m2 Sanjay Yates CHEERLEADING COACH.MEMORY CARE DIRECTOR Work Phone: [facility] 09-18-2024 13:23-0400 Body weight 78.4 kg Sanjay Yates CHEERLEADING COACH.MEMORY CARE DIRECTOR Work Phone: [facility] 09-18-2024 13:23-0400 Diastolic blood pressure 67 mm[Hg] Sanjay Yates CHEERLEADING COACH.MEMORY CARE DIRECTOR Work Phone: [facility] 09-18-2024 13:23-0400 Heart rate 82 /min Sanjay Yates CHEERLEADING COACH.MEMORY CARE DIRECTOR Work Phone: [facility] 09-18-2024 13:23-0400 Respiratory rate 16 /min Sanjay Yates CHEERLEADING COACH.MEMORY CARE DIRECTOR Work Phone: [facility] 09-18-2024 13:23-0400 Systolic blood pressure 114 mm[Hg] Sanjay Yates CHEERLEADING COACH.MEMORY CARE DIRECTOR Work Phone: [facility] 08-31-2024 15:17-0400 Body mass index (BMI) [Ratio] 27.35 kg/m2 Sanjay Yates CHEERLEADING COACH.MEMORY CARE DIRECTOR Work Phone: [facility] 08-31-2024 15:17-0400 Body temperature 99 [degF] Sanjay Yates CHEERLEADING COACH.MEMORY CARE DIRECTOR Work Phone: [facility] 08-31-2024 15:17-0400 Body weight 79.2 kg Sanjay Yates CHEERLEADING COACH.MEMORY CARE DIRECTOR Work Phone: [facility] 08-31-2024 15:17-0400 Diastolic blood pressure 71 mm[Hg] Sanjay Yates CHEERLEADING COACH.MEMORY CARE DIRECTOR Work Phone: [facility] 08-31-2024 15:17-0400 Heart rate 91 /min Sanjay Yates CHEERLEADING COACH.MEMORY CARE DIRECTOR Work Phone: [facility] 08-31-2024 15:17-0400 Respiratory rate 16 /min Sanjay Yates CHEERLEADING COACH.MEMORY CARE DIRECTOR Work Phone: [facility] 08-31-2024 15:17-0400 Systolic blood pressure 113 mm[Hg] Sanjay Yates CHEERLEADING COACH.MEMORY CARE DIRECTOR Work Phone: [facility] 07-25-2024 18:45-0400 Body height 170.2 cm Eriberto Tovar MD Work Phone: [facility] 07-25-2024 18:45-0400 Body mass index (BMI) [Ratio] 26.86 kg/m2 Eriberto Tovar MD Work Phone: [facility] 07-25-2024 18:45-0400 Body temperature 99.9 [degF] Eriberto Tovar MD Work Phone: [facility] 07-25-2024 18:45-0400 Body weight 77.8 kg Eriberto Tovar MD Work Phone: [facility] 07-25-2024 18:45-0400 Diastolic blood pressure 67 mm[Hg] Eriberto Tovar MD Work Phone: [facility] 07-25-2024 18:45-0400 Heart rate 90 /min Eriberto Tovar MD Work Phone: [facility] 07-25-2024 18:45-0400 Respiratory rate 16 /min Eriberto Tovar MD Work Phone: [facility] 07-25-2024 18:45-0400 SaO2% (BldA) [Mass fraction] 96 % Eriberto Tovar MD Work Phone: [facility] 07-25-2024 18:45-0400 Systolic blood pressure 112 mm[Hg] Eriberto Tovar MD Work Phone: [facility] 07-20-2024 14:22-0400 Body mass index (BMI) [Ratio] 26.64 kg/m2 Sanjay Yates CHEERLEADING COACH.MEMORY CARE DIRECTOR Work Phone: [facility] 07-20-2024 14:22-0400 Body temperature 99.7 [degF] Sanjay Yates CHEERLEADING COACH.MEMORY CARE DIRECTOR Work Phone: [facility] 07-20-2024 14:22-0400 Body weight 76 kg Sanjay Yates CHEERLEADING COACH.MEMORY CARE DIRECTOR Work Phone: [facility] 07-20-2024 14:22-0400 Diastolic blood pressure 65 mm[Hg] Sanjay Yates CHEERLEADING COACH.MEMORY CARE DIRECTOR Work Phone: [facility] 07-20-2024 14:22-0400 Heart rate 83 /min Sanjay Yates CHEERLEADING COACH.MEMORY CARE DIRECTOR Work Phone: [facility] 07-20-2024 14:22-0400 Respiratory rate 16 /min Sanjay Yates CHEERLEADING COACH.MEMORY CARE DIRECTOR Work Phone: [facility] 07-20-2024 14:22-0400 Systolic blood pressure 104 mm[Hg] Sanjay Yates CHEERLEADING COACH.MEMORY CARE DIRECTOR Work Phone: [facility] 07-10-2024 11:59-0400 Body mass index (BMI) [Ratio] 26.95 kg/m2 Sanjay Yates CHEERLEADING COACH.MEMORY CARE DIRECTOR Work Phone: [facility] 07-10-2024 11:59-0400 Body temperature 97.5 [degF] Sanjay Yates CHEERLEADING COACH.MEMORY CARE DIRECTOR Work Phone: [facility] 07-10-2024 11:59-0400 Body weight 76.9 kg Sanjay Yates CHEERLEADING COACH.MEMORY CARE DIRECTOR Work Phone: [facility] 07-10-2024 11:59-0400 Diastolic blood pressure 72 mm[Hg] Sanjay Yates CHEERLEADING COACH.MEMORY CARE DIRECTOR Work Phone: [facility] 07-10-2024 11:59-0400 Heart rate 82 /min Sanjay Yates CHEERLEADING COACH.MEMORY CARE DIRECTOR Work Phone: [facility] 07-10-2024 11:59-0400 SaO2% (BldA) [Mass fraction] 98 % Sanjay Yates CHEERLEADING COACH.MEMORY CARE DIRECTOR Work Phone: [facility] 07-10-2024 11:59-0400 Systolic blood pressure 121 mm[Hg] Sanjay Yates CHEERLEADING COACH.MEMORY CARE DIRECTOR Work Phone: [facility] 07-04-2024 14:23-0400 Body mass index (BMI) [Ratio] 27.55 kg/m2 Sanjay Yates CHEERLEADING COACH.MEMORY CARE DIRECTOR Work Phone: [facility] 07-04-2024 14:23-0400 Body weight 78.6 kg Sanjay Yates CHEERLEADING COACH.MEMORY CARE DIRECTOR Work Phone: [facility] 07-04-2024 14:23-0400 Diastolic blood pressure 64 mm[Hg] Sanjay Yates CHEERLEADING COACH.MEMORY CARE DIRECTOR Work Phone: [facility] 07-04-2024 14:23-0400 Heart rate 85 /min Sanjay Yates CHEERLEADING COACH.MEMORY CARE DIRECTOR Work Phone: [facility] 07-04-2024 14:23-0400 Respiratory rate 16 /min Sanjay Yates CHEERLEADING COACH.MEMORY CARE DIRECTOR Work Phone: [facility] 07-04-2024 14:23-0400 SaO2% (BldA) [Mass fraction] 96 % Sanjay Yates CHEERLEADING COACH.MEMORY CARE DIRECTOR Work Phone: [facility] 07-04-2024 14:23-0400 Systolic blood pressure 112 mm[Hg] Sanjay Yates CHEERLEADING COACH.MEMORY CARE DIRECTOR Work Phone: [facility] 07-01-2024 13:31-0400 Body mass index (BMI) [Ratio] 27.37 kg/m2 Isidoro Wilson CHEERLEADING COACH.GERIATRIC CASE MANAGER Work Phone: [facility] 07-01-2024 13:31-0400 Body temperature 98.2 [degF] Isidoro Wilson CHEERLEADING COACH.GERIATRIC CASE MANAGER Work Phone: [facility] 07-01-2024 13:31-0400 Body weight 78.1 kg Isidoro Wilson CHEERLEADING COACH.GERIATRIC CASE MANAGER Work Phone: [facility] 07-01-2024 13:31-0400 Diastolic blood pressure 80 mm[Hg] Isidoro Wilson CHEERLEADING COACH.GERIATRIC CASE MANAGER Work Phone: [facility] 07-01-2024 13:31-0400 Heart rate 82 /min Isidoro Wilson APRN.GERIATRIC CASE MANAGER Work Phone: [facility] 07-01-2024 13:31-0400 Respiratory rate 16 /min Isidoro Wilson CHEERLEADING COACH.GERIATRIC CASE MANAGER Work Phone: [facility] 07-01-2024 13:31-0400 SaO2% (BldA) [Mass fraction] 96 % Isidoro Wilson CHEERLEADING COACH.GERIATRIC CASE MANAGER Work Phone: [facility] 07-01-2024 13:31-0400 Systolic blood pressure 122 mm[Hg] Isidoro Wilson CHEERLEADING COACH.GERIATRIC CASE MANAGER Work Phone: [facility] 06-22-2024 14:08-0400 Body mass index (BMI) [Ratio] 27.35 kg/m2 Gabriela Britt APRN.GERIATRIC CASE MANAGER Work Phone: [facility] 06-22-2024 14:08-0400 Body weight 78.02 kg Gabriela Britt APRN.GERIATRIC CASE MANAGER Work Phone: [facility] 06-22-2024 14:08-0400 Diastolic blood pressure 78 mm[Hg] Gabriela Britt APRN.GERIATRIC CASE MANAGER Work Phone: [facility] 06-22-2024 14:08-0400 Systolic blood pressure 126 mm[Hg] Gabriela Britt APRN.CNP Work Phone: [facility] 06-19-2024 14:30-0400 Body height 168.9 cm Eriberto Tovar MD Work Phone: [facility] 06-19-2024 14:30-0400 Body mass index (BMI) [Ratio] 27.37 kg/m2 Eriberto Tovar MD Work Phone: [facility] 06-19-2024 14:30-0400 Body weight 78.1 kg Eriberto Tovar MD Work Phone: [facility] 06-19-2024 14:30-0400 Diastolic blood pressure 65 mm[Hg] Eriberto Tovar MD Work Phone: [facility] 06-19-2024 14:30-0400 Heart rate 74 /min Eriberto Tovar MD Work Phone: [facility] 06-19-2024 14:30-0400 Systolic blood pressure 111 mm[Hg] Eriberto Tovar MD Work Phone: [facility] 03-14-2024 15:39-0500 Body mass index (BMI) [Ratio] 26.53 kg/m2 Eriberto Tovar MD Work Phone: [facility] 03-14-2024 15:39-0500 Body temperature 98.01 [degF] Eriberto Tovar MD Work Phone: [facility] 03-14-2024 15:39-0500 Body weight 75.7 kg Eriberto Tovar MD Work Phone: [facility] 03-14-2024 15:39-0500 Diastolic blood pressure 68 mm[Hg] Eriberto Tovar MD Work Phone: [facility] 03-14-2024 15:39-0500 Heart rate 81 /min Eriberto Tovar MD Work Phone: [facility] 03-14-2024 15:39-0500 Respiratory rate 16 /min Eriberto Tovar MD Work Phone: [facility] 03-14-2024 15:39-0500 SaO2% (BldA) [Mass fraction] 97 % Eriberto Tovar MD Work Phone: [facility] 03-14-2024 15:39-0500 Systolic blood pressure 118 mm[Hg] Eriberto Tovar MD Work Phone: [facility] 02-28-2024 15:45-0500 Body mass index (BMI) [Ratio] 26.22 kg/m2 Richy Jaime CHEERLEADING COACH.GERIATRIC CASE MANAGER Work Phone: [facility] 02-28-2024 15:45-0500 Body weight 74.8 kg Richy Jaime CHEERLEADING COACH.GERIATRIC CASE MANAGER Work Phone: [facility] 02-28-2024 15:45-0500 Diastolic blood pressure 60 mm[Hg] Richy Jaime CHEERLEADING COACH.GERIATRIC CASE MANAGER Work Phone: [facility] 02-28-2024 15:45-0500 Heart rate 94 /min Richy Jaime CHEERLEADING COACH.GERIATRIC CASE MANAGER Work Phone: [facility] 02-28-2024 15:45-0500 SaO2% (BldA) [Mass fraction] 98 % Richy Jaime CHEERLEADING COACH.GERIATRIC CASE MANAGER Work Phone: [facility] 02-28-2024 15:45-0500 Systolic blood pressure 108 mm[Hg] Richy Jaime CHEERLEADING COACH.GERIATRIC CASE MANAGER Work Phone: [facility] 02-28-2024 13:49-0500 Body mass index (BMI) [Ratio] 26.36 kg/m2 Casandra Plotts CHEERLEADING COACH.CNM Work Phone: [facility] 02-28-2024 13:49-0500 Body weight 75.21 kg Casandra Plotts CHEERLEADING COACH.CNM Work Phone: [facility] 02-28-2024 13:49-0500 Diastolic blood pressure 62 mm[Hg] Casandra Plotts CHEERLEADING COACH.CNM Work Phone: [facility] 02-28-2024 13:49-0500 Systolic blood pressure 102 mm[Hg] Casandra Plotts CHEERLEADING COACH.CNM Work Phone: [facility] 01-27-2024 12:54-0400 Diastolic blood pressure 61 mm[Hg] Ghulam Choe MD Work Phone: [facility] 01-27-2024 12:54-0400 Heart rate 70 /min Ghulam Choe MD Work Phone: [facility] 01-27-2024 12:54-0400 Respiratory rate 16 /min Ghulam Choe MD Work Phone: [facility] 01-27-2024 12:54-0400 SaO2% (BldA) [Mass fraction] 96 % Ghulam Choe MD Work Phone: [facility] 01-27-2024 12:54-0400 Systolic blood pressure 117 mm[Hg] Ghulam Choe MD Work Phone: [facility] 01-27-2024 11:47-0400 Body mass index (BMI) [Ratio] 27.55 kg/m2 Ghulam Cheo MD Work Phone: [facility] 01-27-2024 11:47-0400 Body temperature 97.5 [degF] Ghulam Choe MD Work Phone: [facility] 01-27-2024 11:47-0400 Body weight 78.6 kg Ghulam Choe MD Work Phone: [facility] 01-20-2024 15:14-0400 Body mass index (BMI) [Ratio] 26.88 kg/m2 Eriberto Tovar MD Work Phone: [facility] 01-20-2024 15:14-0400 Body weight 76.7 kg Eriberto Tovar MD Work Phone: [facility] 01-20-2024 15:14-0400 Diastolic blood pressure 73 mm[Hg] Eriberto Tovar MD Work Phone: [facility] 01-20-2024 15:14-0400 Heart rate 76 /min Eriberto Tovar MD Work Phone: [facility] 01-20-2024 15:14-0400 Respiratory rate 16 /min Eriberto Tovar MD Work Phone: [facility] 01-20-2024 15:14-0400 Systolic blood pressure 129 mm[Hg] Eriberto Tovar MD Work Phone: [facility] 12-15-2023 14:57-0400 Body height 168.9 cm Mayela Juan Manuel CHEERLEADING COACH.GERIATRIC CASE MANAGER Work Phone: [facility] 12-15-2023 14:57-0400 Body mass index (BMI) [Ratio] 27.54 kg/m2 Mayela Juan Manuel CHEERLEADING COACH.GERIATRIC CASE MANAGER Work Phone: [facility] 12-15-2023 14:57-0400 Body temperature 98.01 [degF] Mayela Juan Manuel CHEERLEADING COACH.GERIATRIC CASE MANAGER Work Phone: [facility] 12-15-2023 14:57-0400 Body weight 78.56 kg Mayela Juan Manuel CHEERLEADING COACH.GERIATRIC CASE MANAGER Work Phone: [facility] 12-15-2023 14:57-0400 Diastolic blood pressure 82 mm[Hg] Mayela Juan Manuel CHEERLEADING COACH.GERIATRIC CASE MANAGER Work Phone: [facility] 12-15-2023 14:57-0400 Heart rate 100 /min Mayela Juan Manuel CHEERLEADING COACH.GERIATRIC CASE MANAGER Work Phone: [facility] 12-15-2023 14:57-0400 SaO2% (BldA) [Mass fraction] 97 % Mayela Juan Manuel CHEERLEADING COACH.GERIATRIC CASE MANAGER Work Phone: [facility] 12-15-2023 14:57-0400 Systolic blood pressure 120 mm[Hg] Mayela Juan Manuel CHEERLEADING COACH.GERIATRIC CASE MANAGER Work Phone: [facility] 11-24-2023 17:35-0400 Body mass index (BMI) [Ratio] 27.5 kg/m2 Eriberto Tovar MD Work Phone: [facility] 11-24-2023 17:35-0400 Body temperature 98.29 [degF] Eriberto Tovar MD Work Phone: [facility] 11-24-2023 17:35-0400 Body weight 79 kg Eriberto Tovar MD Work Phone: [facility] 11-24-2023 17:35-0400 Diastolic blood pressure 62 mm[Hg] Eriberto Tovar MD Work Phone: [facility] 11-24-2023 17:35-0400 Heart rate 86 /min Eriberto Tovar MD Work Phone: [facility] 11-24-2023 17:35-0400 Respiratory rate 18 /min Eriberto Tovar MD Work Phone: [facility] 11-24-2023 17:35-0400 SaO2% (BldA) [Mass fraction] 97 % Eriberto Tovar MD Work Phone: [facility] 11-24-2023 17:35-0400 Systolic blood pressure 114 mm[Hg] Eriberto Tovar MD Work Phone: [facility] 09-03-2023 15:43-0400 Diastolic blood pressure 70 mm[Hg] Eriberto Tovar MD Work Phone: [facility] 09-03-2023 15:43-0400 Systolic blood pressure 120 mm[Hg] Eriberto Tovar MD Work Phone: [facility] 09-03-2023 15:04-0400 Body height 169.5 cm Eriberto Tovar MD Work Phone: [facility] 09-03-2023 15:04-0400 Body mass index (BMI) [Ratio] 27.47 kg/m2 Eriberto Tovar MD Work Phone: [facility] 09-03-2023 15:04-0400 Body temperature 98.1 [degF] Eriberto Tovar MD Work Phone: [facility] 09-03-2023 15:04-0400 Body weight 78.93 kg Eriberto Tovar MD Work Phone: [facility] 05-31-2024 15:04-0400 Heart rate 88 /min Eriberto Tovar MD Work Phone: [facility] 09-03-2023 15:04-0400 Respiratory rate 18 /min Eriberto Tovar MD Work Phone: [facility] 09-03-2023 15:04-0400 SaO2% (BldA) [Mass fraction] 97 % Eriberto Tovar MD Work Phone: [facility] 06-14-2023 15:08-0400 Body height 170.2 cm Lilly Rodas GERIATRIC CASE MANAGER Work Phone: [facility] 06-14-2023 15:08-0400 Body mass index (BMI) [Ratio] 26.94 kg/m2 Lilly Rodas GERIATRIC CASE MANAGER Work Phone: [facility] 06-14-2023 15:08-0400 Body weight 78.02 kg Lilly Rodas GERIATRIC CASE MANAGER Work Phone: [facility] 12-10-2022 15:12-0400 Body temperature 98.2 [degF] Sonido Frankie CHEERLEADING COACH.GERIATRIC CASE MANAGER Work Phone: [facility] 12-10-2022 15:12-0400 Body weight 83.1 kg Sonido Frankie CHEERLEADING COACH.GERIATRIC CASE MANAGER Work Phone: [facility] 12-10-2022 15:12-0400 Diastolic blood pressure 79 mm[Hg] Sonido Frankie CHEERLEADING COACH.GERIATRIC CASE MANAGER Work Phone: [facility] 12-10-2022 15:12-0400 Heart rate 84 /min Sonido Frankie CHEERLEADING COACH.GERIATRIC CASE MANAGER Work Phone: [facility] 12-10-2022 15:12-0400 Respiratory rate 18 /min Sonido Frankie CHEERLEADING COACH.GERIATRIC CASE MANAGER Work Phone: [facility] 12-10-2022 15:12-0400 SaO2% (BldA) [Mass fraction] 97 % Snoido Frankie CHEERLEADING COACH.GERIATRIC CASE MANAGER Work Phone: [facility] 12-10-2022 15:12-0400 Systolic blood pressure 137 mm[Hg] Sonido Frankie CHEERLEADING COACH.GERIATRIC CASE MANAGER Work Phone: [facility] 08-03-2022 13:37-0400 Body temperature 98.49 [degF] Martha Praisler-Wood CHEERLEADING COACH.GERIATRIC CASE MANAGER Work Phone: [facility] 08-03-2022 13:37-0400 Body weight 83.92 kg Martha Praisler-Wood CHEERLEADING COACH.GERIATRIC CASE MANAGER Work Phone: [facility] 08-03-2022 13:37-0400 Diastolic blood pressure 70 mm[Hg] Martha Praisler-Wood CHEERLEADING COACH.GERIATRIC CASE MANAGER Work Phone: [facility] 08-03-2022 13:37-0400 Heart rate 80 /min Martha Praisler-Wood CHEERLEADING COACH.GERIATRIC CASE MANAGER Work Phone: [facility] 08-03-2022 13:37-0400 Respiratory rate 17 /min Martha Praisler-Wood CHEERLEADING COACH.GERIATRIC CASE MANAGER Work Phone: [facility] 08-03-2022 13:37-0400 SaO2% (BldA) [Mass fraction] 97 % Martha Praisler-Wood CHEERLEADING COACH.GERIATRIC CASE MANAGER Work Phone: [facility] 08-03-2022 13:37-0400 Systolic blood pressure 122 mm[Hg] Martha Praisler-Wood CHEERLEADING COACH.GERIATRIC CASE MANAGER Work Phone: [facility] 07-23-2022 15:32-0400 Body temperature 98.01 [degF] Kailey Perez CHEERLEADING COACH.GERIATRIC CASE MANAGER Work Phone: [facility] 07-23-2022 15:32-0400 Body weight 81.28 kg Kailey Perez CHEERLEADING COACH.GERIATRIC CASE MANAGER Work Phone: [facility] 07-23-2022 15:32-0400 Diastolic blood pressure 82 mm[Hg] Kailey Perez CHEERLEADING COACH.GERIATRIC CASE MANAGER Work Phone: [facility] 07-23-2022 15:32-0400 Heart rate 81 /min Kailey Perez CHEERLEADING COACH.GERIATRIC CASE MANAGER Work Phone: [facility] 07-23-2022 15:32-0400 Respiratory rate 16 /min Kailey Perez APRN.GERIATRIC CASE MANAGER Work Phone: [facility] 07-23-2022 15:32-0400 SaO2% (BldA) [Mass fraction] 99 % Kailey Perez APRN.GERIATRIC CASE MANAGER Work Phone: [facility] 07-23-2022 15:32-0400 Systolic blood pressure 138 mm[Hg] Kailey Perez APRN.GERIATRIC CASE MANAGER Work Phone: [facility] 05-08-2022 19:10-0500 Body temperature 99.19 [degF] Eriberto Tovar MD Work Phone: [facility] 05-08-2022 19:10-0500 Body weight 80.74 kg Eriberto Tovar MD Work Phone: [facility] 05-08-2022 19:10-0500 Diastolic blood pressure 85 mm[Hg] Eriberto Tovar MD Work Phone: [facility] 05-08-2022 19:10-0500 Heart rate 93 /min Eriberto Tvoar MD Work Phone: [facility] 05-08-2022 19:10-0500 Respiratory rate 18 /min Eriberto Tovar MD Work Phone: [facility] 05-08-2022 19:10-0500 Systolic blood pressure 149 mm[Hg] Eriberto Tovar MD Work Phone: [facility] 04-21-2022 17:03-0500 Body temperature 97.81 [degF] Asiya Denbow PA-C Work Phone: [facility] 04-21-2022 17:03-0500 Body weight 80.47 kg Asiya Denbow PA-C Work Phone: [facility] 04-21-2022 17:03-0500 Diastolic blood pressure 84 mm[Hg] Asiya Denbow PA-C Work Phone: [facility] 04-21-2022 17:03-0500 Heart rate 81 /min Asiya Denbow PA-C Work Phone: [facility] 04-21-2022 17:03-0500 Respiratory rate 16 /min Asiyaherman Fisherbow PA-C Work Phone: [facility] 04-21-2022 17:03-0500 SaO2% (BldA) [Mass fraction] 98 % Asiyaherman Fisherbow PA-C Work Phone: [facility] 04-21-2022 17:03-0500 Systolic blood pressure 144 mm[Hg] Asiyaherman Fisherbow PA-C Work Phone: [facility] 04-12-2022 15:22-0500 Body temperature 98.29 [degF] Julieth Bergman [facility] 04-12-2022 15:22-0500 Body weight 78.93 kg Julieth Bergman [facility] 04-12-2022 15:22-0500 Diastolic blood pressure 80 mm[Hg] Julieth Bergman [facility] 04-12-2022 15:22-0500 Heart rate 76 /min Julieth Franklingg [facility] 04-12-2022 15:22-0500 Respiratory rate 16 /min Julieth Bergman [facility] 04-12-2022 15:22-0500 SaO2% (BldA) [Mass fraction] 97 % Julieth Bergman [facility] 04-12-2022 15:22-0500 Systolic blood pressure 134 mm[Hg] Julieth Bergman [facility] 01-25-2022 13:56-0400 Body temperature 98.2 [degF] Raina Tse CHEERLEADING COACH.GERIATRIC CASE MANAGER Work Phone: [facility] 01-25-2022 13:56-0400 Body weight 79.74 kg Raina Dedrick CHEERLEADING COACH.GERIATRIC CASE MANAGER Work Phone: [facility] 01-25-2022 13:56-0400 Diastolic blood pressure 80 mm[Hg] Arina Dedrick CHEERLEADING COACH.GERIATRIC CASE MANAGER Work Phone: [facility] 01-25-2022 13:56-0400 Heart rate 82 /min Raina Dedrick CHEERLEADING COACH.GERIATRIC CASE MANAGER Work Phone: [facility] 01-25-2022 13:56-0400 Respiratory rate 18 /min Raina Dedrick CHEERLEADING COACH.GERIATRIC CASE MANAGER Work Phone: [facility] 01-25-2022 13:56-0400 SaO2% (BldA) [Mass fraction] 97 % Raina Dedrick CHEERLEADING COACH.GERIATRIC CASE MANAGER Work Phone: [facility] 01-25-2022 13:56-0400 Systolic blood pressure 136 mm[Hg] Raina Dedrick CHEERLEADING COACH.GERIATRIC CASE MANAGER Work Phone: [facility] 01-01-2022 16:48-0400 Body temperature 97.59 [degF] Martha Praisler-Wood CHEERLEADING COACH.GERIATRIC CASE MANAGER Work Phone: [facility] 01-01-2022 16:48-0400 Body weight 78.74 kg Martha Praisler-Wood CHEERLEADING COACH.GERIATRIC CASE MANAGER Work Phone: [facility] 01-01-2022 16:48-0400 Diastolic blood pressure 82 mm[Hg] Martha Praisler-Wood CHEERLEADING COACH.GERIATRIC CASE MANAGER Work Phone: [facility] 01-01-2022 16:48-0400 Heart rate 78 /min Martha Praisler-Wood CHEERLEADING COACH.GERIATRIC CASE MANAGER Work Phone: [facility] 01-01-2022 16:48-0400 Respiratory rate 18 /min Martha Praisler-Wood CHEERLEADING COACH.GERIATRIC CASE MANAGER Work Phone: [facility] 01-01-2022 16:48-0400 SaO2% (BldA) [Mass fraction] 96 % Martha Praisler-Wood CHEERLEADING COACH.GERIATRIC CASE MANAGER Work Phone: [facility] 01-01-2022 16:48-0400 Systolic blood pressure 128 mm[Hg] Martha Praisler-Wood CHEERLEADING COACH.GERIATRIC CASE MANAGER Work Phone: [facility] 11-05-2021 12:32-0400 Body temperature 98.1 [degF] Abraham Gacria MD Work Phone: [facility] 11-05-2021 12:32-0400 Body weight 77.38 kg Abraham Garcia MD Work Phone: [facility] 11-05-2021 12:32-0400 Diastolic blood pressure 88 mm[Hg] Abraham Garcia MD Work Phone: [facility] 11-05-2021 12:32-0400 Heart rate 80 /min Abraham Garcia MD Work Phone: [facility] 11-05-2021 12:32-0400 Respiratory rate 21 /min Abraham Garcia MD Work Phone: [facility] 11-05-2021 12:32-0400 SaO2% (BldA) [Mass fraction] 96 % Abraham Garcia MD Work Phone: [facility] 11-05-2021 12:32-0400 Systolic blood pressure 154 mm[Hg] Abraham Garcia MD Work Phone: [facility] 10-30-2021 13:52-0400 Body height 170.2 cm Gabriela Britt APRN.GERIATRIC CASE MANAGER Work Phone: [facility] 10-30-2021 13:52-0400 Body weight 76.66 kg Gabriela Britt APRN.GERIATRIC CASE MANAGER Work Phone: [facility] 10-30-2021 13:52-0400 Diastolic blood pressure 76 mm[Hg] Gabriela Britt APRN.GERIATRIC CASE MANAGER Work Phone: [facility] 10-30-2021 13:52-0400 Systolic blood pressure 128 mm[Hg] Gabriela Britt APRN.GERIATRIC CASE MANAGER Work Phone: [facility] 09-03-2021 15:18-0400 Body temperature 98.29 [degF] Hayde Jay CHEERLEADING COACH.GERIATRIC CASE MANAGER Work Phone: [facility] 09-03-2021 15:18-0400 Body weight 79.38 kg Hayde Jay CHEERLEADING COACH.GERIATRIC CASE MANAGER Work Phone: [facility] 09-03-2021 15:18-0400 Diastolic blood pressure 82 mm[Hg] Hayde Jay CHEERLEADING COACH.GERIATRIC CASE MANAGER Work Phone: [facility] 09-03-2021 15:18-0400 Heart rate 90 /min Hayde Jay CHEERLEADING COACH.GERIATRIC CASE MANAGER Work Phone: [facility] 09-03-2021 15:18-0400 Respiratory rate 18 /min Hayde Jay CHEERLEADING COACH.GERIATRIC CASE MANAGER Work Phone: [facility] 09-03-2021 15:18-0400 SaO2% (BldA) [Mass fraction] 95 % Hayde Jay CHEERLEADING COACH.GERIATRIC CASE MANAGER Work Phone: [facility] 09-03-2021 15:18-0400 Systolic blood pressure 134 mm[Hg] Hayde Jay CHEERLEADING COACH.GERIATRIC CASE MANAGER Work Phone: [facility] 06-26-2021 16:04-0400 Body temperature 98.4 [degF] Martha Praisler-Wood CHEERLEADING COACH.GERIATRIC CASE MANAGER Work Phone: [facility] 06-26-2021 16:04-0400 Body weight 80.47 kg Martha Praisler-Wood CHEERLEADING COACH.GERIATRIC CASE MANAGER Work Phone: [facility] 06-26-2021 16:04-0400 Diastolic blood pressure 86 mm[Hg] Martha Praisler-Wood CHEERLEADING COACH.GERIATRIC CASE MANAGER Work Phone: [facility] 06-26-2021 16:04-0400 Heart rate 80 /min Martha Praisler-Wood CHEERLEADING COACH.GERIATRIC CASE MANAGER Work Phone: [facility] 06-26-2021 16:04-0400 Respiratory rate 18 /min Martha Praisler-Wood CHEERLEADING COACH.GERIATRIC CASE MANAGER Work Phone: [facility] 06-26-2021 16:04-0400 SaO2% (BldA) [Mass fraction] 97 % Martha Praisler-Wood CHEERLEADING COACH.GERIATRIC CASE MANAGER Work Phone: [facility] 06-26-2021 16:04-0400 Systolic blood pressure 156 mm[Hg] Martha Praisler-Wood CHEERLEADING COACH.GERIATRIC CASE MANAGER Work Phone: [facility] Encounters Encounter Date Encounter Type Care Provider Facility Start: 02-05-2025 End: 02-05-2025 ambulatory Eriberto D Talampas Facility:[facility] Start: 01-22-2025 End: 01-22-2025 ambulatory Eriberto D [facility] Facility:[facility] Start: 01-08-2025 End: 01-08-2025 ambulatory Eriberto D Talampas Facility:[facility] Start: 12-11-2024 ambulatory Eriberto D [facility] Facilit y:[facility] Start: 11-15-2024 Encounter for genera l adult medical examination without abnormal findings Carolee [facility] Start: 11-11-2024 End: 11-11-2024 Emergency department patient visit Carolee [facility] [employer] [facility] Facility:[facility] Start: 11-07-2024 End: 11-09-[address] JOSE L BARRIOS MD Facility:[facility] Start: 11-07-2024 End: 11-09-[address] JOSE L BARRIOS MD [facility] Start: 11-02-2024 End: 11-02-2024 ambulatory Eriberto D Talampas Facility:[facility] Start: 10-23-2024 End: 11-02-2024 Telephone encounter Sanjay Yates APRN.MEMORY CARE DIRECTOR Work Phone: [facility] Comment on above: Forms Start: 10-20-2024 End: 10-24-2024 ambulatory Sanjay Yates APRN.MEMORY CARE DIRECTOR Work Phone: [facility] [place] Comment on above: Question of results Start: 10-19-2024 End: 12-19-2024 Follow-up encounter Sanjay Yates APRN.MEMORY CARE DIRECTOR Work Phone: [facility] [place] Start: 10-17-2024 End: 10-17-2024 ambulatory ERIBERTO D TALAMPAS Facility:[facility] Start: 10-17-2024 Encounter for other preprocedural examination ERIBERTO GAINESAS [facility] Start: 10-17-2024 End: 10-17-2024 Office outpatient visit 25 minutes Sanjay Yates CHEERLEADING COACH.MEMORY CARE DIRECTOR Work Phone: [facility] [place] Comment on above: Preop exam for inter nal medicine (Primary Dx); Chronic pain of right knee; Obstructive sleep apnea; Primary hypertension; Primary osteoarthritis of right knee Start: 10-17-2024 End: 10-17-2024 Patient encounter status Sanjay Yates APRN.MEMORY CARE DIRECTOR Work Phone: [facility] Work Phone: Start: 10-17-2024 End: 10-17-2024 ambulatory ERIBERTO D TALAMPAS Facility:[facility] Start: 10-12-2024 End: 10-12-2024 [facility] Facility[facility] Start: 10-11-2024 End: 10-11-[address] JOSE L BARRIOS MD [facility] Start: 10-11-2024 End: 10-11-[address] JOSE L BARRIOS MD Facility:[facility] Start: 09-22-2024 End: 09-22-2024 ambulatory Eriberto D Talampas Facility:[facility] Start: 09-18-2024 End: 09-18-2024 Office outpatient visit 25 minutes Sanjay Yates CHEERLEADING COACH.MEMORY CARE DIRECTOR Work Phone: [facility] [place] Comment on above: Obstructive sleep ap fina (Primary Dx); Mixed hyperlipidemia; Encounter for immunization; Generalized anxiety disorder; Moderate recurrent major depression (HCC); Anemia, unspecified type; Vitamin D deficiency Start: 09-18-2024 End: 09-18-2024 ambulatory SANAJY YATES Facility:[facility] Start: 09-08-2024 End: 09-08-2024 ambulatory Eriberto D Talampas Facility:[facility] Start: 09-05-2024 Encounter for other preprocedural examination Jose L Thomas [facility] Start: 08-31-2024 End: 08-31-2024 Office outpatient visit 15 minutes Sanjay Richardsons CHEERLEADING COACH.MEMORY CARE DIRECTOR Work Phone: [facility] [place] Comment on above: Hemarthrosis of left knee (Primary Dx); Chronic pain of left knee; Effusion of left knee Start: 08-31-2024 End: 08-31-2024 ambulatory SANJAY YATES Facility:[facility] Start: 08-24-2024 End: 08-24-2024 ambulatory Eriberto Tovar Facility:[facility] Start: 08-23-2024 ambulatory Jose L Barrios Facility: [facility] Start: 08-23-2024 End: 08-24-2024 Evaluation and management of inpatient Sanjay Moe Facility:[facility] Start: 08-11-2024 End: 08-11-2024 ambulatory Justine Romano Facility:[facility] Start: 08-02-2024 ambulatory [facility] Start: 08-02-2024 End: 08-02-2024 ambulatory [facility] Facility:[facility] Start: 07-25-2024 End: 07-25-2024 Office outpatient visit 10 minutes Eriberto Toavr MD Work Phone: [facility] [place] Comment on above: Postviral fatigue sy ndrome (Primary Dx); Iron deficiency anemia, unspecified iron deficiency anemia type; Viral cephalgia; Fibromyalgia Start: 07-25-2024 End: 07-25-2024 ambulatory ERIBERTO TOVAR Facility:[facility] Start: 07-21-2024 End: 09-20-2024 Follow-up encounter Sanjay Yates APRN.MEMORY CARE DIRECTOR Work Phone: [facility] [place] Start: 07-20-2024 End: 07-20-2024 ambulatory ERIBERTO TOVAR Facility:[facility] Start: 07-20-2024 End: 07-20-2024 Office outpatient visit 25 minutes Sanjay Yates APRN.CNS Work Phone: [facility] [place] Comment on above: Flu-like symptoms (P rimary Dx); Acute upper respiratory infection, unspecified; Fever, unspecified fever cause; Family history of rheumatoid arthritis Start: 07-20-2024 End: 07-20-2024 ambulatory ERIBERTO TOVAR Facility:[facility] Start: 07-19-2024 End: 07-20-2024 ambulatory Sanjay Yates APRN.MEMORY CARE DIRECTOR Work Phone: [facility] [place] Comment on above: Retest-urinalysis Start: 07-19-2024 End: 07-19-2024 Subsequent hospital visit by physician Xr [facility] Work Phone: Radiology Comment on above: Flu-like symptoms [R 68.89] Start: 07-17-2024 End: 07-18-2024 ambulatory Sanjay Yates APRN.MEMORY CARE DIRECTOR Work Phone: [facility] [place] Comment on above: Need to know next st eps Start: 07-12-2024 Encounter for preprocedural cardiovascular examination [facility] Start: 07-12-2024 End: 07-12-2024 ambulatory [facility] Facility:[facility] Start: 07-11-2024 End: 07-11-2024 Follow-up encounter Sanjay Yates APRN.MEMORY CARE DIRECTOR Work Phone: Internal [facility] Start: 07-10-2024 End: 07-10-2024 ambulatory ERIBERTO TOVAR Facility:[facility] Start: 07-10-2024 End: 07-10-2024 Office outpatient visit 15 minutes Sanjay Yates APRN.MEMORY CARE DIRECTOR Work Phone: [facility] [place] Comment on above: Flu-like symptoms (P rimary Dx); Acute upper respiratory infection, unspecified; Primary hypertension Start: 07-07-2024 ambulatory [facility] Start: 07-07-2024 End: 07-07-2024 ambulatory Eriberto Tovar Facility:[facility] Start: 07-06-2024 End: 09-05-2024 Follow-up encounter Sanjay Yates APRN.MEMORY CARE DIRECTOR Work Phone: [facility] [place] Start: 07-05-2024 End: 07-05-2024 Telephone encounter Eriberto Tovar MD Work Phone: [facility] [place] Comment on above: [facility] Start: 07-04-2024 End: 07-04-2024 ambulatory Justine Romano Facility:[facility] Start: 07-04-2024 End: 07-04-2024 ambulatory ERIBERTO TOVAR Facility:[facility] Start: 07-04-2024 End: 07-04-2024 Office outpatient visit 25 minutes Sanjay Yates APRN.MEMORY CARE DIRECTOR Work Phone: [facility] [place] Comment on above: Preoperative clearan ce (Primary Dx); Primary osteoarthritis of right knee; Leukocytosis, unspecified type; Abnormal EKG; Iron deficiency anemia, unspecified iron deficiency anemia type Start: 07-04-2024 End: 07-04-2024 Preoperative state Sanjay Yates CHEERLEADING COACH.MEMORY CARE DIRECTOR Work Phone: [facility] Start: 07-04-2024 End: 07-04-2024 Telephone encounter Eriberto Tovar MD Work Phone: [facility] [place] Comment on above: [facility] Start: 07-03-2024 End: 07-03-2024 ambulatory [facility] Facility:[facility] Start: 07-01-2024 End: 07-01-2024 ambulatory [facility] Facility:[facility] Start: 07-01-2024 End: 07-01-2024 Office outpatient visit 15 minutes Isidoro Wilson CHEERLEADING COACH.GERIATRIC CASE MANAGER Work Phone: [facility] Comment on above: Sore throat (Primary Dx); Viral illness Start: 06-28-2024 End: 07-03-2024 Telephone encounter Eriberto Tovar MD Work Phone: [facility] [place] Comment on above: Pre-Surgical Clearan ce Form Start: 06-27-2024 End: 06-27-2024 ambulatory Nahum Peacock Facility:[facility] Start: 06-26-2024 End: 06-26-2024 ambulatory Jose L Barrios Facility:[facility] Start: 06-22-2024 End: 06-22-2024 ambulatory GABRIELA BRITT Facility:[facility] Start: 06-22-2024 End: 06-22-2024 Patient encounter procedure Gabriela Britt CHEERLEADING COACH.GERIATRIC CASE MANAGER Work Phone: OB/Gynecology Comment on above: Lichen sclerosus et atrophicus (Primary Dx); Chafing; Postmenopausal atrophic vaginitis Start: 06-21-2024 ambulatory Jose L Barrios Facility: [facility] Start: 06-20-2024 End: 06-20-2024 ambulatory Justine Romano Facility:[facility] Start: 06-19-2024 End: 06-19-2024 ambulatory ERIBERTO TOVAR Facility:[facility] Start: 06-19-2024 End: 06-19-2024 Patient encounter procedure Eriberto Tovar MD Work Phone: [facility] [place] Comment on above: Preoperative evaluat ion to rule out surgical contraindication (Primary Dx); Constipation, unspecified constipation type; Gas pain; Dental infection Start: 06-19-2024 End: 06-19-2024 Patient encounter status Eriberto Tovar MD Work Phone: [facility] Work Phone: Start: 06-05-2024 End: 06-06-2024 Refill Eriberto Tovar MD Work Phone: Internal Medicine [place] Comment on above: Refill Request Start: 05-27-2024 End: 06-14-2024 ambulatory Eriberto Tovar MD Work Phone: Internal Medicine [place] Comment on above: Test results Start: 05-22-2024 End: 05-22-2024 ambulatory Justine Romano Facility:[facility] Start: 05-09-2024 End: 05-10-2024 Refill Eriberto Tovar MD Work Phone: Internal Medicine [place] Comment on above: Refill Request Start: 05-05-2024 End: 05-05-2024 ambulatory Justine Romano Facility:[facility] Start: 05-05-2024 End: 05-05-2024 ambulatory ERIBERTO TOVAR Facility:[facility] Start: 05-05-2024 End: 05-05-2024 Subsequent hospital visit by physician Screen Mammo [facility] Mammogram Start: 05-02-2024 End: 05-02-2024 ambulatory ERIBERTO TOVAR Facility:[facility] Start: 04-14-2024 End: 04-14-2024 ambulatory Justine Romano Facility:[facility] Start: 04-06-2024 End: 04-07-2024 Refill Eriberto Tovar MD Work Phone: Internal Medicine [place] Comment on above: Refill Request Start: 03-23-2024 End: 03-23-2024 ambulatory Justine Romano Facility[facility] Start: 03-14-2024 End: 03-14-2024 Office outpatient visit 25 minutes Eriberto Tovar MD Work Phone: Internal Medicine [place] Comment on above: Heat intolerance (Pr imary Dx); Chronic fatigue; Elevated serum free T4 level; Hypermagnesemia; Postmenopausal; High serum triiodothyronine (T3); High serum vitamin B12; Vitamin D deficiency; Primary hypertension; Mixed hyperlipidemia Start: 03-14-2024 End: 03-14-2024 ambulatory ERIBERTO TOVAR Facility:[facility] Start: 03-10-2024 End: 03-10-2024 Telephone encounter Eriberto Tovar MD Work Phone: Internal Medicine [place] Comment on above: Patient Question Start: 03-01-2024 End: 03-08-2024 Telephone encounter Eriberto Tovar MD Work Phone: Internal Medicine [place] Comment on above: Results Start: 02-29-2024 End: 03-01-2024 ambulatory Richy Dominguez APRN.CNP Work Phone: Internal Medicine [place] Comment on above: Results Start: 02-29-2024 End: 03-01-2024 E-mail encounter from caregiver Richy Dominguez APRN.CNP Work Phone: Internal Medicine [place] Start: 02-28-2024 End: 02-28-2024 ambulatory ERIBERTO TOVAR Facility:[facility] Start: 02-28-2024 End: 02-28-2024 Patient encounter procedure Richy Dominguez APRN.GERIATRIC CASE MANAGER Work Phone: Internal Medicine [place] Comment on above: Heat intolerance (Pr imary Dx); Weight loss, unintentional; Encounter for therapeutic drug monitoring; Chronic fatigue; Microcytic anemia; Vitamin D deficiency; Encounter for screening for diabetes mellitus Start: 02-28-2024 End: 02-28-2024 ambulatory ERIBERTO Shweta KNOXAYAKA Facility:[facility] Start: 02-28-2024 End: 02-28-2024 Patient encounter procedure Casandra Blair CNM Work Phone: OB/Gynecology Comment on above: Chafing (Primary Dx) ; Lichen sclerosus et atrophicus Start: 02-24-2024 End: 02-24-2024 ambulatory ERIBERTO Rock ABILIOAYAKA Facility:[facility] Start: 02-23-2024 End: 02-23-2024 ambulatory Eriberto Tovar MD Work Phone: Internal Medicine [place] Comment on above: Unable to cool off Start: 01-27-2024 End: 01-27-2024 ambulatory ERIBERTO Shweta KNOXAYAKA Facility:[facility] Start: 01-27-2024 End: 01-27-2024 Subsequent hospital visit by physician Ghulam Choe MD Work Phone: Ambulatory Surgery Comment on above: Screen for colon can cer [Z12.11] Start: 01-20-2024 End: 01-20-2024 ambulatory ERIBERTO TOVAR Facility:[facility] Start: 01-20-2024 End: 01-20-2024 Office outpatient visit 15 minutes Eriberto Tovar MD Work Phone: Internal Medicine [place] Comment on above: Chronic bilateral lo w back pain without sciatica (Primary Dx); Microcytic anemia; Fibromyalgia; Chronic pain of both knees; Mixed hyperlipidemia Start: 01-13-2024 End: 01-19-2024 Telephone encounter Eriberto Tovar MD Work Phone: Internal Medicine [place] Comment on above: medication question Start: 01-07-2024 End: 01-07-2024 Refill Richy Dominguez APRN.GERIATRIC CASE MANAGER Work Phone: Internal Medicine [place] Comment on above: Refill Request Start: 12-27-2023 End: 12-27-2023 ambulatory ERIBERTO Shweta KNOXAYAKA Facility:[facility] Start: 12-15-2023 End: 12-15-2023 Patient encounter procedure Mayela Luna APRN.GERIATRIC CASE MANAGER Work Phone: General Surgery Comment on above: Screen for colon can cer (Primary Dx) Start: 12-15-2023 End: 12-18-2023 ambulatory Eriberto Tovar MD Work Phone: Internal Medicine [place] Comment on above: Colonoscopy Start: 11-24-2023 End: 11-24-2023 Office outpatient visit 15 minutes Eriberto Tovar MD Work Phone: Internal Medicine [place] Comment on above: Generalized osteoart hritis (Primary Dx); Chronic bilateral low back pain without sciatica; Fibromyalgia; Chronic pain of both knees Start: 11-24-2023 End: 11-24-2023 ambulatory ERIBERTO TOVAR Facility:[facility] Start: 11-22-2023 End: 11-23-2023 Telephone encounter Eriberto Tovar MD Work Phone: Internal Medicine [place] Comment on above: Patient Update; Medi cation Question Start: 11-20-2023 End: 11-22-2023 Admission to same day surgery center Eriberto Tovar MD Work Phone: Internal Medicine [place] Comment on above: Pre-surgery med vidya tion Start: 11-20-2023 End: 11-22-2023 ambulatory Eriberto Tovar MD Work Phone: Internal Medicine [place] Start: 10-12-2023 Telephone encounter Maile chase APRN.CNP Work Phone: Neurology Comment on above: PAP Therapy Follow U p Start: 09-03-2023 End: 09-03-2023 Patient encounter procedure Eriberto Tovar MD Work Phone: Internal Medicine [place] Comment on above: Preop examination (P rimary Dx); Shoulder strain, left, initial encounter; Encounter for immunization Start: 09-03-2023 End: 09-03-2023 Preprocedural examination done Eriberto Tovar MD Work Phone: [facility] Work Phone: Start: 09-01-2023 ambulatory Eriberto suggs MD Work Phone: Internal Medicine [place] Comment on above: 3 articles of paperw ork which need signatures Refill Request Start: 08-11-2023 Telephone encounter Eriberto gamez MD Work Phone: Internal Medicine [place] Comment on above: Results Start: 07-29-2023 ambulatory ERIBERTO Vizcarra y:[id number] Start: 07-29-2023 End: 07-29-2023 Subsequent hospital visit by physician [facility] [address] Scan Comment on above: Elevated LDL cholest irais level [E78.00] Start: 07-28-2023 ambulatory Eriberto suggs MD Work Phone: Internal Medicine [facility] [place] Start: 07-09-2023 End: 07-09-2023 Office outpatient visit 25 minutes Eriberto Tovar MD Work Phone: Internal Medicine [place] Comment on above: Elevated LDL cholest irais level (Primary Dx); Fibromyalgia; Family history of coronary artery disease in mother; Insomnia, unspecified type; SHANNON on CPAP; Mild episode of recurrent major depressive disorder (HCC); Encounter for screening for cardiovascular disorders Start: 06-14-2023 End: 06-18-2023 ambulatory ERIBERTOLara TOVAR [facility] Ambulatory Start: 06-14-2023 End: 06-14-2023 Office outpatient new 30 minutes Richy Dominguez CNP Work Phone: [facility] Comment on above: Primary osteoarthrit is of both knees (Primary Dx); Pain in both knees, unspecified chronicity Start: 06-03-2023 ambulatory Pcp (Historical[facility] Start: 06-03-2023 Telephone encounter Eriberto gamez MD Work Phone: Internal Medicine [place] Comment on above: faxed referral to caitlyn hernandez Start: 05-31-2023 Telephone encounter Eriberto gamez MD Work Phone: Internal Medicine [place] Comment on above: Consult Start: 12-11-2022 Telephone encounter Abraham Cuadra MD Work Phone: [facility] Comment on above: Results (Urine Cx mi xed.) Start: 12-10-2022 End: 12-10-2022 Patient encounter procedure Sonido David CHEERLEADING COACH.GERIATRIC CASE MANAGER Work Phone: [facility] Comment on above: Urgency of urination (Primary Dx) Start: 12-10-2022 Telephone encounter Eriberto gamez MD Work Phone: Internal Medicine [place] Comment on above: Patient Question Start: 11-11-2022 Telephone encounter Eriberto gamez MD Work Phone: Internal Medicine [place] Comment on above: Handicap placard Start: 11-04-2022 Refill Eriberto suggs MD Work Phone: Internal Medicine [place] Comment on above: Refill Request Start: 08-03-2022 End: 08-03-2022 Patient encounter procedure [place] Meier APRN.GERIATRIC CASE MANAGER Work Phone: [place] [facility] Comment on above: Urinary frequency (P rimary Dx) Start: 07-23-2022 End: 07-23-2022 Patient encounter procedure Kailey Perez APRN.GERIATRIC CASE MANAGER Work Phone: [place] [facility] Comment on above: Urinary frequency (P rimary Dx) Start: 06-25-2022 Documentation procedure Mammog mo Coordinator [facility] Start: 06-25-2022 Letter encounter Mammography Coordinator [facility] Department Start: 06-25-2022 End: 06-25-2022 Subsequent hospital visit by physician Screen Mammo [facility] Wstr Mammogram Comment on above: [...] 04-24-2022 Refill Eriberto suggs MD Work Phone: [facility] Comment on above: Refill Request (Plea se send today, patient is in need of this ) Start: 04-21-2022 End: 04-21-2022 Patient encounter procedure Asiya Boyle PA-C Work Phone: [facility] Comment on above: Sore throat (Primary Dx) Start: 04-13-2022 Telephone encounter Kailey Perez APRN.GERIATRIC CASE MANAGER Work Phone: [place] [facility] Comment on above: Results Start: 04-12-2022 End: 04-12-2022 Patient encounter procedure Moelaura Tonja SWARTZ [facility] [facility] Comment on above: Acute cough (Primary Dx); Acute frontal sinusitis, recurrence not specified Start: 02-11-2022 Refill Eriberto suggs MD Work Phone: Internal Medicine [place] Comment on above: Refill Request Start: 01-25-2022 End: 01-25-2022 Patient encounter procedure Raina Tse APRN.[facility] Work Phone: [place] [facility] Comment on above: URI, acute (Primary Dx) Start: 01-01-2022 End: 01-01-2022 Patient encounter procedure [place] Meier APRN.GERIATRIC CASE MANAGER Work Phone: [place] [facility] Comment on above: Sore throat (Primary Dx); Suspected COVID-19 virus infection; Impacted cerumen of right ear Start: 11-05-2021 Telephone encounter Eriberto gamez MD Work Phone: Internal Medicine [place] Comment on above: Patient Update Start: 11-05-2021 End: 11-05-2021 Patient encounter procedure Abraham Garcia MD Work Phone: [place] [facility] Comment on above: Sore throat (Primary Dx) Start: 10-30-2021 End: 10-30-2021 Patient encounter procedure Gabriela Britt APRN.GERIATRIC CASE MANAGER Work Phone: OB/Gynecology Comment on above: Encounter for gyneco logic examination for high-risk patient covered by Medicare (Primary Dx); Lichen sclerosus et atrophicus; Pap smear for cervical cancer screening; Encounter for screening mammogram for breast cancer; Dense breast tissue on mammogram Start: 09-03-2021 End: 09-03-2021 Subsequent hospital visit by physician Xr [facility] [place] Work Phone: Radiology Comment on above: COVID [U07.1] Start: 09-03-2021 End: 09-03-2021 Patient encounter procedure Hayde Jay CHEERLEADING COACH.GERIATRIC CASE MANAGER Work Phone: [place] [facility] Comment on above: COVID (Primary Dx); Cough Start: 09-03-2021 Telephone encounter Eriberto gamez MD Work Phone: [facility] Medicine [place] Comment on above: Patient Update Start: 08-27-2021 Telephone encounter Eriberto gamez MD Work Phone: Internal [facility] [place] Comment on above: COVID concerns Start: 08-12-2021 Refill Eriberto suggs MD Work Phone: Internal Medicine [place] Comment on above: Refill Request Start: 07-26-2021 Refill Eriberto suggs MD Work Phone: Internal Medicine [place] Comment on above: Refill Request Start: 06-26-2021 End: 06-26-2021 Patient encounter procedure [place] Meier CHEERLEADING COACH.GERIATRIC CASE MANAGER Work Phone: [facility] [facility] Comment on above: Acute non-recurrent [...] gram/gi emsa stain bct fungi/cell Sanjay Yates CHEERLEADING COACH.MEMORY CARE DIRECTOR Work Phone: Start: 07-20-2024 Urnls dip stick/tabl et rgnt auto w/o microscopy Sanjay Yates CHEERLEADING COACH.MEMORY CARE DIRECTOR Work Phone: Start: 07-19-2024 Radiologic exam ches t 2 views Sanjay Yates CHEERLEADING COACH.MEMORY CARE DIRECTOR Work Phone: Start: 07-04-2024 Ecg routine ecg w/le ast 12 lds i&r only Sanjay Yates CHEERLEADING COACH.MEMORY CARE DIRECTOR Work Phone: Start: 07-01-2024 STREP A MOLECULAR (POC) Abraham Garcia MD Work Phone: Start: 01-27-2024 Colonoscopy flx dx w /collj spec when pfrmd Mayela Luna CHEERLEADING COACH.GERIATRIC CASE MANAGER Work Phone: Start: 01-27-2024 Colonoscopy Ghulam diaz MD Work Phone: Start: 12-27-2023 Lipid 1996 panel - S kasia or Plasma Xr [place] Work Phone: Start: 07-29-2023 Unlisted computed tomography procedure Eriberto Tovar MD Work Phone: Start: 06-11-2023 Lipid 1996 panel - S kasia or Plasma Eriberto Tovar MD Work Phone: Start: 12-15-2022 Lipid 1996 panel - S kasia or Plasma Screen Wstr Start: 12-10-2022 Urnls dip stick/tabl et rgnt auto w/o microscopy [place] Me[place] CHEERLEADING COACH.GERIATRIC CASE MANAGER Work Phone: Start: 08-03-2022 Urnls dip stick/tabl et rgnt auto w/o microscopy [place] Meier CHEERLEADING COACH.GERIATRIC CASE MANAGER Work Phone: Start: 07-23-2022 Urnls dip stick/tabl et rgnt auto w/o microscopy [place] Meier CHEERLEADING COACH.GERIATRIC CASE MANAGER Work Phone: Start: 06-25-2022 VALENTE SCREENING W MUNA Britt CHEERLEADING COACH.GERIATRIC CASE MANAGER Work Phone: Start: 06-25-2022 Mammography Mammograph y Coordinator Start: 04-21-2022 STREP A MOLECULAR (POC) Raina Tse CHEERLEADING COACH.GERIATRIC CASE MANAGER Work Phone: Start: 01-01-2022 STREP A MOLECULAR (POC) [place] Me[place] CHEERLEADING COACH.GERIATRIC CASE MANAGER Work Phone: Start: 09-03-2021 Radiologic exam ches t 2 views Hayde Jay CHEERLEADING COACH.GERIATRIC CASE MANAGER Work Phone: Start: 04-02-2021 Mammography Marthajordana Kennedy CHEERLEADING COACH.GERIATRIC CASE MANAGER Work Phone: Start: 12-05-2013 Colonoscopy Marthaj[place]ana Kennedy CHEERLEADING COACH.GERIATRIC CASE MANAGER Work Phone: Arthrd crp/mtacrpl j t thmb [...] 01-26-2034 Screening for malignant neoplasm of colon [facility] Start: 11-25-2030 RSV Vaccine (1 - 1-dose 75+ series) RSV Vaccine (1 - 1-dose 75+ series) [facility] Start: 12-26-2028 Lipid panel Lipid Screening [facility] Start: 06-10-2028 Lipid panel Lipid Screening [facility] Start: 12-16-2027 Lipid 1996 panel - Serum or Plasma Lipid Screening [facility] Start: 12-16-2027 Lipid panel Lipid Screening [facility] Start: 10-18-2027 Diabetes Screening Diabetes Screening [facility] Start: 07-20-2027 Diabetes Screening Diabetes Screening [facility] Start: 02-27-2027 Diabetes Screening Diabetes Screening [facility] Start: 12-26-2026 Diabetes Screening Diabetes Screening [facility] Start: 10-16-2026 Tetanus vaccination Tetanus: Every 10yrs [facility] Start: 10-16-2026 Urine microalbumin profile [facility] Start: 12-15-2025 Diabetes Screening Diabetes Screening [facility] Start: 10-17-2025 Annual PCP Team Chronic Disease Visit Annual PCP Team Chronic Disease Visit [facility] Start: 08-31-2025 BP Controlled (<130/80) BP Controlled (<130/80) [facility] Start: 07-25-2025 Annual PCP Team Chronic Disease Visit Annual PCP Team Chronic Disease Visit [facility] Start: 07-25-2025 BP Controlled (<130/80) BP Controlled (<130/80) [facility] Start: 07-20-2025 BP Controlled (<130/80) BP Controlled (<130/80) [facility] Start: 07-10-2025 BP Controlled (<130/80) BP Controlled (<130/80) Eng [facility] Start: 07-04-2025 BP Controlled (<130/80) BP Controlled (<130/80) Eng [facility] Start: 06-22-2025 BP Controlled (<130/80) BP Controlled (<130/80) [facility] Start: 06-19-2025 Annual PCP Team Chronic Disease Visit Annual PCP Team Chronic Disease Visit [facility] Start: 06-19-2025 BP Controlled (<130/80) BP Controlled (<130/80) [facility] Start: 05-05-2025 Screening for malignant neoplasm of breast Mammogram Screening [facility] Start: 03-20-2025 End: 03-20-2025 Patient encounter procedure 03/20/2025 2:00 PM EST Office Visit Internal Medicine [place] [address] [place] [id number] Eriberto Tovar MD [address] [place] [address] 6 month follow up [facility] Medicine [place] Comment on above: 6 month follow up Start: 03-14-2025 Annual PCP Team Chronic Disease Visit Annual PCP Team Chronic Disease Visit [facility] Start: 03-14-2025 BP Controlled (<130/80) BP Controlled (<130/80) [facility] Start: 01-26-2025 Screening for malignant neoplasm of colon [facility] Start: 01-22-2025 LIPID SCREEN LIPID SCREEN [facility] Start: 01-09-2025 End: 01-09-2025 Patient encounter procedure 01/09/2025 3:40 PM EDT Office Visit Internal Medicine [place] [address] [place] [address] Eriberto Tovar MD [address] [place] [address] 6 Month follow up Internal Medicine [place] Comment on above: 6 Month follow up Start: 12-04-2024 Influenza vaccination [facility] Start: 10-17-2024 End: 01-16-2025 CBC W Auto Differential panel - Blood [facility] Comment on above: Expected: 10/17/2024, Expires: Start: 10-17-2024 End: 01-16-2025 Comprehensive metabolic 2000 panel - Serum or Plasma [facility] Work Phone: Comment on above: Expected: 10/17/2024, Expires: Start: 09-13-2024 End: 09-13-2024 Patient encounter procedure 09/13/2024 3:20 PM EDT Office Visit Internal Medicine [place] [address] [facility], [place] [address] Eriberto Tovar MD [address] [place] [address] 6 month follow up [facility] Medicine [place] Comment on above: 6 month follow up Start: 07-25-2024 End: 07-25-2024 Patient encounter procedure 07/25/2024 6:40 PM EDT Office Visit Internal Medicine [place] [address] [facility], [place] [id number] Eriberto Tovar MD [address] [place], [place] [id number] follow up Internal Medicine [place] Comment on above: follow up Start: 07-20-2024 End: 07-20-2024 Patient encounter procedure 07/20/2024 2:20 PM EDT Office Visit Internal Medicine [place] [address] [place] [address] Sanjay Yates APRN.MEMORY CARE DIRECTOR [address] [place] [address] Ongoing fever, fatigue, review labs [facility] Medicine [place] Comment on above: Ongoing fever, fatigue, review labs Start: 07-20-2024 End: 10-19-2024 EDDIE BY IFA SCREEN [facility] Work Phone: Comment on above: Expected: 07/20/2024, Expires: Start: 07-19-2024 End: 07-19-2024 Patient encounter procedure 07/19/2024 11:50 AM EDT Appointment Radiology [address] [place] [address] Radiology Start: 07-19-2024 End: 07-19-2024 ambulatory 07/19/2024 11:30 AM EDT Results Only [place] [facility] [address] [place] [address] [place] [address] [facility] Start: 07-18-2024 End: 10-17-2024 CBC W Auto Differential panel - Blood COMPLETE BLOOD COUNT AND DIFFERENTIAL Lab Routine Flu-like symptoms Acute upper respiratory infection, unspecified Fever, unspecified fever cause Expected: 07/18/2024, Expires: 10/17/2024 [facility] Comment on above: Expected: 07/18/2024, Expires: Start: 07-18-2024 End: 10-17-2024 Comprehensive metabolic 2000 panel - Serum or Plasma COMPREHENSIVE METABOLIC PANEL Lab Routine Flu-like symptoms Acute upper respiratory infection, unspecified Fever, unspecified fever cause Expected: 07/18/2024, Expires: 10/17/2024 [facility] Comment on above: Expected: 07/18/2024, Expires: Start: 07-18-2024 End: 10-17-2024 SUSANA JAY PANEL SUSANA JAY PANEL Lab Routine Flu-like symptoms Acute upper respiratory infection, unspecified Fever, unspecified fever cause Other fatigue Expected: 07/18/2024, Expires: 10/17/2024 [facility] Comment on above: Expected: 07/18/2024, Expires: Start: 07-18-2024 End: 10-17-2024 Urinalysis complete panel - Urine URINALYSIS (WITH MICROSCOPIC) WITH CULTURE IF INDICATED Lab Routine Flu-like symptoms Acute upper respiratory infection, unspecified Fever, unspecified fever cause Expected: 07/18/2024, Expires: 10/17/2024 [facility] Comment on above: Expected: 07/18/2024, Expires: Start: 07-04-2024 End: 07-04-2024 Patient encounter procedure 07/04/2024 2:20 PM EDT Office Visit Internal Medicine [place] [address] [place] [address] Sanjay Yates, CHEERLEADING COACH.MEMORY CARE DIRECTOR [address] [place] [address] Follow up to previous Pre-Op Clearance on 06/19/24: review of additional lab results, possible 2nd EKG, see 06/28/24 Phone Note. Internal Medicine [place] Comment on above: Follow up to previous Pre-Op Clearance o n 06/19/24: review of additional lab results, possible 2nd EKG, see 06/28/24 Phone Note. Start: 06-22-2024 End: 06-22-2024 Patient encounter procedure 06/22/2024 2:00 PM EDT Office Visit OB/Gynecology [address] [place] [address] Gabriela Britt, CHEERLEADING COACH.GERIATRIC CASE MANAGER [address] [place] [address] Lichen Sclerosus F/U OB/Gynecology Comment on above: Lichen Sclerosus F/U Start: 06-19-2024 End: 06-19-2024 Patient encounter procedure 06/19/2024 2:00 PM EDT Office Visit Internal Medicine [place] [address] [place] [address] Eriberto Tovar MD [address] [place] [address] Pre-op right TKA with Dr Barrios 07/16/24 [facility] [place] Comment on above: Pre-op right TKA with Dr Barrios 07/16/24 Start: 04-12-2024 End: 04-12-2024 Patient encounter procedure 04/12/2024 3:00 PM EST Office Visit Internal Medicine [place] [address] [facility] [place] [address] Eriberto Tovar MD [address] [facility] [place] [address] 6 Month follow up Internal Medicine [place] Comment on above: 6 Month follow up Start: 04-05-2024 Advance Directive Discussion Advance Directive Discussion [facility] Start: 04-05-2024 End: 07-05-2024 Cobalamin (Vitamin B12) [Mass/volume] in Serum or Plasma VITAMIN B12 Lab Routine Heat intolerance Chronic fatigue High serum vitamin B12 Expected: 04/05/2024 (Approximate), Expires: 07/05/2024 [facility] Comment on above: Expected: 04/05/2024 (Approximate), Expi res: 07/05/2024 Start: 04-05-2024 End: 07-05-2024 Magnesium [Mass/volume] in Serum or Plasma MAGNESIUM Lab Routine Heat intolerance Chronic fatigue Hypermagnesemia Expected: 04/05/2024 (Approximate), Expires: 07/05/2024 [facility] Comment on above: Expected: 04/05/2024 (Approximate), Expi res: 07/05/2024 Start: 04-05-2024 End: 07-05-2024 Thyrotropin [Units/volume] in Serum or Plasma THYROID STIMULATING HORMONE Lab Routine Heat intolerance Chronic fatigue Elevated serum free T4 level High serum triiodothyronine (T3) Expected: 04/05/2024 (Approximate), Expires: 07/05/2024 [facility] Work Phone: Comment on above: Expected: 04/05/2024 (Approximate), Expi res: 07/05/2024 Start: 04-05-2024 End: 07-05-2024 Thyroxine (T4) free [Mass/volume] in Serum or Plasma T4 FREE/FREE THYROXINE Lab Routine Heat intolerance Chronic fatigue Elevated serum free T4 level High serum triiodothyronine (T3) Expected: 04/05/2024 (Approximate), Expires: 07/05/2024 [facility] Comment on above: Expected: 04/05/2024 (Approximate), Expi res: 07/05/2024 Start: 04-05-2024 End: 07-05-2024 Triiodothyronine (T3) Free [Mass/volume] in Serum or Plasma T3, FREE Lab Routine Heat intolerance Chronic fatigue Elevated serum free T4 level High serum triiodothyronine (T3) Expected: 04/05/2024 (Approximate), Expires: 07/05/2024 [facility] Comment on above: Expected: 04/05/2024 (Approximate), Expi res: 07/05/2024 Start: 03-14-2024 End: 03-14-2024 Patient encounter procedure 03/14/2024 3:20 PM EST Office Visit Internal Medicine [place] [address] [place], [place] [id number] Eriberto Tovar MD [address] [place] [address] 6 month follow up Internal Medicine [place] Comment on above: 6 month follow up Start: 02-28-2024 End: 05-29-2024 25-hydroxyvitamin D3 [Mass/volume] in Serum or Plasma [facility] Comment on above: Expected: 02/28/2024, Expires: Start: 02-28-2024 End: 05-29-2024 Cobalamin (Vitamin B12) [Mass/volume] in Serum or Plasma [facility] Comment on above: Expected: 02/28/2024, Expires: Start: 02-28-2024 End: 05-29-2024 Comprehensive metabolic 2000 panel - Serum or Plasma [facility] Comment on above: Expected: 02/28/2024, Expires: Start: 02-28-2024 End: 05-29-2024 Ferritin [Mass/volume] in Serum or Plasma [facility] Comment on above: Expected: 02/28/2024, Expires: Start: 02-28-2024 End: 05-29-2024 Hemoglobin A1c in Blood [facility] Comment on above: Expected: 02/28/2024, Expires: Start: 02-28-2024 End: 05-29-2024 Iron and Iron binding capacity panel - Serum or Plasma [facility] Work Phone: Comment on above: Expected: 02/28/2024, Expires: Start: 02-28-2024 End: 05-29-2024 Magnesium [Mass/volume] in Serum or Plasma [facility] Comment on above: Expected: 02/28/2024, Expires: Start: 02-28-2024 End: 05-29-2024 Thyrotropin [Units/volume] in Serum or Plasma [facility] Comment on above: Expected: 02/28/2024, Expires: Start: 02-28-2024 End: 05-29-2024 Thyroxine (T4) free [Mass/volume] in Serum or Plasma [facility] Comment on above: Expected: 02/28/2024, Expires: Start: 02-28-2024 End: 05-29-2024 Triiodothyronine (T3) Free [Mass/volume] in Serum or Plasma [facility] Comment on above: Expected: 02/28/2024, Expires: Start: 02-28-2024 End: 02-28-2024 Patient encounter procedure 02/28/2024 1:45 PM EST Office Visit OB/Gynecology [address] [place] [id number] Casandra Blair APRN.[facility] [address] [place] [address] Lichen sclerosus f/u OB/Gynecology Comment on above: Lichen sclerosus f/u Start: 02-24-2024 End: 02-24-2024 ambulatory 02/24/2024 11:15 AM EST Results Only [facility] [address] [place] [address] [facility] Start: 01-27-2024 End: 01-27-2024 Patient encounter procedure 01/27/2024 2:15 PM EDT Appointment Ambulatory Surgery [address] [place] [address] Ghulam Choe MD [address] [place] [address] colon Ambulatory Surgery Comment on above: colon Start: 01-27-2024 End: 01-27-2024 Patient encounter procedure 01/27/2024 8:45 AM EDT Appointment Ambulatory Surgery [address] [place] [address] Ghulam Choe MD [address] [place] [address] colon Ambulatory Surgery Comment on above: colon Start: 01-20-2024 End: 01-20-2024 Patient encounter procedure 01/20/2024 2:40 PM EDT Office Visit Internal Medicine [place] [address] [place] [address] Eriberto Tovar MD [address] [facility] [place] [address] follow up Internal Medicine [place] Comment on above: follow up Start: 01-20-2024 End: 04-20-2024 CBC panel - Blood by Automated count COMPLETE BLOOD COUNT Lab Routine Microcytic anemia Expected: 01/20/2024 (Approximate), Expires: 04/20/2024 [facility] Work Phone: Comment on above: Expected: 01/20/2024 (Approximate), Expi res: 04/20/2024 Start: 12-23-2023 End: 12-23-2023 Patient encounter procedure 12/23/2023 11:00 AM EDT Appointment Ambulatory Surgery [address] [place] [address] Ghulam Choe MD [address] [place] [address] Ambulatory Surgery Start: 12-19-2023 Covid-19 Vaccine () Covid-19 Vaccine () [facility] Comment on above: Postponed from 12/04/2022 (Declined at t his time) Start: 12-06-2023 Colonoscopy COLONOSCOPY [facility] Start: 12-06-2023 COLORECTAL CANCER SCREENING COLORECTAL CANCER SCREENING [facility] Start: 12-06-2023 Screening for malignant neoplasm of colon [facility] Start: 12-05-2023 Covid-19 Vaccine () Covid-19 Vaccine () [facility] Start: 12-05-2023 Covid-19 Vaccine () Covid-19 Vaccine () [facility] Start: 12-05-2023 Influenza vaccination Influenza Vaccine (#1) [facility] Start: 11-24-2023 End: 11-24-2023 Patient encounter procedure 11/24/2023 4:20 PM EDT Office Visit Internal Medicine [place] [address] [place], [place] [address] Eriberto Tovar MD [address] [place] [address] Pain Medications while off of Diclofenac for surgery [facility] [place] Comment on above: Pain Medications while off of Diclofenac for surgery Start: 10-15-2023 End: 10-15-2023 Patient encounter procedure 10/15/2023 3:00 PM EDT Office Visit Neurology [address] [place], [place] [id number] Maile Laguerre APRN.GERIATRIC CASE MANAGER [address] [place] [address] SHANNON on CPAP [G47.33] Neurology Comment on above: SHANNON on CPAP [G47.33] Start: 10-11-2023 End: 01-10-2024 Comprehensive metabolic 2000 panel - Serum or Plasma COMPREHENSIVE METABOLIC PANEL Lab Routine Encounter for long-term current use of medication Elevated LDL cholesterol level Expected: 10/11/2023 (Approximate), Expires: 01/10/2024 [facility] Work Phone: Comment on above: Expected: 10/11/2023 (Approximate), Expi res: 01/10/2024 Start: 10-11-2023 End: 01-10-2024 Lipid 1996 panel - Serum or Plasma LIPID PANEL BASIC Lab Routine Encounter for long-term current use of medication Elevated LDL cholesterol level Expected: 10/11/2023 (Approximate), Expires: 01/10/2024 [facility] Comment on above: Expected: 10/11/2023 (Approximate), Expi res: 01/10/2024 Start: 09-03-2023 End: 09-03-2023 Patient encounter procedure 09/03/2023 2:20 PM EDT Office Visit Internal Medicine [place] [address] [place], [place] [id number] Eriberto Tovar MD [address] [place], [place] [id number] pre op Dr. Mcclain Internal Medicine [place] Comment on above: pre op Dr. Mcclain Start: 06-26-2023 Mammography [facility] Start: 06-26-2023 Screening for malignant neoplasm of breast Mammogram Screening [facility] Start: 05-08-2023 SHINGRIX VACCINE (2 of 3) SHINGRIX VACCINE (2 of 3) [facility] Comment on above: Postponed from 04/28/2016 (Declined at t his time) Start: 04-05-2023 Advance Directive Discussion Advance Directive Discussion [facility] Start: 01-22-2023 DIABETES SCREEN DIABETES SCREEN [facility] Start: 12-10-2022 End: 02-09-2023 CBC W Auto Differential panel - Blood CBC + DIFF Lab Routine Recurrent major depressive disorder, in partial remission (HCC) Generalized anxiety disorder Obstructive sleep apnea Chronic fatigue Expected: 12/10/2022, Expires: 02/09/2023 [facility] Work Phone: Comment on above: Expected: 12/10/2022, Expires: 3 Start: 12-10-2022 End: 02-09-2023 Comprehensive metabolic 2000 panel - Serum or Plasma COMP METABOLIC PANEL Lab Routine Recurrent major depressive disorder, in partial remission (HCC) Generalized anxiety disorder Obstructive sleep apnea Chronic fatigue Expected: 12/10/2022, Expires: 02/09/2023 [facility] Work Phone: Comment on above: Expected: 12/10/2022, Expires: 3 Start: 12-10-2022 End: 02-09-2023 Lipid 1996 panel - Serum or Plasma LIPID PANEL BASIC Lab Routine Recurrent major depressive disorder, in partial remission (HCC) Generalized anxiety disorder Obstructive sleep apnea Chronic fatigue Encounter for lipid screening for cardiovascular disease Expected: 12/10/2022, Expires: 02/09/2023 [facility] Work Phone: Comment on above: Expected: 12/10/2022, Expires: 3 Start: 12-10-2022 End: 02-09-2023 Thyrotropin [Units/volume] in Serum or Plasma TSH BLD Lab Routine Recurrent major depressive disorder, in partial remission (HCC) Generalized anxiety disorder Obstructive sleep apnea Chronic fatigue Expected: 12/10/2022, Expires: 02/09/2023 [facility] Work Phone: Comment on above: Expected: 12/10/2022, Expires: 3 Start: 12-04-2022 COVID-19 Vaccine ( season) COVID-19 Vaccine ( season) [facility] Start: 12-04-2022 Influenza vaccination INFLUENZA (#1) [facility] Start: 09-16-2022 COVID-19 VACCINE (6 - Pfizer series) COVID-19 VACCINE (6 - Pfizer series) [facility] Start: 06-05-2022 End: 08-05-2022 CBC panel - Blood by Automated count CBC Lab Routine Chronic fatigue Encounter for long-term current use of medication Expected: 06/05/2022 (Approximate), Expires: 08/05/2022 [facility] Work Phone: Comment on above: Expected: 06/05/2022 (Approximate), Expi res: 08/05/2022 Start: 06-05-2022 End: 08-05-2022 Comprehensive metabolic 2000 panel - Serum or Plasma COMP METABOLIC PANEL Lab Routine Chronic fatigue Encounter for long-term current use of medication Expected: 06/05/2022 (Approximate), Expires: 08/05/2022 [facility] Work Phone: Comment on above: Expected: 06/05/2022 (Approximate), Expi res: 08/05/2022 Start: 06-05-2022 End: 08-05-2022 Lipid 1996 panel - Serum or Plasma LIPID PANEL BASIC Lab Routine Encounter for long-term current use of medication Mixed hyperlipidemia Expected: 06/05/2022 (Approximate), Expires: 08/05/2022 [facility] Work Phone: Comment on above: Expected: 06/05/2022 (Approximate), Expi res: 08/05/2022 Start: 04-12-2022 End: 04-26-2022 Influenza virus A and B RNA and SARS-CoV-2 (COVID-19) N gene panel - Respiratory specimen by AG with probe detection [facility] Comment on above: Expected: 04/12/2022, Expires: 3 Start: 04-05-2022 ADVANCE DIRECTIVE DISCUSSION ADVANCE DIRECTIVE DISCUSSION [facility] Start: 04-02-2022 Mammography MAMMOGRAM [facility] Start: 04-02-2022 Screening for malignant neoplasm of breast Mammogram [facility] Start: 02-03-2022 PNEUMOCOCCAL: 65+ (2 - PCV) PNEUMOCOCCAL: 65+ (2 - PCV) [facility] Start: 02-03-2022 SHINGRIX VACCINE (2 of 3) SHINGRIX VACCINE (2 of 3) [facility] Comment on above: Postponed from 04/28/2016 (Declined at t his time) Start: 01-09-2022 COVID-19 VACCINE (5 - Booster for Pfizer series) COVID-19 VACCINE (5 - Booster for Pfizer series) [facility] Start: 12-04-2021 Influenza vaccination INFLUENZA (#1) [facility] Start: 11-05-2021 End: 11-19-2021 SARS-CoV-2 (COVID-19) RNA [Presence] in Respiratory specimen by AG with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 [phone] to be sure your drugs can be [...] a CHART COPY. Signatures Patient Education Materials [address] [place] [address] Post-op Instruction 11/2016 (24751) Medication Leaflets docusate and senna, oxycodone My discharge plan and instructions have been reviewed and explained to me and I,EPI LANDAVERDE understand my current condition and have read and understand these discharge instructions. I have received a written copy of the plan/instructions. If I have questions, I am aware that I should contact my doctor. Patient/Integrated Specialist Signature: Date/Time: Relationship to Patient: ____ Witness Name/Signature: Date/Time: [facility] 11-09-2024 Discharge summary Date of [...] was admitted to the second floor at [facility]. The patient's pain was managed with the [...] primary care provider. Patient will follow-up with [facility] per postop [...] as needed for pain. Refills: 0. Changed Milligram by mouth twice daily with meals [...] a day. clobetasol topical (clobetasol 0.05% topical cream)mon, wed, wednesday. diclofenac (diclofenac sodium 75 mg [...] When:11/20/2024 01:15 PM EDT Where:[facility] [address] [place] [address]- Additional Information: Follow-up as scheduled Follow Up with ERIBERTO TOVAR MD When:11/21/2024 10:00 AM EDT Where:[address] [facility] [address]- Additional Information: Follow-up as scheduled Will be [...] EVANGELISTA JONES PA-C on 11/09/2024 12:41 PM [facility] 11-09-2024 Note Date of Service [...] would like her medications E scribed to [facility] in [facility]. We had a lengthy discussion again [...] any worsening symptoms. I have reviewed the [place] Automated Rx Reporting System (OARRS) report for [...] EVANGELISTA JONES PA-C on 11/09/2024 12:31 PM [facility] 11-09-2024 Pastoral care Progress note Pastoral Care Note Entered On: 11/09/2024 9:56 EDT Performed On: 11/09/2024 9:53 EDT by Evangelista Redman Pastoral Care Spiritual Care Visit Initiated by : Consult/Referral Type of Pastoral Visit : Initial visit Spiritual Care Reason for Visit : General Pastoral Care Referral From : Patient Spiritual Assessment : Positive Image of God, Spiritually Strong, Good Lawanda Group Support Spiritual Care Emotional Assessment : [...] aware of her discomfort; pt acknowledges her lawanda resources and says Just say a prayer for me; prayer and presence with compassionate words given Pastoral Care Visit Length : 10 minute(s) Evangelista Redman - 11/09/2024 9:53 EDT Digitally Signed by Evangelista Redman on 11/09/2024 09:53 AM [facility] 11-09-2024 Note Date of Service [...] getting 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 When asked if she takes anything for [...] by ALY SPARKS on 11/09/2024 11:42 AM [facility] 11-08-2024 Note Date of Service [...] by ALY SPARKS on 11/08/2024 01:43 PM [facility] 11-08-2024 Note Date of Service [...] repeat labs tomorrow. I have reviewed the [place] Automated Rx Reporting System (OARRS) report for [...] EVANGELISTA JONES PA-C on 11/08/2024 08:21 AM [facility] 11-07-2024 Note Exam Date Time Procedure Performing Provider Status 11/07/24 10:12 AM XR Knee 1 or 2 Views Right KIMEBRLY CARD MD; Auth (Verified) [id number] ORIGINAL HISTORY: Arthroplasty COMPARISON: No FINDINGS: There [...] 10:22:36 AM Ordering Provider: JOSE L BARRIOS [facility]08-05-2025 Note* Exam Date Time Procedure Performing Provider Status 11/07/24 8:33 AM US Anesthesia Block Modifi ed [id number] ORIGINAL Images acquired, not reported on this accession number. [facility]08-05-2025 Anesthesiology Consult note Patient: EPI LANDAVERDE Age: 68 years Sex: Female : 1955 Associated Diagnoses: None Author: KARISSA EVANS APRN-SEGUNDO Preoperative Information Time of last food or [...] been selected or recorded. Procedure history: Bunionectomy ([id number]). Comments: 10/11/2024 14:14 Felisha Larsen RN bilateral Arthrodesis, carpometacarpal joint, thumb, with or without internal fixation; with autograft (includes obtaining graft) ([id number]). Comments: 10/11/2024 14:15 Felisha Larsen RN left Cervical spinal fusion ([id number]). Comments: 10/11/2024 14:14 Felisha Larsen RN C5-6 Excision of cataract ([id number]). Comments: 10/11/2024 14:14 Felisha Larsen RN bilateral Implantation of spinal cord stimulator generator and electrode ([id number]). Ovarian cystectomy (3222749074). Interphalangeal joint of ring finger ([id number]). Comments: 10/11/2024 14:16 EDT - Felisha Rivera RN right Social History: Social & Psychosocial Habits Alcohol 11/07/2024 Use: Never Substance Abuse 11/07/2024 Use: Never Tobacco 11/07/2024 Tobacco Use: Never (less than 100 in l Home/Environment 11/07/2024 Living situation: Home/Independent Domestic Concerns None Primary Records Management Analyst: Self Lives In Single level home Current Home Treatments CPAP Special Services and Community Resources None Spouse Name Ghulam Marital Status of Patient if Patient Independent [...] Signs (last 24 hrs) Last Charted Temp Lbeztgnx43.7 DegC (NOV 07 06:32) GXU973 mmHg (NOV 07 06:32) DBP63 mmHg (NOV 07 06:32) BMI27.27 (NOV 07 06:44) Measurements from flowsheet : Measurements 11/07/2024 6:44 EDT Height 170.2 cm Admission Weight 79 kg [place] Body Weight 61.62 kg Body Mass Index 27.27 kg/m2 11/07/2024 6:32 EDT Height 170.2 cm Height in inches 67 inch(es) Admission Weight 79 kg Weight Lbs 173.8 lb [place] Body Weight 61.62 kg Admission Body Mass [...] Surgeon SN - CAt - Role Performed Space Sciences Director 1 SN - CAt - Role Performed Space Sciences Director 2 SN - CAt - Role Performed CHICKEN SEXER SN - CAt - Role Performed Deliverer Food 1 SN - CAt - Role Performed Scrub 1 SN - CAt - Role Performed Physician Wet End Supervisor 11/07/2024 7:08 EDT citric acid-sodium citrate Not [...] Designated Person #1 We May Share PHI Ghulam Landaverde [phone] Designated Person #1 Relationship Spouse Designated Person #2 We May Share PHI Lilly Desai [phone] Designated Person #2 Relationship Daughter Privacy Restrictions Requested None Height 170.2 cm Admission Weight 79 kg [place] Body Weight 61.62 kg Body Mass Index 27.27 kg/m2 Status No, per patient Sensory Deficits None Diagnosed With Sleep Apnea Yes Advanced Directives Yes Advance Directive Type [place] Durable Power of Sales And Service Advisor for [place], [place] Declaration (Living Will) Advance Directive Location [...] after midnight, No makeup, No jewelry, Responsible Green Party, Aware of surgery location, Pre-op education done, 2 bottles CHG wash with instructions given, No ordered medications, Total Joint Replacement/Colorectal Book Given SN - Preprocedure Comments Spoke with patient, Verbalizes/Nonverbally indicates understanding Anesthesia Evaluation Date/Time 10/11/2024 14:05 Anesthesia Evaluation Performed By JOSEPH GALVAN CHEERLEADING COACH-CHICKEN SEXER Anesthesia Evaluation Result Approved Individuals Taught Patient, Spouse Learning Readiness Willing to learn Barriers to Learning None evident Teaching Method Explanation Preferred Spoken Language Divehi Preferred Written Language Divehi Pre Procedure/Surgery Education Appropriate expectations Procedure/Surgical Teaching [...] phone, CPAP, Shirt, Shoes, Shorts, Socks, Other: MOLD DESIGNER FOR SPINAL CORDSTIMULATOR NPO Status Maintained, More than 8 hours Allergy Band on and Verified Yes Patient ID Band on and Verified Yes Implants Verified Yes Pacemaker/AICD Verified Yes Site Verified by Patient/Family Yes Blood Consent Signed Yes Last Fluid Intake 11/06/2024 23:55 Last Food Intake 11/06/2024 23:55 Last Void 11/07/2024 6:25 Patient Cleared for Surgery By SANJAY YATES APRN-BALWINDER Cardiac Clearance For Surgery By NAHUM PEACOCK MD 11/07/2024 6:32 EDT Height 170.2 cm Height in inches 67 inch(es) Admission Weight 79 kg Weight Lbs 173.8 lb [place] Body Weight 61.62 kg Admission Body Mass [...] Urinary Elimination Voiding, no difficulties Skin Description [place], Dry Skin Temperature Warm Skin Integrity Intact [...] Upper/Half-Length side-rails up . Assessment and Plan [place] [employer] Anesthesiologists (ASA) physical status classification: Class II. Anesthetic Preoperative Plan Premedication: intravenous. Anesthetic technique: General. Induction: intravenously. Maintenance airway: Laryngeal mask airway. Regional: Adductor Canal Block. Postoperative pain management: Per surgeon. Risks discussed: nausea, vomiting, headache, sore throat, dental injury, hypotension, allergic reaction, serious complications. Informed consent: signed by patient. Digitally Signed by KARISSA EVANSCHICKEN SEXER on 11/07/2024 07:20 AM Digitally Signed by KARISSA EVANSCHICKEN SEXER on 11/07/2024 08:37 AM [facility]07-21-2025 Telephone encounter Note* Telephone Encounter - Fabi Garner LPN - 10/23/2024 3:53 PM EDT Zoey with [facility] calls to check on pre-op form for knee surgery. Pt had pre- op appt 10/17/24. Zoey is re-faxing the form. Zoey would like form and lab results faxed to: [phone]. Fabi Garner LPN [facility]07-21-2025 Miscellaneous Notes* Telephone Encounter - Fabi Garner LPN - 10/23/2024 3:53 PM EDT Zoey with [facility] calls to check on pre-op form for knee surgery. Pt had pre- op appt 10/17/24. Zoey is re-faxing the form. Zoey would like form and lab results faxed to: [phone]. Fabi Garner LPN [facility] Progress note* Result Encounter Note - Sanjay Yates APRN.CNS - 10/19/2024 2:04 PM EDT Labs are stable compared to previous, mild anemia, increased BUN and creatinine. [facility]07-17-2025 Miscellaneous Notes* Result Encounter Note - Sanjay Yates APRN.CNS - 10/19/2024 2:04 PM EDT Labs are stable compared to previous, mild anemia, increased BUN and creatinine. [facility] Instructions* Patient Instructions* Sanjay Yates APRN.CNS - 10/17/2024 2:39 PM EDT Low risk of complications. Let your surgeon know about lack of assistance at home p she notes the VA assistance she was planning for postoperatively has fallen through and currently does not have anyone to help. ost op Complete lab work today or tomorrow here or at [address], I will send to the surgeon's office. documented in [facility]Gu[facility]2025 NoteHNO ID: [id number] Author: SANJAY YATES APRN.CNS Service: ? Author Type: Nurse Specialist Type: Progress Notes Filed: 10/23/2024 09:00 Note Text: Subjective Patient ID: Nasrin is a 68 year old female who [...] Abs Lymph 1.00 - 4.00 k/uL 2.40 Catahoula% % 8.3 Abs Catahoula <0.87 k/uL 0.70 Eosin% % 0.8 Abs Eosin <0 (more content not included)...[facility]07-15-2025 History of Present illness Narrative* Sanjay YatesCARLOS.MEMORY CARE DIRECTOR - 10/17/2024 2:00 PM EDT Subjective Patient ID: Nasrin is a 68 year old female who [...] preoperative lab work to be completed at [facility] tomorrow. - Discussed postoperative care and the [...] are not covered by insurance and recommended [id number]-[id number] alternatives. 4. Obstructive sleep apnea (G47.33) - [...] Level: 4 - Moderate documented in this encounterGuernsey [facility]07-09-2025 Evaluation + Plan note Future Appointments Diagnostic Tests Pending * MRSA (PCR) 10/11/24 [facility] 06-16-2025 History of Present illness Narrative* Sanjay Yates, CHEERLEADING COACH.MEMORY CARE DIRECTOR - 09/18/2024 1:20 PM EDT Subjective Patient ID: Nasrin is a 68 year old female who [...] on current treatment, continue unchanged Sanjay Yates APRN.CNS Medical Decision Making: Problems: Moderate: 2+ stable chronic illnesses Risk: Moderate: Drug management Medical Decision Making Level: 4 - Moderate documented in this encounterGuernsey Memorial Hospital06-16-2025 NoteHNO ID: [id number] Author: YATES, SANJAY, CHEERLEADING COACH.MEMORY CARE DIRECTOR Service: ? Author Type: Nurse Specialist Type: Progress Notes Filed: 09/18/2024 14:06 Note Text: Subjective Patient ID: Nasrin is a 68 year old female who [...] on current treatment, continue unchanged Sanjay Yates APRN.CNS Medical Decision Making: Problems: Moderate: 2+ stable chronic illnesses Risk: Moderate: Drug management Medical Decision Making Level: 4 - [facility]erateFire[facility]05-29-[facility] Instructions* Patient Instructions* Sanjay Yates APRN.MEMORY CARE DIRECTOR - 08/31/2024 3:42 PM EDT - Ice your knee regularly, and wrap it with an SATNOS bandage or a compression sleeve if it [...] weight-loss medicationat this time. documented in this encounterGuernsey Memorial Hospital05-29-2025 NoteHNO ID: [id number] Author: SAJNAY YATES APRN.CNS Service: ? Author Type: Nurse Specialist Type: Progress Notes Filed: 08/31/2024 16:33 Note Text: Subjective Patient ID: Nasrin is a 68 year old female who presents for Hospital F/U. HPI Presents today for hospital follow-up visit. She was seen at [facility] August 23 through August 24, 2024. She [...] - Multiple tests performed, all negative. - Shipping/Receiving Manager consulted due to abnormal EKGs; noted a [...] orthopedic PA scheduled for tomorrow. Sanjay Yates APRN.BALWINDER Medical Decision Making: Problems: Moderate: 1+ chronic illnesses with change Data: Unique source(s) for external note(s) reviewed: 1 Unique test result(s) reviewed: 1 Medical Decision Making Level: 3 - [facility]05-29-2025 History of Present illness Narrative* Sanjay Yates APRN.CNS - 08/31/2024 3:32 PM EDT Subjective Patient ID: Nasrin is a 68 year old female who presents for Hospital F/U. HPI Presents today for hospital follow-up visit. She was seen at [facility] August 23 through August 24, 2024. She [...] - Multiple tests performed, all negative. - Shipping/Receiving Manager consulted due to abnormal EKGs; noted a [...] Level: 3 - Low documented in this encounterGuernsey Memorial Hospital05-23-2025 [facility] Records Department [address] [place] [address] Discharge Summary 08/25/24 0752 MR#: [id number] Acct: [id number] Name: EPI LANDAVERDE Rep #: [id number] : 1955 68 From: Sanjay Moe DO PCP: Dr. Eriberto Tovar MD Status:DIS IN [id number] Date of Admission: 08/23/24 Date of [...] was seen in the emergency room at [facility] with complaints of swelling and pain in [...] tenderness was noted. E (more content not included)...[facility]05-09-2025 Progress note* Result Encounter Note - Sanjay Yates APRN.CNS - 08/11/2024 10:02 AM EDT no fungus at 21 dys [facility]05-09-2025 Miscellaneous Notes* Result Encounter Note - Sanjay Yates APRN.CNS - 08/11/2024 10:02 AM EDT no fungus at 21 dys * Result Encounter Note - Sanjay Yates APRN.CNS - 07/28/2024 7:36 AM EDT negative * Result Encounter Note - Sanjay Yates [...] mixed kp, no PMN documented in this encounterGuernsey Memorial Hospital04-25-2025 Progress note* Result Encounter Note - Sanjay Yates APRN.CNS - 07/28/2024 7:36 AM EDT negative [facility]04-22-2025 Instructions* Patient Instructions* Eriberto Tovar MD - [...] please contact our office. documented in this encounterGuernsey Memorial Hospital04-22-2025 NoteHNO ID: [id number] Author: ERIBERTO TOVAR MD Service: ? Author Type: Physician Type: Progress Notes Filed: 08/08/2024 01:35 Note Text: This note was created using Jymobriter. Subjective Epi Landaverde is a 68 year old female. Patient presents with: Recheck Nasrin is a 68-year-old female with a history of chronic fatigue syndrome and fibromyalgia, presenting for follow-up after experiencing flu-like symptoms on July 20. Nasrin reports persistent cephalalgia and low-grade fevers since [...] a significant change from her usual state. Nasrin has been taking iron and vitamin C [...] apnea Current Outpatient Medications Medication Sig Ipratropium Megargel (ATROVENT) 21 mcg (0.03 %) nasal spray [...] regular rhythm. Heart evin (more content not included)...[facility]04-[facility] History of Present illness Narrative* Eriberto Tovar MD - 07/25/2024 7:25 PM EDT This note was created using NoteWriter. Subjective Epi Landaverde is a 68 year old female. Patient presents with: Recheck Nasrin is a 68-year-old female with a history of chronic fatigue syndrome and fibromyalgia, presenting for follow-up after experiencing flu-like symptoms on July 20. Nasrin reports persistent cephalalgia and low-grade fevers since [...] a significant change from her usual state. Nasrin has been taking iron and vitamin C [...] apnea Current Outpatient Medications Medication Sig Ipratropium Megargel (ATROVENT) 21 mcg (0.03 %) nasal spray [...] normal range - Low iron stores - Catahoula test: Past infection, not acute (07/10) - [...] current management. Eriberto Tovar MD Recording using Penneo software for draft documentation of the visit was discussed with the patient/authorized contracts representative; all questions welcomed and answered. Patient/authorized contracts representative agreed to proceed documented in this encounterGuernsey Memorial Hospital04-22-2025 Progress note* Result Encounter Note - Sanjay Yates APRN.CNS - 07/25/2024 4:20 PM EDT Insignificant colony count. OV July 25, 2024 [facility]04-18-2025 Progress note* Result Encounter Note - Sanjay Yates APRN.CNS - 07/21/2024 3:37 PM EDT EDDIE, ESR, CRP rheumatoid factor within normal limits. No concerning findings on urine culture. Negative fungal sputum culture [facility]04-18-2025 Progress note* Result Encounter Note - Sanjay Yates APRN.CNS - 07/21/2024 9:35 AM EDT normal ESR [facility]04-18-2025 Progress note* Result Encounter Note - Sanjay Yates APRN.CNS - 07/21/2024 9:34 AM EDT mixed kp, no PMN [facility]04-17-2025 Instructions* Patient Instructions* Sanjay Yates APRN.CNS - [...] Dr. Tovar as scheduled. documented in this encounterGuernsey Memorial Hospital04-17-2025 NoteHNO ID: [id number] Author: SANJAY YATES APRN.BALWINDER Service: ? Author Type: Nurse Specialist Type: Progress Notes Filed: 07/21/2024 09:33 Note Text: Subjective Patient ID: Nasrin is a 68 year old female who [...] Mucosal edema present. No rhinorrhea. Mouth/Throat: Lips: [place]. Mouth: Mucous membranes are moist. Pharynx: Oropharynx [...] in each nostril twice daily, sent to [facility]. - Discussed the possibility of rheumatology or infectious disease referral if fever persists. - Follow-up appointment scheduled with Dr. Tovar next week. 4. Family history of rheumatoid arthritis (Z82.61) - Family history includes two cousins with rheumatoid arthritis. - Discussed the potential for rheumatology referral if symptoms persist. Other orders Ipratropium Megargel (ATROVENT) 21 mcg (0.03 %) nasal spray; Use 2 sprays in the nose every 12 hours. as needed for nasal congestion Medical Decision Making: Problems: Low: Acute, uncomplicated illness or injury Data: Unique test(s) ordered: 3+ Risk: Moderate: Drug management Medical Decision Making Level: 4 - ModerateFirelands [facility] Medical Center04-17-2025 History of Present illness Narrative* Sanjay Yates APRN.MEMORY CARE DIRECTOR - 07/20/2024 3:03 PM EDT Subjective Patient ID: Nasrin is a 68 year old female who [...] Mucosal edema present. No rhinorrhea. Mouth/Throat: Lips: [place]. Mouth: Mucous membranes are moist. Pharynx: Oropharynx [...] in each nostril twice daily, sent to [facility]. - Discussed the possibility of rheumatology or infectious disease referral if fever persists. - Follow-up appointment scheduled with Dr. Tovar next week. 4. Family history of rheumatoid arthritis (Z82.61) - Family history includes two cousins with rheumatoid arthritis. - Discussed the potential for rheumatology referral if symptoms persist. Other orders Ipratropium Megargel (ATROVENT) 21 mcg (0.03 %) nasal spray; Use 2 sprays in the nose every 12 hours. as needed for nasal congestion Medical Decision Making: Problems: Low: Acute, uncomplicated illness or injury Data: Unique test(s) ordered: 3+ Risk: Moderate: Drug management Medical Decision Making Level: 4 - Moderate documented in this encounterGuernsey Memorial Hospital04-16-2025 History of Present illness Narrative* Lexy Pack RT(Dionne) - 07/19/2024 11:50 AM EDT Radiology Service Progress Note PATIENT NAME: Epi Landaverde DATE OF SERVICE: July 19, 2024 [...] PATIENT PRESENTS WITH AN IMPLANTABLE OR ATTACHED WEIGHT CLERK: No RADIOLOGY DEPARTMENT: General X-ray: Exam(s) Completed: Chest X-Ray PERIPHERAL IV DATA: Not applicable SIGNED BY: REBECCA Villaseñor) July 19, 2024 2:27 PM documented in this encounterGuernsey Memorial Hospital04-16-2025 NoteHNO ID: [id number] Author: LEXY PACK RT(R) Service: ? Author Type: Technologist Type: Progress Notes Filed: 07/19/2024 14:28 Note Text: Radiology Service Progress Note PATIENT NAME: Epi Landaverde DATE OF SERVICE: July 19, 2024 [...] PATIENT PRESENTS WITH AN IMPLANTABLE OR ATTACHED WEIGHT CLERK: No RADIOLOGY DEPARTMENT: General X-ray: Exam(s) Completed: Chest X-Ray PERIPHERAL IV DATA: Not applicable SIGNED BY: RT Charleen(R) July 19, 2024 2:27 [facility]04-15-2025 Telephone encounter Note* Telephone Encounter - Sanjay Yates APRN.CNS - 07/18/2024 1:16 PM EDT Reports ongoing fever and fatigue, ordered lab work including EBV panel, CBC CMP chest x-ray,urinalysis. Endorse recheck in office. If unrevealing for cause consider rheumatology o infectious disease for FUO. [facility]04-15-2025 Miscellaneous Notes* Telephone Encounter - Sanjay Yates [...] 18, 2024 8:23 AM documented in this encounterGuernsey Memorial Hospital04-15-2025 Telephone encounter Note * Telephone Encounter - [...] Mendoza LPN July 18, 2024 8:23 AM [facility]04-08-2025 Progress note* Result Encounter Note - Sanjay Yates APRN.CNS - 07/11/2024 7:04 AM EDT Negative [facility]04-08-2025 Miscellaneous Notes* Result Encounter Note - Sanjay Yates APRN.CNS - 07/11/2024 7:04 AM EDT Negative documented in this encounterGuernsey Memorial Hospital04-07-2025 [id number] (AGENT OF COVID-19) RNA: Not detected INFLUENZA A RNA: Not detected INFLUENZA B RNA: Not detected RESPIRATORY SYNCYTIAL VIRUS (RSV) RNA: Not detectedFirelands Regional Medical CenterComment on above:Performed By: #### [id number] ####[facility] LABCLIA [id number] [address]04-07-2025 Instructions* Patient Instructions* Sanjay Yates APRN.CNS - 07/10/2024 12:40 PM EDT documented in this encounterGuernsey Memorial Hospital04-07-2025 History of Present illness Narrative* Sanjay Yates APRN.CNS - 07/10/2024 12:28 PM EDT SUBJECTIVE Epi Landaverde is a 68 year old female [...] - LISINOPRIL 10 MG TABLET Sanjay Yates APRN.MEMORY CARE DIRECTOR - Discussed symptom monitoring and supportive care [...] Level: 3 - Low documented in this encounterGuernsey Memorial Hospital04-07-2025 NoteHNO ID: [id number] Author: SANJAY YATES APRN.CNS Service: ? Author Type: Nurse Specialist Type: Progress Notes Filed: 07/10/2024 13:04 Note Text: SUBJECTIVE Epi Landaverde is a 68 year old female [...] - LISINOPRIL 10 MG TABLET Sanjay Yates APRN.MEMORY CARE DIRECTOR - Discussed symptom monitoring and supportive care [...] management Medical Decision Making Level: 3 - LowFirelands Regional Medical Center04-03-2025 Progress note* Result Encounter Note - Sanjay Yates APRN.CNS - 07/06/2024 7:18 AM EDT Note cardiology visit scheduled, requesting TTE [facility] Work Phone: 1(858) 654-199004-03-2025 Miscellaneous Notes* Result Encounter Note - Sanjay Yates APRN.CNS - 07/06/2024 7:18 AM EDT Note cardiology visit scheduled, requesting TTE documented in this encounterGuernsey Memorial Hospital04-02-2025 Telephone encounter Note * Telephone Encounter - Rossy Mendoza LPN - 07/05/2024 2:45 PM EDT Jyotsna made aware that order has been faxed for the ECHO [facility]04-02-2025 Miscellaneous Notes* Telephone Encounter - Rossy Mendoza LPN - 07/05/2024 2:45 PM EDT Jyotsna made aware that order has been faxed for the ECHO * Telephone Encounter - Eriberto Tovar MD - 07/05/2024 2:30 PM EDT Filed order * Telephone Encounter - Karen Hendrix RN - 07/05/2024 1:33 PM EDT Jyotsna from [facility] calls and states [facility] does have a provider that is willingto see patient prior to surgery date on 07/17/2024. Shipping/Receiving Manager is asking if patient can get ECHO done prior to appointment. [facility] cannot order this testing because patient is not an es tablished with them yet. [facility] will not order testing even though they had called [facility] requesting that patient be seen and cleared prior to cardiac cardiology. Jyotsna is asking if PCP can order the testing and fax the order to [facility] scheduling and notify Jyotsna when orderis faxed. Jyotsna spoke with patient who had told her that she requested referral to be faxed over to [facility] to see which office can see her first. Please review and advise, Karen Hendrix RN documented in this encounterGuernsey Memorial Hospital04-02-2025 Telephone encounter Note * Telephone Encounter - Eriberto Tovar MD - 07/05/2024 2:30 PM EDT Filed order [facility]04-02-20[facility] Telephone encounter Note* Telephone Encounter - Karen Hendrix RN - 07/05/2024 1:33 PM EDT Jyotsna from [facility] calls and states [facility] does have a provider that is willingto see patient prior to surgery date on 07/17/2024. Shipping/Receiving Manager is asking if patient can get ECHO done prior to appointment. [facility] cannot order this testing because patient is not an es tablished with them yet. [facility] will not order testing even though they had called [facility] requesting that patient be seen and cleared prior to cardiac cardiology. Jyotsna is asking if PCP can order the testing and fax the order to [facility] scheduling and notify Jyotsna when orderis faxed. Jyotsna spoke with patient who had told her that she requested referral to be faxed over to [facility] to see which office can see her first. Please review and advise, Karen Hendrix RN [facility]04-02-2025 Telephone encounter Note* Telephone Encounter - Ronny Mills RN - 07/05/2024 9:38 AM EDT Faxed cardiology referral and EKG results to [facility], per patient request. [facility]: phone # [phone], [facility]04-02-2025 Miscellaneous Notes* Telephone Encounter - Ronny Mills RN - 07/05/2024 9:38 AM EDT Faxed cardiology referral and EKG results to [facility], per patient request. [facility]: phone # [phone], documented in this encounterGuernsey Memorial Hospital04-01-2025 Instructions* Patient Instructions* Sanjay Yates APRN.CNS - 07/04/2024 3:12 PM EDT Schedule an appointment with cardiology documented in this encounterGuernsey Memorial Hospital04-01-2025 NoteHNO ID: [id number] Author: SANJAY YATES APRN.CNS Service: ? Author Type: Nurse Specialist Type: Progress Notes Filed: 07/04/2024 15:59 Note Text: Subjective Patient ID: Nasrin is a 68 year old female who presents for Follow Up. [facility] Epi Landaverde presents for recheck having seen Eriberto [...] scheduled with Dr. Barrios partner Evangelista Jones [facility] 07/10/2024. Abnormal EKG: - Recent EKG showed possible cardiac enlargement and prior IA. - Denies current chest pain, dyspnea, palpitations, dizziness, or edema. - Able to walk on flat surfaces without dyspnea or chest pain unlimited; unable to assess stair climbing due to knee pain. - Remote history of irregular heartbeats; previously suspected MVP. - No history of CAD, IA or CVA. Has history of SHANNON and [...] throat after seeing Dr. Tovar; evaluated at [facility], strep test negative. - Symptoms have resolved; [...] symptoms. - Labs rev (more content not included)...[facility]04-01-[facility] History of Present illness Narrative* YatesSanjay, CARLOS.MEMORY CARE DIRECTOR - 07/04/2024 2:21 PM EDT Subjective Patient ID: Nasrin is a 68 year old female who presents for Follow Up. [facility] Epi Landaverde presents for recheck having seen Eriberto [...] scheduled with Dr. Barrios partner Evangelista Jones [facility] 07/10/2024. Abnormal EKG: - Recent EKG showed possible cardiac enlargement and prior IA. - Denies current chest pain, dyspnea, palpitations, dizziness, or edema. - Able to walk on flat surfaces without dyspnea or chest pain unlimited; unable to assess stair climbing due to knee pain. - Remote history of irregular heartbeats; previously suspected MVP. - No history of CAD, IA or CVA. Has history of SHANNON and mild anemia. - Family history of CAD and CVA in mother, maternal grandfather, and brother. - No history of pulmonary, renal, or hepatic disease. - Last stress test was over 30 years ago, with normal results. Exertion is limit by knee pain. Prior EKG at Medicare wellness visit 02/03/2021 NSR, left axis deviation. Stress echo treadmill 2012 completed for ftigue and dizziness negative for [...] throat after seeing Dr. Tovar; evaluated at [facility], strep test negative. - Symptoms have resolved; [...] breath or chest pain. - Referral to [facility] for cardiology evaluation and potential [...] palpitations, dizziness, or edema. - Referral to [facility] for further evaluation and potential [...] Level: 4 - Moderate documented in this encounterGuernsey Memorial Hospital04-01-2025 Telephone encounter Note * Telephone Encounter - Nasrin Garcia LPN - 07/04/2024 10:50 AM EDT Mirna from [employer] calling requesting copy of patient latest CBC to be faxed to [phone].Printed and faxed as requested. [facility]04-01-2025 Miscellaneous Notes* Telephone Encounter - Nasrin Garcia LPN - 07/04/2024 10:50 AM EDT Mirna from [employer] calling requesting copy of patient latest CBC to be faxed to [phone].Printed and faxed as requested. documented in this encounterGuernsey Memorial Hospital03-31-2025 Telephone encounter Note * Telephone Encounter - Sanjay Yates APRN.CNS - 07/03/2024 3:33 PM EDT Has OV tomorrow. EKG scanned, ordered by Dr. Barrios, abnormal EKG 06/27/2024. [facility] Work Phone: 1(741) 860-655603-31-2025 Miscellaneous Notes* Telephone Encounter - Sanjay Yates APRN.CNS - 07/03/2024 3:33 PM EDT Has OV tomorrow. EKG scanned, ordered by Dr. Barrios, abnormal EKG 06/27/2024. * Telephone Encounter - Rhea Rees RN - 07/03/2024 9:35 AM EDT In response to Dr. Tovar' note below: 1) Pre-Op Follow Up scheduled for patient, for this week with Sanjay Yates CNP 2) Pt's Pre-Op at [facility] is scheduled for 07/10/24 * Telephone [...] Mills RN - 06/30/2024 4:26 PM EDT Zoey- [facility]- reports she faxed the clearance form again today. Reports she needs the clearance form and ov notes by next week or pre op clearance appt will have to be re-scheduled. [facility] Phoned pt to ask how she is feeling pt reports she started having REICH and bad sore throat yesterday,on left side of throat. Reports she started using warm salt water gargles and Usnea gtts under her tongue yesterday and feeling better today. Still using the salt water gargles and Usnea gtts. Mikel still has REICH and sore throat but not bad today. States she knows her WBC's were high and states she is willing to see steel molder if pcp thinks she should. Please advise [...] PM EDT Rec'd labs via fax from [facility](although already rec'd them and in scanned documents) No new clearance form or EGK. * Telephone Encounter - Shilpa Pathak LPN - 06/28/2024 10:22 AM EDT [facility] faxing Preop Clearance form for Dr. Tovar to complete. EKG was done at [facility], [facility] will fax to Dr. Tovar to review, fax back. Shilpa Pathak LPN * Telephone Encounter - Rhea Rees RN - 06/28/2024 9:53 AM EDT Zoey calling from [facility]. Patient had Surgical Clearance appt with Dr. Tovar on 06/19/24. They are in need of an updated clearance form including PCP review of pt's recent lab and EKG results, faxed back to them. Zoey states she faxed information over to PCP office yesterday, 06/27/24. Please fax completed information back to them at FAX #: [phone] Rhea Rees RN documented in this encounterGuernsey Memorial Hospital03-31-2025 Telephone encounter Note * Telephone Encounter - Rhea Rees RN - 07/03/2024 9:35 AM EDT In response to Dr. Tovar' note below: 1) Pre-Op Follow Up scheduled for patient, for this week with Sanjay Yates CNP 2) Pt's Pre-Op at [facility] is scheduled for 07/10/24 [facility]03-30-2025 Telephone encounter Note* Telephone Encounter - Eriberto [...] at her convenience before the appointment. . [facility]03-29-2025 NoteHNO ID: [id number] Author: ISIDORO WILSON APRN.GERIATRIC CASE MANAGER Service: ? Author Type: Nurse Practitioner Type: [...] Artery Disease Mother 35 35 at first [place] Ischemic Heart Disease Mother Stroke Mother Coronary [...] nausea and vomiting. Mus (more content not included)...[facility]03-29-[facility] History of Present illness Narrative* Isidoro Wilson, CARLOS.GERIATRIC CASE MANAGER - 07/01/2024 1:54 PM EDT Subjective HPI [...] USED WITH CPAP DEVICE glucosam sul na/chondr galavn a na(GLUCOSAMINE-CHONDROITIN 3X 750 MG-600 MG TAB) [...] Artery Disease Mother 35 35 at first [place] Ischemic Heart Disease Mother Stroke Mother Coronary [...] of care. This note was generated using [employer] software. It may contain errors in wording, punctuation, or spelling. Isidoro Wilson APRN.CHERIE documented in this encounterGuernsey Memorial Hospital03-28-2025 Telephone encounter Note * Telephone Encounter - Ronny Mills RN - 06/30/2024 4:26 PM EDT Ximena Franco- reports she faxed the clearance form again today. Reports she needs the clearance form and ov notes by next week or pre op clearance appt will have to be re-scheduled. [facility] Phoned pt to ask how she is [...] and states she is willing to see steel molder if pcp thinks she should. Please advise patient. [facility]03-28-2025 Telephone encounter Note* Telephone Encounter - Marleen [...] noted as sore throat on 06/29/24 started. [facility] [facility] Tele[facility] Note* Telephone Encounter - Marleen Enriquez LPN - 06/29/2024 10:57 AM EDT EKG REC'D AND TO PCP TO REVIEW [facility]03-26-2025 Telephone encounter Note* Telephone Encounter - Marleen Enriquez LPN - 06/28/2024 12:13 PM EDT Rec'd labs via fax from [facility](although already rec'd them and in scanned documents) No new clearance form or EGK. [facility]03-26-2025 Telephone encounter Note* Telephone Encounter - Shilpa Pathak LPN - 06/28/2024 10:22 AM EDT [facility] faxing Preop Clearance form for Dr. Tovar to complete. EKG was done at [facility], [facility] will fax to Dr. Tovar to review, fax back. Shilpa Pathak LPN [facility]03-26-2025 Telephone encounter Note* Telephone Encounter - Rhea Rees RN - 06/28/2024 9:53 AM EDT Zoey calling from [facility]. Patient had Surgical Clearance appt with Dr. Tovar on 06/19/24. They are in need of an updated clearance form including PCP review of pt's recent lab and EKG results, faxed back to them. Zoey states she faxed information over to PCP office yesterday, 06/27/24. Please fax completed information back to them at FAX #: [phone] Rhea Rees RN [facility]03-20-2025 Instructions* Patient Instructions* Gabriela Britt APRN.CNP - 06/22/2024 2:28 PM EDT [employer] documented in this encounterGuernsey [facility]03-20-2025 NoteHNO ID: [id number] Author: GABRIELA BRITT APRN.CNP Service: ? Author Type: Nurse Practitioner Type: Progress Notes Filed: 06/27/2024 20:56 Note Text: Epi Landaverde is a 68 year old female [...] Living2 SAB0 IAB0 Ectopic0 Multiple0 Live Births0 Refrigeration Engine Operator History LMP: 10/02/2007, Postmenopausal Age at Menarche: Age at First : Age at Menopause: Refrigeration Engine Operator History Comments: Sexual Activity: Yes; Male; Postmenopausal [...] Artery Disease Mother 35 35 at first [place] Ischemic Heart Disease Mother Stroke Mother Coronary [...] REVIEW OF SYSTEMS Allergies (more content not included)...[facility]03-20-2025 History of Present illness Narrative* Gabriela Britt, CARLOS.GERIATRIC CASE MANAGER - 06/22/2024 2:06 PM EDT Epi Landaverde is a 68 year old female [...] Living2 SAB0 IAB0 Ectopic0 Multiple0 Live Births0 Refrigeration Engine Operator History LMP: 10/02/2007, Postmenopausal Age at Menarche: Age at First : Age at Menopause: Refrigeration Engine Operator History Comments: Sexual Activity: Yes; Male; Postmenopausal [...] Artery Disease Mother 35 35 at first [place] Ischemic Heart Disease Mother Stroke Mother Coronary [...] discussed with the Patient or Patient's Authorized Integrated Specialist. As applicable, any other physician, advance practice provider, medical student, or other health professional student that will be observing or involved in the sensitive examination for educational or training purposes was discussed with the Patient or Authorized Integrated Specialist. The Patient or Authorized Integrated Specialist has agreed to proceed with the sensitive examination. (Sensitive examination includes inspection and/or palpation of the breasts, pelvis, prostate and anorectal regions). EXAM: BP 126/78 Wt 172 lb (78.0kg) LMP 10/02/2007 GENERAL: pleasant, female in no apparent distress CHEST: Normal inspiratory effort ABDOMEN: soft, non-tender, and no masses PELVIC: external genitalia normal, normal Bartholin's glands, urethra, [address]'s glands, no cervical lesions, physiologic discharge present, [...] acid suppositories Follow-up as needed. Gabriela Britt APRN.CNP Medical Decision Making: Problems: Moderate: 1+ chronic illnesses with change and 2+ stable chronic illnesses Risk: Moderate: Drug management Medical Decision Making Level: 4 - Moderate documented in [facility]Gu[facility]03[facility] Instructions* Patient Instructions* Eriberto Tovar MD - [...] Barrios is scheduled for July 17 at [facility]. Follow all pre-operative instructions provided by your surgical team. - Ensure that your dental infection is fully resolved before surgery. - Follow up with Dr. Garcia for pain management after surgery as directed by your surgical team. documented in this encounterGuernsey [facility]03-17-2025 NoteHNO ID: [id number] Author: ERIBERTO TOVAR MD Service: ? Author Type: Physician Type: Progress Notes Filed: 06/19/2024 15:21 Note Text: This note was created using [email or web address]. Subjective Epi Landaverde is a 68 year old female. HISTORY Epi Landaverde is a 68 year old lady here for pre-op evaluation as requested by Dr. Barrios. Epi Landaverde has surgery scheduled on 07/17/24 for Right TKA at [facility]. Nasrin is a 68-year-old female presenting for a preoperative evaluation for a right TKA scheduled with Dr. Barrios on 07/17/2024 at [facility]. Nasrin reports a history of postoperative emesis following [...] flatulence, managed with 4 Gas-X pills before confucianism, but denies eructation. She drinks one carbonated [...] one(1) tablet daily (more content not included)... [facility]03-17-2025 History of Present illness Narrative* Eriberto Tovar MD - 06/19/2024 2:53 PM EDT This note was created using NoteWriter. Subjective Epi Landaverde is a 68 year old female. HISTORY Epi Landaverde is a 68 year old lady here for pre-op evaluation as requested by Dr. Barrios. Epi Barfield has surgery scheduled on 07/17/24 for Right TKA at [facility]. Nasrin is a 68-year-old female presenting for a preoperative evaluation for a right TKA scheduled with Dr. Barrios on 07/17/2024 at [facility]. Nasrin reports a history of postoperative emesis following [...] flatulence, managed with 4 Gas-X pills before confucianism, but denies eructation. She drinks one carbonated [...] Artery Disease Mother 35 35 at first [place] Ischemic Heart Disease Mother Stroke Mother Coronary [...] knee arthroplasty scheduled with Dr. Barrios on 07/17/2024t [facility]. - No medical contraindications identified during [...] surgery. Eriberto Tovar MD documented in this encounterGu[facility]03-[facility]2025 Telephone encounter Note * Telephone Encounter - [...] Duque LPN June 06, 2024 11:40 AM [facility]03-04-2025 Miscellaneous Notes* Telephone Encounter - Abdulkadir Duque [...] 06, 2024 11:40 AM documented in this encounterGuernsey [facility]02-[facility]-2025 Telephone encounter Note * Telephone Encounter - Eriberto Tovar MD - 05/10/2024 12:29 PM EST The following approved medication requests have been transmitted electronically. Requested Prescriptions Pending Prescriptions Disp Refills venlafaxine ER (EFFEXOR XR) 150 mg 24 hr capsule 180 capsule 3 Sig: Take 1 capsule by mouth two times a day. Eriberto Tovar MD [facility]02-05-2025 Miscellaneous Notes* Telephone Encounter - Eriberto Tovar [...] review. Shilpa Pathak LPN documented in this encounterGuernsey [facility] Hospital02-04-2025 Telephone encounter Note * Telephone Encounter - Shilpa Pathak LPN - 05/09/2024 1:53 PM EST Patient notified that she does have 1 refill remaining for Crestor (Rosuvastatin), Patient will contact pharmacy. Shilpa Pathak LPN [facility]02-04-2025 Miscellaneous Notes* Telephone Encounter - Shilpa Pathak LPN - 05/09/2024 1:53 PM EST Patient notified that she does have 1 refill remaining for Crestor (Rosuvastatin), Patient will contact pharmacy. Shilpa Pathak LPN documented in this encounterGuernsey [facility] Hospital02-04-2025 Telephone encounter Note * Telephone Encounter - Shilpa Pathak LPN - 05/09/2024 1:52 PM EST Per pharmacy, exceeds maximum dose, please review. Shilpa Pathak LPN [facility]01-31-2025 History of Present illness Narrative* Betsy Molina RT(R) - 05/05/2024 11:30 AM EST Radiology Service Progress Note PATIENT NAME: Epi Landaverde DATE OF SERVICE: May 05, 2024 [...] PATIENT PRESENTS WITH AN IMPLANTABLE OR ATTACHED WEIGHT CLERK: No RADIOLOGY DEPARTMENT: Mammography PERIPHERAL IV DATA: Not applicable SIGNED BY: RT Rolando(R) May 05, 2024 11:36 AM * Michael Dunlap Mammo Tech - 05/05/2024 11:30 AM EST Radiology Service Progress Note PATIENT NAME: Epi Landaverde DATE OF SERVICE: May 05, 2024 [...] PATIENT PRESENTS WITH AN IMPLANTABLE OR ATTACHED WEIGHT CLERK: No RADIOLOGY DEPARTMENT: Mammography PERIPHERAL IV DATA: Not applicable SIGNED BY: Arnaud Hamilton May 05, 2024 11:36 AM documented in this encounterGuernsey Memorial Hospital01-31-2025 NoteHNO ID: [id number] Author: MICHAEL DUNLAP Mammo Tech Service: ? Author Type: Electric Switch Repairer Type: Progress Notes Filed: 05/05/2024 11:36 Note Text: Radiology Service Progress Note PATIENT NAME: Epi Landaverde DATE OF SERVICE: May 05, 2024 [...] PATIENT PRESENTS WITH AN IMPLANTABLE OR ATTACHED WEIGHT CLERK: No RADIOLOGY DEPARTMENT: Mammography PERIPHERAL IV DATA: Not applicable SIGNED BY: Travon HamiltonSugarSync Alexy May 05, 2024 11:36 [facility]01-31-2025 NoteHNO ID: [id number] Author: BETSY MOLINA RT(R) Service: ? Author Type: Technologist Type: Progress Notes Filed: 05/05/2024 11:36 Note Text: Radiology Service Progress Note PATIENT NAME: Epi Landaverde DATE OF SERVICE: May 05, 2024 [...] PATIENT PRESENTS WITH AN IMPLANTABLE OR ATTACHED WEIGHT CLERK: No RADIOLOGY DEPARTMENT: Mammography PERIPHERAL IV DATA: Not applicable SIGNED BY: RT Rolando(R) May 05, 2024 11:36 [facility]01-03-2025 Telephone encounter Note* Telephone Encounter - Eriberto Tovar MD - 04/07/2024 1:40 AM EST The following approved medication requests have been transmitted electronically. Requested Prescriptions Signed Prescriptions Disp Refills gabapentin (NEURONTIN) 400 mg capsule 360 capsule 1 Sig: Take 1 capsule by mouth four times daily for 180 days. as directed Authorizing Provider: ERIBERTO TOVAR MD [facility]01-03-2025 Miscellaneous Notes* Telephone Encounter - Eriberto Tovar [...] 06, 2024 11:41 AM documented in this encounterGuernsey Memorial Hospital01-02-2025 Telephone encounter Note * Telephone Encounter - [...] Silverman LPN April 06, 2024 11:41 AM [facility]12-10-2024 Instructions* Patient Instructions* Eriberto Toavr MD - 03/14/2024 4:40 PM EST - [...] appointment is in September. documented in this encounterGuernsey Memorial Hospital12-10-2024 NoteHNO ID: [id number] Author: ERIBERTO TOVAR MD Service: ? Author Type: Physician Type: Progress Notes Filed: 03/14/2024 16:44 Note Text: This note was created using [email or web address]. Subjective Epi Landaverde is a 68 year old female. Patient presents with: F/U 6 months SUBJECTIVE: Epi Landaverde is a 68 year old year old lady here today for 6 month follow up appointment for review of medical conditions. Epi Landaverde is a 68-year-old female with a history of hypercholesterolemia, presenting for a 6-month follow-up. Epi reports recent lab results showing elevated magnesium and vitamin B levels. She has since discontinued her B-complex supplement and reduced her magnesium intake to 250 mg at bedtime. She is also taking calcium supplements. Epi reports a recent anal fissure, which she attributes to insufficient magnesium intake and is now taking a stool softener. She reports experiencing heat intolerance and excessive sweating, particularly on her forehead, over the past few months. 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 She is unable to wear socks or heavy clothing due to the heat. She denies sweating on her feet or hands. Epi also reports unintentional weight loss and persistent fatigue, despite getting good sleep with the help of trazodone. She denies taking any thyroid supplements. Epi reports a recent colonoscopy that was incomplete due to inadequate bowel preparation, despite following the instructions. She is scheduled for a repeat colonoscopy next year and is concerned about having to discontinue diclofenac for 5 days, which she finds painful. Epi also reports a right knee replacement surgery scheduled for July 17 at [facility]. She has declined further COVID-19 vaccinations but has received her flu shot. Epi is due for a mammogram and plans [...] 97% BMI 26.53 (more content not included)... [facility]12-10-2024 History of Present illness Narrative* Eriberto Tovar MD - 03/14/2024 4:10 PM EST This note was created using NoteWriter. Subjective Epi Landaverde is a 68 year old female. Patient presents with: F/U 6 months SUBJECTIVE: Epi Landaverde is a 68 year old year old lady here today for 6 month follow up appointment for review of medical conditions. Epi Landaverde is a 68-year-old female with a history of hypercholesterolemia, presenting for a 6-month follow-up. Epi reports recent lab results showing elevated magnesium and vitamin B levels. She has since discontinued her B-complex supplement and reduced her magnesium intake to 250 mg at bedtime. She is also taking calcium supplements. Epi reports a recent anal fissure, which she attributes to insufficient magnesium intake and is now taking a stool softener. She reports experiencing heat intolerance and excessive sweating, particularly on her forehead, over the past few months. 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 She is unable to wear socks or heavy clothing due to the heat. She denies sweating on her feet or hands. Epi also reports unintentional weight loss and persistent fatigue, despite getting good sleep with the help of trazodone. She denies taking any thyroid supplements. Epi reports a recent colonoscopy that was incomplete due to inadequate bowel preparation, despitefollowing the instructions. She is scheduled for a repeat colonoscopy next year and is concerned about having to discontinue diclofenac for 5 days, which she finds painful. Epi also reports a rightknee replacement surgery scheduled for July 17 at [facility]. She has declined further COVID-19 vaccinations but has received her flu shot. Epi is due for a mammogram and plans [...] Abs Lymph 1.00 - 4.00 k/uL 2.36 [place]oula% % 9.5 Abs [place] <0.87 k/uL 0.65 Eosin% % 1.5 Abs [...] the date of the service which included [id number] patient care, completing clinical documentation, obtaining and/or reviewing separately obtained history, performing a medically appropriate examination, counseling and educating the patient/family/caregiver, ordering medications, tests, or procedures, independently interpreting results (not separately reported), and communicating results to the patient/family/caregiver. Eriberto Tovar MD documented in this encounterGuernsey [facility] Hospital12-06-2024 Telephone encounter Note * Telephone Encounter - Radha Han LPN - 03/10/2024 3:55 PM EST Patient notified of providers message and verbalized understanding [facility]12-06-2024 Miscellaneous Notes* Telephone Encounter - Radha Han LPN - 03/10/2024 3:55 PM EST Patient notified of providers message and verbalized understanding * Telephone Encounter - Sanjay Yates APRN.CNS [...] is treated with clobetasol and SHARI through [employer] for the Lichen sclerosus. Reviewed care advice. Patient has glycerin suppositories at home as well. Recommended she try one of those if she continues to have trouble that is causing pressure and skin issues. Patient also drinking increased water and walking as much as she can but area is rather painful. Patient requests call back at [phone] Manda Welch RN documented in this encounterGuernsey Memorial Hospital12-06-2024 Telephone encounter Note * Telephone Encounter - Sanjay Yates APRN.MEMORY CARE DIRECTOR - 03/10/2024 12:20 PM EST What did she reduce magnesium to? Med list shows Mag oxide 500 mg BID. If just taking one per day she can increase to 1.5 per day. For constipation recommend sufficient fluids, increased fiber intake, can add Miralax once or twicedaily as needed for constipation. Use clobetasol cream BID. Route back if needed [facility]12-06-2024 Telephone encounter Note* Telephone Encounter - Manda [...] is treated with clobetasol and SHARI through [employer] for the Lichen sclerosus. Reviewed care advice. Patient has glycerin suppositories at home as well. Recommended she try one of those if she continues to have trouble that is causing pressure and skin issues. Patient also drinking increased water and walking as much as she can but area is rather painful. Patient requests call back at [phone] Manda Welch RN [facility]12-04-2024 Telephone encounter Note* Telephone Encounter - Merly Izquierdo APRN.CNP - 03/08/2024 2:20 PM EST Noted Merly Izquierdo APRN.CNP [facility] Work Phone: [phone]) 651-605712-04-2024 Miscellaneous Notes* Telephone Encounter - Merly Izquierdo APRN.CNP - 03/08/2024 2:20 PM EST Noted Merly Izquierdo APRN.CNP * Telephone Encounter - Rossy Mendoza LPN - 03/01/2024 4:03 PM EST BlanquitaKhadijah Topher (unsure of spelling) called form [facility] Chemistry lab with a correction on the Free T3. It was resulted as 6.1 but the corrected result is 5.4. documented in this encounterGuernsey Memorial Hospital11-27-2024 Telephone encounter Note * Telephone Encounter - Rossy Mendoza LPN - 03/01/2024 4:03 PM EST BlanquitaKhadijah Topher (unsure of spelling) called form [facility] Chemistry lab with a correction on the Free T3. It was resulted as 6.1 but the corrected result is 5.4. [facility]11-25-2024 NoteHNO ID: [id number] Author: RICHY DOMINGUEZ APRN.GERIATRIC CASE MANAGER Service: ? Author Type: Nurse Practitioner Type: Progress Notes Filed: 02/28/2024 16:02 Note Text: SUBJECTIVE Epi Landaverde is a 68 year old female here today for acute concern. Chief Complaint Patient presents with: Weight Loss: and states feeling hot all the time HPI Epi Landaverde is a 68 year old female. [...] Obstructive Sleep Apnea Comment: DISHA Moss (F) [phone] (P) [phone] [facility] for compliance report Dyspareunia - 05/23/2012 [...] status is at baselin (more content not included)...[facility] 02-28-2024 History of Present illness Narrative* Richy Dominguez APRN.GERIATRIC CASE MANAGER - 02/28/2024 3:46 PM EST SUBJECTIVE Epi Landaverde is a 68 year old female here today for acute concern. Chief Complaint Patient presents with: Weight Loss: and states feeling hot all the time HPI Epi Landaverde is a 68 year old female. [...] Obstructive Sleep Apnea Comment: DISHA Moss (F) [phone] (P) [phone] [facility] for compliance report Dyspareunia - 05/23/2012 [...] scheduled appointment.. GET Rangel documented in this encounterGuernsey Memorial Hospital11-25-2024 NoteHNO ID: [id number] Author: CASANDRA BLAIR APRN.CNM Service: ? Author Type: Dermatologist Type: Progress Notes Filed: 02/28/2024 14:59 Note Text: Library Acquisitions Technician offered: Patient declines. Epi Landaverde is a 68 year old female [...] discussed with the Patient or Patient's Authorized Integrated Specialist. As applicable, any other physician, advance practice provider, medical student, or other health professional student that will be observing or involved in the sensitive examination for educational or training purposes was discussed with the Patient or Authorized Integrated Specialist. The Patient or Authorized Integrated Specialist has agreed to proceed with the sensitive [...] RTO - as needed / yearly exams Casandra Blair APRN.[facility]11-25-2024 History of Present illness Narrative* Casandra Blair APRN.[facility] - 02/28/2024 1:43 PM EST Library Acquisitions Technician offered: Patient declines. Epi Landaverde is a 68 year old female [...] discussed with the Patient or Patient's Authorized Integrated Specialist. As applicable, any other physician, advance practice provider, medical student, or other health professional student that will be observing or involved in the sensitive examination for educational or training purposes was discussed with the Patient or Authorized Integrated Specialist. The Patient or Authorized Integrated Specialist has agreed to proceed with the sensitive [...] RTO - as needed / yearly exams Casandra Blair APRN.CNM documented in this encounterGuernsey Memorial Hospital10-24-2024 Note* Discharge Instr - Nursing - Sakina Lopes RN - 01/27/2024 12:57 PM EDT The patient received a copy of Colonoscopy discharge instructions that contain information for how to contact the physician who performed the procedure and when to seek medical care. [facility]10-24-2024 Miscellaneous Notes* Discharge Instr - Nursing - Sakina Lopes RN - 01/27/2024 12:57 PM EDT The patient received a copy of Colonoscopy discharge instructions that contain information for how to contact the physician who performed the procedure and when to seek medical care. documented in this encounterGuernsey Memorial Hospital10-24-2024 Nurse Note* Sakina Lopes RN - 01/27/2024 12:52 PM EDT Patient arrived laying on left side. Patient does not appear to be in any pain at this time. Abdomen appears to be nondistended and soft to palpation. Patient encouraged to belch and pass gas as needed. [facility]10-24-2024 Nurse Note* Sakina Lopes RN - 01/27/2024 12:52 PM EDT Patient arrived laying on left side. Patient does not appear to be in any pain at this time. Abdomen appears to be nondistended and soft to palpation. Patient encouraged to belch and pass gas as needed. documented in this encounterGuernsey Memorial Hospital10-24-2024 History and physical note * Ghulam Choe MD - 01/27/2024 12:15 PM EDT HISTORY AND PHYSICAL Epi Landaverde : 1955 REFERRING PHYSICIAN: No referring provider defined for this encounter. CHIEF COMPLAINT: Patient presents with: Consult HPI: Epi is a 68 year old female referred for endoscopy. Epi notes due for screening colonoscopy. Epi denies abdominal pain.. Epi denies diarrhea. Epi denies constipation. Epi denies a change in bowel habits. Epi denies melena. Epi denies bright red blood per rectum. Epi denies hemorrhoids. Epi denies heartburn. Epi denies dysphagia. Epi denies a history of ulcers/ peptic ulcer disease. Denies family history of colon issues. Epi has undergone prior endoscopy. Last colonoscopy 12/[address] Shields at [facility]. Sedation received: Midazolam 7 mg IV, [...] Artery Disease Mother 35 35 at first [place] Ischemic Heart Disease Mother Stroke Mother Coronary [...] failure to complete the endoscopy and perforation. Epi had the opportunity to ask questions concerning the planned endoscopy. My staff has also explained the procedure to the patient inunderstandable terms and has given the patient printed material concerning the procedure. Epi freely consents to surgery. I plan to [...] ask questions and all questions were answered. Epi chooses IV conscious sedation Epi was counseled that if there are changes [...] discussed with the Patient or Patient's Authorized Integrated Specialist. Asapplicable, any other physician, advance practice provider, medical student, or other health professional student that will be observing or involved in the sensitive examination for educational or training purposes was discussed with the Patient or Authorized Integrated Specialist. The Patient or Authorized Integrated Specialist has agreed to proceed with the sensitive [...] can be found in the attached. SIGNATURE: Ghulam Choe III, MD PATIENT NAME: Epi Landaverde DATE: January 27, 2024 TIME: 11:50 AM [facility]10-24-2024 History and physical note* Ghulam Choe MD - 01/27/2024 12:15 PM EDT HISTORY AND PHYSICAL Epi Landaverde : 1955 REFERRING PHYSICIAN: No referring provider defined for this encounter. CHIEF COMPLAINT: Patient presents with: Consult HPI: Epi is a 68 year old female referred for endoscopy. Epi notes due for screening colonoscopy. Epi denies abdominal pain.. Epi denies diarrhea. Epi denies constipation. Epi denies a change in bowel habits. Epi denies melena. Epi denies bright red blood per rectum. Epi denies hemorrhoids. Epi denies heartburn. Epi denies dysphagia. Epi denies a history of ulcers/ peptic ulcer disease. Denies family history of colon issues. Epi has undergone prior endoscopy. Last colonoscopy 12/[address] Shields at [facility]. Sedation received: Midazolam 7 mg IV, [...] Artery Disease Mother 35 35 at first [place] Ischemic Heart Disease Mother Stroke Mother Coronary [...] failure to complete the endoscopy and perforation. Epi had the opportunity to ask questions concerning the planned endoscopy. My staff has also explained the procedure to the patient inunderstandable terms and has given the patient printed material concerning the procedure. Epi freely consents to surgery. I plan to [...] ask questions and all questions were answered. Epi chooses IV conscious sedation Epi was counseled that if there are changes [...] edited and updated as necessary. Mayela Luna APRN.CHERIE UPDATED HISTORY AND PHYSICAL EXAMINATION SERVICE DATE: 01/27/2024 SERVICE TIME: 11:50 AM SENSITIVE EXAMINATION CONSENT: The sensitive examination was discussed with the Patient or Patient's Authorized Integrated Specialist. Asapplicable, any other physician, advance practice provider, medical student, or other health professional student that will be observing or involved in the sensitive examination for educational or training purposes was discussed with the Patient or Authorized Integrated Specialist. The Patient or Authorized Integrated Specialist has agreed to proceed with the sensitive [...] can be found in the attached. SIGNATURE: Ghulam Choe III, MD PATIENT NAME: Epi Landaverde DATE: January 27, 2024 TIME: 11:50 AM documented in this encounterGuernsey [facility]10-17-2024 Instructions* Patient Instructions* Eriberto Tovar MD - [...] month to monitor anemia. documented in this encounterGuernsey Memorial Hospital10-17-2024 NoteHNO ID: [id number] Author: ERIBERTO TOVAR MD Service: ? Author Type: Physician Type: Progress Notes Filed: 01/20/2024 16:33 Note Text: This note was created using Jymobriter. Subjective Epi Landaverde is a 68 year old female. Patient presents with: Follow Up SUBJECTIVE: Epi Landaverde is a 68 year old year [...] normal. Thought Content: Though (more content not included)...[facility] 01-20-2024 History of Present illness Narrative* Eriberto Tovar MD - 01/20/2024 4:14 PM EDT This note was created using Jymobriter. Subjective Epi Landaverde is a 68 year old female. Patient presents with: Follow Up SUBJECTIVE: Epi Landaverde is a 68 year old year old lady here today for follow up appointment for review of medical conditions. The patient is a 68-year-old female with a history of arthritis and microcytic anemia, presenting for a medication refill. The patient is scheduled for a colonoscopy next week, followed by surgery ont. She has been advised to discontinue diclofenac [...] Abs Lymph 1.00 - 4.00 k/uL 2.36 Catahoula% % 9.5 Abs Catahoula <0.87 k/uL 0.65 Eosin% % 1.5 Abs [...] period off diclofenac. - Prescription sent to [facility] # Microcytic anemia (D50.9) - Recent labs [...] therapy. Eriberto Tovar MD documented in this encounterGuernsey [facility] Hospital10-16-2024 Telephone encounter Note * Telephone Encounter - Lis Layton RN - 01/19/2024 7:27 PM EDT Spoke with patient. Given message from provider's office. Patient verbalizes understanding. Scheduled appointment. Lis Layton RN [facility]10-16-2024 Miscellaneous Notes* Telephone Encounter - Lis Layton [...] Yvonne Garrido - 01/13/2024 12:55 PM EDT Nasrin is calling Eriberto Tovar MD today with [...] calling: self Call patient at: on cell [phone] (home) [phone] (cell) Was an appointment scheduled: No Closing statement: Results or non-symptom based questions: Thank you for calling [facility], your call will be returned within the next business day. Yvonne Garrido documented in this encounterGuernsey Memorial Hospital10-16-2024 Telephone encounter Note * Telephone Encounter - Eriberto Tovar MD - 01/19/2024 7:09 PM EDT Needs seen before can prescribed controlled medications like opiates like oxycodone [facility]10-16-2024 Telephone encounter Note* Telephone Encounter - Regina Khalil LPN - 01/19/2024 1:10 PM EDT Printed TE to bring to attention of PCP to address. Regina Khalil LPN [facility]10-16-[facility]24 Telephone encounter Note* Telephone Encounter - Ronny [...] Please advise and phone patient with reply. [facility]10-10-2024 Telephone encounter Note* Telephone Encounter - Yvonne Garrido - 01/13/2024 12:55 PM EDT Nasrin is calling Eriberto Tovar MD today with [...] calling: self Call patient at: on cell [phone] (home) [phone] (cell) Was an appointment scheduled: No Closing statement: Results or non-symptom based questions: Thank you for calling [facility], your call will be returned within the next business day. Yvonne Garrido [facility]10-04-2024 Telephone encounter Note* Telephone Encounter - Rossy [...] Mendoza LPN January 07, 2024 12:18 PM [facility]10-04-2024 Miscellaneous Notes* Telephone Encounter - Rossy Mendoza [...] 07, 2024 12:18 PM documented in this encounterGuernsey Memorial Hospital10-04-2024 Telephone encounter Note * Telephone Encounter - [...] Mendoza LPN January 07, 2024 12:17 PM [facility]10-04-2024 Miscellaneous Notes* Telephone Encounter - Rossy Mendoza [...] 07, 2024 12:17 PM documented in this encounterGuernsey Memorial Hospital09-14-2024 Telephone encounter Note * Telephone Encounter - Eriberto Tovar MD - 12/18/2023 3:43 PM EDT Patient canceled request [facility]09-14-2024 Miscellaneous Notes* Telephone Encounter - Eriberto Tovar MD - 12/18/2023 3:43 PM EDT Patient canceled request documented in this encounterGuernsey Memorial Hospital09-11-2024 Nurse Note* Evelin Bah MA - 12/15/2023 [...] 04/2023 Last Colonoscopy: 12/05/2013 Evelin Bah MA [facility]09-11-2024 Nurse Note* Evelin Bah MA - 12/15/2023 [...] 12/05/2013 Evelin Bah MA documented in this encounterGuernsey Memorial Hospital09-11-2024 History of Present illness Narrative* Mayela Luna APRN.GERIATRIC CASE MANAGER - 12/15/2023 3:00 PM EDT HISTORY AND PHYSICAL Epi Landaverde : 1955 REFERRING PHYSICIAN: No referring provider defined for this encounter. CHIEF COMPLAINT: Patient presents with: Consult HPI: Epi is a 68 year old female referred for endoscopy. Epi notes due for screening colonoscopy. Epi denies abdominal pain.. Epi denies diarrhea. Epi denies constipation. Epi denies a change in bowel habits. Epi denies melena. Epi denies bright red blood per rectum. Epi denies hemorrhoids. Epi denies heartburn. Epi denies dysphagia. Epi denies a history of ulcers/ peptic ulcer disease. Denies family history of colon issues. Epi has undergone prior endoscopy. Last colonoscopy 12/[address] Shields at [facility]. Sedation received: Midazolam 7 mg IV, [...] Artery Disease Mother 35 35 at first [place] Ischemic Heart Disease Mother Stroke Mother Coronary [...] failure to complete the endoscopy and perforation. Epi had the opportunity to ask questions concerning the planned endoscopy. My staff has also explained the procedure to the patient inunderstandable terms and has given the patient printed material concerning the procedure. Epi freely consents to surgery. I plan to [...] ask questions and all questions were answered. Epi chooses IV conscious sedation Epi was counseled that if there are changes [...] edited and updated as necessary. Mayela Luna APRN.CEHRIE documented in this encounterGuernsey Memorial Hospital09-11-2024 NoteHNO ID: [id number] Author: MAYELA LUNA APRN.CHERIE Service: ? Author Type: Nurse Practitioner Type: Progress Notes Filed: 12/15/2023 16:05 Note Text: HISTORY AND PHYSICAL Epi Landaverde : 1955 REFERRING PHYSICIAN: No referring provider defined for this encounter. CHIEF COMPLAINT: Patient presents with: Consult HPI: Epi is a 68 year old female referred for endoscopy. Epi notes due for screening colonoscopy. Epi denies abdominal pain.. Epi denies diarrhea. Epi denies constipation. Epi denies a change in bowel habits. Epi denies melena. Epi denies bright red blood per rectum. Epi denies hemorrhoids. Epi denies heartburn. Epi denies dysphagia. Epi denies a history of ulcers/ peptic ulcer disease. Denies family history of colon issues. Epi has undergone prior endoscopy. Last colonoscopy 12/[address] Shields at [facility]. Sedation received: Midazolam 7 mg IV, [...] Artery Disease Mother 35 35 at first [place] Ischemic Heart Disease Mother Stroke Mother Coronary [...] Blood pressure 120/82, pulse (more content not included)...[facility]08-21-2024 Instructions* Patient Instructions* Eriberto Tovar MD - [...] after your eye surgery. documented in this encounterGuernsey Memorial Hospital08-21-2024 NoteHNO ID: [id number] Author: ERIBERTO TOVAR MD Service: ? Author Type: Physician Type: Progress Notes Filed: 11/24/2023 17:55 Note Text: This note was created using [email or web address]. Subjective Epi Landaverde is a 67 year old female. Patient presents with: Same Day Appointment: Discuss pain medication while off diclofenac for surgery SUBJECTIVE: Epi Landaverde is a 67 year old year [...] hips, and lower back. (more content not included)...[facility]08-21-2024 History of Present illness Narrative* Eriberto Tovar MD - 11/24/2023 5:41 PM EDT This note was created using Jymobriter. Subjective Epi Landaverde is a 67 year old female. Patient presents with: Same Day Appointment: Discuss pain medication while off diclofenac for surgery SUBJECTIVE: Epi Landaverde is a 67 year old year [...] plan. Eriberto Tovar MD documented in this encounterGuernsey Memorial Hospital08-20-2024 Telephone encounter Note * Telephone Encounter - Doreen Wren RN - 11/23/2023 8:25 AM EDT Pt called and is notified of providers message and instructions. Pt voices understanding and scheduled with Dr Tovar tomorrow. Doreen Wren RN [facility]08-20-2024 Miscellaneous Notes* Telephone Encounter - Doreen Wren RN - 11/23/2023 8:25 AM EDT Pt called and is notified of providers message and instructions. Pt voices understanding and scheduled with Dr Tovar tomorrow. Doreen Wren RN * Telephone Encounter - Eriberto [...] within [facility] system. * Telephone Encounter - Doreen Wren RN - 11/22/2023 1:31 PM EDT Pt is scheduled to have eyelid surgery, (blepharoplasty), at [facility], WednesdayNovember 29.Pt is to discontinue any blood [...] constant ache. Pt states she uses [facility] in [place]. Please call and advise. Pt. documented in this encounterGuernsey Memorial Hospital08-19-2024 Telephone encounter Note * Telephone Encounter - [...] 2009. Percocet 2010 from within [facility] system. [facility]08-19-[facility] Telephone encounter Note* Telephone Encounter - Doreen Wren RN - 11/22/2023 1:41 PM EDT Turned into an TE on 11/22/23. [facility]08-19-2024 Miscellaneous Notes* Telephone Encounter - Doreen Wren RN - 11/22/2023 1:41 PM EDT Turned into an TE on 11/22/23. documented in this encounterGuernsey Memorial Hospital08-19-2024 Telephone encounter Note * Telephone Encounter - Doreen Wren RN - 11/22/2023 1:31 PM EDT Pt is scheduled to have eyelid surgery, (blepharoplasty), at [facility], WednesdayNovember 29.Pt is to discontinue any blood [...] constant ache. Pt states she uses [facility] in [place]. Please call and advise. Pt. [facility]07-09-[facility] Telephone encounter Note* Telephone Encounter - Luca Woodruff MA - 10/12/2023 9:57 AM EDT Images from the original note were not included. [facility]07-09-2024 Miscellaneous Notes* Telephone Encounter - Luca Woodruff MA - 10/12/2023 9:57 AM EDT Images from the original note were not included. documented in this encounterGuernsey Memorial Hospital05-31-2024 History of Present illness Narrative* Eriberto Tovar MD - 09/03/2023 3:12 PM EDT This note was created using Jymobriter. Subjective Epi Landaverde is a 67 year old female. HISTORY Epi Landaverde is a 67 year old lady here for pre-op evaluation as requested by Dr. Mcclain. Epi Landaverde has surgery scheduled on October 01, 2023 for left foot floating metatarsal osteotomy with hammer toe correction fifth digit under MAC anesthesia at [facility]. No problems with MAC anesthesia before. No [...] Artery Disease Mother 35 35 at first [place] Ischemic Heart Disease Mother Stroke Mother Coronary [...] preop evaluation will be communicated with Dr. Ghulam Mcclain via fax of their signed Surgical Clearance Request and copy of this preop evaluation. Eriberto Tovar MD documented in this encounterGuernsey Memorial Hospital05-30-2024 Telephone encounter Note * Telephone Encounter - Eriberto Tovar MD - 09/02/2023 1:30 AM EDT The following approved medication requests have been transmitted electronically. Requested Prescriptions Pending Prescriptions Disp Refills traZODone (DESYREL) 50 mg tablet 30 tablet 0 Sig: Take 0.5-1 tablets by mouth daily at bedtime. Eriberto Tovar MD [facility]05-30-2024 Miscellaneous Notes* Telephone Encounter - Eriberto Tovar [...] Thank you. IQRA [place]. documented in this encounterGuernsey Memorial Hospital05-29-2024 Telephone encounter Note * Telephone Encounter - [...] 09/03/2023 Please advise. Thank you. IQRA [place]. [facility]05-08-2024 Telephone encounter Note* Telephone Encounter - Rossy Mendoza LPN - 08/11/2023 12:49 PM EDT PATIENT NOTIFIED OF SAME. [facility]05-08-2024 Miscellaneous Notes* Telephone Encounter - Rossy Mendoza [...] and she will get the baby aspirin [id number]. [facility] the statin [facility]. Evelin Sage LPN * Telephone Encounter - [...] and/or 80 mg Aspirin documented in this encounterGuernsey Memorial Hospital05-08-2024 Telephone encounter Note * Telephone Encounter - [...] at bedtime. Authorizing Provider: ERIBERTO TOVAR MD [facility]05-08-2024 Telephone encounter Note* Telephone Encounter - Evelin Sage LPN - 08/11/2023 8:23 AM EDT Spoke with pt and information listed below given. Pt verbalizes understanding. Pt willing to start on a statin and she will get the baby aspirin [id number]. Pharmacy for the statin [facility]. Evelin Sage LPN [facility]05-08-2024 Telephone encounter Note* Telephone Encounter - Evelin [...] to start statin and/or 80 mg Aspirin [facility]04-25-2024 NoteHNO ID: [id number] Author: SHOLA CHAU Tech Service: ? Author Type: Electric Switch Repairer Type: Progress Notes Filed: 07/29/2023 15:49 Note Text: Radiology Service Progress Note PATIENT NAME: Epi Landaverde DATE OF SERVICE: July 29, 2023 [...] PATIENT PRESENTS WITH AN IMPLANTABLE OR ATTACHED WEIGHT CLERK: No RADIOLOGY DEPARTMENT: CT; Exam(s) Completed: Cardiac PERIPHERAL IV DATA: Not applicable SIGNED BY: Alexy blanco July 29, 2023 3:48 PM04-25-2024 History of Present illness Narrative* Shola Chau Tech - 07/29/2023 3:30 PM EDT Radiology Service Progress Note PATIENT NAME: Epi Landaverde DATE OF SERVICE: July 29, 2023 [...] PATIENT PRESENTS WITH AN IMPLANTABLE OR ATTACHED WEIGHT CLERK: No RADIOLOGY DEPARTMENT: CT; Exam(s) Completed: Cardiac PERIPHERAL IV DATA: Not applicable SIGNED BY: Alexy blanco July 29, 2023 3:48 PM documented in this encounterGuernsey Memorial Hospital04-05-2024 History of Present illness Narrative* Eriberto Tovar MD - 07/09/2023 2:39 PM EDT This note was created using [email or web address]. Subjective Epi Landavedre is a 67 year old female. Patient presents with: F/U 6 months SUBJECTIVE: Epi Landaverde is a 67 year old year [...] Abs Lymph 1.00 - 4.00 k/uL 2.36 Catahoula% % 9.5 Abs Catahoula <0.87 k/uL 0.65 Eosin% % 1.5 Abs [...] need for BiPAP machine Note drafted by [email or web address]. Note reviewed, edited, and signed by the visit provider. * Eriberto Tovar MD - 07/09/2023 2:39 PM EDT PHQ-9 Score: 8 (Mild Depression) DALLIN-7 Score: 1 (Minimal Anxiety) Continuing current treatment plan documented in this encounterGuernsey Memorial Hospital03-14-2024 History of Present illness Narrative* Lilly Rodas CNP - 06/17/2023 4:43 PM EDT Epi Juares 1955 CC: 67 y.o. is a she [...] chronicity Follow Up: No follow-ups on file. Lilly Rodas CNP documented in this [id number] Miscellaneous Notes* Telephone Encounter - Evelin Sage LPN - 06/03/2023 4:01 PM EST Pt called in to report that the referral to ortho Dr. Arora FAX: [phone] did not go thru andneeded to be re-faxed. Record shows fax went thru. Let a message at Ulysses Lopez's office [phone] to call if they did not receive this. Pt notified we re-faxed and showed it went thru. Evelin Sage LPN documented in this encounterGuernsey Memorial Hospital02-29-2024 Miscellaneous Notes* Telephone Encounter - Lis Layton RN - 06/03/2023 3:10 PM EST Patient calling to say [facility] tell her they did not receive faxed consult. Verified fax # [phone]. Faxed again. Lis Layton RN * Telephone Encounter - Ronny Mills RN - 06/03/2023 10:06 AM EST Faxed Consult to Orthopaedics, to fax number [phone]. Pt aware. * Telephone Encounter - Richy [...] Needs diagnosis. Requesting referral be faxed to [facility] at [phone]. Please call patient once referral placed. Manda Welch RN documented in this encounterGuernsey Memorial Hospital02-29-2024 History of Present illness Narrative* Jenny Mansfield [...] 03, 2023 1:22 PM documented in this encounterGuernsey Memorial Hospital09-08-2023 Miscellaneous Notes* Telephone Encounter - Katie Ayon MA - 12/11/2022 3:12 PM EDT Patient notified of results, verbalized understanding of instructions given. Katie Ayon MA * Telephone Encounter - Abraham Garcia MD - 12/11/2022 2:57 PM EDT Urine culture did not show a clear infection. Finish antibiotic if helping and follow up with PCP, urology, or INTEGRATION SOFTWARE DEVELOPER to have urine rechecked for blood. documented in this encounterGuernsey Memorial Hospital09-07-2023 Miscellaneous Notes* Telephone Encounter - Sanjay Yates APRN.CNS - 12/10/2022 4:55 PM EDT OK labs and, schedule appt please * Telephone Encounter - Ronny Mills RN - 12/10/2022 4:17 PM EDT Patient reports she was seen in UC today and was told to ask pcp to order routine labs for her. Last had labs done in 2019. Pended. Last ov: 05-08-22 Next ov: none documented in this encounterGuernsey Memorial Hospital09-07-2023 Instructions* Patient Instructions* Sonido David APRN.CNP - [...] from front to back documented in this encounterGuernsey Memorial Hospital09-07-2023 History of Present illness Narrative* Sonido David APRN.CNP - 12/10/2022 3:21 PM EDT Subjective HPI HPI Epi Landaverde is a 67 year old female [...] Artery Disease Mother 35 35 at first [place] Ischemic Heart Disease Mother Stroke Mother Coronary [...] found for this encounter. documented in this encounterGuernsey Memorial Hospital08-11-2023 Miscellaneous Notes* Telephone Encounter - Radha Aguilar [...] to say she was seen by Martha Franco on 11/09/22 for knee problem. She states she is having Physical Therapy and she was given a walker to use today. She is requesting a script for a handicap placard. Please mail to address on file. Lis Layton RN documented in this encounterGuernsey Memorial Hospital08-02-2023 Miscellaneous Notes* Telephone Encounter - Evelin Sage [...] you. Evelin Sage LPN documented in this encounterGuernsey Memorial Hospital08-02-2023 Miscellaneous Notes* Telephone Encounter - Evelin Sage [...] Thank you. Evelin ROSALES documented in this encounterGuernsey Memorial Hospital05-01-2023 History of Present illness Narrative* Martha Meier APRN.GERIATRIC CASE MANAGER - 08/03/2022 1:53 PM EDT Subjective UTI Associated symptoms include nausea and frequency. Pertinent negatives include no chills, no vomiting, no hematuria and no flank pain. Epi Landaverde is a 66 year old female [...] Wt 83.9 kg (185 lb) LMP 10/02/2007 [id number]% BMI 28.98 kg/m PAST MEDICAL HISTORY Diagnosis [...] Artery Disease Mother 35 35 at first [place] Ischemic Heart Disease Mother Stroke Mother Coronary [...] ICD10: R35.0 acute - UA positive for leix esterase and hematuria - Send urine for [...] illness Martha Meier APRN.CNP documented in this encounterGuernsey Memorial Hospital05-01-2023 Instructions* Patient Instructions* Martha Meier APRN.CNP - [...] actually have an infection. documented in this encounterGuernsey Memorial Hospital04-20-2023 History of Present illness Narrative* Kailey Perez APRN.CHERIE - 07/23/2022 3:56 PM EDT CC: Patient presents with: Urinary Frequency: Frequency, burning and urgency x 6 days HPI Epi Landaverde is a 66 year old female [...] Artery Disease Mother 35 35 at first [place] Ischemic Heart Disease Mother Stroke Mother Coronary [...] Patient agreeable to treatment plan. Kailey Perez APRN.CHERIE documented in this encounterGuernsey Memorial Hospital03-23-2023 Miscellaneous Notes* Letter - Mammography Coordinator - 06/25/2022 2:28 PM EDT June 26, 2022 PID: [id number] Epi Azar [address] [place] [address] Dear Ms. Landaverde, We are pleased to inform you that [...] report will be [facility] as part of your permanent medical record and are available for your continuing care. Thank you for allowing us to help in meeting your health care needs. Sincerely, Dr. Nagy Interpreting Radiologist [facility] (Normal over 40) documented in this encounterGuernsey Memorial Hospital02-03-2023 Instructions* Patient Instructions* Eriberto Tovar MD - [...] your usual activities immediately. documented in this encounterGuernsey Memorial Hospital02-03-2023 History of Present illness Narrative* Eribetro Tovar MD - 05/08/2022 6:49 PM EST This note was created using eSNFter. Subjective Epi Landaverde is a 66 year old female. No chief complaint on file. SUBJECTIVE: Epi Landaverde is a 66 year old year [...] management. Eriberto Tovar MD documented in this encounterGuernsey Memorial Hospital01-20-2023 Miscellaneous Notes* Telephone Encounter - Kiersten Swenson [facility] - 04/24/2022 3:36 PM EST Patient has [...] No need to notify patient. Kiersten Swenson [facility] Electronically signed by Kiersten Swenson [facility] at 04/24/2022 3:42 PM EST documented in this encounterGuernsey Memorial Hospital01-17-2023 Instructions* Patient Instructions* Asiya Boyle PA-C - [...] not contaminate your hand documented in this encounterGuernsey Memorial Hospital01-17-2023 History of Present illness Narrative* Asiya Boyle PA-C - 04/21/2022 5:15 PM EST Subjective HPI HPI Epi Landaverde is a 66 year old female [...] Artery Disease Mother 35 35 at first [place] Ischemic Heart Disease Mother Stroke Mother Coronary [...] plan. Asiya Boyle PA-C documented in this encounterGuernsey Memorial Hospital01-09-2023 Miscellaneous Notes* Telephone Encounter - Rhea Rees RN - 04/13/2022 4:07 PM EST Patient returned call and given provider's message below and patient verbalized understanding. Jaye Rees RN * Telephone Encounter - Lexy Caro - 04/13/2022 9:16 AM EST Left message for patient to return call. Lexy Caro * Telephone Encounter - Kailey Perez APRN.CNP - 04/13/2022 7:16 AM EST Negative for flu and COVID please notify documented in this encounterGuernsey Memorial Hospital01-08-2023 History of Present illness Narrative* SHERIDAN Soto - 04/12/2022 3:31 PM EST This note was created using NoteWriter. Subjective Epi Landaverde is a 66 year old female. [...] Wt 78.9 kg (174 lb) LMP 10/02/2007 [id number]% BMI 27.25 kg/m Physical Exam Vitals and [...] start Augmentin. SHERIDAN Soto documented in this encounterGu[facility]11[facility]-2022 Miscellaneous Notes* Telephone Encounter - Marily Quiñones Ma - 02/12/2022 1:10 PM EST Notified via [employer]. Marily Quiñones Ma * Telephone Encounter - [...] advise. Rossy Mendoza LPN documented in this encounterGuernsey [facility] Hospital11-10-2022 Miscellaneous Notes* Telephone Encounter - Eriberto Tovar [...] advise. Rossy Mendoza LPN documented in this encounterGuernsey [facility] Hospital11-10-2022 Miscellaneous Notes* Telephone Encounter - Eriberto Tovar [...] advise. Rossy Mendoza LPN documented in this encounterGuernsey [facility] Hospital10-23-2022 Instructions* Patient Instructions* Raina Tse APRN.GERIATRIC CASE MANAGER - 01/25/2022 2:12 PM EDT Rest, increase [...] mouth daily at bedtime documented in this encounterGuernsey [facility] Hospital10-23-2022 History of Present illness Narrative* Raina Tse APRN.CHERIE - 01/25/2022 2:08 PM EDT Subjective The history is provided by the patient. No science interpreter was used. HPI Epi Landaverde is a 66 year old female [...] have confirmed and edited as necessary, the [facility] Review of Systems Constitutional: Negative for chills [...] evaluation. Raina Tse APRN.CHERIE documented in this encounterGuernsey [facility] Hospital09-29-2022 Instructions* Patient Instructions* Felicita Durán - 01/01/2022 [...] to your local emergency facility: Notify the wastewater plant operator that you are seeking care for someone [...] can be around others. documented in this encounterGuernsey [facility] Hospital09-29-2022 History of Present illness Narrative* Martha Meier APRN.GERIATRIC CASE MANAGER - 01/01/2022 5:06 PM EDT Subjective Cough Associated symptoms include chills, ear pain (right), headaches and sore throat. Pertinent negatives include no shortness of breath, no wheezing and no eye redness. Epi Landaverde is a 66 year old female [...] Wt 78.7 kg (173 lb 9.6 oz) [facility]10[facility]2007 SpO2 96% BMI 27.19 kg/m PAST MEDICAL [...] Artery Disease Mother 35 35 at first [place] Ischemic Heart Disease Mother Stroke Mother Coronary [...] re-checked. Felicita Durán APRN Student TEACHING PROVIDER (Physician/PA/CHEERLEADING COACH) NOTE OF PERSONAL INVOLVEMENT IN CARE: I have personally seen and examined the patient and performed the medical decision-making components. I have reviewed the Advanced Practice Registered Nurse (CHEERLEADING COACH) Student's documentation and verified the findings in the note as written. Any additions or changes are noted in bold/italics. Signature: Martha Meier Date: 01/01/2022 Time: 6:30 PM documented in this encounterGuernsey Memorial Hospital08-03-2022 Miscellaneous Notes* Telephone Encounter - Merly Powell [...] patient. Manda Welch RN documented in this encounterGuernsey Memorial Hospital08-03-2022 History of Present illness Narrative* Abraham Garcia [...] CORONAVIRUS Abraham Garcia MD documented in this encounterGuernsey Memorial Hospital07-28-2022 Instructions* Patient Instructions* Gabriela Britt APRN.GERIATRIC CASE MANAGER - 10/30/2021 2:16 PM EDT How To [...] agents from your environment. documented in this encounterGuernsey Memorial Hospital07-28-2022 History of Present illness Narrative* Gabriela Britt APRN.CNP - 10/30/2021 1:49 PM EDT Library Acquisitions Technician offered: Patient declines. Nasrin is a 65 year old who presents for an annual gynecologic exam without complaints. LS - has been out of clobetasol. Using twice a day keeps it well-controlled. Postmenopausal: Yes since age 50ish HRT use: Yes, 3 times weekly How long: many years. Last Pap: 2017 normal HPV: 2017 negative History of abnormal [...] L2 SAB0 IAB0 Ectopic0 Multiple0 Live Births0 Refrigeration Engine Operator History LMP: 10/02/2007, Postmenopausal Age at Menarche: Age at First : Age at Menopause: Refrigeration Engine Operator History Comments: Sexual Activity: Yes; Male; Postmenopausal [...] Artery Disease Mother 35 35 at first [place] Ischemic Heart Disease Mother Stroke Mother Coronary [...] external genitalia normal, normal Bartholin's glands, urethra, [address]'s glands, no vulvar lesions, no cervical lesions, [...] current order LS - Clobetasol sent to [facility], to use [facility] for affordable goodrich Revaree vaginal moisturizer recommended - given information. 2) Follow up one year or sooner as needed Gabriela Britt APRN.CHERIE documented in this encounterGuernsey Memorial Hospital06-01-2022 Instructions* Patient Instructions* Hayde Jay APRN.CNP - [...] spread by coughs, sneezes, anddirect contact, especially racn-st-bseg. A respiratory tract infection usually clears up [...] or other serious complaints. documented in this encounterGuernsey Memorial Hospital06-01-2022 History of Present illness Narrative* Hayde Jay APRN.CNP - 09/03/2021 3:22 PM EDT This note was created using e[employer]. Subjective Epi Landaverde is a 65 year old female. [...] history is provided by the patient. No science interpreter was used. Cough This is a new [...] Artery Disease Mother 35 35 at first [place] Ischemic Heart Disease Mother Stroke Mother Coronary [...] Follow up with Dr. Tovar. Hayde Jay APRN.GERIATRIC CASE MANAGER documented in this encounterGuernsey Memorial Hospital06-01-2022 Miscellaneous Notes* Telephone Encounter - Doreen Wren RN - 09/03/2021 2:47 PM EDT Pt called and is notified of providers message and instructions. Pt voices understanding, [facility]. Doreen Wren RN * Telephone Encounter - Eriberto Tovar MD - 09/03/2021 1:22 PM EDT [...] advise, Karen Hendrix RN documented in this encounterGuernsey Memorial Hospital05-25-2022 Instructions* Patient Instructions* Eriberto Tovar MD - 08/27/2021 7:27 PM EDT FACT SHEET FOR PATIENTS, PARENTS, AND CAREGIVERS EMERGENCY USE AUTHORIZATION (EUA) OF PAXLOVID FOR CORONAVIRUS DISEASE 2019 (COVID-19) You are being given this Fact Sheet because your healthcare provider believes it is necessary to provide you with PAXLOVID for the treatment of ygrb-sj-kjouzfsm coronavirus disease (COVID-19) caused by the SARS-CoV-2 [...] virus. COVID-19 illnesses have ranged from very jczx-ii-nxvjby, including illness resulting in . While information [...] is an investigational medicine used to treat lxgc-vj-nrgpekyo COVID-19 in adults and children [12 years [...] of using PAXLOVID to treat people with fmes-xa-imovewcn COVID-19. The FDA has authorized the emergency [...] the medicines you take, including prescription and ddjo-dis-fcmvhju medicines, vitamins, and herbal supplements. Some medicines [...] oral midazolam Apalutamide Carbamazepine, phenobarbital, phenytoin Rifampin [place] s Wort (hypericum perforatum) Taking PAXLOVID with [...] to treat people with COVID-19. Go to https://www.fda.gov/xqkywvqcn-alsdpogsywew-gjxlysrgqlz/haj-xzaqg-hnzeiia crp-blr-zriqwp-framework/olwpbwqtb-wai-hbatlgaaibfky for information on the emergency use of [...] if I am or ? There is freelance court stenographer treating women or mothers with PAXLOVID. For [...] not go away. Report side effects to [place] at www.fda.gov/medTagorizetch or call 8-068-FMT-1088 or you can report side effects to [employer]. at the contact information provided below. Website Fax number Telephone number Seva Search How should I store PAXLOVID? Store PAXLOVID [...] (EUA). The EUA is supported by a Burial Vault Setter of Health and Human Service (HHS) declaration that circumstances exist to justify the emergency use of drugs and biological products during the COVID-19 pandemic. PAXLOVID for the treatment of ozks-lw-yvxrhidh COVID-19 in adults and children [12 years [...] telephone number provided below. Website Telephone number wwwNovapost (2-553-P47-PACK) You can also go to wwwobiwon or call for more information. 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 Please advise. documented in this encounterGuernsey Memorial Hospital05-12-2022 Miscellaneous Notes* Telephone Encounter - Radha Aguilar LPN - 08/14/2021 9:34 AM EDT Pharmacy is [facility]. Pharmacy has been updated * Telephone Encounter - Eriberto Tovar MD - 08/13/2021 5:28 PM EDT Which pharmacy? Offer to schedule yearly in February * Telephone Encounter - Shilpa Tonny Lawson MARMOLEJO - 08/13/2021 9:02 AM EDT Patient has [...] you. Shilpa Pathak LPN documented in this encounterGuernsey Memorial Hospital04-25-2022 Miscellaneous Notes* Telephone Encounter - Shilpa Pathak [...] you. Shilpa Pathak LPN documented in this encounterGuernsey Memorial Hospital03-24-2022 Instructions* Patient Instructions* Alejandro Ferrara - 06/26/2021 [...] sprays and irrigation kits can be purchased cioe-piv-uzmndnt. Saline mixes can also be purchased or [...] upon your individual situation. documented in this encounterGuernsey Memorial Hospital03-24-2022 History of Present illness Narrative* Martha Meier APRN.GERIATRIC CASE MANAGER - 06/26/2021 4:16 PM EDT This note was created using [employer]. Subjective Epi Landaverde is a 65 year old female [...] Artery Disease Mother 35 35 at first [place] Ischemic Heart Disease Mother Stroke Mother Coronary [...] Discussed expected course of illness TEACHING PROVIDER (Physician/PA/CHEERLEADING COACH) NOTE OF PERSONAL INVOLVEMENT IN CARE: I have personally seen and examined the patient and performed the medical decision-making components. I have reviewed the Advanced Practice Registered Nurse (CHEERLEADING COACH) Student's documentation and verified the findings in the note as written. Any additions or changes are noted in bold/italics. Signature: Martha Meier Date: 06/26/2021 Time: 4:23 PM documented in this encounterGuernsey Memorial Hospital09-08-2021 Miscellaneous Notes* Telephone Encounter - Kaleigh Schulte [...] Wednesday12/13/20. Kaleigh Schulte LPN documented in this encounterGuernsey Memorial Hospital08-21-2014 History of Past illness Narrative* Problem Noted [...] of this encounter (statuses as of 06/26/2021) [facility] Past illness Narrative* Problem Noted [...] of this encounter (statuses as of 07/28/2021) [facility] of Past illness Narrative* Problem Noted [...] of this encounter (statuses as of 07/30/2021) [facility] of Past illness Narrative* Problem Noted [...] of this encounter (statuses as of 08/14/2021) [facility] of Past illness Narrative* Problem Noted [...] of this encounter (statuses as of 08/27/2021) [facility] of Past illness Narrative* Problem Noted [...] of this encounter (statuses as of 09/03/2021) [facility] of Past illness Narrative* Problem Noted [...] of this encounter (statuses as of 09/03/2021) [facility] of Past illness Narrative* Problem Noted [...] of this encounter (statuses as of 10/30/2021) [facility] of Past illness Narrative* Problem Noted [...] of this encounter (statuses as of 11/05/2021) [facility] of Past illness Narrative* Problem Noted [...] of this encounter (statuses as of 11/05/2021) [facility] of Past illness Narrative* Problem Noted [...] of this encounter (statuses as of 01/01/2022) [facility] illness Narrative* Problem Noted [...] of this encounter (statuses as of 01/25/2022) [facility] illness Narrative* Problem Noted [...] of this encounter (statuses as of 02/12/2022) [facility] illness Narrative* Problem Noted [...] of this encounter (statuses as of 02/12/2022) [facility] illness Narrative* Problem Noted [...] of this encounter (statuses as of 04/12/2022) [facility] illness Narrative* Problem Noted [...] of this encounter (statuses as of 04/14/2022) [facility] illness Narrative* Problem Noted [...] of this encounter (statuses as of 04/22/2022) [facility] Narrative* Problem Noted [...] of this encounter (statuses as of 04/24/2022) [facility] Narrative* Problem Noted [...] of this encounter (statuses as of 05/09/2022) [facility] Narrative* Problem Noted [...] of this encounter (statuses as of 06/27/2022) [facility] Narrative* Problem Noted [...] of this encounter (statuses as of 07/24/2022) [facility] Narrative* Problem Noted [...] of this encounter (statuses as of 08/04/2022) [facility] Narrative* Problem Noted [...] of this encounter (statuses as of 11/05/2022) [facility] Narrative* Problem Noted [...] of this encounter (statuses as of 11/05/2022) [facility] Narrative* Problem Noted [...] of this encounter (statuses as of 11/14/2022) [facility] Narrative* Problem Noted [...] of this encounter (statuses as of 12/11/2022) [facility] Narrative* Problem Noted [...] of this encounter (statuses as of 12/11/2022) [facility] Narrative* Problem Noted [...] of this encounter (statuses as of 12/11/2022) [facility] Narrative* Problem Noted [...] of this encounter (statuses as of 02/07/2023) [facility] Narrative* Problem Noted [...] of this encounter (statuses as of 06/03/2023) [facility] Narrative* Problem Noted [...] of this encounter (statuses as of 06/03/2023) [facility] Narrative* Problem Noted [...] of this encounter (statuses as of 06/04/2023) [facility] Narrative* Problem Noted [...] of this encounter (statuses as of 07/14/2023) [facility]* Diagnosis Acute non-recurrent sinusitis, unspecified location- Primary Acute upper respiratory infection, unspecified documented in this encounter [facility]* Diagnosis Fibromyalgia Mylagia and myositis, unspecified [facility] Diagnosis COVID- Primary Cough documented in this encounter [facility]* Diagnosis Encounter for gynecologic examination for high-risk patient covered by Medicare- Primary Routine gynecological examination Lichen sclerosus et atrophicus Circumscribed scleroderma Pap smear for cervical cancer screening Screening for malignant neoplasm of the cervix Encounter for screening mammogram for breast cancer Dense breast tissue on mammogram [facility]* Diagnosis Sore throat- Primary Acute pharyngitis documented in this encounter [facility]* Diagnosis Sore throat- Primary Acute pharyngitis Suspected COVID-19 virus infection Impacted cerumen of right ear Impacted cerumen [facility]* Diagnosis URI, acute- Primary Acute upper respiratory infections of unspecified site documented in this encounter [facility]* Diagnosis Fibromyalgia Mylagia and myositis, unspecified [facility]* Diagnosis Elevated blood pressure reading without diagnosis of hypertension [facility]* Diagnosis Acute cough- Primary Acute frontal sinusitis, recurrence not specified [facility]* Diagnosis Yeast vaginitis Candidiasis of vulva and vagina documented [facility]* Diagnosis Fibromyalgia- Primary Mylagia and myositis, unspecified SHANNON on CPAP Obstructive sleep apnea (adult) (pediatric) Recurrent major depressive disorder, in partial remission (HCC) Mixed hyperlipidemia Chronic fatigue Other malaise and fatigue Generalized anxiety disorder Asymptomatic postmenopausal status Encounter for long-term current use of medication [facility]* Diagnosis Urinary frequency- Primary [facility]* Diagnosis Urinary frequency- Primary [facility]* Diagnosis Fibromyalgia Mylagia and myositis, unspecified [facility]* Diagnosis Fibromyalgia Mylagia and myositis, unspecified [facility]* Diagnosis Knee pain, unspecified chronicity, unspecified laterality- Primary [facility]* Diagnosis Urgency of urination- Primary [facility]* Diagnosis Recurrent major depressive disorder, in partial remission (HCC)- Primary Generalized anxiety disorder Obstructive sleep apnea Obstructive sleep apnea (adult) (pediatric) Chronic fatigue Other malaise and fatigue Encounter for lipid screening for cardiovascular disease Screening for lipoid disorders documented in this encounter [facility]* Diagnosis Encounter for screening mammogram for breast cancer Dense breast tissue on mammogram documented in this encounter [facility]* Diagnosis Chronic pain of both knees- Primary [facility] Diagnosis Primary osteoarthritis of both knees- Primary Pain in both knees, unspecified chronicity documented in this encounter [facility] note* Diagnosis Elevated LDL cholesterol level- Primary Pure hypercholesterolemia Fibromyalgia Mylagia and myositis, unspecified Family history of coronary artery disease in mother Insomnia, unspecified type SHANNON on CPAP Obstructive sleep apnea (adult) (pediatric) Mild episode of recurrent major depressive disorder (HCC) Encounter for screening for cardiovascular disorders Screening for other and unspecified cardiovascular conditions [facility] Diagnosis Elevated LDL cholesterol level Pure hypercholesterolemia Encounter for screening for cardiovascular disorders Screening for other and unspecified cardiovascular conditions Family history of coronary artery disease in mother documented in this encounter [facility]* Diagnosis Encounter for long-term current use of medication- Primary Elevated LDL cholesterol level Pure hypercholesterolemia [facility]* Diagnosis Preop examination- Primary Preoperative examination, unspecified Shoulder strain, left, initial encounter Encounter for immunization Need for other specified prophylactic vaccination against single bacterial disease [facility]* Diagnosis Generalized osteoarthritis- Primary Generalized osteoarthrosis, unspecified site Chronic bilateral low back pain without sciatica Fibromyalgia Mylagia and myositis, unspecified Chronic pain of both knees [facility]* Diagnosis Screen for colon cancer- Primary Special screening for malignant neoplasms, colon documented [facility] this [facility]* Diagnosis Chronic bilateral low back pain without sciatica Fibromyalgia Mylagia and myositis, unspecified Chronic pain of both knees documented [facility] this [facility]* Diagnosis COVID documented in this encounter [facility]* Diagnosis Fibromyalgia Mylagia and myositis, unspecified documented in this encounter [facility] note* Diagnosis Primary hypertension Unspecified essential hypertension documented [facility] this encounter [facility]* Diagnosis Chronic bilateral low back pain without sciatica- Primary Microcytic anemia Iron deficiency anemia, unspecified Fibromyalgia Mylagia and myositis, unspecified Chronic pain of both knees Mixed hyperlipidemia documented in this encounter [facility]* Diagnosis Encounter for screening for malignant neoplasm of colon- Primary Special screening for malignant neoplasms, colon Screen for colon cancer Special screening for malignant neoplasms, colon [facility] Diagnosis Chafing- Primary Other specified disorder of skin 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..] hypertension Mixed hyperlipidemia documented [facility] this [facility]* Diagnosis Fibromyalgia Mylagia and myositis, unspecified documented [facility] this [facility]* Diagnosis Preoperative evaluation to rule out surgical contraindication- Primary Other specified pre-operative examination Constipation, unspecified constipation type Gas pain Flatulence, eructation, and gas pain Dental infection Acute apical periodontitis of pulpal origin documented [facility] this [facility]* Diagnosis 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 Chafing Other specified disorder of skin Postmenopausal atrophic vaginitis documented [facility] this [facility]* Diagnosis Sore throat- Primary Acute pharyngitis Viral illness Unspecified viral infection, in conditions classified elsewhere and of unspecified site documented [facility] this [facility]* Diagnosis Leukocytosis, unspecified type- Primary documented in this [facility]* Diagnosis Preoperative clearance- Primary Preoperative examination, unspecified Primary osteoarthritis of right knee Primary localized osteoarthrosis, lower leg Leukocytosis, unspecified type Abnormal EKG Nonspecific abnormal electrocardiogram (ECG) (EKG) Iron deficiency anemia, unspecified iron deficiency anemia type [facility] Diagnosis Abnormal ECG- Primary Nonspecific abnormal electrocardiogram (ECG) (EKG) documented in this encounter [facility] note* Diagnosis Flu-like symptoms- Primary Other general symptoms Acute upper respiratory infection, unspecified Primary hypertension Unspecified essential hypertension documented in this encounter [facility] note* Diagnosis Flu-like symptoms- Primary Other general symptoms Fibromyalgia Mylagia and myositis, unspecified Acute upper respiratory infection, unspecified Fever, unspecified fever cause Other fatigue documented in this encounter [facility] note* Diagnosis Flu-like symptoms Other general symptoms Acute upper respiratory infection, unspecified Fever, unspecified fever cause documented in this encounter [facility] note* Diagnosis Flu-like symptoms- Primary Other general symptoms Acute upper respiratory infection, unspecified Fever, unspecified fever cause Family history of rheumatoid arthritis Family history of arthritis documented in this encounter [facility] note* Diagnosis Postviral fatigue syndrome- Primary Chronic fatigue syndrome Iron deficiency anemia, unspecified iron deficiency anemia type Viral cephalgia Unspecified viral infection, in conditions classified elsewhere and of unspecified site Fibromyalgia Mylagia and myositis, unspecified documented in this encounter [facility] note* Diagnosis Hemarthrosis of left knee- Primary Hemarthrosis, lower leg Chronic pain of left knee Pain in joint, lower leg Effusion of left knee Effusion of lower leg joint documented in this encounter [facility] note* Diagnosis Obstructive sleep apnea- Primary Obstructive sleep apnea (adult) (pediatric) Mixed hyperlipidemia Encounter for immunization Need for other specified prophylactic vaccination against single bacterial disease Generalized anxiety disorder Moderate recurrent major depression (HCC) Major depressive disorder, recurrent episode, moderate Anemia, unspecified type Vitamin D deficiency Unspecified vitamin D deficiency documented in this encounter [facility] note* Diagnosis Preop exam for internal medicine- Primary Other specified pre-operative examination Chronic pain of right knee Obstructive sleep apnea Obstructive sleep apnea (adult) (pediatric) Primary hypertension Unspecified essential hypertension Primary osteoarthritis of right knee Primary localized osteoarthrosis, lower leg documented in this encounter [facility] course Narrative No data available for this section [facility] Discharge instructions No data available for this section [facility] Progress note No data available for this section [facility] Reason for referral (narrative)* Diagnostic Procedure Only (Routine) - Pending Review Specialty Diagnoses / Procedures Referred By Ricky t Referred To Contact [facility] Diagnoses Encounter for screening mammogram for breast cancer Dense breast tissue on mammogram Procedures VALENTE SCREENING W MUNA SCREENING DIGITAL BREAST TOMOSYNTHESIS BI SCREENING MAMMOGRAPHY BI 2-VIEW BREAST INC Gabriela Luna APRN.CHERIE [address] [place] [address] [facility] [address] [place] [address] Referral ID Status Reason Start Date Expiration Date Visits Requested Visits Authorized [id number] Pending Review Auto-Generat ed Referral 10/30/2021 11/29/2022 1 1 [facility] for referral (narrative)* Diagnostic Procedure Only (Routine) - Closed Specialty Diagnoses / Procedures Referred By Ricky wilson Referred To Contact [facility] Diagnoses Encounter for screening mammogram for breast cancer Dense breast tissue on mammogram Procedures VALENTE SCREENING W MUNA SCREENING DIGITAL BREAST TOMOSYNTHESIS BI SCREENING MAMMOGRAPHY BI 2-VIEW BREAST INC Gabriela Luna APRN.CHERIE [address] [place] [address] [facility] [address] [place] [address] Referral ID Status Reason Start Date Expiration Date V isits Requested Visits Authorized [id number] Closed Auto-Generate d Referral 10/30/2021 11/29/2022 1 1 [facility] for referral (narrative)* Diagnostic Procedure Only (Routine) - Pending Review Specialty Diagnoses / Procedures Referred By Ricky t Referred To Contact [facility] Procedures VALENTE SCREENING W MUNA SCREENING DIGITAL BREAST TOMOSYNTHESIS BI SCREENING MAMMOGRAPHY BI 2-VIEW BREAST INC Eriberto Pittman MD [address] [place] [address] [facility] [address] [place] [address] Referral ID Status Reason Start Date Expiration Date Visits Requested Visits Authorized [id number] Pending Review Auto-Generat ed Referral 07/28/2023 08/26/2024 1 1 [facility] for referral (narrative)* Outpatient Procedure (Routine) - Authorized Specialty Diagnoses / Procedures Referred By Contdarnell t Referred To Contact [facility] Diagnoses Screen for colon cancer Procedures COLONOSCOPY SCREENING COLONOSCOPY FLX DX W/COLLJ SPEC WHEN Mayela Reaves APRN.GERIATRIC CASE MANAGER [address] [facility] [place] [address] [address] Referral ID Status Reason Start Date Expiration Date Visits Requested Visits Authorized [id number] Authorized Auto-Generat ed Referral 12/15/2023 12/14/2024 1 1 [facility] for referral (narrative)* Outpatient Procedure (Routine) - Closed Specialty Diagnoses / Procedures Referred By Ricky wilson Referred To Contact [facility] Diagnoses Screen for colon cancer Procedures COLONOSCOPY SCREENING COLONOSCOPY FLX DX W/COLLJ SPEC WHEN Mayela Reaves APRN.GERIATRIC CASE MANAGER [address] [place] [address] [facility] [address] [address] Referral ID Status Reason Start Date Expiration Date V isits Requested Visits Authorized [id number] Closed Auto-Generate d Referral 12/15/2023 12/14/2024 1 1 T [facility] for visit Narrative* Diagnostic Procedure Only (Routine) - Closed Specialty Diagnoses / Procedures Referred By Ricky t Referred To Contact [facility] Diagnoses Encounter for screening mammogram for breast cancer Dense breast tissue on mammogram Procedures VALENTE SCREENING W MUNA SCREENING DIGITAL BREAST TOMOSYNTHESIS BI SCREENING MAMMOGRAPHY BI 2-VIEW BREAST INC CAD Gabriela Britt, CHEERLEADING COACH.GERIATRIC CASE MANAGER [address] [place] [address] [facility] [address] [place] [address] Referral ID Status Reason Start Date Expiration Date V isits Requested Visits Authorized [id number] Closed Auto-Generate d Referral 10/30/2021 11/29/2022 1 1 [facility] for visit Narrative* Outpatient Procedure (Routine) - Closed Specialty Diagnoses / Procedures Referred By Contac t Referred To Contact [facility] Diagnoses Screen for colon cancer Procedures COLONOSCOPY SCREENING COLONOSCOPY FLX DX W/COLLJ SPEC WHEN Mayela Reaves, CHEERLEADING COACH.GERIATRIC CASE MANAGER [address] [place] [address] [facility] [address] [address] Referral ID Status Reason Start Date Expiration Date V isits Requested Visits Authorized [id number] Closed Auto-Generate d Referral 12/15/2023 12/14/2024 1 1 [facility] for visit Narrative* Diagnostic Procedure Only (Routine) - Closed Specialty Diagnoses / Procedures Referred By Contac t Referred To Contact [facility] Procedures VALENTE SCREENING W MUNA SCREENING DIGITAL BREAST TOMOSYNTHESIS BI SCREENING MAMMOGRAPHY BI 2-VIEW BREAST INC CAD Eriberto Tovar MD [address] [place] [address] [facility] [address] [place] [address] Referral ID Status Reason Start Date Expiration Date V isits Requested Visits Authorized [id number] Closed Auto-Generate d Referral 07/28/2023 08/26/2024 1 1 [facility] Concerns Infection Onset Date Last Indicated [...] both knees Procedures CONSULT TO ORTHOPAEDICS OFFICE/OUTPATIENT [facility] 60 MINUTES Richy Dominguez, CHEERLEADING COACH.GERIATRIC CASE MANAGER [address] [place] [address] Referral ID Status Reason Start Date Expiration Date Visits Requested Visits Authorized [id number] Authorized PCP Requested Referral 06/02/2023 05/30/2024 1 1 Specialty Diagnoses / Procedures Referred By Contac t Referred To Contact Diagnoses SHANNON on CPAP Procedures CONSULT TO SLEEP MEDICINE - ADULT OFFICE/OUTPATIENT [facility] MDM 60 MINUTES Eriberto Tovar MD [address] [place] [address] Maile Laguerre, CHEERLEADING COACH.GERIATRIC CASE MANAGER [address] [place] [address] Referral ID Status Reason Start Date Expiration Date Visits Requested Visits Authorized [id number] Authorized PCP Requested Referral 07/09/2023 07/08/2024 1 1 Specialty Diagnoses / Procedures Referred By Contac t Referred To Contact [facility] Diagnoses Elevated LDL cholesterol level Encounter for screening for cardiovascular disorders Family history of coronary artery disease in mother Procedures CT CALCIUM SCORING SELF PAY UNLISTED COMPUTED TOMOGRAPHY PROCEDURE Eriberto Tovar MD [facility] [place] [address] [place] [address] Referral ID Status Reason Start Date Expiration Date Visits Requested Visits Authorized [id number] Authorized Auto-Generat ed Referral 07/09/2023 08/07/2024 1 1 Referral ID Status Reason Start Date Expiration Date V isits Requested Visits Authorized [id number] Closed Auto-Generate d Referral 07/09/2023 08/07/2024 1 1 Summary Purpose Family History No Family History Records FoundNo Family History Records Found No data available for this section No Family History Records Found No data available for this section No Family History Records FoundNo Family History Records Found Advance Directives No Advanced Directives Records FoundNo [...] or prosecute any alcohol or drug abuse patient.[facility] the event this information is protected by the Federal Confidentiality of Alcohol and Drug Abuse Patient Records regulations: The Federal rules restrict any use of the information to criminally investigate or prosecute any alcohol or drug abuse patient.[facility] HospitalIn the event this information is protected by the Federal Confidentiality of Alcohol and Drug Abuse Patient Records regulations: The Federal rules restrict any use of the information to criminally investigate or prosecute any alcohol or drug abuse patient.[facility] HospitalIn the event this information is protected by the Federal Confidentiality of Alcohol and Drug Abuse Patient Records regulations: The Federal rules restrict any use of the information to criminally investigate or prosecute any alcohol or drug abuse patient.[facility] HospitalIn the event this information is protected by the Federal Confidentiality of Alcohol and Drug Abuse Patient Records regulations: The Federal rules restrict any use of the information to criminally investigate or prosecute any alcohol or drug abuse patient.[facility] HospitalIn the event this information is protected by the Federal Confidentiality of Alcohol and Drug Abuse Patient Records regulations: The Federal rules restrict any use of the information to criminally investigate or prosecute any alcohol or drug abuse patient.[facility] HospitalIn the event this information is protected by the Federal Confidentiality of Alcohol and Drug Abuse Patient Records regulations: The Federal rules restrict any use of the information to criminally investigate or prosecute any alcohol or drug abuse patient.[facility] HospitalIn the event this information is protected by the Federal Confidentiality of Alcohol and Drug Abuse Patient Records regulations: The Federal rules restrict any use of the information to criminally investigate or prosecute any alcohol or drug abuse patient.[facility] HospitalIn the event this information is protected by the Federal Confidentiality of Alcohol and Drug Abuse Patient Records regulations: The Federal rules restrict any use of the information to criminally investigate or prosecute any alcohol or drug abuse patient.[facility] HospitalIn the event this information is protected by the Federal Confidentiality of Alcohol and Drug Abuse Patient Records regulations: The Federal rules restrict any use of the information to criminally investigate or prosecute any alcohol or drug abuse patient.[facility] HospitalIn the event this information is protected by the Federal Confidentiality of Alcohol and Drug Abuse Patient Records regulations: The Federal rules restrict any use of the information to criminally investigate or prosecute any alcohol or drug abuse patient.[facility] HospitalIn the event this information is protected by the Federal Confidentiality of Alcohol and Drug Abuse Patient Records regulations: The Federal rules restrict any use of the information to criminally investigate or prosecute any alcohol or drug abuse patient.[facility] HospitalIn the event this information is protected by the Federal Confidentiality of Alcohol and Drug Abuse Patient Records regulations: The Federal rules restrict any use of the information to criminally investigate or prosecute any alcohol or drug abuse patient.[facility] HospitalIn the event this information is protected by the Federal Confidentiality of Alcohol and Drug Abuse Patient Records regulations: The Federal rules restrict any use of the information to criminally investigate or prosecute any alcohol or drug abuse patient.[facility] HospitalIn the event this information is protected by the Federal Confidentiality of Alcohol and Drug Abuse Patient Records regulations: The Federal rules restrict any use of the information to criminally investigate or prosecute any alcohol or drug abuse patient.[facility] HospitalIn the event this information is protected by the Federal Confidentiality of Alcohol and Drug Abuse Patient Records regulations: The Federal rules restrict any use of the information to criminally investigate or prosecute any alcohol or drug abuse patient.[facility] HospitalIn the event this information is protected by the Federal Confidentiality of Alcohol and Drug Abuse Patient Records regulations: The Federal rules restrict any use of the information to criminally investigate or prosecute any alcohol or drug abuse patient.[facility] HospitalIn the event this information is protected by the Federal Confidentiality of Alcohol and Drug Abuse Patient Records regulations: The Federal rules restrict any use of the information to criminally investigate or prosecute any alcohol or drug abuse patient.[facility] HospitalIn the event this information is protected by the Federal Confidentiality of Alcohol and Drug Abuse Patient Records regulations: The Federal rules restrict any use of the information to criminally investigate or prosecute any alcohol or drug abuse patient.[facility] HospitalIn the event this information is protected by the Federal Confidentiality of Alcohol and Drug Abuse Patient Records regulations: The Federal rules restrict any use of the information to criminally investigate or prosecute any alcohol or drug abuse patient.[facility] HospitalIn the event this information is protected by the Federal Confidentiality of Alcohol and Drug Abuse Patient Records regulations: The Federal rules restrict any use of the information to criminally investigate or prosecute any alcohol or drug abuse patient.[facility] HospitalIn the event this information is protected by the Federal Confidentiality of Alcohol and Drug Abuse Patient Records regulations: The Federal rules restrict any use of the information to criminally investigate or prosecute any alcohol or drug abuse patient.[facility] HospitalIn the event this information is protected by the Federal Confidentiality of Alcohol and Drug Abuse Patient Records regulations: The Federal rules restrict any use of the information to criminally investigate or prosecute any alcohol or drug abuse patient.[facility] HospitalIn the event this information is protected by the Federal Confidentiality of Alcohol and Drug Abuse Patient Records regulations: The Federal rules restrict any use of the information to criminally investigate or prosecute any alcohol or drug abuse patient.[facility] HospitalIn the event this information is protected by the Federal Confidentiality of Alcohol and Drug Abuse Patient Records regulations: The Federal rules restrict any use of the information to criminally investigate or prosecute any alcohol or drug abuse patient.[facility] HospitalIn the event this information is protected by the Federal Confidentiality of Alcohol and Drug Abuse Patient Records regulations: The Federal rules restrict any use of the information to criminally investigate or prosecute any alcohol or drug abuse patient.[facility] HospitalIn the event this information is protected by the Federal Confidentiality of Alcohol and Drug Abuse Patient Records regulations: The Federal rules restrict any use of the information to criminally investigate or prosecute any alcohol or drug abuse patient.[facility] HospitalIn the event this information is protected by the Federal Confidentiality of Alcohol and Drug Abuse Patient Records regulations: The Federal rules restrict any use of the information to criminally investigate or prosecute any alcohol or drug abuse patient.[facility] HospitalIn the event this information is protected by the Federal Confidentiality of Alcohol and Drug Abuse Patient Records regulations: The Federal rules restrict any use of the information to criminally investigate or prosecute any alcohol or drug abuse patient.[facility] HospitalIn the event this information is protected by the Federal Confidentiality of Alcohol and Drug Abuse Patient Records regulations: The Federal rules restrict any use of the information to criminally investigate or prosecute any alcohol or drug abuse patient.[facility] HospitalIn the event this information is protected by the Federal Confidentiality of Alcohol and Drug Abuse Patient Records regulations: The Federal rules restrict any use of the information to criminally investigate or prosecute any alcohol or drug abuse patient.[facility] HospitalIn the event this information is protected by the Federal Confidentiality of Alcohol and Drug Abuse Patient Records regulations: The Federal rules restrict any use of the information to criminally investigate or prosecute any alcohol or drug abuse patient.[facility] HospitalIn the event this information is protected by the Federal Confidentiality of Alcohol and Drug Abuse Patient Records regulations: The Federal rules restrict any use of the information to criminally investigate or prosecute any alcohol or drug abuse patient.[facility] HospitalIn the event this information is protected by the Federal Confidentiality of Alcohol and Drug Abuse Patient Records regulations: The Federal rules restrict any use of the information to criminally investigate or prosecute any alcohol or drug abuse patient.[facility] HospitalIn the event this information is protected by the Federal Confidentiality of Alcohol and Drug Abuse Patient Records regulations: The Federal rules restrict any use of the information to criminally investigate or prosecute any alcohol or drug abuse patient.[facility] HospitalIn the event this information is protected by the Federal Confidentiality of Alcohol and Drug Abuse Patient Records regulations: The Federal rules restrict any use of the information to criminally investigate or prosecute any alcohol or drug abuse patient.[facility] HospitalIn the event this information is protected by the Federal Confidentiality of Alcohol and Drug Abuse Patient Records regulations: The Federal rules restrict any use of the information to criminally investigate or prosecute any alcohol or drug abuse patient.[facility] HospitalIn the event this information is protected by the Federal Confidentiality of Alcohol and Drug Abuse Patient Records regulations: The Federal rules restrict any use of the information to criminally investigate or prosecute any alcohol or drug abuse patient.[facility] HospitalIn the event this information is protected by the Federal Confidentiality of Alcohol and Drug Abuse Patient Records regulations: The Federal rules restrict any use of the information to criminally investigate or prosecute any alcohol or drug abuse patient.[facility] HospitalIn the event this information is protected by the Federal Confidentiality of Alcohol and Drug Abuse Patient Records regulations: The Federal rules restrict any use of the information to criminally investigate or prosecute any alcohol or drug abuse patient.[facility] HospitalIn the event this information is protected by the Federal Confidentiality of Alcohol and Drug Abuse Patient Records regulations: The Federal rules restrict any use of the information to criminally investigate or prosecute any alcohol or drug abuse patient.[facility] HospitalIn the event this information is protected by the Federal Confidentiality of Alcohol and Drug Abuse Patient Records regulations: The Federal rules restrict any use of the information to criminally investigate or prosecute any alcohol or drug abuse patient.[facility] HospitalIn the event this information is protected by the Federal Confidentiality of Alcohol and Drug Abuse Patient Records regulations: The Federal rules restrict any use of the information to criminally investigate or prosecute any alcohol or drug abuse patient.[facility] HospitalIn the event this information is protected by the Federal Confidentiality of Alcohol and Drug Abuse Patient Records regulations: The Federal rules restrict any use of the information to criminally investigate or prosecute any alcohol or drug abuse patient.[facility] HospitalIn the event this information is protected by the Federal Confidentiality of Alcohol and Drug Abuse Patient Records regulations: The Federal rules restrict any use of the information to criminally investigate or prosecute any alcohol or drug abuse patient.[facility] HospitalIn the event this information is protected by the Federal Confidentiality of Alcohol and Drug Abuse Patient Records regulations: The Federal rules restrict any use of the information to criminally investigate or prosecute any alcohol or drug abuse patient.[facility] HospitalIn the event this information is protected by the Federal Confidentiality of Alcohol and Drug Abuse Patient Records regulations: The Federal rules restrict any use of the information to criminally investigate or prosecute any alcohol or drug abuse patient.[facility] HospitalIn the event this information is protected by the Federal Confidentiality of Alcohol and Drug Abuse Patient Records regulations: The Federal rules restrict any use of the information to criminally investigate or prosecute any alcohol or drug abuse patient.[facility] HospitalIn the event this information is protected by the Federal Confidentiality of Alcohol and Drug Abuse Patient Records regulations: The Federal rules restrict any use of the information to criminally investigate or prosecute any alcohol or drug abuse patient.[facility] HospitalIn the event this information is protected by the Federal Confidentiality of Alcohol and Drug Abuse Patient Records regulations: The Federal rules restrict any use of the information to criminally investigate or prosecute any alcohol or drug abuse patient.[facility] HospitalIn the event this information is protected by the Federal Confidentiality of Alcohol and Drug Abuse Patient Records regulations: The Federal rules restrict any use of the information to criminally investigate or prosecute any alcohol or drug abuse patient.[facility] HospitalIn the event this information is protected by the Federal Confidentiality of Alcohol and Drug Abuse Patient Records regulations: The Federal rules restrict any use of the information to criminally investigate or prosecute any alcohol or drug abuse patient.[facility] HospitalIn the event this information is protected by the Federal Confidentiality of Alcohol and Drug Abuse Patient Records regulations: The Federal rules restrict any use of the information to criminally investigate or prosecute any alcohol or drug abuse patient.[facility] HospitalIn the event this information is protected by the Federal Confidentiality of Alcohol and Drug Abuse Patient Records regulations: The Federal rules restrict any use of the information to criminally investigate or prosecute any alcohol or drug abuse patient.[facility] HospitalIn the event this information is protected by the Federal Confidentiality of Alcohol and Drug Abuse Patient Records regulations: The Federal rules restrict any use of the information to criminally investigate or prosecute any alcohol or drug abuse patient.[facility] HospitalIn the event this information is protected by the Federal Confidentiality of Alcohol and Drug Abuse Patient Records regulations: The Federal rules restrict any use of the information to criminally investigate or prosecute any alcohol or drug abuse patient.[facility] HospitalIn the event this information is protected by the Federal Confidentiality of Alcohol and Drug Abuse Patient Records regulations: The Federal rules restrict any use of the information to criminally investigate or prosecute any alcohol or drug abuse patient.[facility] HospitalIn the event this information is protected by the Federal Confidentiality of Alcohol and Drug Abuse Patient Records regulations: The Federal rules restrict any use of the information to criminally investigate or prosecute any alcohol or drug abuse patient.[facility] HospitalIn the event this information is protected by the Federal Confidentiality of Alcohol and Drug Abuse Patient Records regulations: The Federal rules restrict any use of the information to criminally investigate or prosecute any alcohol or drug abuse patient.[facility] HospitalIn the event this information is protected by the Federal Confidentiality of Alcohol and Drug Abuse Patient Records regulations: The Federal rules restrict any use of the information to criminally investigate or prosecute any alcohol or drug abuse patient.[facility] HospitalIn the event this information is protected by the Federal Confidentiality of Alcohol and Drug Abuse Patient Records regulations: The Federal rules restrict any use of the information to criminally investigate or prosecute any alcohol or drug abuse patient.[facility] HospitalIn the event this information is protected by the Federal Confidentiality of Alcohol and Drug Abuse Patient Records regulations: The Federal rules restrict any use of the information to criminally investigate or prosecute any alcohol or drug abuse patient.[facility] HospitalIn the event this information is protected by the Federal Confidentiality of Alcohol and Drug Abuse Patient Records regulations: The Federal rules restrict any use of the information to criminally investigate or prosecute any alcohol or drug abuse patient.[facility] HospitalIn the event this information is protected by the Federal Confidentiality of Alcohol and Drug Abuse Patient Records regulations: The Federal rules restrict any use of the information to criminally investigate or prosecute any alcohol or drug abuse patient.[facility] HospitalIn the event this information is protected by the Federal Confidentiality of Alcohol and Drug Abuse Patient Records regulations: The Federal rules restrict any use of the information to criminally investigate or prosecute any alcohol or drug abuse patient.[facility] HospitalIn the event this information is protected by the Federal Confidentiality of Alcohol and Drug Abuse Patient Records regulations: The Federal rules restrict any use of the information to criminally investigate or prosecute any alcohol or drug abuse patient.[facility] HospitalIn the event this information is protected by the Federal Confidentiality of Alcohol and Drug Abuse Patient Records regulations: The Federal rules restrict any use of the information to criminally investigate or prosecute any alcohol or drug abuse patient.[facility] HospitalIn the event this information is protected by the Federal Confidentiality of Alcohol and Drug Abuse Patient Records regulations: The Federal rules restrict any use of the information to criminally investigate or prosecute any alcohol or drug abuse patient.[facility] HospitalIn the event this information is protected by the Federal Confidentiality of Alcohol and Drug Abuse Patient Records regulations: The Federal rules restrict any use of the information to criminally investigate or prosecute any alcohol or drug abuse patient.[facility] HospitalIn the event this information is protected by the Federal Confidentiality of Alcohol and Drug Abuse Patient Records regulations: The Federal rules restrict any use of the information to criminally investigate or prosecute any alcohol or drug abuse patient.[facility] HospitalIn the event this information is protected by the Federal Confidentiality of Alcohol and Drug Abuse Patient Records regulations: The Federal rules restrict any use of the information to criminally investigate or prosecute any alcohol or drug abuse patient.[facility] HospitalIn the event this information is protected by the Federal Confidentiality of Alcohol and Drug Abuse Patient Records regulations: The Federal rules restrict any use of the information to criminally investigate or prosecute any alcohol or drug abuse patient.[facility] HospitalIn the event this information is protected by the Federal Confidentiality of Alcohol and Drug Abuse Patient Records regulations: The Federal rules restrict any use of the information to criminally investigate or prosecute any alcohol or drug abuse patient.[facility] HospitalIn the event this information is protected by the Federal Confidentiality of Alcohol and Drug Abuse Patient Records regulations: The Federal rules restrict any use of the information to criminally investigate or prosecute any alcohol or drug abuse patient.[facility] HospitalIn the event this information is protected by the Federal Confidentiality of Alcohol and Drug Abuse Patient Records regulations: The Federal rules restrict any use of the information to criminally investigate or prosecute any alcohol or drug abuse patient.[facility] HospitalIn the event this information is protected by the Federal Confidentiality of Alcohol and Drug Abuse Patient Records regulations: The Federal rules restrict any use of the information to criminally investigate or prosecute any alcohol or drug abuse patient.[facility] HospitalIn the event this information is protected by the Federal Confidentiality of Alcohol and Drug Abuse Patient Records regulations: The Federal rules restrict any use of the information to criminally investigate or prosecute any alcohol or drug abuse patient.[facility] HospitalIn the event this information is protected by the Federal Confidentiality of Alcohol and Drug Abuse Patient Records regulations: The Federal rules restrict any use of the information to criminally investigate or prosecute any alcohol or drug abuse patient.[facility] HospitalIn the event this information is protected by the Federal Confidentiality of Alcohol and Drug Abuse Patient Records regulations: The Federal rules restrict any use of the information to criminally investigate or prosecute any alcohol or drug abuse patient.[facility] HospitalIn the event this information is protected by the Federal Confidentiality of Alcohol and Drug Abuse Patient Records regulations: The Federal rules restrict any use of the information to criminally investigate or prosecute any alcohol or drug abuse patient.[facility] HospitalIn the event this information is protected by the Federal Confidentiality of Alcohol and Drug Abuse Patient Records regulations: The Federal rules restrict any use of the information to criminally investigate or prosecute any alcohol or drug abuse patient.[facility] HospitalIn the event this information is protected by the Federal Confidentiality of Alcohol and Drug Abuse Patient Records regulations: The Federal rules restrict any use of the information to criminally investigate or prosecute any alcohol or drug abuse patient.[facility] HospitalIn the event this information is protected by the Federal Confidentiality of Alcohol and Drug Abuse Patient Records regulations: The Federal rules restrict any use of the information to criminally investigate or prosecute any alcohol or drug abuse patient.[facility] HospitalIn the event this information is protected by the Federal Confidentiality of Alcohol and Drug Abuse Patient Records regulations: The Federal rules restrict any use of the information to criminally investigate or prosecute any alcohol or drug abuse patient.[facility] HospitalIn the event this information is protected by the Federal Confidentiality of Alcohol and Drug Abuse Patient Records regulations: The Federal rules restrict any use of the information to criminally investigate or prosecute any alcohol or drug abuse patient.[facility] HospitalIn the event this information is protected by the Federal Confidentiality of Alcohol and Drug Abuse Patient Records regulations: The Federal rules restrict any use of the information to criminally investigate or prosecute any alcohol or drug abuse patient.[facility] HospitalIn the event this information is protected by the Federal Confidentiality of Alcohol and Drug Abuse Patient Records regulations: The Federal rules restrict any use of the information to criminally investigate or prosecute any alcohol or drug abuse patient.[facility] HospitalIn the event this information is protected by the Federal Confidentiality of Alcohol and Drug Abuse Patient Records regulations: The Federal rules restrict any use of the information to criminally investigate or prosecute any alcohol or drug abuse patient.[facility] Reason for Visit (unrecogniz ed section and [...] in both knees, unspecified chronicity Richy Dominguez, GERIATRIC CASE MANAGER [address] [place] [address] Lilly Rodas, GERIATRIC CASE MANAGER [address] [place] [address] Referral ID Status Reason Start Date Expiration Date Visits Re quested Visits Authorized [id number] Closed 06/04/2023 06/03/2024 1 1 Reason Comments F/U 6 months Specialty Diagnoses / Procedures Referred By Contac t Referred To Contact CT IMAGING Diagnoses Elevated LDL cholesterol level Encounter for screening for cardiovascular disorders Family history of coronary artery disease in mother Procedures CT CALCIUM SCORING SELF PAY UNLISTED COMPUTED TOMOGRAPHY PROCEDURE Eriberto Tovar MD [address] [place] [address] [place] [address] Referral ID Status Reason Start Date Expiration Date V isits Requested Visits Authorized [id number] Closed Auto-Generate d Referral 07/09/2023 08/07/2024 1 [...] Reason Comments Pre-Surgical Clearance Form Reason Comments [facility] requesting records Reason Comments Follow Up Reason Comments Faxed to [facility] Reason Comments Orders Reason Comments URI headache and body ac hes and fever off and on started 4 days ago Reason Comments Recheck Reason Comments Hospital F/U Reason Comments F/U 6 Month Reason Comments Forms Care Teams (unrecognized sec tion and content) Community Health Nurse Relationship Specialty Start Date End Date Eriberto Tovar MD [address] [place] [address] PCP - General Internal Medicine 08/21/10 Community Health Nurse Relationship Specialty Start Date End Date Eriberto Tovar MD [address] [place], [place] [address] PCP - General Internal Medicine 08/21/10 Community Health Nurse Relationship Specialty Start Date End Date Eriberto Tovar MD [facility] [place], [place] [address] PCP - General Internal Medicine 08/21/10 Community Health Nurse Relationship Specialty Start Date End Date Eriberto Tovar MD [facility] [place] [address] PCP - General Internal Medicine 08/21/10 Community Health Nurse Relationship Specialty Start Date End Date Eriberto Tovar MD [address] [place] [address] PCP - General Internal Medicine 08/21/10 Community Health Nurse Relationship Specialty Start Date End Date Eriberto Tovar MD [address] [place] [address] PCP - General Internal Medicine 08/21/10 Community Health Nurse Relationship Specialty Start Date End Date Eriberto Tovar MD [address] [place] [address] PCP - General Internal Medicine 08/21/10 Community Health Nurse Relationship Specialty [place] [address] [place] [address], [place] [address] PCP - General Internal Medicine 08/21/10 Community Health Nurse Relationship Specialty Start Date End Date Eriberto Tovar MD [address] [place] [address] PCP - General Internal Medicine 08/21/10 Community Health Nurse Relationship Specialty Start Date End Date Eriberto Tovar MD [address] [place] [address] PCP - General Internal Medicine 08/21/10 Community Health Nurse Relationship Specialty Start Date End Date Eriberto Tovar MD [address] [place] [address] PCP - General Internal Medicine 08/21/10 Community Health Nurse Relationship Specialty Start Date End Date Eriberto Tovar MD [address] [place] [address] PCP - General Internal Medicine 08/21/10 Community Health Nurse Relationship Specialty Start Date End Date Eriberto Tovar MD [address] [place] [address] PCP - General Internal Medicine 08/21/10 Community Health Nurse Relationship Specialty Start Date End Date Eriberto Tovar MD [address] [place] [address] PCP - General Internal Medicine 08/21/10 Community Health Nurse Relationship Specialty Start Date End Date Eriberto Tovar MD [address] [place] [address] PCP - General Internal Medicine 08/21/10 Community Health Nurse Relationship Specialty Start Date End Date Eriberto Tovar MD [address] [place] [address] PCP - General Internal Medicine 08/21/10 Community Health Nurse Relationship Specialty Start Date End Date Eriberto Tovar MD [address] [place] [address] PCP - General Internal Medicine 08/21/10 Community Health Nurse Relationship Specialty Start Date End Date Eriberto Tovar MD [address] [place] [address] PCP - General Internal Medicine 08/21/10 Community Health Nurse Relationship Specialty Start Date End Date Eriberto Tovar MD [address] [place] [address] PCP - General Internal Medicine 08/21/10 Community Health Nurse Relationship Specialty Start Date End Date Eriberto Tovar MD [address] [place] [address] PCP - General Internal Medicine 08/21/10 Community Health Nurse Relationship Specialty Start Date End Date Eriberto Tovar MD [address] [place] [address] PCP - General Internal Medicine 08/21/10 Community Health Nurse Relationship Specialty Start Date End Date Eriberto Tovar MD [address] [place] [address] PCP - General Internal Medicine 06/14/23 Community Health Nurse Relationship Specialty Start Date End Date Eriberto Tovar MD [address] [place] [address] PCP - General Internal Medicine 08/21/10 Community Health Nurse Relationship Specialty Start Date End Date Eriberto Tovar MD [address] [place] [address] PCP - General Internal Medicine 08/21/10 Community Health Nurse Relationship Specialty Start Date End Date Eriberto Tovar MD [address] [place] [address] PCP - General Internal Medicine 08/21/10 Community Health Nurse Relationship Specialty Start Date End Date Eriberto Tovar MD [address] [place] [address] PCP - General Internal Medicine 08/21/10 Community Health Nurse Relationship Specialty Start Date End Date Eriberto Tovar MD [address] [place] [address] PCP - General Internal Medicine 08/21/10 Community Health Nurse Relationship Specialty Start Date End Date Eriberto Tovar MD [address] [place] [address] PCP - General Internal Medicine 08/21/10 Community Health Nurse Relationship Specialty Start Date End Date Eriberto Tovar MD [address] [place] [address] PCP - General Internal Medicine 08/21/10 Community Health Nurse Relationship Specialty Start Date End Date Eriberto Tovar MD [address] [place] [address] PCP - General Internal Medicine 08/21/10 Community Health Nurse Relationship Specialty Start Date End Date Eriberto Tovar MD [address] [place] [address] PCP - General Internal Medicine 08/21/10 Community Health Nurse Relationship Specialty Start Date End Date Eriberto Tovar MD [address] [place] [address] PCP - General Internal Medicine 08/21/10 Community Health Nurse Relationship Specialty Start Date End Date Eriberto Tovar MD [address] [place] [address] PCP - General Internal Medicine 08/21/10 Community Health Nurse Relationship Specialty Start Date End Date Eriberto Tovar MD [address] [place] [address] PCP - General Internal Medicine 08/21/10 Community Health Nurse Relationship Specialty Start Date End Date Eriberto Tovar MD [address] [place] [address] PCP - General Internal Medicine 08/21/10 Community Health Nurse Relationship Specialty Start Date End Date Eriberto Tovar MD [address] [place] [address] PCP - General Internal Medicine 08/21/10 Community Health Nurse Relationship Specialty Start Date End Date Eriberto Tovar MD [address] [place] [address] PCP - General Internal Medicine 08/21/10 Sanjay Yates, CHEERLEADING COACH.MEMORY CARE DIRECTOR [address] [place] [address] Utilities Service Investigator Internal Medicine 03/13/24 Richy Dominguez CHEERLEADING COACH.GERIATRIC CASE MANAGER [address] [place] [address] Utilities Service Investigator Internal Medicine 03/13/24 Community Health Nurse Relationship Specialty Start Date End Date Eriberto Tovar MD [address] [place] [address] PCP - General Internal Medicine 08/21/10 Sanjay Yates, CHEERLEADING COACH.MEMORY CARE DIRECTOR [address] [place] [address] Utilities Service Investigator Internal Medicine 03/13/24 Richy Dominguez CHEERLEADING COACH.GERIATRIC CASE MANAGER [address] [place] [address] [facility] Internal Medicine 03/13/24 Community Health Nurse Relationship Specialty Start Date End Date Eriberto Tovar MD [address] [place] [address] PCP - General Internal Medicine 08/21/10 Sanjay Yates, CHEERLEADING COACH.MEMORY CARE DIRECTOR [address] [place] [address] Utilities Service Investigator Internal Medicine 03/13/24 Richy Dominguez APRN.GERIATRIC CASE MANAGER [address] [place] [address] Utilities Service Investigator Internal Medicine 03/13/24 Community Health Nurse Relationship Specialty Start Date End Date Eriberot Tovar MD [address] [place] [address] PCP - General Internal Medicine 08/21/10 Sanjay Yates APRN.MEMORY CARE DIRECTOR [address] [place] [address] Utilities Service Investigator Internal Medicine 03/13/24 Richy Dominguez APRN.GERIATRIC CASE MANAGER [address] [place] [address] Utilities Service Investigator Internal Medicine 03/13/24 Community Health Nurse Relationship Specialty Start Date End Date Eriberto Tovar MD [address] [place] [address] PCP - General Internal Medicine 08/21/10 Sanjay Yates APRN.MEMORY CARE DIRECTOR [address] [place] [address] Utilities Service Investigator Internal Medicine 03/13/24 Richy Dominguez APRN.GERIATRIC CASE MANAGER [address] [place] [address] Utilities Service Investigator Internal Medicine 03/13/24 Community Health Nurse Relationship Specialty Start Date End Date Eriberto Tovar MD [address] [place] [address] PCP - General Internal Medicine 08/21/10 Sanjay Yates, CARLOS.MEMORY CARE DIRECTOR [address] [place] [address] Utilities Service Investigator Internal Medicine 03/13/24 Richy Dominguez APRN.GERIATRIC CASE MANAGER [address] [place] [address] Utilities Service Investigator Internal Medicine 03/13/24 Community Health Nurse Relationship Specialty Start Date End Date Eriberto Tovar MD [address] [facility] [place] [address] PCP - General Internal Medicine 08/21/10 Sanjay Yates CHEERLEADING COACH.MEMORY CARE DIRECTOR [address] [place] [address] Utilities Service Investigator Internal Medicine 03/13/24 Richy Dominguez APRN.GERIATRIC CASE MANAGER [address] [facility] [place] [address] Utilities Service Investigator Internal Medicine 03/13/24 Community Health Nurse Relationship Specialty Start Date End Date Eriberto Tovar MD [address] [place] [address] PCP - General Internal Medicine 08/21/10 Sanjay Yates CHEERLEADING COACH.MEMORY CARE DIRECTOR [address] [place] [address] Utilities Service Investigator Internal Medicine 03/13/24 Richy Dominguez CHEERLEADING COACH.GERIATRIC CASE MANAGER [address] [place] [address] Utilities Service Investigator Internal Medicine 03/13/24 Community Health Nurse Relationship Specialty Start Date End Date Eriberto Tovar MD [address] [place] [address] PCP - General Internal Medicine 08/21/10 Sanjay Yates, CHEERLEADING COACH.MEMORY CARE DIRECTOR [address] [place] [address] Utilities Service Investigator Internal Medicine 03/13/24 Richy Dominguez CHEERLEADING COACH.GERIATRIC CASE MANAGER [address] [place] [address] [facility] Internal Medicine 03/13/24 06/23/24 Community Health Nurse Relationship Specialty Start Date End Date Eriberto Tovar MD [address] [place] [address] PCP - General Internal Medicine 08/21/10 Sanjay Yates, CHEERLEADING COACH.MEMORY CARE DIRECTOR [address] [place] [address] [facility] Internal Medicine 03/13/24 Richy Dominguez, CHEERLEADING COACH.GERIATRIC CASE MANAGER [address] [place] [address] [facility] Internal Medicine 06/27/24 Community Health Nurse Relationship Specialty Start Date End Date Eriberto Tovar MD [address] [place] [address] PCP - General Internal Medicine 08/21/10 Sanjay Yates, CHEERLEADING COACH.MEMORY CARE DIRECTOR [address] [place] [address] [facility] Internal Medicine 03/13/24 Richy Dominguez CHEERLEADING COACH.GERIATRIC CASE MANAGER [address] [place] [address] [facility] Internal Medicine 06/27/24 Community Health Nurse Relationship Specialty Start Date End Date Eriberto Tovar MD [address] [place] [address] PCP - General Internal Medicine 08/21/10 Sanjay Yates, CHEERLEADING COACH.MEMORY CARE DIRECTOR [address] [place] [address] Utilities Service Investigator Internal Medicine 03/13/24 Richy Dominguez CHEERLEADING COACH.GERIATRIC CASE MANAGER [address] [place] [address] [facility] Internal Medicine 06/27/24 Community Health Nurse Relationship Specialty Start Date End Date Eriberto Tovar MD [address] [place] [address] PCP - General Internal Medicine 08/21/10 Sanjay Yates, CHEERLEADING COACH.MEMORY CARE DIRECTOR [address] [place] [address] [facility] Internal Medicine 03/13/24 Richy Dominguez CHEERLEADING COACH.GERIATRIC CASE MANAGER [address] [place] [address] [facility] Internal Medicine 06/27/24 Community Health Nurse Relationship Specialty Start Date End Date Eriberto Tovar MD [address] [place] [address] PCP - General Internal Medicine 08/21/10 Sanjay Yates, CHEERLEADING COACH.MEMORY CARE DIRECTOR [address] [place] [address] Utilities Service Investigator Internal Medicine 03/13/24 Richy Dominguez APRN.GERIATRIC CASE MANAGER [address] [place] [address] Utilities Service Investigator Internal Medicine 06/27/24 Community Health Nurse Relationship Specialty Start Date End Date Eriberto Tovar MD [address] [place] [address] PCP - General Internal Medicine 08/21/10 Sanjay Yates APRN.MEMORY CARE DIRECTOR [address] [place] [address] Utilities Service Investigator Internal Medicine 03/13/24 Richy Dominguez APRN.GERIATRIC CASE MANAGER [address] [place] [address] Utilities Service Investigator Internal Medicine 06/27/24 Community Health Nurse Relationship Specialty Start Date End Date Erbierto Tovar MD [address] [place] [address] PCP - General Internal Medicine 08/21/10 Sanjay Yates, CHEERLEADING COACH.MEMORY CARE DIRECTOR [address] [place] [address] Utilities Service Investigator Internal Medicine 03/13/24 Richy Dominguez APRN.GERIATRIC CASE MANAGER [address] [place] [address] Utilities Service Investigator Internal Medicine 06/27/24 Community Health Nurse Relationship Specialty Start Date End Date Eriberto Tovar MD [address] [place] [address] PCP - General Internal Medicine 08/21/10 Sanjay Yates, CHEERLEADING COACH.MEMORY CARE DIRECTOR [address] [place] [address] Utilities Service Investigator Internal Medicine 03/13/24 Richy Dominguez APRN.GERIATRIC CASE MANAGER [address] [facility] [place] [address] Utilities Service Investigator Internal Medicine 06/27/24 Community Health Nurse Relationship Specialty Start Date End Date Eriberto Tovar MD [address] [place] [address] PCP - General Internal Medicine 08/21/10 Sanjay Yates, CHEERLEADING COACH.MEMORY CARE DIRECTOR [address] [facility] [place] [address] Utilities Service Investigator Internal Medicine 03/13/24 Richy Dominguez APRN.GERIATRIC CASE MANAGER [address] [facility] [place] [address] Utilities Service Investigator Internal Medicine 06/27/24 Community Health Nurse Relationship Specialty Start Date End Date Eriberto Tovar MD [address] [place] [address] PCP - General Internal Medicine 08/21/10 Sanjay Yates CHEERLEADING COACH.MEMORY CARE DIRECTOR [address] [facility] [place] [address] Utilities Service Investigator Internal Medicine 03/13/24 Richy Dominguez CHEERLEADING COACH.GERIATRIC CASE MANAGER [address] [facility] [place] [address] Utilities Service Investigator Internal Medicine 06/27/24 Community Health Nurse Relationship Specialty Start Date End Date Eriberto Tovar MD [address] [facility] [place] [address] PCP - General Internal Medicine 08/21/10 Sanjay Yates, CHEERLEADING COACH.MEMORY CARE DIRECTOR [address] [place] [address] Utilities Service Investigator Internal Medicine 03/13/24 Richy Dominguez CHEERLEADING COACH.GERIATRIC CASE MANAGER [address] [place] [address] [facility] Internal Medicine 06/27/24 Community Health Nurse Relationship Specialty Start Date End Date Eriberto Tovar MD [address] [place] [address] PCP - General Internal Medicine 08/21/10 Richy Dominguez CHEERLEADING COACH.GERIATRIC CASE MANAGER [address] [place] [address] Utilities Service Investigator Internal Medicine 06/27/24 Sanjay Yates, CHEERLEADING COACH.MEMORY CARE DIRECTOR [address] [place] [address] Utilities Service Investigator Internal Medicine 08/23/24 Community Health Nurse Relationship Specialty Start Date End Date Eriberto Tovar MD [address] [place] [address] PCP - General Internal Medicine 08/21/10 Sanjay Yates, CHEERLEADING COACH.MEMORY CARE DIRECTOR [address] [place] [address] Utilities Service Investigator Internal Medicine 03/13/24 08/22/24 Richy Dominguez APRN.GERIATRIC CASE MANAGER [address] [place] [address] Utilities Service Investigator Internal Medicine 06/27/24 Sanjay Yates, CARLOS.MEMORY CARE DIRECTOR [address] [place] [address] Utilities Service Investigator Internal Medicine 08/23/24 Community Health Nurse Relationship Specialty Start Date End Date Eriberto Tovar MD [address] [place] [address] PCP - General Internal Medicine 08/21/10 Richy Dominguez APRN.GERIATRIC CASE MANAGER [address] [place] [address] Utilities Service Investigator Internal Medicine 06/27/24 Sanjay Yates APRN.MEMORY CARE DIRECTOR [address] [place] [address] Utilities Service Investigator Internal Medicine 08/23/24 Community Health Nurse Relationship Specialty Start Date End Date Eriberto Tovar MD [address] [place] [address] PCP - General Internal Medicine 08/21/10 Sanjay Yates APRN.MEMORY CARE DIRECTOR [address] [place] [address] Utilities Service Investigator Internal Medicine 03/13/24 08/22/24 Richy Dominguez APRN.GERIATRIC CASE MANAGER [address] [place] [address] Utilities Service Investigator Internal Medicine 06/27/24 Sanjay Yates APRN.MEMORY CARE DIRECTOR [address] [place] [address] Utilities Service Investigator Internal Medicine 08/23/24 Community Health Nurse Relationship Specialty Start Date End Date Eriberto Tovar MD [address] [place] [address] PCP - General Internal Medicine 08/21/10 Richy Dominguez CHEERLEADING COACH.GERIATRIC CASE MANAGER [address] [place] [address] Utilities Service Investigator Internal Medicine 06/27/24 Sanjay Yates, CHEERLEADING COACH.MEMORY CARE DIRECTOR [address] [place] [address] Utilities Service Investigator Internal Medicine 08/23/24 Community Health Nurse Relationship Specialty Start Date End Date Eriberto Tovar MD [address] [place] [address] PCP - General Internal Medicine 08/21/10 Richy Dominguez CHEERLEADING COACH.GERIATRIC CASE MANAGER [address] [place] [address] Utilities Service Investigator Internal Medicine 06/27/24 Sanjay Yates, CHEERLEADING COACH.MEMORY CARE DIRECTOR [address] [place] [address] Utilities Service Investigator Internal Medicine 08/23/24 Community Health Nurse Relationship Specialty Start Date End Date Eriberto Tovar MD [address] [place] [address] PCP - General Internal Medicine 08/21/10 Richy Dominguez CHEERLEADING COACH.GERIATRIC CASE MANAGER [address] [place] [address] [facility] Internal Medicine 06/27/24 YatesSanjay APRN.MEMORY CARE DIRECTOR [address] [place] [address] [facility] Internal Medicine 08/23/24 INFORMATION SOURCE (unrecogn ized section and content) DATE CREATED AUTHOR 06/19/2023 [facility] DATE CREATED AUTHOR AUTHOR'S ORGANIZ ATION 07/31/2023 [facility] nt DATE CREATED AUTHOR AUTHOR'S ORGANIZ ATION 11/04/2024 [facility] DATE CREATED AUTHOR AUTHOR'S ORGANIZ ATION 12/20/2024 [facility] DATE CREATED AUTHOR AUTHOR'S ORGANIZ ATION 02/06/2025 [facility] FOR RECORDS PERTAINING TO PATIENTS WHO ARE [...] BE BASED ON THE PRIMARY CLINICAL RECORDS. [employer] provides no warranty or guarantee of the accuracy or completeness of information in this document.
--- NOTE | 2025-03-03 18:45 | RAD_ITS ---
PROCEDURE: KNEE 1 OR 2 VIEWS 03/03/2025 REASON FOR EXAM: PAIN, SWELLING TECHNIQUE: Procedure Code: RADK Modality: DX Procedure: KNEE 1 OR 2 VIEWS Laterality: COMPARISON: None. FINDINGS: Bones: No acute bony abnormalities. Joints: Multi compartmental joint space narrowing with sclerosis and marginal osteophytes consistent with osteoarthritis. Effusion: Large knee effusion. Soft tissues: No soft tissue abnormalities. RAD/Knee 1 or 2 Views IMPRESSION: Advanced osteoarthritis of the left knee. Large knee effusion. No acute bony abnormalities. Reading Location: [id number]
[2025-03-03 20:04] VITALS: BP 128/56; PULSE 70; RESP 18; O2SAT 96
[2025-03-03] MEDS: Lidocaine 1% (20 ml mdv) 20 ML Vial 4 ML INFILT (20:30)
[2025-03-03 21:08] VITALS: BP 130/61; PULSE 70; RESP 18; TEMP 36.8; O2SAT 96
== END 2025-03-03 21:30 | disposition home or self-care (01) ==
PROVIDERS: Emergency Provider Emergency Medicine; PCP Internal Medicine; Visit Provider Emergency Medicine
DX: M17.12 Unilateral primary osteoarthritis, left knee (principal); E78.00 Pure hypercholesterolemia, unspecified; I10 Essential (primary) hypertension; M25.062 Hemarthrosis, left knee; Z86.14 Personal history of Methicillin resistant Staphylococcus aureus infection; Z98.1 Arthrodesis status
CPT/HCPCS: 20610; 73560; 87070; 87075; 87205; 96372; 99285; A4216